=== PATIENT | male | born 1950 | race Caucasian/White ===

== ENCOUNTER 2024-08-22 19:50 | Inpatient (IN) | payer MEDICARE, OTHER, SELFPAY ==
[2024-08-22] VITALS (7 sets, daily range): BP systolic 132–159; BP diastolic 80–120; PULSE 96–124; RESP 15–27; TEMP 36.1; O2SAT 92–94
--- NOTE | ~2024-08-22 | CT_ITS ---
CT brain wo con Ordering provider: Lachlele Cox DO History: 74 years Male with . head trauma . Comparison: None. Technique: CT of the head without contrast. Radiation reduction technique utilized.The dose-length product was 983.67 mGy-cm. FINDINGS: BRAIN PARENCHYMA AND CSF SPACES: Mild leukoaraiosis and diffuse cortical atrophy. Mild atheromatous d isease. No midline shift, mass effect or hemorrhage. The brain parenchyma and CSF spaces are otherwi se normal. VISUALIZED PARANASAL SINUSES: Well aerated. MASTOIDS: Well aerated. BONES: The bones appear intact. SOFT TISSUES: Visualized nasopharynx is normal. Superficial soft tissues are normal. IMPRESSION: No acute intracranial findings. Reviewed, dictated and finalized at location A.
--- NOTE | ~2024-08-22 | XR_ITS ---
Upright portable view of the abdomen Clinical history: NG tube placement Findings: NG tube is in satisfactory position. Dilated small bowel loops suggest small bowel obstruct ion. No free air. No abnormal mass lesion or calcification is seen. Osseous structures are intact. Impression: NG tube in satisfactory position. Probable small bowel obstruction. Reviewed, dictated and finalized at [facility]. Impression: NG tube in satisfactory position. Probable small bowel obstruction.
--- NOTE | ~2024-08-22 | CT_ITS ---
EXAMINATION: CTA chest PE abdomen pel DATE: 08/22/2024 22:07 INDICATION: sob, elev trop/dimer TECHNIQUE: Computed tomography angiography (CTA) of the chest was performed with 100 mL Omnipaque-350 intravenous contrast timed to evaluate the pulmonary arteries, followed by portal venous phase imagi ng of the abdomen and pelvis. Coronal maximum intensity projection 3D-reconstructions were created by the technologist. The dose-length product (DLP) was 1263.27 mGy-cm. Automated exposure control and i terative reconstruction technique were employed. COMPARISON: X-ray chest, same date. FINDINGS: CHEST: Lung parenchyma and airways: Centrilobular nodular and peribronchovascular consolidation in the lingu la. Bilateral dependent atelectasis. Patent airways. Pleura: Moderate bilateral pleural fluid collections. Thoracic inlet, axillae and chest wall: No thyroid mass. Gynecomastia, asymmetrically larger on the r ight. Thoracic aorta: No significant dilation. No dissection. Mediastinum: Dilated central pulmonary arteries as can be seen with pulmonary arterial hypertension. Heart and pericardium: Marked cardiomegaly. Coronary artery calcifications: Mild. Thoracic bones: No acute osseous finding. Pulmonary arteries: Study quality: Motion artifact obscures the segmental and subsegmental left lower lobe pulmonary arteries. No pulmonary emboli detected in the adequately visualized vessels. ABDOMEN/PELVIS: Liver: Subcentimeter hypodensities, too small to characterize but most likely represent cysts. Biliary/Gallbladder: Gallbladder is contracted with mild pericholecystic fluid, presumably related to the ascites. No bile duct dilation. Pancreas: No mass or duct dilation. Spleen: Multiple low densities in the spleen. Adrenals:No mass. Kidneys: Multiple bilateral indeterminate density renal lesions. GI tract: Marked gastric distention. Multiple loops of proximal and mid dilated small bowel, with int erloop fluid, without pneumatosis or enhancement change. Transition point in the umbilical hernia carlie endix not confidently visualized. Diverticulosis without diverticulitis. Mesentery/Peritoneum: No mass or free air. Small volume mesenteric fluid. Retroperitoneum: No mass. Atherosclerotic calcifications of intra-abdominal arterial vessels. 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 Soft Tissues: Moderate umbilical hernia containing a loop of small bowel. Small bilateral fat and flu id containing inguinal hernias with partial herniation of a portion of large bowel in the left inguin al hernia. Mild body wall edema. Abdominopelvic bones: No acute osseous finding. IMPRESSION: Subsegmental lingular consolidation suspicious for pneumonia or aspiration. Segmental and subsegmental left lower lobe pulmonary arteries not adequately assessed due to motion. No pulmonary embolus detected in the adequately visualized pulmonary arteries. Moderate bilateral pleural effusions. Asymmetric right gynecomastia, consider nonemergent mammography and breast ultrasound. Multiple splenic hypodensities, presumably related to cysts or hemangiomas. Infection or metastatic d isease considered less likely. Bilateral indeterminate renal lesions, recommend nonemergent MRI or CT with and without contrast for further characterization. Small bowel obstruction, transition point at a moderate sized umbilical hernia that contains a loop o f small bowel. Mild ascites. Reviewed, dictated and finalized at location K. IMPRESSION: Subsegmental lingular consolidation suspicious for pneumonia or aspiration. Segmental and subsegmental left lower lobe pulmonary arteries not adequately as sessed due to motion. No pulmonary embolus detected in the adequately visualize d pulmonary arteries. Moderate bilateral pleural effusions. Asymmetric right gynecomastia, consider nonemergent mammography and breast ultr asound. Multiple splenic hypodensities, presumably related to cysts or hemangiomas. Inf ection or metastatic disease considered less likely. Bilateral indeterminate renal lesions, recommend nonemergent MRI or CT with and without contrast for further characterization. Small bowel obstruction, transition point at a moderate sized umbilical hernia that contains a loop of small bowel. Mild ascites.
--- NOTE | ~2024-08-22 | XR_ITS ---
EXAMINATION: XR chest 1V portable Exam Date/Time: 08/22/2024 21:35 CDT HISTORY: sob, chf Comparison: None. RESULT: Lines, tubes, and devices: None. Lungs and pleura: Low volumes with crowding. Indistinct vessels. Patchy mid and lower left and lower right airspace disease. Minimal left costophrenic angle blunting. Cardiomediastinal silhouette: Stable. Other: No acute osseous or upper abdominal finding. IMPRESSION: Pulmonary opacities may represent edema, probably with a component of atelectasis. Infection not excl uded. Trace left effusion. Reviewed, dictated and finalized at location K. IMPRESSION: Pulmonary opacities may represent edema, probably with a component of atelectas is. Infection not excluded. Trace left effusion.
--- OUTSIDE RECORDS SUMMARY | 2024-08-22 19:53 | XMS_ITS | Encounter Summary ---
Author Organization [facility] Healthcare Address [address] [place] [address] Care Team Providers Care Senior Wind Energy Consultant Name Role Phone Unknown, Notinfile Primary Care Provider Unavail able Reason for Visit * Reason Comments Abdominal Pain Vomiting Encounter Details Date Type Department Care Team (Late st Contact Info) Description 08/22/2024 5:19 PM CDT Emergency [facility] Emergency Department [address] [place] [address] Social History Tobacco Use Types Packs/Day Years Used Date Smoking Tobacco: Never Smokeless Tobacco: Never Alcohol Use Standard Drinks/Week Comments No 0 (1 standard drink = 0.6 oz pur e alcohol) stopped drinking Personal Safety Answer Date Recorded Have you ever been in or are you currently in a harmful physical or emotional relationship or is someone making you feel afraid or unsafe? 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 Gender Identity Not on file Sexual Orientation Not on file documented as of this encounter Last Filed Vital Signs Vital Sign Reading Time Taken Comments Blood Pressure 143/99 08/22/2024 5:30 PM CDT Pulse 53 08/22/2024 5:30 PM CDT Temperature 36.9 C (98.5 F) 08/22/2024 5:30 PM CDT Respiratory Rate 16 08/22/2024 5:30 PM CDT Oxygen Saturation 96% 08/22/2024 5:30 PM CDT Inhaled Oxygen Concentration - - Weight 77.1 kg (170 lb) 08/22/2024 5:30 PM CDT Height 167.6 cm (5' 6 ) 08/22/2024 5:30 PM CDT Body Mass Index 27.44 08/22/2024 5:30 PM CDT documented in this encounter ED Notes * Jailene Carlos RN - 08/22/2024 5:28 PM CDT Pt to ED for c/o vomiting coffee ground emesis and abdominal pain since yesterday. Pt reports he was here last week and was told he has fluid on my lungs and legs . Pt reports he has been belching alot and feels like his abdomen is bloated. Pt reports he hasn't had a good bowel movement in 4-5 days. documented in this encounter Plan of Treatment Scheduled Orders Name Type Priority Associated Diagnoses Orde r Schedule Urinalysis reflex to microscopic and culture Urine Microbiology STAT STAT for 1 Occurrences starting 08/22/2024 until 08/22/2024 CTA Abdomen Pelvis Imaging IP Routine Once f or 1 Occurrences starting 08/22/2024 until 08/22/2024 Pro B-type natriuretic peptide Lab STAT STAT for 1 Occurrences starting 08/22/2024 until 08/22/2024 documented as of this encounter Procedures Procedure Name Priority Date/Time Associated Diagnosis Comments EGFR STAT 08/22/2024 5:36 PM CDT CBC WITH AUTO DIFFERENTIAL STAT 08/22/2024 5:36 PM CDT MANUAL DIFFERENTIAL STAT 08/22/2024 5 :36 PM CDT LIPASE STAT 08/22/2024 5:36 PM CDT COMPREHENSIVE METABOLIC PANEL STAT 08/22/2024 5:36 PM CDT documented in this encounter Results * (ABNORMAL) Manual Differential (08/22/2024 5:36 PM CDT) Differential Manual Cells Counted 100 [facility] ([place]) Neutrophil abs 9.0(H) 1.5 - 6.5 K/cumm [facility] ([place]) Lymphocyte abs 3.4(H) 0.8 - 3.3 K/cumm [facility] ([place]) Monocyte abs 1.1(H) 0.2 - 0.8 K/cumm [facility] ([place]) Neutrophil pct 67.0 % [facility] ([place]) Comment: Interpretive Data Percent cell count reference ranges are not reported, since discordance with absolute values may lead to misinterpretation of CBC data. Current Interpretive Data was last revised on 2017. Lymphocyte pct 4.0 % [facility] ([place]) Comment: Interpretive Data Percent cell count reference ranges are not reported, since discordance with absolute values may lead to misinterpretation of CBC data. Current Interpretive Data was last revised on 2017. Monocyte pct 8.0 % [facility] ([place]) Comment: Interpretive Data Percent cell count reference ranges are not reported, since discordance with absolute values may lead to misinterpretation of CBC data. Current Interpretive Data was last revised on 2017. Variant lymph pct 21.0(H) 0.0 - 0.0 % [facility] ([place]) RBC morphology Consistent with RBC Indicies [facility] ([place]) Platelet estimate Adequate CE [facility] ([place]) Blood 08/22/2024 5:36 PM CDT 08/22/2024 5:40 PM CDT us Timo Holder MD LAB BLOOD ORDERABLES Final Result [facility] ([place]) 1 [facility] [place] [address] * eGFR (08/22/2024 5:36 PM CDT) eGFR >90 >=60 mL/min/1. 73 m2 Comment: Interpretive Data Reference Interval Normal >/= 90 mL/min/1.73m2 Mildly decreased* 60 - 89 mL/min/1.73m2 Mildly to moderately decreased 45 - 59 mL/min/1.73m2 Moderately to severely decreased 30 - 44 mL/min/1.73m2 Severely decreased 15 - 29 mL/min/1.73m2 Kidney Failure < 15 mL/min/1.73m2 *Relative to young adult level Estimated glomerular filtration rate is determined by the 2020 CKD-EPI equation recommended by the National Kidney Foundation (A Unifying Approach to GFR Estimation: Recommendations of the NKF-ASK Task Force on Reassessing the Inclusion of Race in Diagnosing Kidney Disease, JASN 2020). The CKD-EPI equation should not be used for patients with unstable renal function and has not been validated in children and those over 70. Current interpretive data was last reviewed 2021. Blood 08/22/2024 5:36 PM CDT 08/22/2024 5:40 PM CDT Timo Holder MD LAB BLOOD ORDERABLES Final Result [facility] ([place]) [address] [facility] [place] [address] * Lipase (08/22/2024 5:36 PM CDT) Lipase 95 10 - 99 Units/L Blood Venous blood specimen / Unknown 08/22/2024 5:36 PM CDT 08/22/2024 5:40 PM CDT Timo Holder MD LAB BLOOD ORDERABLES Final Result Performing Organization Address City/[facility]/ZIP Co de Phone Number [facility] ([place]) [address] [facility] [place] [address] * Comprehensive metabolic panel (08/22/2024 5:36 PM CDT) Sodium 141 135 - 145 mmol/L Potassium, pl 4.6 3.3 - 4.9 mmol/L [facility] Chloride 99 97 - 110 mmol/L [facility] CO2 31 22 - 32 mmol/L [facility]) Anion gap 11 2 - 15 mmol/L [facility]) BUN 19 6 - 25 mg/dL [facility]) Creatinine 0.82 0.80 - 1.30 mg/dL [facility]) Glucose 98 70 - 199 mg/dL [facility] ([place]) Comment: Interpretive Data Fasting glucose >/= 126 mg/dl is diagnostic for diabetes. Fasting is defined as no caloric intake for at least 8 hours. Fasting glucose between 100 mg/dl to 125 mg/dl is diagnostic of prediabetes. In a patient with classic symptoms of hyperglycemia or hyperglycemic crisis, a random glucose >/= 200 mg/dl is diagnostic for diabetes. In the absence of unequivocal hyperglycemia, results should be confirmed by repeat testing. The classification and Diagnosis of Diabetes Diabetes Care 2021; 46: S19-S40. Current interpretive data was last revised 2022. Calcium 9.3 8.5 - 10.3 mg/dL [facility]) Bilirubin, total 0.9 0.1 - 1.2 mg/dL [facility] ([place]) Protein, pl 7.2 6.5 - 8.5 g/dL [facility] ([place]) Albumin 3.7 3.5 - 5.0 g/dL [facility] ([place]) Alk phos 59 40 - 130 Units/L [facility]) ALT 8 7 - 55 Units/L [facility]) AST 27 10 - 50 Units/L [facility] ([place]) Comment:Slightly Hemolyzed S pecimen Blood 08/22/2024 5:3 6 PM CDT 08/22/2024 5:40 PM CDT us Timo Holder MD LAB BLOOD ORDERABLES Final Result [facility] 1 [facility] [place] [address] * (ABNORMAL) CBC with auto differential (08/22/2024 5:36 PM CDT) WBC 13.4(H) 3.8 - 9.9 K/cumm Hgb 15.7 13.0 - 17.5 g/dL [facility]) Hct 48.9 38.9 - 50.3 % [facility]) Plt 282 150 - 400 K/cumm [facility]) MPV 9.8 9.1 - 12.3 fL [facility]) RBC 5.61 4.30 - 5.80 M/cumm [facility] ([place]) MCV 87.2 81.3 - 96.4 fL [facility] ([place]) MCH 28.0 27.1 - 33.3 pg [facility] ([place]) MCHC 32.1(L) 32.3 - 35.7 g/dL [facility] ([place]) RDW CV 13.9 11.1 - 14.9 % [facility] ([place]) RDW SD 43.9 35.7 - 48.1 fL [facility] ([place]) NRBC abs 0.00 0.00 - 0.01 K/cumm [facility] ([place]) Blood Venous blood specimen / Unknown 08/22/2024 5:36 PM CDT 08/22/2024 5:40 PM CDT Timo Holder MD LAB BLOOD ORDERABLES Final Result Performing Organization Address City/State/[facility] Co de Phone Number [facility] ([place]) 1 [facility] [place] [address] documented in this encounter Visit Diagnoses Not on filedocumented in this encounter Orders Nursing Count Last Ordered Date First Orde red Date MISCELLANEOUS NURSING CARE ORDER (SPECIFY) 1 08/22/2024 IV Count Last Ordered Date First Orde red Date SALINE LOCK IV 1 08/22/2024 documented in this encounter Care Teams Senior Wind Energy Consultant Relationship Specialty Start Date End Date Unknown, Notinfile PCP - General 07/09/23 documented as of this encounter
--- OUTSIDE RECORDS SUMMARY | 2024-08-22 19:53 | XMS_ITS | Continuity of Care Document ---
Author Organization [facility] Address [address] [place] [address] Phone Care Team Providers Care Transfusion Aide Name Role Phone Screen, Clinician Unavailable Unavailable Procedures Procedure Date Durable medical equipment misc 19 Glove - Edema 08/16 Therapeutic Activities Neuromuscular Re-Ed Hot or Cold Pack Therapeutic Activities Neuromuscular Re-Ed Hot or Cold Pack Therapeutic Activities Neuromuscular Re-Ed Hot or Cold Pack Therapeutic Activities Neuromuscular Re-Ed Hot or Cold Pack Therapeutic Activities Manual Therapy Hot or Cold Pack Progress Note Therapeutic Exercise Therapeutic Activities Neuromuscular Re-Ed Hot or Cold Pack Therapeutic Exercise Therapeutic Activities Neuromuscular Re-Ed Hot or Cold Pack Therapeutic Exercise Therapeutic Activities Neuromuscular Re-Ed Hot or Cold Pack Therapeutic Exercise Therapeutic Activities Neuromuscular Re-Ed Hot or Cold Pack Therapeutic Exercise Therapeutic Activities Neuromuscular Re-Ed Hot or Cold Pack Therapeutic Exercise Therapeutic Activities Neuromuscular Re-Ed Hot or Cold Pack Therapeutic Exercise Therapeutic Activities Neuromuscular Re-Ed Hot or Cold Pack Therapeutic Exercise Therapeutic Activities Neuromuscular Re-Ed Hot or Cold Pack Therapeutic Exercise Therapeutic Activities Neuromuscular Re-Ed Hot or Cold Pack Therapeutic Exercise Therapeutic Activities Neuromuscular Re-Ed Hot or Cold Pack Therapeutic Exercise Therapeutic Activities Neuromuscular Re-Ed Hot or Cold Pack Therapeutic Exercise Therapeutic Activities Neuromuscular Re-Ed Hot or Cold Pack Therapeutic Exercise Therapeutic Activities Manual Therapy Hot or Cold Pack Therapeutic Exercise Therapeutic Activities Manual Therapy Hot or Cold Pack Therapeutic Exercise Therapeutic Activities Manual Therapy Hot or Cold Pack Therapeutic Exercise Therapeutic Activities Manual Therapy Hot or Cold Pack Therapeutic Exercise Therapeutic Activities Manual Therapy Hot or Cold Pack Glove - Edema 3/4 OT Evaluation Moderate Complexity Therapeutic Exercise Hot or Cold Pack Orthotic Mgmt and Training Wrist Immobilization Advance Directives Directive Yes / No Effective Date File Name No Information Encounters Encounter Description Practice Location Reason(s) For Visit Diagnoses Date Provider Providers Copied on Encounter [facility], [place], [place], [id number], [place] tel:[phone] [place] No Information Jan-0 9 Screen Clinician. . Referring Provider: Physician Calin. [facility], [place], [place], [id number], [place] tel:[phone] [place] No Information 9 Screen Clinician. . Referring Provider: Physician Calin. [facility], [place], [place], [id number], [place] tel:[phone] [place] Pain in left wristStiffness of left wrist, not elsewhere classifiedEffusion, left wristWeaknessPrimar y osteoarthritis, unspecified wrist Sep-0 9 Stern Katherin. [address] [place] [address], [address], [place], [place], [facility], [place]. tel:[phone] Referring Provider: Kirby Rm, [address] [address], [place], [address]. tel:[phone] [facility], [place], [place], [address], [place] tel:[phone] [place] Pain in left wristStiffness of left wrist, not elsewhere classifiedEffusion, left wristWeaknessPrimar y osteoarthritis, unspecified wrist Sep-0 9 Stern Katherin. [address] [place] [address], [address], [place], [place], [facility], [place]. tel:[phone] Referring Provider: Kirby Rm, [address] [facility] [address], [place], [address]. tel:[phone] [facility], [place], [place], [address], [place] tel:[phone] [place] Pain in left wristStiffness of left wrist, not elsewhere classifiedEffusion, left wristWeaknessPrimar y osteoarthritis, unspecified wrist Aug- 9 Stern Katherin. [address] [place] [address], [address], [place], [address], [place]. tel:[phone] Referring Provider: Kirby Rm, [address] [facility] [address] [facility], [place], [address]. tel:[phone] [facility], [address], [place], [place], [address], [place] tel:[phone] [place] Pain in left wristStiffness of left wrist, not elsewhere classifiedEffusion, left wristWeaknessPrimar y osteoarthritis, unspecified wrist Mar-2 7-201 9 Stern Katherin. [address] [facility], [address], [place], [address], [place]. tel:[phone] Referring Provider: Kirby Rm, [address] [address], [place], [address]. tel:[phone] [facility] [address], [place], [place], [id number], [place] tel:[phone] [place] Pain in left wristStiffness of left wrist, not elsewhere classifiedEffusion, left wristWeaknessPrimar y osteoarthritis, unspecified wrist Mar-1 9-201 9 Stern Katherin. [address] [place] [address], [address], [place], [address], [place]. tel:[phone] Referring Provider: Kirby Rm, [address] [facility] [address] [facility], [place], [address]. tel:[phone] [facility], [place], [place], [id number], [place] tel:[phone] [place] Pain in left wristStiffness of left wrist, not elsewhere classifiedEffusion, left wristWeaknessPrimar y osteoarthritis, unspecified wrist Mar-1 8-201 9 Stern Katherin. [address] [place] [address], [address], [place], [address], [place]. tel:[phone] Referring Provider: Kirby Rm, [address] [facility] [address], [place], [address]. tel:[phone] [facility], [place], [place], [address], [place] tel:[phone] [place] Pain in left wristStiffness of left wrist, not elsewhere classifiedEffusion, left wristWeaknessPrimar y osteoarthritis, unspecified wrist Mar-1 5-201 9 Stern Katherin. [address] [place] [address], [address], [place], [address], [place]. tel:[phone] Referring Provider: Kirby Rm, [address] [facility] [address], [place], [address]. tel:[phone] [facility], [address], [place], [place], [id number], [place] tel:[phone] [place] Pain in left wristStiffness of left wrist, not elsewhere classifiedEffusion, left wristWeaknessPrimar y osteoarthritis, unspecified wrist Mar-1 3-201 9 Stern Katherin. [address] [place] [address], [address], [place], [address], [place]. tel:[phone] Referring Provider: Kirby Rm, [address] [facility] [address], [place], [address]. tel:[phone] [facility], [address], [place], [place], [id number], [place] tel:[phone] [place] Pain in left wristStiffness of left wrist, not elsewhere classifiedEffusion, left wristWeaknessPrimar y osteoarthritis, unspecified wrist Mar-1 1-201 9 Stern Katherin. [address] [place] [address], [address], [place], [address], [place]. tel:[phone] Referring Provider: Kirby Rm, [address] [facility] [address], [place], [address]. tel:[phone] [facility], [place], [place], [id number], [place] tel:[phone] [place] Pain in left wristStiffness of left wrist, not elsewhere classifiedEffusion, left wristWeaknessPrimar y osteoarthritis, unspecified wrist Mar-0 8-201 9 Stern Katherin. [address] [place] [address], [address], [place], [address], [place]. tel:[phone] Referring Provider: Kirby Rm, [address] [facility] [address] [facility], [place], [address]. tel:[phone] [facility] [address], [place], [place], [address], [place] tel:[phone] [place] Pain in left wristStiffness of left wrist, not elsewhere classifiedEffusion, left wristWeaknessPrimar y osteoarthritis, unspecified wrist Mar-0 6-201 9 Stern Katherin. [address] [place] [address], [address], [place], [address], [place]. tel:[phone] Referring Provider: Kirby Rm, [address] [address], [place], [address]. tel:[phone] [facility] [address], [place], [place], [address], [place] tel:[phone] [place] Pain in left wristStiffness of left wrist, not elsewhere classifiedEffusion, left wristWeaknessPrimar y osteoarthritis, unspecified wrist Mar-0 4-201 9 Stern Katherin. [address] [place] [address], [address], [address], [place]. tel:[phone] Referring Provider: Kirby Rm, [address] [address], [place], [address]. tel:[phone] [facility] [address], [place], [place], [id number], [place] tel:[phone] [place] Pain in left wristStiffness of left wrist, not elsewhere classifiedEffusion, left wristWeaknessPrimar y osteoarthritis, unspecified wrist Mar-0 1-201 9 Stern Katherin. [address] [place] [address], [address], [place], [address], [place]. tel:[phone] Referring Provider: Kirby Rm, [address] [address], [place], [address]. tel:[phone] [facility], [place], [place], [address], [place] tel:[phone] [place] Pain in left wristStiffness of left wrist, not elsewhere classifiedEffusion, left wristWeaknessPrimar y osteoarthritis, unspecified wrist Feb-2 7-201 9 Stern Katherin. [address] [place] [address], [address], [place], [place], [facility], [place]. tel:[phone] Referring Provider: Kirby Rm, [address] [address], [place], [address]. tel:[phone] [facility] [address], [place], [place], [address], [place] tel:[phone] [place] Pain in left wristStiffness of left wrist, not elsewhere classifiedEffusion, left wristWeaknessPrimar y osteoarthritis, unspecified wrist Feb-2 5-201 9 Stern Katherin. [address] [place] [address], [address], [place], [place], [facility], [place]. tel:[phone] Referring Provider: Kirby Rm, [address] [facility] [address] [facility], [place], [address]. tel:[phone] [facility] [address], [place], [place], [address], [place] tel:[phone] [place] Pain in left wristStiffness of left wrist, not elsewhere classifiedEffusion, left wristWeaknessPrimar y osteoarthritis, unspecified wrist Feb-2 1-201 9 Stern Katherin. [address] [place] [address], [address], [place], [address], [place]. tel:[phone] Referring Provider: Kirby Rm, [address] [facility] [address], [place], [address]. tel:[phone] [facility] [address], [place], [place], [address], [place] tel:[phone] [place] Pain in left wristStiffness of left wrist, not elsewhere classifiedEffusion, left wristWeaknessPrimar y osteoarthritis, unspecified wrist Feb-2 0-201 9 Stern Katherin. [address] [place] [address], [address], [place], [address], [place]. tel:[phone] Referring Provider: Kirby Rm, [address] [facility] [address] [facility], [place], [address]. tel:[phone] [facility] [address], [place], [place], [address], [place] tel:[phone] [place] Pain in left wristStiffness of left wrist, not elsewhere classifiedEffusion, left wristWeaknessPrimar y osteoarthritis, unspecified wrist 9 Stern Katherin. [address] [facility], [address], [place], [address], [place]. tel:[phone] Referring Provider: Kirby Rm, [address] [address], [place], [address]. tel:[phone] [facility] [address], [place], [place], [address], [place] tel:[phone] [place] Pain in left wristStiffness of left wrist, not elsewhere classifiedEffusion, left wristWeakness 9 Stern Katherin. [address] [place] [address], [address], [place], [address], [place]. tel:[phone] Referring Provider: Kirby Rm, [address] [address], [place], [address]. tel:[phone] [facility] [address], [place], [place], [address], [place] tel:[phone] [place] Pain in left wristStiffness of left wrist, not elsewhere classifiedEffusion, left wristWeakness 9 Stern Katherin. [address] [facility], [address], [place], [address], [place]. tel:[phone] Referring Provider: Kirby Rm, [address] [facility] [address] [facility], [place], [address]. tel:[phone] [facility], [place], [place], [address], [place] tel:[phone] [place] Pain in left wristStiffness of left wrist, not elsewhere classifiedEffusion, left wristWeakness Feb-1 1-201 9 Jarred Pandey. [address] [place] [address], [address], [facility], . tel:[phone] Referring Provider: Kirby Rm, [address], [facility]. tel:[phone], [id number], tel:[phone] [place] Pain in left wristStiffness of left wrist, not elsewhere classifiedEffusion, left wristWeakness Feb-0 8-201 9 Jarred Pandey. [address] [place] [address], [address], [facility], [place]. tel:[phone] Referring Provider: Kirby Rm, [address], [facility]. tel:[phone], [place], [address], tel:[phone] [place] Pain in left wristStiffness of left wrist, not elsewhere classifiedEffusion, left wristWeakness Feb-0 6-201 9 Jarred Pandey. [address] [place] [address], [facility], . tel:[phone] Referring Provider: Kirby Rm, [address], [facility]. tel:[phone] Family History Family Member Type Diagnosis Age At Onset No Information Payers Payer name Insurance type Covered democrat ID Authorjamiea arthur(s) [employer] 00 Social History Type Description Quantity Date Captured Comments Sex Male Smoking Status No Information Chief Complaint And Reason For Visit No Information Reason For Referral Reason For Referral No Information History Of Present Illness Encounter Date Complaint History Of Prese nt Illness No Information Functional Status Date Functional Assessmen t No Information Instructions Date Instruction Additional Infor mation No Information Assessments Type Assessment Date No Information Patient Care Teams Name Effective Dates (start - stop) Status Members No Information
--- OUTSIDE RECORDS SUMMARY | 2024-08-22 19:53 | XMS_ITS | Clinical Summary ---
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 Active rosuvastatin (CRESTOR) 5 MG Tablet Take 5 mg by mouth daily. Active Active Problems Problem Noted Date Diagnosed Date Scapholunate ligament injury , no instability, left, initial encounter 12/28/2017 Immunizations Immunization Administration Dates Next Due Covid-19 Vaccine, Vector-nr, Rs-ad26, Pf, 0.5 Ml ([employer]) 08/23/2020 Hepatitis A And Hepatitis B Vaccine 05/27/2013,0 12/22/2012,11/23/2012 Hepatitis B Vaccine 04/23/2018,03/26/2018 Influenza Vaccine greater than 3 yrs 03/23/2018, 03/20/2017 Pneumococcal Vaccine - 13 Valent 03/05/2015 Pneumococcal Vaccine Adult - 23 Valent 7 TDAP Vaccine 02/02/2012 Zoster Vaccine, live 11/03/2013 Family History Medical History Relation Name Comments No Known Problems Brother 1 No Known Problems Brother 2 Passed in car accident age 3 Alcohol Abuse Father Alzheimer's Disease Mother No Known Problems Sister 1 No Known Problems Sister 2 Breast Cancer Sister 3 No Known Problems Sister 4 passed in car accident age 4 Relation Name Status Comments Brother 1 Alive Brother 2 Father Mother Sister 1 Alive Sister 2 Alive Sister 3 Sister 4 Social History Tobacco Use Types Packs/Day Years Used Date Smoking Tobacco: Former Cigarettes 0.3 0.2 Smokeless Tobacco: Never Tobacco Cessation:Counseling Given: Yes Alcohol Use Standard Drinks/Week Comments No 0 (1 standard drink = 0.6 oz pur e alcohol) PHQ-2 Answer Date Recorded PHQ-2 Score 0 2019 Sexually Active Control Partners Comments Yes Condom Female Sex and Gender Information Value Date Recorded Sex Assigned at Not on file Legal Sex Male 10:25 PM CDT Gender Identity Not on file Sexual Orientation Not on file Occupation Industry Job Start Date Job End Date Retired Not on file Not on file Not on file Last Filed Vital Signs Vital Sign Reading Time Taken Comments Blood Pressure 122/68 04/07/2018 2:49 PM CDT Pulse 73 04/07/2018 2:49 PM CDT Temperature 36.7 C (98 F) 04/07/2018 2:49 PM CDT Respiratory Rate 14 04/07/2018 2:49 PM CDT Oxygen Saturation 95% 04/07/2018 2:49 PM CDT Inhaled Oxygen Concentration - - Weight 89.8 kg (198 lb) 04/07/2018 2:49 PM CDT Height 167.6 cm (5' 6 ) 04/07/2018 2:49 PM CDT Body Mass Index 31.96 04/07/2018 2:49 PM CDT Plan of Treatment Health Maintenance Due Date Last Done Comments Hepatitis C Virus (HCV) Screening 1949 Colonoscopy 1994 Colorectal Cancer Screening 1994 Cologuard 1999 Immunochemical Fecal Occult Blood 1999 Zoster Immunization (2 of 3) 12/29/2013 11/03/2013 Respiratory Syncytial Virus (RSV) Immunization (Adult) (1 - 1-dose 75+ series) 02/11/2024 Influenza Immunization (#1) 02/14/202407/2019, 03/23/2018, 03/20/2017 SARS-COV-2 Immunization ( - season) 2024 08/23/2020 DTaP/Tdap/Td Immunization Discontinued 02/02/2012 Pneumococcal Immunization (50+ years) Completed 01/22/2017, 03/05/2015 Pneumococcal Immunization Combined Discontinued 01/22/2017, 03/05/2015 Hepatitis B Immunization Completed 018, 03/26/2018, 05/27/2013, Additional history exists Meningococcal Immunization (ACWY) Aged Out No longer eligible based on patient's age to complete this topic Rotavirus Immunization Aged Out No lo nger eligible based on patient's age to complete this topic Insurance MEDICARE C [employer] Care Teams Newspaper Distributor Supervisor Relationship Specialty Start Date End Date Provider, None [place] PCP - General 05/10/21 Chris Tolentino MD Consulting Physician Orthopaedic Sports Medicine 04/07/18 Terra Pineda MD [address] [address] Consulting Physician Internal Medicine 04/07/18
--- OUTSIDE RECORDS SUMMARY | 2024-08-22 19:53 | XMS_ITS | Referral Summary ---
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[employer] Name Role Phone Unknown, Notinfile Primary Care Provider Unavail able Encounters Date Type Department Care Team Description 08/22/2024 5:19 PM CDT [facility] Emergency Department [address] [place] [address] 08/15/2024 8:47 AM SEED EXPERT - 08/15/2024 3:05 PM SEED EXPERT [facility] Emergency Department [address] [place] [address] Gayla Malcolm MD Atrial fibrillation with controlled ventricular rate (HCC) (Primary Dx); Acute on chronic combined systolic and diastolic congestive heart failure (HCC) Discharge Disposition: Discharge to home or self care 07/13/2024 Telephone [facility] [address] [place] [id number] Chris Tolentino MD from Last 3 Months Allergies No known active allergies Medications diazePAM (VALIUM) 10 mg tabletIndicatio ns:Sedation Take 10 mg by mouth nightly as needed for anxiety. Active rosuvastatin (CRESTOR) 5 mg tabletIndicatio ns:preventive Take 5 mg by mouth daily. Active oxyCODONE-aceta minophen (PERCOCET) 5-325 mg per tabletIndicatio ns:Pain Take 1 tablet by mouth every 6 (six) hours as needed for pain. 20 tablet 9 Active ibuprofen (ADVIL,MOTRIN) 600 mg tablet Take 1 tablet (600 mg total) by mouth every 6 (six) hours as needed for pain. 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 Scapholunate ligament injury , no instability, left, initial encounter 12/28/2017 Social History Tobacco Use Types Packs/Day Years [...] on file Legal Sex Male 1:47 AM SEED EXPERT Gender Identity Not on file Sexual Orientation Not on file Last Filed Vital Signs [...] Mass Index 27.44 08/22/2024 5:30 PM CDT Plan of Treatment Not on file Medical Devices Implanted Type Area Corporate Auditor Device Identifier Shelf Expiration Date Model / Serial / Lot evidanza 8600-5x05 Graftjacket [id number] Regenerative Nonmesh Standard Graft - [id number] Implanted:Qty: 1 on 07/06/2018 by Kirby Rm III, MD at [facility] Left: Wrist evidanza 01/13/2020 8600-5X05 / / [id number] Procedures Procedure Name Priority Date/Time Associated Diagnosis Comments MANUAL DIFFERENTIAL STAT 08/22/2024 5 :36 PM CDT EGFR STAT 08/22/2024 5:36 PM CDT LIPASE STAT 08/22/2024 5:36 PM CDT COMPREHENSIVE METABOLIC PANEL STAT 08/22/2024 5:36 PM CDT CBC WITH AUTO DIFFERENTIAL STAT 08/22/2024 5:36 PM CDT TROPONIN T HIGH-SENSITIVITY 2-HOUR Timed 08/15/2024 11:29 AM SEED EXPERT URINALYSIS AND REFLEX TO MICROSCOPIC AND CULTURE STAT 08/15/2024 11:29 AM SEED EXPERT EGFR STAT 08/15/2024 10:37 AM SEED EXPERT HEPATIC FUNCTION PANEL STAT 10:37 AM SEED EXPERT PRO B-TYPE NATRIURETIC PEPTIDE Add-On 08/15/2024 10:37 AM SEED EXPERT CREATININE STAT 08/15/2024 10:37 AM SEED EXPERT CBC WITHOUT DIFFERENTIAL STAT 08/15/2024 10:37 AM SEED EXPERT TROPONIN T HIGH-SENSITIVITY 2-HOUR Timed 08/15/2024 10:37 AM SEED EXPERT EGFR STAT 08/15/2024 9:00 AM SEED EXPERT APTT STAT 08/15/2024 9:00 AM SEED EXPERT PROTIME-INR STAT 08/15/2024 9:00 AM SEED EXPERT DIFFERENTIAL AUTO STAT 08/15/2024 9:0 0 AM SEED EXPERT TROPONIN T HIGH-SENSITIVITY SERIES (BASELINE, 2HR, 4HR, 6HR) STAT 08/15/2024 9:00 AM SEED EXPERT CBC WITH AUTO DIFFERENTIAL STAT 08/15/2024 9:00 AM SEED EXPERT COMPREHENSIVE METABOLIC PANEL STAT 08/15/2024 9:00 AM SEED EXPERT INFLUENZA A/B, RSV, AND COVID-19 PCR STAT 08/15/2024 9:00 AM SEED EXPERT XR CHEST PA LATERAL 2 VIEWS ED 08/15/2024 8:49 AM SEED EXPERT ECG 12-LEAD STAT 08/15/2024 8:26 AM SEED EXPERT COLONOSCOPY 07/16/2017 7:32 AM SEED EXPERT from Last 3 Months or Most Recently Relevant to Health Maintenance Results * eGFR (08/22/2024 5:36 PM CDT) eGFR [...] ORDERABLES Final Result [facility] ([place]) [address] [place] [address] * (ABNORMAL) CBC with auto differential (08/22/2024 5:36 PM CDT) WBC 13.4(H) 3.8 - 9.9 K/cumm Hgb 15.7 13.0 - 17.5 g/dL [facility] ([place]) Hct 48.9 38.9 - 50.3 % [facility] ([place]) Plt 282 150 - 400 K/cumm [facility] ([place]) MPV 9.8 9.1 - 12.3 fL [facility] ([place]) RBC 5.61 4.30 - 5.80 M/cumm [facility] ([place]) MCV 87.2 81.3 - 96.4 fL [facility] ([place]) MCH 28.0 27.1 - 33.3 pg [facility] ([place]) MCHC 32.1(L) 32.3 - 35.7 g/dL [facility] ([place]) RDW CV 13.9 11.1 - 14.9 % [facility] ([place]) RDW SD 43.9 35.7 - 48.1 fL [facility] ([place]) NRBC abs 0.00 0.00 - 0.01 K/cumm [facility] ([place]) Blood Venous blood specimen / Unknown 08/22/2024 5:36 PM CDT 08/22/2024 5:40 PM CDT Timo Holder MD LAB BLOOD ORDERABLES Final Result [facility] ([place]) [address] [facility] [facility] [place] [address] * (ABNORMAL) Manual Differential (08/22/2024 5:36 PM [...] ([place]) RBC morphology Consistent with RBC Indicies [facility] ([place]) Platelet estimate Adequate [facility] ([place]) Blood 08/22/2024 5:36 PM CDT 08/22/2024 5:40 PM CDT Timo Holder MD LAB BLOOD ORDERABLES Final Result [facility] ([place]) [address] [facility] [place] [address] * Lipase (08/22/2024 5:36 PM CDT) Lipase 95 10 - 99 Units/L Blood Venous blood specimen / Unknown 08/22/2024 5:36 PM CDT 08/22/2024 5:40 PM CDT Timo Holder MD LAB BLOOD ORDERABLES Final Result Performing Organization Address City/[facility]/ZIP Co de Phone Number [facility] ([place]) [address] [facility] [place] [address] * Comprehensive metabolic panel (08/22/2024 5:36 PM [...] ([place]) Comment:Slightly Hemolyzed S pecimen Blood 08/22/2024 5:36 PM CDT 08/22/2024 5:40 PM CDT us Timo Holder MD LAB BLOOD ORDERABLES Final Result Performing Organization Address [facility] Co de Phone Number [facility] [address] [facility] [place] [address] * (ABNORMAL) Troponin T high-sensitivity 2-hour (08/15/2024 11:29 AM SEED EXPERT) Trop T hs 26(H) <=22 ng/L Comment: Interpretive Data For further hscTnT resources including the diagnostic algorithm and an aid in interpretation, copy and paste this link: https://nrl.testcatalog.org/show/hsTrop Current Interpretive Data last revised 2020. Trop T hs delta See Comment ng/L [facility] ([place]) Comment:unable to calculate Trop T hs pct delta See Comment % [facility] ([place]) Comment:unable to calculate Trop T hs interp See Comment [facility] ([place]) Comment:unable to calculate Blood 08/15/2024 11:2 9 AM SEED EXPERT 08/15/2024 11:31 AM SEED EXPERT us Gayla Malcolm MD LAB BLOOD ORDERABLES Alanna l Result Performing Organization Address [facility] Co de Phone Number [facility] [address] [facility] [place] [address] * Urinalysis reflex to microscopic and culture Urine (08/15/2024 11:29 AM SEED EXPERT) Color, ur Straw Yellow Clarity, ur Clear Clear [facility] ([place]) Specific gravity, ur 1.008 1.003 - 1.030 [facility] ([place]) pH, urine 6.5 [facility] ([place]) Comment: Interpretive Data U rine pH is affected by diet, medications, systemic acid-base disturbances, and renal tubular function. pH may affect urinary stone formation. For example, urine pH below 6.0 may help reduce the tendency for calcium phosphate stones and pH greater than 6.0 may reduce the tendency for uric acid stone formation. Source: [facility] [place] Current Interpretive Data was last revised on 2017 Protein, ur ql Negative Negative [facility] ([place]) Glucose, ur ql Negative Negative [facility] ([place]) Ketones, ur Negative Negative [facility] ([place]) Bilirubin, ur Negative Negative [facility] ([place]) Blood, ur Negative Negative [facility] ([place]) Urobilinogen, ur <2.0 <2.0 mg/dL [facility] ([place]) Nitrite, ur Negative Negative [facility] ([place]) Leukocyte esterase, ur Negative Negative [facility] ([place]) UA reflex comment Reflex conditions for microscopic UA and culture not met. [facility] ([place]) Urine 08/15/2024 11:2 9 AM SEED EXPERT 08/15/2024 11:31 AM SEED EXPERT Gayla Malcolm MD LAB MICROBIOLOGY - GENERA L ORDERABLES Final Result [facility] ([place]) [address] [facility] [place] [address] * (ABNORMAL) Troponin T high-sensitivity 2-hour (08/15/2024 10:37 AM SEED EXPERT) Trop T hs 26(H) <=22 ng/L Comment: Interpretive Data For further hscTnT resources including the diagnostic algorithm and an aid in interpretation, copy and paste this link: https://nrl.testcatalog.org/show/hsTrop Current Interpretive Data last revised 2020. Trop T hs interp See Comment [facility] [place]) Comment:Delta calculation an d interpretation not available. Blood 08/15/2024 10:3 7 AM SEED EXPERT 08/15/2024 10:38 AM SEED EXPERT Gayla Malcolm MD LAB BLOOD ORDERABLES Alanna l Result Performing Organization Address City/[facility]/ZIP Co de Phone Number [facility]) [address] [place] [address] * eGFR (08/15/2024 10:37 AM SEED EXPERT) eGFR >90 >=60 mL/min/1. 73 m2 Comment: [...] of Race in Diagnosing Kidney Disease, JASN 202). The CKD-EPI equation should not be used for patients with unstable renal function and has not been validated in children and those over 70. Current interpretive data was last reviewed 2021. Blood 08/15/2024 10:3 7 AM SEED EXPERT 08/15/2024 10:39 AM SEED EXPERT Gayla Malcolm MD LAB BLOOD ORDERABLES Alanna l Result [facility] ([place]) [address] [place] [address] * (ABNORMAL) Pro B-type natriuretic peptide (08/15/2024 10:37 AM SEED EXPERT) NT-proBNP 4,819(H) <=450 pg/mL Comment: Interpretive Comments: A. Dyspnea in Acute Care Setting All Ages: < 300 pg/ml, acute heart failure unlikely. < 50 yrs: 300 - 450 pg/ml, further investigation warranted. > 450 pg/ml, acute heart failure likely. 50 - 74 yrs: 300 - 900 pg/ml, further investigation warranted. > 900 pg/ml, acute heart failure likely . > or = 75 yrs: 450 - 1800 pg/ml, further investigation warranted. > 1800 pg/ml, acute heart failure likely. B. Non-acute Setting < 75 yrs < 125 pg/ml, rules out heart failure. > or = 125 pg/ml, further investigation warranted. > or = 75 yrs < 450 pg/ml, rules out heart failure. > or = 450 pg/ml, further investigation warranted. - Knowledge of each individual patient's NT-proBNP range may be more useful than using similar cut-points for every patient. Please note that marked elevations in NT-proBNP levels may be observed in state other than Left Ventricular Congestive Failure, including: acute coronary syndromes, right heart strain/failure (including pulmonary embolism and cor pulmonale), critical illness, renal failure, as well as advanced age. - References: 1. Alfredo JL et.al. Eur Heart J. 2006:27:330-337. 2. Molly RW, Brenda MARR. J. AM Jesus Cardiol: Cardiovasc Imag. 2009;2: 216- 225. Interpretive Data Last Revised Date: 2018. Blood 08/15/2024 10:3 7 AM SEED EXPERT 08/15/2024 10:39 AM SEED EXPERT us Gayla Malcolm MD LAB BLOOD ORDERABLES Edit ed Result - Final [facility] [place]) [address] [place] [address] * (ABNORMAL) CBC without differential (08/15/2024 10:37 AM SEED EXPERT) WBC 8.8 3.8 - 9.9 K/cumm Hgb 12.3(L) 13.0 - 17.5 g/dL [facility] ([place]) Hct 40.0 38.9 - 50.3 % [facility] ([place]) Plt 209 150 - 400 K/cumm [facility] ([place]) MPV 9.8 9.1 - 12.3 fL [facility] ([place]) RBC 4.40 4.30 - 5.80 M/cumm [facility] ([place]) MCV 90.9 81.3 - 96.4 fL [facility] ([place]) MCH 28.0 27.1 - 33.3 pg [facility] ([place]) MCHC 30.8(L) 32.3 - 35.7 g/dL [facility] ([place]) RDW CV 14.2 11.1 - 14.9 % [facility]) RDW SD 47.1 35.7 - 48.1 fL [facility] ([place]) NRBC abs 0.00 0.00 - 0.01 K/cumm [facility] ([place]) Blood 08/15/2024 10:3 7 AM SEED EXPERT 08/15/2024 10:38 AM SEED EXPERT Narrative [facility] ([place]) - 08/15/2024 10:41 AM SEED EXPERT Baseline prior to enoxaparin initiation. Gayla Malcolm MD LAB BLOOD ORDERABLES Alanna l Result [facility] ([place]) [address] [place] [address] * (ABNORMAL) Creatinine (08/15/2024 10:37 AM SEED EXPERT) Creatinine 0.72(L) 0.80 - 1.30 mg/dL Blood 08/15/2024 10:3 7 AM SEED EXPERT 08/15/2024 10:39 AM SEED EXPERT Narrative [facility] ([place]) - 08/15/2024 11:27 AM SEED EXPERT Baseline prior to enoxaparin initiation. Gayla Malcolm MD LAB BLOOD ORDERABLES Alanna l Result [facility] ([place]) [address] [place] [address] * Hepatic function panel (08/15/2024 10:37 AM SEED EXPERT) Bilirubin, total 0.3 0.1 - 1.2 mg/dL Bilirubin, direct 0.1 0.1 - 0.3 mg/dL [facility] ([place]) Protein, pl 6.9 6.5 - 8.5 g/dL [facility] ([place]) Albumin 3.8 3.5 - 5.0 g/dL [facility] ([place]) Alk phos 69 40 - 130 Units/L [facility]) ALT 14 7 - 55 Units/L [facility] ([place]) AST 21 10 - 50 Units/L [facility] ([place]) Blood 08/15/2024 10:3 7 AM SEED EXPERT 08/15/2024 10:39 AM SEED EXPERT Gayla Malcolm MD LAB BLOOD ORDERABLES Alanna l Result Performing Organization Address [facility] Co de Phone Number [facility]) [address] [place] [address] * (ABNORMAL) Troponin T high-sensitivity series (baseline, 2hr, 4hr, 6hr) (08/15/2024 9:00 AM SEED EXPERT) Trop T hs 23(H) <=22 ng/L Comment: Interpretive Data For further hscTnT resources including the diagnostic algorithm and an aid in interpretation, copy and paste this link: https://nrl.testcatalog.org/show/hsTrop Current Interpretive Data last revised 2020. Testing performed by: [facility], [address] [place] [address], [place]., [address] Blood 08/15/2024 9:00 AM SEED EXPERT 08/15/2024 9:06 AM SEED EXPERT Gayla Malcolm MD LAB BLOOD ORDERABLES Alanna l Result Performing Organization Address [facility]/ZIP Co de Phone Number [facility] [place]) [address] [facility] [facility] [place] [address] * Influenza A/B, RSV, and COVID-19 PCR Nasopharyngeal (08/15/2024 9:00 AM SEED EXPERT) [facility] COVID-19 RNA Negative Negative Influenza A RNA Negative Negative [facility] [place]) Influenza B RNA Negative Negative [facility] [place] RSV RNA Negative Negative [facility] [place]) Comment: Interpretive data: Testing performed by [facility]. This test is performed using the MoPix Xpert Xpress CoV-2/Flu/RSV plus assay. This is a multiplex, real- time reverse transcriptase PCR assay intended for the qualitative detection of nucleic acid from SARS-CoV-2, influenza A, influenza B, and respiratory syncytial virus. This assay has been cleared by the [place] Food and Drug administration. The performance characteristics have been verified by the [facility]. Results must be considered in the clinical context, and a negative result does not rule out infection. Interpretive Data last revised 2023 Nasopharyngeal 08/15/2024 9: 00 AM SEED EXPERT 08/15/2024 9:06 AM SEED EXPERT Narrative [facility] [place] - 08/15/2024 9:50 AM SEED EXPERT Is the Patient experiencing symptoms consistent with COVID?->Yes Gayla Malcolm MD LAB MICROBIOLOGY - GENERA L ORDERABLES Final Result Performing Organization Address City/[facility]/ZIP Co de Phone Number [facility] [place]) [address] [facility] [place] [address] * eGFR (08/15/2024 9:00 AM SEED EXPERT) [facility] eGFR >90 >=60 mL/min/1. 73 m2 Comment: [...] Current interpretive data was last reviewed 2021. Testing performed by: [facility], [address] [place] [address], [place]., [address] Blood 08/15/2024 9:00 AM SEED EXPERT 08/15/2024 10:54 AM SEED EXPERT us Gayla Malcolm MD LAB BLOOD ORDERABLES Alanna grimaldo Result [facility] [place]) [address] [facility] [place] [address] * Differential, auto (08/15/2024 9:00 AM SEED EXPERT) Neutrophil abs 4.5 1.5 - 6.5 K/cumm Imm gran abs 0.0 0.0 - 0.1 K/cumm [facility] ([place]) Lymphocyte abs 2.5 0.8 - 3.3 K/cumm [facility] ([place]) Monocyte abs 0.8 0.2 - 0.8 K/cumm [facility] ([place]) Eosinophil abs 0.2 0.0 - 0.5 K/cumm [facility] ([place]) Basophil abs 0.1 0.0 - 0.1 K/cumm [facility] ([place]) Neutrophil pct 55.4 % [facility] ([place]) Comment: Interpretive Data Percent cell count reference ranges are not reported, since discordance with absolute values may lead to misinterpretation of CBC data. Current Interpretive Data was last revised on 2017. Imm gran pct 0.2 % [facility] ([place]) Comment: Interpretive Data Percent cell count reference ranges are not reported, since discordance with absolute values may lead to misinterpretation of CBC data. Current Interpretive Data was last revised on 2017. Lymphocyte pct 31.3 % [facility] ([place]) Comment: Interpretive Data Percent cell count reference ranges are not reported, since discordance with absolute values may lead to misinterpretation of CBC data. Current Interpretive Data was last revised on 2017. Monocyte pct 9.4 % [facility] ([place]) Comment: Interpretive Data Percent cell count reference ranges are not reported, since discordance with absolute values may lead to misinterpretation of CBC data. Current Interpretive Data was last revised on 2017. Eosinophil pct 2.6 % [facility] ([place] Comment: Interpretive Data Percent cell count reference ranges are not reported, since discordance with absolute values may lead to misinterpretation of CBC data. Current Interpretive Data was last revised on 2017. Basophil pct 1.1 % [facility] ([place]) Comment: Interpretive Data Percent cell count reference ranges are not reported, since discordance with absolute values may lead to misinterpretation of CBC data. Current Interpretive Data was last revised on 2017. Blood 08/15/2024 9:00 AM SEED EXPERT 08/15/2024 9:06 AM SEED EXPERT us Gayla Malcolm MD LAB BLOOD ORDERABLES Alanna l Result [facility] ([place]) [address] [facility] [place] [address] * (ABNORMAL) CBC with auto differential (08/15/2024 9:00 AM SEED EXPERT) WBC 8.1 3.8 - 9.9 K/cumm Hgb 12.5(L) 13.0 - 17.5 g/dL [facility] ([place]) Hct 40.7 38.9 - 50.3 % [facility] ([place]) Plt 222 150 - 400 K/cumm [facility] ([place]) MPV 9.9 9.1 - 12.3 fL [facility] ([place]) RBC 4.46 4.30 - 5.80 M/cumm [facility] ([place]) MCV 91.3 81.3 - 96.4 fL [facility] ([place]) MCH 28.0 27.1 - 33.3 pg [facility] ([place]) MCHC 30.7(L) 32.3 - 35.7 g/dL [facility] ([place]) RDW CV 14.1 11.1 - 14.9 % [facility] ([place]) RDW SD 47.2 35.7 - 48.1 fL [facility] ([place]) NRBC abs 0.00 0.00 - 0.01 K/cumm [facility] ([place]) Blood 08/15/2024 9:00 AM SEED EXPERT 08/15/2024 9:06 AM SEED EXPERT Gayla Malcolm MD LAB BLOOD ORDERABLES Alanna l Result Performing Organization Address City/[facility]/ZIP Co de Phone Number [facility]) [address] [place] [address] [place] [place] [address] * aPTT (08/15/2024 9:00 AM SEED EXPERT) aPTT 36 28 - 38 sec [facility] [place]) Comment: Interpretive Data Heparin therapeutic range: 66.0 - 100.0 seconds. Range based on correlation with therapeutic heparin activity range of 0.3 - 0.7 Units/mL. Current interpretive data was last revised on 2023. Blood 08/15/2024 9:00 AM SEED EXPERT 08/15/2024 10:24 AM SEED EXPERT Narrative [facility] [place]) - 08/15/2024 10:31 AM SEED EXPERT Baseline prior to enoxaparin initiation. Gayla Malcolm MD LAB BLOOD ORDERABLES Alanna l Result [facility] ([place]) [address] [facility] [place] [address] * Protime-INR (08/15/2024 9:00 AM SEED EXPERT) PT 12.8 9.7 - 13.0 sec [facility] ([place]) INR 1.18 0.90 - 1.20 [facility] ([place]) Comment: Interpretive data Oral anticoagulant therapeutic ranges: Venous thromboembolism prophylaxis or treatment: 2.0-3.0 CARDIOLOGY Standard range: 2.0-3.0 High-intensity range: 2.5-3.5 Refer to indication-specific guidelines for appropriate target ranges for prosthetic heart valve replacement. Current interpretive data was last revised on 2019. Blood 08/15/2024 9:00 AM SEED EXPERT 08/15/2024 10:24 AM SEED EXPERT Narrative [facility] ([place]) - 08/15/2024 10:31 AM SEED EXPERT Baseline prior to enoxaparin initiation. Gayla Malcolm MD LAB BLOOD ORDERABLES Alanna grimaldo Result [facility] ([place]) [address] [facility] [place] [address] * (ABNORMAL) Comprehensive metabolic panel (08/15/2024 9:00 AM SEED EXPERT) Pathologist [facility] Sodium 146(H) 135 - 145 mmol/L Comment:Testing performed by : [address] [address] Potassium, pl 4.5 3.3 - 4.9 mmol/L [facility] ([place]) Comment:Testing performed by : [address] [address] Chloride 108 97 - 110 mmol/L [facility] ([place]) Comment:Testing performed by : [address] [address] CO2 27 22 - 32 mmol/L [facility] ([place]) Comment:Testing performed by : [address], [address] Anion gap 11 2 - 15 mmol/L [facility] ([place]) Comment:Testing performed by : [address], [address] BUN 14 6 - 25 mg/dL [facility] ([place]) Comment:Testing performed by : [address] [address] Creatinine 0.77(L) 0.80 - 1.30 mg/dL [facility] ([place]) Comment:Testing performed by : [address] [address] Glucose 98 70 - 199 mg/dL [facility] [...] Current interpretive data was last revised 2022. Testing performed by: [address], [address] Calcium 8.8 8.5 - 10.3 mg/dL [facility] ([place]) Comment:Testing performed by : [address], [address] Bilirubin, total 0.3 0.1 - 1.2 mg/dL [facility] ([place]) Comment:Testing performed by : [address] [address] Protein, pl 7.2 6.5 - 8.5 g/dL [facility] ([place]) Comment:Testing performed by : [address], [address] Albumin 3.8 3.5 - 5.0 g/dL [facility] ([place]) Comment:Testing performed by : [address], [address] Alk phos 71 40 - 130 Units/L [facility] ([place]) Comment:Testing performed by : [address], [address] ALT 17 7 - 55 Units/L [facility] ([place]) Comment:Testing performed by : [address], [address] AST 32 10 - 50 Units/L [facility] ([place]) Comment:Testing performed by : [facility], [address] [place] [address], [place]., [address] Blood 08/15/2024 9:00 AM SEED EXPERT 08/15/2024 9:06 AM SEED EXPERT Gayla Malcolm MD LAB BLOOD ORDERABLES Alanna l Result [facility] [place]) [address] [facility] [place] [address] * XR Chest PA Lateral 2 Views (08/15/2024 8:49 AM SEED EXPERT) Anatomical Region Laterality Modality Body, Chest N/A Computed Radiogr aphy 08/15/2024 9:00 AM SEED EXPERT Narrative 08/15/2024 9:01 AM SEED EXPERT EXAM DESCRIPTION: XR CHEST PA LATERAL 2 VIEWS REASON FOR STUDY: Shortness of breath SOB x3 days Non smoker No surgeries No known conditions TECHNIQUE: 2 radiographic view(s) of the chest. COMPARISON: 07/17/2023 FINDINGS: LUNGS: Small bilateral pleural effusions. No pneumothorax. The right hemidiaphragm is elevated. Right lower lung opacities may represent atelectasis or airspace disease. HEART/MEDIASTINUM: Cardiomediastinal silhouette is obscured. LINES/TUBES: None. BONES: No acute osseous abnormality. IMPRESSION: Small bilateral pleural effusions. Associated right lower lung opacities may represent atelectasis or airspace disease. THIS IS AN ELECTRONICALLY VERIFIED FINAL REPORT 08/15/2024 9:01 AM - Electronically signed by Amari Roberts M.D. MM: MM Report ID: [id number] Reading Location: [id number] Procedure Note Amari Roberts MD - 08/15/2024 EXAM DESCRIPTION: XR CHEST PA LATERAL 2 VIEWS REASON FOR STUDY: Shortness of breath SOB x3 days Non smoker No surgeries No known conditions TECHNIQUE: 2 radiographic view(s) of the chest. COMPARISON: 07/17/2023 FINDINGS: LUNGS: Small bilateral pleural effusions. No pneumothorax. The right hemidiaphragm is elevated. Right lower lung opacities may represent atelectasis or airspace disease. HEART/MEDIASTINUM: Cardiomediastinal silhouette is obscured. LINES/TUBES: None. BONES: No acute osseous abnormality. IMPRESSION: Small bilateral pleural effusions. Associated right lower lung opacitiesmay represent atelectasis or airspace disease. THIS IS AN ELECTRONICALLY VERIFIED FINAL REPORT 08/15/2024 9:01 AM - Electronically signed by Amari Roberts M.D. MM: MM Report ID: [id number] Reading Location: [place] [id number] Gayla Malcolm MD IMG XR PROCEDURES Final R esult * COLONOSCOPY (07/16/2017 7:32 AM SEED EXPERT) Anatomical Region Laterality Modality Other Narrative Procedure Note Michael Bran MD - 07/16/2017 7:32 AM CST [facility] Patient Name: Js Contreras Procedure Date: 07/16/2017 7:32 AM Date of : 1950 Admit Type: Outpatient Age: 67 Gender: Male Attending MD: Michael Gonzalez M.D. Room: [facility] ENDOSCOPY ROOM 2 Note Status: Finalized Procedure: Colonoscopy Indications: High risk colon cancer surveillance: Personalhistory of colonic polyps Referring MD: Terra Pineda M.D. Providers: Michael Shaw M.D. Impression: - Non-bleeding internal hemorrhoids. - Moderate diverticulosis in the sigmoid colon, inthe descending colon and in the transverse colon. Therewas no evidence of diverticular bleeding. - One 5 mm polyp in the sigmoid colon. Resected and retrieved. Recommendation: - Discharge patient to home. - Resume previous diet. - Continue present medications. - Await pathology results. - Repeat colonoscopy in 5 years for surveillance. - Return to primary care physician PRN. Medicines: Monitored Anesthesia Care Complications: No immediate complications. Estimated Blood Loss: Estimated blood loss: none. Procedure: Pre-Anesthesia Assessment: - Prior to the procedure, a History and Physical was performed, and patient medications and allergieswere reviewed. The patient's tolerance of previous anesthesia was also reviewed. The risks and benefitsof the procedure and the sedation options and riskswere discussed with the patient. All questions were answered, and informed consent was obtained. Prior Anticoagulants: The patient has taken no previous anticoagulant or antiplatelet agents. ASA Grade Assessment: II - A patient with mild systemicdisease. After reviewing the risks and benefits, the patientwas deemed in satisfactory condition to undergo the procedure. The benefits, risks and alternatives of theprocedure and sedation were discussed and informed consent was obtained. All questions were answered. Please referto the signed informed consent document in the medical record. The scope was passed under direct vision.The Colonoscope [id number] was introducedthrough the anus and advanced to the the cecum, identifiedby appendiceal orifice and ileocecal valve. The colonoscopy was performed without difficulty. The patient tolerated the procedure well. The quality of the bowel preparation was excellent. Findings: The perianal and digital rectal examinations were normal. Non-bleeding internal hemorrhoids were found during retroflexion. The hemorrhoids were medium-sized. Multiple small and large-mouthed diverticula were found in thesigmoid colon, in the descending colon and in the transverse colon. There wasno evidence of diverticular bleeding. A 5 mm polyp was found in the sigmoid colon. The polyp was sessile.The polyp was removed with a cold snare. Resection and retrieval were complete. Electronically signed by Michael Westbrook M.D. Michael Shaw M.D. 07/16/2017 8:07:48 AM Number of Addenda: 0 Note Initiated On: 07/16/2017 7:32 AM Procedure Code(s): --- Professional --- 30689, Colonoscopy, flexible; with removal of tumor(s), polyp(s), or other lesion(s) by snare technique Diagnosis Code(s): --- Professional --- Z86.010, Personal history of colonic polyps K64.8, Other hemorrhoids D12.5, Benign neoplasm of sigmoid colon K57.30, Diverticulosis of large intestine without perforation orabscess without bleeding CPT copyright 2014 [employer]. All rights reserved. The codes documented in this report are preliminary and upon dictionary editor reviewmay be revised to meet current compliance requirements. Recognized by the [employer] for promoting quality in endoscopy Michael Shaw MD ENDOSCOPY PROCEDUR ES Final Result from Last 3 Months or Most Recently Relevant to Health Maintenance Insurance [employer] MEDICARE PPO [place] [id number] [facility] MEDICARE [facility] MEDICARE GENERIC RISK OTHER [facility] PPO MEDICARE [facility] Address[facility] [address] [address] [place] [address] COUNTS INCLUDE 234 BEDS AT THE [facility] [employer] MEDICARE GOLD COUNTS INCLUDE 234 BEDS AT THE [facility] MEDICARE [employer] Care Teams Instructor Substitute Cosmet[employer] Relationship Specialty Start Date End Date Unknown, Notinfile PCP - General 07/09/23
--- OUTSIDE RECORDS SUMMARY | 2024-08-22 19:53 | XMS_ITS | Clinical Summary ---
Author Organization [facility] Address 1 [place] [address] Care Team Providers Care Dairy Department Manager Name Role Phone Unknown, Notinfile Primary Care Provider Unavail able Allergies No known active allergies Medications diazePAM [...] needed Assessment & Plan (07/23/2018 12:58 PM BACK HOE OPERATOR): Reports compliance with wound care/splinting/hand therapy Healing well, no complications or signs of infection reported or noted on exam Sutures removed without difficulty, wound care administered and instructions given Continue hand therapy Follow up at the 3 month postoperative laura 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 Scapholunate ligament injury , no instability, left, initial encounter 12/28/2017 Encounters Date Type Department Care Team Description 08/22/2024 5:19 PM CDT Emergency [facility] Emergency Department 1 [place] [address] 08/15/2024 8:47 AM BACK HOE OPERATOR - 08/15/2024 3:05 PM BACK HOE OPERATOR Emergency [facility] Emergency Department 1 [place] [address] Gayla Malcolm MD Atrial fibrillation with controlled ventricular rate (HCC) (Primary Dx); Acute on chronic combined systolic and diastolic congestive heart failure (HCC) Discharge Disposition: Discharge to home or self care 07/13/2024 Telephone [facility] [address] [facility] [address] [place] [address] Chris Tolentino MD from Last 3 Months Surgical History Surgery Date Site/Laterality Comments COLONOSCOPY 06/15/2011 - 06/14/2012 POLYPECTOMY APPENDECTOMY CARPAL TUNNEL RELEASE Bilateral HEMORROIDECTOMY Medical History Medical History Date Comments Colon polyp Family History Medical History Relation Name Comments No Known Problems Father No Known Problems Mother Relation Name Status Comments Father Mother Social History Tobacco Use Types Packs/Day Years [...] on file Legal Sex Male 1:47 AM BACK HOE OPERATOR Gender Identity Not on file Sexual Orientation Not on file Obstetrics History Last Filed Vital Signs Vital Sign Reading [...] 08/22/2024 5:30 PM CDT Plan of Treatment Health Maintenance Due Date Last Done Comments Depression Screening 1950 Hepatitis C Screening 1950 Well Visit 65+ 2014 Zoster Vaccine (3 of 3) 06/13/2022 04/18/2022, 11/03 Covid-19 Vaccine (2023-2 5 season) 2024 05/05/2023, 04/18/2021, 08/23/2020 Influenza Vaccine (#1) 2024 , 03/16/2020, 03/23/2018, Additional history exists Fall Risk Assessment 07/17/2024 07/17/2023 Colon Cancer Screening-Colonoscopy 07/16/2027 07/16/2017, 08/07/2011 DTaP/Tdap/Td Vaccine (3 - Td or Tdap) 04/18/2032 04/18/2022, 02/02/2012 Pneumococcal vaccine 65+ Completed 01/22/2017, 02/14 Colon Cancer Screening-CT Colonography Discontinued 07/16/2017, 08/07/2011 Colon Cancer Screening-DNA Stool Discontinued 07/16/19 18, 08/07/2011 Colon Cancer Screening-FIT Discontinued 07/16/2017, Colon Cancer Screening-Sigmoidoscopy Discontinued 07/16/2017, 08/07/2011 Hepatitis B Screening Completed 04/23/2018 , 03/26/2018, 05/27/2013, Additional history exists Medical Devices Implanted Type Area Distance Education Faculty Liaison Device Identifier Shelf Expiration Date Model / Serial / Lot [employer] 8600-5x05 Graftjacket [id number] Regenerative Nonmesh Standard Graft - [id number] Implanted:Qty: 1 on 07/06/2018 by Kirby Rm III, MD at [facility] Left: Wrist [employer] 01/13/2020 8600-5X05 / / [id number] Procedures Procedure Name Priority Date/Time Associated Diagnosis Comments MANUAL DIFFERENTIAL STAT 08/22/2024 5 :36 PM CDT EGFR STAT 08/22/2024 5:36 PM CDT LIPASE STAT 08/22/2024 5:36 PM CDT COMPREHENSIVE METABOLIC PANEL STAT 08/22/2024 5:36 PM CDT CBC WITH AUTO DIFFERENTIAL STAT 08/22/2024 5:36 PM CDT TROPONIN T HIGH-SENSITIVITY 2-HOUR Timed 08/15/2024 11:29 AM BACK HOE OPERATOR URINALYSIS AND REFLEX TO MICROSCOPIC AND CULTURE STAT 08/15/2024 11:29 AM BACK HOE OPERATOR EGFR STAT 08/15/2024 10:37 AM BACK HOE OPERATOR HEPATIC FUNCTION PANEL STAT 10:37 AM BACK HOE OPERATOR PRO B-TYPE NATRIURETIC PEPTIDE Add-On 08/15/2024 10:37 AM BACK HOE OPERATOR CREATININE STAT 08/15/2024 10:37 AM BACK HOE OPERATOR CBC WITHOUT DIFFERENTIAL STAT 08/15/2024 10:37 AM BACK HOE OPERATOR TROPONIN T HIGH-SENSITIVITY 2-HOUR Timed 08/15/2024 10:37 AM BACK HOE OPERATOR EGFR STAT 08/15/2024 9:00 AM BACK HOE OPERATOR APTT STAT 08/15/2024 9:00 AM BACK HOE OPERATOR PROTIME-INR STAT 08/15/2024 9:00 AM BACK HOE OPERATOR DIFFERENTIAL AUTO STAT 08/15/2024 9:0 0 AM BACK HOE OPERATOR TROPONIN T HIGH-SENSITIVITY SERIES (BASELINE, 2HR, 4HR, 6HR) STAT 08/15/2024 9:00 AM BACK HOE OPERATOR CBC WITH AUTO DIFFERENTIAL STAT 08/15/2024 9:00 AM BACK HOE OPERATOR COMPREHENSIVE METABOLIC PANEL STAT 08/15/2024 9:00 AM BACK HOE OPERATOR INFLUENZA A/B, RSV, AND COVID-19 PCR STAT 08/15/2024 9:00 AM BACK HOE OPERATOR XR CHEST PA LATERAL 2 VIEWS ED 08/15/2024 8:49 AM BACK HOE OPERATOR ECG 12-LEAD STAT 08/15/2024 8:26 AM BACK HOE OPERATOR COLONOSCOPY 07/16/2017 7:32 AM BACK HOE OPERATOR from Last 3 Months or Most Recently [...] Result [facility] ([place]) 1 [facility] Department [place] [address] * (ABNORMAL) CBC with auto differential (08/22/2024 [...] 87.2 81.3 - 96.4 fL [facility] ([place]) MCH 28.0 27.1 - 33.3 pg [facility] [...] ORDERABLES Final Result [facility] ([place]) 1 [facility] [place] [address] * (ABNORMAL) Manual Differential (08/22/2024 5:36 PM [...] Result [facility] ([place]) 1 [facility] Department [place] [address] * Lipase (08/22/2024 5:36 PM CDT) Pathologist [facility] Lipase 95 10 - 99 Units/L Blood Venous blood specimen / Unknown 08/22/2024 5:36 PM CDT 08/22/2024 5:40 PM CDT us Timo Holder MD LAB BLOOD ORDERABLES Final Result [facility] ([place]) 1 [facility] Department [place] [address] * Comprehensive metabolic panel (08/22/2024 5:36 PM [...] BLOOD ORDERABLES Final Result Performing Organization Address [facility]/ZIP Co de Phone Number [facility] ([place]) 1 [facility] [place] [address] * (ABNORMAL) Troponin T high-sensitivity 2-hour (08/15/2024 11:29 AM BACK HOE OPERATOR) Trop T hs 26(H) <=22 ng/L Comment: Interpretive Data For further hscTnT resources including the diagnostic algorithm and an aid in interpretation, copy and paste this link: https://nrl.testcatalog.org/show/hsTrop Current Interpretive Data last revised 2020. Trop T hs delta See Comment ng/L CE RNZULLY [facility] ([place]) Comment:unable to calculate Trop T hs pct delta See Comment % [facility] ([place]) Comment:unable to calculate Trop T hs interp See Comment C ERNZULLY [facility] ([place]) Comment:unable to calculate Blood 08/15/2024 11:2 9 AM BACK HOE OPERATOR 08/15/2024 11:31 AM BACK HOE OPERATOR Gayla Malcolm MD LAB BLOOD ORDERABLES Alanna l Result Performing Organization Address City/[facility] Co de Phone Number [facility] ([place]) 1 [place] [address] * Urinalysis reflex to microscopic and culture Urine (08/15/2024 11:29 AM BACK HOE OPERATOR) Color, ur Straw Yellow Clarity, ur Clear Clear [facility] ([place]) Specific gravity, ur 1.008 1.003 - 1.030 [facility] ([place]) pH, urine 6.5 [facility] ([place]) Comment: Interpretive Data U rine pH is affected by diet, medications, systemic acid-base disturbances, and renal tubular function. pH may affect urinary stone formation. For example, urine pH below 6.0 may help reduce the tendency for calcium phosphate stones and pH greater than 6.0 may reduce the tendency for uric acid stone formation. Source: [facility] Current Interpretive Data was last revised on [...] for microscopic UA and culture not met. [facility] ([place]) Urine 08/15/2024 11:2 9 AM BACK HOE OPERATOR 08/15/2024 11:31 AM BACK HOE OPERATOR Gayla Malcolm MD LAB MICROBIOLOGY - GENERA L ORDERABLES Final Result Performing Organization Address City/[facility]/ZIP Co de Phone Number [facility] ([place]) 1 [facility] Department [place] [address] * (ABNORMAL) Troponin T high-sensitivity 2-hour (08/15/2024 10:37 AM BACK HOE OPERATOR) Trop T hs 26(H) <=22 ng/L Comment: Interpretive Data For further hscTnT resources including the diagnostic algorithm and an aid in interpretation, copy and paste this link: https://nrl.testcatalog.org/show/hsTrop Current Interpretive Data last revised 2020. Trop T hs interp See Comment C ELISA [facility] ([place]) Comment:Delta calculation an d interpretation not available. Blood 08/15/2024 10:3 7 AM BACK HOE OPERATOR 08/15/2024 10:38 AM BACK HOE OPERATOR Gayla Malcolm MD LAB BLOOD ORDERABLES Alanna l Result [facility] ([place]) [address] Department [place] [address] * eGFR (08/15/2024 10:37 AM BACK HOE OPERATOR) eGFR >90 >=60 mL/min/1. 73 m2 Comment: [...] reviewed 2021. Blood 08/15/2024 10:3 7 AM BACK HOE OPERATOR 08/15/2024 10:39 AM BACK HOE OPERATOR Gayla Malcolm MD LAB BLOOD ORDERABLES Alanna grimaldo Result [facility] ([place]) 1 [facility] Department [place] [address] * (ABNORMAL) Pro B-type natriuretic peptide (08/15/2024 10:37 AM BACK HOE OPERATOR) NT-proBNP 4,819(H) <=450 pg/mL Comment: Interpretive Comments: [...] as advanced age. - References: 1. Alfredo FAITH et.al. Eur Heart J. 2006:27:330-337. 2. Molly MTZ, Brenda MARR. J. AM Jesus Cardiol: Cardiovasc Imag. 2009;2: 216- 225. Interpretive Data Last Revised Date: 2018. Blood 08/15/2024 10:3 7 AM BACK HOE OPERATOR 08/15/2024 10:39 AM BACK HOE OPERATOR us Gayla Malcolm MD LAB BLOOD ORDERABLES Edit ed Result - Final [facility] ([place]) 1 [facility] Department [place] [address] * (ABNORMAL) CBC without differential (08/15/2024 10:37 AM BACK HOE OPERATOR) WBC 8.8 3.8 - 9.9 K/cumm Hgb [...] MCH 28.0 27.1 - 33.3 pg [facility] ([place]) MCHC 30.8(L) 32.3 - 35.7 g/dL [facility] ([place]) RDW CV 14.2 11.1 - 14.9 % [facility] ([place]) RDW SD 47.1 35.7 - 48.1 fL [facility] ([place]) NRBC abs 0.00 0.00 - 0.01 K/cumm [facility] ([place]) Blood 08/15/2024 10:3 7 AM BACK HOE OPERATOR 08/15/2024 10:38 AM BACK HOE OPERATOR Narrative [facility] ([place]) - 08/15/2024 10:41 AM BACK HOE OPERATOR Baseline prior to enoxaparin initiation. Gayla Malcolm MD LAB BLOOD ORDERABLES Alanna l Result Performing Organization Address City/[facility]/ZIP Co de Phone Number [facility] ([place]) 1 [facility] [place] [address] * (ABNORMAL) Creatinine (08/15/2024 10:37 AM BACK HOE OPERATOR) Creatinine 0.72(L) 0.80 - 1.30 mg/dL Blood 08/15/2024 10:3 7 AM BACK HOE OPERATOR 08/15/2024 10:39 AM BACK HOE OPERATOR Narrative [facility] ([place]) - 08/15/2024 11:27 AM BACK HOE OPERATOR Baseline prior to enoxaparin initiation. Gayla Malcolm MD LAB BLOOD ORDERABLES Alanna l Result [facility] ([place]) 1 [facility] [place] [address] * Hepatic function panel (08/15/2024 10:37 AM BACK HOE OPERATOR) Bilirubin, total 0.3 0.1 - 1.2 mg/dL Bilirubin, direct 0.1 0.1 - 0.3 mg/dL [facility] ([place]) Protein, pl 6.9 6.5 - 8.5 g/dL [facility] ([place]) Albumin 3.8 3.5 - 5.0 g/dL [facility] ([place]) Alk phos 69 40 - 130 Units/L [facility] ([place]) ALT 14 7 - 55 Units/L [facility] ([place]) AST 21 10 - 50 Units/L [facility] ([place]) Blood 08/15/2024 10:3 7 AM BACK HOE OPERATOR 08/15/2024 10:39 AM BACK HOE OPERATOR Gayla Malcolm MD LAB BLOOD ORDERABLES Alanna l Result Performing Organization Address City/[facility]/ZIP Co de Phone Number [facility] ([place]) [address] [place] [address] [place] [address] * (ABNORMAL) Troponin T high-sensitivity series (baseline, 2hr, 4hr, 6hr) (08/15/2024 9:00 AM BACK HOE OPERATOR) Pathologist [facility] Trop T hs 23(H) <=22 ng/L Comment: Interpretive Data For further hscTnT resources including the diagnostic algorithm and an aid in interpretation, copy and paste this link: https://nrl.testcatalog.org/show/hsTrop Current Interpretive Data last revised 2020. Testing performed by: [facility], [address] [place] [address]., [address] Blood 08/15/2024 9:00 AM BACK HOE OPERATOR 08/15/2024 9:06 AM BACK HOE OPERATOR Gayla Malcolm MD LAB BLOOD ORDERABLES Alanna l Result [facility] ([place]) 1 [facility] [place] [address] * Influenza A/B, RSV, and COVID-19 PCR Nasopharyngeal (08/15/2024 9:00 AM BACK HOE OPERATOR) COVID-19 RNA Negative Negative Influenza A RNA Negative Negative [facility]) Influenza B RNA Negative Negative [facility] ([place]) RSV RNA Negative Negative [facility] ([place]) Comment: Interpretive data: Testing performed by [facility]. This test is performed using the [employer] Xpert Xpress CoV-2/Flu/RSV plus assay. This is a multiplex, real- time reverse transcriptase PCR assay intended for the qualitative detection of nucleic acid from SARS-CoV-2, influenza A, influenza B, and respiratory syncytial virus. This assay has been cleared by the [place] Food and Drug administration. The performance characteristics have been verified by the [facility]. Results must be considered in the clinical context, and a negative result does not rule out infection. Interpretive Data last revised 2023 Nasopharyngeal 08/15/2024 9: 00 AM BACK HOE OPERATOR 08/15/2024 9:06 AM BACK HOE OPERATOR Narrative [facility] ([place]) - 08/15/2024 9:50 AM BACK HOE OPERATOR Is the Patient experiencing symptoms consistent with COVID?->Yes Gayla Malcolm MD LAB MICROBIOLOGY - GENERA L ORDERABLES Final Result [facility] ([place]) 1 [facility] Department [place] [address] * eGFR (08/15/2024 9:00 AM BACK HOE OPERATOR) eGFR >90 >=60 mL/min/1. 73 m2 Comment: [...] was last reviewed 2021. Testing performed by: [facility], [address] [place] [address], [place]., [address] Blood 08/15/2024 9:00 AM BACK HOE OPERATOR 08/15/2024 10:54 AM BACK HOE OPERATOR us Gayla Malcolm MD LAB BLOOD ORDERABLES Alanna grimaldo Result [facility] ([place]) 1 [facility] Department [place] [address] * Differential, auto (08/15/2024 9:00 AM BACK HOE OPERATOR) Neutrophil abs 4.5 1.5 - 6.5 K/cumm [...] revised on 2017. Blood 08/15/2024 9:00 AM BACK HOE OPERATOR 08/15/2024 9:06 AM BACK HOE OPERATOR Gayla Malcolm MD LAB BLOOD ORDERABLES Alanna l Result [facility] ([place]) 1 [facility] Department [place] [address] * (ABNORMAL) CBC with auto differential (08/15/2024 9:00 AM BACK HOE OPERATOR) WBC 8.1 3.8 - 9.9 K/cumm Hgb 12.5(L) 13.0 - 17.5 g/dL [facility] ([place]) Hct 40.7 38.9 - 50.3 % [facility] ([place]) Plt 222 150 - 400 K/cumm [facility] ([place]) MPV 9.9 9.1 - 12.3 fL [facility] ([place]) RBC 4.46 4.30 - 5.80 M/cumm [facility] ([place]) MCV 91.3 81.3 - 96.4 fL [facility] ([place]) MCH 28.0 27.1 - 33.3 pg [facility] ([place]) MCHC 30.7(L) 32.3 - 35.7 g/dL [facility] ([place]) RDW CV 14.1 11.1 - 14.9 % [facility] ([place]) RDW SD 47.2 35.7 - 48.1 fL [facility] ([place]) NRBC abs 0.00 0.00 - 0.01 K/cumm [facility] ([place]) Blood 08/15/2024 9:00 AM BACK HOE OPERATOR 08/15/2024 9:06 AM BACK HOE OPERATOR Gayla Malcolm MD LAB BLOOD ORDERABLES Alanna l Result Performing Organization Address [facility] de Phone Number [facility] ([place]) 1 [facility] [place] [address] * aPTT (08/15/2024 9:00 AM BACK HOE OPERATOR) aPTT 36 28 - 38 sec [facility] ([place]) Comment: Interpretive Data Heparin therapeutic range: 66.0 - 100.0 seconds. Range based on correlation with therapeutic heparin activity range of 0.3 - 0.7 Units/mL. Current interpretive data was last revised on 2023. Blood 08/15/2024 9:00 AM BACK HOE OPERATOR 08/15/2024 10:24 AM BACK HOE OPERATOR Narrative [facility] ([place]) - 08/15/2024 10:31 AM BACK HOE OPERATOR Baseline prior to enoxaparin initiation. Gayla Malcolm MD LAB BLOOD ORDERABLES Alanna l Result Performing Organization Address [facility] de Phone Number [facility] ([place]) 1 [facility] [place] [address] * Protime-INR (08/15/2024 9:00 AM BACK HOE OPERATOR) PT 12.8 9.7 - 13.0 sec [facility] ([place]) INR 1.18 0.90 - 1.20 [facility] ([place]) Comment: Interpretive data Oral anticoagulant therapeutic ranges: Venous thromboembolism prophylaxis or treatment: 2.0-3.0 CARDIOLOGY Standard range: 2.0-3.0 High-intensity range: 2.5-3.5 Refer to indication-specific guidelines for appropriate target ranges for prosthetic heart valve replacement. Current interpretive data was last revised on 2019. Blood 08/15/2024 9:00 AM BACK HOE OPERATOR 08/15/2024 10:24 AM BACK HOE OPERATOR Narrative [facility] ([place]) - 08/15/2024 10:31 AM BACK HOE OPERATOR Baseline prior to enoxaparin initiation. Gayla Malcolm MD LAB BLOOD ORDERABLES Alanna l Result [facility] ([place]) 1 [facility] Department [place] [address] * (ABNORMAL) Comprehensive metabolic panel (08/15/2024 9:00 AM BACK HOE OPERATOR) Sodium 146(H) 135 - 145 mmol/L Comment:Testing performed by : [address] [address] Potassium, pl 4.5 3.3 - 4.9 mmol/L [facility] ([place]) Comment:Testing performed by : [address], [address] Chloride 108 97 - 110 mmol/L [facility] ([place]) Comment:Testing performed by : [address], [address] CO2 27 22 - 32 mmol/L [facility] ([place]) Comment:Testing performed by : [address], [address] Anion gap 11 2 - 15 mmol/L [facility] ([place]) Comment:Testing performed by : [address], [address] BUN 14 6 - 25 mg/dL [facility] ([place]) Comment:Testing performed by : [address], [address] Creatinine 0.77(L) 0.80 - 1.30 mg/dL [facility] ([place]) Comment:Testing performed by : [address], [address] Glucose 98 70 - 199 mg/dL [facility] ([place]) Comment: Interpretive Data Fasting glucose [...] was last revised 2022. Testing performed by: [facility], [address] [place] [address], [address] Calcium 8.8 8.5 - 10.3 mg/dL [facility] ([place]) Comment:Testing performed by : [address], [address] Bilirubin, total 0.3 0.1 - 1.2 mg/dL [facility] ([place]) Comment:Testing performed by : [address], [address] Protein, pl 7.2 6.5 - 8.5 g/dL [facility] ([place]) Comment:Testing performed by : [facility], [address] [place] [address], [address] Albumin 3.8 3.5 - 5.0 g/dL [facility] ([place]) Comment:Testing performed by : [address], [address] Alk phos 71 40 - 130 Units/L [facility] ([place]) Comment:Testing performed by : [address], [address] ALT 17 7 - 55 Units/L [facility] ([place]) Comment:Testing performed by : [address], [address] AST 32 10 - 50 Units/L [facility] ([place]) Comment:Testing performed by : [address], [address] Blood 08/15/2024 9:00 AM BACK HOE OPERATOR 08/15/2024 9:06 AM BACK HOE OPERATOR us Gayla Malcolm MD LAB BLOOD ORDERABLES Alanna l Result [facility] ([place]) 1 [facility] Department [place] [address] * XR Chest PA Lateral 2 Views (08/15/2024 8:49 AM BACK HOE OPERATOR) Anatomical Region Laterality Modality Body, Chest N/A Computed Radiogr aphy 08/15/2024 9:00 AM BACK HOE OPERATOR Narrative 08/15/2024 9:01 AM BACK HOE OPERATOR EXAM DESCRIPTION: XR CHEST PA LATERAL 2 [...] Amari Roberts M.D. MM: MM Report ID: [id number] Reading Location: [place] [address] Procedure Note Amari Roberts MD - 08/15/2024 [...] Amari Roberts M.D. MM: MM Report ID: [id number] Reading Location: [place] [address] Gayla Malcolm MD IMG XR PROCEDURES Final R esult * COLONOSCOPY (07/16/2017 7:32 AM BACK HOE OPERATOR) Anatomical Region Laterality Modality Other Narrative Procedure Note Michael Bran MD - 07/16/2017 7:32 AM CST [facility] Patient Name: Js Contreras Procedure Date: 07/16/2017 7:32 AM Date of : 1950 Admit Type: Outpatient Age: 67 Gender: Male Attending MD: Michael Gonzalez M.D. Room: [facility] 2 Note Status: Finalized Procedure: [...] scope was passed under direct vision.The Colonoscope [id number] was introducedthrough the anus and advanced to [...] 7:32 AM Procedure Code(s): --- Professional --- [address], Colonoscopy, flexible; with removal of tumor(s), polyp(s), or other lesion(s) by snare technique Diagnosis Code(s): --- Professional --- Z86.010, Personal history of colonic polyps K64.8, Other hemorrhoids D12.5, Benign neoplasm of sigmoid colon K57.30, Diverticulosis of large intestine without perforation orabscess without bleeding CPT copyright 2014 [employer]. All rights reserved. The codes documented in this report are preliminary and upon exercise equipment specialist reviewmay be revised to meet current compliance requirements. Recognized by the [place] for promoting quality in endoscopy Michael Shaw MD ENDOSCOPY PROCEDUR ES Final Result from Last 3 Months or Most Recently Relevant to Health Maintenance Insurance [employer] CHO[employer] MEDICARE PPO Member Subscriber Plan / Payer (Ef fective 2017-Present) Name:Js Contreras Relation to Subscriber:Self Name:Js Contreras Payer ID:[id number] (NAIC) Type:MEDICARE RISK OTHER Address: [place] [id number] MEDICARE [facility] MEDICARE GENERIC RISK OTHER [facility] MEDICARE [facility] CARE AETNA MEDICARE GOLD [facility] [employer] Address: [id number] [place] [address] MEDICARE SOLUTIONS Care Teams Dairy Department Manager Relationship Specialty Start Date End Date Unknown, Notinfile PCP - General 07/09/23
--- OUTSIDE RECORDS SUMMARY | 2024-08-22 20:36 | XMS_ITS | Continuity of Care Document ---
Author Organization [facility] Address [address] [place] [address] Phone Care Team Providers Care Access Database Developer Name Role Phone Screen, Clinician Unavailable Unavailable [...] Diagnoses Date Provider Providers Copied on Encounter [facility], [place], [place], [id number], [place] tel:[phone] [place] No Information Jan-0 9 Screen Clinician. . Referring Provider: Physician Calin. [facility], [place], [place], [id number], [place] tel:[phone] [place] No Information 9 Screen Clinician. . Referring Provider: Physician Calin. [facility], [place], [place], [id number], [place] tel:[phone] [place] Pain in left wristStiffness of left wrist, not elsewhere classifiedEffusion, left wristWeaknessPrimar y osteoarthritis, unspecified wrist Sep-0 9 Stern Katherin. [address] [place] [address], [address], [place], [place], [facility], [place]. tel:[phone] Referring Provider: Kirby Rm, [address] [address], [place], [address]. tel:[phone] [facility], [place], [place], [id number], [place] tel:[phone] [place] Pain in left wristStiffness of left wrist, not elsewhere classifiedEffusion, left wristWeaknessPrimar y osteoarthritis, unspecified wrist Sep-0 9 Stern Katherin. [address] [place] [address], [address], [place], [place], [facility], [place]. tel:[phone] Referring Provider: Kirby Rm, [address] [facility] [address], [place], [address]. tel:[phone] [facility], [place], [place], [id number], [place] tel:[phone] [place] Pain in left wristStiffness of left wrist, not elsewhere classifiedEffusion, left wristWeaknessPrimar y osteoarthritis, unspecified wrist Aug- 9 Stern Katherin. [address] [place] [address], [address], [place], [address], [place]. tel:[phone] Referring Provider: Kirby Rm, [address] [facility] [address] [facility], [place], [address]. tel:[phone] [facility], [address], [place], [place], [id number], [place] tel:[phone] [place] Pain in left wristStiffness of left wrist, not elsewhere classifiedEffusion, left wristWeaknessPrimar y osteoarthritis, unspecified wrist Mar-2 7-201 9 Stern Katherin. [address] [facility], [address], [place], [address], [place]. tel:[phone] Referring Provider: Kirby Rm, [address] [address], [place], [address]. tel:[phone] [facility] [address], [place], [place], [id number], [place] tel:[phone] [place] Pain in left wristStiffness of left wrist, not elsewhere classifiedEffusion, left wristWeaknessPrimar y osteoarthritis, unspecified wrist Mar-1 9-201 9 Stern Katherin. [address] [place] [address], [address], [place], [address], [place]. tel:[phone] Referring Provider: Kirby Rm, [address] [facility] [address] [facility], [place], [address]. tel:[phone] [facility], [place], [place], [address], [place] tel:[phone] [place] Pain in left wristStiffness of left wrist, not elsewhere classifiedEffusion, left wristWeaknessPrimar y osteoarthritis, unspecified wrist Mar-1 8-201 9 Stern Katherin. [address] [place] [address], [address], [place], [address], [place]. tel:[phone] Referring Provider: Kirby Rm, [address] [facility] [address], [place], [address]. tel:[phone] [facility], [place], [place], [id number], [place] tel:[phone] [place] Pain in left wristStiffness of left wrist, not elsewhere classifiedEffusion, left wristWeaknessPrimar y osteoarthritis, unspecified wrist Mar-1 5-201 9 Stern Katherin. [address] [place] [address], [address], [place], [address], [place]. tel:[phone] Referring Provider: Kirby Rm, [address] [facility] [address], [place], [address]. tel:[phone] [facility], [address], [place], [place], [address], [place] tel:[phone] [place] Pain in left wristStiffness of left wrist, not elsewhere classifiedEffusion, left wristWeaknessPrimar y osteoarthritis, unspecified wrist Mar-1 3-201 9 Stern Katherin. [address] [place] [address], [address], [place], [address], [place]. tel:[phone] Referring Provider: Kirby Rm, [address] [facility] [address], [place], [address]. tel:[phone] [facility], [address], [place], [place], [id number], [place] tel:[phone] [place] Pain in left wristStiffness of left wrist, not elsewhere classifiedEffusion, left wristWeaknessPrimar y osteoarthritis, unspecified wrist Mar-1 1-201 9 Stern Katherin. [address] [place] [address], [address], [place], [address], [place]. tel:[phone] Referring Provider: Kirby Rm, [address] [facility] [address], [place], [address]. tel:[phone] [facility], [place], [place], [id number], [place] tel:[phone] [place] Pain in left wristStiffness of left wrist, not elsewhere classifiedEffusion, left wristWeaknessPrimar y osteoarthritis, unspecified wrist Mar-0 8-201 9 Stern Katherin. [address] [place] [address], [address], [place], [address], [place]. tel:[phone] Referring Provider: Kirby Rm, [address] [facility] [address] [facility], [place], [address]. tel:[phone] [facility] [address], [place], [place], [id number], [place] tel:[phone] [place] Pain in left wristStiffness of left wrist, not elsewhere classifiedEffusion, left wristWeaknessPrimar y osteoarthritis, unspecified wrist Mar-0 6-201 9 Stern Katherin. [address] [place] [address], [address], [place], [address], [place]. tel:[phone] Referring Provider: Kirby Rm, [address] [address], [place], [address]. tel:[phone] [facility] [address], [place], [place], [id number], [place] tel:[phone] [place] Pain in left wristStiffness of left wrist, not elsewhere classifiedEffusion, left wristWeaknessPrimar y osteoarthritis, unspecified wrist Mar-0 4-201 9 Stern Katherin. [address] [place] [address], [address], [address], [place]. tel:[phone] Referring Provider: Kirby Rm, [address] [address], [place], [address]. tel:[phone] [facility] [address], [place], [place], [address], [place] tel:[phone] [place] Pain in left wristStiffness of left wrist, not elsewhere classifiedEffusion, left wristWeaknessPrimar y osteoarthritis, unspecified wrist Mar-0 1-201 9 Stern Katherin. [address] [place] [address], [address], [place], [address], [place]. tel:[phone] Referring Provider: Kirby Rm, [address] [address], [place], [address]. tel:[phone] [facility], [place], [place], [address], [place] tel:[phone] [place] Pain in left wristStiffness of left wrist, not elsewhere classifiedEffusion, left wristWeaknessPrimar y osteoarthritis, unspecified wrist Feb-2 7-201 9 Stern Katherin. [address] [place] [address], [address], [place], [place], [facility], [place]. tel:[phone] Referring Provider: Kirby Rm, [address] [address], [place], [address]. tel:[phone] [facility] [address], [place], [place], [address], [place] tel:[phone] [place] Pain in left wristStiffness of left wrist, not elsewhere classifiedEffusion, left wristWeaknessPrimar y osteoarthritis, unspecified wrist Feb-2 5-201 9 Stern Katherin. [address] [place] [address], [address], [place], [place], [facility], [place]. tel:[phone] Referring Provider: Kirby Rm, [address] [facility] [address] [facility], [place], [address]. tel:[phone] [facility] [address], [place], [place], [address], [place] tel:[phone] [place] Pain in left wristStiffness of left wrist, not elsewhere classifiedEffusion, left wristWeaknessPrimar y osteoarthritis, unspecified wrist Feb-2 1-201 9 Stern Katherin. [address] [place] [address], [address], [place], [address], [place]. tel:[phone] Referring Provider: Kirby Rm, [address] [facility] [address], [place], [address]. tel:[phone] [facility] [address], [place], [place], [address], [place] tel:[phone] [place] Pain in left wristStiffness of left wrist, not elsewhere classifiedEffusion, left wristWeaknessPrimar y osteoarthritis, unspecified wrist Feb-2 0-201 9 Stern Katherin. [address] [place] [address], [address], [place], [address], [place]. tel:[phone] Referring Provider: Kirby Rm, [address] [facility] [address] [facility], [place], [address]. tel:[phone] [facility] [address], [place], [place], [address], [place] tel:[phone] [place] Pain in left wristStiffness of left wrist, not elsewhere classifiedEffusion, left wristWeaknessPrimar y osteoarthritis, unspecified wrist 9 Stern Katherin. [address] [facility], [address], [place], [address], [place]. tel:[phone] Referring Provider: Kirby Rm, [address] [address], [place], [address]. tel:[phone] [facility] [address], [place], [place], [address], [place] tel:[phone] [place] Pain in left wristStiffness of left wrist, not elsewhere classifiedEffusion, left wristWeakness 9 Stern Katherin. [address] [place] [address], [address], [place], [address], [place]. tel:[phone] Referring Provider: Kirby Rm, [address] [address], [place], [address]. tel:[phone] [facility] [address], [place], [place], [address], [place] tel:[phone] [place] Pain in left wristStiffness of left wrist, not elsewhere classifiedEffusion, left wristWeakness 9 Stern Katherin. [address] [facility], [address], [place], [address], [place]. tel:[phone] Referring Provider: Kirby Rm, [address] [facility] [address] [facility], [place], [address]. tel:[phone] [facility], [place], [place], [address], [place] tel:[phone] [place] Pain in left wristStiffness of left wrist, not elsewhere classifiedEffusion, left wristWeakness Feb-1 1-201 9 Jarred Pandey. [address] [place] [address], [address], [facility], . tel:[phone] Referring Provider: Kirby Rm, [address], [facility]. tel:[phone], [id number], tel:[phone] [place] Pain in left wristStiffness of left wrist, not elsewhere classifiedEffusion, left wristWeakness Feb-0 8-201 9 Jarred Pandey. [address] [place] [address], [address], [facility], [place]. tel:[phone] Referring Provider: Kirby Rm, [address], [facility]. tel:[phone], [place], [address], tel:[phone] [place] Pain in left wristStiffness of left wrist, not elsewhere classifiedEffusion, left wristWeakness Feb-0 6-201 9 Jarred Pandey. [address] [place] [address], [facility], . tel:[phone] Referring Provider: Kirby Rm, [address], [facility]. tel:[phone] Family History Family Member Type Diagnosis Age At Onset No Information Payers Payer name Insurance type Covered alliance party ID Authorjamiea arthur(s) [employer] [place] [...]
--- OUTSIDE RECORDS SUMMARY | 2024-08-22 20:36 | XMS_ITS | Encounter Summary ---
Author Organization [facility] Healthcare Address [address] [place] [address] Care Team Providers Care Printer Maintainer Name Role Phone Unknown, Notinfile Primary Care Provider Unavail able Reason for Visit * Reason Comments Abdominal Pain Vomiting Encounter Details Date Type Department Care Team (Late st Contact Info) Description 08/22/2024 5:19 PM CDT - 08/22/2024 8:28 PM CDT Emergency [facility] Emergency Department [address] [place] [address] Discharge Disposition: Left without being seen Social History Tobacco Use Types Packs/Day Years [...] on file Legal Sex Male 1:47 AM [employer] IN WORK[employer] Gender Identity Not on file Sexual Orientation [...] 5:30 PM CDT documented in this encounter Medications at Time of Discharge albuterol HFA (PROVENTIL HFA,VENTOLIN HFA,PROAIR HFA) 90 mcg/actuation inhaler Inhale 1-2 puffs every 6 (six) hours as needed for shortness of breath or wheezing 1 each 08/15/2024 diazePAM (VALIUM) 10 mg tabletIndication s:Sedation Take 10 mg by mouth nightly as needed for anxiety. ibuprofen (ADVIL,MOTRIN) 600 mg tablet Take 1 tablet (600 mg total) by mouth every 6 (six) hours as needed for pain. 30 tablet 07/02/2018 oxyCODONE-acetam inophen (PERCOCET) 5-325 mg per tabletIndication s:Pain Take 1 tablet by mouth every 6 (six) hours as needed for pain. 20 tablet 07/02/2018 rosuvastatin (CRESTOR) 5 mg tabletIndication s:preventive Take 5 mg by mouth daily. documented as of this encounter Discharge Disposition Disposition Code Departure Means Destination Left without being seen documented in this encounter ED Notes * [...] documented in this encounter Plan of Treatment Pending Results Name Type Priority Associated Diagnoses Date /Time Pro B-type natriuretic peptide Lab STAT 08/22/2024 5:36 PM CDT Scheduled Orders Name Type Priority Associated Diagnoses [...] lymph pct 21.0(H) 0.0 - 0.0 % [facility] ([place]) RBC morphology Consistent with RBC Indicies [facility] ([place]) Platelet estimate Adequate CE [facility] ([place]) Blood 08/22/2024 5:36 PM CDT 08/22/2024 5:40 PM CDT Timo Holder MD LAB BLOOD ORDERABLES Final Result [facility] ([place]) 1 [facility] [employer] [place] [address] * eGFR (08/22/2024 5:36 PM CDT) eGFR [...] ORDERABLES Final Result [facility] ([place]) 1 [facility] [place] [address] * Lipase (08/22/2024 5:36 PM CDT) Lipase 95 10 - 99 Units/L Blood Venous blood specimen / Unknown 08/22/2024 5:36 PM CDT 08/22/2024 5:40 PM CDT Timo Holder MD LAB BLOOD ORDERABLES Final Result [facility] ([place]) 1 [facility] Department [place] [address] * Comprehensive metabolic panel (08/22/2024 5:36 PM CDT) Sodium 141 135 - 145 mmol/L Potassium, pl 4.6 3.3 - 4.9 mmol/L [facility] ([place] Chloride 99 97 - 110 mmol/L [facility] ([place]) CO2 31 22 - 32 mmol/L [facility] ([place]) Anion gap 11 2 - 15 mmol/L [facility] ([place]) BUN 19 6 - 25 mg/dL [facility] ([place]) Creatinine 0.82 0.80 - 1.30 mg/dL [facility] ([place]) Glucose 98 70 - 199 mg/dL [facility] ([place]) Comment: Interpretive Data Fasting glucose [...] Holder MD LAB BLOOD ORDERABLES Final Result [facility] ([place]) 1 [facility] Department of Laboratories [place] [id number] * (ABNORMAL) CBC with auto differential (08/22/2024 [...] LAB BLOOD ORDERABLES Final Result [facility] ([place]) 1 [facility] Department [place] [address] documented in this encounter Visit Diagnoses Not on filedocumented in this encounter Orders Nursing Count Last Ordered Date First Orde red Date MISCELLANEOUS NURSING CARE ORDER (SPECIFY) 1 08/22/2024 IV Count Last Ordered Date First Orde red Date SALINE LOCK IV 1 08/22/2024 documented in this encounter Care Teams Printer Maintainer Relationship Specialty Start Date End Date Unknown, Notinfile PCP - General 07/09/23 documented as of this encounter
--- OUTSIDE RECORDS SUMMARY | 2024-08-22 20:36 | XMS_ITS | Clinical Summary ---
Author Organization [facility] Address [address] [place] [address] Care Team Providers Care Review Appraiser Name Role Phone Unknown, Notinfile Primary Care [...] needed Assessment & Plan (07/23/2018 12:58 PM PERSONNEL ARBITRATOR): Reports compliance with wound care/splinting/hand therapy Healing [...] Care Team Description 08/22/2024 5:19 PM CDT - 08/22/2024 8:28 PM CDT Emergency [facility] Emergency Department [address] [place] [address] Discharge Disposition: Left without being seen 08/15/2024 8:47 AM PERSONNEL ARBITRATOR - 08/15/2024 3:05 PM PERSONNEL ARBITRATOR Emergency [facility] Emergency Department [address] [place] [address] Gayla Malcolm MD Atrial fibrillation with controlled ventricular rate (HCC) (Primary Dx); Acute on chronic combined systolic and diastolic congestive heart failure (HCC) Discharge Disposition: Discharge to home or self care 07/13/2024 Telephone [facility] [address] [facility] [address] [address] Chris Tolentino MD from Last 3 Months [...] on file Legal Sex Male 1:47 AM PERSONNEL ARBITRATOR Gender Identity Not on file Sexual Orientation [...] of 3) 06/13/2022 04/18/2022, 11/03 Covid-19 Vaccine (4 - 2023-2 5 season) 2024 05/05/2023, 04/18/2021, 08/23/2020 Influenza [...] history exists Medical Devices Implanted Type Area Senior System Operator Device Identifier Shelf Expiration Date Model / Serial / Lot [employer]point 8600-5x05 Graftjacket [id number] Regenerative Nonmesh Standard Graft - [id number] Implanted:Qty: 1 on 07/06/2018 by Kirby Rm III, MD at [facility] Left: Wrist [employer]point 01/13/2020 8600-5X05 / / [id number] Procedures Procedure Name Priority Date/Time Associated Diagnosis Comments MANUAL DIFFERENTIAL STAT 08/22/2024 5 :36 PM CDT EGFR STAT 08/22/2024 5:36 PM CDT LIPASE STAT 08/22/2024 5:36 PM CDT COMPREHENSIVE METABOLIC PANEL STAT 08/22/2024 5:36 PM CDT CBC WITH AUTO DIFFERENTIAL STAT 08/22/2024 5:36 PM CDT TROPONIN T HIGH-SENSITIVITY 2-HOUR Timed 08/15/2024 11:29 AM PERSONNEL ARBITRATOR URINALYSIS AND REFLEX TO MICROSCOPIC AND CULTURE STAT 08/15/2024 11:29 AM PERSONNEL ARBITRATOR EGFR STAT 08/15/2024 10:37 AM PERSONNEL ARBITRATOR HEPATIC FUNCTION PANEL STAT 10:37 AM PERSONNEL ARBITRATOR PRO B-TYPE NATRIURETIC PEPTIDE Add-On 08/15/2024 10:37 AM PERSONNEL ARBITRATOR CREATININE STAT 08/15/2024 10:37 AM PERSONNEL ARBITRATOR CBC WITHOUT DIFFERENTIAL STAT 08/15/2024 10:37 AM PERSONNEL ARBITRATOR TROPONIN T HIGH-SENSITIVITY 2-HOUR Timed 08/15/2024 10:37 AM PERSONNEL ARBITRATOR EGFR STAT 08/15/2024 9:00 AM PERSONNEL ARBITRATOR APTT STAT 08/15/2024 9:00 AM PERSONNEL ARBITRATOR PROTIME-INR STAT 08/15/2024 9:00 AM PERSONNEL ARBITRATOR DIFFERENTIAL AUTO STAT 08/15/2024 9:0 0 AM PERSONNEL ARBITRATOR TROPONIN T HIGH-SENSITIVITY SERIES (BASELINE, 2HR, 4HR, 6HR) STAT 08/15/2024 9:00 AM PERSONNEL ARBITRATOR CBC WITH AUTO DIFFERENTIAL STAT 08/15/2024 9:00 AM PERSONNEL ARBITRATOR COMPREHENSIVE METABOLIC PANEL STAT 08/15/2024 9:00 AM PERSONNEL ARBITRATOR INFLUENZA A/B, RSV, AND COVID-19 PCR STAT 08/15/2024 9:00 AM PERSONNEL ARBITRATOR XR CHEST PA LATERAL 2 VIEWS ED 08/15/2024 8:49 AM PERSONNEL ARBITRATOR ECG 12-LEAD STAT 08/15/2024 8:26 AM PERSONNEL ARBITRATOR COLONOSCOPY 07/16/2017 7:32 AM PERSONNEL ARBITRATOR from Last 3 Months or Most Recently [...] ORDERABLES Final Result [facility] ([place]) [address] [facility] [place] [address] * (ABNORMAL) CBC with auto differential (08/22/2024 [...] ORDERABLES Final Result [facility] 1 [facility] [place] [address] * (ABNORMAL) Manual Differential (08/22/2024 5:36 PM CDT) Differential Manual Cells Counted 100 [facility] ([place]) Neutrophil abs 9.0(H) 1.5 - [...] ORDERABLES Final Result [facility] ([place]) [address] [facility] [place] [address] * Lipase (08/22/2024 5:36 PM CDT) Pathologist [facility] Emergency Department Lipase 95 10 - 99 Units/L Blood Venous blood specimen / Unknown 08/22/2024 5:36 PM CDT 08/22/2024 5:40 PM CDT us Timo Holder MD LAB BLOOD ORDERABLES Final Result [facility] ([place]) [address] [facility] [place] [address] * Comprehensive metabolic panel (08/22/2024 5:36 PM [...] Result Performing Organization Address [facility] Co de Phone Number [facility] ([place]) 1 [facility] [place] [address] * (ABNORMAL) Troponin T high-sensitivity 2-hour (08/15/2024 11:29 AM PERSONNEL ARBITRATOR) Trop T hs 26(H) <=22 ng/L Comment: Interpretive Data For further hscTnT resources including the diagnostic algorithm and an aid in interpretation, copy and paste this link: https://nrl.testcatalog.org/show/hsTrop Current Interpretive Data last revised 2020. Trop T hs delta See Comment ng/L CE [facility] ([place]) Comment:unable to calculate Trop T hs pct delta See Comment % [facility] ([place]) Comment:unable to calculate Trop T hs interp See Comment C ERNZULLY [facility] ([place]) Comment:unable to calculate Blood 08/15/2024 11:2 9 AM PERSONNEL ARBITRATOR 08/15/2024 11:31 AM PERSONNEL ARBITRATOR Gayla Malcolm MD LAB BLOOD ORDERABLES Alanna l Result Performing Organization Address [facility] Co de Phone Number [facility] ([place]) 1 [facility] [place] [address] * Urinalysis reflex to microscopic and culture Urine (08/15/2024 11:29 AM PERSONNEL ARBITRATOR) Color, ur Straw Yellow Clarity, ur Clear Clear [facility] ([place]) Specific gravity, ur 1.008 1.003 - 1.030 [facility] ([place]) pH, urine 6.5 [facility] ([place]) Comment: Interpretive Data U rine pH is affected by diet, medications, systemic acid-base disturbances, and renal tubular function. pH may affect urinary stone formation. For example, urine pH below 6.0 may help reduce the tendency for calcium phosphate stones and pH greater than 6.0 may reduce the tendency for uric acid stone formation. Source: [facility] Current Interpretive Data was last revised [...] [facility] ([place]) Urine 08/15/2024 11:2 9 AM PERSONNEL ARBITRATOR 08/15/2024 11:31 AM PERSONNEL ARBITRATOR Gayla Malcolm MD LAB MICROBIOLOGY - GENERA L ORDERABLES Final Result [facility] ([place]) [address] [facility] [place] [address] * (ABNORMAL) Troponin T high-sensitivity 2-hour (08/15/2024 10:37 AM PERSONNEL ARBITRATOR) Trop T hs 26(H) <=22 ng/L Comment: Interpretive Data For further hscTnT resources including the diagnostic algorithm and an aid in interpretation, copy and paste this link: https://nrl.testcatalog.org/show/hsTrop Current Interpretive Data last revised 2020. Trop T hs interp See Comment C ELISA [facility] ([place]) Comment:Delta calculation an d interpretation not available. Blood 08/15/2024 10:3 7 AM PERSONNEL ARBITRATOR 08/15/2024 10:38 AM PERSONNEL ARBITRATOR Gayla Malcolm MD LAB BLOOD ORDERABLES Alanna l Result Performing Organization Address City/[facility]/ZIP Co de Phone Number [facility] [place]) [address] [facility] [place] [address] * eGFR (08/15/2024 10:37 AM PERSONNEL ARBITRATOR) eGFR >90 >=60 mL/min/1. 73 m2 Comment: [...] reviewed 2021. Blood 08/15/2024 10:3 7 AM PERSONNEL ARBITRATOR 08/15/2024 10:39 AM PERSONNEL ARBITRATOR Gayla Malcolm MD LAB BLOOD ORDERABLES Alanna l Result Performing Organization Address City/[facility] Co de Phone Number [facility] [address] [facility] [place] [address] * (ABNORMAL) Pro B-type natriuretic peptide (08/15/2024 10:37 AM PERSONNEL ARBITRATOR) NT-proBNP 4,819(H) <=450 pg/mL Comment: Interpretive Comments: [...] Heart J. 2006:27:330-337. 2. Molly RW, Brenda AM. J. AM Jesus Cardiol: Cardiovasc Imag. 2009;2: 216- 225. Interpretive Data Last Revised Date: 2018. Blood 08/15/2024 10:3 7 AM PERSONNEL ARBITRATOR 08/15/2024 10:39 AM PERSONNEL ARBITRATOR Gayla Malcolm MD LAB BLOOD ORDERABLES Edit ed Result - Final [facility] ([place]) [address] [facility] [place] [address] * (ABNORMAL) CBC without differential (08/15/2024 10:37 AM PERSONNEL ARBITRATOR) WBC 8.8 3.8 - 9.9 K/cumm Hgb 12.3(L) 13.0 - 17.5 g/dL [facility] ([place]) Hct 40.0 38.9 - 50.3 % [facility] Plt 209 150 - 400 K/cumm [facility]) MPV 9.8 9.1 - 12.3 fL [facility] RBC 4.40 4.30 - 5.80 M/cumm [facility]) MCV 90.9 81.3 - 96.4 fL [facility] ([place]) MCH 28.0 27.1 - 33.3 pg [facility] ([place]) MCHC 30.8(L) 32.3 - 35.7 g/dL [facility] ([place]) RDW CV 14.2 11.1 - 14.9 % [facility] ([place]) RDW SD 47.1 35.7 - 48.1 fL [facility] ([place]) NRBC abs 0.00 0.00 - 0.01 K/cumm [facility] ([place]) Blood 08/15/2024 10:3 7 AM PERSONNEL ARBITRATOR 08/15/2024 10:38 AM PERSONNEL ARBITRATOR Narrative [facility] ([place]) - 08/15/2024 10:41 AM PERSONNEL ARBITRATOR Baseline prior to enoxaparin initiation. Gayla Malcolm MD LAB BLOOD ORDERABLES Alanna l Result Performing Organization Address City/[facility]/ZIP Co de Phone Number [facility] ([place]) [address] [facility] [place] [address] * (ABNORMAL) Creatinine (08/15/2024 10:37 AM PERSONNEL ARBITRATOR) Creatinine 0.72(L) 0.80 - 1.30 mg/dL Blood 08/15/2024 10:3 7 AM PERSONNEL ARBITRATOR 08/15/2024 10:39 AM PERSONNEL ARBITRATOR Narrative [facility] ([place]) - 08/15/2024 11:27 AM PERSONNEL ARBITRATOR Baseline prior to enoxaparin initiation. Gayla Malcolm MD LAB BLOOD ORDERABLES Alanna l Result [facility] ([place]) [address] [facility] [place] [address] * Hepatic function panel (08/15/2024 10:37 AM PERSONNEL ARBITRATOR) Bilirubin, total 0.3 0.1 - 1.2 mg/dL Bilirubin, direct 0.1 0.1 - 0.3 mg/dL [facility] ([place]) Protein, pl 6.9 6.5 - 8.5 g/dL [facility]) Albumin 3.8 3.5 - 5.0 g/dL [facility] ([place]) Alk phos 69 40 - 130 Units/L [facility]) ALT 14 7 - 55 Units/L [facility] AST 21 10 - 50 Units/L [facility]) Blood 08/15/2024 10:3 7 AM PERSONNEL ARBITRATOR 08/15/2024 10:39 AM PERSONNEL ARBITRATOR Gayla Malcolm MD LAB BLOOD ORDERABLES Alanna l Result Performing Organization Address [facility] Co de Phone Number [facility] ([place]) [address] [place] [address] [place] [address] * (ABNORMAL) Troponin T high-sensitivity series (baseline, 2hr, 4hr, 6hr) (08/15/2024 9:00 AM PERSONNEL ARBITRATOR) Pathologist [facility] Trop T hs 23(H) <=22 ng/L Comment: Interpretive Data For further hscTnT resources including the diagnostic algorithm and an aid in interpretation, copy and paste this link: https://nrl.testcatalog.org/show/hsTrop Current Interpretive Data last revised 2020. Testing performed by: [facility], [address] [place] [address], [place]., [address] Blood 08/15/2024 9:00 AM PERSONNEL ARBITRATOR 08/15/2024 9:06 AM PERSONNEL ARBITRATOR Gayla Malcolm MD LAB BLOOD ORDERABLES Alanna l Result Performing Organization Address [facility]/ZIP Co de Phone Number [facility] ([place]) 1 [facility] [place] [address] * Influenza A/B, RSV, and COVID-19 PCR Nasopharyngeal (08/15/2024 9:00 AM PERSONNEL ARBITRATOR) COVID-19 RNA Negative Negative Influenza A RNA Negative Negative [facility] ([place]) Influenza B RNA Negative Negative [facility] ([place]) RSV RNA Negative Negative [facility] ([place]) Comment: Interpretive data: Testing performed by [facility]. This test is performed using the [employer] Xpert Xpress CoV-2/Flu/RSV plus assay. This is a multiplex, real- time reverse transcriptase PCR assay intended for the qualitative detection of nucleic acid from SARS-CoV-2, influenza A, influenza B, and respiratory syncytial virus. This assay has been cleared by the [place] Food and Drug administration. The performance characteristics have been verified by the [facility]. Results must be considered in the clinical context, and a negative result does not rule out infection. Interpretive Data last revised 2023 Nasopharyngeal 08/15/2024 9: 00 AM PERSONNEL ARBITRATOR 08/15/2024 9:06 AM PERSONNEL ARBITRATOR Narrative [facility] ([place]) - 08/15/2024 9:50 AM PERSONNEL ARBITRATOR Is the Patient experiencing symptoms consistent with COVID?->Yes us Gayla Malcolm MD LAB MICROBIOLOGY - GENERA L ORDERABLES Final Result [facility] ([place]) [address] [facility] [place] [address] * eGFR (08/15/2024 9:00 AM PERSONNEL ARBITRATOR) eGFR >90 >=60 mL/min/1. 73 m2 Comment: [...] was last reviewed 2021. Testing performed by: [facility], [address] [place] [address], [place]., [address] Blood 08/15/2024 9:00 AM PERSONNEL ARBITRATOR 08/15/2024 10:54 AM PERSONNEL ARBITRATOR us Gayla Malcolm MD LAB BLOOD ORDERABLES Alanna grimaldo Result [facility] ([place]) [address] [facility] [place] [address] * Differential, auto (08/15/2024 9:00 AM PERSONNEL ARBITRATOR) Neutrophil abs 4.5 1.5 - 6.5 K/cumm [...] revised on 2017. Blood 08/15/2024 9:00 AM PERSONNEL ARBITRATOR 08/15/2024 9:06 AM PERSONNEL ARBITRATOR us Gayla Malcolm MD LAB BLOOD ORDERABLES Alanna l Result [facility] ([place]) [address] [facility] [place] [address] * (ABNORMAL) CBC with auto differential (08/15/2024 9:00 AM PERSONNEL ARBITRATOR) WBC 8.1 3.8 - 9.9 K/cumm Hgb [...] SD 47.2 35.7 - 48.1 fL [facility] ([place]) NRBC abs 0.00 0.00 - 0.01 K/cumm [facility] ([place]) Blood 08/15/2024 9:00 AM PERSONNEL ARBITRATOR 08/15/2024 9:06 AM PERSONNEL ARBITRATOR Gayla Malcolm MD LAB BLOOD ORDERABLES Alanna l Result Performing Organization Address [facility] Co de Phone Number [facility] ([place]) 1 [facility] [place] [address] * aPTT (08/15/2024 9:00 AM PERSONNEL ARBITRATOR) aPTT 36 28 - 38 sec [facility] ([place]) Comment: Interpretive Data Heparin therapeutic range: 66.0 - 100.0 seconds. Range based on correlation with therapeutic heparin activity range of 0.3 - 0.7 Units/mL. Current interpretive data was last revised on 2023. Blood 08/15/2024 9:00 AM PERSONNEL ARBITRATOR 08/15/2024 10:24 AM PERSONNEL ARBITRATOR Narrative [facility] ([place]) - 08/15/2024 10:31 AM PERSONNEL ARBITRATOR Baseline prior to enoxaparin initiation. Gayla Malcolm MD LAB BLOOD ORDERABLES Alanna l Result Performing Organization Address [facility] Co de Phone Number [facility] ([place]) 1 [facility] [place] [address] * Protime-INR (08/15/2024 9:00 AM PERSONNEL ARBITRATOR) PT 12.8 9.7 - 13.0 sec [facility] ([place]) INR 1.18 0.90 - 1.20 [facility] ([place]) Comment: Interpretive data Oral anticoagulant therapeutic ranges: Venous thromboembolism prophylaxis or treatment: 2.0-3.0 CARDIOLOGY Standard range: 2.0-3.0 High-intensity range: 2.5-3.5 Refer to indication-specific guidelines for appropriate target ranges for prosthetic heart valve replacement. Current interpretive data was last revised on 2019. Blood 08/15/2024 9:00 AM PERSONNEL ARBITRATOR 08/15/2024 10:24 AM PERSONNEL ARBITRATOR Narrative [facility] ([place] - 08/15/2024 10:31 AM PERSONNEL ARBITRATOR Baseline prior to enoxaparin initiation. us Gayla Malcolm MD LAB BLOOD ORDERABLES Alanna l Result [facility] ([place]) [address] [facility] [place] [address] * (ABNORMAL) Comprehensive metabolic panel (08/15/2024 9:00 AM PERSONNEL ARBITRATOR) Sodium 146(H) 135 - 145 mmol/L Comment:Testing performed by : [address] [address] Potassium, pl 4.5 3.3 - 4.9 mmol/L [facility] ([place]) Comment:Testing performed by : [address], [address] Chloride 108 97 - 110 mmol/L [facility] ([place]) Comment:Testing performed by : [address] [address] CO2 27 22 - 32 mmol/L [facility] ([place]) Comment:Testing performed by : [address] [address] Anion gap 11 2 - 15 mmol/L [facility] ([place]) Comment:Testing performed by : [address], [address] BUN 14 6 - 25 mg/dL [facility] ([place]) Comment:Testing performed by : [address] [address] Creatinine 0.77(L) 0.80 - 1.30 mg/dL [facility] ([place]) Comment:Testing performed by : [address], [address] Glucose 98 70 - 199 mg/dL [facility] [...] was last revised 2022. Testing performed by: [facility], [address] [place] [address]., [address] Calcium 8.8 8.5 - 10.3 mg/dL [facility] ([place]) Comment:Testing performed by : [address], [address] Bilirubin, total 0.3 0.1 - 1.2 mg/dL [facility] ([place]) Comment:Testing performed by : [address], [address] Protein, pl 7.2 6.5 - 8.5 g/dL [facility] ([place]) Comment:Testing performed by : [address], [address] Albumin 3.8 3.5 - 5.0 g/dL [facility] ([place]) Comment:Testing performed by : [address], [address] Alk phos 71 40 - 130 Units/L [facility] Comment:Testing performed by : [address], [address] ALT 17 7 - 55 Units/L [facility] Comment:Testing performed by : [address], [address] AST 32 10 - 50 Units/L [facility] Comment:Testing performed by : [address], [address] Blood 08/15/2024 9:00 AM PERSONNEL ARBITRATOR 08/15/2024 9:06 AM PERSONNEL ARBITRATOR Gayla Malcolm MD LAB BLOOD ORDERABLES Alanna grimaldo Result [facility] [place] [facility] [place] [address] * XR Chest PA Lateral 2 Views (08/15/2024 8:49 AM PERSONNEL ARBITRATOR) Anatomical Region Laterality Modality Body, Chest N/A Computed Radiogr aphy 08/15/2024 9:00 AM PERSONNEL ARBITRATOR Narrative 08/15/2024 9:01 AM PERSONNEL ARBITRATOR EXAM DESCRIPTION: XR CHEST PA LATERAL 2 [...] Amari Roberts M.D. MM: MM Report ID: [id number] Reading Location: [id number] Procedure Note Amari Roberts MD - 08/15/2024 [...] Amari Roberts M.D. MM: MM Report ID: [id number] Reading Location: [id number] Gayla Malcolm MD IMG XR PROCEDURES Final R esult * COLONOSCOPY (07/16/2017 7:32 AM PERSONNEL ARBITRATOR) Anatomical Region Laterality Modality Other Narrative Procedure Note Michael Bran MD - 07/16/2017 7:32 AM CST [facility] Patient Name: Js Contreras Procedure Date: 07/16/2017 7:32 AM Date of : 1950 Admit Type: Outpatient Age: 67 Gender: Male Attending MD: Michael Gonzalez M.D. Room: [facility] ENDOSCOPY ROOM 2 Note Status: Finalized Procedure: Colonoscopy Indications: High risk colon cancer surveillance: Personalhistory of colonic polyps Referring MD: Terra Pineda M.D. Providers: Michael A. Stephen Shaw, M.D. Impression: - Non-bleeding internal hemorrhoids. - [...] scope was passed under direct vision.The Colonoscope [id number] was introducedthrough the anus and advanced to [...] 7:32 AM Procedure Code(s): --- Professional --- 43725, Colonoscopy, flexible; with removal of tumor(s), polyp(s), or other lesion(s) by snare technique Diagnosis Code(s): --- Professional --- Z86.010, Personal history of colonic polyps K64.8, Other hemorrhoids D12.5, Benign neoplasm of sigmoid colon K57.30, Diverticulosis of large intestine without perforation orabscess without bleeding CPT copyright 2014 [employer]. All rights reserved. The codes documented in this report are preliminary and upon lock installer reviewmay be revised to meet current compliance requirements. Recognized by the [employer] for promoting quality in endoscopy Michael Shaw MD ENDOSCOPY PROCEDUR ES Final Result from Last 3 Months or Most Recently Relevant to Health Maintenance Insurance [employer] CHOICE MEDICARE PPO Member Subscriber Plan / Payer (Ef fective 2017-Present) Name:Js Contreras Relation to Subscriber:Self Name:Js Contreras Payer ID:[id number] (NAIC) Type:MEDICARE RISK OTHER Address: [address] MEDICARE [facility] MEDICARE GENERIC RISK OTHER [employer] CHOICE MEDICARE PPO MEDICARE [facility] CARE [employer] MEDICARE [employer] MEDICARE SOLUTIONS Care Teams Review Appraiser Relationship Specialty Start Date End Date Unknown, Notinfile PCP - General 07/09/23
--- OUTSIDE RECORDS SUMMARY | 2024-08-22 20:36 | XMS_ITS | Clinical Summary ---
Author Organization [facility] Address [address] [place] [address] Phone Care Team Providers Care Animal Sitter Name Role Phone Chris Tolentino MD Unavailable Terra Pineda MD Unavailable Provider, None Primary [...] Covid-19 Vaccine, Vector-nr, Rs-ad26, Pf, 0.5 Ml ([employer]) 08/23/2020 Hepatitis A And Hepatitis B Vaccine [...] topic Insurance MEDICARE C [employer] Care Teams Animal Sitter Relationship Specialty Start Date End Date Provider, None [place] PCP - General 05/10/21 Chris Tolentino MD Consulting Physician Orthopaedic Sports Medicine 04/07/18 Terra Pineda MD [address] [address] Consulting Physician Internal Medicine 04/07/18
--- OUTSIDE RECORDS SUMMARY | 2024-08-22 20:36 | XMS_ITS | Referral Summary ---
Author Organization [facility] Address [address] [place] [address] Care Team Providers Care Row Boss Name Role Phone Unknown, Notinfile Primary Care Provider Unavail able Encounters Date Type Department Care Team Description 08/22/2024 5:19 PM CDT - 08/22/2024 8:28 PM CDT Emergency [facility] Emergency Department 1 [place] [address] Discharge Disposition: Left without being seen 08/15/2024 8:47 AM ROTARY DRILL OPERATOR - 08/15/2024 3:05 PM ROTARY DRILL OPERATOR Emergency [facility] Emergency Department 1 [place] [address] Gayla Malcolm MD Atrial fibrillation with controlled ventricular rate (HCC) (Primary Dx); Acute on chronic combined systolic and diastolic congestive heart failure (HCC) Discharge Disposition: Discharge to home or self care 07/13/2024 Telephone [facility] [address] [facility] [address] [place] [address] Chris Tolentino MD from Last [...] needed Assessment & Plan (07/23/2018 12:58 PM ROTARY DRILL OPERATOR): Reports compliance with wound care/splinting/hand therapy [...] on file Legal Sex Male 1:47 AM ROTARY DRILL OPERATOR Gender Identity Not on file Sexual [...] on file Medical Devices Implanted Type Area Machine Maintenance Servicer Device Identifier Shelf Expiration Date Model / Serial / Lot [employer] 8600-5x05 Graftjacket [id number] Regenerative Nonmesh Standard Graft - [id number] Implanted:Qty: 1 on 07/06/2018 by Kirby Rm III, MD at [facility] Left: Wrist [employer] 01/13/2020 8600-5X05 / / [id number] Procedures Procedure Name Priority Date/Time Associated Diagnosis Comments MANUAL DIFFERENTIAL STAT 08/22/2024 5 :36 PM CDT EGFR STAT 08/22/2024 5:36 PM CDT LIPASE STAT 08/22/2024 5:36 PM CDT COMPREHENSIVE METABOLIC PANEL STAT 08/22/2024 5:36 PM CDT CBC WITH AUTO DIFFERENTIAL STAT 08/22/2024 5:36 PM CDT TROPONIN T HIGH-SENSITIVITY 2-HOUR Timed 08/15/2024 11:29 AM ROTARY DRILL OPERATOR URINALYSIS AND REFLEX TO MICROSCOPIC AND CULTURE STAT 08/15/2024 11:29 AM ROTARY DRILL OPERATOR EGFR STAT 08/15/2024 10:37 AM ROTARY DRILL OPERATOR HEPATIC FUNCTION PANEL STAT 10:37 AM ROTARY DRILL OPERATOR PRO B-TYPE NATRIURETIC PEPTIDE Add-On 08/15/2024 10:37 AM ROTARY DRILL OPERATOR CREATININE STAT 08/15/2024 10:37 AM ROTARY DRILL OPERATOR CBC WITHOUT DIFFERENTIAL STAT 08/15/2024 10:37 AM ROTARY DRILL OPERATOR TROPONIN T HIGH-SENSITIVITY 2-HOUR Timed 08/15/2024 10:37 AM ROTARY DRILL OPERATOR EGFR STAT 08/15/2024 9:00 AM ROTARY DRILL OPERATOR APTT STAT 08/15/2024 9:00 AM ROTARY DRILL OPERATOR PROTIME-INR STAT 08/15/2024 9:00 AM ROTARY DRILL OPERATOR DIFFERENTIAL AUTO STAT 08/15/2024 9:0 0 AM ROTARY DRILL OPERATOR TROPONIN T HIGH-SENSITIVITY SERIES (BASELINE, 2HR, 4HR, 6HR) STAT 08/15/2024 9:00 AM ROTARY DRILL OPERATOR CBC WITH AUTO DIFFERENTIAL STAT 08/15/2024 9:00 AM ROTARY DRILL OPERATOR COMPREHENSIVE METABOLIC PANEL STAT 08/15/2024 9:00 AM ROTARY DRILL OPERATOR INFLUENZA A/B, RSV, AND COVID-19 PCR STAT 08/15/2024 9:00 AM ROTARY DRILL OPERATOR XR CHEST PA LATERAL 2 VIEWS ED 08/15/2024 8:49 AM ROTARY DRILL OPERATOR ECG 12-LEAD STAT 08/15/2024 8:26 AM ROTARY DRILL OPERATOR COLONOSCOPY 07/16/2017 7:32 AM ROTARY DRILL OPERATOR from Last 3 Months or Most [...] Holder MD LAB BLOOD ORDERABLES Final Result [facility] ([place] [address] [facility] [place] [address] * (ABNORMAL) CBC with auto differential (08/22/2024 [...] ORDERABLES Final Result [facility] ([place]) [address] [facility] [place] [address] * (ABNORMAL) Manual Differential (08/22/2024 5:36 PM [...] LAB BLOOD ORDERABLES Final Result [facility] ([place]) [address] [place] [address] * Lipase (08/22/2024 5:36 PM CDT) Lipase 95 10 - 99 Units/L Blood Venous blood specimen / Unknown 08/22/2024 5:36 PM CDT 08/22/2024 5:40 PM CDT Timo Holder MD LAB BLOOD ORDERABLES Final Result Performing Organization Address City/[facility] Co de Phone Number [facility] ([place]) [address] [place] [address] * Comprehensive metabolic panel (08/22/2024 5:36 PM CDT) Pathologist [facility] Sodium 141 135 - 145 mmol/L Potassium, pl 4.6 3.3 - 4.9 mmol/L [facility] ([place]) Chloride 99 97 - 110 mmol/L [facility] ([place]) CO2 31 22 - 32 mmol/L [facility] ([place]) Anion gap 11 2 - 15 mmol/L [facility] ([place]) BUN 19 6 - 25 mg/dL [facility] ([place]) Creatinine 0.82 0.80 - 1.30 mg/dL [facility] ([place]) Glucose 98 70 - 199 mg/dL [facility] ([place]) Comment: Interpretive Data Fasting glucose >/= [...] BLOOD ORDERABLES Final Result Performing Organization Address [facility] Co de Phone Number [facility] ([place]) [address] [facility] [place] [address] * (ABNORMAL) Troponin T high-sensitivity 2-hour (08/15/2024 11:29 AM ROTARY DRILL OPERATOR) Trop T hs 26(H) <=22 ng/L [...] to calculate Blood 08/15/2024 11:2 9 AM ROTARY DRILL OPERATOR 08/15/2024 11:31 AM ROTARY DRILL OPERATOR us Gayla Malcolm MD LAB BLOOD ORDERABLES Alanna l Result Performing Organization Address City/[facility]/ZIP Co de Phone Number [facility] ([place]) [address] [facility] [place] [address] * Urinalysis reflex to microscopic and culture Urine (08/15/2024 11:29 AM ROTARY DRILL OPERATOR) Color, ur Straw Yellow Clarity, ur [...] tendency for uric acid stone formation. Source: [facility] Current Interpretive Data was last revised on [...] [facility] ([place]) Urine 08/15/2024 11:2 9 AM ROTARY DRILL OPERATOR 08/15/2024 11:31 AM ROTARY DRILL OPERATOR us Gayla Malcolm MD LAB MICROBIOLOGY - GENERA L ORDERABLES Final Result [facility] ([place]) [address] [facility] [place] [address] * (ABNORMAL) Troponin T high-sensitivity 2-hour (08/15/2024 10:37 AM ROTARY DRILL OPERATOR) Trop T hs 26(H) <=22 ng/L Comment: Interpretive Data For further hscTnT resources including the diagnostic algorithm and an aid in interpretation, copy and paste this link: https://nrl.testcatalog.org/show/hsTrop Current Interpretive Data last revised 2020. Trop T hs interp See Comment C ELISA [facility] ([place]) Comment:Delta calculation an d interpretation not available. Blood 08/15/2024 10:3 7 AM ROTARY DRILL OPERATOR 08/15/2024 10:38 AM ROTARY DRILL OPERATOR Gayla Malcolm MD LAB BLOOD ORDERABLES Alanna l Result [facility] ([place]) [address] [facility] [place] [address] * eGFR (08/15/2024 10:37 AM ROTARY DRILL OPERATOR) eGFR >90 >=60 mL/min/1. 73 m2 [...] reviewed 2021. Blood 08/15/2024 10:3 7 AM ROTARY DRILL OPERATOR 08/15/2024 10:39 AM ROTARY DRILL OPERATOR Gayla Malcolm MD LAB BLOOD ORDERABLES Alanna l Result Performing Organization Address City/[facility]/ZIP Co de Phone Number [facility] ([place]) [address] [facility] [place] [address] * (ABNORMAL) Pro B-type natriuretic peptide (08/15/2024 10:37 AM ROTARY DRILL OPERATOR) NT-proBNP 4,819(H) <=450 pg/mL Comment: Interpretive [...] Date: 2018. Blood 08/15/2024 10:3 7 AM ROTARY DRILL OPERATOR 08/15/2024 10:39 AM ROTARY DRILL OPERATOR us Gayla Malcolm MD LAB BLOOD ORDERABLES Edit ed Result - Final [facility] [place] [address] [facility] Department [place] [address] * (ABNORMAL) CBC without differential (08/15/2024 10:37 AM ROTARY DRILL OPERATOR) WBC 8.8 3.8 - 9.9 K/cumm [...] RDW CV 14.2 11.1 - 14.9 % [facility] ([place]) RDW SD 47.1 35.7 - 48.1 fL [facility] ([place]) NRBC abs 0.00 0.00 - 0.01 K/cumm [facility] ([place]) Blood 08/15/2024 10:3 7 AM ROTARY DRILL OPERATOR 08/15/2024 10:38 AM ROTARY DRILL OPERATOR Narrative [facility] ([place]) - 08/15/2024 10:41 AM ROTARY DRILL OPERATOR Baseline prior to enoxaparin initiation. Gayla Malcolm MD LAB BLOOD ORDERABLES Alanna l Result [facility] ([place]) [address] [facility] Department [place] [address] * (ABNORMAL) Creatinine (08/15/2024 10:37 AM ROTARY DRILL OPERATOR) Creatinine 0.72(L) 0.80 - 1.30 mg/dL Blood 08/15/2024 10:3 7 AM ROTARY DRILL OPERATOR 08/15/2024 10:39 AM ROTARY DRILL OPERATOR Narrative [facility] ([place]) - 08/15/2024 11:27 AM ROTARY DRILL OPERATOR Baseline prior to enoxaparin initiation. Gayla Malcolm MD LAB BLOOD ORDERABLES Alanna l Result [facility] ([place]) [address] [place] [address] * Hepatic function panel (08/15/2024 10:37 AM ROTARY DRILL OPERATOR) Bilirubin, total 0.3 0.1 - 1.2 mg/dL Bilirubin, direct 0.1 0.1 - 0.3 mg/dL [facility] ([place]) Protein, pl 6.9 6.5 - 8.5 g/dL [facility] ([place]) Albumin 3.8 3.5 - 5.0 g/dL [facility] ([place]) Alk phos 69 40 - 130 Units/L [facility] ([place]) ALT 14 7 - 55 Units/L [facility] ([place]) AST 21 10 - 50 Units/L [facility] ([place]) Blood 08/15/2024 10:3 7 AM ROTARY DRILL OPERATOR 08/15/2024 10:39 AM ROTARY DRILL OPERATOR Gayla Malcolm MD LAB BLOOD ORDERABLES Alanna grimaldo Result Performing Organization Address [facility] Co de Phone Number [facility] ([place]) [address] [place] [address] * (ABNORMAL) Troponin T high-sensitivity series (baseline, 2hr, 4hr, 6hr) (08/15/2024 9:00 AM ROTARY DRILL OPERATOR) Trop T hs 23(H) <=22 ng/L Comment: Interpretive Data For further hscTnT resources including the diagnostic algorithm and an aid in interpretation, copy and paste this link: https://nrl.testcatalog.org/show/hsTrop Current Interpretive Data last revised 2020. Testing performed by: [facility], [address] [place] [address], [place]., [address] Blood 08/15/2024 9:00 AM ROTARY DRILL OPERATOR 08/15/2024 9:06 AM ROTARY DRILL OPERATOR Gayla Malcolm MD LAB BLOOD ORDERABLES Alanna l Result [facility] [place]) [address] [facility] [place] [address] * Influenza A/B, RSV, and COVID-19 PCR Nasopharyngeal (08/15/2024 9:00 AM ROTARY DRILL OPERATOR) [facility] COVID-19 RNA Negative Negative Influenza A RNA Negative Negative [facility] ([place]) Influenza B RNA Negative Negative [facility] ([place]) RSV RNA Negative Negative [facility] ([place]) Comment: Interpretive data: Testing performed by [facility]. This test is performed using the FIRE1 Xpert Xpress CoV-2/Flu/RSV plus assay. This is a multiplex, real- time reverse transcriptase PCR assay intended for the qualitative detection of nucleic acid from SARS-CoV-2, influenza A, influenza B, and respiratory syncytial virus. This assay has been cleared by the [place] Food and Drug administration. The performance characteristics have been verified by the [facility]. Results must be considered in the clinical context, and a negative result does not rule out infection. Interpretive Data last revised 2023 Nasopharyngeal 08/15/2024 9: 00 AM ROTARY DRILL OPERATOR 08/15/2024 9:06 AM ROTARY DRILL OPERATOR Narrative [facility] ([place]) - 08/15/2024 9:50 AM ROTARY DRILL OPERATOR Is the Patient experiencing symptoms consistent with COVID?->Yes Gayla Malcolm MD LAB MICROBIOLOGY - GENERA L ORDERABLES Final Result [facility] ([place]) [address] [facility] [place] [address] * eGFR (08/15/2024 9:00 AM ROTARY DRILL OPERATOR) [facility] eGFR >90 >=60 mL/min/1. 73 m2 Comment: [...] was last reviewed 2021. Testing performed by: [facility], [address] [place] [address], [place]., [address] Blood 08/15/2024 9:00 AM ROTARY DRILL OPERATOR 08/15/2024 10:54 AM ROTARY DRILL OPERATOR Gayla Malcolm MD LAB BLOOD ORDERABLES Alanna grimaldo Result [facility] ([place]) [address] [facility] Department of Laboratories [place] [id number] * Differential, auto (08/15/2024 9:00 AM ROTARY DRILL OPERATOR) Neutrophil abs 4.5 1.5 - 6.5 [...] revised on 2017. Blood 08/15/2024 9:00 AM ROTARY DRILL OPERATOR 08/15/2024 9:06 AM ROTARY DRILL OPERATOR us Gayla Malcolm MD LAB BLOOD ORDERABLES Alanna l Result [facility] ([place]) [address] [facility] Department [place] [address] * (ABNORMAL) CBC with auto differential (08/15/2024 9:00 AM ROTARY DRILL OPERATOR) WBC 8.1 3.8 - 9.9 K/cumm Hgb 12.5(L) 13.0 - 17.5 g/dL [facility] ([place]) Hct 40.7 38.9 - 50.3 % [facility] ([place]) Plt 222 150 - 400 K/cumm [facility] ([place]) MPV 9.9 9.1 - 12.3 fL [facility] ([place]) RBC 4.46 4.30 - 5.80 M/cumm [facility] ([place]) MCV 91.3 81.3 - 96.4 fL [facility] ([place]) MCH 28.0 27.1 - 33.3 pg [facility] ([place]) MCHC 30.7(L) 32.3 - 35.7 g/dL [facility] ([place]) RDW CV 14.1 11.1 - 14.9 % [facility] ([place]) RDW SD 47.2 35.7 - 48.1 fL [facility] ([place]) NRBC abs 0.00 0.00 - 0.01 K/cumm [facility] ([place]) Blood 08/15/2024 9:00 AM ROTARY DRILL OPERATOR 08/15/2024 9:06 AM ROTARY DRILL OPERATOR Gayla Malcolm MD LAB BLOOD ORDERABLES Alanna l Result Performing Organization Address City/[facility]/ZIP Co de Phone Number [facility] ([place]) [address] [facility] [place] [address] * aPTT (08/15/2024 9:00 AM ROTARY DRILL OPERATOR) aPTT 36 28 - 38 sec [facility] ([place]) Comment: Interpretive Data Heparin therapeutic range: 66.0 - 100.0 seconds. Range based on correlation with therapeutic heparin activity range of 0.3 - 0.7 Units/mL. Current interpretive data was last revised on 2023. Blood 08/15/2024 9:00 AM ROTARY DRILL OPERATOR 08/15/2024 10:24 AM ROTARY DRILL OPERATOR Narrative [facility] ([place]) - 08/15/2024 10:31 AM ROTARY DRILL OPERATOR Baseline prior to enoxaparin initiation. Gayla Malcolm MD LAB BLOOD ORDERABLES Alanna l Result Performing Organization Address City/[facility]/ZIP Co de Phone Number [facility] ([place]) [address] [facility] [employer] [place] [address] * Protime-INR (08/15/2024 9:00 AM ROTARY DRILL OPERATOR) PT 12.8 9.7 - 13.0 sec [facility] ([place]) INR 1.18 0.90 - 1.20 [facility] ([place]) Comment: Interpretive data Oral anticoagulant therapeutic ranges: Venous thromboembolism prophylaxis or treatment: 2.0-3.0 CARDIOLOGY Standard range: 2.0-3.0 High-intensity range: 2.5-3.5 Refer to indication-specific guidelines for appropriate target ranges for prosthetic heart valve replacement. Current interpretive data was last revised on 2019. Blood 08/15/2024 9:00 AM ROTARY DRILL OPERATOR 08/15/2024 10:24 AM ROTARY DRILL OPERATOR Narrative [facility] ([place]) - 08/15/2024 10:31 AM ROTARY DRILL OPERATOR Baseline prior to enoxaparin initiation. Gayla Malcolm MD LAB BLOOD ORDERABLES Alanna grimaldo Result [facility] ([place]) [address] [facility] Department [place] [address] * (ABNORMAL) Comprehensive metabolic panel (08/15/2024 9:00 AM ROTARY DRILL OPERATOR) Pathologist [facility] Sodium 146(H) 135 - 145 mmol/L Comment:Testing performed by : [facility], [address] [place] [address]., [address] Potassium, pl 4.5 3.3 - 4.9 mmol/L [facility] ([place]) Comment:Testing performed by : [facility], [address] [place] [address]., [address] Chloride 108 97 - 110 mmol/L [facility] ([place]) Comment:Testing performed by : [facility], [address] [place] [address]., [address] CO2 27 22 - 32 mmol/L [facility] ([place]) Comment:Testing performed by : [address], [address] Anion gap 11 2 - 15 mmol/L [facility] ([place]) Comment:Testing performed by : [facility], [address], [place]., [address] BUN 14 6 - 25 mg/dL [facility] ([place]) Comment:Testing performed by : [address], [address] Creatinine 0.77(L) 0.80 - 1.30 mg/dL [facility] ([place]) Comment:Testing performed by : [address], [address] Glucose 98 70 - 199 mg/dL [facility] [...] was last revised 2022. Testing performed by: [address], [address] Calcium 8.8 8.5 - 10.3 mg/dL [facility] ([place]) Comment:Testing performed by : [address], [address] Bilirubin, total 0.3 0.1 - 1.2 mg/dL [facility] ([place]) Comment:Testing performed by : [address], [address] Protein, pl 7.2 6.5 - 8.5 g/dL [facility] ([place]) Comment:Testing performed by : [address], [address] Albumin 3.8 3.5 - 5.0 g/dL [facility] ([place]) Comment:Testing performed by : [address], [address] Alk phos 71 40 - 130 Units/L [facility] ([place]) Comment:Testing performed by : [address], [address] ALT 17 7 - 55 Units/L [facility] ([place]) Comment:Testing performed by : [facility], [address] [place] [address]., [address] AST 32 10 - 50 Units/L [facility] ([place]) Comment:Testing performed by : [facility], [address] [place] [address]., [address] Blood 08/15/2024 9:00 AM ROTARY DRILL OPERATOR 08/15/2024 9:06 AM ROTARY DRILL OPERATOR Gayla Malcolm MD LAB BLOOD ORDERABLES Alanna l Result [facility] ([place]) [address] [facility] [place] [address] * XR Chest PA Lateral 2 Views (08/15/2024 8:49 AM ROTARY DRILL OPERATOR) Anatomical Region Laterality Modality Body, Chest N/A Computed Radiogr aphy 08/15/2024 9:00 AM ROTARY DRILL OPERATOR Narrative 08/15/2024 9:01 AM ROTARY DRILL OPERATOR EXAM DESCRIPTION: XR CHEST PA LATERAL [...] Amari Roberts M.D. MM: MM Report ID: [id number] Reading Location: [place] [address] Procedure Note Amari Roberts MD - 08/15/2024 [...] Amari Roberts M.D. MM: MM Report ID: [id number] Reading Location: [place] [address] Gayla Malcolm MD IMG XR PROCEDURES Final R esult * COLONOSCOPY (07/16/2017 7:32 AM ROTARY DRILL OPERATOR) Anatomical Region Laterality Modality Other Narrative Procedure Note Michael Bran MD - 07/16/2017 7:32 AM CST [facility] Patient Name: Js Contreras Procedure Date: 07/16/2017 7:32 AM Date of : 1950 Admit Type: Outpatient Age: 67 Gender: Male Attending MD: Michael Gonzalez M.D. Room: [facility] ENDOSCOPY ROOM 2 Note Status: Finalized [...] scope was passed under direct vision.The Colonoscope [id number] was introducedthrough the anus and advanced to [...] 7:32 AM Procedure Code(s): --- Professional --- 12277, Colonoscopy, flexible; with removal of tumor(s), polyp(s), or other lesion(s) by snare technique Diagnosis Code(s): --- Professional --- Z86.010, Personal history of colonic polyps K64.8, Other hemorrhoids D12.5, Benign neoplasm of sigmoid colon K57.30, Diverticulosis of large intestine without perforation orabscess without bleeding CPT copyright 2014 [employer]. All rights reserved. The codes documented in this report are preliminary and upon reports developer reviewmay be revised to meet current compliance requirements. Recognized by the [employer] for promoting quality in endoscopy Michael Shaw MD ENDOSCOPY PROCEDUR ES Final Result from Last 3 Months or Most Recently Relevant to Health Maintenance Insurance [employer] MEDICARE PPO Member Subscriber Plan / Payer (Ef fective 2017-Present) Name:sJ Contreras Relation to Subscriber:Self Name:Js Contreras Payer ID:[id number] (NAIC) Type:MEDICARE RISK OTHER Address: [address] MEDICARE MANAGED MEDICARE GENERIC RISK OTHER [employer] CHOICE MEDICARE PPO MEDICARE [facility] AETNA MEDICARE GOLD [facility] MEDICARE SOLUTIONS Care Teams Row Boss Relationship Specialty Start Date End Date Unknown, Notinfile PCP - General 07/09/23
[2024-08-22 20:56] LABS: Basophils Percent Auto 0.3 % (0.2-1.2); Eosinophils Percent Auto 0.2 % (0-4.4); Hematocrit 52.1 % (42.0-52.0); Hemoglobin 16.4 g/dL (14.0-18.0); Immature Granulocyte Absolute 0.06 K/mm3 (0.00-0.031); Immature Granulocyte Percent A 0.5 % (0-0.5); Lymphocytes Absolute Auto 2.31 K/mm3 (0.9-3.2); Lymphocytes Percent Auto 17.9 % (18.3-44.2); Mean Corpuscular HGB Conc 31.5 g/dl (32-36); Mean Corpuscular Hemoglobin 27.7 pg (26-34); Mean Corpuscular Volume 88.2 fl (80-100); Mean Platelet Volume 10.2 fl (7.4-10.4); Monocytes Absolute Auto 1.2 K/mm3 (0.1-0.6); Monocytes Percent Auto 9.1 % (2.6-8.5); Neutrophils Absolute Auto 9.3 K/mm3 (1.3-6.7); Platelet Count Result 279 k/mm3 (150-375); Red Blood Count 5.91 M/mm3 (4.6-6.20); Red Cell Distribution Width 13.9 % (11.5-14.5); White Blood Count 12.9 K/mm3 (4.5-10.0)
[2024-08-22 21:00] LABS: Add Urine Microscopic? YES; Appearance Urine Clear (Clear); Bacteria Urine None Seen /hpf; Bilirubin Urine Negative (Negative); Blood Urine Non-Hemolyzed Trace (Negative); Color Urine Yellow (Yellow); Glucose Urine UA 3+ mg/dL (Negative); Ketones Urine 1+ mg/dL (Negative); Leukocyte Esterase Ur Negative LEU/UL (Negative); Nitrate Urine Negative (Negative); Non Pathogenic Casts 0-2; Protein Urine 1+ mg/dL (Negative); Specific Grav Ur 1.022 (1.001-1.035); Squamous Epithelial Cell Urine None Seen /hpf (Few); WBC Urine 0-5 /hpf (0-3); pH Urine 6.5 (5.0-9.0)
--- NOTE | 2024-08-22 21:04 | ECG_ITS ---
Test Date: 2024-08-22 21:32:49 Measurements Intervals [place] Rate: 111 P: 29 OR: 173 QRS: 134 QRSD: 145 T: -20 QT: 367 QTc: 499 Interpretive Statements SINUS TACHYCARDIA WITH OCCASIONAL VENTRICULAR PREMATURE COMPLEXES WITH FREQUENT SUPRAVENTRICULAR PREMATURE COMPLEXES RIGHT BUNDLE BRANCH BLOCK [120+ ms QRS DURATION, UPRIGHT V1, 40+ ms S IN I/aVL/V4/V5/V6] LEFT POSTERIOR FASCICULAR BLOCK [QRS AXIS > 109, INFERIOR Q] No previous ECG available for comparison Electronically Signed On 08-23-2024 14:44:05 CDT by Linda Dang M.D.
[2024-08-22 21:07] LABS: Lactic Acid Reflex 1.5 mmol/L (0.7-2.0)
[2024-08-22 21:08] LABS: Alanine Aminotransferase 19 U/L (6-50); Albumin Level 4.1 g/dL (3.5-5.1); Alkaline Phosphatase 64 U/L (38-126); Anion Gap 9 mmol/L (4-12); Aspartate Amino Transferase 34 U/L (17-59); Bilirubin,Total 1.4 mg/dL (0.2-1.3); Blood Urea Nitrogen 22 mg/dL (9-20); Calcium 8.9 mg/dL (8.4-10.2); Carbon Dioxide 35 mmol/L (22-30); Chloride 95 mmol/L (98-107); Estimated CRCL calculation 64 ml/min; Estimated Glomerular Filt Rate > 60; Glucose 111 mg/dL (65-110); Lipase 351 U/L (23-300); Potassium 3.6 mmol/L (3.4-5.0); Sodium 139 mmol/L (137-145)
[2024-08-22] MEDS: SODIUM CHLORIDE 0.9% IV 1,000 ML 999 ML IV CONT (21:19)
[2024-08-22 21:26] LABS: Partial Thromboplastin Time 29.7 Seconds (22.3-36.8)
--- NOTE | 2024-08-22 21:28 | ED_ITS ---
HPI - General Adult General Chief complaint: Abdominal Pain <Jolie Palma PA-C - Last Filed: 08/23/24 02:44> Stated complaint: Abd pain, vomiting, weakness <FRANKO Aguilar Last Filed: 08/23/24 02:44> Time Seen by Provider: 08/22/24 20:20 <FRANKO Aguilar Last Filed: 08/23/24 02:44> Source: patient <FRANKO Aguilar Last Filed: 08/23/24 02:44> Mode of arrival: ambulatory <FRANKO Aguilar Last Filed: 08/23/24 02:44> Limitations: no limitations <FRANKO Aguilar Last Filed: 08/23/24 02:44> History of Present Illness HPI narrative: Patient is a 74-year-old male who presents the ED with multiple complaints. Patient reports over the past 2 months, he has been having increased shortness breath with laying flat and with exertion. He has had swelling in his legs. He has previously been diagnosed with CHF through the [facility]. Unsure what medications he is on for this. States he went to [facility] today where he was told he was in AFIB and had fluid on his lungs. He states he was given a water pill at [place]. Patient reportedly left [facility] with his IV in. He then prompted here for further evaluation. Patient denies previous hx of AFIB. He is not on any anticoagulation. He also reports having lower abdominal pain. States this pain has been intermittent for the last few months, worse over the last 1 month. He has had nausea and vomiting over the past 2 days. States the stomach consisted of emesis that looked like coffee grounds. He reports constipation for the past 4 days. Denies recent rectal bleeding or melena. Denies fevers. Denies cough. <Jolie Palma PA-C - Last Filed: 08/23/24 02:44> Related Data Home medications: Home Medications ?Medication ?Instructions ?Recorded ?Confirmed ?Last Taken ?Type albuterol sulfate 90 mcg/actuation 2 puff inhalation Q6H PRN 08/23/24 08/23/24 Unknown History aerosol inhaler shortness of breath or wheezing aspirin 81 mg chewable tablet 81 mg PO DAILY 08/23/24 08/23/24 Unknown History carvedilol 6.25 mg tablet 6.25 mg PO BID 08/23/24 08/23/24 Unknown History cholecalciferol (vitamin D3) 50 2,000 unit PO DAILY 08/23/24 08/23/24 Unknown History mcg (2,000 unit) capsule rosuvastatin 20 mg tablet (Crestor) 10 mg PO HS 08/23/24 08/23/24 Unknown History <Jolie Palma PA-C - Last Filed: 08/23/24 02:44> Allergies/adverse reactions: Allergies Allergy/AdvReac Type Severity Reaction Status Date / Time No Known Drug Allergies Allergy Other Verified 08/22/24 19:52 <Jolie Palma PA-C - Last Filed: 08/23/24 02:44> Review of Systems 2 Review of Systems: All systems reviewed & are unremarkable except as noted in HPI. <Jolie Palma PA-C - Last Filed: 08/23/24 02:44> All systems reviewed & are unremarkable except as noted in HPI and below < Jolie Palma PA-C - Last Filed: 08/23/24 02:44> [facility] Past Medical History Medical History: Medical History Hypertension Hyperlipidemia Vitamin D deficiency Substance abuse Atrial fibrillation Congestive heart failure <Jolie Palma PA-C - Last Filed: 08/23/24 02:44> Surgical History Surgical History: Surgical History H/O hemorrhoidectomy History of appendectomy History of carpal tunnel release <Jolie Palma PA-C - Last Filed: 08/23/24 02:44> Social History Social History: Social History Smoking status: Never smoker Alcohol intake: never Substance use: current Substance use type: marijuana and crack/cocaine Other substance usage details: once in while Do You Feel Safe in your Home?: Yes Lack of Transportation: No Lack of Food: Never True Current Housing: I Have Housing Concerned About Future Housing: No Difficulty Paying Gas/Electric Bills: No Difficulty Paying for Meds: No Currently Unemployed: No Education: High School Diploma/GED Difficulty w/ Childcare or Family Care: No Spiritual care concerns: No <Jolie Palma PA-C - Last Filed: 08/23/24 02:44> Exam 2 Narrative: GENERAL: Elderly, well-nourished, non-toxic, in no acute distress. HEAD: Normocephalic, atraumatic. RESPIRATORY: Airway patent, respirations nonlabored. Clear to auscultation bilaterally, no rales, rhonchi, wheezing. CARDIOVASCULAR: Tachycardic with irregular rhythm without murmurs, rubs, or gallops. ABDOMINAL: Soft, diffuse tenderness throughout lower abdomen and periumbilical region. He does have umbilical hernia which is partially reducible, nontender to palpation directly over hernia. No overlying skin changes. Nondistended. Normoactive BS. MUSCULOSKELETAL: Moves all extremities. No gross deformities. No peripheral edema. No calf tenderness. SKIN: Warm, dry, normal color. NEURO: A&O X3. Speech clear. Cranial nerves II-XII grossly intact. Steady gait. No ataxic movements. PSYCHIATRIC: Appropriate mood and affect. Normal interaction. <Jolie Palma PA-C - Last Filed: 08/23/24 02:44> Course POWER ENGINEER/PA Physician Supervision For this patient encounter, I reviewed the POWER ENGINEER or PA documentation, treatment plan, and medical decision making and had [id number] time with this patient. I performed all aspects of the MDM as documented. <Ashish Rodriguez MD - Last Filed: 08/23/24 03:22> Vital Signs Vital signs: Vital Signs Temperature 97 F L 08/22/24 19:56 Pulse Rate 112 H 08/22/24 19:56 Respiratory Rate 15 08/22/24 19:56 Blood Pressure 152/120 H 08/22/24 19:56 Pulse Oximetry 94 08/22/24 19:56 Oxygen Delivery Room Air 08/22/24 19:56 Temperature 97.8 F 08/23/24 01:26 Pulse Rate 97 08/23/24 03:12 Respiratory Rate 18 08/23/24 01:26 Blood Pressure 117/63 08/23/24 01:26 Pulse Oximetry 94 08/23/24 03:12 Oxygen Delivery Nasal Cannula 08/23/24 03:12 Oxygen Flow Rate 2 08/23/24 03:12 <Jolie Palma PA-C - Last Filed: 08/23/24 02:44> Vital Signs Temperature 97 F L 08/22/24 19:56 Pulse Rate 112 H 08/22/24 19:56 Respiratory Rate 15 08/22/24 19:56 Blood Pressure 152/120 H 08/22/24 19:56 Pulse Oximetry 94 08/22/24 19:56 Oxygen Delivery Room Air 08/22/24 19:56 Temperature 97.8 F 08/23/24 01:26 Pulse Rate 97 08/23/24 03:12 Respiratory Rate 18 08/23/24 01:26 Blood Pressure 117/63 08/23/24 01:26 Pulse Oximetry 94 08/23/24 03:12 Oxygen Delivery Nasal Cannula 08/23/24 03:12 Oxygen Flow Rate 2 08/23/24 03:12 <Ashish Rodriguez MD - Last Filed: 08/23/24 03:22> Medical Decision Making MDM Narrative Medical decision making narrative: Patient presented to ED with multiple complaints, reportedly diagnosed with acute congestive heart failure, AFib today at outside hospital. Reports SOB/NASH. Also reporting abdominal pain, nausea, vomiting, coffee-ground emesis, constipation. Vital signs are stable upon arrival. Oxygen stable on room air, though borderline 90-94. Patient is tachycardic. HR sounds irregular with auscultation. Heart rate on cnc manufacturing engineer appears AFib, rates ranging from 90s up to 140s. EKG was obtained and showing sinus tachycardia with frequent ectopy. I do appreciate P waves on EKG, but the rhythm is very much irregular. No significant ST changes. Patient is denying chest pain at this time. Baseline troponin did result elevated at 0.057. Will continue to trend. BNP is elevated to 7570. Patient does not have significant lower extremity edema on exam, but does have evidence of pulmonary edema and pleural effusions on chest imaging. Given dose of IV Lasix in the ED. D-dimer resulted elevated at 4.21. CBC with white blood cell count of 12.9. CMP is unremarkable. Total bilirubin is 1.4. Otherwise stable LFTs. Lipase is minimally elevated to 351. Lactic acid within normal range at 1.5. CTA of chest, with abdomen/pelvis obtained and no evidence of obvious PE. Does show evidence of consolidation consistent w/ aspiration versus pneumonia. Also showing moderate pleural effusions. Also showing SBO with transition point in the umbilical hernia. Discussed lab and imaging findings extensively with patient and daughter at bedside. Heart rate continued to remain elevated above 110 and consistently irregular. Given Cardizem bolus and did have near immediate improvement of heart rate into the 90s. Still irregular. BP stable. Cardizem drip started. Blood cultures were obtained. Will start antibiotics for pneumonia. Rocephin and azithromycin started in the ED. NG tube placed. I am able to partially reduce umbilical hernia on exam. It is soft. However any time patient sits up or strains himself, the hernia reproduces. Discussed case with Dr. Lewis, general surgery, will consult. Discussed case with Viv ESPINOZA Hospitalist, accepted patient for admission. Patient and family in agreement with plan and need for admission. <Jolie Palma PA-C - Last Filed: 08/23/24 02:44> Patient presented to ED with multiple complaints, reportedly diagnosed with acute congestive heart failure, AFib today at outside hospital. Reports SOB/NASH. Also reporting abdominal pain, nausea, vomiting, coffee-ground emesis, constipation. Vital signs are stable upon arrival. Oxygen stable on room air, though borderline 90-94. Patient is tachycardic. HR sounds irregular with auscultation. Heart rate on cnc manufacturing engineer appears AFib, rates ranging from 90s up to 140s. EKG was obtained and showing sinus tachycardia with frequent ectopy. I do appreciate P waves on EKG, but the rhythm is very much irregular. No significant ST changes. Patient is denying chest pain at this time. Baseline troponin did result elevated at 0.057. Will continue to trend. BNP is elevated to 7570. Patient does not have significant lower extremity edema on exam, but does have evidence of pulmonary edema and pleural effusions on chest imaging. Given dose of IV Lasix in the ED. D-dimer resulted elevated at 4.21. CBC with white blood cell count of 12.9. CMP is unremarkable. Total bilirubin is 1.4. Otherwise stable LFTs. Lipase is minimally elevated to 351. Lactic acid within normal range at 1.5. CTA of chest, with abdomen/pelvis obtained and no evidence of obvious PE. Does show evidence of consolidation consistent w/ aspiration versus pneumonia. Also showing moderate pleural effusions. Also showing SBO with transition point in the umbilical hernia. Discussed lab and imaging findings extensively with patient and daughter at bedside. Heart rate continued to remain elevated above 110 and consistently irregular. Given Cardizem bolus and did have near immediate improvement of heart rate into the 90s. Still irregular. BP stable. Cardizem drip started. Blood cultures were obtained. Will start antibiotics for pneumonia. Rocephin and azithromycin started in the ED. NG tube placed. I am able to partially reduce umbilical hernia on exam. It is soft. However any time patient sits up or strains himself, the hernia reproduces. Discussed case with Dr. Lewis, general surgery, will consult. Discussed case with Viv ESPINOZA Hospitalist, accepted patient for admission. Patient and family in agreement with plan and need for admission. Critical care time of 37 minutes, exclusive of separately performed procedures, necessary for treating or preventing eminent or life-threatening deterioration of patient's condition of atrial fib. with RVR requiring IV cardiam drip, focused on patient care provided personally by me and time spent during initial evaluation, physical examination, ordering and performing treatments and interventions, ordering and reviewing laboratory studies, ordering and reviewing radiographic studies, re-evaluation of the patient's condition, evaluation of the patient's response to treatment, and discussion of patient case with multiple consultants. <Ashish Rodriguez MD - Last Filed: 08/23/24 03:22> Medical Records Medical records reviewed: Yes I reviewed the external patient's medical records. <Jolie Palma PA-C - Last Filed: 08/23/24 02:44> Vital Signs Vital Signs: Vital Signs Temperature 97 F L 08/22/24 19:56 Pulse Rate 112 H 08/22/24 19:56 Respiratory Rate 15 08/22/24 19:56 Blood Pressure 152/120 H 08/22/24 19:56 Pulse Oximetry 94 08/22/24 19:56 Oxygen Delivery Room Air 08/22/24 19:56 Temperature 97.8 F 08/23/24 01:26 Pulse Rate 97 08/23/24 03:12 Respiratory Rate 18 08/23/24 01:26 Blood Pressure 117/63 08/23/24 01:26 Pulse Oximetry 94 08/23/24 03:12 Oxygen Delivery Nasal Cannula 08/23/24 03:12 Oxygen Flow Rate 2 08/23/24 03:12 <Jolie Palma PA-C - Last Filed: 08/23/24 02:44> Vital Signs Temperature 97 F L 08/22/24 19:56 Pulse Rate 112 H 08/22/24 19:56 Respiratory Rate 15 08/22/24 19:56 Blood Pressure 152/120 H 08/22/24 19:56 Pulse Oximetry 94 08/22/24 19:56 Oxygen Delivery Room Air 08/22/24 19:56 Temperature 97.8 F 08/23/24 01:26 Pulse Rate 97 08/23/24 03:12 Respiratory Rate 18 08/23/24 01:26 Blood Pressure 117/63 08/23/24 01:26 Pulse Oximetry 94 08/23/24 03:12 Oxygen Delivery Nasal Cannula 08/23/24 03:12 Oxygen Flow Rate 2 08/23/24 03:12 <Ashish Rodriguez MD - Last Filed: 08/23/24 03:22> Lab Data Lab results reviewed: Yes I reviewed the patient's lab results. <Jolie Palma PA-C - Last Filed: 08/23/24 02:44> Result diagrams: 08/22/24 20:40 08/22/24 20:40 <FRANKO Aguilar Last Filed: 08/23/24 02:44> Labs: Lab Results 08/22/24 08/22/24 Range/Units 20:40 23:53 WBC 12.9 H (4.5-10.0) K/mm3 RBC 5.91 (4.6-6.20) M/mm3 Hgb 16.4 (14.0-18.0) g/dL Hct 52.1 H (42.0-52.0) % MCV 88.2 (80-100) fl MCH 27.7 (26-34) pg MCHC 31.5 L (32-36) g/dl RDW 13.9 (11.5-14.5) % Plt Count 279 (150-375) k/mm3 MPV 10.2 (7.4-10.4) fl Immature Gran % (Auto) 0.5 (0-0.5) % Neut % (Auto) 72.0 (45.5-73.1) % Lymph % (Auto) 17.9 L (18.3-44.2) % [place] % (Auto) 9.1 H (2.6-8.5) % Eos % (Auto) 0.2 (0-4.4) % Baso % (Auto) 0.3 (0.2-1.2) % Lymph # (Auto) 2.31 (0.9-3.2) K/mm3 [place] # (Auto) 1.2 H (0.1-0.6) K/mm3 Eos # (Auto) 0.0 (0-0.3) K/mm3 Baso # (Auto) 0.0 (0.0-0.1) K/mm3 Abs Immat Gran (auto) 0.06 H (0.00-0.031) K/mm3 Absolute Neuts (auto) 9.3 H (1.3-6.7) K/mm3 Absolute Nucleated RBC 0.000 (0.0-0.012) K/mm3 Nucleated RBC % 0.0 (0.0-0.2) % PT 15.6 H (11.1-14.7) Seconds INR 1.2 APTT 29.7 (22.3-36.8) Seconds D-Dimer 4.21 H (<0.48) ug/mL Sodium 139 (137-145) mmol/L Potassium 3.6 (3.4-5.0) mmol/L Chloride 95 L (98-107) mmol/L Carbon Dioxide 35 H (22-30) mmol/L Anion Gap 9 (4-12) mmol/L BUN 22 H (9-20) mg/dL Creatinine 0.78 (0.7-1.3) mg/dL Estim Creat Clear Calc 64 ml/min Estimated GFR > 60 (59 - ) Glucose 111 H (65-110) mg/dL Lactic Acid 1.5 (0.7-2.0) mmol/L Calcium 8.9 (8.4-10.2) mg/dL Total Bilirubin 1.4 H (0.2-1.3) mg/dL AST 34 (17-59) U/L ALT 19 (6-50) U/L Alkaline Phosphatase 64 (38-126) U/L Troponin I 0.057 H* 0.058 H* (0.000-0.034) ng/mL NT-Pro-B Natriuret Pep 7570 H (19.9-100) pg/mL Total Protein 8.0 (6.3-8.2) g/dL Albumin 4.1 (3.5-5.1) g/dL Lipase 351 H (23-300) U/L Urine Color Yellow (Yellow) Urine Appearance Clear (Clear) Urine pH 6.5 (5.0-9.0) Ur Specific [place] 1.022 (1.001-1.035) Urine Protein 1+ H (Negative) mg/dL Urine Glucose (UA) 3+ H (Negative) mg/dL Urine Ketones 1+ H (Negative) mg/dL Ur Blood (Man) Non-hemolyzed trace (Negative) Urine Nitrate Negative (Negative) Urine Bilirubin Negative (Negative) Urine Urobilinogen 1.0 (<2.0) mg/dL Leukocyte Esterase Rfl Negative (Negative) VIKA/UL Urine RBC 6-10 H (0-2) /hpf Urine WBC 0-5 (0-3) /hpf Ur Squamous Epith Cells None seen (Few) /hpf Urine Bacteria None seen /hpf Urine Casts 0-2 <Jolie Palma PA-C - Last Filed: 08/23/24 02:44> Lab Results 08/22/24 08/22/24 Range/Units 20:40 23:53 WBC 12.9 H (4.5-10.0) K/mm3 RBC 5.91 (4.6-6.20) M/mm3 Hgb 16.4 (14.0-18.0) g/dL Hct 52.1 H (42.0-52.0) % MCV 88.2 (80-100) fl MCH 27.7 (26-34) pg MCHC 31.5 L (32-36) g/dl RDW 13.9 (11.5-14.5) % Plt Count 279 (150-375) k/mm3 MPV 10.2 (7.4-10.4) fl Immature Gran % (Auto) 0.5 (0-0.5) % Neut % (Auto) 72.0 (45.5-73.1) % Lymph % (Auto) 17.9 L (18.3-44.2) % [place] % (Auto) 9.1 H (2.6-8.5) % Eos % (Auto) 0.2 (0-4.4) % Baso % (Auto) 0.3 (0.2-1.2) % Lymph # (Auto) 2.31 (0.9-3.2) K/mm3 [place] # (Auto) 1.2 H (0.1-0.6) K/mm3 Eos # (Auto) 0.0 (0-0.3) K/mm3 Baso # (Auto) 0.0 (0.0-0.1) K/mm3 Abs Immat Gran (auto) 0.06 H (0.00-0.031) K/mm3 Absolute Neuts (auto) 9.3 H (1.3-6.7) K/mm3 Absolute Nucleated RBC 0.000 (0.0-0.012) K/mm3 Nucleated RBC % 0.0 (0.0-0.2) % PT 15.6 H (11.1-14.7) Seconds INR 1.2 APTT 29.7 (22.3-36.8) Seconds D-Dimer 4.21 H (<0.48) ug/mL Sodium 139 (137-145) mmol/L Potassium 3.6 (3.4-5.0) mmol/L Chloride 95 L (98-107) mmol/L Carbon Dioxide 35 H (22-30) mmol/L Anion Gap 9 (4-12) mmol/L BUN 22 H (9-20) mg/dL Creatinine 0.78 (0.7-1.3) mg/dL Estim Creat Clear Calc 64 ml/min Estimated GFR > 60 (59 - ) Glucose 111 H (65-110) mg/dL Lactic Acid 1.5 (0.7-2.0) mmol/L Calcium 8.9 (8.4-10.2) mg/dL Total Bilirubin 1.4 H (0.2-1.3) mg/dL AST 34 (17-59) U/L ALT 19 (6-50) U/L Alkaline Phosphatase 64 (38-126) U/L Troponin I 0.057 H* 0.058 H* (0.000-0.034) ng/mL NT-Pro-B Natriuret Pep 7570 H (19.9-100) pg/mL Total Protein 8.0 (6.3-8.2) g/dL Albumin 4.1 (3.5-5.1) g/dL Lipase 351 H (23-300) U/L Urine Color Yellow (Yellow) Urine Appearance Clear (Clear) Urine pH 6.5 (5.0-9.0) Ur Specific [place] 1.022 (1.001-1.035) Urine Protein 1+ H (Negative) mg/dL Urine Glucose (UA) 3+ H (Negative) mg/dL Urine Ketones 1+ H (Negative) mg/dL Ur Blood (Man) Non-hemolyzed trace (Negative) Urine Nitrate Negative (Negative) Urine Bilirubin Negative (Negative) Urine Urobilinogen 1.0 (<2.0) mg/dL Leukocyte Esterase Rfl Negative (Negative) VIKA/UL Urine RBC 6-10 H (0-2) /hpf Urine WBC 0-5 (0-3) /hpf Ur Squamous Epith Cells None seen (Few) /hpf Urine Bacteria None seen /hpf Urine Casts 0-2 <Ashish Rodriguez MD - Last Filed: 08/23/24 03:22> Imaging Data Attestation: I personally reviewed and interpreted this imaging study as follows: < Jolie Palma PA-C - Last Filed: 08/23/24 02:44> Radiologist's impression: ITS Impressions Chest X-Ray 08/22/24 22:45 IMPRESSION: Pulmonary opacities may represent edema, probably with a component of atelectasis. Infection not excluded. Trace left effusion. Chest/Abdomen/Pelvis CTA 08/22/24 22:59 IMPRESSION: Subsegmental lingular consolidation suspicious for pneumonia or aspiration. Segmental and subsegmental left lower lobe pulmonary arteries not adequately assessed due to motion. No pulmonary embolus detected in the adequately visualized pulmonary arteries. Moderate bilateral pleural effusions. Asymmetric right gynecomastia, consider nonemergent mammography and breast ultrasound. Multiple splenic hypodensities, presumably related to cysts or hemangiomas. Infection or metastatic disease considered less likely. Bilateral indeterminate renal lesions, recommend nonemergent MRI or CT with and without contrast for further characterization. Small bowel obstruction, transition point at a moderate sized umbilical hernia that contains a loop of small bowel. Mild ascites. <Jolie Palma PA-C - Last Filed: 08/23/24 02:44> ECG Data EKG #1: Attestation: I personally reviewed and interpreted this ECG as follows: <Jolie Palma PA-C - Last Filed: 08/23/24 02:44> ECG completion date: 08/22/24 <FRANKO Aguilar Last Filed: 08/23/24 02:44> ECG completion time: 21:32 <FRANKO Aguilar Last Filed: 08/23/24 02:44> EKG Interpretation: tachycardia (111), sinus rhythm (P waves present but very irregular), PVCs, non-specific ST changes and RBBB <Jolie Palma PA-C - Last Filed: 08/23/24 02:44> Critical Care Time Critical Care Time Total Critical Care Time: 37 <Ashish Rodriguez MD - Last Filed: 08/23/24 03:22> Discharge Plan Discharge Clinical Impression: Small bowel obstruction, Elevated troponin, Incarcerated umbilical hernia, Atrial fibrillation with RVR Pneumonia Qualifiers: Pneumonia type: due to unspecified organism Laterality: bilateral Lung location: lower lobe of lung Qualified Code(s): J18.9 - Pneumonia, unspecified organism Acute exacerbation of CHF (congestive heart failure) Qualifiers: Heart failure type: unspecified Qualified Code(s): I50.9 - Heart failure, unspecified <FRANKO Aguilar Last Filed: 08/23/24 02:44> Patient Disposition: Still a Patient <FRANKO Aguilar Last Filed: 08/23/24 02:44> Condition: Serious <Jolie Palma PA-C - Last Filed: 08/23/24 02:44>
[2024-08-22 21:41] LABS: NT Pro B Type Natriuretic Pept 7570 pg/mL (19.9-100); Troponin I 0.057 ng/mL (0.000-0.034)
[2024-08-22 21:44] LABS: D Dimer 4.21 ug/mL (<0.48); INR 1.2; Prothrombin Time 15.6 Seconds (11.1-14.7)
[2024-08-22] MEDS: FUROSEMIDE INJ 40 MG/4 ML VIAL IV PUSH (23:54)
[2024-08-22] MEDS: dilTIAZem HCl INJ 25 MG/5 ML VIAL 20 MG IV PUSH (23:55)
[2024-08-22] MEDS: dilTIAZem 100 MG/100 ML 100 MG/100 ML BAG IV CONT (23:59)
[2024-08-23] VITALS (23 sets, daily range): BP systolic 117–151; BP diastolic 62–91; PULSE 77–109; RESP 17–22; TEMP 36.3–36.9; O2SAT 90–96; BMI 28.5
--- NOTE | 2024-08-23 | ECHO_ITS ---
Patient Info Name: Js Contreras Age: 74 years : 1950 Gender: Male Ht: 66 in Wt: 177 lbs BSA: 1.95 m2 HR: 79 bpm BP: 125 / 88 mmHg Heart Rhythm: Sinus Rhythm Technical Quality: Fair Exam Date: 08/23/2024 8:50 AM Exam Location: Echo Lab Patient Status: Inpatient Admit Date: 08/23/2024 Staff Ordering Physician: Viv Mendoza APRN Machine Joint Cutter: Cate Meléndez RDCS Attending Provider: Crystal Verdin MD Referring Physician: Kelly ESPINAL; Exam Type: CA echo doppler color flow Study Info Indications - SOB Complete two-dimensional, color flow and Doppler transthoracic echocardiogram is performed. Summary 1. Left ventricular chamber dimension is normal. 2. Left ventricular systolic function is mildly reduced, estimated at 40-45%. 3. There is moderately increased left ventricular wall thickness. 4. The left ventricular diastolic function is grade I diastolic dysfunction. 5. Right ventricular chamber dimension is moderately enlarged. 6. Right ventricular systolic function is normal. 7. Left atrial chamber dimension is severely enlarged. 8. Right atrial chamber dimension is moderately enlarged. 9. There is moderate mitral valve regurgitation. The degree of regurgitation may be underestimated due to eccentricity of the jet. 10. There is mild tricuspid valve regurgitation. 11. Pulmonary hypertension, estimated pulmonary arterial systolic pressure is 43 mmHg. 12. Dilated inferior vena cava with >50% collapse upon inspiration consistent with elevated right atrial pressure, 8 mmHg. 13. Left pleural effusion present. 14. There is trivial posterior pericardial effusion. Left Ventricle Left ventricular chamber dimension is normal. Left ventricular systolic function is mildly reduced, estimated at 40-45%. There is moderately increased left ventricular wall thickness. The left ventricular diastolic function is grade I diastolic dysfunction. Right Ventricle Right ventricular chamber dimension is moderately enlarged. Right ventricular systolic function is normal. Left Atria Left atrial chamber dimension is severely enlarged. Right Atria Right atrial chamber dimension is moderately enlarged. Atrial Septum Intact interatrial septum visualized by color flow imaging. Aortic Valve The aortic valve is trileaflet. There is no aortic valve stenosis. There is no aortic valve regurgitation. There is mild aortic valve calcification. Pulmonic Valve The pulmonic valve is not well visualized. There is trace pulmonic regurgitation. Mitral Valve The mitral valve has thickened leaflets. There is moderate mitral valve regurgitation. The degree of regurgitation may be underestimated due to eccentricity of the jet. Tricuspid Valve There is mild tricuspid valve regurgitation. Pulmonary hypertension, estimated pulmonary arterial systolic pressure is 43 mmHg. Pericardium/Pleural Left pleural effusion present. There is trivial posterior pericardial effusion. Inferior Vena Cava Dilated inferior vena cava with >50% collapse upon inspiration consistent with elevated right atrial pressure, 8 mmHg. Aorta The aortic root size at the sinus of Valsalva is normal. Left Ventricular Outflow Tract Name Value Normal LVOT 2D LVOT Diameter 2.1 cm LVOT Doppler LVOT Peak Gradient 4 mmHg LVOT Mean Gradient 2 mmHg LVOT VTI 15 cm LVOT VTI/AV VTI Ratio 0.7 LVOT Stroke Volume 53 ml LVOT CO 4.9 l/min LVOT CI 2.5 l/min/m2 Pulmonic Valve Name Value Normal RVOT Doppler RVOT Peak Gradient 2 mmHg PV Doppler PV Peak Gradient 3 mmHg Mitral Valve Name Value Normal MV Doppler MV Decel Ward 372 cm/s2 MV PHT 51 ms MV Area (PHT) 4.3 cm2 4.0-5.0 MV Diastolic Function MV E Peak Velocity 65 cm/s MV A Peak Velocity 64 cm/s MV E/A 1.0 MV Decel Time 175 ms MV Annular TDI MV E/e' (Septal) 28.1 <=8.0 MV E/e' (Lateral) 8.6 <=8.0 MV E/e' (Average) 18.3 Tricuspid Valve Name Value Normal TV Regurgitation Doppler TR Peak Velocity 298 cm/s TR Peak Gradient 35 mmHg Estimated PAP/RSVP RA Pressure 8 mmHg <=5 PA Systolic Pressure 43 mmHg <36 RV Systolic Pressure 43 mmHg <36 Aortic Valve Name Value Normal AV Doppler AV Peak Velocity 130 cm/s AV Peak Gradient 7 mmHg AV Mean Gradient 4 mmHg AV VTI 23 cm AV Area (Cont Eq VTI) 2.3 cm2 >=3.0 AV Area (Cont Eq Saurabh) 2.6 cm2 AV Regurgitation 2D LVOT Area 3.5 cm2 Ventricles Name Value Normal LV Dimensions 2D/MM IVS Diastolic Thickness (2D) 1.4 cm 0.6-1.0 LVID Diastole (2D) 5.8 cm 4.2-5.8 LVIW Diastolic Thickness (2D) 1.2 cm 0.6-1.0 LVID Systole (2D) 4.5 cm 2.5-4.0 LVOT Diameter 2.1 cm LV Mass (2D Cubed) 343.36 g 88.00-224.00 LV Mass Index (2D Cubed) 176 g/m2 49-115 Relative Wall Thickness (2D) 0.43 LV Fractional Shortening/Ejection Fraction 2D/MM LV Fractional Shortening (2D) 22 % 25-43 LV EF (2D Teicholz) 44 % 52-72 LV Diastolic Volume (4C MOD) 209 ml LV EF (4C MOD) 47 % LV Diastolic Volume (2C MOD) 228 ml LV EF (2C MOD) 45 % LV Diastolic Volume (BP MOD) 221 ml 62-150 LV Diastolic Volume Index (BP MOD) 113 ml/m2 34-74 LV Systolic Volume (BP MOD) 121 ml 21-61 LV Systolic Volume Index (BP MOD) 62 ml/m2 11-31 LV EF (BP MOD) 45 % 52-72 LV Diastolic Length (4C) 9.4 cm LV Systolic Length (4C) 7.9 cm LV Stroke Volume (4C MOD) 98 ml Atria Name Value Normal LA Dimensions LA Volume (4C A-L) 121 ml LA Volume (BP A-L) 128 ml RA Dimensions RA Area (4C) 28.5 cm2 <=18.0 Report Signatures
[2024-08-23] MEDS: AZITHROMYCIN 500 MG/NS 250 ML 500 MG/250 ML BAG 250 MG IVPB (00:12)
--- NOTE | 2024-08-23 00:28 | P.HP_ITS ---
H&P: HPI History of Present Illness Date/Time: 08/23/24 00:28 Chief Complaint: Abdominal pain, vomiting, weakness Narrative: This is a 74-year-old male with a significant past medical history of A fib, hyperlipidemia, hypertension, Vitamin D3 deficiency, CHF, cocaine and marijuana abuse who presented to the hospital with complaint of abdominal pain, vomiting, weakness. Patient states that he went to [facility] about 2 weeks ago for shortness of breath, was given Lasix and sent home. He states he was not feeling well since that time and represented over at [facility] and they noted him to be in A fib with RVR. He left AMA from the ER there due to the 5 hour wait period and came here instead for further evaluation. He denies any fever, chills, diarrhea, abdominal pain, chest pain, shortness a breath. He does endorse nausea, vomiting today. Workup in the hospital included a chest x-ray which showed pulmonary opacities representing edema with component of atelectasis, trace left effusion. Chest/abdomen/pelvis CTA was negative for PE showed a subsegmental lingular consolidation suspicious for pneumonia or aspiration, moderate bilateral pleural effusions, asymmetric right gynecomastia, multiple splenic hypodensities presumably related to cyst or hemangiomas, bilateral indeterminate renal lesions, small bowel obstruction with transition point at a moderate size umbilical hernia that contains a loop of small bowel, mild ascites. Initial labs showed a white blood cell count of 12.9, INR 1.2, D- dimer 4.21, chloride 95, carbon dioxide 35, blood sugar 111, lactic acid was normal at 1.5, total bilirubin 1.4, troponin 0.058, proBNP 7570, lipase 351. UA was obtained which showed 1+ urine protein, 3+ urine glucose, 1+ urine ketones, 6-10 urine RBC. Blood cultures were obtained and pending. EKG showing sinus tach with occasional ventricular premature complexes with frequent supraventricular premature complexes, right bundle branch block, left posterior fascicular block with a rate of 111, QTC 499. ED interpreted the EKG to be AFib with RVR and patient was started on diltiazem bolus and drip, patient was given 1 L of normal saline, 40 mg IV push Lasix, Rocephin, azithromycin while in the ED. patient had NG tube placed while in the ED. Review of Systems Review of Systems: All systems reviewed & are unremarkable except as noted in HPI and below PMFSH Past Medical History Medical History Hypertension Hyperlipidemia Vitamin D deficiency Substance abuse Atrial fibrillation Congestive heart failure Surgical History Surgical History H/O hemorrhoidectomy History of appendectomy History of carpal tunnel release Social History Social History Smoking status: Never smoker Alcohol intake: never Substance use: current Substance use type: marijuana and crack/cocaine Other substance usage details: once in while Do You Feel Safe in your Home?: Yes Lack of Transportation: No Lack of Food: Never True Current Housing: I Have Housing Concerned About Future Housing: No Difficulty Paying Gas/Electric Bills: No Difficulty Paying for Meds: No Currently Unemployed: No Education: High School Diploma/GED Difficulty w/ Childcare or Family Care: No Spiritual care concerns: No Meds Home Medications and Allergies Home Medications ?Medication ?Instructions ?Recorded ?Confirmed ?Type albuterol sulfate 90 mcg/actuation 2 puff inhalation Q6H PRN 08/23/24 08/23/24 History aerosol inhaler shortness of breath or wheezing aspirin 81 mg chewable tablet 81 mg PO DAILY 08/23/24 08/23/24 History carvedilol 6.25 mg tablet 6.25 mg PO BID 08/23/24 08/23/24 History cholecalciferol (vitamin D3) 50 2,000 unit PO DAILY 08/23/24 08/23/24 History mcg (2,000 unit) capsule rosuvastatin 20 mg tablet (Crestor) 10 mg PO HS 08/23/24 08/23/24 History Allergies Allergy/AdvReac Type Severity Reaction Status Date / Time No Known Drug Allergies Allergy Other Verified 08/22/24 19:52 Vital Signs Vital Signs - 24 hr 08/22/24 19:56 08/22/24 20:19 08/22/24 20:20 Temperature 97 F L Pulse Rate 112 H 112 H 124 H Respiratory Rate 15 23 H 19 Blood Pressure 152/120 H 155/107 H Pulse Oximetry 94 92 Oxygen Delivery Room Air 08/22/24 21:10 08/22/24 21:17 08/22/24 21:46 Temperature Pulse Rate 99 96 Respiratory Rate 18 27 H 20 Blood Pressure 135/98 H 159/83 H Pulse Oximetry 94 94 Oxygen Delivery 08/22/24 23:59 08/23/24 00:01 Temperature Pulse Rate 104 H 85 Respiratory Rate 22 H Blood Pressure 132/80 131/80 Pulse Oximetry 92 Oxygen Delivery Exam Narrative: General: In no acute distress, well nourished Head: atraumatic, no encephalopathy Eyes: PERRLA, sclera clear ENT: tacky mucous membranes, nasal passages clear Neck: supple, no JVD, no adenopathy, trachea midline Cardiac: Normal S1 and S2. Irregular rate and rhythm, No murmur, gallops or friction rubs, peripheral pulses intact. Respiratory: Lungs clear to auscultation, no adventitious lung sounds, currently on room air Gastrointestinal: soft, non-distended, non-tender, hypoactive bowel sounds.Reports belching, not passing flatus. NGT to LIS with dark green bilious drainage. : voiding without difficulty. Extremities: moves all extremities well, no edema, good ROM, strength 5/5 Skin: clean, dry, intact. No wounds or lesions. Neuro: Alert and oriented x4, cranial nerves intact, no neuro deficits. Psych: normal mood, normal affect, interactive H&P: Results Labs Labs: Short CBC 08/22/24 Range/Units 20:40 WBC 12.9 H (4.5-10.0) K/mm3 Hgb 16.4 (14.0-18.0) g/dL Hct 52.1 H (42.0-52.0) % Plt Count 279 (150-375) k/mm3 [facility] 08/22/24 20:40 Sodium 139 Potassium 3.6 Chloride 95 L Carbon Dioxide 35 H BUN 22 H Creatinine 0.78 Glucose 111 H Calcium 8.9 Cardiac Enzymes 08/22/24 Range/Units 20:40 Troponin I 0.057 H* (0.000-0.034) ng/mL Liver Function 08/22/24 Range/Units 20:40 Total Bilirubin 1.4 H (0.2-1.3) mg/dL AST 34 (17-59) U/L ALT 19 (6-50) U/L Alkaline Phosphatase 64 (38-126) U/L Albumin 4.1 (3.5-5.1) g/dL Urine 08/22/24 Range/Units 20:40 Urine Color Yellow (Yellow) Urine Appearance Clear (Clear) Urine pH 6.5 (5.0-9.0) Ur Specific [place] 1.022 (1.001-1.035) Urine Protein 1+ H (Negative) mg/dL Urine Glucose (UA) 3+ H (Negative) mg/dL Imaging Chest x-ray: Radiologist's impression: EXAMINATION: XR chest 1V portable Exam Date/Time: 08/22/2024 21:35 CDT HISTORY: sob, chf Comparison: None. RESULT: Lines, tubes, and devices: None. Lungs and pleura: Low volumes with crowding. Indistinct vessels. Patchy mid and lower left and lower right airspace disease. Minimal left costophrenic angle blunting. Cardiomediastinal silhouette: Stable. Other: No acute osseous or upper abdominal finding. IMPRESSION: Pulmonary opacities may represent edema, probably with a component of atelectasis. Infection not excluded. Trace left effusion. Reviewed, dictated and finalized at [facility]. Chest/abdomen/pelvis CTA: Radiologist's impression: EXAMINATION: CTA chest PE abdomen pel DATE: 08/22/2024 22:07 INDICATION: sob, elev trop/dimer TECHNIQUE: Computed tomography angiography (CTA) of the chest was performed with 100 mL Omnipaque-350 intravenous contrast timed to evaluate the pulmonary arteries, followed by portal venous phase imaging of the abdomen and pelvis. Coronal maximum intensity projection 3D-reconstructions were created by the technologist. The dose-length product (DLP) was 1263.27 mGy-cm. Automated exposure control and iterative reconstruction technique were employed. COMPARISON: X-ray chest, same date. FINDINGS: CHEST: Lung parenchyma and airways: Centrilobular nodular and peribronchovascular consolidation in the lingula. Bilateral dependent atelectasis. Patent airways. Pleura: Moderate bilateral pleural fluid collections. Thoracic inlet, axillae and chest wall: No thyroid mass. Gynecomastia, asymmetr ically larger on the right. Thoracic aorta: No significant dilation. No dissection. Mediastinum: Dilated central pulmonary arteries as can be seen with pulmonary arterial hypertension. Heart and pericardium: Marked cardiomegaly. Coronary artery calcifications: Mild. Thoracic bones: No acute osseous finding. Pulmonary arteries: Study quality: Motion artifact obscures the segmental and subsegmental left lower lobe pulmonary arteries. No pulmonary emboli detected in the adequately visualized vessels. ABDOMEN/PELVIS: Liver: Subcentimeter hypodensities, too small to characterize but most likely represent cysts. Biliary/Gallbladder: Gallbladder is contracted with mild pericholecystic fluid, presumably related to the ascites. No bile duct dilation. Pancreas: No mass or duct dilation. Spleen: Multiple low densities in the spleen. Adrenals:No mass. Kidneys: Multiple bilateral indeterminate density renal lesions. GI tract: Marked gastric distention. Multiple loops of proximal and mid dilated small bowel, with interloop fluid, without pneumatosis or enhancement change. Transition point in the umbilical hernia appendix not confidently visualized. Diverticulosis without diverticulitis. Mesentery/Peritoneum: No mass or free air. Small volume mesenteric fluid. Retroperitoneum: No mass. Atherosclerotic calcifications of intra-abdominal arterial vessels. Pelvis: Mild bladder wall thickening, presumably secondary to chronic outlet obstruction from prostatomegaly. Soft Tissues: Moderate umbilical hernia containing a loop of small bowel. Small bilateral fat and fluid containing inguinal hernias with partial herniation of a portion of large bowel in the left inguinal hernia. Mild body wall edema. Abdominopelvic bones: No acute osseous finding. IMPRESSION: Subsegmental lingular consolidation suspicious for pneumonia or aspiration. Segmental and subsegmental left lower lobe pulmonary arteries not adequately assessed due to motion. No pulmonary embolus detected in the adequately visualized pulmonary arteries. Moderate bilateral pleural effusions. Asymmetric right gynecomastia, consider nonemergent mammography and breast ultrasound. Multiple splenic hypodensities, presumably related to cysts or hemangiomas. Infection or metastatic disease considered less likely. Bilateral indeterminate renal lesions, recommend nonemergent MRI or CT with and without contrast for further characterization. Small bowel obstruction, transition point at a moderate sized umbilical hernia that contains a loop of small bowel. Mild ascites. Reviewed, dictated and finalized at [facility]. Assessment and Plan Assessment and plan (1) Acute exacerbation of CHF (congestive heart failure): Code(s): I50.9 - Heart failure, unspecified Status: Acute Assessment and Plan: * ProBNP 7570 * Chest x-ray showing pulmonary opacities representing edema * Chest/abdomen/pelvis CTA showed moderate bilateral pleural effusions, subsegmental lingular consolidation suspicious for pneumonia or aspiration * Patient was given 40 mg of IV push Lasix in the ED * Will give an additional 40 mg IV push Lasix in the morning. * Plan for echocardiogram * Cardiology consulted (2) Elevated troponin: Code(s): R79.89 - Other specified abnormal findings of blood chemistry Status: Acute Assessment and Plan: * Troponin 0.058 * Likely demand ischemia (3) Atrial fibrillation with RVR: Code(s): I48.91 - Unspecified atrial fibrillation Status: Acute Assessment and Plan: * EKG showing sinus tach with occasional ventricular premature complexes with frequent supraventricular premature complexes, right bundle branch block, left posterior fascicular block with a rate of 111, QTC 499 according to the EKG read on printout. It was determined that the patient was in AFib RVR while in the ED. was also noted to be in AFib RVR at [facility] however left AMA before treatment. This is new onset. * Patient was given Cardizem bolus and started on Cardizem drip at 5 mg/hour * Cardiology consulted * Plan for echocardiogram * Will hold off on anticoagulation for now due to potential surgery. (4) Small bowel obstruction: Code(s): K56.609 - Unspecified intestinal obstruction, unspecified as to partial versus complete obstruction Status: Acute Assessment and Plan: * Chest/abdomen/pelvis CTA showed small bowel obstruction with transition point at a moderate-sized umbilical hernia that contains a loop of small bowel * General surgery consulted * NG tube placed to low intermittent suction with green bilious drainage * Continue NPO status * Started D5 1/2 normal saline at 50 mL/hour (5) Umbilical hernia: Code(s): K42.9 - Umbilical hernia without obstruction or gangrene Status: Acute Assessment and Plan: * Was reducible in the ER however when he coughed or sat up, hernia returned. * General surgery consulted * Currently NPO due to bowel obstruction and NGT to LIS * Hold off on anticoagulation for potential hernia repair tomorrow. (6) Pneumonia: Code(s): J18.9 - Pneumonia, unspecified organism Status: Acute Assessment and Plan: * Chest x-ray showing pulmonary opacities representing edema versus infection * Chest/abdomen/pelvis CTA was negative for PE, showed moderate bilateral pleural effusion, subsegmental lingular consolidation suspicious for pneumonia or aspiration * Patient was given Rocephin and azithromycin while in the ED * We will transition to Zosyn * WBC 12.9 (7) Elevated d-dimer: Code(s): R79.89 - Other specified abnormal findings of blood chemistry Status: Acute Assessment and Plan: * D-dimer 4.21 * CTA of the abdomen/pelvis/chest was negative for PE (8) Elevated bilirubin: Code(s): R17 - Unspecified jaundice Status: Acute Assessment and Plan: * Total bilirubin 1.4 * Continue to trend (9) Elevated lipase: Code(s): R74.8 - Abnormal levels of other serum enzymes Status: Acute Assessment and Plan: * Lipase elevated at 351 * Will recheck labs in the morning (10) Hyperlipidemia: Code(s): E78.5 - Hyperlipidemia, unspecified Status: Chronic Assessment and Plan: * Will hold aspirin and rosuvastatin for now due to NPO status (11) Vitamin D deficiency: Code(s): E55.9 - Vitamin D deficiency, unspecified Status: Chronic Assessment and Plan: * Will hold vitamin-D 3 for now due to NPO status (12) Hypertension: Code(s): I10 - Essential (primary) hypertension Status: Chronic Assessment and Plan: * Coreg on hold due to NPO status * Blood pressures ranging 117/63 to 132/80 * Continue to monitor Quality VTE Prophylaxis VTE prophylaxis: mechanical ordered Hospitalist MIPS Advance Care Plan I have confirmed that the patient's Advanced Care Plan is present, code status is documented, or surrogate decision maker is listed in patient medical record.: Yes Medication Reconciliation I have utilized all available resources to obtain, update and review the patients current medications (includes all prescriptions, OTC, herbals, can nabis, and nutritional supplements).: Yes
[2024-08-23 00:33] LABS: Troponin I 0.058 ng/mL (0.000-0.034)
--- NOTE | 2024-08-23 01:39 | ADMGEN ---
This patient, Js Contreras, was admitted to IMU Room 205-02. Patient/family oriented to hospital policies and general routines including ID bracelet, bed and alarms, visiting hours, pain management, procedures, bathroom and other care routines, personal items, smoking policy, room service/diet, and visiting hours. Information on how to activate the Rapid Response Team has been discussed. Patient/Family are encouraged to report perceived risks to care and to ask questions if they do not understand what they are told or what they should do.
[2024-08-23] MEDS: DEXTROSE 5%/0.45% SOD CHL 1,000 ML 100 ML IV CONT ×2 (01:54→12:38)
[2024-08-23] MEDS: PIPERACILLN/TAZ 3.375GM/NS50ML 3.375 GM/50 ML BAG IVPB ×3 (01:58→17:30)
[2024-08-23 03:22] LABS: Troponin I 0.058 ng/mL (0.000-0.034)
[2024-08-23 03:32] LABS: Influenza A QL RT-PCR Negative (Negative); Influenza B QL RT-PCR Negative (Negative); RSV RNA, RT-PCR Negative (Negative); SARS-CoV-2 RNA PCR Negative (Negative)
[2024-08-23 06:05] LABS: Glucose Point of Care 143 mg/dl (65-105)
[2024-08-23 08:03] LABS: Glucose Point of Care 115 mg/dl (65-105)
[2024-08-23] MEDS: FUROSEMIDE INJ 40 MG/4 ML VIAL IV PUSH ×2 (08:56→20:21)
[2024-08-23] MEDS: HYDROmorphone HCL INJ (*CRX) 1 MG/ML SYR 0.3 MG IV PUSH (09:51)
--- NOTE | 2024-08-23 10:09 | P.PNIM_ITS ---
Progress Note: A&P Assessment and Plan (1) Acute exacerbation of CHF (congestive heart failure): Qualifiers: Heart failure type: unspecified Qualified Code(s): I50.9 - Heart failure, unspecified Code(s): I50.9 - Heart failure, unspecified Status: Acute (2) Pneumonia: Qualifiers: Laterality: bilateral Lung location: lower lobe of lung Pneumonia type: due to unspecified organism Qualified Code(s): J18.9 - Pneumonia, unspecified organism Code(s): J18.9 - Pneumonia, unspecified organism Status: Acute (3) Small bowel obstruction: Code(s): K56.609 - Unspecified intestinal obstruction, unspecified as to partial versus complete obstruction Status: Acute (4) Atrial fibrillation with RVR: Code(s): I48.91 - Unspecified atrial fibrillation Status: Acute Plan (1) Acute exacerbation of CHF (congestive heart failure): Code(s): I50.9 - Heart failure, unspecified Status: Acute Assessment and Plan: ProBNP 7570 Chest x-ray showing pulmonary opacities representing edema Chest/abdomen/pelvis CTA showed moderate bilateral pleural effusions, subsegmental lingular consolidation suspicious for pneumonia or aspiration Consulted press tender incendiary grenade, continue IV Lasix per press tender incendiary grenade recommendation (2) Elevated troponin: Code(s): R79.89 - Other specified abnormal findings of blood chemistry Status: Acute Assessment and Plan: Troponin 0.058 Likely demand ischemia (3) Atrial fibrillation with RVR: Code(s): I48.91 - Unspecified atrial fibrillation Status: Acute Assessment and Plan: EKG showing sinus tach with occasional ventricular premature complexes with frequent supraventricular premature complexes, right bundle branch block, left posterior fascicular block with a rate of 111, QTC 499 according to the EKG read on printout. It was determined that the patient was in AFib RVR while in the ED. was also noted to be in AFib RVR at [facility] however left AMA before treatment. This is new onset. Patient was given Cardizem bolus and started on Cardizem drip at 5 mg/hour Cardiology consulted Plan for echocardiogram Will hold off on anticoagulation for now due to potential surgery. (4) Small bowel obstruction: Code(s): K56.609 - Unspecified intestinal obstruction, unspecified as to partial versus complete obstruction Status: Acute Assessment and Plan: Chest/abdomen/pelvis CTA showed small bowel obstruction with transition point at a moderate-sized umbilical hernia that contains a loop of small bowel General surgery consulted NG tube placed to low intermittent suction with green bilious drainage Continue NPO status Started D5 1/2 normal saline at 50 mL/hour (5) Umbilical hernia: Code(s): K42.9 - Umbilical hernia without obstruction or gangrene Status: Acute Assessment and Plan: Was reducible in the ER however when he coughed or sat up, hernia returned. General surgery consulted Currently NPO due to bowel obstruction and NGT to LIS Hold off on anticoagulation for potential hernia repair (6) Pneumonia: Code(s): J18.9 - Pneumonia, unspecified organism Status: Acute Assessment and Plan: Chest x-ray showing pulmonary opacities representing edema versus infection Chest/abdomen/pelvis CTA was negative for PE, showed moderate bilateral pleural effusion, subsegmental lingular consolidation suspicious for pneumonia or aspiration Continue Zosyn and azithromycin IV (7) Elevated d-dimer: Code(s): R79.89 - Other specified abnormal findings of blood chemistry Status: Acute Assessment and Plan: D-dimer 4.21 CTA of the abdomen/pelvis/chest was negative for PE (8) Elevated bilirubin: Code(s): R17 - Unspecified jaundice Status: Acute Assessment and Plan: Total bilirubin 1.4 Continue to trend Elevated lipase: Code(s): R74.8 - Abnormal levels of other serum enzymes Status: Acute Assessment and Plan: Lipase elevated at 351 Will recheck labs in the morning Hyperlipidemia: Code(s): E78.5 - Hyperlipidemia, unspecified Status: Chronic Assessment and Plan: Will hold aspirin and rosuvastatin for now due to NPO status Vitamin D deficiency: Code(s): E55.9 - Vitamin D deficiency, unspecified Status: Chronic Assessment and Plan: Will hold vitamin-D 3 for now due to NPO status Hypertension: Code(s): I10 - Essential (primary) hypertension Status: Chronic Assessment and Plan: Coreg on hold due to NPO status Blood pressures ranging 117/63 to 132/80 Continue to monitor Subjective Date/time seen: 08/23/24 10:09 Interval history: I saw examined the patient. Patient is on G-tube intermittent suction, patient disease denies abdomen pain nausea vomiting. Patient also denies chest pain, shortness breast. Patient has a cough with scant phlegm Exam Narrative: General: In no acute distress, well nourished Head: atraumatic, no encephalopathy Eyes: PERRLA, sclera clear ENT: tacky mucous membranes, nasal passages clear Neck: supple, no JVD, no adenopathy, trachea midline Cardiac: Normal S1 and S2. Irregular rate and rhythm, No murmur, gallops or friction rubs, peripheral pulses intact. Respiratory: Lungs clear to auscultation, no adventitious lung sounds, currently on room air Gastrointestinal: soft, non-distended, non-tender, hypoactive bowel sounds.Reports belching, not passing flatus. NGT to LIS with dark green bilious drainage. : voiding without difficulty. Extremities: moves all extremities well, no edema, good ROM, strength 5/5 Skin: clean, dry, intact. No wounds or lesions. Neuro: Alert and oriented x4, cranial nerves intact, no neuro deficits. Psych: normal mood, normal affect, interactive Objective Data Vital Signs Vital Signs: Vital Signs - 24 hr 08/22/24 19:56 08/22/24 20:19 08/22/24 20:20 Temperature 97 F L Pulse Rate 112 H 112 H 124 H Respiratory Rate 15 23 H 19 Blood Pressure 152/120 H 155/107 H Pulse Oximetry 94 92 Oxygen Delivery Room Air Oxygen Flow Rate 08/22/24 21:10 08/22/24 21:17 08/22/24 21:46 Temperature Pulse Rate 99 96 Respiratory Rate 18 27 H 20 Blood Pressure 135/98 H 159/83 H Pulse Oximetry 94 94 Oxygen Delivery Oxygen Flow Rate 08/22/24 23:59 08/23/24 00:01 08/23/24 01:26 Temperature 97.8 F Pulse Rate 104 H 85 109 H Respiratory Rate 22 H 18 Blood Pressure 132/80 131/80 117/63 Pulse Oximetry 92 90 Oxygen Delivery Oxygen Flow Rate 08/23/24 01:54 08/23/24 02:00 08/23/24 02:13 Temperature Pulse Rate 91 92 102 H Respiratory Rate Blood Pressure Pulse Oximetry 93 Oxygen Delivery Nasal Cannula Oxygen Flow Rate 2 08/23/24 03:12 08/23/24 03:56 08/23/24 04:00 Temperature 97.6 F Pulse Rate 97 92 87 Respiratory Rate 17 Blood Pressure 126/73 Pulse Oximetry 94 94 Oxygen Delivery Nasal Cannula Oxygen Flow Rate 2 08/23/24 04:38 08/23/24 06:00 08/23/24 06:00 Temperature 97.4 F L Pulse Rate 89 97 96 Respiratory Rate 18 Blood Pressure 125/88 Pulse Oximetry 92 Oxygen Delivery Oxygen Flow Rate 08/23/24 06:19 08/23/24 08:00 08/23/24 09:16 Temperature 97.4 F L Pulse Rate 95 84 Respiratory Rate 20 Blood Pressure 138/70 Pulse Oximetry 96 93 Oxygen Delivery Nasal Cannula Oxygen Flow Rate 2 Intake/Output Intake/Output: Intake & Output 08/20/24 08/22/24 08/22/24 08/23/24 23:59 00:59 23:59 23:59 Intake Total 1000 331.7 Output Total 725 Balance 1000 -393.3 Meds/Results Medications: Active Medications Generic Name Dose Route Start Last Admin Trade Name Freq PRN Reason Stop Dose Admin Acetaminophen 650 mg 08/23/24 00:33 Acetaminophen 650 Mg Suppository RECTAL Q6H PRN Mild Pain (1-3) or Fever Acetaminophen 650 mg 08/23/24 00:37 Acetaminophen 325 Mg Tablet PO Q4H PRN Mild Pain (1-3) or Fever Albuterol 2 puff 08/23/24 02:18 Albuterol Sulfate (*Sp) Aerosol 1 Puff INHALATION Q6HRT PRN shortness of breath or wheezing Dextrose 12.5 gm 08/23/24 00:33 Dextrose 50% 25 Gm/50 Ml Syringe IV PUSH PRN PRN Hypoglycemia Protocol Furosemide 40 mg 08/23/24 09:00 08/23/24 08:56 Furosemide Inj 40 Mg/4 Ml Vial IV PUSH 40 mg Q12HR REJI Administration Glucagon 1 mg 08/23/24 00:33 Glucagon For Inj 1 Mg Vial IM PRN PRN Hypoglycemia Protocol Glucose 15 gm 08/23/24 00:33 Glucose Oral Gel 15 Gm Of Glucse In 37.5 Gm Tube PO PRN PRN Hypoglycemia Protocol Hydromorphone HCl 0.3 mg 08/23/24 09:22 08/23/24 09:51 Hydromorphone Hcl Inj (*Crx) 1 Mg/Ml Syr IV PUSH 0.3 mg Q4HR PRN Administration Pain Rated 7-10 Diltiazem HCl 100 mg in 100 mls @ 5 mls/hr 08/22/24 23:33 08/23/24 06:19 Cardizem 100 Mg/100 Ml IV CONT 08/23/24 19:32 5 mg/hr .Q20H STA 5 mls/hr Titration Protocol 5 MG/HR Dextrose 1,000 mls @ 100 mls/hr 08/23/24 00:33 Dextrose 5% 1,000 Ml IVPB PRN PRN Hypoglycemia Protocol Dextrose/Sodium Chloride 1,000 mls @ 50 mls/hr 08/23/24 00:40 08/23/24 01:54 Dextrose 5% Sodium Chloride 0.45% IV CONT 100 mls/hr .Q20H REJI Administration Morphine Sulfate 2 mg 08/23/24 00:33 Morphine Sulfate (*Crx) 2 Mg/Ml Inj IV PUSH Q2H PRN Pain Rated 7-10 Ondansetron HCl 4 mg 08/23/24 00:33 Ondansetron Inj 4 Mg/2 Ml Vial IV PUSH Q4H PRN Nausea Perflutren Lipid Microsphere 0 ml 08/23/24 01:47 Perflutren Lipid Microspheres 1.5 Ml Vial Diluted To 10 Ml Total Volume IV PUSH 08/26/24 01:47 ONCE PRN adequate visualization Protocol Radiology Results: ITS Impressions Chest X-Ray 08/22/24 22:45 IMPRESSION: Pulmonary opacities may represent edema, probably with a component of atelectasis. Infection not excluded. Trace left effusion. Chest/Abdomen/Pelvis CTA 08/22/24 22:59 IMPRESSION: Subsegmental lingular consolidation suspicious for pneumonia or aspiration. Segmental and subsegmental left lower lobe pulmonary arteries not adequately assessed due to motion. No pulmonary embolus detected in the adequately visualized pulmonary arteries. Moderate bilateral pleural effusions. Asymmetric right gynecomastia, consider nonemergent mammography and breast ultrasound. Multiple splenic hypodensities, presumably related to cysts or hemangiomas. Infection or metastatic disease considered less likely. Bilateral indeterminate renal lesions, recommend nonemergent MRI or CT with and without contrast for further characterization. Small bowel obstruction, transition point at a moderate sized umbilical hernia that contains a loop of small bowel. Mild ascites. Abdomen X-Ray 08/23/24 05:36 Impression: NG tube in satisfactory position. Probable small bowel obstruction. Labs Labs: Laboratory Results - last 24 hr 08/22/24 08/22/24 08/23/24 20:40 23:53 02:46 WBC 12.9 H RBC 5.91 Hgb 16.4 Hct 52.1 H MCV 88.2 MCH 27.7 MCHC 31.5 L RDW 13.9 Plt Count 279 MPV 10.2 Immature Gran % (Auto) 0.5 Neut % (Auto) 72.0 Lymph % (Auto) 17.9 L [place] % (Auto) 9.1 H Eos % (Auto) 0.2 Baso % (Auto) 0.3 Lymph # (Auto) 2.31 [place] # (Auto) 1.2 H Eos # (Auto) 0.0 Baso # (Auto) 0.0 Abs Immat Gran (auto) 0.06 H Absolute Neuts (auto) 9.3 H Absolute Nucleated RBC 0.000 Nucleated RBC % 0.0 PT 15.6 H INR 1.2 APTT 29.7 D-Dimer 4.21 H Sodium 139 Potassium 3.6 Chloride 95 L Carbon Dioxide 35 H Anion Gap 9 BUN 22 H Creatinine 0.78 Estim Creat Clear Calc 64 Estimated GFR > 60 Glucose 111 H POC Capillary Glucose Lactic Acid 1.5 Calcium 8.9 Total Bilirubin 1.4 H AST 34 ALT 19 Alkaline Phosphatase 64 Troponin I 0.057 H* 0.058 H* 0.058 H* NT-Pro-B Natriuret Pep 7570 H Total Protein 8.0 Albumin 4.1 Lipase 351 H Urine Color Yellow Urine Appearance Clear Urine pH 6.5 Ur Specific [place] 1.022 Urine Protein 1+ H Urine Glucose (UA) 3+ H Urine Ketones 1+ H Ur Blood (Man) Non-hemolyzed trace Urine Nitrate Negative Urine Bilirubin Negative Urine Urobilinogen 1.0 Leukocyte Esterase Rfl Negative Urine RBC 6-10 H Urine WBC 0-5 Ur Squamous Epith Cells None seen Urine Bacteria None seen Urine Casts 0-2 Influenza A (RT-PCR) Influenza B (RT-PCR) RSV (RT-PCR) SARS-CoV-2 RNA (RT-PCR) 08/23/24 08/23/24 08/23/24 02:48 05:59 08:00 WBC RBC Hgb Hct MCV MCH MCHC RDW Plt Count MPV Immature Gran % (Auto) Neut % (Auto) Lymph % (Auto) [place] % (Auto) Eos % (Auto) Baso % (Auto) Lymph # (Auto) [place] # (Auto) Eos # (Auto) Baso # (Auto) Abs Immat Gran (auto) Absolute Neuts (auto) Absolute Nucleated RBC Nucleated RBC % PT INR APTT D-Dimer Sodium Potassium Chloride Carbon Dioxide Anion Gap BUN Creatinine Estim Creat Clear Calc Estimated GFR Glucose POC Capillary Glucose 143 H 115 H Lactic Acid Calcium Total Bilirubin AST ALT Alkaline Phosphatase Troponin I NT-Pro-B Natriuret Pep Total Protein Albumin Lipase Urine Color Urine Appearance Urine pH Ur Specific [place] Urine Protein Urine Glucose (UA) Urine Ketones Ur Blood (Man) Urine Nitrate Urine Bilirubin Urine Urobilinogen Leukocyte Esterase Rfl Urine RBC Urine WBC Ur Squamous Epith Cells Urine Bacteria Urine Casts Influenza A (RT-PCR) Negative Influenza B (RT-PCR) Negative RSV (RT-PCR) Negative SARS-CoV-2 RNA (RT-PCR) Negative
--- NOTE | 2024-08-23 10:15 | PM.CNGS ---
Assessment and Plan Assessment and plan (1) Small bowel obstruction: Code(s): K56.609 - Unspecified intestinal obstruction, unspecified as to partial versus complete obstruction Status: Acute Assessment and Plan: SBO secondary to incarcerated umbilical hernia. Unable to reduce the hernia on exam. WBC count up to 15,000 today. He is not having abdominal pain and his abdominal exam is benign, but he would be at risk for bowel ischemia with strangulation of the bowel. Will start him on IV Zosyn for now. Discussed with the patient that he will need to be set up for urgent repair of the incarcerated umbilical hernia. Will discuss with Dr. Lewis to decipher timing of surgery. Continue NG tube decompression, bowel rest, and IV fluids. (2) Incarcerated umbilical hernia: Code(s): K42.0 - Umbilical hernia with obstruction, without gangrene Status: Acute Assessment and Plan: See plan above. (3) Pneumonia: Qualifiers: Laterality: bilateral Lung location: lower lobe of lung Pneumonia type: due to unspecified organism Qualified Code(s): J18.9 - Pneumonia, unspecified organism Code(s): J18.9 - Pneumonia, unspecified organism Status: Acute Assessment and Plan: Management per primary team (4) Atrial fibrillation with RVR: Code(s): I48.91 - Unspecified atrial fibrillation Status: Acute Assessment and Plan: New diagnosis. Currently on a diltiazem infusion in the IMU with rate controlled. Echo pending. (5) Elevated troponin: Code(s): R79.89 - Other specified abnormal findings of blood chemistry Status: Acute Assessment and Plan: Echo pending. (6) Congestive heart failure: Code(s): I50.9 - Heart failure, unspecified Status: Acute Assessment and Plan: Elevated proBNP. Echo pending. (7) Hypertension: Code(s): I10 - Essential (primary) hypertension Status: Chronic (8) Substance abuse: Code(s): F19.10 - Other psychoactive substance abuse, uncomplicated Status: Chronic Plan I have discussed the patient's case and plan of care with Dr. Lewis. Thank you for allowing us to see the patient in consultation and we will continue to follow along with you. History of Present Illness Consult details Consult date: 08/23/24 Reason for consult: other (Small-bowel obstruction, incarcerated umbilical hernia) Requesting physician: Jolie Palma PA-C Narrative: This is a 74-year-old man with PMH of hypertension, hyperlipidemia, CHF, and cocaine/marijuana abuse, who we have been asked to see in surgical consultation for small-bowel obstruction and incarcerated umbilical hernia. He presented to the ED with complaints of abdominal pain, vomiting, and weakness yesterday. He had also been evaluated at [facility] about 2 weeks ago for shortness of breath and was treated with diuretics. At that time, he reports being told he was in atrial fibrillation but did not receive further treatment. He again went to [facility] yesterday for his abdominal complaints but left AMA due to a long wait. He came into [facility] the ED instead for evaluation. He has had progressive shortness of breath over the past 2 months that is worse when lying flat and also worse with exertion. He has also had intermittent lower abdominal pain for the past few months that has progressed and gotten worse in the past few weeks. He developed nausea and vomiting 2 days ago. He reports coffee-ground emesis. He also felt constipated the past 4 days. Labs in the ED [place] [address], D-dimer 4.21, lactic acid 1.5, proBNP 7570, and troponin 0.058. UA negative for UTI. Blood cultures ordered. CTA scan of the chest, abdomen and pelvis showed subsegmental lingular consolidation suspicious for pneumonia or aspiration, no pulmonary embolus detected although some areas of the left lower lobe pulmonary arteries were not adequately assessed due to motion, moderate bilateral pleural effusions, asymmetric right gynecomastia, multiple splenic hypodensities presumably related to sister hemangiomas, bilateral indeterminate renal lesions, and a small-bowel obstruction with transition point at a moderate-sized umbilical hernia that contains a loop of small bowel, and mild ascites. In the ED, he was found to be in atrial fibrillation with RVR and started on a diltiazem infusion. He was additionally given 1 L of IV fluids, Lasix, and started on IV antibiotics. He had an NG tube placed and was admitted. He is now seen in the IMU. He denies flatus and no BM for 3-4 days. Review of Systems Review of Systems: All systems reviewed & are unremarkable except as noted in HPI and below PMFSH Past Medical History Medical History (Updated 08/23/24 @ 10:24 by PAOLA Dwyer) Hypertension Hyperlipidemia Vitamin D deficiency Substance abuse Atrial fibrillation Congestive heart failure Surgical History Surgical History H/O hemorrhoidectomy History of appendectomy History of carpal tunnel release Social History Social History Smoking status: Never smoker Alcohol intake: never Substance use: current Substance use type: marijuana and crack/cocaine Other substance usage details: once in while Do You Feel Safe in your Home?: Yes Lack of Transportation: No Lack of Food: Never True Current Housing: I Have Housing Concerned About Future Housing: No Difficulty Paying Gas/Electric Bills: No Difficulty Paying for Meds: No Currently Unemployed: No Education: High School Diploma/GED Difficulty w/ Childcare or Family Care: No Spiritual care concerns: No Meds Home Medications and Allergies Home Medications ?Medication ?Instructions ?Recorded ?Confirmed ?Type albuterol sulfate 90 mcg/actuation 2 puff inhalation Q6H PRN 08/23/24 08/23/24 History aerosol inhaler shortness of breath or wheezing aspirin 81 mg chewable tablet 81 mg PO DAILY 08/23/24 08/23/24 History carvedilol 6.25 mg tablet 6.25 mg PO BID 08/23/24 08/23/24 History cholecalciferol (vitamin D3) 50 2,000 unit PO DAILY 08/23/24 08/23/24 History mcg (2,000 unit) capsule rosuvastatin 20 mg tablet (Crestor) 10 mg PO HS 08/23/24 08/23/24 History Allergies Allergy/AdvReac Type Severity Reaction Status Date / Time No Known Drug Allergies Allergy Other Verified 08/22/24 19:52 Vital Signs Vital Signs - 24 hr 08/22/24 19:56 08/22/24 20:19 08/22/24 20:20 Temperature 97 F L Pulse Rate 112 H 112 H 124 H Respiratory Rate 15 23 H 19 Blood Pressure 152/120 H 155/107 H Pulse Oximetry 94 92 Oxygen Delivery Room Air Oxygen Flow Rate 08/22/24 21:10 08/22/24 21:17 08/22/24 21:46 Temperature Pulse Rate 99 96 Respiratory Rate 18 27 H 20 Blood Pressure 135/98 H 159/83 H Pulse Oximetry 94 94 Oxygen Delivery Oxygen Flow Rate 08/22/24 23:59 08/23/24 00:01 08/23/24 01:26 Temperature 97.8 F Pulse Rate 104 H 85 109 H Respiratory Rate 22 H 18 Blood Pressure 132/80 131/80 117/63 Pulse Oximetry 92 90 Oxygen Delivery Oxygen Flow Rate 08/23/24 01:54 08/23/24 02:00 08/23/24 02:13 Temperature Pulse Rate 91 92 102 H Respiratory Rate Blood Pressure Pulse Oximetry 93 Oxygen Delivery Nasal Cannula Oxygen Flow Rate 2 08/23/24 03:12 08/23/24 03:56 08/23/24 04:00 Temperature 97.6 F Pulse Rate 97 92 87 Respiratory Rate 17 Blood Pressure 126/73 Pulse Oximetry 94 94 Oxygen Delivery Nasal Cannula Oxygen Flow Rate 2 08/23/24 04:38 08/23/24 06:00 08/23/24 06:00 Temperature 97.4 F L Pulse Rate 89 97 96 Respiratory Rate 18 Blood Pressure 125/88 Pulse Oximetry 92 Oxygen Delivery Oxygen Flow Rate 08/23/24 06:19 08/23/24 08:00 08/23/24 09:16 Temperature 97.4 F L Pulse Rate 95 84 Respiratory Rate 20 Blood Pressure 138/70 Pulse Oximetry 96 93 Oxygen Delivery Nasal Cannula Oxygen Flow Rate 2 Exam Const: General: comfortable and no acute distress Nutritional Appearance: average body habitus Orientation/consciousness: patient oriented x3 HENMT: Head: normocephalic and atraumatic Ears: hearing grossly normal bilaterally Mouth: Yes moist mucous membranes Eyes: General: appearance normal, both eyes and all related structures Pupils: Equal, round and reactive pupils present Neck: Neck: normal visual inspection and full ROM Resp: Effort & Inspection: no respiratory distress Auscultation: clear to auscultation bilaterally Cardio: Rate: regular rate Rhythm: abnormal rhythm irregularly irregular Peripheral pulses: Peripheral pulses 2+ throughout GI: Inspection: distended GI Palp: Yes Soft to palpation, No Tenderness to palpation present (GI), No Guarding due to palpation present (GI), Yes No hepatosplenomegaly present, Yes Hernia present umbilical (incarcerated umbilical hernia, unable to reduce, nontender, slightly erythematous over hernia) and No Rebound tenderness present Auscultation: absent bowel sounds Skin: General skin exam: normal color Neuro: General: moves all extremities and no focal motor deficits Speech: normal speech Motor exam (neuro): 5/5 motor strength present throughout Extrem: General: normal to inspection and no edema Psych: Mental Status: mental status grossly normal Attitude: cooperative Insight: Good insight present (Psych) Judgement: Good judgement present (Psych) Results Labs 08/23/24 10:32 08/23/24 10:32 Labs: Abnormal lab results 08/22/24 08/22/24 08/23/24 Range/Units 20:40 23:53 02:46 WBC 12.9 H (4.5-10.0) K/mm3 Hct 52.1 H (42.0-52.0) % MCHC 31.5 L (32-36) g/dl Lymph % (Auto) 17.9 L (18.3-44.2) % Kay % (Auto) 9.1 H (2.6-8.5) % Kay # (Auto) 1.2 H (0.1-0.6) K/mm3 Abs Immat Gran (auto) 0.06 H (0.00-0.031) K/mm3 Absolute Neuts (auto) 9.3 H (1.3-6.7) K/mm3 PT 15.6 H (11.1-14.7) Seconds D-Dimer 4.21 H (<0.48) ug/mL Chloride 95 L (98-107) mmol/L Carbon Dioxide 35 H (22-30) mmol/L BUN 22 H (9-20) mg/dL Glucose 111 H (65-110) mg/dL POC Capillary Glucose (65-105) mg/dl Total Bilirubin 1.4 H (0.2-1.3) mg/dL Troponin I 0.057 H* 0.058 H* 0.058 H* (0.000-0.034) ng/mL NT-Pro-B Natriuret Pep 7570 H (19.9-100) pg/mL Lipase 351 H (23-300) U/L Urine Protein 1+ H (Negative) mg/dL Urine Glucose (UA) 3+ H (Negative) mg/dL Urine Ketones 1+ H (Negative) mg/dL Urine RBC 6-10 H (0-2) /hpf 08/23/24 08/23/24 Range/Units 05:59 08:00 WBC (4.5-10.0) K/mm3 Hct (42.0-52.0) % MCHC (32-36) g/dl Lymph % (Auto) (18.3-44.2) % Kay % (Auto) (2.6-8.5) % Kay # (Auto) (0.1-0.6) K/mm3 Abs Immat Gran (auto) (0.00-0.031) K/mm3 Absolute Neuts (auto) (1.3-6.7) K/mm3 PT (11.1-14.7) Seconds D-Dimer (<0.48) ug/mL Chloride (98-107) mmol/L Carbon Dioxide (22-30) mmol/L BUN (9-20) mg/dL Glucose (65-110) mg/dL POC Capillary Glucose 143 H 115 H (65-105) mg/dl Total Bilirubin (0.2-1.3) mg/dL Troponin I (0.000-0.034) ng/mL NT-Pro-B Natriuret Pep (19.9-100) pg/mL Lipase (23-300) U/L Urine Protein (Negative) mg/dL Urine Glucose (UA) (Negative) mg/dL Urine Ketones (Negative) mg/dL Urine RBC (0-2) /hpf Diabetes panel 08/22/24 Range/Units 20:40 Sodium 139 (137-145) mmol/L Potassium 3.6 (3.4-5.0) mmol/L Chloride 95 L (98-107) mmol/L Carbon Dioxide 35 H (22-30) mmol/L BUN 22 H (9-20) mg/dL Creatinine 0.78 (0.7-1.3) mg/dL Glucose 111 H (65-110) mg/dL Calcium 8.9 (8.4-10.2) mg/dL AST 34 (17-59) U/L ALT 19 (6-50) U/L Alkaline Phosphatase 64 (38-126) U/L Total Protein 8.0 (6.3-8.2) g/dL Albumin 4.1 (3.5-5.1) g/dL Calcium panel 08/22/24 Range/Units 20:40 Calcium 8.9 (8.4-10.2) mg/dL Albumin 4.1 (3.5-5.1) g/dL Pituitary panel 08/22/24 Range/Units 20:40 Sodium 139 (137-145) mmol/L Potassium 3.6 (3.4-5.0) mmol/L Chloride 95 L (98-107) mmol/L Carbon Dioxide 35 H (22-30) mmol/L BUN 22 H (9-20) mg/dL Creatinine 0.78 (0.7-1.3) mg/dL Glucose 111 H (65-110) mg/dL Calcium 8.9 (8.4-10.2) mg/dL Adrenal panel 08/22/24 Range/Units 20:40 Sodium 139 (137-145) mmol/L Potassium 3.6 (3.4-5.0) mmol/L Chloride 95 L (98-107) mmol/L Carbon Dioxide 35 H (22-30) mmol/L BUN 22 H (9-20) mg/dL Creatinine 0.78 (0.7-1.3) mg/dL Glucose 111 H (65-110) mg/dL Calcium 8.9 (8.4-10.2) mg/dL Total Bilirubin 1.4 H (0.2-1.3) mg/dL AST 34 (17-59) U/L ALT 19 (6-50) U/L Alkaline Phosphatase 64 (38-126) U/L Total Protein 8.0 (6.3-8.2) g/dL Albumin 4.1 (3.5-5.1) g/dL All other labs normal. Imaging Additional studies: ITS Impressions Chest X-Ray 08/22/24 22:45 IMPRESSION: Pulmonary opacities may represent edema, probably with a component of atelectasis. Infection not excluded. Trace left effusion. Chest/Abdomen/Pelvis CTA 08/22/24 22:59 IMPRESSION: Subsegmental lingular consolidation suspicious for pneumonia or aspiration. Segmental and subsegmental left lower lobe pulmonary arteries not adequately assessed due to motion. No pulmonary embolus detected in the adequately visualized pulmonary arteries. Moderate bilateral pleural effusions. Asymmetric right gynecomastia, consider nonemergent mammography and breast ultrasound. Multiple splenic hypodensities, presumably related to cysts or hemangiomas. Infection or metastatic disease considered less likely. Bilateral indeterminate renal lesions, recommend nonemergent MRI or CT with and without contrast for further characterization. Small bowel obstruction, transition point at a moderate sized umbilical hernia that contains a loop of small bowel. Mild ascites. Abdomen X-Ray 08/23/24 05:36 Impression: NG tube in satisfactory position. Probable small bowel obstruction.
[2024-08-23 10:44] LABS: Basophils Absolute Auto 0.1 K/mm3 (0.0-0.1); Basophils Percent Auto 0.4 % (0.2-1.2); Eosinophils Absolute Auto 0.1 K/mm3 (0-0.3); Eosinophils Percent Auto 0.4 % (0-4.4); Hematocrit 47.8 % (42.0-52.0); Hemoglobin 15.1 g/dL (14.0-18.0); Immature Granulocyte Absolute 0.06 K/mm3 (0.00-0.031); Immature Granulocyte Percent A 0.4 % (0-0.5); Lymphocytes Absolute Auto 2.86 K/mm3 (0.9-3.2); Lymphocytes Percent Auto 18.7 % (18.3-44.2); Mean Corpuscular HGB Conc 31.6 g/dl (32-36); Mean Corpuscular Hemoglobin 27.4 pg (26-34); Mean Corpuscular Volume 86.8 fl (80-100); Mean Platelet Volume 10.2 fl (7.4-10.4); Monocytes Absolute Auto 1.6 K/mm3 (0.1-0.6); Monocytes Percent Auto 10.4 % (2.6-8.5); Neutrophils Absolute Auto 10.7 K/mm3 (1.3-6.7); Neutrophils Percent Auto 69.7 % (45.5-73.1); Platelet Count Result 278 k/mm3 (150-375); Red Blood Count 5.51 M/mm3 (4.6-6.20); Red Cell Distribution Width 13.9 % (11.5-14.5); White Blood Count 15.3 K/mm3 (4.5-10.0)
[2024-08-23 10:55] LABS: Anion Gap 10 mmol/L (4-12); Blood Urea Nitrogen 17 mg/dL (9-20); Calcium 7.9 mg/dL (8.4-10.2); Carbon Dioxide 31 mmol/L (22-30); Chloride 97 mmol/L (98-107); Estimated CRCL calculation 67 ml/min; Estimated Glomerular Filt Rate > 60; Glucose 125 mg/dL (65-110); Magnesium 1.8 mg/dL (1.6-2.3); Phosphorus 3.8 mg/dL (2.5-4.5); Potassium 3.1 mmol/L (3.4-5.0); Sodium 138 mmol/L (137-145)
[2024-08-23 11:51] LABS: Glucose Point of Care 124 mg/dl (65-105)
--- NOTE | 2024-08-23 12:39 | P.CONCA_ITS ---
Assessment and Plan Assessment and plan (1) Congestive heart failure: Code(s): I50.9 - Heart failure, unspecified Status: Acute Plan 1. Acute on chronic CHF. Reported history of systolic and diastolic heart failure per [facility] records. Unclear what his LVEF is. Do not have [facility]. 2. Elevated troponins. Not an acute coronary syndrome. 3. Mild non-obstructive CAD per coronary CTA 07/2023 4. Small bowel obstruction 5. Alcoholic cirrhosis 6. Hypertension 7. Hyperlipidemia 8. Right bundle branch block 9. Substance use PLAN: -EKG from [facility] from 08/15 was personally reviewed, shows wandering atrial pacemaker but NO AFIB. EKGs and tele here with sinus rhythm with frequent PACs, but NO atrial fibrillation. Stop Diltiazem drip. -Continue with IV Lasix for CHF. Echocardiogram pending. -Given mild NOCAD, recommend ASA and high intensity statin. -Management of small bowel obstruction as per General Surgery -[facility] records mention patient has alcoholic cirrhosis, which would explain the ascites, gynecomastia seen on CT imaging. Management as per primary team. -Further recommendations and plan pending results of echo. History of Present Illness History of Present Illness Consult date/time: 08/23/24 12:39 Requesting physician: Viv Mendoza APRN Consult reason: atrial fibrillation Reason For Visit: Afib w RVR, Acute CHF, Elev trop, SBO, Umbilical h Narrative: We are consulted for atrial fibrillation. Js is a 74 year old male with a reported history of alcoholic cirrhosis, chronic combined systolic and diastolic heart failure, hypertension, hyperlipidemia, right bundle branch block, reported AFIB, cannabis use, histoplasmosis who presented to [place] due to abdominal pain, vomiting, weakness. Thought to be in AFIB in the ED, started on Diltiazem drip. Left AMA from [place] and came over to [place]. Workup here shows troponins of 0.057, 0.058, 0.058. NT pro BNP 7570. Chest/Abdomen/Pelvis CTA with possible pneumonia, no PE, moderate bilateral pleural effusions, asymmetric right gynecomastia, small bowel obstruction, mild ascites. EKG here with sinus rhythm with PACs. Review of Systems 2 Review of Systems: All systems reviewed & are unremarkable except as noted in HPI and below (HPI) [facility] Past Medical History Medical History Hypertension Hyperlipidemia Vitamin D deficiency Substance abuse Atrial fibrillation Congestive heart failure Surgical History Surgical History H/O hemorrhoidectomy History of appendectomy History of carpal tunnel release Social History Social History Smoking status: Never smoker Alcohol intake: never Substance use: current Substance use type: marijuana and crack/cocaine Other substance usage details: once in while Do You Feel Safe in your Home?: Yes Lack of Transportation: No Lack of Food: Never True Current Housing: I Have Housing Concerned About Future Housing: No Difficulty Paying Gas/Electric Bills: No Difficulty Paying for Meds: No Currently Unemployed: No Education: High School Diploma/GED Difficulty w/ Childcare or Family Care: No Spiritual care concerns: No Meds Home Medications and Allergies Home Medications ?Medication ?Instructions ?Recorded ?Confirmed ?Type albuterol sulfate 90 mcg/actuation 2 puff inhalation Q6H PRN 08/23/24 08/23/24 History aerosol inhaler shortness of breath or wheezing aspirin 81 mg chewable tablet 81 mg PO DAILY 08/23/24 08/23/24 History carvedilol 6.25 mg tablet 6.25 mg PO BID 08/23/24 08/23/24 History cholecalciferol (vitamin D3) 50 2,000 unit PO DAILY 08/23/24 08/23/24 History mcg (2,000 unit) capsule rosuvastatin 20 mg tablet (Crestor) 10 mg PO HS 08/23/24 08/23/24 History Allergies Allergy/AdvReac Type Severity Reaction Status Date / Time No Known Drug Allergies Allergy Other Verified 08/22/24 19:52 Vital Signs Vital Signs - 24 hr 08/22/24 19:56 08/22/24 20:19 08/22/24 20:20 Temperature 36.1 C L Pulse Rate 112 H 112 H 124 H Respiratory Rate 15 23 H 19 Blood Pressure 152/120 H 155/107 H Pulse Oximetry 94 92 Oxygen Delivery Room Air Oxygen Flow Rate 08/22/24 21:10 08/22/24 21:17 08/22/24 21:46 Temperature Pulse Rate 99 96 Respiratory Rate 18 27 H 20 Blood Pressure 135/98 H 159/83 H Pulse Oximetry 94 94 Oxygen Delivery Oxygen Flow Rate 08/22/24 23:59 08/23/24 00:01 08/23/24 01:26 Temperature 36.6 C Pulse Rate 104 H 85 109 H Respiratory Rate 22 H 18 Blood Pressure 132/80 131/80 117/63 Pulse Oximetry 92 90 Oxygen Delivery Oxygen Flow Rate 08/23/24 01:54 08/23/24 02:00 08/23/24 02:13 Temperature Pulse Rate 91 92 102 H Respiratory Rate Blood Pressure Pulse Oximetry 93 Oxygen Delivery Nasal Cannula Oxygen Flow Rate 2 08/23/24 03:12 08/23/24 03:56 08/23/24 04:00 Temperature 36.4 C Pulse Rate 97 92 87 Respiratory Rate 17 Blood Pressure 126/73 Pulse Oximetry 94 94 Oxygen Delivery Nasal Cannula Oxygen Flow Rate 2 08/23/24 04:38 08/23/24 06:00 08/23/24 06:00 Temperature 36.3 C L Pulse Rate 89 97 96 Respiratory Rate 18 Blood Pressure 125/88 Pulse Oximetry 92 Oxygen Delivery Oxygen Flow Rate 08/23/24 06:19 08/23/24 08:00 08/23/24 08:00 Temperature 36.3 C L Pulse Rate 95 84 Respiratory Rate 20 Blood Pressure 138/70 Pulse Oximetry 96 93 Oxygen Delivery Nasal Cannula Oxygen Flow Rate 2 08/23/24 08:00 08/23/24 08:00 08/23/24 09:16 Temperature Pulse Rate 105 H 93 Respiratory Rate Blood Pressure 138/70 Pulse Oximetry 93 Oxygen Delivery Nasal Cannula Oxygen Flow Rate 2 08/23/24 10:00 Temperature Pulse Rate 94 Respiratory Rate Blood Pressure Pulse Oximetry Oxygen Delivery Oxygen Flow Rate Exam 2 Const: General: no acute distress Eyes: General: appearance normal, both eyes and all related structures S clera: sclerae normal Resp: Effort & Inspection: normal respiratory effort Auscultation: d iminished lung sounds Cardio: Rate: regular rate Rhythm: regular rhythm and abnormal rhythm with ectopic beats Skin: General skin exam: normal color Neuro: Speech: normal speech Psych: Mental Status: mental status grossly normal Affect: normal affect Results Labs and Meds 08/23/24 10:32 08/23/24 10:32 Lab results: Cardiac Enzymes 08/22/24 08/22/24 08/23/24 Range/Units 20:40 23:53 02:46 AST 34 (17-59) U/L Troponin I 0.057 H* 0.058 H* 0.058 H* (0.000-0.034) ng/mL Coagulation 08/22/24 Range/Units 20:40 PT 15.6 H (11.1-14.7) Seconds APTT 29.7 (22.3-36.8) Seconds CBC 08/22/24 08/23/24 Range/Units 20:40 10:32 WBC 12.9 H 15.3 H (4.5-10.0) K/mm3 RBC 5.91 5.51 (4.6-6.20) M/mm3 Hgb 16.4 15.1 (14.0-18.0) g/dL Hct 52.1 H 47.8 (42.0-52.0) % Plt Count 279 278 (150-375) k/mm3 Lymph # (Auto) 2.31 2.86 (0.9-3.2) K/mm3 [place] # (Auto) 1.2 H 1.6 H (0.1-0.6) K/mm3 Eos # (Auto) 0.0 0.1 (0-0.3) K/mm3 Baso # (Auto) 0.0 0.1 (0.0-0.1) K/mm3 Comprehensive Metabolic Panel 08/22/24 08/23/24 Range/Units 20:40 10:32 Sodium 139 138 (137-145) mmol/L Potassium 3.6 3.1 L (3.4-5.0) mmol/L Chloride 95 L 97 L (98-107) mmol/L Carbon Dioxide 35 H 31 H (22-30) mmol/L BUN 22 H 17 (9-20) mg/dL Creatinine 0.78 0.74 (0.7-1.3) mg/dL Glucose 111 H 125 H (65-110) mg/dL Calcium 8.9 7.9 L (8.4-10.2) mg/dL AST 34 (17-59) U/L ALT 19 (6-50) U/L Alkaline Phosphatase 64 (38-126) U/L Total Protein 8.0 (6.3-8.2) g/dL Albumin 4.1 (3.5-5.1) g/dL Intake and Output 08/22/24 08/23/24 08/23/24 23:59 07:59 15:59 Intake Total 1000 331.7 1008.4 Output Total 725 Balance 1000 -393.3 1008.4 Intake: IV 1000 331.7 1008.4 Dextrose 5%/0.45% Sod Chl 1,000 1000 ml @ 50 mls/hr IV CONT .Q20H REJI Rx#:[id number] Sodium Chloride 0.9% IV 1,000 1000 ml @ 999 mls/hr IV CONT .Q1H1M STA Rx#:[id number] dilTIAZem 100 MG/100 ML 100 mg 31.7 8.4 In 100 ml @ 5 MG/HR 5 mls/hr IV CONT .Q20H STA Rx#:[id number] Azithromycin 500 mg/Ns 250 ml 250 500 mg In 250 ml @ 250 mls/hr IVPB ONCE STA Rx#:[id number] cefTRIAXone 1 GM/NS 50 ML 1 gm 50 In 50 ml @ 100 mls/hr IVPB ONCE STA Rx#:[id number] Output: Urine 725 Patient Weight 08/23/24 23:59 Weight 79.3 kg
[2024-08-23 16:37] LABS: Glucose Point of Care 110 mg/dl (65-105)
[2024-08-24] VITALS (22 sets, daily range): BP systolic 110–151; BP diastolic 52–104; PULSE 83–110; RESP 12–21; TEMP 36.3–37.2; O2SAT 90–98
[2024-08-24] MEDS: PIPERACILLN/TAZ 3.375GM/NS50ML 3.375 GM/50 ML BAG IVPB ×3 (00:34→12:28)
[2024-08-24 00:41] LABS: Glucose Point of Care 112 mg/dl (65-105)
[2024-08-24 04:18] LABS: Basophils Absolute Auto 0.1 K/mm3 (0.0-0.1); Basophils Percent Auto 0.5 % (0.2-1.2); Eosinophils Absolute Auto 0.2 K/mm3 (0-0.3); Eosinophils Percent Auto 1.7 % (0-4.4); Hematocrit 46.3 % (42.0-52.0); Hemoglobin 14.7 g/dL (14.0-18.0); Immature Granulocyte Absolute 0.05 K/mm3 (0.00-0.031); Immature Granulocyte Percent A 0.4 % (0-0.5); Mean Corpuscular HGB Conc 31.7 g/dl (32-36); Mean Corpuscular Hemoglobin 27.5 pg (26-34); Mean Corpuscular Volume 86.7 fl (80-100); Mean Platelet Volume 10.1 fl (7.4-10.4); Monocytes Absolute Auto 1.3 K/mm3 (0.1-0.6); Monocytes Percent Auto 9.7 % (2.6-8.5); Neutrophils Absolute Auto 8.4 K/mm3 (1.3-6.7); Neutrophils Percent Auto 64.7 % (45.5-73.1); Platelet Count Result 242 k/mm3 (150-375); Red Blood Count 5.34 M/mm3 (4.6-6.20); Red Cell Distribution Width 13.8 % (11.5-14.5); White Blood Count 13.1 K/mm3 (4.5-10.0)
[2024-08-24 04:31] LABS: Lipase 851 U/L (23-300)
[2024-08-24 04:35] LABS: Alanine Aminotransferase 15 U/L (6-50); Albumin Level 3.3 g/dL (3.5-5.1); Alkaline Phosphatase 48 U/L (38-126); Anion Gap 10 mmol/L (4-12); Aspartate Amino Transferase 26 U/L (17-59); Bilirubin,Total 1.1 mg/dL (0.2-1.3); Blood Urea Nitrogen 13 mg/dL (9-20); Calcium 7.8 mg/dL (8.4-10.2); Carbon Dioxide 31 mmol/L (22-30); Chloride 96 mmol/L (98-107); Estimated CRCL calculation 73 ml/min; Estimated Glomerular Filt Rate > 60; Glucose 98 mg/dL (65-110); Potassium 2.6 mmol/L (3.4-5.0); Sodium 137 mmol/L (137-145)
[2024-08-24] MEDS: POTASSIUM CHLORIDE 20 MEQ PACKET (FOR LIQUID) 40 MEQ PO ×2 (05:21→08:54)
[2024-08-24 06:08] LABS: Glucose Point of Care 108 mg/dl (65-105)
[2024-08-24 07:56] LABS: Glucose Point of Care 109 mg/dl (65-105)
[2024-08-24] MEDS: FUROSEMIDE INJ 40 MG/4 ML VIAL IV PUSH (08:54)
[2024-08-24] MEDS: DEXTROSE 5%/0.45% SOD CHL 1,000 ML 50 ML IV CONT (08:56)
--- NOTE | 2024-08-24 09:22 | P.PNIM_ITS ---
Progress Note: A&P Assessment and Plan (1) Acute exacerbation of CHF (congestive heart failure): Qualifiers: Heart failure type: unspecified Qualified Code(s): I50.9 - Heart failure, unspecified Code(s): I50.9 - Heart failure, unspecified Status: Acute (2) Pneumonia: Qualifiers: Laterality: bilateral Lung location: lower lobe of lung Pneumonia type: due to unspecified organism Qualified Code(s): J18.9 - Pneumonia, unspecified organism Code(s): J18.9 - Pneumonia, unspecified organism Status: Acute (3) Small bowel obstruction: Code(s): K56.609 - Unspecified intestinal obstruction, unspecified as to partial versus complete obstruction Status: Acute (4) Atrial fibrillation with RVR: Code(s): I48.91 - Unspecified atrial fibrillation Status: Acute Plan Acute exacerbation of combined CHF Code(s): I50.9 - Heart failure, unspecified Status: Acute Assessment and Plan: ProBNP 7570 Chest x-ray showing pulmonary opacities representing edema Chest/abdomen/pelvis CTA showed moderate bilateral pleural effusions, subsegmental lingular consolidation suspicious for pneumonia or aspiration Left echocardiogram on 08/23 showed ventricular systolic function is mildly reduced, estimated at 40-45%. The left ventricular diastolic function is grade I diastolic dysfunction. Consulted customer service administrator, continue IV Lasix per customer service administrator recommendation Hypokalemia Replete with potassium chloride Follow-up BMP, Correct electrolyte abnormality accordingly Elevated troponin: Code(s): R79.89 - Other specified abnormal findings of blood chemistry Status: Acute Assessment and Plan: Troponin 0.058 Likely demand ischemia Atrial fibrillation with RVR: Code(s): I48.91 - Unspecified atrial fibrillation Status: Acute Assessment and Plan: EKG showing sinus tach with occasional ventricular premature complexes with frequent supraventricular premature complexes, right bundle branch block, left posterior fascicular block with a rate of 111, QTC 499 according to the EKG read on printout. It was determined that the patient was in AFib RVR while in the ED. was also noted to be in AFib RVR at [facility] however left AMA before treatment. This is new onset. Patient was given Cardizem bolus and started on Cardizem drip at 5 mg/hour Cardiology consulted Plan for echocardiogram hold off on anticoagulation for now due to potential surgery. Change metoprolol 5 mg Small bowel obstruction: Code(s): K56.609 - Unspecified intestinal obstruction, unspecified as to partial versus complete obstruction Status: Acute Assessment and Plan: Chest/abdomen/pelvis CTA showed small bowel obstruction with transition point at a moderate-sized umbilical hernia that contains a loop of small bowel General surgery consulted Was on NG tube placed to low intermittent suction with green bilious drainage Received D5 1/2 normal saline at 50 mL/hour Status post umbilical hernia repair 08/25 (5) Umbilical hernia: Code(s): K42.9 - Umbilical hernia without obstruction or gangrene Status: Acute Assessment and Plan: Was reducible in the ER however when he coughed or sat up, hernia returned. General surgery consulted Status post umbilical hernia repair (6) Pneumonia: Code(s): J18.9 - Pneumonia, unspecified organism Status: Acute Assessment and Plan: Chest x-ray showing pulmonary opacities representing edema versus infection Chest/abdomen/pelvis CTA was negative for PE, showed moderate bilateral pleural effusion, subsegmental lingular consolidation suspicious for pneumonia or aspiration Continue Zosyn and azithromycin IV (7) Elevated d-dimer: Code(s): R79.89 - Other specified abnormal findings of blood chemistry Status: Acute Assessment and Plan: D-dimer 4.21 CTA of the abdomen/pelvis/chest was negative for PE (8) Elevated bilirubin: Code(s): R17 - Unspecified jaundice Status: Acute Assessment and Plan: Total bilirubin 1.4 Continue to trend Elevated lipase: Code(s): R74.8 - Abnormal levels of other serum enzymes Status: Acute Assessment and Plan: Lipase elevated at 351 Will recheck labs in the morning Hyperlipidemia: Code(s): E78.5 - Hyperlipidemia, unspecified Status: Chronic Assessment and Plan: Will hold aspirin and rosuvastatin for now due to NPO status Vitamin D deficiency: Code(s): E55.9 - Vitamin D deficiency, unspecified Status: Chronic Assessment and Plan: hold vitamin-D 3 for now due to NPO status Hypertension: Code(s): I10 - Essential (primary) hypertension Status: Chronic Assessment and Plan: Coreg on hold due to NPO status Continue to monitor, adjust medication chronic Subjective Date/time seen: 08/24/24 09:22 Interval history: I saw examined the patient. Patient underwent robotic assisted repair incarcerated umbilical hernia. Patient cannot tolerate diet, patient is still on NG tube Exam Narrative: GENERAL: Ill-appearing in no acute distress. Well-nourished. - EYES: EOMI. Anicteric. - HENT: Moist mucous membranes. NG tube in-situ - LUNGS: Clear to auscultation bilateral ly, no wheezing, rhonchi, or rales. - CARDIOVASCULAR: Regular rate and rhyth m. No murmur. No JVD. - ABDOMEN: Soft, non-tender and non-dist ended. No palpable masses. - EXTREMITIES: No edema. Peripheral puls es 2+. Non-tender. - NEUROLOGIC: No focal neurological defi cits. CN II-XII grossly intact. - PSYCHIATRIC: Awake, Alert and oriented x 3. Appropriate mood and affect. - SKIN: No rashes or lesions. Warm. - LYMPH: No cervical lymphadenopathy. Objective Data Vital Signs Vital Signs: Vital Signs - 24 hr 08/23/24 10:00 08/23/24 10:00 08/23/24 12:00 Temperature Pulse Rate 94 89 Respiratory Rate Blood Pressure 132/72 Pulse Oximetry 94 Oxygen Delivery Nasal Cannula Oxygen Flow Rate 2 08/23/24 12:00 08/23/24 12:00 08/23/24 12:00 Temperature 97.3 F L Pulse Rate 86 96 86 Respiratory Rate 20 Blood Pressure 134/76 134/76 Pulse Oximetry 94 Oxygen Delivery Oxygen Flow Rate 08/23/24 13:33 08/23/24 14:00 08/23/24 16:00 Temperature 98.5 F Pulse Rate 86 90 77 Respiratory Rate 20 Blood Pressure 134/76 123/74 Pulse Oximetry 95 Oxygen Delivery Oxygen Flow Rate 08/23/24 16:00 08/23/24 16:00 08/23/24 18:00 Temperature Pulse Rate 100 82 Respiratory Rate Blood Pressure Pulse Oximetry 94 Oxygen Delivery Nasal Cannula Oxygen Flow Rate 2 08/23/24 20:00 08/23/24 20:00 08/23/24 20:00 Temperature 98.3 F Pulse Rate 106 H 93 Respiratory Rate 17 Blood Pressure 151/91 H Pulse Oximetry 94 94 Oxygen Delivery Nasal Cannula Oxygen Flow Rate 2 08/23/24 22:00 08/23/24 23:41 08/23/24 23:54 Temperature 97.8 F Pulse Rate 85 92 Respiratory Rate 18 Blood Pressure 131/62 Pulse Oximetry 91 90 Oxygen Delivery Nasal Cannula Oxygen Flow Rate 2 08/24/24 00:00 08/24/24 02:00 08/24/24 04:00 Temperature Pulse Rate 90 102 H Respiratory Rate Blood Pressure Pulse Oximetry 90 Oxygen Delivery Nasal Cannula Oxygen Flow Rate 2 08/24/24 04:00 08/24/24 04:00 08/24/24 06:00 Temperature 98.0 F Pulse Rate 96 98 110 H Respiratory Rate 18 Blood Pressure 140/81 Pulse Oximetry 91 Oxygen Delivery Oxygen Flow Rate 08/24/24 07:42 Temperature 97.7 F Pulse Rate 104 H Respiratory Rate 20 Blood Pressure 129/72 Pulse Oximetry 93 Oxygen Delivery Oxygen Flow Rate Intake/Output Intake/Output: Intake & Output 08/22/24 08/22/24 08/23/24 08/24/24 00:59 23:59 23:59 23:59 Intake Total 1000 1699.6 1018.3 Output Total 1850 300 Balance 1000 -150.4 718.3 Meds/Results Medications: Active Medications Generic Name Dose Route Start Last Admin Trade Name Freq PRN Reason Stop Dose Admin Acetaminophen 650 mg 08/23/24 00:33 Acetaminophen 650 Mg Suppository RECTAL Q6H PRN Mild Pain (1-3) or Fever Acetaminophen 650 mg 08/23/24 00:37 Acetaminophen 325 Mg Tablet PO Q4H PRN Mild Pain (1-3) or Fever Albuterol 2 puff 08/23/24 02:18 Albuterol Sulfate (*Sp) Aerosol 1 Puff INHALATION Q6HRT PRN shortness of breath or wheezing Dextrose 12.5 gm 08/23/24 00:33 Dextrose 50% 25 Gm/50 Ml Syringe IV PUSH PRN PRN Hypoglycemia Protocol Furosemide 40 mg 08/23/24 09:00 08/24/24 08:54 Furosemide Inj 40 Mg/4 Ml Vial IV PUSH 40 mg Q12HR REJI Administration Glucagon 1 mg 08/23/24 00:33 Glucagon For Inj 1 Mg Vial IM PRN PRN Hypoglycemia Protocol Glucose 15 gm 08/23/24 00:33 Glucose Oral Gel 15 Gm Of Glucse In 37.5 Gm Tube PO PRN PRN Hypoglycemia Protocol Hydromorphone HCl 0.3 mg 08/23/24 09:22 08/23/24 09:51 Hydromorphone Hcl Inj (*Crx) 1 Mg/Ml Syr IV PUSH 0.3 mg Q4HR PRN Administration Pain Rated 7-10 Dextrose 1,000 mls @ 100 mls/hr 08/23/24 00:33 Dextrose 5% 1,000 Ml IVPB PRN PRN Hypoglycemia Protocol Dextrose/Sodium Chloride 1,000 mls @ 50 mls/hr 08/23/24 00:40 08/24/24 08:56 Dextrose 5% Sodium Chloride 0.45% IV CONT 50 mls/hr .Q20H REJI Administration Piperacillin/Tazobactam/Dextrose 3.375 gm in 50 mls @ 100 mls/hr 08/23/24 13:0 0 08/24/24 05:21 Zosyn 3.375 Gm/Ns 50 Ml IVPB 100 mls/hr Q6HR REJI Administration Potassium Chloride 100 mls @ 50 mls/hr 08/24/24 09:30 Kcl 20 Meq/Sw 100 Ml IVPB 08/24/24 11:29 ONCE ONE Morphine Sulfate 2 mg 08/23/24 00:33 Morphine Sulfate (*Crx) 2 Mg/Ml Inj IV PUSH Q2H PRN Pain Rated 7-10 Ondansetron HCl 4 mg 08/23/24 00:33 Ondansetron Inj 4 Mg/2 Ml Vial IV PUSH Q4H PRN Nausea Perflutren Lipid Microsphere 0 ml 08/23/24 01:47 Perflutren Lipid Microspheres 1.5 Ml Vial Diluted To 10 Ml Total Volume IV PUSH 08/26/24 01:47 ONCE PRN adequate visualization Protocol Potassium Chloride 40 meq 08/24/24 12:00 08/24/24 08:54 Potassium Chloride 20 Meq Packet (For Liquid) PO 08/24/24 12:01 40 meq ONCE ONE Administration Radiology Results: ITS Impressions Chest X-Ray 08/22/24 22:45 IMPRESSION: Pulmonary opacities may represent edema, probably with a component of atelectasis. Infection not excluded. Trace left effusion. Chest/Abdomen/Pelvis CTA 08/22/24 22:59 IMPRESSION: Subsegmental lingular consolidation suspicious for pneumonia or aspiration. Segmental and subsegmental left lower lobe pulmonary arteries not adequately assessed due to motion. No pulmonary embolus detected in the adequately visualized pulmonary arteries. Moderate bilateral pleural effusions. Asymmetric right gynecomastia, consider nonemergent mammography and breast ultrasound. Multiple splenic hypodensities, presumably related to cysts or hemangiomas. Infection or metastatic disease considered less likely. Bilateral indeterminate renal lesions, recommend nonemergent MRI or CT with and without contrast for further characterization. Small bowel obstruction, transition point at a moderate sized umbilical hernia that contains a loop of small bowel. Mild ascites. Abdomen X-Ray 08/23/24 05:36 Impression: NG tube in satisfactory position. Probable small bowel obstruction. Labs Labs: Laboratory Results - last 24 hr 08/23/24 08/23/24 08/23/24 10:32 11:49 16:29 WBC 15.3 H RBC 5.51 Hgb 15.1 Hct 47.8 MCV 86.8 MCH 27.4 MCHC 31.6 L RDW 13.9 Plt Count 278 MPV 10.2 Immature Gran % (Auto) 0.4 Neut % (Auto) 69.7 Lymph % (Auto) 18.7 Steele % (Auto) 10.4 H Eos % (Auto) 0.4 Baso % (Auto) 0.4 Lymph # (Auto) 2.86 Steele # (Auto) 1.6 H Eos # (Auto) 0.1 Baso # (Auto) 0.1 Abs Immat Gran (auto) 0.06 H Absolute Neuts (auto) 10.7 H Absolute Nucleated RBC 0.000 Nucleated RBC % 0.0 Sodium 138 Potassium 3.1 L Chloride 97 L Carbon Dioxide 31 H Anion Gap 10 BUN 17 Creatinine 0.74 Estim Creat Clear Calc 67 Estimated GFR > 60 Glucose 125 H POC Capillary Glucose 124 H 110 H Calcium 7.9 L Phosphorus 3.8 Magnesium 1.8 Total Bilirubin AST ALT Alkaline Phosphatase Total Protein Albumin Lipase 08/24/24 08/24/24 08/24/24 00:38 03:50 06:05 WBC 13.1 H RBC 5.34 Hgb 14.7 Hct 46.3 MCV 86.7 MCH 27.5 MCHC 31.7 L RDW 13.8 Plt Count 242 MPV 10.1 Immature Gran % (Auto) 0.4 Neut % (Auto) 64.7 Lymph % (Auto) 23.0 Steele % (Auto) 9.7 H Eos % (Auto) 1.7 Baso % (Auto) 0.5 Lymph # (Auto) 3.00 Steele # (Auto) 1.3 H Eos # (Auto) 0.2 Baso # (Auto) 0.1 Abs Immat Gran (auto) 0.05 H Absolute Neuts (auto) 8.4 H Absolute Nucleated RBC 0.000 Nucleated RBC % 0.0 Sodium 137 Potassium 2.6 L* Chloride 96 L Carbon Dioxide 31 H Anion Gap 10 BUN 13 Creatinine 0.68 L Estim Creat Clear Calc 73 Estimated GFR > 60 Glucose 98 POC Capillary Glucose 112 H 108 H Calcium 7.8 L Phosphorus Magnesium Total Bilirubin 1.1 AST 26 ALT 15 Alkaline Phosphatase 48 Total Protein 6.0 L Albumin 3.3 L Lipase 851 H 08/24/24 07:54 WBC RBC Hgb Hct MCV MCH MCHC RDW Plt Count MPV Immature Gran % (Auto) Neut % (Auto) Lymph % (Auto) Steele % (Auto) Eos % (Auto) Baso % (Auto) Lymph # (Auto) Steele # (Auto) Eos # (Auto) Baso # (Auto) Abs Immat Gran (auto) Absolute Neuts (auto) Absolute Nucleated RBC Nucleated RBC % Sodium Potassium Chloride Carbon Dioxide Anion Gap BUN Creatinine Estim Creat Clear Calc Estimated GFR Glucose POC Capillary Glucose 109 H Calcium Phosphorus Magnesium Total Bilirubin AST ALT Alkaline Phosphatase Total Protein Albumin Lipase
[2024-08-24] MEDS: KCL 20 MEQ/SW 100 ML 100 ML 50 MEQ IVPB (09:39)
[2024-08-24 09:48] LABS: Basophils Absolute Auto 0.1 K/mm3 (0.0-0.1); Basophils Percent Auto 0.6 % (0.2-1.2); Eosinophils Absolute Auto 0.3 K/mm3 (0-0.3); Eosinophils Percent Auto 2.3 % (0-4.4); Hematocrit 50.6 % (42.0-52.0); Immature Granulocyte Absolute 0.04 K/mm3 (0.00-0.031); Immature Granulocyte Percent A 0.3 % (0-0.5); Lymphocytes Absolute Auto 3.48 K/mm3 (0.9-3.2); Lymphocytes Percent Auto 24.4 % (18.3-44.2); Mean Corpuscular HGB Conc 31.6 g/dl (32-36); Mean Corpuscular Hemoglobin 27.7 pg (26-34); Mean Corpuscular Volume 87.5 fl (80-100); Monocytes Absolute Auto 1.2 K/mm3 (0.1-0.6); Monocytes Percent Auto 8.4 % (2.6-8.5); Neutrophils Absolute Auto 9.1 K/mm3 (1.3-6.7); Platelet Count Result 295 k/mm3 (150-375); Red Blood Count 5.78 M/mm3 (4.6-6.20); Red Cell Distribution Width 13.9 % (11.5-14.5); White Blood Count 14.2 K/mm3 (4.5-10.0)
[2024-08-24 10:03] LABS: Anion Gap 8 mmol/L (4-12); Blood Urea Nitrogen 14 mg/dL (9-20); Calcium 8.5 mg/dL (8.4-10.2); Carbon Dioxide 36 mmol/L (22-30); Chloride 95 mmol/L (98-107); Estimated CRCL calculation 64 ml/min; Estimated Glomerular Filt Rate > 60; Glucose 104 mg/dL (65-110); Magnesium 1.9 mg/dL (1.6-2.3); Phosphorus 3.5 mg/dL (2.5-4.5); Potassium 3.9 mmol/L (3.4-5.0); Sodium 139 mmol/L (137-145)
[2024-08-24] MEDS: AZITHROMYCIN 500 MG/NS 250 ML 500 MG/250 ML BAG 250 MG IVPB (10:08)
--- NOTE | 2024-08-24 10:14 | P.PNCA_ITS ---
Progress Note: A&P Assessment and Plan (1) Acute exacerbation of CHF (congestive heart failure): Qualifiers: Heart failure type: unspecified Qualified Code(s): I50.9 - Heart failure, unspecified Code(s): I50.9 - Heart failure, unspecified Status: Acute Plan 1. Acute on chronic CHF. Reported history of systolic and diastolic heart failure per prior records. Unclear what his LVEF has been in the past. Do not have [facility]. TTE with LVEF 40-45%. 2. Elevated troponins. Not an acute coronary syndrome. 3. Mild non-obstructive CAD per coronary CTA 07/2023 4. Small bowel obstruction 5. Alcoholic cirrhosis 6. Hypertension 7. Hyperlipidemia 8. Right bundle branch block 9. Substance use PLAN: -E[facility] from [facility] from 08/15 was personally reviewed, shows wandering atrial pacemaker but NO AFIB. EKGs and tele here with sinus rhythm with frequent PACs, but NO atrial fibrillation. Diltiazem drip stopped. Will start Metoprolol 50mg BID. Transition to Metoprolol succinate prior to discharge given HFmrEF. -Regarding HFmrEF, starting Metoprolol (transition to succinate prior to discharge). Will change IV Lasix to PO. Can further optimize his heart failure GDMT after surgery. -Given mild NOCAD, recommend ASA and high intensity statin. -Management of small bowel obstruction as per General Surgery -[facility] records mention patient has alcoholic cirrhosis, which would explain the ascites, gynecomastia seen on CT imaging. Management as per primary team. Subjective Date/time seen: 08/24/24 10:14 Interval history: Reason for visit: CHF HPI: We are consulted for atrial fibrillation. Js is a 74 year old male with a reported history of alcoholic cirrhosis, chronic combined systolic and diastolic heart failure, hypertension, hyperlipidemia, right bundle branch block, reported AFIB, cannabis use, histoplasmosis who presented to [facility] due to abdominal pain, vomiting, weakness. Thought to be in AFIB in the ED, started on Diltiazem drip. Left AMA from [place] and came over to [facility]. Workup here shows troponins of 0.057, 0.058, 0.058. NT pro BNP 7570. Chest/Abdomen/Pelvis CTA with possible pneumonia, no PE, moderate bilateral pleural effusions, asymmetric right gynecomastia, small bowel obstruction, mild ascites. EKG here with sinus rhythm with PACs. Date of service 08/24: Tele with sinus rhythm with frequent PACs. He reports feeling better. Denies any shortness of breath. Scheduled for surgery today. Review of Systems Review of Systems: All systems reviewed & are unremarkable except as noted in HPI and below Gastrointestinal: Gastrointestinal: Reports as per HPI Exam Const: General: no acute distress HENMT: Mouth: Yes moist mucous membranes Eyes: General: appearance normal, both eyes and all related structures Sclera: sclerae normal Resp: Effort & Inspection: normal respiratory effort Cardio: Rate: regular rate Rhythm: regular rhythm and abnormal rhythm with ectopic beats Neuro: Speech: normal speech Psych: Mental Status: mental status grossly normal Affect: normal affect Objective Data Vital Signs Vital Signs: Vital Signs - 24 hr 08/23/24 12:00 08/23/24 12:00 08/23/24 12:00 Temperature Pulse Rate 86 96 Respiratory Rate Blood Pressure 134/76 Pulse Oximetry 94 Oxygen Delivery Nasal Cannula Oxygen Flow Rate 2 08/23/24 12:00 08/23/24 13:33 08/23/24 14:00 Temperature 36.3 C L Pulse Rate 86 86 90 Respiratory Rate 20 Blood Pressure 134/76 134/76 Pulse Oximetry 94 Oxygen Delivery Oxygen Flow Rate 08/23/24 16:00 08/23/24 16:00 08/23/24 16:00 Temperature 36.9 C Pulse Rate 77 100 Respiratory Rate 20 Blood Pressure 123/74 Pulse Oximetry 95 94 Oxygen Delivery Nasal Cannula Oxygen Flow Rate 2 08/23/24 18:00 08/23/24 20:00 08/23/24 20:00 Temperature 36.8 C Pulse Rate 82 106 H Respiratory Rate 17 Blood Pressure 151/91 H Pulse Oximetry 94 94 Oxygen Delivery Nasal Cannula Oxygen Flow Rate 2 08/23/24 20:00 08/23/24 22:00 08/23/24 23:41 Temperature Pulse Rate 93 85 Respiratory Rate Blood Pressure Pulse Oximetry 91 Oxygen Delivery Nasal Cannula Oxygen Flow Rate 2 08/23/24 23:54 08/24/24 00:00 08/24/24 02:00 Temperature 36.6 C Pulse Rate 92 90 102 H Respiratory Rate 18 Blood Pressure 131/62 Pulse Oximetry 90 Oxygen Delivery Oxygen Flow Rate 08/24/24 04:00 08/24/24 04:00 08/24/24 04:00 Temperature 36.7 C Pulse Rate 96 98 Respiratory Rate 18 Blood Pressure 140/81 Pulse Oximetry 90 91 Oxygen Delivery Nasal Cannula Oxygen Flow Rate 2 08/24/24 06:00 08/24/24 07:42 Temperature 36.5 C Pulse Rate 110 H 104 H Respiratory Rate 20 Blood Pressure 129/72 Pulse Oximetry 93 Oxygen Delivery Oxygen Flow Rate Intake/Output Intake/Output: Intake & Output 08/22/24 08/22/24 08/23/24 08/24/24 00:59 23:59 23:59 23:59 Intake Total 1000 1699.6 1018.3 Output Total 1850 300 Balance 1000 -150.4 718.3 Meds/Results Medications: Active Medications Generic Name Dose Route Start Last Admin Trade Name Freq PRN Reason Stop Dose Admin Acetaminophen 650 mg 08/23/24 00:33 Acetaminophen 650 Mg Suppository RECTAL Q6H PRN Mild Pain (1-3) or Fever Acetaminophen 650 mg 08/23/24 00:37 Acetaminophen 325 Mg Tablet PO Q4H PRN Mild Pain (1-3) or Fever Albuterol 2 puff 08/23/24 02:18 Albuterol Sulfate (*Sp) Aerosol 1 Puff INHALATION Q6HRT PRN shortness of breath or wheezing Dextrose 12.5 gm 08/23/24 00:33 Dextrose 50% 25 Gm/50 Ml Syringe IV PUSH PRN PRN Hypoglycemia Protocol Glucagon 1 mg 08/23/24 00:33 Glucagon For Inj 1 Mg Vial IM PRN PRN Hypoglycemia Protocol Glucose 15 gm 08/23/24 00:33 Glucose Oral Gel 15 Gm Of Glucse In 37.5 Gm Tube PO PRN PRN Hypoglycemia Protocol Hydromorphone HCl 0.3 mg 08/23/24 09:22 08/23/24 09:51 Hydromorphone Hcl Inj (*Crx) 1 Mg/Ml Syr IV PUSH 0.3 mg Q4HR PRN Administration Pain Rated 7-10 Dextrose 1,000 mls @ 100 mls/hr 08/23/24 00:33 Dextrose 5% 1,000 Ml IVPB PRN PRN Hypoglycemia Protocol Dextrose/Sodium Chloride 1,000 mls @ 50 mls/hr 08/23/24 00:40 08/24/24 08:56 Dextrose 5% Sodium Chloride 0.45% IV CONT 50 mls/hr .Q20H REJI Administration Piperacillin/Tazobactam/Dextrose 3.375 gm in 50 mls @ 100 mls/hr 08/23/24 13:00 08/24/24 05:21 Zosyn 3.375 Gm/Ns 50 Ml IVPB 100 mls/hr Q6HR REJI Administration Potassium Chloride 100 mls @ 50 mls/hr 08/24/24 09:30 08/24/24 09:39 Kcl 20 Meq/Sw 100 Ml IVPB 08/24/24 11:29 50 mls/hr ONCE ONE Administration Potassium Chloride 40 meq/ 520 mls @ 130 mls/hr 08/24/24 15:23 Sodium Chloride IVPB 08/24/24 19:22 ONCE ONE Azithromycin 500 mg in 250 mls @ 250 mls/hr 08/24/24 09:00 08/24/24 10:08 Zithromax IVPB 250 mls/hr Q24H REJI Administration Metoprolol Tartrate 50 mg 08/24/24 10:15 Metoprolol Tartrate 50 Mg Tab PO Q12HR REJI Morphine Sulfate 2 mg 08/23/24 00:33 Morphine Sulfate (*Crx) 2 Mg/Ml Inj IV PUSH Q2H PRN Pain Rated 7-10 Ondansetron HCl 4 mg 08/23/24 00:33 Ondansetron Inj 4 Mg/2 Ml Vial IV PUSH Q4H PRN Nausea Perflutren Lipid Microsphere 0 ml 08/23/24 01:47 Perflutren Lipid Microspheres 1.5 Ml Vial Diluted To 10 Ml Total Volume IV PUSH 08/26/24 01:47 ONCE PRN adequate visualization Protocol Potassium Chloride 40 meq 08/24/24 12:00 08/24/24 08:54 Potassium Chloride 20 Meq Packet (For Liquid) PO 08/24/24 12:01 40 meq ONCE ONE Administration Radiology Results: ITS Impressions Chest X-Ray 08/22/24 22:45 IMPRESSION: Pulmonary opacities may represent edema, probably with a component of atelectasis. Infection not excluded. Trace left effusion. Chest/Abdomen/Pelvis CTA 08/22/24 22:59 IMPRESSION: Subsegmental lingular consolidation suspicious for pneumonia or aspiration. Segmental and subsegmental left lower lobe pulmonary arteries not adequately assessed due to motion. No pulmonary embolus detected in the adequately visualized pulmonary arteries. Moderate bilateral pleural effusions. Asymmetric right gynecomastia, consider nonemergent mammography and breast ultrasound. Multiple splenic hypodensities, presumably related to cysts or hemangiomas. Infection or metastatic disease considered less likely. Bilateral indeterminate renal lesions, recommend nonemergent MRI or CT with and without contrast for further characterization. Small bowel obstruction, transition point at a moderate sized umbilical hernia that contains a loop of small bowel. Mild ascites. Abdomen X-Ray 08/23/24 05:36 Impression: NG tube in satisfactory position. Probable small bowel obstruction. Labs Labs: Laboratory Results - last 24 hr 08/23/24 08/23/24 08/23/24 10:32 11:49 16:29 WBC 15.3 H RBC 5.51 Hgb 15.1 Hct 47.8 MCV 86.8 MCH 27.4 MCHC 31.6 L RDW 13.9 Plt Count 278 MPV 10.2 Immature Gran % (Auto) 0.4 Neut % (Auto) 69.7 Lymph % (Auto) 18.7 [place] % (Auto) 10.4 H Eos % (Auto) 0.4 Baso % (Auto) 0.4 Lymph # (Auto) 2.86 [place] # (Auto) 1.6 H Eos # (Auto) 0.1 Baso # (Auto) 0.1 Abs Immat Gran (auto) 0.06 H Absolute Neuts (auto) 10.7 H Absolute Nucleated RBC 0.000 Nucleated RBC % 0.0 Sodium 138 Potassium 3.1 L Chloride 97 L Carbon Dioxide 31 H Anion Gap 10 BUN 17 Creatinine 0.74 Estim Creat Clear Calc 67 Estimated GFR > 60 Glucose 125 H POC Capillary Glucose 124 H 110 H Calcium 7.9 L Phosphorus 3.8 Magnesium 1.8 Total Bilirubin AST ALT Alkaline Phosphatase Total Protein Albumin Lipase 08/24/24 08/24/24 08/24/24 00:38 03:50 06:05 WBC 13.1 H RBC 5.34 Hgb 14.7 Hct 46.3 MCV 86.7 MCH 27.5 MCHC 31.7 L RDW 13.8 Plt Count 242 MPV 10.1 Immature Gran % (Auto) 0.4 Neut % (Auto) 64.7 Lymph % (Auto) 23.0 [place] % (Auto) 9.7 H Eos % (Auto) 1.7 Baso % (Auto) 0.5 Lymph # (Auto) 3.00 [place] # (Auto) 1.3 H Eos # (Auto) 0.2 Baso # (Auto) 0.1 Abs Immat Gran (auto) 0.05 H Absolute Neuts (auto) 8.4 H Absolute Nucleated RBC 0.000 Nucleated RBC % 0.0 Sodium 137 Potassium 2.6 L* Chloride 96 L Carbon Dioxide 31 H Anion Gap 10 BUN 13 Creatinine 0.68 L Estim Creat Clear Calc 73 Estimated GFR > 60 Glucose 98 POC Capillary Glucose 112 H 108 H Calcium 7.8 L Phosphorus Magnesium Total Bilirubin 1.1 AST 26 ALT 15 Alkaline Phosphatase 48 Total Protein 6.0 L Albumin 3.3 L Lipase 851 H 08/24/24 08/24/24 07:54 09:39 WBC 14.2 H RBC 5.78 Hgb 16.0 Hct 50.6 MCV 87.5 MCH 27.7 MCHC 31.6 L RDW 13.9 Plt Count 295 MPV 10.0 Immature Gran % (Auto) 0.3 Neut % (Auto) 64.0 Lymph % (Auto) 24.4 [place] % (Auto) 8.4 Eos % (Auto) 2.3 Baso % (Auto) 0.6 Lymph # (Auto) 3.48 H [place] # (Auto) 1.2 H Eos # (Auto) 0.3 Baso # (Auto) 0.1 Abs Immat Gran (auto) 0.04 H Absolute Neuts (auto) 9.1 H Absolute Nucleated RBC 0.000 Nucleated RBC % 0.0 Sodium 139 Potassium 3.9 Chloride 95 L Carbon Dioxide 36 H Anion Gap 8 BUN 14 Creatinine 0.78 Estim Creat Clear Calc 64 Estimated GFR > 60 Glucose 104 POC Capillary Glucose 109 H Calcium 8.5 Phosphorus 3.5 Magnesium 1.9 Total Bilirubin AST ALT Alkaline Phosphatase Total Protein Albumin Lipase
--- NOTE | 2024-08-24 10:30 | PC.NURSE ---
taken down to surgery
--- NOTE | 2024-08-24 10:51 | WPDANESEPPF ---
Anes - Initial Pre Proc Eval Procedure: Operation Date: 08/24/24 12:00 Proposed Procedures p Robotic Assisted Incarcerated Umbilical Hernia Repair with Mesh - Joaquina Lewis MD Date/Time: 08/24/24 10:51 Surgeon: Crystal Verdin MD Pre Op Diagnosis: Afib w RVR, Acute CHF, Elev trop, SBO, Umbilical h Patient Data Age: 74 Gender: M Height: 1.68 m Weight: 74.1 kg Last Vital Signs Temp 36.5 C 08/24/24 07:42 Pulse 104 H 08/24/24 07:42 Resp 20 08/24/24 07:42 BP 129/72 08/24/24 07:42 Pulse Ox 93 08/24/24 07:42 O2 Del Method Nasal Cannula 08/24/24 04:00 O2 Flow Rate 2 08/24/24 04:00 Allergies Allergy/AdvReac Type Severity Reaction Status Date / Time No Known Drug Allergies Allergy Other Verified 08/22/24 19:52 Home Medications ?Medication ?Instructions ?Recorded ?Confirmed ?Type albuterol sulfate 90 mcg/actuation 2 puff inhalation Q6H PRN 08/23/24 08/23/24 History aerosol inhaler shortness of breath or wheezing aspirin 81 mg chewable tablet 81 mg PO DAILY 08/23/24 08/23/24 History carvedilol 6.25 mg tablet 6.25 mg PO BID 08/23/24 08/23/24 History cholecalciferol (vitamin D3) 50 2,000 unit PO DAILY 08/23/24 08/23/24 History mcg (2,000 unit) capsule rosuvastatin 20 mg tablet (Crestor) 10 mg PO HS 08/23/24 08/23/24 History Laboratory Tests 08/23/24 08/23/24 08/23/24 10:32 11:49 16:29 WBC 15.3 H K/mm3 (4.5-10.0) RBC 5.51 M/mm3 (4.6-6.20) Hgb 15.1 g/dL (14.0-18.0) Hct 47.8 % (42.0-52.0) MCV 86.8 fl (80-100) MCH 27.4 pg (26-34) MCHC 31.6 L g/dl (32-36) RDW 13.9 % (11.5-14.5) Plt Count 278 k/mm3 (150-375) MPV 10.2 fl (7.4-10.4) Immature Gran % (Auto) 0.4 % (0-0.5) Neut % (Auto) 69.7 % (45.5-73.1) Lymph % (Auto) 18.7 % (18.3-44.2) Orange % (Auto) 10.4 H % (2.6-8.5) Eos % (Auto) 0.4 % (0-4.4) Baso % (Auto) 0.4 % (0.2-1.2) Lymph # (Auto) 2.86 K/mm3 (0.9-3.2) Orange # (Auto) 1.6 H K/mm3 (0.1-0.6) Eos # (Auto) 0.1 K/mm3 (0-0.3) Baso # (Auto) 0.1 K/mm3 (0.0-0.1) Abs Immat Gran (auto) 0.06 H K/mm3 (0.00-0.031) Absolute Neuts (auto) 10.7 H K/mm3 (1.3-6.7) Absolute Nucleated RBC 0.000 K/mm3 (0.0-0.012) Nucleated RBC % 0.0 % (0.0-0.2) Sodium 138 mmol/L (137-145) Potassium 3.1 L mmol/L (3.4-5.0) Chloride 97 L mmol/L (98-107) Carbon Dioxide 31 H mmol/L (22-30) Anion Gap 10 mmol/L (4-12) BUN 17 mg/dL (9-20) Creatinine 0.74 mg/dL (0.7-1.3) Estim Creat Clear Calc 67 ml/min Estimated GFR > 60 (59 - ) Glucose 125 H mg/dL (65-110) POC Capillary Glucose 124 H mg/dl 110 H mg/dl (65-105) (65-105) Calcium 7.9 L mg/dL (8.4-10.2) Phosphorus 3.8 mg/dL (2.5-4.5) Magnesium 1.8 mg/dL (1.6-2.3) Total Bilirubin AST ALT Alkaline Phosphatase Total Protein Albumin Lipase 08/24/24 08/24/24 08/24/24 00:38 03:50 06:05 WBC 13.1 H K/mm3 (4.5-10.0) RBC 5.34 M/mm3 (4.6-6.20) Hgb 14.7 g/dL (14.0-18.0) Hct 46.3 % (42.0-52.0) MCV 86.7 fl (80-100) MCH 27.5 pg (26-34) MCHC 31.7 L g/dl (32-36) RDW 13.8 % (11.5-14.5) Plt Count 242 k/mm3 (150-375) MPV 10.1 fl (7.4-10.4) Immature Gran % (Auto) 0.4 % (0-0.5) Neut % (Auto) 64.7 % (45.5-73.1) Lymph % (Auto) 23.0 % (18.3-44.2) Orange % (Auto) 9.7 H % (2.6-8.5) Eos % (Auto) 1.7 % (0-4.4) Baso % (Auto) 0.5 % (0.2-1.2) Lymph # (Auto) 3.00 K/mm3 (0.9-3.2) Orange # (Auto) 1.3 H K/mm3 (0.1-0.6) Eos # (Auto) 0.2 K/mm3 (0-0.3) Baso # (Auto) 0.1 K/mm3 (0.0-0.1) Abs Immat Gran (auto) 0.05 H K/mm3 (0.00-0.031) Absolute Neuts (auto) 8.4 H K/mm3 (1.3-6.7) Absolute Nucleated RBC 0.000 K/mm3 (0.0-0.012) Nucleated RBC % 0.0 % (0.0-0.2) Sodium 137 mmol/L (137-145) Potassium 2.6 L* mmol/L (3.4-5.0) Chloride 96 L mmol/L (98-107) Carbon Dioxide 31 H mmol/L (22-30) Anion Gap 10 mmol/L (4-12) BUN 13 mg/dL (9-20) Creatinine 0.68 L mg/dL (0.7-1.3) Estim Creat Clear Calc 73 ml/min Estimated GFR > 60 (59 - ) Glucose 98 mg/dL (65-110) POC Capillary Glucose 112 H mg/dl 108 H mg/dl (65-105) (65-105) Calcium 7.8 L mg/dL (8.4-10.2) Phosphorus Magnesium Total Bilirubin 1.1 mg/dL (0.2-1.3) AST 26 U/L (17-59) ALT 15 U/L (6-50) Alkaline Phosphatase 48 U/L (38-126) Total Protein 6.0 L g/dL (6.3-8.2) Albumin 3.3 L g/dL (3.5-5.1) Lipase 851 H U/L (23-300) 08/24/24 08/24/24 07:54 09:39 WBC 14.2 H K/mm3 (4.5-10.0) RBC 5.78 M/mm3 (4.6-6.20) Hgb 16.0 g/dL (14.0-18.0) Hct 50.6 % (42.0-52.0) MCV 87.5 fl (80-100) MCH 27.7 pg (26-34) MCHC 31.6 L g/dl (32-36) RDW 13.9 % (11.5-14.5) Plt Count 295 k/mm3 (150-375) MPV 10.0 fl (7.4-10.4) Immature Gran % (Auto) 0.3 % (0-0.5) Neut % (Auto) 64.0 % (45.5-73.1) Lymph % (Auto) 24.4 % (18.3-44.2) Orange % (Auto) 8.4 % (2.6-8.5) Eos % (Auto) 2.3 % (0-4.4) Baso % (Auto) 0.6 % (0.2-1.2) Lymph # (Auto) 3.48 H K/mm3 (0.9-3.2) Orange # (Auto) 1.2 H K/mm3 (0.1-0.6) Eos # (Auto) 0.3 K/mm3 (0-0.3) Baso # (Auto) 0.1 K/mm3 (0.0-0.1) Abs Immat Gran (auto) 0.04 H K/mm3 (0.00-0.031) Absolute Neuts (auto) 9.1 H K/mm3 (1.3-6.7) Absolute Nucleated RBC 0.000 K/mm3 (0.0-0.012) Nucleated RBC % 0.0 % (0.0-0.2) Sodium 139 mmol/L (137-145) Potassium 3.9 mmol/L (3.4-5.0) Chloride 95 L mmol/L (98-107) Carbon Dioxide 36 H mmol/L (22-30) Anion Gap 8 mmol/L (4-12) BUN 14 mg/dL (9-20) Creatinine 0.78 mg/dL (0.7-1.3) Estim Creat Clear Calc 64 ml/min Estimated GFR > 60 (59 - ) Glucose 104 mg/dL (65-110) POC Capillary Glucose 109 H mg/dl (65-105) Calcium 8.5 mg/dL (8.4-10.2) Phosphorus 3.5 mg/dL (2.5-4.5) Magnesium 1.9 mg/dL (1.6-2.3) Total Bilirubin AST ALT Alkaline Phosphatase Total Protein Albumin Lipase Patient hx anesthesia problems: none Family hx anesthesia problems: none Results Review: All pre-operative results and documents have been reviewed as part of the pre-operative evaluation. [facility] Past Medical History Medical History Hypertension Hyperlipidemia Vitamin D deficiency Substance abuse Atrial fibrillation Congestive heart failure Surgical History Surgical History H/O hemorrhoidectomy History of appendectomy History of carpal tunnel release Social History Social History Smoking status: Never smoker Alcohol intake: never Substance use: current Substance use type: marijuana and crack/cocaine Other substance usage details: once in while Do You Feel Safe in your Home?: Yes Lack of Transportation: No Lack of Food: Never True Current Housing: I Have Housing Concerned About Future Housing: No Difficulty Paying Gas/Electric Bills: No Difficulty Paying for Meds: No Currently Unemployed: No Education: High School Diploma/GED Difficulty w/ Childcare or Family Care: No Spiritual care concerns: No Anes - Eval Final PreProcedure Day of Procedure 08/24/24 10:51 Patient weight: overweight Heart: regular rate and rhythm Lungs: decreased breath sounds Airway: Mallampati scale class II Neurological: alert and oriented Last oral intake: >/= 8 hours ASA classification: III Emergent: no Anesthetic plan: proceed Anesthesia type and monitoring: general ETT and standard monitoring Results Review: All pre-operative results and documents have been reviewed as part of the pre-operative evaluation. Informed Consent: The patient's anesthetic plan and its attendant risks and benefits were discussed with the patient/family/POA. Questions were solicited and answers provided to the satisfaction of the patient/family/POA.
[2024-08-24 11:02] LABS: Glucose Point of Care 93 mg/dl (65-105)
[2024-08-24] MEDS: LACTATED RINGERS 1,000 ML 30 ML IV CONT (11:02)
--- NOTE | 2024-08-24 11:58 | WPDHPUPDATE1 ---
History and Physical Update Update Date/Time: 08/24/24 11:58 History and Physical has been reviewed, including an updated exam of the patient. There are NO changes in the patient's condition. Risks, benefits, and alternatives have been discussed and questions answered. Patient agrees to proceed with procedure.
[2024-08-24] MEDS: BUPIVACAINE/EPINEPHRINE 0.5% 10 ML VIAL 30 ML INFILTRATE (12:41)
--- NOTE | 2024-08-24 14:35 | W.PM.PROC2 ---
Procedure Note - Detailed Date of Procedure 08/24/24 Pre-op Diagnosis Incarcerated umbilical hernia measuring 5 cm with resultant small bowel obstruction Post-op Diagnosis Same Procedure Performed robotic assisted repair incarcerated umbilical hernia measuring 4.5 cm, myofascial release x2 Surgeon Joaquina Lewis MD [employer] [place] Anesthesia General and Local Indications 74-year-old male presenting to the hospital with severe abdominal pain, intractable nausea and vomiting. Workup, including imaging, significant for incarcerated umbilical hernia with resultant small bowel obstruction. Findings Incarcerated umbilical hernia with defect measuring approximately 4.5 cm, loop of small intestine within hernia that was viable after reduction Description of Procedure The patient was taken to the operating room and placed in the supine position. After adequate induction of general anesthesia, the patient was prepped and draped in the normal sterile fashion. A time-out was then done to verify the patient's identity, as well as the procedure being performed. I began by placing a 5 mm port in the left upper quadrant, this was done via the Optiview trocar under direct visualization. Once in the intra-abdominal cavity, the abdomen was insufflated with CO2 gas. After adequate pneumoperitoneum was achieved, the camera was placed into this trocar site and the abdomen was examined. There was noted to be an incarcerated umbilical hernia with a noted loop of small intestine incarcerated within the hernia. There was noted resultant proximal dilation of the small bowel, as well as the stomach. Under direct visualization, I placed a further 8 mm left mid abdominal port, as well as a 8 mm left lower abdominal port. I then moved the laparoscope to the lower port and replaced the initial 5 mm port with an 8 mm robotic port. I also placed a 11 mm nurse assistant port in the left upper abdomen. The patient then positioned and the robot was docked to these trocar sites. I then scrubbed out and proceeded with the surgery at the robotic console. I began by reducing the small bowel out of this hernia. This was done carefully with gentle traction and manual exterior pressure. Once the small bowel was reduced, the small bowel was thoroughly examined. There was noted to be some inflammation but the bowel was noted to be viable. At this point I measured 6 cm lateral to the hernia defect. I then gained access by making a flap into the left retro muscular space. The 1st myofascial release was started with posterior rectus sheath released off the left rectus muscle. This dissection was performed all the way to the medial edge rectus muscle, the dissection was continued from the costal margin into the space Retzius. The upper medial aspect of the posterior sheath was then incised and we entered the preperitoneal space and transitioned to the contralateral retro muscular space. This was difficult and my partner Dr. Villasenor was present and assisted with the crossover portion as well as the contralateral myofascial release. This was done in order to continue the repair and improved the medial is a momin of the anterior rectus sheath for the purpose reconstruction of the linea alba. The contralateral posterior rectus sheath was dissected and released off the right rectus muscle. This was done to the semilunaris and the neurovascular bundles were identified and preserved. The retro muscular space was dissected cranial and caudal to the hernia defect matching ipsilateral side. I then dissected the incarcerated preperitoneal fat from the umbilical hernia defect. All contents were reduced leaving a approximately 4.5 cm defect. The patient also had significant diastasis in addition to the umbilical defect. The aforementioned bilateral myofascial release allowed myofascial medial sedation for the purpose of zoroastrianism of the linea alba. I then closed the 4.5 cm defect with 0 Stratafix suture. The linea alba was using a Stratafix suture in a plicating method, effectively eliminating the diastasis. A 15 x [address] mesh was then placed in the retrorectus space. The mesh laid flat with no buckling. Once positioned it was noted to have good overlap of our hernia defect. I then closed the posterior rectus sheath flap using a 2 0 V lock suture. The 11 mm port site was closed under direct visualization using a 0 Vicryl stitch. The robot was then undocked and all ports were removed. All incisions were closed with 4-0 Monocryl subcuticular sutures. Dermabond was placed on all wounds. The patient tolerated the procedure well. He was extubated in the operating room postoperatively. He will be transferred to the recovery room in stable condition. Please note that Dr. Villasenor was present for the entirety of the procedure and was assisting during the myofascial release as well as the crossover. Implants 15 [address] mesh Estimated Blood Loss 10 Pathology None sent Complications No immediate complications Condition Stable Disposition PACU [facility] Billing Surgery - Charge Forward: Surgery Billing
[2024-08-24 14:58] LABS: Glucose Point of Care 108 mg/dl (65-105)
[2024-08-24] MEDS: POTASSIUM CHLORIDE INJ 40 MEQ in SODIUM CHLORIDE 0.9% IV 500 ML 130 MEQ IVPB (17:23)
[2024-08-24 18:46] LABS: Glucose Point of Care 98 mg/dl (65-105)
[2024-08-24] MEDS: METOPROLOL TARTRATE 50 MG TAB PO (20:17)
[2024-08-24] MEDS: ACETAMINOPHEN 325 MG TABLET 650 MG PO (20:18)
[2024-08-24 20:37] LABS: Glucose Point of Care 100 mg/dl (65-105)
[2024-08-25] VITALS (15 sets, daily range): BP systolic 102–131; BP diastolic 60–77; PULSE 52–93; RESP 18–20; TEMP 36.2–37.3; O2SAT 90–97
[2024-08-25] MEDS: ACETAMINOPHEN 325 MG TABLET 650 MG PO (02:35)
[2024-08-25 04:33] LABS: Basophils Absolute Auto 0.1 K/mm3 (0.0-0.1); Basophils Percent Auto 0.4 % (0.2-1.2); Eosinophils Absolute Auto 0.1 K/mm3 (0-0.3); Eosinophils Percent Auto 0.5 % (0-4.4); Hematocrit 42.8 % (42.0-52.0); Hemoglobin 13.5 g/dL (14.0-18.0); Immature Granulocyte Absolute 0.08 K/mm3 (0.00-0.031); Immature Granulocyte Percent A 0.4 % (0-0.5); Lymphocytes Absolute Auto 2.67 K/mm3 (0.9-3.2); Lymphocytes Percent Auto 14.4 % (18.3-44.2); Mean Corpuscular HGB Conc 31.5 g/dl (32-36); Mean Corpuscular Hemoglobin 27.8 pg (26-34); Mean Corpuscular Volume 88.1 fl (80-100); Mean Platelet Volume 10.2 fl (7.4-10.4); Monocytes Absolute Auto 1.3 K/mm3 (0.1-0.6); Monocytes Percent Auto 7.1 % (2.6-8.5); Neutrophils Absolute Auto 14.3 K/mm3 (1.3-6.7); Neutrophils Percent Auto 77.2 % (45.5-73.1); Platelet Count Result 273 k/mm3 (150-375); Red Blood Count 4.86 M/mm3 (4.6-6.20); White Blood Count 18.5 K/mm3 (4.5-10.0)
[2024-08-25 04:45] LABS: Alanine Aminotransferase 15 U/L (6-50); Albumin Level 3.4 g/dL (3.5-5.1); Alkaline Phosphatase 49 U/L (38-126); Anion Gap 11 mmol/L (4-12); Aspartate Amino Transferase 31 U/L (17-59); Blood Urea Nitrogen 21 mg/dL (9-20); Calcium 8.1 mg/dL (8.4-10.2); Carbon Dioxide 28 mmol/L (22-30); Chloride 99 mmol/L (98-107); Estimated CRCL calculation 51 ml/min; Estimated Glomerular Filt Rate > 60; Glucose 81 mg/dL (65-110); Potassium 3.4 mmol/L (3.4-5.0); Sodium 138 mmol/L (137-145)
--- NOTE | 2024-08-25 08:40 | PM.PNGS ---
Progress Note: A&P Assessment and Plan (1) Incarcerated umbilical hernia: Code(s): K42.0 - Umbilical hernia with obstruction, without gangrene Status: Acute Assessment and Plan: doing well s/p repair, await ROBF, will clamp NG and poss remove later today, clears if NG out, OOB/IS Subjective Subjective Date/Time Seen: 08/25/24 08:40 Interval history: feels good this am, reports minimal abd soreness Review of Systems Review of Systems: All systems reviewed & are unremarkable except as noted in HPI and below Exam Const: General: cooperative, comfortable and no acute distress Resp: Auscultation: diminished lung sounds Cardio: Rate: regular rate Rhythm: regular rhythm GI: Inspection: normal to inspection, distended and incision GI Palp: Yes abdominal tenderness and Yes Soft to palpation Objective Data Vital Signs Vital Signs: Vital Signs - 24 hr 08/24/24 10:00 08/24/24 11:10 08/24/24 14:32 Temperature 37.2 C 36.3 C L Pulse Rate 92 102 H 93 Respiratory Rate 16 Blood Pressure 110/85 145/104 H Pulse Oximetry 96 96 Oxygen Delivery Nasal Cannula Simple Face Mask Oxygen Flow Rate 2 8 08/24/24 14:45 08/24/24 15:00 08/24/24 15:11 Temperature Pulse Rate 100 102 H Respiratory Rate 18 21 H Blood Pressure 142/88 H 151/79 H Pulse Oximetry 98 95 95 Oxygen Delivery Simple Face Mask Room Air Nasal Cannula Oxygen Flow Rate 8 2 08/24/24 15:15 08/24/24 15:30 08/24/24 15:45 Temperature Pulse Rate 100 91 94 Respiratory Rate 16 13 13 Blood Pressure 128/82 122/93 H 116/65 Pulse Oximetry 94 97 95 Oxygen Delivery Nasal Cannula Nasal Cannula Nasal Cannula Oxygen Flow Rate 2 2 2 08/24/24 16:00 08/24/24 16:00 08/24/24 18:00 Temperature 36.4 C Pulse Rate 93 98 95 Respiratory Rate 12 20 Blood Pressure 127/52 L 129/82 Pulse Oximetry 95 95 Oxygen Delivery Nasal Cannula Oxygen Flow Rate 2 08/24/24 19:26 08/24/24 20:00 08/24/24 20:00 Temperature 36.8 C 36.8 C Pulse Rate 98 98 Respiratory Rate 17 18 Blood Pressure 133/86 133/86 Pulse Oximetry 96 96 96 Oxygen Delivery Nasal Cannula Oxygen Flow Rate 2 08/24/24 20:00 08/24/24 20:17 08/24/24 22:00 Temperature Pulse Rate 96 97 83 Respiratory Rate Blood Pressure Pulse Oximetry Oxygen Delivery Oxygen Flow Rate 08/24/24 23:53 08/25/24 00:00 08/25/24 00:00 Temperature 36.6 C Pulse Rate 85 85 Respiratory Rate 17 Blood Pressure 136/82 Pulse Oximetry 97 97 Oxygen Delivery Nasal Cannula Oxygen Flow Rate 2 08/25/24 02:00 08/25/24 03:47 08/25/24 03:52 Temperature 36.4 C Pulse Rate 93 85 Respiratory Rate 18 Blood Pressure 131/77 Pulse Oximetry 96 90 Oxygen Delivery Nasal Cannula Oxygen Flow Rate 2 08/25/24 04:00 08/25/24 06:00 08/25/24 08:00 Temperature 37.2 C Pulse Rate 86 84 91 Respiratory Rate 18 Blood Pressure 114/66 Pulse Oximetry 96 Oxygen Delivery Oxygen Flow Rate Intake/Output Intake/Output: Intake & Output 08/22/24 08/23/24 08/24/24 08/25/24 23:59 23:59 23:59 23:59 Intake Total 1000 1699.6 1421.6 Output Total 1850 1000 250 Balance 1000 -150.4 421.6 -250 Meds/Results Medications: Active Medications Generic Name Dose Route Start Last Admin Trade Name Freq PRN Reason Stop Dose Admin Acetaminophen 650 mg 08/23/24 00:33 Acetaminophen 650 Mg Suppository RECTAL Q6H PRN Mild Pain (1-3) or Fever Acetaminophen 650 mg 08/23/24 00:37 08/25/24 02:35 Acetaminophen 325 Mg Tablet PO 650 mg Q4H PRN Administration Mild Pain (1-3) or Fever Albuterol 2 puff 08/23/24 02:18 Albuterol Sulfate (*Sp) Aerosol 1 Puff INHALATION Q6HRT PRN shortness of breath or wheezing Dextrose 12.5 gm 08/23/24 00:33 Dextrose 50% 25 Gm/50 Ml Syringe IV PUSH PRN PRN Hypoglycemia Protocol Furosemide 40 mg 08/25/24 09:00 Furosemide 40 Mg Tablet PO DAILY REJI Glucagon 1 mg 08/23/24 00:33 Glucagon For Inj 1 Mg Vial IM PRN PRN Hypoglycemia Protocol Glucose 15 gm 08/23/24 00:33 Glucose Oral Gel 15 Gm Of Glucse In 37.5 Gm Tube PO PRN PRN Hypoglycemia Protocol Hydromorphone HCl 0.3 mg 08/23/24 09:22 08/23/24 09:51 Hydromorphone Hcl Inj (*Crx) 1 Mg/Ml Syr IV PUSH 0.3 mg Q4HR PRN Administration Pain Rated 7-10 Dextrose 1,000 mls @ 100 mls/hr 08/23/24 00:33 Dextrose 5% 1,000 Ml IVPB PRN PRN Hypoglycemia Protocol Dextrose/Sodium Chloride 1,000 mls @ 50 mls/hr 08/23/24 00:40 08/24/24 11:00 Dextrose 5% Sodium Chloride 0.45% IV CONT 0 mls/hr .Q20H REJI Infusion Azithromycin 500 mg in 250 mls @ 250 mls/hr 08/24/24 09:00 08/24/24 11:17 Zithromax IVPB Infused Q24H REJI Infusion Metoprolol Tartrate 50 mg 08/24/24 10:15 08/24/24 20:17 Metoprolol Tartrate 50 Mg Tab PO 50 mg Q12HR REJI Administration Morphine Sulfate 2 mg 08/23/24 00:33 Morphine Sulfate (*Crx) 2 Mg/Ml Inj IV PUSH Q2H PRN Pain Rated 7-10 Ondansetron HCl 4 mg 08/23/24 00:33 Ondansetron Inj 4 Mg/2 Ml Vial IV PUSH Q4H PRN Nausea Perflutren Lipid Microsphere 0 ml 08/23/24 01:47 Perflutren Lipid Microspheres 1.5 Ml Vial Diluted To 10 Ml Total Volume IV PUSH 08/26/24 01:47 ONCE PRN adequate visualization Protocol Radiology Results: ITS Impressions Chest X-Ray 08/22/24 22:45 IMPRESSION: Pulmonary opacities may represent edema, probably with a component of atelectasis. Infection not excluded. Trace left effusion. Chest/Abdomen/Pelvis CTA 08/22/24 22:59 IMPRESSION: Subsegmental lingular consolidation suspicious for pneumonia or aspiration. Segmental and subsegmental left lower lobe pulmonary arteries not adequately assessed due to motion. No pulmonary embolus detected in the adequately visualized pulmonary arteries. Moderate bilateral pleural effusions. Asymmetric right gynecomastia, consider nonemergent mammography and breast ultrasound. Multiple splenic hypodensities, presumably related to cysts or hemangiomas. Infection or metastatic disease considered less likely. Bilateral indeterminate renal lesions, recommend nonemergent MRI or CT with and without contrast for further characterization. Small bowel obstruction, transition point at a moderate sized umbilical hernia that contains a loop of small bowel. Mild ascites. Abdomen X-Ray 08/23/24 05:36 Impression: NG tube in satisfactory position. Probable small bowel obstruction. Labs Labs: Laboratory Results - last 24 hr 08/24/24 08/24/24 08/24/24 09:39 10:59 14:56 WBC 14.2 H RBC 5.78 Hgb 16.0 Hct 50.6 MCV 87.5 MCH 27.7 MCHC 31.6 L RDW 13.9 Plt Count 295 MPV 10.0 Immature Gran % (Auto) 0.3 Neut % (Auto) 64.0 Lymph % (Auto) 24.4 [place] % (Auto) 8.4 Eos % (Auto) 2.3 Baso % (Auto) 0.6 Lymph # (Auto) 3.48 H [place] # (Auto) 1.2 H Eos # (Auto) 0.3 Baso # (Auto) 0.1 Abs Immat Gran (auto) 0.04 H Absolute Neuts (auto) 9.1 H Absolute Nucleated RBC 0.000 Nucleated RBC % 0.0 Sodium 139 Potassium 3.9 Chloride 95 L Carbon Dioxide 36 H Anion Gap 8 BUN 14 Creatinine 0.78 Estim Creat Clear Calc 64 Estimated GFR > 60 Glucose 104 POC Capillary Glucose 93 108 H Calcium 8.5 Phosphorus 3.5 Magnesium 1.9 Total Bilirubin AST ALT Alkaline Phosphatase Total Protein Albumin 08/24/24 08/24/24 08/25/24 18:44 19:31 03:49 WBC 18.5 H RBC 4.86 Hgb 13.5 L Hct 42.8 MCV 88.1 MCH 27.8 MCHC 31.5 L RDW 14.0 Plt Count 273 MPV 10.2 Immature Gran % (Auto) 0.4 Neut % (Auto) 77.2 H Lymph % (Auto) 14.4 L [place] % (Auto) 7.1 Eos % (Auto) 0.5 Baso % (Auto) 0.4 Lymph # (Auto) 2.67 [place] # (Auto) 1.3 H Eos # (Auto) 0.1 Baso # (Auto) 0.1 Abs Immat Gran (auto) 0.08 H Absolute Neuts (auto) 14.3 H Absolute Nucleated RBC 0.000 Nucleated RBC % 0.0 Sodium 138 Potassium 3.4 Chloride 99 Carbon Dioxide 28 Anion Gap 11 BUN 21 H Creatinine 1.00 Estim Creat Clear Calc 51 Estimated GFR > 60 Glucose 81 POC Capillary Glucose 98 100 Calcium 8.1 L Phosphorus Magnesium Total Bilirubin 1.0 AST 31 ALT 15 Alkaline Phosphatase 49 Total Protein 6.0 L Albumin 3.4 L
[2024-08-25] MEDS: FUROSEMIDE 40 MG TABLET PO (08:50)
[2024-08-25] MEDS: METOPROLOL TARTRATE 50 MG TAB PO (08:50)
[2024-08-25] MEDS: AZITHROMYCIN 500 MG/NS 250 ML 500 MG/250 ML BAG 250 MG IVPB (08:51)
[2024-08-25 09:07] LABS: Magnesium 1.7 mg/dL (1.6-2.3); Phosphorus 3.9 mg/dL (2.5-4.5)
--- NOTE | 2024-08-25 11:24 | PM.PNCARD ---
Progress Note: A&P Assessment and Plan (1) Congestive heart failure: Code(s): I50.9 - Heart failure, unspecified Status: Acute (2) Hyperlipidemia: Code(s): E78.5 - Hyperlipidemia, unspecified Status: Chronic (3) Hypertension: Code(s): I10 - Essential (primary) hypertension Status: Chronic Plan 74-year-old man with nonobstructive CAD, chronic systolic heart failure (LVEF 40-45%), alcoholic cirrhosis, and hyperlipidemia presented with abdominal pain found to have incarcerated hernia for which he underwent laparoscopic repair Chronic systolic heart failure -he is euvolemic on Lasix oral 40 mg daily which he can continue outpatient -will convert his Lopressor 50 mg p.o. b.i.d. to Toprol 100 mg p.o. daily which he can continue outpatient -his blood pressure currently will not tolerate any further additional guideline directed medical therapy -he can follow up outpatient Nonobstructive CAD -would discharge on aspirin 81 mg p.o. daily Hyperlipidemia -resume rosuvastatin 10 mg every evening Paroxysmal atrial tachycardia -he has runs of these overnight that are short and self-limiting -continue Toprol 100 mg p.o. daily -no further inpatient cardiac workup warranted Patient will follow-up with his outpatient medical collector at the [facility] Subjective Date/time seen: 08/25/24 11:24 Interval history: Denies any chest pain or shortness of breath. No orthopnea or lower extremity swelling. Recovering from laparoscopic abdominal surgery Review of Systems Cardiovascular: Cardiovascular: Reports as per HPI Respiratory: Respiratory: Reports as per HPI Exam Const: General: comfortable HENMT: Mouth: Yes moist mucous membranes Eyes: EOM: EOMs intact bilaterally Neck: Neck: no JVD Resp: Effort & Inspection: normal respiratory effort Auscultation: clear to auscultation bilaterally Cardio: Rate: regular rate Rhythm: regular rhythm Neuro: Speech: normal speech Extrem: General: no pedal edema Objective Data Vital Signs Vital Signs: Vital Signs - 24 hr 08/24/24 14:32 08/24/24 14:45 08/24/24 15:00 Temperature 36.3 C L Pulse Rate 93 100 102 H Respiratory Rate 16 18 21 H Blood Pressure 145/104 H 142/88 H 151/79 H Pulse Oximetry 96 98 95 Oxygen Delivery Simple Face Mask Simple Face Mask Room Air Oxygen Flow Rate 8 8 08/24/24 15:11 08/24/24 15:15 08/24/24 15:30 Temperature Pulse Rate 100 91 Respiratory Rate 16 13 Blood Pressure 128/82 122/93 H Pulse Oximetry 95 94 97 Oxygen Delivery Nasal Cannula Nasal Cannula Nasal Cannula Oxygen Flow Rate 2 2 2 08/24/24 15:45 08/24/24 16:00 08/24/24 16:00 Temperature 36.4 C Pulse Rate 94 93 98 Respiratory Rate 13 12 20 Blood Pressure 116/65 127/52 L 129/82 Pulse Oximetry 95 95 95 Oxygen Delivery Nasal Cannula Nasal Cannula Oxygen Flow Rate 2 2 08/24/24 18:00 08/24/24 19:26 08/24/24 20:00 Temperature 36.8 C 36.8 C Pulse Rate 95 98 98 Respiratory Rate 17 18 Blood Pressure 133/86 133/86 Pulse Oximetry 96 96 Oxygen Delivery Oxygen Flow Rate 08/24/24 20:00 08/24/24 20:00 08/24/24 20:17 Temperature Pulse Rate 96 97 Respiratory Rate Blood Pressure Pulse Oximetry 96 Oxygen Delivery Nasal Cannula Oxygen Flow Rate 2 08/24/24 22:00 08/24/24 23:53 08/25/24 00:00 Temperature 36.6 C Pulse Rate 83 85 Respiratory Rate 17 Blood Pressure 136/82 Pulse Oximetry 97 97 Oxygen Delivery Nasal Cannula Oxygen Flow Rate 2 08/25/24 00:00 08/25/24 02:00 08/25/24 03:47 Temperature Pulse Rate 85 93 Respiratory Rate Blood Pressure Pulse Oximetry 96 Oxygen Delivery Nasal Cannula Oxygen Flow Rate 2 08/25/24 03:52 08/25/24 04:00 08/25/24 06:00 Temperature 36.4 C Pulse Rate 85 86 84 Respiratory Rate 18 Blood Pressure 131/77 Pulse Oximetry 90 Oxygen Delivery Oxygen Flow Rate 08/25/24 08:00 08/25/24 08:50 Temperature 37.2 C Pulse Rate 91 86 Respiratory Rate 18 Blood Pressure 114/66 Pulse Oximetry 96 Oxygen Delivery Oxygen Flow Rate Intake/Output Intake/Output: Intake & Output 08/22/24 08/23/24 08/24/24 08/25/24 23:59 23:59 23:59 23:59 Intake Total 1000 1699.6 1421.6 Output Total 1850 1000 250 Balance 1000 -150.4 421.6 -250 Meds/Results Medications: Active Medications Generic Name Dose Route Start Last Admin Trade Name Freq PRN Reason Stop Dose Admin Acetaminophen 650 mg 08/23/24 00:33 Acetaminophen 650 Mg Suppository RECTAL Q6H PRN Mild Pain (1-3) or Fever Acetaminophen 650 mg 08/23/24 00:37 08/25/24 02:35 Acetaminophen 325 Mg Tablet PO 650 mg Q4H PRN Administration Mild Pain (1-3) or Fever Albuterol 2 puff 08/23/24 02:18 Albuterol Sulfate (*Sp) Aerosol 1 Puff INHALATION Q6HRT PRN shortness of breath or wheezing Dextrose 12.5 gm 08/23/24 00:33 Dextrose 50% 25 Gm/50 Ml Syringe IV PUSH PRN PRN Hypoglycemia Protocol Furosemide 40 mg 08/25/24 09:00 08/25/24 08:50 Furosemide 40 Mg Tablet PO 40 mg DAILY REJI Administration Glucagon 1 mg 08/23/24 00:33 Glucagon For Inj 1 Mg Vial IM PRN PRN Hypoglycemia Protocol Glucose 15 gm 08/23/24 00:33 Glucose Oral Gel 15 Gm Of Glucse In 37.5 Gm Tube PO PRN PRN Hypoglycemia Protocol Hydromorphone HCl 0.3 mg 08/23/24 09:22 08/23/24 09:51 Hydromorphone Hcl Inj (*Crx) 1 Mg/Ml Syr IV PUSH 0.3 mg Q4HR PRN Administration Pain Rated 7-10 Dextrose 1,000 mls @ 100 mls/hr 08/23/24 00:33 Dextrose 5% 1,000 Ml IVPB PRN PRN Hypoglycemia Protocol Dextrose/Sodium Chloride 1,000 mls @ 50 mls/hr 08/23/24 00:40 08/24/24 11:00 Dextrose 5% Sodium Chloride 0.45% IV CONT 0 mls/hr .Q20H REJI Infusion Azithromycin 500 mg in 250 mls @ 250 mls/hr 08/24/24 09:00 08/25/24 08:51 Zithromax IVPB 250 mls/hr Q24H REJI Administration Metoprolol Tartrate 50 mg 08/24/24 10:15 08/25/24 08:50 Metoprolol Tartrate 50 Mg Tab PO 50 mg Q12HR REJI Administration Morphine Sulfate 2 mg 08/23/24 00:33 Morphine Sulfate (*Crx) 2 Mg/Ml Inj IV PUSH Q2H PRN Pain Rated 7-10 Ondansetron HCl 4 mg 08/23/24 00:33 Ondansetron Inj 4 Mg/2 Ml Vial IV PUSH Q4H PRN Nausea Perflutren Lipid Microsphere 0 ml 08/23/24 01:47 Perflutren Lipid Microspheres 1.5 Ml Vial Diluted To 10 Ml Total Volume IV PUSH 08/26/24 01:47 ONCE PRN adequate visualization Protocol Radiology Results: ITS Impressions Chest X-Ray 08/22/24 22:45 IMPRESSION: Pulmonary opacities may represent edema, probably with a component of atelectasis. Infection not excluded. Trace left effusion. Chest/Abdomen/Pelvis CTA 08/22/24 22:59 IMPRESSION: Subsegmental lingular consolidation suspicious for pneumonia or aspiration. Segmental and subsegmental left lower lobe pulmonary arteries not adequately assessed due to motion. No pulmonary embolus detected in the adequately visualized pulmonary arteries. Moderate bilateral pleural effusions. Asymmetric right gynecomastia, consider nonemergent mammography and breast ultrasound. Multiple splenic hypodensities, presumably related to cysts or hemangiomas. Infection or metastatic disease considered less likely. Bilateral indeterminate renal lesions, recommend nonemergent MRI or CT with and without contrast for further characterization. Small bowel obstruction, transition point at a moderate sized umbilical hernia that contains a loop of small bowel. Mild ascites. Abdomen X-Ray 08/23/24 05:36 Impression: NG tube in satisfactory position. Probable small bowel obstruction. Labs Labs: Laboratory Results - last 24 hr 08/24/24 08/24/24 08/24/24 14:56 18:44 19:31 WBC RBC Hgb Hct MCV MCH MCHC RDW Plt Count MPV Immature Gran % (Auto) Neut % (Auto) Lymph % (Auto) [place] % (Auto) Eos % (Auto) Baso % (Auto) Lymph # (Auto) [place] # (Auto) Eos # (Auto) Baso # (Auto) Abs Immat Gran (auto) Absolute Neuts (auto) Absolute Nucleated RBC Nucleated RBC % Sodium Potassium Chloride Carbon Dioxide Anion Gap BUN Creatinine Estim Creat Clear Calc Estimated GFR Glucose POC Capillary Glucose 108 H 98 100 Calcium Phosphorus Magnesium Total Bilirubin AST ALT Alkaline Phosphatase Total Protein Albumin 08/25/24 08/25/24 03:46 03:49 WBC 18.5 H RBC 4.86 Hgb 13.5 L Hct 42.8 MCV 88.1 MCH 27.8 MCHC 31.5 L RDW 14.0 Plt Count 273 MPV 10.2 Immature Gran % (Auto) 0.4 Neut % (Auto) 77.2 H Lymph % (Auto) 14.4 L [place] % (Auto) 7.1 Eos % (Auto) 0.5 Baso % (Auto) 0.4 Lymph # (Auto) 2.67 [place] # (Auto) 1.3 H Eos # (Auto) 0.1 Baso # (Auto) 0.1 Abs Immat Gran (auto) 0.08 H Absolute Neuts (auto) 14.3 H Absolute Nucleated RBC 0.000 Nucleated RBC % 0.0 Sodium 138 Potassium 3.4 Chloride 99 Carbon Dioxide 28 Anion Gap 11 BUN 21 H Creatinine 1.00 Estim Creat Clear Calc 51 Estimated GFR > 60 Glucose 81 POC Capillary Glucose Calcium 8.1 L Phosphorus 3.9 Magnesium 1.7 Total Bilirubin 1.0 AST 31 ALT 15 Alkaline Phosphatase 49 Total Protein 6.0 L Albumin 3.4 L
[2024-08-25 11:55] LABS: Glucose Point of Care 70 mg/dl (65-105)
--- NOTE | 2024-08-25 16:16 | P.PNIM_ITS ---
Progress Note: A&P Assessment and Plan (1) Acute exacerbation of CHF (congestive heart failure): Qualifiers: Heart failure type: unspecified Qualified Code(s): I50.9 - Heart failure, unspecified Code(s): I50.9 - Heart failure, unspecified Status: Acute (2) Pneumonia: Qualifiers: Laterality: bilateral Lung location: lower lobe of lung Pneumonia type: due to unspecified organism Qualified Code(s): J18.9 - Pneumonia, unspecified organism Code(s): J18.9 - Pneumonia, unspecified organism Status: Acute (3) Small bowel obstruction: Code(s): K56.609 - Unspecified intestinal obstruction, unspecified as to partial versus complete obstruction Status: Acute (4) Atrial fibrillation with RVR: Code(s): I48.91 - Unspecified atrial fibrillation Status: Acute Plan Acute exacerbation of combined CHF Code(s): I50.9 - Heart failure, unspecified Status: Acute Assessment and Plan: ProBNP 7570 Chest x-ray showing pulmonary opacities representing edema Chest/abdomen/pelvis CTA showed moderate bilateral pleural effusions, subsegmental lingular consolidation suspicious for pneumonia or aspiration Left echocardiogram on 08/23 showed ventricular systolic function is mildly reduced, estimated at 40-45%. The left ventricular diastolic function is grade I diastolic dysfunction. Consulted shopper's aide, continue IV Lasix per shopper's aide recommendation Hypokalemia Replete with potassium chloride Follow-up BMP, Correct electrolyte abnormality accordingly Elevated troponin: Code(s): R79.89 - Other specified abnormal findings of blood chemistry Status: Acute Assessment and Plan: Troponin 0.058 Likely demand ischemia Atrial fibrillation with RVR: Code(s): I48.91 - Unspecified atrial fibrillation Status: Acute Assessment and Plan: EKG showing sinus tach with occasional ventricular premature complexes with frequent supraventricular premature complexes, right bundle branch block, left posterior fascicular block with a rate of 111, QTC 499 according to the EKG read on printout. It was determined that the patient was in AFib RVR while in the ED. was also noted to be in AFib RVR at [facility] however left AMA before treatment. This is new onset. Patient was given Cardizem bolus and started on Cardizem drip at 5 mg/hour Cardiology consulted Plan for echocardiogram hold off on anticoagulation for now due to potential surgery. Change metoprolol 5 mg Small bowel obstruction: Code(s): K56.609 - Unspecified intestinal obstruction, unspecified as to partial versus complete obstruction Status: Acute Assessment and Plan: Chest/abdomen/pelvis CTA showed small bowel obstruction with transition point at a moderate-sized umbilical hernia that contains a loop of small bowel General surgery consulted Was on NG tube placed to low intermittent suction with green bilious drainage Received D5 1/2 normal saline at 50 mL/hour D1 Status post umbilical hernia repair 08/25. Patient still on NG tube suction intermittently May remove NG tube today (5) Umbilical hernia: Code(s): K42.9 - Umbilical hernia without obstruction or gangrene Status: Acute Assessment and Plan: Was reducible in the ER however when he coughed or sat up, hernia returned. General surgery consulted Status post umbilical hernia repair 08/24 (6) Pneumonia: Code(s): J18.9 - Pneumonia, unspecified organism Status: Acute Assessment and Plan: Chest x-ray showing pulmonary opacities representing edema versus infection Chest/abdomen/pelvis CTA was negative for PE, showed moderate bilateral pleural effusion, subsegmental lingular consolidation suspicious for pneumonia or aspiration Continue Zosyn and azithromycin IV (7) Elevated d-dimer: Code(s): R79.89 - Other specified abnormal findings of blood chemistry Status: Acute Assessment and Plan: D-dimer 4.21 CTA of the abdomen/pelvis/chest was negative for PE Elevated bilirubin: Code(s): R17 - Unspecified jaundice Status: Acute Assessment and Plan: Total bilirubin 1.4 Continue to trend Elevated lipase: Code(s): R74.8 - Abnormal levels of other serum enzymes Status: Acute Assessment and Plan: Lipase elevated at 351 CT does not show acute pancreatitis Hyperlipidemia: Code(s): E78.5 - Hyperlipidemia, unspecified Status: Chronic Assessment and Plan: Will hold aspirin and rosuvastatin for now due to NPO status Vitamin D deficiency: Code(s): E55.9 - Vitamin D deficiency, unspecified Status: Chronic Assessment and Plan: hold vitamin-D 3 for now due to NPO status Hypertension: Code(s): I10 - Essential (primary) hypertension Status: Chronic Assessment and Plan: Coreg on hold due to NPO status Continue to monitor, adjust medication chronic Subjective Date/time seen: 08/25/24 16:16 Interval history: Saw examined patient in presents of patient nurse and general surgeon [employer]. Pain is tolerable, patient still on NG tube suction intermittently. Patient has not passed gas yet. Patient denies chest pain shortness breast Exam Narrative: GENERAL: Ill-appearing in no acute distress. Well-nourished. - EYES: EOMI. Anicteric. - HENT: Moist mucous membranes. NG tube in-situ - LUNGS: Coarse breath sound bilateral base - CARDIOVASCULAR: Regular rate and rhyth m. No murmur. No JVD. - ABDOMEN: Soft, non-tender and non-dist ended. No palpable masses. - EXTREMITIES: No edema. Peripheral puls es 2+. Non-tender. - NEUROLOGIC: No focal neurological defi cits. CN II-XII grossly intact. - PSYCHIATRIC: Awake, Alert and oriented x 3. Appropriate mood and affect. - SKIN: No rashes or lesions. Warm. - LYMPH: No cervical lymphadenopathy. Objective Data Vital Signs Vital Signs: Vital Signs - 24 hr 08/24/24 18:00 08/24/24 19:26 08/24/24 20:00 Temperature 98.2 F 98.2 F Pulse Rate 95 98 98 Respiratory Rate 17 18 Blood Pressure 133/86 133/86 Pulse Oximetry 96 96 Oxygen Delivery Oxygen Flow Rate 08/24/24 20:00 08/24/24 20:00 08/24/24 20:17 Temperature Pulse Rate 96 97 Respiratory Rate Blood Pressure Pulse Oximetry 96 Oxygen Delivery Nasal Cannula Oxygen Flow Rate 2 08/24/24 22:00 08/24/24 23:53 08/25/24 00:00 Temperature 97.8 F Pulse Rate 83 85 Respiratory Rate 17 Blood Pressure 136/82 Pulse Oximetry 97 97 Oxygen Delivery Nasal Cannula Oxygen Flow Rate 2 08/25/24 00:00 08/25/24 02:00 08/25/24 03:47 Temperature Pulse Rate 85 93 Respiratory Rate Blood Pressure Pulse Oximetry 96 Oxygen Delivery Nasal Cannula Oxygen Flow Rate 2 08/25/24 03:52 08/25/24 04:00 08/25/24 06:00 Temperature 97.6 F Pulse Rate 85 86 84 Respiratory Rate 18 Blood Pressure 131/77 Pulse Oximetry 90 Oxygen Delivery Oxygen Flow Rate 08/25/24 08:00 08/25/24 08:00 08/25/24 08:50 Temperature 98.9 F Pulse Rate 91 93 86 Respiratory Rate 18 Blood Pressure 114/66 Pulse Oximetry 96 Oxygen Delivery Oxygen Flow Rate 08/25/24 10:00 08/25/24 12:00 08/25/24 12:00 Temperature 98.4 F Pulse Rate 85 68 89 Respiratory Rate 18 Blood Pressure 102/60 Pulse Oximetry 95 Oxygen Delivery Oxygen Flow Rate Intake/Output Intake/Output: Intake & Output 08/22/24 08/23/24 08/24/24 08/25/24 23:59 23:59 23:59 23:59 Intake Total 1000 1699.6 1421.6 250 Output Total 1850 1000 1300 Balance 1000 -150.4 421.6 -1050 Meds/Results Medications: Active Medications Generic Name Dose Route Start Last Admin Trade Name Freq PRN Reason Stop Dose Admin Acetaminophen 650 mg 08/23/24 00:33 Acetaminophen 650 Mg Suppository RECTAL Q6H PRN Mild Pain (1-3) or Fever Acetaminophen 650 mg 08/23/24 00:37 08/25/24 02:35 Acetaminophen 325 Mg Tablet PO 650 mg Q4H PRN Administration Mild Pain (1-3) or Fever Albuterol 2 puff 08/23/24 02:18 Albuterol Sulfate (*Sp) Aerosol 1 Puff INHALATION Q6HRT PRN shortness of breath or wheezing Dextrose 12.5 gm 08/23/24 00:33 Dextrose 50% 25 Gm/50 Ml Syringe IV PUSH PRN PRN Hypoglycemia Protocol Furosemide 40 mg 08/25/24 09:00 08/25/24 08:50 Furosemide 40 Mg Tablet PO 40 mg DAILY REJI Administration Glucagon 1 mg 08/23/24 00:33 Glucagon For Inj 1 Mg Vial IM PRN PRN Hypoglycemia Protocol Glucose 15 gm 08/23/24 00:33 Glucose Oral Gel 15 Gm Of Glucse In 37.5 Gm Tube PO PRN PRN Hypoglycemia Protocol Hydromorphone HCl 0.3 mg 08/23/24 09:22 08/23/24 09:51 Hydromorphone Hcl Inj (*Crx) 1 Mg/Ml Syr IV PUSH 0.3 mg Q4HR PRN Administration Pain Rated 7-10 Dextrose 1,000 mls @ 100 mls/hr 08/23/24 00:33 Dextrose 5% 1,000 Ml IVPB PRN PRN Hypoglycemia Protocol Azithromycin 500 mg in 250 mls @ 250 mls/hr 08/24/24 09:00 08/25/24 09:51 Zithromax IVPB Infused Q24H REJI Infusion Metoprolol Succinate 100 mg 08/26/24 09:00 Metoprolol Succinate Ext Rel 100 Mg Tabcr PO QAM REJI Morphine Sulfate 2 mg 08/23/24 00:33 Morphine Sulfate (*Crx) 2 Mg/Ml Inj IV PUSH Q2H PRN Pain Rated 7-10 Ondansetron HCl 4 mg 08/23/24 00:33 Ondansetron Inj 4 Mg/2 Ml Vial IV PUSH Q4H PRN Nausea Perflutren Lipid Microsphere 0 ml 08/23/24 01:47 Perflutren Lipid Microspheres 1.5 Ml Vial Diluted To 10 Ml Total Volume IV PUSH 08/26/24 01:47 ONCE PRN adequate visualization Protocol Radiology Results: ITS Impressions Chest X-Ray 08/22/24 22:45 IMPRESSION: Pulmonary opacities may represent edema, probably with a component of atelectasis. Infection not excluded. Trace left effusion. Chest/Abdomen/Pelvis CTA 08/22/24 22:59 IMPRESSION: Subsegmental lingular consolidation suspicious for pneumonia or aspiration. Segmental and subsegmental left lower lobe pulmonary arteries not adequately assessed due to motion. No pulmonary embolus detected in the adequately visualized pulmonary arteries. Moderate bilateral pleural effusions. Asymmetric right gynecomastia, consider nonemergent mammography and breast ultrasound. Multiple splenic hypodensities, presumably related to cysts or hemangiomas. Infection or metastatic disease considered less likely. Bilateral indeterminate renal lesions, recommend nonemergent MRI or CT with and without contrast for further characterization. Small bowel obstruction, transition point at a moderate sized umbilical hernia that contains a loop of small bowel. Mild ascites. Abdomen X-Ray 08/23/24 05:36 Impression: NG tube in satisfactory position. Probable small bowel obstruction. Labs Labs: Laboratory Results - last 24 hr 08/24/24 08/24/24 08/25/24 18:44 19:31 03:46 WBC RBC Hgb Hct MCV MCH MCHC RDW Plt Count MPV Immature Gran % (Auto) Neut % (Auto) Lymph % (Auto) [place] % (Auto) Eos % (Auto) Baso % (Auto) Lymph # (Auto) [place] # (Auto) Eos # (Auto) Baso # (Auto) Abs Immat Gran (auto) Absolute Neuts (auto) Absolute Nucleated RBC Nucleated RBC % Sodium Potassium Chloride Carbon Dioxide Anion Gap BUN Creatinine Estim Creat Clear Calc Estimated GFR Glucose POC Capillary Glucose 98 100 Calcium Phosphorus 3.9 Magnesium 1.7 Total Bilirubin AST ALT Alkaline Phosphatase Total Protein Albumin 08/25/24 08/25/24 03:49 11:53 WBC 18.5 H RBC 4.86 Hgb 13.5 L Hct 42.8 MCV 88.1 MCH 27.8 MCHC 31.5 L RDW 14.0 Plt Count 273 MPV 10.2 Immature Gran % (Auto) 0.4 Neut % (Auto) 77.2 H Lymph % (Auto) 14.4 L [place] % (Auto) 7.1 Eos % (Auto) 0.5 Baso % (Auto) 0.4 Lymph # (Auto) 2.67 [place] # (Auto) 1.3 H Eos # (Auto) 0.1 Baso # (Auto) 0.1 Abs Immat Gran (auto) 0.08 H Absolute Neuts (auto) 14.3 H Absolute Nucleated RBC 0.000 Nucleated RBC % 0.0 Sodium 138 Potassium 3.4 Chloride 99 Carbon Dioxide 28 Anion Gap 11 BUN 21 H Creatinine 1.00 Estim Creat Clear Calc 51 Estimated GFR > 60 Glucose 81 POC Capillary Glucose 70 Calcium 8.1 L Phosphorus Magnesium Total Bilirubin 1.0 AST 31 ALT 15 Alkaline Phosphatase 49 Total Protein 6.0 L Albumin 3.4 L
--- NOTE | 2024-08-25 16:40 | PC.NURSE ---
This patient, Js Contreras, was transferred to [[id number] ] on 08/25/24 at 1640. Personal belongings sent with patient. Report given to [[email or web address] ]. Appropriate documentation sent with patient.
[2024-08-25] MEDS: PIPERACILLN/TAZ 3.375GM/NS50ML 3.375 GM/50 ML BAG IVPB (17:36)
[2024-08-25 17:57] LABS: Glucose Point of Care 121 mg/dl (65-105)
[2024-08-25 18:28] LABS: Glucose Point of Care 115 mg/dl (65-105)
[2024-08-25] MEDS: HYDROmorphone HCL INJ (*CRX) 1 MG/ML SYR 0.3 MG IV PUSH (20:52)
[2024-08-26] MEDS: PIPERACILLN/TAZ 3.375GM/NS50ML 3.375 GM/50 ML BAG IVPB ×4 (00:28→16:53)
[2024-08-26 00:43] LABS: Glucose Point of Care 140 mg/dl (65-105)
[2024-08-26] MEDS: MORPHINE SULFATE (*CRX) 2 MG/ML INJ IV PUSH (04:47)
[2024-08-26 04:55] VITALS: BP 109/79; PULSE 97; RESP 16; TEMP 36.6; O2SAT 90
[2024-08-26 08:00] VITALS: PULSE 70; RESP 16; O2SAT 90
[2024-08-26 08:14] LABS: Hematocrit 39.3 % (42.0-52.0); Hemoglobin 12.3 g/dL (14.0-18.0); Mean Corpuscular HGB Conc 31.3 g/dl (32-36); Mean Corpuscular Hemoglobin 27.5 pg (26-34); Mean Corpuscular Volume 87.7 fl (80-100); Mean Platelet Volume 9.6 fl (7.4-10.4); Platelet Count Result 240 k/mm3 (150-375); Red Blood Count 4.48 M/mm3 (4.6-6.20); Red Cell Distribution Width 14.2 % (11.5-14.5)
[2024-08-26 08:28] LABS: Alanine Aminotransferase 15 U/L (6-50); Alkaline Phosphatase 64 U/L (38-126); Anion Gap 3 mmol/L (4-12); Aspartate Amino Transferase 26 U/L (17-59); Blood Urea Nitrogen 17 mg/dL (9-20); Calcium 7.5 mg/dL (8.4-10.2); Carbon Dioxide 34 mmol/L (22-30); Chloride 98 mmol/L (98-107); Estimated CRCL calculation 57 ml/min; Estimated Glomerular Filt Rate > 60; Glucose 113 mg/dL (65-110); Potassium 3.4 mmol/L (3.4-5.0); Sodium 135 mmol/L (137-145)
[2024-08-26] MEDS: AZITHROMYCIN 500 MG/NS 250 ML 500 MG/250 ML BAG 250 MG IVPB (08:57)
[2024-08-26] MEDS: FUROSEMIDE 40 MG TABLET PO (08:57)
[2024-08-26 08:58] VITALS: PULSE 70
[2024-08-26] MEDS: METOPROLOL SUCCINATE EXT REL 100 MG TABCR PO (08:58)
[2024-08-26] MEDS: ACETAMINOPHEN 325 MG TABLET 650 MG PO (09:25)
[2024-08-26 09:36] LABS: Band Neutrophils Percent 0 % (0-6); Neutrophils Absolute Manual 9.75 K/mm3 (1.3-6.7); Neutrophils Percent Manual 65 % (46-73); Total Cells Counted 100
[2024-08-26 09:37] LABS: Basophils Percent Manual 0 % (0-1); Eosinophils Absolute Manual 0.15 K/mm3 (0.02-0.50); Eosinophils Percent Manual 1 % (0-4); Lymphocytes Absolute Manual 4.65 K/mm3 (1.1-4.5); Lymphocytes Percent Manual 31 % (18-44); Monocytes Absolute Manual 0.45 K/mm3 (0.1-0.90); Monocytes Percent Manual 3 % (3-9); Platelet Estimate Adequate (Adequate)
[2024-08-26 09:39] LABS: Hypochromasia 1+; Schistocytes None Seen
--- NOTE | 2024-08-26 09:48 | P.PNIM_ITS ---
Progress Note: A&P Assessment and Plan (1) Acute exacerbation of CHF (congestive heart failure): Qualifiers: Heart failure type: unspecified Qualified Code(s): I50.9 - Heart failure, unspecified Code(s): I50.9 - Heart failure, unspecified Status: Acute (2) Pneumonia: Qualifiers: Laterality: bilateral Lung location: lower lobe of lung Pneumonia type: due to unspecified organism Qualified Code(s): J18.9 - Pneumonia, unspecified organism Code(s): J18.9 - Pneumonia, unspecified organism Status: Acute (3) Small bowel obstruction: Code(s): K56.609 - Unspecified intestinal obstruction, unspecified as to partial versus complete obstruction Status: Acute (4) Atrial fibrillation with RVR: Code(s): I48.91 - Unspecified atrial fibrillation Status: Acute Plan Acute exacerbation of combined CHF Code(s): I50.9 - Heart failure, unspecified Status: Acute Assessment and Plan: ProBNP 7570 Chest x-ray showing pulmonary opacities representing edema Chest/abdomen/pelvis CTA showed moderate bilateral pleural effusions, subsegmental lingular consolidation suspicious for pneumonia or aspiration Left echocardiogram on 08/23 showed ventricular systolic function is mildly reduced, estimated at 40-45%. The left ventricular diastolic function is grade I diastolic dysfunction. Consulted coagulating drying supervisor, Received Lasix IV, changed to Lasix 40 mg daily p.o. per coagulating drying supervisor recommendation on08/26 Hypokalemia Replete with potassium chloride. Corrected Follow-up BMP, Correct electrolyte abnormality accordingly Elevated troponin: Code(s): R79.89 - Other specified abnormal findings of blood chemistry Status: Acute Assessment and Plan: Troponin 0.058 Likely demand ischemia No further inpatient cardiac workup per coagulating drying supervisor recommendation Atrial fibrillation with RVR: Code(s): I48.91 - Unspecified atrial fibrillation Status: Acute Assessment and Plan: EKG showing sinus tach with occasional ventricular premature complexes with frequent supraventricular premature complexes, right bundle branch block, left posterior fascicular block with a rate of 111, QTC 499 according to the EKG read on printout. It was determined that the patient was in AFib RVR while in the ED . was also noted to be in AFib RVR at [facility] however left AMA before treatment. This is new onset. Patient was given Cardizem bolus and started on Cardizem drip at 5 mg/hour Cardiology consulted Recommend Toprol 100 mg daily, Small bowel obstruction: Code(s): K56.609 - Unspecified intestinal obstruction, unspecified as to partial versus complete obstruction Status: Acute Assessment and Plan: Chest/abdomen/pelvis CTA showed small bowel obstruction with transition point at a moderate-sized umbilical hernia that contains a loop of small bowel General surgery consulted Was on NG tube placed to low intermittent suction with green bilious drainage Received D5 1/2 normal saline at 50 mL/hour D1 Status post umbilical hernia repair 08/25. Patient still on NG tube suction intermittently 08/25 NG tube is removed, advance diet per General surgery recommendation 08/26 (5) Umbilical hernia: Code(s): K42.9 - Umbilical hernia without obstruction or gangrene Status: Acute Assessment and Plan: Was reducible in the ER however when he coughed or sat up, hernia returned. General surgery consulted Status post umbilical hernia repair 08/24 (6) Pneumonia: Code(s): J18.9 - Pneumonia, unspecified organism Status: Acute Assessment and Plan: Chest x-ray showing pulmonary opacities representing edema versus infection Chest/abdomen/pelvis CTA was negative for PE, showed moderate bilateral pleural effusion, subsegmental lingular consolidation suspicious for pneumonia or aspiration Continue Zosyn and azithromycin IV (7) Elevated d-dimer: Code(s): R79.89 - Other specified abnormal findings of blood chemistry Status: Acute Assessment and Plan: D-dimer 4.21 CTA of the abdomen/pelvis/chest was negative for PE Elevated bilirubin: Code(s): R17 - Unspecified jaundice Status: Acute Assessment and Plan: Total bilirubin 1.4 Continue to trend Elevated lipase: Code(s): R74.8 - Abnormal levels of other serum enzymes Status: Acute Assessment and Plan: Lipase elevated at 351 CT does not show acute pancreatitis Hyperlipidemia: Code(s): E78.5 - Hyperlipidemia, unspecified Status: Chronic Assessment and Plan: Resume home medications Vitamin D deficiency: Code(s): E55.9 - Vitamin D deficiency, unspecified Status: Chronic Assessment and Plan: hold vitamin-D 3 for now Hypertension: Code(s): I10 - Essential (primary) hypertension Status: Chronic Assessment and Plan: Continue to monitor, adjust medication chronic Subjective Date/time seen: 08/26/24 09:48 Interval history: I saw examined the patient today, NG tube is removed. Advance diet as tolerable per general surgeon . Patient denies chest pain shortness of breath, abdomen pain nausea vomiting Exam Narrative: GENERAL: Pleasant, in no acute distress. Well-nourished. - EYES: EOMI. Anicteric. - HENT: Moist mucous membranes. - LUNGS: Coarse breath sound bilaterall y - CARDIOVASCULAR: Regular rate and rhyth m. No murmur. No JVD. - ABDOMEN: Soft, non-tender and non-dist ended. No palpable masses. - EXTREMITIES: No edema. Peripheral puls es 2+. Non-tender. - NEUROLOGIC: No focal neurological defi cits. CN II-XII grossly intact. - PSYCHIATRIC: Awake, Alert and oriented x 3. Appropriate mood and affect. - SKIN: No rashes or lesions. Warm. - LYMPH: No cervical lymphadenopathy. Objective Data Vital Signs Vital Signs: Vital Signs - 24 hr 08/25/24 10:00 08/25/24 12:00 08/25/24 12:00 Temperature 98.4 F Pulse Rate 85 68 89 Respiratory Rate 18 Blood Pressure 102/60 Pulse Oximetry 95 Oxygen Delivery 08/25/24 16:00 08/25/24 16:45 08/25/24 16:50 Temperature 97.1 F L 98.2 F Pulse Rate 52 L 83 Respiratory Rate 18 18 18 Blood Pressure 106/73 113/65 Pulse Oximetry 91 93 93 Oxygen Delivery Room Air 08/25/24 20:00 08/25/24 20:25 08/26/24 04:55 Temperature 99.2 F 98 F Pulse Rate 85 85 97 Respiratory Rate 20 20 16 Blood Pressure 113/69 109/79 Pulse Oximetry 93 93 90 Oxygen Delivery Room Air 08/26/24 08:58 Temperature Pulse Rate 70 Respiratory Rate Blood Pressure Pulse Oximetry Oxygen Delivery Intake/Output Intake/Output: Intake & Output 08/23/24 08/24/24 08/25/24 08/26/24 23:59 23:59 23:59 23:59 Intake Total 1699.6 1421.6 1040 1860 Output Total 1850 1000 1300 225 Balance -150.4 421.6 -260 1635 Meds/Results Medications: Active Medications Generic Name Dose Route Start Last Admin Trade Name Freq PRN Reason Stop Dose Admin Acetaminophen 650 mg 08/23/24 00:33 Acetaminophen 650 Mg Suppository RECTAL Q6H PRN Mild Pain (1-3) or Fever Acetaminophen 650 mg 08/23/24 00:37 08/26/24 09:25 Acetaminophen 325 Mg Tablet PO 650 mg Q4H PRN Administration Mild Pain (1-3) or Fever Albuterol 2 puff 08/23/24 02:18 Albuterol Sulfate (*Sp) Aerosol 1 Puff INHALATION Q6HRT PRN shortness of breath or wheezing Dextrose 12.5 gm 08/23/24 00:33 Dextrose 50% 25 Gm/50 Ml Syringe IV PUSH PRN PRN Hypoglycemia Protocol Furosemide 40 mg 08/25/24 09:00 08/26/24 08:57 Furosemide 40 Mg Tablet PO 40 mg DAILY REJI Administration Glucagon 1 mg 08/23/24 00:33 Glucagon For Inj 1 Mg Vial IM PRN PRN Hypoglycemia Protocol Glucose 15 gm 08/23/24 00:33 Glucose Oral Gel 15 Gm Of Glucse In 37.5 Gm Tube PO PRN PRN Hypoglycemia Protocol Hydromorphone HCl 0.3 mg 08/23/24 09:22 08/25/24 20:52 Hydromorphone Hcl Inj (*Crx) 1 Mg/Ml Syr IV PUSH 0.3 mg Q4HR PRN Administration Pain Rated 7-10 Dextrose 1,000 mls @ 100 mls/hr 08/23/24 00:33 Dextrose 5% 1,000 Ml IVPB PRN PRN Hypoglycemia Protocol Azithromycin 500 mg in 250 mls @ 250 mls/hr 08/24/24 09:00 08/26/24 08:57 Zithromax IVPB 250 mls/hr Q24H REJI Administration Piperacillin/Tazobactam/Dextrose 3.375 gm in 50 mls @ 100 mls/hr 08/25/24 17:00 08/26/24 05:54 Zosyn 3.375 Gm/Ns 50 Ml IVPB 100 mls/hr Q6HR REJI Administration Metoprolol Succinate 100 mg 08/26/24 09:00 08/26/24 08:58 Metoprolol Succinate Ext Rel 100 Mg Tabcr PO 100 mg QAM REJI Administration Morphine Sulfate 2 mg 08/23/24 00:33 08/26/24 04:47 Morphine Sulfate (*Crx) 2 Mg/Ml Inj IV PUSH 2 mg Q2H PRN Administration Pain Rated 7-10 Ondansetron HCl 4 mg 08/23/24 00:33 Ondansetron Inj 4 Mg/2 Ml Vial IV PUSH Q4H PRN Nausea Radiology Results: ITS Impressions Chest X-Ray 08/22/24 22:45 IMPRESSION: Pulmonary opacities may represent edema, probably with a component of atelectasis. Infection not excluded. Trace left effusion. Chest/Abdomen/Pelvis CTA 08/22/24 22:59 IMPRESSION: Subsegmental lingular consolidation suspicious for pneumonia or aspiration. Segmental and subsegmental left lower lobe pulmonary arteries not adequately assessed due to motion. No pulmonary embolus detected in the adequately visualized pulmonary arteries. Moderate bilateral pleural effusions. Asymmetric right gynecomastia, consider nonemergent mammography and breast ultrasound. Multiple splenic hypodensities, presumably related to cysts or hemangiomas. Infection or metastatic disease considered less likely. Bilateral indeterminate renal lesions, recommend nonemergent MRI or CT with and without contrast for further characterization. Small bowel obstruction, transition point at a moderate sized umbilical hernia that contains a loop of small bowel. Mild ascites. Abdomen X-Ray 08/23/24 05:36 Impression: NG tube in satisfactory position. Probable small bowel obstruction. Labs Labs: Laboratory Results - last 24 hr 08/25/24 08/25/24 08/25/24 11:53 17:50 18:26 WBC RBC Hgb Hct MCV MCH MCHC RDW Plt Count MPV Immature Gran % (Auto) Neut % (Auto) Lymph % (Auto) [place] % (Auto) Eos % (Auto) Baso % (Auto) Lymph # (Auto) [place] # (Auto) Eos # (Auto) Baso # (Auto) Abs Immat Gran (auto) Absolute Neuts (auto) Absolute Nucleated RBC Total Counted Neutrophils % (Manual) Band Neutrophils % Lymphocytes % (Manual) Monocytes % (Manual) Eosinophils % (Manual) Basophils % (Manual) Nucleated RBC % Abs Neuts (Manual) Abs Lymphs (Manual) Abs Monocytes (Manual) Absolute Eos (Manual) Abs Basophils (Manual) Smudge Cells Platelet Estimate Hypochromasia Schistocytes Sodium Potassium Chloride Carbon Dioxide Anion Gap BUN Creatinine Estim Creat Clear Calc Estimated GFR Glucose POC Capillary Glucose 70 121 H 115 H Calcium Total Bilirubin AST ALT Alkaline Phosphatase Total Protein Albumin 08/26/24 08/26/24 00:31 07:55 WBC 15.0 H RBC 4.48 L Hgb 12.3 L Hct 39.3 L MCV 87.7 MCH 27.5 MCHC 31.3 L RDW 14.2 Plt Count 240 MPV 9.6 Immature Gran % (Auto) Not Reportable Neut % (Auto) Not Reportable Lymph % (Auto) Not Reportable [place] % (Auto) Not Reportable Eos % (Auto) Not Reportable Baso % (Auto) Not Reportable Lymph # (Auto) Not Reportable [place] # (Auto) Not Reportable Eos # (Auto) Not Reportable Baso # (Auto) Not Reportable Abs Immat Gran (auto) Not Reportable Absolute Neuts (auto) Not Reportable Absolute Nucleated RBC Not Reportable Total Counted 100 Neutrophils % (Manual) 65 Band Neutrophils % 0 Lymphocytes % (Manual) 31 Monocytes % (Manual) 3 Eosinophils % (Manual) 1 Basophils % (Manual) 0 Nucleated RBC % Not Reportable Abs Neuts (Manual) 9.75 H Abs Lymphs (Manual) 4.65 H Abs Monocytes (Manual) 0.45 Absolute Eos (Manual) 0.15 Abs Basophils (Manual) 0.00 Smudge Cells Mineral Surveying Technician Platelet Estimate Adequate Hypochromasia 1+ Schistocytes None seen Sodium 135 L Potassium 3.4 Chloride 98 Carbon Dioxide 34 H Anion Gap 3 L BUN 17 Creatinine 0.88 Estim Creat Clear Calc 57 Estimated GFR > 60 Glucose 113 H POC Capillary Glucose 140 H Calcium 7.5 L Total Bilirubin 1.0 AST 26 ALT 15 Alkaline Phosphatase 64 Total Protein 6.0 L Albumin 3.0 L
--- NOTE | 2024-08-26 09:53 | PM.PNGS ---
Progress Note: A&P Assessment and Plan (1) Incarcerated umbilical hernia: Code(s): K42.0 - Umbilical hernia with obstruction, without gangrene Status: Acute Assessment and Plan: doing well, exam benign, +flatus, advance diet as tolerated, encourage OOB/IS Subjective Subjective Date/Time Seen: 08/26/24 09:53 Interval history: feels good, +flatus, vianca clears Review of Systems Review of Systems: All systems reviewed & are unremarkable except as noted in HPI and below Exam Const: General: cooperative, comfortable and no acute distress Resp: Auscultation: clear to auscultation bilaterally Cardio: Rate: regular rate Rhythm: regular rhythm GI: Inspection: normal to inspection, non-distended and incision GI Palp: No abdominal tenderness and Yes Soft to palpation Objective Data Vital Signs Vital Signs: Vital Signs - 24 hr 08/25/24 10:00 08/25/24 12:00 08/25/24 12:00 Temperature 36.9 C Pulse Rate 85 68 89 Respiratory Rate 18 Blood Pressure 102/60 Pulse Oximetry 95 Oxygen Delivery 08/25/24 16:00 08/25/24 16:45 08/25/24 16:50 Temperature 36.2 C L 36.8 C Pulse Rate 52 L 83 Respiratory Rate 18 18 18 Blood Pressure 106/73 113/65 Pulse Oximetry 91 93 93 Oxygen Delivery Room Air 08/25/24 20:00 08/25/24 20:25 08/26/24 04:55 Temperature 37.3 C 36.6 C Pulse Rate 85 85 97 Respiratory Rate 20 20 16 Blood Pressure 113/69 109/79 Pulse Oximetry 93 93 90 Oxygen Delivery Room Air 08/26/24 08:58 Temperature Pulse Rate 70 Respiratory Rate Blood Pressure Pulse Oximetry Oxygen Delivery Intake/Output Intake/Output: Intake & Output 08/23/24 08/24/24 08/25/24 08/26/24 23:59 23:59 23:59 23:59 Intake Total 1699.6 1421.6 1040 1860 Output Total 1850 1000 1300 225 Balance -150.4 421.6 -260 1635 Meds/Results Medications: Active Medications Generic Name Dose Route Start Last Admin Trade Name Freq PRN Reason Stop Dose Admin Acetaminophen 650 mg 08/23/24 00:33 Acetaminophen 650 Mg Suppository RECTAL Q6H PRN Mild Pain (1-3) or Fever Acetaminophen 650 mg 08/23/24 00:37 08/26/24 09:25 Acetaminophen 325 Mg Tablet PO 650 mg Q4H PRN Administration Mild Pain (1-3) or Fever Albuterol 2 puff 08/23/24 02:18 Albuterol Sulfate (*Sp) Aerosol 1 Puff INHALATION Q6HRT PRN shortness of breath or wheezing Dextrose 12.5 gm 08/23/24 00:33 Dextrose 50% 25 Gm/50 Ml Syringe IV PUSH PRN PRN Hypoglycemia Protocol Furosemide 40 mg 08/25/24 09:00 08/26/24 08:57 Furosemide 40 Mg Tablet PO 40 mg DAILY REJI Administration Glucagon 1 mg 08/23/24 00:33 Glucagon For Inj 1 Mg Vial IM PRN PRN Hypoglycemia Protocol Glucose 15 gm 08/23/24 00:33 Glucose Oral Gel 15 Gm Of Glucse In 37.5 Gm Tube PO PRN PRN Hypoglycemia Protocol Hydromorphone HCl 0.3 mg 08/23/24 09:22 08/25/24 20:52 Hydromorphone Hcl Inj (*Crx) 1 Mg/Ml Syr IV PUSH 0.3 mg Q4HR PRN Administration Pain Rated 7-10 Dextrose 1,000 mls @ 100 mls/hr 08/23/24 00:33 Dextrose 5% 1,000 Ml IVPB PRN PRN Hypoglycemia Protocol Azithromycin 500 mg in 250 mls @ 250 mls/hr 08/24/24 09:00 08/26/24 08:57 Zithromax IVPB 250 mls/hr Q24H REJI Administration Piperacillin/Tazobactam/Dextrose 3.375 gm in 50 mls @ 100 mls/hr 08/25/24 17:00 08/26/24 05:54 Zosyn 3.375 Gm/Ns 50 Ml IVPB 100 mls/hr Q6HR REJI Administration Metoprolol Succinate 100 mg 08/26/24 09:00 08/26/24 08:58 Metoprolol Succinate Ext Rel 100 Mg Tabcr PO 100 mg QAM REJI Administration Morphine Sulfate 2 mg 08/23/24 00:33 08/26/24 04:47 Morphine Sulfate (*Crx) 2 Mg/Ml Inj IV PUSH 2 mg Q2H PRN Administration Pain Rated 7-10 Ondansetron HCl 4 mg 08/23/24 00:33 Ondansetron Inj 4 Mg/2 Ml Vial IV PUSH Q4H PRN Nausea Radiology Results: ITS Impressions Chest X-Ray 08/22/24 22:45 IMPRESSION: Pulmonary opacities may represent edema, probably with a component of atelectasis. Infection not excluded. Trace left effusion. Chest/Abdomen/Pelvis CTA 08/22/24 22:59 IMPRESSION: Subsegmental lingular consolidation suspicious for pneumonia or aspiration. Segmental and subsegmental left lower lobe pulmonary arteries not adequately assessed due to motion. No pulmonary embolus detected in the adequately visualized pulmonary arteries. Moderate bilateral pleural effusions. Asymmetric right gynecomastia, consider nonemergent mammography and breast ultrasound. Multiple splenic hypodensities, presumably related to cysts or hemangiomas. Infection or metastatic disease considered less likely. Bilateral indeterminate renal lesions, recommend nonemergent MRI or CT with and without contrast for further characterization. Small bowel obstruction, transition point at a moderate sized umbilical hernia that contains a loop of small bowel. Mild ascites. Abdomen X-Ray 08/23/24 05:36 Impression: NG tube in satisfactory position. Probable small bowel obstruction. Labs Labs: Laboratory Results - last 24 hr 08/25/24 08/25/24 08/25/24 11:53 17:50 18:26 WBC RBC Hgb Hct MCV MCH MCHC RDW Plt Count MPV Immature Gran % (Auto) Neut % (Auto) Lymph % (Auto) [place] % (Auto) Eos % (Auto) Baso % (Auto) Lymph # (Auto) [place] # (Auto) Eos # (Auto) Baso # (Auto) Abs Immat Gran (auto) Absolute Neuts (auto) Absolute Nucleated RBC Total Counted Neutrophils % (Manual) Band Neutrophils % Lymphocytes % (Manual) Monocytes % (Manual) Eosinophils % (Manual) Basophils % (Manual) Nucleated RBC % Abs Neuts (Manual) Abs Lymphs (Manual) Abs Monocytes (Manual) Absolute Eos (Manual) Abs Basophils (Manual) Smudge Cells Platelet Estimate Hypochromasia Schistocytes Sodium Potassium Chloride Carbon Dioxide Anion Gap BUN Creatinine Estim Creat Clear Calc Estimated GFR Glucose POC Capillary Glucose 70 121 H 115 H Calcium Total Bilirubin AST ALT Alkaline Phosphatase Total Protein Albumin 08/26/24 08/26/24 00:31 07:55 WBC 15.0 H RBC 4.48 L Hgb 12.3 L Hct 39.3 L MCV 87.7 MCH 27.5 MCHC 31.3 L RDW 14.2 Plt Count 240 MPV 9.6 Immature Gran % (Auto) Not Reportable Neut % (Auto) Not Reportable Lymph % (Auto) Not Reportable [place] % (Auto) Not Reportable Eos % (Auto) Not Reportable Baso % (Auto) Not Reportable Lymph # (Auto) Not Reportable [place] # (Auto) Not Reportable Eos # (Auto) Not Reportable Baso # (Auto) Not Reportable Abs Immat Gran (auto) Not Reportable Absolute Neuts (auto) Not Reportable Absolute Nucleated RBC Not Reportable Total Counted 100 Neutrophils % (Manual) 65 Band Neutrophils % 0 Lymphocytes % (Manual) 31 Monocytes % (Manual) 3 Eosinophils % (Manual) 1 Basophils % (Manual) 0 Nucleated RBC % Not Reportable Abs Neuts (Manual) 9.75 H Abs Lymphs (Manual) 4.65 H Abs Monocytes (Manual) 0.45 Absolute Eos (Manual) 0.15 Abs Basophils (Manual) 0.00 Smudge Cells Airway Traffic Controller Platelet Estimate Adequate Hypochromasia 1+ Schistocytes None seen Sodium 135 L Potassium 3.4 Chloride 98 Carbon Dioxide 34 H Anion Gap 3 L BUN 17 Creatinine 0.88 Estim Creat Clear Calc 57 Estimated GFR > 60 Glucose 113 H POC Capillary Glucose 140 H Calcium 7.5 L Total Bilirubin 1.0 AST 26 ALT 15 Alkaline Phosphatase 64 Total Protein 6.0 L Albumin 3.0 L
[2024-08-26 10:28] LABS: Glucose Point of Care 190 mg/dl (65-105)
[2024-08-26 14:00] VITALS: BP 113/63; PULSE 71; RESP 22; TEMP 36.8; O2SAT 92
[2024-08-26 16:52] VITALS: PULSE 78
[2024-08-26] MEDS: carvediloL 6.25 MG TABLET PO (16:52)
[2024-08-26 18:25] LABS: Glucose Point of Care 144 mg/dl (65-105)
[2024-08-26] MEDS: ROSUVASTATIN 10 MG TABLET PO (20:38)
[2024-08-26 21:34] VITALS: BP 106/51; PULSE 85; RESP 20; TEMP 36.8; O2SAT 93
[2024-08-27] MEDS: PIPERACILLN/TAZ 3.375GM/NS50ML 3.375 GM/50 ML BAG IVPB ×5 (00:25→23:56)
[2024-08-27 01:02] LABS: Glucose Point of Care 146 mg/dl (65-105)
[2024-08-27 05:35] VITALS: BP 130/63; PULSE 71; RESP 20; TEMP 36.2; O2SAT 93
[2024-08-27 05:38] LABS: Glucose Point of Care 117 mg/dl (65-105)
[2024-08-27 06:56] LABS: Basophils Absolute Auto 0.1 K/mm3 (0.0-0.1); Basophils Percent Auto 0.4 % (0.2-1.2); Eosinophils Absolute Auto 0.4 K/mm3 (0-0.3); Eosinophils Percent Auto 3.5 % (0-4.4); Hematocrit 39.4 % (42.0-52.0); Hemoglobin 12.4 g/dL (14.0-18.0); Immature Granulocyte Absolute 0.04 K/mm3 (0.00-0.031); Immature Granulocyte Percent A 0.3 % (0-0.5); Lymphocytes Absolute Auto 3.54 K/mm3 (0.9-3.2); Lymphocytes Percent Auto 27.9 % (18.3-44.2); Mean Corpuscular HGB Conc 31.5 g/dl (32-36); Mean Corpuscular Hemoglobin 28.1 pg (26-34); Mean Corpuscular Volume 89.3 fl (80-100); Monocytes Absolute Auto 1.3 K/mm3 (0.1-0.6); Monocytes Percent Auto 10.5 % (2.6-8.5); Neutrophils Absolute Auto 7.3 K/mm3 (1.3-6.7); Neutrophils Percent Auto 57.4 % (45.5-73.1); Platelet Count Result 237 k/mm3 (150-375); Red Blood Count 4.41 M/mm3 (4.6-6.20); Red Cell Distribution Width 14.2 % (11.5-14.5); White Blood Count 12.7 K/mm3 (4.5-10.0)
[2024-08-27 07:14] LABS: Alanine Aminotransferase 17 U/L (6-50); Alkaline Phosphatase 52 U/L (38-126); Anion Gap 5 mmol/L (4-12); Aspartate Amino Transferase 36 U/L (17-59); Bilirubin,Total 0.9 mg/dL (0.2-1.3); Blood Urea Nitrogen 9 mg/dL (9-20); Calcium 7.4 mg/dL (8.4-10.2); Carbon Dioxide 34 mmol/L (22-30); Chloride 98 mmol/L (98-107); Estimated CRCL calculation 67 ml/min; Estimated Glomerular Filt Rate > 60; Glucose 102 mg/dL (65-110); Potassium 2.9 mmol/L (3.4-5.0); Sodium 137 mmol/L (137-145)
--- NOTE | 2024-08-27 10:03 | P.PNIM_ITS ---
Progress Note: A&P Assessment and Plan (1) Acute exacerbation of CHF (congestive heart failure): Qualifiers: Heart failure type: unspecified Qualified Code(s): I50.9 - Heart failure, unspecified Code(s): I50.9 - Heart failure, unspecified Status: Acute (2) Pneumonia: Qualifiers: Laterality: bilateral Lung location: lower lobe of lung Pneumonia type: due to unspecified organism Qualified Code(s): J18.9 - Pneumonia, unspecified organism Code(s): J18.9 - Pneumonia, unspecified organism Status: Acute (3) Small bowel obstruction: Code(s): K56.609 - Unspecified intestinal obstruction, unspecified as to partial versus complete obstruction Status: Acute (4) Atrial fibrillation with RVR: Code(s): I48.91 - Unspecified atrial fibrillation Status: Acute Plan Acute exacerbation of combined CHF Code(s): I50.9 - Heart failure, unspecified Status: Acute Assessment and Plan: ProBNP 7570 Chest x-ray showing pulmonary opacities representing edema Chest/abdomen/pelvis CTA showed moderate bilateral pleural effusions, subsegmental lingular consolidation suspicious for pneumonia or aspiration Left echocardiogram on 08/23 showed ventricular systolic function is mildly reduced, estimated at 40-45%. The left ventricular diastolic function is grade I diastolic dysfunction. Consulted air support operations operator, Received Lasix IV, changed to Lasix 40 mg daily p.o. per air support operations operator recommendation on08/26 Hypokalemia Replete with potassium chloride. Potassium 2.9 replete with potassium chloride 40 mg IV once and 40 mg b.i.d. p.o. Follow-up BMP, Correct electrolyte abnormality accordingly Elevated troponin: Code(s): R79.89 - Other specified abnormal findings of blood chemistry Status: Acute Assessment and Plan: Troponin 0.058 Likely demand ischemia No further inpatient cardiac workup per air support operations operator recommendation Atrial fibrillation with RVR: Code(s): I48.91 - Unspecified atrial fibrillation Status: Acute Assessment and Plan: EKG showing sinus tach with occasional ventricular premature complexes with frequent supraventricular premature complexes, right bundle branch block, left posterior fascicular block with a rate of 111, QTC 499 according to the EKG read on printout. It was determined that the patient was in AFib RVR while in the ED. was also noted to be in AFib RVR at [facility] however left AMA before treatment. This is new onset. Patient was given Cardizem bolus and started on Cardizem drip at 5 mg/hour Cardiology consulted Recommend Toprol 100 mg daily, Small bowel obstruction: Code(s): K56.609 - Unspecified intestinal obstruction, unspecified as to partial versus complete obstruction Status: Acute Assessment and Plan: Chest/abdomen/pelvis CTA showed small bowel obstruction with transition point at a moderate-sized umbilical hernia that contains a loop of small bowel General surgery consulted Was on NG tube placed to low intermittent suction with green bilious drainage Received D5 1/2 normal saline at 50 mL/hour D1 Status post umbilical hernia repair 08/25. Patient still on NG tube suction intermittently 08/25 NG tube is removed, advance diet per General surgery recommendation 08/26 (5) Umbilical hernia: Code(s): K42.9 - Umbilical hernia without obstruction or gangrene Status: Acute Assessment and Plan: Was reducible in the ER however when he coughed or sat up, hernia returned. General surgery consulted Status post umbilical hernia repair 08/24 Pneumonia: Code(s): J18.9 - Pneumonia, unspecified organism Status: Acute Assessment and Plan: Chest x-ray showing pulmonary opacities representing edema versus infection Chest/abdomen/pelvis CTA was negative for PE, showed moderate bilateral pleural effusion, subsegmental lingular consolidation suspicious for pneumonia or aspi ration Continue Zosyn and azithromycin IV since 08/24 Leukocytosis persists, is trending down. Will change to oral antibiotics tomorrow if patient condition continues to improve (7) Elevated d-dimer: Code(s): R79.89 - Other specified abnormal findings of blood chemistry Status: Acute Assessment and Plan: D-dimer 4.21 CTA of the abdomen/pelvis/chest was negative for PE Elevated bilirubin: Code(s): R17 - Unspecified jaundice Status: Acute Assessment and Plan: Total bilirubin 1.4 Continue to trend Elevated lipase: Code(s): R74.8 - Abnormal levels of other serum enzymes Status: Acute Assessment and Plan: Lipase elevated at 351 CT does not show acute pancreatitis Hyperlipidemia: Code(s): E78.5 - Hyperlipidemia, unspecified Status: Chronic Assessment and Plan: Resume home medications Vitamin D deficiency: Code(s): E55.9 - Vitamin D deficiency, unspecified Status: Chronic Assessment and Plan: hold vitamin-D 3 for now Hypertension: Code(s): I10 - Essential (primary) hypertension Status: Chronic Assessment and Plan: Continue to monitor, adjust medication chronic Subjective Date/time seen: 08/27/24 10:03 Interval history: I saw examined the patient. patient ate solid for today. Patient denies abdomen pain, nausea vomiting. Patient denies chest pain shortness of breath, abdomen pain nausea vomiting Afebrile, leukocytosis trending down 12.7 patient room air. Labs reviewed, potassium 2.9 Exam Narrative: GENERAL: Pleasant, in no acute distress. Well-nourished. - EYES: EOMI. Anicteric. - HENT: Moist mucous membranes. - LUNGS: Lungs clear bilaterally - CARDIOVASCULAR: Regular rate and rhyth m. No murmur. No JVD. - ABDOMEN: Soft, non-tender and non-dist ended. No palpable masses. - EXTREMITIES: No edema. Peripheral puls es 2+. Non-tender. - NEUROLOGIC: No focal neurological defi cits. CN II-XII grossly intact. - PSYCHIATRIC: Awake, Alert and oriented x 3. Appropriate mood and affect. - SKIN: No rashes or lesions. Warm. - LYMPH: No cervical lymphadenopathy. Objective Data Vital Signs Vital Signs: Vital Signs - 24 hr 08/26/24 14:00 08/26/24 15:28 08/26/24 16:52 Temperature 98.2 F Pulse Rate 71 78 Respiratory Rate 22 H Blood Pressure 113/63 Pulse Oximetry 92 Oxygen Delivery Room Air 08/26/24 21:34 08/27/24 05:35 Temperature 98.2 F 97.1 F L Pulse Rate 85 71 Respiratory Rate 20 20 Blood Pressure 106/51 L 130/63 Pulse Oximetry 93 93 Oxygen Delivery Intake/Output Intake/Output: Intake & Output 08/24/24 08/25/24 08/26/24 08/27/24 23:59 23:59 23:59 23:59 Intake Total 1421.6 1040 3240 350 Output Total 1000 1300 225 Balance 421.6 -260 3015 350 Meds/Results Medications: Active Medications Generic Name Dose Route Start Last Admin Trade Name Freq PRN Reason Stop Dose Admin Acetaminophen 650 mg 08/23/24 00:33 Acetaminophen 650 Mg Suppository RECTAL Q6H PRN Mild Pain (1-3) or Fever Acetaminophen 650 mg 08/23/24 00:37 08/26/24 09:25 Acetaminophen 325 Mg Tablet PO 650 mg Q4H PRN Administration Mild Pain (1-3) or Fever Albuterol 2 puff 08/23/24 02:18 Albuterol Sulfate (*Sp) Aerosol 1 Puff INHALATION Q6HRT PRN shortness of breath or wheezing Aspirin 81 mg 08/27/24 09:00 Aspirin 81 Mg Chewable Tablet PO DAILY REJI Carvedilol 6.25 mg 08/26/24 17:00 08/26/24 16:52 Carvedilol 6.25 Mg Tablet PO 6.25 mg BID REJI Administration Dextrose 12.5 gm 08/23/24 00:33 Dextrose 50% 25 Gm/50 Ml Syringe IV PUSH PRN PRN Hypoglycemia Protocol Furosemide 40 mg 08/25/24 09:00 08/26/24 08:57 Furosemide 40 Mg Tablet PO 40 mg DAILY REJI Administration Glucagon 1 mg 08/23/24 00:33 Glucagon For Inj 1 Mg Vial IM PRN PRN Hypoglycemia Protocol Glucose 15 gm 08/23/24 00:33 Glucose Oral Gel 15 Gm Of Glucse In 37.5 Gm Tube PO PRN PRN Hypoglycemia Protocol Hydromorphone HCl 0.3 mg 08/23/24 09:22 08/25/24 20:52 Hydromorphone Hcl Inj (*Crx) 1 Mg/Ml Syr IV PUSH 0.3 mg Q4HR PRN Administration Pain Rated 7-10 Dextrose 1,000 mls @ 100 mls/hr 08/23/24 00:33 Dextrose 5% 1,000 Ml IVPB PRN PRN Hypoglycemia Protocol Azithromycin 500 mg in 250 mls @ 250 mls/hr 08/24/24 09:00 08/26/24 08:57 Zithromax IVPB 250 mls/hr Q24H REJI Administration Piperacillin/Tazobactam/Dextrose 3.375 gm in 50 mls @ 100 mls/hr 08/25/24 17:00 08/27/24 05:11 Zosyn 3.375 Gm/Ns 50 Ml IVPB 100 mls/hr Q6HR REJI Administration Metoprolol Succinate 100 mg 08/26/24 09:00 08/26/24 08:58 Metoprolol Succinate Ext Rel 100 Mg Tabcr PO 100 mg QAM REJI Administration Ondansetron HCl 4 mg 08/23/24 00:33 Ondansetron Inj 4 Mg/2 Ml Vial IV PUSH Q4H PRN Nausea Oxycodone HCl 5 mg 08/27/24 09:56 Oxycodone Hcl (*Crx) 5 Mg Tab Ir PO Q4H PRN Pain Rated 7-10 Rosuvastatin Calcium 10 mg 08/26/24 21:00 08/26/24 20:38 Rosuvastatin 10 Mg Tablet PO 10 mg HS REJI Administration Radiology Results: ITS Impressions Chest X-Ray 08/22/24 22:45 IMPRESSION: Pulmonary opacities may represent edema, probably with a component of atelectasis. Infection not excluded. Trace left effusion. Chest/Abdomen/Pelvis CTA 08/22/24 22:59 IMPRESSION: Subsegmental lingular consolidation suspicious for pneumonia or aspiration. Segmental and subsegmental left lower lobe pulmonary arteries not adequately assessed due to motion. No pulmonary embolus detected in the adequately visualized pulmonary arteries. Moderate bilateral pleural effusions. Asymmetric right gynecomastia, consider nonemergent mammography and breast ultrasound. Multiple splenic hypodensities, presumably related to cysts or hemangiomas. Infection or metastatic disease considered less likely. Bilateral indeterminate renal lesions, recommend nonemergent MRI or CT with and without contrast for further characterization. Small bowel obstruction, transition point at a moderate sized umbilical hernia that contains a loop of small bowel. Mild ascites. Abdomen X-Ray 08/23/24 05:36 Impression: NG tube in satisfactory position. Probable small bowel obstruction. Head CT 08/27/24 00:01 IMPRESSION: No acute intracranial findings. Labs Labs: Laboratory Results - last 24 hr 08/26/24 08/26/24 08/27/24 10:25 18:22 00:46 WBC RBC Hgb Hct MCV MCH MCHC RDW Plt Count MPV Immature Gran % (Auto) Neut % (Auto) Lymph % (Auto) [place] % (Auto) Eos % (Auto) Baso % (Auto) Lymph # (Auto) [place] # (Auto) Eos # (Auto) Baso # (Auto) Abs Immat Gran (auto) Absolute Neuts (auto) Absolute Nucleated RBC Nucleated RBC % Sodium Potassium Chloride Carbon Dioxide Anion Gap BUN Creatinine Estim Creat Clear Calc Estimated GFR Glucose POC Capillary Glucose 190 H 144 H 146 H Calcium Total Bilirubin AST ALT Alkaline Phosphatase Total Protein Albumin 08/27/24 08/27/24 05:18 06:24 WBC 12.7 H RBC 4.41 L Hgb 12.4 L Hct 39.4 L MCV 89.3 MCH 28.1 MCHC 31.5 L RDW 14.2 Plt Count 237 MPV 10.0 Immature Gran % (Auto) 0.3 Neut % (Auto) 57.4 Lymph % (Auto) 27.9 [place] % (Auto) 10.5 H Eos % (Auto) 3.5 Baso % (Auto) 0.4 Lymph # (Auto) 3.54 H [place] # (Auto) 1.3 H Eos # (Auto) 0.4 H Baso # (Auto) 0.1 Abs Immat Gran (auto) 0.04 H Absolute Neuts (auto) 7.3 H Absolute Nucleated RBC 0.000 Nucleated RBC % 0.0 Sodium 137 Potassium 2.9 L Chloride 98 Carbon Dioxide 34 H Anion Gap 5 BUN 9 D Creatinine 0.75 Estim Creat Clear Calc 67 Estimated GFR > 60 Glucose 102 POC Capillary Glucose 117 H Calcium 7.4 L Total Bilirubin 0.9 AST 36 ALT 17 Alkaline Phosphatase 52 Total Protein 6.0 L Albumin 3.0 L
[2024-08-27 10:38] VITALS: PULSE 71
[2024-08-27] MEDS: FUROSEMIDE 40 MG TABLET PO (10:38)
[2024-08-27] MEDS: METOPROLOL SUCCINATE EXT REL 100 MG TABCR PO (10:38)
[2024-08-27] MEDS: carvediloL 6.25 MG TABLET PO ×2 (10:38→17:05)
[2024-08-27] MEDS: AZITHROMYCIN 500 MG/NS 250 ML 500 MG/250 ML BAG 250 MG IVPB (10:38)
[2024-08-27] MEDS: oxyCODONE HCL (*CRX) 5 MG TAB IR PO (10:40)
[2024-08-27] MEDS: ASPIRIN 81 MG CHEWABLE TABLET PO (10:41)
[2024-08-27 11:59] LABS: Glucose Point of Care 187 mg/dl (65-105)
[2024-08-27] MEDS: POTASSIUM CHLORIDE 20 MEQ PACKET (FOR LIQUID) 40 MEQ PO ×2 (13:56→17:03)
[2024-08-27] MEDS: POTASSIUM CHLORIDE INJ 40 MEQ in SODIUM CHLORIDE 0.9% IV 500 ML 75 MEQ IVPB (13:56)
[2024-08-27 14:00] VITALS: BP 110/68; PULSE 86; RESP 20; TEMP 36.2; O2SAT 96
--- NOTE | 2024-08-27 15:47 | P.PN_ITS ---
Progress Note: A&P Assessment and Plan (1) Incarcerated umbilical hernia: Code(s): K42.0 - Umbilical hernia with obstruction, without gangrene Status: Acute Assessment and Plan: Status post transabdominal retrorectus repair of incarcerated umbilical hernia with postop day 3. From a General surgery standpoint he seems to be doing well. He can be discharged home with medical condition has been optimized. Hopefully that will be tomorrow. (2) Small bowel obstruction: Code(s): K56.609 - Unspecified intestinal obstruction, unspecified as to partial versus complete obstruction Status: Acute Assessment and Plan: Resolved. Subjective Date/time seen: 08/27/24 15:47 Interval history: Patient seems to be doing pretty well. Tolerating solid food. Hospitalist is infused a bolus of potassium due to hypokalemia today. Otherwise the patient has no complaints. Exam GI: Other: Abdomen is soft and nondistended. Port site incisions healing well. Abdominal binder is in place. Objective Data Vital Signs Vital Signs: Vital Signs - 24 hr 08/26/24 16:52 08/26/24 21:34 08/27/24 05:35 Temperature 36.8 C 36.2 C L Pulse Rate 78 85 71 Respiratory Rate 20 20 Blood Pressure 106/51 L 130/63 Pulse Oximetry 93 93 08/27/24 10:38 08/27/24 10:38 Temperature Pulse Rate 71 71 Respiratory Rate Blood Pressure Pulse Oximetry Intake/Output Intake/Output: Intake & Output 08/24/24 08/25/24 08/26/24 08/27/24 23:59 23:59 23:59 23:59 Intake Total 1421.6 1040 3490 760 Output Total 1000 1300 225 Balance 421.6 -260 3265 760 Meds/Results Medications: Active Medications Generic Name Dose Route Start Last Admin Trade Name Freq PRN Reason Stop Dose Admin Acetaminophen 650 mg 08/23/24 00:33 Acetaminophen 650 Mg Suppository RECTAL Q6H PRN Mild Pain (1-3) or Fever Acetaminophen 650 mg 08/23/24 00:37 08/26/24 09:25 Acetaminophen 325 Mg Tablet PO 650 mg Q4H PRN Administration Mild Pain (1-3) or Fever Albuterol 2 puff 08/23/24 02:18 Albuterol Sulfate (*Sp) Aerosol 1 Puff INHALATION Q6HRT PRN shortness of breath or wheezing Aspirin 81 mg 08/27/24 09:00 08/27/24 10:41 Aspirin 81 Mg Chewable Tablet PO 81 mg DAILY REJI Administration Carvedilol 6.25 mg 08/26/24 17:00 08/27/24 10:38 Carvedilol 6.25 Mg Tablet PO 6.25 mg BID REJI Administration Dextrose 12.5 gm 08/23/24 00:33 Dextrose 50% 25 Gm/50 Ml Syringe IV PUSH PRN PRN Hypoglycemia Protocol Furosemide 40 mg 08/25/24 09:00 08/27/24 10:38 Furosemide 40 Mg Tablet PO 40 mg DAILY REJI Administration Glucagon 1 mg 08/23/24 00:33 Glucagon For Inj 1 Mg Vial IM PRN PRN Hypoglycemia Protocol Glucose 15 gm 08/23/24 00:33 Glucose Oral Gel 15 Gm Of Glucse In 37.5 Gm Tube PO PRN PRN Hypoglycemia Protocol Hydromorphone HCl 0.3 mg 08/23/24 09:22 08/25/24 20:52 Hydromorphone Hcl Inj (*Crx) 1 Mg/Ml Syr IV PUSH 0.3 mg Q4HR PRN Administration Pain Rated 7-10 Dextrose 1,000 mls @ 100 mls/hr 08/23/24 00:33 Dextrose 5% 1,000 Ml IVPB PRN PRN Hypoglycemia Protocol Azithromycin 500 mg in 250 mls @ 250 mls/hr 08/24/24 09:00 08/27/24 10:38 Zithromax IVPB 250 mls/hr Q24H REJI Administration Piperacillin/Tazobactam/Dextrose 3.375 gm in 50 mls @ 100 mls/hr 08/25/24 17:00 08/27/24 13:55 Zosyn 3.375 Gm/Ns 50 Ml IVPB 100 mls/hr Q6HR REJI Administration Potassium Chloride 40 meq/ 520 mls @ 130 mls/hr 08/27/24 13:02 08/27/24 13:56 Sodium Chloride IVPB 08/27/24 17:01 75 mls/hr ONCE ONE Administration Metoprolol Succinate 100 mg 08/26/24 09:00 08/27/24 10:38 Metoprolol Succinate Ext Rel 100 Mg Tabcr PO 100 mg QAM REJI Administration Ondansetron HCl 4 mg 08/23/24 00:33 Ondansetron Inj 4 Mg/2 Ml Vial IV PUSH Q4H PRN Nausea Oxycodone HCl 5 mg 08/27/24 09:56 08/27/24 10:40 Oxycodone Hcl (*Crx) 5 Mg Tab Ir PO 5 mg Q4H PRN Administration Pain Rated 7-10 Potassium Chloride 40 meq 08/27/24 13:05 08/27/24 13:56 Potassium Chloride 20 Meq Packet (For Liquid) PO 40 meq BID REJI Administration Rosuvastatin Calcium 10 mg 08/26/24 21:00 08/26/24 20:38 Rosuvastatin 10 Mg Tablet PO 10 mg HS REJI Administration Radiology Results: ITS Impressions Chest X-Ray 08/22/24 22:45 IMPRESSION: Pulmonary opacities may represent edema, probably with a component of atelectasis. Infection not excluded. Trace left effusion. Chest/Abdomen/Pelvis CTA 08/22/24 22:59 IMPRESSION: Subsegmental lingular consolidation suspicious for pneumonia or aspiration. Segmental and subsegmental left lower lobe pulmonary arteries not adequately assessed due to motion. No pulmonary embolus detected in the adequately visualized pulmonary arteries. Moderate bilateral pleural effusions. Asymmetric right gynecomastia, consider nonemergent mammography and breast ultrasound. Multiple splenic hypodensities, presumably related to cysts or hemangiomas. Infection or metastatic disease considered less likely. Bilateral indeterminate renal lesions, recommend nonemergent MRI or CT with and without contrast for further characterization. Small bowel obstruction, transition point at a moderate sized umbilical hernia that contains a loop of small bowel. Mild ascites. Abdomen X-Ray 08/23/24 05:36 Impression: NG tube in satisfactory position. Probable small bowel obstruction. Head CT 08/27/24 00:01 IMPRESSION: No acute intracranial findings. Labs Labs: Laboratory Results - last 24 hr 08/26/24 08/27/24 08/27/24 18:22 00:46 05:18 WBC RBC Hgb Hct MCV MCH MCHC RDW Plt Count MPV Immature Gran % (Auto) Neut % (Auto) Lymph % (Auto) [place] % (Auto) Eos % (Auto) Baso % (Auto) Lymph # (Auto) [place] # (Auto) Eos # (Auto) Baso # (Auto) Abs Immat Gran (auto) Absolute Neuts (auto) Absolute Nucleated RBC Nucleated RBC % Sodium Potassium Chloride Carbon Dioxide Anion Gap BUN Creatinine Estim Creat Clear Calc Estimated GFR Glucose POC Capillary Glucose 144 H 146 H 117 H Calcium Total Bilirubin AST ALT Alkaline Phosphatase Total Protein Albumin 08/27/24 08/27/24 06:24 11:55 WBC 12.7 H RBC 4.41 L Hgb 12.4 L Hct 39.4 L MCV 89.3 MCH 28.1 MCHC 31.5 L RDW 14.2 Plt Count 237 MPV 10.0 Immature Gran % (Auto) 0.3 Neut % (Auto) 57.4 Lymph % (Auto) 27.9 [place] % (Auto) 10.5 H Eos % (Auto) 3.5 Baso % (Auto) 0.4 Lymph # (Auto) 3.54 H [place] # (Auto) 1.3 H Eos # (Auto) 0.4 H Baso # (Auto) 0.1 Abs Immat Gran (auto) 0.04 H Absolute Neuts (auto) 7.3 H Absolute Nucleated RBC 0.000 Nucleated RBC % 0.0 Sodium 137 Potassium 2.9 L Chloride 98 Carbon Dioxide 34 H Anion Gap 5 BUN 9 D Creatinine 0.75 Estim Creat Clear Calc 67 Estimated GFR > 60 Glucose 102 POC Capillary Glucose 187 H Calcium 7.4 L Total Bilirubin 0.9 AST 36 ALT 17 Alkaline Phosphatase 52 Total Protein 6.0 L Albumin 3.0 L
[2024-08-27 17:05] VITALS: PULSE 86
[2024-08-27 18:53] LABS: Glucose Point of Care 119 mg/dl (65-105)
[2024-08-27] MEDS: ROSUVASTATIN 10 MG TABLET PO (20:44)
[2024-08-27] MEDS: HYDROmorphone HCL INJ (*CRX) 1 MG/ML SYR 0.3 MG IV PUSH (20:44)
[2024-08-27 21:14] VITALS: BP 96/78; PULSE 82; RESP 18; TEMP 36.2; O2SAT 98
[2024-08-27 23:35] LABS: Glucose Point of Care 132 mg/dl (65-105)
[2024-08-28 05:22] VITALS: BP 93/51; PULSE 79; RESP 18; TEMP 36.7; O2SAT 93
[2024-08-28] MEDS: PIPERACILLN/TAZ 3.375GM/NS50ML 3.375 GM/50 ML BAG IVPB (05:27)
[2024-08-28] MEDS: HYDROmorphone HCL INJ (*CRX) 1 MG/ML SYR 0.3 MG IV PUSH ×2 (05:37→09:22)
[2024-08-28 05:57] LABS: Glucose Point of Care 123 mg/dl (65-105)
[2024-08-28 05:59] LABS: Basophils Absolute Auto 0.1 K/mm3 (0.0-0.1); Basophils Percent Auto 0.5 % (0.2-1.2); Eosinophils Absolute Auto 0.5 K/mm3 (0-0.3); Eosinophils Percent Auto 4.1 % (0-4.4); Hemoglobin 11.3 g/dL (14.0-18.0); Immature Granulocyte Absolute 0.04 K/mm3 (0.00-0.031); Immature Granulocyte Percent A 0.4 % (0-0.5); Lymphocytes Absolute Auto 3.77 K/mm3 (0.9-3.2); Lymphocytes Percent Auto 34.3 % (18.3-44.2); Mean Corpuscular HGB Conc 31.4 g/dl (32-36); Mean Corpuscular Volume 89.3 fl (80-100); Mean Platelet Volume 9.8 fl (7.4-10.4); Monocytes Absolute Auto 1.1 K/mm3 (0.1-0.6); Monocytes Percent Auto 9.8 % (2.6-8.5); Neutrophils Absolute Auto 5.6 K/mm3 (1.3-6.7); Neutrophils Percent Auto 50.9 % (45.5-73.1); Platelet Count Result 278 k/mm3 (150-375); Red Blood Count 4.03 M/mm3 (4.6-6.20); Red Cell Distribution Width 14.3 % (11.5-14.5)
[2024-08-28 06:14] LABS: Alanine Aminotransferase 19 U/L (6-50); Albumin Level 3.1 g/dL (3.5-5.1); Alkaline Phosphatase 57 U/L (38-126); Anion Gap 5 mmol/L (4-12); Aspartate Amino Transferase 34 U/L (17-59); Bilirubin,Total 0.5 mg/dL (0.2-1.3); Blood Urea Nitrogen 7 mg/dL (9-20); Calcium 7.4 mg/dL (8.4-10.2); Carbon Dioxide 29 mmol/L (22-30); Chloride 102 mmol/L (98-107); Estimated CRCL calculation 72 ml/min; Estimated Glomerular Filt Rate > 60; Glucose 112 mg/dL (65-110); Potassium 3.7 mmol/L (3.4-5.0); Sodium 136 mmol/L (137-145)
[2024-08-28 09:00] VITALS: BP 124/65
[2024-08-28] MEDS: AZITHROMYCIN 500 MG/NS 250 ML 500 MG/250 ML BAG 250 MG IVPB (09:04)
[2024-08-28 09:10] VITALS: PULSE 82
[2024-08-28] MEDS: METOPROLOL SUCCINATE EXT REL 100 MG TABCR PO (09:10)
[2024-08-28] MEDS: carvediloL 6.25 MG TABLET PO (09:10)
[2024-08-28] MEDS: ASPIRIN 81 MG CHEWABLE TABLET PO (09:10)
[2024-08-28] MEDS: FUROSEMIDE 40 MG TABLET PO (09:11)
[2024-08-28] MEDS: POTASSIUM CHLORIDE 20 MEQ PACKET (FOR LIQUID) 40 MEQ PO (09:11)
--- NOTE | 2024-08-28 10:28 | WPDPN ---
Progress Note: A&P Assessment and Plan (1) Small bowel obstruction: Code(s): K56.609 - Unspecified intestinal obstruction, unspecified as to partial versus complete obstruction Status: Acute Assessment and Plan: Resolved after robotic assisted laparoscopic incarcerated umbilical hernia repair with mesh. Tolerating diet now. Having bowel movements. Can be discharged from the hospital from a general surgery standpoint at the discretion of the hospitalist service. Patient will need to follow-up see Dr. Lewis in the office in about 2 weeks. Discharge instructions written. (2) Incarcerated umbilical hernia: Code(s): K42.0 - Umbilical hernia with obstruction, without gangrene Status: Acute Assessment and Plan: Status post robotic assisted laparoscopic transabdominal retrorectus placement of mesh. Subjective Date/time seen: 08/28/24 10:28 Interval history: Patient is doing well today. Getting up out of bed to sit in a chair now. Tolerating regular food. Had some bowel movements. Exam GI: Other: Abdomen is soft and nondistended. Port sites are well healed. Abdominal binder is in place. No redness or drainage from his incisions. Objective Data Vital Signs Vital Signs: Vital Signs - 24 hr 08/27/24 10:38 08/27/24 10:38 08/27/24 14:00 Temperature 36.2 C L Pulse Rate 71 71 86 Respiratory Rate 20 Blood Pressure 110/68 Pulse Oximetry 96 Oxygen Delivery 08/27/24 17:05 08/27/24 20:23 08/27/24 21:14 Temperature 36.2 C L Pulse Rate 86 82 Respiratory Rate 18 Blood Pressure 96/78 L Pulse Oximetry 98 Oxygen Delivery Room Air 08/28/24 05:22 08/28/24 09:00 08/28/24 09:10 Temperature 36.7 C Pulse Rate 79 82 Respiratory Rate 18 Blood Pressure 93/51 L 124/65 Pulse Oximetry 93 Oxygen Delivery 08/28/24 09:10 Temperature Pulse Rate 82 Respiratory Rate Blood Pressure Pulse Oximetry Oxygen Delivery Intake/Output Intake/Output: Intake & Output 08/25/24 08/26/24 08/27/24 08/28/24 23:59 23:59 23:59 23:59 Intake Total 1040 3490 1588.7 790 Output Total 2385 163 3224 Balance -260 3265 408.7 790 Meds/Results Medications: Active Medications Generic Name Dose Route Start Last Admin Trade Name Freq PRN Reason Stop Dose Admin Acetaminophen 650 mg 08/23/24 00:33 Acetaminophen 650 Mg Suppository RECTAL Q6H PRN Mild Pain (1-3) or Fever Acetaminophen 650 mg 08/23/24 00:37 08/26/24 09:25 Acetaminophen 325 Mg Tablet PO 650 mg Q4H PRN Administration Mild Pain (1-3) or Fever Albuterol 2 puff 08/23/24 02:18 Albuterol Sulfate (*Sp) Aerosol 1 Puff INHALATION Q6HRT PRN shortness of breath or wheezing Aspirin 81 mg 08/27/24 09:00 08/28/24 09:10 Aspirin 81 Mg Chewable Tablet PO 81 mg DAILY REJI Administration Carvedilol 6.25 mg 08/26/24 17:00 08/28/24 09:10 Carvedilol 6.25 Mg Tablet PO 6.25 mg BID REJI Administration Dextrose 12.5 gm 08/23/24 00:33 Dextrose 50% 25 Gm/50 Ml Syringe IV PUSH PRN PRN Hypoglycemia Protocol Furosemide 40 mg 08/25/24 09:00 08/28/24 09:11 Furosemide 40 Mg Tablet PO 40 mg DAILY REJI Administration Glucagon 1 mg 08/23/24 00:33 Glucagon For Inj 1 Mg Vial IM PRN PRN Hypoglycemia Protocol Glucose 15 gm 08/23/24 00:33 Glucose Oral Gel 15 Gm Of Glucse In 37.5 Gm Tube PO PRN PRN Hypoglycemia Protocol Hydromorphone HCl 0.3 mg 08/23/24 09:22 08/28/24 09:22 Hydromorphone Hcl Inj (*Crx) 1 Mg/Ml Syr IV PUSH 0.3 mg Q4HR PRN Administration Pain Rated 7-10 Dextrose 1,000 mls @ 100 mls/hr 08/23/24 00:33 Dextrose 5% 1,000 Ml IVPB PRN PRN Hypoglycemia Protocol Azithromycin 500 mg in 250 mls @ 250 mls/hr 08/24/24 09:00 08/28/24 09:04 Zithromax IVPB 250 mls/hr Q24H REJI Administration Piperacillin/Tazobactam/Dextrose 3.375 gm in 50 mls @ 100 mls/hr 08/25/24 17:00 08/28/24 05:57 Zosyn 3.375 Gm/Ns 50 Ml IVPB Infused Q6HR REJI Infusion Metoprolol Succinate 100 mg 08/26/24 09:00 08/28/24 09:10 Metoprolol Succinate Ext Rel 100 Mg Tabcr PO 100 mg QAM REJI Administration Ondansetron HCl 4 mg 08/23/24 00:33 Ondansetron Inj 4 Mg/2 Ml Vial IV PUSH Q4H PRN Nausea Oxycodone HCl 5 mg 08/27/24 09:56 08/27/24 10:40 Oxycodone Hcl (*Crx) 5 Mg Tab Ir PO 5 mg Q4H PRN Administration Pain Rated 7-10 Potassium Chloride 40 meq 08/27/24 13:05 08/28/24 09:11 Potassium Chloride 20 Meq Packet (For Liquid) PO 40 meq BID REJI Administration Rosuvastatin Calcium 10 mg 08/26/24 21:00 08/27/24 20:44 Rosuvastatin 10 Mg Tablet PO 10 mg HS REJI Administration Radiology Results: ITS Impressions Chest X-Ray 08/22/24 22:45 IMPRESSION: Pulmonary opacities may represent edema, probably with a component of atelectasis. Infection not excluded. Trace left effusion. Chest/Abdomen/Pelvis CTA 08/22/24 22:59 IMPRESSION: Subsegmental lingular consolidation suspicious for pneumonia or aspiration. Segmental and subsegmental left lower lobe pulmonary arteries not adequately assessed due to motion. No pulmonary embolus detected in the adequately visualized pulmonary arteries. Moderate bilateral pleural effusions. Asymmetric right gynecomastia, consider nonemergent mammography and breast ultrasound. Multiple splenic hypodensities, presumably related to cysts or hemangiomas. Infection or metastatic disease considered less likely. Bilateral indeterminate renal lesions, recommend nonemergent MRI or CT with and without contrast for further characterization. Small bowel obstruction, transition point at a moderate sized umbilical hernia that contains a loop of small bowel. Mild ascites. Abdomen X-Ray 08/23/24 05:36 Impression: NG tube in satisfactory position. Probable small bowel obstruction. Head CT 08/27/24 00:01 IMPRESSION: No acute intracranial findings. Labs Labs: Laboratory Results - last 24 hr 08/27/24 08/27/24 08/27/24 11:55 18:50 23:33 WBC RBC Hgb Hct MCV MCH MCHC RDW Plt Count MPV Immature Gran % (Auto) Neut % (Auto) Lymph % (Auto) [place] % (Auto) Eos % (Auto) Baso % (Auto) Lymph # (Auto) [place] # (Auto) Eos # (Auto) Baso # (Auto) Abs Immat Gran (auto) Absolute Neuts (auto) Absolute Nucleated RBC Nucleated RBC % Sodium Potassium Chloride Carbon Dioxide Anion Gap BUN Creatinine Estim Creat Clear Calc Estimated GFR Glucose POC Capillary Glucose 187 H 119 H 132 H Calcium Total Bilirubin AST ALT Alkaline Phosphatase Total Protein Albumin 08/28/24 08/28/24 05:50 05:54 WBC 11.0 H RBC 4.03 L Hgb 11.3 L Hct 36.0 L MCV 89.3 MCH 28.0 MCHC 31.4 L RDW 14.3 Plt Count 278 MPV 9.8 Immature Gran % (Auto) 0.4 Neut % (Auto) 50.9 Lymph % (Auto) 34.3 [place] % (Auto) 9.8 H Eos % (Auto) 4.1 Baso % (Auto) 0.5 Lymph # (Auto) 3.77 H [place] # (Auto) 1.1 H Eos # (Auto) 0.5 H Baso # (Auto) 0.1 Abs Immat Gran (auto) 0.04 H Absolute Neuts (auto) 5.6 Absolute Nucleated RBC 0.000 Nucleated RBC % 0.0 Sodium 136 L Potassium 3.7 Chloride 102 Carbon Dioxide 29 Anion Gap 5 BUN 7 L Creatinine 0.69 L Estim Creat Clear Calc 72 Estimated GFR > 60 Glucose 112 H POC Capillary Glucose 123 H Calcium 7.4 L Total Bilirubin 0.5 AST 34 ALT 19 Alkaline Phosphatase 57 Total Protein 6.0 L Albumin 3.1 L
[2024-08-28] MEDS: ALBUTEROL SULFATE (*SP) AEROSOL 1 PUFF 2 PUFF INHALATION (11:00)
--- NOTE | 2024-08-28 11:26 | P.DS_ITS ---
DS: Admitting Diagnosis Discharge Date 08/28/24 Admitting Diagnosis (1) Acute exacerbation of CHF (congestive heart failure): Qualifiers: Heart failure type: unspecified Qualified Code(s): I50.9 - Heart failure, unspecified Code(s): I50.9 - Heart failure, unspecified Status: Acute (2) Pneumonia: Qualifiers: Laterality: bilateral Lung location: lower lobe of lung Pneumonia type: due to unspecified organism Qualified Code(s): J18.9 - Pneumonia, unspecified organism Code(s): J18.9 - Pneumonia, unspecified organism Status: Acute (3) Small bowel obstruction: Code(s): K56.609 - Unspecified intestinal obstruction, unspecified as to partial versus complete obstruction Status: Acute (4) Atrial fibrillation with RVR: Code(s): I48.91 - Unspecified atrial fibrillation Status: Acute DS: Discharge Diagnosis Discharge Diagnosis (1) Acute exacerbation of CHF (congestive heart failure): Qualifiers: Heart failure type: unspecified Qualified Code(s): I50.9 - Heart failure, unspecified Code(s): I50.9 - Heart failure, unspecified Status: Acute (2) Pneumonia: Qualifiers: Laterality: bilateral Lung location: lower lobe of lung Pneumonia type: due to unspecified organism Qualified Code(s): J18.9 - Pneumonia, unspecified organism Code(s): J18.9 - Pneumonia, unspecified organism Status: Acute (3) Small bowel obstruction: Code(s): K56.609 - Unspecified intestinal obstruction, unspecified as to partial versus complete obstruction Status: Acute (4) Atrial fibrillation with RVR: Code(s): I48.91 - Unspecified atrial fibrillation Status: Acute DS: Summary Hospital Course Hospital Course: Per H&P: This is a 74-year-old male with a significant past medical history of A fib, hyperlipidemia, hypertension, Vitamin D3 deficiency, CHF, cocaine and marijuana abuse who presented to the hospital with complaint of abdominal pain, vomiting, weakness. Patient states that he went to [facility] about 2 weeks ago for shortness of breath, was given Lasix and sent home. He states he was not feeling well since that time and represented over at [facility] and they noted him to be in A fib with RVR. He left AMA from the ER there due to the 5 hour wait period and came here instead for further evaluation. He denies any fever, chills, diarrhea, abdominal pain, chest pain, shortness a breath. He does endorse nausea, vomiting today. Workup in the hospital included a chest x- ray which showed pulmonary opacities representing edema with component of atelectasis, trace left effusion. Chest/abdomen/pelvis CTA was negative for PE showed a subsegmental lingular consolidation suspicious for pneumonia or aspiration, moderate bilateral pleural effusions, asymmetric right gynecomastia, multiple splenic hypodensities presumably related to cyst or hemangiomas, bilateral indeterminate renal lesions, small bowel obstruction with transition point at a moderate size umbilical hernia that contains a loop of small bowel, mild ascites. Initial labs showed a white blood cell count of 12.9, INR 1.2, D- dimer 4.21, chloride 95, carbon dioxide 35, blood sugar 111, lactic acid was normal at 1.5, total bilirubin 1.4, troponin 0.058, proBNP 7570, lipase 351. UA was obtained which showed 1+ urine protein, 3+ urine glucose, 1+ urine ketones, 6-10 urine RBC. Blood cultures were obtained and pending. EKG showing sinus tach with occasional ventricular premature complexes with frequent supraventricular premature complexes, right bundle branch block, left posterior fascicular block with a rate of 111, QTC 499. ED interpreted the EKG to be AFib with RVR and patient was started on diltiazem bolus and drip, patient was given 1 L of normal saline, 40 mg IV push Lasix, Rocephin, azithromycin while in the ED. patient had NG tube placed while in the ED. The following med issues have been addressed during hospitalization Acute exacerbation of combined CHF Code(s): I50.9 - Heart failure, unspecified Status: Acute Assessment and Plan: ProBNP 7570 Chest x-ray showing pulmonary opacities representing edema Chest/abdomen/pelvis CTA showed moderate bilateral pleural effusions, subsegmental lingular consolidation suspicious for pneumonia or aspiration Left echocardiogram on 08/23 showed ventricular systolic function is mildly reduced, estimated at 40-45%. The left ventricular diastolic function is grade I diastolic dysfunction. Consulted photocopy operator, Received Lasix IV, changed to Lasix 40 mg daily p.o. per photocopy operator recommendation on08/26 Hypokalemia Replete with potassium chloride. Potassium 2.9 replete with potassium chloride 40 mg IV once and 40 mg b.i.d. p.o. Follow-up BMP, corrected today Continue medicine sulfate 20 mg daily p.o. patient is on a p.o. Lasix Recommend patient to see primary care doctor event ache. Repeat BMP per PCP. Correct electrolyte abnormality accordingly Elevated troponin: Code(s): R79.89 - Other specified abnormal findings of blood chemistry Status: Acute Assessment and Plan: Troponin 0.058 Likely demand ischemia No further inpatient cardiac workup per photocopy operator recommendation Atrial fibrillation with RVR: Code(s): I48.91 - Unspecified atrial fibrillation Status: Acute Assessment and Plan: EKG showing sinus tach with occasional ventricular premature complexes with frequent supraventricular premature complexes, right bundle branch block, left posterior fascicular block with a rate of 111, QTC 499 according to the EKG read on printout. It was determined that the patient was in AFib RVR while in the ED. was also noted to be in AFib RVR at [facility] however left AMA before treatment. This is new onset. Patient was given Cardizem bolus and started on Cardizem drip at 5 mg/hour Cardiology consulted Recommend Toprol 100 mg daily, Small bowel obstruction: Code(s): K56.609 - Unspecified intestinal obstruction, unspecified as to partial versus complete obstruction Status: Acute Assessment and Plan: Chest/abdomen/pelvis CTA showed small bowel obstruction with transition point at a moderate-sized umbilical hernia that contains a loop of small bowel General surgery consulted Was on NG tube placed to low intermittent suction with green bilious drainage Received D5 1/2 normal saline at 50 mL/hour D1 Status post umbilical hernia repair 08/25. Patient still on NG tube suction intermittently 08/25 NG tube is removed, advance diet per General surgery recommendation 08/26 Patient tolerated diet well (5) Umbilical hernia: Code(s): K42.9 - Umbilical hernia without obstruction or gangrene Status: Acute Assessment and Plan: Was reducible in the ER however when he coughed or sat up, hernia returned. General surgery consulted Status post umbilical hernia repair 08/24 Denies abdomen pain Pneumonia: Code(s): J18.9 - Pneumonia, unspecified organism Status: Acute Assessment and Plan: Chest x-ray showing pulmonary opacities representing edema versus infection Chest/abdomen/pelvis CTA was negative for PE, showed moderate bilateral pleural effusion, subsegmental lingular consolidation suspicious for pneumonia or aspiration Continue Zosyn and azithromycin IV since 08/24 Leukocytosis persists, is trending down. Finished azithromycin, continue Augmentin for 3 more days (7) Elevated d-dimer: Code(s): R79.89 - Other specified abnormal findings of blood chemistry Status: Acute Assessment and Plan: D-dimer 4.21 CTA of the abdomen/pelvis/chest was negative for PE Elevated bilirubin: Code(s): R17 - Unspecified jaundice Status: Acute Assessment and Plan: Total bilirubin 1.4 Continue to trend Resolved Elevated lipase: Code(s): R74.8 - Abnormal levels of other serum enzymes Status: Acute Assessment and Plan: Lipase elevated at 351 CT does not show acute pancreatitis Hyperlipidemia: Code(s): E78.5 - Hyperlipidemia, unspecified Status: Chronic Assessment and Plan: Resume home medications Vitamin D deficiency: Code(s): E55.9 - Vitamin D deficiency, unspecified Status: Chronic Assessment and Plan: hold vitamin-D 3 for now Hypertension: Code(s): I10 - Essential (primary) hypertension Status: Chronic Assessment and Plan: Continue to monitor, adjust medication by PCP Time Spent with Patient Time attestation: Total time spent providing and/or coordinating discharge services: Exam Narrative: GENERAL: Pleasant, in no acute distress. Well-nourished. - EYES: EOMI. Anicteric. - HENT: Moist mucous membranes. - LUNGS: Clear to auscultation bilateral ly, no wheezing, rhonchi, or rales. - CARDIOVASCULAR: Regular rate and rhyth m. No murmur. No JVD. - ABDOMEN: Soft, non-tender and non-dist ended. No palpable masses. - EXTREMITIES: No edema. Peripheral puls es 2+. Non-tender. - NEUROLOGIC: No focal neurological defi cits. CN II-XII grossly intact. - PSYCHIATRIC: Awake, Alert and oriented x 3. Appropriate mood and affect. - SKIN: No rashes or lesions. Warm. - LYMPH: No cervical lymphadenopathy. DS: Data Data Completed and Pending Labs on day of discharge: Labs from last 24 hours 08/28/24 08/28/24 08/27/24 05:54 05:50 23:33 WBC 11.0 H RBC 4.03 L Hgb 11.3 L Hct 36.0 L MCV 89.3 MCH 28.0 MCHC 31.4 L RDW 14.3 Plt Count 278 MPV 9.8 Immature Gran % (Auto) 0.4 Neut % (Auto) 50.9 Lymph % (Auto) 34.3 [place] % (Auto) 9.8 H Eos % (Auto) 4.1 Baso % (Auto) 0.5 Lymph # (Auto) 3.77 H [place] # (Auto) 1.1 H Eos # (Auto) 0.5 H Baso # (Auto) 0.1 Abs Immat Gran (auto) 0.04 H Absolute Neuts (auto) 5.6 Absolute Nucleated RBC 0.000 Nucleated RBC % 0.0 Sodium 136 L Potassium 3.7 Chloride 102 Carbon Dioxide 29 Anion Gap 5 BUN 7 L Creatinine 0.69 L Estim Creat Clear Calc 72 Estimated GFR > 60 Glucose 112 H POC Capillary Glucose 123 H 132 H Calcium 7.4 L Total Bilirubin 0.5 AST 34 ALT 19 Alkaline Phosphatase 57 Total Protein 6.0 L Albumin 3.1 L 08/27/24 08/27/24 18:50 11:55 WBC RBC Hgb Hct MCV MCH MCHC RDW Plt Count MPV Immature Gran % (Auto) Neut % (Auto) Lymph % (Auto) [place] % (Auto) Eos % (Auto) Baso % (Auto) Lymph # (Auto) [place] # (Auto) Eos # (Auto) Baso # (Auto) Abs Immat Gran (auto) Absolute Neuts (auto) Absolute Nucleated RBC Nucleated RBC % Sodium Potassium Chloride Carbon Dioxide Anion Gap BUN Creatinine Estim Creat Clear Calc Estimated GFR Glucose POC Capillary Glucose 119 H 187 H Calcium Total Bilirubin AST ALT Alkaline Phosphatase Total Protein Albumin Discharge Plan Discharge Attending physician on discharge: Felix Milner Consulting providers: Joaquina Lewis; Linda Dang Discharging Clinician: Felix Milner Anticipated Discharge Date/Time: 08/28/24 11:27 Patient Disposition: Home, Self-Care Activity: as tolerated Diet: as tolerated and heart healthy Discharge Instructions: May discharge home with stable. Follow-up in the office with Dr. Lewis in 2 weeks. Patient to call [phone] for an appointment. No lifting more than 5 to 10 lb for 4 to 6 weeks. If abdominal binder is in place than where night and day for 2 weeks. May remove abdominal binder to shower. May shower 24hours after surgery but no soaking of the incisions under water for 2 weeks. Resume all home medications and a prescription for narcotic pain medications will be sent to the patient's pharmacy if needed. May use Tylenol and/or ibuprofen in addition to or in place of narcotic pain medications. Patient Instructions: Antibiotic Form, Heart Failure (GEN) Patient Language: Ch[place] Stand Alone Forms: General Discharge Information Follow-up/Referrals: UNKNOWN,DOCTOR [Primary Care Provider] - (Patient needs to see PCP in 1 week) Discharge Medications: New hydrocodone-acetaminophen 5-325 mg tablet 1 - 2 tablet PO Q6H PRN (Reason: pain) Qty: 20 0RF furosemide 40 mg Tablet 40 mg PO DAILY Qty: 30 1RF metoprolol succinate [Toprol XL] 100 mg Tablet Extended Release 24 Hr 100 mg PO QAM Qty: 60 0RF potassium chloride 20 mEq Packet 20 meq PO DAILY Qty: 30 0RF amoxicillin-pot clavulanate 875-125 mg tablet 1 tablet PO Q12H Qty: 7 0RF albuterol sulfate [Ventolin HFA] 90 mcg/actuation HFA aerosol inhaler 1 inh inhalation QID PRN (Reason: shortness of breath or wheezing) Qty: 8.5 2RF Continued aspirin 81 mg tablet,chewable 81 mg PO DAILY cholecalciferol (vitamin D3) 50 mcg (2,000 unit) capsule 2,000 unit PO DAILY rosuvastatin [Crestor] 20 mg tablet 10 mg PO HS Qty: 30 0RF Discontinued carvedilol 6.25 mg tablet 6.25 mg PO BID Rx Instructions: must administer with a meal/food albuterol sulfate 90 mcg/actuation HFA aerosol inhaler 2 puff INHALATION Q6H PRN (Reason: shortness of breath or wheezing) Date of admission: 08/23/24 09:50 Primary Care Provider: UNKNOWN,DOCTOR Admitting Provider: Crystal Verdin Attending physician on admission: Crystal Verdin Condition: Serious
--- NOTE | 2024-08-28 11:26 | PM.IMPN ---
Progress Note: A&P Assessment and Plan (1) Acute exacerbation of CHF (congestive heart failure): Qualifiers: Heart failure type: unspecified Qualified Code(s): I50.9 - Heart failure, unspecified Code(s): I50.9 - Heart failure, unspecified Status: Acute (2) Pneumonia: Qualifiers: Laterality: bilateral Lung location: lower lobe of lung Pneumonia type: due to unspecified organism Qualified Code(s): J18.9 - Pneumonia, unspecified organism Code(s): J18.9 - Pneumonia, unspecified organism Status: Acute (3) Small bowel obstruction: Code(s): K56.609 - Unspecified intestinal obstruction, unspecified as to partial versus complete obstruction Status: Acute (4) Atrial fibrillation with RVR: Code(s): I48.91 - Unspecified atrial fibrillation Status: Acute Plan Acute exacerbation of combined CHF Code(s): I50.9 - Heart failure, unspecified Status: Acute Assessment and Plan: ProBNP 7570 Chest x-ray showing pulmonary opacities representing edema Chest/abdomen/pelvis CTA showed moderate bilateral pleural effusions, subsegmental lingular consolidation suspicious for pneumonia or aspiration Left echocardiogram on 08/23 showed ventricular systolic function is mildly reduced, estimated at 40-45%. The left ventricular diastolic function is grade I diastolic dysfunction. Consulted senior windows systems engineer, Received Lasix IV, changed to Lasix 40 mg daily p.o. per senior windows systems engineer recommendation on08/26 Hypokalemia Replete with potassium chloride. Potassium 2.9 replete with potassium chloride 40 mg IV once and 40 mg b.i.d. p.o. Follow-up BMP, corrected today Continue medicine sulfate 20 mg daily p.o. patient is on a p.o. Lasix Recommend patient to see primary care doctor event ache. Repeat BMP per PCP. Correct electrolyte abnormality accordingly Elevated troponin: Code(s): R79.89 - Other specified abnormal findings of blood chemistry Status: Acute Assessment and Plan: Troponin 0.058 Likely demand ischemia No further inpatient cardiac workup per senior windows systems engineer recommendation Atrial fibrillation with RVR: Code(s): I48.91 - Unspecified atrial fibrillation Status: Acute Assessment and Plan: EKG showing sinus tach with occasional ventricular premature complexes with frequent supraventricular premature complexes, right bundle branch block, left posterior fascicular block with a rate of 111, QTC 499 according to the EKG read on printout. It was determined that the patient was in AFib RVR while in the ED. was also noted to be in AFib RVR at [facility] however left AMA before treatment. This is new onset. Patient was given Cardizem bolus and started on Cardizem drip at 5 mg/hour Cardiology consulted Recommend Toprol 100 mg daily, Small bowel obstruction: Code(s): K56.609 - Unspecified intestinal obstruction, unspecified as to partial versus complete obstruction Status: Acute Assessment and Plan: Chest/abdomen/pelvis CTA showed small bowel obstruction with transition point at a moderate-sized umbilical hernia that contains a loop of small bowel General surgery consulted Was on NG tube placed to low intermittent suction with green bilious drainage Received D5 1/2 normal saline at 50 mL/hour D1 Status post umbilical hernia repair 08/25. Patient still on NG tube suction intermittently 08/25 NG tube is removed, advance diet per General surgery recommendation 08/26 Patient tolerated diet well (5) Umbilical hernia: Code(s): K42.9 - Umbilical hernia without obstruction or gangrene Status: Acute Assessment and Plan: Was reducible in the ER however when he coughed or sat up, hernia returned. General surgery consulted Status post umbilical hernia repair 08/24 Denies abdomen pain Pneumonia: Code(s): J18.9 - Pneumonia, unspecified organism Status: Acute Assessment and Plan: Chest x-ray showing pulmonary opacities representing edema versus infection Chest/abdomen/pelvis CTA was negative for PE, showed moderate bilateral pleural effusion, subsegmental lingular consolidation suspicious for pneumonia or aspiration Continue Zosyn and azithromycin IV since 08/24 Leukocytosis persists, is trending down. Finished azithromycin, continue Augmentin for 3 more days (7) Elevated d-dimer: Code(s): R79.89 - Other specified abnormal findings of blood chemistry Status: Acute Assessment and Plan: D-dimer 4.21 CTA of the abdomen/pelvis/chest was negative for PE Elevated bilirubin: Code(s): R17 - Unspecified jaundice Status: Acute Assessment and Plan: Total bilirubin 1.4 Continue to trend Resolved Elevated lipase: Code(s): R74.8 - Abnormal levels of other serum enzymes Status: Acute Assessment and Plan: Lipase elevated at 351 CT does not show acute pancreatitis Hyperlipidemia: Code(s): E78.5 - Hyperlipidemia, unspecified Status: Chronic Assessment and Plan: Resume home medications Vitamin D deficiency: Code(s): E55.9 - Vitamin D deficiency, unspecified Status: Chronic Assessment and Plan: hold vitamin-D 3 for now Hypertension: Code(s): I10 - Essential (primary) hypertension Status: Chronic Assessment and Plan: Continue to monitor, adjust medication by PCP Subjective Date/time seen: 08/28/24 11:26 Interval history: I saw examined patient today. Patient feels comfortable, tolerate diet well, denies abdomen pain nausea vomiting. Patient also denies cough, shortness breath Exam Narrative: GENERAL: Pleasant, in no acute distress. Well-nourished. - EYES: EOMI. Anicteric. - HENT: Moist mucous membranes. - LUNGS: Clear to auscultation bilaterally, no wheezing, rhonchi, or rales. - CARDIOVASCULAR: Regular rate and rhythm. No murmur. No JVD. - ABDOMEN: Soft, non-tender and non-distended. No palpable masses. - EXTREMITIES: No edema. Peripheral pulses 2+. Non-tender. - NEUROLOGIC: No focal neurological deficits. CN II-XII grossly intact. - PSYCHIATRIC: Awake, Alert and oriented x 3. Appropriate mood and affect. - SKIN: No rashes or lesions. Warm. - LYMPH: No cervical lymphadenopathy. Objective Data Vital Signs Vital Signs: Vital Signs - 24 hr 08/27/24 14:00 08/27/24 17:05 08/27/24 20:23 Temperature 97.2 F L Pulse Rate 86 86 Respiratory Rate 20 Blood Pressure 110/68 Pulse Oximetry 96 Oxygen Delivery Room Air 08/27/24 21:14 08/28/24 05:22 08/28/24 09:00 Temperature 97.2 F L 98.0 F Pulse Rate 82 79 Respiratory Rate 18 18 Blood Pressure 96/78 L 93/51 L 124/65 Pulse Oximetry 98 93 Oxygen Delivery 08/28/24 09:10 08/28/24 09:10 Temperature Pulse Rate 82 82 Respiratory Rate Blood Pressure Pulse Oximetry Oxygen Delivery Intake/Output Intake/Output: Intake & Output 08/25/24 08/26/24 08/27/24 08/28/24 23:59 23:59 23:59 23:59 Intake Total 1040 3490 1588.7 1040 Output Total 7607 476 5636 Balance -260 3265 408.7 1040 Meds/Results Medications: Active Medications Generic Name Dose Route Start Last Admin Trade Name Freq PRN Reason Stop Dose Admin Acetaminophen 650 mg 08/23/24 00:33 Acetaminophen 650 Mg Suppository RECTAL Q6H PRN Mild Pain (1-3) or Fever Acetaminophen 650 mg 08/23/24 00:37 08/26/24 09:25 Acetaminophen 325 Mg Tablet PO 650 mg Q4H PRN Administration Mild Pain (1-3) or Fever Albuterol 2 puff 08/23/24 02:18 08/28/24 11:00 Albuterol Sulfate (*Sp) Aerosol 1 Puff INHALATION 2 puff Q6HRT PRN Administration shortness of breath or wheezing Aspirin 81 mg 08/27/24 09:00 08/28/24 09:10 Aspirin 81 Mg Chewable Tablet PO 81 mg DAILY REJI Administration Carvedilol 6.25 mg 08/26/24 17:00 08/28/24 09:10 Carvedilol 6.25 Mg Tablet PO 6.25 mg BID REJI Administration Dextrose 12.5 gm 08/23/24 00:33 Dextrose 50% 25 Gm/50 Ml Syringe IV PUSH PRN PRN Hypoglycemia Protocol Furosemide 40 mg 08/25/24 09:00 08/28/24 09:11 Furosemide 40 Mg Tablet PO 40 mg DAILY REJI Administration Glucagon 1 mg 08/23/24 00:33 Glucagon For Inj 1 Mg Vial IM PRN PRN Hypoglycemia Protocol Glucose 15 gm 08/23/24 00:33 Glucose Oral Gel 15 Gm Of Glucse In 37.5 Gm Tube PO PRN PRN Hypoglycemia Protocol Hydromorphone HCl 0.3 mg 08/23/24 09:22 08/28/24 09:22 Hydromorphone Hcl Inj (*Crx) 1 Mg/Ml Syr IV PUSH 0.3 mg Q4HR PRN Administration Pain Rated 7-10 Dextrose 1,000 mls @ 100 mls/hr 08/23/24 00:33 Dextrose 5% 1,000 Ml IVPB PRN PRN Hypoglycemia Protocol Azithromycin 500 mg in 250 mls @ 250 mls/hr 08/24/24 09:00 08/28/24 10:04 Zithromax IVPB Infused Q24H REJI Infusion Piperacillin/Tazobactam/Dextrose 3.375 gm in 50 mls @ 100 mls/hr 08/25/24 17:00 08/28/24 05:57 Zosyn 3.375 Gm/Ns 50 Ml IVPB Infused Q6HR REJI Infusion Metoprolol Succinate 100 mg 08/26/24 09:00 08/28/24 09:10 Metoprolol Succinate Ext Rel 100 Mg Tabcr PO 100 mg QAM REJI Administration Ondansetron HCl 4 mg 08/23/24 00:33 Ondansetron Inj 4 Mg/2 Ml Vial IV PUSH Q4H PRN Nausea Oxycodone HCl 5 mg 08/27/24 09:56 08/27/24 10:40 Oxycodone Hcl (*Crx) 5 Mg Tab Ir PO 5 mg Q4H PRN Administration Pain Rated 7-10 Potassium Chloride 40 meq 08/27/24 13:05 08/28/24 09:11 Potassium Chloride 20 Meq Packet (For Liquid) PO 40 meq BID REJI Administration Rosuvastatin Calcium 10 mg 08/26/24 21:00 08/27/24 20:44 Rosuvastatin 10 Mg Tablet PO 10 mg HS REJI Administration Radiology Results: ITS Impressions Chest X-Ray 08/22/24 22:45 IMPRESSION: Pulmonary opacities may represent edema, probably with a component of atelectasis. Infection not excluded. Trace left effusion. Chest/Abdomen/Pelvis CTA 08/22/24 22:59 IMPRESSION: Subsegmental lingular consolidation suspicious for pneumonia or aspiration. Segmental and subsegmental left lower lobe pulmonary arteries not adequately assessed due to motion. No pulmonary embolus detected in the adequately visualized pulmonary arteries. Moderate bilateral pleural effusions. Asymmetric right gynecomastia, consider nonemergent mammography and breast ultrasound. Multiple splenic hypodensities, presumably related to cysts or hemangiomas. Infection or metastatic disease considered less likely. Bilateral indeterminate renal lesions, recommend nonemergent MRI or CT with and without contrast for further characterization. Small bowel obstruction, transition point at a moderate sized umbilical hernia that contains a loop of small bowel. Mild ascites. Abdomen X-Ray 08/23/24 05:36 Impression: NG tube in satisfactory position. Probable small bowel obstruction. Head CT 08/27/24 00:01 IMPRESSION: No acute intracranial findings. Labs Labs: Laboratory Results - last 24 hr 08/27/24 08/27/24 08/27/24 11:55 18:50 23:33 WBC RBC Hgb Hct MCV MCH MCHC RDW Plt Count MPV Immature Gran % (Auto) Neut % (Auto) Lymph % (Auto) Casey % (Auto) Eos % (Auto) Baso % (Auto) Lymph # (Auto) Casey # (Auto) Eos # (Auto) Baso # (Auto) Abs Immat Gran (auto) Absolute Neuts (auto) Absolute Nucleated RBC Nucleated RBC % Sodium Potassium Chloride Carbon Dioxide Anion Gap BUN Creatinine Estim Creat Clear Calc Estimated GFR Glucose POC Capillary Glucose 187 H 119 H 132 H Calcium Total Bilirubin AST ALT Alkaline Phosphatase Total Protein Albumin 08/28/24 08/28/24 05:50 05:54 WBC 11.0 H RBC 4.03 L Hgb 11.3 L Hct 36.0 L MCV 89.3 MCH 28.0 MCHC 31.4 L RDW 14.3 Plt Count 278 MPV 9.8 Immature Gran % (Auto) 0.4 Neut % (Auto) 50.9 Lymph % (Auto) 34.3 Casey % (Auto) 9.8 H Eos % (Auto) 4.1 Baso % (Auto) 0.5 Lymph # (Auto) 3.77 H Casey # (Auto) 1.1 H Eos # (Auto) 0.5 H Baso # (Auto) 0.1 Abs Immat Gran (auto) 0.04 H Absolute Neuts (auto) 5.6 Absolute Nucleated RBC 0.000 Nucleated RBC % 0.0 Sodium 136 L Potassium 3.7 Chloride 102 Carbon Dioxide 29 Anion Gap 5 BUN 7 L Creatinine 0.69 L Estim Creat Clear Calc 72 Estimated GFR > 60 Glucose 112 H POC Capillary Glucose 123 H Calcium 7.4 L Total Bilirubin 0.5 AST 34 ALT 19 Alkaline Phosphatase 57 Total Protein 6.0 L Albumin 3.1 L
[2024-08-28 11:44] LABS: Glucose Point of Care 157 mg/dl (65-105)
== END 2024-08-28 13:58 | disposition home or self-care (01) | DRG 353 ==
LOC: ANHED 08-23 00:28 → ANHIMU 08-23 00:53 → ANH3MEDSUR 08-28 11:27 → ANHIMU 08-29 10:13
PROVIDERS: Nurse Practitioner Acute Care; Surgery; Admitting Provider Family Medicine; Emergency Provider Physician Assistant; Visit Provider Hospitalist
PROC: 0WUF4JZ Supplement Abdominal Wall with Synthetic Substitute, Percutaneous Endoscopic Approach (ICD-10-PCS; principal; 2024-08-24 12:00)
DX: K42.0 Umbilical hernia with obstruction, without gangrene (principal); I50.43 Acute on chronic combined systolic (congestive) and diastolic (congestive) heart failure; J18.9 Pneumonia, unspecified organism; K56.609 Unspecified intestinal obstruction, unspecified as to partial versus complete obstruction; I24.89 Other forms of acute ischemic heart disease; I11.0 Hypertensive heart disease with heart failure; I48.91 Unspecified atrial fibrillation; K70.31 Alcoholic cirrhosis of liver with ascites; E87.6 Hypokalemia; E78.5 Hyperlipidemia, unspecified; E55.9 Vitamin D deficiency, unspecified; R74.8 Abnormal levels of other serum enzymes; R79.89 Other specified abnormal findings of blood chemistry; F12.90 Cannabis use, unspecified, uncomplicated; F14.90 Cocaine use, unspecified, uncomplicated; Z79.82 Long term (current) use of aspirin
CPT/HCPCS: 36415; 70450; 71045; 71275; 74177; 80048; 80053; 81001; 82948; 83605; 83690; 83735; 83880; 84100; 84484; 85025; 85380; 85610; 85730; 87040; 87637; 93005; 93306; 94640; 96361; 96365; 96366; 96367; 96368; 96375; 96376; 97161; 97165; 99285; A9270; C1781; G0378; J0456; J0696; J1171; J1596; J1940; J2250; J2270; J2371; J2543; J2704; J2710; J3480; J7030; J7040; J7120; Q9967

== ENCOUNTER 2024-09-04 01:15 | Inpatient (IN) | payer MEDICARE, OTHER, SELFPAY ==
[2024-09-04] VITALS (15 sets, daily range): BP systolic 98–147; BP diastolic 59–94; PULSE 65–96; RESP 15–18; TEMP 36.1–37; O2SAT 91–100
--- NOTE | ~2024-09-04 | XR_ITS ---
XR chest 2V 09/08/2024 12:55 Indication: Shortness of breath Procedure: 2 view chest Comparison: 09/05/2024 Findings: Right lower lobe pneumonia. Left basilar atelectasis. Small pleural effusions. Heart size n ormal. Impression: 1: Right lower lobe pneumonia. 2: Small pleural effusions. Reviewed, dictated and finalized at location A. Impression: 1: Right lower lobe pneumonia. 2: Small pleural effusions.
--- NOTE | ~2024-09-04 | XR_ITS ---
EXAMINATION: XR chest 1V portable Exam Date/Time: 09/05/2024 16:10 CDT HISTORY: eval pulm congestion Comparison: 09/04/2024. RESULT: Lines, tubes, and devices: None. Lungs and pleura: Low volumes with crowding. No focal consolidation or pneumothorax. Subsegmental bi basilar airspace disease. Minimal bilateral costophrenic angle blunting Cardiomediastinal silhouette: Stable. Other: No acute osseous or upper abdominal finding. IMPRESSION: Subsegmental bibasilar atelectasis/consolidation. Possible small bilateral pleural effusions. Reviewed, dictated and finalized at location K. IMPRESSION: Subsegmental bibasilar atelectasis/consolidation. Possible small bilateral pleu ral effusions.
--- NOTE | ~2024-09-04 | XR_ITS ---
CHEST RADIOGRAPH CLINICAL HISTORY: shortness of breath . COMPARISON: 08/22/2024 TECHNIQUE: Single portable view of the chest. FINDINGS The cardiomediastinal silhouette is enlarged, unchanged. Increased interstitial markings are identified bilaterally, findings suggesting moderate pulmonary va scular congestion. The remainder of the lungs are clear. IMPRESSION: Cardiomegaly and moderate pulmonary vascular congestion without focal infiltrate. Reviewed, dictated and finalized at location A. IMPRESSION: Cardiomegaly and moderate pulmonary vascular congestion without focal infiltrat e.
--- NOTE | ~2024-09-04 | US_ITS ---
US venous doppler [facility] DATE: 09/04/2024 19:21 INDICATION: Rule out DVT TECHNIQUE: Real-time and color flow imaging and Doppler analysis of the veins of both lower extremiti es COMPARISON: None FINDINGS: The greater saphenous veins are patent. There is spontaneous and phasic flow and normal aug mentation and color flow signal and normal compression of the deep veins of both lower extremities. IMPRESSION: No evidence of deep venous thrombosis of the lower extremities Reviewed, dictated and finalized at Location A. Reviewed, dictated and finalized at location A.
--- NOTE | ~2024-09-04 | CT_ITS ---
History: Altered mental status PROCEDURE: CT head without contrast. COMPARISON: 08/26/2024 TECHNIQUE: Axial imaging of the head performed from the skull base to the vertex without IV contrast. Sagittal a nd coronal reformations obtained. DLP: 681 mGy-cm FINDINGS: The ventricles are enlarged. The dilatation of the ventricles is proportional to the degree of sulcal prominence, not uncommon in the senescent brain. Decreased attenuation is identified within the periventricular white matter, likely secondary to micr ovascular ischemic disease, in a patient of this age. There is no mass, mass effect or midline shift. There is no abnormal extra-axial fluid collection or intracranial hemorrhage. Mucoperiosteal thickening within the bilateral maxillary sinuses. Remaining paranasal sinuses are unr emarkable. The mastoid air cells are well aerated. No acute displaced fractures within the overlying cranium. Impression: No acute intracranial hemorrhage or suspicious mass effect. Inflammatory sinus disease Reviewed, dictated and finalized at location A. Impression: No acute intracranial hemorrhage or suspicious mass effect. Inflammatory sinus disease
--- NOTE | ~2024-09-04 | US_ITS ---
EXAM: RENAL ULTRASOUND HISTORY: madeleine COMPARISON: Reference is made to a CTA examination of the chest, abdomen and pelvis dated 08/22/2024 FINDINGS: RIGHT KIDNEY: 12.3 x 6.6 x 6.1 cm. No hydronephrosis or bulky renal calculi. A single rounded anechoic avascular focus is present within the interpolar region of the right kidney measuring 17 x 20 x 18 mm consistent with a simple cyst for which no further follow-up is needed. The remainder of the parenchyma of the right kidney is otherwise unremarkable in echogenicity. LEFT KIDNEY: 12.1 x 7.1 x 5.8 cm No hydronephrosis or renal calculi. The parenchyma of the left kidney is unremarkable in echogenicity and lobulated in contour consistent with recent CT examination, likely representing scar. Trace free fluid identified within the left paracolic gutter (adjacent to the left kidney). BLADDER: Distended, and otherwise unremarkable. Free fluid is redemonstrated within the pelvis. IMPRESSION: No hydronephrosis or renal calculi. Free fluid within the left paracolic gutter and within the pelvis, consistent with recent CT examinat ion. Simple cyst within the right kidney for which no further follow-up is needed. Reviewed, dictated and finalized at location A. IMPRESSION: No hydronephrosis or renal calculi. Free fluid within the left paracolic gutter and within the pelvis, consistent w ith recent CT examination. Simple cyst within the right kidney for which no further follow-up is needed.
--- NOTE | 2024-09-04 01:16 | ECG_ITS ---
Test Date: 2024-09-04 01:24:24 Measurements Intervals [place] Rate: 93 P: -37 [place]: 147 QRS: 120 QRSD: 154 T: 22 QT: 402 QTc: 502 Interpretive Statements SINUS RHYTHM RIGHT BUNDLE BRANCH BLOCK Compared to ECG 08/22/2024 21:32:49 Intraventricular conduction delay now present Sinus tachycardia no longer present Ventricular premature complex(es) no longer present Electronically Signed On 09-04-2024 13:31:41 CDT by Linda Dang M.D.
--- OUTSIDE RECORDS SUMMARY | 2024-09-04 01:17 | XMS_ITS | Referral Summary ---
Author Organization [facility] Address [address] [place] [address] Care Team Providers Care Visiting Housekeeper Name Role Phone Unknown, Notinfile Primary Care Provider Unavail able Encounters Date Type Department Care Team Description 08/31/[address] [facility] Cardiology [address] [place] [phone] Linda Dang MD 08/30/2024 Orders Only [facility] Cardiology [address] [place] [address] Linda Dang MD 08/22/2024 5:19 PM CDT - 08/22/2024 8:28 PM CDT Emergency [facility] Emergency Department [address] [place] [address] Discharge Disposition: Left without being seen 08/15/2024 8:47 AM HEAD STILL OPERATOR - 08/15/2024 3:05 PM HEAD STILL OPERATOR Emergency [facility] Emergency Department 1 [place] [address] Gayla Malcolm MD Atrial fibrillation with controlled ventricular rate (HCC) (Primary Dx); Acute on chronic combined systolic and diastolic congestive heart failure (HCC) Discharge Disposition: Discharge to home or self care 07/13/[address] [facility] Orthopedics and Sports Medicine 4 [facility] [address] [place] [phone] Chris Tolentino MD from Last 3 Months [...] needed Assessment & Plan (07/23/2018 12:58 PM HEAD STILL OPERATOR): Reports compliance with wound care/splinting/hand therapy [...] making you feel afraid or unsafe? Denies 08/22/2024 Sex and Gender Information Value Date Recorded Sex Assigned at Not on file Legal Sex Male 1:47 AM HEAD STILL OPERATOR Gender Identity Not on file Sexual [...] on file Medical Devices Implanted Type Area Slip Cover Estimator Device Identifier Shelf Expiration Date Model / Serial / Lot mPay Gateway 8600-5x05 Graftjacket [id number] Regenerative Nonmesh Standard Graft - [id number] Implanted:Qty: 1 on 07/06/2018 by Kirby Rm III, MD at [facility] Left: Wrist [employer] Gateway 01/13/2020 [id number] / / [id number] Procedures Procedure Name Priority Date/Time Associated Diagnosis Comments CARDIOLOGY DOCUMENT SCAN Routine 08/25/2024 4:38 PM CDT CARDIOLOGY DOCUMENT SCAN Routine 08/24/2024 2:01 PM CDT CARDIOLOGY DOCUMENT SCAN Routine 08/24/2024 1:31 PM CDT CARDIOLOGY DOCUMENT SCAN Routine 08/24/2024 12:54 PM CDT PRO B-TYPE NATRIURETIC PEPTIDE STAT 08/22/2024 5:36 PM CDT MANUAL DIFFERENTIAL STAT 08/22/2024 5 :36 PM CDT EGFR STAT 08/22/2024 5:36 PM CDT LIPASE STAT 08/22/2024 5:36 PM CDT COMPREHENSIVE METABOLIC PANEL STAT 08/22/2024 5:36 PM CDT CBC WITH AUTO DIFFERENTIAL STAT 08/22/2024 5:36 PM CDT TROPONIN T HIGH-SENSITIVITY 2-HOUR Timed 08/15/2024 11:29 AM HEAD STILL OPERATOR URINALYSIS AND REFLEX TO MICROSCOPIC AND CULTURE STAT 08/15/2024 11:29 AM HEAD STILL OPERATOR EGFR STAT 08/15/2024 10:37 AM HEAD STILL OPERATOR HEPATIC FUNCTION PANEL STAT 10:37 AM HEAD STILL OPERATOR PRO B-TYPE NATRIURETIC PEPTIDE Add-On 08/15/2024 10:37 AM HEAD STILL OPERATOR CREATININE STAT 08/15/2024 10:37 AM HEAD STILL OPERATOR CBC WITHOUT DIFFERENTIAL STAT 08/15/2024 10:37 AM HEAD STILL OPERATOR TROPONIN T HIGH-SENSITIVITY 2-HOUR Timed 08/15/2024 10:37 AM HEAD STILL OPERATOR EGFR STAT 08/15/2024 9:00 AM HEAD STILL OPERATOR APTT STAT 08/15/2024 9:00 AM HEAD STILL OPERATOR PROTIME-INR STAT 08/15/2024 9:00 AM HEAD STILL OPERATOR DIFFERENTIAL AUTO STAT 08/15/2024 9:0 0 AM HEAD STILL OPERATOR TROPONIN T HIGH-SENSITIVITY SERIES (BASELINE, 2HR, 4HR, 6HR) STAT 08/15/2024 9:00 AM HEAD STILL OPERATOR CBC WITH AUTO DIFFERENTIAL STAT 08/15/2024 9:00 AM HEAD STILL OPERATOR COMPREHENSIVE METABOLIC PANEL STAT 08/15/2024 9:00 AM HEAD STILL OPERATOR INFLUENZA A/B, RSV, AND COVID-19 PCR STAT 08/15/2024 9:00 AM HEAD STILL OPERATOR XR CHEST PA LATERAL 2 VIEWS ED 08/15/2024 8:49 AM HEAD STILL OPERATOR ECG 12-LEAD STAT 08/15/2024 8:26 AM HEAD STILL OPERATOR COLONOSCOPY 07/16/2017 7:32 AM HEAD STILL OPERATOR from Last 3 Months or Most Recently Relevant to Health Maintenance Results * Cardiology Document Scan (08/25/2024 4:38 PM CDT) Anatomical Region Laterality Modality Other Adis Patino MD CV CARDIAC SERVICES PROCEDURES F inal Result * Cardiology Document Scan (08/24/2024 2:01 PM CDT) Anatomical Region Laterality Modality Other Linda Dang MD CV CARDIAC SERVICES PRO CEDURES Final Result * Cardiology Document Scan (08/24/2024 1:31 PM CDT) Anatomical Region Laterality Modality Other Linda Dang MD CV CARDIAC SERVICES PRO CEDURES Final Result * Cardiology Document Scan (08/24/2024 12:54 PM CDT) Anatomical Region Laterality Modality Other Linda Dang MD CV CARDIAC SERVICES PRO CEDURES Final Result * eGFR (08/22/2024 5:36 PM CDT) eGFR [...] LAB BLOOD ORDERABLES Final Result [facility] ([place]) 1 [facility] Department [place] [address] * (ABNORMAL) Pro B-type natriuretic peptide (08/22/2024 5:36 PM CDT) NT-proBNP 6,478(H) <=450 pg/mL Comment: Interpretive Comments: A. Dyspnea [...] Interpretive Data Last Revised Date: 2018. Blood 08/22/2024 5:36 PM CDT 08/22/2024 8:19 PM CDT us Clotilde STORM LAB BLOOD ORDERABLES Final Resu lt [facility] ([place]) 1 [facility] [employer] [address] * (ABNORMAL) CBC with auto differential (08/22/2024 [...] ORDERABLES Final Result [facility] ([place]) 1 [facility] [place] [address] * (ABNORMAL) Manual Differential (08/22/2024 5:36 PM [...] ORDERABLES Final Result [facility] ([place]) 1 [facility] Department [place] [address] * Lipase (08/22/2024 5:36 PM CDT) Lipase 95 10 - 99 Units/L Blood Venous blood specimen / Unknown 08/22/2024 5:36 PM CDT 08/22/2024 5:40 PM CDT us Timo Holder MD LAB BLOOD ORDERABLES Final Result [facility] ([place]) 1 [facility] Department [place] [address] * Comprehensive metabolic panel (08/22/2024 5:36 PM [...] BLOOD ORDERABLES Final Result Performing Organization Address [facility] Co de Phone Number [facility] ([place]) 1 [facility] [place] [address] * (ABNORMAL) Troponin T high-sensitivity 2-hour (08/15/2024 11:29 AM HEAD STILL OPERATOR) Trop T hs 26(H) <=22 ng/L Comment: Interpretive Data For further hscTnT resources including the diagnostic algorithm and an aid in interpretation, copy and paste this link: https://nrl.testcatalog.org/show/hsTrop Current Interpretive Data last revised 2020. Trop T hs delta See Comment ng/L CE RNZULLY [facility]DA ([place]) Comment:unable to calculate Trop T hs pct delta See Comment % [facility] ([place]) Comment:unable to calculate Trop T hs interp See Comment C ERNZULLY [facility]DA ([place]) Comment:unable to calculate Blood 08/15/2024 11:2 9 AM HEAD STILL OPERATOR 08/15/2024 11:31 AM HEAD STILL OPERATOR Gayla Malcolm MD LAB BLOOD ORDERABLES Alanna l Result Performing Organization Address [facility] Co de Phone Number [facility] ([place]) 1 [facility] [place] [address] * Urinalysis reflex to microscopic and culture Urine (08/15/2024 11:29 AM HEAD STILL OPERATOR) Color, ur Straw Yellow Clarity, ur Clear Clear [facility] ([place]) Specific gravity, ur 1.008 1.003 - 1.030 [facility] ([place]) pH, urine 6.5 [facility] ([place]) Comment: Interpretive Data U rine pH is affected by diet, medications, systemic acid-base disturbances, and renal tubular function. pH may affect urinary stone formation. For example, urine pH below 6.0 may help reduce the tendency for calcium phosphate stones and pH greater than 6.0 may reduce the tendency for uric acid stone formation. Source: [facility] Current Interpretive Data was last revised on [...] [facility]DA ([place]) Urine 08/15/2024 11:2 9 AM HEAD STILL OPERATOR 08/15/2024 11:31 AM HEAD STILL OPERATOR Gayla Malcolm MD LAB MICROBIOLOGY - GENERA L ORDERABLES Final Result Performing Organization Address City/State/[facility] Co de Phone Number [facility] ([place]) 1 [facility] Department of Laboratories [place] [id number] * (ABNORMAL) Troponin T high-sensitivity 2-hour (08/15/2024 10:37 AM HEAD STILL OPERATOR) Trop T hs 26(H) <=22 ng/L Comment: Interpretive Data For further hscTnT resources including the diagnostic algorithm and an aid in interpretation, copy and paste this link: https://nrl.testcatalog.org/show/hsTrop Current Interpretive Data last revised 2020. Trop T hs interp See Comment C ELISA [facility]DA ([place]) Comment:Delta calculation an d interpretation not available. Blood 08/15/2024 10:3 7 AM HEAD STILL OPERATOR 08/15/2024 10:38 AM HEAD STILL OPERATOR us Gayla Malcolm MD LAB BLOOD ORDERABLES Alanna l Result Performing Organization Address City/State/[facility] Co de Phone Number [facility] [place]) 1 [facility] [place] [address] * eGFR (08/15/2024 10:37 AM HEAD STILL OPERATOR) eGFR >90 >=60 mL/min/1. 73 m2 [...] reviewed 2021. Blood 08/15/2024 10:3 7 AM HEAD STILL OPERATOR 08/15/2024 10:39 AM HEAD STILL OPERATOR Gayla Malcolm MD LAB BLOOD ORDERABLES Alanna l Result Performing Organization Address City/[facility] Co de Phone Number [facility] ([place]) 1 [facility] [place] [address] * (ABNORMAL) Pro B-type natriuretic peptide (08/15/2024 10:37 AM HEAD STILL OPERATOR) NT-proBNP 4,819(H) <=450 pg/mL Comment: Interpretive [...] Date: 2018. Blood 08/15/2024 10:3 7 AM HEAD STILL OPERATOR 08/15/2024 10:39 AM HEAD STILL OPERATOR Gayla Malcolm MD LAB BLOOD ORDERABLES Edit ed Result - Final [facility] ([place]) 1 [facility] [place] [address] * (ABNORMAL) CBC without differential (08/15/2024 10:37 AM HEAD STILL OPERATOR) WBC 8.8 3.8 - 9.9 K/cumm Hgb 12.3(L) 13.0 - 17.5 g/dL [facility] ([place]) Hct 40.0 38.9 - 50.3 % [facility] ([place]) Plt 209 150 - 400 K/cumm [facility] ([place]) MPV 9.8 9.1 - 12.3 fL [facility] ([place]) RBC 4.40 4.30 - 5.80 M/cumm [facility] ([place]) MCV 90.9 81.3 - 96.4 fL [facility] ([place]) MCH 28.0 27.1 - 33.3 pg [facility] ([place]) MCHC 30.8(L) 32.3 - 35.7 g/dL [facility] ([place]) RDW CV 14.2 11.1 - 14.9 % [facility] ([place]) RDW SD 47.1 35.7 - 48.1 fL [facility] ([place]) NRBC abs 0.00 0.00 - 0.01 K/cumm [facility] ([place]) Blood 08/15/2024 10:3 7 AM HEAD STILL OPERATOR 08/15/2024 10:38 AM HEAD STILL OPERATOR Narrative [facility] ([place]) - 08/15/2024 10:41 AM HEAD STILL OPERATOR Baseline prior to enoxaparin initiation. Gayla Malcolm MD LAB BLOOD ORDERABLES Alanna l Result Performing Organization Address City/[facility]/ZIP Co de Phone Number [facility] ([place]) [address] [place] [address] [employer] [address] * (ABNORMAL) Creatinine (08/15/2024 10:37 AM HEAD STILL OPERATOR) Creatinine 0.72(L) 0.80 - 1.30 mg/dL Blood 08/15/2024 10:3 7 AM HEAD STILL OPERATOR 08/15/2024 10:39 AM HEAD STILL OPERATOR Narrative [facility] ([place]) - 08/15/2024 11:27 AM HEAD STILL OPERATOR Baseline prior to enoxaparin initiation. Gayla Malcolm MD LAB BLOOD ORDERABLES Alanna l Result [facility] ([place]) 1 [facility] [place] [address] * Hepatic function panel (08/15/2024 10:37 AM HEAD STILL OPERATOR) Bilirubin, total 0.3 0.1 - 1.2 [...] [facility] ([place]) Blood 08/15/2024 10:3 7 AM HEAD STILL OPERATOR 08/15/2024 10:39 AM HEAD STILL OPERATOR Gayla Malcolm MD LAB BLOOD ORDERABLES Alanna l Result Performing Organization Address [facility] Co de Phone Number [facility] ([place]) [address] [place] [address] [employer] [address] * (ABNORMAL) Troponin T high-sensitivity series (baseline, 2hr, 4hr, 6hr) (08/15/2024 9:00 AM HEAD STILL OPERATOR) Pathologist [facility] Trop T hs 23(H) <=22 ng/L Comment: Interpretive Data For further hscTnT resources including the diagnostic algorithm and an aid in interpretation, copy and paste this link: https://nrl.testcatalog.org/show/hsTrop Current Interpretive Data last revised 2020. Testing performed by: [facility], [address] [place] [address]., [address] Blood 08/15/2024 9:00 AM HEAD STILL OPERATOR 08/15/2024 9:06 AM HEAD STILL OPERATOR Gayla Malcolm MD LAB BLOOD ORDERABLES Alanna l Result Performing Organization Address [facility]/State/ZIP Co de Phone Number [facility] ([place]) 1 [facility] [place] [address] * Influenza A/B, RSV, and COVID-19 PCR Nasopharyngeal (08/15/2024 9:00 AM HEAD STILL OPERATOR) COVID-19 RNA Negative Negative Influenza A RNA Negative Negative [facility] ([place]) Influenza B RNA Negative Negative [facility] ([place]) RSV RNA Negative Negative [facility] ([place]) Comment: Interpretive data: Testing performed by [facility]. This test is performed using the [employer] Xpert Xpress CoV-2/Flu/RSV plus assay. This is a multiplex, real- time reverse transcriptase PCR assay intended for the qualitative detection of nucleic acid from SARS-CoV-2, influenza A, influenza B, and respiratory syncytial virus. This assay has been cleared by the [place] Food and Drug administration. The performance characteristics have been verified by the [facility]. Results must be considered in the clinical context, and a negative result does not rule out infection. Interpretive Data last revised 2023 Nasopharyngeal 08/15/2024 9: 00 AM HEAD STILL OPERATOR 08/15/2024 9:06 AM HEAD STILL OPERATOR Narrative [facility] ([place]) - 08/15/2024 9:50 AM HEAD STILL OPERATOR Is the Patient experiencing symptoms consistent with COVID?->Yes Gayla Malcolm MD LAB MICROBIOLOGY - GENERA L ORDERABLES Final Result [facility] ([place]) 1 [facility] Department [place] [address] * eGFR (08/15/2024 9:00 AM HEAD STILL OPERATOR) eGFR >90 >=60 mL/min/1. 73 m2 [...] was last reviewed 2021. Testing performed by: [facility], [address] [place] [address], [place]., [address] Blood 08/15/2024 9:00 AM HEAD STILL OPERATOR 08/15/2024 10:54 AM HEAD STILL OPERATOR Gayla Malcolm MD LAB BLOOD ORDERABLES Alanna grimaldo Result [facility] ([place]) 1 [facility] Department [place] [address] * Differential, auto (08/15/2024 9:00 AM HEAD STILL OPERATOR) Neutrophil abs 4.5 1.5 - 6.5 [...] revised on 2017. Blood 08/15/2024 9:00 AM HEAD STILL OPERATOR 08/15/2024 9:06 AM HEAD STILL OPERATOR us Gayla Malcolm MD LAB BLOOD ORDERABLES Alanna grimaldo Result [facility] ([place]) 1 [facility] Department [place] [address] * (ABNORMAL) CBC with auto differential (08/15/2024 9:00 AM HEAD STILL OPERATOR) WBC 8.1 3.8 - 9.9 K/cumm [...] 47.2 35.7 - 48.1 fL [facility] ([place]) NRBC abs 0.00 0.00 - 0.01 K/cumm [facility] ([place]) Blood 08/15/2024 9:00 AM HEAD STILL OPERATOR 08/15/2024 9:06 AM HEAD STILL OPERATOR Gayla Malcolm MD LAB BLOOD ORDERABLES Alanna l Result Performing Organization Address [facility] Co de Phone Number [facility] ([place]) 1 [facility] [place] [address] * aPTT (08/15/2024 9:00 AM HEAD STILL OPERATOR) aPTT 36 28 - 38 sec [facility] ([place]) Comment: Interpretive Data Heparin therapeutic range: 66.0 - 100.0 seconds. Range based on correlation with therapeutic heparin activity range of 0.3 - 0.7 Units/mL. Current interpretive data was last revised on 2023. Blood 08/15/2024 9:00 AM HEAD STILL OPERATOR 08/15/2024 10:24 AM HEAD STILL OPERATOR Narrative [facility] ([place]) - 08/15/2024 10:31 AM HEAD STILL OPERATOR Baseline prior to enoxaparin initiation. Gayla Malcolm MD LAB BLOOD ORDERABLES Alanna l Result Performing Organization Address [facility] Co de Phone Number [facility] ([place]) 1 [facility] [place] [address] * Protime-INR (08/15/2024 9:00 AM HEAD STILL OPERATOR) PT 12.8 9.7 - 13.0 sec [facility] ([place]) INR 1.18 0.90 - 1.20 [facility] ([place]) Comment: Interpretive data Oral anticoagulant therapeutic ranges: Venous thromboembolism prophylaxis or treatment: 2.0-3.0 CARDIOLOGY Standard range: 2.0-3.0 High-intensity range: 2.5-3.5 Refer to indication-specific guidelines for appropriate target ranges for prosthetic heart valve replacement. Current interpretive data was last revised on 2019. Blood 08/15/2024 9:00 AM HEAD STILL OPERATOR 08/15/2024 10:24 AM HEAD STILL OPERATOR Narrative [facility] ([place]) - 08/15/2024 10:31 AM HEAD STILL OPERATOR Baseline prior to enoxaparin initiation. us Gayla Malcolm MD LAB BLOOD ORDERABLES Alanna dillan Result [facility] ([place]) 1 [facility] Department [place] [address] * (ABNORMAL) Comprehensive metabolic panel (08/15/2024 9:00 AM HEAD STILL OPERATOR) Sodium 146(H) 135 - 145 mmol/L Comment:Testing performed by : [address] [address] Potassium, pl 4.5 3.3 - 4.9 mmol/L [facility] ([place]) Comment:Testing performed by : [facility], [address] [place] [address], [address] Chloride 108 97 - 110 mmol/L [facility] ([place]) Comment:Testing performed by : [address] [address] CO2 27 22 - 32 mmol/L [facility] ([place]) Comment:Testing performed by : [address] [address] Anion gap 11 2 - 15 mmol/L [facility] ([place]) Comment:Testing performed by : [address] [address] BUN 14 6 - 25 mg/dL [facility] ([place]) Comment:Testing performed by : [address], [address] Creatinine 0.77(L) 0.80 - 1.30 mg/dL [facility] ([place]) Comment:Testing performed by : [address], [address] Glucose 98 70 - 199 mg/dL FOR[facility] [...] was last revised 2022. Testing performed by: [facility], [address] [place] [address]., [address] Calcium 8.8 8.5 - 10.3 mg/dL [facility] ([place]) Comment:Testing performed by : [address] [address] Bilirubin, total 0.3 0.1 - 1.2 mg/dL [facility] ([place]) Comment:Testing performed by : [address], [address] Protein, pl 7.2 6.5 - 8.5 g/dL [facility] ([place]) Comment:Testing performed by : [address] [address] Albumin 3.8 3.5 - 5.0 g/dL [facility] ([place]) Comment:Testing performed by : [address] [address] Alk phos 71 40 - 130 Units/L [facility] ([place]) Comment:Testing performed by : [address], [address] ALT 17 7 - 55 Units/L [facility] ([place]) Comment:Testing performed by : [address] [address] AST 32 10 - 50 Units/L [facility] ([place]) Comment:Testing performed by : [address], [address] Blood 08/15/2024 9:00 AM HEAD STILL OPERATOR 08/15/2024 9:06 AM HEAD STILL OPERATOR Gayla Malcolm MD LAB BLOOD ORDERABLES Alanna l Result [facility] [place] 1 [facility] Department [place] [address] * XR Chest PA Lateral 2 Views (08/15/2024 8:49 AM HEAD STILL OPERATOR) Anatomical Region Laterality Modality Body, Chest N/A Computed Radiogr aphy 08/15/2024 9:00 AM HEAD STILL OPERATOR Narrative 08/15/2024 9:01 AM HEAD STILL OPERATOR EXAM DESCRIPTION: XR CHEST PA LATERAL [...] Amari Roberts M.D. MM: MM Report ID: [id number] Reading Location: [id number] Procedure Note Amari Roberts MD - 08/15/2024 [...] Amari Roberts M.D. MM: MM Report ID: [id number] Reading Location: [place] [address] Gayla Malcolm MD IMG XR PROCEDURES Final R esult * COLONOSCOPY (07/16/2017 7:32 AM HEAD STILL OPERATOR) Anatomical Region Laterality Modality Other Narrative Procedure Note Michael Bran MD - 07/16/2017 7:32 AM CST [facility] Patient Name: Js Contreras Procedure Date: 07/16/2017 7:32 AM Date of : 1950 Admit Type: Outpatient Age: 67 Gender: Male Attending MD: Michael Gonzalez M.D. Room: [facility] END[facility]COPY ROOM 2 Note Status: Finalized Procedure: [...] scope was passed under direct vision.The Colonoscope [id number] was introducedthrough the anus and advanced to [...] 7:32 AM Procedure Code(s): --- Professional --- 04065, Colonoscopy, flexible; with removal of tumor(s), polyp(s), or other lesion(s) by snare technique Diagnosis Code(s): --- Professional --- Z86.010, Personal history of colonic polyps K64.8, Other hemorrhoids D12.5, Benign neoplasm of sigmoid colon K57.30, Diverticulosis of large intestine without perforation orabscess without bleeding CPT copyright 2014 [employer]. All rights reserved. The codes documented in this report are preliminary and upon line camera operator reviewmay be revised to meet current compliance requirements. Recognized by the [employer] for promoting quality in endoscopy Michael Shaw MD ENDOSCOPY PROCEDUR ES Final Result from Last 3 Months or Most Recently Relevant to Health Maintenance Insurance [employer] MEDICARE PPO Member Subscriber Plan / Payer (Ef fective 2017-Present) Name:Js Contreras Relation to Subscriber:Self Name:Js Contreras Payer ID:[id number] (NAIC) Type:MEDICARE RISK OTHER Address: [address] MEDICARE MANAGED MEDICARE GENERIC RISK OTHER [employer] CHOICE MEDICARE PPO MEDICARE [facility] CARE [employer] MEDICARE [facility] [facility] CARE UHC MEDICARE ADVANTAGE Care Teams Visiting Housekeeper Relationship Specialty Start Date End Date Unknown, Notinfile PCP - General 07/09/23
--- OUTSIDE RECORDS SUMMARY | 2024-09-04 01:17 | XMS_ITS | Continuity of Care Document ---
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 . Referring Provider: Physician Calin. [facility], [place], [place], [id number], [place] tel:[phone] Nelson No Information 9 Screen Clinician. . Referring Provider: Physician Screen. [facility], [place], [place], [id number], [place] tel:[phone] Nelson Pain in left wristStiffness of left wrist, not elsewhere classifiedEffusion, left wristWeaknessPrimar y osteoarthritis, unspecified wrist Sep-0 9 Stern Katherin. [address] [place] [address], [address], [place], [place], Formerly named [facility], . tel:[phone] Referring Provider: Karen [address] , [place], [address]. tel:[phone] [facility], [place], [place], [id number], [place] tel:[phone] Moose Pain in left wristStiffness of left wrist, not elsewhere classifiedEffusion, left wristWeaknessPrimar y osteoarthritis, unspecified wrist Sep-0 9 Stern Katherin. [address] [place] [address], [address], [place], [place], Formerly named [facility], [place]. tel:[phone] Referring Provider: Kirby Rm [address] , [place], [address]. tel:[phone] [facility], [place], [place], [id number], [place] tel:[phone] Moose Pain in left wristStiffness of left wrist, not elsewhere classifiedEffusion, left wristWeaknessPrimar y osteoarthritis, unspecified wrist Aug- 9 Stern Katherin. [address] [place] [address], [address], [place], [address], [place]. tel:[phone] Referring Provider: Kirby Rm, [address], [place], [address]. tel:[phone] [facility], [address], [place], [place], [address], [place] tel:[phone] Nelson Pain in left wristStiffness of left wrist, not elsewhere classifiedEffusion, left wristWeaknessPrimar y osteoarthritis, unspecified wrist Mar-2 7-201 9 Stern Katherin. [address] [facility] [address], [address], [place], [address], [place]. tel:[phone] Referring Provider: Kirby Rm, [address] , [place], [address]. tel:[phone] [facility], [address], [place], [place], [address], [place] tel:[phone] Nelson Pain in left wristStiffness of left wrist, not elsewhere classifiedEffusion, left wristWeaknessPrimar y osteoarthritis, unspecified wrist Mar-1 9-201 9 Stern Katherin. [address] [place] [address], [address], [place], [address], [place]. tel:[phone] Referring Provider: Kirby Rm, [address], [place], [address]. tel:[phone] [facility], [place], [place], [id number], [place] tel:[phone] Nelson Pain in left wristStiffness of left wrist, not elsewhere classifiedEffusion, left wristWeaknessPrimar y osteoarthritis, unspecified wrist Mar-1 8-201 9 Stern Katherin. [address] [facility] [address], [address], [place], [address], [place]. tel:[phone] Referring Provider: Kirby Rm, [address], [place], [address]. tel:[phone] [facility], [place], [place], [address], [place] tel:[phone] Moose Pain in left wristStiffness of left wrist, not elsewhere classifiedEffusion, left wristWeaknessPrimar y osteoarthritis, unspecified wrist Mar-1 5-201 9 Stern Katherin. [address] [place] [address], [address], [place], [address], [place]. tel:[phone] Referring Provider: Kirby Rm, [address], [place], [address]. tel:[phone] [facility], [address], [place], [place], [id number], [place] tel:[phone] Moose Pain in left wristStiffness of left wrist, not elsewhere classifiedEffusion, left wristWeaknessPrimar y osteoarthritis, unspecified wrist Mar-1 3-201 9 Stern Katherin. [address] [place] [address], [address], [place], [address], [place]. tel:[phone] Referring Provider: Kirby Rm, [address], [place], [address]. tel:[phone] [facility], [address], [place], [place], [id number], [place] tel:[phone] Nelson Pain in left wristStiffness of left wrist, not elsewhere classifiedEffusion, left wristWeaknessPrimar y osteoarthritis, unspecified wrist Mar-1 1-201 9 Stern Katherin. [address] [place] [address], [address], [place], [address], [place]. tel:[phone] Referring Provider: Kirby Rm, [address], [place], [address]. tel:[phone] [facility], [place], [place], [id number], [place] tel:[phone] Moose Pain in left wristStiffness of left wrist, not elsewhere classifiedEffusion, left wristWeaknessPrimar y osteoarthritis, unspecified wrist Mar-0 8-201 9 Stern Katherin. [address] [place] [address], [address], [place], [address], [place]. tel:[phone] Referring Provider: Kirby Rm, [address] , [place], [address]. tel:[phone] [facility] [address], [place], [place], [address], [place] tel:[phone] Nelson Pain in left wristStiffness of left wrist, not elsewhere classifiedEffusion, left wristWeaknessPrimar y osteoarthritis, unspecified wrist Mar-0 6-201 9 Stern Katherin. [address] [place] [address], [address], [place], [address], [place]. tel:[phone] Referring Provider: Kirby Rm, [address] , [place], [address]. tel:[phone] [facility] [address], [place], [place], [id number], [place] tel:[phone] Nelson Pain in left wristStiffness of left wrist, not elsewhere classifiedEffusion, left wristWeaknessPrimar y osteoarthritis, unspecified wrist Mar-0 4-201 9 Stern Katherin. [address] [place] [address], [address], [place], [address], [place]. tel:[phone] Referring Provider: Kirby Rm, [address] , [place], [address]. tel:[phone] [facility] [address], [place], [place], [address], [place] tel:[phone] Nelson Pain in left wristStiffness of left wrist, not elsewhere classifiedEffusion, left wristWeaknessPrimar y osteoarthritis, unspecified wrist Mar-0 1-201 9 Stern Katherin. [address] [place] [address], [address], [place], [address], [place]. tel:[phone] Referring Provider: Kirby Rm, [address] , [place], [address]. tel:[phone] [facility] [address], [place], [place], [address], [place] tel:[phone] Moose Pain in left wristStiffness of left wrist, not elsewhere classifiedEffusion, left wristWeaknessPrimar y osteoarthritis, unspecified wrist Feb-2 7-201 9 Stern Katherin. [address] [place] [address], [address], [place], [place], Formerly named [facility], . tel:[phone] Referring Provider: Kirby Rm, [address] , [place], [address]. tel:[phone] [facility] [address], [place], [place], [address], [place] tel:[phone] Moose Pain in left wristStiffness of left wrist, not elsewhere classifiedEffusion, left wristWeaknessPrimar y osteoarthritis, unspecified wrist Feb-2 5-201 9 Stern Katherin. [address] [place] [address], [address], [place], [place], Formerly named [facility], [place]. tel:[phone] Referring Provider: Kirby Rm, [address] , [place], [address]. tel:[phone] [facility] [address], [place], [place], [address], [place] tel:[phone] Moose Pain in left wristStiffness of left wrist, not elsewhere classifiedEffusion, left wristWeaknessPrimar y osteoarthritis, unspecified wrist Feb-2 1-201 9 Stern Katherin. [address] [place] [address], [address], [place], [place], Formerly named [facility], [place]. tel:[phone] Referring Provider: Kirby Rm, [address] , [place], [address]. tel:[phone] [facility] [address], [place], [place], [address], [place] tel:[phone] Moose Pain in left wristStiffness of left wrist, not elsewhere classifiedEffusion, left wristWeaknessPrimar y osteoarthritis, unspecified wrist Feb-2 0-201 9 Stern Katherin. [address] [place] [address], [address], [place], [place], Formerly named [facility], [place]. tel:[phone] Referring Provider: Kirby Rm, [address], [place], [address]. tel:[phone] [facility] [address], [place], [place], [address], [place] tel:[phone] Moose Pain in left wristStiffness of left wrist, not elsewhere classifiedEffusion, left wristWeaknessPrimar y osteoarthritis, unspecified wrist 9 Stern Katherin. [address] [facility], [address], [place], [address], [place]. tel:[phone] Referring Provider: Kirby Rm, [address], [place], [address]. tel:[phone] [facility] [address], [place], [place], [address], [place] tel:[phone] Nelson Pain in left wristStiffness of left wrist, not elsewhere classifiedEffusion, left wristWeakness 9 Stern Katherin. [address] [place] [address], [address], [place], [address], [place]. tel:[phone] Referring Provider: Kirby Rm, [address] , [place], [address]. tel:[phone] [facility] [address], [place], [place], [address], [place] tel:[phone] Nelson Pain in left wristStiffness of left wrist, not elsewhere classifiedEffusion, left wristWeakness 9 Stern Katherin. [address] [address], [address], [place], [address], [place]. tel:[phone] Referring Provider: Kirby Rm, [address], [place], [address]. tel:[phone] [facility] [address], [place], [place], [address], [place] tel:[phone] Moose Pain in left wristStiffness of left wrist, not elsewhere classifiedEffusion, left wristWeakness Feb-1 1-201 9 Jarred Pandey. [address], [place] [address], . tel:[phone] Referring Provider: Kirby Rm [address] [facility], [place], [address]. tel:[phone], [id number], tel:[phone] Moose Pain in left wristStiffness of left wrist, not elsewhere classifiedEffusion, left wristWeakness Feb-0 8-201 9 Jarred Pandey. [address] [place] [address], [address], Formerly named [facility], . tel:[phone] Referring Provider: Kirby Rm, [address] [facility], [place], [address]. tel:[phone], [place], [place], [address], tel:[phone] Nelson Pain in left wristStiffness of left wrist, not elsewhere classifiedEffusion, left wristWeakness Feb-0 6-201 9 Jarred Pandey. [address] [place] [address], [address], Formerly named [facility], . tel:[phone] Referring Provider: Kirby Rm, [address] [facility], [place], [address]. tel:[phone] Family History Family Member Type Diagnosis Age At Onset No Information Payers Payer name Insurance type Covered alliance party ID Krish gibson(s) [employer] [place] 00 Social History [...]
--- OUTSIDE RECORDS SUMMARY | 2024-09-04 01:17 | XMS_ITS | Encounter Summary ---
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 Gender Identity Not on file Sexual Orientation Not on file documented as of this encounter Plan of Treatment Not on file documented as of this encounter Procedures Procedure Name Priority Date/Time Associated Diagnosis Comments CARDIOLOGY DOCUMENT SCAN Routine 08/24/2024 1:31 PM CDT CARDIOLOGY DOCUMENT SCAN Routine 025 12:54 PM CDT documented in this encounter Results * Cardiology Document Scan (08/24/2024 1:31 PM CDT) Anatomical Region Laterality Modality Other us Linda Dang MD [facility] PRO CEDURES Final Result * Cardiology Document Scan (08/24/2024 12:54 PM CDT) Anatomical Region Laterality Modality Other us Linda Dang MD [facility] PRO CEDURES Final Result documented in this encounter Visit Diagnoses Not on filedocumented in this encounter Care Teams Pickle Maker Relationship Specialty Start Date End Date Unknown, Notinfile PCP - General 07/09/23 documented as of this encounter
--- OUTSIDE RECORDS SUMMARY | 2024-09-04 01:17 | XMS_ITS | Clinical Summary ---
Author Organization [facility] Address [address] [place] [address] Phone Care Team Providers Care Secondary Special Education Teacher Name Role Phone Chris Tolentino MD Unavailable [phone] Terra Pineda MD Unavailable Provider, None Primary [...] Covid-19 Vaccine, Vector-nr, Rs-ad26, Pf, 0.5 Ml ([employer]) 08/23/2020 Hepatitis A And Hepatitis B Vaccine [...] topic Insurance MEDICARE C [employer] Care Teams Secondary Special Education Teacher Relationship Specialty Start Date End Date Provider, None [place] PCP - General 05/10/21 Chris Tolentino MD Consulting Physician Orthopaedic Sports Medicine 04/07/18 Terra Pineda MD [address] [address] Consulting Physician Internal Medicine 04/07/18
--- OUTSIDE RECORDS SUMMARY | 2024-09-04 01:17 | XMS_ITS | Clinical Summary ---
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 Scapholunate ligament injury , no instability, left, initial encounter 12/28/2017 Encounters Date Type Department Care Team Description 08/31/2024 Orders Only [facility] Cardiology [address] [place] [address] Linda Dang MD 08/30/2024 Orders Only [facility] Cardiology [address] [facility] [address] [place] [phone] Linda Dang MD 08/22/2024 5:19 PM CDT - 08/22/2024 8:28 PM CDT Emergency [facility] Emergency Department 1 [place] [address] Discharge Disposition: Left without being seen 08/15/2024 8:47 AM ZINC PLATER - 08/15/2024 3:05 PM ZINC PLATER Emergency [facility] Emergency Department 1 [place] [address] Gayla Malcolm MD Atrial fibrillation with controlled ventricular rate (HCC) (Primary Dx); Acute on chronic combined systolic and diastolic congestive heart failure (HCC) Discharge Disposition: Discharge to home or self care 07/13/2024 Telephone [facility] Orthopedics and Sports Medicine [address] [facility] [address] [place] [address] Chris Tolentino MD from Last 3 Months [...] on file Legal Sex Male 1:47 AM ZINC PLATER Gender Identity Not on file Sexual Orientation [...] history exists Medical Devices Implanted Type Area Landscaper Helper Device Identifier Shelf Expiration Date Model / Serial / Lot [employer] 8600-5x05 Graftjacket [id number] Regenerative Nonmesh Standard Graft - [id number] Implanted:Qty: 1 on 07/06/2018 by Kirby Rm III, MD at [facility] Left: Wrist [employer] 01/13/2020 8600-5X05 / / [id number] Procedures Procedure Name Priority Date/Time Associated [...] T HIGH-SENSITIVITY 2-HOUR Timed 08/15/2024 11:29 AM ZINC PLATER URINALYSIS AND REFLEX TO MICROSCOPIC AND CULTURE STAT 08/15/2024 11:29 AM ZINC PLATER EGFR STAT 08/15/2024 10:37 AM ZINC PLATER HEPATIC FUNCTION PANEL STAT 10:37 AM ZINC PLATER PRO B-TYPE NATRIURETIC PEPTIDE Add-On 08/15/2024 10:37 AM ZINC PLATER CREATININE STAT 08/15/2024 10:37 AM ZINC PLATER CBC WITHOUT DIFFERENTIAL STAT 08/15/2024 10:37 AM ZINC PLATER TROPONIN T HIGH-SENSITIVITY 2-HOUR Timed 08/15/2024 10:37 AM ZINC PLATER EGFR STAT 08/15/2024 9:00 AM ZINC PLATER APTT STAT 08/15/2024 9:00 AM ZINC PLATER PROTIME-INR STAT 08/15/2024 9:00 AM ZINC PLATER DIFFERENTIAL AUTO STAT 08/15/2024 9:0 0 AM ZINC PLATER TROPONIN T HIGH-SENSITIVITY SERIES (BASELINE, 2HR, 4HR, 6HR) STAT 08/15/2024 9:00 AM ZINC PLATER CBC WITH AUTO DIFFERENTIAL STAT 08/15/2024 9:00 AM ZINC PLATER COMPREHENSIVE METABOLIC PANEL STAT 08/15/2024 9:00 AM ZINC PLATER INFLUENZA A/B, RSV, AND COVID-19 PCR STAT 08/15/2024 9:00 AM ZINC PLATER XR CHEST PA LATERAL 2 VIEWS ED 08/15/2024 8:49 AM ZINC PLATER ECG 12-LEAD STAT 08/15/2024 8:26 AM ZINC PLATER COLONOSCOPY 07/16/2017 7:32 AM ZINC PLATER from Last 3 Months or Most Recently [...] ORDERABLES Final Result [facility] ([place]) [address] [facility] Department [place] [address] * (ABNORMAL) Pro B-type natriuretic peptide (08/22/2024 [...] STORM LAB BLOOD ORDERABLES Final Resu lt FORREST LINDA ([place]) [address] [facility] [place] [address] * (ABNORMAL) CBC with auto differential (08/22/2024 [...] NRBC abs 0.00 0.00 - 0.01 K/cumm [facility] ([place]) Blood Venous blood specimen / Unknown 08/22/2024 5:36 PM CDT 08/22/2024 5:40 PM CDT Timo Holder MD LAB BLOOD ORDERABLES Final Result [facility] ([place]) [address] [facility] Department [place] [address] * (ABNORMAL) Manual Differential (08/22/2024 5:36 PM CDT) Pathologist [facility] Differential Manual Cells Counted 100 [facility] [...] lymph pct 21.0(H) 0.0 - 0.0 % [facility] ([place]) RBC morphology Consistent with RBC Indicies [facility] ([place]) Platelet estimate Adequate CE R[facility] ([place]) Blood 08/22/2024 5:36 PM CDT 08/22/2024 5:40 PM CDT Timo Holder MD LAB BLOOD ORDERABLES Final Result Performing Organization Address City/[facility]/ZIP Co de Phone Number [facility] ([place]) [address] [facility] [employer] [place] [address] * Lipase (08/22/2024 5:36 PM CDT) Lipase 95 10 - 99 Units/L Blood Venous blood specimen / Unknown 08/22/2024 5:36 PM CDT 08/22/2024 5:40 PM CDT Timo Holder MD LAB BLOOD ORDERABLES Final Result [facility] ([place]) 1 [facility] [place] [address] * Comprehensive metabolic panel (08/22/2024 5:36 PM CDT) Sodium 141 135 - 145 mmol/L Potassium, pl 4.6 3.3 - 4.9 mmol/L [facility] ([place]) Chloride 99 97 - 110 mmol/L [facility] ([place]) CO2 31 22 - 32 mmol/L [facility] ([place]) Anion gap 11 2 - 15 mmol/L [...] classification and Diagnosis of Diabetes Diabetes Care 202; 46: S19-S40. Current interpretive data was last [...] Holder MD LAB BLOOD ORDERABLES Final Result [facility] ([place]) [address] [facility] Department [place] [address] * (ABNORMAL) Troponin T high-sensitivity 2-hour (08/15/2024 11:29 AM ZINC PLATER) Trop T hs 26(H) <=22 ng/L Comment: [...] T hs interp See Comment C ERNER MADDI ([place]) Comment:unable to calculate Blood 08/15/2024 11:2 9 AM ZINC PLATER 08/15/2024 11:31 AM ZINC PLATER us Gayla Malcolm MD LAB BLOOD ORDERABLES Alanna grimaldo Result ELINA [facility]DA ([place]) [address] [facility] Department [place] [address] * Urinalysis reflex to microscopic and culture Urine (08/15/2024 11:29 AM ZINC PLATER) Color, ur Straw Yellow Clarity, ur Clear Clear [facility] ([place]) Specific gravity, ur 1.008 1.003 - 1.030 [facility] ([place]) pH, urine 6.5 [facility] ([place]) Comment: Interpretive Data U rine pH is affected by diet, medications, systemic acid-base disturbances, and renal tubular function. pH may affect urinary stone formation. For example, urine pH below 6.0 may help reduce the tendency for calcium phosphate stones and pH greater than 6.0 may reduce the tendency for uric acid stone formation. Source: [facility] [employer] Current Interpretive Data was last revised on 2017 Protein, ur ql Negative Negative [facility] R [facility] ([place]) Glucose, ur ql Negative Negative [facility] R [facility] ([place]) Ketones, ur Negative Negative [facility] ([place]) Bilirubin, ur Negative Negative [facility] ([place]) Blood, ur Negative Negative [facility] ([place]) Urobilinogen, ur <2.0 <2.0 mg/dL [facility] ([place]) Nitrite, ur Negative Negative FORREST A ([place]) Leukocyte esterase, ur Negative Negative [facility] ([place]) UA reflex comment Reflex conditions for microscopic UA and culture not met. [facility] ([place]) Urine 08/15/2024 11:2 9 AM ZINC PLATER 08/15/2024 11:31 AM ZINC PLATER Gayla Malcolm MD LAB MICROBIOLOGY - GENERA L ORDERABLES Final Result Performing Organization Address [facility] Co de Phone Number [facility] ([place]) 1 [facility] [place] [address] * (ABNORMAL) Troponin T high-sensitivity 2-hour (08/15/2024 10:37 AM ZINC PLATER) Trop T hs 26(H) <=22 ng/L Comment: Interpretive Data For further hscTnT resources including the diagnostic algorithm and an aid in interpretation, copy and paste this link: https://nrl.testcatalog.org/show/hsTrop Current Interpretive Data last revised 2020. Trop T hs interp See Comment C ELISA LINDA ([place]) Comment:Delta calculation an d interpretation not available. Blood 08/15/2024 10:3 7 AM ZINC PLATER 08/15/2024 10:38 AM ZINC PLATER Gayla Malcolm MD LAB BLOOD ORDERABLES Alanna l Result Performing Organization Address City/[facility]/ZIP Co de Phone Number [facility] ([place]) 1 [facility] [place] [address] * eGFR (08/15/2024 10:37 AM ZINC PLATER) eGFR >90 >=60 mL/min/1. 73 m2 Comment: [...] reviewed 2021. Blood 08/15/2024 10:3 7 AM ZINC PLATER 08/15/2024 10:39 AM ZINC PLATER us Gayla Malcolm MD LAB BLOOD ORDERABLES Alanna grimaldo Result [facility] ([place]) [address] [facility] Department of Laboratories [place], [place] [id number] * (ABNORMAL) Pro B-type natriuretic peptide (08/15/2024 10:37 AM ZINC PLATER) NT-proBNP 4,819(H) <=450 pg/mL Comment: Interpretive Comments: [...] Date: 2018. Blood 08/15/2024 10:3 7 AM ZINC PLATER 08/15/2024 10:39 AM ZINC PLATER us Gayla Malcolm MD LAB BLOOD ORDERABLES Edit ed Result - Final [facility] ([place]) [address] [facility] Department [place] [address] * (ABNORMAL) CBC without differential (08/15/2024 10:37 AM ZINC PLATER) WBC 8.8 3.8 - 9.9 K/cumm Hgb [...] RDW SD 47.1 35.7 - 48.1 fL [facility] ([place]) NRBC abs 0.00 0.00 - 0.01 K/cumm [facility] ([place]) Blood 08/15/2024 10:3 7 AM ZINC PLATER 08/15/2024 10:38 AM ZINC PLATER Narrative [facility] ([place]) - 08/15/2024 10:41 AM ZINC PLATER Baseline prior to enoxaparin initiation. Gayla Malcolm MD LAB BLOOD ORDERABLES Alanna l Result [facility] ([place]) 1 [facility] [place] [place] [address] * (ABNORMAL) Creatinine (08/15/2024 10:37 AM ZINC PLATER) Creatinine 0.72(L) 0.80 - 1.30 mg/dL Blood 08/15/2024 10:3 7 AM ZINC PLATER 08/15/2024 10:39 AM ZINC PLATER Narrative [facility] ([place]) - 08/15/2024 11:27 AM ZINC PLATER Baseline prior to enoxaparin initiation. Gayla Malcolm MD LAB BLOOD ORDERABLES Alanna l Result Performing Organization Address City/[facility] Co de Phone Number [facility] LINDA ([place]) 1 [facility] [place] [place] [address] * Hepatic function panel (08/15/2024 10:37 AM ZINC PLATER) Bilirubin, total 0.3 0.1 - 1.2 mg/dL [...] [facility] ([place]) Blood 08/15/2024 10:3 7 AM ZINC PLATER 08/15/2024 10:39 AM ZINC PLATER Gayla Malcolm MD LAB BLOOD ORDERABLES Alanna l Result Performing Organization Address [facility] Co de Phone Number FORREST STARKN) [address] [place] [address] [place] [address] * (ABNORMAL) Troponin T high-sensitivity series (baseline, 2hr, 4hr, 6hr) (08/15/2024 9:00 AM ZINC PLATER) Pathologist [facility] Trop T hs 23(H) <=22 ng/L Comment: Interpretive Data For further hscTnT resources including the diagnostic algorithm and an aid in interpretation, copy and paste this link: https://nrl.testcatalog.org/show/hsTrop Current Interpretive Data last revised 2020. Testing performed by: [facility], [address] [place] [address]., [address] Blood 08/15/2024 9:00 AM ZINC PLATER 08/15/2024 9:06 AM ZINC PLATER Gayla Malcolm MD LAB BLOOD ORDERABLES Alanna l Result Performing Organization Address [facility] Co de Phone Number FORREST GomezSOMERSET) [address] [place] [address] [place] [address] * Influenza A/B, RSV, and COVID-19 PCR Nasopharyngeal (08/15/2024 9:00 AM ZINC PLATER) [facility] COVID-19 RNA Negative Negative Influenza A RNA Negative Negative [facility]ERN [facility] ([place]) Influenza B RNA Negative Negative [facility] ([place]) RSV RNA Negative Negative [facility] ([place]) Comment: Interpretive data: Testing performed by [facility]. This test is performed using the [employer]el[employer] Xpert Xpress CoV-2/Flu/RSV plus assay. This is a multiplex, real- time reverse transcriptase PCR assay intended for the qualitative detection of nucleic acid from SARS-CoV-2, influenza A, influenza B, and respiratory syncytial virus. This assay has been cleared by the [place] Food and Drug administration. The performance characteristics have been verified by the [facility]. Results must be considered in the clinical context, and a negative result does not rule out infection. Interpretive Data last revised 2023 Nasopharyngeal 08/15/2024 9: 00 AM ZINC PLATER 08/15/2024 9:06 AM ZINC PLATER Narrative FORREST BREWER) - 08/15/2024 9:50 AM ZINC PLATER Is the Patient experiencing symptoms consistent with COVID?->Yes Gayla Malcolm MD LAB MICROBIOLOGY - GENERA L ORDERABLES Final Result FORREST GomezSOMERSET) [address] [facility] Department [place] [address] * eGFR (08/15/2024 9:00 AM ZINC PLATER) eGFR >90 >=60 mL/min/1. 73 m2 Comment: [...] was last reviewed 2021. Testing performed by: [facility], [address] [place] [address], [place]., [address] Blood 08/15/2024 9:00 AM ZINC PLATER 08/15/2024 10:54 AM ZINC PLATER Gayla Malcolm MD LAB BLOOD ORDERABLES Alanna l Result [facility] ([place]) [address] [facility] Department [place] [address] * Differential, auto (08/15/2024 9:00 AM ZINC PLATER) Neutrophil abs 4.5 1.5 - 6.5 K/cumm [...] revised on 2017. Blood 08/15/2024 9:00 AM ZINC PLATER 08/15/2024 9:06 AM ZINC PLATER Gayla Malcolm MD LAB BLOOD ORDERABLES Alanna l Result [facility] ([place]) [address] [facility] Department [place] [address] * (ABNORMAL) CBC with auto differential (08/15/2024 9:00 AM ZINC PLATER) WBC 8.1 3.8 - 9.9 K/cumm Hgb [...] 0.01 K/cumm [facility] ([place]) Blood 08/15/2024 9:00 AM ZINC PLATER 08/15/2024 9:06 AM ZINC PLATER Gayla Malcolm MD LAB BLOOD ORDERABLES Alanna l Result FORREST STARKN) 1 [facility] [place] [address] * aPTT (08/15/2024 9:00 AM ZINC PLATER) aPTT 36 28 - 38 sec [facility]DA ([place]) Comment: Interpretive Data Heparin therapeutic range: 66.0 - 100.0 seconds. Range based on correlation with therapeutic heparin activity range of 0.3 - 0.7 Units/mL. Current interpretive data was last revised on 2023. Blood 08/15/2024 9:00 AM ZINC PLATER 08/15/2024 10:24 AM ZINC PLATER Narrative FORREST STARKN) - 08/15/2024 10:31 AM ZINC PLATER Baseline prior to enoxaparin initiation. us Gayla Malcolm MD LAB BLOOD ORDERABLES Alanna l Result Performing Organization Address [facility] Co de Phone Number FORREST GomezSOMERSET) 1 [facility] [place] [address] * Protime-INR (08/15/2024 9:00 AM ZINC PLATER) PT 12.8 9.7 - 13.0 sec [facility] ([place]) INR 1.18 0.90 - 1.20 [facility] ([place]) Comment: Interpretive data Oral anticoagulant therapeutic ranges: Venous thromboembolism prophylaxis or treatment: 2.0-3.0 CARDIOLOGY Standard range: 2.0-3.0 High-intensity range: 2.5-3.5 Refer to indication-specific guidelines for appropriate target ranges for prosthetic heart valve replacement. Current interpretive data was last revised on 2019. Blood 08/15/2024 9:00 AM ZINC PLATER 08/15/2024 10:24 AM ZINC PLATER Narrative FORREST BREWER) - 08/15/2024 10:31 AM ZINC PLATER Baseline prior to enoxaparin initiation. us Gayla Malcolm MD LAB BLOOD ORDERABLES Alanna l Result Performing Organization Address [facility]/ZIP Co de Phone Number FORREST GomezEVELYN) [address] [facility] Department [place] [address] * (ABNORMAL) Comprehensive metabolic panel (08/15/2024 9:00 AM ZINC PLATER) Sodium 146(H) 135 - 145 mmol/L Comment:Testing performed by : [facility], [address] [place] [address]., [address] Potassium, pl 4.5 3.3 - 4.9 mmol/L [facility] ([place]) Comment:Testing performed by : [facility], [address] [place] [address]., [address] Chloride 108 97 - 110 mmol/L [facility] ([place]) Comment:Testing performed by : [address] [address] CO2 27 22 - 32 mmol/L [facility] ([place]) Comment:Testing performed by : [address] [address] Anion gap 11 2 - 15 mmol/L [facility] ([place]) Comment:Testing performed by : [facility], [address] [place] [address]., [address] BUN 14 6 - 25 mg/dL [facility] ([place]) Comment:Testing performed by : [address] [address] Creatinine 0.77(L) 0.80 - 1.30 mg/dL [facility] ([place]) Comment:Testing performed by : [address] [address] Glucose 98 70 - 199 mg/dL CERNER [...] was last revised 2022. Testing performed by: [address] [place]., [address] Calcium 8.8 8.5 - 10.3 mg/dL [facility] ([place]) Comment:Testing performed by : [facility], [address] [place] [address], [address] Bilirubin, total 0.3 0.1 - 1.2 mg/dL [facility] ([place]) Comment:Testing performed by : [address], [address] Protein, pl 7.2 6.5 - 8.5 g/dL [facility] ([place]) Comment:Testing performed by : [facility], [address] [place] [address], [address] Albumin 3.8 3.5 - 5.0 g/dL [facility] ([place]) Comment:Testing performed by : [address], [address] Alk phos 71 40 - 130 Units/L [facility] ([place]) Comment:Testing performed by : [address], [address] ALT 17 7 - 55 Units/L [facility] ([place]) Comment:Testing performed by : [facility], [address] [place] [address], [address] AST 32 10 - 50 Units/L [facility] ([place]) Comment:Testing performed by : [address], [address] Blood 08/15/2024 9:00 AM ZINC PLATER 08/15/2024 9:06 AM ZINC PLATER Gayla Malcolm MD LAB BLOOD ORDERABLES Alanna l Result [facility] ([place]) [address] [facility] Department [place] [address] * XR Chest PA Lateral 2 Views (08/15/2024 8:49 AM ZINC PLATER) Anatomical Region Laterality Modality Body, Chest N/A Computed Radiogr aphy 08/15/2024 9:00 AM ZINC PLATER Narrative 08/15/2024 9:01 AM ZINC PLATER EXAM DESCRIPTION: XR CHEST PA LATERAL 2 [...] Amari Roberts M.D. MM: MM Report ID: [id number] Reading Location: [id number] Procedure Note Amari Roberts MD - 08/15/2024 [...] Amari Roberts M.D. MM: MM Report ID: [id number] Reading Location: [id number] Gayla Malcolm MD IMG XR PROCEDURES Final R esult * COLONOSCOPY (07/16/2017 7:32 AM ZINC PLATER) Anatomical Region Laterality Modality Other Narrative Procedure Note Michael Bran MD - 07/16/2017 7:32 AM CST [facility] Patient Name: Js Contreras Procedure Date: 07/16/2017 7:32 AM Date of : 1950 Admit Type: Outpatient Age: 67 Gender: Male Attending MD: Michael Gonzalez M.D. Room: [facility] END[facility]COPY ROOM 2 Note Status: Finalized [...] scope was passed under direct vision.The Colonoscope [id number] was introducedthrough the anus and advanced to [...] 7:32 AM Procedure Code(s): --- Professional --- 92232, Colonoscopy, flexible; with removal of tumor(s), polyp(s), or other lesion(s) by snare technique Diagnosis Code(s): --- Professional --- Z86.010, Personal history of colonic polyps K64.8, Other hemorrhoids D12.5, Benign neoplasm of sigmoid colon K57.30, Diverticulosis of large intestine without perforation orabscess without bleeding CPT copyright 2014 [employer]. All rights reserved. The codes documented in this report are preliminary and upon donor floor technician reviewmay be revised to meet current compliance requirements. Recognized by the [employer] for promoting quality in endoscopy Michael Shaw MD ENDOSCOPY PROCEDUR ES Final Result from Last 3 Months or Most Recently Relevant to Health Maintenance Insurance [employer] CHOICE MEDICARE PPO Member Subscriber Plan / Payer (Ef fective 2017-Present) Name:Js Contreras Relation to Subscriber:Self Name:Js Contreras Payer ID:[id number] (NAIC) Type:MEDICARE RISK OTHER Address: [address] MEDICARE [facility] MEDICARE GENERIC RISK OTHER [facility] CHOICE MEDICARE PPO MEDICARE [facility] AETNA MEDICARE GOLD [facility] UHC MEDICARE ADVANTAGE Care Teams Box Inspector Relationship Specialty Start Date End Date Unknown, Notinfile PCP - General 07/09/23
--- OUTSIDE RECORDS SUMMARY | 2024-09-04 01:17 | XMS_ITS | Encounter Summary ---
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 Gender Identity Not on file Sexual Orientation Not on file documented as of this encounter Plan of Treatment Not on file documented as of this encounter Procedures Procedure Name Priority Date/Time Associated Diagnosis Comments CARDIOLOGY DOCUMENT SCAN Routine 08/25/2024 4:38 PM CDT CARDIOLOGY DOCUMENT SCAN Routine 08/24/2024 2:01 PM CDT documented in this encounter Results * Cardiology Document Scan (08/25/2024 4:38 PM CDT) Anatomical Region Laterality Modality Other us Adis Patino MD CV CARDIAC SERVICES PROCEDURES F inal Result * Cardiology Document Scan (08/24/2024 2:01 PM CDT) Anatomical Region Laterality Modality Other us Linda Dang MD CV CARDIAC SERVICES PRO CEDURES Final Result documented in this encounter Visit Diagnoses Not on filedocumented in this encounter Care Teams College Instructor Relationship Specialty Start Date End Date Unknown, Notinfile PCP - General 07/09/23 documented as of this encounter
[2024-09-04 01:35] LABS: Basophils Absolute Auto 0.1 K/mm3 (0.0-0.1); Basophils Percent Auto 1.1 % (0.2-1.2); Eosinophils Absolute Auto 0.4 K/mm3 (0-0.3); Eosinophils Percent Auto 2.9 % (0-4.4); Hematocrit 34.9 % (42.0-52.0); Hemoglobin 10.8 g/dL (14.0-18.0); Immature Granulocyte Absolute 0.04 K/mm3 (0.00-0.031); Immature Granulocyte Percent A 0.3 % (0-0.5); Lymphocytes Absolute Auto 2.84 K/mm3 (0.9-3.2); Lymphocytes Percent Auto 23.5 % (18.3-44.2); Mean Corpuscular HGB Conc 30.9 g/dl (32-36); Mean Corpuscular Volume 90.4 fl (80-100); Mean Platelet Volume 8.8 fl (7.4-10.4); Monocytes Absolute Auto 1.2 K/mm3 (0.1-0.6); Monocytes Percent Auto 9.7 % (2.6-8.5); Neutrophils Absolute Auto 7.6 K/mm3 (1.3-6.7); Neutrophils Percent Auto 62.5 % (45.5-73.1); Platelet Count Result 401 k/mm3 (150-375); Red Blood Count 3.86 M/mm3 (4.6-6.20); White Blood Count 12.1 K/mm3 (4.5-10.0)
[2024-09-04 01:47] LABS: Alanine Aminotransferase 39 U/L (6-50); Alkaline Phosphatase 77 U/L (38-126); Anion Gap 10 mmol/L (4-12); Aspartate Amino Transferase 55 U/L (17-59); Bilirubin,Total 0.6 mg/dL (0.2-1.3); Blood Urea Nitrogen 27 mg/dL (9-20); Calcium 9.2 mg/dL (8.4-10.2); Carbon Dioxide 29 mmol/L (22-30); Chloride 100 mmol/L (98-107); Estimated CRCL calculation 39 ml/min; Estimated Glomerular Filt Rate 53; Glucose 94 mg/dL (65-110); Potassium 4.6 mmol/L (3.4-5.0); Sodium 139 mmol/L (137-145)
[2024-09-04 01:48] LABS: Lactic Acid Reflex 1.1 mmol/L (0.7-2.0)
[2024-09-04 01:51] LABS: Prothrombin Time 13.9 Seconds (11.1-14.7)
[2024-09-04 01:52] LABS: Partial Thromboplastin Time 28.9 Seconds (22.3-36.8)
[2024-09-04 02:05] LABS: Add Urine Microscopic? YES; Appearance Urine Clear (Clear); Bacteria Urine None Seen /hpf; Bilirubin Urine Negative (Negative); Blood Urine Negative (Negative); Color Urine Yellow (Yellow); Glucose Urine UA 2+ mg/dL (Negative); Ketones Urine Negative (Negative); Leukocyte Esterase Ur Negative LEU/UL (Negative); Need Manual Microscopic Reviewed; Nitrate Urine Negative (Negative); Protein Urine 1+ mg/dL (Negative); RBC Urine 0-2 /hpf (0-2); Specific Grav Ur 1.016 (1.001-1.035); Squamous Epithelial Cell Urine Few /hpf (Few); Urobilinogen Urine 0.2 mg/dL (<2.0); WBC Urine 0-5 /hpf (0-3); pH Urine 5.5 (5.0-9.0)
[2024-09-04 02:08] LABS: NT Pro B Type Natriuretic Pept 10500 pg/mL (19.9-100)
--- NOTE | 2024-09-04 02:09 | ED_ITS ---
HPI - General Adult General Chief complaint: Recheck/Abnormal Lab/Rx Stated complaint: legs/feet swelling after surgery Time Seen by Provider: 09/04/24 01:47 History of Present Illness HPI narrative: Patient 74-year-old gentleman presents emergency department chief complaint of lower extremity swelling. Patient was just in the hospital after having hernia repair and also has congestive heart failure the patient has been having increasing peripheral edema and the family has noticed that he has been less active and has been short of breath with ambulation Related Data Home Medications ?Medication ?Instructions ?Recorded ?Confirmed ?Last Taken ?Type aspirin 81 mg chewable tablet 81 mg PO DAILY 08/23/24 08/23/24 Unknown History cholecalciferol (vitamin D3) 50 2,000 unit PO DAILY 08/23/24 08/23/24 Unknown History mcg (2,000 unit) capsule Allergies Allergy/AdvReac Type Severity Reaction Status Date / Time No Known Drug Allergies Allergy Other Verified 08/24/24 11:06 Review of Systems 2 Review of Systems: A 10 system review of systems was completed on the patient and is negative except for what is stated in the HPI. Nursing and ancillary documentation was reviewed. [facility] Past Medical History Medical History Hypertension Hyperlipidemia Vitamin D deficiency Substance abuse Atrial fibrillation Congestive heart failure Surgical History Surgical History H/O hemorrhoidectomy History of appendectomy History of carpal tunnel release Social History Social History Smoking status: Never smoker Alcohol intake: never Substance use: current Substance use type: marijuana and crack/cocaine Other substance usage details: once in while Do You Feel Safe in your Home?: Yes Lack of Transportation: No Lack of Food: Never True Current Housing: I Have Housing Concerned About Future Housing: No Difficulty Paying Gas/Electric Bills: No Difficulty Paying for Meds: No Currently Unemployed: No Education: High School Diploma/GED Difficulty w/ Childcare or Family Care: No Spiritual care concerns: No Exam 2 Narrative: GENERAL: Well-appearing, well-nourished, and in no acute distress. HEAD: Normocephalic, atraumatic. EYES: PERRLA and EOMI. ENT: Nares clear, no rhinorrhea or epistaxis. Mucous membranes moist. NECK: Supple. CHEST: Clear to auscultation. No respiratory distress. HEART: Regular rate and rhythm. No murmur heard. Normal peripheral pulses. ABDOMEN: Soft, nontender, nondistended, normal active bowel sounds. EXTREMITIES: Normal range of motion. 2+ edema. SKIN: Warm, dry, no rash. NEURO: No focal deficits. Alert and oriented x3. PSYCH: Normal mood and affect. Course Vital Signs Vital signs: Vital Signs Temperature 36.3 C L 09/04/24 01:18 Pulse Rate 96 09/04/24 01:18 Respiratory Rate 15 09/04/24 01:18 Blood Pressure 146/94 H 09/04/24 01:18 Pulse Oximetry 94 09/04/24 01:18 Oxygen Delivery Room Air 09/04/24 01:18 Temperature 36.3 C L 09/04/24 01:18 Pulse Rate 82 09/04/24 02:43 Respiratory Rate 17 09/04/24 02:43 Blood Pressure 147/61 H 09/04/24 02:43 Pulse Oximetry 97 09/04/24 03:17 Oxygen Delivery Nasal Cannula 09/04/24 03:17 Oxygen Flow Rate 2 09/04/24 03:17 Medical Decision Making Vital Signs Vital Signs: Vital Signs Temperature 36.3 C L 09/04/24 01:18 Pulse Rate 96 09/04/24 01:18 Respiratory Rate 15 09/04/24 01:18 Blood Pressure 146/94 H 09/04/24 01:18 Pulse Oximetry 94 09/04/24 01:18 Oxygen Delivery Room Air 09/04/24 01:18 Temperature 36.3 C L 09/04/24 01:18 Pulse Rate 82 09/04/24 02:43 Respiratory Rate 17 09/04/24 02:43 Blood Pressure 147/61 H 09/04/24 02:43 Pulse Oximetry 97 09/04/24 03:17 Oxygen Delivery Nasal Cannula 09/04/24 03:17 Oxygen Flow Rate 2 09/04/24 03:17 Lab Data 09/04/24 01:29 09/04/24 01:29 Labs: Lab Results 09/04/24 09/04/24 Range/Units 01:29 01:36 WBC 12.1 H (4.5-10.0) K/mm3 RBC 3.86 L (4.6-6.20) M/mm3 Hgb 10.8 L (14.0-18.0) g/dL Hct 34.9 L (42.0-52.0) % MCV 90.4 (80-100) fl MCH 28.0 (26-34) pg MCHC 30.9 L (32-36) g/dl RDW 15.0 H (11.5-14.5) % Plt Count 401 H (150-375) k/mm3 MPV 8.8 (7.4-10.4) fl Immature Gran % (Auto) 0.3 (0-0.5) % Neut % (Auto) 62.5 (45.5-73.1) % Lymph % (Auto) 23.5 (18.3-44.2) % [place] % (Auto) 9.7 H (2.6-8.5) % Eos % (Auto) 2.9 (0-4.4) % Baso % (Auto) 1.1 (0.2-1.2) % Lymph # (Auto) 2.84 (0.9-3.2) K/mm3 [place] # (Auto) 1.2 H (0.1-0.6) K/mm3 Eos # (Auto) 0.4 H (0-0.3) K/mm3 Baso # (Auto) 0.1 (0.0-0.1) K/mm3 Abs Immat Gran (auto) 0.04 H (0.00-0.031) K/mm3 Absolute Neuts (auto) 7.6 H (1.3-6.7) K/mm3 Absolute Nucleated RBC 0.000 (0.0-0.012) K/mm3 Nucleated RBC % 0.0 (0.0-0.2) % PT 13.9 (11.1-14.7) Seconds INR 1.0 APTT 28.9 (22.3-36.8) Seconds Sodium 139 (137-145) mmol/L Potassium 4.6 (3.4-5.0) mmol/L Chloride 100 (98-107) mmol/L Carbon Dioxide 29 (22-30) mmol/L Anion Gap 10 (4-12) mmol/L BUN 27 H D (9-20) mg/dL Creatinine 1.31 H (0.7-1.3) mg/dL Estim Creat Clear Calc 39 ml/min Estimated GFR 53 L (59 - ) Glucose 94 (65-110) mg/dL Lactic Acid 1.1 (0.7-2.0) mmol/L Calcium 9.2 (8.4-10.2) mg/dL Total Bilirubin 0.6 (0.2-1.3) mg/dL AST 55 (17-59) U/L ALT 39 (6-50) U/L Alkaline Phosphatase 77 (38-126) U/L NT-Pro-B Natriuret Pep 72626 H (19.9-100) pg/mL Total Protein 7.0 (6.3-8.2) g/dL Albumin 4.0 (3.5-5.1) g/dL Urine Color Yellow (Yellow) Urine Appearance Clear (Clear) Urine pH 5.5 (5.0-9.0) Ur Specific [place] 1.016 (1.001-1.035) Urine Protein 1+ H (Negative) mg/dL Urine Glucose (UA) 2+ H (Negative) mg/dL Urine Ketones Negative (Negative) mg/dL Ur Blood (Man) Negative (Negative) Urine Nitrate Negative (Negative) Urine Bilirubin Negative (Negative) Urine Urobilinogen 0.2 (<2.0) mg/dL Add Ur Microanalysis Reviewed Leukocyte Esterase Rfl Negative (Negative) VIKA/UL Urine RBC 0-2 (0-2) /hpf Urine WBC 0-5 (0-3) /hpf Ur Squamous Epith Cells Few (Few) /hpf Urine Bacteria None seen /hpf Urine Casts 6-10 Discharge Plan Discharge Clinical Impression: Acute exacerbation of CHF (congestive heart failure) Qualifiers: Heart failure type: unspecified Qualified Code(s): I50.9 - Heart failure, unspecified Patient Disposition: Still a Patient Condition: Stable Patient Language: [place] Prescriptions: No Action aspirin 81 mg tablet,chewable 81 mg PO DAILY cholecalciferol (vitamin D3) 50 mcg (2,000 unit) capsule 2,000 unit PO DAILY hydrocodone-acetaminophen 5-325 mg tablet 1 - 2 tablet PO Q6H PRN (Reason: pain) Qty: 20 0RF furosemide 40 mg Tablet 40 mg PO DAILY Qty: 30 1RF metoprolol succinate [Toprol XL] 100 mg Tablet Extended Release 24 Hr 100 mg PO QAM Qty: 60 0RF potassium chloride 20 mEq Packet 20 meq PO DAILY Qty: 30 0RF amoxicillin-pot clavulanate 875-125 mg tablet 1 tablet PO Q12H Qty: 7 0RF rosuvastatin [Crestor] 20 mg tablet 10 mg PO HS Qty: 30 0RF albuterol sulfate [Ventolin HFA] 90 mcg/actuation HFA aerosol inhaler 1 inh inhalation QID PRN (Reason: shortness of breath or wheezing) Qty: 8.5 2RF Follow-up/Referrals: UNKNOWN,DOCTOR [Primary Care Provider] - Time of Disposition: 03:58
--- OUTSIDE RECORDS SUMMARY | 2024-09-04 02:38 | XMS_ITS | Referral Summary ---
Author Organization [facility] Address [address] [place] [address] Care Team Providers Care Order Dispatcher Name Role Phone Unknown, Notinfile Primary Care Provider Unavail able Encounters Date Type Department Care Team Description 08/31/2024 Orders Only [facility] Cardiology [address] [place] [phone] Linda Dang MD 08/30/2024 Orders Only [facility] Cardiology [address] [place] [address] Linda Dang MD 08/22/2024 5:19 PM CDT - 08/22/2024 8:28 PM CDT Emergency [facility] Emergency Department [address] [place] [address] Discharge Disposition: Left without being seen 08/15/2024 8:47 AM PHOTOGRAPHY SALES ASSOCIATE - 08/15/2024 3:05 PM PHOTOGRAPHY SALES ASSOCIATE Emergency [facility] Emergency Department [address] [place] [address] Gayla Malcolm MD Atrial fibrillation with controlled ventricular rate (HCC) (Primary Dx); Acute on chronic combined systolic and diastolic congestive heart failure (HCC) Discharge Disposition: Discharge to home or self care 07/13/2024 Telephone [facility] [address] [facility] [address] [place] [phone] Chris Tolentino MD from Last 3 Months [...] needed Assessment & Plan (07/23/2018 12:58 PM PHOTOGRAPHY SALES ASSOCIATE): Reports compliance with wound care/splinting/hand therapy Healing [...] on file Legal Sex Male 1:47 AM PHOTOGRAPHY SALES ASSOCIATE Gender Identity Not on file Sexual Orientation [...] on file Medical Devices Implanted Type Area Police Liaison Officer Device Identifier Shelf Expiration Date Model / Serial / Lot Zero2IPO 8600-5x05 Graftjacket [id number] Regenerative Nonmesh Standard Graft - [id number] Implanted:Qty: 1 on 07/06/2018 by Kirby Rm III, MD at [facility] Left: Wrist Zero2IPO 01/13/2020 8600-5X05 / / [id number] Procedures Procedure Name Priority Date/Time Associated [...] T HIGH-SENSITIVITY 2-HOUR Timed 08/15/2024 11:29 AM PHOTOGRAPHY SALES ASSOCIATE URINALYSIS AND REFLEX TO MICROSCOPIC AND CULTURE STAT 08/15/2024 11:29 AM PHOTOGRAPHY SALES ASSOCIATE EGFR STAT 08/15/2024 10:37 AM PHOTOGRAPHY SALES ASSOCIATE HEPATIC FUNCTION PANEL STAT 10:37 AM PHOTOGRAPHY SALES ASSOCIATE PRO B-TYPE NATRIURETIC PEPTIDE Add-On 08/15/2024 10:37 AM PHOTOGRAPHY SALES ASSOCIATE CREATININE STAT 08/15/2024 10:37 AM PHOTOGRAPHY SALES ASSOCIATE CBC WITHOUT DIFFERENTIAL STAT 08/15/2024 10:37 AM PHOTOGRAPHY SALES ASSOCIATE TROPONIN T HIGH-SENSITIVITY 2-HOUR Timed 08/15/2024 10:37 AM PHOTOGRAPHY SALES ASSOCIATE EGFR STAT 08/15/2024 9:00 AM PHOTOGRAPHY SALES ASSOCIATE APTT STAT 08/15/2024 9:00 AM PHOTOGRAPHY SALES ASSOCIATE PROTIME-INR STAT 08/15/2024 9:00 AM PHOTOGRAPHY SALES ASSOCIATE DIFFERENTIAL AUTO STAT 08/15/2024 9:0 0 AM PHOTOGRAPHY SALES ASSOCIATE TROPONIN T HIGH-SENSITIVITY SERIES (BASELINE, 2HR, 4HR, 6HR) STAT 08/15/2024 9:00 AM PHOTOGRAPHY SALES ASSOCIATE CBC WITH AUTO DIFFERENTIAL STAT 08/15/2024 9:00 AM PHOTOGRAPHY SALES ASSOCIATE COMPREHENSIVE METABOLIC PANEL STAT 08/15/2024 9:00 AM PHOTOGRAPHY SALES ASSOCIATE INFLUENZA A/B, RSV, AND COVID-19 PCR STAT 08/15/2024 9:00 AM PHOTOGRAPHY SALES ASSOCIATE XR CHEST PA LATERAL 2 VIEWS ED 08/15/2024 8:49 AM PHOTOGRAPHY SALES ASSOCIATE ECG 12-LEAD STAT 08/15/2024 8:26 AM PHOTOGRAPHY SALES ASSOCIATE COLONOSCOPY 07/16/2017 7:32 AM PHOTOGRAPHY SALES ASSOCIATE from Last 3 Months or Most Recently [...] LAB BLOOD ORDERABLES Final Result [facility] (GAGE) 1 [facility] [place] [address] * (ABNORMAL) Pro B-type natriuretic peptide (08/22/2024 [...] Resu lt [facility] ([place]) 1 [facility] [email or web address] [address] * (ABNORMAL) CBC with auto differential (08/22/2024 [...] ORDERABLES Final Result [facility] ([place]) 1 [facility] [place] [address] * (ABNORMAL) Manual Differential (08/22/2024 5:36 PM [...] Final Result [facility] ([place]) 1 [facility] [place] [address] * Lipase (08/22/2024 5:36 PM CDT) Lipase 95 10 - 99 Units/L Blood Venous blood specimen / Unknown 08/22/2024 5:36 PM CDT 08/22/2024 5:40 PM CDT us Timo Holder MD LAB BLOOD ORDERABLES Final Result [facility] ([place]) 1 [facility] [place] [address] * Comprehensive metabolic panel (08/22/2024 5:36 PM [...] BLOOD ORDERABLES Final Result Performing Organization Address [facility] Co de Phone Number FORREST [facility] (G[place]) 1 [facility] [place] [address] * (ABNORMAL) Troponin T high-sensitivity 2-hour (08/15/2024 11:29 AM PHOTOGRAPHY SALES ASSOCIATE) Trop T hs 26(H) <=22 ng/L Comment: Interpretive Data For further hscTnT resources including the diagnostic algorithm and an aid in interpretation, copy and paste this link: https://nrl.testcatalog.org/show/hsTrop Current Interpretive Data last revised 2020. Trop T hs delta See Comment ng/L CE RNZULLY LINDA (GAGE) Comment:unable to calculate Trop T hs pct delta See Comment % [facility] ([place]) Comment:unable to calculate Trop T hs interp See Comment C ERNZULLY LINDA (GAGE) Comment:unable to calculate Blood 08/15/2024 11:2 9 AM PHOTOGRAPHY SALES ASSOCIATE 08/15/2024 11:31 AM PHOTOGRAPHY SALES ASSOCIATE Gayla Malcolm MD LAB BLOOD ORDERABLES Alanna l Result Performing Organization Address [facility] Co de Phone Number FORRETS [facility] ([place]) 1 [facility] [place] [address] * Urinalysis reflex to microscopic and culture Urine (08/15/2024 11:29 AM PHOTOGRAPHY SALES ASSOCIATE) Color, ur Straw Yellow Clarity, ur Clear Clear FORREST Da Silva ([place]) Specific gravity, ur 1.008 1.003 - 1.030 [facility] ([place]) pH, urine 6.5 [facility] ([place]) Comment: Interpretive Data U rine pH is affected by diet, medications, systemic acid-base disturbances, and renal tubular function. pH may affect urinary stone formation. For example, urine pH below 6.0 may help reduce the tendency for calcium phosphate stones and pH greater than 6.0 may reduce the tendency for uric acid stone formation. Source: [facility] Current Interpretive Data was last revised on [...] LINDA ([place]N) Urine 08/15/2024 11:2 9 AM PHOTOGRAPHY SALES ASSOCIATE 08/15/2024 11:31 AM PHOTOGRAPHY SALES ASSOCIATE Gayla Malcolm MD LAB MICROBIOLOGY - GENERA L ORDERABLES Final Result Performing Organization Address City/State/[facility] Co de Phone Number FORREST MADDI (G[place]) 1 [facility] Department of Laboratories [place] [id number] * (ABNORMAL) Troponin T high-sensitivity 2-hour (08/15/2024 10:37 AM PHOTOGRAPHY SALES ASSOCIATE) Trop T hs 26(H) <=22 ng/L Comment: Interpretive Data For further hscTnT resources including the diagnostic algorithm and an aid in interpretation, copy and paste this link: https://nrl.testcatalog.org/show/hsTrop Current Interpretive Data last revised 2020. Trop T hs interp See Comment C ELISA LINDA ([place]) Comment:Delta calculation an d interpretation not available. Blood 08/15/2024 10:3 7 AM PHOTOGRAPHY SALES ASSOCIATE 08/15/2024 10:38 AM PHOTOGRAPHY SALES ASSOCIATE us Gayla Malcolm MD LAB BLOOD ORDERABLES Alanna l Result Performing Organization Address City/State/[facility] Co de Phone Number [facility]) 1 [facility] Department [email or web address] [address] * eGFR (08/15/2024 10:37 AM PHOTOGRAPHY SALES ASSOCIATE) eGFR >90 >=60 mL/min/1. 73 m2 Comment: [...] reviewed 2021. Blood 08/15/2024 10:3 7 AM PHOTOGRAPHY SALES ASSOCIATE 08/15/2024 10:39 AM PHOTOGRAPHY SALES ASSOCIATE Gayla Malcolm MD LAB BLOOD ORDERABLES Alanna l Result Performing Organization Address City/[facility] Co de Phone Number [facility] ([place]) 1 [facility] Department [email or web address] [address] * (ABNORMAL) Pro B-type natriuretic peptide (08/15/2024 10:37 AM PHOTOGRAPHY SALES ASSOCIATE) NT-proBNP 4,819(H) <=450 pg/mL Comment: Interpretive Comments: [...] Date: 2018. Blood 08/15/2024 10:3 7 AM PHOTOGRAPHY SALES ASSOCIATE 08/15/2024 10:39 AM PHOTOGRAPHY SALES ASSOCIATE Gayla Malcolm MD LAB BLOOD ORDERABLES Edit ed Result - Final [facility] (GAGE) 1 [facility] [place] [address] * (ABNORMAL) CBC without differential (08/15/2024 10:37 AM PHOTOGRAPHY SALES ASSOCIATE) WBC 8.8 3.8 - 9.9 K/cumm Hgb [...] LINDA ([place]ELYN) Blood 08/15/2024 10:3 7 AM PHOTOGRAPHY SALES ASSOCIATE 08/15/2024 10:38 AM PHOTOGRAPHY SALES ASSOCIATE Narrative [facility] LINDA ([place]) - 08/15/2024 10:41 AM PHOTOGRAPHY SALES ASSOCIATE Baseline prior to enoxaparin initiation. Gayla Malcolm MD LAB BLOOD ORDERABLES Alanna l Result Performing Organization Address City/[facility]/ZIP Co de Phone Number FORREST LINDA ([place]) [address] [place] [address] [email or web address] [address] * (ABNORMAL) Creatinine (08/15/2024 10:37 AM PHOTOGRAPHY SALES ASSOCIATE) Creatinine 0.72(L) 0.80 - 1.30 mg/dL Blood 08/15/2024 10:3 7 AM PHOTOGRAPHY SALES ASSOCIATE 08/15/2024 10:39 AM PHOTOGRAPHY SALES ASSOCIATE Narrative [facility] ([place]) - 08/15/2024 11:27 AM PHOTOGRAPHY SALES ASSOCIATE Baseline prior to enoxaparin initiation. Gayla Malcolm MD LAB BLOOD ORDERABLES Alanna l Result [facility] LINDA ([place]) 1 [facility] [place] [address] * Hepatic function panel (08/15/2024 10:37 AM PHOTOGRAPHY SALES ASSOCIATE) Bilirubin, total 0.3 0.1 - 1.2 mg/dL [...] [facility] ([place]) Blood 08/15/2024 10:3 7 AM PHOTOGRAPHY SALES ASSOCIATE 08/15/2024 10:39 AM PHOTOGRAPHY SALES ASSOCIATE Gayla Malcolm MD LAB BLOOD ORDERABLES Alanna l Result Performing Organization Address [facility] Co de Phone Number [facility] (GAGE) [address] [place] [address] [email or web address] [address] * (ABNORMAL) Troponin T high-sensitivity series (baseline, 2hr, 4hr, 6hr) (08/15/2024 9:00 AM PHOTOGRAPHY SALES ASSOCIATE) Pathologist [facility] Trop T hs 23(H) <=22 ng/L Comment: Interpretive Data For further hscTnT resources including the diagnostic algorithm and an aid in interpretation, copy and paste this link: https://nrl.testcatalog.org/show/hsTrop Current Interpretive Data last revised 2020. Testing performed by: [facility], [address] [place] [address]., [address] Blood 08/15/2024 9:00 AM PHOTOGRAPHY SALES ASSOCIATE 08/15/2024 9:06 AM PHOTOGRAPHY SALES ASSOCIATE Gayla Malcolm MD LAB BLOOD ORDERABLES Alanna l Result Performing Organization Address [facility]/State/ZIP Co de Phone Number [facility] (G[place]) 1 [facility] [email or web address] [address] * Influenza A/B, RSV, and COVID-19 PCR Nasopharyngeal (08/15/2024 9:00 AM PHOTOGRAPHY SALES ASSOCIATE) COVID-19 RNA Negative Negative Influenza A RNA Negative Negative [facility] ([place]) Influenza B RNA Negative Negative [facility] ([place]) RSV RNA Negative Negative [facility] ([place]) Comment: Interpretive data: Testing performed by [facility]. This test is performed using the [employer]ish Xpert Xpress CoV-2/Flu/RSV plus assay. This is a multiplex, real- time reverse transcriptase PCR assay intended for the qualitative detection of nucleic acid from SARS-CoV-2, influenza A, influenza B, and respiratory syncytial virus. This assay has been cleared by the [place] Food and Drug administration. The performance characteristics have been verified by the [facility]. Results must be considered in the clinical context, and a negative result does not rule out infection. Interpretive Data last revised 2023 Nasopharyngeal 08/15/2024 9: 00 AM PHOTOGRAPHY SALES ASSOCIATE 08/15/2024 9:06 AM PHOTOGRAPHY SALES ASSOCIATE Narrative [facility] ([place]) - 08/15/2024 9:50 AM PHOTOGRAPHY SALES ASSOCIATE Is the Patient experiencing symptoms consistent with COVID?->Yes Gayla Malcolm MD LAB MICROBIOLOGY - GENERA L ORDERABLES Final Result [facility] ([place]) 1 [facility] Department [place] [address] * eGFR (08/15/2024 9:00 AM PHOTOGRAPHY SALES ASSOCIATE) eGFR >90 >=60 mL/min/1. 73 m2 Comment: [...] was last reviewed 2021. Testing performed by: [facility], [address] [place] [address], [place]., [address] Blood 08/15/2024 9:00 AM PHOTOGRAPHY SALES ASSOCIATE 08/15/2024 10:54 AM PHOTOGRAPHY SALES ASSOCIATE Gayla Malcolm MD LAB BLOOD ORDERABLES Alanna grimaldo Result [facility] ([place]) 1 [facility] [place] [address] * Differential, auto (08/15/2024 9:00 AM PHOTOGRAPHY SALES ASSOCIATE) Neutrophil abs 4.5 1.5 - 6.5 K/cumm Imm gran abs 0.0 0.0 - 0.1 K/cumm [facility] ([place]) Lymphocyte abs 2.5 0.8 - 3.3 K/cumm [facility] ([place]) Monocyte abs 0.8 0.2 - 0.8 K/cumm [facility] ([place]) Eosinophil abs 0.2 0.0 - 0.5 K/cumm [facility] ([place]) Basophil abs 0.1 0.0 - 0.1 K/cumm [...] revised on 2017. Blood 08/15/2024 9:00 AM PHOTOGRAPHY SALES ASSOCIATE 08/15/2024 9:06 AM PHOTOGRAPHY SALES ASSOCIATE us Gayla Malcolm MD LAB BLOOD ORDERABLES Alanna grimaldo Result [facility] ([place]) 1 [facility] Department [place] [address] * (ABNORMAL) CBC with auto differential (08/15/2024 9:00 AM PHOTOGRAPHY SALES ASSOCIATE) WBC 8.1 3.8 - 9.9 K/cumm Hgb [...] 47.2 35.7 - 48.1 fL [facility] ([place]) NRBC abs 0.00 0.00 - 0.01 K/cumm [facility]DA ([place]) Blood 08/15/2024 9:00 AM PHOTOGRAPHY SALES ASSOCIATE 08/15/2024 9:06 AM PHOTOGRAPHY SALES ASSOCIATE Gayla Malcolm MD LAB BLOOD ORDERABLES Alanna l Result Performing Organization Address [facility] Co de Phone Number [facility]REST LINDA ([place]) 1 [facility] [email or web address] [address] * aPTT (08/15/2024 9:00 AM PHOTOGRAPHY SALES ASSOCIATE) aPTT 36 28 - 38 sec [facility] ([place]) Comment: Interpretive Data Heparin therapeutic range: 66.0 - 100.0 seconds. Range based on correlation with therapeutic heparin activity range of 0.3 - 0.7 Units/mL. Current interpretive data was last revised on 2023. Blood 08/15/2024 9:00 AM PHOTOGRAPHY SALES ASSOCIATE 08/15/2024 10:24 AM PHOTOGRAPHY SALES ASSOCIATE Narrative ELINA MADDI ([place]) - 08/15/2024 10:31 AM PHOTOGRAPHY SALES ASSOCIATE Baseline prior to enoxaparin initiation. Gayla Malcolm MD LAB BLOOD ORDERABLES Alanna l Result Performing Organization Address [facility] Co de Phone Number FORREST [facility] ([place]) 1 [facility] [email or web address] [address] * Protime-INR (08/15/2024 9:00 AM PHOTOGRAPHY SALES ASSOCIATE) PT 12.8 9.7 - 13.0 sec [facility] ([place]) INR 1.18 0.90 - 1.20 [facility] ([place]) Comment: Interpretive data Oral anticoagulant therapeutic ranges: Venous thromboembolism prophylaxis or treatment: 2.0-3.0 CARDIOLOGY Standard range: 2.0-3.0 High-intensity range: 2.5-3.5 Refer to indication-specific guidelines for appropriate target ranges for prosthetic heart valve replacement. Current interpretive data was last revised on 2019. Blood 08/15/2024 9:00 AM PHOTOGRAPHY SALES ASSOCIATE 08/15/2024 10:24 AM PHOTOGRAPHY SALES ASSOCIATE Narrative [facility] ([place]) - 08/15/2024 10:31 AM PHOTOGRAPHY SALES ASSOCIATE Baseline prior to enoxaparin initiation. us Gayla Malcolm MD LAB BLOOD ORDERABLES Alanna dillan Result [facility] ([place]) 1 [facility] Department [place] [address] * (ABNORMAL) Comprehensive metabolic panel (08/15/2024 9:00 AM PHOTOGRAPHY SALES ASSOCIATE) Sodium 146(H) 135 - 145 mmol/L Comment:Testing performed by : [address] [address] Potassium, pl 4.5 3.3 - 4.9 mmol/L [facility] ([place]) Comment:Testing performed by : [facility], [address] [place] [address], [address] Chloride 108 97 - 110 mmol/L [facility] ([place]) Comment:Testing performed by : [address] [address] CO2 27 22 - 32 mmol/L [facility] ([place]) Comment:Testing performed by : [address] [address] Anion gap 11 2 - 15 mmol/L [facility] ([place]) Comment:Testing performed by : [address] [address] BUN 14 6 - 25 mg/dL [facility] ([place]) Comment:Testing performed by : [address], [address] Creatinine 0.77(L) 0.80 - 1.30 mg/dL [facility] ([place]) Comment:Testing performed by : [address], [address] Glucose 98 70 - 199 mg/dL FORREST [...] was last revised 2022. Testing performed by: [facility], [address] [place] [address]., [address] Calcium 8.8 8.5 - 10.3 mg/dL [facility] ([place]) Comment:Testing performed by : [address] [address] Bilirubin, total 0.3 0.1 - 1.2 mg/dL [facility] ([place]) Comment:Testing performed by : [address], [address] Protein, pl 7.2 6.5 - 8.5 g/dL [facility] ([place]) Comment:Testing performed by : [address] [address] Albumin 3.8 3.5 - 5.0 g/dL [facility] ([place]) Comment:Testing performed by : [address] [address] Alk phos 71 40 - 130 Units/L [facility] ([place]) Comment:Testing performed by : [address], [address] ALT 17 7 - 55 Units/L [facility] ([place]) Comment:Testing performed by : [address] [address] AST 32 10 - 50 Units/L [facility] ([place]) Comment:Testing performed by : [address], [address] Blood 08/15/2024 9:00 AM PHOTOGRAPHY SALES ASSOCIATE 08/15/2024 9:06 AM PHOTOGRAPHY SALES ASSOCIATE Gayla Malcolm MD LAB BLOOD ORDERABLES Alanna l Result [facility] [place] 1 [facility] Department [place] [address] * XR Chest PA Lateral 2 Views (08/15/2024 8:49 AM PHOTOGRAPHY SALES ASSOCIATE) Anatomical Region Laterality Modality Body, Chest N/A Computed Radiogr aphy 08/15/2024 9:00 AM PHOTOGRAPHY SALES ASSOCIATE Narrative 08/15/2024 9:01 AM PHOTOGRAPHY SALES ASSOCIATE EXAM DESCRIPTION: XR CHEST PA LATERAL 2 [...] Amari Roberts M.D. MM: MM Report ID: [id number] Reading Location: [id number] Procedure Note Amari Roberts MD - 08/15/2024 [...] Amari Roberts M.D. MM: MM Report ID: [id number] Reading Location: [place] [address] Gayla Malcolm MD IMG XR PROCEDURES Final R esult * COLONOSCOPY (07/16/2017 7:32 AM PHOTOGRAPHY SALES ASSOCIATE) Anatomical Region Laterality Modality Other Narrative Procedure Note Michael Bran MD - 07/16/2017 7:32 AM CST [facility] Patient Name: Js Contreras Procedure Date: 07/16/2017 7:32 AM Date of : 1950 Admit Type: Outpatient Age: 67 Gender: Male Attending MD: Michael Gonzalez M.D. Room: [facility] ENDOSCOPY ROOM 2 Note Status: Finalized Procedure: [...] scope was passed under direct vision.The Colonoscope [id number] was introducedthrough the anus and advanced to [...] 7:32 AM Procedure Code(s): --- Professional --- 29447, Colonoscopy, flexible; with removal of tumor(s), polyp(s), or other lesion(s) by snare technique Diagnosis Code(s): --- Professional --- Z86.010, Personal history of colonic polyps K64.8, Other hemorrhoids D12.5, Benign neoplasm of sigmoid colon K57.30, Diverticulosis of large intestine without perforation orabscess without bleeding CPT copyright 2014 [employer]. All rights reserved. The codes documented in this report are preliminary and upon rat trapper reviewmay be revised to meet current compliance requirements. Recognized by the [employer] for promoting quality in endoscopy Michael Shaw MD ENDOSCOPY PROCEDUR ES Final Result from Last 3 Months or Most Recently Relevant to Health Maintenance Insurance [employer] CHO[employer] MEDICARE PPO Member Subscriber Plan / Payer (Ef fective 2017-Present) Name:Js Contreras Relation to Subscriber:Self Name:Js Contreras Payer ID:[id number] (NAIC) Type:MEDICARE RISK OTHER Address: [address] MEDICARE MANAGED MEDICARE GENERIC RISK OTHER [employer] CHOICE MEDICARE PPO MEDICARE [facility] CARE AETNA MEDICARE GOLD [facility] CARE UHC MEDICARE ADVANTAGE Care Teams Order Dispatcher Relationship Specialty Start Date End Date Unknown, Notinfile PCP - General 07/09/23
--- OUTSIDE RECORDS SUMMARY | 2024-09-04 02:38 | XMS_ITS | Encounter Summary ---
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
--- OUTSIDE RECORDS SUMMARY | 2024-09-04 02:38 | XMS_ITS | Continuity of Care Document ---
Author Organization [employer] [facility] Address [address] [facility] [address] [place] [address] Phone Care Team Providers Care Marketing Traffic Coordinator Name Role Phone Screen, Clinician Unavailable Unavailable [...] Diagnoses Date Provider Providers Copied on Encounter [facility], [place], [place], [id number], [place] tel:[phone] [place] No Information Jan-0 9 Screen Clinician. . Referring Provider: Physician Calin. [facility], [place], [place], [id number], [place] tel:[phone] [place] No Information 9 Screen Clinician. . Referring Provider: Physician Screen. [facility], [place], [place], [id number], [place] tel:[phone] [place] Pain in left wristStiffness of left wrist, not elsewhere classifiedEffusion, left wristWeaknessPrimar y osteoarthritis, unspecified wrist Sep-0 9 Stern Katherin. [address] [place] [address], [address], [place], [place], [facility], . tel:[phone] Referring Provider: Karen Lazo [address] , [place], [address]. tel:[phone] [facility], [place], [place], [id number], [place] tel:[phone] [place] Pain in left wristStiffness of left wrist, not elsewhere classifiedEffusion, left wristWeaknessPrimar y osteoarthritis, unspecified wrist Sep-0 9 Stern Katherin. [address] [place] [address], [address], [place], [place], [facility], [place]. tel:[phone] Referring Provider: Kirby Rm [address] , [place], [address]. tel:[phone] [facility], [place], [place], [address], [place] tel:[phone] [place] Pain in left wristStiffness of left wrist, not elsewhere classifiedEffusion, left wristWeaknessPrimar y osteoarthritis, unspecified wrist Aug- 9 Stern Katherin. [address] [place] [address], [address], [place], [address], [place]. tel:[phone] Referring Provider: Kirby Rm, [address], [place], [address]. tel:[phone] [facility], [address], [place], [place], [address], [place] tel:[phone] [place] Pain in left wristStiffness of left wrist, not elsewhere classifiedEffusion, left wristWeaknessPrimar y osteoarthritis, unspecified wrist Mar-2 7-[address] [facility], [address], [place], [address], [place]. tel:[phone] Referring Provider: Kirby Rm, [address] , [place], [address]. tel:[phone] [facility], [address], [place], [place], [address], [place] tel:[phone] [place] Pain in left wristStiffness of left wrist, not elsewhere classifiedEffusion, left wristWeaknessPrimar y osteoarthritis, unspecified wrist Mar-1 9-201 9 Stern Katherin. [address] [place] [address], [address], [place], [address], [place]. tel:[phone] Referring Provider: Kirby Rm, [address], [place], [address]. tel:[phone] [facility], [place], [place], [id number], [place] tel:[phone] [place] Pain in left wristStiffness of left wrist, not elsewhere classifiedEffusion, left wristWeaknessPrimar y osteoarthritis, unspecified wrist Mar-1 8-[address] [facility], [address], [place], [address], [place]. tel:[phone] Referring Provider: Kirby Rm, [address], [place], [address]. tel:[phone] [facility], [place], [place], [id number], [place] tel:[phone] [place] Pain in left wristStiffness of left wrist, not elsewhere classifiedEffusion, left wristWeaknessPrimar y osteoarthritis, unspecified wrist Mar-1 5-201 9 Stern Katherin. [address] [place] [address], [address], [place], [address], [place]. tel:[phone] Referring Provider: Kirby mR, [address], [place], [address]. tel:[phone] [facility], [address], [place], [place], [id number], [place] tel:[phone] [place] Pain in left wristStiffness of left wrist, not elsewhere classifiedEffusion, left wristWeaknessPrimar y osteoarthritis, unspecified wrist Mar-1 3-201 9 Stern Katherin. [address] [place] [address], [address], [place], [address], [place]. tel:[phone] Referring Provider: Kirby Rm, [address], [place], [address]. tel:[phone] [facility], [address], [place], [place], [id number], [place] tel:[phone] [place] Pain in left wristStiffness of left wrist, not elsewhere classifiedEffusion, left wristWeaknessPrimar y osteoarthritis, unspecified wrist Mar-1 1-201 9 Stern Katherin. [address] [place] [address], [address], [place], [address], [place]. tel:[phone] Referring Provider: Kirby Rm, [address], [place], [address]. tel:[phone] [facility], [place], [id number], [place] tel:[phone] [place] Pain in left wristStiffness of left wrist, not elsewhere classifiedEffusion, left wristWeaknessPrimar y osteoarthritis, unspecified wrist Mar-0 8-201 9 Stern Katherin. [address] [place] [address], [address], [place], [address], [place]. tel:[phone] Referring Provider: Kirby Rm, [address] , [place], [address]. tel:[phone] [facility] [address], [place], [place], [address], [place] tel:[phone] [place] Pain in left wristStiffness of left wrist, not elsewhere classifiedEffusion, left wristWeaknessPrimar y osteoarthritis, unspecified wrist Mar-0 6-201 9 Stern Katherin. [address] [place] [address], [address], [place], [address], [place]. tel:[phone] Referring Provider: Kirby Rm, [address] , [place], [address]. tel:[phone] [facility] [address], [place], [place], [address], [place] tel:[phone] [place] Pain in left wristStiffness of left wrist, not elsewhere classifiedEffusion, left wristWeaknessPrimar y osteoarthritis, unspecified wrist Mar-0 4-201 9 Stern Katherin. [address] [place] [address], [address], [place], [address], [place]. tel:[phone] Referring Provider: Kirby Rm, [address] , [place], [address]. tel:[phone] [facility] [address], [place], [place], [address], [place] tel:[phone] [place] Pain in left wristStiffness of left wrist, not elsewhere classifiedEffusion, left wristWeaknessPrimar y osteoarthritis, unspecified wrist Mar-0 1-201 9 Stern Katherin. [address] [place] [address], [address], [place], [address], [place]. tel:[phone] Referring Provider: Kirby Rm, [address] , [place], [address]. tel:[phone] [facility] [address], [place], [place], [address], [place] tel:[phone] [place] Pain in left wristStiffness of left wrist, not elsewhere classifiedEffusion, left wristWeaknessPrimar y osteoarthritis, unspecified wrist Feb-2 7-201 9 Stern Katherin. [address] [place] [address], [address], [place], [facility], . tel:[phone] Referring Provider: Kirby Rm, [address] , [place], [address]. tel:[phone] [facility] [address], [place], [place], [address], [place] tel:[phone] [place] Pain in left wristStiffness of left wrist, not elsewhere classifiedEffusion, left wristWeaknessPrimar y osteoarthritis, unspecified wrist Feb-2 5-201 9 Stern Katherin. [address] [place] [address], [address], [place], [facility], [place]. tel:[phone] Referring Provider: Kirby Rm, [address] , [place], [address]. tel:[phone] [facility] [address], [place], [address], [place] tel:[phone] [place] Pain in left wristStiffness of left wrist, not elsewhere classifiedEffusion, left wristWeaknessPrimar y osteoarthritis, unspecified wrist Feb-2 1-201 9 Stern Katherin. [address] [place] [address], [address], [place], [facility], [place]. tel:[phone] Referring Provider: Kirby Rm, [address] , [place], [address]. tel:[phone] [facility] [address], [place], [place], [address], [place] tel:[phone] [place] Pain in left wristStiffness of left wrist, not elsewhere classifiedEffusion, left wristWeaknessPrimar y osteoarthritis, unspecified wrist Feb-2 0-201 9 Stern Katherin. [address] [place] [address], [address], [place], [facility], [place]. tel:[phone] Referring Provider: Kirby Rm, [address], [place], [address]. tel:[phone] [facility] [address], [place], [address], [place] tel:[phone] [place] Pain in left wristStiffness of left wrist, not elsewhere classifiedEffusion, left wristWeaknessPrimar y osteoarthritis, unspecified wrist [address] [facility], [address], [place], [address], [place]. tel:[phone] Referring Provider: Kirby Rm, [address], [place], [address]. tel:[phone] [facility] [address], [place], [address], [place] tel:[phone] [place] Pain in left wristStiffness of left wrist, not elsewhere classifiedEffusion, left wristWeakness 9 Stern Katherin. [address] [place] [address], [address], [place], [address], [place]. tel:[phone] Referring Provider: Kirby Rm, [address] , [place], [address]. tel:[phone] [facility] [address], [place], [place], [address], [place] tel:[phone] [place] Pain in left wristStiffness of left wrist, not elsewhere classifiedEffusion, left wristWeakness [address] [facility], [address], [place], [address], [place]. tel:[phone] Referring Provider: Kirby Rm, [address], [place], [address]. tel:[phone] [facility] [address], [place], [place], [address], [place] tel:[phone] [place] Pain in left wristStiffness of left wrist, not elsewhere classifiedEffusion, left wristWeakness Feb-1 1-[address] [facility], [place] [address], . tel:[phone] Referring Provider: Kirby Rm [address] [facility], [place], [address]. tel:[phone], [id number], tel:[phone] [place] Pain in left wristStiffness of left wrist, not elsewhere classifiedEffusion, left wristWeakness Feb-0 8-201 9 Jarred Pandey. [address] [place] [address], [address], [facility], . tel:[phone] Referring Provider: Kirby Rm, [address] [facility], [place], [address]. tel:[phone], [place], [place], [address], tel:[phone] [place] Pain in left wristStiffness of left wrist, not elsewhere classifiedEffusion, left wristWeakness Feb-0 6-201 9 Jarred Pandey. [address] [place] [address], [address], [facility], . tel:[phone] Referring Provider: Kirby Rm, [address] [facility], [place], [address]. tel:[phone] Family History Family Member Type Diagnosis Age [...]
--- OUTSIDE RECORDS SUMMARY | 2024-09-04 02:38 | XMS_ITS | Clinical Summary ---
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 Scapholunate ligament injury , no instability, left, initial encounter 12/28/2017 Encounters Date Type Department Care Team Description 08/31/2024 Orders Only [facility] Cardiology [address] [place] [address] Linda Dang MD 08/30/2024 Orders Only [facility] Cardiology [address] [facility] [address] [place] [phone] Linda Dang MD 08/22/2024 5:19 PM CDT - 08/22/2024 8:28 PM CDT Emergency [facility] Emergency Department 1 [place] [address] Discharge Disposition: Left without being seen 08/15/2024 8:47 AM PATTERNMAKER WOOD - 08/15/2024 3:05 PM PATTERNMAKER WOOD Emergency [facility] Emergency Department 1 [place] [address] Gayla Malcolm MD Atrial fibrillation with controlled ventricular rate (HCC) (Primary Dx); Acute on chronic combined systolic and diastolic congestive heart failure (HCC) Discharge Disposition: Discharge to home or self care 07/13/2024 Telephone [facility] Orthopedics and Sports Medicine [address] [facility] [address] [place] [address] Chris Tolentino MD from Last 3 Months [...] on file Legal Sex Male 1:47 AM PATTERNMAKER WOOD Gender Identity Not on file Sexual Orientation [...] history exists Medical Devices Implanted Type Area Mixed [employer] Worker Device Identifier Shelf Expiration Date Model / Serial / Lot m-[employer] 8600-5x05 Graftjacket [id number] Regenerative Nonmesh Standard Graft - [id number] Implanted:Qty: 1 on 07/06/2018 by Kirby Rm III, MD at [facility] Left: Wrist m-[employer] 01/13/2020 8600-5X05 / / [id number] Procedures Procedure Name Priority Date/Time Associated [...] T HIGH-SENSITIVITY 2-HOUR Timed 08/15/2024 11:29 AM PATTERNMAKER WOOD URINALYSIS AND REFLEX TO MICROSCOPIC AND CULTURE STAT 08/15/2024 11:29 AM PATTERNMAKER WOOD EGFR STAT 08/15/2024 10:37 AM PATTERNMAKER WOOD HEPATIC FUNCTION PANEL STAT 10:37 AM PATTERNMAKER WOOD PRO B-TYPE NATRIURETIC PEPTIDE Add-On 08/15/2024 10:37 AM PATTERNMAKER WOOD CREATININE STAT 08/15/2024 10:37 AM PATTERNMAKER WOOD CBC WITHOUT DIFFERENTIAL STAT 08/15/2024 10:37 AM PATTERNMAKER WOOD TROPONIN T HIGH-SENSITIVITY 2-HOUR Timed 08/15/2024 10:37 AM PATTERNMAKER WOOD EGFR STAT 08/15/2024 9:00 AM PATTERNMAKER WOOD APTT STAT 08/15/2024 9:00 AM PATTERNMAKER WOOD PROTIME-INR STAT 08/15/2024 9:00 AM PATTERNMAKER WOOD DIFFERENTIAL AUTO STAT 08/15/2024 9:0 0 AM PATTERNMAKER WOOD TROPONIN T HIGH-SENSITIVITY SERIES (BASELINE, 2HR, 4HR, 6HR) STAT 08/15/2024 9:00 AM PATTERNMAKER WOOD CBC WITH AUTO DIFFERENTIAL STAT 08/15/2024 9:00 AM PATTERNMAKER WOOD COMPREHENSIVE METABOLIC PANEL STAT 08/15/2024 9:00 AM PATTERNMAKER WOOD INFLUENZA A/B, RSV, AND COVID-19 PCR STAT 08/15/2024 9:00 AM PATTERNMAKER WOOD XR CHEST PA LATERAL 2 VIEWS ED 08/15/2024 8:49 AM PATTERNMAKER WOOD ECG 12-LEAD STAT 08/15/2024 8:26 AM PATTERNMAKER WOOD COLONOSCOPY 07/16/2017 7:32 AM PATTERNMAKER WOOD from Last 3 Months or Most Recently [...] ORDERABLES Final Result [facility] ([place]) [address] [facility] Department [place] [address] * (ABNORMAL) Pro B-type natriuretic peptide (08/22/2024 [...] BLOOD ORDERABLES Final Resu lt [facility] ([place]) [address] [facility] [place] [address] * (ABNORMAL) CBC with auto differential (08/22/2024 [...] NRBC abs 0.00 0.00 - 0.01 K/cumm [facility] ([place] Blood Venous blood specimen / Unknown 08/22/2024 5:36 PM CDT 08/22/2024 5:40 PM CDT Timo Holder MD LAB BLOOD ORDERABLES Final Result [facility] ([place]) [address] [facility] [place] [address] * (ABNORMAL) Manual Differential (08/22/2024 5:36 PM CDT) Pathologist [facility] Differential Manual Cells Counted 100 [facility] [...] BLOOD ORDERABLES Final Result Performing Organization Address City/[facility]/ZIP Co de Phone Number [facility] ([place]) [address] [facility] [employer] [place] [address] * Lipase (08/22/2024 5:36 PM CDT) Lipase 95 10 - 99 Units/L Blood Venous blood specimen / Unknown 08/22/2024 5:36 PM CDT 08/22/2024 5:40 PM CDT Timo Holder MD LAB BLOOD ORDERABLES Final Result [facility] ([place]) 1 [facility] [place] [employer] [place] [address] * Comprehensive metabolic panel (08/22/2024 5:36 PM [...] Holder MD LAB BLOOD ORDERABLES Final Result [facility] ([place]) [address] [facility] [place] [address] * (ABNORMAL) Troponin T high-sensitivity 2-hour (08/15/2024 11:29 AM PATTERNMAKER WOOD) Trop T hs 26(H) <=22 ng/L Comment: [...] hs interp See Comment C ERNER MADDI ([place]) Comment:unable to calculate Blood 08/15/2024 11:2 9 AM PATTERNMAKER WOOD 08/15/2024 11:31 AM PATTERNMAKER WOOD us Gayla Malcolm MD LAB BLOOD ORDERABLES Alanna grimaldo Result [facility] ([place]) [address] [facility] [place] [address] * Urinalysis reflex to microscopic and culture Urine (08/15/2024 11:29 AM PATTERNMAKER WOOD) Color, ur Straw Yellow Clarity, ur Clear [...] tendency for uric acid stone formation. Source: [facility] [employer] Current Interpretive Data was last revised on 2017 Protein, ur ql Negative Negative [facility] ([place]) Glucose, ur ql Negative Negative [facility] ([place]) Ketones, ur Negative Negative [facility] ([place]) Bilirubin, ur Negative Negative [facility] ([place]) Blood, ur Negative Negative [facility] ([place]) Urobilinogen, ur <2.0 <2.0 mg/dL [facility] ([place]) Nitrite, ur Negative Negative [facility] ([place]) Leukocyte esterase, ur Negative Negative [facility] ([place]) UA reflex comment Reflex conditions for microscopic UA and culture not met. [facility] ([place]) Urine 08/15/2024 11:2 9 AM PATTERNMAKER WOOD 08/15/2024 11:31 AM PATTERNMAKER WOOD Gayla Malcolm MD LAB MICROBIOLOGY - GENERA L ORDERABLES Final Result Performing Organization Address [facility] Co de Phone Number [facility] 1 [facility] [place] [address] * (ABNORMAL) Troponin T high-sensitivity 2-hour (08/15/2024 10:37 AM PATTERNMAKER WOOD) Trop T hs 26(H) <=22 ng/L Comment: Interpretive Data For further hscTnT resources including the diagnostic algorithm and an aid in interpretation, copy and paste this link: https://nrl.testcatalog.org/show/hsTrop Current Interpretive Data last revised 2020. Trop T hs interp See Comment C ELISA [facility] ([place]) Comment:Delta calculation an d interpretation not available. Blood 08/15/2024 10:3 7 AM PATTERNMAKER WOOD 08/15/2024 10:38 AM PATTERNMAKER WOOD Gayla Malcolm MD LAB BLOOD ORDERABLES Alanna l Result Performing Organization Address City/[facility]/ZIP Co de Phone Number [facility] 1 [facility] [place] [address] * eGFR (08/15/2024 10:37 AM PATTERNMAKER WOOD) eGFR >90 >=60 mL/min/1. 73 m2 Comment: [...] reviewed 2021. Blood 08/15/2024 10:3 7 AM PATTERNMAKER WOOD 08/15/2024 10:39 AM PATTERNMAKER WOOD us Gayla Malcolm MD LAB BLOOD ORDERABLES Alnana grimaldo Result [facility] ([place]) [address] [facility] Department of Laboratories [place], [place] [id number] * (ABNORMAL) Pro B-type natriuretic peptide (08/15/2024 10:37 AM PATTERNMAKER WOOD) NT-proBNP 4,819(H) <=450 pg/mL Comment: Interpretive Comments: [...] Date: 2018. Blood 08/15/2024 10:3 7 AM PATTERNMAKER WOOD 08/15/2024 10:39 AM PATTERNMAKER WOOD us Gayla Malcolm MD LAB BLOOD ORDERABLES Edit ed Result - Final [facility] ([place]) [address] [facility] [place] [address] * (ABNORMAL) CBC without differential (08/15/2024 10:37 AM PATTERNMAKER WOOD) WBC 8.8 3.8 - 9.9 K/cumm Hgb [...] [facility] ([place]) Blood 08/15/2024 10:3 7 AM PATTERNMAKER WOOD 08/15/2024 10:38 AM PATTERNMAKER WOOD Narrative [facility] ([place]) - 08/15/2024 10:41 AM PATTERNMAKER WOOD Baseline prior to enoxaparin initiation. Gayla Malcolm MD LAB BLOOD ORDERABLES Alanna l Result [facility] ([place]) 1 [facility] [place] [address] * (ABNORMAL) Creatinine (08/15/2024 10:37 AM PATTERNMAKER WOOD) Creatinine 0.72(L) 0.80 - 1.30 mg/dL Blood 08/15/2024 10:3 7 AM PATTERNMAKER WOOD 08/15/2024 10:39 AM PATTERNMAKER WOOD Narrative [facility] ([place]) - 08/15/2024 11:27 AM PATTERNMAKER WOOD Baseline prior to enoxaparin initiation. Gayla Malcolm MD LAB BLOOD ORDERABLES Alanna l Result Performing Organization Address City/[facility] Co de Phone Number [facility] ([place]) [address] [facility] [place] [address] * Hepatic function panel (08/15/2024 10:37 AM PATTERNMAKER WOOD) Bilirubin, total 0.3 0.1 - 1.2 mg/dL [...] [facility] ([place]) Blood 08/15/2024 10:3 7 AM PATTERNMAKER WOOD 08/15/2024 10:39 AM PATTERNMAKER WOOD Gayla Malcolm MD LAB BLOOD ORDERABLES Alanna l Result Performing Organization Address [facility] Co de Phone Number [facility] STARKN) [address] [place] [address] [place] [address] * (ABNORMAL) Troponin T high-sensitivity series (baseline, 2hr, 4hr, 6hr) (08/15/2024 9:00 AM PATTERNMAKER WOOD) Pathologist [facility] Trop T hs 23(H) <=22 ng/L Comment: Interpretive Data For further hscTnT resources including the diagnostic algorithm and an aid in interpretation, copy and paste this link: https://nrl.testcatalog.org/show/hsTrop Current Interpretive Data last revised 2020. Testing performed by: [facility], [address] [place] [address]., [id number] Blood 08/15/2024 9:00 AM PATTERNMAKER WOOD 08/15/2024 9:06 AM PATTERNMAKER WOOD Gayla Malcolm MD LAB BLOOD ORDERABLES Alanna l Result Performing Organization Address [facility] Co de Phone Number [place]) [address] [place] [address] [place] [address] * Influenza A/B, RSV, and COVID-19 PCR Nasopharyngeal (08/15/2024 9:00 AM PATTERNMAKER WOOD) [facility] COVID-19 RNA Negative Negative Influenza A RNA Negative Negative [facility] ([place]) Influenza B RNA Negative Negative [facility] ([place]) RSV RNA Negative Negative [facility] ([place]) Comment: Interpretive data: Testing performed by [facility]. This test is performed using the Kontest Xpert Xpress CoV-2/Flu/RSV plus assay. This is a multiplex, real- time reverse transcriptase PCR assay intended for the qualitative detection of nucleic acid from SARS-CoV-2, influenza A, influenza B, and respiratory syncytial virus. This assay has been cleared by the [place] Food and Drug administration. The performance characteristics have been verified by the [facility]. Results must be considered in the clinical context, and a negative result does not rule out infection. Interpretive Data last revised 2023 Nasopharyngeal 08/15/2024 9: 00 AM PATTERNMAKER WOOD 08/15/2024 9:06 AM PATTERNMAKER WOOD Narrative [facility] BREWER) - 08/15/2024 9:50 AM PATTERNMAKER WOOD Is the Patient experiencing symptoms consistent with COVID?->Yes Gayla Malcolm MD LAB MICROBIOLOGY - GENERA L ORDERABLES Final Result [facility] [place]) [address] [facility] Department [place] [address] * eGFR (08/15/2024 9:00 AM PATTERNMAKER WOOD) eGFR >90 >=60 mL/min/1. 73 m2 Comment: [...] was last reviewed 2021. Testing performed by: [facility], [address] [place] [address], [place]., [address] Blood 08/15/2024 9:00 AM PATTERNMAKER WOOD 08/15/2024 10:54 AM PATTERNMAKER WOOD Gayla Malcolm MD LAB BLOOD ORDERABLES Alanna l Result [facility] ([place]) [address] [facility] Department [place] [address] * Differential, auto (08/15/2024 9:00 AM PATTERNMAKER WOOD) Neutrophil abs 4.5 1.5 - 6.5 K/cumm [...] revised on 2017. Blood 08/15/2024 9:00 AM PATTERNMAKER WOOD 08/15/2024 9:06 AM PATTERNMAKER WOOD Gayla Malcolm MD LAB BLOOD ORDERABLES Alanna l Result [facility] ([place]) [address] [facility] [place] [address] * (ABNORMAL) CBC with auto differential (08/15/2024 9:00 AM PATTERNMAKER WOOD) WBC 8.1 3.8 - 9.9 K/cumm Hgb [...] [facility] ([place]) Blood 08/15/2024 9:00 AM PATTERNMAKER WOOD 08/15/2024 9:06 AM PATTERNMAKER WOOD Gayla Malcolm MD LAB BLOOD ORDERABLES Alanna l Result [facility] STARK[facility]) 1 [facility] [employer] [place] [address] * aPTT (08/15/2024 9:00 AM PATTERNMAKER WOOD) aPTT 36 28 - 38 sec [facility] ([place]) Comment: Interpretive Data Heparin therapeutic range: 66.0 - 100.0 seconds. Range based on correlation with therapeutic heparin activity range of 0.3 - 0.7 Units/mL. Current interpretive data was last revised on 2023. Blood 08/15/2024 9:00 AM PATTERNMAKER WOOD 08/15/2024 10:24 AM PATTERNMAKER WOOD Narrative [facility] ST[facility]) - 08/15/2024 10:31 AM PATTERNMAKER WOOD Baseline prior to enoxaparin initiation. us Gayla Malcolm MD LAB BLOOD ORDERABLES Alanna l Result Performing Organization Address [facility] Co de Phone Number [facility] [place]) 1 [facility] [employer] [place] [address] * Protime-INR (08/15/2024 9:00 AM PATTERNMAKER WOOD) PT 12.8 9.7 - 13.0 sec [facility] ([place]) INR 1.18 0.90 - 1.20 [facility] ([place]) Comment: Interpretive data Oral anticoagulant therapeutic ranges: Venous thromboembolism prophylaxis or treatment: 2.0-3.0 CARDIOLOGY Standard range: 2.0-3.0 High-intensity range: 2.5-3.5 Refer to indication-specific guidelines for appropriate target ranges for prosthetic heart valve replacement. Current interpretive data was last revised on 2019. Blood 08/15/2024 9:00 AM PATTERNMAKER WOOD 08/15/2024 10:24 AM PATTERNMAKER WOOD Narrative [facility] BRE[facility]) - 08/15/2024 10:31 AM PATTERNMAKER WOOD Baseline prior to enoxaparin initiation. us Gayla Malcolm MD LAB BLOOD ORDERABLES Alanna l Result Performing Organization Address [facility]/ZIP Co de Phone Number [facility] GomezEVELYN) [address] [facility] Department [place] [address] * (ABNORMAL) Comprehensive metabolic panel (08/15/2024 9:00 AM PATTERNMAKER WOOD) Sodium 146(H) 135 - 145 mmol/L Comment:Testing performed by : [facility], [address] [place] [address]., [address] Potassium, pl 4.5 3.3 - 4.9 mmol/L [facility] ([place]) Comment:Testing performed by : [facility], [address] [place] [address]., [address] Chloride 108 97 - 110 mmol/L [facility] ([place]) Comment:Testing performed by : [address] [address] CO2 27 22 - 32 mmol/L [facility] ([place]) Comment:Testing performed by : [address] [address] Anion gap 11 2 - 15 mmol/L [facility] ([place]) Comment:Testing performed by : [facility], [address] [place] [address]., [address] BUN 14 6 - 25 mg/dL [facility] ([place]) Comment:Testing performed by : [address] [address] Creatinine 0.77(L) 0.80 - 1.30 mg/dL [facility] ([place]) Comment:Testing performed by : [address] [address] Glucose 98 70 - 199 mg/dL C[facility]ER [...] was last revised 2022. Testing performed by: [address] [place]., [address] Calcium 8.8 8.5 - 10.3 mg/dL [facility] ([place]) Comment:Testing performed by : [facility], [address] [place] [address], [address] Bilirubin, total 0.3 0.1 - 1.2 mg/dL [facility] ([place]) Comment:Testing performed by : [address], [address] Protein, pl 7.2 6.5 - 8.5 g/dL [facility] ([place]) Comment:Testing performed by : [facility], [address] [place] [address], [address] Albumin 3.8 3.5 - 5.0 g/dL [facility] ([place]) Comment:Testing performed by : [address], [address] Alk phos 71 40 - 130 Units/L [facility] ([place]) Comment:Testing performed by : [address], [address] ALT 17 7 - 55 Units/L [facility] ([place]) Comment:Testing performed by : [facility], [address] [place] [address], [address] AST 32 10 - 50 Units/L [facility] ([place]) Comment:Testing performed by : [address], [address] Blood 08/15/2024 9:00 AM PATTERNMAKER WOOD 08/15/2024 9:06 AM PATTERNMAKER WOOD Gayla Malcolm MD LAB BLOOD ORDERABLES Alanna l Result [facility] ([place]) 1 [facility] Department [place] [address] * XR Chest PA Lateral 2 Views (08/15/2024 8:49 AM PATTERNMAKER WOOD) Anatomical Region Laterality Modality Body, Chest N/A Computed Radiogr aphy 08/15/2024 9:00 AM PATTERNMAKER WOOD Narrative 08/15/2024 9:01 AM PATTERNMAKER WOOD EXAM DESCRIPTION: XR CHEST PA LATERAL 2 [...] Amari Roberts M.D. MM: MM Report ID: [id number] Reading Location: [id number] Procedure Note Amari Roberts MD - 08/15/2024 [...] Amari Roberts M.D. MM: MM Report ID: [id number] Reading Location: [id number] Gayla Malcolm MD IMG XR PROCEDURES Final R esult * COLONOSCOPY (07/16/2017 7:32 AM PATTERNMAKER WOOD) Anatomical Region Laterality Modality Other Narrative Procedure Note Michael Bran MD - 07/16/2017 7:32 AM CST [facility] Patient Name: Js Contreras Procedure Date: 07/16/2017 7:32 AM Date of : 1950 Admit Type: Outpatient Age: 67 Gender: Male Attending MD: Michael Gonzalez M.D. [facility] 2 Note Status: Finalized [...] scope was passed under direct vision.The Colonoscope [id number] was introducedthrough the anus and advanced to [...] 7:32 AM Procedure Code(s): --- Professional --- 47491, Colonoscopy, flexible; with removal of tumor(s), polyp(s), or other lesion(s) by snare technique Diagnosis Code(s): --- Professional --- Z86.010, Personal history of colonic polyps K64.8, Other hemorrhoids D12.5, Benign neoplasm of sigmoid colon K57.30, Diverticulosis of large intestine without perforation orabscess without bleeding CPT copyright 2014 [employer]. All rights reserved. The codes documented in this report are preliminary and upon historic preservationist reviewmay be revised to meet current compliance requirements. Recognized by the [employer] for promoting quality in endoscopy Michael Shaw MD ENDOSCOPY PROCEDUR ES Final Result from Last 3 Months or Most Recently Relevant to Health Maintenance Insurance [employer] CHOICE MEDICARE PPO Member Subscriber Plan / Payer (Ef fective 2017-Present) Name:Js Contreras Relation to Subscriber:Self Name:Js Contreras Payer ID:[id number] (NAIC) Type:MEDICARE RISK OTHER Address: [address] MEDICARE [facility] MEDICARE GENERIC RISK OTHER [facility] CHOICE MEDICARE PPO MEDICARE [facility] AETNA MEDICARE [facility] UHC MEDICARE ADVANTAGE Care Teams Mapping Specialist Relationship Specialty Start Date End Date Unknown, Notinfile PCP - General 07/09/23
--- OUTSIDE RECORDS SUMMARY | 2024-09-04 02:38 | XMS_ITS | Encounter Summary ---
Author Organization [facility] Address [address] [place] [address] Care Team Providers Care Plycor Operator Name Role Phone Unknown, Notinfile Primary Care Provider Unavail able Encounter Details Date Type Department Care Team (Late st Contact Info) Description 08/31/2024 Orders Only [facility] Cardiology [address] [place] [address] Linda Dang MD [address] [place] [id number] Social History Tobacco Use Types Packs/Day [...] on file Legal Sex Male 1:47 AM SPECIAL AGENT Gender Identity Not on file Sexual Orientation [...] on filedocumented in this encounter Care Teams Plycor Operator Relationship Specialty Start Date End Date Unknown, Notinfile PCP - General 07/09/23 documented as of this encounter
--- OUTSIDE RECORDS SUMMARY | 2024-09-04 02:38 | XMS_ITS | Clinical Summary ---
Author Organization [facility] Address [address] [place] [address] Phone Care Team Providers Care Production Planning Manager Name Role Phone Chris Tolentino MD Unavailable [...] Covid-19 Vaccine, Vector-nr, Rs-ad26, Pf, 0.5 Ml ([employer]) 08/23/2020 Hepatitis A And Hepatitis B Vaccine [...] topic Insurance MEDICARE C HUMANA Care Teams Production Planning Manager Relationship Specialty Start Date End Date Provider, None [place] PCP - General 05/10/21 Chris Tolentino MD Consulting Physician Orthopaedic Sports Medicine 04/07/18 Terra Pineda MD [address] [address] Consulting Physician Internal Medicine 04/07/18
[2024-09-04] MEDS: FUROSEMIDE INJ 40 MG/4 ML VIAL IV PUSH ×3 (02:55→21:15)
--- NOTE | 2024-09-04 06:02 | ADMGEN ---
This patient, Js Contreras, was admitted to Medical Room [facility]601. Patient/family oriented to hospital policies and general routines including ID bracelet, bed and alarms, visiting hours, pain management, procedures, bathroom and other care routines, personal items, smoking policy, room service/diet, and visiting hours. Information on how to activate the Rapid Response Team has been discussed. Patient/Family are encouraged to report perceived risks to care and to ask questions if they do not understand what they are told or what they should do.
--- NOTE | 2024-09-04 07:18 | P.HP_ITS ---
H&P: HPI History of Present Illness Date/Time: 09/04/24 07:18 Chief Complaint: lower extremity swelling Narrative: 74-year-old male with a significant past medical history hyperlipidemia, hypertension, Vitamin D3 deficiency, CHF, cocaine and marijuana abuse who presented to the hospital with complaint lower extremity swelling and shortness of breath with exertion. Patient previously admitted on 08/23-08/28 for heart failure exacerbation, possible afib rvr, and small bowel obstruction secondary to incarcerated umbilical hernia s/p robotic assisted repair incarcerated umbilical hernia measuring 4.5 cm, myofascial release x2 on 08/[address] Lewis. Patient evaluated by cardiology during this admission. He remained on lasix 40 mg daily and was converted from Lopressor 50 mg p.o. b.i.d. to Toprol 100 mg p.o. daily. He was unable to have further GDMT medications added to his regimen as his blood pressure could not tolerate. Patient states that after discharge he stopped taking all medications. He notes that he got the prescriptions filled but would forget to take them everyday. He states that the shortness of breath has been ongoing since discharge but has continued to get worse of the past week. He denies any cough, fever, sick contacts. He then noticed that his legs began to swell 2-3 days ago which prompted him to be evaluated at the hospital. He denies any chest pain, palpitations, nausea/vomiting and abdominal pain. Patient is lethargic during assessment, intermittently falling asleep. He notes that he snores ngihtly, often wakes gasping for air, and is fatigued upon waking. He denies prior sleep studies. Discussed code status with patient and he states he wishes to be a DNR at this time. Ensured patient understood that DNR means no resuscitation efforts would be made. He stated understanding and wished to proceed with the code status change. ED workup: CBC with WBC 12.1, H/H 10.8/34.9, PLT 401. PT/INR 12.9/1.0. PTT 28.9. CMP Na 139, K 4.6. BUN/Cr 27/1.31 with GFR 53. Glucose 94. Lactic acid 1.1. Calcium 9.2. LFTs WNL. BNP 59278. UA non concerning for infection. Viral panel negative. Head CT showing no acute intracranial hemorrhage or suspicious mass effect. Chest XR showing cardiomegaly and moderate pulmonary vascular congestion without focal infiltrate. Echo 08/23 showed LVEF 40-45% with grade I diastolic dysfunction, pulmonary hypertension, mod mitral valve regurgitation, and mild tricuspid valve regurgitation. Review of Systems Review of Systems: All systems reviewed & are unremarkable except as noted in HPI and below [facility] Past Medical History Medical History Hypertension Hyperlipidemia Vitamin D deficiency Substance abuse Atrial fibrillation Congestive heart failure Surgical History Surgical History H/O hemorrhoidectomy History of appendectomy History of carpal tunnel release Family History Family History Mother Parkinson disease Father Alcohol abuse Social History Social History (Updated 09/04/24 @ 13:19 by Desirae Tyson PA-C) Social History: Lives with grand daughter (13 year old) 1 dog Smoking status: Never smoker Alcohol intake: never Substance use: current Substance use type: marijuana and crack/cocaine Other substance usage details: once in while, last used 2 weeks ago Do You Feel Safe in your Home?: Yes Lack of Transportation: No Lack of Food: Never True Current Housing: I Have Housing Concerned About Future Housing: No Difficulty Paying Gas/Electric Bills: No Difficulty Paying for Meds: No Currently Unemployed: No Education: High School Diploma/GED Difficulty w/ Childcare or Family Care: No Spiritual care concerns: No Meds Home Medications and Allergies Home Medications ?Medication ?Instructions ?Recorded ?Confirmed ?Type aspirin 81 mg chewable tablet 81 mg PO DAILY 08/23/24 09/04/24 History cholecalciferol (vitamin D3) 50 2,000 unit PO DAILY 08/23/24 09/04/24 History mcg (2,000 unit) capsule albuterol sulfate 90 mcg/actuation 1 inh inhalation QID PRN shortness 08/28/24 09/04/24 Rx aerosol inhaler (Ventolin HFA) of breath or wheezing #8.5 grams furosemide 40 mg tablet 40 mg PO DAILY #30 tabs 08/28/24 09/04/24 Rx metoprolol succinate 100 mg 100 mg PO QAM #60 tabs 08/28/24 09/04/24 Rx tablet,extended release 24 hr (Toprol XL) potassium chloride 20 mEq oral 20 meq PO DAILY #30 ea 08/28/24 09/04/24 Rx packet rosuvastatin 20 mg tablet (Crestor) 10 mg (1/2 x 20 mg) PO HS #30 tabs 08/28/24 09/04/24 Rx Allergies Allergy/AdvReac Type Severity Reaction Status Date / Time No Known Drug Allergies Allergy Other Verified 08/24/24 11:06 Vital Signs Vital Signs - 24 hr 09/04/24 01:18 09/04/24 02:43 09/04/24 03:17 Temperature 97.4 F L Pulse Rate 96 82 Respiratory Rate 15 17 Blood Pressure 146/94 H 147/61 H Pulse Oximetry 94 94 97 Oxygen Delivery Room Air Nasal Cannula Oxygen Flow Rate 2 09/04/24 04:05 09/04/24 05:52 Temperature Pulse Rate 86 82 Respiratory Rate 17 15 Blood Pressure 132/66 128/88 Pulse Oximetry 96 98 Oxygen Delivery Oxygen Flow Rate Exam Narrative: AF HR 74 RR 16 SpO2 95 BP 105/70 General: male in no acute respiratory distress who is nontoxic appearing, lying semi recumbent in bed. HEENT: Normocephalic. Atraumatic. Extraocular movement intact. Sclera clear and anicteric. No facial asymmetry. Neck: Neck was supple. No dominant adenopathy, thyromegaly or masses. Chest: Lungs are clear to the uppers with bibasilar crackles to auscultation. No wheezes. CV: Heart was regular rate and rhythm. S1/S2. No murmurs, gallops, or rubs. Abd: Abdomen was soft. Nontender. Nondistended. Positive bowel sounds. Ext: No clubbing, cyanosis. 3+ pitting edema BLE. DP pulses bilaterally. Neuro: Patient is alert and oriented x4. Strength is 5/5 in both upper and lower extremities. Speech is clear. Psych: Normal mood and affect. Patient is pleasant and cooperative. Drowsy, intermittently falling asleep during assessment. H&P: Results Labs Labs: Short CBC 09/04/24 Range/Units 01:29 WBC 12.1 H (4.5-10.0) K/mm3 Hgb 10.8 L (14.0-18.0) g/dL Hct 34.9 L (42.0-52.0) % Plt Count 401 H (150-375) k/mm3 BMP 09/04/24 01:29 Sodium 139 Potassium 4.6 Chloride 100 Carbon Dioxide 29 BUN 27 H D Creatinine 1.31 H Glucose 94 Calcium 9.2 Liver Function 09/04/24 Range/Units 01:29 Total Bilirubin 0.6 (0.2-1.3) mg/dL AST 55 (17-59) U/L ALT 39 (6-50) U/L Alkaline Phosphatase 77 (38-126) U/L Albumin 4.0 (3.5-5.1) g/dL Urine 09/04/24 Range/Units 01:36 Urine Color Yellow (Yellow) Urine Appearance Clear (Clear) Urine pH 5.5 (5.0-9.0) Ur Specific [place] 1.016 (1.001-1.035) Urine Protein 1+ H (Negative) mg/dL Urine Glucose (UA) 2+ H (Negative) mg/dL Impressions Chest X-Ray 09/04/24 12:05 IMPRESSION: Cardiomegaly and moderate pulmonary vascular congestion without focal infiltrate. Renal Ultrasound 09/04/24 12:39 IMPRESSION: No hydronephrosis or renal calculi. Free fluid within the left paracolic gutter and within the pelvis, consistent with recent CT examination. Simple cyst within the right kidney for which no further follow-up is needed. Assessment and Plan Assessment and plan (1) Acute hypoxic respiratory failure: Code(s): J96.01 - Acute respiratory failure with hypoxia Status: Acute Assessment and Plan: - SpO2 per nursing note at 0300 dropped to 85% on room air while patient sleeping, placed on 2L NC - Oxygen supplementation: 2L NC, wean as tolerated to maintain SPO2 >90 - Suspected cause: CHF exacerbation vs possible nocturnal hypoxia vs JAM - See CHF plan below - Patient is lethargic, intermittently falling asleep during assessment ABG ordered Head CT showing no acute intracranial hemorrhage or suspicious mass effect - Concern for possible JAM, patient denies previous sleep study. Notes that he snores nightly, often wakes unable to catch breath, and feels fatigued most mornings. Apnea link ordered. (2) Acute exacerbation of CHF (congestive heart failure): Qualifiers: Heart failure type: unspecified Qualified Code(s): I50.9 - Heart failure, unspecified Code(s): I50.9 - Heart failure, unspecified Status: Acute Assessment and Plan: During prior admission evaluated by cardiology. Patient remained on lasix 40 mg daily and lopressor 50 mg p.o. b.i.d converted to Toprol 100 mg p.o. daily. Blood pressures at that time were not able tolerate any further additional guideline directed medical therapy - Symptoms: shortness of breath with exertion and lower extremity edema - Current medications: lasix 40 mg IV BID, metoprolol 100 mg daily - BNP: 47138 - EKG: sinus rhythm - Chest XR: Cardiomegaly and moderate pulmonary vascular congestion without focal infiltrate. - Echo 08/23 showed LVEF 40-45% with grade I diastolic dysfunction, pulmonary hypertension, mod mitral valve regurgitation, and mild tricuspid valve regurgitation. - 3+ pitting edema BLE on exam. +/- afib history on chart review and patient only on asa. Venous dopplers ordered. - IS - Monitor vital signs, I&Os, BUN/creatinine, daily weights, neuro status and patient is a fall risk - Monitor serum electrolytes, Keep serum Potassium>4 and serum Magnesium>2 and CBC (3) Acute kidney injury: Code(s): N17.9 - Acute kidney failure, unspecified Status: Acute Assessment and Plan: BUN/Cr 27/1.31 with GFR 53 on admission. Previously WNL. Possible renal congestion secondary to fluid overload related to heart failure exacerbation Patient denies poor oral intake - renal US no hydronephrosis or renal calculi, free fluid within the left paracolic gutter and within the pelvis, simple cyst within the right kidney - Avoid nephrotoxic medications - Renally dose medications - Monitor I/O (4) Hypertension: Code(s): I10 - Essential (primary) hypertension Status: Chronic Assessment and Plan: chronic - lasix 40 mg IV BID for CHF exacerbation - metoprolol 100 mg daily - blood pressures reviewed and remain stable, continue to monitor (5) Substance abuse: Code(s): F19.10 - Other psychoactive substance abuse, uncomplicated Status: Chronic Assessment and Plan: Patient uses cocaine and marijuana, states last used 2 weeks ago at his sons birthday alliance party. Quality VTE Prophylaxis VTE prophylaxis: pharmacologic ordered Hospitalist MIPS Advance Care Plan I have confirmed that the patient's Advanced Care Plan is present, code status is documented, or surrogate decision maker is listed in patient medical record.: Yes Medication Reconciliation I have utilized all available resources to obtain, update and review the patients current medications (includes all prescriptions, OTC, herbals, cannabis, and nutritional supplements).: Yes
[2024-09-04] MEDS: ENOXAPARIN 40 MG/0.4 ML SYRINGE SUB-Q (09:59)
[2024-09-04] MEDS: POTASSIUM CHLORIDE 20 MEQ PACKET (FOR LIQUID) PO (09:59)
[2024-09-04] MEDS: ASPIRIN 81 MG CHEWABLE TABLET PO (10:00)
[2024-09-04] MEDS: METOPROLOL SUCCINATE EXT REL 100 MG TABCR PO (10:00)
[2024-09-04 14:03] LABS: Alveolar/Arterial O2 Gradient 43.5 mmHg; Device NASAL CANNULA; Fractional Inspired Oxygen 28 %; HCO3 ABG 26.8 mEq/l (22.0-26.0); Modified Allen's Test Pass; Oxygen Content ABG 18.5 %vol (16.0-22.0); Oxygen Saturation ABG 97.4 % (95.0-100.0); Oxyhemoglobin 96.4 % THb (90.0-100.0); PCO2 ABG 47.1 mmHg (35.0-45.0); PO2 ABG 100.6 mmHg (80.0-100.0); PO2 FiO2 Ratio Arterial Blood 3.59 %; Site Drawn RIGHT RADIAL; Total Hemoglobin 13.6 g/dL (12.0-18.0); pH ABG 7.373 (7.350-7.450)
[2024-09-04 19:13] LABS: Amphetamine Screen Urine Negative (Negative); Barbiturate Screen Urine Negative (Negative); Benzodiazepines Screen Urine Positive (Negative); Cannabinoid Screen Urine Positive (Negative); Cocaine Screen Urine Positive (Negative); Methadone Screen Urine Negative (Negative); Opiate Screen Urine Negative (Negative); Phencyclidine Screen Urine Negative (Negative)
[2024-09-04] MEDS: ROSUVASTATIN 10 MG TABLET PO (21:15)
[2024-09-05] VITALS (11 sets, daily range): BP systolic 124–146; BP diastolic 57–88; PULSE 58–78; RESP 16–18; TEMP 36.5–36.8; O2SAT 94–98
[2024-09-05 05:55] LABS: Basophils Absolute Auto 0.1 K/mm3 (0.0-0.1); Basophils Percent Auto 0.7 % (0.2-1.2); Eosinophils Absolute Auto 0.3 K/mm3 (0-0.3); Eosinophils Percent Auto 3.3 % (0-4.4); Hematocrit 33.3 % (42.0-52.0); Hemoglobin 10.2 g/dL (14.0-18.0); Immature Granulocyte Absolute 0.04 K/mm3 (0.00-0.031); Immature Granulocyte Percent A 0.4 % (0-0.5); Lymphocytes Absolute Auto 3.04 K/mm3 (0.9-3.2); Mean Corpuscular HGB Conc 30.6 g/dl (32-36); Mean Corpuscular Hemoglobin 27.6 pg (26-34); Mean Corpuscular Volume 90.2 fl (80-100); Mean Platelet Volume 8.8 fl (7.4-10.4); Monocytes Absolute Auto 0.9 K/mm3 (0.1-0.6); Monocytes Percent Auto 9.3 % (2.6-8.5); Neutrophils Absolute Auto 5.4 K/mm3 (1.3-6.7); Neutrophils Percent Auto 55.3 % (45.5-73.1); Platelet Count Result 364 k/mm3 (150-375); Red Blood Count 3.69 M/mm3 (4.6-6.20); Red Cell Distribution Width 15.1 % (11.5-14.5); White Blood Count 9.8 K/mm3 (4.5-10.0)
[2024-09-05 06:36] LABS: Alanine Aminotransferase 28 U/L (6-50); Albumin Level 3.4 g/dL (3.5-5.1); Alkaline Phosphatase 70 U/L (38-126); Anion Gap 7 mmol/L (4-12); Aspartate Amino Transferase 40 U/L (17-59); Bilirubin,Total 0.5 mg/dL (0.2-1.3); Blood Urea Nitrogen 23 mg/dL (9-20); Calcium 8.5 mg/dL (8.4-10.2); Carbon Dioxide 33 mmol/L (22-30); Chloride 98 mmol/L (98-107); Estimated CRCL calculation 48 ml/min; Estimated Glomerular Filt Rate > 60; Glucose 91 mg/dL (65-110); Potassium 3.4 mmol/L (3.4-5.0); Sodium 138 mmol/L (137-145)
--- NOTE | 2024-09-05 08:36 | PM.IMPN ---
Progress Note: A&P Assessment and Plan (1) Acute hypoxic respiratory failure: Code(s): J96.01 - Acute respiratory failure with hypoxia Status: Acute Assessment and Plan: - SpO2 per nursing note at 0300 dropped to 85% on room air while patient sleeping, placed on 2L NC - Oxygen supplementation: weaned back to baseline room air, maintain SPO2 >90 - Suspected cause: CHF exacerbation vs possible nocturnal hypoxia vs JAM vs diazepam - See CHF plan below - Patient is lethargic, intermittently falling asleep during assessment ABG unremarkable Head CT showing no acute intracranial hemorrhage or suspicious mass effect - Concern for possible AJM, patient denies previous sleep study. Notes that he snores nightly, often wakes unable to catch breath, and feels fatigued most mornings. No hypercapnia noted on ABG, not meeting CPAP requirements Apnea link performed on RA, showing 31 episodes of apnea. SpO2 < 85% for 113 min, < 88% for 247 min. Spoke with pulmonology Dr. Rosales. Will place patient on 3L NC overnight and repeat CXR in the am to reassess pulmonary congestion. If CXR improved will repeat apnea link on room air to assess nocturnal o2 requirement. Pulmonology consulted. (2) Acute exacerbation of CHF (congestive heart failure): Qualifiers: Heart failure type: unspecified Qualified Code(s): I50.9 - Heart failure, unspecified Code(s): I50.9 - Heart failure, unspecified Status: Acute Assessment and Plan: During prior admission evaluated by cardiology. Patient remained on lasix 40 mg daily and lopressor 50 mg p.o. b.i.d converted to Toprol 100 mg p.o. daily. Blood pressures at that time were not able tolerate any further additional guideline directed medical therapy - Symptoms: shortness of breath with exertion and lower extremity edema - Current medications: lasix 40 mg IV BID, metoprolol 100 mg daily - BNP: 03467 - EKG: sinus rhythm - Chest XR: Cardiomegaly and moderate pulmonary vascular congestion without focal infiltrate. - Echo 08/23 showed LVEF 40-45% with grade I diastolic dysfunction, pulmonary hypertension, mod mitral valve regurgitation, and mild tricuspid valve regurgitation. - 3+ pitting edema BLE on exam. +/- afib history on chart review and patient only on asa. Venous dopplers negative. - IS - Monitor vital signs, I&Os, BUN/creatinine, daily weights, neuro status and patient is a fall risk - Monitor serum electrolytes, Keep serum Potassium>4 and serum Magnesium>2 and CBC (3) Acute kidney injury: Code(s): N17.9 - Acute kidney failure, unspecified Status: Acute Assessment and Plan: BUN/Cr 27/1.31 with GFR 53 on admission. Previously WNL. Possible renal congestion secondary to fluid overload related to heart failure exacerbation Patient denies poor oral intake - BUN/Cr 23/1.07 - renal US no hydronephrosis or renal calculi, free fluid within the left paracolic gutter and within the pelvis, simple cyst within the right kidney - Avoid nephrotoxic medications - Renally dose medications - Monitor I/O Resolved. (4) Hypertension: Code(s): I10 - Essential (primary) hypertension Status: Chronic Assessment and Plan: chronic - lasix 40 mg IV BID for CHF exacerbation - metoprolol 100 mg daily - blood pressures reviewed and remain stable, continue to monitor (5) Substance abuse: Code(s): F19.10 - Other psychoactive substance abuse, uncomplicated Status: Chronic Assessment and Plan: Patient uses cocaine and marijuana, states last used 2 weeks ago at his sons birthday libertarian. UDS positive for benzos, cocaine, and cannabinoids. Encouraged cessation. Per RN patient was found to have diazepam in his hospital gown pocket and his night side table. Confiscated by the RN. Patient states that he has been using the diazepam since admission noting that he has taken about 4-5 tablets, 1 every 4-5 hours. He states that he has been taking diazepam for as long as he can remember and gets them off the street. Denies prior withdrawal. Discussed patient with Dr. Harding and will continue to monitor for withdrawals at this time. Placed on seizure precautions and neuro checks. Patient denies a need for a care coordination consult for substance abuse Time Spent With Patient Time with patient: Greater than 35 minutes Subjective Date/time seen: 09/05/24 08:36 Interval history: 74-year-old male with a significant past medical history hyperlipidemia, hypertension, Vitamin D3 deficiency, CHF, cocaine and marijuana abuse who presented to the hospital with complaint lower extremity swelling and shortness of breath with exertion. Patient is pleasant lying comfortably in bed. He continues to be drowsy throughout assessment, intermittently falling asleep. Per RN patient was found to have diazepam in his hospital gown pocket and his night side table. These were confiscated by the RN. Patient states that he has been using the diazepam since admission noting that he has taken about 4-5 tablets, 1 every 4-5 hours. He states that he has been taking diazepam for as long as he can remember and gets them off the street. He denies prior withdrawal and is unsure the longest amount of time he has ever gone without benzos. Discussed patient with Dr. Harding and will continue to monitor for withdrawals at this time. Patient placed on seizure precautions and neuro checks. Patient denies a need for a care coordination consult for substance abuse stating that he can quit whenever he wants. Patient has no complaints at this time denying chest pain, shortness a breath, palpitations, nausea/vomiting, and abdominal pain. Patient had ApneaLink performed overnight which showed prolonged hypoxia on room air and several episodes of apnea. Possible that the ApneaLink was worsened due to ongoing Valium use versus co current CHF exacerbation. Discussed patient with Dr. Rosales. Will place patient on 3L NC overnight and repeat CXR in the am to reassess pulmonary congestion. If CXR improved will repeat apnea link on room air to assess nocturnal o2 requirement. Pulmonology consulted. Review of Systems Review of Systems: All systems reviewed & are unremarkable except as noted in HPI and below Exam Narrative: AF HR 67 RR 18 SPo2 95 BP 124/82 General: male in no acute respiratory distress who is nontoxic appearing, lying semi recumbent in bed. Chest: Lungs are clear to the uppers with slight coarse to auscultation. No wheezes. CV: Heart was regular rate and rhythm. S1/S2. No murmurs, gallops, or rubs. Abd: Abdomen was soft. Nontender. Nondistended. Positive bowel sounds. Ext: No clubbing, cyanosis. 1+ pitting edema BLE. DP pulses bilaterally. Neuro: Patient is alert and oriented x4. Speech is clear. Psych: Drowsy, intermittently falling asleep during assessment. Objective Data Vital Signs Vital Signs: Vital Signs - 24 hr 09/04/24 10:00 09/04/24 12:00 09/04/24 14:21 Temperature 97.3 F L Pulse Rate 88 78 65 Respiratory Rate 18 Blood Pressure 98/59 L Pulse Oximetry 100 Oxygen Delivery Oxygen Flow Rate Fraction of Inspired Oxygen 09/04/24 15:00 09/04/24 16:28 09/04/24 20:00 Temperature Pulse Rate 70 68 Respiratory Rate Blood Pressure Pulse Oximetry 100 Oxygen Delivery Nasal Cannula Oxygen Flow Rate 2 Fraction of Inspired Oxygen 09/04/24 21:57 09/04/24 23:05 09/05/24 00:00 Temperature 98.6 F Pulse Rate 67 67 Respiratory Rate 16 Blood Pressure 108/59 L Pulse Oximetry 95 91 Oxygen Delivery Room Air Oxygen Flow Rate Fraction of Inspired Oxygen 21 09/05/24 04:00 09/05/24 06:00 Temperature 98.3 F Pulse Rate 78 69 Respiratory Rate 18 Blood Pressure 136/57 L Pulse Oximetry 98 Oxygen Delivery Oxygen Flow Rate Fraction of Inspired Oxygen Intake/Output Intake/Output: Intake & Output 09/02/24 09/03/24 09/04/24 09/05/24 23:59 23:59 23:59 23:59 Intake Total 1240 700 Output Total 2200 2400 Balance -960 -1700 Meds/Results Medications: Active Medications Generic Name Dose Route Start Last Admin Trade Name Freq PRN Reason Stop Dose Admin Acetaminophen 650 mg 09/04/24 07:58 Acetaminophen 325 Mg Tablet PO Q4H PRN Mild Pain (1-3) or Fever Albuterol 1 puff 09/04/24 08:00 Albuterol Sulfate (*Sp) Aerosol 1 Puff INHALATION QID PRN shortness of breath or wheezing Aspirin 81 mg 09/04/24 09:00 09/04/24 10:00 Aspirin 81 Mg Chewable Tablet PO 81 mg DAILY REJI Administration Enoxaparin Sodium 40 mg 09/04/24 09:00 09/04/24 09:59 Enoxaparin 40 Mg/0.4 Ml Syringe SUB-Q 40 mg DAILY REJI Administration Furosemide 40 mg 09/04/24 09:00 09/04/24 21:15 Furosemide Inj 40 Mg/4 Ml Vial IV PUSH 40 mg Q12HR REJI Administration Metoprolol Succinate 100 mg 09/04/24 09:00 09/04/24 10:00 Metoprolol Succinate Ext Rel 100 Mg Tabcr PO 100 mg QAM REJI Administration Potassium Chloride 20 meq 09/04/24 09:00 09/04/24 09:59 Potassium Chloride 20 Meq Packet (For Liquid) PO 20 meq DAILY REJI Administration Rosuvastatin Calcium 10 mg 09/04/24 21:00 09/04/24 21:15 Rosuvastatin 10 Mg Tablet PO 10 mg HS REJI Administration Radiology Results: ITS Impressions Chest X-Ray 09/04/24 12:05 IMPRESSION: Cardiomegaly and moderate pulmonary vascular congestion without focal infiltrate. Renal Ultrasound 09/04/24 12:39 IMPRESSION: No hydronephrosis or renal calculi. Free fluid within the left paracolic gutter and within the pelvis, consistent with recent CT examination. Simple cyst within the right kidney for which no further follow-up is needed. Head CT 09/04/24 13:32 Impression: No acute intracranial hemorrhage or suspicious mass effect. Inflammatory sinus disease Venous Doppler Study 09/04/24 19:44 IMPRESSION: No evidence of deep venous thrombosis of the lower extremities Labs Labs: Laboratory Results - last 24 hr 09/04/24 09/04/24 09/05/24 13:42 18:49 05:32 WBC 9.8 RBC 3.69 L Hgb 10.2 L Hct 33.3 L MCV 90.2 MCH 27.6 MCHC 30.6 L RDW 15.1 H Plt Count 364 MPV 8.8 Immature Gran % (Auto) 0.4 Neut % (Auto) 55.3 Lymph % (Auto) 31.0 [place] % (Auto) 9.3 H Eos % (Auto) 3.3 Baso % (Auto) 0.7 Lymph # (Auto) 3.04 [place] # (Auto) 0.9 H Eos # (Auto) 0.3 Baso # (Auto) 0.1 Abs Immat Gran (auto) 0.04 H Absolute Neuts (auto) 5.4 Absolute Nucleated RBC 0.000 Nucleated RBC % 0.0 Puncture Site Right radial ABG pH 7.373 ABG pCO2 47.1 H ABG pO2 100.6 H ABG PO2/FiO2 Ratio 3.59 ABG HCO3 26.8 H ABG O2 Saturation 97.4 ABG O2 Content 18.5 ABG Base Excess 1.0 A-a Gradient 43.5 Oxyhemoglobin 96.4 Total Hemoglobin 13.6 O2 Delivery Device Nasal cannula O2 Liters/Min 2.0 FiO2 28 Sodium 138 Potassium 3.4 Chloride 98 Carbon Dioxide 33 H Anion Gap 7 BUN 23 H Creatinine 1.07 Estim Creat Clear Calc 48 Estimated GFR > 60 Glucose 91 Calcium 8.5 Total Bilirubin 0.5 AST 40 ALT 28 Alkaline Phosphatase 70 Total Protein 7.0 Albumin 3.4 L Urine Opiates Screen Negative Urine Methadone Screen Negative Ur Barbiturates Screen Negative Ur Phencyclidine Scrn Negative Ur Amphetamine Screen Negative U Benzodiazepines Scrn Positive A Urine Cocaine Screen Positive A U Cannabinoids Screen Positive A Quality VTE Prophylaxis VTE prophylaxis: pharmacologic ordered
[2024-09-05] MEDS: FUROSEMIDE INJ 40 MG/4 ML VIAL IV PUSH ×2 (09:39→20:22)
[2024-09-05] MEDS: ASPIRIN 81 MG CHEWABLE TABLET PO (09:39)
[2024-09-05] MEDS: POTASSIUM CHLORIDE 20 MEQ PACKET (FOR LIQUID) PO (09:39)
[2024-09-05] MEDS: METOPROLOL SUCCINATE EXT REL 100 MG TABCR PO (09:39)
[2024-09-05] MEDS: ENOXAPARIN 40 MG/0.4 ML SYRINGE SUB-Q (09:40)
--- NOTE | 2024-09-05 15:51 | PC.NURSE ---
At approximately 0930 this morning, a physical therapist handed this nurse four, small, round tablets. She stated she found them in the bed linens in room 348 when assisting the patient to ambulate for therapy. When questioned by this nurse about the medication, patient stated :'Oh, that is my diazepam, they must have fallen out of my pocket. I take them to help me sleep. Patient does not have a prescription for diazepam. He was advised by this nurse that he can not self administer medication while at this hospital. He verbalized understanding and agreed to have his personal belongings placed in a secured closet space. A small silver vial containing more orange round tablets were removed from the patients bedside. Tablets were identified as diazepam 5 mg with the writing MYLAN and the numbers 345. Hospitalist notified. Vial of tablets given to security for safe keeping.
[2024-09-05] MEDS: ROSUVASTATIN 10 MG TABLET PO (20:22)
[2024-09-06] VITALS (11 sets, daily range): BP systolic 122–127; BP diastolic 61–106; PULSE 59–82; RESP 16–18; TEMP 35.6–36.3; O2SAT 91–94
[2024-09-06 05:50] LABS: Basophils Absolute Auto 0.1 K/mm3 (0.0-0.1); Basophils Percent Auto 0.7 % (0.2-1.2); Eosinophils Absolute Auto 0.3 K/mm3 (0-0.3); Eosinophils Percent Auto 2.6 % (0-4.4); Hemoglobin 11.5 g/dL (14.0-18.0); Immature Granulocyte Absolute 0.05 K/mm3 (0.00-0.031); Immature Granulocyte Percent A 0.4 % (0-0.5); Lymphocytes Absolute Auto 3.43 K/mm3 (0.9-3.2); Mean Corpuscular HGB Conc 31.1 g/dl (32-36); Mean Corpuscular Hemoglobin 27.6 pg (26-34); Mean Corpuscular Volume 88.9 fl (80-100); Mean Platelet Volume 8.7 fl (7.4-10.4); Monocytes Absolute Auto 1.1 K/mm3 (0.1-0.6); Monocytes Percent Auto 9.3 % (2.6-8.5); Neutrophils Absolute Auto 6.9 K/mm3 (1.3-6.7); Platelet Count Result 376 k/mm3 (150-375); Red Blood Count 4.16 M/mm3 (4.6-6.20); Red Cell Distribution Width 15.1 % (11.5-14.5); White Blood Count 11.8 K/mm3 (4.5-10.0)
[2024-09-06 06:03] LABS: Alanine Aminotransferase 25 U/L (6-50); Albumin Level 3.6 g/dL (3.5-5.1); Alkaline Phosphatase 73 U/L (38-126); Anion Gap 6 mmol/L (4-12); Aspartate Amino Transferase 36 U/L (17-59); Bilirubin,Total 0.8 mg/dL (0.2-1.3); Blood Urea Nitrogen 21 mg/dL (9-20); Calcium 8.5 mg/dL (8.4-10.2); Carbon Dioxide 39 mmol/L (22-30); Chloride 93 mmol/L (98-107); Estimated CRCL calculation 56 ml/min; Estimated Glomerular Filt Rate > 60; Glucose 90 mg/dL (65-110); Potassium 3.1 mmol/L (3.4-5.0); Sodium 138 mmol/L (137-145)
--- NOTE | 2024-09-06 06:43 | PM.IMPN ---
Progress Note: A&P Assessment and Plan (1) Acute hypoxic respiratory failure: Code(s): J96.01 - Acute respiratory failure with hypoxia Status: Acute Assessment and Plan: - SpO2 per nursing note at 0300 dropped to 85% on room air while patient sleeping, placed on 2L NC - Oxygen supplementation: weaned back to baseline room air, maintain SPO2 >90 - Suspected cause: CHF exacerbation vs possible nocturnal hypoxia vs JAM vs diazepam - See CHF plan below - Patient is lethargic, intermittently falling asleep during assessment ABG unremarkable Head CT showing no acute intracranial hemorrhage or suspicious mass effect - Concern for possible JAM, patient denies previous sleep study. Notes that he snores nightly, often wakes unable to catch breath, and feels fatigued most mornings. No hypercapnia noted on ABG, not meeting CPAP requirements Apnea link performed on RA, showing 31 episodes of apnea. SpO2 < 85% for 113 min, < 88% for 247 min. Spoke with pulmonology Dr. Rosales. Will place patient on 3L NC overnight and repeat CXR in the am to reassess pulmonary congestion. Chest XR showing subsegmental bibasilar atelectasis/consolidation and possible small bilateral pleural effusions. - Pulmonology consulted Optimize treatment for CHF and start the patient on supplemental oxygen at night at approximately 3 liters/minute. Prior to discharge home, repeat ApneaLink. May need supplemental oxygen while on treatment for congestive heart failure. (2) Acute exacerbation of CHF (congestive heart failure): Qualifiers: Heart failure type: combined systolic and diastolic Qualified Code(s): I50.43 - Acute on chronic combined systolic (congestive) and diastolic (congestive) heart failure Code(s): I50.9 - Heart failure, unspecified Status: Acute Assessment and Plan: During prior admission evaluated by cardiology. Patient remained on lasix 40 mg daily and lopressor 50 mg p.o. b.i.d converted to Toprol 100 mg p.o. daily. Blood pressures at that time were not able tolerate any further additional guideline directed medical therapy - Symptoms: shortness of breath with exertion and lower extremity edema - Current medications: lasix 40 mg IV BID, metoprolol 100 mg daily - BNP: 87595 - EKG: sinus rhythm - Chest XR: Cardiomegaly and moderate pulmonary vascular congestion without focal infiltrate. - Echo 08/23 showed LVEF 40-45% with grade I diastolic dysfunction, pulmonary hypertension, mod mitral valve regurgitation, and mild tricuspid valve regurgitation. - 3+ pitting edema BLE on admission exam. +/- afib history on chart review and patient only on asa. Venous dopplers negative. - IS - Monitor vital signs, I&Os, BUN/creatinine, daily weights, neuro status and patient is a fall risk - Monitor serum electrolytes, Keep serum Potassium>4 and serum Magnesium>2 and CBC Repeat Chest XR showing subsegmental bibasilar atelectasis/consolidation. Possible small bilateral pleural effusions. Continue current treatment plan with IV lasix for diuresis (3) Acute kidney injury: Code(s): N17.9 - Acute kidney failure, unspecified Status: Acute Assessment and Plan: BUN/Cr 27/1.31 with GFR 53 on admission. Previously WNL. Possible renal congestion secondary to fluid overload related to heart failure exacerbation Patient denies poor oral intake - BUN/Cr 21/0.91 - renal US no hydronephrosis or renal calculi, free fluid within the left paracolic gutter and within the pelvis, simple cyst within the right kidney - Avoid nephrotoxic medications - Renally dose medications - Monitor I/O Resolved. (4) Hypertension: Code(s): I10 - Essential (primary) hypertension Status: Chronic Assessment and Plan: chronic - lasix 40 mg IV BID for CHF exacerbation - metoprolol 100 mg daily - blood pressures reviewed and remain stable, continue to monitor (5) Substance abuse: Code(s): F19.10 - Other psychoactive substance abuse, uncomplicated Status: Chronic Assessment and Plan: Patient uses cocaine and marijuana, states last used 2 weeks ago at his sons birthday libertarian. UDS positive for benzos, cocaine, and cannabinoids. Encouraged cessation. Per RN patient was found to have diazepam in his hospital gown pocket and his night side table. Confiscated by the RN. Patient states that he has been using the diazepam since admission noting that he has taken about 4-5 tablets, 1 every 4-5 hours. He states that he has been taking diazepam for as long as he can remember and gets them off the street. Denies prior withdrawal. Discussed patient with Dr. Harding and will continue to monitor for withdrawals at this time. Placed on seizure precautions and neuro checks. Patient denies a need for a care coordination consult for substance abuse Patient is much more awake and alert at time of assessment. Continue current treatment plan. Time Spent With Patient Time with patient: 25 - 35 minutes Subjective Date/time seen: 09/06/24 06:43 Interval history: 74-year-old male with a significant past medical history hyperlipidemia, hypertension, Vitamin D3 deficiency, CHF, cocaine and marijuana abuse who presented to the hospital with complaint lower extremity swelling and shortness of breath with exertion. Patient is pleasant sitting up comfortably in his bed. He is much more alert throughout this assessment able to hold a normal conversation without falling asleep. He has no complaints at this time denying chest pain, shortness a breath, palpitations, nausea/vomiting abdominal pain. Patient evaluated by pulmonology and will remain on nocturnal oxygen while we continue treatment for CHF exacerbation. Patient will require a ApneaLink performed prior to discharge to further assess nocturnal O2 needs. Review of Systems Review of Systems: All systems reviewed & are unremarkable except as noted in HPI and below Exam Narrative: AF HR 70 RR 16 Spo2 94 BP 127/95 General: male in no acute respiratory distress who is nontoxic appearing, sitting up in bed. Chest: Lungs are clear to the uppers with slight crackles to auscultation in the bases. No wheezes. CV: Heart was regular rate and rhythm. S1/S2. No murmurs, gallops, or rubs. Abd: Abdomen was soft. Nontender. Nondistended. Positive bowel sounds. Ext: No clubbing, cyanosis. Trivial edema BLE. DP pulses bilaterally. Neuro: Patient is alert and oriented x4. Speech is clear. Psych: Much more alert. Objective Data Vital Signs Vital Signs: Vital Signs - 24 hr 09/05/24 08:00 09/05/24 09:26 09/05/24 09:39 Temperature Pulse Rate 66 68 Respiratory Rate Blood Pressure Pulse Oximetry Oxygen Delivery Nasal Cannula Oxygen Flow Rate 2 09/05/24 09:40 09/05/24 11:33 09/05/24 12:00 Temperature Pulse Rate 58 L Respiratory Rate Blood Pressure Pulse Oximetry 94 Oxygen Delivery Room Air Nasal Cannula Oxygen Flow Rate 2 09/05/24 14:52 09/05/24 16:00 09/05/24 20:00 Temperature 98.2 F Pulse Rate 67 70 74 Respiratory Rate 18 Blood Pressure 124/82 Pulse Oximetry 95 Oxygen Delivery Oxygen Flow Rate 09/05/24 22:51 09/06/24 00:00 09/06/24 04:00 Temperature 97.7 F Pulse Rate 69 68 72 Respiratory Rate 16 Blood Pressure 146/88 H Pulse Oximetry 94 Oxygen Delivery Oxygen Flow Rate Intake/Output Intake/Output: Intake & Output 09/03/24 09/04/24 09/05/24 09/06/24 23:59 23:59 23:59 23:59 Intake Total 1240 2520 Output Total 2200 5700 1500 Balance -960 -3180 -1500 Meds/Results Medications: Active Medications Generic Name Dose Route Start Last Admin Trade Name Freq PRN Reason Stop Dose Admin Acetaminophen 650 mg 09/04/24 07:58 Acetaminophen 325 Mg Tablet PO Q4H PRN Mild Pain (1-3) or Fever Albuterol 1 puff 09/04/24 08:00 Albuterol Sulfate (*Sp) Aerosol 1 Puff INHALATION QID PRN shortness of breath or wheezing Aspirin 81 mg 09/04/24 09:00 09/05/24 09:39 Aspirin 81 Mg Chewable Tablet PO 81 mg DAILY REJI Administration Enoxaparin Sodium 40 mg 09/04/24 09:00 09/05/24 09:40 Enoxaparin 40 Mg/0.4 Ml Syringe SUB-Q 40 mg DAILY REJI Administration Furosemide 40 mg 09/04/24 09:00 09/05/24 20:22 Furosemide Inj 40 Mg/4 Ml Vial IV PUSH 40 mg Q12HR REJI Administration Metoprolol Succinate 100 mg 09/04/24 09:00 09/05/24 09:39 Metoprolol Succinate Ext Rel 100 Mg Tabcr PO 100 mg QAM REJI Administration Potassium Chloride 20 meq 09/04/24 09:00 09/05/24 09:39 Potassium Chloride 20 Meq Packet (For Liquid) PO 20 meq DAILY REJI Administration Rosuvastatin Calcium 10 mg 09/04/24 21:00 09/05/24 20:22 Rosuvastatin 10 Mg Tablet PO 10 mg HS REJI Administration Radiology Results: ITS Impressions Renal Ultrasound 09/04/24 12:39 IMPRESSION: No hydronephrosis or renal calculi. Free fluid within the left paracolic gutter and within the pelvis, consistent with recent CT examination. Simple cyst within the right kidney for which no further follow-up is needed. Head CT 09/04/24 13:32 Impression: No acute intracranial hemorrhage or suspicious mass effect. Inflammatory sinus disease Venous Doppler Study 09/04/24 19:44 IMPRESSION: No evidence of deep venous thrombosis of the lower extremities Chest X-Ray 09/05/24 17:08 IMPRESSION: Subsegmental bibasilar atelectasis/consolidation. Possible small bilateral pleural effusions. Labs Labs: Laboratory Results - last 24 hr 09/06/24 05:34 WBC 11.8 H RBC 4.16 L Hgb 11.5 L Hct 37.0 L MCV 88.9 MCH 27.6 MCHC 31.1 L RDW 15.1 H Plt Count 376 H MPV 8.7 Immature Gran % (Auto) 0.4 Neut % (Auto) 58.0 Lymph % (Auto) 29.0 [place] % (Auto) 9.3 H Eos % (Auto) 2.6 Baso % (Auto) 0.7 Lymph # (Auto) 3.43 H [place] # (Auto) 1.1 H Eos # (Auto) 0.3 Baso # (Auto) 0.1 Abs Immat Gran (auto) 0.05 H Absolute Neuts (auto) 6.9 H Absolute Nucleated RBC 0.000 Nucleated RBC % 0.0 Sodium 138 Potassium 3.1 L Chloride 93 L Carbon Dioxide 39 H Anion Gap 6 BUN 21 H Creatinine 0.91 Estim Creat Clear Calc 56 Estimated GFR > 60 Glucose 90 Calcium 8.5 Total Bilirubin 0.8 AST 36 ALT 25 Alkaline Phosphatase 73 Total Protein 7.0 Albumin 3.6 Quality VTE Prophylaxis VTE prophylaxis: pharmacologic ordered
[2024-09-06] MEDS: ENOXAPARIN 40 MG/0.4 ML SYRINGE SUB-Q (08:25)
[2024-09-06] MEDS: ASPIRIN 81 MG CHEWABLE TABLET PO (08:25)
[2024-09-06] MEDS: POTASSIUM CHLORIDE 20 MEQ PACKET (FOR LIQUID) PO (08:25)
[2024-09-06] MEDS: METOPROLOL SUCCINATE EXT REL 100 MG TABCR PO (08:25)
[2024-09-06] MEDS: FUROSEMIDE INJ 40 MG/4 ML VIAL IV PUSH ×2 (08:26→20:41)
--- NOTE | 2024-09-06 10:09 | P.CDI_ITS ---
CDI Query Clarification Request Please specify type of heart failure if known. * Systolic * Diastolic * Combined Systolic and Diastolic * Unknown The medical chart reflects the following: (2) Acute exacerbation of CHF (congestive heart failure): Qualifiers: Heart failure type: unspecified Qualified Code(s): I50.9 - Heart failure, unspecified Code(s): I50.9 - Heart failure, unspecified Status: Acute Assessment and Plan: During prior admission evaluated by cardiology. Patient remained on lasix 40 mg daily and lopressor 50 mg p.o. b.i.d converted to Toprol 100 mg p.o. daily. Blood pressures at that time were not able tolerate any further additional guideline directed medical therapy - Symptoms: shortness of breath with exertion and lower extremity edema - Current medications: lasix 40 mg IV BID, metoprolol 100 mg daily - BNP: 34736 - EKG: sinus rhythm - Chest XR: Cardiomegaly and moderate pulmonary vascular congestion without focal infiltrate. - Echo 08/23 showed LVEF 40-45% with grade I diastolic dysfunction, pulmonary hypertension, mod mitral valve regurgitation, and mild tricuspid valve regurgitation. - 3+ pitting edema BLE on exam. +/- afib history on chart review and patient only on asa. Venous dopplers negative. - IS - Monitor vital signs, I&Os, BUN/creatinine, daily weights, neuro status and patient is a fall risk - Monitor serum electrolytes, Keep serum Potassium>4 and serum Magnesium>2 and CBC <Bonnie Chan RN - Last Filed: 09/06/24 10:12> Clarified Diagnosis Clarified Diagnosis: combined <Desirae Tyson PA-C - Last Filed: 09/06/24 15:03>
--- NOTE | 2024-09-06 11:20 | P.CONPL_ITS ---
Assessment and Plan Assessment and plan (1) Acute hypoxic respiratory failure: Code(s): J96.01 - Acute respiratory failure with hypoxia Status: Acute (2) Substance abuse: Code(s): F19.10 - Other psychoactive substance abuse, uncomplicated Status: Chronic (3) Acute exacerbation of CHF (congestive heart failure): Qualifiers: Heart failure type: unspecified Qualified Code(s): I50.9 - Heart failure, unspecified Code(s): I50.9 - Heart failure, unspecified Status: Acute Assessment and Plan: This 74-year-old man, with no prior history of lung disease but a history of substance abuse, presented with shortness of breath and lower extremity edema. Notably, two weeks prior to this hospitalization, he was diagnosed with congestive heart failure with low ejection fraction, while his chest imaging studies, including a chest CT, showed pulmonary congestion and moderate pleural effusions related to congestive heart failure. The patient reportedly did not take any medications for congestive heart failure when discharge home post abdominal surgery. On physical exam, he is breathing ambient air and has decreased breath sounds at the bases along with a few crackles, most likely related to pleural effusions, which on the admission x-ray were significantly less compared to those of two weeks prior to this hospitalization. A recent ApneaLink study showed significant oxyhemoglobin desaturation on room air, which is most likely related to congestive heart failure with bilateral pleural effusions and residual lung congestion. The patient may have sleep- disordered breathing, but he is not overly obese, and there is no evidence of obesity hypoventilation, at least on clinical grounds and in the absence of significant hypercapnia on arterial blood gases. Plan: Optimize treatment for congestive heart failure and start the patient on supplemental oxygen at night at approximately 3 liters/minute. Just prior to discharge home, he will have a repeat ApneaLink study as he may need supplemental oxygen while on treatment for congestive heart failure. I will continue to follow the patient along with you. Possible sleep disordered breathing will require further testing as an outpatient. (4) Atrial fibrillation: Code(s): I48.91 - Unspecified atrial fibrillation Status: Acute History of Present Illness History of Present Illness Consult date: 09/06/24 Chief complaint: Acute exacerbation of CHF Narrative: This is a consultation for persistent nocturnal hypoxemia. This 74-year-old man, with a history of hypertension, congestive heart failure, and cocaine and marijuana abuse, presented with lower extremity edema and shortness of breath during activities. The patient is a poor historian, and this report is compiled from his medical chart and discussions with the hospitalist. Earlier this month, the patient was admitted for congestive heart failure, possible atrial fibrillation with rapid ventricular response, and a small bowel obstruction related to an umbilical hernia. He underwent surgery for the umbilical hernia approximately two weeks ago. He was evaluated by Cardiology Services and received treatment for both congestive heart failure and atrial fibrillation. After discharge, the patient did not take any medication. He presented again with shortness of breath and lower extremity edema. The patient is again receiving treatment for congestive heart failure. A chest X-ray on admission showed cardiomegaly and pulmonary congestion, with probable small bilateral pleural effusions. Notably, a chest CT done two weeks prior to the admission showed bilateral pleural effusions, moderately large, in a symmetrical fashion, most likely related to congestive heart failure. The patient denied having other respiratory symptoms such as fever, chills, hemoptysis, or chest pain. Upon questioning, he stated that he is feeling better. This consultation was prompted by significant oxyhemoglobin desaturation noted on ApneaLink. The patient has never had a prior history of lung disease. An echocardiogram two weeks ago showed systolic heart failure with an ejection fraction in the range of 40-45%. Review of Systems 2 Review of Systems: All systems reviewed & are unremarkable except as noted in HPI and below (HPI and below) [facility] Past Medical History Medical History Hypertension Hyperlipidemia Vitamin D deficiency Substance abuse Atrial fibrillation Congestive heart failure Surgical History Surgical History H/O hemorrhoidectomy History of appendectomy History of carpal tunnel release Family History Family History Mother Parkinson disease Father Alcohol abuse Social History Social History (Updated 09/04/24 @ 13:19 by Desirae Tyson PA-C) Social History: Lives with grand daughter (13 year old) 1 dog Smoking status: Never smoker Alcohol intake: never Substance use: current Substance use type: marijuana and crack/cocaine Other substance usage details: once in while, last used 2 weeks ago Do You Feel Safe in your Home?: Yes Lack of Transportation: No Lack of Food: Never True Current Housing: I Have Housing Concerned About Future Housing: No Difficulty Paying Gas/Electric Bills: No Difficulty Paying for Meds: No Currently Unemployed: No Education: High School Diploma/GED Difficulty w/ Childcare or Family Care: No Spiritual care concerns: No Meds Home Medications and Allergies Home Medications ?Medication ?Instructions ?Recorded ?Confirmed ?Type aspirin 81 mg chewable tablet 81 mg PO DAILY 08/23/24 09/04/24 History cholecalciferol (vitamin D3) 50 2,000 unit PO DAILY 08/23/24 09/04/24 History mcg (2,000 unit) capsule albuterol sulfate 90 mcg/actuation 1 inh inhalation QID PRN shortness 08/28/24 09/04/24 Rx aerosol inhaler (Ventolin HFA) of breath or wheezing #8.5 grams furosemide 40 mg tablet 40 mg PO DAILY #30 tabs 08/28/24 09/04/24 Rx metoprolol succinate 100 mg 100 mg PO QAM #60 tabs 08/28/24 09/04/24 Rx tablet,extended release 24 hr (Toprol XL) potassium chloride 20 mEq oral 20 meq PO DAILY #30 ea 08/28/24 09/04/24 Rx packet rosuvastatin 20 mg tablet (Crestor) 10 mg (1/2 x 20 mg) PO HS #30 tabs 08/28/24 09/04/24 Rx Allergies Allergy/AdvReac Type Severity Reaction Status Date / Time No Known Drug Allergies Allergy Other Verified 08/24/24 11:06 Vital Signs Vital Signs - 24 hr 09/05/24 11:33 09/05/24 12:00 09/05/24 14:52 Temperature 36.8 C Pulse Rate 58 L 67 Respiratory Rate 18 Blood Pressure 124/82 Pulse Oximetry 95 Oxygen Delivery Nasal Cannula Oxygen Flow Rate 2 09/05/24 16:00 09/05/24 20:00 09/05/24 22:51 Temperature 36.5 C Pulse Rate 70 74 69 Respiratory Rate 16 Blood Pressure 146/88 H Pulse Oximetry 94 Oxygen Delivery Oxygen Flow Rate 09/06/24 00:00 09/06/24 04:00 09/06/24 06:00 Temperature 36.1 C L Pulse Rate 68 72 72 Respiratory Rate 16 Blood Pressure 127/95 H Pulse Oximetry 94 Oxygen Delivery Oxygen Flow Rate 09/06/24 08:05 09/06/24 08:25 Temperature Pulse Rate 71 82 Respiratory Rate Blood Pressure Pulse Oximetry Oxygen Delivery Oxygen Flow Rate Exam 2 Narrative: GENERAL APPEARANCE: Well developed, well nourished, alert and cooperative, and appears to be in no acute distress SKIN: Inspection of the skin reveals no rashes, ulcerations or petechiae. HEENT: Sclerae anicteric and conjunctivae pink and moist. Extraocular movements were intact and pupils were equal, round, and reactive to light. The oral mucosa, hard and soft palate, tongue and posterior pharynx were normal. NECK: Supple. JVD present There was no thyroid enlargement, and no tenderness, or masses were felt. CHEST: Decreased breath sounds with rare crackles at bases posteriorly. CARDIAC: There was a regular rate and rhythm without any murmurs, gallops, rubs. ABDOMEN: Soft and nontender with normal bowel sounds. There was no organomegaly. LYMPH NODES: No lymphadenopathy was appreciated in the neck. EXTREMITIES: No cyanosis, clubbing or edema. NEUROLOGIC: Alert and oriented x 3. Normal affect. Results Laboratory Findings 09/06/24 05:34 09/06/24 05:34 ABG, PT/INR, D-dimer: ABG ABG pH 7.373 (7.350-7.450) 09/04/24 13:42 ABG pCO2 47.1 mmHg (35.0-45.0) H 09/04/24 13:42 ABG pO2 100.6 mmHg (80.0-100.0) H 09/04/24 13:42 ABG O2 Saturation 97.4 % (95.0-100.0) 09/04/24 13:42 PT/INR, D-dimer PT 13.9 Seconds (11.1-14.7) 09/04/24 01:29 INR 1.0 09/04/24 01:29 Abnormal lab findings: Abnormal Labs 09/04/24 09/04/24 09/04/24 01:29 01:36 13:42 WBC 12.1 H RBC 3.86 L Hgb 10.8 L Hct 34.9 L MCHC 30.9 L RDW 15.0 H Plt Count 401 H [place] % (Auto) 9.7 H Lymph # (Auto) [place] # (Auto) 1.2 H Eos # (Auto) 0.4 H Abs Immat Gran (auto) 0.04 H Absolute Neuts (auto) 7.6 H ABG pCO2 47.1 H ABG pO2 100.6 H ABG HCO3 26.8 H Potassium Chloride Carbon Dioxide BUN 27 H D Creatinine 1.31 H Estimated GFR 53 L NT-Pro-B Natriuret Pep 78148 H Albumin Urine Protein 1+ H Urine Glucose (UA) 2+ H U Benzodiazepines Scrn Urine Cocaine Screen U Cannabinoids Screen 09/04/24 09/05/24 09/06/24 18:49 05:32 05:34 WBC 11.8 H RBC 3.69 L 4.16 L Hgb 10.2 L 11.5 L Hct 33.3 L 37.0 L MCHC 30.6 L 31.1 L RDW 15.1 H 15.1 H Plt Count 376 H [place] % (Auto) 9.3 H 9.3 H Lymph # (Auto) 3.43 H [place] # (Auto) 0.9 H 1.1 H Eos # (Auto) Abs Immat Gran (auto) 0.04 H 0.05 H Absolute Neuts (auto) 6.9 H ABG pCO2 ABG pO2 ABG HCO3 Potassium 3.1 L Chloride 93 L Carbon Dioxide 33 H 39 H BUN 23 H 21 H Creatinine Estimated GFR NT-Pro-B Natriuret Pep Albumin 3.4 L Urine Protein Urine Glucose (UA) U Benzodiazepines Scrn Positive A Urine Cocaine Screen Positive A U Cannabinoids Screen Positive A
--- NOTE | 2024-09-06 18:54 | PC.NURSE ---
On 09/06/24, the student, Gayla Mulligan, provided care and completed [facility] documentation on this patient. I have reviewed the student's documentation and agree with the findings.
[2024-09-06] MEDS: ROSUVASTATIN 10 MG TABLET PO (20:41)
[2024-09-07] VITALS (11 sets, daily range): BP systolic 106–119; BP diastolic 52–74; PULSE 69–98; RESP 18–20; TEMP 36.4–36.9; O2SAT 92–99
[2024-09-07 05:28] LABS: Basophils Absolute Auto 0.1 K/mm3 (0.0-0.1); Eosinophils Absolute Auto 0.3 K/mm3 (0-0.3); Eosinophils Percent Auto 2.3 % (0-4.4); Hemoglobin 13.6 g/dL (14.0-18.0); Immature Granulocyte Absolute 0.04 K/mm3 (0.00-0.031); Immature Granulocyte Percent A 0.4 % (0-0.5); Lymphocytes Absolute Auto 3.48 K/mm3 (0.9-3.2); Lymphocytes Percent Auto 31.8 % (18.3-44.2); Mean Corpuscular HGB Conc 31.6 g/dl (32-36); Mean Corpuscular Volume 88.7 fl (80-100); Mean Platelet Volume 8.7 fl (7.4-10.4); Monocytes Percent Auto 9.3 % (2.6-8.5); Neutrophils Absolute Auto 6.1 K/mm3 (1.3-6.7); Neutrophils Percent Auto 55.2 % (45.5-73.1); Platelet Count Result 391 k/mm3 (150-375); Red Blood Count 4.85 M/mm3 (4.6-6.20); Red Cell Distribution Width 15.3 % (11.5-14.5)
[2024-09-07 05:40] LABS: Alanine Aminotransferase 24 U/L (6-50); Albumin Level 3.9 g/dL (3.5-5.1); Alkaline Phosphatase 75 U/L (38-126); Aspartate Amino Transferase 39 U/L (17-59); Bilirubin,Total 0.9 mg/dL (0.2-1.3); Blood Urea Nitrogen 18 mg/dL (9-20); Calcium 8.6 mg/dL (8.4-10.2); Carbon Dioxide > 40 mmol/L (22-30); Chloride 93 mmol/L (98-107); Estimated CRCL calculation 59 ml/min; Estimated Glomerular Filt Rate > 60; Glucose 97 mg/dL (65-110); Potassium 3.2 mmol/L (3.4-5.0); Sodium 140 mmol/L (137-145)
[2024-09-07] MEDS: ENOXAPARIN 40 MG/0.4 ML SYRINGE SUB-Q (08:56)
[2024-09-07] MEDS: METOPROLOL SUCCINATE EXT REL 100 MG TABCR PO (08:56)
[2024-09-07] MEDS: POTASSIUM CHLORIDE 20 MEQ PACKET (FOR LIQUID) PO (08:57)
[2024-09-07] MEDS: ASPIRIN 81 MG CHEWABLE TABLET PO (08:57)
[2024-09-07] MEDS: FUROSEMIDE INJ 40 MG/4 ML VIAL IV PUSH ×2 (08:57→20:20)
--- NOTE | 2024-09-07 09:20 | PM.PNPUL ---
Progress Note: A&P Assessment and Plan (1) Acute hypoxic respiratory failure: Code(s): J96.01 - Acute respiratory failure with hypoxia Status: Acute Assessment and Plan: This 74-year-old man, with no prior history of lung disease but a history of substance abuse, presented with shortness of breath and lower extremity edema. Notably, two weeks prior to this hospitalization, he was diagnosed with congestive heart failure with low ejection fraction, while his chest imaging studies, including a chest CT, showed pulmonary congestion and moderate pleural effusions related to congestive heart failure. The patient reportedly did not take any medications for congestive heart failure when discharged home post abdominal surgery. On physical exam, he is breathing ambient air and has decreased breath sounds at the bases along with a few crackles, most likely related to pleural effusions, which on the admission x-ray were significantly less compared to those of two weeks prior to this hospitalization. A recent ApneaLink study showed significant oxyhemoglobin desaturation on room air, which is most likely related to congestive heart failure with bilateral pleural effusions and residual lung congestion. The patient may have sleep-disordered breathing, but he is not overly obese, and there is no evidence of obesity hypoventilation, at least on clinical grounds and in the absence of significant hypercapnia on arterial blood gases. Over the past 24 hours, the patient's respiratory status has remained stable. He used supplemental oxygen last night to enhance his oxyhemoglobin saturation while continuing treatment for congestive heart failure. He has experienced effective diuresis over the past 48 hours. Plan: We will conduct another apnea link study tonight on room air, with the hope that treatment for his congestive heart failure has improved his oxyhemoglobin saturation. If he remains hypoxemic on room air, we will initiate supplemental oxygen at night and potentially during the day, depending on the results of the home oxygen evaluation test. Two-view x-ray was ordered for tomorrow morning. Anticipate discharge home in a day or so. (2) Substance abuse: Code(s): F19.10 - Other psychoactive substance abuse, uncomplicated Status: Chronic (3) Acute exacerbation of CHF (congestive heart failure): Qualifiers: Heart failure type: combined systolic and diastolic Qualified Code(s): I50.43 - Acute on chronic combined systolic (congestive) and diastolic (congestive) heart failure Code(s): I50.9 - Heart failure, unspecified Status: Acute (4) Congestive heart failure: Code(s): I50.9 - Heart failure, unspecified Status: Acute (5) Atrial fibrillation with RVR: Code(s): I48.91 - Unspecified atrial fibrillation Status: Acute Subjective Date/time seen: 09/07/24 09:20 Interval history: Patient has no new respiratory symptoms. Use oxygen 3 liters/minute last night. He has been on treatment for congestive heart failure with good diuresis, has no lower extremity edema and no shortness of breath at rest. Review of Systems Review of Systems: All systems reviewed & are unremarkable except as noted in HPI and below (HPI and below) Exam Narrative: GENERAL APPEARANCE: Well developed, well nourished, alert and cooperative, and appears to be in no acute distress SKIN: Inspection of the skin reveals no rashes, ulcerations or petechiae. HEENT: Sclerae anicteric and conjunctivae pink and moist. Extraocular movements were intact and pupils were equal, round, and reactive to light. The oral mucosa, hard and soft palate, tongue and posterior pharynx were normal. NECK: Supple. There was no thyroid enlargement, and no tenderness, or masses were felt. CHEST: Decreased breath sounds with rare crackles at bases posteriorly. CARDIAC: There was a regular rate and rhythm without any murmurs, gallops, rubs. ABDOMEN: Soft and nontender with normal bowel sounds. There was no organomegaly. LYMPH NODES: No lymphadenopathy was appreciated in the neck. EXTREMITIES: No cyanosis, clubbing or edema. NEUROLOGIC: Alert and oriented x 3. Normal affect. Objective Data Vital Signs Vital Signs: Vital Signs - 24 hr 09/06/24 12:05 09/06/24 14:00 09/06/24 16:05 Temperature 35.6 C L Pulse Rate 70 69 69 Respiratory Rate 16 Blood Pressure 122/106 H Pulse Oximetry 91 Oxygen Delivery Fraction of Inspired Oxygen 09/06/24 17:08 09/06/24 20:00 09/06/24 21:41 Temperature 36.3 C L Pulse Rate 70 59 L Respiratory Rate 18 Blood Pressure 127/61 125/95 H Pulse Oximetry 92 Oxygen Delivery Fraction of Inspired Oxygen 09/07/24 00:00 09/07/24 04:00 09/07/24 06:00 Temperature 36.9 C Pulse Rate 88 70 69 Respiratory Rate 18 Blood Pressure 106/52 L Pulse Oximetry 99 Oxygen Delivery Fraction of Inspired Oxygen 09/07/24 08:51 Temperature Pulse Rate Respiratory Rate Blood Pressure Pulse Oximetry 96 Oxygen Delivery Room Air Fraction of Inspired Oxygen 21 Intake/Output Intake/Output: Intake & Output 09/04/24 09/05/24 09/06/24 09/07/24 23:59 23:59 23:59 23:59 Intake Total 1240 2520 1380 Output Total 2200 5700 7400 400 Balance -960 -3180 -6020 -400 Meds/Results Medications: Active Medications Generic Name Dose Route Start Last Admin Trade Name Freq PRN Reason Stop Dose Admin Acetaminophen 650 mg 09/04/24 07:58 Acetaminophen 325 Mg Tablet PO Q4H PRN Mild Pain (1-3) or Fever Albuterol 1 puff 09/04/24 08:00 Albuterol Sulfate (*Sp) Aerosol 1 Puff INHALATION QID PRN shortness of breath or wheezing Aspirin 81 mg 09/04/24 09:00 09/07/24 08:57 Aspirin 81 Mg Chewable Tablet PO 81 mg DAILY REJI Administration Enoxaparin Sodium 40 mg 09/04/24 09:00 09/07/24 08:56 Enoxaparin 40 Mg/0.4 Ml Syringe SUB-Q 40 mg DAILY REJI Administration Furosemide 40 mg 09/04/24 09:00 09/07/24 08:57 Furosemide Inj 40 Mg/4 Ml Vial IV PUSH 40 mg Q12HR REJI Administration Metoprolol Succinate 100 mg 09/04/24 09:00 09/07/24 08:56 Metoprolol Succinate Ext Rel 100 Mg Tabcr PO 100 mg QAM REJI Administration Potassium Chloride 20 meq 09/04/24 09:00 09/07/24 08:57 Potassium Chloride 20 Meq Packet (For Liquid) PO 20 meq DAILY REJI Administration Rosuvastatin Calcium 10 mg 09/04/24 21:00 09/06/24 20:41 Rosuvastatin 10 Mg Tablet PO 10 mg HS REJI Administration Radiology Results: ITS Impressions Renal Ultrasound 09/04/24 12:39 IMPRESSION: No hydronephrosis or renal calculi. Free fluid within the left paracolic gutter and within the pelvis, consistent with recent CT examination. Simple cyst within the right kidney for which no further follow-up is needed. Head CT 09/04/24 13:32 Impression: No acute intracranial hemorrhage or suspicious mass effect. Inflammatory sinus disease Venous Doppler Study 09/04/24 19:44 IMPRESSION: No evidence of deep venous thrombosis of the lower extremities Chest X-Ray 09/05/24 17:08 IMPRESSION: Subsegmental bibasilar atelectasis/consolidation. Possible small bilateral pleural effusions. Labs Labs: Laboratory Results - last 24 hr 09/07/24 05:13 WBC 11.0 H RBC 4.85 Hgb 13.6 L Hct 43.0 MCV 88.7 MCH 28.0 MCHC 31.6 L RDW 15.3 H Plt Count 391 H MPV 8.7 Immature Gran % (Auto) 0.4 Neut % (Auto) 55.2 Lymph % (Auto) 31.8 [place] % (Auto) 9.3 H Eos % (Auto) 2.3 Baso % (Auto) 1.0 Lymph # (Auto) 3.48 H [place] # (Auto) 1.0 H Eos # (Auto) 0.3 Baso # (Auto) 0.1 Abs Immat Gran (auto) 0.04 H Absolute Neuts (auto) 6.1 Absolute Nucleated RBC 0.000 Nucleated RBC % 0.0 Sodium 140 Potassium 3.2 L Chloride 93 L Carbon Dioxide > 40 H Anion Gap BUN 18 Creatinine 0.85 Estim Creat Clear Calc 59 Estimated GFR > 60 Glucose 97 Calcium 8.6 Total Bilirubin 0.9 AST 39 ALT 24 Alkaline Phosphatase 75 Total Protein 7.0 Albumin 3.9
--- NOTE | 2024-09-07 15:34 | P.PNIM_ITS ---
Progress Note: A&P Assessment and Plan (1) Acute hypoxic respiratory failure: Code(s): J96.01 - Acute respiratory failure with hypoxia Status: Acute Assessment and Plan: - SpO2 per nursing note at 0300 dropped to 85% on room air while patient sleeping, placed on 2L NC - Oxygen supplementation: weaned back to baseline room air, maintain SPO2 >90 - Suspected cause: CHF exacerbation vs possible nocturnal hypoxia vs JAM vs diazepam - See CHF plan below - Patient is lethargic, intermittently falling asleep during assessment ABG unremarkable Head CT showing no acute intracranial hemorrhage or suspicious mass effect - Concern for possible JAM, patient denies previous sleep study. Notes that he snores nightly, often wakes unable to catch breath, and feels fatigued most mornings. No hypercapnia noted on ABG, not meeting CPAP requirements Apnea link performed on RA, showing 31 episodes of apnea. SpO2 < 85% for 113 min, < 88% for 247 min. Spoke with pulmonology Dr. Rosales. Will place patient on 3L NC overnight and repeat CXR in the am to reassess pulmonary congestion. Chest XR showing subsegmental bibasilar atelectasis/consolidation and possible small bilateral pleural effusions. - Pulmonology consulted Optimize treatment for CHF and start the patient on supplemental oxygen at night at approximately 3 liters/minute. Prior to discharge home, repeat ApneaLink. May need supplemental oxygen while on treatment for congestive heart failure. pulm following pt is stable- anticipate discharge in am tomorrow (2) Acute exacerbation of CHF (congestive heart failure): Qualifiers: Heart failure type: combined systolic and diastolic Qualified Code(s): I50.43 - Acute on chronic combined systolic (congestive) and diastolic (congestive) heart failure Code(s): I50.9 - Heart failure, unspecified Status: Acute Assessment and Plan: During prior admission evaluated by cardiology. Patient remained on lasix 40 mg daily and lopressor 50 mg p.o. b.i.d converted to Toprol 100 mg p.o. daily. Blood pressures at that time were not able tolerate any further additional guideline directed medical therapy - Symptoms: shortness of breath with exertion and lower extremity edema - Current medications: lasix 40 mg IV BID, metoprolol 100 mg daily - BNP: 06931 - EKG: sinus rhythm - Chest XR: Cardiomegaly and moderate pulmonary vascular congestion without focal infiltrate. - Echo 3/11 showed LVEF 40-45% with grade I diastolic dysfunction, pulmonary hypertension, mod mitral valve regurgitation, and mild tricuspid valve regurgitation. - 3+ pitting edema BLE on admission exam. +/- afib history on chart review and patient only on asa. Venous dopplers negative. - IS - Monitor vital signs, I&Os, BUN/creatinine, daily weights, neuro status and patient is a fall risk - Monitor serum electrolytes, Keep serum Potassium>4 and serum Magnesium>2 and CBC Repeat Chest XR showing subsegmental bibasilar atelectasis/consolidation. Possible small bilateral pleural effusions. Continue current treatment plan with IV lasix for diuresis (3) Acute kidney injury: Code(s): N17.9 - Acute kidney failure, unspecified Status: Acute Assessment and Plan: BUN/Cr 27/1.31 with GFR 53 on admission. Previously WNL. Possible renal congestion secondary to fluid overload related to heart failure exacerbation Patient denies poor oral intake - BUN/Cr 21/0.91 - renal US no hydronephrosis or renal calculi, free fluid within the left paracolic gutter and within the pelvis, simple cyst within the right kidney - Avoid nephrotoxic medications - Renally dose medications - Monitor I/O Resolved. (4) Hypertension: Code(s): I10 - Essential (primary) hypertension Status: Chronic Assessment and Plan: chronic - lasix 40 mg IV BID for CHF exacerbation - metoprolol 100 mg daily - blood pressures reviewed and remain stable, continue to monitor (5) Substance abuse: Code(s): F19.10 - Other psychoactive substance abuse, uncomplicated Status: Chronic Assessment and Plan: Patient uses cocaine and marijuana, states last used 2 weeks ago at his sons birthday republic[employer]. UDS positive for benzos, cocaine, and cannabinoids. Encouraged cessation. Per RN patient was found to have diazepam in his hospital gown pocket and his night side table. Confiscated by the RN. Patient states that he has been using the diazepam since admission noting that he has taken about 4-5 tablets, 1 every 4-5 hours. He states that he has been taking diazepam for as long as he can remember and gets them off the street. Denies prior withdrawal. Discussed patient with Dr. Harding and will continue to monitor for withdrawals at this time. Placed on seizure precautions and neuro checks. Patient denies a need for a care coordination consult for substance abuse Patient is much more awake and alert at time of assessment. Continue current treatment plan. Time Spent With Patient Time with patient: 25 - 35 minutes Subjective Date/time seen: 09/07/24 15:34 Interval history: Patient has no new respiratory symptoms. Use oxygen 3 liters/minute last night. He has been on treatment for congestive heart failure with good diuresis, has no lower extremity edema and no shortness of breath at rest. PUlm following- apnea link study tonight- anticipate discharge in am. pt denies chest pain, sob. Review of Systems Review of Systems: All systems reviewed & are unremarkable except as noted in HPI and below Exam Narrative: General: male in no acute respiratory distress who is nontoxic appearing, sitting up in bed. Chest: Lungs are clear to the uppers with slight crackles to auscultation in the bases. No wheezes. CV: Heart was regular rate and rhythm. S1/S2. No murmurs, gallops, or rubs. Abd: Abdomen was soft. Nontender. Nondistended. Positive bowel sounds. Ext: No clubbing, cyanosis. Trivial edema BLE. DP pulses bilaterally. Neuro: Patient is alert and oriented x4. Speech is clear. Psych: Much more alert. Objective Data Vital Signs Vital Signs: Vital Signs - 24 hr 09/06/24 16:05 09/06/24 17:08 09/06/24 20:00 Temperature Pulse Rate 69 70 Respiratory Rate Blood Pressure 127/61 Pulse Oximetry Oxygen Delivery Fraction of Inspired Oxygen 09/06/24 21:41 09/07/24 00:00 09/07/24 04:00 Temperature 97.4 F L Pulse Rate 59 L 88 70 Respiratory Rate 18 Blood Pressure 125/95 H Pulse Oximetry 92 Oxygen Delivery Fraction of Inspired Oxygen 09/07/24 06:00 09/07/24 08:51 09/07/24 08:55 Temperature 98.4 F Pulse Rate 69 Respiratory Rate 18 Blood Pressure 106/52 L Pulse Oximetry 99 96 Oxygen Delivery Room Air Room Air Fraction of Inspired Oxygen 09/07/24 14:00 Temperature 97.6 F Pulse Rate 69 Respiratory Rate 18 Blood Pressure 119/74 Pulse Oximetry 93 Oxygen Delivery Fraction of Inspired Oxygen Intake/Output Intake/Output: Intake & Output 09/04/24 09/05/24 09/06/2425 23:59 23:59 23:59 23:59 Intake Total 1240 2520 1380 1150 Output Total 2200 5700 7463 400 Balance -789 -8276 -4665 750 Meds/Results Medications: Active Medications Generic Name Dose Route Start Last Admin Trade Name Freq PRN Reason Stop Dose Admin Acetaminophen 650 mg 09/04/24 07:58 Acetaminophen 325 Mg Tablet PO Q4H PRN Mild Pain (1-3) or Fever Albuterol 1 puff 09/04/24 08:00 Albuterol Sulfate (*Sp) Aerosol 1 Puff INHALATION QID PRN shortness of breath or wheezing Aspirin 81 mg 09/04/24 09:00 09/07/24 08:57 Aspirin 81 Mg Chewable Tablet PO 81 mg DAILY REJI Administration Enoxaparin Sodium 40 mg 09/04/24 09:00 09/07/24 08:56 Enoxaparin 40 Mg/0.4 Ml Syringe SUB-Q 40 mg DAILY REJI Administration Furosemide 40 mg 09/04/24 09:00 09/07/24 08:57 Furosemide Inj 40 Mg/4 Ml Vial IV PUSH 40 mg Q12HR REJI Administration Metoprolol Succinate 100 mg 09/04/24 09:00 09/07/24 08:56 Metoprolol Succinate Ext Rel 100 Mg Tabcr PO 100 mg QAM REJI Administration Potassium Chloride 20 meq 09/04/24 09:00 09/07/24 08:57 Potassium Chloride 20 Meq Packet (For Liquid) PO 20 meq DAILY REJI Administration Rosuvastatin Calcium 10 mg 09/04/24 21:00 09/06/24 20:41 Rosuvastatin 10 Mg Tablet PO 10 mg HS REJI Administration Radiology Results: ITS Impressions Renal Ultrasound 09/04/24 12:39 IMPRESSION: No hydronephrosis or renal calculi. Free fluid within the left paracolic gutter and within the pelvis, consistent with recent CT examination. Simple cyst within the right kidney for which no further follow-up is needed. Head CT 09/04/24 13:32 Impression: No acute intracranial hemorrhage or suspicious mass effect. Inflammatory sinus disease Venous Doppler Study 09/04/24 19:44 IMPRESSION: No evidence of deep venous thrombosis of the lower extremities Chest X-Ray 09/05/24 17:08 IMPRESSION: Subsegmental bibasilar atelectasis/consolidation. Possible small bilateral pleural effusions. Labs Labs: Laboratory Results - last 24 hr 09/07/24 05:13 WBC 11.0 H RBC 4.85 Hgb 13.6 L Hct 43.0 MCV 88.7 MCH 28.0 MCHC 31.6 L RDW 15.3 H Plt Count 391 H MPV 8.7 Immature Gran % (Auto) 0.4 Neut % (Auto) 55.2 Lymph % (Auto) 31.8 [place] % (Auto) 9.3 H Eos % (Auto) 2.3 Baso % (Auto) 1.0 Lymph # (Auto) 3.48 H [place] # (Auto) 1.0 H Eos # (Auto) 0.3 Baso # (Auto) 0.1 Abs Immat Gran (auto) 0.04 H Absolute Neuts (auto) 6.1 Absolute Nucleated RBC 0.000 Nucleated RBC % 0.0 Sodium 140 Potassium 3.2 L Chloride 93 L Carbon Dioxide > 40 H Anion Gap BUN 18 Creatinine 0.85 Estim Creat Clear Calc 59 Estimated GFR > 60 Glucose 97 Calcium 8.6 Total Bilirubin 0.9 AST 39 ALT 24 Alkaline Phosphatase 75 Total Protein 7.0 Albumin 3.9 Quality VTE Prophylaxis VTE prophylaxis: pharmacologic ordered
[2024-09-07] MEDS: ROSUVASTATIN 10 MG TABLET PO (20:20)
[2024-09-08] VITALS (8 sets, daily range): BP systolic 114; BP diastolic 74; PULSE 70–78; RESP 16; TEMP 36.5; O2SAT 95–97
[2024-09-08 06:19] LABS: Basophils Absolute Auto 0.1 K/mm3 (0.0-0.1); Eosinophils Absolute Auto 0.3 K/mm3 (0-0.3); Eosinophils Percent Auto 2.4 % (0-4.4); Hematocrit 39.9 % (42.0-52.0); Hemoglobin 12.5 g/dL (14.0-18.0); Immature Granulocyte Absolute 0.04 K/mm3 (0.00-0.031); Immature Granulocyte Percent A 0.3 % (0-0.5); Lymphocytes Absolute Auto 3.42 K/mm3 (0.9-3.2); Lymphocytes Percent Auto 29.8 % (18.3-44.2); Mean Corpuscular HGB Conc 31.3 g/dl (32-36); Mean Corpuscular Hemoglobin 27.5 pg (26-34); Mean Corpuscular Volume 87.7 fl (80-100); Mean Platelet Volume 8.7 fl (7.4-10.4); Monocytes Percent Auto 8.5 % (2.6-8.5); Neutrophils Absolute Auto 6.7 K/mm3 (1.3-6.7); Platelet Count Result 365 k/mm3 (150-375); Red Blood Count 4.55 M/mm3 (4.6-6.20); Red Cell Distribution Width 15.1 % (11.5-14.5); White Blood Count 11.5 K/mm3 (4.5-10.0)
[2024-09-08 06:28] LABS: Alanine Aminotransferase 23 U/L (6-50); Albumin Level 3.8 g/dL (3.5-5.1); Alkaline Phosphatase 76 U/L (38-126); Anion Gap 7 mmol/L (4-12); Aspartate Amino Transferase 39 U/L (17-59); Bilirubin,Total 0.9 mg/dL (0.2-1.3); Blood Urea Nitrogen 19 mg/dL (9-20); Calcium 8.6 mg/dL (8.4-10.2); Carbon Dioxide 38 mmol/L (22-30); Chloride 93 mmol/L (98-107); Estimated CRCL calculation 61 ml/min; Estimated Glomerular Filt Rate > 60; Glucose 99 mg/dL (65-110); Potassium 3.1 mmol/L (3.4-5.0); Sodium 138 mmol/L (137-145)
[2024-09-08] MEDS: ASPIRIN 81 MG CHEWABLE TABLET PO (08:35)
[2024-09-08] MEDS: METOPROLOL SUCCINATE EXT REL 100 MG TABCR PO (08:35)
[2024-09-08] MEDS: FUROSEMIDE INJ 40 MG/4 ML VIAL IV PUSH (08:36)
[2024-09-08] MEDS: ENOXAPARIN 40 MG/0.4 ML SYRINGE SUB-Q (08:36)
--- NOTE | 2024-09-08 10:17 | PM.PNPUL ---
Progress Note: A&P Assessment and Plan (1) Acute hypoxic respiratory failure: Code(s): J96.01 - Acute respiratory failure with hypoxia Status: Acute Assessment and Plan: This 74-year-old man, with no prior history of lung disease but a history of substance abuse, presented with shortness of breath and lower extremity edema. Notably, two weeks prior to this hospitalization, he was diagnosed with congestive heart failure with low ejection fraction, while his chest imaging studies, including a chest CT, showed pulmonary congestion and moderate pleural effusions related to congestive heart failure. The patient reportedly did not take any medications for congestive heart failure when discharged home post abdominal surgery. On physical exam, he is breathing ambient air and has decreased breath sounds at the bases along with a few crackles, most likely related to pleural effusions, which on the admission x-ray were significantly less compared to those of two weeks prior to this hospitalization. A recent ApneaLink study showed significant oxyhemoglobin desaturation on room air, which is most likely related to congestive heart failure with bilateral pleural effusions and residual lung congestion. The patient may have sleep-disordered breathing, but he is not overly obese, and there is no evidence of obesity hypoventilation, at least on clinical grounds and in the absence of significant hypercapnia on arterial blood gases. Over the past 24 hours, the patient's respiratory status has remained stable. He underwent a repeat ApneaLink study on room air, which again showed oxyhemoglobin desaturation, but there was significant improvement compared to the initial ApneaLink study. On physical examination, the patient continues to have some crackles at the bases posteriorly. However, his overall respiratory status has significantly improved while he is receiving treatment for congestive heart failure. Plan: The patient can be discharged home from a respiratory standpoint. He will need to start home oxygen at 3 liters/minute at night and possibly during the day as determined by his home oxygen evaluation tests. I advised the patient to call the Pulmonary Clinic to make an appointment in approximately one month. I provided the patient with contact information for the Pulmonary Clinics and will notify our scheduling pocket secretary assembler. I will sign off at this point; please call with any questions. (2) Substance abuse: Code(s): F19.10 - Other psychoactive substance abuse, uncomplicated Status: Chronic (3) Acute exacerbation of CHF (congestive heart failure): Qualifiers: Heart failure type: combined systolic and diastolic Qualified Code(s): I50.43 - Acute on chronic combined systolic (congestive) and diastolic (congestive) heart failure Code(s): I50.9 - Heart failure, unspecified Status: Acute (4) Congestive heart failure: Code(s): I50.9 - Heart failure, unspecified Status: Acute (5) Atrial fibrillation with RVR: Code(s): I48.91 - Unspecified atrial fibrillation Status: Acute Subjective Date/time seen: 09/08/24 10:17 Interval history: Patient has no new respiratory symptoms. Underwent sleep apnea study last night. Currently no shortness of breath or lower extremity edema. He is receiving treatment for congestive heart failure. Eager to go home Review of Systems Review of Systems: All systems reviewed & are unremarkable except as noted in HPI and below Exam Narrative: GENERAL APPEARANCE: Well developed, well nourished, alert and cooperative, and appears to be in no acute distress SKIN: Inspection of the skin reveals no rashes, ulcerations or petechiae. HEENT: Sclerae anicteric and conjunctivae pink and moist. Extraocular movements were intact and pupils were equal, round, and reactive to light. The oral mucosa, hard and soft palate, tongue and posterior pharynx were normal. NECK: Supple. There was no thyroid enlargement, and no tenderness, or masses were felt. CHEST: Decreased breath sounds with rare crackles at bases posteriorly. CARDIAC: There was a regular rate and rhythm without any murmurs, gallops, rubs. ABDOMEN: Soft and nontender with normal bowel sounds. There was no organomegaly. LYMPH NODES: No lymphadenopathy was appreciated in the neck. EXTREMITIES: No cyanosis, clubbing or edema. NEUROLOGIC: Alert and oriented x 3. Normal affect. Objective Data Vital Signs Vital Signs: Vital Signs - 24 hr 09/07/24 12:05 09/07/24 14:00 09/07/24 16:00 Temperature 36.4 C Pulse Rate 84 69 77 Respiratory Rate 18 Blood Pressure 119/74 Pulse Oximetry 93 Oxygen Delivery Fraction of Inspired Oxygen 09/07/24 20:00 09/07/24 21:44 09/07/24 22:29 Temperature 36.6 C Pulse Rate 81 98 Respiratory Rate 20 Blood Pressure 115/62 Pulse Oximetry 92 93 Oxygen Delivery Room Air Fraction of Inspired Oxygen 09/08/24 00:00 09/08/24 04:00 09/08/24 05:31 Temperature 36.5 C Pulse Rate 75 74 70 Respiratory Rate 16 Blood Pressure 114/74 Pulse Oximetry 97 Oxygen Delivery Fraction of Inspired Oxygen 09/08/24 08:55 Temperature Pulse Rate Respiratory Rate Blood Pressure Pulse Oximetry Oxygen Delivery Room Air Fraction of Inspired Oxygen Intake/Output Intake/Output: Intake & Output 09/05/24 09/06/24 09/07/24 09/08/24 23:59 23:59 23:59 23:59 Intake Total 2520 1380 1390 1590 Output Total 5700 7400 1800 575 Balance -3180 -6020 -410 1015 Meds/Results Medications: Active Medications Generic Name Dose Route Start Last Admin Trade Name Freq PRN Reason Stop Dose Admin Acetaminophen 650 mg 09/04/24 07:58 Acetaminophen 325 Mg Tablet PO Q4H PRN Mild Pain (1-3) or Fever Albuterol 1 puff 09/04/24 08:00 Albuterol Sulfate (*Sp) Aerosol 1 Puff INHALATION QID PRN shortness of breath or wheezing Aspirin 81 mg 09/04/24 09:00 09/08/24 08:35 Aspirin 81 Mg Chewable Tablet PO 81 mg DAILY REJI Administration Enoxaparin Sodium 40 mg 09/04/24 09:00 09/08/24 08:36 Enoxaparin 40 Mg/0.4 Ml Syringe SUB-Q 40 mg DAILY REJI Administration Furosemide 40 mg 09/04/24 09:00 09/08/24 08:36 Furosemide Inj 40 Mg/4 Ml Vial IV PUSH 40 mg Q12HR REJI Administration Metoprolol Succinate 100 mg 09/04/24 09:00 09/08/24 08:35 Metoprolol Succinate Ext Rel 100 Mg Tabcr PO 100 mg QAM REJI Administration Potassium Chloride 20 meq 09/04/24 09:00 09/08/24 08:41 Potassium Chloride 20 Meq Packet (For Liquid) PO Not Given DAILY REJI Rosuvastatin Calcium 10 mg 09/04/24 21:00 09/07/24 20:20 Rosuvastatin 10 Mg Tablet PO 10 mg HS REJI Administration Radiology Results: ITS Impressions Renal Ultrasound 09/04/24 12:39 IMPRESSION: No hydronephrosis or renal calculi. Free fluid within the left paracolic gutter and within the pelvis, consistent with recent CT examination. Simple cyst within the right kidney for which no further follow-up is needed. Head CT 09/04/24 13:32 Impression: No acute intracranial hemorrhage or suspicious mass effect. Inflammatory sinus disease Venous Doppler Study 09/04/24 19:44 IMPRESSION: No evidence of deep venous thrombosis of the lower extremities Chest X-Ray 09/05/24 17:08 IMPRESSION: Subsegmental bibasilar atelectasis/consolidation. Possible small bilateral pleural effusions. Labs Labs: Laboratory Results - last 24 hr 09/08/24 06:06 WBC 11.5 H RBC 4.55 L Hgb 12.5 L Hct 39.9 L MCV 87.7 MCH 27.5 MCHC 31.3 L RDW 15.1 H Plt Count 365 MPV 8.7 Immature Gran % (Auto) 0.3 Neut % (Auto) 58.0 Lymph % (Auto) 29.8 [place] % (Auto) 8.5 Eos % (Auto) 2.4 Baso % (Auto) 1.0 Lymph # (Auto) 3.42 H [place] # (Auto) 1.0 H Eos # (Auto) 0.3 Baso # (Auto) 0.1 Abs Immat Gran (auto) 0.04 H Absolute Neuts (auto) 6.7 Absolute Nucleated RBC 0.000 Nucleated RBC % 0.0 Sodium 138 Potassium 3.1 L Chloride 93 L Carbon Dioxide 38 H Anion Gap 7 BUN 19 Creatinine 0.82 Estim Creat Clear Calc 61 Estimated GFR > 60 Glucose 99 Calcium 8.6 Total Bilirubin 0.9 AST 39 ALT 23 Alkaline Phosphatase 76 Total Protein 7.0 Albumin 3.8
--- NOTE | 2024-09-08 12:04 | PCRCNOTE ---
Home O2 eval done, only needs nocturnal O2 at 3 l. Will arrange home O2 with [facility].
--- NOTE | 2024-09-08 13:13 | PM.DS ---
DS: Admitting Diagnosis Discharge Date 09/08 Admitting Diagnosis sob, chest pain DS: Discharge Diagnosis Discharge Diagnosis (1) Acute hypoxic respiratory failure: Code(s): J96.01 - Acute respiratory failure with hypoxia Status: Acute (2) Acute exacerbation of CHF (congestive heart failure): Qualifiers: Heart failure type: combined systolic and diastolic Qualified Code(s): I50.43 - Acute on chronic combined systolic (congestive) and diastolic (congestive) heart failure Code(s): I50.9 - Heart failure, unspecified Status: Acute (3) Acute kidney injury: Code(s): N17.9 - Acute kidney failure, unspecified Status: Acute (4) Hypertension: Code(s): I10 - Essential (primary) hypertension Status: Chronic (5) Substance abuse: Code(s): F19.10 - Other psychoactive substance abuse, uncomplicated Status: Chronic DS: Summary Hospital Course Hospital Course: 74-year-old male with a significant past medical history hyperlipidemia, hypertension, Vitamin D3 deficiency, CHF, cocaine and marijuana abuse who presented to the hospital with complaint lower extremity swelling and shortness of breath with exertion. Patient previously admitted on 08/23-08/28 for heart failure exacerbation, possible afib rvr, and small bowel obstruction secondary to incarcerated umbilical hernia s/p robotic assisted repair incarcerated umbilical hernia measuring 4.5 cm, myofascial release x2 on 08/[address] Lewis. Patient evaluated by cardiology - He remained on lasix 40 mg daily and was converted from Lopressor 50 mg p.o. b.i.d. to Toprol 100 mg p.o. daily. He was unable to have further GDMT medications added to his regimen as his blood pressure could not tolerate. Patient states that after discharge he stopped taking all medications. He notes that he got the prescriptions filled but would forget to take them everyday. He states that the shortness of breath has been ongoing since discharge but has continued to get worse of the past week. Several issues were addressed: # acute resp failure SpO2 per nursing note at 0300 dropped to 85% on room air while patient sleeping, placed on 2L NC - Oxygen supplementation: weaned back to baseline room air, maintain SPO2 >90 - Suspected cause: CHF exacerbation vs possible nocturnal hypoxia vs JAM vs diazepam ABG unremarkable Head CT showing no acute intracranial hemorrhage or suspicious mass effect - Concern for possible JAM, patient denies previous sleep study. Notes that he snores nightly, often wakes unable to catch breath, and feels fatigued most mornings. No hypercapnia noted on ABG, not meeting CPAP requirements Apnea link performed on RA, showing 31 episodes of apnea. SpO2 < 85% for 113 min, < 88% for 247 min. Spoke with pulmonology Dr. Rosales. Will place patient on 3L NC overnight and repeat CXR in the am to reassess pulmonary congestion. - was supposed to have another apnea link study last night but refused. Dr Rosales is aware. The patient can be discharged home from a respiratory standpoint. He will need to start home oxygen at 3 liters/minute at night and possibly during the day as determined by his home oxygen evaluation tests. I advised the patient to call the Pulmonary Clinic to make an appointment in approximately one month # Heart failure type: combined systolic and diastolic During prior admission evaluated by cardiology. Patient remained on lasix 40 mg daily and lopressor 50 mg p.o. b.i.d converted to Toprol 100 mg p.o. daily. Blood pressures at that time were not able tolerate any further additional guideline directed medical therapy - Symptoms: shortness of breath with exertion and lower extremity edema - Current medications: lasix 40 mg IV BID, metoprolol 100 mg daily - BNP: 59117 - EKG: sinus rhythm - Chest XR: Cardiomegaly and moderate pulmonary vascular congestion without focal infiltrate. - Echo 08/23 showed LVEF 40-45% with grade I diastolic dysfunction, pulmonary hypertension, mod mitral valve regurgitation, and mild tricuspid valve regurgitation. - 3+ pitting edema BLE on admission exam. +/- afib history on chart review and patient only on asa. Venous dopplers negative. - IS - Monitor vital signs, I&Os, BUN/creatinine, daily weights, neuro status and patient is a fall risk - Monitor serum electrolytes, Keep serum Potassium>4 and serum Magnesium>2 and CBC Status at Discharge Functional status at discharge: independent ambulation Overall status at discharge: patient is progressing back to baseline Time Spent with Patient Time attestation: Total time spent providing and/or coordinating discharge services: Time spent: Greater than 30 minutes Exam Narrative: General: male in no acute respiratory distress who is nontoxic appearing, sitting up in bed. Chest: Lungs are clear to the uppers with slight crackles to auscultation in the bases. No wheezes. CV: Heart was regular rate and rhythm. S1/S2. No murmurs, gallops, or rubs. Abd: Abdomen was soft. Nontender. Nondistended. Positive bowel sounds. Ext: No clubbing, cyanosis. Trivial edema BLE. DP pulses bilaterally. Neuro: Patient is alert and oriented x4. Speech is clear. Psych: Much more alert. Const: General: comfortable Resp: Effort & Inspection: normal respiratory effort DS: Data Data Completed and Pending Labs on day of discharge: Labs from last 24 hours 09/08/24 06:06 WBC 11.5 H RBC 4.55 L Hgb 12.5 L Hct 39.9 L MCV 87.7 MCH 27.5 MCHC 31.3 L RDW 15.1 H Plt Count 365 MPV 8.7 Immature Gran % (Auto) 0.3 Neut % (Auto) 58.0 Lymph % (Auto) 29.8 [place] % (Auto) 8.5 Eos % (Auto) 2.4 Baso % (Auto) 1.0 Lymph # (Auto) 3.42 H [place] # (Auto) 1.0 H Eos # (Auto) 0.3 Baso # (Auto) 0.1 Abs Immat Gran (auto) 0.04 H Absolute Neuts (auto) 6.7 Absolute Nucleated RBC 0.000 Nucleated RBC % 0.0 Sodium 138 Potassium 3.1 L Chloride 93 L Carbon Dioxide 38 H Anion Gap 7 BUN 19 Creatinine 0.82 Estim Creat Clear Calc 61 Estimated GFR > 60 Glucose 99 Calcium 8.6 Total Bilirubin 0.9 AST 39 ALT 23 Alkaline Phosphatase 76 Total Protein 7.0 Albumin 3.8 Discharge Plan Discharge Attending physician on discharge: Rufus Bryan Consulting providers: Bernard Rosales Discharging Clinician: Ling Ha Patient Disposition: Home, Self-Care Activity: may shower Diet: heart healthy Discharge Instructions: Please take your prescribed medication. Please avoid street drugs, alcohol or tobacco. F/u with pulmonology and cardiology as well as PCP. PLease f/u with pulm about sleep study as well. Patient Instructions: Antibiotic Form Patient Language: Sinhala Stand Alone Forms: General Discharge Information Follow-up/Referrals: Gagandeep Argueta MD [Physician] - 2 Weeks Bernard Rosales MD [Physician] - 2 Weeks [facility] [Primary Care Provider] - 2 Weeks Discharge Medications: Continued aspirin 81 mg tablet,chewable 81 mg PO DAILY cholecalciferol (vitamin D3) 50 mcg (2,000 unit) capsule 2,000 unit PO DAILY furosemide 40 mg Tablet 40 mg PO DAILY Qty: 30 1RF metoprolol succinate [Toprol XL] 100 mg Tablet Extended Release 24 Hr 100 mg PO QAM Qty: 60 0RF potassium chloride 20 mEq Packet 20 meq PO DAILY Qty: 30 0RF rosuvastatin [Crestor] 20 mg tablet 10 mg PO HS Qty: 30 0RF albuterol sulfate [Ventolin HFA] 90 mcg/actuation HFA aerosol inhaler 1 inh inhalation QID PRN (Reason: shortness of breath or wheezing) Qty: 8.5 2RF Date of admission: 09/05/24 08:48 Primary Care Provider: [facility] Admitting Provider: Vel Harding Attending physician on admission: Desirae Tyson Condition: Stable Quality VTE Prophylaxis VTE prophylaxis: pharmacologic ordered Hospitalist MIPS Heart Failure (Exclusion) Patient has history of Heart Transplant or Left Ventricular Assistive Device?: No IF YES, STOP HERE Heart Failure (Qualifier) Patient has current or prior documentation of LVEF less than or equal to 40%, or mod/servere depressed LVSF?: No IF NO, STOP HERE
--- NOTE | 2024-09-08 13:42 | PC.NURSE ---
On 09/08/24, the student, Anna Álvarez, provided care and completed [facility] documentation on this patient. I have reviewed the student's documentation and agree with the findings.
[2024-09-08] MEDS: POTASSIUM CHLORIDE 20 MEQ ER TABLET 40 MEQ PO (13:53)
== END 2024-09-08 14:40 | disposition home or self-care (01) | DRG 291 ==
LOC: ANHED 03:59 → ANH3MED 04:44
PROVIDERS: Student in an Organized Health Care Education/Training Program; Admitting Provider Internal Medicine; Emergency Provider Emergency Medicine; Visit Provider Nurse Practitioner
DX: I11.0 Hypertensive heart disease with heart failure (principal); I50.43 Acute on chronic combined systolic (congestive) and diastolic (congestive) heart failure; J96.01 Acute respiratory failure with hypoxia; N17.9 Acute kidney failure, unspecified; E78.5 Hyperlipidemia, unspecified; E55.9 Vitamin D deficiency, unspecified; F12.90 Cannabis use, unspecified, uncomplicated; F14.90 Cocaine use, unspecified, uncomplicated; I48.91 Unspecified atrial fibrillation; I08.1 Rheumatic disorders of both mitral and tricuspid valves; Z79.82 Long term (current) use of aspirin; Z90.49 Acquired absence of other specified parts of digestive tract; Z66 Do not resuscitate
CPT/HCPCS: 36415; 36600; 70450; 71045; 71046; 76775; 80053; 80307; 81001; 82805; 83605; 83880; 85018; 85025; 85610; 85730; 93005; 93970; 94618; 94762; 96372; 96374; 96376; 97110; 97161; 97165; 97530; 97535; 99285; A9270; G0378; J1650; J1940

== ENCOUNTER 2024-10-17 13:57 | Emergency (ER) | payer MEDICARE, OTHER, SELFPAY ==
--- NOTE | ~2024-10-17 | XR_ITS ---
XR chest 2V Ordering provider: Mildred Lara PA-C History: 74 years Male with . sob . Comparison: September 08, 2024 FINDINGS: MEDIASTINUM: The cardiac silhouette is not enlarged. Congestive ezequiel. LUNGS: No pneumothorax. Bibasilar opacification suggestive of atelectasis versus pneumonia.. Left ple ural effusion. OTHER: No free air under the diaphragm. IMPRESSION: Bibasilar atelectasis versus pneumonia. Left pleural effusion. Reviewed, dictated and finalized at location A.
--- NOTE | ~2024-10-17 | XR_ITS ---
Exam: Abdomen 1V HISTORY: constipation COMPARISON: None. TECHNIQUE: Supine images of the abdomen FINDINGS: Bowel gas pattern is nonspecific and non-obstructive. Air is identified within the rectum. No dilated loops of small or large bowel. There is no free air or deep sulci. No pathologic calcifications are seen. Lung bases are not included. Multiple phleboliths within the pelvis. IMPRESSION: Nonspecific, nonobstructive bowel gas pattern, as detailed above. Reviewed, dictated and finalized at location A.
--- NOTE | ~2024-10-17 | US_ITS ---
BILATERAL LOWER EXTREMITY VENOUS ULTRASOUND Ordering provider: Mildred Lara History: . LE edema, recent surgery . Comparison: None. FINDINGS: RIGHT LOWER EXTREMITY VEINS: --COMMON FEMORAL: Patent and free of thrombus. Normal compressibility, phasic flow and augmentation. --PROXIMAL SUPERFICIAL FEMORAL: Patent and free of thrombus. Normal compressibility, phasic flow and augmentation. --DISTAL SUPERFICIAL FEMORAL: Patent and free of thrombus. Normal compressibility, phasic flow and au gmentation. --POPLITEAL: Patent and free of thrombus. Normal compressibility, phasic flow and augmentation. --POSTERIOR TIBIAL: Patent and free of thrombus. Normal compressibility, phasic flow and augmentation . LEFT LOWER EXTREMITY VEINS: --COMMON FEMORAL: Patent and free of thrombus. Normal compressibility, phasic flow and augmentation. --PROXIMAL SUPERFICIAL FEMORAL: Patent and free of thrombus. Normal compressibility, phasic flow and augmentation. --DISTAL SUPERFICIAL FEMORAL: Patent and free of thrombus. Normal compressibility, phasic flow and au gmentation. --POPLITEAL: Patent and free of thrombus. Normal compressibility, phasic flow and augmentation. --POSTERIOR TIBIAL: Patent and free of thrombus. Normal compressibility, phasic flow and augmentation . IMPRESSION: Negative bilateral lower extremity venous US. No deep vein thrombosis. Reviewed, dictated and finalized at location A.
--- OUTSIDE RECORDS SUMMARY | 2024-10-17 14:35 | XMS_ITS | Clinical Summary ---
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 Scapholunate ligament injury , no instability, left, initial encounter 12/28/2017 Encounters Date Type Department Care Team Description 09/07/2024 Orders Only [facility] Cardiology [address] [place] [address] Linda Dang MD 09/06/2024 Telephone [facility] Care Organization [address] [place] [id number] Caitlin Queen MA Unsuccessful Phone Call 1 ([employer] AWV) 08/31/2024 Orders Only [facility] Medical [facility] Cardiology [address] [place] [phone] Linda Dang MD 08/30/2024 Orders Only [facility] Medical [facility] Cardiology [address] [place] [phone] Linda Dang MD 08/22/2024 5:19 PM CDT - 08/22/2024 8:28 PM CDT Emergency [facility] Emergency Department 1 [place] [address] Discharge Disposition: Left without being seen 08/15/2024 8:47 AM DIE TRIMMER - 08/15/2024 3:05 PM DIE TRIMMER Emergency [facility] Emergency Department [address] [place] [address] Gayla Malcolm MD Atrial fibrillation with controlled ventricular rate (HCC) (Primary Dx); Acute on chronic combined systolic and diastolic congestive heart failure (HCC) Discharge Disposition: Discharge to home or self care from Last 3 Months Surgical History Surgery [...] on file Legal Sex Male 1:47 AM DIE TRIMMER Gender Identity Not on file Sexual Orientation [...] of 3) 06/13/2022 04/18/2022, 11/03 Covid-19 Vaccine ( - 2023-2 5 season) 2024 05/05/2023, 04/18/2021, 08/23/2020 Fall Risk Assessment 07/17/2024 07/17/2023 Influenza Vaccine (Season Ended) 2025 05/05/2023, 03/16/2020, 03/23/2018, Additional history exists Colon Cancer Screening-Colonoscopy 07/16/2027 07/16/2017, 08/07/2011 DTaP/Tdap/Td [...] history exists Medical Devices Implanted Type Area Extrusion Operator Device Identifier Shelf Expiration Date Model / Serial / Lot LicenseMetrics 8600-5x05 Graftjacket [id number] Regenerative Nonmesh Standard Graft - [id number] Implanted:Qty: 1 on 07/06/2018 by Kirby Rm III, MD at [facility] Left: Wrist [employer] 01/13/2020 8600-5X05 / / [id number] Procedures Procedure Name Priority Date/Time Associated Diagnosis Comments CARDIOLOGY DOCUMENT SCAN Routine 08/25/2024 4:38 PM CDT CARDIOLOGY DOCUMENT SCAN Routine 08/24/2024 2:01 PM CDT CARDIOLOGY DOCUMENT SCAN Routine 08/24/2024 1:31 PM CDT CARDIOLOGY DOCUMENT SCAN Routine 08/24/2024 12:54 PM CDT CARDIOLOGY DOCUMENT SCAN Routine 08/23/2024 8:37 AM CDT PRO B-TYPE NATRIURETIC PEPTIDE STAT 08/22/2024 5:36 PM CDT MANUAL DIFFERENTIAL STAT 08/22/2024 5 :36 PM CDT EGFR STAT 08/22/2024 5:36 PM CDT LIPASE STAT 08/22/2024 5:36 PM CDT COMPREHENSIVE METABOLIC PANEL STAT 08/22/2024 5:36 PM CDT CBC WITH AUTO DIFFERENTIAL STAT 08/22/2024 5:36 PM CDT TROPONIN T HIGH-SENSITIVITY 2-HOUR Timed 08/15/2024 11:29 AM DIE TRIMMER URINALYSIS AND REFLEX TO MICROSCOPIC AND CULTURE STAT 08/15/2024 11:29 AM DIE TRIMMER EGFR STAT 08/15/2024 10:37 AM DIE TRIMMER HEPATIC FUNCTION PANEL STAT 10:37 AM DIE TRIMMER PRO B-TYPE NATRIURETIC PEPTIDE Add-On 08/15/2024 10:37 AM DIE TRIMMER CREATININE STAT 08/15/2024 10:37 AM DIE TRIMMER CBC WITHOUT DIFFERENTIAL STAT 08/15/2024 10:37 AM DIE TRIMMER TROPONIN T HIGH-SENSITIVITY 2-HOUR Timed 08/15/2024 10:37 AM DIE TRIMMER EGFR STAT 08/15/2024 9:00 AM DIE TRIMMER APTT STAT 08/15/2024 9:00 AM DIE TRIMMER PROTIME-INR STAT 08/15/2024 9:00 AM DIE TRIMMER DIFFERENTIAL AUTO STAT 08/15/2024 9:0 0 AM DIE TRIMMER TROPONIN T HIGH-SENSITIVITY SERIES (BASELINE, 2HR, 4HR, 6HR) STAT 08/15/2024 9:00 AM DIE TRIMMER CBC WITH AUTO DIFFERENTIAL STAT 08/15/2024 9:00 AM DIE TRIMMER COMPREHENSIVE METABOLIC PANEL STAT 08/15/2024 9:00 AM DIE TRIMMER INFLUENZA A/B, RSV, AND COVID-19 PCR STAT 08/15/2024 9:00 AM DIE TRIMMER XR CHEST PA LATERAL 2 VIEWS ED 08/15/2024 8:49 AM DIE TRIMMER ECG 12-LEAD STAT 08/15/2024 8:26 AM DIE TRIMMER COLONOSCOPY 07/16/2017 7:32 AM DIE TRIMMER from Last 3 Months or Most Recently [...] PM CDT) Anatomical Region Laterality Modality Other Result Blanca Linda Dang MD CV CARDIAC SERVICES PRO CEDURES Final Result * Cardiology Document Scan (08/24/2024 12:54 PM CDT) Anatomical Region Laterality Modality Other Linda Dang MD CV CARDIAC SERVICES PRO CEDURES Final Result * Cardiology Document Scan (08/23/2024 8:37 AM CDT) Anatomical Region Laterality Modality Other Linda [...] LAB BLOOD ORDERABLES Final Result [facility] ([employer]) 1 [facility] [place] [address] * (ABNORMAL) Pro B-type natriuretic peptide (08/22/2024 [...] STORM LAB BLOOD ORDERABLES Final Resu lt Performing Organization Address City/[facility]/ZIP Co de Phone Number [facility] ([place]) 1 [facility] [place] [address] * (ABNORMAL) CBC with auto differential (08/22/2024 [...] BLOOD ORDERABLES Final Result Performing Organization Address City/[facility]/ZIP Co de Phone Number [facility] ([place]) 1 [facility] [place] [address] * (ABNORMAL) Manual Differential (08/22/2024 5:36 PM [...] ORDERABLES Final Result [facility] ([place]) 1 [facility] Department of Laboratories [place], [place] [id number] * Lipase (08/22/2024 5:36 PM CDT) Lipase 95 10 - 99 Units/L Blood Venous blood specimen / Unknown 08/22/2024 5:36 PM CDT 08/22/2024 5:40 PM CDT us Timo Holder MD LAB BLOOD ORDERABLES Final Result [facility] ([place]) 1 [facility] [place] [address] * Comprehensive metabolic panel (08/22/2024 5:36 PM [...] BLOOD ORDERABLES Final Result Performing Organization Address [facility] Co de Phone Number [facility] ([place] [employer] [place]) 1 [facility] [place] [address] * (ABNORMAL) Troponin T high-sensitivity 2-hour (08/15/2024 11:29 AM DIE TRIMMER) Trop T hs 26(H) <=22 ng/L Comment: Interpretive Data For further hscTnT resources including the diagnostic algorithm and an aid in interpretation, copy and paste this link: https://nrl.testcatalog.org/show/hsTrop Current Interpretive Data last revised 2020. Trop T hs delta See Comment ng/L CE ARNIE [facility] ([employer]) Comment:unable to calculate Trop T hs pct delta See Comment % [facility] ([employer]) Comment:unable to calculate Trop T hs interp See Comment C ERNZULLY [facility]DA ([employer]) Comment:unable to calculate Blood 08/15/2024 11:2 9 AM DIE TRIMMER 08/15/2024 11:31 AM DIE TRIMMER Gayla Malcolm MD LAB BLOOD ORDERABLES Alanna l Result Performing Organization Address [facility] Co de Phone Number [facility] ([place] [place]) 1 [facility] [place] [address] * Urinalysis reflex to microscopic and culture Urine (08/15/2024 11:29 AM DIE TRIMMER) Color, ur Straw Yellow Clarity, ur Clear Clear [facility] ([employer]) Specific gravity, ur 1.008 1.003 - 1.030 [facility] ([employer]) pH, urine 6.5 [facility] ([employer]) Comment: Interpretive Data U rine pH is affected by diet, medications, systemic acid-base disturbances, and renal tubular function. pH may affect urinary stone formation. For example, urine pH below 6.0 may help reduce the tendency for calcium phosphate stones and pH greater than 6.0 may reduce the tendency for uric acid stone formation. Source: [facility] Current Interpretive Data was last revised [...] [facility]DA ([place]) Urine 08/15/2024 11:2 9 AM DIE TRIMMER 08/15/2024 11:31 AM DIE TRIMMER Gayla Malcolm MD LAB MICROBIOLOGY - GENERA L ORDERABLES Final Result Performing Organization Address City/[facility] Co de Phone Number [facility] MADDI ([place]) 1 [facility] Department [place] [address] * (ABNORMAL) Troponin T high-sensitivity 2-hour (08/15/2024 10:37 AM DIE TRIMMER) Trop T hs 26(H) <=22 ng/L Comment: Interpretive Data For further hscTnT resources including the diagnostic algorithm and an aid in interpretation, copy and paste this link: https://nrl.testcatalog.org/show/hsTrop Current Interpretive Data last revised 2020. Trop T hs interp See Comment C ELISA LINDA ([place]) Comment:Delta calculation an d interpretation not available. Blood 08/15/2024 10:3 7 AM DIE TRIMMER 08/15/2024 10:38 AM DIE TRIMMER Gayla Malcolm MD LAB BLOOD ORDERABLES Alanna l Result [facility] [place]) 1 [facility] [place] [address] * eGFR (08/15/2024 10:37 AM DIE TRIMMER) eGFR >90 >=60 mL/min/1. 73 m2 Comment: [...] reviewed 2021. Blood 08/15/2024 10:3 7 AM DIE TRIMMER 08/15/2024 10:39 AM DIE TRIMMER us Gayla Malcolm MD LAB BLOOD ORDERABLES Alanna l Result Performing Organization Address City/[facility]/ZIP Co de Phone Number [facility] ([place]) 1 [facility] [place] [address] * (ABNORMAL) Pro B-type natriuretic peptide (08/15/2024 10:37 AM DIE TRIMMER) NT-proBNP 4,819(H) <=450 pg/mL Comment: Interpretive Comments: [...] Date: 2018. Blood 08/15/2024 10:3 7 AM DIE TRIMMER 08/15/2024 10:39 AM DIE TRIMMER us Gayla Malcolm MD LAB BLOOD ORDERABLES Edit ed Result - Final [facility] ([employer]) 1 [facility] Department of Laboratories [place], [place] [id number] * (ABNORMAL) CBC without differential (08/15/2024 10:37 AM DIE TRIMMER) WBC 8.8 3.8 - 9.9 K/cumm Hgb [...] [facility] ([place]) Blood 08/15/2024 10:3 7 AM DIE TRIMMER 08/15/2024 10:38 AM DIE TRIMMER Narrative [facility] ([place]) - 08/15/2024 10:41 AM DIE TRIMMER Baseline prior to enoxaparin initiation. Gayla Malcolm MD LAB BLOOD ORDERABLES Alanna l Result Performing Organization Address City/[facility]/ZIP Co de Phone Number [facility] ([place]) 1 [facility] [place] [address] * (ABNORMAL) Creatinine (08/15/2024 10:37 AM DIE TRIMMER) Creatinine 0.72(L) 0.80 - 1.30 mg/dL Blood 08/15/2024 10:3 7 AM DIE TRIMMER 08/15/2024 10:39 AM DIE TRIMMER Narrative [facility] ([place]) - 08/15/2024 11:27 AM DIE TRIMMER Baseline prior to enoxaparin initiation. Gayla Malcolm MD LAB BLOOD ORDERABLES Alanna l Result [facility] ([employer]) 1 [facility] [place] [address] * Hepatic function panel (08/15/2024 10:37 AM DIE TRIMMER) Bilirubin, total 0.3 0.1 - 1.2 mg/dL [...] [facility] ([place]) Blood 08/15/2024 10:3 7 AM DIE TRIMMER 08/15/2024 10:39 AM DIE TRIMMER Gayla Malcolm MD LAB BLOOD ORDERABLES Alanna l Result Performing Organization Address City/[facility] Co de Phone Number [facility] ([place]) [address] [place] [address] [place] [address] * (ABNORMAL) Troponin T high-sensitivity series (baseline, 2hr, 4hr, 6hr) (08/15/2024 9:00 AM DIE TRIMMER) Pathologist [facility] Trop T hs 23(H) <=22 ng/L Comment: Interpretive Data For further hscTnT resources including the diagnostic algorithm and an aid in interpretation, copy and paste this link: https://nrl.testcatalog.org/show/hsTrop Current Interpretive Data last revised 2020. Testing performed by: [facility], [address] [place] [address]., [address] Blood 08/15/2024 9:00 AM DIE TRIMMER 08/15/2024 9:06 AM DIE TRIMMER Gayla Malcolm MD LAB BLOOD ORDERABLES Alanna l Result Performing Organization Address City/[facility]/ZIP Co de Phone Number [facility] ([place]) [address] [place] [address] [place] [address] * Influenza A/B, RSV, and COVID-19 PCR Nasopharyngeal (08/15/2024 9:00 AM DIE TRIMMER) [facility] COVID-19 RNA Negative Negative Influenza A RNA Negative Negative [facility] ([place]) Influenza B RNA Negative Negative [facility] ([place]) RSV RNA Negative Negative [facility] ([place]) Comment: Interpretive data: Testing performed by [facility]. This test is performed using the [employer] Xpert Xpress CoV-2/Flu/RSV plus assay. This is a multiplex, real- time reverse transcriptase PCR assay intended for the qualitative detection of nucleic acid from SARS-CoV-2, influenza A, influenza B, and respiratory syncytial virus. This assay has been cleared by the [place] Food and Drug administration. The performance characteristics have been verified by the [facility]. Results must be considered in the clinical context, and a negative result does not rule out infection. Interpretive Data last revised 2023 Nasopharyngeal 08/15/2024 9: 00 AM DIE TRIMMER 08/15/2024 9:06 AM DIE TRIMMER Narrative [facility] ([place]) - 08/15/2024 9:50 AM DIE TRIMMER Is the Patient experiencing symptoms consistent with COVID?->Yes Gayla Malcolm MD LAB MICROBIOLOGY - GENERA L ORDERABLES Final Result [facility] ([employer]) 1 [facility] Department [place] [address] * eGFR (08/15/2024 9:00 AM DIE TRIMMER) eGFR >90 >=60 mL/min/1. 73 m2 Comment: [...] reviewed 2021. Testing performed by: [facility], [address] [place] [address], [place]., [address] Blood 08/15/2024 9:00 AM DIE TRIMMER 08/15/2024 10:54 AM DIE TRIMMER Gayla Malcolm MD LAB BLOOD ORDERABLES Alanna grimaldo Result [facility] ([place]) 1 [facility] Department [place] [address] * Differential, auto (08/15/2024 9:00 AM DIE TRIMMER) Neutrophil abs 4.5 1.5 - 6.5 K/cumm [...] revised on 2017. Blood 08/15/2024 9:00 AM DIE TRIMMER 08/15/2024 9:06 AM DIE TRIMMER Gayla Malcolm MD LAB BLOOD ORDERABLES Alanna l Result [facility] ([place]) 1 [facility] Department [place] [address] * (ABNORMAL) CBC with auto differential (08/15/2024 9:00 AM DIE TRIMMER) WBC 8.1 3.8 - 9.9 K/cumm Hgb [...] 47.2 35.7 - 48.1 fL [facility] ([employer]) NRBC abs 0.00 0.00 - 0.01 K/cumm [facility] ([employer]) Blood 08/15/2024 9:00 AM DIE TRIMMER 08/15/2024 9:06 AM DIE TRIMMER Gayla Malcolm MD LAB BLOOD ORDERABLES Alanna l Result Performing Organization Address [facility] Co de Phone Number [facility] ([employer]) 1 [facility] [place] [address] * aPTT (08/15/2024 9:00 AM DIE TRIMMER) aPTT 36 28 - 38 sec [facility] ([employer]) Comment: Interpretive Data Heparin therapeutic range: 66.0 - 100.0 seconds. Range based on correlation with therapeutic heparin activity range of 0.3 - 0.7 Units/mL. Current interpretive data was last revised on 2023. Blood 08/15/2024 9:00 AM DIE TRIMMER 08/15/2024 10:24 AM DIE TRIMMER Narrative [facility] ([employer]) - 08/15/2024 10:31 AM DIE TRIMMER Baseline prior to enoxaparin initiation. Gayla Malcolm MD LAB BLOOD ORDERABLES Alanna l Result Performing Organization Address [facility] Co de Phone Number [facility] ([employer]) 1 [facility] [place] [address] * Protime-INR (08/15/2024 9:00 AM DIE TRIMMER) PT 12.8 9.7 - 13.0 sec [facility] ([employer]) INR 1.18 0.90 - 1.20 [facility] ([employer]) Comment: Interpretive data Oral anticoagulant therapeutic ranges: Venous thromboembolism prophylaxis or treatment: 2.0-3.0 CARDIOLOGY Standard range: 2.0-3.0 High-intensity range: 2.5-3.5 Refer to indication-specific guidelines for appropriate target ranges for prosthetic heart valve replacement. Current interpretive data was last revised on 2019. Blood 08/15/2024 9:00 AM DIE TRIMMER 08/15/2024 10:24 AM DIE TRIMMER Narrative [facility] ([place]) - 08/15/2024 10:31 AM DIE TRIMMER Baseline prior to enoxaparin initiation. Gayla Malcolm MD LAB BLOOD ORDERABLES Alanna dillan Result [facility] ([place]) 1 [facility] [place] [address] * (ABNORMAL) Comprehensive metabolic panel (08/15/2024 9:00 AM DIE TRIMMER) Sodium 146(H) 135 - 145 mmol/L Comment:Testing performed by : [address] [address] Potassium, pl 4.5 3.3 - 4.9 mmol/L [facility] ([place]) Comment:Testing performed by : [address], [address] Chloride 108 97 - 110 mmol/L [facility] ([place]) Comment:Testing performed by : [address], [address] CO2 27 22 - 32 mmol/L [facility] ([place]) Comment:Testing performed by : [address] [address] Anion gap 11 2 - 15 mmol/L [facility] ([place]) Comment:Testing performed by : [address], [address] BUN 14 6 - 25 mg/dL [facility] ([place]) Comment:Testing performed by : [address], [address] Creatinine 0.77(L) 0.80 - 1.30 mg/dL [facility] ([place]) Comment:Testing performed by : [address], [address] Glucose 98 70 - 199 mg/dL [facility] [...] was last revised 2022. Testing performed by: [facility], [address] [place] [address]., [address] Calcium 8.8 8.5 - 10.3 mg/dL [facility] ([place]) Comment:Testing performed by : [address], [address] Bilirubin, total 0.3 0.1 - 1.2 mg/dL [facility] ([place]) Comment:Testing performed by : [address], [address] Protein, pl 7.2 6.5 - 8.5 g/dL [facility] ([place]) Comment:Testing performed by : [address], [address] Albumin 3.8 3.5 - 5.0 g/dL [facility] ([place]) Comment:Testing performed by : [address] [address] Alk phos 71 40 - 130 Units/L [facility] ([place]) Comment:Testing performed by : [address], [address] ALT 17 7 - 55 Units/L [facility] ([place]) Comment:Testing performed by : [address], [address] AST 32 10 - 50 Units/L [facility] ([place]) Comment:Testing performed by : [address], [address] Blood 08/15/2024 9:00 AM DIE TRIMMER 08/15/2024 9:06 AM DIE TRIMMER Gayla Malcolm MD LAB BLOOD ORDERABLES Alanna grimaldo Result [facility] [place] 1 [facility] [place] [address] * XR Chest PA Lateral 2 Views (08/15/2024 8:49 AM DIE TRIMMER) Anatomical Region Laterality Modality Body, Chest N/A Computed Radiogr aphy 08/15/2024 9:00 AM DIE TRIMMER Narrative 08/15/2024 9:01 AM DIE TRIMMER EXAM DESCRIPTION: XR CHEST PA LATERAL 2 [...] Amari Roberts M.D. MM: MM Report ID: [id number] Reading Location: [id number] Procedure Note Amari Roberts MD - 08/15/2024 [...] Amari Roberts M.D. MM: MM Report ID: [id number] Reading Location: [place] [address] Gayla Malcolm MD IMG XR PROCEDURES Final R esult * COLONOSCOPY (07/16/2017 7:32 AM DIE TRIMMER) Anatomical Region Laterality Modality Other Narrative Procedure Note Michael Bran MD - 07/16/2017 7:32 AM CST [facility] Patient Name: Js Contreras Procedure Date: 07/16/2017 7:32 AM Date of : 1950 Admit Type: Outpatient Age: 67 Gender: Male Attending MD: Michael Gonzalez M.D. Room: [facility] ENDOSCOPY ROOM 2 Note Status: Finalized [...] scope was passed under direct vision.The Colonoscope [id number] was introducedthrough the anus and advanced to [...] 7:32 AM Procedure Code(s): --- Professional --- 13988, Colonoscopy, flexible; with removal of tumor(s), polyp(s), or other lesion(s) by snare technique Diagnosis Code(s): --- Professional --- Z86.010, Personal history of colonic polyps K64.8, Other hemorrhoids D12.5, Benign neoplasm of sigmoid colon K57.30, Diverticulosis of large intestine without perforation orabscess without bleeding CPT copyright 2014 [employer]. All rights reserved. The codes documented in this report are preliminary and upon naturopathic oncology provider reviewmay be revised to meet current compliance requirements. Recognized by the [employer] for promoting quality in endoscopy Michael Shaw MD ENDOSCOPY PROCEDUR ES Final Result from Last 3 Months or Most Recently Relevant to Health Maintenance Insurance [employer] CHOICE MEDICARE PPO Member Subscriber Plan / Payer (Ef fective 2017-Present) Name:Js Contreras Relation to Subscriber:Self Name:Js Contreras Payer ID:[id number] (NAIC) Type:MEDICARE RISK OTHER Address: [address] MEDICARE [facility] MEDICARE GENERIC RISK OTHER [employer] CHOICE MEDICARE PPO MEDICARE [facility] CARE AETNA MEDICARE GOLD [facility] CARE UHC MEDICARE ADVANTAGE Care Teams Emergency Room Rn Relationship Specialty Start Date End Date Unknown, Notinfile PCP - General 07/09/23
--- OUTSIDE RECORDS SUMMARY | 2024-10-17 14:35 | XMS_ITS | Clinical Summary ---
Author Organization [facility] Address [address] [place] [address] Phone Care Team Providers Care Wood Molder Name Role Phone Chris Tolentino MD Unavailable [...] Covid-19 Vaccine, Vector-nr, Rs-ad26, Pf, 0.5 Ml ([employer]™) 08/23/2020 Hepatitis A And Hepatitis B Vaccine [...] topic Insurance MEDICARE C [employer] Care Teams Wood Molder Relationship Specialty Start Date End Date Provider, None [place] PCP - General 05/10/21 Chris Toelntino MD Consulting Physician Orthopaedic Sports Medicine 04/07/18 Terra Pineda MD [address] [address] Consulting Physician Internal Medicine 04/07/18
--- OUTSIDE RECORDS SUMMARY | 2024-10-17 14:35 | XMS_ITS | Referral Summary ---
Author Organization [facility] Address [address] [place] [address] Care Team Providers Care Delivery Aide Name Role Phone Unknown, Notinfile Primary Care Provider Unavail able Encounters Date Type Department Care Team Description 09/07/2024 Orders Only [facility] Medical Group Cardiology [address] [facility] [address] [place] [phone] Linda Dang MD 09/06/2024 Telephone [facility] Accountable Care Organization [address] [place] [phone] Caitlin Queen MA Unsuccessful Phone Call 1 ([employer] AWV) 08/31/2024 Orders Only [facility] Medical Group Cardiology [address] [facility] [address] [place] [phone] Linda Dang MD 08/30/2024 Orders Only [facility] Medical [facility] Cardiology [address] [facility] [address] [place] [phone] Linda Dang MD 08/22/2024 5:19 PM CDT - 08/22/2024 8:28 PM CDT Emergency [facility] Emergency Department [address] [place] [address] Discharge Disposition: Left without being seen 08/15/2024 8:47 AM ASSEMBLER DIELECTRIC HEATER - 08/15/2024 3:05 PM ASSEMBLER DIELECTRIC HEATER Emergency [facility] Emergency Department [address] [place] [address] Gayla Malcolm MD Atrial fibrillation with controlled ventricular rate (HCC) (Primary Dx); Acute on chronic combined systolic and diastolic congestive heart failure (HCC) Discharge Disposition: Discharge to home or self care from Last 3 Months Allergies No known [...] needed Assessment & Plan (07/23/2018 12:58 PM ASSEMBLER DIELECTRIC HEATER): Reports compliance with wound care/splinting/hand therapy Healing [...] on file Legal Sex Male 1:47 AM ASSEMBLER DIELECTRIC HEATER Gender Identity Not on file Sexual Orientation [...] on file Medical Devices Implanted Type Area Tar Roofer Device Identifier Shelf Expiration Date Model / Serial / Lot [employer] 8600-5x05 Graftjacket [id number] Regenerative Nonmesh Standard Graft - [id number] Implanted:Qty: 1 on 07/06/2018 by Kirby Rm III, MD at [facility] Left: Wrist [employer] 01/13/2020 [id number] / / [id number] Procedures Procedure Name Priority Date/Time Associated [...] T HIGH-SENSITIVITY 2-HOUR Timed 08/15/2024 11:29 AM ASSEMBLER DIELECTRIC HEATER URINALYSIS AND REFLEX TO MICROSCOPIC AND CULTURE STAT 08/15/2024 11:29 AM ASSEMBLER DIELECTRIC HEATER EGFR STAT 08/15/2024 10:37 AM ASSEMBLER DIELECTRIC HEATER HEPATIC FUNCTION PANEL STAT 10:37 AM ASSEMBLER DIELECTRIC HEATER PRO B-TYPE NATRIURETIC PEPTIDE Add-On 08/15/2024 10:37 AM ASSEMBLER DIELECTRIC HEATER CREATININE STAT 08/15/2024 10:37 AM ASSEMBLER DIELECTRIC HEATER CBC WITHOUT DIFFERENTIAL STAT 08/15/2024 10:37 AM ASSEMBLER DIELECTRIC HEATER TROPONIN T HIGH-SENSITIVITY 2-HOUR Timed 08/15/2024 10:37 AM ASSEMBLER DIELECTRIC HEATER EGFR STAT 08/15/2024 9:00 AM ASSEMBLER DIELECTRIC HEATER APTT STAT 08/15/2024 9:00 AM ASSEMBLER DIELECTRIC HEATER PROTIME-INR STAT 08/15/2024 9:00 AM ASSEMBLER DIELECTRIC HEATER DIFFERENTIAL AUTO STAT 08/15/2024 9:0 0 AM ASSEMBLER DIELECTRIC HEATER TROPONIN T HIGH-SENSITIVITY SERIES (BASELINE, 2HR, 4HR, 6HR) STAT 08/15/2024 9:00 AM ASSEMBLER DIELECTRIC HEATER CBC WITH AUTO DIFFERENTIAL STAT 08/15/2024 9:00 AM ASSEMBLER DIELECTRIC HEATER COMPREHENSIVE METABOLIC PANEL STAT 08/15/2024 9:00 AM ASSEMBLER DIELECTRIC HEATER INFLUENZA A/B, RSV, AND COVID-19 PCR STAT 08/15/2024 9:00 AM ASSEMBLER DIELECTRIC HEATER XR CHEST PA LATERAL 2 VIEWS ED 08/15/2024 8:49 AM ASSEMBLER DIELECTRIC HEATER ECG 12-LEAD STAT 08/15/2024 8:26 AM ASSEMBLER DIELECTRIC HEATER COLONOSCOPY 07/16/2017 7:32 AM ASSEMBLER DIELECTRIC HEATER from Last 3 Months or Most Recently [...] MD LAB BLOOD ORDERABLES Final Result [facility] ([place]) 1 [facility] Department of Laboratories [place], [place] [id number] * (ABNORMAL) Pro B-type natriuretic peptide (08/22/2024 [...] LAB BLOOD ORDERABLES Final Resu lt [facility] ([place]) 1 [facility] Department [place] [address] * (ABNORMAL) CBC with auto differential (08/22/2024 [...] ORDERABLES Final Result [facility] ([place]) 1 [facility] Department [place] [address] * (ABNORMAL) Manual Differential (08/22/2024 5:36 PM [...] ORDERABLES Final Result [facility] ([place]) 1 [facility] [place] [address] * Lipase (08/22/2024 5:36 PM CDT) Lipase 95 10 - 99 Units/L Blood Venous blood specimen / Unknown 08/22/2024 5:36 PM CDT 08/22/2024 5:40 PM CDT Timo Holder MD LAB BLOOD ORDERABLES Final Result Performing Organization Address City/[facility]/ZIP Co de Phone Number [facility] ([place]) 1 [facility] [place] [address] * Comprehensive metabolic panel (08/22/2024 5:36 PM CDT) Sodium 141 135 - 145 mmol/L Potassium, pl 4.6 3.3 - 4.9 mmol/L [facility] ([place]) Chloride 99 97 - 110 mmol/L [facility] CO2 31 22 - 32 mmol/L [facility] [place]) Anion gap 11 2 - 15 mmol/L [facility] BUN 19 6 - 25 mg/dL [facility] Creatinine 0.82 0.80 - 1.30 mg/dL [facility] ([place]) Glucose 98 70 - 199 mg/dL [facility] ([place]) Comment: Interpretive Data Fasting glucose [...] ORDERABLES Final Result Performing Organization Address [facility] Co de Phone Number [facility] ([place]) 1 [facility] [place] [address] * (ABNORMAL) Troponin T high-sensitivity 2-hour (08/15/2024 11:29 AM ASSEMBLER DIELECTRIC HEATER) Trop T hs 26(H) <=22 ng/L Comment: [...] to calculate Blood 08/15/2024 11:2 9 AM ASSEMBLER DIELECTRIC HEATER 08/15/2024 11:31 AM ASSEMBLER DIELECTRIC HEATER us Gayla Malcolm MD LAB BLOOD ORDERABLES Alanna l Result Performing Organization Address [facility]/ZIP Co de Phone Number [facility] ([place]) 1 [facility] [place] [address] * Urinalysis reflex to microscopic and culture Urine (08/15/2024 11:29 AM ASSEMBLER DIELECTRIC HEATER) Color, ur Straw Yellow Clarity, ur Clear [...] tendency for uric acid stone formation. Source: [facility] m2p-labs Current Interpretive Data was last revised on [...] [facility] ([place]) Urine 08/15/2024 11:2 9 AM ASSEMBLER DIELECTRIC HEATER 08/15/2024 11:31 AM ASSEMBLER DIELECTRIC HEATER us Gayla Malcolm MD LAB MICROBIOLOGY - GENERA L ORDERABLES Final Result [facility] ([place] 1 [facility] Department [place] [address] * (ABNORMAL) Troponin T high-sensitivity 2-hour (08/15/2024 10:37 AM ASSEMBLER DIELECTRIC HEATER) Trop T hs 26(H) <=22 ng/L Comment: Interpretive Data For further hscTnT resources including the diagnostic algorithm and an aid in interpretation, copy and paste this link: https://nrl.testcatalog.org/show/hsTrop Current Interpretive Data last revised 2020. Trop T hs interp See Comment C ELISA [facility] ([place]) Comment:Delta calculation an d interpretation not available. Blood 08/15/2024 10:3 7 AM ASSEMBLER DIELECTRIC HEATER 08/15/2024 10:38 AM ASSEMBLER DIELECTRIC HEATER Gayla Malcolm MD LAB BLOOD ORDERABLES Alanna l Result Performing Organization Address City/[facility] Co de Phone Number [facility] ([place]) 1 [facility] [place] [address] * eGFR (08/15/2024 10:37 AM ASSEMBLER DIELECTRIC HEATER) eGFR >90 >=60 mL/min/1. 73 m2 Comment: [...] reviewed 2021. Blood 08/15/2024 10:3 7 AM ASSEMBLER DIELECTRIC HEATER 08/15/2024 10:39 AM ASSEMBLER DIELECTRIC HEATER Gayla Malcolm MD LAB BLOOD ORDERABLES Alanna l Result Performing Organization Address [facility]/ZIP Co de Phone Number [facility] ([place]) 1 [facility] [place] [address] * (ABNORMAL) Pro B-type natriuretic peptide (08/15/2024 10:37 AM ASSEMBLER DIELECTRIC HEATER) NT-proBNP 4,819(H) <=450 pg/mL Comment: Interpretive Comments: [...] Date: 2018. Blood 08/15/2024 10:3 7 AM ASSEMBLER DIELECTRIC HEATER 08/15/2024 10:39 AM ASSEMBLER DIELECTRIC HEATER us Gayla Malcolm MD LAB BLOOD ORDERABLES Edit ed Result - Final [facility] [place]) 8 [facility] Department [place] [address] * (ABNORMAL) CBC without differential (08/15/2024 10:37 AM ASSEMBLER DIELECTRIC HEATER) WBC 8.8 3.8 - 9.9 K/cumm Hgb [...] [facility] ([place]) Blood 08/15/2024 10:3 7 AM ASSEMBLER DIELECTRIC HEATER 08/15/2024 10:38 AM ASSEMBLER DIELECTRIC HEATER Narrative [facility] ([place]) - 08/15/2024 10:41 AM ASSEMBLER DIELECTRIC HEATER Baseline prior to enoxaparin initiation. Gayla Malcolm MD LAB BLOOD ORDERABLES Alanna l Result [facility] ([place]) 1 [facility] Department [place] [address] * (ABNORMAL) Creatinine (08/15/2024 10:37 AM ASSEMBLER DIELECTRIC HEATER) Creatinine 0.72(L) 0.80 - 1.30 mg/dL Blood 08/15/2024 10:3 7 AM ASSEMBLER DIELECTRIC HEATER 08/15/2024 10:39 AM ASSEMBLER DIELECTRIC HEATER Narrative [facility] ([place] - 08/15/2024 11:27 AM ASSEMBLER DIELECTRIC HEATER Baseline prior to enoxaparin initiation. Gayla Malcolm MD LAB BLOOD ORDERABLES Alanna l Result Performing Organization Address City/[facility]/ZIP Co de Phone Number [facility] ([place]) 1 [place] [address] * Hepatic function panel (08/15/2024 10:37 AM ASSEMBLER DIELECTRIC HEATER) Bilirubin, total 0.3 0.1 - 1.2 mg/dL Bilirubin, direct 0.1 0.1 - 0.3 mg/dL [facility] ([place]) Protein, pl 6.9 6.5 - 8.5 g/dL [facility] ([place]) Albumin 3.8 3.5 - 5.0 g/dL [facility] ([place]) Alk phos 69 40 - 130 Units/L [facility] [place]) ALT 14 7 - 55 Units/L [facility] AST 21 10 - 50 Units/L [facility] ([place]) Blood 08/15/2024 10:3 7 AM ASSEMBLER DIELECTRIC HEATER 08/15/2024 10:39 AM ASSEMBLER DIELECTRIC HEATER Gayla Malcolm MD LAB BLOOD ORDERABLES Alanna l Result Performing Organization Address [facility] Co de Phone Number [facility] ([place]) 1 [place] [address] * (ABNORMAL) Troponin T high-sensitivity series (baseline, 2hr, 4hr, 6hr) (08/15/2024 9:00 AM ASSEMBLER DIELECTRIC HEATER) Pathologist [facility] Trop T hs 23(H) <=22 ng/L Comment: Interpretive Data For further hscTnT resources including the diagnostic algorithm and an aid in interpretation, copy and paste this link: https://nrl.testcatalog.org/show/hsTrop Current Interpretive Data last revised 2020. Testing performed by: [facility], [address] [place] [address], [place]., [address] Blood 08/15/2024 9:00 AM ASSEMBLER DIELECTRIC HEATER 08/15/2024 9:06 AM ASSEMBLER DIELECTRIC HEATER Gayla Malcolm MD LAB BLOOD ORDERABLES Alanna l Result [facility] [place] 1 [facility] [place] [address] * Influenza A/B, RSV, and COVID-19 PCR Nasopharyngeal (08/15/2024 9:00 AM ASSEMBLER DIELECTRIC HEATER) Pathologist [facility] COVID-19 RNA Negative Negative Influenza A RNA Negative Negative [facility] ([place]) Influenza B RNA Negative Negative [facility] ([place]) RSV RNA Negative Negative [facility] ([place]) Comment: Interpretive data: Testing performed by [facility]. This test is performed using the [employer] Xpert Xpress CoV-2/Flu/RSV plus assay. This is a multiplex, real- time reverse transcriptase PCR assay intended for the qualitative detection of nucleic acid from SARS-CoV-2, influenza A, influenza B, and respiratory syncytial virus. This assay has been cleared by the [place] Food and Drug administration. The performance characteristics have been verified by the [facility]. Results must be considered in the clinical context, and a negative result does not rule out infection. Interpretive Data last revised 2023 Nasopharyngeal 08/15/2024 9: 00 AM ASSEMBLER DIELECTRIC HEATER 08/15/2024 9:06 AM ASSEMBLER DIELECTRIC HEATER Narrative [facility] ([place]) - 08/15/2024 9:50 AM ASSEMBLER DIELECTRIC HEATER Is the Patient experiencing symptoms consistent with COVID?->Yes Gayla Malcolm MD LAB MICROBIOLOGY - GENERA L ORDERABLES Final Result [facility] ([place]) 1 [facility] [place] [address] * eGFR (08/15/2024 9:00 AM ASSEMBLER DIELECTRIC HEATER) [facility] eGFR >90 >=60 mL/min/1. 73 m2 [...] was last reviewed 2021. Testing performed by: [facility], [address] [place] [address], [place]., [address] Blood 08/15/2024 9:00 AM ASSEMBLER DIELECTRIC HEATER 08/15/2024 10:54 AM ASSEMBLER DIELECTRIC HEATER Gayla Malcolm MD LAB BLOOD ORDERABLES Alanna grimaldo Result [facility] ([place] 1 [facility] Department [place] [address] * Differential, auto (08/15/2024 9:00 AM ASSEMBLER DIELECTRIC HEATER) Neutrophil abs 4.5 1.5 - 6.5 K/cumm [...] revised on 2017. Blood 08/15/2024 9:00 AM ASSEMBLER DIELECTRIC HEATER 08/15/2024 9:06 AM ASSEMBLER DIELECTRIC HEATER us Gayla Malcolm MD LAB BLOOD ORDERABLES Alanna grimaldo Result [facility] ([place]) 1 [facility] Department [place] [address] * (ABNORMAL) CBC with auto differential (08/15/2024 9:00 AM ASSEMBLER DIELECTRIC HEATER) WBC 8.1 3.8 - 9.9 K/cumm Hgb [...] - 33.3 pg [facility] ([place]) MCHC 30.7(L) 32.3 - 35.7 g/dL [facility] ([place]) RDW CV 14.1 11.1 - 14.9 % [facility] ([place]) RDW SD 47.2 35.7 - 48.1 fL [facility] ([place]) NRBC abs 0.00 0.00 - 0.01 K/cumm [facility] ([place]) Blood 08/15/2024 9:00 AM ASSEMBLER DIELECTRIC HEATER 08/15/2024 9:06 AM ASSEMBLER DIELECTRIC HEATER Gayla Malcolm MD LAB BLOOD ORDERABLES Alanna l Result Performing Organization Address [facility] Co de Phone Number [facility] ([place]) 1 [facility] [place] [address] * aPTT (08/15/2024 9:00 AM ASSEMBLER DIELECTRIC HEATER) aPTT 36 28 - 38 sec [facility] ([place]) Comment: Interpretive Data Heparin therapeutic range: 66.0 - 100.0 seconds. Range based on correlation with therapeutic heparin activity range of 0.3 - 0.7 Units/mL. Current interpretive data was last revised on 2023. Blood 08/15/2024 9:00 AM ASSEMBLER DIELECTRIC HEATER 08/15/2024 10:24 AM ASSEMBLER DIELECTRIC HEATER Narrative [facility] ([place]) - 08/15/2024 10:31 AM ASSEMBLER DIELECTRIC HEATER Baseline prior to enoxaparin initiation. Gayla Malcolm MD LAB BLOOD ORDERABLES Alanna l Result Performing Organization Address City/[facility]/ZIP Co de Phone Number [facility] ([place]) 1 [facility] [place] [address] * Protime-INR (08/15/2024 9:00 AM ASSEMBLER DIELECTRIC HEATER) PT 12.8 9.7 - 13.0 sec [facility] ([place]) INR 1.18 0.90 - 1.20 [facility] ([place]) Comment: Interpretive data Oral anticoagulant therapeutic ranges: Venous thromboembolism prophylaxis or treatment: 2.0-3.0 CARDIOLOGY Standard range: 2.0-3.0 High-intensity range: 2.5-3.5 Refer to indication-specific guidelines for appropriate target ranges for prosthetic heart valve replacement. Current interpretive data was last revised on 2019. Blood 08/15/2024 9:00 AM ASSEMBLER DIELECTRIC HEATER 08/15/2024 10:24 AM ASSEMBLER DIELECTRIC HEATER Narrative [facility] ([place]) - 08/15/2024 10:31 AM ASSEMBLER DIELECTRIC HEATER Baseline prior to enoxaparin initiation. Gayla Malcolm MD LAB BLOOD ORDERABLES Alanna grimaldo Result [facility] ([place]) 1 [facility] Department [place] [address] * (ABNORMAL) Comprehensive metabolic panel (08/15/2024 9:00 AM ASSEMBLER DIELECTRIC HEATER) Pathologist [facility] Sodium 146(H) 135 - 145 mmol/L Comment:Testing performed by : [address] [address] Potassium, pl 4.5 3.3 - 4.9 mmol/L [facility] ([place]) Comment:Testing performed by : [facility], [address] [place] [address]., [address] Chloride 108 97 - 110 mmol/L [facility] ([place]) Comment:Testing performed by : [address] [address] CO2 27 22 - 32 mmol/L [facility] ([place]) Comment:Testing performed by : [address], [address] Anion gap 11 2 - 15 mmol/L [facility] ([place]) Comment:Testing performed by : [address], [address] BUN 14 6 - 25 mg/dL [facility] ([place]) Comment:Testing performed by : [address] [address] Creatinine 0.77(L) 0.80 - 1.30 mg/dL [facility] ([place]) Comment:Testing performed by : [address], [address] Glucose 98 70 - 199 mg/dL [facility] [...] was last revised 2022. Testing performed by: [address], [address] Calcium 8.8 8.5 - 10.3 mg/dL [facility] ([place]) Comment:Testing performed by : [address], [address] Bilirubin, total 0.3 0.1 - 1.2 mg/dL [facility] ([place]) Comment:Testing performed by : [address], [address] Protein, pl 7.2 6.5 - 8.5 g/dL [facility] ([place]) Comment:Testing performed by : [address], [address] Albumin 3.8 3.5 - 5.0 g/dL [facility] ([place]) Comment:Testing performed by : [address], [address] Alk phos 71 40 - 130 Units/L [facility] ([place]) Comment:Testing performed by : [address], [address] ALT 17 7 - 55 Units/L [facility] ([place]) Comment:Testing performed by : [address] [place] [address] AST 32 10 - 50 Units/L [facility] ([place]) Comment:Testing performed by : [facility], [address] [place] [address]., [address] Blood 08/15/2024 9:00 AM ASSEMBLER DIELECTRIC HEATER 08/15/2024 9:06 AM ASSEMBLER DIELECTRIC HEATER Gayla Malcolm MD LAB BLOOD ORDERABLES Alanna l Result [facility] ([place]) 1 [facility] Department [place] [address] * XR Chest PA Lateral 2 Views (08/15/2024 8:49 AM ASSEMBLER DIELECTRIC HEATER) Anatomical Region Laterality Modality Body, Chest N/A Computed Radiogr aphy 08/15/2024 9:00 AM ASSEMBLER DIELECTRIC HEATER Narrative 08/15/2024 9:01 AM ASSEMBLER DIELECTRIC HEATER EXAM DESCRIPTION: XR CHEST PA LATERAL 2 [...] Amari Roberts M.D. MM: MM Report ID: [id number] Reading Location: [id number] Procedure Note Amari Roberts MD - 08/15/2024 [...] Amari Roberts M.D. MM: MM Report ID: [id number] Reading Location: [place] [address] Gayla Malcolm MD IMG XR PROCEDURES Final R esult * COLONOSCOPY (07/16/2017 7:32 AM ASSEMBLER DIELECTRIC HEATER) Anatomical Region Laterality Modality Other Narrative Procedure Note Michael Bran MD - 07/16/2017 7:32 AM CST [facility] Patient Name: Js Contreras Procedure Date: 07/16/2017 7:32 AM Date of : 1950 Admit Type: Outpatient Age: 67 Gender: Male Attending MD: Michael Gonzalez M.D. Room: [facility] ENDOSCOPY ROOM 2 Note Status: Finalized Procedure: [...] scope was passed under direct vision.The Colonoscope [id number] was introducedthrough the anus and advanced to [...] 7:32 AM Procedure Code(s): --- Professional --- 52729, Colonoscopy, flexible; with removal of tumor(s), polyp(s), or other lesion(s) by snare technique Diagnosis Code(s): --- Professional --- Z86.010, Personal history of colonic polyps K64.8, Other hemorrhoids D12.5, Benign neoplasm of sigmoid colon K57.30, Diverticulosis of large intestine without perforation orabscess without bleeding CPT copyright 2014 [employer]. All rights reserved. The codes documented in this report are preliminary and upon logistics intern reviewmay be revised to meet current compliance requirements. Recognized by the [employer] for promoting quality in endoscopy Michael Shaw MD ENDOSCOPY PROCEDUR ES Final Result from Last 3 Months or Most Recently Relevant to Health Maintenance Insurance [employer] CHO[employer] MEDICARE PPO Member Subscriber Plan / Payer (Ef fective 2017-Present) Name:Js Contreras Relation to Subscriber:Self Name:Js Contreras Payer ID:[id number] (NAIC) Type:MEDICARE RISK OTHER Address: [address] MEDICARE [facility] MEDICARE GENERIC RISK OTHER [facility] CHOICE MEDICARE PPO MEDICARE FOR[facility]LY [facility] [employer] MEDICARE GOLD FORMERLY [facility] MEDICARE ADVANTAGE Care Teams Delivery Aide Relationship Specialty Start Date End Date Unknown, Notinfile PCP - General 07/09/23
[2024-10-17 14:37] VITALS: BP 152/97; PULSE 99; RESP 17; TEMP 36.6; O2SAT 94
--- NOTE | 2024-10-17 15:07 | ED_ITS ---
HPI - General Adult General Chief complaint: Unspecified <Mildred Lara PA-C - Last Filed: 10/19/24 09:17> Stated complaint: bilateral leg/ankle swelling <Mildred Lara PA-C - Last Filed: 10/19/24 09:17> Time Seen by Provider: 10/17/24 15:07 <Mildred Lara PA-C - Last Filed: 10/19/24 09:17> Focused HPI: This is a 74 year old male that presents to the ER for lower extremity edema. Reports shortness of breath. Reports a recent surgery. Denies chest pain. Does have history of CHF. Denies fever, cough. GENERAL: Well-appearing, well-nourished, and in no acute distress. HEAD: Normocephalic, atraumatic. CHEST: Clear to auscultation. ?No respiratory distress. HEART: Irregularly irregular NEURO: ?Alert and oriented x3. Patient screened in triage and initial orders placed.? ?Additional care and disposition to be based upon?diagnostic testing and treatment. <Mildred Lara PA-C - Last Filed: 10/19/24 09:17> History of Present Illness HPI narrative: No shortness of breath with exertion. Has been prescribed Toprol-XL as well as a 6. Patient reports he has not been taking them. He is unsure the last time he took any medication. No chest pain. Denies orthopnea. No productive cough. <Byron Faustin MD - Last Filed: 10/17/24 19:24> Related Data Home medications: Home Medications ?Medication ?Instructions ?Recorded ?Confirmed ?Last Taken ?Type aspirin 81 mg chewable tablet 81 mg PO DAILY 08/23/24 09/13/24 09/03/24 09:00 History cholecalciferol (vitamin D3) 50 2,000 unit PO DAILY 08/23/24 09/13/24 09/03/24 History mcg (2,000 unit) capsule <Mildred Lara PA-C - Last Filed: 10/19/24 09:17> Allergies/adverse reactions: Allergies Allergy/AdvReac Type Severity Reaction Status Date / Time No Known Drug Allergies Allergy Other Verified 10/17/24 13:58 <Mildred Lara PA-C - Last Filed: 10/19/24 09:17> Review of Systems 2 Review of Systems: All systems reviewed & are unremarkable except as noted in HPI and below <Byron Faustin MD - Last Filed: 10/17/24 19:24> ENT: Reports system reviewed and no additional complaints, except as documented <Byron Faustin MD - Last Filed: 10/17/24 19:24> Cardiovascular: Cardiovascular: Reports no additional cardiovascular complaints <Byron Faustin MD - Last Filed: 10/17/24 19:24> Respiratory: Respiratory: Reports no additional respiratory complaints < Byron Faustin MD - Last Filed: 10/17/24 19:24> Gastrointestinal: Gastrointestinal: Reports no additional gastrointestinal complaints <Byron Faustin MD - Last Filed: 10/17/24 19:24> Musculoskeletal: Musculoskeletal: Reports no additional musculoskeletal complaints <Byron Faustin MD - Last Filed: 10/17/24 19:24> [facility] Past Medical History Medical History: Medical History Hypertension Hyperlipidemia Vitamin D deficiency Substance abuse Atrial fibrillation Congestive heart failure <Mildred Lara PA-C - Last Filed: 10/19/24 09:17> Surgical History Surgical History: Surgical History History of umbilical hernia repair robotic assisted repair incarcerated umbilical hernia measuring 4.5 cm, myofascial release x2 H/O hemorrhoidectomy History of appendectomy History of carpal tunnel release <Mildred Lara PA-C - Last Filed: 10/19/24 09:17> Family History Family History: Family History Mother Parkinson disease Father Alcohol abuse <Mildred Lara PA-C - Last Filed: 10/19/24 09:17> Social History Social History: Social History Social History: Lives with grand daughter (13 year old) 1 dog Smoking status: Never smoker Alcohol intake: never Substance use: current Substance use type: marijuana and crack/cocaine Other substance usage details: once in while, last used 2 weeks ago Do You Feel Safe in your Home?: Yes Lack of Transportation: No Lack of Food: Never True Current Housing: I Have Housing Concerned About Future Housing: No Difficulty Paying Gas/Electric Bills: No Difficulty Paying for Meds: No Currently Unemployed: No Education: High School Diploma/GED Difficulty w/ Childcare or Family Care: No Spiritual care concerns: No <Mildred Lara PA-C - Last Filed: 10/19/24 09:17> Exam 2 Narrative: GENERAL: Well-appearing, well-nourished, and in no acute distress. HEAD: Normocephalic, atraumatic. ENT: Mucous membranes moist. NECK: Supple. CHEST: Clear to auscultation. No respiratory distress. HEART: Regular rate and rhythm. Normal peripheral pulses. ABDOMEN: Soft, nontender, nondistended. EXTREMITIES: Normal range of motion. +2 edema. SKIN: Warm, dry, no rash. NEURO: Alert and oriented x3. PSYCH: Normal mood and affect. <Byron Faustin MD - Last Filed: 10/17/24 19:24> Course Course Emergency Course: No DVT. Elevated BNP. Discussed is medication noncompliance. He reports he has the medication at home and even has refills. He is willing to restart them. When he ambulates he does become hypoxic but patient does not wish to stay in the hospital. I had a discussion with the patient as well as the patient's son and patient is comfortable with patient going home. Patient will restart his home medications and we have discussed strict return precautions. < Byron Faustin MD - Last Filed: 10/17/24 19:24> Vital Signs Vital signs: Vital Signs Temperature 97.8 F 10/17/24 14:37 Pulse Rate 99 10/17/24 14:37 Respiratory Rate 17 10/17/24 14:37 Blood Pressure 152/97 H 10/17/24 14:37 Pulse Oximetry 94 10/17/24 14:37 Oxygen Delivery Room Air 10/17/24 14:37 Temperature 97.8 F 10/17/24 14:37 Pulse Rate 98 10/17/24 16:42 Respiratory Rate 21 H 10/17/24 16:40 Blood Pressure 152/97 H 10/17/24 14:37 Pulse Oximetry 97 10/17/24 16:40 Oxygen Delivery Room Air 10/17/24 14:37 Fraction of Inspired Oxygen 97 10/17/24 16:38 <Mildred Lara PA-C - Last Filed: 10/19/24 09:17> Vital Signs Temperature 97.8 F 10/17/24 14:37 Pulse Rate 99 10/17/24 14:37 Respiratory Rate 17 10/17/24 14:37 Blood Pressure 152/97 H 10/17/24 14:37 Pulse Oximetry 94 10/17/24 14:37 Oxygen Delivery Room Air 10/17/24 14:37 Temperature 97.8 F 10/17/24 14:37 Pulse Rate 98 10/17/24 16:42 Respiratory Rate 21 H 10/17/24 16:40 Blood Pressure 152/97 H 10/17/24 14:37 Pulse Oximetry 97 10/17/24 16:40 Oxygen Delivery Room Air 10/17/24 14:37 Fraction of Inspired Oxygen 97 10/17/24 16:38 <Byron Faustin MD - Last Filed: 10/17/24 19:24> Medical Decision Making Vital Signs Vital Signs: Vital Signs Temperature 97.8 F 10/17/24 14:37 Pulse Rate 99 10/17/24 14:37 Respiratory Rate 17 10/17/24 14:37 Blood Pressure 152/97 H 10/17/24 14:37 Pulse Oximetry 94 10/17/24 14:37 Oxygen Delivery Room Air 10/17/24 14:37 Temperature 97.8 F 10/17/24 14:37 Pulse Rate 98 10/17/24 16:42 Respiratory Rate 21 H 10/17/24 16:40 Blood Pressure 152/97 H 10/17/24 14:37 Pulse Oximetry 97 10/17/24 16:40 Oxygen Delivery Room Air 10/17/24 14:37 Fraction of Inspired Oxygen 97 10/17/24 16:38 <Mildred Lara PA-C - Last Filed: 10/19/24 09:17> Vital Signs Temperature 97.8 F 10/17/24 14:37 Pulse Rate 99 10/17/24 14:37 Respiratory Rate 17 10/17/24 14:37 Blood Pressure 152/97 H 10/17/24 14:37 Pulse Oximetry 94 10/17/24 14:37 Oxygen Delivery Room Air 10/17/24 14:37 Temperature 97.8 F 10/17/24 14:37 Pulse Rate 98 10/17/24 16:42 Respiratory Rate 21 H 10/17/24 16:40 Blood Pressure 152/97 H 10/17/24 14:37 Pulse Oximetry 97 10/17/24 16:40 Oxygen Delivery Room Air 10/17/24 14:37 Fraction of Inspired Oxygen 97 10/17/24 16:38 <Byron Faustin MD - Last Filed: 10/17/24 19:24> Lab Data Result diagrams: 10/17/24 15:56 10/17/24 15:56 <Mildred Lara PA-C - Last Filed: 10/19/24 09:17> Labs: Lab Results 10/17/24 10/17/24 Range/Units 15:56 15:56 WBC 9.1 (4.5-10.0) K/mm3 RBC 4.60 (4.6-6.20) M/mm3 Hgb 12.1 L (14.0-18.0) g/dL Hct 40.9 L (42.0-52.0) % MCV 88.9 (80-100) fl MCH 26.3 (26-34) pg MCHC 29.6 L (32-36) g/dl RDW 15.7 H (11.5-14.5) % Plt Count 236 (150-375) k/mm3 MPV 10.0 (7.4-10.4) fl Immature Gran % (Auto) 0.3 (0-0.5) % Neut % (Auto) 66.5 (45.5-73.1) % Lymph % (Auto) 24.8 (18.3-44.2) % [place] % (Auto) 6.6 (2.6-8.5) % Eos % (Auto) 1.0 (0-4.4) % Baso % (Auto) 0.8 (0.2-1.2) % Lymph # (Auto) 2.24 (0.9-3.2) K/mm3 [place] # (Auto) 0.6 (0.1-0.6) K/mm3 Eos # (Auto) 0.1 (0-0.3) K/mm3 Baso # (Auto) 0.1 (0.0-0.1) K/mm3 Abs Immat Gran (auto) 0.03 (0.00-0.031) K/mm3 Absolute Neuts (auto) 6.0 (1.3-6.7) K/mm3 Absolute Nucleated RBC 0.000 (0.0-0.012) K/mm3 Band Neutrophils % Not Reportable Nucleated RBC % 0.0 (0.0-0.2) % Platelet Estimate Adequate (Adequate) Hypochromasia 1+ Anisocytosis 1+ Zeina Cells 1+ Schistocytes None seen PT 15.6 H (11.1-14.7) Seconds INR 1.2 APTT 34.4 (22.3-36.8) Seconds Sodium 138 (137-145) mmol/L Potassium 3.9 (3.4-5.0) mmol/L Chloride 101 (98-107) mmol/L Carbon Dioxide 29 (22-30) mmol/L Anion Gap 8 (4-12) mmol/L BUN 22 H (9-20) mg/dL Creatinine 0.73 (0.7-1.3) mg/dL Estim Creat Clear Calc 68 ml/min Estimated GFR > 60 (59 - ) Glucose 142 H (65-110) mg/dL Calcium 8.3 L (8.4-10.2) mg/dL Total Bilirubin 0.7 (0.2-1.3) mg/dL AST 32 (17-59) U/L ALT 22 (6-50) U/L Alkaline Phosphatase 76 (38-126) U/L NT-Pro-B Natriuret Pep 44867 H Cancelled (19.9-100) pg/mL Total Protein 7.0 (6.3-8.2) g/dL Albumin 3.8 (3.5-5.1) g/dL <Mildred Lara PA-C - Last Filed: 10/19/24 09:17> Lab Results 10/17/24 10/17/24 Range/Units 15:56 15:56 WBC 9.1 (4.5-10.0) K/mm3 RBC 4.60 (4.6-6.20) M/mm3 Hgb 12.1 L (14.0-18.0) g/dL Hct 40.9 L (42.0-52.0) % MCV 88.9 (80-100) fl MCH 26.3 (26-34) pg MCHC 29.6 L (32-36) g/dl RDW 15.7 H (11.5-14.5) % Plt Count 236 (150-375) k/mm3 MPV 10.0 (7.4-10.4) fl Immature Gran % (Auto) 0.3 (0-0.5) % Neut % (Auto) 66.5 (45.5-73.1) % Lymph % (Auto) 24.8 (18.3-44.2) % [place] % (Auto) 6.6 (2.6-8.5) % Eos % (Auto) 1.0 (0-4.4) % Baso % (Auto) 0.8 (0.2-1.2) % Lymph # (Auto) 2.24 (0.9-3.2) K/mm3 [place] # (Auto) 0.6 (0.1-0.6) K/mm3 Eos # (Auto) 0.1 (0-0.3) K/mm3 Baso # (Auto) 0.1 (0.0-0.1) K/mm3 Abs Immat Gran (auto) 0.03 (0.00-0.031) K/mm3 Absolute Neuts (auto) 6.0 (1.3-6.7) K/mm3 Absolute Nucleated RBC 0.000 (0.0-0.012) K/mm3 Band Neutrophils % Not Reportable Nucleated RBC % 0.0 (0.0-0.2) % Platelet Estimate Adequate (Adequate) Hypochromasia 1+ Anisocytosis 1+ Zeina Cells 1+ Schistocytes None seen PT 15.6 H (11.1-14.7) Seconds INR 1.2 APTT 34.4 (22.3-36.8) Seconds Sodium 138 (137-145) mmol/L Potassium 3.9 (3.4-5.0) mmol/L Chloride 101 (98-107) mmol/L Carbon Dioxide 29 (22-30) mmol/L Anion Gap 8 (4-12) mmol/L BUN 22 H (9-20) mg/dL Creatinine 0.73 (0.7-1.3) mg/dL Estim Creat Clear Calc 68 ml/min Estimated GFR > 60 (59 - ) Glucose 142 H (65-110) mg/dL Calcium 8.3 L (8.4-10.2) mg/dL Total Bilirubin 0.7 (0.2-1.3) mg/dL AST 32 (17-59) U/L ALT 22 (6-50) U/L Alkaline Phosphatase 76 (38-126) U/L NT-Pro-B Natriuret Pep [id number] H Cancelled (19.9-100) pg/mL Total Protein 7.0 (6.3-8.2) g/dL Albumin 3.8 (3.5-5.1) g/dL <Byron Faustin MD - Last Filed: 10/17/24 19:24> Imaging Data Radiologist's impression: ITS Impressions Venous Doppler Study 10/17/24 15:50 IMPRESSION: Negative bilateral lower extremity venous US. No deep vein thrombosis. Chest X-Ray 10/17/24 15:53 IMPRESSION: Bibasilar atelectasis versus pneumonia. Left pleural effusion. <Byron Faustin MD - Last Filed: 10/17/24 19:24> ECG Data EKG #1: ECG completion date: 10/17/24 <Byron Faustin MD - Last Filed: 10/17/24 19:24> ECG completion time: 15:55 <Byron Faustin MD - Last Filed: 10/17/24 19:24> EKG Interpretation: normal rate (92), sinus rhythm, PACs, widened QRS, RBBB and right axis <Byron Faustin MD - Last Filed: 10/17/24 19:24> Discharge Plan Discharge Clinical Impression: Noncompliance with medications CHF (congestive heart failure) Qualifiers: Heart failure type: unspecified Heart failure chronicity: unspecified Qualified Code(s): I50.9 - Heart failure, unspecified <Mildred Lara PA-C - Last Filed: 10/19/24 09:17> Patient Disposition: Home <Mildred Lara PA-C - Last Filed: 10/19/24 09:17> Condition: Stable <FRANKO Vazquez Last Filed: 10/19/24 09:17> Instructions: Antibiotic Form, Heart Failure (ED) <Mildred Lara PA-C - Last Filed: 10/19/24 09:17> Additional Instructions: Please return to the emergency department if you develop severe and persistent chest pain, difficulty breathing, dizziness, leg swelling or if you are coughing up blood as these can be signs of a medical emergency. Please call your doctor for a follow up appointment to determine the need for further testing. Restart your Toprol XL 100 mg once daily as well as your furosemide 40 mg daily and that should help with your leg swelling and shortness of breath. <Mildred Lara PA-C - Last Filed: 10/19/24 09:17> Patient Language: Palauan <Mildred Lara PA-C - Last Filed: 10/19/24 09:17> Prescriptions: No Action aspirin 81 mg tablet,chewable 81 mg PO DAILY cholecalciferol (vitamin D3) 50 mcg (2,000 unit) capsule 2,000 unit PO DAILY furosemide 40 mg Tablet 40 mg PO DAILY Qty: 30 1RF metoprolol succinate [Toprol XL] 100 mg Tablet Extended Release 24 Hr 100 mg PO QAM Qty: 60 0RF potassium chloride 20 mEq Packet 20 meq PO DAILY Qty: 30 0RF rosuvastatin [Crestor] 20 mg tablet 10 mg PO HS Qty: 30 0RF albuterol sulfate [Ventolin HFA] 90 mcg/actuation HFA aerosol inhaler 1 inh inhalation QID PRN (Reason: shortness of breath or wheezing) Qty: 8.5 2RF <Mildred Lara PA-C - Last Filed: 10/19/24 09:17> Follow-up/Referrals: [facility] [Primary Care Provider] - 1 Week <Mildred Lara PA-C - Last Filed: 10/19/24 09:17>
--- NOTE | 2024-10-17 15:09 | ECG_ITS ---
Test Date: 2024-10-17 15:55:09 Measurements Intervals [place] Rate: 92 P: -12 [place]: 169 QRS: 128 QRSD: 141 T: -19 QT: 408 QTc: 505 Interpretive Statements SINUS RHYTHM WITH OCCASIONAL VENTRICULAR PREMATURE COMPLEXES WITH OCCASIONAL SUPRAVENTRICULAR PREMATURE COMPLEXES RIGHT AXIS DEVIATION [QRS AXIS > 100] RIGHT BUNDLE BRANCH BLOCK [120+ ms QRS DURATION, UPRIGHT V1, 40+ ms S IN I/aVL/V4/V5/V6] ABNORMAL ECG COMPARED WITH 09/04/2024: VENTRICULAR AND ATRIAL ECTOPICS ARE NOTED, NO OTHER SIGNIFICANT CHANGE Electronically Signed On 10-17-2024 15:57:09 CDT by Gagandeep Argueta M.D.
--- OUTSIDE RECORDS SUMMARY | 2024-10-17 15:53 | XMS_ITS | Clinical Summary ---
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
--- OUTSIDE RECORDS SUMMARY | 2024-10-17 15:53 | XMS_ITS | Referral Summary ---
Author Organization [facility] Address [address] [place] [address] Care Team Providers Care Quantitative Developer Name Role Phone Unknown, Notinfile Primary Care Provider Unavail able Encounters Date Type Department Care Team Description 09/07/2024 Orders Only [facility] Medical Group Cardiology [address] [facility] [address] [place] [phone] Linda Dang MD 09/06/2024 Telephone [facility] Accountable Care Organization [address] [place] [phone] Caitlin Queen MA Unsuccessful Phone Call 1 ([employer] AWV) 08/31/2024 Orders Only [facility] Medical [facility] Cardiology [address] [facility] [address] [place] [phone] Linda Dang MD 08/30/2024 Orders Only [facility] Medical [facility] Cardiology [address] [facility] [address] [place] [phone] Linda Dang MD 08/22/2024 5:19 PM CDT - 08/22/2024 8:28 PM CDT Emergency [facility] Emergency Department [address] [place] [address] Discharge Disposition: Left without being seen 08/15/2024 8:47 AM LABOR STANDARDS DIRECTOR - 08/15/2024 3:05 PM LABOR STANDARDS DIRECTOR Emergency [facility] Emergency Department [address] [place] [address] Gayla Malcolm MD Atrial fibrillation with controlled [...] needed Assessment & Plan (07/23/2018 12:58 PM LABOR STANDARDS DIRECTOR): Reports compliance with wound care/splinting/hand therapy Healing [...] on file Legal Sex Male 1:47 AM LABOR STANDARDS DIRECTOR Gender Identity Not on file Sexual Orientation [...] on file Medical Devices Implanted Type Area Operations Mgr Device Identifier Shelf Expiration Date Model / Serial / Lot [employer] 8600-5x05 Graftjacket [id number] Regenerative Nonmesh Standard Graft - [id number] Implanted:Qty: 1 on 07/06/2018 by Kirby Rm III, MD at [facility] Left: Wrist [employer] 01/13/2020 8600-5X05 / / [id number] Procedures Procedure Name Priority Date/Time Associated [...] T HIGH-SENSITIVITY 2-HOUR Timed 08/15/2024 11:29 AM LABOR STANDARDS DIRECTOR URINALYSIS AND REFLEX TO MICROSCOPIC AND CULTURE STAT 08/15/2024 11:29 AM LABOR STANDARDS DIRECTOR EGFR STAT 08/15/2024 10:37 AM LABOR STANDARDS DIRECTOR HEPATIC FUNCTION PANEL STAT 10:37 AM LABOR STANDARDS DIRECTOR PRO B-TYPE NATRIURETIC PEPTIDE Add-On 08/15/2024 10:37 AM LABOR STANDARDS DIRECTOR CREATININE STAT 08/15/2024 10:37 AM LABOR STANDARDS DIRECTOR CBC WITHOUT DIFFERENTIAL STAT 08/15/2024 10:37 AM LABOR STANDARDS DIRECTOR TROPONIN T HIGH-SENSITIVITY 2-HOUR Timed 08/15/2024 10:37 AM LABOR STANDARDS DIRECTOR EGFR STAT 08/15/2024 9:00 AM LABOR STANDARDS DIRECTOR APTT STAT 08/15/2024 9:00 AM LABOR STANDARDS DIRECTOR PROTIME-INR STAT 08/15/2024 9:00 AM LABOR STANDARDS DIRECTOR DIFFERENTIAL AUTO STAT 08/15/2024 9:0 0 AM LABOR STANDARDS DIRECTOR TROPONIN T HIGH-SENSITIVITY SERIES (BASELINE, 2HR, 4HR, 6HR) STAT 08/15/2024 9:00 AM LABOR STANDARDS DIRECTOR CBC WITH AUTO DIFFERENTIAL STAT 08/15/2024 9:00 AM LABOR STANDARDS DIRECTOR COMPREHENSIVE METABOLIC PANEL STAT 08/15/2024 9:00 AM LABOR STANDARDS DIRECTOR INFLUENZA A/B, RSV, AND COVID-19 PCR STAT 08/15/2024 9:00 AM LABOR STANDARDS DIRECTOR XR CHEST PA LATERAL 2 VIEWS ED 08/15/2024 8:49 AM LABOR STANDARDS DIRECTOR ECG 12-LEAD STAT 08/15/2024 8:26 AM LABOR STANDARDS DIRECTOR COLONOSCOPY 07/16/2017 7:32 AM LABOR STANDARDS DIRECTOR from Last 3 Months or Most Recently [...] ORDERABLES Final Result [facility] ([facility]) 1 [facility] Department of Laboratories [place], [place] [id number] * (ABNORMAL) Pro B-type natriuretic peptide (08/22/2024 [...] Final Resu lt [facility] ([place]) 1 [facility] [place] [address] * (ABNORMAL) CBC with auto differential (08/22/2024 [...] ORDERABLES Final Result [facility] ([place]) 1 [facility] [place] [address] * (ABNORMAL) Manual Differential (08/22/2024 5:36 PM [...] ORDERABLES Final Result [facility] ([place]) 1 [facility] [place] [address] * Lipase (08/22/2024 5:36 PM CDT) Lipase 95 10 - 99 Units/L Blood Venous blood specimen / Unknown 08/22/2024 5:36 PM CDT 08/22/2024 5:40 PM CDT Timo Holder MD LAB BLOOD ORDERABLES Final Result Performing Organization Address City/[facility]/ZIP Co de Phone Number [facility] ([place]) 1 [facility] [place] [address] * Comprehensive metabolic panel (08/22/2024 5:36 PM CDT) Sodium 141 135 - 145 mmol/L Potassium, pl 4.6 3.3 - 4.9 mmol/L [facility] ([place]) Chloride 99 97 - 110 mmol/L [facility] ([place]) CO2 31 22 - 32 mmol/L [facility] ([place]) Anion gap 11 2 - 15 mmol/L [facility] ([place]) BUN 19 6 - 25 mg/dL [facility] Creatinine 0.82 0.80 - 1.30 mg/dL [facility] ([place]) Glucose 98 70 - 199 mg/dL [facility] ([facility]) Comment: Interpretive Data Fasting glucose [...] BLOOD ORDERABLES Final Result Performing Organization Address [facility] Co de Phone Number [facility] ([place]) 1 [facility] [address] [place] [address] * (ABNORMAL) Troponin T high-sensitivity 2-hour (08/15/2024 11:29 AM LABOR STANDARDS DIRECTOR) Trop T hs 26(H) <=22 ng/L Comment: [...] to calculate Blood 08/15/2024 11:2 9 AM LABOR STANDARDS DIRECTOR 08/15/2024 11:31 AM LABOR STANDARDS DIRECTOR us Gayla Malcolm MD LAB BLOOD ORDERABLES Alanna l Result Performing Organization Address [facility]/ZIP Co de Phone Number [facility] ([place]) 1 [facility] [place] [address] * Urinalysis reflex to microscopic and culture Urine (08/15/2024 11:29 AM LABOR STANDARDS DIRECTOR) Color, ur Straw Yellow Clarity, ur Clear [...] tendency for uric acid stone formation. Source: [facility] Current Interpretive Data was last revised on [...] [facility] ([facility]) Urine 08/15/2024 11:2 9 AM LABOR STANDARDS DIRECTOR 08/15/2024 11:31 AM LABOR STANDARDS DIRECTOR us Gayla Malcolm MD LAB MICROBIOLOGY - GENERA L ORDERABLES Final Result [facility] ([facility] 1 [facility] [place] [address] * (ABNORMAL) Troponin T high-sensitivity 2-hour (08/15/2024 10:37 AM LABOR STANDARDS DIRECTOR) Trop T hs 26(H) <=22 ng/L Comment: Interpretive Data For further hscTnT resources including the diagnostic algorithm and an aid in interpretation, copy and paste this link: https://nrl.testcatalog.org/show/hsTrop Current Interpretive Data last revised 2020. Trop T hs interp See Comment C [facility] ([place]) Comment:Delta calculation an d interpretation not available. Blood 08/15/2024 10:3 7 AM LABOR STANDARDS DIRECTOR 08/15/2024 10:38 AM LABOR STANDARDS DIRECTOR Gayla Malcolm MD LAB BLOOD ORDERABLES Alanna l Result Performing Organization Address City/[facility] Co de Phone Number [facility] ([place]) 1 [facility] [address] [place] [address] * eGFR (08/15/2024 10:37 AM LABOR STANDARDS DIRECTOR) eGFR >90 >=60 mL/min/1. 73 m2 Comment: [...] reviewed 2021. Blood 08/15/2024 10:3 7 AM LABOR STANDARDS DIRECTOR 08/15/2024 10:39 AM LABOR STANDARDS DIRECTOR Gayla Malcolm MD LAB BLOOD ORDERABLES Alanna l Result Performing Organization Address [facility]/ZIP Co de Phone Number [facility] ([place]) 1 [facility] [address] [place] [address] * (ABNORMAL) Pro B-type natriuretic peptide (08/15/2024 10:37 AM LABOR STANDARDS DIRECTOR) NT-proBNP 4,819(H) <=450 pg/mL Comment: Interpretive Comments: [...] Date: 2018. Blood 08/15/2024 10:3 7 AM LABOR STANDARDS DIRECTOR 08/15/2024 10:39 AM LABOR STANDARDS DIRECTOR us Gayla Malcolm MD LAB BLOOD ORDERABLES Edit ed Result - Final [facility] 3 [facility] [place] [address] * (ABNORMAL) CBC without differential (08/15/2024 10:37 AM LABOR STANDARDS DIRECTOR) WBC 8.8 3.8 - 9.9 K/cumm Hgb [...] [facility] ([facility]) Blood 08/15/2024 10:3 7 AM LABOR STANDARDS DIRECTOR 08/15/2024 10:38 AM LABOR STANDARDS DIRECTOR Narrative [facility] ([place]) - 08/15/2024 10:41 AM LABOR STANDARDS DIRECTOR Baseline prior to enoxaparin initiation. Gayla Malcolm MD LAB BLOOD ORDERABLES Alanna l Result [facility] ([place]) 1 [facility] [place] [address] * (ABNORMAL) Creatinine (08/15/2024 10:37 AM LABOR STANDARDS DIRECTOR) Creatinine 0.72(L) 0.80 - 1.30 mg/dL Blood 08/15/2024 10:3 7 AM LABOR STANDARDS DIRECTOR 08/15/2024 10:39 AM LABOR STANDARDS DIRECTOR Narrative [facility] ([place]) - 08/15/2024 11:27 AM LABOR STANDARDS DIRECTOR Baseline prior to enoxaparin initiation. Gayla Malcolm MD LAB BLOOD ORDERABLES Alanna l Result Performing Organization Address City/[facility]/ZIP Co de Phone Number [facility] ([place]) [address] [place] [address] * Hepatic function panel (08/15/2024 10:37 AM LABOR STANDARDS DIRECTOR) Bilirubin, total 0.3 0.1 - 1.2 mg/dL Bilirubin, direct 0.1 0.1 - 0.3 mg/dL [facility] ([place]) Protein, pl 6.9 6.5 - 8.5 g/dL [facility] ([place]) Albumin 3.8 3.5 - 5.0 g/dL [facility] ([place]) Alk phos 69 40 - 130 Units/L [facility] ([place]) ALT 14 7 - 55 Units/L [facility] ([place]) AST 21 10 - 50 Units/L [facility] ([place]) Blood 08/15/2024 10:3 7 AM LABOR STANDARDS DIRECTOR 08/15/2024 10:39 AM LABOR STANDARDS DIRECTOR Gayla Malcolm MD LAB BLOOD ORDERABLES Alanna l Result Performing Organization Address [facility] Co de Phone Number [facility] ([place]) [address] [place] [address] * (ABNORMAL) Troponin T high-sensitivity series (baseline, 2hr, 4hr, 6hr) (08/15/2024 9:00 AM LABOR STANDARDS DIRECTOR) Pathologist [facility] Trop T hs 23(H) <=22 ng/L Comment: Interpretive Data For further hscTnT resources including the diagnostic algorithm and an aid in interpretation, copy and paste this link: https://nrl.testcatalog.org/show/hsTrop Current Interpretive Data last revised 2020. Testing performed by: [facility], [address] [place] [address], [place] [address] Blood 08/15/2024 9:00 AM LABOR STANDARDS DIRECTOR 08/15/2024 9:06 AM LABOR STANDARDS DIRECTOR Gayla Malcolm MD LAB BLOOD ORDERABLES Alanna l Result [facility] 1 [facility] [place] [address] * Influenza A/B, RSV, and COVID-19 PCR Nasopharyngeal (08/15/2024 9:00 AM LABOR STANDARDS DIRECTOR) Pathologist [facility] COVID-19 RNA Negative Negative Influenza A RNA Negative Negative [facility] ([place]) Influenza B RNA Negative Negative [facility] ([place]) RSV RNA Negative Negative [facility] ([place]) Comment: Interpretive data: Testing performed by [facility]. This test is performed using the [employer] Xpert Xpress CoV-2/Flu/RSV plus assay. This is a multiplex, real- time reverse transcriptase PCR assay intended for the qualitative detection of nucleic acid from SARS-CoV-2, influenza A, influenza B, and respiratory syncytial virus. This assay has been cleared by the [place] Food and Drug administration. The performance characteristics have been verified by the [facility]. Results must be considered in the clinical context, and a negative result does not rule out infection. Interpretive Data last revised 2023 Nasopharyngeal 08/15/2024 9: 00 AM LABOR STANDARDS DIRECTOR 08/15/2024 9:06 AM LABOR STANDARDS DIRECTOR Narrative [facility] ([place]) - 08/15/2024 9:50 AM LABOR STANDARDS DIRECTOR Is the Patient experiencing symptoms consistent with COVID?->Yes Gayla Malcolm MD LAB MICROBIOLOGY - GENERA L ORDERABLES Final Result [facility] ([place]) 1 [facility] [place] [address] * eGFR (08/15/2024 9:00 AM LABOR STANDARDS DIRECTOR) [facility] eGFR >90 >=60 mL/min/1. 73 m2 [...] last reviewed 2021. Testing performed by: [facility], [address] [place] [address], [place]., [address] Blood 08/15/2024 9:00 AM LABOR STANDARDS DIRECTOR 08/15/2024 10:54 AM LABOR STANDARDS DIRECTOR Gayla Malcolm MD LAB BLOOD ORDERABLES Alanna grimaldo Result [facility] 1 [facility] [place] [address] * Differential, auto (08/15/2024 9:00 AM LABOR STANDARDS DIRECTOR) Neutrophil abs 4.5 1.5 - 6.5 K/cumm [...] revised on 2017. Blood 08/15/2024 9:00 AM LABOR STANDARDS DIRECTOR 08/15/2024 9:06 AM LABOR STANDARDS DIRECTOR us Gayla Malcolm MD LAB BLOOD ORDERABLES Alanna grimaldo Result [facility] ([place]) 1 [facility] [place] [address] * (ABNORMAL) CBC with auto differential (08/15/2024 9:00 AM LABOR STANDARDS DIRECTOR) WBC 8.1 3.8 - 9.9 K/cumm Hgb [...] 14.1 11.1 - 14.9 % [facility] ([place]) RDW SD 47.2 35.7 - 48.1 fL [facility] ([place]) NRBC abs 0.00 0.00 - 0.01 K/cumm [facility] ([place]) Blood 08/15/2024 9:00 AM LABOR STANDARDS DIRECTOR 08/15/2024 9:06 AM LABOR STANDARDS DIRECTOR Gayla Malcolm MD LAB BLOOD ORDERABLES Alanna l Result Performing Organization Address [facility] Co de Phone Number [facility] ([place]) 1 [facility] [address] [place] [address] * aPTT (08/15/2024 9:00 AM LABOR STANDARDS DIRECTOR) aPTT 36 28 - 38 sec [facility] ([place]) Comment: Interpretive Data Heparin therapeutic range: 66.0 - 100.0 seconds. Range based on correlation with therapeutic heparin activity range of 0.3 - 0.7 Units/mL. Current interpretive data was last revised on 2023. Blood 08/15/2024 9:00 AM LABOR STANDARDS DIRECTOR 08/15/2024 10:24 AM LABOR STANDARDS DIRECTOR Narrative [facility] ([place]) - 08/15/2024 10:31 AM LABOR STANDARDS DIRECTOR Baseline prior to enoxaparin initiation. Gayla Malcolm MD LAB BLOOD ORDERABLES Alanna l Result Performing Organization Address City/[facility]/ZIP Co de Phone Number [facility] ([place]) 1 [facility] [address] [place] [address] * Protime-INR (08/15/2024 9:00 AM LABOR STANDARDS DIRECTOR) PT 12.8 9.7 - 13.0 sec [facility] ([place]) INR 1.18 0.90 - 1.20 [facility] ([place]) Comment: Interpretive data Oral anticoagulant therapeutic ranges: Venous thromboembolism prophylaxis or treatment: 2.0-3.0 CARDIOLOGY Standard range: 2.0-3.0 High-intensity range: 2.5-3.5 Refer to indication-specific guidelines for appropriate target ranges for prosthetic heart valve replacement. Current interpretive data was last revised on 2019. Blood 08/15/2024 9:00 AM LABOR STANDARDS DIRECTOR 08/15/2024 10:24 AM LABOR STANDARDS DIRECTOR Narrative [facility] ([place]) - 08/15/2024 10:31 AM LABOR STANDARDS DIRECTOR Baseline prior to enoxaparin initiation. Gayla Malcolm MD LAB BLOOD ORDERABLES Alanna grimaldo Result [facility] ([place]) 1 [facility] [place] [address] * (ABNORMAL) Comprehensive metabolic panel (08/15/2024 9:00 AM LABOR STANDARDS DIRECTOR) Pathologist [facility] Sodium 146(H) 135 - 145 mmol/L Comment:Testing performed by : [address] [address] Potassium, pl 4.5 3.3 - 4.9 mmol/L [facility] ([place]) Comment:Testing performed by : [facility], [address] [place] [address]., [address] Chloride 108 97 - 110 mmol/L [facility] ([place]) Comment:Testing performed by : [address] [address] CO2 27 22 - 32 mmol/L [facility] ([place]) Comment:Testing performed by : [address], [address] Anion gap 11 2 - 15 mmol/L [facility] ([place]) Comment:Testing performed by : [address], [address] BUN 14 6 - 25 mg/dL [facility] ([place]) Comment:Testing performed by : [address] [address] Creatinine 0.77(L) 0.80 - 1.30 mg/dL [facility] ([place]) Comment:Testing performed by : [address], [address] Glucose 98 70 - 199 mg/dL [facility] [...] was last revised 2022. Testing performed by: [address], [address] Calcium 8.8 8.5 - 10.3 mg/dL [facility] ([place]) Comment:Testing performed by : [address], [address] Bilirubin, total 0.3 0.1 - 1.2 mg/dL [facility] ([place]) Comment:Testing performed by : [address], [address] Protein, pl 7.2 6.5 - 8.5 g/dL [facility] ([place]) Comment:Testing performed by : [address], [address] Albumin 3.8 3.5 - 5.0 g/dL [facility] ([place]) Comment:Testing performed by : [address], [address] Alk phos 71 40 - 130 Units/L [facility] ([place]) Comment:Testing performed by : [address], [address] ALT 17 7 - 55 Units/L [facility] ([place]) Comment:Testing performed by : [address] [place] [address] AST 32 10 - 50 Units/L [facility] ([place]) Comment:Testing performed by : [facility], [address] [place] [address]., [address] Blood 08/15/2024 9:00 AM LABOR STANDARDS DIRECTOR 08/15/2024 9:06 AM LABOR STANDARDS DIRECTOR Gayla Malcolm MD LAB BLOOD ORDERABLES Alanna l Result [facility] ([place]) 1 [facility] [place] [address] * XR Chest PA Lateral 2 Views (08/15/2024 8:49 AM LABOR STANDARDS DIRECTOR) Anatomical Region Laterality Modality Body, Chest N/A Computed Radiogr aphy 08/15/2024 9:00 AM LABOR STANDARDS DIRECTOR Narrative 08/15/2024 9:01 AM LABOR STANDARDS DIRECTOR EXAM DESCRIPTION: XR CHEST PA LATERAL 2 [...] Amari Roberts M.D. MM: MM Report ID: [id number] Reading Location: [id number] Procedure Note Amari Roberts MD - 08/15/2024 [...] Amari Roberts M.D. MM: MM Report ID: [id number] Reading Location: [place] [address] Gayla Malcolm MD IMG XR PROCEDURES Final R esult * COLONOSCOPY (07/16/2017 7:32 AM LABOR STANDARDS DIRECTOR) Anatomical Region Laterality Modality Other Narrative Procedure Note Michael Bran MD - 07/16/2017 7:32 AM CST [facility] Patient Name: Js Contreras Procedure Date: [...] scope was passed under direct vision.The Colonoscope [id number] was introducedthrough the anus and advanced to [...] 7:32 AM Procedure Code(s): --- Professional --- 83383, Colonoscopy, flexible; with removal of tumor(s), polyp(s), or other lesion(s) by snare technique Diagnosis Code(s): --- Professional --- Z86.010, Personal history of colonic polyps K64.8, Other hemorrhoids D12.5, Benign neoplasm of sigmoid colon K57.30, Diverticulosis of large intestine without perforation orabscess without bleeding CPT copyright 2014 [employer]. All rights reserved. The codes documented in this report are preliminary and upon rotary adjuster reviewmay be revised to meet current compliance requirements. Recognized by the [employer] for promoting quality in endoscopy Michael Shaw MD ENDOSCOPY PROCEDUR ES Final Result from Last 3 Months or Most Recently Relevant to Health Maintenance Insurance [employer] CHO[employer] MEDICARE PPO Member Subscriber Plan / Payer (Ef fective 2017-Present) Name:Js Contreras Relation to Subscriber:Self Name:Js Contreras Payer ID:[id number] (NAIC) Type:MEDICARE RISK OTHER Address: [address] MEDICARE [facility] MEDICARE GENERIC RISK OTHER [facility] CHOICE MEDICARE PPO MEDICARE [facility] [employer] MEDICARE GOLD [facility] MEDICARE ADVANTAGE Care Teams Quantitative Developer Relationship Specialty Start Date End Date Unknown, Notinfile PCP - General 07/09/23
--- OUTSIDE RECORDS SUMMARY | 2024-10-17 15:53 | XMS_ITS | Clinical Summary ---
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 Scapholunate ligament injury , no instability, left, initial encounter 12/28/2017 Encounters Date Type Department Care Team Description 09/07/2024 Orders Only [facility] Cardiology [address] [place] [address] Linda Dang MD 09/06/2024 Telephone [facility] Care Organization [address] [place] [address] Caitlin Queen MA Unsuccessful Phone Call 1 ([employer] AWV) 08/31/2024 Orders Only [facility] Medical [facility] Cardiology [address] [place] [phone] Linda Dang MD 08/30/2024 Orders Only [facility] Medical [facility] Cardiology [address] [place] [phone] Linda Dang MD 08/22/2024 5:19 PM CDT - 08/22/2024 8:28 PM CDT Emergency [facility] Emergency Department 1 [place] [address] Discharge Disposition: Left without being seen 08/15/2024 8:47 AM PROFESSOR OF JOURNALISM - 08/15/2024 3:05 PM PROFESSOR OF JOURNALISM Emergency [facility] Emergency Department 1 [place] [address] Gayla Malcolm MD Atrial fibrillation with controlled [...] on file Legal Sex Male 1:47 AM PROFESSOR OF JOURNALISM Gender Identity Not on file Sexual Orientation [...] history exists Medical Devices Implanted Type Area Clarity Developer Device Identifier Shelf Expiration Date Model / Serial / Lot Aquiris 8600-5x05 Graftjacket [id number] Regenerative Nonmesh Standard Graft - [id number] Implanted:Qty: 1 on 07/06/2018 by Kiryb Rm III, MD at [facility] Left: Wrist Aquiris 01/13/2020 [id number] / / [id number] Procedures Procedure Name Priority Date/Time Associated [...] T HIGH-SENSITIVITY 2-HOUR Timed 08/15/2024 11:29 AM PROFESSOR OF JOURNALISM URINALYSIS AND REFLEX TO MICROSCOPIC AND CULTURE STAT 08/15/2024 11:29 AM PROFESSOR OF JOURNALISM EGFR STAT 08/15/2024 10:37 AM PROFESSOR OF JOURNALISM HEPATIC FUNCTION PANEL STAT 10:37 AM PROFESSOR OF JOURNALISM PRO B-TYPE NATRIURETIC PEPTIDE Add-On 08/15/2024 10:37 AM PROFESSOR OF JOURNALISM CREATININE STAT 08/15/2024 10:37 AM PROFESSOR OF JOURNALISM CBC WITHOUT DIFFERENTIAL STAT 08/15/2024 10:37 AM PROFESSOR OF JOURNALISM TROPONIN T HIGH-SENSITIVITY 2-HOUR Timed 08/15/2024 10:37 AM PROFESSOR OF JOURNALISM EGFR STAT 08/15/2024 9:00 AM PROFESSOR OF JOURNALISM APTT STAT 08/15/2024 9:00 AM PROFESSOR OF JOURNALISM PROTIME-INR STAT 08/15/2024 9:00 AM PROFESSOR OF JOURNALISM DIFFERENTIAL AUTO STAT 08/15/2024 9:0 0 AM PROFESSOR OF JOURNALISM TROPONIN T HIGH-SENSITIVITY SERIES (BASELINE, 2HR, 4HR, 6HR) STAT 08/15/2024 9:00 AM PROFESSOR OF JOURNALISM CBC WITH AUTO DIFFERENTIAL STAT 08/15/2024 9:00 AM PROFESSOR OF JOURNALISM COMPREHENSIVE METABOLIC PANEL STAT 08/15/2024 9:00 AM PROFESSOR OF JOURNALISM INFLUENZA A/B, RSV, AND COVID-19 PCR STAT 08/15/2024 9:00 AM PROFESSOR OF JOURNALISM XR CHEST PA LATERAL 2 VIEWS ED 08/15/2024 8:49 AM PROFESSOR OF JOURNALISM ECG 12-LEAD STAT 08/15/2024 8:26 AM PROFESSOR OF JOURNALISM COLONOSCOPY 07/16/2017 7:32 AM PROFESSOR OF JOURNALISM from Last 3 Months or Most Recently [...] LAB BLOOD ORDERABLES Final Result [facility] ([place]) 1 [facility] Department [place] [address] * (ABNORMAL) Pro B-type natriuretic peptide (08/22/2024 [...] ORDERABLES Final Resu lt Performing Organization Address City/[facility]/ZIP Co de Phone Number [facility] ([place]) 1 [facility] [employer] [place] [address] * (ABNORMAL) CBC with auto differential (08/22/2024 5:36 PM CDT) WBC 13.4(H) 3.8 - 9.9 K/cumm Hgb 15.7 13.0 - 17.5 g/dL [facility] ([place]) Hct 48.9 38.9 - 50.3 % [facility] ([place]) Plt 282 150 - 400 K/cumm [facility] ([place]) MPV 9.8 9.1 - 12.3 fL [facility] ([place]) RBC 5.61 4.30 - 5.80 M/cumm [facility] [...] BLOOD ORDERABLES Final Result Performing Organization Address City/[facility]/ZIP Co de Phone Number [facility] ([place]) 1 [facility] [place] [address] * (ABNORMAL) Manual Differential (08/22/2024 5:36 PM [...] ORDERABLES Final Result [facility] ([place]) 1 [facility] Department of Laboratories [place], [place] [id number] * Lipase (08/22/2024 5:36 PM CDT) Lipase 95 10 - 99 Units/L Blood Venous blood specimen / Unknown 08/22/2024 5:36 PM CDT 08/22/2024 5:40 PM CDT us Timo Holder MD LAB BLOOD ORDERABLES Final Result [facility] ([place]) 1 [facility] Department [place] [address] * Comprehensive metabolic panel (08/22/2024 5:36 PM [...] BLOOD ORDERABLES Final Result Performing Organization Address [facility] Co de Phone Number [facility] ([place]) 1 [facility] [place] [address] * (ABNORMAL) Troponin T high-sensitivity 2-hour (08/15/2024 11:29 AM PROFESSOR OF JOURNALISM) Trop T hs 26(H) <=22 ng/L Comment: Interpretive Data For further hscTnT resources including the diagnostic algorithm and an aid in interpretation, copy and paste this link: https://nrl.testcatalog.org/show/hsTrop Current Interpretive Data last revised 2020. Trop T hs delta See Comment ng/L CE [facility]IE [facility] ([place]) Comment:unable to calculate Trop T hs pct delta See Comment % [facility] ([place]) Comment:unable to calculate Trop T hs interp See Comment C ERNZULLY [facility] ([place]) Comment:unable to calculate Blood 08/15/2024 11:2 9 AM PROFESSOR OF JOURNALISM 08/15/2024 11:31 AM PROFESSOR OF JOURNALISM Gayla Malcolm MD LAB BLOOD ORDERABLES Alanna l Result Performing Organization Address [facility] Co de Phone Number [facility] ([place]) 1 [facility] [place] [address] * Urinalysis reflex to microscopic and culture Urine (08/15/2024 11:29 AM PROFESSOR OF JOURNALISM) Color, ur Straw Yellow Clarity, ur Clear Clear [facility] ([place]) Specific gravity, ur 1.008 1.003 - 1.030 [facility] ([place]) pH, urine 6.5 [facility] ([place]) Comment: Interpretive Data U rine pH is affected by diet, medications, systemic acid-base disturbances, and renal tubular function. pH may affect urinary stone formation. For example, urine pH below 6.0 may help reduce the tendency for calcium phosphate stones and pH greater than 6.0 may reduce the tendency for uric acid stone formation. Source: [facility] Current Interpretive Data was last [...] [facility] ([place]) Urine 08/15/2024 11:2 9 AM PROFESSOR OF JOURNALISM 08/15/2024 11:31 AM PROFESSOR OF JOURNALISM Gayla Malcolm MD LAB MICROBIOLOGY - GENERA L ORDERABLES Final Result Performing Organization Address City/[facility] Co de Phone Number [facility] ([place]) 1 [facility] Department [place] [address] * (ABNORMAL) Troponin T high-sensitivity 2-hour (08/15/2024 10:37 AM PROFESSOR OF JOURNALISM) Trop T hs 26(H) <=22 ng/L Comment: Interpretive Data For further hscTnT resources including the diagnostic algorithm and an aid in interpretation, copy and paste this link: https://nrl.testcatalog.org/show/hsTrop Current Interpretive Data last revised 2020. Trop T hs interp See Comment C ELISA [facility] ([place]) Comment:Delta calculation an d interpretation not available. Blood 08/15/2024 10:3 7 AM PROFESSOR OF JOURNALISM 08/15/2024 10:38 AM PROFESSOR OF JOURNALISM Gayla Malcolm MD LAB BLOOD ORDERABLES Alanna l Result [facility] [place]) 1 [facility] Department [place] [address] * eGFR (08/15/2024 10:37 AM PROFESSOR OF JOURNALISM) eGFR >90 >=60 mL/min/1. 73 m2 Comment: [...] reviewed 2021. Blood 08/15/2024 10:3 7 AM PROFESSOR OF JOURNALISM 08/15/2024 10:39 AM PROFESSOR OF JOURNALISM us Gayla Malcolm MD LAB BLOOD ORDERABLES Alanna l Result Performing Organization Address City/[facility]/ZIP Co de Phone Number [facility] ([place]) 1 [facility] [place] [address] * (ABNORMAL) Pro B-type natriuretic peptide (08/15/2024 10:37 AM PROFESSOR OF JOURNALISM) NT-proBNP 4,819(H) <=450 pg/mL Comment: Interpretive Comments: [...] Date: 2018. Blood 08/15/2024 10:3 7 AM PROFESSOR OF JOURNALISM 08/15/2024 10:39 AM PROFESSOR OF JOURNALISM us Gayla Malcolm MD LAB BLOOD ORDERABLES Edit ed Result - Final [facility] ([place] 1 [facility] Department of Laboratories [place], [place] [id number] * (ABNORMAL) CBC without differential (08/15/2024 10:37 AM PROFESSOR OF JOURNALISM) WBC 8.8 3.8 - 9.9 K/cumm Hgb [...] [facility] ([place]) Blood 08/15/2024 10:3 7 AM PROFESSOR OF JOURNALISM 08/15/2024 10:38 AM PROFESSOR OF JOURNALISM Narrative [facility] ([place]) - 08/15/2024 10:41 AM PROFESSOR OF JOURNALISM Baseline prior to enoxaparin initiation. Gayla Malcolm MD LAB BLOOD ORDERABLES Alanna l Result Performing Organization Address City/[facility]/ZIP Co de Phone Number [facility] ([place]) 1 [facility] [place] [address] * (ABNORMAL) Creatinine (08/15/2024 10:37 AM PROFESSOR OF JOURNALISM) Creatinine 0.72(L) 0.80 - 1.30 mg/dL Blood 08/15/2024 10:3 7 AM PROFESSOR OF JOURNALISM 08/15/2024 10:39 AM PROFESSOR OF JOURNALISM Narrative [facility] ([place]) - 08/15/2024 11:27 AM PROFESSOR OF JOURNALISM Baseline prior to enoxaparin initiation. Gayla Malcolm MD LAB BLOOD ORDERABLES Alanna l Result [facility] ([place]) 1 [facility] CORD:[place] [address] * Hepatic function panel (08/15/2024 10:37 AM PROFESSOR OF JOURNALISM) Bilirubin, total 0.3 0.1 - 1.2 mg/dL [...] [facility] ([place]) Blood 08/15/2024 10:3 7 AM PROFESSOR OF JOURNALISM 08/15/2024 10:39 AM PROFESSOR OF JOURNALISM Gayla Malcolm MD LAB BLOOD ORDERABLES Alanna l Result Performing Organization Address City/[facility] Co de Phone Number [facility] ([place]) [address] [place] [address] CORD:[place] [address] * (ABNORMAL) Troponin T high-sensitivity series (baseline, 2hr, 4hr, 6hr) (08/15/2024 9:00 AM PROFESSOR OF JOURNALISM) Pathologist [facility] Trop T hs 23(H) <=22 ng/L Comment: Interpretive Data For further hscTnT resources including the diagnostic algorithm and an aid in interpretation, copy and paste this link: https://nrl.testcatalog.org/show/hsTrop Current Interpretive Data last revised 2020. Testing performed by: [facility], [address] [place] [address]., [address] Blood 08/15/2024 9:00 AM PROFESSOR OF JOURNALISM 08/15/2024 9:06 AM PROFESSOR OF JOURNALISM Gayla Malcolm MD LAB BLOOD ORDERABLES Alanna l Result Performing Organization Address City/[facility]/ZIP Co de Phone Number [facility] ([place]) [address] [place] [address] [place] [address] * Influenza A/B, RSV, and COVID-19 PCR Nasopharyngeal (08/15/2024 9:00 AM PROFESSOR OF JOURNALISM) [facility] COVID-19 RNA Negative Negative Influenza A RNA Negative Negative [facility] ([place]) Influenza B RNA Negative Negative [facility] ([place]) RSV RNA Negative Negative [facility] ([place]) Comment: Interpretive data: Testing performed by [facility]. This test is performed using the [employer] Xpert Xpress CoV-2/Flu/RSV plus assay. This is a multiplex, real- time reverse transcriptase PCR assay intended for the qualitative detection of nucleic acid from SARS-CoV-2, influenza A, influenza B, and respiratory syncytial virus. This assay has been cleared by the [place] Food and Drug administration. The performance characteristics have been verified by the [facility]. Results must be considered in the clinical context, and a negative result does not rule out infection. Interpretive Data last revised 2023 Nasopharyngeal 08/15/2024 9: 00 AM PROFESSOR OF JOURNALISM 08/15/2024 9:06 AM PROFESSOR OF JOURNALISM Narrative [facility] ([place]) - 08/15/2024 9:50 AM PROFESSOR OF JOURNALISM Is the Patient experiencing symptoms consistent with COVID?->Yes Gayla Malcolm MD LAB MICROBIOLOGY - GENERA L ORDERABLES Final Result [facility] ([place]) 1 [facility] Department [place] [address] * eGFR (08/15/2024 9:00 AM PROFESSOR OF JOURNALISM) eGFR >90 >=60 mL/min/1. 73 m2 Comment: [...] 2021. Testing performed by: [facility], [address] [place] [address], [place]., [address] Blood 08/15/2024 9:00 AM PROFESSOR OF JOURNALISM 08/15/2024 10:54 AM PROFESSOR OF JOURNALISM Gayla Malcolm MD LAB BLOOD ORDERABLES Alanna grimaldo Result [facility] ([place]) 1 [facility] Department [place] [address] * Differential, auto (08/15/2024 9:00 AM PROFESSOR OF JOURNALISM) Neutrophil abs 4.5 1.5 - 6.5 K/cumm [...] revised on 2017. Blood 08/15/2024 9:00 AM PROFESSOR OF JOURNALISM 08/15/2024 9:06 AM PROFESSOR OF JOURNALISM Gayla Malcolm MD LAB BLOOD ORDERABLES Alanna l Result [facility] ([place]) 1 [facility] Department [place] [address] * (ABNORMAL) CBC with auto differential (08/15/2024 9:00 AM PROFESSOR OF JOURNALISM) WBC 8.1 3.8 - 9.9 K/cumm Hgb [...] 47.2 35.7 - 48.1 fL [facility] ([place]) NRBC abs 0.00 0.00 - 0.01 K/cumm [facility] ([place]) Blood 08/15/2024 9:00 AM PROFESSOR OF JOURNALISM 08/15/2024 9:06 AM PROFESSOR OF JOURNALISM Gayla Malcolm MD LAB BLOOD ORDERABLES Alanna l Result Performing Organization Address [facility] Co de Phone Number [facility] ([place]) 1 [facility] CORD:[place] [address] * aPTT (08/15/2024 9:00 AM PROFESSOR OF JOURNALISM) aPTT 36 28 - 38 sec [facility] ([place]) Comment: Interpretive Data Heparin therapeutic range: 66.0 - 100.0 seconds. Range based on correlation with therapeutic heparin activity range of 0.3 - 0.7 Units/mL. Current interpretive data was last revised on 2023. Blood 08/15/2024 9:00 AM PROFESSOR OF JOURNALISM 08/15/2024 10:24 AM PROFESSOR OF JOURNALISM Narrative [facility] ([place]) - 08/15/2024 10:31 AM PROFESSOR OF JOURNALISM Baseline prior to enoxaparin initiation. Gayla Malcolm MD LAB BLOOD ORDERABLES Alanna l Result Performing Organization Address [facility] Co de Phone Number [facility] ([place]) 1 [facility] CORD:[place] [address] * Protime-INR (08/15/2024 9:00 AM PROFESSOR OF JOURNALISM) PT 12.8 9.7 - 13.0 sec [facility] ([place]) INR 1.18 0.90 - 1.20 [facility] ([place]) Comment: Interpretive data Oral anticoagulant therapeutic ranges: Venous thromboembolism prophylaxis or treatment: 2.0-3.0 CARDIOLOGY Standard range: 2.0-3.0 High-intensity range: 2.5-3.5 Refer to indication-specific guidelines for appropriate target ranges for prosthetic heart valve replacement. Current interpretive data was last revised on 2019. Blood 08/15/2024 9:00 AM PROFESSOR OF JOURNALISM 08/15/2024 10:24 AM PROFESSOR OF JOURNALISM Narrative [facility] ([place]) - 08/15/2024 10:31 AM PROFESSOR OF JOURNALISM Baseline prior to enoxaparin initiation. Gayla Malcolm MD LAB BLOOD ORDERABLES Alanna dillan Result [facility] ([place]) 1 [facility] Department [place] [address] * (ABNORMAL) Comprehensive metabolic panel (08/15/2024 9:00 AM PROFESSOR OF JOURNALISM) Sodium 146(H) 135 - 145 mmol/L Comment:Testing performed by : [address] [address] Potassium, pl 4.5 3.3 - 4.9 mmol/L [facility] ([place]) Comment:Testing performed by : [address], [address] Chloride 108 97 - 110 mmol/L [facility] ([place]) Comment:Testing performed by : [address], [address] CO2 27 22 - 32 mmol/L [facility] ([place]) Comment:Testing performed by : [address] [address] Anion gap 11 2 - 15 mmol/L [facility] ([place]) Comment:Testing performed by : [address], [address] BUN 14 6 - 25 mg/dL [facility] ([place]) Comment:Testing performed by : [address], [address] Creatinine 0.77(L) 0.80 - 1.30 mg/dL [facility] ([place]) Comment:Testing performed by : [address], [address] Glucose 98 70 - 199 mg/dL [facility] [...] 2022. Testing performed by: [facility], [address] [place] [address]., [address] Calcium 8.8 8.5 - 10.3 mg/dL [facility] ([place]) Comment:Testing performed by : [address], [address] Bilirubin, total 0.3 0.1 - 1.2 mg/dL [facility] ([place]) Comment:Testing performed by : [address], [address] Protein, pl 7.2 6.5 - 8.5 g/dL [facility] ([place]) Comment:Testing performed by : [address], [address] Albumin 3.8 3.5 - 5.0 g/dL [facility] ([place]) Comment:Testing performed by : [address] [address] Alk phos 71 40 - 130 Units/L [facility] ([place]) Comment:Testing performed by : [address], [address] ALT 17 7 - 55 Units/L [facility] ([place]) Comment:Testing performed by : [address], [address] AST 32 10 - 50 Units/L [facility] ([place]) Comment:Testing performed by : [address], [address] Blood 08/15/2024 9:00 AM PROFESSOR OF JOURNALISM 08/15/2024 9:06 AM PROFESSOR OF JOURNALISM Gayla Malcolm MD LAB BLOOD ORDERABLES Alanna grimaldo Result [facility] [place] 1 [facility] Department [place] [address] * XR Chest PA Lateral 2 Views (08/15/2024 8:49 AM PROFESSOR OF JOURNALISM) Anatomical Region Laterality Modality Body, Chest N/A Computed Radiogr aphy 08/15/2024 9:00 AM PROFESSOR OF JOURNALISM Narrative 08/15/2024 9:01 AM PROFESSOR OF JOURNALISM EXAM DESCRIPTION: XR CHEST PA LATERAL 2 [...] Amari Roberts M.D. MM: MM Report ID: [id number] Reading Location: [id number] Procedure Note Amari Roberts MD - 08/15/2024 [...] Amari Roberts M.D. MM: MM Report ID: [id number] Reading Location: [place] [address] Gayla Malcolm MD IMG XR PROCEDURES Final R esult * COLONOSCOPY (07/16/2017 7:32 AM PROFESSOR OF JOURNALISM) Anatomical Region Laterality Modality Other Narrative Procedure Note Michael Bran MD - 07/16/2017 7:32 AM CST [facility] Patient Name: Js Contreras Procedure Date: 07/16/2017 7:32 AM Date of : 1950 Admit Type: Outpatient Age: 67 Gender: Male Attending MD: Michael Gonzalez M.D. Room: [facility] ENDOSCOPY ROOM 2 Note Status: Finalized Procedure: [...] scope was passed under direct vision.The Colonoscope [id number] was introducedthrough the anus and advanced to [...] 7:32 AM Procedure Code(s): --- Professional --- 08203, Colonoscopy, flexible; with removal of tumor(s), polyp(s), or other lesion(s) by snare technique Diagnosis Code(s): --- Professional --- Z86.010, Personal history of colonic polyps K64.8, Other hemorrhoids D12.5, Benign neoplasm of sigmoid colon K57.30, Diverticulosis of large intestine without perforation orabscess without bleeding CPT copyright 2014 [employer]. All rights reserved. The codes documented in this report are preliminary and upon auditing coder reviewmay be revised to meet current compliance requirements. Recognized by the [employer] for promoting quality in endoscopy Michael Shaw MD ENDOSCOPY PROCEDUR ES Final Result from Last 3 Months or Most Recently Relevant to Health Maintenance Insurance [employer] CHOICE MEDICARE PPO Member Subscriber Plan / Payer (Ef fective 2017-Present) Name:Js Contreras Relation to Subscriber:Self Name:Js Contreras Payer ID:[id number] (NAIC) Type:MEDICARE RISK OTHER Address: [address] MEDICARE [facility] MEDICARE GENERIC RISK OTHER [employer] CHOICE MEDICARE PPO MEDICARE [facility] A[employer]NA MEDICARE GOLD [facility] UHC MEDICARE ADVANTAGE Care Teams Pharmacy Scheduler Relationship Specialty Start Date End Date Unknown, Notinfile PCP - General 07/09/23
[2024-10-17 16:09] LABS: Basophils Absolute Auto 0.1 K/mm3 (0.0-0.1); Basophils Percent Auto 0.8 % (0.2-1.2); Eosinophils Absolute Auto 0.1 K/mm3 (0-0.3); Hematocrit 40.9 % (42.0-52.0); Hemoglobin 12.1 g/dL (14.0-18.0); Immature Granulocyte Absolute 0.03 K/mm3 (0.00-0.031); Immature Granulocyte Percent A 0.3 % (0-0.5); Lymphocytes Absolute Auto 2.24 K/mm3 (0.9-3.2); Lymphocytes Percent Auto 24.8 % (18.3-44.2); Mean Corpuscular HGB Conc 29.6 g/dl (32-36); Mean Corpuscular Hemoglobin 26.3 pg (26-34); Mean Corpuscular Volume 88.9 fl (80-100); Monocytes Absolute Auto 0.6 K/mm3 (0.1-0.6); Monocytes Percent Auto 6.6 % (2.6-8.5); Neutrophils Percent Auto 66.5 % (45.5-73.1); Platelet Count Result 236 k/mm3 (150-375); Red Cell Distribution Width 15.7 % (11.5-14.5); White Blood Count 9.1 K/mm3 (4.5-10.0)
[2024-10-17 16:18] LABS: Alanine Aminotransferase 22 U/L (6-50); Albumin Level 3.8 g/dL (3.5-5.1); Alkaline Phosphatase 76 U/L (38-126); Anion Gap 8 mmol/L (4-12); Aspartate Amino Transferase 32 U/L (17-59); Bilirubin,Total 0.7 mg/dL (0.2-1.3); Blood Urea Nitrogen 22 mg/dL (9-20); Calcium 8.3 mg/dL (8.4-10.2); Carbon Dioxide 29 mmol/L (22-30); Chloride 101 mmol/L (98-107); Estimated CRCL calculation 68 ml/min; Estimated Glomerular Filt Rate > 60; Glucose 142 mg/dL (65-110); Potassium 3.9 mmol/L (3.4-5.0); Sodium 138 mmol/L (137-145)
[2024-10-17 16:29] LABS: INR 1.2; Partial Thromboplastin Time 34.4 Seconds (22.3-36.8); Prothrombin Time 15.6 Seconds (11.1-14.7)
[2024-10-17 16:31] LABS: Anisocytosis 1+; Burr Cells 1+; Hypochromasia 1+; Platelet Estimate Adequate (Adequate); Schistocytes None Seen
[2024-10-17 16:32] LABS: NT Pro B Type Natriuretic Pept 12600 pg/mL (19.9-100)
[2024-10-17 16:38] VITALS: RESP 20
[2024-10-17 16:40] VITALS: PULSE 98; RESP 21; O2SAT 97
[2024-10-17 16:42] VITALS: PULSE 98
[2024-10-17] MEDS: FUROSEMIDE INJ 40 MG/4 ML VIAL IV PUSH (18:23)
== END 2024-10-17 19:36 | disposition home or self-care (01) ==
PROVIDERS: Physician Assistant; Emergency Provider Emergency Medicine
DX: I50.9 Heart failure, unspecified (principal); Z91.148 Patient's other noncompliance with medication regimen for other reason; Z79.82 Long term (current) use of aspirin; E78.5 Hyperlipidemia, unspecified; E55.9 Vitamin D deficiency, unspecified; I11.0 Hypertensive heart disease with heart failure; I48.91 Unspecified atrial fibrillation
CPT/HCPCS: 36415; 71046; 74018; 80053; 83880; 85025; 85610; 85730; 93005; 93970; 96374; 99284; J1938

== ENCOUNTER 2024-10-20 13:49 | Observation (INO) | payer MEDICARE, OTHER, SELFPAY ==
[2024-10-20] VITALS (18 sets, daily range): BP systolic 130–154; BP diastolic 84–114; PULSE 63–72; RESP 16–31; TEMP 36.4–36.6; O2SAT 90–100; BMI 27.7
--- NOTE | ~2024-10-20 | US_ITS ---
EXAMINATION: US renal BI DATE: 10/21/2024 10:29 INDICATION: Acute renal insufficiency TECHNIQUE: Multiple ultrasound grayscale images of the kidneys were obtained. COMPARISON: None. FINDINGS: The right kidney measures 12.1 x 5.9 x 6.4 cm. The left kidney measures 11.0 x 7.0 x 6.5 cm. The kidn eys demonstrate normal echogenicity. 1.9 cm anechoic cyst at the right kidney. There is no hydronephr osis in either kidney. No stones identified. The bladder is normal with bilateral ureteral jets visu alized on color Doppler. IMPRESSION: 1. 1.9 cm right renal cyst. Otherwise normal kidneys without hydronephrosis. Reviewed, dictated and finalized at location B.
--- NOTE | ~2024-10-20 | XR_ITS ---
XR chest 2V Ordering provider: Tae Ingram MD History: 74 years Male with . weakness, SOB . Comparison: October 17, 2024 FINDINGS: MEDIASTINUM: The cardiac silhouette is not enlarged. Congestive ezequiel. LUNGS: No pneumothorax. Left basilar atelectasis versus pneumonia with pleural effusion is again demo nstrated and appear unchanged. Minimal atelectasis versus pneumonia in the right lung base seen medially OTHER: No free air under the diaphragm. IMPRESSION: No change from previous examination. Reviewed, dictated and finalized at location A.
--- OUTSIDE RECORDS SUMMARY | 2024-10-20 13:51 | XMS_ITS | Clinical Summary ---
Author Organization [facility] Address [address] [place] [address] Phone Care Team Providers Care Volunteer Coordinator Name Role Phone Chris Tolentino MD Unavailable [...] Covid-19 Vaccine, Vector-nr, Rs-ad26, Pf, 0.5 Ml ([employer]) 08/23/2020 Hepatitis A And Hepatitis B Vaccine [...] topic Insurance MEDICARE C HUMANA Care Teams Volunteer Coordinator Relationship Specialty Start Date End Date Provider, None [place] PCP - General 05/10/21 Chris Tolentino MD Consulting Physician Orthopaedic Sports Medicine 04/07/18 Terra Pineda MD [address] [address] Consulting Physician Internal Medicine 04/07/18
--- NOTE | 2024-10-20 13:52 | ECG_ITS ---
Test Date: 2024-10-20 13:55:37 Measurements Intervals [place] Rate: 62 P: 28 MA: 162 QRS: 126 QRSD: 154 T: 216 QT: 482 QTc: 492 Interpretive Statements SINUS RHYTHM POSSIBLE LEFT ATRIAL ENLARGEMENT [-0.1mV P WAVE IN V1/V2] MARKED RIGHT AXIS DEVIATION [QRS AXIS > 100] RIGHT BUNDLE BRANCH BLOCK [120+ ms QRS DURATION, UPRIGHT V1, 40+ ms S IN I/aVL/V4/V5/V6] Compared to ECG 10/17/2024 15:55:09 Ventricular premature complex(es) no longer present Electronically Signed On 10-20-2024 14:16:25 CDT by Kellie Colon
[2024-10-20 14:11] LABS: Basophils Absolute Auto 0.1 K/mm3 (0.0-0.1); Eosinophils Percent Auto 0.4 % (0-4.4); Hematocrit 42.7 % (42.0-52.0); Hemoglobin 12.8 g/dL (14.0-18.0); Immature Granulocyte Absolute 0.03 K/mm3 (0.00-0.031); Immature Granulocyte Percent A 0.3 % (0-0.5); Lymphocytes Absolute Auto 2.32 K/mm3 (0.9-3.2); Lymphocytes Percent Auto 24.9 % (18.3-44.2); Mean Corpuscular Hemoglobin 26.1 pg (26-34); Mean Platelet Volume 10.2 fl (7.4-10.4); Monocytes Absolute Auto 0.7 K/mm3 (0.1-0.6); Monocytes Percent Auto 7.2 % (2.6-8.5); Neutrophils Absolute Auto 6.2 K/mm3 (1.3-6.7); Neutrophils Percent Auto 66.2 % (45.5-73.1); Platelet Count Result 309 k/mm3 (150-375); Red Blood Count 4.91 M/mm3 (4.6-6.20); Red Cell Distribution Width 15.9 % (11.5-14.5); White Blood Count 9.3 K/mm3 (4.5-10.0)
--- OUTSIDE RECORDS SUMMARY | 2024-10-20 14:27 | XMS_ITS | Clinical Summary ---
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 Scapholunate ligament injury , no instability, left, initial encounter 12/28/2017 Encounters Date Type Department Care Team Description 09/07/2024 Orders Only [facility] Medical Group Cardiology [address] [place] [address] Linda Dang MD 09/06/2024 Telephone [facility] Care Organization [address] [place] [address] Caitlin Queen MA Unsuccessful Phone Call 1 ([employer] AWV) 08/31/2024 Orders Only [facility] Medical [facility] Cardiology [address] [place] [phone] Linda Dang MD 08/30/2024 Orders Only [facility] Medical [facility] Cardiology [address] [place] [phone] Linda Dang MD 08/22/2024 5:19 PM CDT - 08/22/2024 8:28 PM CDT Emergency [facility] Emergency Department [address] [place] [address] Discharge Disposition: Left without being seen 08/15/2024 8:47 AM PUBLISHING MANAGER - 08/15/2024 3:05 PM PUBLISHING MANAGER Emergency [facility] Emergency Department [address] [place] [address] Gayla Malcolm MD Atrial fibrillation with controlled [...] on file Legal Sex Male 1:47 AM PUBLISHING MANAGER Gender Identity Not on file Sexual Orientation [...] history exists Medical Devices Implanted Type Area Health Care Attorney Device Identifier Shelf Expiration Date Model / Serial / Lot [employer] 8600-5x05 Graftjacket [id number] Regenerative Nonmesh Standard Graft - [id number] Implanted:Qty: 1 on 07/06/2018 by Kirby Rm III, MD at [facility] Left: Wrist [employer] 01/13/2020 8600-5X05 / / [id number] Procedures Procedure Name Priority Date/Time Associated [...] T HIGH-SENSITIVITY 2-HOUR Timed 08/15/2024 11:29 AM PUBLISHING MANAGER URINALYSIS AND REFLEX TO MICROSCOPIC AND CULTURE STAT 08/15/2024 11:29 AM PUBLISHING MANAGER EGFR STAT 08/15/2024 10:37 AM PUBLISHING MANAGER HEPATIC FUNCTION PANEL STAT 10:37 AM PUBLISHING MANAGER PRO B-TYPE NATRIURETIC PEPTIDE Add-On 08/15/2024 10:37 AM PUBLISHING MANAGER CREATININE STAT 08/15/2024 10:37 AM PUBLISHING MANAGER CBC WITHOUT DIFFERENTIAL STAT 08/15/2024 10:37 AM PUBLISHING MANAGER TROPONIN T HIGH-SENSITIVITY 2-HOUR Timed 08/15/2024 10:37 AM PUBLISHING MANAGER EGFR STAT 08/15/2024 9:00 AM PUBLISHING MANAGER APTT STAT 08/15/2024 9:00 AM PUBLISHING MANAGER PROTIME-INR STAT 08/15/2024 9:00 AM PUBLISHING MANAGER DIFFERENTIAL AUTO STAT 08/15/2024 9:0 0 AM PUBLISHING MANAGER TROPONIN T HIGH-SENSITIVITY SERIES (BASELINE, 2HR, 4HR, 6HR) STAT 08/15/2024 9:00 AM PUBLISHING MANAGER CBC WITH AUTO DIFFERENTIAL STAT 08/15/2024 9:00 AM PUBLISHING MANAGER COMPREHENSIVE METABOLIC PANEL STAT 08/15/2024 9:00 AM PUBLISHING MANAGER INFLUENZA A/B, RSV, AND COVID-19 PCR STAT 08/15/2024 9:00 AM PUBLISHING MANAGER XR CHEST PA LATERAL 2 VIEWS ED 08/15/2024 8:49 AM PUBLISHING MANAGER ECG 12-LEAD STAT 08/15/2024 8:26 AM PUBLISHING MANAGER COLONOSCOPY 07/16/2017 7:32 AM PUBLISHING MANAGER from Last 3 Months or Most Recently [...] LAB BLOOD ORDERABLES Final Result [facility] ([place]) 1 [facility] [place] [address] * (ABNORMAL) Pro B-type natriuretic peptide (08/22/2024 [...] ORDERABLES Final Resu lt Performing Organization Address City/[facility] [address]/ZIP Co de Phone Number [facility] ([place]) 1 [facility] [employer] [place] [place] [address] * (ABNORMAL) CBC with auto differential (08/22/2024 [...] BLOOD ORDERABLES Final Result Performing Organization Address City/[facility] [address]/ZIP Co de Phone Number [facility] ([place]) 1 [facility] [place] [employer] [place] [address] * (ABNORMAL) Manual Differential (08/22/2024 5:36 PM [...] ORDERABLES Final Result [facility] ([place]) 1 [facility] Department of Laboratories [place], [place] [id number] * Lipase (08/22/2024 5:36 PM CDT) Lipase 95 10 - 99 Units/L Blood Venous blood specimen / Unknown 08/22/2024 5:36 PM CDT 08/22/2024 5:40 PM CDT us Timo Holder MD LAB BLOOD ORDERABLES Final Result [facility] ([place]) 1 [facility] [place] [address] * Comprehensive metabolic panel (08/22/2024 5:36 PM [...] BLOOD ORDERABLES Final Result Performing Organization Address [facility] Co de Phone Number [facility] ([place]) 1 [facility] [place] [address] * (ABNORMAL) Troponin T high-sensitivity 2-hour (08/15/2024 11:29 AM PUBLISHING MANAGER) Trop T hs 26(H) <=22 ng/L Comment: Interpretive Data For further hscTnT resources including the diagnostic algorithm and an aid in interpretation, copy and paste this link: https://nrl.testcatalog.org/show/hsTrop Current Interpretive Data last revised 2020. Trop T hs delta See Comment ng/L CE ARN[facility] ([place]) Comment:unable to calculate Trop T hs pct delta See Comment % [facility] ([place]) Comment:unable to calculate Trop T hs interp See Comment C ERNZULLY [facility] ([place]) Comment:unable to calculate Blood 08/15/2024 11:2 9 AM PUBLISHING MANAGER 08/15/2024 11:31 AM PUBLISHING MANAGER Gayla Malcolm MD LAB BLOOD ORDERABLES Alanna l Result Performing Organization Address [facility] Co de Phone Number [facility] ([place]) 1 [facility] [place] [address] * Urinalysis reflex to microscopic and culture Urine (08/15/2024 11:29 AM PUBLISHING MANAGER) Color, ur Straw Yellow Clarity, ur Clear Clear [facility] ([place]) Specific gravity, ur 1.008 1.003 - 1.030 [facility] ([place]) pH, urine 6.5 [facility] ([place]) Comment: Interpretive Data U rine pH is affected by diet, medications, systemic acid-base disturbances, and renal tubular function. pH may affect urinary stone formation. For example, urine pH below 6.0 may help reduce the tendency for calcium phosphate stones and pH greater than 6.0 may reduce the tendency for uric acid stone formation. Source: [facility] Current Interpretive Data was last revised on 2017 Protein, ur ql Negative Negative [facility] ([place]) Glucose, ur ql Negative Negative [facility] ([place]) Ketones, ur Negative Negative [facility] ([place]) Bilirubin, ur Negative Negative [facility] ([place]) Blood, ur Negative Negative [facility] ([place]) Urobilinogen, ur <2.0 <2.0 mg/dL [facility] ([place]) Nitrite, ur Negative Negative [facility] ([place]) Leukocyte esterase, ur Negative Negative [facility] ([place]) UA reflex comment Reflex conditions for microscopic UA and culture not met. [facility] ([place]) Urine 08/15/2024 11:2 9 AM PUBLISHING MANAGER 08/15/2024 11:31 AM PUBLISHING MANAGER Gayla Malcolm MD LAB MICROBIOLOGY - GENERA L ORDERABLES Final Result Performing Organization Address City/[facility] [address]/[facility] Co de Phone Number [facility] ([place]) 1 [facility] Department [place] [address] * (ABNORMAL) Troponin T high-sensitivity 2-hour (08/15/2024 10:37 AM PUBLISHING MANAGER) Trop T hs 26(H) <=22 ng/L Comment: Interpretive Data For further hscTnT resources including the diagnostic algorithm and an aid in interpretation, copy and paste this link: https://nrl.testcatalog.org/show/hsTrop Current Interpretive Data last revised 2020. Trop T hs interp See Comment C ELISA [facility] ([place]) Comment:Delta calculation an d interpretation not available. Blood 08/15/2024 10:3 7 AM PUBLISHING MANAGER 08/15/2024 10:38 AM PUBLISHING MANAGER Gayla Malcolm MD LAB BLOOD ORDERABLES Alanna l Result [facility] [place]) 1 [facility] [place] [address] * eGFR (08/15/2024 10:37 AM PUBLISHING MANAGER) eGFR >90 >=60 mL/min/1. 73 m2 Comment: [...] reviewed 2021. Blood 08/15/2024 10:3 7 AM PUBLISHING MANAGER 08/15/2024 10:39 AM PUBLISHING MANAGER us Gayla Malcolm MD LAB BLOOD ORDERABLES Alanna l Result Performing Organization Address City/[facility] [address]/ZIP Co de Phone Number [facility] ([place]) 1 [facility] [place] [place] [address] * (ABNORMAL) Pro B-type natriuretic peptide (08/15/2024 10:37 AM PUBLISHING MANAGER) NT-proBNP 4,819(H) <=450 pg/mL Comment: Interpretive Comments: [...] Date: 2018. Blood 08/15/2024 10:3 7 AM PUBLISHING MANAGER 08/15/2024 10:39 AM PUBLISHING MANAGER us Gayla Malcolm MD LAB BLOOD ORDERABLES Edit ed Result - [facility] 1 [facility] Department of Laboratories [place], [place] [phone] * (ABNORMAL) CBC without differential (08/15/2024 10:37 AM PUBLISHING MANAGER) WBC 8.8 3.8 - 9.9 K/cumm Hgb [...] [facility] ([place]) Blood 08/15/2024 10:3 7 AM PUBLISHING MANAGER 08/15/2024 10:38 AM PUBLISHING MANAGER Narrative [facility] LN[facility] ([place]) - 08/15/2024 10:41 AM PUBLISHING MANAGER Baseline prior to enoxaparin initiation. Gayla Malcolm MD LAB BLOOD ORDERABLES Alanna l Result Performing Organization Address City/[facility]/ZIP Co de Phone Number [facility] ([place]) 1 [facility] [place] [address] * (ABNORMAL) Creatinine (08/15/2024 10:37 AM PUBLISHING MANAGER) Creatinine 0.72(L) 0.80 - 1.30 mg/dL Blood 08/15/2024 10:3 7 AM PUBLISHING MANAGER 08/15/2024 10:39 AM PUBLISHING MANAGER Narrative [facility] ([place]) - 08/15/2024 11:27 AM PUBLISHING MANAGER Baseline prior to enoxaparin initiation. Gayla Malcolm MD LAB BLOOD ORDERABLES Alanna l Result [facility] ([place]) 1 [facility] [place] [address] * Hepatic function panel (08/15/2024 10:37 AM PUBLISHING MANAGER) Bilirubin, total 0.3 0.1 - 1.2 mg/dL [...] [facility] ([place]) Blood 08/15/2024 10:3 7 AM PUBLISHING MANAGER 08/15/2024 10:39 AM PUBLISHING MANAGER Gayla Malcolm MD LAB BLOOD ORDERABLES Alanna l Result Performing Organization Address City/[facility] Co de Phone Number [facility] ([place]) [address] [place] [address] [place] [address] * (ABNORMAL) Troponin T high-sensitivity series (baseline, 2hr, 4hr, 6hr) (08/15/2024 9:00 AM PUBLISHING MANAGER) Pathologist [facility] Trop T hs 23(H) <=22 ng/L Comment: Interpretive Data For further hscTnT resources including the diagnostic algorithm and an aid in interpretation, copy and paste this link: https://nrl.testcatalog.org/show/hsTrop Current Interpretive Data last revised 2020. Testing performed by: [facility], [address] [place] [address]., [address] Blood 08/15/2024 9:00 AM PUBLISHING MANAGER 08/15/2024 9:06 AM PUBLISHING MANAGER Gayla Malcolm MD LAB BLOOD ORDERABLES Alanna l Result Performing Organization Address City/[facility] [address]/ZIP Co de Phone Number [facility] ([place]) [address] [place] [address] [place] [place] [address] * Influenza A/B, RSV, and COVID-19 PCR Nasopharyngeal (08/15/2024 9:00 AM PUBLISHING MANAGER) [facility] COVID-19 RNA Negative Negative Influenza A RNA Negative Negative [facility] ([place]) Influenza B RNA Negative Negative [facility] ([place]) RSV RNA Negative Negative [facility] ([place]) Comment: Interpretive data: Testing performed by [facility]. This test is performed using the e[employer]ift Xpert Xpress CoV-2/Flu/RSV plus assay. This is a multiplex, real- time reverse transcriptase PCR assay intended for the qualitative detection of nucleic acid from SARS-CoV-2, influenza A, influenza B, and respiratory syncytial virus. This assay has been cleared by the [place] Food and Drug administration. The performance characteristics have been verified by the [facility]. Results must be considered in the clinical context, and a negative result does not rule out infection. Interpretive Data last revised 2023 Nasopharyngeal 08/15/2024 9: 00 AM PUBLISHING MANAGER 08/15/2024 9:06 AM PUBLISHING MANAGER Narrative [facility] ([place]) - 08/15/2024 9:50 AM PUBLISHING MANAGER Is the Patient experiencing symptoms consistent with COVID?->Yes Gayla Malcolm MD LAB MICROBIOLOGY - GENERA L ORDERABLES Final Result [facility] ([place]) 1 [facility] [place] [address] * eGFR (08/15/2024 9:00 AM PUBLISHING MANAGER) eGFR >90 >=60 mL/min/1. 73 m2 Comment: [...] was last reviewed 2021. Testing performed by: [facility], [address] [place] [address], [place]., [address] Blood 08/15/2024 9:00 AM PUBLISHING MANAGER 08/15/2024 10:54 AM PUBLISHING MANAGER Gayla Malcolm MD LAB BLOOD ORDERABLES Alanna grimaldo Result [facility] ([place]) 1 [facility] [place] [address] * Differential, auto (08/15/2024 9:00 AM PUBLISHING MANAGER) Neutrophil abs 4.5 1.5 - 6.5 K/cumm [...] revised on 2017. Blood 08/15/2024 9:00 AM PUBLISHING MANAGER 08/15/2024 9:06 AM PUBLISHING MANAGER Gayla Malcolm MD LAB BLOOD ORDERABLES Alanna l Result [facility] ([place]) 1 [facility] [place] [address] * (ABNORMAL) CBC with auto differential (08/15/2024 9:00 AM PUBLISHING MANAGER) WBC 8.1 3.8 - 9.9 K/cumm Hgb [...] 47.2 35.7 - 48.1 fL [facility] ([place]) NRBC abs 0.00 0.00 - 0.01 K/cumm [facility] ([place]) Blood 08/15/2024 9:00 AM PUBLISHING MANAGER 08/15/2024 9:06 AM PUBLISHING MANAGER Gayla Malcolm MD LAB BLOOD ORDERABLES Alanna l Result Performing Organization Address [facility] Co de Phone Number [facility] ([place]) 1 [facility] [place] [address] * aPTT (08/15/2024 9:00 AM PUBLISHING MANAGER) aPTT 36 28 - 38 sec [facility] ([place]) Comment: Interpretive Data Heparin therapeutic range: 66.0 - 100.0 seconds. Range based on correlation with therapeutic heparin activity range of 0.3 - 0.7 Units/mL. Current interpretive data was last revised on 2023. Blood 08/15/2024 9:00 AM PUBLISHING MANAGER 08/15/2024 10:24 AM PUBLISHING MANAGER Narrative [facility] ([place]) - 08/15/2024 10:31 AM PUBLISHING MANAGER Baseline prior to enoxaparin initiation. Gayla Malcolm MD LAB BLOOD ORDERABLES Alanna l Result Performing Organization Address [facility] Co de Phone Number [facility] ([place]) 1 [facility] [place] [address] * Protime-INR (08/15/2024 9:00 AM PUBLISHING MANAGER) PT 12.8 9.7 - 13.0 sec [facility] ([place]) INR 1.18 0.90 - 1.20 [facility] ([place]) Comment: Interpretive data Oral anticoagulant therapeutic ranges: Venous thromboembolism prophylaxis or treatment: 2.0-3.0 CARDIOLOGY Standard range: 2.0-3.0 High-intensity range: 2.5-3.5 Refer to indication-specific guidelines for appropriate target ranges for prosthetic heart valve replacement. Current interpretive data was last revised on 2019. Blood 08/15/2024 9:00 AM PUBLISHING MANAGER 08/15/2024 10:24 AM PUBLISHING MANAGER Narrative [facility] ([place]) - 08/15/2024 10:31 AM PUBLISHING MANAGER Baseline prior to enoxaparin initiation. Gayla Malcolm MD LAB BLOOD ORDERABLES Alanna dillan Result [facility] ([place]) 1 [facility] [place] [address] * (ABNORMAL) Comprehensive metabolic panel (08/15/2024 9:00 AM PUBLISHING MANAGER) Sodium 146(H) 135 - 145 mmol/L Comment:Testing performed by : [address] [address] Potassium, pl 4.5 3.3 - 4.9 mmol/L [facility] ([place]) Comment:Testing performed by : [address], [address] Chloride 108 97 - 110 mmol/L [facility] ([place]) Comment:Testing performed by : [address], [address] CO2 27 22 - 32 mmol/L [facility] ([place]) Comment:Testing performed by : [address] [address] Anion gap 11 2 - 15 mmol/L [facility] ([place]) Comment:Testing performed by : [address], [address] BUN 14 6 - 25 mg/dL [facility] ([place]) Comment:Testing performed by : [address], [address] Creatinine 0.77(L) 0.80 - 1.30 mg/dL [facility] ([place]) Comment:Testing performed by : [address], [address] Glucose 98 70 - 199 mg/dL [facility] [...] was last revised 2022. Testing performed by: [facility], [address] [place] [address]., [address] Calcium 8.8 8.5 - 10.3 mg/dL [facility] ([place]) Comment:Testing performed by : [address], [address] Bilirubin, total 0.3 0.1 - 1.2 mg/dL [facility] ([place]) Comment:Testing performed by : [address], [address] Protein, pl 7.2 6.5 - 8.5 g/dL [facility] ([place]) Comment:Testing performed by : [address], [address] Albumin 3.8 3.5 - 5.0 g/dL [facility] ([place]) Comment:Testing performed by : [address] [address] Alk phos 71 40 - 130 Units/L [facility] ([place]) Comment:Testing performed by : [address], [address] ALT 17 7 - 55 Units/L [facility] ([place]) Comment:Testing performed by : [address], [address] AST 32 10 - 50 Units/L [facility] ([place]) Comment:Testing performed by : [address], [address] Blood 08/15/2024 9:00 AM PUBLISHING MANAGER 08/15/2024 9:06 AM PUBLISHING MANAGER Gayla Malcolm MD LAB BLOOD ORDERABLES Alanna grimaldo Result [facility] [place] 1 [facility] [place] [address] * XR Chest PA Lateral 2 Views (08/15/2024 8:49 AM PUBLISHING MANAGER) Anatomical Region Laterality Modality Body, Chest N/A Computed Radiogr aphy 08/15/2024 9:00 AM PUBLISHING MANAGER Narrative 08/15/2024 9:01 AM PUBLISHING MANAGER EXAM DESCRIPTION: XR CHEST PA LATERAL 2 [...] Amari Roberts M.D. MM: MM Report ID: [id number] Reading Location: [id number] Procedure Note Amari Roberts MD - 08/15/2024 [...] Amari Roberts M.D. MM: MM Report ID: [id number] Reading Location: [place] [address] Gayla Malcolm MD IMG XR PROCEDURES Final R esult * COLONOSCOPY (07/16/2017 7:32 AM PUBLISHING MANAGER) Anatomical Region Laterality Modality Other Narrative Procedure Note Michael Bran MD - 07/16/2017 7:32 AM CST [facility] Patient Name: Js Contreras Procedure Date: 07/16/2017 7:32 AM Date of : 1950 Admit Type: Outpatient Age: 67 Gender: Male Attending MD: Michael Gonzalez M.D. Room: [facility] ENDOSCOPY ROOM 2 Note Status: Finalized Procedure: [...] scope was passed under direct vision.The Colonoscope [id number] was introducedthrough the anus and advanced to [...] 7:32 AM Procedure Code(s): --- Professional --- 37677, Colonoscopy, flexible; with removal of tumor(s), polyp(s), or other lesion(s) by snare technique Diagnosis Code(s): --- Professional --- Z86.010, Personal history of colonic polyps K64.8, Other hemorrhoids D12.5, Benign neoplasm of sigmoid colon K57.30, Diverticulosis of large intestine without perforation orabscess without bleeding CPT copyright 2014 [employer]. All rights reserved. The codes documented in this report are preliminary and upon model maker firearms reviewmay be revised to meet current compliance requirements. Recognized by the [employer] for promoting quality in endoscopy Michael Shaw MD ENDOSCOPY PROCEDUR ES Final Result from Last 3 Months or Most Recently Relevant to Health Maintenance Insurance [employer] CHOICE MEDICARE PPO Member Subscriber Plan / Payer (Ef fective 2017-Present) Name:Js Contreras Relation to Subscriber:Self Name:Js Contreras Payer ID:[id number] (NAIC) Type:MEDICARE RISK OTHER Address: [address] MEDICARE [facility] MEDICARE GENERIC RISK OTHER [employer] CHOICE MEDICARE PPO MEDICARE [facility] CARE AET[employer] MEDICARE GOLD [facility] CARE U[employer] MEDICARE ADVANTAGE Care Teams Business Controller Relationship Specialty Start Date End Date Unknown, Notinfile PCP - General 07/09/23
--- OUTSIDE RECORDS SUMMARY | 2024-10-20 14:27 | XMS_ITS | Referral Summary ---
Author Organization [facility] Address [address] [place] [address] Care Team Providers Care Admeasurer Name Role Phone Unknown, Notinfile Primary Care Provider Unavail able Encounters Date Type Department Care Team Description 09/07/2024 Orders Only [facility] Medical Group Cardiology [address] [facility] [address] [place] [phone] Linda Dang MD 09/06/2024 Telephone [facility] Accountable Care Organization [address] [place] [phone] Caitlin Queen MA Unsuccessful Phone Call 1 ([employer] AWV) 08/31/2024 Orders Only [facility] Medical Group Cardiology [address] [facility] [address] [place] [phone] Linda Dang MD 08/30/2024 Orders Only [facility] Medical [facility] Cardiology [address] [facility] [address] [place] [phone] Linda Dang MD 08/22/2024 5:19 PM CDT - 08/22/2024 8:28 PM CDT Emergency [facility] Emergency Department 1 [place] [address] Discharge Disposition: Left without being seen 08/15/2024 8:47 AM MANAGER OF MEDICAL - 08/15/2024 3:05 PM MANAGER OF MEDICAL Emergency [facility] Emergency Department 1 [place] [address] Gayla Malcolm MD Atrial fibrillation with controlled [...] needed Assessment & Plan (07/23/2018 12:58 PM MANAGER OF MEDICAL): Reports compliance with wound care/splinting/hand therapy Healing [...] on file Legal Sex Male 1:47 AM MANAGER OF MEDICAL Gender Identity Not on file Sexual Orientation [...] on file Medical Devices Implanted Type Area Customer Solutions Supervisor Device Identifier Shelf Expiration Date Model / Serial / Lot Genasys 8600-5x05 Graftjacket [id number] Regenerative Nonmesh Standard Graft - [id number] Implanted:Qty: 1 on 07/06/2018 by Kirby Rm III, MD at [facility] Left: Wrist Genasys 01/13/2020 8600-5X05 / / [id number] Procedures Procedure Name Priority Date/Time Associated [...] T HIGH-SENSITIVITY 2-HOUR Timed 08/15/2024 11:29 AM MANAGER OF MEDICAL URINALYSIS AND REFLEX TO MICROSCOPIC AND CULTURE STAT 08/15/2024 11:29 AM MANAGER OF MEDICAL EGFR STAT 08/15/2024 10:37 AM MANAGER OF MEDICAL HEPATIC FUNCTION PANEL STAT 10:37 AM MANAGER OF MEDICAL PRO B-TYPE NATRIURETIC PEPTIDE Add-On 08/15/2024 10:37 AM MANAGER OF MEDICAL CREATININE STAT 08/15/2024 10:37 AM MANAGER OF MEDICAL CBC WITHOUT DIFFERENTIAL STAT 08/15/2024 10:37 AM MANAGER OF MEDICAL TROPONIN T HIGH-SENSITIVITY 2-HOUR Timed 08/15/2024 10:37 AM MANAGER OF MEDICAL EGFR STAT 08/15/2024 9:00 AM MANAGER OF MEDICAL APTT STAT 08/15/2024 9:00 AM MANAGER OF MEDICAL PROTIME-INR STAT 08/15/2024 9:00 AM MANAGER OF MEDICAL DIFFERENTIAL AUTO STAT 08/15/2024 9:0 0 AM MANAGER OF MEDICAL TROPONIN T HIGH-SENSITIVITY SERIES (BASELINE, 2HR, 4HR, 6HR) STAT 08/15/2024 9:00 AM MANAGER OF MEDICAL CBC WITH AUTO DIFFERENTIAL STAT 08/15/2024 9:00 AM MANAGER OF MEDICAL COMPREHENSIVE METABOLIC PANEL STAT 08/15/2024 9:00 AM MANAGER OF MEDICAL INFLUENZA A/B, RSV, AND COVID-19 PCR STAT 08/15/2024 9:00 AM MANAGER OF MEDICAL XR CHEST PA LATERAL 2 VIEWS ED 08/15/2024 8:49 AM MANAGER OF MEDICAL ECG 12-LEAD STAT 08/15/2024 8:26 AM MANAGER OF MEDICAL COLONOSCOPY 07/16/2017 7:32 AM MANAGER OF MEDICAL from Last 3 Months or Most Recently [...] MD LAB BLOOD ORDERABLES Final Result [facility] 1 [facility] Department of Laboratories [place], [place] [id number] * (ABNORMAL) Pro B-type natriuretic peptide (08/22/2024 [...] Final Resu lt [facility] ([facility]) 1 [facility] [place] [address] * (ABNORMAL) CBC with auto differential (08/22/2024 [...] Final Result [facility] ([facility]) 1 [facility] Department [place] [address] * (ABNORMAL) Manual Differential (08/22/2024 5:36 PM [...] ORDERABLES Final Result [facility] ([place]) 1 [facility] [place] [address] * Lipase (08/22/2024 5:36 PM CDT) Lipase 95 10 - 99 Units/L Blood Venous blood specimen / Unknown 08/22/2024 5:36 PM CDT 08/22/2024 5:40 PM CDT Timo Holder MD LAB BLOOD ORDERABLES Final Result Performing Organization Address City/Va Hospital/ZIP Co de Phone Number [facility] ([place]) 1 [facility] [place] [address] * Comprehensive metabolic panel (08/22/2024 5:36 PM CDT) Sodium 141 135 - 145 mmol/L Potassium, pl 4.6 3.3 - 4.9 mmol/L [facility] ([facility]) Chloride 99 97 - 110 mmol/L [facility] ([facility]) CO2 31 22 - 32 mmol/L [facility]) Anion gap 11 2 - 15 mmol/L [facility] ([facility]) BUN 19 6 - 25 mg/dL [facility] Creatinine 0.82 0.80 - 1.30 mg/dL [facility] ([facility]) Glucose 98 70 - 199 mg/dL [facility] ([facility]) Comment: Interpretive Data Fasting glucose [...] BLOOD ORDERABLES Final Result Performing Organization Address [facility]/Va Hospital/[facility] Co de Phone Number [facility] 1 [facility] [place] [place] [address] * (ABNORMAL) Troponin T high-sensitivity 2-hour (08/15/2024 11:29 AM MANAGER OF MEDICAL) Trop T hs 26(H) <=22 ng/L Comment: [...] to calculate Blood 08/15/2024 11:2 9 AM MANAGER OF MEDICAL 08/15/2024 11:31 AM MANAGER OF MEDICAL us Gayla Malcolm MD LAB BLOOD ORDERABLES Alanna l Result Performing Organization Address [facility]/Va Hospital/ZIP Co de Phone Number [facility] ([facility] 1 [facility] [place] [address] * Urinalysis reflex to microscopic and culture Urine (08/15/2024 11:29 AM MANAGER OF MEDICAL) Color, ur Straw Yellow Clarity, ur Clear [...] for uric acid stone formation. Source: [facility] [place] Current Interpretive Data was last revised on [...] [facility]) Urine 08/15/2024 11:2 9 AM MANAGER OF MEDICAL 08/15/2024 11:31 AM MANAGER OF MEDICAL us Gayla Malcolm MD LAB MICROBIOLOGY - GENERA L ORDERABLES Final Result [facility] 1 [facility] Department [place] [address] * (ABNORMAL) Troponin T high-sensitivity 2-hour (08/15/2024 10:37 AM MANAGER OF MEDICAL) Trop T hs 26(H) <=22 ng/L Comment: Interpretive Data For further hscTnT resources including the diagnostic algorithm and an aid in interpretation, copy and paste this link: https://nrl.testcatalog.org/show/hsTrop Current Interpretive Data last revised 2020. Trop T hs interp See Comment C ELISA [facility] ([place]) Comment:Delta calculation an d interpretation not available. Blood 08/15/2024 10:3 7 AM MANAGER OF MEDICAL 08/15/2024 10:38 AM MANAGER OF MEDICAL Gayla Malcolm MD LAB BLOOD ORDERABLES Alanna l Result Performing Organization Address City/Va Hospital/[facility] Co de Phone Number [facility] ([place]) 1 [facility] [place] [address] * eGFR (08/15/2024 10:37 AM MANAGER OF MEDICAL) eGFR >90 >=60 mL/min/1. 73 m2 Comment: [...] reviewed 2021. Blood 08/15/2024 10:3 7 AM MANAGER OF MEDICAL 08/15/2024 10:39 AM MANAGER OF MEDICAL Gayla Malcolm MD LAB BLOOD ORDERABLES Alanna l Result Performing Organization Address [facility]/Va Hospital/ZIP Co de Phone Number [facility] ([place]) 1 [facility] [employer] [place] [address] * (ABNORMAL) Pro B-type natriuretic peptide (08/15/2024 10:37 AM MANAGER OF MEDICAL) NT-proBNP 4,819(H) <=450 pg/mL Comment: Interpretive Comments: [...] Date: 2018. Blood 08/15/2024 10:3 7 AM MANAGER OF MEDICAL 08/15/2024 10:39 AM MANAGER OF MEDICAL us Gayla Malcolm MD LAB BLOOD ORDERABLES Edit ed Result - Final [facility] 0 [facility] Department [place] [address] * (ABNORMAL) CBC without differential (08/15/2024 10:37 AM MANAGER OF MEDICAL) WBC 8.8 3.8 - 9.9 K/cumm Hgb [...] [facility] ([facility]) Blood 08/15/2024 10:3 7 AM MANAGER OF MEDICAL 08/15/2024 10:38 AM MANAGER OF MEDICAL Narrative [facility] ([facility]) - 08/15/2024 10:41 AM MANAGER OF MEDICAL Baseline prior to enoxaparin initiation. Gayla Malcolm MD LAB BLOOD ORDERABLES Alanna l Result [facility] ([place]) 1 [facility] Department [place] [address] * (ABNORMAL) Creatinine (08/15/2024 10:37 AM MANAGER OF MEDICAL) Creatinine 0.72(L) 0.80 - 1.30 mg/dL Blood 08/15/2024 10:3 7 AM MANAGER OF MEDICAL 08/15/2024 10:39 AM MANAGER OF MEDICAL Narrative [facility] ([facility]) - 08/15/2024 11:27 AM MANAGER OF MEDICAL Baseline prior to enoxaparin initiation. Gayla Malcolm MD LAB BLOOD ORDERABLES Alanna l Result Performing Organization Address City/Va Hospital/ZIP Co de Phone Number [facility] ([facility] 1 [place] [address] * Hepatic function panel (08/15/2024 10:37 AM MANAGER OF MEDICAL) Bilirubin, total 0.3 0.1 - 1.2 mg/dL Bilirubin, direct 0.1 0.1 - 0.3 mg/dL [facility] ([facility]) Protein, pl 6.9 6.5 - 8.5 g/dL [facility] ([place]) Albumin 3.8 3.5 - 5.0 g/dL [facility] ([facility]) Alk phos 69 40 - 130 Units/L [facility] ([place]) ALT 14 7 - 55 Units/L [facility] AST 21 10 - 50 Units/L [facility]) Blood 08/15/2024 10:3 7 AM MANAGER OF MEDICAL 08/15/2024 10:39 AM MANAGER OF MEDICAL Gayla Malcolm MD LAB BLOOD ORDERABLES Alanna l Result Performing Organization Address [facility] Hospital/[facility] Co de Phone Number [facility] ([facility] 1 [place] [address] * (ABNORMAL) Troponin T high-sensitivity series (baseline, 2hr, 4hr, 6hr) (08/15/2024 9:00 AM MANAGER OF MEDICAL) Pathologist [facility] Trop T hs 23(H) <=22 ng/L Comment: Interpretive Data For further hscTnT resources including the diagnostic algorithm and an aid in interpretation, copy and paste this link: https://nrl.testcatalog.org/show/hsTrop Current Interpretive Data last revised 2020. Testing performed by: [facility], [address] [place] [address], [place]., [address] Blood 08/15/2024 9:00 AM MANAGER OF MEDICAL 08/15/2024 9:06 AM MANAGER OF MEDICAL Gayla Malcolm MD LAB BLOOD ORDERABLES Alanna l Result [facility] 1 [facility] [place] [address] * Influenza A/B, RSV, and COVID-19 PCR Nasopharyngeal (08/15/2024 9:00 AM MANAGER OF MEDICAL) Pathologist [facility] COVID-19 RNA Negative Negative Influenza A RNA Negative Negative [facility] ([facility]) Influenza B RNA Negative Negative [facility] ([facility]) RSV RNA Negative Negative [facility] ([facility]) Comment: Interpretive data: Testing performed by [facility]. This test is performed using the [employer] Xpert Xpress CoV-2/Flu/RSV plus assay. This is a multiplex, real- time reverse transcriptase PCR assay intended for the qualitative detection of nucleic acid from SARS-CoV-2, influenza A, influenza B, and respiratory syncytial virus. This assay has been cleared by the [place] Food and Drug administration. The performance characteristics have been verified by the [facility]. Results must be considered in the clinical context, and a negative result does not rule out infection. Interpretive Data last revised 2023 Nasopharyngeal 08/15/2024 9: 00 AM MANAGER OF MEDICAL 08/15/2024 9:06 AM MANAGER OF MEDICAL Narrative [facility] ([facility] - 08/15/2024 9:50 AM MANAGER OF MEDICAL Is the Patient experiencing symptoms consistent with COVID?->Yes Gayla Malcolm MD LAB MICROBIOLOGY - GENERA L ORDERABLES Final Result [facility] ([facility] 1 [facility] [place] [address] * eGFR (08/15/2024 9:00 AM MANAGER OF MEDICAL) [facility] eGFR >90 >=60 mL/min/1. 73 m2 Comment: [...] was last reviewed 2021. Testing performed by: [facility], [address] [place] [address], [place]., [address] Blood 08/15/2024 9:00 AM MANAGER OF MEDICAL 08/15/2024 10:54 AM MANAGER OF MEDICAL Gayla Malcolm MD LAB BLOOD ORDERABLES Alanna grimaldo Result [facility] 1 [facility] Department [place] [address] * Differential, auto (08/15/2024 9:00 AM MANAGER OF MEDICAL) Neutrophil abs 4.5 1.5 - 6.5 K/cumm [...] revised on 2017. Blood 08/15/2024 9:00 AM MANAGER OF MEDICAL 08/15/2024 9:06 AM MANAGER OF MEDICAL us Gayla Malcolm MD LAB BLOOD ORDERABLES Alanna grimaldo Result [facility] ([facility] 1 [facility] [place] [address] * (ABNORMAL) CBC with auto differential (08/15/2024 9:00 AM MANAGER OF MEDICAL) WBC 8.1 3.8 - 9.9 K/cumm Hgb [...] [facility] ([facility]) Blood 08/15/2024 9:00 AM MANAGER OF MEDICAL 08/15/2024 9:06 AM MANAGER OF MEDICAL Gayla Malcolm MD LAB BLOOD ORDERABLES Alanna l Result Performing Organization Address [facility] Hospital/[facility] Co de Phone Number [facility] ([place]) 1 [facility] [employer] [place] [address] * aPTT (08/15/2024 9:00 AM MANAGER OF MEDICAL) aPTT 36 28 - 38 sec [facility] ([place]) Comment: Interpretive Data Heparin therapeutic range: 66.0 - 100.0 seconds. Range based on correlation with therapeutic heparin activity range of 0.3 - 0.7 Units/mL. Current interpretive data was last revised on 2023. Blood 08/15/2024 9:00 AM MANAGER OF MEDICAL 08/15/2024 10:24 AM MANAGER OF MEDICAL Narrative [facility] ([place]) - 08/15/2024 10:31 AM MANAGER OF MEDICAL Baseline prior to enoxaparin initiation. Gayla Malcolm MD LAB BLOOD ORDERABLES Alanna l Result Performing Organization Address City/Va Hospital/ZIP Co de Phone Number [facility] ([facility] 1 [facility] [employer] [address] * Protime-INR (08/15/2024 9:00 AM MANAGER OF MEDICAL) PT 12.8 9.7 - 13.0 sec [facility] ([place]) INR 1.18 0.90 - 1.20 [facility] ([place]) Comment: Interpretive data Oral anticoagulant therapeutic ranges: Venous thromboembolism prophylaxis or treatment: 2.0-3.0 CARDIOLOGY Standard range: 2.0-3.0 High-intensity range: 2.5-3.5 Refer to indication-specific guidelines for appropriate target ranges for prosthetic heart valve replacement. Current interpretive data was last revised on 2019. Blood 08/15/2024 9:00 AM MANAGER OF MEDICAL 08/15/2024 10:24 AM MANAGER OF MEDICAL Narrative [facility] ([place]) - 08/15/2024 10:31 AM MANAGER OF MEDICAL Baseline prior to enoxaparin initiation. Gayla Malcolm MD LAB BLOOD ORDERABLES Alanna grimaldo Result [facility] ([place]) 1 [facility] Department [place] [address] * (ABNORMAL) Comprehensive metabolic panel (08/15/2024 9:00 AM MANAGER OF MEDICAL) Pathologist [facility] Sodium 146(H) 135 - 145 mmol/L Comment:Testing performed by : [address] [address] Potassium, pl 4.5 3.3 - 4.9 mmol/L [facility] ([place]) Comment:Testing performed by : [facility], [address] [place] [address]., [address] Chloride 108 97 - 110 mmol/L [facility] ([place]) Comment:Testing performed by : [address] [address] CO2 27 22 - 32 mmol/L [facility] ([place]) Comment:Testing performed by : [address], [address] Anion gap 11 2 - 15 mmol/L [facility] ([place]) Comment:Testing performed by : [address], [address] BUN 14 6 - 25 mg/dL [facility] ([facility]) Comment:Testing performed by : [address] [address] Creatinine 0.77(L) 0.80 - 1.30 mg/dL [facility] ([facility]) Comment:Testing performed by : [address], [address] Glucose 98 70 - 199 mg/dL [facility] [...] was last revised 2022. Testing performed by: [address], [address] Calcium 8.8 8.5 - 10.3 mg/dL [facility] ([place]) Comment:Testing performed by : [address], [address] Bilirubin, total 0.3 0.1 - 1.2 mg/dL [facility] ([place]) Comment:Testing performed by : [address], [address] Protein, pl 7.2 6.5 - 8.5 g/dL [facility] ([place]) Comment:Testing performed by : [address], [address] Albumin 3.8 3.5 - 5.0 g/dL [facility] ([place]) Comment:Testing performed by : [address], [address] Alk phos 71 40 - 130 Units/L [facility] ([facility]) Comment:Testing performed by : [address], [address] ALT 17 7 - 55 Units/L [facility] ([facility]) Comment:Testing performed by : [address] [place] [address] AST 32 10 - 50 Units/L [facility] ([facility]) Comment:Testing performed by : [facility], [address] [place] [address]., [address] Blood 08/15/2024 9:00 AM MANAGER OF MEDICAL 08/15/2024 9:06 AM MANAGER OF MEDICAL Gayla Malcolm MD LAB BLOOD ORDERABLES Alanna l Result [facility] ([place]) 1 [facility] Department [place] [address] * XR Chest PA Lateral 2 Views (08/15/2024 8:49 AM MANAGER OF MEDICAL) Anatomical Region Laterality Modality Body, Chest N/A Computed Radiogr aphy 08/15/2024 9:00 AM MANAGER OF MEDICAL Narrative 08/15/2024 9:01 AM MANAGER OF MEDICAL EXAM DESCRIPTION: XR CHEST PA LATERAL 2 [...] Amari Roberts M.D. MM: MM Report ID: [id number] Reading Location: [id number] Procedure Note Amari Roberts MD - 08/15/2024 [...] Amari Roberts M.D. MM: MM Report ID: [id number] Reading Location: [place] [address] Gayla Malcolm MD IMG XR PROCEDURES Final R esult * COLONOSCOPY (07/16/2017 7:32 AM MANAGER OF MEDICAL) Anatomical Region Laterality Modality Other Narrative Procedure Note Michael Bran MD - 07/16/2017 7:32 AM CST [facility] Patient Name: Js Contreras Procedure Date: 07/16/2017 7:32 AM Date of : 1950 Admit Type: Outpatient Age: 67 Gender: Male Attending MD: Michael Gonzalez M.D. Room: [facility] ENDOSCOPY ROOM 2 Note Status: Finalized [...] scope was passed under direct vision.The Colonoscope [id number] was introducedthrough the anus and advanced to [...] 7:32 AM Procedure Code(s): --- Professional --- 38226, Colonoscopy, flexible; with removal of tumor(s), polyp(s), or other lesion(s) by snare technique Diagnosis Code(s): --- Professional --- Z86.010, Personal history of colonic polyps K64.8, Other hemorrhoids D12.5, Benign neoplasm of sigmoid colon K57.30, Diverticulosis of large intestine without perforation orabscess without bleeding CPT copyright 2014 [employer]. All rights reserved. The codes documented in this report are preliminary and upon label drier reviewmay be revised to meet current compliance requirements. Recognized by the [employer] for promoting quality in endoscopy Michael Shaw MD ENDOSCOPY PROCEDUR ES Final Result from Last 3 Months or Most Recently Relevant to Health Maintenance Insurance [employer] CHOICE MEDICARE PPO Member Subscriber Plan / Payer (Ef fective 2017-Present) Name:Js Contreras Relation to Subscriber:Self Name:Js Contreras Payer ID:[id number] (NAIC) Type:MEDICARE RISK OTHER Address: [address] [place] [address] [facility] MEDICARE GENERIC RISK OTHER [facility] CHOICE MEDICARE PPO MEDICARE [facility] AETNA MEDICARE GOLD [facility] MEDICARE ADVANTAGE [facility]IC[facility] Address: [address] [address] [place] [address] Care Teams Admeasurer Relationship Specialty Start Date End Date Unknown, Notinfile PCP - General 07/09/23
--- OUTSIDE RECORDS SUMMARY | 2024-10-20 14:27 | XMS_ITS | Clinical Summary ---
Author Organization [facility] Address [address] [place] [address] Phone Care Team Providers Care Hvac Sheet Metal Installer Name Role Phone Chris Tolentino MD Unavailable [...] Covid-19 Vaccine, Vector-nr, Rs-ad26, Pf, 0.5 Ml ([employer]) 08/23/2020 Hepatitis A And Hepatitis B Vaccine [...] topic Insurance MEDICARE C [employer] Care Teams Hvac Sheet Metal Installer Relationship Specialty Start Date End Date Provider, None [place] PCP - General 05/10/21 Chris Tolentino MD Consulting Physician Orthopaedic Sports Medicine 04/07/18 Terra Pineda MD [address] [address] Consulting Physician Internal Medicine 04/07/18
[2024-10-20 14:30] LABS: Add Urine Microscopic? YES; Appearance Urine Clear (Clear); Bacteria Urine None Seen /hpf; Bilirubin Urine Negative (Negative); Blood Urine Negative (Negative); Color Urine Yellow (Yellow); Glucose Urine UA Negative (Negative); Ketones Urine Negative (Negative); Leukocyte Esterase Ur Negative LEU/UL (Negative); Nitrate Urine Negative (Negative); Non Pathogenic Casts 0-2; Protein Urine Trace mg/dL (Negative); RBC Urine 0-2 /hpf (0-2); Specific Grav Ur 1.008 (1.001-1.035); Squamous Epithelial Cell Urine None Seen /hpf (Few); Urobilinogen Urine 0.2 mg/dL (<2.0); WBC Urine 0-5 /hpf (0-3); pH Urine 5.5 (5.0-9.0)
[2024-10-20 14:57] LABS: Magnesium 1.8 mg/dL (1.6-2.3)
[2024-10-20 14:58] LABS: Alanine Aminotransferase 115 U/L (6-50); Alkaline Phosphatase 121 U/L (38-126); Anion Gap 8 mmol/L (4-12); Aspartate Amino Transferase 176 U/L (17-59); Bilirubin,Total 0.6 mg/dL (0.2-1.3); Blood Urea Nitrogen 52 mg/dL (9-20); Calcium 8.6 mg/dL (8.4-10.2); Carbon Dioxide 35 mmol/L (22-30); Chloride 98 mmol/L (98-107); Estimated CRCL calculation 31 ml/min; Estimated Glomerular Filt Rate 40; Glucose 133 mg/dL (65-110); Lactic Acid Reflex 2.3 mmol/L (0.7-2.0); Potassium 3.9 mmol/L (3.4-5.0); Sodium 141 mmol/L (137-145)
--- NOTE | 2024-10-20 15:04 | PC.NURSE ---
ths RN attempts to get SpO2 on patients finger and unable to get accurate reading. then nasal sensor was applied to nostril, but pleth was not accurate. placed it on earlobe and able to get best wave form with this reading 91% on RA.
[2024-10-20 15:13] LABS: INR 1.5; Prothrombin Time 18.2 Seconds (11.1-14.7)
[2024-10-20 15:14] LABS: Partial Thromboplastin Time 33.5 Seconds (22.3-36.8)
[2024-10-20 15:15] LABS: NT Pro B Type Natriuretic Pept 17300 pg/mL (19.9-100); Troponin I 0.047 ng/mL (0.000-0.034)
[2024-10-20 15:23] LABS: Influenza A QL RT-PCR Negative (Negative); Influenza B QL RT-PCR Negative (Negative); RSV RNA, RT-PCR Negative (Negative); SARS-CoV-2 RNA PCR Negative (Negative)
--- NOTE | 2024-10-20 15:34 | ED.GENADULT ---
HPI - General Adult General Chief complaint: Weakness Stated complaint: weakness Time Seen by Provider: 10/20/24 14:12 History of Present Illness HPI narrative: Patient 74-year-old gentleman presents emergency department chief complaint of weakness and shortness of breath. Patient states that he gets short of breath whenever he exerts himself reports that he uses oxygen on a p.r.n. basis but reports that now he gets hypoxic whenever he ambulates. Related Data Home Medications ?Medication ?Instructions ?Recorded ?Confirmed ?Last Taken ?Type aspirin 81 mg chewable tablet 81 mg PO DAILY 08/23/24 09/13/24 09/03/24 09:00 History cholecalciferol (vitamin D3) 50 2,000 unit PO DAILY 08/23/24 09/13/24 09/03/24 History mcg (2,000 unit) capsule Allergies Allergy/AdvReac Type Severity Reaction Status Date / Time No Known Drug Allergies Allergy Other Verified 10/20/24 13:49 Review of Systems Review of Systems: A 10 system review of systems was completed on the patient and is negative except for what is stated in the HPI. Nursing and ancillary documentation was reviewed. [facility] Past Medical History Medical History Hypertension Hyperlipidemia Vitamin D deficiency Substance abuse Atrial fibrillation Congestive heart failure Surgical History Surgical History History of umbilical hernia repair robotic assisted repair incarcerated umbilical hernia measuring 4.5 cm, myofascial release x2 H/O hemorrhoidectomy History of appendectomy History of carpal tunnel release Family History Family History Mother Parkinson disease Father Alcohol abuse Social History Social History Social History: Lives with grand daughter (13 year old) 1 dog Smoking status: Never smoker Alcohol intake: never Substance use: current Substance use type: marijuana and crack/cocaine Other substance usage details: once in while, last used 2 weeks ago Do You Feel Safe in your Home?: Yes Lack of Transportation: No Lack of Food: Never True Current Housing: I Have Housing Concerned About Future Housing: No Difficulty Paying Gas/Electric Bills: No Difficulty Paying for Meds: No Currently Unemployed: No Education: High School Diploma/GED Difficulty w/ Childcare or Family Care: No Spiritual care concerns: No Exam Narrative: GENERAL: Well-appearing, well-nourished, and in no acute distress. HEAD: Normocephalic, atraumatic. EYES: PERRLA and EOMI. ENT: Nares clear, no rhinorrhea or epistaxis. Mucous membranes moist. NECK: Supple. CHEST: Clear to auscultation. No respiratory distress. HEART: Regular rate and rhythm. No murmur heard. Normal peripheral pulses. ABDOMEN: Soft, nontender, nondistended, normal active bowel sounds. EXTREMITIES: Normal range of motion. 1+ edema. SKIN: Warm, dry, no rash. NEURO: No focal deficits. Alert and oriented x3. PSYCH: Normal mood and affect. Course Vital Signs Vital signs: Vital Signs Temperature 36.4 C L 10/20/24 13:55 Pulse Rate 63 10/20/24 13:55 Respiratory Rate 19 10/20/24 13:55 Blood Pressure 148/96 H 10/20/24 13:55 Pulse Oximetry 93 10/20/24 13:55 Oxygen Delivery Room Air 10/20/24 13:55 Temperature 36.4 C L 10/20/24 13:55 Pulse Rate 65 10/20/24 14:40 Respiratory Rate 23 H 10/20/24 14:40 Blood Pressure 154/97 H 10/20/24 14:40 Pulse Oximetry 90 10/20/24 14:40 Oxygen Delivery Room Air 10/20/24 13:55 Medical Decision Making [facility] Narrative Medical decision making narrative: Differential diagnosis includes CHF, ACS EKG showed no acute ischemic changes Chest x-ray showed no significant change from previous chest x-ray Patient has a creatinine 1.67 lactic acid 2.3 troponin is 0.047 B[place] was [address] this is increased from his previous visit Vital Signs Vital Signs: Vital Signs Temperature 36.4 C L 10/20/24 13:55 Pulse Rate 63 10/20/24 13:55 Respiratory Rate 19 10/20/24 13:55 Blood Pressure 148/96 H 10/20/24 13:55 Pulse Oximetry 93 10/20/24 13:55 Oxygen Delivery Room Air 10/20/24 13:55 Temperature 36.4 C L 10/20/24 13:55 Pulse Rate 65 10/20/24 14:40 Respiratory Rate 23 H 10/20/24 14:40 Blood Pressure 154/97 H 10/20/24 14:40 Pulse Oximetry 90 10/20/24 14:40 Oxygen Delivery Room Air 10/20/24 13:55 Lab Data 10/20/24 14:00 10/20/24 14:40 Labs: Lab Results 10/20/24 10/20/24 10/20/24 Range/Units 14:00 14:18 14:40 WBC 9.3 (4.5-10.0) K/mm3 RBC 4.91 (4.6-6.20) M/mm3 Hgb 12.8 L (14.0-18.0) g/dL Hct 42.7 (42.0-52.0) % MCV 87.0 (80-100) fl MCH 26.1 (26-34) pg MCHC 30.0 L (32-36) g/dl RDW 15.9 H (11.5-14.5) % Plt Count 309 (150-375) k/mm3 MPV 10.2 (7.4-10.4) fl Immature Gran % (Auto) 0.3 (0-0.5) % Neut % (Auto) 66.2 (45.5-73.1) % Lymph % (Auto) 24.9 (18.3-44.2) % [place] % (Auto) 7.2 (2.6-8.5) % Eos % (Auto) 0.4 (0-4.4) % Baso % (Auto) 1.0 (0.2-1.2) % Lymph # (Auto) 2.32 (0.9-3.2) K/mm3 [place] # (Auto) 0.7 H (0.1-0.6) K/mm3 Eos # (Auto) 0.0 (0-0.3) K/mm3 Baso # (Auto) 0.1 (0.0-0.1) K/mm3 Abs Immat Gran (auto) 0.03 (0.00-0.031) K/mm3 Absolute Neuts (auto) 6.2 (1.3-6.7) K/mm3 Absolute Nucleated RBC 0.000 (0.0-0.012) K/mm3 Nucleated RBC % 0.0 (0.0-0.2) % PT 18.2 H (11.1-14.7) Seconds INR 1.5 APTT 33.5 (22.3-36.8) Seconds Sodium 141 (137-145) mmol/L Potassium 3.9 (3.4-5.0) mmol/L Chloride 98 (98-107) mmol/L Carbon Dioxide 35 H (22-30) mmol/L Anion Gap 8 (4-12) mmol/L BUN 52 H D (9-20) mg/dL Creatinine 1.67 H (0.7-1.3) mg/dL Estim Creat Clear Calc 31 ml/min Estimated GFR 40 L (59 - ) Glucose 133 H (65-110) mg/dL Lactic Acid 2.3 H (0.7-2.0) mmol/L Calcium 8.6 (8.4-10.2) mg/dL Magnesium 1.8 (1.6-2.3) mg/dL Total Bilirubin 0.6 (0.2-1.3) mg/dL AST 176 H (17-59) U/L ALT 115 H (6-50) U/L Alkaline Phosphatase 121 (38-126) U/L Troponin I 0.047 H* (0.000-0.034) ng/mL NT-Pro-B Natriuret Pep 63059 H (19.9-100) pg/mL Total Protein 8.0 (6.3-8.2) g/dL Albumin 4.0 (3.5-5.1) g/dL Procalcitonin Pending Urine Color Yellow (Yellow) Urine Appearance Clear (Clear) Urine pH 5.5 (5.0-9.0) Ur Specific [place] 1.008 (1.001-1.035) Urine Protein Trace (Negative) mg/dL Urine Glucose (UA) Negative (Negative) mg/dL Urine Ketones Negative (Negative) mg/dL Ur Blood (Man) Negative (Negative) Urine Nitrate Negative (Negative) Urine Bilirubin Negative (Negative) Urine Urobilinogen 0.2 (<2.0) mg/dL Leukocyte Esterase Rfl Negative (Negative) VIKA/UL Urine RBC 0-2 (0-2) /hpf Urine WBC 0-5 (0-3) /hpf Ur Squamous Epith Cells None seen (Few) /hpf Urine Bacteria None seen /hpf Urine Casts 0-2 Influenza A (RT-PCR) Negative (Negative) Influenza B (RT-PCR) Negative (Negative) RSV (RT-PCR) Negative (Negative) SARS-CoV-2 RNA (RT-PCR) Negative (Negative) Discharge Plan Discharge Clinical Impression: Acute exacerbation of CHF (congestive heart failure), Elevated troponin Patient Disposition: Still a Patient Condition: Stable Patient Language: [place] Prescriptions: No Action aspirin 81 mg tablet,chewable 81 mg PO DAILY cholecalciferol (vitamin D3) 50 mcg (2,000 unit) capsule 2,000 unit PO DAILY furosemide 40 mg Tablet 40 mg PO DAILY Qty: 30 1RF metoprolol succinate [Toprol XL] 100 mg Tablet Extended Release 24 Hr 100 mg PO QAM Qty: 60 0RF potassium chloride 20 mEq Packet 20 meq PO DAILY Qty: 30 0RF rosuvastatin [Crestor] 20 mg tablet 10 mg PO HS Qty: 30 0RF albuterol sulfate [Ventolin HFA] 90 mcg/actuation HFA aerosol inhaler 1 inh inhalation QID PRN (Reason: shortness of breath or wheezing) Qty: 8.5 2RF Follow-up/Referrals: [facility] [Primary Care Provider] - Time of Disposition: 15:57
[2024-10-20] MEDS: FUROSEMIDE INJ 40 MG/4 ML VIAL IV PUSH (15:45)
[2024-10-20] MEDS: ASPIRIN 81 MG CHEWABLE TABLET 324 MG PO (15:45)
--- NOTE | 2024-10-20 15:49 | PC.NURSE ---
pt reports they took 81mg aspirin prior to arrival
--- NOTE | 2024-10-20 15:58 | P.HP_ITS ---
H&P: HPI History of Present Illness Date/Time: 10/20/24 15:58 Chief Complaint: Weakness Narrative: 74 y/o M with PMH of CHF, HTN, HLD, vitamin-D deficiency, and atrial fibrillation presents here with generalized weakness and exertional SOB. The patient presents here from home on 10/20 for further evaluation of generalized weakness. He was initially evaluated on Thursday, 10/17. He was screened for DVT which was negative. Found to have an elevated BNP and hypoxia with ambulation. He reported he had stopped his diuretic for his CHF, off of medication for about a week. He was offered admission, he declined and elected to go home with strict return precautions. He was instructed to restart his diuretic. Returning today due to worsening shortness of breath with exertion and generalized weakness. He reports he has restarted his diuretic since that ER evaluation. He denies accompanying dysuria, change in UOP, chest pain, dizziness, or palpitations. Reports lower extremity edema - present for the past month. Initial VS at presentation: 97.5? F, HR 63, RR 19, 148/96, and 93% on RA. ED workup showed: No leukocytosis, hemoglobin 12.8 (previously 12.1 on 10/17), creatinine 1.67 and GFR 40 (previously 0.73 and GFR >60 on 10/17), lactic 2.3, troponin 0.047, BNP 03136, UA unremarkable, and viral PCR negative. CXR showed no change from previous exam. EKG showed sinus rhythm, rate 62, marked right axis deviation, RBBB. Review of Systems Review of Systems: All systems reviewed & are unremarkable except as noted in HPI and below [facility] Past Medical History Medical History Eczema Sleep apnea Hypertension Hyperlipidemia Vitamin D deficiency Substance abuse Atrial fibrillation Congestive heart failure Surgical History Surgical History History of umbilical hernia repair robotic assisted repair incarcerated umbilical hernia measuring 4.5 cm, evelyn fascial release x2 H/O hemorrhoidectomy History of appendectomy History of carpal tunnel release Family History Family History Mother Parkinson disease Father Alcohol abuse Social History Social History Social History: Lives with grand daughter (13 year old) 1 dog Smoking status: Never smoker Second hand tobacco smoke exposure: Yes Alcohol intake: current Drinks per week: 2 Substance use: never Substance use type: marijuana and crack/cocaine Other substance usage details: once in while, last used 2 weeks ago Do You Feel Safe in your Home?: Yes Lack of Transportation: No Lack of Food: Never True Current Housing: I Have Housing Concerned About Future Housing: No Difficulty Paying Gas/Electric Bills: No Difficulty Paying for Meds: No Currently Unemployed: No Education: High School Diploma/GED Difficulty w/ Childcare or Family Care: No Spiritual care concerns: No Meds Home Medications and Allergies Home Medications ?Medication ?Instructions ?Recorded ?Confirmed ?Type aspirin 81 mg chewable tablet 81 mg PO DAILY 08/23/24 10/20/24 History cholecalciferol (vitamin D3) 50 2,000 unit PO DAILY 08/23/24 10/20/24 History mcg (2,000 unit) capsule albuterol sulfate 90 mcg/actuation 1 inh inhalation QID PRN shortness 08/28/24 10/20/24 Rx aerosol inhaler (Ventolin HFA) of breath or wheezing #8.5 grams furosemide 40 mg tablet 40 mg PO DAILY #30 tabs 08/28/24 10/20/24 Rx metoprolol succinate 100 mg 100 mg PO QAM #60 tabs 08/28/24 10/20/24 Rx tablet,extended release 24 hr (Toprol XL) potassium chloride 20 mEq oral 20 meq PO DAILY #30 ea 08/28/24 10/20/24 Rx packet rosuvastatin 20 mg tablet (Crestor) 10 mg (1/2 x 20 mg) PO HS #30 tabs 08/28/24 10/20/24 Rx Allergies Allergy/AdvReac Type Severity Reaction Status Date / Time No Known Drug Allergies Allergy Other Verified 10/20/24 13:49 Vital Signs Vital Signs - 24 hr 10/20/24 13:55 10/20/24 13:55 10/20/24 14:40 Temperature 97.5 F L Pulse Rate 63 65 Respiratory Rate 19 23 H Blood Pressure 148/96 H 154/97 H Pulse Oximetry 93 93 90 Oxygen Delivery Room Air Room Air 10/20/24 14:46 05/08/25 15:01 10/20/24 15:16 Temperature Pulse Rate 67 68 69 Respiratory Rate 29 H 30 H 21 H Blood Pressure 149/92 H 151/84 H 145/96 H Pulse Oximetry 91 93 92 Oxygen Delivery 10/20/24 15:31 Temperature Pulse Rate 69 Respiratory Rate 31 H Blood Pressure 152/98 H Pulse Oximetry 92 Oxygen Delivery Exam Narrative: 1+ pitting edema to BLE/ankles, symm. di minsihed in bases. mild exertional SOB noted during interview - walked approx 10 steps will talking and was mildly winded. resolved with rest. Const: General: comfortable Other: , male, nontoxic appearance. Mild respiratory distress noted with mild exertion and conversation, remained comfortable and resolved quickly. HENMT: Face/Nose/Sinus: Normal nares present Mouth: Yes moist mucous membranes Eyes: General: appearance normal, both eyes and all related structures Sclera: sclerae normal Pupils: Equal, round and reactive pupils present EOM: EOMs intact bilaterally Resp: Effort & Inspection: normal respiratory effort Other: Diminished at bases Cardio: Rate: regular rate Rhythm: regular rhythm Other: S1-S2 present without murmur, rub, ectopy GI: Other: Abdomen soft, nondistended, nontender. Normoactive bowel sounds in all quadrants. Skin: General skin exam: normal color and no rashes or lesions noted Wounds: no wounds Neuro: Speech: normal speech Motor exam (neuro): 5/5 motor strength present throughout Sensory Exam: normal sensation Other: A&O x4 Extrem: General: normal to inspection Psych: Mental Status: mental status grossly normal Affect: normal affect Other: Good insight and judgment, pleasant H&P: Results Labs Labs: Short CBC 10/20/24 Range/Units 14:00 WBC 9.3 (4.5-10.0) K/mm3 Hgb 12.8 L (14.0-18.0) g/dL Hct 42.7 (42.0-52.0) % Plt Count 309 (150-375) k/mm3 BMP 10/20/24 14:40 Sodium 141 Potassium 3.9 Chloride 98 Carbon Dioxide 35 H BUN 52 H D Creatinine 1.67 H Glucose 133 H Calcium 8.6 Cardiac Enzymes 10/20/24 Range/Units 14:40 Troponin I 0.047 H* (0.000-0.034) ng/mL Liver Function 10/20/24 Range/Units 14:40 Total Bilirubin 0.6 (0.2-1.3) mg/dL AST 176 H (17-59) U/L ALT 115 H (6-50) U/L Alkaline Phosphatase 121 (38-126) U/L Albumin 4.0 (3.5-5.1) g/dL Urine 10/20/24 Range/Units 14:18 Urine Color Yellow (Yellow) Urine Appearance Clear (Clear) Urine pH 5.5 (5.0-9.0) Ur Specific [place] 1.008 (1.001-1.035) Urine Protein Trace (Negative) mg/dL Urine Glucose (UA) Negative (Negative) mg/dL Assessment and Plan Assessment and plan (1) Acute kidney injury: Code(s): N17.9 - Acute kidney failure, unspecified Status: Acute Assessment and Plan: - creatinine 1.67, BUN 52, GFR 40. Previously 0.73, BUN 22, and GFR >60. - check CK, urine sodium, protein/creatinine, urine creatinine, urea, urine osmolality, osmolality - renal US - UA unremarkable - monitor I&Os - consider nephrology consultation and postvoid residual if no improvement with diuresis. Volume overload r/t CHF exacerbation vs injury secondary to re- initiation of diuretic. Will treat as CHF exacerbation and monitor renal function closely. (2) Acute exacerbation of CHF (congestive heart failure): Qualifiers: Heart failure type: combined systolic and diastolic Qualified Code(s): I50.43 - Acute on chronic combined systolic (congestive) and diastolic (congestive) heart failure Code(s): I50.9 - Heart failure, unspecified Status: Acute Assessment and Plan: - BNP 31089 - most recent echo (08/23/24): Estimated EF 40-45%, systolic function mildly reduced, grade 1 diastolic dysfunction, pulmonary hypertension. See report for full details. - currently on Lasix 40 mg p.o. daily -> Lasix 20 mg IV b.i.d. - monitor I&Os and daily weights - trend renal function (3) Elevated troponin: Code(s): R79.89 - Other specified abnormal findings of blood chemistry Status: Acute Assessment and Plan: - troponin: 0.047 -> 0.052, 6 hour ordered - denies active chest pain, reporting generalized weakness. Suspect mild elevations secondary to volume overload -> increasing diuretic. - nitro SL p.r.n. - telemetry monitoring and admit to IMU (4) Atrial fibrillation: Qualifiers: Atrial fibrillation type: unspecified Qualified Code(s): I48.91 - Unspecified atrial fibrillation Code(s): I48.91 - Unspecified atrial fibrillation Status: Chronic Assessment and Plan: - EKG showed NSR - continue home medication - metoprolol. not on anticoagulation. (5) Hypertension: Qualifiers: Hypertension type: primary hypertension Qualified Code(s): I10 - Essential (primary) hypertension Code(s): I10 - Essential (primary) hypertension Status: Chronic Assessment and Plan: - chronic, currently 152/98 - continue home medications: Lasix, Metoprolol XL - monitor Plan Lactic elevated at 2.3. Viral PCR negative. CXR showed no indications for pneumonia. UA unremarkable. Checking procalcitonin. Diet: Heart healthy GI Prophylaxis: Not currently indicated DVT Prophylaxis: SCDs IV fluids: None Lines/Tubes: Peripheral IV Code Status: Quality VTE Prophylaxis VTE prophylaxis: mechanical ordered Hospitalist [facility] Advance Care Plan I have confirmed that the patient's Advanced Care Plan is present, code status is documented, or surrogate decision maker is listed in patient medical record.: Yes Medication Reconciliation I have utilized all available resources to obtain, update and review the patients current medications (includes all prescriptions, OTC, herbals, cannabis, and nutritional supplements).: Yes
[2024-10-20 16:24] LABS: Procalcitonin 0.2 ng/mL
[2024-10-20 16:43] LABS: Reflex Lactic Acid Yes or No Add Lactic
--- NOTE | 2024-10-20 16:48 | PC.NURSE ---
pt typically wears 3L NC while sleeping.
--- NOTE | 2024-10-20 17:17 | ADMGEN ---
This patient, Js Contreras, was admitted to IMU Room 212-01. Patient/family oriented to hospital policies and general routines including ID bracelet, bed and alarms, visiting hours, pain management, procedures, bathroom and other care routines, personal items, smoking policy, room service/diet, and visiting hours. Information on how to activate the Rapid Response Team has been discussed. Patient/Family are encouraged to report perceived risks to care and to ask questions if they do not understand what they are told or what they should do.
[2024-10-20 18:01] LABS: Troponin I 0.052 ng/mL (0.000-0.034)
[2024-10-20] MEDS: FUROSEMIDE INJ 40 MG/4 ML VIAL 20 MG IV PUSH (21:03)
[2024-10-20] MEDS: ROSUVASTATIN 10 MG TABLET PO (21:04)
[2024-10-20 21:05] LABS: Creatine Kinase 83 U/L (55-170)
[2024-10-20 22:54] LABS: Creatinine Urine 20.7 mg/dL; Total Protein Urine Random 18 mg/dL; Ur Ttl Prot Creatinine Ratio 0.87 mg/mg (0-0.20)
[2024-10-20 23:00] LABS: Urea Random Urine 275 MG/DL
[2024-10-20 23:01] LABS: Sodium Urine Random 99 meq/L
[2024-10-21] VITALS (19 sets, daily range): BP systolic 106–157; BP diastolic 60–92; PULSE 61–84; RESP 8–22; TEMP 36.3–36.8; O2SAT 86–99
[2024-10-21 00:02] LABS: Creatinine Urine 20.9 mg/dL
[2024-10-21 05:24] LABS: Basophils Absolute Auto 0.1 K/mm3 (0.0-0.1); Basophils Percent Auto 0.8 % (0.2-1.2); Eosinophils Absolute Auto 0.1 K/mm3 (0-0.3); Eosinophils Percent Auto 0.6 % (0-4.4); Hematocrit 39.7 % (42.0-52.0); Hemoglobin 11.9 g/dL (14.0-18.0); Immature Granulocyte Absolute 0.03 K/mm3 (0.00-0.031); Immature Granulocyte Percent A 0.3 % (0-0.5); Lymphocytes Absolute Auto 2.87 K/mm3 (0.9-3.2); Lymphocytes Percent Auto 26.5 % (18.3-44.2); Mean Corpuscular Volume 86.7 fl (80-100); Monocytes Absolute Auto 0.9 K/mm3 (0.1-0.6); Monocytes Percent Auto 8.6 % (2.6-8.5); Neutrophils Absolute Auto 6.8 K/mm3 (1.3-6.7); Neutrophils Percent Auto 63.2 % (45.5-73.1); Platelet Count Result 308 k/mm3 (150-375); Red Blood Count 4.58 M/mm3 (4.6-6.20); Red Cell Distribution Width 15.9 % (11.5-14.5); White Blood Count 10.8 K/mm3 (4.5-10.0)
[2024-10-21 05:38] LABS: Alanine Aminotransferase 174 U/L (6-50); Albumin Level 3.7 g/dL (3.5-5.1); Alkaline Phosphatase 117 U/L (38-126); Anion Gap 8 mmol/L (4-12); Aspartate Amino Transferase 276 U/L (17-59); Bilirubin,Total 0.6 mg/dL (0.2-1.3); Blood Urea Nitrogen 48 mg/dL (9-20); Carbon Dioxide 33 mmol/L (22-30); Chloride 98 mmol/L (98-107); Estimated CRCL calculation 40 ml/min; Estimated Glomerular Filt Rate 55; Glucose 91 mg/dL (65-110); Potassium 3.2 mmol/L (3.4-5.0); Sodium 139 mmol/L (137-145)
[2024-10-21] MEDS: FUROSEMIDE INJ 40 MG/4 ML VIAL 20 MG IV PUSH ×2 (09:01→20:15)
[2024-10-21] MEDS: ASPIRIN 81 MG CHEWABLE TABLET PO (09:02)
[2024-10-21] MEDS: METOPROLOL SUCCINATE EXT REL 100 MG TABCR PO (09:02)
[2024-10-21] MEDS: CHOLECALCIFEROL 1,000 UNITS TABLET 2000 UNITS PO (09:02)
[2024-10-21] MEDS: POTASSIUM CHLORIDE 20 MEQ PACKET (FOR LIQUID) PO (09:04)
--- NOTE | 2024-10-21 10:19 | P.CONCA_ITS ---
Assessment and Plan Assessment and plan (1) Acute exacerbation of CHF (congestive heart failure): Qualifiers: Heart failure type: combined systolic and diastolic Qualified Code(s): I50.43 - Acute on chronic combined systolic (congestive) and diastolic (congestive) heart failure Code(s): I50.9 - Heart failure, unspecified Status: Acute Assessment and Plan: Acute on chronic systolic heart failure exacerbation secondary to medication nonadherence. * Continue with IV furosemide today, likely will be able to shift to p.o. tomorrow * Daily weights * Strict I&O * CHF counseling (2) Cardiomyopathy: Code(s): I42.9 - Cardiomyopathy, unspecified Status: Acute Assessment and Plan: EF 40-45% with at least moderate MR * He is not on any medical therapy for this aside from ToprolXL. * Start low dose entresto 24-26 b.i.d. today. * Start spironolactone 12.5mg daily * Would anticipate discharge in the next 24-48 hours if he remains stable. (3) Hyperlipidemia: Code(s): E78.5 - Hyperlipidemia, unspecified Status: Chronic Assessment and Plan: Continue statin (4) Hypertension: Qualifiers: Hypertension type: primary hypertension Qualified Code(s): I10 - Essential (primary) hypertension Code(s): I10 - Essential (primary) hypertension Status: Chronic Assessment and Plan: Above goal.. As above adding entresto and spironolactone (5) Elevated troponin: Code(s): R79.89 - Other specified abnormal findings of blood chemistry Status: Acute Assessment and Plan: Mildly elevated and flat. Not having any chest pain. Doubt ACS. History of Present Illness History of Present Illness Consult date/time: 10/21/24 10:19 Reason For Visit: CHF//Elevated Troponin Narrative: Js Contreras is a 74 year old male with a reported history of alcoholic cirrhosis, chronic combined systolic and diastolic heart failure, hypertension, hyperlipidemia, right bundle branch block, reported AFIB, cannabis use, histoplasmosis who presented to [facility] with weakness and shortness of breath. He has had progressive shortness of breath for about a month and reports lower extremity swelling as well. He admits he was not taking his medications at home. He denies any other symptoms including chest pain and palpitations. He is feeling less short of breath now and does not have any edema. Review of Systems 2 Review of Systems: All systems reviewed & are unremarkable except as noted in HPI and below [facility] Past Medical History Medical History Eczema Sleep apnea Hypertension Hyperlipidemia Vitamin D deficiency Substance abuse Atrial fibrillation Congestive heart failure Surgical History Surgical History History of umbilical hernia repair robotic assisted repair incarcerated umbilical hernia measuring 4.5 cm, myofascial release x2 H/O hemorrhoidectomy History of appendectomy History of carpal tunnel release Family History Family History Mother Parkinson disease Father Alcohol abuse Social History Social History Social History: Lives with grand daughter (13 year old) 1 dog Smoking status: Never smoker Second hand tobacco smoke exposure: Yes Alcohol intake: current Drinks per week: 2 Substance use: never Substance use type: marijuana and crack/cocaine Other substance usage details: once in while, last used 2 weeks ago Do You Feel Safe in your Home?: Yes Lack of Transportation: No Lack of Food: Never True Current Housing: I Have Housing Concerned About Future Housing: No Difficulty Paying Gas/Electric Bills: No Difficulty Paying for Meds: No Currently Unemployed: No Education: High School Diploma/GED Difficulty w/ Childcare or Family Care: No Spiritual care concerns: No Meds Home Medications and Allergies Home Medications ?Medication ?Instructions ?Recorded ?Confirmed ?Type aspirin 81 mg chewable tablet 81 mg PO DAILY 08/23/24 10/20/24 History cholecalciferol (vitamin D3) 50 2,000 unit PO DAILY 08/23/24 10/20/24 History mcg (2,000 unit) capsule albuterol sulfate 90 mcg/actuation 1 inh inhalation QID PRN shortness 08/28/24 10/20/24 Rx aerosol inhaler (Ventolin HFA) of breath or wheezing #8.5 grams furosemide 40 mg tablet 40 mg PO DAILY #30 tabs 08/28/24 10/20/24 Rx metoprolol succinate 100 mg 100 mg PO QAM #60 tabs 08/28/24 10/20/24 Rx tablet,extended release 24 hr (Toprol XL) potassium chloride 20 mEq oral 20 meq PO DAILY #30 ea 08/28/24 10/20/24 Rx packet rosuvastatin 20 mg tablet (Crestor) 10 mg (1/2 x 20 mg) PO HS #30 tabs 08/28/24 10/20/24 Rx Allergies Allergy/AdvReac Type Severity Reaction Status Date / Time No Known Drug Allergies Allergy Other Verified 10/20/24 13:49 Vital Signs Vital Signs - 24 hr 10/20/24 13:55 10/20/24 13:55 10/20/24 14:40 Temperature 36.4 C L Pulse Rate 63 65 Respiratory Rate 19 23 H Blood Pressure 148/96 H 154/97 H Pulse Oximetry 93 93 90 Oxygen Delivery Room Air Room Air Oxygen Flow Rate Fraction of Inspired Oxygen 10/20/24 14:46 10/20/24 15:01 10/20/24 15:16 Temperature Pulse Rate 67 68 69 Respiratory Rate 29 H 30 H 21 H Blood Pressure 149/92 H 151/84 H 145/96 H Pulse Oximetry 91 93 92 Oxygen Delivery Oxygen Flow Rate Fraction of Inspired Oxygen 10/20/24 15:31 10/20/24 15:46 10/20/24 16:01 Temperature Pulse Rate 69 68 72 Respiratory Rate 31 H 23 H 27 H Blood Pressure 152/98 H 148/106 H 146/114 H Pulse Oximetry 92 95 92 Oxygen Delivery Oxygen Flow Rate Fraction of Inspired Oxygen 10/20/24 16:16 10/20/24 16:31 10/20/24 16:46 Temperature Pulse Rate 70 69 67 Respiratory Rate 28 H 25 H 23 H Blood Pressure 140/101 H 142/96 H 145/100 H Pulse Oximetry 93 100 100 Oxygen Delivery Oxygen Flow Rate Fraction of Inspired Oxygen 10/20/24 17:16 10/20/24 17:22 10/20/24 18:00 Temperature 36.4 C Pulse Rate 66 70 Respiratory Rate 16 Blood Pressure 130/92 H Pulse Oximetry 98 Oxygen Delivery Room Air Oxygen Flow Rate Fraction of Inspired Oxygen 10/20/24 20:00 10/20/24 20:00 10/20/24 20:58 Temperature 36.6 C Pulse Rate 64 66 64 Respiratory Rate 16 16 Blood Pressure 140/89 Pulse Oximetry 90 90 Oxygen Delivery Room Air Oxygen Flow Rate Fraction of Inspired Oxygen 10/20/24 21:11 10/20/24 21:15 10/20/24 22:00 Temperature Pulse Rate 68 68 69 Respiratory Rate 20 20 Blood Pressure Pulse Oximetry 98 98 Oxygen Delivery Room Air Nasal Cannula Oxygen Flow Rate 3 Fraction of Inspired Oxygen 21 32 10/21/24 00:00 10/21/24 00:00 10/21/24 00:45 Temperature 36.6 C Pulse Rate 67 75 67 Respiratory Rate 16 16 Blood Pressure 123/80 Pulse Oximetry 97 97 Oxygen Delivery Nasal Cannula Oxygen Flow Rate 3 Fraction of Inspired Oxygen 10/21/24 02:00 10/21/24 04:00 10/21/24 04:00 Temperature 36.8 C Pulse Rate 67 73 69 Respiratory Rate 20 Blood Pressure 147/92 H Pulse Oximetry 98 Oxygen Delivery Oxygen Flow Rate Fraction of Inspired Oxygen 10/21/24 05:15 10/21/24 06:00 10/21/24 08:00 Temperature 36.6 C Pulse Rate 73 74 77 Respiratory Rate 20 22 H Blood Pressure 157/71 H Pulse Oximetry 98 98 Oxygen Delivery Nasal Cannula Oxygen Flow Rate 3 Fraction of Inspired Oxygen 10/21/24 08:50 10/21/24 09:02 10/21/24 09:06 Temperature Pulse Rate 73 Respiratory Rate Blood Pressure Pulse Oximetry 95 86 L Oxygen Delivery Room Air Room Air Oxygen Flow Rate Fraction of Inspired Oxygen 10/21/24 09:07 Temperature Pulse Rate Respiratory Rate Blood Pressure Pulse Oximetry 95 Oxygen Delivery Nasal Cannula Oxygen Flow Rate 2 Fraction of Inspired Oxygen Exam 2 Const: General: comfortable, no acute distress, alert and awake O rientation/consciousness: patient oriented x3 HENMT: Head: normal to inspection Eyes: General: appearance normal, both eyes and all related structures P upils: Equal, round and reactive pupils present Neck: Neck: normal visual inspection, supple and no JVD Carotids: normal carotid upstroke Resp: Effort & Inspection: normal respiratory effort Auscultation: d iminished lung sounds Cardio: Rate: regular rate Rhythm: regular rhythm Heart sounds: S1 normal heart sound present, S2 normal heart sound present and Murmur heart sound present systolic GI: Auscultation: normal bowel sounds Skin: General skin exam: normal color Neuro: General: patient oriented x3 Cranial nerves: Yes Equal, round and reactive pupils present Extrem: General: normal to inspection Psych: Appearance: grossly normal Mental Status: mental status grossly normal Results Labs and Meds 05/09/25 04:24 10/21/24 04:24 Lab results: Cardiac Enzymes 10/20/24 10/20/24 10/20/24 Range/Units 14:40 17:20 20:43 AST 176 H (17-59) U/L Troponin I 0.047 H* 0.052 H* 0.070 H* D (0.000-0.034) ng/mL 10/21/24 Range/Units 04:24 AST 276 H (17-59) U/L Troponin I (0.000-0.034) ng/mL Coagulation 10/20/24 Range/Units 14:40 PT 18.2 H (11.1-14.7) Seconds APTT 33.5 (22.3-36.8) Seconds CBC 10/20/24 10/21/24 Range/Units 14:00 04:24 WBC 9.3 10.8 H (4.5-10.0) K/mm3 RBC 4.91 4.58 L (4.6-6.20) M/mm3 Hgb 12.8 L 11.9 L (14.0-18.0) g/dL Hct 42.7 39.7 L (42.0-52.0) % Plt Count 309 308 (150-375) k/mm3 Lymph # (Auto) 2.32 2.87 (0.9-3.2) K/mm3 [place] # (Auto) 0.7 H 0.9 H (0.1-0.6) K/mm3 Eos # (Auto) 0.0 0.1 (0-0.3) K/mm3 Baso # (Auto) 0.1 0.1 (0.0-0.1) K/mm3 Comprehensive Metabolic Panel 10/20/24 10/21/24 Range/Units 14:40 04:24 Sodium 141 139 (137-145) mmol/L Potassium 3.9 3.2 L (3.4-5.0) mmol/L Chloride 98 98 (98-107) mmol/L Carbon Dioxide 35 H 33 H (22-30) mmol/L BUN 52 H D 48 H (9-20) mg/dL Creatinine 1.67 H 1.28 (0.7-1.3) mg/dL Glucose 133 H 91 (65-110) mg/dL Calcium 8.6 8.0 L (8.4-10.2) mg/dL AST 176 H 276 H (17-59) U/L ALT 115 H 174 H (6-50) U/L Alkaline Phosphatase 121 117 (38-126) U/L Total Protein 8.0 7.0 (6.3-8.2) g/dL Albumin 4.0 3.7 (3.5-5.1) g/dL Intake and Output 10/20/24 10/21/24 10/21/24 23:59 07:59 15:59 Intake Total 1100 Output Total 660 1100 Balance -660 0 Intake: Oral 1100 Output: Urine 660 1100 Other: # Unmeasured Voids 1 Patient Weight 10/21/24 23:59 Weight 79.9 kg
[2024-10-21] MEDS: POTASSIUM CHLORIDE 20 MEQ PACKET (FOR LIQUID) 40 MEQ PO (12:05)
--- NOTE | 2024-10-21 15:15 | P.PNIM_ITS ---
Progress Note: A&P Assessment and Plan (1) Acute kidney injury: Code(s): N17.9 - Acute kidney failure, unspecified Status: Acute Assessment and Plan: - creatinine 1.67, BUN 52, GFR 40. Previously 0.73, BUN 22, and GFR >60. - check CK, urine sodium, protein/creatinine, urine creatinine, urea, urine osmolality, osmolality - renal US - UA unremarkable - monitor I&Os - consider nephrology consultation and postvoid residual if no improvement with diuresis. Volume overload r/t CHF exacerbation vs injury secondary to re- initiation of diuretic. Will treat as CHF exacerbation and monitor renal function closely. (2) Acute exacerbation of CHF (congestive heart failure): Qualifiers: Heart failure type: combined systolic and diastolic Qualified Code(s): I50.43 - Acute on chronic combined systolic (congestive) and diastolic (congestive) heart failure Code(s): I50.9 - Heart failure, unspecified Status: Acute Assessment and Plan: - BNP 14652 - most recent echo (08/23/24): Estimated EF 40-45%, systolic function mildly reduced, grade 1 diastolic dysfunction, pulmonary hypertension. See report for full details. - currently on Lasix 40 mg p.o. daily -> Lasix 20 mg IV b.i.d. - monitor I&Os and daily weights - trend renal function -Started on Entresto and Spironolactone (3) Elevated troponin: Code(s): R79.89 - Other specified abnormal findings of blood chemistry Status: Acute Assessment and Plan: - troponin: 0.047 -> 0.052, 6 hour ordered - denies active chest pain, reporting generalized weakness. - Suspect mild elevations secondary to volume overload -> increasing diuretic. - nitro SL p.r.n. - telemetry monitoring and admit to IMU (4) Atrial fibrillation: Qualifiers: Atrial fibrillation type: unspecified Qualified Code(s): I48.91 - Unspecified atrial fibrillation Code(s): I48.91 - Unspecified atrial fibrillation Status: Chronic Assessment and Plan: - EKG showed NSR - continue home medication - metoprolol. not on anticoagulation. (5) Hypertension: Qualifiers: Hypertension type: primary hypertension Qualified Code(s): I10 - Essential (primary) hypertension Code(s): I10 - Essential (primary) hypertension Status: Chronic Assessment and Plan: - chronic, currently 152/98 - continue home medications: Lasix, Metoprolol XL - monitor Plan Lactic elevated at 2.3. Viral PCR negative. CXR showed no indications for pneumonia. UA unremarkable. Checking procalcitonin. Diet: Heart healthy GI Prophylaxis: Not currently indicated DVT Prophylaxis: SCDs IV fluids: None Lines/Tubes: Peripheral IV Code Status: Subjective Date/time seen: 10/21/24 15:15 Interval history: Patient was not any GDMT. Consulted cardiology. Patient reports he was diagnosed CHF last month but not compliant with his medications. Review of Systems Review of Systems: All systems reviewed & are unremarkable except as noted in HPI and below Exam Narrative: 1+ pitting edema to BLE/ankles, symm. di minsihed in bases. mild exertional SOB noted during interview - walked approx 10 steps will talking and was mildly winded. resolved with rest. Const: General: comfortable Other: , male, nontoxic appearance. Mild respiratory distress noted with mild exertion and conversation, remained comfortable and resolved quickly. HENMT: Face/Nose/Sinus: Normal nares present Mouth: Yes moist mucous membranes Eyes: General: appearance normal, both eyes and all related structures Sclera: sclerae normal Pupils: Equal, round and reactive pupils present EOM: EOMs intact bilaterally Resp: Effort & Inspection: normal respiratory effort Other: Diminished at bases Cardio: Rate: regular rate Rhythm: regular rhythm Other: S1-S2 present without murmur, rub, ectopy GI: Other: Abdomen soft, nondistended, nontender. Normoactive bowel sounds in all quadrants. Skin: General skin exam: normal color and no rashes or lesions noted Wounds: no wounds Neuro: Cranial nerves: Yes Equal, round and reactive pupils present Speech: normal speech Motor exam (neuro): 5/5 motor strength present throughout Sensory Exam: normal sensation Other: A&O x4 Extrem: General: normal to inspection Psych: Mental Status: mental status grossly normal Affect: normal affect Other: Good insight and judgment, pleasant Objective Data Vital Signs Vital Signs: Vital Signs - 24 hr 10/20/24 15:16 10/20/24 15:31 10/20/24 15:46 Temperature Pulse Rate 69 69 68 Respiratory Rate 21 H 31 H 23 H Blood Pressure 145/96 H 152/98 H 148/106 H Pulse Oximetry 92 92 95 Oxygen Delivery Oxygen Flow Rate Fraction of Inspired Oxygen 10/20/24 16:01 10/20/24 16:16 10/20/24 16:31 Temperature Pulse Rate 72 70 69 Respiratory Rate 27 H 28 H 25 H Blood Pressure 146/114 H 140/101 H 142/96 H Pulse Oximetry 92 93 100 Oxygen Delivery Oxygen Flow Rate Fraction of Inspired Oxygen 10/20/24 16:46 10/20/24 17:16 10/20/24 17:22 Temperature 97.6 F Pulse Rate 67 66 Respiratory Rate 23 H 16 Blood Pressure 145/100 H 130/92 H Pulse Oximetry 100 98 Oxygen Delivery Room Air Oxygen Flow Rate Fraction of Inspired Oxygen 10/20/24 18:00 10/20/24 20:00 10/20/24 20:00 Temperature 97.8 F Pulse Rate 70 64 66 Respiratory Rate 16 Blood Pressure 140/89 Pulse Oximetry 90 Oxygen Delivery Oxygen Flow Rate Fraction of Inspired Oxygen 10/20/24 20:58 10/20/24 21:11 10/20/24 21:15 Temperature Pulse Rate 64 68 68 Respiratory Rate 16 20 20 Blood Pressure Pulse Oximetry 90 98 98 Oxygen Delivery Room Air Room Air Nasal Cannula Oxygen Flow Rate 3 Fraction of Inspired Oxygen 21 32 10/20/24 22:00 10/21/24 00:00 10/21/24 00:00 Temperature 97.8 F Pulse Rate 69 67 75 Respiratory Rate 16 Blood Pressure 123/80 Pulse Oximetry 97 Oxygen Delivery Oxygen Flow Rate Fraction of Inspired Oxygen 10/21/24 00:45 10/21/24 02:00 10/21/24 04:00 Temperature 98.2 F Pulse Rate 67 67 73 Respiratory Rate 16 20 Blood Pressure 147/92 H Pulse Oximetry 97 98 Oxygen Delivery Nasal Cannula Oxygen Flow Rate 3 Fraction of Inspired Oxygen 10/21/24 04:00 10/21/24 05:15 10/21/24 06:00 Temperature Pulse Rate 69 73 74 Respiratory Rate 20 Blood Pressure Pulse Oximetry 98 Oxygen Delivery Nasal Cannula Oxygen Flow Rate 3 Fraction of Inspired Oxygen 10/21/24 08:00 10/21/24 08:00 10/21/24 08:50 Temperature 97.8 F Pulse Rate 77 65 Respiratory Rate 22 H Blood Pressure 157/71 H Pulse Oximetry 98 95 Oxygen Delivery Room Air Oxygen Flow Rate Fraction of Inspired Oxygen 10/21/24 09:02 10/21/24 09:06 10/21/24 09:07 Temperature Pulse Rate 73 Respiratory Rate Blood Pressure Pulse Oximetry 86 L 95 Oxygen Delivery Room Air Nasal Cannula Oxygen Flow Rate 2 Fraction of Inspired Oxygen 10/21/24 10:00 10/21/24 12:00 10/21/24 12:00 Temperature 98.1 F Pulse Rate 67 61 65 Respiratory Rate 8 L Blood Pressure 138/76 Pulse Oximetry 99 Oxygen Delivery Oxygen Flow Rate Fraction of Inspired Oxygen 10/21/24 14:00 Temperature Pulse Rate 65 Respiratory Rate Blood Pressure Pulse Oximetry Oxygen Delivery Oxygen Flow Rate Fraction of Inspired Oxygen Intake/Output Intake/Output: Intake & Output 10/18/24 10/19/24 10/20/24 10/21/24 23:59 23:59 23:59 23:59 Intake Total 1660 Output Total 660 1100 Balance -660 560 Meds/Results Medications: Active Medications Generic Name Dose Route Start Last Admin Trade Name Freq PRN Reason Stop Dose Admin Acetaminophen 650 mg 10/20/24 15:57 Acetaminophen 325 Mg Tablet PO Q4H PRN Mild Pain (1-3) or Fever Albuterol 1 puff 10/20/24 18:52 Albuterol Sulfate (*Sp) Aerosol 1 Puff INHALATION QID PRN shortness of breath or wheezing Aspirin 81 mg 10/21/24 09:00 10/21/24 09:02 Aspirin 81 Mg Chewable Tablet PO 81 mg DAILY REJI Administration Furosemide 20 mg 10/20/24 21:00 10/21/24 09:01 Furosemide Inj 40 Mg/4 Ml Vial IV PUSH 20 mg Q12HR REJI Administration Metoprolol Succinate 100 mg 10/21/24 09:00 10/21/24 09:02 Metoprolol Succinate Ext Rel 100 Mg Tabcr PO 100 mg QAM REJI Administration Nitroglycerin 0.4 mg 10/20/24 16:12 Nitroglycerin Sl 0.4 Mg Tablet SUBLINGUAL Q5MIN PRN Chest Pain Potassium Chloride 20 meq 10/21/24 09:00 10/21/24 09:04 Potassium Chloride 20 Meq Packet (For Liquid) PO 20 meq DAILY REJI Administration Rosuvastatin Calcium 10 mg 10/20/24 21:00 10/20/24 21:04 Rosuvastatin 10 Mg Tablet PO 10 mg HS REJI Administration Sacubitril/Valsartan 1 tab 10/21/24 21:00 Sacubitril/Valsartan 24-26 Mg Tablet PO Q12HR [facility] Spironolactone 12.5 mg 10/22/24 09:00 Spironolactone 12.5 Mg Tablet PO QAM [facility] Vitamin D 2,000 units 10/21/24 09:00 10/21/24 09:02 Cholecalciferol 1,000 Units Tablet PO 2,000 units DAILY REJI Administration Radiology Results: ITS Impressions Chest X-Ray 10/20/24 14:40 IMPRESSION: No change from previous examination. Renal Ultrasound 10/21/24 10:35 IMPRESSION: 1. 1.9 cm right renal cyst. Otherwise normal kidneys without hydronephrosis. Labs Labs: Laboratory Results - last 24 hr 10/20/24 10/20/24 10/20/24 14:40 17:20 20:43 WBC RBC Hgb Hct MCV MCH MCHC RDW Plt Count MPV Immature Gran % (Auto) Neut % (Auto) Lymph % (Auto) [place] % (Auto) Eos % (Auto) Baso % (Auto) Lymph # (Auto) [place] # (Auto) Eos # (Auto) Baso # (Auto) Abs Immat Gran (auto) Absolute Neuts (auto) Absolute Nucleated RBC Nucleated RBC % PT 18.2 H INR 1.5 APTT 33.5 Sodium Potassium Chloride Carbon Dioxide Anion Gap BUN Creatinine Estim Creat Clear Calc Estimated GFR Glucose Lactic Acid 2.0 Calcium Total Bilirubin AST ALT Alkaline Phosphatase Total Creatine Kinase 83 Troponin I 0.047 H* 0.052 H* 0.070 H* D NT-Pro-B Natriuret Pep 78229 H Total Protein Albumin Procalcitonin 0.2 U Random Total Protein Ur Random Sodium Ur Random Urea Urine Creatinine Protein/Creat Ratio 2 Influenza A (RT-PCR) Negative Influenza B (RT-PCR) Negative RSV (RT-PCR) Negative SARS-CoV-2 RNA (RT-PCR) Negative 10/20/24 10/20/24 10/21/24 22:35 22:35 04:24 WBC 10.8 H RBC 4.58 L Hgb 11.9 L Hct 39.7 L MCV 86.7 MCH 26.0 MCHC 30.0 L RDW 15.9 H Plt Count 308 MPV 10.0 Immature Gran % (Auto) 0.3 Neut % (Auto) 63.2 Lymph % (Auto) 26.5 [place] % (Auto) 8.6 H Eos % (Auto) 0.6 Baso % (Auto) 0.8 Lymph # (Auto) 2.87 [place] # (Auto) 0.9 H Eos # (Auto) 0.1 Baso # (Auto) 0.1 Abs Immat Gran (auto) 0.03 Absolute Neuts (auto) 6.8 H Absolute Nucleated RBC 0.000 Nucleated RBC % 0.0 PT INR APTT Sodium 139 Potassium 3.2 L Chloride 98 Carbon Dioxide 33 H Anion Gap 8 BUN 48 H Creatinine 1.28 Estim Creat Clear Calc 40 Estimated GFR 55 L Glucose 91 Lactic Acid Calcium 8.0 L Total Bilirubin 0.6 AST 276 H ALT 174 H Alkaline Phosphatase 117 Total Creatine Kinase Troponin I NT-Pro-B Natriuret Pep Total Protein 7.0 Albumin 3.7 Procalcitonin U Random Total Protein 18 Ur Random Sodium 99 Ur Random Urea 275 Urine Creatinine 20.7 20.9 Protein/Creat Ratio 2 0.87 H Influenza A (RT-PCR) Influenza B (RT-PCR) RSV (RT-PCR) SARS-CoV-2 RNA (RT-PCR) Quality VTE Prophylaxis VTE prophylaxis: mechanical ordered Hospitalist MIPS Advance Care Plan I have confirmed that the patient's Advanced Care Plan is present, code status is documented, or surrogate decision maker is listed in patient medical record.: Yes Medication Reconciliation I have utilized all available resources to obtain, update and review the patients current medications (includes all prescriptions, OTC, herbals, cannabis, and nutritional supplements).: Yes
[2024-10-21 17:24] LABS: Troponin I 0.063 ng/mL (0.000-0.034)
[2024-10-21] MEDS: ROSUVASTATIN 10 MG TABLET PO (20:15)
[2024-10-21] MEDS: SACUBITRIL/VALSARTAN 24-26 MG TABLET 1 TAB PO (20:15)
[2024-10-22] VITALS (12 sets, daily range): BP systolic 115–135; BP diastolic 79–84; PULSE 60–89; RESP 16–18; TEMP 36.3–36.5; O2SAT 92–99
[2024-10-22 04:39] LABS: Hematocrit 39.9 % (42.0-52.0); Hemoglobin 12.2 g/dL (14.0-18.0); Mean Corpuscular HGB Conc 30.6 g/dl (32-36); Mean Corpuscular Volume 84.9 fl (80-100); Mean Platelet Volume 9.8 fl (7.4-10.4); Platelet Count Result 301 k/mm3 (150-375); Red Cell Distribution Width 15.7 % (11.5-14.5); White Blood Count 9.6 K/mm3 (4.5-10.0)
[2024-10-22 04:52] LABS: Alanine Aminotransferase 129 U/L (6-50); Albumin Level 3.5 g/dL (3.5-5.1); Alkaline Phosphatase 109 U/L (38-126); Anion Gap 6 mmol/L (4-12); Aspartate Amino Transferase 141 U/L (17-59); Bilirubin,Total 0.6 mg/dL (0.2-1.3); Blood Urea Nitrogen 34 mg/dL (9-20); Carbon Dioxide 36 mmol/L (22-30); Chloride 97 mmol/L (98-107); Estimated CRCL calculation 67 ml/min; Estimated Glomerular Filt Rate > 60; Glucose 96 mg/dL (65-110); Sodium 139 mmol/L (137-145)
[2024-10-22 04:59] LABS: NT Pro B Type Natriuretic Pept 9790 pg/mL (19.9-100)
--- NOTE | 2024-10-22 07:30 | PC.NURSE ---
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 Pt assessed and found with the equipment laying on the bed. Pt states that he woke up from a dream and must have pulled everything off in his sleep. Pt states, I will be going home today. I want to get out of here. Pt instructed that he is free to leave after signing the AMA papers, but due to his condition, that it is not advised. Pt educated on the importance for monitoring with the start of his new medications. AMA paperwork offered to patient. Pt declined at this time. Pt agreeable to stay the rest of the night, but would like to speak to the doctor in the AM about possibly discharging.
--- NOTE | 2024-10-22 07:55 | PM.PNCARD ---
Progress Note: A&P Assessment and Plan (1) Acute exacerbation of CHF (congestive heart failure): Qualifiers: Heart failure type: combined systolic and diastolic Qualified Code(s): I50.43 - Acute on chronic combined systolic (congestive) and diastolic (congestive) heart failure Code(s): I50.9 - Heart failure, unspecified Status: Acute (2) Cardiomyopathy: Code(s): I42.9 - Cardiomyopathy, unspecified Status: Acute (3) Elevated troponin: Code(s): R79.89 - Other specified abnormal findings of blood chemistry Status: Acute (4) Atrial fibrillation with RVR: Code(s): I48.91 - Unspecified atrial fibrillation Status: Acute (5) Hyperlipidemia: Code(s): E78.5 - Hyperlipidemia, unspecified Status: Chronic (6) Hypertension: Qualifiers: Hypertension type: primary hypertension Qualified Code(s): I10 - Essential (primary) hypertension Code(s): I10 - Essential (primary) hypertension Status: Chronic Plan Problem list: Acute on chronic systolic and diastolic heart failure ---BNP 9790 Elevated troponin without chest pain most likely secondary to acute on chronic systolic and diastolic heart failure ---troponin 0.052--0.070-0.063 Moderate mitral regurgitation with an eccentric jet Medication noncompliance Paroxysmal atrial fibrillation Hypertension Hyperlipidemia Plan: -patient is euvolemic by exam today. Switch to Lasix p.o. 40 mg daily today which is his home dose -continue aspirin 81 mg daily -continue rosuvastatin -continue metoprolol -add Entresto and SGLT 2 inhibitor for systolic heart failure -recommend outpatient RODERICK to further evaluate severity of mitral regurgitation -recommend outpatient stress test to evaluate for any underlying ischemia as cause of depressed EF (if no catheterization or stress test was done recently) -check daily weight, ins and outs, renal function, electrolytes. Replace electrolytes as needed to keep potassium greater than 4 and magnesium greater than 2 Thank you for allowing us to participate in the care of this patient. Cardiology will sign off. Please call us with any questions. Subjective Date/time seen: 10/22/24 07:55 Interval history: Reason for encounter: Acute exacerbation of systolic and diastolic heart failure Relevant history: 74 year old male with a reported history of alcoholic cirrhosis, chronic combined systolic and diastolic heart failure, hypertension, hyperlipidemia, right bundle branch block, reported AFIB, cannabis use, histoplasmosis presented to [facility] with weakness and shortness of breath. He has had progressive shortness of breath for about a month and reports lower extremity swelling as well. He admits he was not taking his medications at home. He denies any other symptoms including chest pain and palpitations. He is feeling less short of breath now and does not have any edema. Cardiology is consulted for recommendations for acute on chronic systolic and diastolic heart failure. Interval history: Patient denies any chest pain, shortness of breath, lightheadedness, dizziness, palpitations, nausea, emesis, headache, fever, chills. Review of Systems Review of Systems: Complete review of systems was performed and pertinent positives are noted in HPI Exam Narrative: General: Alert oriented x3, no acute distress Neck: Supple, no JVD Chest: Bilaterally clear to auscultation, no rales or rhonchi Cardiac: S1, S2 +, regular rate, regular rhythm, no murmurs or rubs Extremities: No pedal edema, no skin rash Neurologic: Alert and oriented x3, no focal neurological deficits Objective Data Vital Signs Vital Signs: Vital Signs - 24 hr 10/21/24 08:00 10/21/24 08:00 10/21/24 08:50 Temperature 36.6 C Pulse Rate 77 65 Respiratory Rate 22 H Blood Pressure 157/71 H Pulse Oximetry 98 95 Oxygen Delivery Room Air Oxygen Flow Rate 10/21/24 09:02 10/21/24 09:06 10/21/24 09:07 Temperature Pulse Rate 73 Respiratory Rate Blood Pressure Pulse Oximetry 86 L 95 Oxygen Delivery Room Air Nasal Cannula Oxygen Flow Rate 2 10/21/24 10:00 10/21/24 12:00 10/21/24 12:00 Temperature 36.7 C Pulse Rate 67 61 65 Respiratory Rate 8 L Blood Pressure 138/76 Pulse Oximetry 99 Oxygen Delivery Oxygen Flow Rate 10/21/24 14:00 10/21/24 16:00 10/21/24 16:00 Temperature Pulse Rate 65 71 Respiratory Rate Blood Pressure Pulse Oximetry Oxygen Delivery Room Air Oxygen Flow Rate 10/21/24 16:00 10/21/24 18:00 10/21/24 20:00 Temperature 36.5 C 36.3 C L Pulse Rate 65 66 84 Respiratory Rate 16 20 Blood Pressure 125/70 106/60 Pulse Oximetry 95 94 Oxygen Delivery Oxygen Flow Rate 10/21/24 20:00 10/21/24 20:08 10/21/24 22:00 Temperature Pulse Rate 67 84 66 Respiratory Rate 20 Blood Pressure Pulse Oximetry 94 Oxygen Delivery Nasal Cannula Oxygen Flow Rate 1 10/22/24 00:00 10/22/24 00:00 10/22/24 00:00 Temperature 36.5 C Pulse Rate 89 89 81 Respiratory Rate 16 16 Blood Pressure 115/79 Pulse Oximetry 92 92 Oxygen Delivery Nasal Cannula Oxygen Flow Rate 1 10/22/24 00:30 10/22/24 02:00 10/22/24 03:08 Temperature Pulse Rate 71 62 62 Respiratory Rate 16 16 Blood Pressure Pulse Oximetry 99 99 Oxygen Delivery Nasal Cannula Nasal Cannula Oxygen Flow Rate 3 3 10/22/24 03:15 10/22/24 04:00 10/22/24 05:52 Temperature 36.4 C Pulse Rate 62 62 66 Respiratory Rate 16 Blood Pressure 135/84 Pulse Oximetry 99 Oxygen Delivery Oxygen Flow Rate Intake/Output Intake/Output: Intake & Output 10/19/24 10/20/24 10/21/24 10/22/24 23:59 23:59 23:59 23:59 Intake Total 2620 225 Output Total 660 2890 590 Qxlucfm -660 -270 -365 Meds/Results Medications: Active Medications Generic Name Dose Route Start Last Admin Trade Name Freq PRN Reason Stop Dose Admin Acetaminophen 650 mg 10/20/24 15:57 Acetaminophen 325 Mg Tablet PO Q4H PRN Mild Pain (1-3) or Fever Albuterol 1 puff 10/20/24 18:52 Albuterol Sulfate (*Sp) Aerosol 1 Puff INHALATION QID PRN shortness of breath or wheezing Aspirin 81 mg 10/21/24 09:00 10/21/24 09:02 Aspirin 81 Mg Chewable Tablet PO 81 mg DAILY REJI Administration Furosemide 20 mg 10/20/24 21:00 10/21/24 20:15 Furosemide Inj 40 Mg/4 Ml Vial IV PUSH 20 mg Q12HR REJI Administration Metoprolol Succinate 100 mg 10/21/24 09:00 10/21/24 09:02 Metoprolol Succinate Ext Rel 100 Mg Tabcr PO 100 mg QAM REJI Administration Nitroglycerin 0.4 mg 10/20/24 16:12 Nitroglycerin Sl 0.4 Mg Tablet SUBLINGUAL Q5MIN PRN Chest Pain Potassium Chloride 20 meq 10/21/24 09:00 10/21/24 09:04 Potassium Chloride 20 Meq Packet (For Liquid) PO 20 meq DAILY REJI Administration Rosuvastatin Calcium 10 mg 10/20/24 21:00 10/21/24 20:15 Rosuvastatin 10 Mg Tablet PO 10 mg HS REJI Administration Sacubitril/Valsartan 1 tab 10/21/24 21:00 10/21/24 20:15 Sacubitril/Valsartan 24-26 Mg Tablet PO 1 tab Q12HR REJI Administration Spironolactone 12.5 mg 10/22/24 09:00 Spironolactone 12.5 Mg Tablet PO QAM [facility] Vitamin D 2,000 units 10/21/24 09:00 10/21/24 09:02 Cholecalciferol 1,000 Units Tablet PO 2,000 units DAILY REJI Administration Radiology Results: ITS Impressions Chest X-Ray 10/20/24 14:40 IMPRESSION: No change from previous examination. Renal Ultrasound 10/21/24 10:35 IMPRESSION: 1. 1.9 cm right renal cyst. Otherwise normal kidneys without hydronephrosis. Labs Labs: Laboratory Results - last 24 hr 10/21/24 10/22/24 16:48 04:08 WBC 9.6 RBC 4.70 Hgb 12.2 L Hct 39.9 L MCV 84.9 MCH 26.0 MCHC 30.6 L RDW 15.7 H Plt Count 301 MPV 9.8 Sodium 139 Potassium 3.0 L Chloride 97 L Carbon Dioxide 36 H Anion Gap 6 BUN 34 H D Creatinine 0.74 Estim Creat Clear Calc 67 Estimated GFR > 60 Glucose 96 Calcium 8.0 L Total Bilirubin 0.6 AST 141 H ALT 129 H Alkaline Phosphatase 109 Troponin I 0.063 H* NT-Pro-B Natriuret Pep 9790 H Total Protein 7.0 Albumin 3.5
[2024-10-22] MEDS: FUROSEMIDE INJ 40 MG/4 ML VIAL 20 MG IV PUSH (08:46)
[2024-10-22] MEDS: METOPROLOL SUCCINATE EXT REL 100 MG TABCR PO (08:47)
[2024-10-22] MEDS: POTASSIUM CHLORIDE 20 MEQ PACKET (FOR LIQUID) PO (08:47)
[2024-10-22] MEDS: ASPIRIN 81 MG CHEWABLE TABLET PO (08:47)
[2024-10-22] MEDS: SACUBITRIL/VALSARTAN 24-26 MG TABLET 1 TAB PO (08:47)
[2024-10-22] MEDS: SPIRONOLACTONE 12.5 MG TABLET PO (08:48)
[2024-10-22] MEDS: CHOLECALCIFEROL 1,000 UNITS TABLET 2000 UNITS PO (08:48)
--- NOTE | 2024-10-22 14:54 | PC.NURSE ---
Reviewed discharge education, medication, and information with the patient. NO questions at this time. IV removed.
--- NOTE | 2024-10-22 16:10 | P.DS_ITS ---
DS: Admitting Diagnosis Discharge Date 10/22/24 Admitting Diagnosis Shortness of breath DS: Discharge Diagnosis Discharge Diagnosis (1) Acute kidney injury: Code(s): N17.9 - Acute kidney failure, unspecified Status: Acute Assessment and Plan: - creatinine 1.67, BUN 52, GFR 40. Previously 0.73, BUN 22, and GFR >60. - check CK, urine sodium, protein/creatinine, urine creatinine, urea, urine osmolality, osmolality - renal US - UA unremarkable - monitor I&Os - consider nephrology consultation and postvoid residual if no improvement with diuresis. Volume overload r/t CHF exacerbation vs injury secondary to re- initiation of diuretic. Will treat as CHF exacerbation and monitor renal function closely. (2) Acute exacerbation of CHF (congestive heart failure): Qualifiers: Heart failure type: combined systolic and diastolic Qualified Code(s): I50.43 - Acute on chronic combined systolic (congestive) and diastolic (congestive) heart failure Code(s): I50.9 - Heart failure, unspecified Status: Acute Assessment and Plan: - BNP 76053 - most recent echo (08/23/24): Estimated EF 40-45%, systolic function mildly reduced, grade 1 diastolic dysfunction, pulmonary hypertension. See report for full details. - currently on Lasix 40 mg p.o. daily -> Lasix 20 mg IV b.i.d. - monitor I&Os and daily weights - trend renal function -Started on Entresto and Spironolactone (3) Elevated troponin: Code(s): R79.89 - Other specified abnormal findings of blood chemistry Status: Acute Assessment and Plan: - troponin: 0.047 -> 0.052, 6 hour ordered - denies active chest pain, reporting generalized weakness. - Suspect mild elevations secondary to volume overload -> increasing diuretic. - nitro SL p.r.n. - telemetry monitoring and admit to IMU (4) Atrial fibrillation: Qualifiers: Atrial fibrillation type: unspecified Qualified Code(s): I48.91 - Unspecified atrial fibrillation Code(s): I48.91 - Unspecified atrial fibrillation Status: Chronic Assessment and Plan: - EKG showed NSR - continue home medication - metoprolol. not on anticoagulation. (5) Hypertension: Qualifiers: Hypertension type: primary hypertension Qualified Code(s): I10 - Essential (primary) hypertension Code(s): I10 - Essential (primary) hypertension Status: Chronic Assessment and Plan: - chronic, currently 152/98 - continue home medications: Lasix, Metoprolol XL - monitor DS: Summary Hospital Course Hospital Course: 74 y/o M with PMH of CHF, HTN, HLD, vitamin-D deficiency, and atrial fibrillation presents here with generalized weakness and exertional SOB. The patient presents here from home on 10/20 for further evaluation of generalized weakness. He was initially evaluated on Thursday, 10/17. He was screened for DVT which was negative. Found to have an elevated BNP and hypoxia with ambulation. He reported he had stopped his diuretic for his CHF, off of medication for about a week. He was offered admission, he declined and elected to go home with strict return precautions. He was instructed to restart his diuretic. Returning today due to worsening shortness of breath with exertion and generalized weakness. He reports he has restarted his diuretic since that ER evaluation. He denies accompanying dysuria, change in UOP, chest pain, dizziness, or palpitations. Reports lower extremity edema - present for the past month. Initial VS at presentation: 97.5? F, HR 63, RR 19, 148/96, and 93% on RA. ED workup showed: No leukocytosis, hemoglobin 12.8 (previously 12.1 on 10/17), creatinine 1.67 and GFR 40 (previously 0.73 and GFR >60 on 10/17), lactic 2.3, troponin 0.047, BNP 70053, UA unremarkable, and viral PCR negative. CXR showed no change from previous exam. EKG showed sinus rhythm, rate 62, marked right axis deviation, RBBB. The patient was admitted in the setting of noncompliance with the medication. Cardiology evaluated the patient and advised the patient to be on aspirin, rosuvastatin, metoprolol, Entresto, SGLT2. On the day of discharge, the patient was seen and examined. Vital signs were stable. Physical exam were stable and labs were reviewed at length. Discharge instructions, medications, and follow-up appointments were discussed with the patient at length and all day questions were answered. ER warnings were given. Advise the patient importance of medication compliance, and the following instructions: Recommend outpatient RODERICK to further evaluate severity of mitral regurgitation Recommend outpatient stress test to evaluate for any underlying ischemia as cause of depressed EF Check daily weight and take medications regularly without missing doses. Status at Discharge Cognitive/behavioral status at discharge: Stable Time Spent with Patient Time attestation: Total time spent providing and/or coordinating discharge services: 45 minute Exam Narrative: 1+ pitting edema to BLE/ankles, symm. di minsihed in bases. mild exertional SOB noted during interview - walked approx 10 steps will talking and was mildly winded. resolved with rest. Const: General: comfortable Other: , male, nontoxic appearance. Mild respiratory distress noted with mild exertion and conversation, remained comfortable and resolved quickly. HENMT: Face/Nose/Sinus: Normal nares present Mouth: Yes moist mucous membranes Eyes: General: appearance normal, both eyes and all related structures Sclera: sclerae normal Pupils: Equal, round and reactive pupils present EOM: EOMs intact bilaterally Resp: Effort & Inspection: normal respiratory effort Other: Diminished at bases Cardio: Rate: regular rate Rhythm: regular rhythm Other: S1-S2 present without murmur, rub, ectopy GI: Other: Abdomen soft, nondistended, nontender. Normoactive bowel sounds in all quadrants. Skin: General skin exam: normal color and no rashes or lesions noted Wounds: no wounds Neuro: Cranial nerves: Yes Equal, round and reactive pupils present Speech: normal speech Motor exam (neuro): 5/5 motor strength present throughout Sensory Exam: normal sensation Other: A&O x4 Extrem: General: normal to inspection Psych: Mental Status: mental status grossly normal Affect: normal affect Other: Good insight and judgment, pleasant DS: Data Data Completed and Pending Labs on day of discharge: Labs from last 24 hours 10/22/24 10/21/24 04:08 16:48 WBC 9.6 RBC 4.70 Hgb 12.2 L Hct 39.9 L MCV 84.9 MCH 26.0 MCHC 30.6 L RDW 15.7 H Plt Count 301 MPV 9.8 Sodium 139 Potassium 3.0 L Chloride 97 L Carbon Dioxide 36 H Anion Gap 6 BUN 34 H D Creatinine 0.74 Estim Creat Clear Calc 67 Estimated GFR > 60 Glucose 96 Calcium 8.0 L Total Bilirubin 0.6 AST 141 H ALT 129 H Alkaline Phosphatase 109 Troponin I 0.063 H* NT-Pro-B Natriuret Pep 9790 H Total Protein 7.0 Albumin 3.5 Discharge Plan Discharge Attending physician on discharge: Rufus Bryan Consulting providers: Linda Dang Discharging Clinician: Rufus Bryan Anticipated Discharge Date/Time: 10/22/24 14:28 Patient Disposition: Home Activity: as tolerated Diet: heart healthy Discharge Instructions: Recommend outpatient RODERICK to further evaluate severity of mitral regurgitation Recommend outpatient stress test to evaluate for any underlying ischemia as cause of depressed EF Check daily weight and take medications regularly without missing doses. Check blood pressure 1 to 2 times a day. Record and bring into your doctor for review. Call your doctor if your blood pressure is greater than 180/110 or less than 90/45. Walk with cane or other assist device. Take precautions to avoid falls. Rise slowly from a lying or sitting position. Pause before standing or walking. Contact your doctor or call 911 and come to the Emergency Room if you have any type of trauma, lightheadedness with standing or other worrisome symptoms. Avoid NSAIDs (ibuprofen, naproxen, Aleve). Tylenol is safe to take. Follow-up with your primary care provider in 1-2 weeks. Please call for appointment. Follow-up with Cardiology in 2-4 weeks. Please call for an appointment. Thank you for using [facility] for your health care needs. Patient Instructions: Antibiotic Form Patient Language: Moroccan Stand Alone Forms: General Discharge Information Follow-up/Referrals: Linda Dang MD [Physician] - [facility] [Primary Care Provider] - Discharge Medications: New nitroglycerin [Nitrostat] 0.4 mg Tablet, Sublingual 0.4 mg sublingual Q5MIN PRN (Reason: Chest Pain) Qty: 30 0RF Entresto 24-26 mg Tablet 1 tab PO Q12HR Qty: 30 0RF spironolactone 25 mg tablet 12.5 mg PO DAILY Qty: 30 0RF empagliflozin 10 mg tablet 10 mg PO DAILY Qty: 30 0RF Continued aspirin 81 mg tablet,chewable 81 mg PO DAILY cholecalciferol (vitamin D3) 50 mcg (2,000 unit) capsule 2,000 unit PO DAILY furosemide 40 mg Tablet 40 mg PO DAILY Qty: 30 1RF metoprolol succinate [Toprol XL] 100 mg Tablet Extended Release 24 Hr 100 mg PO QAM Qty: 60 0RF potassium chloride 20 mEq Packet 20 meq PO DAILY Qty: 30 0RF rosuvastatin [Crestor] 20 mg tablet 10 mg PO HS Qty: 30 0RF albuterol sulfate [Ventolin HFA] 90 mcg/actuation HFA aerosol inhaler 1 inh inhalation QID PRN (Reason: shortness of breath or wheezing) Qty: 8.5 2RF Date of admission: 10/20/24 16:29 Primary Care Provider: [facility] Admitting Provider: Crystal Verdin Attending physician on admission: Crystal Verdin Condition: Stable Hospitalist MIPS Heart Failure (Qualifier) Patient has current or prior documentation of LVEF less than or equal to 40%, or mod/servere depressed LVSF?: Yes IF NO, STOP HERE If Yes, Heart Failure (Qualifier) Patient was prescribed or already taking an Angiotensin-Converting Enzyme (MORELIA) Inhibitor, or Antiotensin Receptor Russell (ARB): Yes Patient was prescribed or already taking bisoprolol, carvedilol, or sustained release metoprolol succinate: Yes
--- OUTSIDE RECORDS SUMMARY | 2024-10-24 07:40 | XMS_ITS | Clinical Summary ---
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 Scapholunate ligament injury , no instability, left, initial encounter 12/28/2017 Encounters Date Type Department Care Team Description 09/07/2024 Orders Only [facility] Medical Group Cardiology [address] [place] [address] Linda Dang MD 09/06/2024 Telephone [facility] Care Organization [address] [place] [address] Caitlin Queen MA Unsuccessful Phone Call 1 ([employer] AWV) 08/31/2024 Orders Only [facility] Medical [facility] Cardiology [address] [place] [phone] Linda Dang MD 08/30/2024 Orders Only [facility] Medical [facility] Cardiology [address] [place] [phone] Linda Dang MD 08/22/2024 5:19 PM CDT - 08/22/2024 8:28 PM CDT Emergency [facility] Emergency Department [address] [place] [address] Discharge Disposition: Left without being seen 08/15/2024 8:47 AM ACCOUNTANT ASSISTANT - 08/15/2024 3:05 PM ACCOUNTANT ASSISTANT Emergency [facility] Emergency Department [address] [place] [address] Gayla Malcolm MD Atrial fibrillation with controlled [...] on file Legal Sex Male 1:47 AM ACCOUNTANT ASSISTANT Gender Identity Not on file Sexual Orientation [...] history exists Medical Devices Implanted Type Area Test Eng Device Identifier Shelf Expiration Date Model / Serial / Lot JobSlot 8600-5x05 Graftjacket [id number] Regenerative Nonmesh Standard Graft - [id number] Implanted:Qty: 1 on 07/06/2018 by Kirby Rm III, MD at [facility] Left: Wrist JobSlot 01/13/2020 [id number] / / [id number] Procedures Procedure Name Priority Date/Time Associated [...] T HIGH-SENSITIVITY 2-HOUR Timed 08/15/2024 11:29 AM ACCOUNTANT ASSISTANT URINALYSIS AND REFLEX TO MICROSCOPIC AND CULTURE STAT 08/15/2024 11:29 AM ACCOUNTANT ASSISTANT EGFR STAT 08/15/2024 10:37 AM ACCOUNTANT ASSISTANT HEPATIC FUNCTION PANEL STAT 10:37 AM ACCOUNTANT ASSISTANT PRO B-TYPE NATRIURETIC PEPTIDE Add-On 08/15/2024 10:37 AM ACCOUNTANT ASSISTANT CREATININE STAT 08/15/2024 10:37 AM ACCOUNTANT ASSISTANT CBC WITHOUT DIFFERENTIAL STAT 08/15/2024 10:37 AM ACCOUNTANT ASSISTANT TROPONIN T HIGH-SENSITIVITY 2-HOUR Timed 08/15/2024 10:37 AM ACCOUNTANT ASSISTANT EGFR STAT 08/15/2024 9:00 AM ACCOUNTANT ASSISTANT APTT STAT 08/15/2024 9:00 AM ACCOUNTANT ASSISTANT PROTIME-INR STAT 08/15/2024 9:00 AM ACCOUNTANT ASSISTANT DIFFERENTIAL AUTO STAT 08/15/2024 9:0 0 AM ACCOUNTANT ASSISTANT TROPONIN T HIGH-SENSITIVITY SERIES (BASELINE, 2HR, 4HR, 6HR) STAT 08/15/2024 9:00 AM ACCOUNTANT ASSISTANT CBC WITH AUTO DIFFERENTIAL STAT 08/15/2024 9:00 AM ACCOUNTANT ASSISTANT COMPREHENSIVE METABOLIC PANEL STAT 08/15/2024 9:00 AM ACCOUNTANT ASSISTANT INFLUENZA A/B, RSV, AND COVID-19 PCR STAT 08/15/2024 9:00 AM ACCOUNTANT ASSISTANT XR CHEST PA LATERAL 2 VIEWS ED 08/15/2024 8:49 AM ACCOUNTANT ASSISTANT ECG 12-LEAD STAT 08/15/2024 8:26 AM ACCOUNTANT ASSISTANT COLONOSCOPY 07/16/2017 7:32 AM ACCOUNTANT ASSISTANT from Last 3 Months or Most Recently [...] PM CDT 08/22/2024 5:40 PM CDT us Tiom Holder MD LAB BLOOD ORDERABLES Final Result [facility] ([place]) 1 [facility] Department [place] [address] * (ABNORMAL) Pro B-type natriuretic peptide (08/22/2024 [...] ORDERABLES Final Resu lt Performing Organization Address City/[facility]/ZIP Co de Phone Number [facility] ([place]) 1 [facility] [employer] [place] [address] [place] [address] * (ABNORMAL) CBC with auto differential (08/22/2024 [...] BLOOD ORDERABLES Final Result Performing Organization Address City/[facility]/ZIP Co de Phone Number [facility] ([place]) 1 [facility] of [address] [place] [address] * (ABNORMAL) Manual Differential (08/22/2024 5:36 PM [...] ORDERABLES Final Result [facility] ([place]) 1 [facility] Department of Laboratories [place], [place] [id number] * Lipase (08/22/2024 5:36 PM CDT) Lipase 95 10 - 99 Units/L Blood Venous blood specimen / Unknown 08/22/2024 5:36 PM CDT 08/22/2024 5:40 PM CDT us Timo Holder MD LAB BLOOD ORDERABLES Final Result [facility] ([place]) 1 [facility] Department [place] [address] * Comprehensive metabolic panel (08/22/2024 5:36 PM [...] BLOOD ORDERABLES Final Result Performing Organization Address [facility] Co de Phone Number [facility] 1 [facility] [place] [address] * (ABNORMAL) Troponin T high-sensitivity 2-hour (08/15/2024 11:29 AM ACCOUNTANT ASSISTANT) Trop T hs 26(H) <=22 ng/L Comment: Interpretive Data For further hscTnT resources including the diagnostic algorithm and an aid in interpretation, copy and paste this link: https://nrl.testcatalog.org/show/hsTrop Current Interpretive Data last revised 2020. Trop T hs delta See Comment ng/L CE [facility] ([place]) Comment:unable to calculate Trop T hs pct delta See Comment % [facility] ([place]) Comment:unable to calculate Trop T hs interp See Comment C ERNZULLY [facility] ([place]) Comment:unable to calculate Blood 08/15/2024 11:2 9 AM ACCOUNTANT ASSISTANT 08/15/2024 11:31 AM ACCOUNTANT ASSISTANT Gayla Malcolm MD LAB BLOOD ORDERABLES Alanna l Result Performing Organization Address [facility] Co de Phone Number [facility] ([place]) 1 [facility] [place] [address] * Urinalysis reflex to microscopic and culture Urine (08/15/2024 11:29 AM ACCOUNTANT ASSISTANT) Color, ur Straw Yellow Clarity, ur Clear Clear [facility] ([place]) Specific gravity, ur 1.008 1.003 - 1.030 [facility] ([place]) pH, urine 6.5 [facility] ([place]) Comment: Interpretive Data U rine pH is affected by diet, medications, systemic acid-base disturbances, and renal tubular function. pH may affect urinary stone formation. For example, urine pH below 6.0 may help reduce the tendency for calcium phosphate stones and pH greater than 6.0 may reduce the tendency for uric acid stone formation. Source: [facility] Current Interpretive Data was [...] [facility] ([place]) Urine 08/15/2024 11:2 9 AM ACCOUNTANT ASSISTANT 08/15/2024 11:31 AM ACCOUNTANT ASSISTANT Gayla Malcolm MD LAB MICROBIOLOGY - GENERA L ORDERABLES Final Result Performing Organization Address City/[facility] Co de Phone Number [facility] ([place]) 1 [facility] Department [place] [address] * (ABNORMAL) Troponin T high-sensitivity 2-hour (08/15/2024 10:37 AM ACCOUNTANT ASSISTANT) Trop T hs 26(H) <=22 ng/L Comment: Interpretive Data For further hscTnT resources including the diagnostic algorithm and an aid in interpretation, copy and paste this link: https://nrl.testcatalog.org/show/hsTrop Current Interpretive Data last revised 2020. Trop T hs interp See Comment C ELISA [facility] ([place]) Comment:Delta calculation an d interpretation not available. Blood 08/15/2024 10:3 7 AM ACCOUNTANT ASSISTANT 08/15/2024 10:38 AM ACCOUNTANT ASSISTANT Gayla Malcolm MD LAB BLOOD ORDERABLES Alanna l Result [facility] [place]) 1 [facility] Department [place] [address] * eGFR (08/15/2024 10:37 AM ACCOUNTANT ASSISTANT) eGFR >90 >=60 mL/min/1. 73 m2 Comment: [...] reviewed 2021. Blood 08/15/2024 10:3 7 AM ACCOUNTANT ASSISTANT 08/15/2024 10:39 AM ACCOUNTANT ASSISTANT us Gayla Malcolm MD LAB BLOOD ORDERABLES Alanna l Result Performing Organization Address City/[facility]/ZIP Co de Phone Number [facility] ([place]) 1 [facility] Department [address] [place] [address] * (ABNORMAL) Pro B-type natriuretic peptide (08/15/2024 10:37 AM ACCOUNTANT ASSISTANT) NT-proBNP 4,819(H) <=450 pg/mL Comment: Interpretive Comments: [...] Date: 2018. Blood 08/15/2024 10:3 7 AM ACCOUNTANT ASSISTANT 08/15/2024 10:39 AM ACCOUNTANT ASSISTANT us Gayla Malcolm MD LAB BLOOD ORDERABLES Edit ed Result - [facility] 1 [facility] Department of Laboratories [place], [place] [id number] * (ABNORMAL) CBC without differential (08/15/2024 10:37 AM ACCOUNTANT ASSISTANT) WBC 8.8 3.8 - 9.9 K/cumm Hgb [...] [facility] ([place]) Blood 08/15/2024 10:3 7 AM ACCOUNTANT ASSISTANT 08/15/2024 10:38 AM ACCOUNTANT ASSISTANT Narrative [facility] ([place]) - 08/15/2024 10:41 AM ACCOUNTANT ASSISTANT Baseline prior to enoxaparin initiation. Gayla Malcolm MD LAB BLOOD ORDERABLES Alanna l Result Performing Organization Address City/[facility]/ZIP Co de Phone Number [facility] ([place]) 1 [facility] [address] * (ABNORMAL) Creatinine (08/15/2024 10:37 AM ACCOUNTANT ASSISTANT) Creatinine 0.72(L) 0.80 - 1.30 mg/dL Blood 08/15/2024 10:3 7 AM ACCOUNTANT ASSISTANT 08/15/2024 10:39 AM ACCOUNTANT ASSISTANT Narrative [facility] ([place]) - 08/15/2024 11:27 AM ACCOUNTANT ASSISTANT Baseline prior to enoxaparin initiation. Gayla Malcolm MD LAB BLOOD ORDERABLES Alanna l Result [facility] ([place]) 1 [facility] [place] [address] * Hepatic function panel (08/15/2024 10:37 AM ACCOUNTANT ASSISTANT) Bilirubin, total 0.3 0.1 - 1.2 mg/dL [...] [facility] ([place]) Blood 08/15/2024 10:3 7 AM ACCOUNTANT ASSISTANT 08/15/2024 10:39 AM ACCOUNTANT ASSISTANT Gayla Malcolm MD LAB BLOOD ORDERABLES Alanna l Result Performing Organization Address City/[facility] Co de Phone Number [facility] ([place]) [address] [place] [address] [place] [address] * (ABNORMAL) Troponin T high-sensitivity series (baseline, 2hr, 4hr, 6hr) (08/15/2024 9:00 AM ACCOUNTANT ASSISTANT) Pathologist [facility] Trop T hs 23(H) <=22 ng/L Comment: Interpretive Data For further hscTnT resources including the diagnostic algorithm and an aid in interpretation, copy and paste this link: https://nrl.testcatalog.org/show/hsTrop Current Interpretive Data last revised 2020. Testing performed by: [facility], [address] [place] [address]., [address] Blood 08/15/2024 9:00 AM ACCOUNTANT ASSISTANT 08/15/2024 9:06 AM ACCOUNTANT ASSISTANT Gayla Malcolm MD LAB BLOOD ORDERABLES Alanna l Result Performing Organization Address City/[facility]/ZIP Co de Phone Number [facility] ([place]) [address] [place] [address] [address] [place] [address] * Influenza A/B, RSV, and COVID-19 PCR Nasopharyngeal (08/15/2024 9:00 AM ACCOUNTANT ASSISTANT) [facility] COVID-19 RNA Negative Negative Influenza A RNA Negative Negative [facility] ([place]) Influenza B RNA Negative Negative [facility] ([place]) RSV RNA Negative Negative [facility] ([place]) Comment: Interpretive data: Testing performed by [facility]. This test is performed using the Portable Internet Xpert Xpress CoV-2/Flu/RSV plus assay. This is [...] revised 2023 Nasopharyngeal 08/15/2024 9: 00 AM ACCOUNTANT ASSISTANT 08/15/2024 9:06 AM ACCOUNTANT ASSISTANT Narrative [facility] ([place]) - 08/15/2024 9:50 AM ACCOUNTANT ASSISTANT Is the Patient experiencing symptoms consistent with COVID?->Yes Gayla Malcolm MD LAB MICROBIOLOGY - GENERA L ORDERABLES Final Result [facility] ([place]) 1 [facility] Department [place] [address] * eGFR (08/15/2024 9:00 AM ACCOUNTANT ASSISTANT) eGFR >90 >=60 mL/min/1. 73 m2 Comment: [...] was last reviewed 2021. Testing performed by: [facility], [address] [place] [address], [place]., [address] Blood 08/15/2024 9:00 AM ACCOUNTANT ASSISTANT 08/15/2024 10:54 AM ACCOUNTANT ASSISTANT Gayla Malcolm MD LAB BLOOD ORDERABLES Alanna grimaldo Result [facility] ([place]) 1 [facility] Department [place] [address] * Differential, auto (08/15/2024 9:00 AM ACCOUNTANT ASSISTANT) Neutrophil abs 4.5 1.5 - 6.5 K/cumm [...] revised on 2017. Blood 08/15/2024 9:00 AM ACCOUNTANT ASSISTANT 08/15/2024 9:06 AM ACCOUNTANT ASSISTANT Gayla Malcolm MD LAB BLOOD ORDERABLES Alanna l Result [facility] ([place]) 1 [facility] Department [place] [address] * (ABNORMAL) CBC with auto differential (08/15/2024 9:00 AM ACCOUNTANT ASSISTANT) WBC 8.1 3.8 - 9.9 K/cumm Hgb [...] 47.2 35.7 - 48.1 fL [facility] ([place]) NRBC abs 0.00 0.00 - 0.01 K/cumm [facility] ([place]) Blood 08/15/2024 9:00 AM ACCOUNTANT ASSISTANT 08/15/2024 9:06 AM ACCOUNTANT ASSISTANT Gayla Malcolm MD LAB BLOOD ORDERABLES Alanna l Result Performing Organization Address [facility] Co de Phone Number [facility] ([place]) 1 [facility] [place] [address] * aPTT (08/15/2024 9:00 AM ACCOUNTANT ASSISTANT) aPTT 36 28 - 38 sec [facility] ([place]) Comment: Interpretive Data Heparin therapeutic range: 66.0 - 100.0 seconds. Range based on correlation with therapeutic heparin activity range of 0.3 - 0.7 Units/mL. Current interpretive data was last revised on 2023. Blood 08/15/2024 9:00 AM ACCOUNTANT ASSISTANT 08/15/2024 10:24 AM ACCOUNTANT ASSISTANT Narrative [facility] ([place]) - 08/15/2024 10:31 AM ACCOUNTANT ASSISTANT Baseline prior to enoxaparin initiation. Gayla Malcolm MD LAB BLOOD ORDERABLES Alanna l Result Performing Organization Address [facility] Co de Phone Number [facility] ([place]) 1 [facility] [place] [address] * Protime-INR (08/15/2024 9:00 AM ACCOUNTANT ASSISTANT) PT 12.8 9.7 - 13.0 sec [facility] ([place]) INR 1.18 0.90 - 1.20 [facility] ([place]) Comment: Interpretive data Oral anticoagulant therapeutic ranges: Venous thromboembolism prophylaxis or treatment: 2.0-3.0 CARDIOLOGY Standard range: 2.0-3.0 High-intensity range: 2.5-3.5 Refer to indication-specific guidelines for appropriate target ranges for prosthetic heart valve replacement. Current interpretive data was last revised on 2019. Blood 08/15/2024 9:00 AM ACCOUNTANT ASSISTANT 08/15/2024 10:24 AM ACCOUNTANT ASSISTANT Narrative [facility] ([place]) - 08/15/2024 10:31 AM ACCOUNTANT ASSISTANT Baseline prior to enoxaparin initiation. Gayla Malcolm MD LAB BLOOD ORDERABLES Alanna dillan Result [facility] ([place]) 1 [facility] Department [place] [address] * (ABNORMAL) Comprehensive metabolic panel (08/15/2024 9:00 AM ACCOUNTANT ASSISTANT) Sodium 146(H) 135 - 145 mmol/L Comment:Testing performed by : [address] [address] Potassium, pl 4.5 3.3 - 4.9 mmol/L [facility] ([place]) Comment:Testing performed by : [address], [address] Chloride 108 97 - 110 mmol/L [facility] ([place]) Comment:Testing performed by : [address], [address] CO2 27 22 - 32 mmol/L [facility] ([place]) Comment:Testing performed by : [address] [address] Anion gap 11 2 - 15 mmol/L [facility] ([place]) Comment:Testing performed by : [address], [address] BUN 14 6 - 25 mg/dL [facility] ([place]) Comment:Testing performed by : [address], [address] Creatinine 0.77(L) 0.80 - 1.30 mg/dL [facility] ([place]) Comment:Testing performed by : [address], [address] Glucose 98 70 - 199 mg/dL [facility] [...] was last revised 2022. Testing performed by: [facility], [address] [place] [address]., [address] Calcium 8.8 8.5 - 10.3 mg/dL [facility] ([place]) Comment:Testing performed by : [address], [address] Bilirubin, total 0.3 0.1 - 1.2 mg/dL [facility] ([place]) Comment:Testing performed by : [address], [address] Protein, pl 7.2 6.5 - 8.5 g/dL [facility] ([place]) Comment:Testing performed by : [address], [address] Albumin 3.8 3.5 - 5.0 g/dL [facility] ([place]) Comment:Testing performed by : [address] [address] Alk phos 71 40 - 130 Units/L [facility] ([place]) Comment:Testing performed by : [address], [address] ALT 17 7 - 55 Units/L [facility] ([place]) Comment:Testing performed by : [address], [address] AST 32 10 - 50 Units/L [facility] ([place]) Comment:Testing performed by : [address], [address] Blood 08/15/2024 9:00 AM ACCOUNTANT ASSISTANT 08/15/2024 9:06 AM ACCOUNTANT ASSISTANT Gayla Malcolm MD LAB BLOOD ORDERABLES Alanna grimaldo Result [facility] [place] [facility] Department [place] [address] * XR Chest PA Lateral 2 Views (08/15/2024 8:49 AM ACCOUNTANT ASSISTANT) Anatomical Region Laterality Modality Body, Chest N/A Computed Radiogr aphy 08/15/2024 9:00 AM ACCOUNTANT ASSISTANT Narrative 08/15/2024 9:01 AM ACCOUNTANT ASSISTANT EXAM DESCRIPTION: XR CHEST PA LATERAL 2 [...] 9:01 AM - Electronically signed by Amari Robrets M.D. MM: MM Report ID: [id number] Reading Location: [id number] Procedure Note Amari Roberts MD - 08/15/2024 [...] Amari Roberts M.D. MM: MM Report ID: [id number] Reading Location: [place] [address] Gayla Malcolm MD IMG XR PROCEDURES Final R esult * COLONOSCOPY (07/16/2017 7:32 AM ACCOUNTANT ASSISTANT) Anatomical Region Laterality Modality Other Narrative Procedure Note Michael Bran MD - 07/16/2017 7:32 AM CST [facility] Patient Name: Js Contreras Procedure Date: 07/16/2017 7:32 AM Date of : 1950 Admit Type: Outpatient Age: 67 Gender: Male Attending MD: Michael Gonzalez M.D. Room: [facility] ENDOSCOPY ROOM 2 Note Status: Finalized [...] scope was passed under direct vision.The Colonoscope [id number] was introducedthrough the anus and advanced to [...] 7:32 AM Procedure Code(s): --- Professional --- 03631, Colonoscopy, flexible; with removal of tumor(s), polyp(s), or other lesion(s) by snare technique Diagnosis Code(s): --- Professional --- Z86.010, Personal history of colonic polyps K64.8, Other hemorrhoids D12.5, Benign neoplasm of sigmoid colon K57.30, Diverticulosis of large intestine without perforation orabscess without bleeding CPT copyright 2014 [employer]. All rights reserved. The codes documented in this report are preliminary and upon new media strategist reviewmay be revised to meet current compliance requirements. Recognized by the [employer] for promoting quality in endoscopy Michael Shaw MD ENDOSCOPY PROCEDUR ES Final Result from Last 3 Months or Most Recently Relevant to Health Maintenance Insurance [employer] CHO[employer] MEDICARE PPO Member Subscriber Plan / Payer (Ef fective 2017-Present) Name:Js Contreras Relation to Subscriber:Self Name:Js Contreras Payer ID:[id number] (NAIC) Type:MEDICARE RISK OTHER Address: [address] MEDICARE [facility] MEDICARE GENERIC RISK OTHER [employer] CHOICE MEDICARE PPO MEDICARE [facility] A[employer] MEDICARE GOLD [facility] UHC MEDICARE ADVANTAGE Care Teams Solar Energy Sales Specialist Relationship Specialty Start Date End Date Unknown, Notinfile PCP - General 07/09/23
--- OUTSIDE RECORDS SUMMARY | 2024-10-24 07:40 | XMS_ITS | Referral Summary ---
Author Organization [facility] Address [address] [place] [address] Care Team Providers Care Biometric Technician Name Role Phone Unknown, Notinfile Primary Care Provider Unavail able Encounters Date Type Department Care Team Description 09/07/2024 Orders Only [facility] Medical Group Cardiology [address] [facility] [address] [place] [phone] Linda Dang MD 09/06/2024 Telephone [facility] Accountable Care Organization [address] [place] [phone] Caitlin Queen MA Unsuccessful Phone Call 1 ([employer] AWV) 08/31/2024 Orders Only [facility] Medical Group Cardiology [address] [facility] [address] [place] [phone] Linda Dang MD 08/30/2024 Orders Only [facility] Medical [facility] Cardiology [address] [facility] [address] [place] [phone] Linda Dang MD 08/22/2024 5:19 PM CDT - 08/22/2024 8:28 PM CDT Emergency [facility] Emergency Department [address] [place] [address] Discharge Disposition: Left without being seen 08/15/2024 8:47 AM PLANNING SUPERVISOR - 08/15/2024 3:05 PM PLANNING SUPERVISOR Emergency [facility] Emergency Department [address] [place] [address] Gayla Malcolm MD Atrial fibrillation with controlled [...] needed Assessment & Plan (07/23/2018 12:58 PM PLANNING SUPERVISOR): Reports compliance with wound care/splinting/hand therapy Healing [...] on file Legal Sex Male 1:47 AM PLANNING SUPERVISOR Gender Identity Not on file Sexual Orientation [...] on file Medical Devices Implanted Type Area Supervisor [employer] Device Identifier Shelf Expiration Date Model / Serial / Lot [employer] 8600-5x05 Graftjacket [id number] Regenerative Nonmesh Standard Graft - [id number] Implanted:Qty: 1 on 07/06/2018 by Kirby Rm III, MD at [facility] Left: Wrist [employer] 01/13/2020 8600-5X05 / / [id number] Procedures Procedure Name Priority Date/Time Associated [...] T HIGH-SENSITIVITY 2-HOUR Timed 08/15/2024 11:29 AM PLANNING SUPERVISOR URINALYSIS AND REFLEX TO MICROSCOPIC AND CULTURE STAT 08/15/2024 11:29 AM PLANNING SUPERVISOR EGFR STAT 08/15/2024 10:37 AM PLANNING SUPERVISOR HEPATIC FUNCTION PANEL STAT 10:37 AM PLANNING SUPERVISOR PRO B-TYPE NATRIURETIC PEPTIDE Add-On 08/15/2024 10:37 AM PLANNING SUPERVISOR CREATININE STAT 08/15/2024 10:37 AM PLANNING SUPERVISOR CBC WITHOUT DIFFERENTIAL STAT 08/15/2024 10:37 AM PLANNING SUPERVISOR TROPONIN T HIGH-SENSITIVITY 2-HOUR Timed 08/15/2024 10:37 AM PLANNING SUPERVISOR EGFR STAT 08/15/2024 9:00 AM PLANNING SUPERVISOR APTT STAT 08/15/2024 9:00 AM PLANNING SUPERVISOR PROTIME-INR STAT 08/15/2024 9:00 AM PLANNING SUPERVISOR DIFFERENTIAL AUTO STAT 08/15/2024 9:0 0 AM PLANNING SUPERVISOR TROPONIN T HIGH-SENSITIVITY SERIES (BASELINE, 2HR, 4HR, 6HR) STAT 08/15/2024 9:00 AM PLANNING SUPERVISOR CBC WITH AUTO DIFFERENTIAL STAT 08/15/2024 9:00 AM PLANNING SUPERVISOR COMPREHENSIVE METABOLIC PANEL STAT 08/15/2024 9:00 AM PLANNING SUPERVISOR INFLUENZA A/B, RSV, AND COVID-19 PCR STAT 08/15/2024 9:00 AM PLANNING SUPERVISOR XR CHEST PA LATERAL 2 VIEWS ED 08/15/2024 8:49 AM PLANNING SUPERVISOR ECG 12-LEAD STAT 08/15/2024 8:26 AM PLANNING SUPERVISOR COLONOSCOPY 07/16/2017 7:32 AM PLANNING SUPERVISOR from Last 3 Months or Most Recently [...] MD LAB BLOOD ORDERABLES Final Result [facility] ([place]) [facility] Department of Laboratories [place], [place] [id number] * (ABNORMAL) Pro B-type natriuretic peptide (08/22/2024 [...] Final Resu lt [facility] ([place]) [address] [facility] [place] [address] * (ABNORMAL) CBC with auto differential (08/22/2024 [...] ORDERABLES Final Result [facility] ([place]) [address] [facility] Department [place] [address] * (ABNORMAL) Manual Differential (08/22/2024 5:36 PM [...] Result [facility] ([place]) 1 [facility] [place] [address] * Lipase (08/22/2024 5:36 PM CDT) Lipase 95 10 - 99 Units/L Blood Venous blood specimen / Unknown 08/22/2024 5:36 PM CDT 08/22/2024 5:40 PM CDT Timo Holder MD LAB BLOOD ORDERABLES Final Result Performing Organization Address City/[facility]/ZIP Co de Phone Number [facility] ([place]) [address] [place] [address] * Comprehensive metabolic panel (08/22/2024 5:36 PM CDT) Sodium 141 135 - 145 mmol/L Potassium, pl 4.6 3.3 - 4.9 mmol/L [facility] ([place]) Chloride 99 97 - 110 mmol/L [facility] ([place]) CO2 31 22 - 32 mmol/L [facility] [place]) Anion gap 11 2 - 15 mmol/L [facility] ([place]) BUN 19 6 - 25 mg/dL [facility] Creatinine 0.82 0.80 - 1.30 mg/dL [facility] ([place]) Glucose 98 70 - 199 mg/dL [facility] ([place]) Comment: Interpretive Data [...] BLOOD ORDERABLES Final Result Performing Organization Address [facility] Co de Phone Number [facility] ([place]) [address] [facility] [place] [address] * (ABNORMAL) Troponin T high-sensitivity 2-hour (08/15/2024 11:29 AM PLANNING SUPERVISOR) Trop T hs 26(H) <=22 ng/L Comment: [...] to calculate Blood 08/15/2024 11:2 9 AM PLANNING SUPERVISOR 08/15/2024 11:31 AM PLANNING SUPERVISOR us Gayla Malcolm MD LAB BLOOD ORDERABLES Alanna l Result Performing Organization Address [facility]/ZIP Co de Phone Number [facility] ([place]) [address] [facility] [place] [address] * Urinalysis reflex to microscopic and culture Urine (08/15/2024 11:29 AM PLANNING SUPERVISOR) Color, ur Straw Yellow Clarity, ur Clear [...] tendency for uric acid stone formation. Source: [facility] Current Interpretive Data was last revised on [...] [facility] ([place]) Urine 08/15/2024 11:2 9 AM PLANNING SUPERVISOR 08/15/2024 11:31 AM PLANNING SUPERVISOR us Gayla Malcolm MD LAB MICROBIOLOGY - GENERA L ORDERABLES Final Result [facility] ([place] [address] [facility] Department [place] [address] * (ABNORMAL) Troponin T high-sensitivity 2-hour (08/15/2024 10:37 AM PLANNING SUPERVISOR) Trop T hs 26(H) <=22 ng/L Comment: Interpretive Data For further hscTnT resources including the diagnostic algorithm and an aid in interpretation, copy and paste this link: https://nrl.testcatalog.org/show/hsTrop Current Interpretive Data last revised 2020. Trop T hs interp See Comment C ELISA [facility] ([place]) Comment:Delta calculation an d interpretation not available. Blood 08/15/2024 10:3 7 AM PLANNING SUPERVISOR 08/15/2024 10:38 AM PLANNING SUPERVISOR Gayla Malcolm MD LAB BLOOD ORDERABLES Alanna l Result Performing Organization Address City/[facility] Co de Phone Number [facility] ([place]) [address] [facility] [place] [address] * eGFR (08/15/2024 10:37 AM PLANNING SUPERVISOR) eGFR >90 >=60 mL/min/1. 73 m2 Comment: [...] reviewed 2021. Blood 08/15/2024 10:3 7 AM PLANNING SUPERVISOR 08/15/2024 10:39 AM PLANNING SUPERVISOR Gayla Malcolm MD LAB BLOOD ORDERABLES Alanna l Result Performing Organization Address [facility]/ZIP Co de Phone Number [facility] ([place]) [address] [facility] [place] [address] * (ABNORMAL) Pro B-type natriuretic peptide (08/15/2024 10:37 AM PLANNING SUPERVISOR) NT-proBNP 4,819(H) <=450 pg/mL Comment: Interpretive Comments: [...] Date: 2018. Blood 08/15/2024 10:3 7 AM PLANNING SUPERVISOR 08/15/2024 10:39 AM PLANNING SUPERVISOR us Gayla Malcolm MD LAB BLOOD ORDERABLES Edit ed Result - Final [facility] [place]) [address] [facility] Department [place] [address] * (ABNORMAL) CBC without differential (08/15/2024 10:37 AM PLANNING SUPERVISOR) WBC 8.8 3.8 - 9.9 K/cumm Hgb [...] [facility] ([place]) Blood 08/15/2024 10:3 7 AM PLANNING SUPERVISOR 08/15/2024 10:38 AM PLANNING SUPERVISOR Narrative [facility] ([place]) - 08/15/2024 10:41 AM PLANNING SUPERVISOR Baseline prior to enoxaparin initiation. Gayla Malcolm MD LAB BLOOD ORDERABLES Alanna l Result [facility] ([place]) [address] [facility] Department [place] [address] * (ABNORMAL) Creatinine (08/15/2024 10:37 AM PLANNING SUPERVISOR) Creatinine 0.72(L) 0.80 - 1.30 mg/dL Blood 08/15/2024 10:3 7 AM PLANNING SUPERVISOR 08/15/2024 10:39 AM PLANNING SUPERVISOR Narrative [facility] ([place]) - 08/15/2024 11:27 AM PLANNING SUPERVISOR Baseline prior to enoxaparin initiation. Gayla Malcolm MD LAB BLOOD ORDERABLES Alanna l Result Performing Organization Address City/[facility]/ZIP Co de Phone Number [facility] ([place]) [address] [place] [address] * Hepatic function panel (08/15/2024 10:37 AM PLANNING SUPERVISOR) Bilirubin, total 0.3 0.1 - 1.2 mg/dL Bilirubin, direct 0.1 0.1 - 0.3 mg/dL [facility] ([place]) Protein, pl 6.9 6.5 - 8.5 g/dL [facility] ([place]) Albumin 3.8 3.5 - 5.0 g/dL [facility] ([place]) Alk phos 69 40 - 130 Units/L [facility] ([place]) ALT 14 7 - 55 Units/L [facility] ([place]) AST 21 10 - 50 Units/L [facility] ([place]) Blood 08/15/2024 10:3 7 AM PLANNING SUPERVISOR 08/15/2024 10:39 AM PLANNING SUPERVISOR Gayla Malcolm MD LAB BLOOD ORDERABLES Alanna l Result Performing Organization Address [facility] Co de Phone Number [facility] ([place]) [address] [place] [address] * (ABNORMAL) Troponin T high-sensitivity series (baseline, 2hr, 4hr, 6hr) (08/15/2024 9:00 AM PLANNING SUPERVISOR) Pathologist [facility] Trop T hs 23(H) <=22 ng/L Comment: Interpretive Data For further hscTnT resources including the diagnostic algorithm and an aid in interpretation, copy and paste this link: https://nrl.testcatalog.org/show/hsTrop Current Interpretive Data last revised 2020. Testing performed by: [facility], [address] [place] [address], [place] [address] Blood 08/15/2024 9:00 AM PLANNING SUPERVISOR 08/15/2024 9:06 AM PLANNING SUPERVISOR Gayla Malcolm MD LAB BLOOD ORDERABLES Alanna l Result [facility] [place] 1 [facility] [place] [address] * Influenza A/B, RSV, and COVID-19 PCR Nasopharyngeal (08/15/2024 9:00 AM PLANNING SUPERVISOR) Pathologist [facility] COVID-19 RNA Negative Negative Influenza A RNA Negative Negative [facility] ([place]) Influenza B RNA Negative Negative [facility] ([place]) RSV RNA Negative Negative [facility] ([place]) Comment: Interpretive data: Testing performed by [facility]. This test is performed using the [employer] Xpert Xpress CoV-2/Flu/RSV plus assay. This is a multiplex, real- time reverse transcriptase PCR assay intended for the qualitative detection of nucleic acid from SARS-CoV-2, influenza A, influenza B, and respiratory syncytial virus. This assay has been cleared by the [place] Food and Drug administration. The performance characteristics have been verified by the [facility]. Results must be considered in the clinical context, and a negative result does not rule out infection. Interpretive Data last revised 2023 Nasopharyngeal 08/15/2024 9: 00 AM PLANNING SUPERVISOR 08/15/2024 9:06 AM PLANNING SUPERVISOR Narrative [facility] ([place]) - 08/15/2024 9:50 AM PLANNING SUPERVISOR Is the Patient experiencing symptoms consistent with COVID?->Yes Gayla Malcolm MD LAB MICROBIOLOGY - GENERA L ORDERABLES Final Result [facility] ([place]) [address] [facility] [place] [address] * eGFR (08/15/2024 9:00 AM PLANNING SUPERVISOR) [facility] eGFR >90 >=60 mL/min/1. 73 m2 [...] Testing performed by: [facility], [address] [place] [address], [place]., [address] Blood 08/15/2024 9:00 AM PLANNING SUPERVISOR 08/15/2024 10:54 AM PLANNING SUPERVISOR Gayla Malcolm MD LAB BLOOD ORDERABLES Alanna grimaldo Result [facility] ([place]) 1 [facility] Department [place] [address] * Differential, auto (08/15/2024 9:00 AM PLANNING SUPERVISOR) Neutrophil abs 4.5 1.5 - 6.5 K/cumm [...] revised on 2017. Blood 08/15/2024 9:00 AM PLANNING SUPERVISOR 08/15/2024 9:06 AM PLANNING SUPERVISOR us Gayla Malcolm MD LAB BLOOD ORDERABLES Alanna grimaldo Result [facility] ([place]) [address] [facility] Department [place] [address] * (ABNORMAL) CBC with auto differential (08/15/2024 9:00 AM PLANNING SUPERVISOR) WBC 8.1 3.8 - 9.9 K/cumm Hgb [...] [facility] ([place]) Blood 08/15/2024 9:00 AM PLANNING SUPERVISOR 08/15/2024 9:06 AM PLANNING SUPERVISOR Gayla Malcolm MD LAB BLOOD ORDERABLES Alanna l Result Performing Organization Address [facility] Co de Phone Number [facility] ([place]) [address] [facility] [place] [address] * aPTT (08/15/2024 9:00 AM PLANNING SUPERVISOR) aPTT 36 28 - 38 sec [facility] ([place]) Comment: Interpretive Data Heparin therapeutic range: 66.0 - 100.0 seconds. Range based on correlation with therapeutic heparin activity range of 0.3 - 0.7 Units/mL. Current interpretive data was last revised on 2023. Blood 08/15/2024 9:00 AM PLANNING SUPERVISOR 08/15/2024 10:24 AM PLANNING SUPERVISOR Narrative [facility] ([place]) - 08/15/2024 10:31 AM PLANNING SUPERVISOR Baseline prior to enoxaparin initiation. Gayla Malcolm MD LAB BLOOD ORDERABLES Alanna l Result Performing Organization Address City/[facility]/ZIP Co de Phone Number [facility] ([place]) [address] [facility] [place] [address] * Protime-INR (08/15/2024 9:00 AM PLANNING SUPERVISOR) PT 12.8 9.7 - 13.0 sec [facility] ([place]) INR 1.18 0.90 - 1.20 [facility] ([place]) Comment: Interpretive data Oral anticoagulant therapeutic ranges: Venous thromboembolism prophylaxis or treatment: 2.0-3.0 CARDIOLOGY Standard range: 2.0-3.0 High-intensity range: 2.5-3.5 Refer to indication-specific guidelines for appropriate target ranges for prosthetic heart valve replacement. Current interpretive data was last revised on 2019. Blood 08/15/2024 9:00 AM PLANNING SUPERVISOR 08/15/2024 10:24 AM PLANNING SUPERVISOR Narrative [facility] ([place]) - 08/15/2024 10:31 AM PLANNING SUPERVISOR Baseline prior to enoxaparin initiation. Gayla Malcolm MD LAB BLOOD ORDERABLES Alanna grimaldo Result [facility] ([place]) 1 [facility] Department [place] [address] * (ABNORMAL) Comprehensive metabolic panel (08/15/2024 9:00 AM PLANNING SUPERVISOR) Pathologist [facility] Sodium 146(H) 135 - 145 mmol/L Comment:Testing performed by : [address] [address] Potassium, pl 4.5 3.3 - 4.9 mmol/L [facility] ([place]) Comment:Testing performed by : [facility], [address] [place] [address]., [address] Chloride 108 97 - 110 mmol/L [facility] ([place]) Comment:Testing performed by : [address] [address] CO2 27 22 - 32 mmol/L [facility] ([place]) Comment:Testing performed by : [address], [address] Anion gap 11 2 - 15 mmol/L [facility] ([place]) Comment:Testing performed by : [address], [address] BUN 14 6 - 25 mg/dL [facility] ([place]) Comment:Testing performed by : [address] [address] Creatinine 0.77(L) 0.80 - 1.30 mg/dL [facility] ([place]) Comment:Testing performed by : [address], [address] Glucose 98 70 - 199 mg/dL [facility] [...] was last revised 2022. Testing performed by: [address], [address] Calcium 8.8 8.5 - 10.3 mg/dL [facility] ([place]) Comment:Testing performed by : [address], [address] Bilirubin, total 0.3 0.1 - 1.2 mg/dL [facility] ([place]) Comment:Testing performed by : [address], [address] Protein, pl 7.2 6.5 - 8.5 g/dL [facility] ([place]) Comment:Testing performed by : [address], [address] Albumin 3.8 3.5 - 5.0 g/dL [facility] ([place]) Comment:Testing performed by : [address], [address] Alk phos 71 40 - 130 Units/L [facility] ([place]) Comment:Testing performed by : [address], [address] ALT 17 7 - 55 Units/L [facility] ([place]) Comment:Testing performed by : [address] [place] [address] AST 32 10 - 50 Units/L [facility] ([place]) Comment:Testing performed by : [facility], [address] [place] [address]., [address] Blood 08/15/2024 9:00 AM PLANNING SUPERVISOR 08/15/2024 9:06 AM PLANNING SUPERVISOR Gayla Malcolm MD LAB BLOOD ORDERABLES Alanna l Result [facility] ([place]) 1 [facility] Department [place] [address] * XR Chest PA Lateral 2 Views (08/15/2024 8:49 AM PLANNING SUPERVISOR) Anatomical Region Laterality Modality Body, Chest N/A Computed Radiogr aphy 08/15/2024 9:00 AM PLANNING SUPERVISOR Narrative 08/15/2024 9:01 AM PLANNING SUPERVISOR EXAM DESCRIPTION: XR CHEST PA LATERAL 2 [...] Amari Roberts M.D. MM: MM Report ID: [id number] Reading Location: [id number] Procedure Note Amari Roberts MD - 08/15/2024 [...] Amari Roberts M.D. MM: MM Report ID: [id number] Reading Location: [place] [address] Gayla Malcolm MD IMG XR PROCEDURES Final R esult * COLONOSCOPY (07/16/2017 7:32 AM PLANNING SUPERVISOR) Anatomical Region Laterality Modality Other Narrative Procedure Note Michael Bran MD - 07/16/2017 7:32 AM CST Center Patient Name: Js Contreras Procedure Date: 07/16/2017 7:32 AM Date of : 1950 Admit Type: Outpatient Age: 67 Gender: Male Attending MD: Michael Gonzalez M.D. Room: [facility] ENDOSCOPY ROOM 2 Note Status: Finalized [...] scope was passed under direct vision.The Colonoscope [id number] was introducedthrough the anus and advanced to [...] 7:32 AM Procedure Code(s): --- Professional --- 01336, Colonoscopy, flexible; with removal of tumor(s), polyp(s), or other lesion(s) by snare technique Diagnosis Code(s): --- Professional --- Z86.010, Personal history of colonic polyps K64.8, Other hemorrhoids D12.5, Benign neoplasm of sigmoid colon K57.30, Diverticulosis of large intestine without perforation orabscess without bleeding CPT copyright 2014 [employer]. All rights reserved. The codes documented in this report are preliminary and upon vice president risk management reviewmay be revised to meet current compliance requirements. Recognized by the [employer] for promoting quality in endoscopy Michael Shaw MD ENDOSCOPY PROCEDUR ES Final Result from Last 3 Months or Most Recently Relevant to Health Maintenance Insurance [employer] MEDICARE PPO Member Subscriber Plan / Payer (Ef fective 2017-Present) Name:Js Contreras Relation to Subscriber:Self Name:Js Contreras Payer ID:[id number] (NAIC) Type:MEDICARE RISK OTHER Address: [address] MEDICARE [facility] MEDICARE GENERIC RISK OTHER [facility] CHOICE MEDICARE PPO MEDICARE [facility] AETNA MEDICARE GOLD [facility] MEDICARE ADVANTAGE Care Teams Biometric Technician Relationship Specialty Start Date End Date Unknown, Notinfile PCP - General 07/09/23
[2024-10-24 13:18] LABS: Osmolality, Urine 338 mOsm/kg (50-1200)
== END 2024-10-22 14:54 | disposition home or self-care (01) ==
LOC: ANHED 15:57 → ANHIMU 10-21 11:21
PROVIDERS: Student in an Organized Health Care Education/Training Program; Admitting Provider Family Medicine; Emergency Provider Emergency Medicine; Visit Provider General Practice
DX: I11.0 Hypertensive heart disease with heart failure (principal); I50.43 Acute on chronic combined systolic (congestive) and diastolic (congestive) heart failure; N17.9 Acute kidney failure, unspecified; I42.9 Cardiomyopathy, unspecified; I48.0 Paroxysmal atrial fibrillation; R79.89 Other specified abnormal findings of blood chemistry; I34.0 Nonrheumatic mitral (valve) insufficiency; I45.10 Unspecified right bundle-branch block; K70.30 Alcoholic cirrhosis of liver without ascites; F12.90 Cannabis use, unspecified, uncomplicated; B39.9 Histoplasmosis, unspecified; E78.5 Hyperlipidemia, unspecified; E55.9 Vitamin D deficiency, unspecified; G47.30 Sleep apnea, unspecified; L30.9 Dermatitis, unspecified; Z20.822 Contact with and (suspected) exposure to COVID-19; Z79.82 Long term (current) use of aspirin; Z79.51 Long term (current) use of inhaled steroids; Z79.899 Other long term (current) drug therapy; Z90.49 Acquired absence of other specified parts of digestive tract; Z91.148 Patient's other noncompliance with medication regimen for other reason; Z98.890 Other specified postprocedural states
CPT/HCPCS: 36415; 71046; 76775; 80053; 81001; 82550; 82570; 83605; 83735; 83880; 83930; 83935; 84145; 84156; 84300; 84484; 84540; 85025; 85027; 85610; 85730; 87637; 93005; 96374; 96376; 99285; A9270; G0378; J1938

== ENCOUNTER 2024-12-05 17:04 | Emergency (ER) | payer OTHER, MEDICARE, SELFPAY ==
--- NOTE | ~2024-12-05 | XR_ITS ---
CHEST RADIOGRAPH CLINICAL HISTORY: CHF exacerbation . COMPARISON: 10/20/2024 TECHNIQUE: Single portable view of the chest. FINDINGS The cardiomediastinal silhouette is enlarged, unchanged. Increased interstitial markings are identified bilaterally, findings suggesting moderate pulmonary va scular congestion. Hazy opacification of the bilateral hemidiaphragms, left greater than right for which bilateral pleur al effusions are suspected. IMPRESSION: Findings suggesting congestive failure, as detailed above. Reviewed, dictated and finalized at location A.
[2024-12-05 17:41] VITALS: BP 125/66; PULSE 80; RESP 20; TEMP 36.3; O2SAT 94
--- NOTE | 2024-12-05 17:43 | ECG_ITS ---
Test Date: 2024-12-05 18:52:45 Measurements Intervals [place] Rate: 74 P: -10 [place]: 147 QRS: 124 QRSD: 138 T: 86 QT: 403 QTc: 448 Interpretive Statements SINUS RHYTHM WITH ATRIAL PREMATURE COMPLEX RIGHT AXIS DEVIATION RIGHT BUNDLE BRANCH BLOCK BASELINE WANDER- III, AVR, AVL, AVF, V2 ABNORMAL ECG Compared to ECG 10/20/2024 13:55:37 No significant changes Electronically Signed On 12-05-2024 20:17:16 CDT by Sahil Guerra D.O.
--- NOTE | 2024-12-05 17:44 | ED_ITS ---
HPI - Extremity Problem General Chief complaint: Extremity Problem,Nontraumatic Stated complaint: BLE swelling Focused HPI: 74-year-old male history of hypertension, hyperlipidemia, AFib, CHF presents to the emergency department for lower extremity edema and dyspnea for the past few days. Patient states he recently ran out of his Lasix and then started experiencing bilateral lower extremity edema, dyspnea on exertion and orthopnea. He states he believes he needs to be back on his Lasix. He denies any chest pain or abdominal pain, fevers. Reports a mild productive cough. His environmental education specialist is with the [employer]. GENERAL: Well-appearing, well-nourished, and in no acute distress. HEAD: Normocephalic, atraumatic. CHEST: Clear to auscultation. ?No respiratory distress. 3+ bilateral lower extremity edema HEART: Regular rate and rhythm.? NEURO: ?Alert and oriented x3. Patient screened in triage and initial orders placed.? ?Additional care and disposition to be based upon?diagnostic testing and treatment. Related Data Home Medications ?Medication ?Instructions ?Recorded ?Confirmed ?Last Taken ?Type aspirin 81 mg chewable tablet 81 mg PO DAILY 08/23/24 10/20/24 10/20/24 History cholecalciferol (vitamin D3) 50 2,000 unit PO DAILY 08/23/24 10/20/24 10/20/24 History mcg (2,000 unit) capsule Allergies Allergy/AdvReac Type Severity Reaction Status Date / Time No Known Drug Allergies Allergy Other Verified 12/05/24 17:47 PMFSH Past Medical History Medical History Eczema Sleep apnea Hypertension Hyperlipidemia Vitamin D deficiency Substance abuse Atrial fibrillation Congestive heart failure Surgical History Surgical History History of umbilical hernia repair robotic assisted repair incarcerated umbilical hernia measuring 4.5 cm, myofascial release x2 H/O hemorrhoidectomy History of appendectomy History of carpal tunnel release Family History Family History Mother Parkinson disease Father Alcohol abuse Social History Social History Social History: Lives with grand daughter (13 year old) 1 dog Smoking status: Never smoker Second hand tobacco smoke exposure: Yes Alcohol intake: current Drinks per week: 2 Substance use: never Substance use type: marijuana and crack/cocaine Other substance usage details: once in while, last used 2 weeks ago Do You Feel Safe in your Home?: Yes Lack of Transportation: No Lack of Food: Never True Current Housing: I Have Housing Concerned About Future Housing: No Difficulty Paying Gas/Electric Bills: No Difficulty Paying for Meds: No Currently Unemployed: No Education: High School Diploma/GED Difficulty w/ Childcare or Family Care: No Spiritual care concerns: No Course Vital Signs Vital signs: Vital Signs Temperature 97.3 F L 12/05/24 17:41 Pulse Rate 80 12/05/24 17:41 Respiratory Rate 20 12/05/24 17:41 Blood Pressure 125/66 12/05/24 17:41 Pulse Oximetry 94 12/05/24 17:41 Oxygen Delivery Room Air 12/05/24 17:41 Temperature 97.3 F L 12/05/24 17:41 Pulse Rate 80 12/05/24 17:41 Respiratory Rate 20 12/05/24 17:41 Blood Pressure 125/66 12/05/24 17:41 Pulse Oximetry 94 12/05/24 17:41 Oxygen Delivery Room Air 12/05/24 17:41 MDM - Extremity (Nontraumatic) Lab Data 12/05/24 18:53 12/05/24 18:53 Labs: Lab Results 12/05/24 Range/Units 18:53 WBC 9.4 (4.5-10.0) K/mm3 RBC 4.52 L (4.6-6.20) M/mm3 Hgb 11.4 L (14.0-18.0) g/dL Hct 39.1 L (42.0-52.0) % MCV 86.5 (80-100) fl MCH 25.2 L (26-34) pg MCHC 29.2 L (32-36) g/dl RDW 17.7 H (11.5-14.5) % Plt Count 238 (150-375) k/mm3 MPV 9.7 (7.4-10.4) fl Immature Gran % (Auto) 0.2 (0-0.5) % Neut % (Auto) 59.9 (45.5-73.1) % Lymph % (Auto) 25.1 (18.3-44.2) % Irwin % (Auto) 11.2 H (2.6-8.5) % Eos % (Auto) 2.7 (0-4.4) % Baso % (Auto) 0.9 (0.2-1.2) % Lymph # (Auto) 2.36 (0.9-3.2) K/mm3 Irwin # (Auto) 1.1 H (0.1-0.6) K/mm3 Eos # (Auto) 0.3 (0-0.3) K/mm3 Baso # (Auto) 0.1 (0.0-0.1) K/mm3 Abs Immat Gran (auto) 0.02 (0.00-0.031) K/mm3 Absolute Neuts (auto) 5.6 (1.3-6.7) K/mm3 Absolute Nucleated RBC 0.000 (0.0-0.012) K/mm3 Band Neutrophils % 0 (0-6) % Nucleated RBC % 0.0 (0.0-0.2) % Platelet Estimate Adequate (Adequate) Hypochromasia 1+ Anisocytosis 2+ Schistocytes None seen PT 15.7 H (11.1-14.7) Seconds INR 1.3 APTT 28.7 (22.3-36.8) Seconds Sodium 143 (137-145) mmol/L Potassium 4.8 (3.4-5.0) mmol/L Chloride 104 (98-107) mmol/L Carbon Dioxide 31 H (22-30) mmol/L Anion Gap 8 (4-12) mmol/L BUN 18 D (9-20) mg/dL Creatinine 0.84 (0.7-1.3) mg/dL Estim Creat Clear Calc 69 ml/min Estimated GFR > 60 (59 - ) Glucose 120 H (65-110) mg/dL Calcium 8.7 (8.4-10.2) mg/dL Magnesium 2.4 H (1.6-2.3) mg/dL Total Bilirubin 0.4 (0.2-1.3) mg/dL AST 29 (17-59) U/L ALT 16 (6-50) U/L Alkaline Phosphatase 81 (38-126) U/L NT-Pro-B Natriuret Pep 6220 H (19.9-100) pg/mL Total Protein 7.2 (6.3-8.2) g/dL Albumin 3.6 (3.5-5.1) g/dL Discharge Plan Discharge Clinical Impression: Bilateral edema of lower extremity Patient Disposition: Elopement After Seen by Prov Patient Language: Israeli Prescriptions: No Action nitroglycerin [Nitrostat] 0.4 mg Tablet, Sublingual 0.4 mg sublingual Q5MIN PRN (Reason: Chest Pain) Qty: 30 0RF Entresto 24-26 mg Tablet 1 tab PO Q12HR Qty: 30 0RF spironolactone 25 mg tablet 12.5 mg PO DAILY Qty: 30 0RF empagliflozin 10 mg tablet 10 mg PO DAILY Qty: 30 0RF aspirin 81 mg tablet,chewable 81 mg PO DAILY cholecalciferol (vitamin D3) 50 mcg (2,000 unit) capsule 2,000 unit PO DAILY furosemide 40 mg Tablet 40 mg PO DAILY Qty: 30 1RF metoprolol succinate [Toprol XL] 100 mg Tablet Extended Release 24 Hr 100 mg PO QAM Qty: 60 0RF potassium chloride 20 mEq Packet 20 meq PO DAILY Qty: 30 0RF rosuvastatin [Crestor] 20 mg tablet 10 mg PO HS Qty: 30 0RF albuterol sulfate [Ventolin HFA] 90 mcg/actuation HFA aerosol inhaler 1 inh inhalation QID PRN (Reason: shortness of breath or wheezing) Qty: 8.5 2RF Follow-up/Referrals: [facility] [Primary Care Provider] -
[2024-12-05 19:06] LABS: Basophils Absolute Auto 0.1 K/mm3 (0.0-0.1); Basophils Percent Auto 0.9 % (0.2-1.2); Eosinophils Absolute Auto 0.3 K/mm3 (0-0.3); Eosinophils Percent Auto 2.7 % (0-4.4); Hematocrit 39.1 % (42.0-52.0); Hemoglobin 11.4 g/dL (14.0-18.0); Immature Granulocyte Absolute 0.02 K/mm3 (0.00-0.031); Immature Granulocyte Percent A 0.2 % (0-0.5); Lymphocytes Absolute Auto 2.36 K/mm3 (0.9-3.2); Lymphocytes Percent Auto 25.1 % (18.3-44.2); Mean Corpuscular HGB Conc 29.2 g/dl (32-36); Mean Corpuscular Hemoglobin 25.2 pg (26-34); Mean Corpuscular Volume 86.5 fl (80-100); Mean Platelet Volume 9.7 fl (7.4-10.4); Monocytes Absolute Auto 1.1 K/mm3 (0.1-0.6); Monocytes Percent Auto 11.2 % (2.6-8.5); Neutrophils Absolute Auto 5.6 K/mm3 (1.3-6.7); Neutrophils Percent Auto 59.9 % (45.5-73.1); Platelet Count Result 238 k/mm3 (150-375); Red Blood Count 4.52 M/mm3 (4.6-6.20); Red Cell Distribution Width 17.7 % (11.5-14.5); White Blood Count 9.4 K/mm3 (4.5-10.0)
[2024-12-05 19:16] LABS: Alanine Aminotransferase 16 U/L (6-50); Albumin Level 3.6 g/dL (3.5-5.1); Alkaline Phosphatase 81 U/L (38-126); Anion Gap 8 mmol/L (4-12); Aspartate Amino Transferase 29 U/L (17-59); Bilirubin,Total 0.4 mg/dL (0.2-1.3); Blood Urea Nitrogen 18 mg/dL (9-20); Calcium 8.7 mg/dL (8.4-10.2); Carbon Dioxide 31 mmol/L (22-30); Chloride 104 mmol/L (98-107); Estimated CRCL calculation 69 ml/min; Estimated Glomerular Filt Rate > 60; Glucose 120 mg/dL (65-110); Magnesium 2.4 mg/dL (1.6-2.3); Potassium 4.8 mmol/L (3.4-5.0); Sodium 143 mmol/L (137-145); Total Protein 7.2 g/dL (6.3-8.2)
[2024-12-05 19:23] LABS: NT Pro B Type Natriuretic Pept 6220 pg/mL (19.9-100)
[2024-12-05 19:26] LABS: INR 1.3; Prothrombin Time 15.7 Seconds (11.1-14.7)
[2024-12-05 19:27] LABS: Partial Thromboplastin Time 28.7 Seconds (22.3-36.8)
[2024-12-05 19:43] LABS: Platelet Estimate Adequate (Adequate)
[2024-12-05 19:44] LABS: Anisocytosis 2+; Hypochromasia 1+; Schistocytes None Seen
[2024-12-05 19:45] LABS: Band Neutrophils Percent 0 % (0-6)
--- NOTE | 2024-12-05 20:39 | PC.NURSE ---
Patient approached triage desk stating that he was leaving due to wait times. Pt advised to be seen at nearest ED for warranting symptoms. Pt verbalized understanding and ambulated to ED exit with steady gait an no signs for concern at this time.
== END 2024-12-05 22:19 | disposition left against medical advice (07) ==
LOC: ANHED 22:18
PROVIDERS: Emergency Provider Physician Assistant
DX: R60.0 Localized edema (principal); I11.0 Hypertensive heart disease with heart failure; I50.9 Heart failure, unspecified; I48.91 Unspecified atrial fibrillation
CPT/HCPCS: 36415; 71045; 80053; 83735; 83880; 85025; 85610; 85730; 93005; 99283

== ENCOUNTER 2024-12-14 19:09 | Inpatient (IN) | payer MEDICARE, OTHER, SELFPAY ==
[2024-12-14] VITALS (8 sets, daily range): BP systolic 106–138; BP diastolic 67–99; PULSE 95–107; RESP 16–27; TEMP 36.4–36.6; O2SAT 83–100; BMI 29.0
--- NOTE | ~2024-12-14 | US_ITS ---
EXAMINATION: US guide abscess drainage DATE: 12/19/2024 12:05 INDICATION: Acute cholecystitis TECHNIQUE: The procedure including the risks and benefits was discussed with the patient and the tasha ent's son. Risks discussed included bleeding, infection and allergic reaction. Oral and written conse nt were obtained. The skin slightly to the left and cephalad to the umbilicus overlying the anterior abdominal wall fluid collection was draped in usual sterile fashion. Anesthetic was administered wit h 1% lidocaine subcutaneously. An 8.5 Fr catheter was inserted into the fluid collection by trocar t echnique under continuous sonographic observation. The metal stiffener and trocar needle were removed , and the pigtail tip was locked. 8 mm of clear yellowish-orange fluid was aspirated and sent to the lab for Gram stain and cultures. The catheter was stitched to the skin with suture. Antibiotic ointme nt and a sterile dressing were applied. There were no immediate complications. The catheter was attac hed to suction drainage and was draining a small amount of additional fluid at the conclusion of the procedure. FINDINGS: There is a 6.7 x 1.7 x 6.7 cm complex mixed hypoechoic and anechoic fluid collection in the subcutane ous tissues deep to the umbilicus and superficial to an echogenic likely ventral hernia mesh repair. Subsequent images demonstrate the catheter within the fluid. IMPRESSION: 1. Successful ultrasound-guided percutaneous abscess drain placement into a 6.7 x 1.7 x 6.7 cm comple x subcutaneous fluid collection situated between the umbilicus and the ventral hernia mesh repair. So nographic appearance of the fluid collection and the correlation and clarity of the aspirated fluid w ould favor evolving hematoma over abscess but would correlate with results from the Gram stain and cu ltures. The catheter will be managed by Dr. Villasenor. Reviewed, dictated and finalized at location A. IMPRESSION: 1. Successful ultrasound-guided percutaneous abscess drain placement into a 6.7 x 1.7 x 6.7 cm complex subcutaneous fluid collection situated between the umbi licus and the ventral hernia mesh repair. Sonographic appearance of the fluid c ollection and the correlation and clarity of the aspirated fluid would favor ev olving hematoma over abscess but would correlate with results from the Gram sta in and cultures. The catheter will be managed by Dr. Villasenor.
--- NOTE | ~2024-12-14 | XR_ITS ---
CHEST RADIOGRAPH CLINICAL HISTORY: ET PLACEMENT . COMPARISON: 12/15/2024 TECHNIQUE: Single portable view of the chest. FINDINGS Endotracheal tube is identified with its tip projecting approximately 3cm above the base of the janeen a. The remainder of the cardiomediastinal silhouette is partially obscured and otherwise unremarkable. Large left-sided pleural effusion. Small right-sided pleural effusion. Increased interstitial markings are identified bilaterally, findings suggesting mild pulmonary vascul ar congestion. The remainder of the lungs are clear. IMPRESSION: Bilateral pleural effusions, large on the left and small on the right with mild pulmonary vascular co ngestion. Endotracheal tube in good position. Reviewed, dictated and finalized at location A. IMPRESSION: Bilateral pleural effusions, large on the left and small on the right with mild pulmonary vascular congestion. Endotracheal tube in good position.
--- NOTE | ~2024-12-14 | XR_ITS ---
CHEST RADIOGRAPH CLINICAL HISTORY: Respiratory arrest . COMPARISON: 12/17/2024 at 5:00 AM (approximately 24 hours earlier) TECHNIQUE: Single portable view of the chest. FINDINGS Left subclavian central venous catheter tip projecting over the superior vena cava. Endotracheal tube is identified with its tip projecting approximately 5cm above the base of the janeen a. Orogastric tube identified with its tip extending below the left hemidiaphragm, presumably within the stomach. The remainder of the cardiomediastinal silhouette is otherwise unremarkable. Persistent although decreased bilateral pleural effusions, when compared with previous study. Increased interstitial markings are identified bilaterally, findings suggesting mild pulmonary vascul ar congestion. The lungs are otherwise clear. IMPRESSION: Mild pulmonary vascular congestion with small on the right and moderate on the left, pleural effusion s, decreased from previous examination. Supportive lines and tubes in good position. Reviewed, dictated and finalized at location A. IMPRESSION: Mild pulmonary vascular congestion with small on the right and moderate on the left, pleural effusions, decreased from previous examination. Supportive lines and tubes in good position.
--- NOTE | ~2024-12-14 | XR_ITS ---
CHEST RADIOGRAPH CLINICAL HISTORY: Respiratory arrest . COMPARISON: 12/15/2024 TECHNIQUE: Single portable view of the chest. FINDINGS Endotracheal tube is identified with its tip projecting approximately 2.5cm above the base of the car brandy. Orogastric tube is now identified with its tip extending below the left hemidiaphragm, presumably wit hin the stomach. Left subclavian central venous catheter identified with its tip projecting over the superior vena cav a. The remainder of the cardiomediastinal silhouette is obscured. Large left and increasing right-sided pleural effusion. Increased interstitial markings are identified bilaterally, findings suggesting mild pulmonary vascul ar congestion. The bilateral lung apices are clear. IMPRESSION: Large left and increasing right-sided pleural effusion, with mild pulmonary vascular congestion. The bilateral lung apices only are clear. Supportive lines and tubes in good position, as detailed above. Reviewed, dictated and finalized at location A. IMPRESSION: Large left and increasing right-sided pleural effusion, with mild pulmonary vas cular congestion. The bilateral lung apices only are clear. Supportive lines and tubes in good position, as detailed above.
--- NOTE | ~2024-12-14 | XR_ITS ---
Portable chest x-ray Comparison: 12/20/2024 Clinical History: Respiratory failure Findings: Endotracheal tube, NG tube, and left subclavian place. Probable minimal left pleural effus ion with moderate pulmonary edema pattern. Cardiomediastinal silhouette is stable. Bones and soft ti ssues are unremarkable. Impression: Minimal left pleural effusion with moderate pulmonary edema pattern. Support tubes, as above. Reviewed, dictated and finalized at location . Impression: Minimal left pleural effusion with moderate pulmonary edema pattern. Support tubes, as above.
--- NOTE | ~2024-12-14 | CT_ITS ---
EXAMINATION: CTA chest PE protocol DATE: 12/16/2024 13:43 CDT INDICATION: Shortness of breath TECHNIQUE: Computed tomographic angiography (CTA) of the chest was performed with 100 mL Omnipaque-35 0 intravenous contrast. The dose-length product was 305.06 mGy-cm. Maximum intensity projection 3D-re constructions of the aorta and other arteries were constructed by the technologist on a separate work station. COMPARISON: 08/22/2024 FINDINGS/OBSERVATIONS: PULMONARY ARTERIES: No filling defect is identified within the main or proximal pulmonary artery. The main pulmonary artery is not enlarged. THORACIC AORTA: No aneurysmal dilatation or dissection is present. The great vessels are intact LUNGS: Large bilateral pleural effusions with adjacent compressive atelectasis and paraseptal thicken ing. MEDIASTINUM: No morphologically suspicious or pathologically enlarged lymph nodes are identified with in the mediastinum or bilateral axilla. Calcified lymph nodes within the mediastinum suggesting prior granulomatous disease. BONES OF THE CHEST: No acute fracture. No significant degenerative disease. No lytic or blastic lesions. HEART: The heart is enlarged, unchanged. Small pericardial effusion. Abdominal findings Moderate abdominal ascites is noted, with reflux of intravenous contrast into the hepatic veins sugge sting right heart failure. IMPRESSION: No pulmonary embolus. No thoracic aortic dissection. Findings suggesting congestive failure, with large bilateral pleural effusions and intra-abdominal as cites. Reviewed, dictated and finalized at location A. IMPRESSION: No pulmonary embolus. No thoracic aortic dissection. Findings suggesting congestive failure, with large bilateral pleural effusions and intra-abdominal ascites.
--- NOTE | ~2024-12-14 | CT_ITS ---
EXAMINATION: CTA chest abdomen pelvis DATE: 12/17/2024 07:43 CDT INDICATION: Post cardiac arrest TECHNIQUE: Computed tomographic angiography (CTA) of the chest was performed, along with multiple con tiguous axial images of the abdomen and pelvis with 100 mL Omnipaque-350 intravenous contrast. The do se-length product was 1402.64 mGy-cm. Maximum intensity projection 3D-reconstructions of the aorta an d other arteries were constructed by the technologist on a separate workstation. FINDINGS/OBSERVATIONS: PULMONARY ARTERIES: No filling defect is identified within the main or proximal pulmonary artery. The main pulmonary artery is not enlarged. THORACIC AORTA: No aneurysmal dilatation or dissection is present. The great vessels are intact LUNGS: Increasing bilateral pleural effusions, left greater than right with adjacent compressive atel ectasis. No consolidation is appreciated at this time. MEDIASTINUM: No morphologically suspicious or pathologically enlarged lymph nodes are identified with in the mediastinum or bilateral axilla. BONES OF THE CHEST: No acute fracture. No significant degenerative disease. No lytic or blastic lesions. HEART: The heart is enlarged, with a small pericardial effusion. Significant enlargement of the right atrium, with persistent reflux of intravenous contrast into the hepatic veins, consistent with right heart failure. LIVER: The liver demonstrates homogeneously decreased attenuation and enhancement consistent with fatty infi ltration and is not enlarged. GALLBLADDER AND BILIARY SYSTEM: The gallbladder is only minimally distended, and otherwise unremarkable. PANCREAS: The pancreas enhances homogeneously without ductal dilatation. SPLEEN: Punctate calcifications identified within the splenic parenchyma, suggesting prior granulomat ous disease. The remainder of the spleen otherwise enhances homogeneously and is not enlarged. KIDNEYS: Indeterminate focus of decreased attenuation within the interpolar region of the right kidne y, which demonstrated a cyst on prior ultrasound examination of 10/21/2024. The remainder of the bilateral kidneys otherwise enhance symmetrically without hydronephrosis or misael l calculi. ADRENAL GLANDS: Unremarkable. GASTROINTESTINAL TRACT: Fecal stasis within the colon APPENDIX: The appendix is not definitively visualized. However, no pericecal inflammatory change is identified suggest the presence of acute appendicitis. VASCULATURE: Unremarkable. No aneurysmal dilatation or significant stenosis. LYMPH NODES: No pathologically enlarged or morphologically suspicious lymph nodes within the retroperitoneum or at the root of the mesentery. PELVIC STRUCTURES: The bladder is decompressed with a De Anda catheter. The prostate gland is not enlarged. Intra-abdominal ascites, unchanged. BODY WALL AND MUSCULOSKELETAL: Along the anterior abdominal wall, focused at the level of the umbilicus is a 7.2 x 5.3 x 12 cm focus of rim enhancing fluid attenuation which measures denser than simple fluid, possibly representing ab scess formation. This also may represent a perioperative seroma, not an uncommon finding following co mplex (incarcerated) umbilical hernia repair, as this patient underwent in August 2024. Age-appropriate degenerative disease within the lower thoracic and lumbosacral spine. IMPRESSION: No pulmonary embolus. No aortic dissection. Increasing bilateral pleural effusions with adjacent compressive atelectasis. Rim-enhancing fluid collection along the anterior abdominal wall measuring denser than simple fluid f or which a perioperative seroma versus abscess (less likely) is suspected. Focused ultrasound may be performed for further evaluation. Reviewed, dictated and finalized at location A. IMPRESSION: No pulmonary embolus. No aortic dissection. Increasing bilateral pleural effusions with adjacent compressive atelectasis. Rim-enhancing fluid collection along the anterior abdominal wall measuring dens er than simple fluid for which a perioperative seroma versus abscess (less like ly) is suspected. Focused ultrasound may be performed for further evaluation.
--- NOTE | ~2024-12-14 | XR_ITS ---
Portable chest x-ray Comparison: 12/19/2024 Clinical History: Respiratory arrest Findings: Endotracheal tube, NG tube, left subclavian line are in place. Small left pleural effusion present with bibasilar airspace disease. Cardiomediastinal silhouette is stable. Bones and soft tis sues are unremarkable. Impression: Mild pulmonary edema with small left pleural effusion and left basilar atelectatic change. Support tubes, as above. Reviewed, dictated and finalized at location . Impression: Mild pulmonary edema with small left pleural effusion and left basilar atelecta tic change. Support tubes, as above.
--- NOTE | ~2024-12-14 | US_ITS ---
EXAMINATION: US venous doppler [facility] DATE: 12/18/2024 09:18 INDICATION: Swelling TECHNIQUE: Grayscale ultrasound images without and with compression and Doppler ultrasound images of the bilateral lower extremity veins were obtained. COMPARISON: 10/17/2024 FINDINGS: The visualized portions of right common femoral vein, profunda (deep) femoral vein, femoral vein, pop liteal vein, peroneal veins, posterior tibial veins, and greater saphenous vein outflow are patent. The visualized portions of left common femoral vein, profunda femoral vein, femoral vein, popliteal v ein, peroneal veins, posterior tibial veins, and greater saphenous vein outflow are patent. IMPRESSION: 1. No deep venous thrombosis. Reviewed, dictated and finalized at location A.
--- NOTE | ~2024-12-14 | CT_ITS ---
History: Postcardiac arrest PROCEDURE: CT head without contrast. COMPARISON: 08/26/2024 TECHNIQUE: Axial imaging of the head performed from the skull base to the vertex without IV contrast. Sagittal a nd coronal reformations obtained. DLP: 681 mGy-cm FINDINGS: The ventricles are enlarged. The dilatation of the ventricles is proportional to the degree of sulcal prominence, not uncommon in the senescent brain. Decreased attenuation within the left thalamus, consistent with prior lacunar infarct. Decreased attenuation is identified within the periventricular white matter, likely secondary to micr ovascular ischemic disease, in a patient of this age. There is no mass, mass effect or midline shift. There is no abnormal extra-axial fluid collection or intracranial hemorrhage. Air-fluid level within the right maxillary sinus. Remaining paranasal sinuses are unremarkable. The mastoid air cells are well aerated. No acute displaced fractures within the overlying cranium. Impression: No acute intracranial hemorrhage or suspicious mass effect. Reviewed, dictated and finalized at location A. Impression: No acute intracranial hemorrhage or suspicious mass effect.
--- NOTE | ~2024-12-14 | XR_ITS ---
XR chest 1V portable Ordering provider: Padmini Tee APRN History: 74 years Male with . shortness of breath . Comparison: December 14, 2024 FINDINGS: MEDIASTINUM: The cardiac silhouette is not enlarged. LUNGS: No pneumothorax. Bilateral basal opacification suggestive of atelectasis versus pneumonia with pleural effusion more on the left side. Underlying pulmonary edema cannot be excluded. OTHER: No free air under the diaphragm. IMPRESSION: Bilateral basal pneumonia versus atelectasis with pleural effusion. Underlying pulmonary edema is not excluded Reviewed, dictated and finalized at location A.
--- NOTE | ~2024-12-14 | US_ITS ---
EXAMINATION: US thoracentesis DATE: 12/19/2024 12:02 INDICATION: Left pleural effusion TECHNIQUE: The procedure and its risks and benefits were discussed with the patient. Potential risks discussed included bleeding, infection, and pneumothorax. The patient understood the risks and agreed to proceed. The skin was prepped and draped in sterile fashion. 1% lidocaine was used for local anes thesia. Under ultrasound guidance, a 5 Fr catheter with trochar was advanced into the left pleural ef fusion. Fluid was aspirated. The catheter was removed, and a dressing was applied. There were no imme diate complications. FINDINGS: Ultrasound images demonstrate a left pleural effusion and the catheter within the fluid. IMPRESSION: 1. Successful ultrasound-guided thoracentesis yielding 1000 mL of yellow fluid. Reviewed, dictated and finalized at location A. IMPRESSION: 1. Successful ultrasound-guided thoracentesis yielding 1000 mL of yellow fluid .
--- NOTE | ~2024-12-14 | XR_ITS ---
Portable chest x-ray Comparison: 12/19/2024 at 5:27 AM Clinical History: Postthoracentesis Findings: Small residual left pleural effusion probably present, decreased. There is mild bibasilar pulmonary edema. No pneumothorax. Stable endotracheal tube, NG tube, and left subclavian line. Cardi omediastinal silhouette is stable. Bones and soft tissues are unremarkable. Impression: Decreased left pleural effusion following thoracentesis. Mild bibasilar pulmonary edema. No pneumothorax. Stable support tubes. Reviewed, dictated and finalized at location M. Impression: Decreased left pleural effusion following thoracentesis. Mild bibasilar pulmonary edema. No pneumothorax. Stable support tubes.
--- NOTE | ~2024-12-14 | XR_ITS ---
Portable chest x-ray Comparison: 12/18/2024 Clinical History: Respiratory arrest Findings: Endotracheal tube, NG tube, and left-sided central venous line are in place. Small to mode rate left pleural effusion present. There is hazy bibasilar airspace disease. Probable minimal right pleural effusion. Cardiomediastinal silhouette is stable. Bones and soft tissues are unremarkable. Impression: Bnofw-ku-akuzdvmo left pleural effusion and minimal right pleural effusion. Mild to moderate pulmonary edema pattern with probable left basilar atelectasis. Support tubes, as above. Reviewed, dictated and finalized at location . Impression: [id number] left pleural effusion and minimal right pleural effusion. Mild to moderate pulmonary edema pattern with probable left basilar atelectasis . Support tubes, as above.
--- NOTE | ~2024-12-14 | XR_ITS ---
CHEST RADIOGRAPH CLINICAL HISTORY: CENTRAL LINE PLACEMENT. . COMPARISON: 12/15/2024 TECHNIQUE: Single portable view of the chest. FINDINGS Endotracheal tube is identified with its tip projecting approximately 3cm above the base of the janeen a. Superior vena cava. The remainder of the cardiomediastinal silhouette is obscured, unchanged. Small right and large left-sided pleural effusion. Increased interstitial markings are identified bilaterally, findings suggesting mild pulmonary vascul ar congestion. The remainder of the lungs are clear. IMPRESSION: Large left and small right-sided pleural effusion with mild pulmonary vascular congestion Supportive lines and tubes in good position and ready for immediate use. Reviewed, dictated and finalized at location A.
--- NOTE | ~2024-12-14 | XR_ITS ---
Exam: Abdomen 1V HISTORY: OG TECHNIQUE: Supine images of the lower chest and upper abdomen FINDINGS: Orogastric tube extends into the left upper quadrant, presumably within the stomach. IMPRESSION: Orogastric tube in good position and ready for immediate use. Remainder of examination is unchanged Reviewed, dictated and finalized at location A.
--- NOTE | ~2024-12-14 | XR_ITS ---
XR chest 1V portable Ordering provider: Tae Ingram MD History: 74 years Male with . CHF . Comparison: December 05, 2024 FINDINGS: MEDIASTINUM: The cardiac silhouette is not enlarged. Congestive ezequiel. LUNGS: No pneumothorax. Opacification the left lung base suggestive of atelectasis versus pneumonia w ith pleural effusion. Bilateral interstitial thickening suggestive of pulmonary edema versus pneumoni tis. Minimal atelectasis versus pneumonia in the right lung base medially. OTHER: No free air under the diaphragm. IMPRESSION: Left basilar atelectasis versus pneumonia with pleural effusion. Congestive ezequiel with interstitial thickening. Pulmonary edema. Clinical correlation advised. Minimal atelectasis versus pneumonia in the right lung base medially. Reviewed, dictated and finalized at location A. IMPRESSION: Left basilar atelectasis versus pneumonia with pleural effusion. Congestive ezequiel with interstitial thickening. Pulmonary edema. Clinical correla tion advised. Minimal atelectasis versus pneumonia in the right lung base medially.
--- OUTSIDE RECORDS SUMMARY | 2024-12-14 19:11 | XMS_ITS | Referral Summary ---
Author Organization [facility] Address [address] [place] [address] Care Team Providers Care Channel Cementer Outsole Machine Name Role Phone Unknown, Notinfile Primary Care Provider Unavail able Encounters Date Type Department Care Team Description 10/27/2024 Orders Only [facility] Cardiology [address] [place] [address] Amaya Mirza NP from Last 3 Months Allergies No known [...] needed Assessment & Plan (07/23/2018 12:58 PM INTEGRATED LOGISTICS PROGRAMS DIRECTOR): Reports compliance with wound care/splinting/hand therapy [...] on file Legal Sex Male 1:47 AM INTEGRATED LOGISTICS PROGRAMS DIRECTOR Gender Identity Not on file Sexual [...] 5:30 PM CDT Height 167.6 cm (5' 6) 08/22/2024 5:30 PM CDT Body Mass Index 27.44 08/22/2024 5:30 PM CDT Plan of Treatment Not on file Medical Devices Implanted Type Area Director Of Land Acquisition Device Identifier Shelf Expiration Date Model / Serial / Lot [employer] 8600-5x05 Graftjacket [id number] Regenerative Nonmesh Standard Graft - [id number] Implanted:Qty: 1 on 07/06/2018 by Kirby Rm III, MD at [facility] Left: Wrist Cloopen 01/13/2020 8600-5X05 / / [id number] Procedures Procedure Name Priority Date/Time Associated Diagnosis Comments CARDIOLOGY DOCUMENT SCAN Routine 10/22/2024 9:09 AM CDT CARDIOLOGY DOCUMENT SCAN Routine 10/21/2024 8:50 AM CDT COLONOSCOPY 07/16/2017 7:32 AM INTEGRATED LOGISTICS PROGRAMS DIRECTOR from Last 3 Months or Most Recently Relevant to Health Maintenance Results * Cardiology Document Scan (10/22/2024 9:09 AM CDT) Anatomical Region Laterality Modality Other us Kellie Colon MD [facility] CARDIAC SERVICES PROCEDU RES Final Result * Cardiology Document Scan (10/21/2024 8:50 AM CDT) Anatomical Region Laterality Modality Other us Amaya Mirza NP CV CARDIAC SERVICES PROCEDUR ES Final Result * COLONOSCOPY (07/16/2017 7:32 AM INTEGRATED LOGISTICS PROGRAMS DIRECTOR) Anatomical Region Laterality Modality Other Narrative Procedure Note Michael Bran MD - 07/16/2017 7:32 AM CST [facility] Patient Name: Js Contreras Procedure Date: 07/16/2017 7:32 AM Date of : 1950 Admit Type: Outpatient Age: 67 Gender: Male Attending MD: Michael Gonzalez M.D. 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 All rights reserved. The codes documented in this report are preliminary and upon car carder reviewmay be revised to meet current compliance requirements. Recognized by the [employer] for promoting quality in endoscopy Michael Shaw MD ENDOSCOPY PROCEDUR ES Final Result from Last 3 Months or Most Recently Relevant to Health Maintenance Insurance [facility] CHOICE MEDICARE O MEDICARE [facility] AETNA MEDICARE GOLD [facility] UHC MEDICARE [facility] Address: [address] [address] [place] [address] Care Teams Channel Cementer Outsole Machine Relationship Specialty Start Date End Date Unknown, Notinfile PCP - General 07/09/23
--- OUTSIDE RECORDS SUMMARY | 2024-12-14 19:11 | XMS_ITS | Clinical Summary ---
Author Organization [facility] Address [address] [place] [address] Care Team Providers Care Literary Writer Name Role Phone Unknown, Notinfile Primary Care [...] needed Assessment & Plan (07/23/2018 12:58 PM MANAGEMENT MANAGER): Reports compliance with wound care/splinting/hand therapy [...] Department Care Team Description 10/27/2024 Orders Only [facility] Medical [facility] Cardiology [address] [place] [address] Amaya Mirza NP from Last 3 Months Surgical History Surgery [...] on file Legal Sex Male 1:47 AM MANAGEMENT MANAGER Gender Identity Not on file Sexual [...] history exists Medical Devices Implanted Type Area Ball Racker Device Identifier Shelf Expiration Date Model / Serial / Lot [employer] 8600-5x05 Graftjacket [id number] Regenerative Nonmesh Standard Graft - [id number] Implanted:Qty: 1 on 07/06/2018 by Kirby Rm III, MD at [facility] Left: Wrist [employer] 01/13/2020 8600-5X05 / / [id number] Procedures Procedure Name Priority Date/Time Associated Diagnosis Comments CARDIOLOGY DOCUMENT SCAN Routine 10/22/2024 9:09 AM CDT CARDIOLOGY DOCUMENT SCAN Routine 10/21/2024 8:50 AM CDT COLONOSCOPY 07/16/2017 7:32 AM MANAGEMENT MANAGER from Last 3 Months or Most [...] Final Result * COLONOSCOPY (07/16/2017 7:32 AM MANAGEMENT MANAGER) Anatomical Region Laterality Modality Other Narrative Procedure Note Michael Bran MD - 07/16/2017 7:32 AM CST [facility] Patient Name: Js Contreras Procedure Date: 07/16/2017 7:32 AM Date of : 1950 Admit Type: Outpatient Age: 67 Gender: Male Attending MD: Michael Gonzalez M.D. Room: [facility] ENDOSCOPY ROOM 2 Note Status: [...] scope was passed under direct vision.The Colonoscope [id number] was introducedthrough the anus and advanced to [...] 7:32 AM Procedure Code(s): --- Professional --- 45856, Colonoscopy, flexible; with removal of tumor(s), polyp(s), or other lesion(s) by snare technique Diagnosis Code(s): --- Professional --- Z86.010, Personal history of colonic polyps K64.8, Other hemorrhoids D12.5, Benign neoplasm of sigmoid colon K57.30, Diverticulosis of large intestine without perforation orabscess without bleeding CPT copyright 2014 [employer]. All rights reserved. The codes documented in this report are preliminary and upon game advisor reviewmay be revised to meet current compliance requirements. Recognized by the [employer] for promoting quality in endoscopy Michael Shaw MD ENDOSCOPY PROCEDUR ES Final Result from Last 3 Months or Most Recently Relevant to Health Maintenance Insurance [employer] CHOICE MEDICARE PPO MEDICARE [facility] AETNA MEDICARE GOLD [facility] UHC MEDICARE ADVANTAGE Care Teams Literary Writer Relationship Specialty Start Date End Date Unknown, Notinfile PCP - General 07/09/23
--- OUTSIDE RECORDS SUMMARY | 2024-12-14 19:11 | XMS_ITS | Continuity of Care Document ---
Author Organization [facility] Address [address] [place] [address] [address] [place] [address] Phone Care Team Providers Care Physiotherapy Assistant Name Role Phone Screen, Clinician Unavailable Unavailable [...] Diagnoses Date Provider Providers Copied on Encounter [facility], [place], [place], [id number], [place] tel:[phone] Moose No Information Jan-0 9 Screen Clinician. . Referring Provider: Physician Calin. [facility], [place], [place], [id number], [place] tel:[phone] [place] No Information 9 Screen Clinician. . Referring Provider: Physician Screen. [facility], [place], [place], [id number], [place] tel:[phone] Moose Pain in left wristStiffness of left wrist, not elsewhere classifiedEffusion, left wristWeaknessPrimar y osteoarthritis, unspecified wrist Sep-0 9 Stern Katherin. [address] [place] [address], [address], [place], [place], [facility], . tel:[phone] Referring Provider: Karen Lazo [address] , [place], [address]. tel:[phone] [facility], [place], [place], [id number], [place] tel:[phone] Moose Pain in left wristStiffness of left wrist, not elsewhere classifiedEffusion, left wristWeaknessPrimar y osteoarthritis, unspecified wrist Sep-0 9 Stern Katherin. [address] [place] [address], [address], [place], [place], [facility], [place]. tel:[phone] Referring Provider: Kirby Rm [address] , [place], [address]. tel:[phone] [facility], [place], [place], [id number], [place] tel:[phone] [place] Pain in left wristStiffness of left wrist, not elsewhere classifiedEffusion, left wristWeaknessPrimar y osteoarthritis, unspecified wrist Aug- 9 Stern Katherin. [address] [place] [address], [address], [place], [address], [place]. tel:[phone] Referring Provider: Kirby Rm, [address], [place], [address]. tel:[phone] [facility], [address], [place], [place], [address], [place] tel:[phone] [place] Pain in left wristStiffness of left wrist, not elsewhere classifiedEffusion, left wristWeaknessPrimar y osteoarthritis, unspecified wrist Mar-2 7-[address] [facility], [address], [place], [address], [place]. tel:[phone] Referring Provider: Kirby Rm, [address] , [place], [address]. tel:[phone] [facility], [address], [place], [place], [address], [place] tel:[phone] [place] Pain in left wristStiffness of left wrist, not elsewhere classifiedEffusion, left wristWeaknessPrimar y osteoarthritis, unspecified wrist Mar-1 9-201 9 Stern Katherin. [address] [place] [address], [address], [place], [address], [place]. tel:[phone] Referring Provider: Kirby Rm, [address], [place], [address]. tel:[phone] [facility], [place], [place], [address], [place] tel:[phone] [place] Pain in left wristStiffness of left wrist, not elsewhere classifiedEffusion, left wristWeaknessPrimar y osteoarthritis, unspecified wrist Mar-1 8-[address] [facility], [address], [place], [address], [place]. tel:[phone] Referring Provider: Kirby Rm, [address], [place], [address]. tel:[phone] [facility], [place], [place], [id number], [place] tel:[phone] [place] Pain in left wristStiffness of left wrist, not elsewhere classifiedEffusion, left wristWeaknessPrimar y osteoarthritis, unspecified wrist Mar-1 5-201 9 Stern Katherin. [address] [place] [address], [address], [place], [address], [place]. tel:[phone] Referring Provider: Kirby Rm, [address], [place], [address]. tel:[phone] [facility], [address], [place], [place], [id number], [place] tel:[phone] [place] Pain in left wristStiffness of left wrist, not elsewhere classifiedEffusion, left wristWeaknessPrimar y osteoarthritis, unspecified wrist Mar-1 3-201 9 Stern Katherin. [address] [place] [address], [address], [place], [address], [place]. tel:[phone] Referring Provider: Kirby Rm, [address], [place], [address]. tel:[phone] [facility], [address], [place], [place], [id number], [place] tel:[phone] [place] Pain in left wristStiffness of left wrist, not elsewhere classifiedEffusion, left wristWeaknessPrimar y osteoarthritis, unspecified wrist Mar-1 1-201 9 Stern Katherin. [address] [place] [address], [address], [place], [address], [place]. tel:[phone] Referring Provider: Kirby Rm, [address], [place], [address]. tel:[phone] [facility], [place], [place], [id number], [place] tel:[phone] [place] Pain in left wristStiffness of left wrist, not elsewhere classifiedEffusion, left wristWeaknessPrimar y osteoarthritis, unspecified wrist Mar-0 8-201 9 Stern Katherin. [address] [place] [address], [address], [place], [address], [place]. tel:[phone] Referring Provider: Kirby Rm, [address] , [place], [address]. tel:[phone] [facility] [address], [place], [place], [id number], [place] tel:[phone] [place] Pain in left wristStiffness of left wrist, not elsewhere classifiedEffusion, left wristWeaknessPrimar y osteoarthritis, unspecified wrist Mar-0 6-201 9 Stern Katherin. [address] [place] [address], [address], [place], [address], [place]. tel:[phone] Referring Provider: Kirby Rm, [address] , [place], [address]. tel:[phone] [facility] [address], [place], [place], [address], [place] tel:[phone] [place] Pain in left wristStiffness of left wrist, not elsewhere classifiedEffusion, left wristWeaknessPrimar y osteoarthritis, unspecified wrist Mar-0 4-201 9 Stern Katherin. [address] [place] [address], [address], [place], [address], [place]. tel:[phone] Referring Provider: Kirby Rm, [address] , [place], [address]. tel:[phone] [facility] [address], [place], [place], [id number], [place] tel:[phone] [place] Pain in left wristStiffness of left wrist, not elsewhere classifiedEffusion, left wristWeaknessPrimar y osteoarthritis, unspecified wrist Mar-0 1-201 9 Stern Katherin. [address] [place] [address], [address], [place], [address], [place]. tel:[phone] Referring Provider: Kirby Rm, [address] , [place], [address]. tel:[phone] [facility] [address], [place], [place], [address], [place] tel:[phone] [place] Pain in left wristStiffness of left wrist, not elsewhere classifiedEffusion, left wristWeaknessPrimar y osteoarthritis, unspecified wrist Feb-2 7-201 9 Stern Katherin. [address] [place] [address], [address], [place], [facility], . tel:[phone] Referring Provider: Kirby Rm, [address] , [place], [address]. tel:[phone] [facility] [address], [place], [place], [id number], [place] tel:[phone] [place] Pain in left wristStiffness of left wrist, not elsewhere classifiedEffusion, left wristWeaknessPrimar y osteoarthritis, unspecified wrist Feb-2 5-201 9 Stern Katherin. [address] [place] [address], [address], [place], [place], [facility], [place]. tel:[phone] Referring Provider: Kirby Rm, [address] , [place], [address]. tel:[phone] [facility] [address], [place], [place], [address], [place] tel:[phone] [place] Pain in left wristStiffness of left wrist, not elsewhere classifiedEffusion, left wristWeaknessPrimar y osteoarthritis, unspecified wrist Feb-2 1-201 9 Stern Katherin. [address] [place] [address], [address], [place], [facility], [place]. tel:[phone] Referring Provider: Kirby Rm, [address] , [place], [address]. tel:[phone] [facility] [address], [place], [place], [id number], [place] tel:[phone] [place] Pain in left wristStiffness of left wrist, not elsewhere classifiedEffusion, left wristWeaknessPrimar y osteoarthritis, unspecified wrist Feb-2 0-201 9 Stern Katherin. [address] [place] [address], [address], [place], [facility], [place]. tel:[phone] Referring Provider: Kirby Rm, [address], [place], [address]. tel:[phone] [facility] [address], [place], [place], [id number], [place] tel:[phone] [place] Pain in left wristStiffness of left wrist, not elsewhere classifiedEffusion, left wristWeaknessPrimar y osteoarthritis, unspecified wrist [address] [facility], [address], [place], [address], [place]. tel:[phone] Referring Provider: Kirby Rm, [address], [place], [address]. tel:[phone] [facility] [address], [place], [place], [address], [place] tel:[phone] [place] Pain in left wristStiffness of left wrist, not elsewhere classifiedEffusion, left wristWeakness 9 Stern Katherin. [address] [place] [address], [address], [place], [address], [place]. tel:[phone] Referring Provider: Kirby Rm, [address] , [place], [address]. tel:[phone] [facility] [address], [place], [place], [address], [place] tel:[phone] [place] Pain in left wristStiffness of left wrist, not elsewhere classifiedEffusion, left wristWeakness [address] [facility], [address], [place], [address], [place]. tel:[phone] Referring Provider: Kirby Rm, [address], [place], [address]. tel:[phone] [facility] [address], [place], [place], [address], [place] tel:[phone] [place] Pain in left wristStiffness of left wrist, not elsewhere classifiedEffusion, left wristWeakness Feb-1 1-[address] [facility], [place] [address], . tel:[phone] Referring Provider: Kirby Rm [address] [facility], [place], [address]. tel:[phone], [id number], tel:[phone] [place] Pain in left wristStiffness of left wrist, not elsewhere classifiedEffusion, left wristWeakness Feb-0 8-201 9 Jarred Pandey. [address] [place] [address], [address], [facility], . tel:[phone] Referring Provider: Kirby Rm, [address] [facility], [place], [address]. tel:[phone], [place], [place], [address], tel:[phone] [place] Pain in left wristStiffness of left wrist, not elsewhere classifiedEffusion, left wristWeakness Feb-0 6-201 9 Jarred Pandey. [address] [place] [address], [address], [facility], . tel:[phone] Referring Provider: Kirby Rm, [address] [facility], [place], [address]. tel:[phone] Family History Family Member Type Diagnosis Age [...]
--- OUTSIDE RECORDS SUMMARY | 2024-12-14 19:11 | XMS_ITS | Clinical Summary ---
Author Organization [facility] Address [address] [place] [address] Phone Care Team Providers Care Refrigeration Supervisor Name Role Phone Chris Tolentino MD Unavailable [phone] Terra Pineda MD Unavailable Provider, None Primary [...] Covid-19 Vaccine, Vector-nr, Rs-ad26, Pf, 0.5 Ml ([employer]) 08/23/2020 Hepatitis A And Hepatitis B Vaccine [...] 2:49 PM CDT Height 167.6 cm (5' 6) 04/07/2018 2:49 PM CDT Body Mass Index 31.96 04/07/2018 2:49 PM CDT Plan of Treatment Health Maintenance Due Date Last Done Comments Hepatitis C Virus (HCV) Screening 1950 Cologuard 1994 Colonoscopy 1994 Colorectal Cancer Screening 1994 Immunochemical Fecal Occult Blood 1994 Zoster Immunization (2 of 3) 12/29/2013 11/03/2013 Respiratory Syncytial Virus (RSV) Immunization (Adult) (1 - 1-dose 75+ series) 02/11/2024 SARS-COV-2 Immunization (2 - season) 2024 08/23/2020 Influenza Immunization (#1) 2025 1007/2019, 03/23/2018, 03/20/2017 DTaP/Tdap/Td Immunization Discontinued 02/02/2012 Pneumococcal Immunization (50+ years) Completed 01/22/2017, 03/05/2015 Pneumococcal Immunization Combined Discontinued 01/22/2017, 03/05/2015 Hepatitis B Immunization Completed 018, 03/26/2018, 05/27/2013, Additional history exists Human Papillomavirus (HPV) Immunization Aged Out No longer eligible based on patient's age to complete this topic Meningococcal Immunization (ACWY) Aged Out No longer eligible based on patient's age to complete this topic Rotavirus Immunization Aged Out No lo nger eligible based on patient's age to complete this topic Insurance MEDICARE C [employer] Care Teams Refrigeration Supervisor Relationship Specialty Start Date End Date Provider, None [place] PCP - General 05/10/21 Chris Tolentino MD Consulting Physician Orthopaedic Sports Medicine 04/07/18 Terra Pineda MD [address] [place] [address] Consulting Physician Internal Medicine 04/07/18
--- NOTE | 2024-12-14 19:30 | ECG_ITS ---
Test Date: 2024-12-14 19:41:20 Measurements Intervals [employer] Rate: 97 P: 222 OR: 162 QRS: 132 QRSD: 153 T: 0 QT: 385 QTc: 489 Interpretive Statements SINUS RHYTHM RIGHT AXIS DEVIATION [QRS AXIS > 100] RIGHT BUNDLE BRANCH BLOCK [120+ ms QRS DURATION, UPRIGHT V1, 40+ ms S IN I/aVL/V4/V5/V6] MODERATE T-WAVE ABNORMALITY, CONSIDER INFERIOR ISCHEMIA [-0.1+ mV T-WAVE IN II/aVF] Compared to ECG 12/05/2024 18:52:45 T-wave abnormality now present Possible ischemia now present Atrial premature complex(es) no longer present Electronically Signed On 12-15-2024 16:37:48 CDT by Mehrdad Sutton
[2024-12-14 19:39] LABS: Hematocrit 41.1 % (42.0-52.0); Hemoglobin 12.2 g/dL (14.0-18.0); Immature Granulocyte Percent A 0.2 % (0-0.5); Lymphocytes Absolute Auto 2.87 K/mm3 (0.9-3.2); Mean Corpuscular HGB Conc 29.7 g/dl (32-36); Mean Corpuscular Hemoglobin 25.2 pg (26-34); Mean Corpuscular Volume 84.7 fl (80-100); Nucleated Red Blood Cells Absolute Auto 0.000 K/mm3 (0.0-0.012); Nucleated Red Blood Cells Perc 0.0 % (0.0-0.2); Platelet Count Result 242 k/mm3 (150-375); Red Blood Count 4.85 M/mm3 (4.6-6.20); White Blood Count 10.2 K/mm3 (4.5-10.0)
--- OUTSIDE RECORDS SUMMARY | 2024-12-14 19:42 | XMS_ITS | Referral Summary ---
Author Organization [facility] Address [address] [place] [address] Care Team Providers Care Contracts Paralegal Name Role Phone Unknown, Notinfile Primary Care Provider Unavail able Encounters Date Type Department Care Team Description 10/27/2024 Orders Only [facility] Cardiology [address] [place] [address] Amaya Mirza NP from Last [...] needed Assessment & Plan (07/23/2018 12:58 PM BALANCE SCREWHEAD POLISHER): Reports compliance with wound care/splinting/hand therapy Healing [...] on file Legal Sex Male 1:47 AM BALANCE SCREWHEAD POLISHER Gender Identity Not on file Sexual Orientation [...] on file Medical Devices Implanted Type Area Cae Engineer Device Identifier Shelf Expiration Date Model / Serial / Lot [employer] 8600-5x05 Graftjacket [id number] Regenerative Nonmesh Standard Graft - [id number] Implanted:Qty: 1 on 07/06/2018 by Kirby Rm III, MD at [facility] Left: Wrist [employer] 01/13/2020 8600-5X05 / / [id number] Procedures Procedure Name Priority Date/Time Associated Diagnosis Comments CARDIOLOGY DOCUMENT SCAN Routine 10/22/2024 9:09 AM CDT CARDIOLOGY DOCUMENT SCAN Routine 10/21/2024 8:50 AM CDT COLONOSCOPY 07/16/2017 7:32 AM BALANCE SCREWHEAD POLISHER from Last 3 Months or Most Recently [...] Final Result * COLONOSCOPY (07/16/2017 7:32 AM BALANCE SCREWHEAD POLISHER) Anatomical Region Laterality Modality Other Narrative Procedure Note Michael Bran MD - 07/16/2017 7:32 AM CST [facility] Patient Name: Js Contreras Procedure Date: 07/16/2017 7:32 AM Date of : 1950 Admit Type: Outpatient Age: 67 Gender: Male Attending MD: Michael Gonzalez M.D. Room: [facility] ENDOSCOPY ROOM 2 Note Status: Finalized [...] scope was passed under direct vision.The Colonoscope [id number] was introducedthrough the anus and advanced to [...] 7:32 AM Procedure Code(s): --- Professional --- 06461, Colonoscopy, flexible; with removal of tumor(s), polyp(s), or other lesion(s) by snare technique Diagnosis Code(s): --- Professional --- Z86.010, Personal history of colonic polyps K64.8, Other hemorrhoids D12.5, Benign neoplasm of sigmoid colon K57.30, Diverticulosis of large intestine without perforation orabscess without bleeding CPT copyright 2014 [employer]. All rights reserved. The codes documented in this report are preliminary and upon glass cutter hand reviewmay be revised to meet current compliance requirements. Recognized by the [employer] for promoting quality in endoscopy Michael Shaw MD ENDOSCOPY PROCEDUR ES Final Result from Last 3 Months or Most Recently Relevant to Health Maintenance Insurance [facility] CHOICE MEDICARE O MEDICARE [facility] AETNA MEDICARE GOLD [facility] UHC MEDICARE ADVANTAGE Care Teams Contracts Paralegal Relationship Specialty Start Date End Date Unknown, Notinfile PCP - General 07/09/23
--- OUTSIDE RECORDS SUMMARY | 2024-12-14 19:42 | XMS_ITS | Clinical Summary ---
Author Organization [facility] Address [address] [place] [address] Care Team Providers Care Breaker Operator Name Role Phone Unknown, Notinfile Primary [...] needed Assessment & Plan (07/23/2018 12:58 PM RAMP MANAGER): Reports compliance with wound care/splinting/hand therapy [...] Department Care Team Description 10/27/2024 Orders Only [facility] Cardiology [address] [place] [address] Amaya Mirza NP from Last 3 Months [...] on file Legal Sex Male 1:47 AM RAMP MANAGER Gender Identity Not on file Sexual [...] history exists Medical Devices Implanted Type Area Recyclable Materials Sorter Device Identifier Shelf Expiration Date Model / Serial / Lot [employer] 8600-5x05 Graftjacket [id number] Regenerative Nonmesh Standard Graft - [id number] Implanted:Qty: 1 on 07/06/2018 by Kirby Rm III, MD at [facility] Left: Wrist [employer] 01/13/2020 8600-5X05 / / [id number] Procedures Procedure Name Priority Date/Time Associated Diagnosis Comments CARDIOLOGY DOCUMENT SCAN Routine 10/22/2024 9:09 AM CDT CARDIOLOGY DOCUMENT SCAN Routine 10/21/2024 8:50 AM CDT COLONOSCOPY 07/16/2017 7:32 AM RAMP MANAGER from Last 3 Months or Most [...] Final Result * COLONOSCOPY (07/16/2017 7:32 AM RAMP MANAGER) Anatomical Region Laterality Modality Other Narrative Procedure Note Michael Barn MD - 07/16/2017 7:32 AM CST [facility] Patient Name: Js Contreras Procedure Date: 07/16/2017 7:32 AM Date of : 1950 Admit Type: Outpatient Age: 67 Gender: Male Attending MD: Michael Gonzalez M.D. Room: [facility] ENDOSCOPY ROOM 2 Note Status: Finalized [...] scope was passed under direct vision.The Colonoscope [id number] was introducedthrough the anus and advanced to [...] 7:32 AM Procedure Code(s): --- Professional --- 38486, Colonoscopy, flexible; with removal of tumor(s), polyp(s), or other lesion(s) by snare technique Diagnosis Code(s): --- Professional --- Z86.010, Personal history of colonic polyps K64.8, Other hemorrhoids D12.5, Benign neoplasm of sigmoid colon K57.30, Diverticulosis of large intestine without perforation orabscess without bleeding CPT copyright 2014 [employer]. All rights reserved. The codes documented in this report are preliminary and upon factorer reviewmay be revised to meet current compliance requirements. Recognized by the [employer] for promoting quality in endoscopy Michael Shaw MD ENDOSCOPY PROCEDUR ES Final Result from Last 3 Months or Most Recently Relevant to Health Maintenance Insurance [employer] CHOICE MEDICARE PPO MEDICARE [facility] AETNA MEDICARE GOLD [facility] UHC MEDICARE ADVANTAGE [facility] MED[facility] Address: [address] [address] [place] [address] Care Teams Breaker Operator Relationship Specialty Start Date End Date Unknown, Notinfile PCP - General 07/09/23
--- OUTSIDE RECORDS SUMMARY | 2024-12-14 19:42 | XMS_ITS | Continuity of Care Document ---
Author Organization [facility] Address [address] [place] [address] [address] [place] [address] Phone Care Team Providers Care Natural Gas Engineer Name Role Phone Screen, Clinician Unavailable Unavailable [...] Diagnoses Date Provider Providers Copied on Encounter [facility], [place], [place], [id number], [place] tel:[phone] [place] No Information Jan-0 9 Screen Clinician. . Referring Provider: Physician Calin. [facility], [place], [place], [id number], [place] tel:[phone] [place] No Information 9 Screen Clinician. . Referring Provider: Physician Screen. [facility], [place], [place], [address], [place] tel:[phone] [place] Pain in left wristStiffness of left wrist, not elsewhere classifiedEffusion, left wristWeaknessPrimar y osteoarthritis, unspecified wrist Sep-0 9 Stern Katherin. [address] [place] [address], [address], [place], [place], [facility], . tel:[phone] Referring Provider: Karen Lazo [address] , [place], [address]. tel:[phone] [facility], [place], [place], [id number], [place] tel:[phone] [place] Pain in left wristStiffness of left wrist, not elsewhere classifiedEffusion, left wristWeaknessPrimar y osteoarthritis, unspecified wrist Sep-0 9 Stern Katherin. [address] [place] [address], [address], [place], [place], [facility], [place]. tel:[phone] Referring Provider: Kirby Rm [address] , [place], [address]. tel:[phone] [facility], [place], [place], [address], [place] tel:[phone] [place] Pain in left wristStiffness of left wrist, not elsewhere classifiedEffusion, left wristWeaknessPrimar y osteoarthritis, unspecified wrist Aug- 9 Stern Katherin. [address] [place] [address], [address], [place], [address], [place]. tel:[phone] Referring Provider: Kirby Rm, [address], [place], [address]. tel:[phone] [facility], [address], [place], [place], [id number], [place] tel:[phone] [place] Pain in left wristStiffness of left wrist, not elsewhere classifiedEffusion, left wristWeaknessPrimar y osteoarthritis, unspecified wrist Mar-2 7-201 9 Stern Katherin. [address] [facility], [address], [place], [address], [place]. tel:[phone] Referring Provider: Kirby Rm, [address] , [place], [address]. tel:[phone] [facility], [address], [place], [place], [address], [place] tel:[phone] [place] Pain in left wristStiffness of left wrist, not elsewhere classifiedEffusion, left wristWeaknessPrimar y osteoarthritis, unspecified wrist Mar-1 9-201 9 Stern Katherin. [address] [place] [address], [address], [place], [address], [place]. tel:[phone] Referring Provider: Kirby Rm, [address], [place], [address]. tel:[phone] [facility], [place], [place], [address], [place] tel:[phone] [place] Pain in left wristStiffness of left wrist, not elsewhere classifiedEffusion, left wristWeaknessPrimar y osteoarthritis, unspecified wrist Mar-1 8-201 9 Stern Katherin. [address] [facility], [address], [place], [address], [place]. tel:[phone] Referring Provider: Kirby Rm, [address], [place], [address]. tel:[phone] [facility], [place], [place], [address], [place] tel:[phone] [place] Pain in left wristStiffness of left wrist, not elsewhere classifiedEffusion, left wristWeaknessPrimar y osteoarthritis, unspecified wrist Mar-1 5-201 9 Stern Katherin. [address] [place] [address], [address], [place], [address], [place]. tel:[phone] Referring Provider: Kirby Rm, [address], [place], [address]. tel:[phone] [facility], [address], [place], [place], [id number], [place] tel:[phone] [place] Pain in left wristStiffness of left wrist, not elsewhere classifiedEffusion, left wristWeaknessPrimar y osteoarthritis, unspecified wrist Mar-1 3-201 9 Stern Katherin. [address] [place] [address], [address], [place], [address], [place]. tel:[phone] Referring Provider: Kirby Rm, [address], [place], [address]. tel:[phone] [facility], [address], [place], [place], [id number], [place] tel:[phone] [place] Pain in left wristStiffness of left wrist, not elsewhere classifiedEffusion, left wristWeaknessPrimar y osteoarthritis, unspecified wrist Mar-1 1-201 9 Stern Katherin. [address] [place] [address], [address], [place], [address], [place]. tel:[phone] Referring Provider: Kirby Rm, [address], [place], [address]. tel:[phone] [facility], [place], [place], [id number], [place] tel:[phone] [place] Pain in left wristStiffness of left wrist, not elsewhere classifiedEffusion, left wristWeaknessPrimar y osteoarthritis, unspecified wrist Mar-0 8-201 9 Stern Katherin. [address] [place] [address], [address], [place], [address], [place]. tel:[phone] Referring Provider: Kirby Rm, [address] , [place], [address]. tel:[phone] [facility] [address], [place], [place], [id number], [place] tel:[phone] [place] Pain in left wristStiffness of left wrist, not elsewhere classifiedEffusion, left wristWeaknessPrimar y osteoarthritis, unspecified wrist Mar-0 6-201 9 Stern Katherin. [address] [place] [address], [address], [place], [address], [place]. tel:[phone] Referring Provider: Kirby Rm, [address] , [place], [address]. tel:[phone] [facility] [address], [place], [place], [id number], [place] tel:[phone] [place] Pain in left wristStiffness of left wrist, not elsewhere classifiedEffusion, left wristWeaknessPrimar y osteoarthritis, unspecified wrist Mar-0 4-201 9 Stern Katherin. [address] [place] [address], [address], [place], [address], [place]. tel:[phone] Referring Provider: Kirby Rm, [address] , [place], [address]. tel:[phone] [facility] [address], [place], [place], [id number], [place] tel:[phone] [place] Pain in left wristStiffness of left wrist, not elsewhere classifiedEffusion, left wristWeaknessPrimar y osteoarthritis, unspecified wrist Mar-0 1-201 9 Stern Katherin. [address] [place] [address], [address], [place], [address], [place]. tel:[phone] Referring Provider: Kirby Rm, [address] , [place], [address]. tel:[phone] [facility] [address], [place], [place], [id number], [place] tel:[phone] [place] Pain in left wristStiffness of left wrist, not elsewhere classifiedEffusion, left wristWeaknessPrimar y osteoarthritis, unspecified wrist Feb-2 7-201 9 Stern Katherin. [address] [place] [address], [address], [place], [place], [facility], . tel:[phone] Referring Provider: Kirby Rm, [address] , [place], [address]. tel:[phone] [facility] [address], [place], [place], [address], [place] tel:[phone] [place] Pain in left wristStiffness of left wrist, not elsewhere classifiedEffusion, left wristWeaknessPrimar y osteoarthritis, unspecified wrist Feb-2 5-201 9 Stern Katherin. [address] [place] [address], [address], [place], [place], [facility], [place]. tel:[phone] Referring Provider: Kirby Rm, [address] , [place], [address]. tel:[phone] [facility] [address], [place], [place], [address], [place] tel:[phone] [place] Pain in left wristStiffness of left wrist, not elsewhere classifiedEffusion, left wristWeaknessPrimar y osteoarthritis, unspecified wrist Feb-2 1-201 9 Stern Katherin. [address] [place] [address], [address], [place], [place], [facility], [place]. tel:[phone] Referring Provider: Kirby Rm, [address] , [place], [address]. tel:[phone] [facility] [address], [place], [place], [address], [place] tel:[phone] [place] Pain in left wristStiffness of left wrist, not elsewhere classifiedEffusion, left wristWeaknessPrimar y osteoarthritis, unspecified wrist Feb-2 0-201 9 Stern Katherin. [address] [place] [address], [address], [place], [place], [facility], [place]. tel:[phone] Referring Provider: Kirby Rm, [address], [place], [address]. tel:[phone] [facility] [address], [place], [place], [id number], [place] tel:[phone] [place] Pain in left wristStiffness of left wrist, not elsewhere classifiedEffusion, left wristWeaknessPrimar y osteoarthritis, unspecified wrist 9 Stern Katherin. [address] [facility], [address], [place], [address], [place]. tel:[phone] Referring Provider: Kirby Rm, [address], [place], [address]. tel:[phone] [facility] [address], [place], [place], [address], [place] tel:[phone] [place] Pain in left wristStiffness of left wrist, not elsewhere classifiedEffusion, left wristWeakness 9 Stern Katherin. [address] [place] [address], [address], [place], [address], [place]. tel:[phone] Referring Provider: Kirby Rm, [address] , [place], [address]. tel:[phone] [facility] [address], [place], [place], [address], [place] tel:[phone] [place] Pain in left wristStiffness of left wrist, not elsewhere classifiedEffusion, left wristWeakness 9 Stern Katherin. [address] [facility], [address], [place], [address], [place]. tel:[phone] Referring Provider: Kirby Rm, [address], [place], [address]. tel:[phone] [facility] [address], [place], [place], [address], [place] tel:[phone] [place] Pain in left wristStiffness of left wrist, not elsewhere classifiedEffusion, left wristWeakness Feb-1 1-201 9 Jarred Pandey. [address] [facility], [place] [address], . tel:[phone] Referring Provider: Kirby Rm [address] [facility], [place], [address]. tel:[phone], [id number], tel:[phone] [place] Pain in left wristStiffness of left wrist, not elsewhere classifiedEffusion, left wristWeakness Feb-0 8-201 9 Jarred Pandey. [address] [place] [address], [address], [facility], . tel:[phone] Referring Provider: Kirby Rm, [address] [facility], [place], [address]. tel:[phone], [place], [place], [address], tel:[phone] [place] Pain in left wristStiffness of left wrist, not elsewhere classifiedEffusion, left wristWeakness Feb-0 6-201 9 Jarred Pandey. [address] [place] [address], [address], [facility], . tel:[phone] Referring Provider: Kirby Rm, [address] [facility], [place], [address]. tel:[phone] Family History Family Member Type Diagnosis Age At Onset No Information Payers Payer name Insurance type Covered republican ID Krish gibson(s) [employer] [...]
--- OUTSIDE RECORDS SUMMARY | 2024-12-14 19:42 | XMS_ITS | Clinical Summary ---
Author Organization [facility] Address [address] [place] [address] Phone Care Team Providers Care Linux Server Engineer Name Role Phone Chris Tolentino MD Unavailable [phone] Terra Pineda MD Unavailable Provider, None Primary [...] Covid-19 Vaccine, Vector-nr, Rs-ad26, Pf, 0.5 Ml ([employer]) 08/23/2020 Hepatitis A And Hepatitis B Vaccine [...] topic Insurance MEDICARE C HU[employer] Care Teams Linux Server Engineer Relationship Specialty Start Date End Date Provider, None [place] PCP - General 05/10/21 Chris Tolentino MD Consulting Physician Orthopaedic Sports Medicine 04/07/18 Terra Pineda MD [id number] [place] [address] Consulting Physician Internal Medicine 04/07/18
--- NOTE | 2024-12-14 19:47 | ED.EXTPRO ---
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 Patient presents to the emergency department for evaluation of bilateral lower extremity leg swelling and some exertional dyspnea. He states he ran out of his Lasix several weeks ago and has been just taking what he can get from family and friends. He is currently taking 20 mg of Lasix a day but this is half the dose that he was on previously. He has noticed that he is having worsening swelling to the ankles and whenever he gets up and exerts himself he feels more short of breath. Denies any chest pain or exertional chest pain, no nausea, vomiting, abdominal pain, back pain. At rest he has no symptoms. No leg pain or claudication type symptoms. States that he has a [facility] doctor that he has not seen and not tried to contact for follow-up appointment since his recent discharge from the hospital. On review of the EMR he was hospitalized recently several months ago for similar and was optimized after Cardiology evaluated him and placed him on higher dose of Lasix and recommended Entresto and Jardiance outpatient. Related Data Home Medications ?Medication ?Instructions ?Recorded ?Confirmed ?Last Taken ?Type aspirin 81 mg chewable tablet 81 mg PO DAILY 08/23/24 10/20/24 10/20/24 History cholecalciferol (vitamin D3) 50 2,000 unit PO DAILY 08/23/24 10/20/24 10/20/24 History mcg (2,000 unit) capsule Allergies Allergy/AdvReac Type Severity Reaction Status Date / Time No Known Drug Allergies Allergy Other Verified 12/05/24 17:47 Review of Systems Review of Systems: As reviewed above in HPI [facility] Past Medical History Medical History Eczema Sleep apnea Hypertension Hyperlipidemia Vitamin D deficiency Substance abuse Atrial fibrillation Congestive heart failure Surgical History Surgical History History of umbilical hernia repair robotic assisted repair incarcerated umbilical hernia measuring 4.5 cm, myofascial release x2 H/O hemorrhoidectomy History of appendectomy History of carpal tunnel release Family History Family History Mother Parkinson disease Father Alcohol abuse Social History Social History Social History: Lives with grand daughter (13 year old) 1 dog Smoking status: Never smoker Second hand tobacco smoke exposure: Yes Alcohol intake: current Drinks per week: 2 Substance use: never Substance use type: marijuana and crack/cocaine Other substance usage details: once in while, last used 2 weeks ago Do You Feel Safe in your Home?: Yes Lack of Transportation: No Lack of Food: Never True Current Housing: I Have Housing Concerned About Future Housing: No Difficulty Paying Gas/Electric Bills: No Difficulty Paying for Meds: No Currently Unemployed: No Education: High School Diploma/GED Difficulty w/ Childcare or Family Care: No Spiritual care concerns: No Exam Narrative: GENERAL: [Well-appearing, well-nourished, and in no acute distress.] HEAD: [Normocephalic, atraumatic.] EYES: [PERRLA and EOMI.] ENT: Nares clear, no rhinorrhea or epistaxis. Mucous membranes moist. NECK: Supple. CHEST: [Clear to auscultation. No respiratory distress.] HEART: [Regular rate and rhythm]. No murmur heard. [Normal peripheral pulses.] ABDOMEN: [Soft, nondistended], [nontender], [No rigidity or guarding] EXTREMITIES: Normal range of motion. 2+ bilateral pitting edema to the mid calf and symmetric. SKIN: Warm, dry, no rash. NEURO: [No focal deficits]. Alert and oriented [x3.] PSYCH: [Normal mood and affect.] Course Vital Signs Vital signs: Vital Signs Temperature 36.6 C 12/14/24 19:21 Pulse Rate 107 H 12/14/24 19:21 Respiratory Rate 21 H 12/14/24 19:21 Blood Pressure 128/88 12/14/24 19:21 Pulse Oximetry 98 12/14/24 19:21 Oxygen Delivery Room Air 12/14/24 19:21 Temperature 36.6 C 12/14/24 19:21 Pulse Rate 103 H 12/14/24 20:04 Respiratory Rate 16 12/14/24 20:04 Blood Pressure 138/99 H 12/14/24 20:04 Pulse Oximetry 94 12/14/24 20:04 Oxygen Delivery Room Air 12/14/24 19:21 MDM - Extremity (Nontraumatic) MDM Narrative Medical decision making narrative: 74-year-old male with a past medical history including 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 Patient presents to the emergency department for evaluation of bilateral lower extremity leg swelling and some exertional dyspnea. He states he ran out of his Lasix several weeks ago and has been just taking what he can get from family and friends. He is currently taking 20 mg of Lasix a day but this is half the dose that he was on previously. He has noticed that he is having worsening swelling to the ankles and whenever he gets up and exerts himself he feels more short of breath. Denies any chest pain or exertional chest pain, no nausea, vomiting, abdominal pain, back pain. At rest he has no symptoms. No leg pain or claudication type symptoms. States that he has a [facility] doctor that he has not seen and not tried to contact for follow-up appointment since his recent discharge from the hospital. On review of the EMR he was hospitalized recently several months ago for similar and was optimized after Cardiology evaluated him and placed him on higher dose of Lasix and recommended Entresto and Jardiance outpatient. Patient does not appear in any acute distress but does have symmetric bilateral lower extremity edema to the calves. Clear breath sounds throughout without any rales or wheezing. He overall appears well in converse in full sentences. Symptomatology likely secondary to heart failure exacerbation from medication noncompliance and fluid overload. He is saturating 98% on room air with normal blood pressure which is reassuring. Will obtain laboratory studies including CBC, CMP, BNP, chest x-ray and EKG and he was given additional Lasix here through an IV and re-evaluated. Placed on steam and gas turbines assembler and telemetry. Patient's chest x-ray shows pulmonary edema and atelectasis versus pneumonia bilaterally. He did get up to ambulate to go the bathroom and had worsening difficulty in breathing but no chest pain. He was found to be 83% on room air on arrival from the bathroom. He was placed on 3 L nasal cannula at this time. He states he occasion wears oxygen at night but never uses it around the day. He does have signs and symptoms of a congestive heart failure exacerbation and now currently requiring oxygen. He was started on community-acquired coverage including azithromycin and Rocephin given the x-ray findings of potential pneumonia and blood cultures were ordered. I discussed the case with the hospitalist team who has accepted him to a telemetry monitored bed for inpatient hospitalization. I spoke with the patient at bedside was comfortable with admission and treatment plan. Lab Data 12/14/24 19:34 12/14/24 19:34 Labs: Lab Results 12/14/24 Range/Units 19:34 WBC 10.2 H (4.5-10.0) K/mm3 RBC 4.85 (4.6-6.20) M/mm3 Hgb 12.2 L (14.0-18.0) g/dL Hct 41.1 L (42.0-52.0) % MCV 84.7 (80-100) fl MCH 25.2 L (26-34) pg MCHC 29.7 L (32-36) g/dl RDW 18.0 H (11.5-14.5) % Plt Count 242 (150-375) k/mm3 MPV 9.3 (7.4-10.4) fl Immature Gran % (Auto) 0.2 (0-0.5) % Neut % (Auto) 58.6 (45.5-73.1) % Lymph % (Auto) 28.2 (18.3-44.2) % [place] % (Auto) 10.7 H (2.6-8.5) % Eos % (Auto) 1.4 (0-4.4) % Baso % (Auto) 0.9 (0.2-1.2) % Lymph # (Auto) 2.87 (0.9-3.2) K/mm3 [place] # (Auto) 1.1 H (0.1-0.6) K/mm3 Eos # (Auto) 0.1 (0-0.3) K/mm3 Baso # (Auto) 0.1 (0.0-0.1) K/mm3 Abs Immat Gran (auto) 0.02 (0.00-0.031) K/mm3 Absolute Neuts (auto) 6.0 (1.3-6.7) K/mm3 Absolute Nucleated RBC 0.000 (0.0-0.012) K/mm3 Band Neutrophils % 0 (0-6) % Nucleated RBC % 0.0 (0.0-0.2) % Platelet Estimate Adequate (Adequate) Hypochromasia 1+ Anisocytosis 2+ Schistocytes None seen PT 14.9 H (11.1-14.7) Seconds INR 1.2 APTT 32.2 (22.3-36.8) Seconds Sodium 141 (137-145) mmol/L Potassium 4.0 (3.4-5.0) mmol/L Chloride 98 (98-107) mmol/L Carbon Dioxide 36 H (22-30) mmol/L Anion Gap 7 (4-12) mmol/L BUN 19 (9-20) mg/dL Creatinine 0.79 (0.7-1.3) mg/dL Estim Creat Clear Calc Not Reportable Estimated GFR > 60 (59 - ) Glucose 118 H (65-110) mg/dL Calcium 8.6 (8.4-10.2) mg/dL Total Bilirubin 0.5 (0.2-1.3) mg/dL AST 30 (17-59) U/L ALT 15 (6-50) U/L Alkaline Phosphatase 82 (38-126) U/L NT-Pro-B Natriuret Pep 5810 H (19.9-100) pg/mL Total Protein 7.3 (6.3-8.2) g/dL Albumin 3.7 (3.5-5.1) g/dL Critical Care Time Critical Care Time Critical Care Time: Yes Total Critical Care Time: 35 Discharge Plan Discharge Clinical Impression: Acute on chronic hypoxic respiratory failure, Bilateral pneumonia, Hypoxemia requiring supplemental oxygen Acute exacerbation of CHF (congestive heart failure) Qualifiers: Heart failure type: combined systolic and diastolic Qualified Code(s): I50.43 - Acute on chronic combined systolic (congestive) and diastolic (congestive) heart failure Patient Disposition: Still a Patient Condition: Stable Patient Language: Jamaican Prescriptions: No Action nitroglycerin [Nitrostat] 0.4 mg Tablet, Sublingual 0.4 mg sublingual Q5MIN PRN (Reason: Chest Pain) Qty: 30 0RF Entresto 24-26 mg Tablet 1 tab PO Q12HR Qty: 30 0RF spironolactone 25 mg tablet 12.5 mg PO DAILY Qty: 30 0RF empagliflozin 10 mg tablet 10 mg PO DAILY Qty: 30 0RF aspirin 81 mg tablet,chewable 81 mg PO DAILY cholecalciferol (vitamin D3) 50 mcg (2,000 unit) capsule 2,000 unit PO DAILY furosemide 40 mg Tablet 40 mg PO DAILY Qty: 30 1RF metoprolol succinate [Toprol XL] 100 mg Tablet Extended Release 24 Hr 100 mg PO QAM Qty: 60 0RF potassium chloride 20 mEq Packet 20 meq PO DAILY Qty: 30 0RF rosuvastatin [Crestor] 20 mg tablet 10 mg PO HS Qty: 30 0RF albuterol sulfate [Ventolin HFA] 90 mcg/actuation HFA aerosol inhaler 1 inh inhalation QID PRN (Reason: shortness of breath or wheezing) Qty: 8.5 2RF Follow-up/Referrals: [facility] [Primary Care Provider] - Time of Disposition: 21:00
[2024-12-14 19:49] LABS: Alanine Aminotransferase 15 U/L (6-50); Albumin Level 3.7 g/dL (3.5-5.1); Alkaline Phosphatase 82 U/L (38-126); Anion Gap 7 mmol/L (4-12); Aspartate Amino Transferase 30 U/L (17-59); Bilirubin,Total 0.5 mg/dL (0.2-1.3); Blood Urea Nitrogen 19 mg/dL (9-20); Calcium 8.6 mg/dL (8.4-10.2); Carbon Dioxide 36 mmol/L (22-30); Chloride 98 mmol/L (98-107); Estimated Glomerular Filt Rate > 60; Glucose 118 mg/dL (65-110); Potassium 4.0 mmol/L (3.4-5.0); Sodium 141 mmol/L (137-145); Total Protein 7.3 g/dL (6.3-8.2)
[2024-12-14 19:51] LABS: INR 1.2; Prothrombin Time 14.9 Seconds (11.1-14.7)
[2024-12-14 19:52] LABS: Partial Thromboplastin Time 32.2 Seconds (22.3-36.8)
[2024-12-14 19:57] LABS: Band Neutrophils Percent 0 % (0-6); Hypochromasia 1+; Schistocytes None Seen
[2024-12-14 19:58] LABS: Anisocytosis 2+; NT Pro B Type Natriuretic Pept 5810 pg/mL (19.9-100)
--- NOTE | 2024-12-14 20:03 | PC.NURSE ---
3+ pitting edema to BLE. Pt. states oh, this has been going on for about a month. Denies any CP. Endorses SOB with exertion.
[2024-12-14] MEDS: FUROSEMIDE INJ 40 MG/4 ML VIAL 60 MG IV PUSH (20:05)
--- NOTE | 2024-12-14 21:15 | PC.NURSE ---
ED techs at bedside changing pt. linens.
--- NOTE | 2024-12-14 21:24 | P.HP_ITS ---
H&P: HPI History of Present Illness Date/Time: 12/14/24 21:24 Chief Complaint: Edema bilateral lower extremities Narrative: This is a 74-year-old male patient with past medical history of heart failure, EMR documented AFib, substance abuse, hypertension, hyperlipidemia, sleep apnea, vitamin-D deficiency and alcoholic cirrhosis of liver who comes to the emergency room with complaints of having edema to the bilateral lower extremities and dyspnea on exertion for the past couple of weeks. Patient is a patient at [facility] and reports seen Cardiology there but it has been over a year since he saw them. Patient has suspected history of COPD as he does wear 2 L of supplemental oxygen at bedtime. Patient reports it has been at least a month and a half that he has been out of his Lasix and also has not been taking his Entresto. Patient has not reached out to his operations research scientist or to the [place] for a refill of his medications instead, he has taken some of his family's Lasix he also takes the medication. Patient reports that he is unsure how to get these medications filled. He has had previous admissions here at this facility with recent discharge in October of 2024 from an acute on chronic heart failure exacerbation. Patient had echocardiogram performed here in August of 2024 that showed a decreased left ventricular systolic function with an EF 40-45% and grade 1 diastolic dysfunction. During his last admission the recommendations by Cardiology when they signed off was to switch Lasix to 40 mg by mouth daily, continue rosuvastatin, continue metoprolol and add Entresto and an SGOT 2 inhibitor with recommendations for outpatient stress test and PE to further evaluate patient's symptoms. Patient is supposed to be checking daily weight, eyes nose but at this point patient has not been compliant with any of these therapies. He states the doses of Lasix that he has been borrowing from his family have been only 20 mg. As a result patient presents here again today with complaints of shortness of breath with exertion and swelling of the bilateral lower extremities. He denies any chest pain. Patient has a noted history in the EMR of alcohol abuse although patient states he quit 5 years ago. In addition patient admits to using occasional cocaine and last admits to use 1 week ago. In the emergency room workup was performed with vital signs that show a pulse of 107. It is noted that patient attempted to ambulate and dropped his sats into the mid 80s requiring 3 L of supplemental oxygen to bring his sats back up. EKG shows normal sinus rhythm with a right axis deviation and right bundle branch block. There does appear to be some ST depression in leads 3, AVF and V3. CBC and metabolic panel are unremarkable. Patient's BNP is 5810 which correlates with previous BNPs. Troponin not performed in the ER, however historically it has been elevated, suspect ischemic demand. As patient is not complaining of chest pain at this time we will forego troponin testing as it will likely elevated. Coags are normal. Chest x-ray showing left basilar atelectasis versus pneumonia and pleural effusion. There is congestive hilar areas with interstitial thickening and pulmonary edema. There is right lung base pneumonia versus atelectasis. Patient has been initiated on azithromycin, Rocephin and given 60 mg of Lasix. He is being admitted in the current setting for continued management of his acute on chronic heart failure exacerbation, right lower lobe pneumonia and chronic disparities. 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 Review of Systems Review of Systems: All systems reviewed & are unremarkable except as noted in HPI and below PMFSH Past Medical History Medical History (Updated 12/14/24 @ 21:37 by NATE Jeffrey) Noncompliance with treatment Eczema Sleep apnea Hypertension Hyperlipidemia Vitamin D deficiency Substance abuse Atrial fibrillation Congestive heart failure Surgical History Surgical History History of umbilical hernia repair robotic assisted repair incarcerated umbilical hernia measuring 4.5 cm, myofascial release x2 H/O hemorrhoidectomy History of appendectomy History of carpal tunnel release Family History Family History Mother Parkinson disease Father Alcohol abuse Social History Social History Social History: Lives with grand daughter (13 year old) 1 dog Smoking status: Never smoker Second hand tobacco smoke exposure: Yes Alcohol intake: current Drinks per week: 2 Substance use: never Substance use type: marijuana and crack/cocaine Other substance usage details: once in while, last used 2 weeks ago Do You Feel Safe in your Home?: Yes Lack of Transportation: No Lack of Food: Never True Current Housing: I Have Housing Concerned About Future Housing: No Difficulty Paying Gas/Electric Bills: No Difficulty Paying for Meds: No Currently Unemployed: No Education: High School Diploma/GED Difficulty w/ Childcare or Family Care: No Spiritual care concerns: No Meds Home Medications and Allergies Home Medications ?Medication ?Instructions ?Recorded ?Confirmed ?Type aspirin 81 mg chewable tablet 81 mg PO DAILY 08/23/24 10/20/24 History cholecalciferol (vitamin D3) 50 2,000 unit PO DAILY 08/23/24 10/20/24 History mcg (2,000 unit) capsule albuterol sulfate 90 mcg/actuation 1 inh inhalation QID PRN shortness 08/28/24 10/20/24 Rx aerosol inhaler (Ventolin HFA) of breath or wheezing #8.5 grams furosemide 40 mg tablet 40 mg PO DAILY #30 tabs 08/28/24 10/20/24 Rx metoprolol succinate 100 mg 100 mg PO QAM #60 tabs 08/28/24 10/20/24 Rx tablet,extended release 24 hr (Toprol XL) potassium chloride 20 mEq oral 20 meq PO DAILY #30 ea 08/28/24 10/20/24 Rx packet rosuvastatin 20 mg tablet (Crestor) 10 mg (1/2 x 20 mg) PO HS #30 tabs 08/28/24 10/20/24 Rx empagliflozin 10 mg tablet 10 mg PO DAILY #30 tabs 10/22/24 Rx nitroglycerin 0.4 mg sublingual 0.4 mg sublingual Q5MIN PRN Chest 10/22/24 Rx tablet (Nitrostat) Pain #30 tabs sacubitril 24 mg-valsartan 26 mg 1 tab PO Q12HR #30 tabs 10/22/24 Rx tablet (Entresto) spironolactone 25 mg tablet 12.5 mg (1/2 x 25 mg) PO DAILY #30 10/22/24 Rx tabs Allergies Allergy/AdvReac Type Severity Reaction Status Date / Time No Known Drug Allergies Allergy Other Verified 12/05/24 17:47 Vital Signs Vital Signs - 24 hr 12/14/24 19:21 12/14/24 20:04 12/14/24 21:00 Temperature 97.8 F Pulse Rate 107 H 103 H Respiratory Rate 21 H 16 Blood Pressure 128/88 138/99 H Pulse Oximetry 98 94 83 L Oxygen Delivery Room Air Room Air Oxygen Flow Rate 12/14/24 21:02 Temperature Pulse Rate Respiratory Rate Blood Pressure Pulse Oximetry 98 Oxygen Delivery Nasal Cannula Oxygen Flow Rate 3 Exam Const: General: comfortable and no acute distress Other: Standing at the bedside urinating without any difficulty. HENMT: Face/Nose/Sinus: Normal nares present Mouth: Yes moist mucous membranes Eyes: General: appearance normal, both eyes and all related structures Sclera: sclerae normal Pupils: Equal, round and reactive pupils present EOM: EOMs intact bilaterally Neck: Neck: supple and no JVD Carotids: no bruits Lymphatic: lymphadenopathy not noted Resp: Effort & Inspection: normal respiratory effort Auscultation: crackles (Bilateral bases) and rales (Right lower lobe) Cardio: Rate: tachycardic Rhythm: regular rhythm Heart sounds: no gallops, no murmurs and no rubs GI: Inspection: non-distended GI Palp: Yes Soft to palpation and No Tenderness to palpation present (GI) Auscultation: normal bowel sounds Skin: General skin exam: normal color, no rashes or lesions noted and no er ythema Wounds: no wounds Neuro: General: gait normal Speech: normal speech Motor exam (neuro): 5/5 motor strength present throughout, Normal motor muscle tone present throughout, strength normal and abnormal movements noted Sensory Exam: normal sensation Extrem: General: normal exam except as noted, edema (2+ to 3+ bilateral lower extremity from the level of the knees down) and pedal edema Psych: Mental Status: mental status grossly normal Affect: normal affect H&P: Results Labs Labs: Short CBC 12/14/24 Range/Units 19:34 WBC 10.2 H (4.5-10.0) K/mm3 Hgb 12.2 L (14.0-18.0) g/dL Hct 41.1 L (42.0-52.0) % Plt Count 242 (150-375) k/mm3 BMP 12/14/24 19:34 Sodium 141 Potassium 4.0 Chloride 98 Carbon Dioxide 36 H BUN 19 Creatinine 0.79 Glucose 118 H Calcium 8.6 Liver Function 12/14/24 Range/Units 19:34 Total Bilirubin 0.5 (0.2-1.3) mg/dL AST 30 (17-59) U/L ALT 15 (6-50) U/L Alkaline Phosphatase 82 (38-126) U/L Albumin 3.7 (3.5-5.1) g/dL Assessment and Plan Assessment and plan (1) Acute exacerbation of CHF (congestive heart failure): Qualifiers: Heart failure type: combined systolic and diastolic Qualified Code(s): I50.43 - Acute on chronic combined systolic (congestive) and diastolic (congestive) heart failure Code(s): I50.9 - Heart failure, unspecified Status: Acute Assessment and Plan: * As evidenced by Physical exam with pitting edema, patient's admitting not taking his diuretics or heart failure medications for at least a month and a half, new oxygen requirement, elevated BNP and chest x-ray demonstrating pul monary edema and effusion * Continue diuresis with Lasix 40 mg IV push b.i.d. * Accurate I&O * Daily weight * Consult cardiology * Restart Entresto as per cardiology's previous recommendations from October of 2024. * Restart empagliflozin also as per cardiology's previous recommendations from October 2024 * Continue Crestor, metoprolol and p.o. potassium. As we are awaiting verification and confirmation in patient's medications and dosages, will restart medications from cardiology's recommendation dosages from October of 2024 at the time of discharge. * Trend and monitor labs and vital signs for affect on renal function. * Telemetry * Supplemental oxygen for support (2) Hyperlipidemia: Code(s): E78.5 - Hyperlipidemia, unspecified Status: Chronic Assessment and Plan: * Continue statin therapy with Crestor 10 mg p.o. HS (3) Hypertension: Qualifiers: Hypertension type: primary hypertension Qualified Code(s): I10 - Essential (primary) hypertension Code(s): I10 - Essential (primary) hypertension Status: Chronic Assessment and Plan: * Continue home medications * Trend and monitor and adjust treatment as needed. (4) Substance abuse: Code(s): F19.10 - Other psychoactive substance abuse, uncomplicated Status: Chronic Assessment and Plan: * Patient admits to using cocaine by snorting 1 week ago. * Observe for any signs or symptoms of withdrawal. (5) Pneumonia: Qualifiers: Laterality: bilateral Lung location: lower lobe of lung Pneumonia type: due to unspecified organism Qualified Code(s): J18.9 - Pneumonia, unspecified organism Code(s): J18.9 - Pneumonia, unspecified organism Status: Acute Assessment and Plan: * As evidenced by chest x-ray showing right lung base pneumonia. Patient has been initiated on Rocephin and azithromycin which will continue * Q.6 hours DuoNebs * Q.4 hours p.r.n. albuterol nebs * Incentive spirometry (6) Noncompliance with treatment: Code(s): Z91.199 - Patient's noncompliance with other medical treatment and regimen due to unspecified reason Status: Acute Assessment and Plan: * Currently acute, however suspect chronic overall. * Counseled for need of compliance to avoid further health disparities and permanent damage to body systems. Quality VTE Prophylaxis VTE prophylaxis: pharmacologic ordered Hospitalist MIPS Advance Care Plan I have confirmed that the patient's Advanced Care Plan is present, code status is documented, or surrogate decision maker is listed in patient medical record.: Yes Medication Reconciliation I have utilized all available resources to obtain, update and review the patients current medications (includes all prescriptions, OTC, herbals, cannabis, and nutritional supplements).: Yes
[2024-12-14] MEDS: AZITHROMYCIN 500 MG/NS 250 ML 500 MG/250 ML BAG 250 MG IVPB (21:54)
--- NOTE | 2024-12-14 23:42 | ADMGEN ---
This patient, Js Contreras, was admitted to [facility] Surg Room 331-02. Patient/family oriented to hospital policies and general routines including ID bracelet, bed and alarms, visiting hours, pain management, procedures, bathroom and other care routines, personal items, smoking policy, room service/diet, and visiting hours. Information on how to activate the Rapid Response Team has been discussed. Patient/Family are encouraged to report perceived risks to care and to ask questions if they do not understand what they are told or what they should do.
[2024-12-15] VITALS (20 sets, daily range): BP systolic 93–123; BP diastolic 61–93; PULSE 74–101; RESP 17–20; TEMP 36.4–36.7; O2SAT 92–97
[2024-12-15] MEDS: Please enter patient height and weight for medication dosing 1 EACH XX (00:38)
[2024-12-15] MEDS: IPRATROPIUM 0.5 MG/ALBUTEROL SULFATE 2.5 MG AMPUL.NEB 3 ML INHALATION ×2 (02:34→20:20)
[2024-12-15 06:59] LABS: Hematocrit 40.9 % (42.0-52.0); Hemoglobin 12.0 g/dL (14.0-18.0); Immature Granulocyte Percent A 0.3 % (0-0.5); Lymphocytes Absolute Auto 2.76 K/mm3 (0.9-3.2); Mean Corpuscular HGB Conc 29.3 g/dl (32-36); Mean Corpuscular Hemoglobin 25.1 pg (26-34); Mean Corpuscular Volume 85.6 fl (80-100); Nucleated Red Blood Cells Absolute Auto 0.000 K/mm3 (0.0-0.012); Nucleated Red Blood Cells Perc 0.0 % (0.0-0.2); Platelet Count Result 236 k/mm3 (150-375); Red Blood Count 4.78 M/mm3 (4.6-6.20); White Blood Count 8.8 K/mm3 (4.5-10.0)
[2024-12-15 07:03] LABS: Alanine Aminotransferase 14 U/L (6-50); Albumin Level 3.5 g/dL (3.5-5.1); Alkaline Phosphatase 78 U/L (38-126); Anion Gap 5 mmol/L (4-12); Aspartate Amino Transferase 29 U/L (17-59); Bilirubin,Total 0.3 mg/dL (0.2-1.3); Blood Urea Nitrogen 18 mg/dL (9-20); Calcium 8.4 mg/dL (8.4-10.2); Carbon Dioxide 36 mmol/L (22-30); Chloride 101 mmol/L (98-107); Estimated CRCL calculation 66 ml/min; Estimated Glomerular Filt Rate > 60; Glucose 117 mg/dL (65-110); Magnesium 2.1 mg/dL (1.6-2.3); Potassium 4.0 mmol/L (3.4-5.0); Sodium 142 mmol/L (137-145); Total Protein 7.0 g/dL (6.3-8.2)
[2024-12-15 07:49] LABS: Hypochromasia 1+; Schistocytes None Seen
--- NOTE | 2024-12-15 08:03 | PM.IMPN ---
Progress Note: A&P Assessment and Plan (1) Acute exacerbation of CHF (congestive heart failure): Qualifiers: Heart failure type: combined systolic and diastolic Qualified Code(s): I50.43 - Acute on chronic combined systolic (congestive) and diastolic (congestive) heart failure Code(s): I50.9 - Heart failure, unspecified Status: Acute Assessment and Plan: As evidenced by Physical exam with pitting edema, patient's admitting not taking his diuretics or heart failure medications for at least a month and a half, new oxygen requirement, elevated BNP and chest x-ray demonstrating pulmonary edema and effusion Continue diuresis with Lasix 40 mg IV push b.i.d. Accurate I&O, daily weights Restart Entresto as per cardiology's previous recommendations from October of 2024. Restart empagliflozin also as per cardiology's previous recommendations from October 2024 Continue Crestor, metoprolol and p.o. potassium. As we are awaiting verification and confirmation in patient's medications and dosages, will restart medications from cardiology's recommendation dosages from October of 2024 at the time of discharge. Trend and monitor labs and vital signs for affect on renal function. Telemetry Supplemental oxygen for support Consult cardiology 12/15: Physical exam seems of improved, minimal pedal edema. Still some crackles at bilateral bases and rales in the right lower lobe, denies any shortness of breath. (2) Hyperlipidemia: Code(s): E78.5 - Hyperlipidemia, unspecified Status: Chronic Assessment and Plan: Continue statin therapy with Crestor 10 mg p.o. HS (3) Hypertension: Qualifiers: Hypertension type: primary hypertension Qualified Code(s): I10 - Essential (primary) hypertension Code(s): I10 - Essential (primary) hypertension Status: Chronic Assessment and Plan: Continue home medications Trend and monitor and adjust treatment as needed. (4) Substance abuse: Code(s): F19.10 - Other psychoactive substance abuse, uncomplicated Status: Chronic Assessment and Plan: Patient admits to using cocaine by snorting 1 week ago. Observe for any signs or symptoms of withdrawal. (5) Pneumonia: Qualifiers: Laterality: bilateral Lung location: lower lobe of lung Pneumonia type: due to unspecified organism Qualified Code(s): J18.9 - Pneumonia, unspecified organism Code(s): J18.9 - Pneumonia, unspecified organism Status: Acute Assessment and Plan: As evidenced by chest x-ray showing right lung base pneumonia. Rocephin and azithromycin Q.6 hours DuoNebs, Q.4 hours p.r.n. albuterol nebs Incentive spirometry (6) Noncompliance with treatment: Code(s): Z91.199 - Patient's noncompliance with other medical treatment and regimen due to unspecified reason Status: Acute Assessment and Plan: Currently acute, however suspect chronic overall. Counseled for need of compliance to avoid further health disparities and permanent damage to body systems. Subjective Date/time seen: 12/15/24 08:03 Interval history: 74-year-old male patient with past medical history of HF, EMR documented AFib, substance abuse, HTN, HLP, sleep apnea, vit-D deficiency and alcoholic cirrhosis of liver with complaints of having edema to the bilateral lower extremities and dyspnea on exertion for the past couple of weeks. 12/15/2024 Patient sitting comfortably in bed at time of examination. Denies any chest pain, shortness of breath, nausea/vomiting, or abdominal pain. Lower extremity swelling seems to have improved today, minimal pedal edema exam. Patient denies any shortness of breath, but states that yesterday he was more short of breath than his baseline. Cardiology consulted, pending recommendations at this time. Blood cultures pending. Chest x-ray indicative of pulmonary edema, likely secondary to CHF exacerbation. Review of Systems Review of Systems: All systems reviewed & are unremarkable except as noted in HPI and below Exam Const: General: comfortable and no acute distress Other: Standing at the bedside urinating without any difficulty. HENMT: Face/Nose/Sinus: Normal nares present Mouth: Yes moist mucous membranes Eyes: General: appearance normal, both eyes and all related structures Sclera: sclerae normal Pupils: Equal, round and reactive pupils present EOM: EOMs intact bilaterally Neck: Neck: supple and no JVD Carotids: no bruits Lymphatic: lymphadenopathy not noted Resp: Effort & Inspection: normal respiratory effort Auscultation: crackles (Bilateral bases) and rales (Right lower lobe) Cardio: Rate: regular rate Rhythm: regular rhythm Heart sounds: no gallops, no murmurs and no rubs GI: Inspection: non-distended Auscultation: normal bowel sounds Skin: General skin exam: normal color, no rashes or lesions noted and no erythema Wounds: no wounds Neuro: General: gait normal Cranial nerves: Yes Equal, round and reactive pupils present Speech: normal speech Motor exam (neuro): 5/5 motor strength present throughout, Normal motor muscle tone present throughout, strength normal and abnormal movements noted Sensory Exam: normal sensation Extrem: General: normal exam except as noted and pedal edema Psych: Mental Status: mental status grossly normal Affect: normal affect Objective Data Vital Signs Vital Signs: Vital Signs - 24 hr 12/14/24 19:21 12/14/24 20:04 12/14/24 21:00 Temperature 97.8 F Pulse Rate 107 H 103 H Respiratory Rate 21 H 16 Blood Pressure 128/88 138/99 H Pulse Oximetry 98 94 83 L Oxygen Delivery Room Air Room Air Oxygen Flow Rate 12/14/24 21:02 12/14/24 21:30 12/14/24 23:25 Temperature 98 F Pulse Rate 101 H 95 Respiratory Rate 27 H 22 H Blood Pressure 123/90 106/67 Pulse Oximetry 98 100 100 Oxygen Delivery Nasal Cannula Oxygen Flow Rate 3 12/14/24 23:35 12/14/24 23:49 12/15/24 00:00 Temperature 97.5 F L Pulse Rate 97 97 Respiratory Rate 18 Blood Pressure 122/83 Pulse Oximetry 96 96 Oxygen Delivery Nasal Cannula Oxygen Flow Rate 3 12/15/24 02:36 12/15/24 02:36 12/15/24 06:00 Temperature 97.6 F Pulse Rate 97 92 Respiratory Rate 17 20 Blood Pressure 119/83 Pulse Oximetry 94 96 Oxygen Delivery Nasal Cannula Oxygen Flow Rate 3 Intake/Output Intake/Output: Intake & Output 12/12/24 12/13/24 12/14/24 12/15/24 23:59 23:59 23:59 23:59 Intake Total 300 400 Output Total 3200 Balance -2900 400 Meds/Results Medications: Active Medications Generic Name Dose Route Start Last Admin Trade Name Freq PRN Reason Stop Dose Admin Acetaminophen 650 mg 12/14/24 20:56 Acetaminophen 325 Mg Tablet PO Q4H PRN Mild Pain (1-3) or Fever Albuterol 2.5 mg 12/14/24 21:44 Albuterol Sulfate Neb 2.5 Mg/3 Ml Inh INHALATION Q4HRT PRN Shortness Of Breath Or Wheezing Albuterol/Ipratropium 3 ml 12/15/24 02:00 12/15/24 02:34 Ipratropium 0.5 Mg/Albuterol Sulfate 2.5 Mg Ampul.Neb 3 Ml INHALATION 3 ml Q6HRT [facility] Administration Empagliflozin 10 mg 12/15/24 09:00 Empagliflozin 10 Mg Tablet PO DAILY [facility] Enoxaparin Sodium 40 mg 12/15/24 09:00 Enoxaparin 40 Mg/0.4 Ml Syringe SUB-Q DAILY [facility] Furosemide 40 mg 12/15/24 09:00 Furosemide Inj 40 Mg/4 Ml Vial IV PUSH Q12HR [facility] Azithromycin 500 mg in 250 mls @ 250 mls/hr 12/15/24 22:00 Zithromax IVPB Q24H [facility] Ceftriaxone Sodium 1 gm in 50 mls @ 100 mls/hr 12/15/24 21:00 Rocephin 1 Gm/Ns 50 Ml IVPB Q24H [facility] Melatonin 5 mg 12/14/24 21:44 Melatonin 5 Mg Tablet PO HS PRN Sleep Metoprolol Succinate 100 mg 12/15/24 09:00 Metoprolol Succinate Ext Rel 100 Mg Tabcr PO QAM [facility] Potassium Chloride 20 meq 12/15/24 09:00 Potassium Chloride 20 Meq Er Tablet PO DAILY [facility] Rosuvastatin Calcium 10 mg 12/15/24 09:00 Rosuvastatin 10 Mg Tablet PO QAM [facility] Sacubitril/Valsartan 1 tab 12/15/24 09:00 Sacubitril/Valsartan 24-26 Mg Tablet PO Q12HR [facility] Radiology Results: ITS Impressions Chest X-Ray 12/14/24 20:28 IMPRESSION: Left basilar atelectasis versus pneumonia with pleural effusion. Congestive ezequiel with interstitial thickening. Pulmonary edema. Clinical correlation advised. Minimal atelectasis versus pneumonia in the right lung base medially. Labs Labs: Laboratory Results - last 24 hr 12/14/24 12/15/24 19:34 06:41 WBC 10.2 H 8.8 RBC 4.85 4.78 Hgb 12.2 L 12.0 L Hct 41.1 L 40.9 L MCV 84.7 85.6 MCH 25.2 L 25.1 L MCHC 29.7 L 29.3 L RDW 18.0 H 18.0 H Plt Count 242 236 MPV 9.3 9.8 Immature Gran % (Auto) 0.2 0.3 Neut % (Auto) 58.6 51.7 Lymph % (Auto) 28.2 31.2 [place] % (Auto) 10.7 H 13.0 H Eos % (Auto) 1.4 2.9 Baso % (Auto) 0.9 0.9 Lymph # (Auto) 2.87 2.76 [place] # (Auto) 1.1 H 1.2 H Eos # (Auto) 0.1 0.3 Baso # (Auto) 0.1 0.1 Abs Immat Gran (auto) 0.02 0.03 Absolute Neuts (auto) 6.0 4.6 Absolute Nucleated RBC 0.000 0.000 Band Neutrophils % 0 Not Reportable Nucleated RBC % 0.0 0.0 Platelet Estimate Adequate Adequate Hypochromasia 1+ 1+ Anisocytosis 2+ Schistocytes None seen None seen PT 14.9 H INR 1.2 APTT 32.2 Sodium 141 142 Potassium 4.0 4.0 Chloride 98 101 Carbon Dioxide 36 H 36 H Anion Gap 7 5 BUN 19 18 Creatinine 0.79 0.76 Estim Creat Clear Calc Not Reportable 66 Estimated GFR > 60 > 60 Glucose 118 H 117 H Calcium 8.6 8.4 Magnesium 2.1 Total Bilirubin 0.5 0.3 AST 30 29 ALT 15 14 Alkaline Phosphatase 82 78 NT-Pro-B Natriuret Pep 5810 H Total Protein 7.3 7.0 Albumin 3.7 3.5 Quality VTE Prophylaxis VTE prophylaxis: pharmacologic ordered
[2024-12-15] MEDS: POTASSIUM CHLORIDE 20 MEQ ER TABLET PO (08:36)
[2024-12-15] MEDS: SACUBITRIL/VALSARTAN 24-26 MG TABLET 1 TAB PO ×2 (08:36→21:05)
[2024-12-15] MEDS: EMPAGLIFLOZIN 10 MG TABLET PO (08:36)
[2024-12-15] MEDS: ROSUVASTATIN 10 MG TABLET PO (08:36)
[2024-12-15] MEDS: FUROSEMIDE INJ 40 MG/4 ML VIAL IV PUSH ×2 (08:37→21:06)
[2024-12-15] MEDS: ENOXAPARIN 40 MG/0.4 ML SYRINGE SUB-Q (08:37)
[2024-12-15] MEDS: METOPROLOL SUCCINATE EXT REL 100 MG TABCR PO (08:37)
--- NOTE | 2024-12-15 11:56 | P.CONCA_ITS ---
Assessment and Plan Assessment and plan (1) Acute exacerbation of CHF (congestive heart failure): Qualifiers: Heart failure type: combined systolic and diastolic Qualified Code(s): I50.43 - Acute on chronic combined systolic (congestive) and diastolic (congestive) heart failure Code(s): I50.9 - Heart failure, unspecified Status: Acute Assessment and Plan: Acute on chronic combined systolic and diastolic heart failure secondary to medication noncompliance. * Improving with IV diuresis. Continue for now. * Daily weights * Strict I&O * CHF counseling * JAX moore * Continue metoprolol, jardiance, entresto * Anticipate discharge in the next 24-48 hours Cardiology will follow on an as needed basis. Please call with questions. History of Present Illness History of Present Illness Consult date/time: 12/15/24 11:56 Reason For Visit: CHF exacerbation, Possible pneumonia on x-ray Narrative: Js Contreras is a 74 year old male with a reported history of alcoholic cirrhosis, chronic combined systolic and diastolic heart failure, hypertension, hyperlipidemia, right bundle branch block, reported AFIB, cannabis use, histoplasmosis who presented to [facility] with lower extremity edema. He admits he was not taking his medications consistently at home. He ran out of furosemide so was taking furosemide prescribed to a family member. Also not complaint with his Entresto. He denies any other symptoms including chest pain and palpitations. Review of Systems 2 Review of Systems: All systems reviewed & are unremarkable except as noted in HPI and below PMFSH Past Medical History Medical History Noncompliance with treatment Eczema Sleep apnea Hypertension Hyperlipidemia Vitamin D deficiency Substance abuse Atrial fibrillation Congestive heart failure Surgical History Surgical History History of umbilical hernia repair robotic assisted repair incarcerated umbilical hernia measuring 4.5 cm, myofascial release x2 H/O hemorrhoidectomy History of appendectomy History of carpal tunnel release Family History Family History Mother Parkinson disease Father Alcohol abuse Social History Social History Social History: Lives with grand daughter (13 year old) 1 dog Smoking status: Never smoker Second hand tobacco smoke exposure: Yes Alcohol intake: former Drinks per week: 2 Substance use: current Substance use type: marijuana and crack/cocaine Other substance usage details: once in while, last used 2 weeks ago Do You Feel Safe in your Home?: Yes Lack of Transportation: No Lack of Food: Never True Current Housing: I Have Housing Concerned About Future Housing: No Difficulty Paying Gas/Electric Bills: No Difficulty Paying for Meds: No Currently Unemployed: No Education: High School Diploma/GED Difficulty w/ Childcare or Family Care: No Spiritual care concerns: No Meds Home Medications and Allergies Home Medications ?Medication ?Instructions ?Recorded ?Confirmed ?Type aspirin 81 mg chewable tablet 81 mg PO DAILY 08/23/24 12/15/24 History cholecalciferol (vitamin D3) 50 2,000 unit PO DAILY 08/23/24 12/15/24 History mcg (2,000 unit) capsule furosemide 40 mg tablet 40 mg PO DAILY #30 tabs 08/28/24 12/15/24 Rx metoprolol succinate 100 mg 100 mg PO QAM #60 tabs 08/28/24 12/15/24 Rx tablet,extended release 24 hr (Toprol XL) potassium chloride 20 mEq oral 20 meq PO DAILY #30 ea 08/28/24 12/15/24 Rx packet rosuvastatin 20 mg tablet (Crestor) 10 mg (1/2 x 20 mg) PO HS #30 tabs 08/28/24 12/15/24 Rx empagliflozin 10 mg tablet 10 mg PO DAILY #30 tabs 10/22/24 12/15/24 Rx sacubitril 24 mg-valsartan 26 mg 1 tab PO Q12HR #30 tabs 10/22/24 12/15/24 Rx tablet (Entresto) Allergies Allergy/AdvReac Type Severity Reaction Status Date / Time No Known Drug Allergies Allergy Other Verified 12/05/24 17:47 Vital Signs Vital Signs - 24 hr 12/14/24 19:21 12/14/24 20:04 12/14/24 21:00 Temperature 36.6 C Pulse Rate 107 H 103 H Respiratory Rate 21 H 16 Blood Pressure 128/88 138/99 H Pulse Oximetry 98 94 83 L Oxygen Delivery Room Air Room Air Oxygen Flow Rate 12/14/24 21:02 12/14/24 21:30 12/14/24 23:25 Temperature 36.6 C Pulse Rate 101 H 95 Respiratory Rate 27 H 22 H Blood Pressure 123/90 106/67 Pulse Oximetry 98 100 100 Oxygen Delivery Nasal Cannula Oxygen Flow Rate 3 12/14/24 23:35 12/14/24 23:49 12/15/24 00:00 Temperature 36.4 C L Pulse Rate 97 97 Respiratory Rate 18 Blood Pressure 122/83 Pulse Oximetry 96 96 Oxygen Delivery Nasal Cannula Oxygen Flow Rate 3 12/15/24 02:36 12/15/24 02:36 12/15/24 06:00 Temperature 36.4 C Pulse Rate 97 92 Respiratory Rate 17 20 Blood Pressure 119/83 Pulse Oximetry 94 96 Oxygen Delivery Nasal Cannula Oxygen Flow Rate 3 12/15/24 08:37 12/15/24 08:40 12/15/24 08:40 Temperature Pulse Rate 94 101 H Respiratory Rate Blood Pressure Pulse Oximetry 92 Oxygen Delivery Room Air Oxygen Flow Rate 12/15/24 08:44 Temperature Pulse Rate 94 Respiratory Rate Blood Pressure 123/93 H Pulse Oximetry 92 Oxygen Delivery Oxygen Flow Rate Exam 2 Const: General: comfortable, no acute distress, alert and awake O rientation/consciousness: patient oriented x3 HENMT: Head: normal to inspection Eyes: General: appearance normal, both eyes and all related structures P upils: Equal, round and reactive pupils present Neck: Neck: normal visual inspection, supple and no JVD Carotids: normal carotid upstroke Resp: Effort & Inspection: normal respiratory effort Auscultation: rales Cardio: Rate: regular rate Rhythm: regular rhythm Heart sounds: S1 normal heart sound present, S2 normal heart sound present and no murmurs GI: Auscultation: normal bowel sounds Skin: General skin exam: normal color Neuro: General: patient oriented x3 Cranial nerves: Yes Equal, round and reactive pupils present Extrem: General: edema and pedal edema Psych: Appearance: grossly normal Mental Status: mental status grossly normal Results Labs and Meds 12/15/24 06:41 12/15/24 06:41 Lab results: Cardiac Enzymes 12/14/24 12/15/24 Range/Units 19:34 06:41 AST 30 29 (17-59) U/L Coagulation 12/14/24 Range/Units 19:34 PT 14.9 H (11.1-14.7) Seconds APTT 32.2 (22.3-36.8) Seconds CBC 12/14/24 12/15/24 Range/Units 19:34 06:41 WBC 10.2 H 8.8 (4.5-10.0) K/mm3 RBC 4.85 4.78 (4.6-6.20) M/mm3 Hgb 12.2 L 12.0 L (14.0-18.0) g/dL Hct 41.1 L 40.9 L (42.0-52.0) % Plt Count 242 236 (150-375) k/mm3 Lymph # (Auto) 2.87 2.76 (0.9-3.2) K/mm3 [place] # (Auto) 1.1 H 1.2 H (0.1-0.6) K/mm3 Eos # (Auto) 0.1 0.3 (0-0.3) K/mm3 Baso # (Auto) 0.1 0.1 (0.0-0.1) K/mm3 Comprehensive Metabolic Panel 12/14/24 12/15/24 Range/Units 19:34 06:41 Sodium 141 142 (137-145) mmol/L Potassium 4.0 4.0 (3.4-5.0) mmol/L Chloride 98 101 (98-107) mmol/L Carbon Dioxide 36 H 36 H (22-30) mmol/L BUN 19 18 (9-20) mg/dL Creatinine 0.79 0.76 (0.7-1.3) mg/dL Glucose 118 H 117 H (65-110) mg/dL Calcium 8.6 8.4 (8.4-10.2) mg/dL AST 30 29 (17-59) U/L ALT 15 14 (6-50) U/L Alkaline Phosphatase 82 78 (38-126) U/L Total Protein 7.3 7.0 (6.3-8.2) g/dL Albumin 3.7 3.5 (3.5-5.1) g/dL Intake and Output 12/14/24 12/15/24 12/15/24 23:59 07:59 15:59 Intake Total 300 400 240 Output Total 3200 Balance -2900 400 240 Intake: IV 300 Azithromycin 500 mg/Ns 250 ml 250 500 mg In 250 ml @ 250 mls/hr IVPB ONCE ONE Rx#:[id number] cefTRIAXone 1 GM/NS 50 ML 1 gm 50 In 50 ml @ 100 mls/hr IVPB ONCE STA Rx#:[id number] Oral 400 240 Output: Urine 3200 Other: # Unmeasured Voids 1 1 # Incontinent Voids 1 Patient Weight 12/15/24 23:59 Weight 82.3 kg
[2024-12-15] MEDS: AZITHROMYCIN 500 MG/NS 250 ML 500 MG/250 ML BAG 250 MG IVPB (21:53)
--- NOTE | 2024-12-15 23:17 | ECG_ITS ---
Test Date: 2024-12-15 23:35:15 Measurements Intervals [place] Rate: 91 P: 215 UT: 170 QRS: 141 QRSD: 161 T: -48 QT: 412 QTc: 509 Interpretive Statements Atrial flutter RIGHT BUNDLE BRANCH BLOCK [120+ ms QRS DURATION, UPRIGHT V1, 40+ ms S IN I/aVL/V4/V5/V6] LEFT POSTERIOR FASCICULAR BLOCK [QRS AXIS > 109, INFERIOR Q] Compared to ECG 12/14/2024 19:41:20 no change Electronically Signed On 12-16-2024 12:50:12 CDT by Ruben Maldonado M.D.
--- NOTE | 2024-12-15 23:30 | PM.CCN ---
Critical Care Event Note Summary Code activated: No Narrative: call by Nursing for patient waking up hypoxic history of CHF seen Earl veliz, pneumonia on antibiotics, patient's diaphoretic, non-rebreather 15 L tachypneic CBC, CMP, Mag phos, chest x-ray, ABG,Chest x-ray EKG CTA for possible PE chest x-ray with some pulmonary edema however unable to diurese at this time will give albumin and midodrine Hand off given to Lidia ESPINOZA Critical Care Time Critical Care Time: Yes Total Critical Care Time: 45 Due to a high probability of clinically significant, life threatening deterioration, the patient required my highest level of preparedness to intervene emergently and I personally spent this critical care time directly and personally managing the patient. This critical care time included obtaining a history; examining the patient; pulse oximetry; ordering and review of studies; arranging urgent treatment with development of a management plan; evaluation of patient's response to treatment; frequent reassessment; and discussions with other providers. It was exclusive of separately billable procedures and treating other patients and teaching time. Please see Assessment and Plan section and the rest of the note for further information on patient assessment and treatment. This case had a high probability of a clinically significant, sudden, or life threatening deterioration of this patient's condition which required my full and direct attention, intervention and personal management. Critical care time: 30 - 74 mins
[2024-12-15 23:33] LABS: Alveolar/Arterial O2 Gradient 376.2 mmHg; Fractional Inspired Oxygen 100 %; HCO3 ABG 28.2 mEq/l (22.0-26.0); Oxygen Content ABG 19.7 %vol (16.0-22.0); Oxygen Saturation ABG 99.6 % (95.0-100.0); PCO2 ABG 50.2 mmHg (35.0-45.0); PO2 ABG 286.6 mmHg (80.0-100.0); PO2 FiO2 Ratio Arterial Blood 2.87 %
[2024-12-15 23:35] LABS: Hematocrit 44.1 % (42.0-52.0); Hemoglobin 12.7 g/dL (14.0-18.0); Mean Corpuscular HGB Conc 28.8 g/dl (32-36); Mean Corpuscular Hemoglobin 25.0 pg (26-34); Mean Corpuscular Volume 86.8 fl (80-100); Platelet Count Result 254 k/mm3 (150-375); Red Blood Count 5.08 M/mm3 (4.6-6.20); White Blood Count 11.8 K/mm3 (4.5-10.0)
[2024-12-15 23:39] LABS: Liters per Minute 15.0 LPM; Modified Allen's Test Pass; Site Drawn RIGHT RADIAL
[2024-12-15 23:54] LABS: Alanine Aminotransferase 19 U/L (6-50); Albumin Level 4.0 g/dL (3.5-5.1); Alkaline Phosphatase 85 U/L (38-126); Anion Gap 14 mmol/L (4-12); Aspartate Amino Transferase 35 U/L (17-59); Bilirubin,Total 0.4 mg/dL (0.2-1.3); Blood Urea Nitrogen 21 mg/dL (9-20); Calcium 8.4 mg/dL (8.4-10.2); Carbon Dioxide 29 mmol/L (22-30); Chloride 97 mmol/L (98-107); Estimated CRCL calculation 57 ml/min; Estimated Glomerular Filt Rate > 60; Glucose 159 mg/dL (65-110); Magnesium 2.2 mg/dL (1.6-2.3); Potassium 4.0 mmol/L (3.4-5.0); Sodium 140 mmol/L (137-145); Total Protein 7.6 g/dL (6.3-8.2)
[2024-12-16] VITALS (20 sets, daily range): BP systolic 84–109; BP diastolic 45–76; PULSE 58–131; RESP 18–20; TEMP 36.2–36.4; O2SAT 91–97
[2024-12-16 00:03] LABS: Troponin I 0.024 ng/mL (0.000-0.034)
[2024-12-16] MEDS: MIDODRINE HCL 10 MG TABLET PO ×2 (00:44→22:02)
[2024-12-16] MEDS: ALBUMIN HUMAN 25% 25 GM/100 ML 100 ML IVPB ×2 (00:45→21:50)
[2024-12-16] MEDS: IPRATROPIUM 0.5 MG/ALBUTEROL SULFATE 2.5 MG AMPUL.NEB 3 ML INHALATION ×4 (01:36→19:45)
--- NOTE | 2024-12-16 05:09 | PC.NURSE ---
Padmini Tee notified patient had run of seven V-Tach. Patient was sleeping, without distress. No new orders given. Will continue to monitor progress. Call light within reach, bed in lowest position and bed alarm set for fall precaution.
--- NOTE | 2024-12-16 06:06 | PC.NURSE ---
Padmini Tee notified patient had c/o SOB, could not breath even on 3L NC baseline, saturation ranged from 75%-83% with dizziness. Patient was hypotension 89/66, pulse 98 with Accu-check reading 159. Nursing interventions were not successful. Padmini Tee went to patient room assess. New orders were given to establish change in condition. Call light within reach, bed in lowest position with fall precaution set. Will continue to monitor progress.
--- NOTE | 2024-12-16 07:42 | P.PNIM_ITS ---
Progress Note: A&P Assessment and Plan (1) Acute exacerbation of CHF (congestive heart failure): Qualifiers: Heart failure type: combined systolic and diastolic Qualified Code(s): I50.43 - Acute on chronic combined systolic (congestive) and diastolic (congestive) heart failure Code(s): I50.9 - Heart failure, unspecified Status: Acute Assessment and Plan: * As evidenced by Physical exam with pitting edema, patient's admitting not taking his diuretics or heart failure medications for at least a month and a half, new oxygen requirement, elevated BNP and chest x-ray demonstrating pulmonary edema and effusion * Continue diuresis with Lasix 40 mg IV push b.i.d. * Accurate I&O, daily weights * Restart Entresto as per cardiology's previous recommendations from October of 2024. * Restart empagliflozin also as per cardiology's previous recommendations from October 2024 * Continue Crestor, metoprolol and p.o. potassium. As we are awaiting verification and confirmation in patient's medications and dosages, will restart medications from cardiology's recommendation dosages from October of 2024 at the time of discharge. * Trend and monitor labs and vital signs for affect on renal function. * Supplemental oxygen for support * Consult cardiology * Continue IV diuresis, daily weights, I/Os * JAX hose * continue Metoprolol, Jardiance, Entresto * 12/16: Physical exam seems of improved, minimal pedal edema. Still some crackles at bilateral bases and rales in the right lower lobe, denies any shortness of breath. (2) Pneumonia: Qualifiers: Laterality: bilateral Lung location: lower lobe of lung Pneumonia type: due to unspecified organism Qualified Code(s): J18.9 - Pneumonia, unspecified organism Code(s): J18.9 - Pneumonia, unspecified organism Status: Acute Assessment and Plan: * As evidenced by chest x-ray showing right lung base pneumonia. * Rocephin and azithromycin * Q.6 hours DuoNebs, Q.4 hours p.r.n. albuterol nebs * Incentive spirometry * No changes, continue Antibiotics (3) Hyperlipidemia: Code(s): E78.5 - Hyperlipidemia, unspecified Status: Chronic Assessment and Plan: * Continue statin therapy with Crestor 10 mg p.o. HS (4) Hypertension: Qualifiers: Hypertension type: primary hypertension Qualified Code(s): I10 - Essential (primary) hypertension Code(s): I10 - Essential (primary) hypertension Status: Chronic Assessment and Plan: * Continue home medications * Trend and monitor and adjust treatment as needed. (5) Substance abuse: Code(s): F19.10 - Other psychoactive substance abuse, uncomplicated Status: Chronic Assessment and Plan: * Patient admits to using cocaine by snorting 1 week ago. * Observe for any signs or symptoms of withdrawal. (6) Noncompliance with treatment: Code(s): Z91.199 - Patient's noncompliance with other medical treatment and regimen due to unspecified reason Status: Acute Assessment and Plan: * Currently acute, however suspect chronic overall. * Counseled for need of compliance to avoid further health disparities and permanent damage to body systems. Subjective Date/time seen: 12/16/24 07:42 Interval history: 74-year-old male patient with past medical history of HF, EMR documented AFib, substance abuse, HTN, HLP, sleep apnea, vit-D deficiency and alcoholic cirrhosis of liver with complaints of having edema to the bilateral lower extremities and dyspnea on exertion for the past couple of weeks. 12/16/2024 Patient sitting comfortably in bed at time of examination. Rapid response called last night for sudden diaphoresis and dyspnea. D-dimer 3.15, CTA ordered and pending. Lactic acid initially elevated ,4.4, but subsequently decreased to 1.4. Trop (-). Repeat BCs pending. EKG sinus, rbbb (seen previously on 12/14). Pt seen in am, denies any chest pain, SOB, n/v, or abdominal pain. States he just felt very dyspneic and sweaty last night, but feels fine right now. Will continue to monitor CTA/blood work. Review of Systems Review of Systems: All systems reviewed & are unremarkable except as noted in HPI and below Exam Const: General: comfortable and no acute distress HENMT: Face/Nose/Sinus: Normal nares present Mouth: Yes moist mucous membranes Eyes: General: appearance normal, both eyes and all related structures Sclera: sclerae normal Pupils: Equal, round and reactive pupils present EOM: EOMs intact bilaterally Neck: Neck: supple and no JVD Carotids: no bruits Lymphatic: lymphadenopathy not noted Resp: Effort & Inspection: normal respiratory effort Auscultation: crackles (Bilateral bases) and rales (Right lower lobe) Cardio: Rate: regular rate and tachycardic Rhythm: regular rhythm Heart sounds: no gallops, no murmurs and no rubs GI: Inspection: non-distended Auscultation: normal bowel sounds Skin: General skin exam: normal color, no rashes or lesions noted and no erythema Wounds: no wounds Neuro: General: gait normal Cranial nerves: Yes Equal, round and reactive pupils present Speech: normal speech Motor exam (neuro): 5/5 motor strength present throughout, Normal motor muscle tone present throughout, strength normal and abnormal movements noted Sensory Exam: normal sensation Extrem: General: normal exam except as noted, edema (2+ to 3+ bilateral lower extremity from the level of the knees down) and pedal edema Psych: Mental Status: mental status grossly normal Affect: normal affect Objective Data Vital Signs Vital Signs: Vital Signs - 24 hr 12/15/24 08:37 12/15/24 08:40 12/15/24 08:40 Temperature Pulse Rate 94 101 H Respiratory Rate Blood Pressure Pulse Oximetry 92 Oxygen Delivery Room Air Oxygen Flow Rate 12/15/24 08:44 12/15/24 12:00 12/15/24 14:00 Temperature 97.8 F Pulse Rate 94 92 97 Respiratory Rate 18 Blood Pressure 123/93 H Pulse Oximetry 92 96 Oxygen Delivery Oxygen Flow Rate 12/15/24 15:07 12/15/24 15:17 12/15/24 16:00 Temperature Pulse Rate 95 Respiratory Rate Blood Pressure 98/61 L 93/61 L Pulse Oximetry Oxygen Delivery Oxygen Flow Rate 12/15/24 17:08 12/15/24 18:07 12/15/24 20:00 Temperature Pulse Rate 95 Respiratory Rate Blood Pressure 99/69 L 110/71 Pulse Oximetry Oxygen Delivery Oxygen Flow Rate 12/15/24 20:20 12/15/24 20:21 12/15/24 20:30 Temperature Pulse Rate 74 75 Respiratory Rate 20 20 Blood Pressure Pulse Oximetry 97 Oxygen Delivery Oxygen Flow Rate 12/15/24 20:53 12/15/24 21:05 12/16/24 00:04 Temperature 98.1 F Pulse Rate 94 89 Respiratory Rate 20 Blood Pressure 103/67 Pulse Oximetry 97 97 Oxygen Delivery Nasal Cannula Oxygen Flow Rate 3 12/16/24 01:43 12/16/24 01:53 12/16/24 04:00 Temperature Pulse Rate 92 94 93 Respiratory Rate 18 18 Blood Pressure Pulse Oximetry Oxygen Delivery Oxygen Flow Rate 12/16/24 05:16 12/16/24 07:30 12/16/24 07:30 Temperature 97.5 F L Pulse Rate 93 91 Respiratory Rate 20 18 Blood Pressure 109/76 Pulse Oximetry 97 92 Oxygen Delivery Nasal Cannula Oxygen Flow Rate 2 Intake/Output Intake/Output: Intake & Output 12/13/24 12/14/24 12/15/24 12/16/24 23:59 23:59 23:59 23:59 Intake Total 300 1420 500 Output Total 3200 900 200 Balance -2900 520 300 Meds/Results Medications: Active Medications Generic Name Dose Route Start Last Admin Trade Name Freq PRN Reason Stop Dose Admin Acetaminophen 650 mg 12/14/24 20:56 Acetaminophen 325 Mg Tablet PO Q4H PRN Mild Pain (1-3) or Fever Albuterol 2.5 mg 12/14/24 21:44 Albuterol Sulfate Neb 2.5 Mg/3 Ml Inh INHALATION Q4HRT PRN Shortness Of Breath Or Wheezing Albuterol/Ipratropium 3 ml 12/15/24 02:00 12/16/24 07:29 Ipratropium 0.5 Mg/Albuterol Sulfate 2.5 Mg Ampul.Neb 3 Ml INHALATION 3 ml Q6HRT REJI Administration Empagliflozin 10 mg 12/15/24 09:00 12/15/24 08:36 Empagliflozin 10 Mg Tablet PO 10 mg DAILY REJI Administration Enoxaparin Sodium 40 mg 12/15/24 09:00 12/15/24 08:37 Enoxaparin 40 Mg/0.4 Ml Syringe SUB-Q 40 mg DAILY REJI Administration Furosemide 40 mg 12/15/24 09:00 12/15/24 21:06 Furosemide Inj 40 Mg/4 Ml Vial IV PUSH 40 mg Q12HR REJI Administration Azithromycin 500 mg in 250 mls @ 250 mls/hr 12/15/24 22:00 12/15/24 22:53 Zithromax IVPB Infused Q24H RJEI Infusion Ceftriaxone Sodium 1 gm in 50 mls @ 100 mls/hr 12/15/24 21:00 12/15/24 21:36 Rocephin 1 Gm/Ns 50 Ml IVPB Infused Q24H REJI Infusion Melatonin 5 mg 12/14/24 21:44 Melatonin 5 Mg Tablet PO HS PRN Sleep Metoprolol Succinate 100 mg 12/15/24 09:00 12/15/24 08:37 Metoprolol Succinate Ext Rel 100 Mg Tabcr PO 100 mg QAM REJI Administration Potassium Chloride 20 meq 12/15/24 09:00 12/15/24 08:36 Potassium Chloride 20 Meq Er Tablet PO 20 meq DAILY REJI Administration Rosuvastatin Calcium 10 mg 12/15/24 09:00 12/15/24 08:36 Rosuvastatin 10 Mg Tablet PO 10 mg QAM REJI Administration Sacubitril/Valsartan 1 tab 12/15/24 09:00 12/15/24 21:05 Sacubitril/Valsartan 24-26 Mg Tablet PO 1 tab Q12HR REJI Administration Radiology Results: ITS Impressions Chest X-Ray 12/16/24 00:17 IMPRESSION: Bilateral basal pneumonia versus atelectasis with pleural effusion. Underlying pulmonary edema is not excluded Labs Labs: Laboratory Results - last 24 hr 12/15/24 12/15/24 12/15/24 06:41 23:09 23:20 WBC 8.8 RBC 4.78 Hgb 12.0 L Hct 40.9 L MCV 85.6 MCH 25.1 L MCHC 29.3 L RDW 18.0 H Plt Count 236 MPV 9.8 Immature Gran % (Auto) 0.3 Neut % (Auto) 51.7 Lymph % (Auto) 31.2 [place] % (Auto) 13.0 H Eos % (Auto) 2.9 Baso % (Auto) 0.9 Lymph # (Auto) 2.76 [place] # (Auto) 1.2 H Eos # (Auto) 0.3 Baso # (Auto) 0.1 Abs Immat Gran (auto) 0.03 Absolute Neuts (auto) 4.6 Absolute Nucleated RBC 0.000 Band Neutrophils % Not Reportable Nucleated RBC % 0.0 Platelet Estimate Adequate Hypochromasia 1+ Schistocytes None seen D-Dimer Puncture Site Right radial ABG pH 7.368 ABG pCO2 50.2 H ABG pO2 286.6 H ABG PO2/FiO2 Ratio 2.87 ABG HCO3 28.2 H ABG O2 Saturation 99.6 ABG O2 Content 19.7 ABG Base Excess 2.1 A-a Gradient 376.2 Oxyhemoglobin 98.9 Total Hemoglobin 13.7 O2 Delivery Device Non-rebreather mask O2 Liters/Min 15.0 FiO2 100 Sodium Potassium Chloride Carbon Dioxide Anion Gap BUN Creatinine Estim Creat Clear Calc Estimated GFR Glucose POC Capillary Glucose 149 H Lactic Acid Calcium Phosphorus Magnesium Total Bilirubin AST ALT Alkaline Phosphatase Troponin I Total Protein Albumin 12/15/24 12/15/24 12/16/24 23:26 23:28 02:17 WBC 11.8 H RBC 5.08 Hgb 12.7 L Hct 44.1 MCV 86.8 MCH 25.0 L MCHC 28.8 L RDW 18.0 H Plt Count 254 MPV 9.7 Immature Gran % (Auto) Neut % (Auto) Lymph % (Auto) [place] % (Auto) Eos % (Auto) Baso % (Auto) Lymph # (Auto) [place] # (Auto) Eos # (Auto) Baso # (Auto) Abs Immat Gran (auto) Absolute Neuts (auto) Absolute Nucleated RBC Band Neutrophils % Nucleated RBC % Platelet Estimate Hypochromasia Schistocytes D-Dimer 3.15 H Puncture Site ABG pH ABG pCO2 ABG pO2 ABG PO2/FiO2 Ratio ABG HCO3 ABG O2 Saturation ABG O2 Content ABG Base Excess A-a Gradient Oxyhemoglobin Total Hemoglobin O2 Delivery Device O2 Liters/Min FiO2 Sodium 140 Potassium 4.0 Chloride 97 L Carbon Dioxide 29 Anion Gap 14 H BUN 21 H Creatinine 0.88 Estim Creat Clear Calc 57 Estimated GFR > 60 Glucose 159 H POC Capillary Glucose Lactic Acid 4.4 H* 1.4 Calcium 8.4 Phosphorus 4.7 H Magnesium 2.2 Total Bilirubin 0.4 AST 35 ALT 19 Alkaline Phosphatase 85 Troponin I 0.024 Total Protein 7.6 Albumin 4.0 Quality VTE Prophylaxis VTE prophylaxis: pharmacologic ordered
[2024-12-16 08:18] LABS: Hematocrit 40.8 % (42.0-52.0); Hemoglobin 11.9 g/dL (14.0-18.0); Immature Granulocyte Percent A 0.5 % (0-0.5); Lymphocytes Absolute Auto 2.02 K/mm3 (0.9-3.2); Mean Corpuscular HGB Conc 29.2 g/dl (32-36); Mean Corpuscular Hemoglobin 25.4 pg (26-34); Mean Corpuscular Volume 87.2 fl (80-100); Nucleated Red Blood Cells Absolute Auto 0.000 K/mm3 (0.0-0.012); Nucleated Red Blood Cells Perc 0.0 % (0.0-0.2); Platelet Count Result 238 k/mm3 (150-375); Red Blood Count 4.68 M/mm3 (4.6-6.20); White Blood Count 11.8 K/mm3 (4.5-10.0)
[2024-12-16 08:26] LABS: Alanine Aminotransferase 19 U/L (6-50); Albumin Level 3.4 g/dL (3.5-5.1); Alkaline Phosphatase 80 U/L (38-126); Anion Gap 7 mmol/L (4-12); Aspartate Amino Transferase 72 U/L (17-59); Bilirubin,Total 0.5 mg/dL (0.2-1.3); Blood Urea Nitrogen 23 mg/dL (9-20); Calcium 8.4 mg/dL (8.4-10.2); Carbon Dioxide 33 mmol/L (22-30); Chloride 98 mmol/L (98-107); Estimated CRCL calculation 63 ml/min; Estimated Glomerular Filt Rate > 60; Glucose 109 mg/dL (65-110); Potassium 4.6 mmol/L (3.4-5.0); Sodium 138 mmol/L (137-145); Total Protein 6.8 g/dL (6.3-8.2)
[2024-12-16 08:39] LABS: Schistocytes None Seen
[2024-12-16] MEDS: ROSUVASTATIN 10 MG TABLET PO (09:55)
[2024-12-16] MEDS: POTASSIUM CHLORIDE 20 MEQ ER TABLET PO (09:55)
[2024-12-16] MEDS: METOPROLOL SUCCINATE EXT REL 100 MG TABCR PO (09:55)
[2024-12-16] MEDS: EMPAGLIFLOZIN 10 MG TABLET PO (09:55)
[2024-12-16] MEDS: SACUBITRIL/VALSARTAN 24-26 MG TABLET 1 TAB PO ×2 (09:55→21:45)
[2024-12-16] MEDS: FUROSEMIDE INJ 40 MG/4 ML VIAL IV PUSH (09:56)
[2024-12-16] MEDS: ENOXAPARIN 40 MG/0.4 ML SYRINGE SUB-Q (09:56)
--- NOTE | 2024-12-16 14:27 | PM.CNPUL ---
Assessment and Plan Assessment and plan (1) Bilateral pleural effusion: Code(s): J90 - Pleural effusion, not elsewhere classified Status: Acute Assessment and Plan: He has bilateral pleural effusions secondary to decompensated systolic congestive heart failure. I do not see evidence of consolidation. He has not had a productive cough, fever, chills, nothing that sounds like pneumonia. He had increasing leg swelling. All of his symptoms are consistent with congestive heart failure. It is not drawn to empirically let him stay on antibiotics for total of 2-3 days but I do not think that this is his underlying problem. His main problem is systolic congestive heart failure which needs to be optimized. I will send a CRP which is expected to be elevated if he has a bacterial infection. (2) Hypoxemia requiring supplemental oxygen: Code(s): R09.02 - Hypoxemia; Z99.81 - Dependence on supplemental oxygen Status: Acute Assessment and Plan: (3) Acute on chronic hypoxic respiratory failure: Code(s): J96.21 - Acute and chronic respiratory failure with hypoxia Status: Acute Assessment and Plan: Plan plan: I recommend treating his CHF. He does not have symptoms or CT findings compatible with pneumonia. History of Present Illness History of Present Illness Consult date: 12/16/24 Requesting physician: Dick Sánchez PA-C Chief complaint: CHF exacerbation, Possible pneumonia on x-ray Narrative: pt was seen 12/16/2024 @ 2100; Room 331 bed 2 He lives at home with a granddaughter NEW: Js Contreras is a 74-year old man, tells me that he came in very short of breath but did not have a productive cough, did not have sputum production, did not have a fever sore throat or nasal congestion. His legs are swollen. He uses oxygen at home 3 L at night with sleep and sometimes during the day p.r.n.. He does not have an oximeter and does not tell me that he checks his O2 saturation.He had a Rapid Response called overnight for sudden sweating and shortness of breath. CTA shows large bilateral effusions. In August 14, he had an echo with EF 40-45%. <del>P</del>MH: CHF, A Fib, substance abuse, HTN, Hyperlipidemia, sleep apnea, vit-D deficiency and alcoholic cirrhosis of liver. Admitted with complaints of having edema to the bilateral lower extremities and dyspnea on exertion for the past couple of weeks. When he was admitted in August, pulmonary service also saw him for shortness of breath; he has decompensated CHF at the time. DATA * 12/16/24 CTA; COMPARISON: 08/22/2024FINDINGS/OBSERVATIONS: PULMONARY ARTERIES: No filling defect is identified within the main or proximal pulmonary artery. The main pulmonary artery is not enlarged. THORACIC AORTA: No aneurysmal dilatation or dissection is present. The great vessels are intact LUNGS: Large bilateral pleural effusions with adjacent compressive atelectasis and paraseptal thickening. MEDIASTINUM: No morphologically suspicious or pathologically enlarged lymph nodes are identified within the mediastinum or bilateral axilla. Calcified lymph nodes within the mediastinum suggesting prior granulomatous disease. BONES OF THE CHEST: No acute fracture. No significant degenerative disease. No lytic or blastic lesions. HEART: The heart is enlarged, unchanged. Small pericardial effusion. Abdominal findings Moderate abdominal ascites is noted, with reflux of intravenous contrast into the hepatic veins suggesting right heart failure. IMPRESSION: No pulmonary embolus. No thoracic aortic dissection. Findings suggesting congestive failure, with large bilateral pleural effusions and intra-abdominal ascites. Review of Systems Review of Systems: All systems reviewed & are unremarkable except as noted in HPI and below PMFSH Past Medical History Medical History Noncompliance with treatment Eczema Sleep apnea Hypertension Hyperlipidemia Vitamin D deficiency Substance abuse Atrial fibrillation Congestive heart failure Surgical History Surgical History History of umbilical hernia repair robotic assisted repair incarcerated umbilical hernia measuring 4.5 cm, myofascial release x2 H/O hemorrhoidectomy History of appendectomy History of carpal tunnel release Family History Family History Mother Parkinson disease Father Alcohol abuse Social History Social History Social History: Lives with grand daughter (13 year old) 1 dog Smoking status: Never smoker Second hand tobacco smoke exposure: Yes Alcohol intake: former Drinks per week: 2 Substance use: current Substance use type: marijuana and crack/cocaine Other substance usage details: once in while, last used 2 weeks ago Do You Feel Safe in your Home?: Yes Lack of Transportation: No Lack of Food: Never True Current Housing: I Have Housing Concerned About Future Housing: No Difficulty Paying Gas/Electric Bills: No Difficulty Paying for Meds: No Currently Unemployed: No Education: High School Diploma/GED Difficulty w/ Childcare or Family Care: No Spiritual care concerns: No Meds Home Medications and Allergies Home Medications ?Medication ?Instructions ?Recorded ?Confirmed ?Type aspirin 81 mg chewable tablet 81 mg PO DAILY 08/23/24 12/15/24 History cholecalciferol (vitamin D3) 50 2,000 unit PO DAILY 08/23/24 12/15/24 History mcg (2,000 unit) capsule furosemide 40 mg tablet 40 mg PO DAILY #30 tabs 08/28/24 12/15/24 Rx metoprolol succinate 100 mg 100 mg PO QAM #60 tabs 08/28/24 12/15/24 Rx tablet,extended release 24 hr (Toprol XL) potassium chloride 20 mEq oral 20 meq PO DAILY #30 ea 08/28/24 12/15/24 Rx packet rosuvastatin 20 mg tablet (Crestor) 10 mg (1/2 x 20 mg) PO HS #30 tabs 08/28/24 12/15/24 Rx empagliflozin 10 mg tablet 10 mg PO DAILY #30 tabs 10/22/24 12/15/24 Rx sacubitril 24 mg-valsartan 26 mg 1 tab PO Q12HR #30 tabs 10/22/24 12/15/24 Rx tablet (Entresto) Allergies Allergy/AdvReac Type Severity Reaction Status Date / Time No Known Drug Allergies Allergy Other Verified 12/05/24 17:47 Vital Signs Vital Signs - 24 hr 12/15/24 15:07 12/15/24 15:17 12/15/24 16:00 Temperature Pulse Rate 95 Respiratory Rate Blood Pressure 98/61 L 93/61 L Pulse Oximetry Oxygen Delivery Oxygen Flow Rate 12/15/24 17:08 12/15/24 18:07 12/15/24 20:00 Temperature Pulse Rate 95 Respiratory Rate Blood Pressure 99/69 L 110/71 Pulse Oximetry Oxygen Delivery Oxygen Flow Rate 12/15/24 20:20 12/15/24 20:21 12/15/24 20:30 Temperature Pulse Rate 74 75 Respiratory Rate 20 20 Blood Pressure Pulse Oximetry 97 Oxygen Delivery Oxygen Flow Rate 12/15/24 20:53 12/15/24 21:05 12/16/24 00:04 Temperature 36.7 C Pulse Rate 94 89 Respiratory Rate 20 Blood Pressure 103/67 Pulse Oximetry 97 97 Oxygen Delivery Nasal Cannula Oxygen Flow Rate 3 12/16/24 01:43 12/16/24 01:53 12/16/24 04:00 Temperature Pulse Rate 92 94 93 Respiratory Rate 18 18 Blood Pressure Pulse Oximetry Oxygen Delivery Oxygen Flow Rate 12/16/24 05:16 12/16/24 07:30 12/16/24 07:30 Temperature 36.4 C L Pulse Rate 93 91 Respiratory Rate 20 18 Blood Pressure 109/76 Pulse Oximetry 97 92 Oxygen Delivery Nasal Cannula Oxygen Flow Rate 2 12/16/24 07:43 12/16/24 09:55 12/16/24 13:45 Temperature Pulse Rate 94 92 91 Respiratory Rate 18 18 Blood Pressure Pulse Oximetry Oxygen Delivery Oxygen Flow Rate 12/16/24 14:00 Temperature Pulse Rate 90 Respiratory Rate 18 Blood Pressure Pulse Oximetry Oxygen Delivery Oxygen Flow Rate Exam Narrative: GEN: Alert, oriented, not in distress. He had his NC on top of his head, moved it down to his nose when I told him it was up there HEENT: pupils are equal, EOMI, symmetrical face; oral membranes moist, NECK: Trachea is midline CHEST: Equal air entry, symmetric excursion, decreased breath sounds both bases, no wheezes CV: Regular S1S2 no m/g/r ABD : (+) bowel sounds Extremities : no clubbing, cyanosis, 2+ edema in lower extremities, skin is cool PSYCH: a little confused, O2 on top of head, repeats himself, yes, no , I use no O2, yes I use it at night and sometimes in the day if I need it Results Laboratory Findings 12/16/24 02:13 12/16/24 02:17 ABG, PT/INR, D-dimer: ABG ABG pH 7.368 (7.350-7.450) 12/15/24 23:20 ABG pCO2 50.2 mmHg (35.0-45.0) H 12/15/24 23:20 ABG pO2 286.6 mmHg (80.0-100.0) H 12/15/24 23:20 ABG O2 Saturation 99.6 % (95.0-100.0) 12/15/24 23:20 PT/INR, D-dimer PT 14.9 Seconds (11.1-14.7) H 12/14/24 19:34 INR 1.2 12/14/24 19:34 D-Dimer 3.15 ug/mL (<0.48) H 12/15/24 23:28 Abnormal lab findings: Abnormal Labs 12/14/24 12/15/24 12/15/24 19:34 06:41 23:09 WBC 10.2 H Hgb 12.2 L 12.0 L Hct 41.1 L 40.9 L MCH 25.2 L 25.1 L MCHC 29.7 L 29.3 L RDW 18.0 H 18.0 H MPV Lymph % (Auto) Blaine % (Auto) 10.7 H 13.0 H Blaine # (Auto) 1.1 H 1.2 H Abs Immat Gran (auto) Absolute Neuts (auto) PT 14.9 H D-Dimer ABG pCO2 ABG pO2 ABG HCO3 Chloride Carbon Dioxide 36 H 36 H Anion Gap BUN Glucose 118 H 117 H POC Capillary Glucose 149 H Lactic Acid Phosphorus AST NT-Pro-B Natriuret Pep 5810 H Albumin 12/15/24 12/15/24 12/15/24 23:20 23:26 23:28 WBC 11.8 H Hgb 12.7 L Hct MCH 25.0 L MCHC 28.8 L RDW 18.0 H MPV Lymph % (Auto) Blaine % (Auto) [place] # (Auto) Abs Immat Gran (auto) Absolute Neuts (auto) PT D-Dimer 3.15 H ABG pCO2 50.2 H ABG pO2 286.6 H ABG HCO3 28.2 H Chloride 97 L Carbon Dioxide Anion Gap 14 H BUN 21 H Glucose 159 H POC Capillary Glucose Lactic Acid 4.4 H* Phosphorus 4.7 H AST NT-Pro-B Natriuret Pep Albumin 12/16/24 12/16/24 02:13 02:17 WBC 11.8 H Hgb 11.9 L Hct 40.8 L MCH 25.4 L MCHC 29.2 L RDW 18.0 H MPV 10.5 H Lymph % (Auto) 17.2 L Blaine % (Auto) 9.8 H Blaine # (Auto) 1.2 H Abs Immat Gran (auto) 0.06 H Absolute Neuts (auto) 8.4 H PT D-Dimer ABG pCO2 ABG pO2 ABG HCO3 Chloride Carbon Dioxide 33 H Anion Gap BUN 23 H Glucose POC Capillary Glucose Lactic Acid Phosphorus AST 72 H NT-Pro-B Natriuret Pep Albumin 3.4 L
[2024-12-16 14:38] LABS: Alveolar/Arterial O2 Gradient 84.7 mmHg; Fractional Inspired Oxygen 32 %; HCO3 ABG 28.7 mEq/l (22.0-26.0); Liters per Minute 3.0 LPM; Modified Allen's Test Pass; Oxygen Content ABG 18.4 %vol (16.0-22.0); Oxygen Saturation ABG 97.4 % (95.0-100.0); PCO2 ABG 42.4 mmHg (35.0-45.0); PO2 ABG 93.9 mmHg (80.0-100.0); PO2 FiO2 Ratio Arterial Blood 2.93 %; Site Drawn LEFT RADIAL
[2024-12-16] MEDS: AZITHROMYCIN 500 MG/NS 250 ML 500 MG/250 ML BAG 250 MG IVPB (22:17)
[2024-12-16] MEDS: MIDAZOLAM 100MG/NS 100ML(*CRX) 100 MG/100 ML BAG IV CONT (23:25)
--- NOTE | 2024-12-16 23:35 | PM.CCN ---
Critical Care Event Note Summary Code activated: Yes Narrative: 2302 rapid responce patient was walking back from the bathroom complaining of shortness of breath when his face turned blue a unresponsive SUBSYSTEMS ENGINEER at bedside patient is actively breathing plan to bag patient. 2306 Code blue epi x1 bicarb x1 see code documentation for details [address] Ingram [address] Sweeney Patient found to be severely hypoxic likely due from acute CHF exacerbation, he has large bilateral pleural effusions, CTA PE protocol was done yesterday negative for PE ABGs with vent adjustment NG tube and [place] [facility] government documents librarian consulted and accepts patient Critical Care Time Critical Care Time: Yes Total Critical Care Time: Over 75 minutes Due to a high probability of clinically significant, life threatening deterioration, the patient required my highest level of preparedness to intervene emergently and I personally spent this critical care time directly and personally managing the patient. This critical care time included obtaining a history; examining the patient; pulse oximetry; ordering and review of studies; arranging urgent treatment with development of a management plan; evaluation of patient's response to treatment; frequent reassessment; and discussions with other providers. It was exclusive of separately billable procedures and treating other patients and teaching time. Please see Assessment and Plan section and the rest of the note for further information on patient assessment and treatment. This case had a high probability of a clinically significant, sudden, or life threatening deterioration of this patient's condition which required my full and direct attention, intervention and personal management. Critical care time: 75 - 104 mins
--- NOTE | 2024-12-16 23:53 | PC.NURSE ---
2315 bp 167/109 2319 etomidate 20mg 2320 rocuronium 50mg 2320 etomidate 10mg 2322 pt intubated with = color change, 7.5 ett, 25@ bottom lip, ocnfirmed by x-ray 2325 verset gtt started @5/hr [address] Ingram 1st attempt coiled 2334 versed 2mg bolus 2336 bp 97/67 2340 CL started and placed by Dr. Ingram, confirmed by xray.
--- NOTE | 2024-12-16 23:58 | ED.PROCEDURE ---
Procedures Central Line Placement Left SC: Central Line Date: 12/16/24 Central Line Time: 23:30 Performed Emergently - Given emergent patient condition, temporal constraints may have precluded informed consent.: Yes Consent: Emergent implied consent given patient is status post CPR and intubated. Time Out Performed: Yes Patient Position: supine Patient placed on monitor/pulse ox: Yes Provider Prep: mask, sterile gown, sterile gloves, Max. sterile barrier precautions, cap and hand hygiene with conventional soap/water or alcohol based hand rub Central line prep: 2% Chlorhexidine scrub and sterile full body sheet applied Local anesthesia used: lidocaine 1% Sterile US Technique with sterile gel/sterile probe covers: No Central line lumen inserted: triple Lithuanian: 9 Length (cm): 16 Depth of Insertion (cm): 16 Post Procedure: sutured in place, good blood return, all ports aspirated, flushed, capped, transparent dressing and aseptic technique maintained throughout procedure Post procedure x-ray: tip of catheter in good position and no pneumothorax seen Patient tolerated procedure: well and no complications Complications: none Intubation Intubation Date: 12/16/24 Intubation Time: 23:25 Consent: Emergent implied consent given patient is status post CPR A pre-procedural Time-Out was completed immediately before starting the procedure and confirmed: Patient Identification, Site, Procedure, Patient Position and the Availability of Requisite Equipment: Yes Sedative: etomidate Mg given: 20 Paralytic: rocuronium Mg given: 50 Laryngoscope: fiber optic video scope ET tube size: 7.5 Tube secured depth (cm): 25 Tube secured location: lips Tube placement confirmation: visualized tube passing through cords, equal breath sounds bilaterally, no breath sounds over epigastrium and confirmation by capnometry Patient tolerated procedure: well and no complications Intubation complications: none
[2024-12-17] VITALS (97 sets, daily range): BP systolic 73–125; BP diastolic 41–93; PULSE 81–138; RESP 8–96; TEMP 36.9–38.3; O2SAT 93–100
--- NOTE | 2024-12-17 | ECHO_ITS ---
Patient Info Name: Js Contreras Age: 74 years : 1950 Gender: Male Ht: 66 in Wt: 180 lbs BSA: 1.97 m2 HR: 97 bpm BP: 104 / 75 mmHg Technical Quality: Good Exam Date: 12/17/2024 8:16 AM Patient Status: I Admit Date: 12/14/2024 Exam Type: CA echo dop color flow w con Complete two-dimensional, color flow and Doppler transthoracic echocardiogram is performed with contrast to opacify the left ventricle and to improve the deliniation of the left ventricle endocardial borders. Staff Referring Physician: Leland Alejandro Electrician Control Equipment: Leyda Can Attending Provider: Carlos Enrique Gottlieb MD Contrast/Agitated Saline Contrast/Ag. Saline: Definity Amount: 2.00 ml Administered By: Leyda Can Existing IV Access: Yes IV Access Condition: patent with no signs of infiltration Summary 1. Left ventricular chamber dimension is moderately enlarged. 2. Left ventricular systolic function is moderately reduced, estimated at 30-35. 3. There is mildly increased left ventricular wall thickness. 4. The left ventricular diastolic function is abnormal. 5. Right ventricular chamber dimension is mildly enlarged. 6. Right ventricular systolic function is reduced. 7. Left atrial chamber dimension is mildly enlarged. 8. Right atrial chamber dimension is mildly enlarged. 9. There is severe mitral valve regurgitation. 10. There is severe tricuspid valve regurgitation. 11. Moderate pulmonary hypertension, estimated pulmonary arterial systolic pressure is 53 mmHg. Left Ventricle Left ventricular chamber dimension is moderately enlarged. Left ventricular systolic function is moderately reduced, estimated at 30-35. There is mildly increased left ventricular wall thickness. The left ventricular diastolic function is abnormal. Right Ventricle Right ventricular chamber dimension is mildly enlarged. Right ventricular systolic function is reduced. Left Atria Left atrial chamber dimension is mildly enlarged. Right Atria Right atrial chamber dimension is mildly enlarged. Aortic Valve The aortic valve is trileaflet. There is no aortic valve sclerosis. There is no aortic valve stenosis. There is no aortic valve regurgitation. Pulmonic Valve The pulmonic valve is normal. There is no pulmonic valve stenosis. There is no pulmonic regurgitation. Mitral Valve The mitral valve has normal leaflets. There is no mitral valve stenosis. There is severe mitral valve regurgitation. Tricuspid Valve The tricuspid valve leaflets are normal. There is no significant tricuspid valve stenosis. There is severe tricuspid valve regurgitation. Moderate pulmonary hypertension, estimated pulmonary arterial systolic pressure is 53 mmHg. Pericardium/Pleural The pericardium appears normal. There is no pericardial effusion. Inferior Vena Cava Dilated inferior vena cava with <50% collapse upon inspiration consistent with elevated right atrial pressure, 15 mmHg. Aorta The aortic root size at the sinus of Valsalva is normal. The prox ascending aorta size is normal. Left Ventricular Outflow Tract Name Value Normal LVOT 2D LVOT Diameter 2.0 cm LVOT Doppler LVOT Peak Velocity 78 cm/s LVOT Peak Gradient 2 mmHg LVOT Mean Gradient 1 mmHg LVOT VTI 12 cm LVOT Stroke Volume 38 ml LVOT CO 3.7 l/min LVOT CI 1.9 l/min/m2 Pulmonic Valve Name Value Normal RVOT Doppler RVOT Peak Velocity 39 cm/s RVOT Peak Gradient 1 mmHg PV Doppler PV Peak Velocity 66 cm/s PV Peak Gradient 2 mmHg Mitral Valve Name Value Normal MV Regurgitation Doppler MR Peak Gradient 172 mmHg MV Diastolic Function MV E Peak Velocity 86 cm/s MV A Peak Velocity 57 cm/s MV E/A 1.5 MV Decel Time (PW) 147 ms MV Annular TDI MV E/e' (Septal) 19.7 MV E/e' (Lateral) 13.8 MV E/e' (Average) 16.7 Tricuspid Valve Name Value Normal TV Regurgitation Doppler TR Peak Velocity 309 cm/s TR Peak Gradient 38 mmHg Estimated PAP/RSVP RA Pressure 15 mmHg <=5 PA Systolic Pressure 53 mmHg <36 RV Systolic Pressure 53 mmHg <36 TV Annular TDI TV Lateral Anita s' Velocity 4.8 cm/s >=9.5 Aortic Valve Name Value Normal AV Doppler AV Peak Velocity 87 cm/s AV Peak Gradient 3 mmHg AV Area (Cont Eq Saurabh) 2.9 cm2 AV DI (Saurabh) 0.90 AV Regurgitation 2D LVOT Area 3.2 cm2 Ventricles Name Value Normal LV Dimensions 2D/MM IVS Diastolic Thickness (2D) 1.0 cm 0.6-1.0 LVID Diastole (2D) 6.1 cm 4.2-5.8 LVIW Diastolic Thickness (2D) 0.9 cm 0.6-1.0 LVID Systole (2D) 4.6 cm 2.5-4.0 LVOT Diameter 2.0 cm LV Mass (2D Cubed) 236.68 g 88.00-224.00 LV Mass Index (2D Cubed) 120 g/m2 49-115 Relative Wall Thickness (2D) 0.31 <=0.42 LV Fractional Shortening/Ejection Fraction 2D/MM LV Fractional Shortening (2D) 25 % 25-43 LV EF (2D Te[place]mer[place]z) 49 % LV Diastolic Volume (4C MOD) 139 ml LV EF (4C MOD) 26 % LV Diastolic Volume (2C MOD) 188 ml LV EF (2C MOD) 22 % LV Diastolic Volume (BP MOD) 167 ml 62-150 LV Diastolic Volume Index (BP MOD) 85 ml/m2 34-74 LV Systolic Volume (BP MOD) 125 ml 21-61 LV Systolic Volume Index (BP MOD) 63 ml/m2 11-31 LV EF (BP MOD) 26 % 52-72 LV Diastolic Length (4C) 8.1 cm LV Systolic Length (4C) 8.1 cm LV Stroke Volume (4C MOD) 36 ml Atria Name Value Normal LA Dimensions LA Volume (4C A-L) 119 ml LA Volume (BP A-L) 104 ml RA Dimensions RA Systolic Major [place] Length (4C) 6.1 cm 2.1-2.7 RA Area (4C) 16.5 cm2 <=18.0 Report Signatures
--- NOTE | 2024-12-17 00:10 | ECG_ITS ---
Test Date: 2024-12-17 01:34:32 Measurements Intervals [place] Rate: 91 P: 0 HI: 0 QRS: 133 QRSD: 168 T: -61 QT: 402 QTc: 495 Interpretive Statements ATRIAL FLUTTER/TACHYCARDIA RIGHT BUNDLE BRANCH BLOCK [120+ ms QRS DURATION, UPRIGHT V1, 40+ ms S IN I/aVL/V4/V5/V6] LEFT POSTERIOR FASCICULAR BLOCK [QRS AXIS > 109, INFERIOR Q] MODERATE T-WAVE ABNORMALITY, CONSIDER INFERIOR ISCHEMIA [-0.1+ mV T WAVE IN II/aVF] Compared to ECG 12/15/2024 23:35:15 no change Electronically Signed On 12-17-2024 14:01:51 CDT by Ruben Maldonado M.D.
[2024-12-17] MEDS: FENTANYL 2,500MCG/NS250ML(*CRX 2,500 MCG/250 ML BAG 10 MCG IV CONT ×2 (00:15→21:37)
[2024-12-17 00:34] LABS: Alveolar/Arterial O2 Gradient 576.4 mmHg; Carboxyhemoglobin 0.9 % THb (0-2.0); Fractional Inspired Oxygen 100 %; HCO3 ABG 27.8 mEq/l (22.0-26.0); Methemoglobin ABG 0.1 %THb (0-1.5); Oxygen Content ABG 17.3 %vol (16.0-22.0); Oxygen Saturation ABG 91.9 % (95.0-100.0); PO2 ABG 72.7 mmHg (80.0-100.0); PO2 FiO2 Ratio Arterial Blood 0.73 %; Reduced Hemoglobin 6.9 %THb (0-5.0)
[2024-12-17 00:37] LABS: Modified Allen's Test Pass; PCO2 ABG 63.9 mmHg (35.0-45.0); Site Drawn RIGHT RADIAL
[2024-12-17 00:38] LABS: Arterial Blood Gas Tidal Volume 450 ml; Arterial Blood Gas Ventilator rate 16 /MIN
[2024-12-17 00:51] LABS: Hematocrit 39.8 % (42.0-52.0); Hemoglobin 11.8 g/dL (14.0-18.0); Immature Granulocyte Percent A 0.4 % (0-0.5); Lymphocytes Absolute Auto 1.88 K/mm3 (0.9-3.2); Mean Corpuscular HGB Conc 29.6 g/dl (32-36); Mean Corpuscular Hemoglobin 25.3 pg (26-34); Mean Corpuscular Volume 85.2 fl (80-100); Nucleated Red Blood Cells Absolute Auto 0.000 K/mm3 (0.0-0.012); Nucleated Red Blood Cells Perc 0.0 % (0.0-0.2); Platelet Count Result 234 k/mm3 (150-375); Red Blood Count 4.67 M/mm3 (4.6-6.20); White Blood Count 12.1 K/mm3 (4.5-10.0)
--- NOTE | 2024-12-17 00:57 | PC.NURSE ---
Padmini Tee notified patient was hypotensive blood pressure 97/72 P 91, R 18, T 97.6F, and 96% oxygenation. New orders given and hold Lasix 40mg IV push. Will continue to monitor patient progress throughout shift. Call light within reach, bed lowest position with fall precaution bed alarm set.
[2024-12-17 01:07] LABS: INR 1.4; Prothrombin Time 17.2 Seconds (11.1-14.7)
[2024-12-17 01:08] LABS: Partial Thromboplastin Time 31.1 Seconds (22.3-36.8)
--- NOTE | 2024-12-17 01:08 | PC.NURSE ---
Patient used bathroom, walked back to bed with staff assistance then suddenly became disoriented for baseline AOx3 to name only upon laying down in bed. Suddenly started to stare up at ceiling without blinking, skin was pale, agonal breathing, and pulse faint. Sternal rub did not bring patient to orientation, remained in that state then stopped breathing. CRP initiated for 3 minutes while rapid response activated. RR team took over patient care. Pt was intubated, central line placed and sent to ICU room 7 for higher level of care needed.
[2024-12-17 01:13] LABS: Troponin I 0.173 ng/mL (0.000-0.034)
[2024-12-17] MEDS: NOREPINEPHRINE 8 MG/D5W 250 ML 8 MG/250 ML BAG 9.38 MG IV CONT (01:15)
[2024-12-17 01:17] LABS: Anisocytosis 1+; Poikilocytosis 1+
[2024-12-17 01:18] LABS: Hypochromasia 1+; Schistocytes Rare
[2024-12-17] MEDS: ALBUMIN HUMAN 25% 25 GM/100 ML 100 ML IVPB (01:27)
--- NOTE | 2024-12-17 01:55 | PC.NURSE ---
This patient transferred from [facility] at 0015 into ICU 7. Belongings brought with patient. Two pinky rings removed in case of edema and placed in biohazard bag and placed in patient's black duffle bag. Gold chain still on neck.
[2024-12-17 02:17] LABS: MRSA (PCR) DETECTED (NOT DETECTE)
[2024-12-17] MEDS: IPRATROPIUM 0.5 MG/ALBUTEROL SULFATE 2.5 MG AMPUL.NEB 3 ML INHALATION ×4 (02:54→19:54)
[2024-12-17 04:17] LABS: Alveolar/Arterial O2 Gradient 298.7 mmHg; Fractional Inspired Oxygen 80 %; HCO3 ABG 30.8 mEq/l (22.0-26.0); Oxygen Content ABG 16.9 %vol (16.0-22.0); Oxygen Saturation ABG 99.5 % (95.0-100.0); PCO2 ABG 44.2 mmHg (35.0-45.0); PO2 ABG 225.3 mmHg (80.0-100.0); PO2 FiO2 Ratio Arterial Blood 2.82 %
[2024-12-17 04:18] LABS: Modified Allen's Test Pass; Site Drawn RIGHT RADIAL
[2024-12-17 04:19] LABS: Arterial Blood Gas Tidal Volume 450 ml; Arterial Blood Gas Ventilator rate 20 /MIN
--- NOTE | 2024-12-17 04:21 | PC.NURSE ---
[address] with RN, PCT, and RT.
--- NOTE | 2024-12-17 04:35 | PCRCNOTE ---
STAT ABG delayed to allow the RN time to situate patient after transport from the floor to ICU.
[2024-12-17] MEDS: CENTRAL LINE FLUSH 10 ML IV PUSH ×6 (04:38→21:06)
[2024-12-17 04:39] LABS: Hematocrit 34.9 % (42.0-52.0); Hemoglobin 10.6 g/dL (14.0-18.0); Immature Granulocyte Percent A 0.4 % (0-0.5); Lymphocytes Absolute Auto 2.82 K/mm3 (0.9-3.2); Mean Corpuscular HGB Conc 30.4 g/dl (32-36); Mean Corpuscular Hemoglobin 25.2 pg (26-34); Mean Corpuscular Volume 83.1 fl (80-100); Nucleated Red Blood Cells Absolute Auto 0.000 K/mm3 (0.0-0.012); Nucleated Red Blood Cells Perc 0.0 % (0.0-0.2); Platelet Count Result 230 k/mm3 (150-375); Red Blood Count 4.20 M/mm3 (4.6-6.20); White Blood Count 12.8 K/mm3 (4.5-10.0)
[2024-12-17] MEDS: CENTRAL LINE FLUSH 20 ML IV PUSH (04:39)
[2024-12-17 04:50] LABS: Alanine Aminotransferase 59 U/L (6-50); Albumin Level 3.4 g/dL (3.5-5.1); Alkaline Phosphatase 75 U/L (38-126); Anion Gap 8 mmol/L (4-12); Aspartate Amino Transferase 95 U/L (17-59); Bilirubin,Total 0.9 mg/dL (0.2-1.3); Blood Urea Nitrogen 33 mg/dL (9-20); Calcium 8.3 mg/dL (8.4-10.2); Carbon Dioxide 33 mmol/L (22-30); Chloride 97 mmol/L (98-107); Estimated CRCL calculation 47 ml/min; Estimated Glomerular Filt Rate > 60; Glucose 111 mg/dL (65-110); Potassium 4.3 mmol/L (3.4-5.0); Sodium 138 mmol/L (137-145); Total Protein 6.3 g/dL (6.3-8.2)
--- NOTE | 2024-12-17 08:32 | PC.NURSE ---
12/17/24 020 attempted to contact Elizabeth Contreras - received message this phone is not available at this time. Unable to leave message. 12/17/24203 contacted Kait Tan daughter. Notified of events leading to ICU transfer. Plans to come to hospital with brother.
--- NOTE | 2024-12-17 08:40 | P.CONIN_ITS ---
Assessment and Plan Assessment and plan (1) Acute hypoxic respiratory failure: Code(s): J96.01 - Acute respiratory failure with hypoxia Status: Acute Assessment and Plan: Acute Respiratory failure secondary to congestive heart failure leading to pleural effusions and pulmonary edema. Patient also has bilateral atelectasis with questionable pneumonia CTA chest was done overnight and report is pending 12/16 intubated and placed on mechanical ventilation Continue full mechanical ventilation support to prevent hypoxemia/hypercarbia and end organ damage. ABG reviewed and I will decrease tidal volume to 720 increase PEEP to 8 and wean FiO2 to 60% Continue Lasix for diuresis Will request IR for thoracentesis starting with the left side Bronchodilators Empiric Rocephin and azithromycin, check procalcitonin level. Change Rocephin to Zosyn -see below Blood cultures were done on 12/14 and for and have been negative (2) Shock: Code(s): R57.9 - Shock, unspecified Status: Acute Assessment and Plan: Multifactorial. Likely secondary combination of sedation, questionable sepsis,? Cardiogenic Continue Levophed titration to maintain mean arterial pressure. (3) Acute exacerbation of CHF (congestive heart failure): Qualifiers: Heart failure type: combined systolic and diastolic Qualified Code(s): I50.43 - Acute on chronic combined systolic (congestive) and diastolic (congestive) heart failure Code(s): I50.9 - Heart failure, unspecified Status: Acute Assessment and Plan: Patient was recently diagnosed with congestive heart failure with EF of 40-45% and diastolic dysfunction. He was discharged on multiple medications but unfortunately was not taking any and was taking low-dose Lasix. Now presented with congestive heart failure with lower extremity edema pull effusions which has been gradually getting worse now leading to intubation and mechanical ventilation I will hold Entresto beta-garret due to hypotension Continue Levophed for ionotropic and blood pressure support Continue Lasix for diuresis Will request IR for thoracentesis starting with the left side Repeat echo ordered (4) Elevated troponin: Code(s): R79.89 - Other specified abnormal findings of blood chemistry Status: Acute Assessment and Plan: Chronically elevated troponin levels. Will discuss with Cardiology regarding workup for ischemic coronary disease Currently on aspirin Patient was not reporting any chest pain during the hospitalization prior to intubation (5) Atrial fibrillation: Qualifiers: Atrial fibrillation type: unspecified Qualified Code(s): I48.91 - Unspecified atrial fibrillation Code(s): I48.91 - Unspecified atrial fibrillation Status: Chronic Assessment and Plan: History of AFib in the chart but none of the past EKGs have shown AFib and also currently in sinus rhythm (6) Hyperlipidemia: Code(s): E78.5 - Hyperlipidemia, unspecified Status: Chronic Assessment and Plan: Continue statin (7) Bilateral pleural effusion: Code(s): J90 - Pleural effusion, not elsewhere classified Status: Acute Assessment and Plan: See above (8) Pneumonia: Qualifiers: Laterality: bilateral Lung location: lower lobe of lung Pneumonia type: due to unspecified organism Qualified Code(s): J18.9 - Pneumonia, unspecified organism Code(s): J18.9 - Pneumonia, unspecified organism Status: Acute Assessment and Plan: See above (9) Substance abuse: Code(s): F19.10 - Other psychoactive substance abuse, uncomplicated Status: Chronic Assessment and Plan: Long History of drug abuse including cocaine could be the etiology of his congestive heart failure. (10) Abdominal fluid collection: Code(s): R18.8 - Other ascites Status: Acute Assessment and Plan: CT scan of the abdomen shows Rim-enhancing fluid collection along the anterior abdominal wall measuring denser than simple fluid for which a perioperative seroma versus abscess (less likely) is suspected. Focused ultrasound may be performed for further evaluation.. Patient had abdominal surgery for umbilical hernia and small-bowel obstruction Will consult general surgery Change antibiotics to Zosyn Plan DVT prophylaxis -Lovenox Stress ulcer prophylaxis -PPI Nutrition -start Tube Feeds Code Status - Full Code I spoke to patient's son and at bedside and updated in the patient's status. I answered all their questions. Total Critical Care Time - 35 minutes Due to a high probability of clinically significant, life threatening deterioration, the patient required my highest level of preparedness to intervene emergently and I personally spent this critical care time directly and personally managing the patient. This critical care time included obtaining a history; examining the patient; pulse oximetry; ordering and review of studies; arranging urgent treatment with development of a management plan; evaluation of patient's response to treatment; frequent reassessment; and discussions with other providers. It was exclusive of separately billable procedures and treating other patients and teaching time. Please see Assessment and Plan section and the rest of the note for further information on patient assessment and treatment L[facility] G[facility]er Consult Note Consult date: 12/17/24 Reason for consult: Acute respiratory failure HPI: Js Contreras is a 74 year old male with past medical history of congestive heart failure, AFib, substance abuse, hypertension, hyperlipidemia, sleep apnea, alcoholic cirrhosis was admitted on 12/14 with chief complaint of edema of bilateral lower extremities and shortness of breath. He was recently diagnosed with CHF with EF 40-45% and grade 1 diastolic dysfunction. He was recommended to take heart failure medications but as per his son he was unable to afford them. He was supposed to get a stress test as an outpatient. It appears the patient was also not taking his Lasix dose at home. Patient's son does admit the patient uses drugs occasionally. At the time of admission patient was found to be having elevated BNP lower extremity edema and elevated troponin chest x-ray showed pleural effusions. Patient was admitted and started on IV antibiotics and was given Lasix. Patient was evaluated by Cardiology and Pulmonary On 12/15 night patient had a rapid response due to shortness of breath and hypoxia. Patient was given additional dose of Lasix. Last night patient had again a rapid response where he became short of breath while walking to bathroom and then collapsed became unresponsive. Patient was immediately intubated patient patient had a brief PEA and was given 1 dose of epinephrine. Patient was intubated and placed on mechanical ventilation. He will also was hypotensive after intubation hence a central venous catheter was placed and patient was started on Levophed. This morning when I evaluated the patient he is sedated on Versed and fentanyl. He is on 4 mics of Levophed. He is on 60% FiO2 and 5 of PEEP. Additional history is only obtained from patient's son and at bedside. Patient is unable to provide any other meaningful history or review of systems. Review of Systems 2 Review of Systems: ROS unobtainable: Yes unobtainable due to endotracheal tube, unobtainable due to medical condition and unobtainable due to mental status PMFSH Past Medical History Medical History Noncompliance with treatment Eczema Sleep apnea Hypertension Hyperlipidemia Vitamin D deficiency Substance abuse Atrial fibrillation Congestive heart failure Surgical History Surgical History History of umbilical hernia repair robotic assisted repair incarcerated umbilical hernia measuring 4.5 cm, myofascial release x2 H/O hemorrhoidectomy History of appendectomy History of carpal tunnel release Family History Family History Mother Parkinson disease Father Alcohol abuse Social History Social History Social History: Lives with grand daughter (13 year old) 1 dog Smoking status: Never smoker Second hand tobacco smoke exposure: Yes Alcohol intake: former Drinks per week: 2 Substance use: current Substance use type: marijuana and crack/cocaine Other substance usage details: once in while, last used 2 weeks ago Do You Feel Safe in your Home?: Yes Lack of Transportation: No Lack of Food: Never True Current Housing: I Have Housing Concerned About Future Housing: No Difficulty Paying Gas/Electric Bills: No Difficulty Paying for Meds: No Currently Unemployed: No Education: High School Diploma/GED Difficulty w/ Childcare or Family Care: No Spiritual care concerns: No Meds Home Medications and Allergies Home Medications ?Medication ?Instructions ?Recorded ?Confirmed ?Type aspirin 81 mg chewable tablet 81 mg PO DAILY 08/23/24 12/15/24 History cholecalciferol (vitamin D3) 50 2,000 unit PO DAILY 08/23/24 12/15/24 History mcg (2,000 unit) capsule furosemide 40 mg tablet 40 mg PO DAILY #30 tabs 08/28/24 12/15/24 Rx metoprolol succinate 100 mg 100 mg PO QAM #60 tabs 08/28/24 12/15/24 Rx tablet,extended release 24 hr (Toprol XL) potassium chloride 20 mEq oral 20 meq PO DAILY #30 ea 08/28/24 12/15/24 Rx packet rosuvastatin 20 mg tablet (Crestor) 10 mg (1/2 x 20 mg) PO HS #30 tabs 08/28/24 12/15/24 Rx empagliflozin 10 mg tablet 10 mg PO DAILY #30 tabs 10/22/24 12/15/24 Rx sacubitril 24 mg-valsartan 26 mg 1 tab PO Q12HR #30 tabs 10/22/24 12/15/24 Rx tablet (Entresto) Allergies Allergy/AdvReac Type Severity Reaction Status Date / Time No Known Drug Allergies Allergy Other Verified 12/05/24 17:47 Vital Signs Vital Signs - 24 hr 12/16/24 09:55 12/16/24 12:00 12/16/24 13:45 Temperature Pulse Rate 92 93 91 Respiratory Rate 18 Blood Pressure Pulse Oximetry Oxygen Delivery Oxygen Flow Rate Fraction of Inspired Oxygen 12/16/24 14:00 12/16/24 14:00 12/16/24 16:00 Temperature 36.2 C L Pulse Rate 90 91 93 Respiratory Rate 18 18 Blood Pressure 100/75 Pulse Oximetry 97 Oxygen Delivery Oxygen Flow Rate Fraction of Inspired Oxygen 12/16/24 19:44 12/16/24 19:54 12/16/24 20:00 Temperature Pulse Rate 93 93 91 Respiratory Rate 20 20 Blood Pressure Pulse Oximetry Oxygen Delivery Oxygen Flow Rate Fraction of Inspired Oxygen 12/16/24 21:05 12/16/24 21:28 12/16/24 21:45 Temperature 36.4 C Pulse Rate 58 L Respiratory Rate 20 Blood Pressure 84/45 L Pulse Oximetry 93 91 91 Oxygen Delivery Nasal Cannula Nasal Cannula Oxygen Flow Rate 2 3 Fraction of Inspired Oxygen 12/16/24 23:25 12/17/24 00:00 12/17/24 00:15 Temperature Pulse Rate 131 H 138 H 137 H Respiratory Rate 18 16 Blood Pressure Pulse Oximetry 100 Oxygen Delivery Mechanical Ventilation Oxygen Flow Rate Fraction of Inspired Oxygen 100 12/17/24 00:15 12/17/24 00:15 12/17/24 00:30 Temperature 36.9 C Pulse Rate 137 H 137 H 94 Respiratory Rate 16 16 16 Blood Pressure 122/81 90/63 L Pulse Oximetry 98 97 Oxygen Delivery Oxygen Flow Rate Fraction of Inspired Oxygen 12/17/24 00:30 12/17/24 00:30 12/17/24 00:45 Temperature 37.3 C Pulse Rate 91 Respiratory Rate 16 Blood Pressure 86/62 L Pulse Oximetry 97 97 Oxygen Delivery Mechanical Ventilation Oxygen Flow Rate Fraction of Inspired Oxygen 100 100 12/17/24 01:00 12/17/24 01:00 12/17/24 01:00 Temperature 37.3 C 37.3 C Pulse Rate 138 H 91 91 Respiratory Rate 20 20 Blood Pressure 89/62 L Pulse Oximetry 100 98 Oxygen Delivery Mechanical Ventilation Oxygen Flow Rate Fraction of Inspired Oxygen 100 12/17/24 01:01 12/17/24 01:15 12/17/24 01:15 Temperature 37.3 C 37.3 C Pulse Rate 91 92 92 Respiratory Rate 20 20 Blood Pressure 89/62 L 73/54 L Pulse Oximetry Oxygen Delivery Oxygen Flow Rate Fraction of Inspired Oxygen 12/17/24 01:16 12/17/24 01:29 12/17/24 01:30 Temperature 37.3 C 37.2 C Pulse Rate 92 91 91 Respiratory Rate 20 15 16 Blood Pressure 73/54 L 75/41 L Pulse Oximetry Oxygen Delivery Oxygen Flow Rate Fraction of Inspired Oxygen 12/17/24 01:30 12/17/24 01:30 12/17/24 01:31 Temperature 37.2 C 37.2 C Pulse Rate 91 91 91 Respiratory Rate 16 17 20 Blood Pressure 84/63 L Pulse Oximetry 100 Oxygen Delivery Oxygen Flow Rate Fraction of Inspired Oxygen 12/17/24 01:43 12/17/24 01:45 12/17/24 01:45 Temperature 37.2 C 37.2 C Pulse Rate 91 91 91 Respiratory Rate 16 13 Blood Pressure 91/71 L 105/72 Pulse Oximetry Oxygen Delivery Oxygen Flow Rate Fraction of Inspired Oxygen 12/17/24 01:46 12/17/24 01:59 12/17/24 02:00 Temperature 37.2 C 37.2 C Pulse Rate 91 91 Respiratory Rate 20 20 Blood Pressure 105/72 100/69 Pulse Oximetry 100 Oxygen Delivery Oxygen Flow Rate Fraction of Inspired Oxygen 100 12/17/24 02:00 12/17/24 02:01 12/17/24 02:05 Temperature 37.2 C 37.2 C Pulse Rate 91 91 91 Respiratory Rate 20 18 16 Blood Pressure 100/69 Pulse Oximetry Oxygen Delivery Oxygen Flow Rate Fraction of Inspired Oxygen 12/17/24 02:05 12/17/24 02:06 12/17/24 02:15 Temperature 37.3 C Pulse Rate 91 91 91 Respiratory Rate 16 15 Blood Pressure 100/69 Pulse Oximetry Oxygen Delivery Oxygen Flow Rate Fraction of Inspired Oxygen 12/17/24 02:16 12/17/24 02:30 12/17/24 02:31 Temperature 37.3 C 37.3 C 37.2 C Pulse Rate 91 91 91 Respiratory Rate 8 L 9 L 10 L Blood Pressure 98/71 L 99/67 L Pulse Oximetry Oxygen Delivery Oxygen Flow Rate Fraction of Inspired Oxygen 12/17/24 02:45 12/17/24 02:46 12/17/24 03:00 Temperature 37.2 C 37.2 C 37.2 C Pulse Rate 91 91 91 Respiratory Rate 20 20 20 Blood Pressure 104/70 Pulse Oximetry 100 Oxygen Delivery Oxygen Flow Rate Fraction of Inspired Oxygen 12/17/24 03:00 12/17/24 03:00 12/17/24 03:01 Temperature 37.2 C Pulse Rate 92 93 91 Respiratory Rate 20 18 Blood Pressure 106/73 Pulse Oximetry 97 100 Oxygen Delivery Mechanical Ventilation Oxygen Flow Rate Fraction of Inspired Oxygen 80 12/17/24 03:10 12/17/24 03:15 12/17/24 03:16 Temperature 37.2 C 37.2 C Pulse Rate 93 92 92 Respiratory Rate 20 20 20 Blood Pressure 106/80 Pulse Oximetry 100 100 Oxygen Delivery Oxygen Flow Rate Fraction of Inspired Oxygen 12/17/24 03:21 12/17/24 03:30 12/17/24 03:31 Temperature 37.2 C 37.2 C 37.2 C Pulse Rate 92 92 92 Respiratory Rate 20 20 20 Blood Pressure 106/80 106/74 Pulse Oximetry 99 99 100 Oxygen Delivery Oxygen Flow Rate Fraction of Inspired Oxygen 12/17/24 03:45 12/17/24 03:46 12/17/24 04:00 Temperature 37.2 C 37.2 C Pulse Rate 92 89 Respiratory Rate 20 20 Blood Pressure 99/80 L Pulse Oximetry 99 100 Oxygen Delivery Oxygen Flow Rate Fraction of Inspired Oxygen 80 12/17/24 04:00 12/17/24 04:00 12/17/24 04:00 Temperature 37.2 C Pulse Rate 91 91 Respiratory Rate 20 20 Blood Pressure 102/75 Pulse Oximetry 100 100 Oxygen Delivery Mechanical Ventilation Oxygen Flow Rate Fraction of Inspired Oxygen 80 12/17/24 04:00 12/17/24 04:00 12/17/24 04:03 Temperature 37.2 C Pulse Rate 91 91 91 Respiratory Rate 20 20 Blood Pressure 102/75 102/75 Pulse Oximetry 100 Oxygen Delivery Oxygen Flow Rate Fraction of Inspired Oxygen 12/17/24 04:04 12/17/24 04:15 12/17/24 04:16 Temperature 37.2 C 37.2 C 37.2 C Pulse Rate 91 92 92 Respiratory Rate 20 20 20 Blood Pressure 102/76 Pulse Oximetry 100 100 100 Oxygen Delivery Oxygen Flow Rate Fraction of Inspired Oxygen 12/17/24 04:26 12/17/24 04:30 12/17/24 04:31 Temperature 37.1 C 37.1 C Pulse Rate 92 92 92 Respiratory Rate 20 20 Blood Pressure 96/67 L Pulse Oximetry 100 99 99 Oxygen Delivery Mechanical Ventilation Oxygen Flow Rate Fraction of Inspired Oxygen 70 12/17/24 04:45 12/17/24 04:46 12/17/24 05:00 Temperature 37.2 C 37.2 C 37.2 C Pulse Rate 92 92 81 Respiratory Rate 16 20 16 Blood Pressure 109/76 Pulse Oximetry 99 99 99 Oxygen Delivery Oxygen Flow Rate Fraction of Inspired Oxygen 12/17/24 05:01 12/17/24 05:11 12/17/24 05:15 Temperature 37.2 C 37.2 C Pulse Rate 92 91 92 Respiratory Rate 13 15 Blood Pressure 96/69 L Pulse Oximetry 99 99 Oxygen Delivery Oxygen Flow Rate Fraction of Inspired Oxygen 12/17/24 05:16 12/17/24 05:30 12/17/24 05:30 Temperature 37.2 C 37.2 C Pulse Rate 92 92 92 Respiratory Rate 12 20 20 Blood Pressure 104/75 Pulse Oximetry 99 99 Oxygen Delivery Oxygen Flow Rate Fraction of Inspired Oxygen 12/17/24 05:31 12/17/24 05:32 12/17/24 06:00 Temperature 37.2 C Pulse Rate 92 92 93 Respiratory Rate 20 20 20 Blood Pressure 105/76 103/75 Pulse Oximetry 99 99 Oxygen Delivery Oxygen Flow Rate Fraction of Inspired Oxygen 12/17/24 06:00 12/17/24 06:00 12/17/24 06:00 Temperature Pulse Rate 93 93 93 Respiratory Rate 20 20 Blood Pressure 103/75 Pulse Oximetry Oxygen Delivery Oxygen Flow Rate Fraction of Inspired Oxygen 12/17/24 07:00 12/17/24 08:00 12/17/24 08:27 Temperature 37.3 C 37.4 C Pulse Rate 93 94 94 Respiratory Rate 20 20 20 Blood Pressure 104/77 104/75 Pulse Oximetry 99 99 Oxygen Delivery Oxygen Flow Rate Fraction of Inspired Oxygen Exam 2 Narrative: General: Pt is sedated, intubated and on mechanical ventilation Lungs/Chest: Trachea central Coarse BS B/L, breath sounds are decreased on bases. Cardiac: RRR. Normal S1 S2. Systolic murmur 3/6 present Circulation: Pedal pulses are intact and symmetrical. Abdomen: Decreased bowel sounds. Obese. Soft. NT. ND. Extremities: Bilateral pitting edema present : [place] in place Neurologic: Unable to assess due to sedation. Moves all 4 extremities to painful stimuli. PERRL Results Labs 12/17/24 04:27 12/17/24 04:27 Labs: Impressions Chest CTA 12/16/24 13:43 IMPRESSION: No pulmonary embolus. No thoracic aortic dissection. Findings suggesting congestive failure, with large bilateral pleural effusions and intra-abdominal ascites. Chest X-Ray 12/17/24 06:24 IMPRESSION: Bilateral pleural effusions, large on the left and small on the right with mild pulmonary vascular congestion. Endotracheal tube in good position. Chest X-Ray 12/17/24 06:45 IMPRESSION: Large left and small right-sided pleural effusion with mild pulmonary vascular congestion Supportive lines and tubes in good position and ready for immediate use. Chest X-Ray 12/17/24 07:05 IMPRESSION: Large left and increasing right-sided pleural effusion, with mild pulmonary vascular congestion. The bilateral lung apices only are clear. Supportive lines and tubes in good position, as detailed above. Abdomen X-Ray 12/17/24 07:07 IMPRESSION: Orogastric tube in good position and ready for immediate use. Remainder of examination is unchanged Head CT 12/17/24 07:09 Impression: No acute intracranial hemorrhage or suspicious mass effect. Chest/Abdomen/Pelvis CTA 12/17/24 07:41 IMPRESSION: No pulmonary embolus. No aortic dissection. Increasing bilateral pleural effusions with adjacent compressive atelectasis. Rim-enhancing fluid collection along the anterior abdominal wall measuring denser than simple fluid for which a perioperative seroma versus abscess (less likely) is suspected. Focused ultrasound may be performed for further evaluation. Short CBC 12/17/24 12/17/24 Range/Units 00:28 04:27 WBC 12.1 H 12.8 H (4.5-10.0) K/mm3 Hgb 11.8 L 10.6 L (14.0-18.0) g/dL Hct 39.8 L 34.9 L (42.0-52.0) % Plt Count 234 230 (150-375) k/mm3 BMP 12/17/24 04:27 Sodium 138 Potassium 4.3 Chloride 97 L Carbon Dioxide 33 H BUN 33 H D Creatinine 1.09 Glucose 111 H Calcium 8.3 L Cardiac Enzymes 12/17/24 Range/Units 00:28 Troponin I 0.173 H* (0.000-0.034) ng/mL Liver Function 12/17/24 Range/Units 04:27 Total Bilirubin 0.9 (0.2-1.3) mg/dL AST 95 H (17-59) U/L ALT 59 H (6-50) U/L Alkaline Phosphatase 75 (38-126) U/L Albumin 3.4 L (3.5-5.1) g/dL Quality VTE Prophylaxis VTE prophylaxis: pharmacologic ordered Hospitalist MIPS Advance Care Plan I have confirmed that the patient's Advanced Care Plan is present, code status is documented, or surrogate decision maker is listed in patient medical record.: Yes Medication Reconciliation I have utilized all available resources to obtain, update and review the patients current medications (includes all prescriptions, OTC, herbals, cannabis, and nutritional supplements).: Yes
[2024-12-17] MEDS: PERFLUTREN LIPID MICROSPHERES 1.5 ML VIAL DILUTED TO 10 ML TOTAL VOLUME IV PUSH (08:45)
[2024-12-17] MEDS: MINERAL OIL/WHITE PETROLATUM OINTMENT 1 APPLIC EACH EYE ×2 (09:01→21:05)
[2024-12-17] MEDS: FUROSEMIDE INJ 40 MG/4 ML VIAL IV PUSH ×2 (09:01→21:05)
[2024-12-17] MEDS: ENOXAPARIN 40 MG/0.4 ML SYRINGE SUB-Q (09:01)
[2024-12-17] MEDS: PANTOPRAZOLE SODIUM IV 40 MG VIAL IV PUSH (09:01)
[2024-12-17] MEDS: EMPAGLIFLOZIN 10 MG TABLET PO (09:01)
[2024-12-17] MEDS: ROSUVASTATIN 10 MG TABLET PO (09:02)
[2024-12-17] MEDS: ASPIRIN 81 MG CHEWABLE TABLET PO (09:02)
[2024-12-17] MEDS: PIPERACILLN/TAZ 3.375GM/NS50ML 3.375 GM/50 ML BAG IVPB ×3 (09:34→21:05)
--- NOTE | 2024-12-17 09:37 | IVDEFINITY ---
Prior to administration of IV Definity the patient was educated on the risks and benefits of the imaging enhancing agent including potential adverse side effects. The patient verbalized understanding. Allergies were verified. No exclusion criteria were identified and at least one of the following inclusion criteria were met: 1) physician request, 2) patient technically difficult to image (per the [place] [employer] guidelines of two or more segments not discernable within the apical view), or 3) questionable left ventricular function. ?
[2024-12-17 09:47] LABS: Procalcitonin 0.4 ng/mL
[2024-12-17 09:50] LABS: Add Urine Microscopic? YES; Appearance Urine Clear (Clear); Glucose Urine UA Negative (Negative); Leukocyte Esterase Ur 1+ LEU/UL (Negative); Need Manual Microscopic Reviewed; Nitrate Urine Negative (Negative); Non Pathogenic Casts 0-2; Specific Grav Ur 1.017 (1.001-1.035)
[2024-12-17] MEDS: MIDAZOLAM 100MG/NS 100ML(*CRX) 100 MG/100 ML BAG IV CONT (13:37)
--- NOTE | 2024-12-17 13:48 | P.PNCA_ITS ---
Progress Note: A&P Assessment and Plan (1) Acute exacerbation of CHF (congestive heart failure): Code(s): I50.9 - Heart failure, unspecified Status: Acute Plan Acute on chronic systolic heart failure Acute hypoxemic respiratory failure secondary to CHF Severe mitral regurgitation Severe pulmonary hypertension Plan IV diuresis: goal -ve 2 to 3 L Entresto DC beta-garret Consider RODERICK for evaluation of mitral regurgitation Watch kidney function electrolytes Subjective Date/time seen: 12/17/24 13:48 Interval history: Status post cardiac arrest and intubation Review of Systems Review of Systems: ROS unobtainable: Yes unobtainable due to endotracheal tube Exam Narrative: General: Pt is sedated, intubated and on mechanical ventilation Lungs/Chest: Trachea central Coarse BS B/L, breath sounds are decreased on bases. Cardiac: RRR. Normal S1 S2. Systolic murmur 3/6 present Circulation: Pedal pulses are intact and symmetrical. Abdomen: Decreased bowel sounds. Obese. Soft. NT. ND. Extremities: Bilateral pitting edema present : [place] in place Neurologic: Unable to assess due to sedation. Moves all 4 extremities to painful stimuli. PERRL Objective Data Vital Signs Vital Signs: Vital Signs - 24 hr 12/16/24 14:00 12/16/24 14:00 12/16/24 16:00 Temperature 36.2 C L Pulse Rate 90 91 93 Respiratory Rate 18 18 Blood Pressure 100/75 Pulse Oximetry 97 Oxygen Delivery Oxygen Flow Rate Fraction of Inspired Oxygen 12/16/24 19:44 12/16/24 19:54 12/16/24 20:00 Temperature Pulse Rate 93 93 91 Respiratory Rate 20 20 Blood Pressure Pulse Oximetry Oxygen Delivery Oxygen Flow Rate Fraction of Inspired Oxygen 12/16/24 21:05 12/16/24 21:28 12/16/24 21:45 Temperature 36.4 C Pulse Rate 58 L Respiratory Rate 20 Blood Pressure 84/45 L Pulse Oximetry 93 91 91 Oxygen Delivery Nasal Cannula Nasal Cannula Oxygen Flow Rate 2 3 Fraction of Inspired Oxygen 12/16/24 23:25 12/17/24 00:00 12/17/24 00:15 Temperature Pulse Rate 131 H 138 H 137 H Respiratory Rate 18 16 Blood Pressure Pulse Oximetry 100 Oxygen Delivery Mechanical Ventilation Oxygen Flow Rate Fraction of Inspired Oxygen 100 12/17/24 00:15 12/17/24 00:15 12/17/24 00:30 Temperature 36.9 C Pulse Rate 137 H 137 H 94 Respiratory Rate 16 16 16 Blood Pressure 122/81 90/63 L Pulse Oximetry 98 97 Oxygen Delivery Oxygen Flow Rate Fraction of Inspired Oxygen 12/17/24 00:30 12/17/24 00:30 12/17/24 00:45 Temperature 37.3 C Pulse Rate 91 Respiratory Rate 16 Blood Pressure 86/62 L Pulse Oximetry 97 97 Oxygen Delivery Mechanical Ventilation Oxygen Flow Rate Fraction of Inspired Oxygen 100 100 12/17/24 01:00 12/17/24 01:00 12/17/24 01:00 Temperature 37.3 C 37.3 C Pulse Rate 138 H 91 91 Respiratory Rate 20 20 Blood Pressure 89/62 L Pulse Oximetry 100 98 Oxygen Delivery Mechanical Ventilation Oxygen Flow Rate Fraction of Inspired Oxygen 100 12/17/24 01:01 12/17/24 01:15 12/17/24 01:15 Temperature 37.3 C 37.3 C Pulse Rate 91 92 92 Respiratory Rate 20 20 Blood Pressure 89/62 L 73/54 L Pulse Oximetry Oxygen Delivery Oxygen Flow Rate Fraction of Inspired Oxygen 12/17/24 01:16 12/17/24 01:29 12/17/24 01:30 Temperature 37.3 C 37.2 C Pulse Rate 92 91 91 Respiratory Rate 20 15 16 Blood Pressure 73/54 L 75/41 L Pulse Oximetry Oxygen Delivery Oxygen Flow Rate Fraction of Inspired Oxygen 12/17/24 01:30 12/17/24 01:30 12/17/24 01:31 Temperature 37.2 C 37.2 C Pulse Rate 91 91 91 Respiratory Rate 16 17 20 Blood Pressure 84/63 L Pulse Oximetry 100 Oxygen Delivery Oxygen Flow Rate Fraction of Inspired Oxygen 12/17/24 01:43 12/17/24 01:45 12/17/24 01:45 Temperature 37.2 C 37.2 C Pulse Rate 91 91 91 Respiratory Rate 16 13 Blood Pressure 91/71 L 105/72 Pulse Oximetry Oxygen Delivery Oxygen Flow Rate Fraction of Inspired Oxygen 12/17/24 01:46 12/17/24 01:59 12/17/24 02:00 Temperature 37.2 C 37.2 C Pulse Rate 91 91 Respiratory Rate 20 20 Blood Pressure 105/72 100/69 Pulse Oximetry 100 Oxygen Delivery Oxygen Flow Rate Fraction of Inspired Oxygen 100 12/17/24 02:00 12/17/24 02:01 12/17/24 02:05 Temperature 37.2 C 37.2 C Pulse Rate 91 91 91 Respiratory Rate 20 18 16 Blood Pressure 100/69 Pulse Oximetry Oxygen Delivery Oxygen Flow Rate Fraction of Inspired Oxygen 12/17/24 02:05 12/17/24 02:06 12/17/24 02:15 Temperature 37.3 C Pulse Rate 91 91 91 Respiratory Rate 16 15 Blood Pressure 100/69 Pulse Oximetry Oxygen Delivery Oxygen Flow Rate Fraction of Inspired Oxygen 12/17/24 02:16 12/17/24 02:30 12/17/24 02:31 Temperature 37.3 C 37.3 C 37.2 C Pulse Rate 91 91 91 Respiratory Rate 8 L 9 L 10 L Blood Pressure 98/71 L 99/67 L Pulse Oximetry Oxygen Delivery Oxygen Flow Rate Fraction of Inspired Oxygen 12/17/24 02:45 12/17/24 02:46 12/17/24 03:00 Temperature 37.2 C 37.2 C 37.2 C Pulse Rate 91 91 91 Respiratory Rate 20 20 20 Blood Pressure 104/70 Pulse Oximetry 100 Oxygen Delivery Oxygen Flow Rate Fraction of Inspired Oxygen 12/17/24 03:00 12/17/24 03:00 12/17/24 03:01 Temperature 37.2 C Pulse Rate 92 93 91 Respiratory Rate 20 18 Blood Pressure 106/73 Pulse Oximetry 97 100 Oxygen Delivery Mechanical Ventilation Oxygen Flow Rate Fraction of Inspired Oxygen 80 12/17/24 03:10 12/17/24 03:15 12/17/24 03:16 Temperature 37.2 C 37.2 C Pulse Rate 93 92 92 Respiratory Rate 20 20 20 Blood Pressure 106/80 Pulse Oximetry 100 100 Oxygen Delivery Oxygen Flow Rate Fraction of Inspired Oxygen 12/17/24 03:21 12/17/24 03:30 12/17/24 03:31 Temperature 37.2 C 37.2 C 37.2 C Pulse Rate 92 92 92 Respiratory Rate 20 20 20 Blood Pressure 106/80 106/74 Pulse Oximetry 99 99 100 Oxygen Delivery Oxygen Flow Rate Fraction of Inspired Oxygen 12/17/24 03:45 12/17/24 03:46 12/17/24 04:00 Temperature 37.2 C 37.2 C Pulse Rate 92 89 Respiratory Rate 20 20 Blood Pressure 99/80 L Pulse Oximetry 99 100 Oxygen Delivery Oxygen Flow Rate Fraction of Inspired Oxygen 80 12/17/24 04:00 12/17/24 04:00 12/17/24 04:00 Temperature 37.2 C Pulse Rate 91 91 Respiratory Rate 20 20 Blood Pressure 102/75 Pulse Oximetry 100 100 Oxygen Delivery Mechanical Ventilation Oxygen Flow Rate Fraction of Inspired Oxygen 80 12/17/24 04:00 12/17/24 04:00 12/17/24 04:03 Temperature 37.2 C Pulse Rate 91 91 91 Respiratory Rate 20 20 Blood Pressure 102/75 102/75 Pulse Oximetry 100 Oxygen Delivery Oxygen Flow Rate Fraction of Inspired Oxygen 12/17/24 04:04 12/17/24 04:15 12/17/24 04:16 Temperature 37.2 C 37.2 C 37.2 C Pulse Rate 91 92 92 Respiratory Rate 20 20 20 Blood Pressure 102/76 Pulse Oximetry 100 100 100 Oxygen Delivery Oxygen Flow Rate Fraction of Inspired Oxygen 12/17/24 04:26 12/17/24 04:30 12/17/24 04:31 Temperature 37.1 C 37.1 C Pulse Rate 92 92 92 Respiratory Rate 20 20 Blood Pressure 96/67 L Pulse Oximetry 100 99 99 Oxygen Delivery Mechanical Ventilation Oxygen Flow Rate Fraction of Inspired Oxygen 70 12/17/24 04:45 12/17/24 04:46 12/17/24 05:00 Temperature 37.2 C 37.2 C 37.2 C Pulse Rate 92 92 81 Respiratory Rate 16 20 16 Blood Pressure 109/76 Pulse Oximetry 99 99 99 Oxygen Delivery Oxygen Flow Rate Fraction of Inspired Oxygen 12/17/24 05:01 12/17/24 05:11 12/17/24 05:15 Temperature 37.2 C 37.2 C Pulse Rate 92 91 92 Respiratory Rate 13 15 Blood Pressure 96/69 L Pulse Oximetry 99 99 Oxygen Delivery Oxygen Flow Rate Fraction of Inspired Oxygen 12/17/24 05:16 12/17/24 05:30 12/17/24 05:30 Temperature 37.2 C 37.2 C Pulse Rate 92 92 92 Respiratory Rate 12 20 20 Blood Pressure 104/75 Pulse Oximetry 99 99 Oxygen Delivery Oxygen Flow Rate Fraction of Inspired Oxygen 12/17/24 05:31 12/17/24 05:32 12/17/24 06:00 Temperature 37.2 C Pulse Rate 92 92 93 Respiratory Rate 20 20 20 Blood Pressure 105/76 103/75 Pulse Oximetry 99 99 Oxygen Delivery Oxygen Flow Rate Fraction of Inspired Oxygen 12/17/24 06:00 12/17/24 06:00 12/17/24 06:00 Temperature Pulse Rate 93 93 93 Respiratory Rate 20 20 Blood Pressure 103/75 Pulse Oximetry Oxygen Delivery Oxygen Flow Rate Fraction of Inspired Oxygen 12/17/24 07:00 12/17/24 08:00 12/17/24 08:00 Temperature 37.3 C 37.4 C Pulse Rate 93 94 93 Respiratory Rate 20 20 20 Blood Pressure 104/77 104/75 Pulse Oximetry 99 99 Oxygen Delivery Oxygen Flow Rate Fraction of Inspired Oxygen 12/17/24 08:00 12/17/24 08:00 12/17/24 08:00 Temperature Pulse Rate 93 93 Respiratory Rate 20 Blood Pressure 104/75 Pulse Oximetry 99 Oxygen Delivery Mechanical Ventilation Oxygen Flow Rate Fraction of Inspired Oxygen 60 12/17/24 08:00 12/17/24 08:00 12/17/24 08:25 Temperature Pulse Rate 94 94 Respiratory Rate Blood Pressure Pulse Oximetry 97 Oxygen Delivery Mechanical Ventilation Oxygen Flow Rate Fraction of Inspired Oxygen 60 60 12/17/24 08:27 12/17/24 08:40 12/17/24 10:00 Temperature Pulse Rate 94 94 95 Respiratory Rate 20 20 20 Blood Pressure Pulse Oximetry Oxygen Delivery Oxygen Flow Rate Fraction of Inspired Oxygen 12/17/24 10:00 12/17/24 10:00 12/17/24 10:00 Temperature Pulse Rate 95 95 95 Respiratory Rate 20 Blood Pressure 100/74 Pulse Oximetry Oxygen Delivery Oxygen Flow Rate Fraction of Inspired Oxygen 12/17/24 10:00 12/17/24 10:00 12/17/24 11:03 Temperature 37.2 C 37.2 C Pulse Rate 95 95 95 Respiratory Rate 20 20 Blood Pressure 100/74 100/74 Pulse Oximetry 98 98 98 Oxygen Delivery Mechanical Ventilation Oxygen Flow Rate Fraction of Inspired Oxygen 60 12/17/24 12:00 12/17/24 12:00 12/17/24 12:00 Temperature Pulse Rate 95 Respiratory Rate Blood Pressure Pulse Oximetry 96 Oxygen Delivery Mechanical Ventilation Oxygen Flow Rate Fraction of Inspired Oxygen 60 60 12/17/24 12:00 12/17/24 12:00 12/17/24 12:00 Temperature Pulse Rate 95 95 95 Respiratory Rate 20 20 Blood Pressure 105/81 Pulse Oximetry Oxygen Delivery Oxygen Flow Rate Fraction of Inspired Oxygen 12/17/24 12:00 12/17/24 13:37 12/17/24 13:37 Temperature 37.5 C Pulse Rate 95 96 96 Respiratory Rate 20 20 20 Blood Pressure 105/81 Pulse Oximetry 97 Oxygen Delivery Oxygen Flow Rate Fraction of Inspired Oxygen Intake/Output Intake/Output: Intake & Output 12/14/24 12/15/24 12/16/24 12/17/24 23:59 23:59 23:59 23:59 Intake Total 300 1420 1270 369.5 Output Total 3200 900 1000 125 Balance -2900 520 270 244.5 Meds/Results Medications: Active Medications Generic Name Dose Route Start Last Admin Trade Name Freq PRN Reason Stop Dose Admin Acetaminophen 650 mg 12/14/24 20:56 Acetaminophen 325 Mg Tablet PO Q4H PRN Mild Pain (1-3) or Fever Albuterol 2.5 mg 12/14/24 21:44 Albuterol Sulfate Neb 2.5 Mg/3 Ml Inh INHALATION Q4HRT PRN Shortness Of Breath Or Wheezing Albuterol/Ipratropium 3 ml 12/15/24 02:00 12/17/24 09:30 Ipratropium 0.5 Mg/Albuterol Sulfate 2.5 Mg Ampul.Neb 3 Ml INHALATION Not Given Q6HRT REJI Aspirin 81 mg 12/17/24 09:00 12/17/24 09:02 Aspirin 81 Mg Chewable Tablet PO 81 mg DAILY REJI Administration Dextrose 12.5 gm 12/17/24 08:17 Dextrose 50% 25 Gm/50 Ml Syringe IV PUSH PRN PRN Hypoglycemia Protocol Empagliflozin 10 mg 12/15/24 09:00 12/17/24 09:01 Empagliflozin 10 Mg Tablet PO 10 mg DAILY REJI Administration Enoxaparin Sodium 40 mg 12/15/24 09:00 12/17/24 09:01 Enoxaparin 40 Mg/0.4 Ml Syringe SUB-Q 40 mg DAILY REJI Administration Furosemide 40 mg 12/15/24 09:00 12/17/24 09:01 Furosemide Inj 40 Mg/4 Ml Vial IV PUSH 40 mg Q12HR REJI Administration Glucagon 1 mg 12/17/24 08:17 Glucagon For Inj 1 Mg Vial IM PRN PRN Hypoglycemia Protocol Glucose 15 gm 12/17/24 08:17 Glucose Oral Gel 15 Gm Of Glucse In 37.5 Gm Tube PO PRN PRN Hypoglycemia Protocol Azithromycin 500 mg in 250 mls @ 250 mls/hr 12/15/24 22:00 12/16/24 22:17 Zithromax IVPB 250 mls/hr Q24H REJI Administration Fentanyl Citrate 2,500 mcg in 250 mls @ 10 mls/hr 12/17/24 00:05 12/17/24 12:00 Fentanyl 2,500 Mcg/Ns 250 Ml IV CONT 100 mcg/hr .Q25H REJI 10 mls/hr Titration Protocol 100 MCG/HR Midazolam HCl 100 mg in 100 mls @ 5 mls/hr 12/17/24 00:05 12/17/24 13:37 Versed 100 Mg/Ns 100 Ml IV CONT 5 mg/hr .Q20H REJI 5 mls/hr Administration Protocol 5 MG/HR Norepinephrine Bitartrate 8 mg in 250 mls @ 9.375 mls/hr 12/17/24 01:05 12/17/24 12:00 Levophed 8 Mg/D5w 250 Ml IV CONT 5 mcg/min .Q24H REJI 9.38 mls/hr Titration Protocol 5 MCG/MIN Dextrose 1,000 mls @ 100 mls/hr 12/17/24 08:17 Dextrose 5% 1,000 Ml IVPB PRN PRN Hypoglycemia Protocol Piperacillin/Tazobactam/Dextrose 3.375 gm in 50 mls @ 100 mls/hr 12/17/24 09:00 12/17/24 10:08 Zosyn 3.375 Gm/Ns 50 Ml IVPB Infused Q6H REIJ Infusion Insulin Aspart 3 - 6 units 12/17/24 12:00 12/17/24 12:29 Insulin Aspart (*Bkc) 100 Units/Ml SUB-Q Not Given Q6HR [facility] Protocol Multi-Ingred Cream/Lotion/Oil/Oint 1 applic 12/17/24 09:00 12/17/24 09:01 Mineral Oil/White Petrolatum Ointment EACH EYE 1 applic Q12HR REJI Administration Pantoprazole Sodium 40 mg 12/17/24 09:00 12/17/24 09:01 Pantoprazole Sodium Iv 40 Mg Vial IV PUSH 40 mg DAILY REJI Administration Rosuvastatin Calcium 10 mg 12/15/24 09:00 12/17/24 09:02 Rosuvastatin 10 Mg Tablet PO 10 mg QAM REJI Administration Sacubitril/Valsartan 1 tab 12/15/24 09:00 12/16/24 21:45 Sacubitril/Valsartan 24-26 Mg Tablet PO 1 tab Q12HR REJI Administration Sodium Chloride 10 ml 12/17/24 06:00 12/17/24 13:38 Central Line Flush IV PUSH 10 ml Q8HR REJI Administration Sodium Chloride 20 ml 12/17/24 00:03 Central Line Flush IV PUSH PRN PRN after blood draws Sodium Chloride 10 ml 12/17/24 06:00 12/17/24 13:38 Central Line Flush IV PUSH 10 ml Q8HR REJI Administration Sodium Chloride 20 ml 12/17/24 00:05 12/17/24 04:39 Central Line Flush IV PUSH 20 ml PRN PRN Administration after blood draws Radiology Results: ITS Impressions Chest CTA 12/16/24 13:43 IMPRESSION: No pulmonary embolus. No thoracic aortic dissection. Findings suggesting congestive failure, with large bilateral pleural effusions and intra-abdominal ascites. Chest X-Ray 12/17/24 07:05 IMPRESSION: Large left and increasing right-sided pleural effusion, with mild pulmonary vascular congestion. The bilateral lung apices only are clear. Supportive lines and tubes in good position, as detailed above. Abdomen X-Ray 12/17/24 07:07 IMPRESSION: Orogastric tube in good position and ready for immediate use. Remainder of examination is unchanged Head CT 12/17/24 07:09 Impression: No acute intracranial hemorrhage or suspicious mass effect. Chest/Abdomen/Pelvis CTA 12/17/24 07:41 IMPRESSION: No pulmonary embolus. No aortic dissection. Increasing bilateral pleural effusions with adjacent compressive atelectasis. Rim-enhancing fluid collection along the anterior abdominal wall measuring denser than simple fluid for which a perioperative seroma versus abscess (less likely) is suspected. Focused ultrasound may be performed for further evaluation. Labs Labs: Laboratory Results - last 24 hr 12/16/24 12/16/24 12/16/24 14:03 14:31 23:08 WBC RBC Hgb Hct MCV MCH MCHC RDW Plt Count MPV Immature Gran % (Auto) Neut % (Auto) Lymph % (Auto) [place] % (Auto) Eos % (Auto) Baso % (Auto) Lymph # (Auto) [place] # (Auto) Eos # (Auto) Baso # (Auto) Abs Immat Gran (auto) Absolute Neuts (auto) Absolute Nucleated RBC Band Neutrophils % Nucleated RBC % Platelet Estimate Hypochromasia Poikilocytosis Anisocytosis Schistocytes PT INR APTT Puncture Site Left radial ABG pH 7.449 ABG pCO2 42.4 ABG pO2 93.9 ABG PO2/FiO2 Ratio 2.93 ABG HCO3 28.7 H ABG O2 Saturation 97.4 ABG O2 Content 18.4 ABG Base Excess 4.3 A-a Gradient 84.7 Oxyhemoglobin 96.3 Carboxyhemoglobin Methemoglobin Reduced Hemoglobin Total Hemoglobin 13.5 O2 Delivery Device Nasal cannula O2 Liters/Min 3.0 Minute Volume Vent Rate Vent Mode FiO2 32 Tidal Volume PEEP Peak Inspir Pressure Pressure Support Sodium Potassium Chloride Carbon Dioxide Anion Gap BUN Creatinine Estim Creat Clear Calc Estimated GFR Glucose POC Capillary Glucose 96 99 Lactic Acid Calcium Total Bilirubin AST ALT Alkaline Phosphatase Lactate Dehydrogenase Troponin I Total Protein Albumin Procalcitonin Urine Color Urine Appearance Urine pH Ur Specific [place] Urine Protein Urine Glucose (UA) Urine Ketones Ur Blood (Man) Urine Nitrate Urine Bilirubin Urine Urobilinogen Add Ur Microanalysis Leukocyte Esterase Rfl Urine RBC Urine WBC Ur Squamous Epith Cells Urine Bacteria Urine Casts Nasal MRSA (PCR) Blood Type Antibody Screen 12/17/24 12/17/24 12/17/24 00:28 00:35 04:06 WBC 12.1 H RBC 4.67 Hgb 11.8 L Hct 39.8 L MCV 85.2 MCH 25.3 L MCHC 29.6 L RDW 17.8 H Plt Count 234 MPV 9.8 Immature Gran % (Auto) 0.4 Neut % (Auto) 75.1 H Lymph % (Auto) 15.6 L [place] % (Auto) 7.7 Eos % (Auto) 0.4 Baso % (Auto) 0.8 Lymph # (Auto) 1.88 [place] # (Auto) 0.9 H Eos # (Auto) 0.1 Baso # (Auto) 0.1 Abs Immat Gran (auto) 0.05 H Absolute Neuts (auto) 9.1 H Absolute Nucleated RBC 0.000 Band Neutrophils % Not Reportable Nucleated RBC % 0.0 Platelet Estimate Adequate Hypochromasia 1+ Poikilocytosis 1+ Anisocytosis 1+ Schistocytes Rare PT 17.2 H INR 1.4 APTT 31.1 Puncture Site Right radial Right radial ABG pH 7.256 L* 7.461 H ABG pCO2 63.9 H* 44.2 ABG pO2 72.7 L 225.3 H ABG PO2/FiO2 Ratio 0.73 2.82 ABG HCO3 27.8 H 30.8 H ABG O2 Saturation 91.9 L 99.5 ABG O2 Content 17.3 16.9 ABG Base Excess -0.7 6.3 A-a Gradient 576.4 298.7 Oxyhemoglobin 92.1 99.0 Carboxyhemoglobin 0.9 Methemoglobin 0.1 Reduced Hemoglobin 6.9 H Total Hemoglobin 13.3 11.8 L O2 Delivery Device Ventilator Ventilator O2 Liters/Min Not Reportable Not Reportable Minute Volume Not Reportable Not Reportable Vent Rate 16 20 Vent Mode Asv Cmv FiO2 100 80 Tidal Volume 450 450 PEEP 5 5 Peak Inspir Pressure Not Reportable Not Reportable Pressure Support Not Reportable Not Reportable Sodium Potassium Chloride Carbon Dioxide Anion Gap BUN Creatinine Estim Creat Clear Calc Estimated GFR Glucose POC Capillary Glucose Lactic Acid 4.2 H* Calcium Total Bilirubin AST ALT Alkaline Phosphatase Lactate Dehydrogenase Troponin I 0.173 H* Total Protein Albumin Procalcitonin Urine Color Urine Appearance Urine pH Ur Specific [place] Urine Protein Urine Glucose (UA) Urine Ketones Ur Blood (Man) Urine Nitrate Urine Bilirubin Urine Urobilinogen Add Ur Microanalysis Leukocyte Esterase Rfl Urine RBC Urine WBC Ur Squamous Epith Cells Urine Bacteria Urine Casts Nasal MRSA (PCR) Detected A* Blood Type O Positive Antibody Screen Negative 12/17/24 12/17/24 12/17/24 04:27 09:13 09:31 WBC 12.8 H RBC 4.20 L Hgb 10.6 L Hct 34.9 L MCV 83.1 MCH 25.2 L MCHC 30.4 L RDW 17.4 H Plt Count 230 MPV 9.6 Immature Gran % (Auto) 0.4 Neut % (Auto) 66.1 Lymph % (Auto) 22.0 [place] % (Auto) 10.8 H Eos % (Auto) 0.2 Baso % (Auto) 0.5 Lymph # (Auto) 2.82 [place] # (Auto) 1.4 H Eos # (Auto) 0.0 Baso # (Auto) 0.1 Abs Immat Gran (auto) 0.05 H Absolute Neuts (auto) 8.5 H Absolute Nucleated RBC 0.000 Band Neutrophils % Nucleated RBC % 0.0 Platelet Estimate Hypochromasia Poikilocytosis Anisocytosis Schistocytes PT INR APTT Puncture Site ABG pH ABG pCO2 ABG pO2 ABG PO2/FiO2 Ratio ABG HCO3 ABG O2 Saturation ABG O2 Content ABG Base Excess A-a Gradient Oxyhemoglobin Carboxyhemoglobin Methemoglobin Reduced Hemoglobin Total Hemoglobin O2 Delivery Device O2 Liters/Min Minute Volume Vent Rate Vent Mode FiO2 Tidal Volume PEEP Peak Inspir Pressure Pressure Support Sodium 138 Potassium 4.3 Chloride 97 L Carbon Dioxide 33 H Anion Gap 8 BUN 33 H D Creatinine 1.09 Estim Creat Clear Calc 47 Estimated GFR > 60 Glucose 111 H POC Capillary Glucose Lactic Acid 1.9 Calcium 8.3 L Total Bilirubin 0.9 AST 95 H ALT 59 H Alkaline Phosphatase 75 Lactate Dehydrogenase 279 H Troponin I Total Protein 6.3 Albumin 3.4 L Procalcitonin 0.4 Urine Color Yellow Urine Appearance Clear Urine pH 7.5 Ur Specific [place] 1.017 Urine Protein Negative Urine Glucose (UA) Negative Urine Ketones Negative Ur Blood (Man) Negative Urine Nitrate Negative Urine Bilirubin Negative Urine Urobilinogen 1.0 Add Ur Microanalysis Reviewed Leukocyte Esterase Rfl 1+ H Urine RBC 0-2 Urine WBC 0-5 Ur Squamous Epith Cells None seen Urine Bacteria None seen Urine Casts 0-2 Nasal MRSA (PCR) Blood Type Antibody Screen 12/17/24 12:28 WBC RBC Hgb Hct MCV MCH MCHC RDW Plt Count MPV Immature Gran % (Auto) Neut % (Auto) Lymph % (Auto) [place] % (Auto) Eos % (Auto) Baso % (Auto) Lymph # (Auto) [place] # (Auto) Eos # (Auto) Baso # (Auto) Abs Immat Gran (auto) Absolute Neuts (auto) Absolute Nucleated RBC Band Neutrophils % Nucleated RBC % Platelet Estimate Hypochromasia Poikilocytosis Anisocytosis Schistocytes PT INR APTT Puncture Site ABG pH ABG pCO2 ABG pO2 ABG PO2/FiO2 Ratio ABG HCO3 ABG O2 Saturation ABG O2 Content ABG Base Excess A-a Gradient Oxyhemoglobin Carboxyhemoglobin Methemoglobin Reduced Hemoglobin Total Hemoglobin O2 Delivery Device O2 Liters/Min Minute Volume Vent Rate Vent Mode FiO2 Tidal Volume PEEP Peak Inspir Pressure Pressure Support Sodium Potassium Chloride Carbon Dioxide Anion Gap BUN Creatinine Estim Creat Clear Calc Estimated GFR Glucose POC Capillary Glucose 89 Lactic Acid Calcium Total Bilirubin AST ALT Alkaline Phosphatase Lactate Dehydrogenase Troponin I Total Protein Albumin Procalcitonin Urine Color Urine Appearance Urine pH Ur Specific [place] Urine Protein Urine Glucose (UA) Urine Ketones Ur Blood (Man) Urine Nitrate Urine Bilirubin Urine Urobilinogen Add Ur Microanalysis Leukocyte Esterase Rfl Urine RBC Urine WBC Ur Squamous Epith Cells Urine Bacteria Urine Casts Nasal MRSA (PCR) Blood Type Antibody Screen
--- NOTE | 2024-12-17 14:14 | P.PNIM_ITS ---
Progress Note: A&P Assessment and Plan (1) Acute exacerbation of CHF (congestive heart failure): Qualifiers: Heart failure type: combined systolic and diastolic Qualified Code(s): I50.43 - Acute on chronic combined systolic (congestive) and diastolic (congestive) heart failure Code(s): I50.9 - Heart failure, unspecified Status: Acute Assessment and Plan: * As evidenced by Physical exam with pitting edema, patient's admitting not taking his diuretics or heart failure medications for at least a month and a half, new oxygen requirement, elevated BNP and chest x-ray demonstrating pulmonary edema and effusion * Continue diuresis with Lasix 40 mg IV push b.i.d. * Accurate I&O, daily weights * Restart Entresto as per cardiology's previous recommendations from October of 2024. * Restart empagliflozin also as per cardiology's previous recommendations from October 2024 * Continue Crestor, metoprolol and p.o. potassium. As we are awaiting verification and confirmation in patient's medications and dosages, will restart medications from cardiology's recommendation dosages from October of 2024 at the time of discharge. * Trend and monitor labs and vital signs for affect on renal function. * Supplemental oxygen for support * Consult cardiology * Continue IV diuresis, daily weights, I/Os * JAX hose * continue Metoprolol, Jardiance, Entresto * 12/16: Physical exam seems of improved, minimal pedal edema. Still some crackles at bilateral bases and rales in the right lower lobe, denies any shortness of breath. (2) Pneumonia: Qualifiers: Laterality: bilateral Lung location: lower lobe of lung Pneumonia type: due to unspecified organism Qualified Code(s): J18.9 - Pneumonia, unspecified organism Code(s): J18.9 - Pneumonia, unspecified organism Status: Acute Assessment and Plan: * As evidenced by chest x-ray showing right lung base pneumonia. * Rocephin and azithromycin * Q.6 hours DuoNebs, Q.4 hours p.r.n. albuterol nebs * Incentive spirometry * No changes, continue Antibiotics (3) Hyperlipidemia: Code(s): E78.5 - Hyperlipidemia, unspecified Status: Chronic Assessment and Plan: * Continue statin therapy with Crestor 10 mg p.o. HS (4) Hypertension: Qualifiers: Hypertension type: primary hypertension Qualified Code(s): I10 - Essential (primary) hypertension Code(s): I10 - Essential (primary) hypertension Status: Chronic Assessment and Plan: * Continue home medications * Trend and monitor and adjust treatment as needed. (5) Substance abuse: Code(s): F19.10 - Other psychoactive substance abuse, uncomplicated Status: Chronic Assessment and Plan: * Patient admits to using cocaine by snorting 1 week ago. * Observe for any signs or symptoms of withdrawal. (6) Noncompliance with treatment: Code(s): Z91.199 - Patient's noncompliance with other medical treatment and regimen due to unspecified reason Status: Acute Assessment and Plan: * Currently acute, however suspect chronic overall. * Counseled for need of compliance to avoid further health disparities and permanent damage to body systems. Plan patient presented with dyspnea was found to have b/l pleural effusion, and patient was diuresed with IV lasix 40MG BID however patient went to respiratory failure and patient was intubated, cardiac echo showed moderately reduced left ventricular systolic dysfunction, seen by the executive director of marketing suspect patient has acute on chronic systolic heart failure. recommended to continue to diuresed the patient. Patient is present and gave updates, patient is seen by the ekg monitor. Subjective Date/time seen: 12/17/24 14:14 Interval history: 74-year-old male patient with past medical history of HF, EMR documented AFib, substance abuse, HTN, HLP, sleep apnea, vit-D deficiency and alcoholic cirrhosis of liver with complaints of having edema to the bilateral lower extremities and dyspnea on exertion for the past couple of weeks. 12/16/2024 Patient sitting comfortably in bed at time of examination. Rapid response called last night for sudden diaphoresis and dyspnea. D-dimer 3.15, CTA ordered and pending. Lactic acid initially elevated ,4.4, but subsequently decreased to 1.4. Trop (-). Repeat BCs pending. EKG sinus, rbbb (seen previously on 12/14). Pt seen in am, denies any chest pain, SOB, n/v, or abdominal pain. States he just felt very dyspneic and sweaty last night, but feels fine right now. Will continue to monitor CTA/blood work. patient presented with dyspnea was found to have b/l pleural effusion, and patient was diuresed with IV lasix 40MG BID however patient went to respiratory failure and patient was intubated, cardiac echo showed moderately reduced left ventricular systolic dysfunction, seen by the executive director of marketing suspect patient has acute on chronic systolic heart failure. recommended to continue to diuresed the patient. Patient is present and gave updates, patient is seen by the ekg monitor. Review of Systems Review of Systems: ROS unobtainable: Yes unobtainable due to endotracheal tube Exam Narrative: Patient is comfortable, NAD HEENT: ET tube in place LUNGS:CTA HEART: RR S1S2 ABD: BS+, Soft and nontender Lower extremities: no edema SKIN: nonjaundiced Neuro: Intubated and sedated Objective Data Vital Signs Vital Signs: Vital Signs - 24 hr 12/16/24 16:00 12/16/24 19:44 12/16/24 19:54 Temperature Pulse Rate 93 93 93 Respiratory Rate 20 20 Blood Pressure Pulse Oximetry Oxygen Delivery Oxygen Flow Rate Fraction of Inspired Oxygen 12/16/24 20:00 12/16/24 21:05 12/16/24 21:28 Temperature 36.4 C Pulse Rate 91 58 L Respiratory Rate 20 Blood Pressure 84/45 L Pulse Oximetry 93 91 Oxygen Delivery Nasal Cannula Oxygen Flow Rate 2 Fraction of Inspired Oxygen 12/16/24 21:45 12/16/24 23:25 12/17/24 00:00 Temperature Pulse Rate 131 H 138 H Respiratory Rate 18 Blood Pressure Pulse Oximetry 91 100 Oxygen Delivery Nasal Cannula Mechanical Ventilation Oxygen Flow Rate 3 Fraction of Inspired Oxygen 100 12/17/24 00:15 12/17/24 00:15 12/17/24 00:15 Temperature Pulse Rate 137 H 137 H 137 H Respiratory Rate 16 16 16 Blood Pressure 122/81 Pulse Oximetry 98 Oxygen Delivery Oxygen Flow Rate Fraction of Inspired Oxygen 12/17/24 00:30 12/17/24 00:30 12/17/24 00:30 Temperature 36.9 C Pulse Rate 94 Respiratory Rate 16 Blood Pressure 90/63 L Pulse Oximetry 97 97 Oxygen Delivery Mechanical Ventilation Oxygen Flow Rate Fraction of Inspired Oxygen 100 100 12/17/24 00:45 12/17/24 01:00 12/17/24 01:00 Temperature 37.3 C 37.3 C Pulse Rate 91 138 H 91 Respiratory Rate 16 20 Blood Pressure 86/62 L 89/62 L Pulse Oximetry 97 100 98 Oxygen Delivery Mechanical Ventilation Oxygen Flow Rate Fraction of Inspired Oxygen 100 12/17/24 01:00 12/17/24 01:01 12/17/24 01:15 Temperature 37.3 C 37.3 C Pulse Rate 91 91 92 Respiratory Rate 20 20 Blood Pressure 89/62 L 73/54 L Pulse Oximetry Oxygen Delivery Oxygen Flow Rate Fraction of Inspired Oxygen 12/17/24 01:15 12/17/24 01:16 12/17/24 01:29 Temperature 37.3 C 37.3 C 37.2 C Pulse Rate 92 92 91 Respiratory Rate 20 20 15 Blood Pressure 73/54 L 75/41 L Pulse Oximetry Oxygen Delivery Oxygen Flow Rate Fraction of Inspired Oxygen 12/17/24 01:30 12/17/24 01:30 12/17/24 01:30 Temperature 37.2 C Pulse Rate 91 91 91 Respiratory Rate 16 16 17 Blood Pressure Pulse Oximetry 100 Oxygen Delivery Oxygen Flow Rate Fraction of Inspired Oxygen 12/17/24 01:31 12/17/24 01:43 12/17/24 01:45 Temperature 37.2 C 37.2 C Pulse Rate 91 91 91 Respiratory Rate 20 16 Blood Pressure 84/63 L 91/71 L 105/72 Pulse Oximetry Oxygen Delivery Oxygen Flow Rate Fraction of Inspired Oxygen 12/17/24 01:45 12/17/24 01:46 12/17/24 01:59 Temperature 37.2 C 37.2 C Pulse Rate 91 91 Respiratory Rate 13 20 Blood Pressure 105/72 Pulse Oximetry Oxygen Delivery Oxygen Flow Rate Fraction of Inspired Oxygen 100 12/17/24 02:00 12/17/24 02:00 12/17/24 02:01 Temperature 37.2 C 37.2 C 37.2 C Pulse Rate 91 91 91 Respiratory Rate 20 20 18 Blood Pressure 100/69 100/69 Pulse Oximetry 100 Oxygen Delivery Oxygen Flow Rate Fraction of Inspired Oxygen 12/17/24 02:05 12/17/24 02:05 12/17/24 02:06 Temperature Pulse Rate 91 91 91 Respiratory Rate 16 16 Blood Pressure 100/69 Pulse Oximetry Oxygen Delivery Oxygen Flow Rate Fraction of Inspired Oxygen 12/17/24 02:15 12/17/24 02:16 12/17/24 02:30 Temperature 37.3 C 37.3 C 37.3 C Pulse Rate 91 91 91 Respiratory Rate 15 8 L 9 L Blood Pressure 98/71 L Pulse Oximetry Oxygen Delivery Oxygen Flow Rate Fraction of Inspired Oxygen 12/17/24 02:31 12/17/24 02:45 12/17/24 02:46 Temperature 37.2 C 37.2 C 37.2 C Pulse Rate 91 91 91 Respiratory Rate 10 L 20 20 Blood Pressure 99/67 L 104/70 Pulse Oximetry Oxygen Delivery Oxygen Flow Rate Fraction of Inspired Oxygen 12/17/24 03:00 12/17/24 03:00 12/17/24 03:00 Temperature 37.2 C Pulse Rate 91 92 93 Respiratory Rate 20 20 Blood Pressure Pulse Oximetry 100 97 Oxygen Delivery Mechanical Ventilation Oxygen Flow Rate Fraction of Inspired Oxygen 80 12/17/24 03:01 12/17/24 03:10 12/17/24 03:15 Temperature 37.2 C 37.2 C Pulse Rate 91 93 92 Respiratory Rate 18 20 20 Blood Pressure 106/73 Pulse Oximetry 100 100 Oxygen Delivery Oxygen Flow Rate Fraction of Inspired Oxygen 12/17/24 03:16 12/17/24 03:21 12/17/24 03:30 Temperature 37.2 C 37.2 C 37.2 C Pulse Rate 92 92 92 Respiratory Rate 20 20 20 Blood Pressure 106/80 106/80 Pulse Oximetry 100 99 99 Oxygen Delivery Oxygen Flow Rate Fraction of Inspired Oxygen 12/17/24 03:31 12/17/24 03:45 12/17/24 03:46 Temperature 37.2 C 37.2 C 37.2 C Pulse Rate 92 92 89 Respiratory Rate 20 20 20 Blood Pressure 106/74 99/80 L Pulse Oximetry 100 99 100 Oxygen Delivery Oxygen Flow Rate Fraction of Inspired Oxygen 12/17/24 04:00 12/17/24 04:00 12/17/24 04:00 Temperature 37.2 C Pulse Rate 91 Respiratory Rate 20 Blood Pressure 102/75 Pulse Oximetry 100 100 Oxygen Delivery Mechanical Ventilation Oxygen Flow Rate Fraction of Inspired Oxygen 80 80 12/17/24 04:00 12/17/24 04:00 12/17/24 04:00 Temperature Pulse Rate 91 91 91 Respiratory Rate 20 20 Blood Pressure 102/75 Pulse Oximetry Oxygen Delivery Oxygen Flow Rate Fraction of Inspired Oxygen 12/17/24 04:03 12/17/24 04:04 12/17/24 04:15 Temperature 37.2 C 37.2 C 37.2 C Pulse Rate 91 91 92 Respiratory Rate 20 20 20 Blood Pressure 102/75 Pulse Oximetry 100 100 100 Oxygen Delivery Oxygen Flow Rate Fraction of Inspired Oxygen 12/17/24 04:16 12/17/24 04:26 12/17/24 04:30 Temperature 37.2 C 37.1 C Pulse Rate 92 92 92 Respiratory Rate 20 20 Blood Pressure 102/76 Pulse Oximetry 100 100 99 Oxygen Delivery Mechanical Ventilation Oxygen Flow Rate Fraction of Inspired Oxygen 70 12/17/24 04:31 12/17/24 04:45 12/17/24 04:46 Temperature 37.1 C 37.2 C 37.2 C Pulse Rate 92 92 92 Respiratory Rate 20 16 20 Blood Pressure 96/67 L 109/76 Pulse Oximetry 99 99 99 Oxygen Delivery Oxygen Flow Rate Fraction of Inspired Oxygen 12/17/24 05:00 12/17/24 05:01 12/17/24 05:11 Temperature 37.2 C 37.2 C Pulse Rate 81 92 91 Respiratory Rate 16 13 Blood Pressure 96/69 L Pulse Oximetry 99 99 Oxygen Delivery Oxygen Flow Rate Fraction of Inspired Oxygen 12/17/24 05:15 12/17/24 05:16 12/17/24 05:30 Temperature 37.2 C 37.2 C Pulse Rate 92 92 92 Respiratory Rate 15 12 20 Blood Pressure 104/75 Pulse Oximetry 99 99 Oxygen Delivery Oxygen Flow Rate Fraction of Inspired Oxygen 12/17/24 05:30 12/17/24 05:31 12/17/24 05:32 Temperature 37.2 C 37.2 C Pulse Rate 92 92 92 Respiratory Rate 20 20 20 Blood Pressure 105/76 Pulse Oximetry 99 99 Oxygen Delivery Oxygen Flow Rate Fraction of Inspired Oxygen 12/17/24 06:00 12/17/24 06:00 12/17/24 06:00 Temperature Pulse Rate 93 93 93 Respiratory Rate 20 20 20 Blood Pressure 103/75 Pulse Oximetry 99 Oxygen Delivery Oxygen Flow Rate Fraction of Inspired Oxygen 12/17/24 06:00 12/17/24 07:00 12/17/24 08:00 Temperature 37.3 C 37.4 C Pulse Rate 93 93 94 Respiratory Rate 20 20 Blood Pressure 103/75 104/77 104/75 Pulse Oximetry 99 99 Oxygen Delivery Oxygen Flow Rate Fraction of Inspired Oxygen 12/17/24 08:00 12/17/24 08:00 12/17/24 08:00 Temperature Pulse Rate 93 93 93 Respiratory Rate 20 20 Blood Pressure 104/75 Pulse Oximetry Oxygen Delivery Oxygen Flow Rate Fraction of Inspired Oxygen 12/17/24 08:00 12/17/24 08:00 12/17/24 08:00 Temperature Pulse Rate 94 Respiratory Rate Blood Pressure Pulse Oximetry 99 Oxygen Delivery Mechanical Ventilation Oxygen Flow Rate Fraction of Inspired Oxygen 60 60 12/17/24 08:25 12/17/24 08:27 12/17/24 08:40 Temperature Pulse Rate 94 94 94 Respiratory Rate 20 20 Blood Pressure Pulse Oximetry 97 Oxygen Delivery Mechanical Ventilation Oxygen Flow Rate Fraction of Inspired Oxygen 60 12/17/24 10:00 12/17/24 10:00 12/17/24 10:00 Temperature Pulse Rate 95 95 95 Respiratory Rate 20 20 Blood Pressure 100/74 Pulse Oximetry Oxygen Delivery Oxygen Flow Rate Fraction of Inspired Oxygen 12/17/24 10:00 12/17/24 10:00 12/17/24 10:00 Temperature 37.2 C 37.2 C Pulse Rate 95 95 95 Respiratory Rate 20 20 Blood Pressure 100/74 100/74 Pulse Oximetry 98 98 Oxygen Delivery Oxygen Flow Rate Fraction of Inspired Oxygen 12/17/24 11:03 12/17/24 12:00 12/17/24 12:00 Temperature Pulse Rate 95 Respiratory Rate Blood Pressure Pulse Oximetry 98 96 Oxygen Delivery Mechanical Ventilation Mechanical Ventilation Oxygen Flow Rate Fraction of Inspired Oxygen 60 60 60 12/17/24 12:00 12/17/24 12:00 12/17/24 12:00 Temperature Pulse Rate 95 95 95 Respiratory Rate 20 20 Blood Pressure Pulse Oximetry Oxygen Delivery Oxygen Flow Rate Fraction of Inspired Oxygen 12/17/24 12:00 12/17/24 12:00 12/17/24 13:37 Temperature 37.5 C Pulse Rate 95 95 96 Respiratory Rate 20 20 Blood Pressure 105/81 105/81 Pulse Oximetry 97 Oxygen Delivery Oxygen Flow Rate Fraction of Inspired Oxygen 12/17/24 13:37 Temperature Pulse Rate 96 Respiratory Rate 20 Blood Pressure Pulse Oximetry Oxygen Delivery Oxygen Flow Rate Fraction of Inspired Oxygen Intake/Output Intake/Output: Intake & Output 12/14/24 12/15/24 12/16/24 12/17/24 23:59 23:59 23:59 23:59 Intake Total 300 1420 1270 369.5 Output Total 3200 900 1000 125 Balance -2900 520 270 244.5 Meds/Results Medications: Active Medications Generic Name Dose Route Start Last Admin Trade Name Freq PRN Reason Stop Dose Admin Acetaminophen 650 mg 12/14/24 20:56 Acetaminophen 325 Mg Tablet PO Q4H PRN Mild Pain (1-3) or Fever Albuterol 2.5 mg 12/14/24 21:44 Albuterol Sulfate Neb 2.5 Mg/3 Ml Inh INHALATION Q4HRT PRN Shortness Of Breath Or Wheezing Albuterol/Ipratropium 3 ml 12/15/24 02:00 12/17/24 09:30 Ipratropium 0.5 Mg/Albuterol Sulfate 2.5 Mg Ampul.Neb 3 Ml INHALATION Not Given Q6HRT REJI Aspirin 81 mg 12/17/24 09:00 12/17/24 09:02 Aspirin 81 Mg Chewable Tablet PO 81 mg DAILY REJI Administration Dextrose 12.5 gm 12/17/24 08:17 Dextrose 50% 25 Gm/50 Ml Syringe IV PUSH PRN PRN Hypoglycemia Protocol Empagliflozin 10 mg 12/15/24 09:00 12/17/24 09:01 Empagliflozin 10 Mg Tablet PO 10 mg DAILY REJI Administration Enoxaparin Sodium 40 mg 12/15/24 09:00 12/17/24 09:01 Enoxaparin 40 Mg/0.4 Ml Syringe SUB-Q 40 mg DAILY REJI Administration Furosemide 40 mg 12/15/24 09:00 12/17/24 09:01 Furosemide Inj 40 Mg/4 Ml Vial IV PUSH 40 mg Q12HR REJI Administration Glucagon 1 mg 12/17/24 08:17 Glucagon For Inj 1 Mg Vial IM PRN PRN Hypoglycemia Protocol Glucose 15 gm 12/17/24 08:17 Glucose Oral Gel 15 Gm Of Glucse In 37.5 Gm Tube PO PRN PRN Hypoglycemia Protocol Azithromycin 500 mg in 250 mls @ 250 mls/hr 12/15/24 22:00 12/16/24 22:17 Zithromax IVPB 250 mls/hr Q24H REJI Administration Fentanyl Citrate 2,500 mcg in 250 mls @ 10 mls/hr 12/17/24 00:05 12/17/24 12:00 Fentanyl 2,500 Mcg/Ns 250 Ml IV CONT 100 mcg/hr .Q25H REJI 10 mls/hr Titration Protocol 100 MCG/HR Midazolam HCl 100 mg in 100 mls @ 5 mls/hr 12/17/24 00:05 12/17/24 13:37 Versed 100 Mg/Ns 100 Ml IV CONT 5 mg/hr .Q20H REJI 5 mls/hr Administration Protocol 5 MG/HR Norepinephrine Bitartrate 8 mg in 250 mls @ 9.375 mls/hr 12/17/24 01:05 12/17/24 12:00 Levophed 8 Mg/D5w 250 Ml IV CONT 5 mcg/min .Q24H REJI 9.38 mls/hr Titration Protocol 5 MCG/MIN Dextrose 1,000 mls @ 100 mls/hr 12/17/24 08:17 Dextrose 5% 1,000 Ml IVPB PRN PRN Hypoglycemia Protocol Piperacillin/Tazobactam/Dextrose 3.375 gm in 50 mls @ 100 mls/hr 12/17/24 09:00 12/17/24 10:08 Zosyn 3.375 Gm/Ns 50 Ml IVPB Infused Q6H REJI Infusion Insulin Aspart 3 - 6 units 12/17/24 12:00 12/17/24 12:29 Insulin Aspart (*Bkc) 100 Units/Ml SUB-Q Not Given Q6HR REJI Protocol Multi-Ingred Cream/Lotion/Oil/Oint 1 applic 12/17/24 09:00 12/17/24 09:01 Mineral Oil/White Petrolatum Ointment EACH EYE 1 applic Q12HR REJI Administration Pantoprazole Sodium 40 mg 12/17/24 09:00 12/17/24 09:01 Pantoprazole Sodium Iv 40 Mg Vial IV PUSH 40 mg DAILY REJI Administration Rosuvastatin Calcium 10 mg 12/15/24 09:00 12/17/24 09:02 Rosuvastatin 10 Mg Tablet PO 10 mg QAM REJI Administration Sacubitril/Valsartan 1 tab 12/15/24 09:00 12/16/24 21:45 Sacubitril/Valsartan 24-26 Mg Tablet PO 1 tab Q12HR REJI Administration Sodium Chloride 10 ml 12/17/24 06:00 12/17/24 13:38 Central Line Flush IV PUSH 10 ml Q8HR REJI Administration Sodium Chloride 20 ml 12/17/24 00:03 Central Line Flush IV PUSH PRN PRN after blood draws Sodium Chloride 10 ml 12/17/24 06:00 12/17/24 13:38 Central Line Flush IV PUSH 10 ml Q8HR REJI Administration Sodium Chloride 20 ml 12/17/24 00:05 12/17/24 04:39 Central Line Flush IV PUSH 20 ml PRN PRN Administration after blood draws Radiology Results: ITS Impressions Chest CTA 12/16/24 13:43 IMPRESSION: No pulmonary embolus. No thoracic aortic dissection. Findings suggesting congestive failure, with large bilateral pleural effusions and intra-abdominal ascites. Chest X-Ray 12/17/24 07:05 IMPRESSION: Large left and increasing right-sided pleural effusion, with mild pulmonary vascular congestion. The bilateral lung apices only are clear. Supportive lines and tubes in good position, as detailed above. Abdomen X-Ray 12/17/24 07:07 IMPRESSION: Orogastric tube in good position and ready for immediate use. Remainder of examination is unchanged Head CT 12/17/24 07:09 Impression: No acute intracranial hemorrhage or suspicious mass effect. Chest/Abdomen/Pelvis CTA 12/17/24 07:41 IMPRESSION: No pulmonary embolus. No aortic dissection. Increasing bilateral pleural effusions with adjacent compressive atelectasis. Rim-enhancing fluid collection along the anterior abdominal wall measuring denser than simple fluid for which a perioperative seroma versus abscess (less likely) is suspected. Focused ultrasound may be performed for further evaluation. Labs Labs: Laboratory Results - last 24 hr 12/16/24 12/16/24 12/17/24 14:31 23:08 00:28 WBC 12.1 H RBC 4.67 Hgb 11.8 L Hct 39.8 L MCV 85.2 MCH 25.3 L MCHC 29.6 L RDW 17.8 H Plt Count 234 MPV 9.8 Immature Gran % (Auto) 0.4 Neut % (Auto) 75.1 H Lymph % (Auto) 15.6 L [place] % (Auto) 7.7 Eos % (Auto) 0.4 Baso % (Auto) 0.8 Lymph # (Auto) 1.88 [place] # (Auto) 0.9 H Eos # (Auto) 0.1 Baso # (Auto) 0.1 Abs Immat Gran (auto) 0.05 H Absolute Neuts (auto) 9.1 H Absolute Nucleated RBC 0.000 Band Neutrophils % Not Reportable Nucleated RBC % 0.0 Platelet Estimate Adequate Hypochromasia 1+ Poikilocytosis 1+ Anisocytosis 1+ Schistocytes Rare PT 17.2 H INR 1.4 APTT 31.1 Puncture Site Left radial Right radial ABG pH 7.449 7.256 L* ABG pCO2 42.4 63.9 H* ABG pO2 93.9 72.7 L ABG PO2/FiO2 Ratio 2.93 0.73 ABG HCO3 28.7 H 27.8 H ABG O2 Saturation 97.4 91.9 L ABG O2 Content 18.4 17.3 ABG Base Excess 4.3 -0.7 A-a Gradient 84.7 576.4 Oxyhemoglobin 96.3 92.1 Carboxyhemoglobin 0.9 Methemoglobin 0.1 Reduced Hemoglobin 6.9 H Total Hemoglobin 13.5 13.3 O2 Delivery Device Nasal cannula Ventilator O2 Liters/Min 3.0 Not Reportable Minute Volume Not Reportable Vent Rate 16 Vent Mode Asv FiO2 32 100 Tidal Volume 450 PEEP 5 Peak Inspir Pressure Not Reportable Pressure Support Not Reportable Sodium Potassium Chloride Carbon Dioxide Anion Gap BUN Creatinine Estim Creat Clear Calc Estimated GFR Glucose POC Capillary Glucose 99 Lactic Acid 4.2 H* Calcium Total Bilirubin AST ALT Alkaline Phosphatase Lactate Dehydrogenase Troponin I 0.173 H* Total Protein Albumin Procalcitonin Urine Color Urine Appearance Urine pH Ur Specific [place] Urine Protein Urine Glucose (UA) Urine Ketones Ur Blood (Man) Urine Nitrate Urine Bilirubin Urine Urobilinogen Add Ur Microanalysis Leukocyte Esterase Rfl Urine RBC Urine WBC Ur Squamous Epith Cells Urine Bacteria Urine Casts Nasal MRSA (PCR) Blood Type O Positive Antibody Screen Negative 12/17/24 12/17/24 12/17/24 00:35 04:06 04:27 WBC 12.8 H RBC 4.20 L Hgb 10.6 L Hct 34.9 L MCV 83.1 MCH 25.2 L MCHC 30.4 L RDW 17.4 H Plt Count 230 MPV 9.6 Immature Gran % (Auto) 0.4 Neut % (Auto) 66.1 Lymph % (Auto) 22.0 Valley % (Auto) 10.8 H Eos % (Auto) 0.2 Baso % (Auto) 0.5 Lymph # (Auto) 2.82 [place] # (Auto) 1.4 H Eos # (Auto) 0.0 Baso # (Auto) 0.1 Abs Immat Gran (auto) 0.05 H Absolute Neuts (auto) 8.5 H Absolute Nucleated RBC 0.000 Band Neutrophils % Nucleated RBC % 0.0 Platelet Estimate Hypochromasia Poikilocytosis Anisocytosis Schistocytes PT INR APTT Puncture Site Right radial ABG pH 7.461 H ABG pCO2 44.2 ABG pO2 225.3 H ABG PO2/FiO2 Ratio 2.82 ABG HCO3 30.8 H ABG O2 Saturation 99.5 ABG O2 Content 16.9 ABG Base Excess 6.3 A-a Gradient 298.7 Oxyhemoglobin 99.0 Carboxyhemoglobin Methemoglobin Reduced Hemoglobin Total Hemoglobin 11.8 L O2 Delivery Device Ventilator O2 Liters/Min Not Reportable Minute Volume Not Reportable Vent Rate 20 Vent Mode Cmv FiO2 80 Tidal Volume 450 PEEP 5 Peak Inspir Pressure Not Reportable Pressure Support Not Reportable Sodium 138 Potassium 4.3 Chloride 97 L Carbon Dioxide 33 H Anion Gap 8 BUN 33 H D Creatinine 1.09 Estim Creat Clear Calc 47 Estimated GFR > 60 Glucose 111 H POC Capillary Glucose Lactic Acid 1.9 Calcium 8.3 L Total Bilirubin 0.9 AST 95 H ALT 59 H Alkaline Phosphatase 75 Lactate Dehydrogenase Troponin I Total Protein 6.3 Albumin 3.4 L Procalcitonin 0.4 Urine Color Urine Appearance Urine pH Ur Specific [place] Urine Protein Urine Glucose (UA) Urine Ketones Ur Blood (Man) Urine Nitrate Urine Bilirubin Urine Urobilinogen Add Ur Microanalysis Leukocyte Esterase Rfl Urine RBC Urine WBC Ur Squamous Epith Cells Urine Bacteria Urine Casts Nasal MRSA (PCR) Detected A* Blood Type Antibody Screen 12/17/24 12/17/24 12/17/24 09:13 09:31 12:28 WBC RBC Hgb Hct MCV MCH MCHC RDW Plt Count MPV Immature Gran % (Auto) Neut % (Auto) Lymph % (Auto) Valley % (Auto) Eos % (Auto) Baso % (Auto) Lymph # (Auto) [place] # (Auto) Eos # (Auto) Baso # (Auto) Abs Immat Gran (auto) Absolute Neuts (auto) Absolute Nucleated RBC Band Neutrophils % Nucleated RBC % Platelet Estimate Hypochromasia Poikilocytosis Anisocytosis Schistocytes PT INR APTT Puncture Site ABG pH ABG pCO2 ABG pO2 ABG PO2/FiO2 Ratio ABG HCO3 ABG O2 Saturation ABG O2 Content ABG Base Excess A-a Gradient Oxyhemoglobin Carboxyhemoglobin Methemoglobin Reduced Hemoglobin Total Hemoglobin O2 Delivery Device O2 Liters/Min Minute Volume Vent Rate Vent Mode FiO2 Tidal Volume PEEP Peak Inspir Pressure Pressure Support Sodium Potassium Chloride Carbon Dioxide Anion Gap BUN Creatinine Estim Creat Clear Calc Estimated GFR Glucose POC Capillary Glucose 89 Lactic Acid Calcium Total Bilirubin AST ALT Alkaline Phosphatase Lactate Dehydrogenase 279 H Troponin I Total Protein Albumin Procalcitonin Urine Color Yellow Urine Appearance Clear Urine pH 7.5 Ur Specific [place] 1.017 Urine Protein Negative Urine Glucose (UA) Negative Urine Ketones Negative Ur Blood (Man) Negative Urine Nitrate Negative Urine Bilirubin Negative Urine Urobilinogen 1.0 Add Ur Microanalysis Reviewed Leukocyte Esterase Rfl 1+ H Urine RBC 0-2 Urine WBC 0-5 Ur Squamous Epith Cells None seen Urine Bacteria None seen Urine Casts 0-2 Nasal MRSA (PCR) Blood Type Antibody Screen Quality VTE Prophylaxis VTE prophylaxis: pharmacologic ordered
--- NOTE | 2024-12-17 20:15 | PC.NURSE ---
Elizabeth, , called and concerned about Jessica visiting patient. She states she is the one who provides the with drugs. Elizabeth states she will talk to children Kait and Tashi to discuss turning Jessica away when she visits. This nurse explained Kait, Tashi, and Elizabeth are the only people who will be given information. Explained to Jessica and other visitor that if they want information or updates they need to contact the patients family.
[2024-12-17] MEDS: AZITHROMYCIN 500 MG/NS 250 ML 500 MG/250 ML BAG 250 MG IVPB (21:35)
--- NOTE | 2024-12-17 21:48 | P.CONS_ITS ---
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 This does not appear to be an abscess on CT scan. This most likely represents a a postoperative seroma which has persisted due to the patient's abdominal ascites and pleural effusions from his heart failure. He appears to not have any significant symptoms from his abdominal wall seroma. At this point I would recommend ultrasound-guided aspiration of the seroma fluid and have the aspirated fluid sent for Gram stain and culture to evaluate for infected fluid collection. If the fluid is infected then there may be consideration for operative management and removal of the mesh. If it is a sterile fluid collection then aspiration would be the only thing I would recommend at this time. (2) Abdominal fluid collection: Code(s): R18.8 - Other ascites Status: Acute HPI Data of Consult Date/Time: 12/17/24 21:48 Requesting Physician: Moise Gottlieb MD Primary Care Provider: [facility] Consult Narrative Reason for consult: Abd wall fluid collection Narrative: Js Contreras is a 74 year old male who was admitted to the hospital and is seen in the intensive care unit after he has been intubated due to acute respiratory distress. Patient has a long history of pulmonary disease and congestive heart failure. He has large bilateral pleural effusions causing his most for failure. CT scan of the chest abdomen pelvis was obtained in his diagnostic workup. The patient had a robotic assisted laparoscopic ventral hernia repair with placement of mesh in the retrorectus space by Dr. Lewis about 3 months ago. On the [address] scan there is no recurrence of the hernia but there is fluid above the mesh in the retrorectus space. I have been asked to comment on management of this fluid collection the abdominal wall. Review of Systems 2 Review of Systems: The remainder of the review of systems to include constitutional, HEENT, cardiovascular, respiratory, GI, , integumentary, musculoskeletal, endocrine, immunologic, hematologic, psychiatric, and neurologic are all negative except for which is mentioned above in the HPI. [facility] Past Medical History Medical History Noncompliance with treatment Eczema Sleep apnea Hypertension Hyperlipidemia Vitamin D deficiency Substance abuse Atrial fibrillation Congestive heart failure Surgical History Surgical History History of umbilical hernia repair robotic assisted repair incarcerated umbilical hernia measuring 4.5 cm, myofascial release x2 H/O hemorrhoidectomy History of appendectomy History of carpal tunnel release Family History Family History Mother Parkinson disease Father Alcohol abuse Social History Social History Social History: Lives with grand daughter (13 year old) 1 dog Smoking status: Never smoker Second hand tobacco smoke exposure: Yes Alcohol intake: former Drinks per week: 2 Substance use: current Substance use type: marijuana and crack/cocaine Other substance usage details: once in while, last used 2 weeks ago Do You Feel Safe in your Home?: Yes Lack of Transportation: No Lack of Food: Never True Current Housing: I Have Housing Concerned About Future Housing: No Difficulty Paying Gas/Electric Bills: No Difficulty Paying for Meds: No Currently Unemployed: No Education: High School Diploma/GED Difficulty w/ Childcare or Family Care: No Spiritual care concerns: No Meds Home Medications and Allergies Home Medications ?Medication ?Instructions ?Recorded ?Confirmed ?Type aspirin 81 mg chewable tablet 81 mg PO DAILY 08/23/24 12/15/24 History cholecalciferol (vitamin D3) 50 2,000 unit PO DAILY 08/23/24 12/15/24 History mcg (2,000 unit) capsule furosemide 40 mg tablet 40 mg PO DAILY #30 tabs 08/28/24 12/15/24 Rx metoprolol succinate 100 mg 100 mg PO QAM #60 tabs 08/28/24 12/15/24 Rx tablet,extended release 24 hr (Toprol XL) potassium chloride 20 mEq oral 20 meq PO DAILY #30 ea 08/28/24 12/15/24 Rx packet rosuvastatin 20 mg tablet (Crestor) 10 mg (1/2 x 20 mg) PO HS #30 tabs 08/28/24 12/15/24 Rx empagliflozin 10 mg tablet 10 mg PO DAILY #30 tabs 10/22/24 12/15/24 Rx sacubitril 24 mg-valsartan 26 mg 1 tab PO Q12HR #30 tabs 10/22/24 12/15/24 Rx tablet (Entresto) Allergies Allergy/AdvReac Type Severity Reaction Status Date / Time No Known Drug Allergies Allergy Other Verified 12/05/24 17:47 Vital Signs Vital Signs - 24 hr 12/16/24 23:25 12/17/24 00:00 12/17/24 00:15 Temperature Pulse Rate 131 H 138 H 137 H Respiratory Rate 18 16 Blood Pressure Pulse Oximetry 100 Oxygen Delivery Mechanical Ventilation Fraction of Inspired Oxygen 100 12/17/24 00:15 12/17/24 00:15 12/17/24 00:30 Temperature 36.9 C Pulse Rate 137 H 137 H 94 Respiratory Rate 16 16 16 Blood Pressure 122/81 90/63 L Pulse Oximetry 98 97 Oxygen Delivery Fraction of Inspired Oxygen 12/17/24 00:30 12/17/24 00:30 12/17/24 00:45 Temperature 37.3 C Pulse Rate 91 Respiratory Rate 16 Blood Pressure 86/62 L Pulse Oximetry 97 97 Oxygen Delivery Mechanical Ventilation Fraction of Inspired Oxygen 100 100 12/17/24 01:00 12/17/24 01:00 12/17/24 01:00 Temperature 37.3 C 37.3 C Pulse Rate 138 H 91 91 Respiratory Rate 20 20 Blood Pressure 89/62 L Pulse Oximetry 100 98 Oxygen Delivery Mechanical Ventilation Fraction of Inspired Oxygen 100 12/17/24 01:01 12/17/24 01:15 12/17/24 01:15 Temperature 37.3 C 37.3 C Pulse Rate 91 92 92 Respiratory Rate 20 20 Blood Pressure 89/62 L 73/54 L Pulse Oximetry Oxygen Delivery Fraction of Inspired Oxygen 12/17/24 01:16 12/17/24 01:29 12/17/24 01:30 Temperature 37.3 C 37.2 C Pulse Rate 92 91 91 Respiratory Rate 20 15 16 Blood Pressure 73/54 L 75/41 L Pulse Oximetry Oxygen Delivery Fraction of Inspired Oxygen 12/17/24 01:30 12/17/24 01:30 12/17/24 01:31 Temperature 37.2 C 37.2 C Pulse Rate 91 91 91 Respiratory Rate 16 17 20 Blood Pressure 84/63 L Pulse Oximetry 100 Oxygen Delivery Fraction of Inspired Oxygen 12/17/24 01:43 12/17/24 01:45 12/17/24 01:45 Temperature 37.2 C 37.2 C Pulse Rate 91 91 91 Respiratory Rate 16 13 Blood Pressure 91/71 L 105/72 Pulse Oximetry Oxygen Delivery Fraction of Inspired Oxygen 12/17/24 01:46 12/17/24 01:59 12/17/24 02:00 Temperature 37.2 C 37.2 C Pulse Rate 91 91 Respiratory Rate 20 20 Blood Pressure 105/72 100/69 Pulse Oximetry 100 Oxygen Delivery Fraction of Inspired Oxygen 100 12/17/24 02:00 12/17/24 02:01 12/17/24 02:05 Temperature 37.2 C 37.2 C Pulse Rate 91 91 91 Respiratory Rate 20 18 16 Blood Pressure 100/69 Pulse Oximetry Oxygen Delivery Fraction of Inspired Oxygen 12/17/24 02:05 12/17/24 02:06 12/17/24 02:15 Temperature 37.3 C Pulse Rate 91 91 91 Respiratory Rate 16 15 Blood Pressure 100/69 Pulse Oximetry Oxygen Delivery Fraction of Inspired Oxygen 12/17/24 02:16 12/17/24 02:30 12/17/24 02:31 Temperature 37.3 C 37.3 C 37.2 C Pulse Rate 91 91 91 Respiratory Rate 8 L 9 L 10 L Blood Pressure 98/71 L 99/67 L Pulse Oximetry Oxygen Delivery Fraction of Inspired Oxygen 12/17/24 02:45 12/17/24 02:46 12/17/24 03:00 Temperature 37.2 C 37.2 C 37.2 C Pulse Rate 91 91 91 Respiratory Rate 20 20 20 Blood Pressure 104/70 Pulse Oximetry 100 Oxygen Delivery Fraction of Inspired Oxygen 12/17/24 03:00 12/17/24 03:00 12/17/24 03:01 Temperature 37.2 C Pulse Rate 92 93 91 Respiratory Rate 20 18 Blood Pressure 106/73 Pulse Oximetry 97 100 Oxygen Delivery Mechanical Ventilation Fraction of Inspired Oxygen 80 12/17/24 03:10 12/17/24 03:15 12/17/24 03:16 Temperature 37.2 C 37.2 C Pulse Rate 93 92 92 Respiratory Rate 20 20 20 Blood Pressure 106/80 Pulse Oximetry 100 100 Oxygen Delivery Fraction of Inspired Oxygen 12/17/24 03:21 12/17/24 03:30 12/17/24 03:31 Temperature 37.2 C 37.2 C 37.2 C Pulse Rate 92 92 92 Respiratory Rate 20 20 20 Blood Pressure 106/80 106/74 Pulse Oximetry 99 99 100 Oxygen Delivery Fraction of Inspired Oxygen 12/17/24 03:45 12/17/24 03:46 12/17/24 04:00 Temperature 37.2 C 37.2 C Pulse Rate 92 89 Respiratory Rate 20 20 Blood Pressure 99/80 L Pulse Oximetry 99 100 Oxygen Delivery Fraction of Inspired Oxygen 80 12/17/24 04:00 12/17/24 04:00 12/17/24 04:00 Temperature 37.2 C Pulse Rate 91 91 Respiratory Rate 20 20 Blood Pressure 102/75 Pulse Oximetry 100 100 Oxygen Delivery Mechanical Ventilation Fraction of Inspired Oxygen 80 12/17/24 04:00 12/17/24 04:00 12/17/24 04:03 Temperature 37.2 C Pulse Rate 91 91 91 Respiratory Rate 20 20 Blood Pressure 102/75 102/75 Pulse Oximetry 100 Oxygen Delivery Fraction of Inspired Oxygen 12/17/24 04:04 12/17/24 04:15 12/17/24 04:16 Temperature 37.2 C 37.2 C 37.2 C Pulse Rate 91 92 92 Respiratory Rate 20 20 20 Blood Pressure 102/76 Pulse Oximetry 100 100 100 Oxygen Delivery Fraction of Inspired Oxygen 12/17/24 04:26 12/17/24 04:30 12/17/24 04:31 Temperature 37.1 C 37.1 C Pulse Rate 92 92 92 Respiratory Rate 20 20 Blood Pressure 96/67 L Pulse Oximetry 100 99 99 Oxygen Delivery Mechanical Ventilation Fraction of Inspired Oxygen 70 12/17/24 04:45 12/17/24 04:46 12/17/24 05:00 Temperature 37.2 C 37.2 C 37.2 C Pulse Rate 92 92 81 Respiratory Rate 16 20 16 Blood Pressure 109/76 Pulse Oximetry 99 99 99 Oxygen Delivery Fraction of Inspired Oxygen 12/17/24 05:01 12/17/24 05:11 12/17/24 05:15 Temperature 37.2 C 37.2 C Pulse Rate 92 91 92 Respiratory Rate 13 15 Blood Pressure 96/69 L Pulse Oximetry 99 99 Oxygen Delivery Fraction of Inspired Oxygen 12/17/24 05:16 12/17/24 05:30 12/17/24 05:30 Temperature 37.2 C 37.2 C Pulse Rate 92 92 92 Respiratory Rate 12 20 20 Blood Pressure 104/75 Pulse Oximetry 99 99 Oxygen Delivery Fraction of Inspired Oxygen 12/17/24 05:31 12/17/24 05:32 12/17/24 06:00 Temperature 37.2 C Pulse Rate 92 92 93 Respiratory Rate 20 20 20 Blood Pressure 105/76 103/75 Pulse Oximetry 99 99 Oxygen Delivery Fraction of Inspired Oxygen 12/17/24 06:00 12/17/24 06:00 12/17/24 06:00 Temperature Pulse Rate 93 93 93 Respiratory Rate 20 20 Blood Pressure 103/75 Pulse Oximetry Oxygen Delivery Fraction of Inspired Oxygen 12/17/24 07:00 12/17/24 08:00 12/17/24 08:00 Temperature 37.3 C 37.4 C Pulse Rate 93 94 93 Respiratory Rate 20 20 20 Blood Pressure 104/77 104/75 Pulse Oximetry 99 99 Oxygen Delivery Fraction of Inspired Oxygen 12/17/24 08:00 12/17/24 08:00 12/17/24 08:00 Temperature Pulse Rate 93 93 Respiratory Rate 20 Blood Pressure 104/75 Pulse Oximetry 99 Oxygen Delivery Mechanical Ventilation Fraction of Inspired Oxygen 60 12/17/24 08:00 12/17/24 08:00 12/17/24 08:25 Temperature Pulse Rate 94 94 Respiratory Rate Blood Pressure Pulse Oximetry 97 Oxygen Delivery Mechanical Ventilation Fraction of Inspired Oxygen 60 60 12/17/24 08:27 12/17/24 08:40 12/17/24 10:00 Temperature Pulse Rate 94 94 95 Respiratory Rate 20 20 20 Blood Pressure Pulse Oximetry Oxygen Delivery Fraction of Inspired Oxygen 12/17/24 10:00 12/17/24 10:00 12/17/24 10:00 Temperature Pulse Rate 95 95 95 Respiratory Rate 20 Blood Pressure 100/74 Pulse Oximetry Oxygen Delivery Fraction of Inspired Oxygen 12/17/24 10:00 12/17/24 10:00 12/17/24 11:03 Temperature 37.2 C 37.2 C Pulse Rate 95 95 95 Respiratory Rate 20 20 Blood Pressure 100/74 100/74 Pulse Oximetry 98 98 98 Oxygen Delivery Mechanical Ventilation Fraction of Inspired Oxygen 60 12/17/24 12:00 12/17/24 12:00 12/17/24 12:00 Temperature Pulse Rate 95 Respiratory Rate Blood Pressure Pulse Oximetry 96 Oxygen Delivery Mechanical Ventilation Fraction of Inspired Oxygen 60 60 12/17/24 12:00 12/17/24 12:00 12/17/24 12:00 Temperature Pulse Rate 95 95 95 Respiratory Rate 20 20 Blood Pressure 105/81 Pulse Oximetry Oxygen Delivery Fraction of Inspired Oxygen 12/17/24 12:00 12/17/24 13:37 12/17/24 13:37 Temperature 37.5 C Pulse Rate 95 96 96 Respiratory Rate 20 20 20 Blood Pressure 105/81 Pulse Oximetry 97 Oxygen Delivery Fraction of Inspired Oxygen 12/17/24 14:00 12/17/24 14:00 12/17/24 14:00 Temperature 37.6 C H Pulse Rate 96 96 96 Respiratory Rate 20 20 Blood Pressure 104/75 Pulse Oximetry 95 Oxygen Delivery Fraction of Inspired Oxygen 12/17/24 14:00 12/17/24 14:00 12/17/24 14:30 Temperature Pulse Rate 96 96 96 Respiratory Rate 20 20 Blood Pressure 104/75 Pulse Oximetry Oxygen Delivery Fraction of Inspired Oxygen 12/17/24 14:35 12/17/24 14:39 12/17/24 16:00 Temperature Pulse Rate 95 96 Respiratory Rate 96 H Blood Pressure Pulse Oximetry 96 93 Oxygen Delivery Mechanical Ventilation Mechanical Ventilation Fraction of Inspired Oxygen 60 60 12/17/24 16:00 12/17/24 16:00 12/17/24 16:00 Temperature 37.9 C H Pulse Rate 96 96 Respiratory Rate 16 Blood Pressure 100/68 Pulse Oximetry 93 Oxygen Delivery Fraction of Inspired Oxygen 60 12/17/24 16:00 12/17/24 16:00 12/17/24 16:00 Temperature Pulse Rate 96 96 96 Respiratory Rate 16 16 Blood Pressure 100/68 Pulse Oximetry Oxygen Delivery Fraction of Inspired Oxygen 12/17/24 17:00 12/17/24 17:42 12/17/24 18:00 Temperature 37.9 C H Pulse Rate 97 97 Respiratory Rate 20 Blood Pressure 103/73 Pulse Oximetry 96 96 Oxygen Delivery Mechanical Ventilation Fraction of Inspired Oxygen 50 50 12/17/24 18:00 12/17/24 18:00 12/17/24 18:00 Temperature Pulse Rate 96 96 96 Respiratory Rate 20 Blood Pressure 108/72 Pulse Oximetry Oxygen Delivery Fraction of Inspired Oxygen 12/17/24 18:00 12/17/24 19:54 12/17/24 19:55 Temperature Pulse Rate 96 97 94 Respiratory Rate 20 20 Blood Pressure Pulse Oximetry 95 Oxygen Delivery Mechanical Ventilation Fraction of Inspired Oxygen 50 12/17/24 20:00 12/17/24 20:00 12/17/24 21:37 Temperature 37.9 C H Pulse Rate 97 97 96 Respiratory Rate 20 20 20 Blood Pressure 96/69 L Pulse Oximetry 95 Oxygen Delivery Fraction of Inspired Oxygen 12/17/24 21:37 Temperature Pulse Rate 96 Respiratory Rate 20 Blood Pressure Pulse Oximetry Oxygen Delivery Fraction of Inspired Oxygen Exam 2 Const: Other: Patient is sedated on the ventilator. GI: Other: Abdomen is soft and nondistended. There is vague abdominal wall masses but likely representing the seroma in the retrorectus position the mid portion of the abdomen the periumbilical region. There is no redness of the skin to suggest cellulitis. There is no draining areas in all the port site incisions on the abdominal wall a well-healed. Abdominal exam for tenderness of the abdomen is unreliable due to the patient's intubated state with sedation. Results Labs 12/17/24 04:27 12/17/24 04:27 Labs: Short CBC 12/17/24 12/17/24 Range/Units 00:28 04:27 WBC 12.1 H 12.8 H (4.5-10.0) K/mm3 Hgb 11.8 L 10.6 L (14.0-18.0) g/dL Hct 39.8 L 34.9 L (42.0-52.0) % Plt Count 234 230 (150-375) k/mm3 BMP 12/17/24 04:27 Sodium 138 Potassium 4.3 Chloride 97 L Carbon Dioxide 33 H BUN 33 H D Creatinine 1.09 Glucose 111 H Calcium 8.3 L Cardiac Enzymes 12/17/24 Range/Units 00:28 Troponin I 0.173 H* (0.000-0.034) ng/mL Liver Function 12/17/24 Range/Units 04:27 Total Bilirubin 0.9 (0.2-1.3) mg/dL AST 95 H (17-59) U/L ALT 59 H (6-50) U/L Alkaline Phosphatase 75 (38-126) U/L Albumin 3.4 L (3.5-5.1) g/dL Urine 12/17/24 Range/Units 09:31 Urine Color Yellow (Yellow) Urine Appearance Clear (Clear) Urine pH 7.5 (5.0-9.0) Ur Specific [place] 1.017 (1.001-1.035) Urine Protein Negative (Negative) mg/dL Urine Glucose (UA) Negative (Negative) mg/dL Imaging My impression: On my review of the patient's CT of the abdomen he has a significantly sized non loculated fluid collection in the retrorectus space of the abdominal wall. This appears to be superficial to the mesh and the posterior rectus fascia. There is intra-abdominal ascites. There is no evidence of re
[2024-12-18] VITALS (81 sets, daily range): BP systolic 75–130; BP diastolic 51–90; PULSE 9–106; RESP 0–23; TEMP 36.7–38.4; O2SAT 90–98
[2024-12-18] MEDS: ACETAMINOPHEN 325 MG TABLET 650 MG PO ×2 (00:46→20:40)
[2024-12-18] MEDS: IPRATROPIUM 0.5 MG/ALBUTEROL SULFATE 2.5 MG AMPUL.NEB 3 ML INHALATION ×4 (01:36→19:45)
[2024-12-18] MEDS: NOREPINEPHRINE 8 MG/D5W 250 ML 8 MG/250 ML BAG 9.38 MG IV CONT (01:43)
[2024-12-18] MEDS: PIPERACILLN/TAZ 3.375GM/NS50ML 3.375 GM/50 ML BAG IVPB ×4 (02:52→20:40)
[2024-12-18 05:12] LABS: Alveolar/Arterial O2 Gradient 203.2 mmHg; Carboxyhemoglobin 0.8 % THb (0-2.0); Fractional Inspired Oxygen 50 %; HCO3 ABG 29.8 mEq/l (22.0-26.0); Methemoglobin ABG 0.3 %THb (0-1.5); Oxygen Content ABG 17.0 %vol (16.0-22.0); Oxygen Saturation ABG 98.5 % (95.0-100.0); PCO2 ABG 36.8 mmHg (35.0-45.0); PO2 ABG 111.9 mmHg (80.0-100.0); PO2 FiO2 Ratio Arterial Blood 2.24 %; Reduced Hemoglobin 1.7 %THb (0-5.0)
[2024-12-18 05:14] LABS: Modified Allen's Test Pass; Site Drawn RIGHT RADIAL
[2024-12-18 05:15] LABS: Arterial Blood Gas Tidal Volume 420 ml; Arterial Blood Gas Ventilator rate 20 /MIN
[2024-12-18 05:31] LABS: Hematocrit 36.4 % (42.0-52.0); Hemoglobin 11.1 g/dL (14.0-18.0); Immature Granulocyte Percent A 0.3 % (0-0.5); Lymphocytes Absolute Auto 2.88 K/mm3 (0.9-3.2); Mean Corpuscular HGB Conc 30.5 g/dl (32-36); Mean Corpuscular Hemoglobin 24.7 pg (26-34); Mean Corpuscular Volume 81.1 fl (80-100); Nucleated Red Blood Cells Absolute Auto 0.000 K/mm3 (0.0-0.012); Nucleated Red Blood Cells Perc 0.0 % (0.0-0.2); Platelet Count Result 243 k/mm3 (150-375); Red Blood Count 4.49 M/mm3 (4.6-6.20); White Blood Count 11.7 K/mm3 (4.5-10.0)
[2024-12-18] MEDS: CENTRAL LINE FLUSH 10 ML IV PUSH ×6 (05:40→23:23)
[2024-12-18] MEDS: CENTRAL LINE FLUSH 20 ML IV PUSH (05:40)
[2024-12-18 05:42] LABS: Alanine Aminotransferase 59 U/L (6-50); Albumin Level 3.2 g/dL (3.5-5.1); Alkaline Phosphatase 61 U/L (38-126); Anion Gap 5 mmol/L (4-12); Aspartate Amino Transferase 77 U/L (17-59); Bilirubin,Total 1.1 mg/dL (0.2-1.3); Blood Urea Nitrogen 32 mg/dL (9-20); Calcium 8.0 mg/dL (8.4-10.2); Carbon Dioxide 35 mmol/L (22-30); Chloride 98 mmol/L (98-107); Estimated CRCL calculation 46 ml/min; Estimated Glomerular Filt Rate > 60; Glucose 115 mg/dL (65-110); INR 1.3; Potassium 3.6 mmol/L (3.4-5.0); Prothrombin Time 16.6 Seconds (11.1-14.7); Sodium 138 mmol/L (137-145); Total Protein 6.1 g/dL (6.3-8.2)
[2024-12-18 05:43] LABS: Partial Thromboplastin Time 36.4 Seconds (22.3-36.8)
[2024-12-18] MEDS: POTASSIUM CHLORIDE 20 MEQ PACKET (FOR LIQUID) 40 MEQ FEED TUBE ×2 (08:36→13:31)
[2024-12-18] MEDS: ENOXAPARIN 40 MG/0.4 ML SYRINGE SUB-Q (08:36)
[2024-12-18] MEDS: PANTOPRAZOLE SODIUM IV 40 MG VIAL IV PUSH (08:36)
[2024-12-18] MEDS: MINERAL OIL/WHITE PETROLATUM OINTMENT 1 APPLIC EACH EYE ×2 (08:36→20:40)
[2024-12-18] MEDS: FUROSEMIDE INJ 40 MG/4 ML VIAL IV PUSH ×2 (08:36→20:40)
[2024-12-18] MEDS: ASPIRIN 81 MG CHEWABLE TABLET PO (08:37)
[2024-12-18] MEDS: VANCOMYCIN 2,000 MG/NS 500 ML 2,000 MG/500 ML BAG 250 MG IVPB (08:37)
[2024-12-18] MEDS: EMPAGLIFLOZIN 10 MG TABLET PO (08:37)
[2024-12-18] MEDS: ROSUVASTATIN 10 MG TABLET PO (08:37)
[2024-12-18] MEDS: MIDAZOLAM 100MG/NS 100ML(*CRX) 100 MG/100 ML BAG 7 MG IV CONT (08:46)
--- NOTE | 2024-12-18 09:13 | P.PNINT_ITS ---
Progress Note: A&P Assessment and Plan (1) Acute hypoxic respiratory failure: Code(s): J96.01 - Acute respiratory failure with hypoxia Status: Acute Assessment and Plan: Acute Respiratory failure secondary to congestive heart failure leading to pleural effusions and pulmonary edema. Patient also has bilateral atelectasis with questionable pneumonia 12/16 intubated and placed on mechanical ventilation CTA chest 12/17 IMPRESSION: No pulmonary embolus. No aortic dissection. Increasing bilateral pleural effusions with adjacent compressive atelectasis. Rim-enhancing fluid collection along the anterior abdominal wall measuring denser than simple fluid for which a perioperative seroma versus abscess (less likely) is suspected. Focused ultrasound may be performed for further evaluation. Continue full mechanical ventilation support to prevent hypoxemia/hypercarbia and end organ damage. ABG reviewed and continue CMV at tidal volume 420 rate 16 FiO2 40% and peep of 8 Continue Lasix for diuresis Consulted IR for thoracentesis starting with the left side. Plan for 12/18 Bronchodilators procalcitonin level was 0.4. Continue Zosyn azithromycin and add vancomycin due to positive MRSA on nasal screen Blood cultures were done on 12/14 and 12/16 for and have been negative Check sputum culture (2) Shock: Code(s): R57.9 - Shock, unspecified Status: Acute Assessment and Plan: Multifactorial. Likely secondary combination of sedation, questionable sepsis,? Cardiogenic Continue Levophed titration to maintain mean arterial pressure. (3) Acute exacerbation of CHF (congestive heart failure): Qualifiers: Heart failure type: combined systolic and diastolic Qualified Code(s): I50.43 - Acute on chronic combined systolic (congestive) and diastolic (congestive) heart failure Code(s): I50.9 - Heart failure, unspecified Status: Acute Assessment and Plan: Patient was recently diagnosed with congestive heart failure with EF of 40-45% and diastolic dysfunction. He was discharged on multiple medications but unfortunately was not taking any and was taking low-dose Lasix. Now presented with congestive heart failure with lower extremity edema pull effusions which has been gradually getting worse now leading to intubation and mechanical ventilation I will hold Entresto beta-garret due to hypotension Continue Levophed for ionotropic and blood pressure support Continue Lasix for diuresis Echo Summary 1. Left ventricular chamber dimension is moderately enlarged. 2. Left ventricular systolic function is moderately reduced, estimated at 30- 35. 3. There is mildly increased left ventricular wall thickness. 4. The left ventricular diastolic function is abnormal. 5. Right ventricular chamber dimension is mildly enlarged. 6. Right ventricular systolic function is reduced. 7. Left atrial chamber dimension is mildly enlarged. 8. Right atrial chamber dimension is mildly enlarged. 9. There is severe mitral valve regurgitation. 10. There is severe tricuspid valve regurgitation. 11. Moderate pulmonary hypertension, estimated pulmonary arterial systolic pressure is 53 mmHg. (4) Elevated troponin: Code(s): R79.89 - Other specified abnormal findings of blood chemistry Status: Acute Assessment and Plan: Chronically elevated troponin levels. Will discuss with Cardiology regarding workup for ischemic coronary disease Currently on aspirin Patient was not reporting any chest pain during the hospitalization prior to intubation (5) Atrial fibrillation: Qualifiers: Atrial fibrillation type: unspecified Qualified Code(s): I48.91 - Unspecified atrial fibrillation Code(s): I48.91 - Unspecified atrial fibrillation Status: Chronic Assessment and Plan: History of AFib in the chart but none of the past EKGs have shown AFib and also currently in sinus rhythm (6) Hyperlipidemia: Code(s): E78.5 - Hyperlipidemia, unspecified Status: Chronic Assessment and Plan: Continue statin (7) Bilateral pleural effusion: Code(s): J90 - Pleural effusion, not elsewhere classified Status: Acute Assessment and Plan: See above (8) Pneumonia: Qualifiers: Laterality: bilateral Lung location: lower lobe of lung Pneumonia type: due to unspecified organism Qualified Code(s): J18.9 - Pneumonia, unspecified organism Code(s): J18.9 - Pneumonia, unspecified organism Status: Acute Assessment and Plan: See above (9) Substance abuse: Code(s): F19.10 - Other psychoactive substance abuse, uncomplicated Status: Chronic Assessment and Plan: Long History of drug abuse including cocaine could be the etiology of his congestive heart failure. (10) Abdominal fluid collection: Code(s): R18.8 - Other ascites Status: Acute Assessment and Plan: CT scan of the abdomen shows Rim-enhancing fluid collection along the anterior abdominal wall measuring denser than simple fluid for which a perioperative seroma versus abscess (less likely) is suspected. Focused ultrasound may be performed for further evaluation.. Patient had abdominal surgery for umbilical hernia and small-bowel obstruction Patient was evaluated by General surgery and surgeon feels that this is likely a seroma. Ultrasound-guided drainage ordered and plan for tomorrow Continue antibiotics as above (11) Lower extremity edema: Code(s): R60.0 - Localized edema Status: Acute Assessment and Plan: Likely secondary to congestive heart failure. Will obtain venous Dopplers to rule out DVT as edema is asymmetric Plan DVT prophylaxis -Lovenox Stress ulcer prophylaxis -PPI Nutrition -continue Tube Feeds Code Status - Full Code I spoke to patient's son and at bedside and updated in the patient's status. I answered all their questions. Total Critical Care Time - 30 minutes Due to a high probability of clinically significant, life threatening deterioration, the patient required my highest level of preparedness to intervene emergently and I personally spent this critical care time directly and personally managing the patient. This critical care time included obtaining a history; examining the patient; pulse oximetry; ordering and review of studies; arranging urgent treatment with development of a management plan; evaluation of patient's response to treatment; frequent reassessment; and discussions with other providers. It was exclusive of separately billable procedures and treating other patients and teaching time. Please see Assessment and Plan section and the rest of the note for further information on patient assessment and treatment Subjective Date/time seen: 12/18/24 Overnight events reviewed. Low-grade fever Continues to be on mechanical ventilation 40% FiO2 Continues to be on Levophed Continues to be sedated with Versed and fentanyl Tolerating tube feed Improved urine output in response to diuretics Review of Systems Review of Systems: ROS unobtainable: Yes unobtainable due to endotracheal tube, unobtainable due to medical condition and unobtainable due to mental status Exam Narrative: General: Pt is sedated, intubated and on mechanical ventilation Lungs/Chest: Trachea central Coarse BS B/L, breath sounds are decreased on bases. Cardiac: RRR. Normal S1 S2. Systolic murmur 3/6 present Circulation: Pedal pulses are intact and symmetrical. Abdomen: Decreased bowel sounds. Obese. Soft. NT. ND. Extremities: Bilateral pitting edema present right > left : [place] in place Neurologic: Unable to assess due to sedation. Moves all 4 extremities to painful stimuli. PERRL Objective Data Vital Signs Vital Signs: Vital Signs - 24 hr 12/17/24 10:00 12/17/24 10:00 12/17/24 10:00 Temperature Pulse Rate 95 95 95 Respiratory Rate 20 20 Blood Pressure 100/74 Pulse Oximetry Oxygen Delivery Fraction of Inspired Oxygen 12/17/24 10:00 12/17/24 10:00 12/17/24 10:00 Temperature 37.2 C 37.2 C Pulse Rate 95 95 95 Respiratory Rate 20 20 Blood Pressure 100/74 100/74 Pulse Oximetry 98 98 Oxygen Delivery Fraction of Inspired Oxygen 12/17/24 11:03 12/17/24 12:00 12/17/24 12:00 Temperature Pulse Rate 95 Respiratory Rate Blood Pressure Pulse Oximetry 98 96 Oxygen Delivery Mechanical Ventilation Mechanical Ventilation Fraction of Inspired Oxygen 60 60 60 12/17/24 12:00 12/17/24 12:00 12/17/24 12:00 Temperature Pulse Rate 95 95 95 Respiratory Rate 20 20 Blood Pressure Pulse Oximetry Oxygen Delivery Fraction of Inspired Oxygen 12/17/24 12:00 12/17/24 12:00 12/17/24 13:37 Temperature 37.5 C Pulse Rate 95 95 96 Respiratory Rate 20 20 Blood Pressure 105/81 105/81 Pulse Oximetry 97 Oxygen Delivery Fraction of Inspired Oxygen 12/17/24 13:37 12/17/24 14:00 12/17/24 14:00 Temperature 37.6 C H Pulse Rate 96 96 96 Respiratory Rate 20 20 Blood Pressure 104/75 Pulse Oximetry 95 Oxygen Delivery Fraction of Inspired Oxygen 12/17/24 14:00 12/17/24 14:00 12/17/24 14:00 Temperature Pulse Rate 96 96 96 Respiratory Rate 20 20 Blood Pressure 104/75 Pulse Oximetry Oxygen Delivery Fraction of Inspired Oxygen 12/17/24 14:30 12/17/24 14:35 12/17/24 14:39 Temperature Pulse Rate 96 95 96 Respiratory Rate 20 96 H Blood Pressure Pulse Oximetry 96 Oxygen Delivery Mechanical Ventilation Fraction of Inspired Oxygen 60 12/17/24 16:00 12/17/24 16:00 12/17/24 16:00 Temperature 37.9 C H Pulse Rate 96 Respiratory Rate 16 Blood Pressure 100/68 Pulse Oximetry 93 93 Oxygen Delivery Mechanical Ventilation Fraction of Inspired Oxygen 60 60 12/17/24 16:00 12/17/24 16:00 12/17/24 16:00 Temperature Pulse Rate 96 96 96 Respiratory Rate 16 Blood Pressure 100/68 Pulse Oximetry Oxygen Delivery Fraction of Inspired Oxygen 12/17/24 16:00 12/17/24 17:00 12/17/24 17:42 Temperature Pulse Rate 96 97 Respiratory Rate 16 Blood Pressure Pulse Oximetry 96 Oxygen Delivery Mechanical Ventilation Fraction of Inspired Oxygen 50 50 12/17/24 18:00 12/17/24 18:00 12/17/24 18:00 Temperature 37.9 C H Pulse Rate 97 96 96 Respiratory Rate 20 20 Blood Pressure 103/73 Pulse Oximetry 96 Oxygen Delivery Fraction of Inspired Oxygen 12/17/24 18:00 12/17/24 18:00 12/17/24 19:54 Temperature Pulse Rate 96 96 97 Respiratory Rate 20 20 Blood Pressure 108/72 Pulse Oximetry Oxygen Delivery Fraction of Inspired Oxygen 12/17/24 19:55 12/17/24 20:00 12/17/24 20:00 Temperature 37.9 C H Pulse Rate 94 97 97 Respiratory Rate 20 20 Blood Pressure 96/69 L Pulse Oximetry 95 95 Oxygen Delivery Mechanical Ventilation Fraction of Inspired Oxygen 50 12/17/24 20:00 12/17/24 20:00 12/17/24 20:00 Temperature Pulse Rate 97 97 97 Respiratory Rate 20 Blood Pressure 96/69 L Pulse Oximetry Oxygen Delivery Fraction of Inspired Oxygen 12/17/24 20:00 12/17/24 20:00 12/17/24 21:00 Temperature 37.9 C H Pulse Rate 97 Respiratory Rate 20 Blood Pressure 96/69 L Pulse Oximetry 94 99 Oxygen Delivery Mechanical Ventilation Fraction of Inspired Oxygen 50 50 12/17/24 21:30 12/17/24 21:37 12/17/24 21:37 Temperature Pulse Rate 96 96 96 Respiratory Rate 20 20 Blood Pressure 110/93 H Pulse Oximetry Oxygen Delivery Fraction of Inspired Oxygen 12/17/24 21:50 12/17/24 22:00 12/17/24 22:00 Temperature 38.1 C H Pulse Rate 96 96 96 Respiratory Rate 20 20 Blood Pressure 79/61 L Pulse Oximetry 95 Oxygen Delivery Fraction of Inspired Oxygen 12/17/24 22:00 12/17/24 22:00 12/17/24 22:00 Temperature Pulse Rate 96 96 96 Respiratory Rate 20 20 Blood Pressure 79/61 L Pulse Oximetry 96 Oxygen Delivery Fraction of Inspired Oxygen 12/17/24 22:00 12/17/24 22:01 12/17/24 22:15 Temperature 38.1 C H 38.1 C H 38.1 C H Pulse Rate 96 96 96 Respiratory Rate 20 21 H 20 Blood Pressure 79/61 L 77/61 L Pulse Oximetry 96 95 98 Oxygen Delivery Fraction of Inspired Oxygen 12/17/24 22:16 12/17/24 22:17 12/17/24 22:26 Temperature 38.1 C H 38.1 C H Pulse Rate 96 96 96 Respiratory Rate 20 16 Blood Pressure 77/61 L 117/81 Pulse Oximetry 98 99 Oxygen Delivery Fraction of Inspired Oxygen 12/17/24 22:30 12/17/24 22:37 12/17/24 22:45 Temperature 38.2 C H 38.2 C H 38.2 C H Pulse Rate 95 94 96 Respiratory Rate 20 20 20 Blood Pressure 88/67 L Pulse Oximetry 97 96 95 Oxygen Delivery Fraction of Inspired Oxygen 12/17/24 22:46 12/17/24 23:00 12/17/24 23:01 Temperature 38.2 C H 38.2 C H 38.2 C H Pulse Rate 96 97 96 Respiratory Rate 20 20 20 Blood Pressure 118/85 125/77 Pulse Oximetry 96 97 97 Oxygen Delivery Fraction of Inspired Oxygen 12/17/24 23:13 12/17/24 23:14 12/17/24 23:15 Temperature 38.2 C H Pulse Rate 99 97 97 Respiratory Rate 20 Blood Pressure 125/77 119/84 Pulse Oximetry 95 Oxygen Delivery Mechanical Ventilation Fraction of Inspired Oxygen 50 12/17/24 23:16 12/17/24 23:30 12/17/24 23:31 Temperature 38.2 C H 38.3 C H 38.3 C H Pulse Rate 97 98 97 Respiratory Rate 20 20 20 Blood Pressure 122/86 Pulse Oximetry 95 96 96 Oxygen Delivery Fraction of Inspired Oxygen 12/17/24 23:40 12/17/24 23:45 12/17/24 23:46 Temperature 38.3 C H 38.3 C H Pulse Rate 98 101 H 99 Respiratory Rate 18 20 Blood Pressure 122/86 101/72 Pulse Oximetry 96 97 Oxygen Delivery Fraction of Inspired Oxygen 12/18/24 00:00 12/18/24 00:00 12/18/24 00:00 Temperature 38.4 C H Pulse Rate 98 98 100 Respiratory Rate 20 20 20 Blood Pressure 120/85 Pulse Oximetry 94 Oxygen Delivery Fraction of Inspired Oxygen 12/18/24 00:00 12/18/24 00:00 12/18/24 00:00 Temperature Pulse Rate 97 Respiratory Rate Blood Pressure Pulse Oximetry 95 Oxygen Delivery Mechanical Ventilation Fraction of Inspired Oxygen 50 50 12/18/24 00:00 12/18/24 00:01 12/18/24 00:15 Temperature 38.4 C H 38.4 C H 38.4 C H Pulse Rate 97 97 97 Respiratory Rate 20 16 13 Blood Pressure 120/85 Pulse Oximetry 94 95 91 Oxygen Delivery Fraction of Inspired Oxygen 12/18/24 00:16 12/18/24 00:30 12/18/24 00:31 Temperature 38.4 C H 38.4 C H 38.4 C H Pulse Rate 97 98 97 Respiratory Rate 20 20 20 Blood Pressure 105/80 115/82 Pulse Oximetry 94 94 95 Oxygen Delivery Fraction of Inspired Oxygen 12/18/24 00:45 12/18/24 00:46 12/18/24 00:46 Temperature 38.4 C H 38.4 C H 38.4 C H Pulse Rate 97 97 Respiratory Rate 20 20 Blood Pressure 118/82 Pulse Oximetry 90 94 Oxygen Delivery Fraction of Inspired Oxygen 12/18/24 00:47 12/18/24 01:00 12/18/24 01:01 Temperature 38.4 C H 38.4 C H Pulse Rate 97 97 97 Respiratory Rate 20 20 Blood Pressure 118/82 124/88 Pulse Oximetry 95 95 Oxygen Delivery Fraction of Inspired Oxygen 12/18/24 01:15 12/18/24 01:16 12/18/24 01:30 Temperature 38.4 C H 38.4 C H 38.4 C H Pulse Rate 100 106 H 97 Respiratory Rate 20 20 20 Blood Pressure 130/90 Pulse Oximetry 95 95 94 Oxygen Delivery Fraction of Inspired Oxygen 12/18/24 01:31 12/18/24 01:36 12/18/24 01:38 Temperature 38.4 C H Pulse Rate 100 97 99 Respiratory Rate 21 H 20 Blood Pressure 122/80 Pulse Oximetry 94 94 Oxygen Delivery Mechanical Ventilation Fraction of Inspired Oxygen 50 12/18/24 01:43 12/18/24 01:43 12/18/24 01:45 Temperature 38.4 C H Pulse Rate 99 99 99 Respiratory Rate 18 Blood Pressure 122/80 122/80 Pulse Oximetry 96 Oxygen Delivery Fraction of Inspired Oxygen 12/18/24 01:46 12/18/24 01:46 12/18/24 01:51 Temperature 38.4 C H 38.4 C H Pulse Rate 101 H 93 Respiratory Rate 20 20 Blood Pressure 84/67 L Pulse Oximetry 93 Oxygen Delivery Fraction of Inspired Oxygen 12/18/24 02:00 12/18/24 02:00 12/18/24 02:00 Temperature 38.4 C H Pulse Rate 97 97 97 Respiratory Rate 20 23 H Blood Pressure 96/66 L 96/66 L Pulse Oximetry 94 95 Oxygen Delivery Fraction of Inspired Oxygen 12/18/24 02:00 12/18/24 02:00 12/18/24 02:01 Temperature 38.4 C H Pulse Rate 97 97 102 H Respiratory Rate 20 20 20 Blood Pressure Pulse Oximetry 94 Oxygen Delivery Fraction of Inspired Oxygen 12/18/24 02:16 12/18/24 02:17 12/18/24 02:30 Temperature 38.3 C H 38.3 C H 38.3 C H Pulse Rate 99 98 96 Respiratory Rate 20 18 20 Blood Pressure 98/72 L Pulse Oximetry 95 95 97 Oxygen Delivery Fraction of Inspired Oxygen 12/18/24 02:31 12/18/24 02:45 12/18/24 02:46 Temperature 38.3 C H 38.2 C H 38.2 C H Pulse Rate 99 99 96 Respiratory Rate 20 20 16 Blood Pressure 84/64 L 90/64 L Pulse Oximetry 97 96 96 Oxygen Delivery Fraction of Inspired Oxygen 12/18/24 02:55 12/18/24 03:00 12/18/24 03:01 Temperature 38.1 C H 38.1 C H Pulse Rate 102 H 95 101 H Respiratory Rate 18 16 Blood Pressure 90/64 L 99/83 L Pulse Oximetry 97 97 Oxygen Delivery Fraction of Inspired Oxygen 12/18/24 03:15 12/18/24 03:16 12/18/24 03:30 Temperature 37.9 C H 37.9 C H 37.8 C H Pulse Rate 98 94 105 H Respiratory Rate 22 H 14 16 Blood Pressure 110/65 Pulse Oximetry 95 94 94 Oxygen Delivery Fraction of Inspired Oxygen 12/18/24 03:31 12/18/24 03:35 12/18/24 03:35 Temperature 37.8 C H Pulse Rate 101 H Respiratory Rate 13 Blood Pressure 95/73 L Pulse Oximetry 98 96 Oxygen Delivery Mechanical Ventilation Fraction of Inspired Oxygen 50 50 12/18/24 03:45 12/18/24 03:46 12/18/24 04:00 Temperature 37.7 C H 37.7 C H Pulse Rate 96 96 97 Respiratory Rate 0 L 5 L Blood Pressure 103/82 Pulse Oximetry 96 97 Oxygen Delivery Fraction of Inspired Oxygen 12/18/24 04:00 12/18/24 04:00 12/18/24 04:00 Temperature 37.6 C H 37.7 C H Pulse Rate 97 98 97 Respiratory Rate 20 13 20 Blood Pressure 102/78 Pulse Oximetry 98 97 Oxygen Delivery Fraction of Inspired Oxygen 12/18/24 04:00 12/18/24 04:00 12/18/24 04:01 Temperature 37.7 C H Pulse Rate 97 97 97 Respiratory Rate 20 20 Blood Pressure 97/62 L 97/62 L Pulse Oximetry 98 Oxygen Delivery Fraction of Inspired Oxygen 12/18/24 04:15 12/18/24 04:16 12/18/24 04:30 Temperature 37.6 C H 37.6 C H 37.6 C Pulse Rate 97 97 96 Respiratory Rate 11 L 20 13 Blood Pressure 102/78 Pulse Oximetry 97 98 96 Oxygen Delivery Fraction of Inspired Oxygen 12/18/24 04:31 12/18/24 04:45 12/18/24 04:46 Temperature 37.6 C 37.6 C 37.6 C Pulse Rate 96 97 97 Respiratory Rate 18 14 12 Blood Pressure 103/67 96/73 L Pulse Oximetry 98 95 97 Oxygen Delivery Fraction of Inspired Oxygen 12/18/24 05:03 12/18/24 06:00 12/18/24 06:00 Temperature Pulse Rate 96 96 96 Respiratory Rate 20 Blood Pressure 116/80 Pulse Oximetry 97 Oxygen Delivery Mechanical Ventilation Fraction of Inspired Oxygen 50 12/18/24 06:00 12/18/24 06:00 12/18/24 06:00 Temperature Pulse Rate 96 96 96 Respiratory Rate 20 20 Blood Pressure 107/71 Pulse Oximetry 98 Oxygen Delivery Fraction of Inspired Oxygen 12/18/24 06:28 12/18/24 08:00 12/18/24 08:45 Temperature 37.6 C H Pulse Rate 96 102 H Respiratory Rate 16 13 Blood Pressure 103/74 Pulse Oximetry 97 Oxygen Delivery Fraction of Inspired Oxygen 40 12/18/24 08:45 12/18/24 08:46 12/18/24 08:46 Temperature Pulse Rate 98 97 104 H Respiratory Rate 13 13 13 Blood Pressure Pulse Oximetry Oxygen Delivery Fraction of Inspired Oxygen 12/18/24 09:00 12/18/24 09:00 12/18/24 09:07 Temperature Pulse Rate 106 H 106 H 97 Respiratory Rate 16 16 Blood Pressure Pulse Oximetry 95 Oxygen Delivery Mechanical Ventilation Fraction of Inspired Oxygen 40 Intake/Output Intake/Output: Intake & Output 12/15/24 12/16/24 12/17/24 12/18/24 23:59 23:59 23:59 23:59 Intake Total 1420 1520 984.6 957.6 Output Total 900 1000 1725 1250 Balance 520 520 -740.4 -292.4 Meds/Results Medications: Active Medications Generic Name Dose Route Start Last Admin Trade Name Freq PRN Reason Stop Dose Admin Acetaminophen 650 mg 12/14/24 20:56 12/18/24 00:46 Acetaminophen 325 Mg Tablet PO 650 mg Q4H PRN Administration Mild Pain (1-3) or Fever Albuterol 2.5 mg 12/14/24 21:44 Albuterol Sulfate Neb 2.5 Mg/3 Ml Inh INHALATION Q4HRT PRN Shortness Of Breath Or Wheezing Albuterol/Ipratropium 3 ml 12/15/24 02:00 12/18/24 09:02 Ipratropium 0.5 Mg/Albuterol Sulfate 2.5 Mg Ampul.Neb 3 Ml INHALATION 3 ml Q6HRT REJI Administration Aspirin 81 mg 12/17/24 09:00 12/18/24 08:37 Aspirin 81 Mg Chewable Tablet PO 81 mg DAILY REJI Administration Dextrose 12.5 gm 12/17/24 08:17 Dextrose 50% 25 Gm/50 Ml Syringe IV PUSH PRN PRN Hypoglycemia Protocol Empagliflozin 10 mg 12/15/24 09:00 12/18/24 08:37 Empagliflozin 10 Mg Tablet PO 10 mg DAILY REJI Administration Enoxaparin Sodium 40 mg 12/15/24 09:00 12/18/24 08:36 Enoxaparin 40 Mg/0.4 Ml Syringe SUB-Q 40 mg DAILY REJI Administration Furosemide 40 mg 12/15/24 09:00 12/18/24 08:36 Furosemide Inj 40 Mg/4 Ml Vial IV PUSH 40 mg Q12HR REJI Administration Glucagon 1 mg 12/17/24 08:17 Glucagon For Inj 1 Mg Vial IM PRN PRN Hypoglycemia Protocol Glucose 15 gm 12/17/24 08:17 Glucose Oral Gel 15 Gm Of Glucse In 37.5 Gm Tube PO PRN PRN Hypoglycemia Protocol Azithromycin 500 mg in 250 mls @ 250 mls/hr 12/15/24 22:00 12/17/24 23:48 Zithromax IVPB Infused Q24H REJI Infusion Fentanyl Citrate 2,500 mcg in 250 mls @ 12.5 mls/hr 12/17/24 00:05 12/18/24 08:45 Fentanyl 2,500 Mcg/Ns 250 Ml IV CONT 125 mcg/hr .Q20H REJI 12.5 mls/hr Titration Protocol 125 MCG/HR Midazolam HCl 100 mg in 100 mls @ 7 mls/hr 12/17/24 00:05 12/18/24 08:46 Versed 100 Mg/Ns 100 Ml IV CONT 7 mg/hr .[id number] REJI 7 mls/hr Administration Protocol 7 MG/HR Norepinephrine Bitartrate 8 mg in 250 mls @ 9.375 mls/hr 12/17/24 01:05 12/18/24 06:00 Levophed 8 Mg/D5w 250 Ml IV CONT 5 mcg/min .Q24H REJI 9.38 mls/hr Titration Protocol 5 MCG/MIN Dextrose 1,000 mls @ 100 mls/hr 12/17/24 08:17 Dextrose 5% 1,000 Ml IVPB PRN PRN Hypoglycemia Protocol Piperacillin/Tazobactam/Dextrose 3.375 gm in 50 mls @ 100 mls/hr 12/17/24 09:00 12/18/24 08:37 Zosyn 3.375 Gm/Ns 50 Ml IVPB 100 mls/hr Q6H REJI Administration Vancomycin HCl 2,000 mg in 500 mls @ 250 mls/hr 12/18/24 08:06 12/18/24 08:37 Vancomycin 2,000 Mg/Ns 500 Ml IVPB 12/18/24 10:05 250 mls/hr ONCE ONE Administration Insulin Aspart 3 - 6 units 12/17/24 12:00 12/18/24 05:46 Insulin Aspart (*Bkc) 100 Units/Ml SUB-Q Not Given Q6HR REJI Protocol Multi-Ingred Cream/Lotion/Oil/Oint 1 applic 12/17/24 09:00 12/18/24 08:36 Mineral Oil/White Petrolatum Ointment EACH EYE 1 applic Q12HR REJI Administration Pantoprazole Sodium 40 mg 12/17/24 09:00 12/18/24 08:36 Pantoprazole Sodium Iv 40 Mg Vial IV PUSH 40 mg DAILY REJI Administration Potassium Chloride 40 meq 12/18/24 08:00 12/18/24 08:36 Potassium Chloride 20 Meq Packet (For Liquid) FEED TUBE 12/18/24 14:01 40 meq Q6H REJI Administration Rosuvastatin Calcium 10 mg 12/15/24 09:00 12/18/24 08:37 Rosuvastatin 10 Mg Tablet PO 10 mg QAM REJI Administration Sacubitril/Valsartan 1 tab 12/15/24 09:00 12/16/24 21:45 Sacubitril/Valsartan 24-26 Mg Tablet PO 1 tab Q12HR REJI Administration Sodium Chloride 10 ml 12/17/24 06:00 12/18/24 05:40 Central Line Flush IV PUSH 10 ml Q8HR REJI Administration Sodium Chloride 20 ml 12/17/24 00:03 Central Line Flush IV PUSH PRN PRN after blood draws Sodium Chloride 10 ml 12/17/24 06:00 12/18/24 05:40 Central Line Flush IV PUSH 10 ml Q8HR REJI Administration Sodium Chloride 20 ml 12/17/24 00:05 12/18/24 05:40 Central Line Flush IV PUSH 20 ml PRN PRN Administration after blood draws Vancomycin HCl 1 each 12/18/24 07:35 Vancomycin Pharmacist To Dose IVPB PER PROTOCOL [facility] Radiology Results: ITS Impressions Chest CTA 12/16/24 13:43 IMPRESSION: No pulmonary embolus. No thoracic aortic dissection. Findings suggesting congestive failure, with large bilateral pleural effusions and intra-abdominal ascites. Abdomen X-Ray 12/17/24 07:07 IMPRESSION: Orogastric tube in good position and ready for immediate use. Remainder of examination is unchanged Head CT 12/17/24 07:09 Impression: No acute intracranial hemorrhage or suspicious mass effect. Chest/Abdomen/Pelvis CTA 12/17/24 07:41 IMPRESSION: No pulmonary embolus. No aortic dissection. Increasing bilateral pleural effusions with adjacent compressive atelectasis. Rim-enhancing fluid collection along the anterior abdominal wall measuring denser than simple fluid for which a perioperative seroma versus abscess (less likely) is suspected. Focused ultrasound may be performed for further evaluation. Chest X-Ray 12/18/24 07:17 IMPRESSION: Mild pulmonary vascular congestion with small on the right and moderate on the left, pleural effusions, decreased from previous examination. Supportive lines and tubes in good position. Labs Labs: Laboratory Results - last 24 hr 12/17/24 12/17/24 12/17/24 04:27 09:13 09:31 WBC RBC Hgb Hct MCV MCH MCHC RDW Plt Count MPV Immature Gran % (Auto) Neut % (Auto) Lymph % (Auto) [place] % (Auto) Eos % (Auto) Baso % (Auto) Lymph # (Auto) [place] # (Auto) Eos # (Auto) Baso # (Auto) Abs Immat Gran (auto) Absolute Neuts (auto) Absolute Nucleated RBC Nucleated RBC % PT INR APTT Puncture Site ABG pH ABG pCO2 ABG pO2 ABG PO2/FiO2 Ratio ABG HCO3 ABG O2 Saturation ABG O2 Content ABG Base Excess A-a Gradient Oxyhemoglobin Carboxyhemoglobin Methemoglobin Reduced Hemoglobin Total Hemoglobin O2 Delivery Device O2 Liters/Min Minute Volume Vent Rate Vent Mode FiO2 Tidal Volume PEEP Peak Inspir Pressure Pressure Support Sodium Potassium Chloride Carbon Dioxide Anion Gap BUN Creatinine Estim Creat Clear Calc Estimated GFR Glucose POC Capillary Glucose Calcium Phosphorus Total Bilirubin AST ALT Alkaline Phosphatase Lactate Dehydrogenase 279 H Total Protein Albumin Procalcitonin 0.4 Urine Color Yellow Urine Appearance Clear Urine pH 7.5 Ur Specific [place] 1.017 Urine Protein Negative Urine Glucose (UA) Negative Urine Ketones Negative Ur Blood (Man) Negative Urine Nitrate Negative Urine Bilirubin Negative Urine Urobilinogen 1.0 Add Ur Microanalysis Reviewed Leukocyte Esterase Rfl 1+ H Urine RBC 0-2 Urine WBC 0-5 Ur Squamous Epith Cells None seen Urine Bacteria None seen Urine Casts 0-2 12/17/24 12/17/24 12/17/24 12:28 17:15 23:47 WBC RBC Hgb Hct MCV MCH MCHC RDW Plt Count MPV Immature Gran % (Auto) Neut % (Auto) Lymph % (Auto) [place] % (Auto) Eos % (Auto) Baso % (Auto) Lymph # (Auto) [place] # (Auto) Eos # (Auto) Baso # (Auto) Abs Immat Gran (auto) Absolute Neuts (auto) Absolute Nucleated RBC Nucleated RBC % PT INR APTT Puncture Site ABG pH ABG pCO2 ABG pO2 ABG PO2/FiO2 Ratio ABG HCO3 ABG O2 Saturation ABG O2 Content ABG Base Excess A-a Gradient Oxyhemoglobin Carboxyhemoglobin Methemoglobin Reduced Hemoglobin Total Hemoglobin O2 Delivery Device O2 Liters/Min Minute Volume Vent Rate Vent Mode FiO2 Tidal Volume PEEP Peak Inspir Pressure Pressure Support Sodium Potassium Chloride Carbon Dioxide Anion Gap BUN Creatinine Estim Creat Clear Calc Estimated GFR Glucose POC Capillary Glucose 89 123 H 132 H Calcium Phosphorus Total Bilirubin AST ALT Alkaline Phosphatase Lactate Dehydrogenase Total Protein Albumin Procalcitonin Urine Color Urine Appearance Urine pH Ur Specific [place] Urine Protein Urine Glucose (UA) Urine Ketones Ur Blood (Man) Urine Nitrate Urine Bilirubin Urine Urobilinogen Add Ur Microanalysis Leukocyte Esterase Rfl Urine RBC Urine WBC Ur Squamous Epith Cells Urine Bacteria Urine Casts 12/18/24 12/18/24 04:56 05:13 WBC 11.7 H RBC 4.49 L Hgb 11.1 L Hct 36.4 L MCV 81.1 MCH 24.7 L MCHC 30.5 L RDW 18.2 H Plt Count 243 MPV 9.6 Immature Gran % (Auto) 0.3 Neut % (Auto) 61.1 Lymph % (Auto) 24.7 [place] % (Auto) 11.7 H Eos % (Auto) 1.5 Baso % (Auto) 0.7 Lymph # (Auto) 2.88 [place] # (Auto) 1.4 H Eos # (Auto) 0.2 Baso # (Auto) 0.1 Abs Immat Gran (auto) 0.03 Absolute Neuts (auto) 7.2 H Absolute Nucleated RBC 0.000 Nucleated RBC % 0.0 PT 16.6 H INR 1.3 APTT 36.4 Puncture Site Right radial ABG pH 7.526 H* ABG pCO2 36.8 ABG pO2 111.9 H ABG PO2/FiO2 Ratio 2.24 ABG HCO3 29.8 H ABG O2 Saturation 98.5 ABG O2 Content 17.0 ABG Base Excess 6.8 A-a Gradient 203.2 Oxyhemoglobin 97.2 Carboxyhemoglobin 0.8 Methemoglobin 0.3 Reduced Hemoglobin 1.7 Total Hemoglobin 12.3 O2 Delivery Device Ventilator O2 Liters/Min Not Reportable Minute Volume Not Reportable Vent Rate 20 Vent Mode Cmv FiO2 50 Tidal Volume 420 PEEP 8 Peak Inspir Pressure Not Reportable Pressure Support Not Reportable Sodium 138 Potassium 3.6 Chloride 98 Carbon Dioxide 35 H Anion Gap 5 BUN 32 H Creatinine 1.11 Estim Creat Clear Calc 46 Estimated GFR > 60 Glucose 115 H POC Capillary Glucose Calcium 8.0 L Phosphorus 3.9 Total Bilirubin 1.1 AST 77 H ALT 59 H Alkaline Phosphatase 61 Lactate Dehydrogenase Total Protein 6.1 L Albumin 3.2 L Procalcitonin Urine Color Urine Appearance Urine pH Ur Specific [place] Urine Protein Urine Glucose (UA) Urine Ketones Ur Blood (Man) Urine Nitrate Urine Bilirubin Urine Urobilinogen Add Ur Microanalysis Leukocyte Esterase Rfl Urine RBC Urine WBC Ur Squamous Epith Cells Urine Bacteria Urine Casts Quality VTE Prophylaxis VTE prophylaxis: pharmacologic ordered
--- NOTE | 2024-12-18 13:00 | P.PNCA_ITS ---
Progress Note: A&P Assessment and Plan (1) Acute exacerbation of CHF (congestive heart failure): Code(s): I50.9 - Heart failure, unspecified Status: Acute Plan Acute on chronic systolic heart failure Acute hypoxemic respiratory failure secondary to CHF Severe mitral regurgitation Severe pulmonary hypertension Plan IV diuresis: goal -ve 2 to 3 L Entresto DC beta-garret Consider RODERICK for evaluation of mitral regurgitation Watch kidney function electrolytes Subjective Date/time seen: 12/18/24 13:00 Interval history: No acute events Sinus rhythm Review of Systems Review of Systems: All systems reviewed & are unremarkable except as noted in HPI and below Exam Narrative: General: Pt is sedated, intubated and on mechanical ventilation Lungs/Chest: Trachea central Coarse BS B/L, breath sounds are decreased on bases. Cardiac: RRR. Normal S1 S2. Systolic murmur 3/6 present Circulation: Pedal pulses are intact and symmetrical. Abdomen: Decreased bowel sounds. Obese. Soft. NT. ND. Extremities: Bilateral pitting edema present : [place] in place Neurologic: Unable to assess due to sedation. Moves all 4 extremities to painf ul stimuli. PERRL Objective Data Vital Signs Vital Signs: Vital Signs - 24 hr 12/17/24 13:37 12/17/24 13:37 12/17/24 14:00 Temperature 37.6 C H Pulse Rate 96 96 96 Respiratory Rate 20 20 20 Blood Pressure 104/75 Pulse Oximetry 95 Oxygen Delivery Fraction of Inspired Oxygen 12/17/24 14:00 12/17/24 14:00 12/17/24 14:00 Temperature Pulse Rate 96 96 96 Respiratory Rate 20 Blood Pressure 104/75 Pulse Oximetry Oxygen Delivery Fraction of Inspired Oxygen 12/17/24 14:00 12/17/24 14:30 12/17/24 14:35 Temperature Pulse Rate 96 96 95 Respiratory Rate 20 20 Blood Pressure Pulse Oximetry 96 Oxygen Delivery Mechanical Ventilation Fraction of Inspired Oxygen 60 12/17/24 14:39 12/17/24 16:00 12/17/24 16:00 Temperature Pulse Rate 96 Respiratory Rate 96 H Blood Pressure Pulse Oximetry 93 Oxygen Delivery Mechanical Ventilation Fraction of Inspired Oxygen 60 60 12/17/24 16:00 12/17/24 16:00 12/17/24 16:00 Temperature 37.9 C H Pulse Rate 96 96 96 Respiratory Rate 16 16 Blood Pressure 100/68 Pulse Oximetry 93 Oxygen Delivery Fraction of Inspired Oxygen 12/17/24 16:00 12/17/24 16:00 12/17/24 17:00 Temperature Pulse Rate 96 96 97 Respiratory Rate 16 Blood Pressure 100/68 Pulse Oximetry 96 Oxygen Delivery Mechanical Ventilation Fraction of Inspired Oxygen 50 12/17/24 17:42 12/17/24 18:00 12/17/24 18:00 Temperature 37.9 C H Pulse Rate 97 96 Respiratory Rate 20 Blood Pressure 103/73 Pulse Oximetry 96 Oxygen Delivery Fraction of Inspired Oxygen 50 12/17/24 18:00 12/17/24 18:00 12/17/24 18:00 Temperature Pulse Rate 96 96 96 Respiratory Rate 20 20 Blood Pressure 108/72 Pulse Oximetry Oxygen Delivery Fraction of Inspired Oxygen 12/17/24 19:54 12/17/24 19:55 12/17/24 20:00 Temperature 37.9 C H Pulse Rate 97 94 97 Respiratory Rate 20 20 Blood Pressure 96/69 L Pulse Oximetry 95 95 Oxygen Delivery Mechanical Ventilation Fraction of Inspired Oxygen 50 12/17/24 20:00 12/17/24 20:00 12/17/24 20:00 Temperature Pulse Rate 97 97 97 Respiratory Rate 20 20 Blood Pressure 96/69 L Pulse Oximetry Oxygen Delivery Fraction of Inspired Oxygen 12/17/24 20:00 12/17/24 20:00 12/17/24 20:00 Temperature 37.9 C H Pulse Rate 97 97 Respiratory Rate 20 Blood Pressure 96/69 L Pulse Oximetry 94 Oxygen Delivery Fraction of Inspired Oxygen 50 12/17/24 21:00 12/17/24 21:30 12/17/24 21:37 Temperature Pulse Rate 96 96 Respiratory Rate 20 Blood Pressure 110/93 H Pulse Oximetry 99 Oxygen Delivery Mechanical Ventilation Fraction of Inspired Oxygen 50 12/17/24 21:37 12/17/24 21:50 12/17/24 22:00 Temperature 38.1 C H Pulse Rate 96 96 96 Respiratory Rate 20 20 Blood Pressure 79/61 L Pulse Oximetry 95 Oxygen Delivery Fraction of Inspired Oxygen 12/17/24 22:00 12/17/24 22:00 12/17/24 22:00 Temperature Pulse Rate 96 96 96 Respiratory Rate 20 20 Blood Pressure Pulse Oximetry Oxygen Delivery Fraction of Inspired Oxygen 12/17/24 22:00 12/17/24 22:00 12/17/24 22:01 Temperature 38.1 C H 38.1 C H Pulse Rate 96 96 96 Respiratory Rate 20 20 21 H Blood Pressure 79/61 L 79/61 L Pulse Oximetry 96 96 95 Oxygen Delivery Fraction of Inspired Oxygen 12/17/24 22:15 12/17/24 22:16 12/17/24 22:17 Temperature 38.1 C H 38.1 C H Pulse Rate 96 96 96 Respiratory Rate 20 20 Blood Pressure 77/61 L 77/61 L Pulse Oximetry 98 98 Oxygen Delivery Fraction of Inspired Oxygen 12/17/24 22:26 12/17/24 22:30 12/17/24 22:37 Temperature 38.1 C H 38.2 C H 38.2 C H Pulse Rate 96 95 94 Respiratory Rate 16 20 20 Blood Pressure 117/81 88/67 L Pulse Oximetry 99 97 96 Oxygen Delivery Fraction of Inspired Oxygen 12/17/24 22:45 12/17/24 22:46 12/17/24 23:00 Temperature 38.2 C H 38.2 C H 38.2 C H Pulse Rate 96 96 97 Respiratory Rate 20 20 20 Blood Pressure 118/85 Pulse Oximetry 95 96 97 Oxygen Delivery Fraction of Inspired Oxygen 12/17/24 23:01 12/17/24 23:13 12/17/24 23:14 Temperature 38.2 C H Pulse Rate 96 99 97 Respiratory Rate 20 Blood Pressure 125/77 125/77 Pulse Oximetry 97 95 Oxygen Delivery Mechanical Ventilation Fraction of Inspired Oxygen 50 12/17/24 23:15 12/17/24 23:16 12/17/24 23:30 Temperature 38.2 C H 38.2 C H 38.3 C H Pulse Rate 97 97 98 Respiratory Rate 20 20 20 Blood Pressure 119/84 Pulse Oximetry 95 96 Oxygen Delivery Fraction of Inspired Oxygen 12/17/24 23:31 12/17/24 23:40 12/17/24 23:45 Temperature 38.3 C H 38.3 C H Pulse Rate 97 98 101 H Respiratory Rate 20 18 Blood Pressure 122/86 122/86 Pulse Oximetry 96 96 Oxygen Delivery Fraction of Inspired Oxygen 12/17/24 23:46 12/18/24 00:00 12/18/24 00:00 Temperature 38.3 C H Pulse Rate 99 98 98 Respiratory Rate 20 20 20 Blood Pressure 101/72 Pulse Oximetry 97 Oxygen Delivery Fraction of Inspired Oxygen 12/18/24 00:00 12/18/24 00:00 12/18/24 00:00 Temperature 38.4 C H Pulse Rate 100 97 Respiratory Rate 20 Blood Pressure 120/85 Pulse Oximetry 94 95 Oxygen Delivery Mechanical Ventilation Fraction of Inspired Oxygen 50 12/18/24 00:00 12/18/24 00:00 12/18/24 00:01 Temperature 38.4 C H 38.4 C H Pulse Rate 97 97 Respiratory Rate 20 16 Blood Pressure 120/85 Pulse Oximetry 94 95 Oxygen Delivery Fraction of Inspired Oxygen 50 12/18/24 00:15 12/18/24 00:16 12/18/24 00:30 Temperature 38.4 C H 38.4 C H 38.4 C H Pulse Rate 97 97 98 Respiratory Rate 13 20 20 Blood Pressure 105/80 Pulse Oximetry 91 94 94 Oxygen Delivery Fraction of Inspired Oxygen 12/18/24 00:31 12/18/24 00:45 12/18/24 00:46 Temperature 38.4 C H 38.4 C H 38.4 C H Pulse Rate 97 97 Respiratory Rate 20 20 Blood Pressure 115/82 Pulse Oximetry 95 90 Oxygen Delivery Fraction of Inspired Oxygen 12/18/24 00:46 12/18/24 00:47 12/18/24 01:00 Temperature 38.4 C H 38.4 C H Pulse Rate 97 97 97 Respiratory Rate 20 20 Blood Pressure 118/82 118/82 124/88 Pulse Oximetry 94 95 Oxygen Delivery Fraction of Inspired Oxygen 12/18/24 01:01 12/18/24 01:15 12/18/24 01:16 Temperature 38.4 C H 38.4 C H 38.4 C H Pulse Rate 97 100 106 H Respiratory Rate 20 20 20 Blood Pressure 130/90 Pulse Oximetry 95 95 95 Oxygen Delivery Fraction of Inspired Oxygen 12/18/24 01:30 12/18/24 01:31 12/18/24 01:36 Temperature 38.4 C H 38.4 C H Pulse Rate 97 100 97 Respiratory Rate 20 21 H 20 Blood Pressure 122/80 Pulse Oximetry 94 94 Oxygen Delivery Fraction of Inspired Oxygen 12/18/24 01:38 12/18/24 01:43 12/18/24 01:43 Temperature Pulse Rate 99 99 99 Respiratory Rate Blood Pressure 122/80 122/80 Pulse Oximetry 94 Oxygen Delivery Mechanical Ventilation Fraction of Inspired Oxygen 50 12/18/24 01:45 12/18/24 01:46 12/18/24 01:46 Temperature 38.4 C H 38.4 C H 38.4 C H Pulse Rate 99 101 H Respiratory Rate 18 20 Blood Pressure 84/67 L Pulse Oximetry 96 93 Oxygen Delivery Fraction of Inspired Oxygen 12/18/24 01:51 12/18/24 02:00 12/18/24 02:00 Temperature Pulse Rate 93 97 97 Respiratory Rate 20 20 Blood Pressure 96/66 L Pulse Oximetry 94 Oxygen Delivery Fraction of Inspired Oxygen 12/18/24 02:00 12/18/24 02:00 12/18/24 02:00 Temperature 38.4 C H Pulse Rate 97 97 97 Respiratory Rate 23 H 20 20 Blood Pressure 96/66 L Pulse Oximetry 95 Oxygen Delivery Fraction of Inspired Oxygen 12/18/24 02:01 12/18/24 02:16 12/18/24 02:17 Temperature 38.4 C H 38.3 C H 38.3 C H Pulse Rate 102 H 99 98 Respiratory Rate 20 20 18 Blood Pressure 98/72 L Pulse Oximetry 94 95 95 Oxygen Delivery Fraction of Inspired Oxygen 12/18/24 02:30 12/18/24 02:31 12/18/24 02:45 Temperature 38.3 C H 38.3 C H 38.2 C H Pulse Rate 96 99 99 Respiratory Rate 20 20 20 Blood Pressure 84/64 L Pulse Oximetry 97 97 96 Oxygen Delivery Fraction of Inspired Oxygen 12/18/24 02:46 12/18/24 02:55 12/18/24 03:00 Temperature 38.2 C H 38.1 C H Pulse Rate 96 102 H 95 Respiratory Rate 16 18 Blood Pressure 90/64 L 90/64 L 99/83 L Pulse Oximetry 96 97 Oxygen Delivery Fraction of Inspired Oxygen 12/18/24 03:01 12/18/24 03:15 12/18/24 03:16 Temperature 38.1 C H 37.9 C H 37.9 C H Pulse Rate 101 H 98 94 Respiratory Rate 16 22 H 14 Blood Pressure 110/65 Pulse Oximetry 97 95 94 Oxygen Delivery Fraction of Inspired Oxygen 12/18/24 03:30 12/18/24 03:31 12/18/24 03:35 Temperature 37.8 C H 37.8 C H Pulse Rate 105 H 101 H Respiratory Rate 16 13 Blood Pressure 95/73 L Pulse Oximetry 94 98 96 Oxygen Delivery Mechanical Ventilation Fraction of Inspired Oxygen 50 12/18/24 03:35 12/18/24 03:45 12/18/24 03:46 Temperature 37.7 C H 37.7 C H Pulse Rate 96 96 Respiratory Rate 0 L 5 L Blood Pressure 103/82 Pulse Oximetry 96 97 Oxygen Delivery Fraction of Inspired Oxygen 50 12/18/24 04:00 12/18/24 04:00 12/18/24 04:00 Temperature 37.6 C H 37.7 C H Pulse Rate 97 97 98 Respiratory Rate 20 13 Blood Pressure 102/78 Pulse Oximetry 98 97 Oxygen Delivery Fraction of Inspired Oxygen 12/18/24 04:00 12/18/24 04:00 12/18/24 04:00 Temperature Pulse Rate 97 97 97 Respiratory Rate 20 20 Blood Pressure 97/62 L Pulse Oximetry Oxygen Delivery Fraction of Inspired Oxygen 12/18/24 04:01 12/18/24 04:15 12/18/24 04:16 Temperature 37.7 C H 37.6 C H 37.6 C H Pulse Rate 97 97 97 Respiratory Rate 20 11 L 20 Blood Pressure 97/62 L 102/78 Pulse Oximetry 98 97 98 Oxygen Delivery Fraction of Inspired Oxygen 12/18/24 04:30 12/18/24 04:31 12/18/24 04:45 Temperature 37.6 C 37.6 C 37.6 C Pulse Rate 96 96 97 Respiratory Rate 13 18 14 Blood Pressure 103/67 Pulse Oximetry 96 98 95 Oxygen Delivery Fraction of Inspired Oxygen 12/18/24 04:46 12/18/24 05:03 12/18/24 06:00 Temperature 37.6 C Pulse Rate 97 96 96 Respiratory Rate 12 20 Blood Pressure 96/73 L Pulse Oximetry 97 97 Oxygen Delivery Mechanical Ventilation Fraction of Inspired Oxygen 50 12/18/24 06:00 12/18/24 06:00 12/18/24 06:00 Temperature Pulse Rate 96 96 96 Respiratory Rate 20 20 Blood Pressure 116/80 107/71 Pulse Oximetry 98 Oxygen Delivery Fraction of Inspired Oxygen 12/18/24 06:00 12/18/24 06:28 12/18/24 08:00 Temperature 37.6 C H Pulse Rate 96 96 Respiratory Rate 16 Blood Pressure 103/74 Pulse Oximetry 97 Oxygen Delivery Fraction of Inspired Oxygen 40 12/18/24 08:00 12/18/24 08:00 12/18/24 08:00 Temperature Pulse Rate 97 96 Respiratory Rate 16 Blood Pressure Pulse Oximetry 97 Oxygen Delivery Mechanical Ventilation Fraction of Inspired Oxygen 40 40 12/18/24 08:45 12/18/24 08:45 12/18/24 08:46 Temperature Pulse Rate 102 H 98 97 Respiratory Rate 13 13 13 Blood Pressure Pulse Oximetry Oxygen Delivery Fraction of Inspired Oxygen 12/18/24 08:46 12/18/24 09:00 12/18/24 09:00 Temperature Pulse Rate 104 H 106 H 106 H Respiratory Rate 13 16 Blood Pressure Pulse Oximetry 95 Oxygen Delivery Mechanical Ventilation Fraction of Inspired Oxygen 40 12/18/24 09:07 12/18/24 10:00 12/18/24 10:00 Temperature Pulse Rate 97 97 96 Respiratory Rate 16 14 Blood Pressure 101/66 Pulse Oximetry 96 Oxygen Delivery Fraction of Inspired Oxygen 12/18/24 11:45 12/18/24 12:00 12/18/24 12:00 Temperature Pulse Rate 97 99 Respiratory Rate Blood Pressure Pulse Oximetry 97 Oxygen Delivery Mechanical Ventilation Fraction of Inspired Oxygen 40 40 12/18/24 12:00 Temperature 37.7 C H Pulse Rate 99 Respiratory Rate 16 Blood Pressure 102/72 Pulse Oximetry 95 Oxygen Delivery Fraction of Inspired Oxygen Intake/Output Intake/Output: Intake & Output 12/15/24 12/16/24 12/17/24 12/18/24 23:59 23:59 23:59 23:59 Intake Total 1420 1520 984.6 1007.6 Output Total 900 1000 1725 1250 Balance 520 520 -740.4 -242.4 Meds/Results Medications: Active Medications Generic Name Dose Route Start Last Admin Trade Name Freq PRN Reason Stop Dose Admin Acetaminophen 650 mg 12/14/24 20:56 12/18/24 00:46 Acetaminophen 325 Mg Tablet PO 650 mg Q4H PRN Administration Mild Pain (1-3) or Fever Albuterol 2.5 mg 12/14/24 21:44 Albuterol Sulfate Neb 2.5 Mg/3 Ml Inh INHALATION Q4HRT PRN Shortness Of Breath Or Wheezing Albuterol/Ipratropium 3 ml 12/15/24 02:00 12/18/24 09:02 Ipratropium 0.5 Mg/Albuterol Sulfate 2.5 Mg Ampul.Neb 3 Ml INHALATION 3 ml Q6HRT REJI Administration Aspirin 81 mg 12/17/24 09:00 12/18/24 08:37 Aspirin 81 Mg Chewable Tablet PO 81 mg DAILY REJI Administration Dextrose 12.5 gm 12/17/24 08:17 Dextrose 50% 25 Gm/50 Ml Syringe IV PUSH PRN PRN Hypoglycemia Protocol Empagliflozin 10 mg 12/15/24 09:00 12/18/24 08:37 Empagliflozin 10 Mg Tablet PO 10 mg DAILY REJI Administration Enoxaparin Sodium 40 mg 12/15/24 09:00 12/18/24 08:36 Enoxaparin 40 Mg/0.4 Ml Syringe SUB-Q 40 mg DAILY REJI Administration Furosemide 40 mg 12/15/24 09:00 12/18/24 08:36 Furosemide Inj 40 Mg/4 Ml Vial IV PUSH 40 mg Q12HR REJI Administration Glucagon 1 mg 12/17/24 08:17 Glucagon For Inj 1 Mg Vial IM PRN PRN Hypoglycemia Protocol Glucose 15 gm 12/17/24 08:17 Glucose Oral Gel 15 Gm Of Glucse In 37.5 Gm Tube PO PRN PRN Hypoglycemia Protocol Azithromycin 500 mg in 250 mls @ 250 mls/hr 12/15/24 22:00 12/17/24 23:48 Zithromax IVPB Infused Q24H REJI Infusion Fentanyl Citrate 2,500 mcg in 250 mls @ 12.5 mls/hr 12/17/24 00:05 12/18/24 08:45 Fentanyl 2,500 Mcg/Ns 250 Ml IV CONT 125 mcg/hr .Q20H REJI 12.5 mls/hr Titration Protocol 125 MCG/HR Midazolam HCl 100 mg in 100 mls @ 7 mls/hr 12/17/24 00:05 12/18/24 08:46 Versed 100 Mg/Ns 100 Ml IV CONT 7 mg/hr .[id number] REJI 7 mls/hr Administration Protocol 7 MG/HR Norepinephrine Bitartrate 8 mg in 250 mls @ 9.375 mls/hr 12/17/24 01:05 12/18/24 06:00 Levophed 8 Mg/D5w 250 Ml IV CONT 5 mcg/min .Q24H REJI 9.38 mls/hr Titration Protocol 5 MCG/MIN Dextrose 1,000 mls @ 100 mls/hr 12/17/24 08:17 Dextrose 5% 1,000 Ml IVPB PRN PRN Hypoglycemia Protocol Piperacillin/Tazobactam/Dextrose 3.375 gm in 50 mls @ 100 mls/hr 12/17/24 09:00 12/18/24 09:07 Zosyn 3.375 Gm/Ns 50 Ml IVPB Infused Q6H [facility] Infusion Vancomycin HCl 1,500 mg in 500 mls @ 250 mls/hr 12/19/24 09:00 Vancomycin 1,500 Mg/Ns 500 Ml IVPB Q24H REJI Insulin Aspart 3 - 6 units 12/17/24 12:00 12/18/24 12:19 Insulin Aspart (*Bkc) 100 Units/Ml SUB-Q Not Given Q6HR [facility] Protocol Multi-Ingred Cream/Lotion/Oil/Oint 1 applic 12/17/24 09:00 12/18/24 08:36 Mineral Oil/White Petrolatum Ointment EACH EYE 1 applic Q12HR REJI Administration Pantoprazole Sodium 40 mg 12/17/24 09:00 12/18/24 08:36 Pantoprazole Sodium Iv 40 Mg Vial IV PUSH 40 mg DAILY REJI Administration Potassium Chloride 40 meq 12/18/24 08:00 12/18/24 08:36 Potassium Chloride 20 Meq Packet (For Liquid) FEED TUBE 12/18/24 14:01 40 meq Q6H REJI Administration Rosuvastatin Calcium 10 mg 12/15/24 09:00 12/18/24 08:37 Rosuvastatin 10 Mg Tablet PO 10 mg QAM REJI Administration Sacubitril/Valsartan 1 tab 12/15/24 09:00 12/16/24 21:45 Sacubitril/Valsartan 24-26 Mg Tablet PO 1 tab Q12HR REJI Administration Sodium Chloride 10 ml 12/17/24 06:00 12/18/24 05:40 Central Line Flush IV PUSH 10 ml Q8HR REJI Administration Sodium Chloride 20 ml 12/17/24 00:03 Central Line Flush IV PUSH PRN PRN after blood draws Sodium Chloride 10 ml 12/17/24 06:00 12/18/24 05:40 Central Line Flush IV PUSH 10 ml Q8HR REJI Administration Sodium Chloride 20 ml 12/17/24 00:05 12/18/24 05:40 Central Line Flush IV PUSH 20 ml PRN PRN Administration after blood draws Radiology Results: ITS Impressions Chest CTA 12/16/24 13:43 IMPRESSION: No pulmonary embolus. No thoracic aortic dissection. Findings suggesting congestive failure, with large bilateral pleural effusions and intra-abdominal ascites. Abdomen X-Ray 12/17/24 07:07 IMPRESSION: Orogastric tube in good position and ready for immediate use. Remainder of examination is unchanged Head CT 12/17/24 07:09 Impression: No acute intracranial hemorrhage or suspicious mass effect. Chest/Abdomen/Pelvis CTA 12/17/24 07:41 IMPRESSION: No pulmonary embolus. No aortic dissection. Increasing bilateral pleural effusions with adjacent compressive atelectasis. Rim-enhancing fluid collection along the anterior abdominal wall measuring denser than simple fluid for which a perioperative seroma versus abscess (less likely) is suspected. Focused ultrasound may be performed for further evaluation. Chest X-Ray 12/18/24 07:17 IMPRESSION: Mild pulmonary vascular congestion with small on the right and moderate on the left, pleural effusions, decreased from previous examination. Supportive lines and tubes in good position. Venous Doppler Study 12/18/24 11:04 IMPRESSION: 1. No deep venous thrombosis. Labs Labs: Laboratory Results - last 24 hr 12/17/24 12/17/24 12/18/24 17:15 23:47 04:56 WBC RBC Hgb Hct MCV MCH MCHC RDW Plt Count MPV Immature Gran % (Auto) Neut % (Auto) Lymph % (Auto) [place] % (Auto) Eos % (Auto) Baso % (Auto) Lymph # (Auto) [place] # (Auto) Eos # (Auto) Baso # (Auto) Abs Immat Gran (auto) Absolute Neuts (auto) Absolute Nucleated RBC Nucleated RBC % PT INR APTT Puncture Site Right radial ABG pH 7.526 H* ABG pCO2 36.8 ABG pO2 111.9 H ABG PO2/FiO2 Ratio 2.24 ABG HCO3 29.8 H ABG O2 Saturation 98.5 ABG O2 Content 17.0 ABG Base Excess 6.8 A-a Gradient 203.2 Oxyhemoglobin 97.2 Carboxyhemoglobin 0.8 Methemoglobin 0.3 Reduced Hemoglobin 1.7 Total Hemoglobin 12.3 O2 Delivery Device Ventilator O2 Liters/Min Not Reportable Minute Volume Not Reportable Vent Rate 20 Vent Mode Cmv FiO2 50 Tidal Volume 420 PEEP 8 Peak Inspir Pressure Not Reportable Pressure Support Not Reportable Sodium Potassium Chloride Carbon Dioxide Anion Gap BUN Creatinine Estim Creat Clear Calc Estimated GFR Glucose POC Capillary Glucose 123 H 132 H Calcium Phosphorus Total Bilirubin AST ALT Alkaline Phosphatase Total Protein Albumin 12/18/24 12/18/24 05:13 12:13 WBC 11.7 H RBC 4.49 L Hgb 11.1 L Hct 36.4 L MCV 81.1 MCH 24.7 L MCHC 30.5 L RDW 18.2 H Plt Count 243 MPV 9.6 Immature Gran % (Auto) 0.3 Neut % (Auto) 61.1 Lymph % (Auto) 24.7 [place] % (Auto) 11.7 H Eos % (Auto) 1.5 Baso % (Auto) 0.7 Lymph # (Auto) 2.88 [place] # (Auto) 1.4 H Eos # (Auto) 0.2 Baso # (Auto) 0.1 Abs Immat Gran (auto) 0.03 Absolute Neuts (auto) 7.2 H Absolute Nucleated RBC 0.000 Nucleated RBC % 0.0 PT 16.6 H INR 1.3 APTT 36.4 Puncture Site ABG pH ABG pCO2 ABG pO2 ABG PO2/FiO2 Ratio ABG HCO3 ABG O2 Saturation ABG O2 Content ABG Base Excess A-a Gradient Oxyhemoglobin Carboxyhemoglobin Methemoglobin Reduced Hemoglobin Total Hemoglobin O2 Delivery Device O2 Liters/Min Minute Volume Vent Rate Vent Mode FiO2 Tidal Volume PEEP Peak Inspir Pressure Pressure Support Sodium 138 Potassium 3.6 Chloride 98 Carbon Dioxide 35 H Anion Gap 5 BUN 32 H Creatinine 1.11 Estim Creat Clear Calc 46 Estimated GFR > 60 Glucose 115 H POC Capillary Glucose 122 H Calcium 8.0 L Phosphorus 3.9 Total Bilirubin 1.1 AST 77 H ALT 59 H Alkaline Phosphatase 61 Total Protein 6.1 L Albumin 3.2 L
[2024-12-18 13:26] LABS: MRSA (PCR) DETECTED (NOT DETECTE)
--- NOTE | 2024-12-18 13:56 | P.PNIM_ITS ---
Progress Note: A&P Assessment and Plan (1) Acute hypoxic respiratory failure: Code(s): J96.01 - Acute respiratory failure with hypoxia Status: Acute Assessment and Plan: Acute Respiratory failure secondary to congestive heart failure leading to pleural effusions and pulmonary edema. Patient also has bilateral atelectasis with questionable pneumonia 12/16 intubated and placed on mechanical ventilation CTA chest 12/17 IMPRESSION: No pulmonary embolus. No aortic dissection. Increasing bilateral pleural effusions with adjacent compressive atelectasis. Rim-enhancing fluid collection along the anterior abdominal wall measuring denser than simple fluid for which a perioperative seroma versus abscess (less likely) is suspected. Focused ultrasound may be performed for further evaluation. Continue full mechanical ventilation support to prevent hypoxemia/hypercarbia and end organ damage. ABG reviewed and continue CMV at tidal volume 420 rate 16 FiO2 40% and peep of 8 Continue Lasix for diuresis Consulted IR for thoracentesis starting with the left side. Plan for 12/18 Bronchodilators procalcitonin level was 0.4. Continue Zosyn azithromycin and add vancomycin due to positive MRSA on nasal screen Blood cultures were done on 12/14 and 12/16 for and have been negative Check sputum culture (2) Shock: Code(s): R57.9 - Shock, unspecified Status: Acute Assessment and Plan: Multifactorial. Likely secondary combination of sedation, questionable sepsis,? Cardiogenic Continue Levophed titration to maintain mean arterial pressure. (3) Acute exacerbation of CHF (congestive heart failure): Qualifiers: Heart failure type: combined systolic and diastolic Qualified Code(s): I50.43 - Acute on chronic combined systolic (congestive) and diastolic (congestive) heart failure Code(s): I50.9 - Heart failure, unspecified Status: Acute Assessment and Plan: Patient was recently diagnosed with congestive heart failure with EF of 40-45% and diastolic dysfunction. He was discharged on multiple medications but unfortunately was not taking any and was taking low-dose Lasix. Now presented with congestive heart failure with lower extremity edema pull effusions which has been gradually getting worse now leading to intubation and mechanical ventilation I will hold Entresto beta-garret due to hypotension Continue Levophed for ionotropic and blood pressure support Continue Lasix for diuresis Echo Summary 1. Left ventricular chamber dimension is moderately enlarged. 2. Left ventricular systolic function is moderately reduced, estimated at 30- 35. 3. There is mildly increased left ventricular wall thickness. 4. The left ventricular diastolic function is abnormal. 5. Right ventricular chamber dimension is mildly enlarged. 6. Right ventricular systolic function is reduced. 7. Left atrial chamber dimension is mildly enlarged. 8. Right atrial chamber dimension is mildly enlarged. 9. There is severe mitral valve regurgitation. 10. There is severe tricuspid valve regurgitation. 11. Moderate pulmonary hypertension, estimated pulmonary arterial systolic pressure is 53 mmHg. (4) Elevated troponin: Code(s): R79.89 - Other specified abnormal findings of blood chemistry Status: Acute Assessment and Plan: Chronically elevated troponin levels. Will discuss with Cardiology regarding workup for ischemic coronary disease Currently on aspirin Patient was not reporting any chest pain during the hospitalization prior to intubation (5) Atrial fibrillation: Qualifiers: Atrial fibrillation type: unspecified Qualified Code(s): I48.91 - Unspecified atrial fibrillation Code(s): I48.91 - Unspecified atrial fibrillation Status: Chronic Assessment and Plan: History of AFib in the chart but none of the past EKGs have shown AFib and also currently in sinus rhythm (6) Hyperlipidemia: Code(s): E78.5 - Hyperlipidemia, unspecified Status: Chronic Assessment and Plan: Continue statin (7) Bilateral pleural effusion: Code(s): J90 - Pleural effusion, not elsewhere classified Status: Acute Assessment and Plan: See above (8) Pneumonia: Qualifiers: Laterality: bilateral Lung location: lower lobe of lung Pneumonia type: due to unspecified organism Qualified Code(s): J18.9 - Pneumonia, unspecified organism Code(s): J18.9 - Pneumonia, unspecified organism Status: Acute Assessment and Plan: See above (9) Substance abuse: Code(s): F19.10 - Other psychoactive substance abuse, uncomplicated Status: Chronic Assessment and Plan: Long History of drug abuse including cocaine could be the etiology of his congestive heart failure. (10) Abdominal fluid collection: Code(s): R18.8 - Other ascites Status: Acute Assessment and Plan: CT scan of the abdomen shows Rim-enhancing fluid collection along the anterior abdominal wall measuring denser than simple fluid for which a perioperative seroma versus abscess (less likely) is suspected. Focused ultrasound may be performed for further evaluation.. Patient had abdominal surgery for umbilical hernia and small-bowel obstruction Patient was evaluated by General surgery and surgeon feels that this is likely a seroma. Ultrasound-guided drainage ordered and plan for tomorrow Continue antibiotics as above (11) Lower extremity edema: Code(s): R60.0 - Localized edema Status: Acute Assessment and Plan: Likely secondary to congestive heart failure. Will obtain venous Dopplers to rule out DVT as edema is asymmetric Plan patient presented with dyspnea was found to have b/l pleural effusion, and patient was diuresed with IV lasix 40MG BID however patient went to respiratory failure and patient was intubated, cardiac echo showed moderately reduced left ventricular systolic dysfunction, seen by the laboratory technical specialist suspect patient has acute on chronic systolic heart failure. recommended to continue to diuresed the patient. patient is scheduled to have thoracentesis tomorrow, patient is seen by the meat hanger. DVT prophylaxis -Lovenox Stress ulcer prophylaxis -PPI Nutrition -continue Tube Feeds Code Status - Full Code Subjective Date/time seen: 12/18/24 13:56 Interval history: 74-year-old male patient with past medical history of HF, EMR documented AFib, substance abuse, HTN, HLP, sleep apnea, vit-D deficiency and alcoholic cirrhosis of liver with complaints of having edema to the bilateral lower extremities and dyspnea on exertion for the past couple of weeks. 12/16/2024 Patient sitting comfortably in bed at time of examination. Rapid response called last night for sudden diaphoresis and dyspnea. D-dimer 3.15, CTA ordered and pending. Lactic acid initially elevated ,4.4, but subsequently decreased to 1.4. Trop (-). Repeat BCs pending. EKG sinus, rbbb (seen previously on 12/14). Pt seen in am, denies any chest pain, SOB, n/v, or abdominal pain. States he just felt very dyspneic and sweaty last night, but feels fine right now. Will continue to monitor CTA/blood work. patient presented with dyspnea was found to have b/l pleural effusion, and patient was diuresed with IV lasix 40MG BID however patient went to respiratory failure and patient was intubated, cardiac echo showed moderately reduced left ventricular systolic dysfunction, seen by the laboratory technical specialist suspect patient has acute on chronic systolic heart failure. recommended to continue to diuresed the patient. patient is scheduled to have thoracentesis tomorrow, patient is seen by the meat hanger. Review of Systems Review of Systems: ROS unobtainable: Yes unobtainable due to endotracheal tube Exam Narrative: Patient is comfortable, NAD HEENT: ET tube in place LUNGS:CTA HEART: RR S1S2 ABD: BS+, Soft and nontender Lower extremities: no edema SKIN: nonjaundiced Neuro: Intubated and sedated Objective Data Vital Signs Vital Signs: Vital Signs - 24 hr 12/17/24 14:00 12/17/24 14:00 12/17/24 14:00 Temperature 37.6 C H Pulse Rate 96 96 96 Respiratory Rate 20 20 Blood Pressure 104/75 Pulse Oximetry 95 Oxygen Delivery Fraction of Inspired Oxygen 12/17/24 14:00 12/17/24 14:00 12/17/24 14:30 Temperature Pulse Rate 96 96 96 Respiratory Rate 20 20 Blood Pressure 104/75 Pulse Oximetry Oxygen Delivery Fraction of Inspired Oxygen 12/17/24 14:35 12/17/24 14:39 12/17/24 16:00 Temperature Pulse Rate 95 96 Respiratory Rate 96 H Blood Pressure Pulse Oximetry 96 93 Oxygen Delivery Mechanical Ventilation Mechanical Ventilation Fraction of Inspired Oxygen 60 60 12/17/24 16:00 12/17/24 16:00 12/17/24 16:00 Temperature 37.9 C H Pulse Rate 96 96 Respiratory Rate 16 Blood Pressure 100/68 Pulse Oximetry 93 Oxygen Delivery Fraction of Inspired Oxygen 60 12/17/24 16:00 12/17/24 16:00 12/17/24 16:00 Temperature Pulse Rate 96 96 96 Respiratory Rate 16 16 Blood Pressure 100/68 Pulse Oximetry Oxygen Delivery Fraction of Inspired Oxygen 12/17/24 17:00 12/17/24 17:42 12/17/24 18:00 Temperature 37.9 C H Pulse Rate 97 97 Respiratory Rate 20 Blood Pressure 103/73 Pulse Oximetry 96 96 Oxygen Delivery Mechanical Ventilation Fraction of Inspired Oxygen 50 50 12/17/24 18:00 12/17/24 18:00 12/17/24 18:00 Temperature Pulse Rate 96 96 96 Respiratory Rate 20 Blood Pressure 108/72 Pulse Oximetry Oxygen Delivery Fraction of Inspired Oxygen 12/17/24 18:00 12/17/24 19:54 12/17/24 19:55 Temperature Pulse Rate 96 97 94 Respiratory Rate 20 20 Blood Pressure Pulse Oximetry 95 Oxygen Delivery Mechanical Ventilation Fraction of Inspired Oxygen 50 12/17/24 20:00 12/17/24 20:00 12/17/24 20:00 Temperature 37.9 C H Pulse Rate 97 97 97 Respiratory Rate 20 20 Blood Pressure 96/69 L 96/69 L Pulse Oximetry 95 Oxygen Delivery Fraction of Inspired Oxygen 12/17/24 20:00 12/17/24 20:00 12/17/24 20:00 Temperature Pulse Rate 97 97 Respiratory Rate 20 Blood Pressure Pulse Oximetry Oxygen Delivery Fraction of Inspired Oxygen 50 12/17/24 20:00 12/17/24 21:00 12/17/24 21:30 Temperature 37.9 C H Pulse Rate 97 96 Respiratory Rate 20 Blood Pressure 96/69 L 110/93 H Pulse Oximetry 94 99 Oxygen Delivery Mechanical Ventilation Fraction of Inspired Oxygen 50 12/17/24 21:37 12/17/24 21:37 12/17/24 21:50 Temperature 38.1 C H Pulse Rate 96 96 96 Respiratory Rate 20 20 20 Blood Pressure Pulse Oximetry 95 Oxygen Delivery Fraction of Inspired Oxygen 12/17/24 22:00 12/17/24 22:00 12/17/24 22:00 Temperature Pulse Rate 96 96 96 Respiratory Rate 20 20 Blood Pressure 79/61 L Pulse Oximetry Oxygen Delivery Fraction of Inspired Oxygen 12/17/24 22:00 12/17/24 22:00 12/17/24 22:00 Temperature 38.1 C H Pulse Rate 96 96 96 Respiratory Rate 20 20 Blood Pressure 79/61 L 79/61 L Pulse Oximetry 96 96 Oxygen Delivery Fraction of Inspired Oxygen 12/17/24 22:01 12/17/24 22:15 12/17/24 22:16 Temperature 38.1 C H 38.1 C H 38.1 C H Pulse Rate 96 96 96 Respiratory Rate 21 H 20 20 Blood Pressure 77/61 L Pulse Oximetry 95 98 98 Oxygen Delivery Fraction of Inspired Oxygen 12/17/24 22:17 12/17/24 22:26 12/17/24 22:30 Temperature 38.1 C H 38.2 C H Pulse Rate 96 96 95 Respiratory Rate 16 20 Blood Pressure 77/61 L 117/81 Pulse Oximetry 99 97 Oxygen Delivery Fraction of Inspired Oxygen 12/17/24 22:37 12/17/24 22:45 12/17/24 22:46 Temperature 38.2 C H 38.2 C H 38.2 C H Pulse Rate 94 96 96 Respiratory Rate 20 20 20 Blood Pressure 88/67 L 118/85 Pulse Oximetry 96 95 96 Oxygen Delivery Fraction of Inspired Oxygen 12/17/24 23:00 12/17/24 23:01 12/17/24 23:13 Temperature 38.2 C H 38.2 C H Pulse Rate 97 96 99 Respiratory Rate 20 20 Blood Pressure 125/77 125/77 Pulse Oximetry 97 97 Oxygen Delivery Fraction of Inspired Oxygen 12/17/24 23:14 12/17/24 23:15 12/17/24 23:16 Temperature 38.2 C H 38.2 C H Pulse Rate 97 97 97 Respiratory Rate 20 20 Blood Pressure 119/84 Pulse Oximetry 95 95 Oxygen Delivery Mechanical Ventilation Fraction of Inspired Oxygen 50 12/17/24 23:30 12/17/24 23:31 12/17/24 23:40 Temperature 38.3 C H 38.3 C H Pulse Rate 98 97 98 Respiratory Rate 20 20 Blood Pressure 122/86 122/86 Pulse Oximetry 96 96 Oxygen Delivery Fraction of Inspired Oxygen 12/17/24 23:45 12/17/24 23:46 12/18/24 00:00 Temperature 38.3 C H 38.3 C H Pulse Rate 101 H 99 98 Respiratory Rate 18 20 20 Blood Pressure 101/72 Pulse Oximetry 96 97 Oxygen Delivery Fraction of Inspired Oxygen 12/18/24 00:00 12/18/24 00:00 12/18/24 00:00 Temperature 38.4 C H Pulse Rate 98 100 Respiratory Rate 20 20 Blood Pressure 120/85 Pulse Oximetry 94 95 Oxygen Delivery Mechanical Ventilation Fraction of Inspired Oxygen 50 12/18/24 00:00 12/18/24 00:00 12/18/24 00:00 Temperature 38.4 C H Pulse Rate 97 97 Respiratory Rate 20 Blood Pressure Pulse Oximetry 94 Oxygen Delivery Fraction of Inspired Oxygen 50 12/18/24 00:01 12/18/24 00:15 12/18/24 00:16 Temperature 38.4 C H 38.4 C H 38.4 C H Pulse Rate 97 97 97 Respiratory Rate 16 13 20 Blood Pressure 120/85 105/80 Pulse Oximetry 95 91 94 Oxygen Delivery Fraction of Inspired Oxygen 12/18/24 00:30 12/18/24 00:31 12/18/24 00:45 Temperature 38.4 C H 38.4 C H 38.4 C H Pulse Rate 98 97 97 Respiratory Rate 20 20 20 Blood Pressure 115/82 Pulse Oximetry 94 95 90 Oxygen Delivery Fraction of Inspired Oxygen 07/06/25 00:46 12/18/24 00:46 12/18/24 00:47 Temperature 38.4 C H 38.4 C H Pulse Rate 97 97 Respiratory Rate 20 Blood Pressure 118/82 118/82 Pulse Oximetry 94 Oxygen Delivery Fraction of Inspired Oxygen 12/18/24 01:00 12/18/24 01:01 12/18/24 01:15 Temperature 38.4 C H 38.4 C H 38.4 C H Pulse Rate 97 97 100 Respiratory Rate 20 20 20 Blood Pressure 124/88 Pulse Oximetry 95 95 95 Oxygen Delivery Fraction of Inspired Oxygen 12/18/24 01:16 12/18/24 01:30 12/18/24 01:31 Temperature 38.4 C H 38.4 C H 38.4 C H Pulse Rate 106 H 97 100 Respiratory Rate 20 20 21 H Blood Pressure 130/90 122/80 Pulse Oximetry 95 94 94 Oxygen Delivery Fraction of Inspired Oxygen 12/18/24 01:36 12/18/24 01:38 12/18/24 01:43 Temperature Pulse Rate 97 99 99 Respiratory Rate 20 Blood Pressure 122/80 Pulse Oximetry 94 Oxygen Delivery Mechanical Ventilation Fraction of Inspired Oxygen 50 12/18/24 01:43 12/18/24 01:45 12/18/24 01:46 Temperature 38.4 C H 38.4 C H Pulse Rate 99 99 Respiratory Rate 18 Blood Pressure 122/80 Pulse Oximetry 96 Oxygen Delivery Fraction of Inspired Oxygen 12/18/24 01:46 12/18/24 01:51 12/18/24 02:00 Temperature 38.4 C H Pulse Rate 101 H 93 97 Respiratory Rate 20 20 20 Blood Pressure 84/67 L 96/66 L Pulse Oximetry 93 94 Oxygen Delivery Fraction of Inspired Oxygen 12/18/24 02:00 12/18/24 02:00 12/18/24 02:00 Temperature 38.4 C H Pulse Rate 97 97 97 Respiratory Rate 23 H 20 Blood Pressure 96/66 L Pulse Oximetry 95 Oxygen Delivery Fraction of Inspired Oxygen 12/18/24 02:00 12/18/24 02:01 12/18/24 02:16 Temperature 38.4 C H 38.3 C H Pulse Rate 97 102 H 99 Respiratory Rate 20 20 20 Blood Pressure 98/72 L Pulse Oximetry 94 95 Oxygen Delivery Fraction of Inspired Oxygen 12/18/24 02:17 12/18/24 02:30 12/18/24 02:31 Temperature 38.3 C H 38.3 C H 38.3 C H Pulse Rate 98 96 99 Respiratory Rate 18 20 20 Blood Pressure 84/64 L Pulse Oximetry 95 97 97 Oxygen Delivery Fraction of Inspired Oxygen 12/18/24 02:45 12/18/24 02:46 12/18/24 02:55 Temperature 38.2 C H 38.2 C H Pulse Rate 99 96 102 H Respiratory Rate 20 16 Blood Pressure 90/64 L 90/64 L Pulse Oximetry 96 96 Oxygen Delivery Fraction of Inspired Oxygen 12/18/24 03:00 12/18/24 03:01 12/18/24 03:15 Temperature 38.1 C H 38.1 C H 37.9 C H Pulse Rate 95 101 H 98 Respiratory Rate 18 16 22 H Blood Pressure 99/83 L Pulse Oximetry 97 97 95 Oxygen Delivery Fraction of Inspired Oxygen 12/18/24 03:16 12/18/24 03:30 12/18/24 03:31 Temperature 37.9 C H 37.8 C H 37.8 C H Pulse Rate 94 105 H 101 H Respiratory Rate 14 16 13 Blood Pressure 110/65 95/73 L Pulse Oximetry 94 94 98 Oxygen Delivery Fraction of Inspired Oxygen 12/18/24 03:35 12/18/24 03:35 12/18/24 03:45 Temperature 37.7 C H Pulse Rate 96 Respiratory Rate 0 L Blood Pressure Pulse Oximetry 96 96 Oxygen Delivery Mechanical Ventilation Fraction of Inspired Oxygen 50 50 12/18/24 03:46 12/18/24 04:00 12/18/24 04:00 Temperature 37.7 C H 37.6 C H Pulse Rate 96 97 97 Respiratory Rate 5 L 20 Blood Pressure 103/82 102/78 Pulse Oximetry 97 98 Oxygen Delivery Fraction of Inspired Oxygen 12/18/24 04:00 12/18/24 04:00 12/18/24 04:00 Temperature 37.7 C H Pulse Rate 98 97 97 Respiratory Rate 13 20 Blood Pressure 97/62 L Pulse Oximetry 97 Oxygen Delivery Fraction of Inspired Oxygen 12/18/24 04:00 12/18/24 04:01 12/18/24 04:15 Temperature 37.7 C H 37.6 C H Pulse Rate 97 97 97 Respiratory Rate 20 20 11 L Blood Pressure 97/62 L 102/78 Pulse Oximetry 98 97 Oxygen Delivery Fraction of Inspired Oxygen 12/18/24 04:16 12/18/24 04:30 12/18/24 04:31 Temperature 37.6 C H 37.6 C 37.6 C Pulse Rate 97 96 96 Respiratory Rate 20 13 18 Blood Pressure 103/67 Pulse Oximetry 98 96 98 Oxygen Delivery Fraction of Inspired Oxygen 12/18/24 04:45 12/18/24 04:46 12/18/24 05:03 Temperature 37.6 C 37.6 C Pulse Rate 97 97 96 Respiratory Rate 14 12 Blood Pressure 96/73 L Pulse Oximetry 95 97 97 Oxygen Delivery Mechanical Ventilation Fraction of Inspired Oxygen 50 12/18/24 06:00 12/18/24 06:00 12/18/24 06:00 Temperature Pulse Rate 96 96 96 Respiratory Rate 20 20 Blood Pressure 116/80 Pulse Oximetry Oxygen Delivery Fraction of Inspired Oxygen 12/18/24 06:00 12/18/24 06:00 12/18/24 06:28 Temperature Pulse Rate 96 96 Respiratory Rate 20 Blood Pressure 107/71 Pulse Oximetry 98 Oxygen Delivery Fraction of Inspired Oxygen 40 12/18/24 08:00 12/18/24 08:00 12/18/24 08:00 Temperature 37.6 C H Pulse Rate 96 97 96 Respiratory Rate 16 16 Blood Pressure 103/74 Pulse Oximetry 97 97 Oxygen Delivery Mechanical Ventilation Fraction of Inspired Oxygen 40 12/18/24 08:00 12/18/24 08:00 12/18/24 08:45 Temperature Pulse Rate 92 102 H Respiratory Rate 13 Blood Pressure 103/74 Pulse Oximetry Oxygen Delivery Fraction of Inspired Oxygen 40 12/18/24 08:45 12/18/24 08:46 12/18/24 08:46 Temperature Pulse Rate 98 97 104 H Respiratory Rate 13 13 13 Blood Pressure Pulse Oximetry Oxygen Delivery Fraction of Inspired Oxygen 12/18/24 09:00 12/18/24 09:00 12/18/24 09:07 Temperature Pulse Rate 106 H 106 H 97 Respiratory Rate 16 16 Blood Pressure Pulse Oximetry 95 Oxygen Delivery Mechanical Ventilation Fraction of Inspired Oxygen 40 12/18/24 10:00 12/18/24 10:00 12/18/24 10:00 Temperature Pulse Rate 97 96 96 Respiratory Rate 14 Blood Pressure 101/66 102/74 Pulse Oximetry 96 Oxygen Delivery Fraction of Inspired Oxygen 12/18/24 11:45 12/18/24 12:00 12/18/24 12:00 Temperature Pulse Rate 97 99 Respiratory Rate Blood Pressure Pulse Oximetry 97 Oxygen Delivery Mechanical Ventilation Fraction of Inspired Oxygen 40 40 12/18/24 12:00 12/18/24 12:00 12/18/24 12:00 Temperature 37.7 C H Pulse Rate 99 99 97 Respiratory Rate 16 16 Blood Pressure 102/72 102/72 Pulse Oximetry 95 96 Oxygen Delivery Mechanical Ventilation Fraction of Inspired Oxygen 40 12/18/24 13:00 12/18/24 13:05 12/18/24 13:40 Temperature Pulse Rate 96 96 96 Respiratory Rate 16 Blood Pressure 79/65 L 86/52 L Pulse Oximetry Oxygen Delivery Fraction of Inspired Oxygen Intake/Output Intake/Output: Intake & Output 12/15/24 12/16/24 12/17/24 12/18/24 23:59 23:59 23:59 23:59 Intake Total 1420 1520 984.6 1074.5 Output Total 900 1000 1725 2750 Balance 520 520 -740.4 -1675.5 Meds/Results Medications: Active Medications Generic Name Dose Route Start Last Admin Trade Name Freq PRN Reason Stop Dose Admin Acetaminophen 650 mg 12/14/24 20:56 12/18/24 00:46 Acetaminophen 325 Mg Tablet PO 650 mg Q4H PRN Administration Mild Pain (1-3) or Fever Albuterol 2.5 mg 12/14/24 21:44 Albuterol Sulfate Neb 2.5 Mg/3 Ml Inh INHALATION Q4HRT PRN Shortness Of Breath Or Wheezing Albuterol/Ipratropium 3 ml 12/15/24 02:00 12/18/24 13:39 Ipratropium 0.5 Mg/Albuterol Sulfate 2.5 Mg Ampul.Neb 3 Ml INHALATION 3 ml Q6HRT REJI Administration Aspirin 81 mg 12/17/24 09:00 12/18/24 08:37 Aspirin 81 Mg Chewable Tablet PO 81 mg DAILY REJI Administration Dextrose 12.5 gm 12/17/24 08:17 Dextrose 50% 25 Gm/50 Ml Syringe IV PUSH PRN PRN Hypoglycemia Protocol Empagliflozin 10 mg 12/15/24 09:00 12/18/24 08:37 Empagliflozin 10 Mg Tablet PO 10 mg DAILY REJI Administration Enoxaparin Sodium 40 mg 12/15/24 09:00 12/18/24 08:36 Enoxaparin 40 Mg/0.4 Ml Syringe SUB-Q 40 mg DAILY REJI Administration Furosemide 40 mg 12/15/24 09:00 12/18/24 08:36 Furosemide Inj 40 Mg/4 Ml Vial IV PUSH 40 mg Q12HR REJI Administration Glucagon 1 mg 12/17/24 08:17 Glucagon For Inj 1 Mg Vial IM PRN PRN Hypoglycemia Protocol Glucose 15 gm 12/17/24 08:17 Glucose Oral Gel 15 Gm Of Glucse In 37.5 Gm Tube PO PRN PRN Hypoglycemia Protocol Azithromycin 500 mg in 250 mls @ 250 mls/hr 12/15/24 22:00 12/17/24 23:48 Zithromax IVPB Infused Q24H REJI Infusion Fentanyl Citrate 2,500 mcg in 250 mls @ 12.5 mls/hr 12/17/24 00:05 12/18/24 08:45 Fentanyl 2,500 Mcg/Ns 250 Ml IV CONT 125 mcg/hr .Q20H REJI 12.5 mls/hr Titration Protocol 125 MCG/HR Midazolam HCl 100 mg in 100 mls @ 7 mls/hr 12/17/24 00:05 12/18/24 08:46 Versed 100 Mg/Ns 100 Ml IV CONT 7 mg/hr .[id number] REJI 7 mls/hr Administration Protocol 7 MG/HR Norepinephrine Bitartrate 8 mg in 250 mls @ 16.875 mls/hr 12/17/24 01:05 12/18/24 13:05 Levophed 8 Mg/D5w 250 Ml IV CONT 9 mcg/min .[id number] REJI 16.88 mls/hr Titration Protocol 9 MCG/MIN Dextrose 1,000 mls @ 100 mls/hr 12/17/24 08:17 Dextrose 5% 1,000 Ml IVPB PRN PRN Hypoglycemia Protocol Piperacillin/Tazobactam/Dextrose 3.375 gm in 50 mls @ 100 mls/hr 12/17/24 09:00 12/18/24 09:07 Zosyn 3.375 Gm/Ns 50 Ml IVPB Infused Q6H REJI Infusion Vancomycin HCl 1,500 mg in 500 mls @ 250 mls/hr 12/19/24 09:00 Vancomycin 1,500 Mg/Ns 500 Ml IVPB Q24H REJI Insulin Aspart 3 - 6 units 12/17/24 12:00 07/06/25 12:19 Insulin Aspart (*Bkc) 100 Units/Ml SUB-Q Not Given Q6HR [facility] Protocol Multi-Ingred Cream/Lotion/Oil/Oint 1 applic 12/17/24 09:00 12/18/24 08:36 Mineral Oil/White Petrolatum Ointment EACH EYE 1 applic Q12HR REJI Administration Pantoprazole Sodium 40 mg 12/17/24 09:00 12/18/24 08:36 Pantoprazole Sodium Iv 40 Mg Vial IV PUSH 40 mg DAILY REJI Administration Potassium Chloride 40 meq 12/18/24 08:00 12/18/24 13:31 Potassium Chloride 20 Meq Packet (For Liquid) FEED TUBE 12/18/24 14:01 40 meq Q6H REJI Administration Rosuvastatin Calcium 10 mg 12/15/24 09:00 12/18/24 08:37 Rosuvastatin 10 Mg Tablet PO 10 mg QAM REJI Administration Sacubitril/Valsartan 1 tab 12/15/24 09:00 12/16/24 21:45 Sacubitril/Valsartan 24-26 Mg Tablet PO 1 tab Q12HR REJI Administration Sodium Chloride 10 ml 12/17/24 06:00 12/18/24 13:31 Central Line Flush IV PUSH 10 ml Q8HR REJI Administration Sodium Chloride 20 ml 12/17/24 00:03 Central Line Flush IV PUSH PRN PRN after blood draws Sodium Chloride 10 ml 12/17/24 06:00 12/18/24 13:31 Central Line Flush IV PUSH 10 ml Q8HR REJI Administration Sodium Chloride 20 ml 12/17/24 00:05 12/18/24 05:40 Central Line Flush IV PUSH 20 ml PRN PRN Administration after blood draws Radiology Results: ITS Impressions Chest CTA 12/16/24 13:43 IMPRESSION: No pulmonary embolus. No thoracic aortic dissection. Findings suggesting congestive failure, with large bilateral pleural effusions and intra-abdominal ascites. Abdomen X-Ray 12/17/24 07:07 IMPRESSION: Orogastric tube in good position and ready for immediate use. Remainder of examination is unchanged Head CT 12/17/24 07:09 Impression: No acute intracranial hemorrhage or suspicious mass effect. Chest/Abdomen/Pelvis CTA 12/17/24 07:41 IMPRESSION: No pulmonary embolus. No aortic dissection. Increasing bilateral pleural effusions with adjacent compressive atelectasis. Rim-enhancing fluid collection along the anterior abdominal wall measuring denser than simple fluid for which a perioperative seroma versus abscess (less likely) is suspected. Focused ultrasound may be performed for further evaluation. Chest X-Ray 12/18/24 07:17 IMPRESSION: Mild pulmonary vascular congestion with small on the right and moderate on the left, pleural effusions, decreased from previous examination. Supportive lines and tubes in good position. Venous Doppler Study 12/18/24 11:04 IMPRESSION: 1. No deep venous thrombosis. Labs Labs: Laboratory Results - last 24 hr 12/17/24 12/17/24 12/18/24 17:15 23:47 04:56 WBC RBC Hgb Hct MCV MCH MCHC RDW Plt Count MPV Immature Gran % (Auto) Neut % (Auto) Lymph % (Auto) [place] % (Auto) Eos % (Auto) Baso % (Auto) Lymph # (Auto) [place] # (Auto) Eos # (Auto) Baso # (Auto) Abs Immat Gran (auto) Absolute Neuts (auto) Absolute Nucleated RBC Nucleated RBC % PT INR APTT Puncture Site Right radial ABG pH 7.526 H* ABG pCO2 36.8 ABG pO2 111.9 H ABG PO2/FiO2 Ratio 2.24 ABG HCO3 29.8 H ABG O2 Saturation 98.5 ABG O2 Content 17.0 ABG Base Excess 6.8 A-a Gradient 203.2 Oxyhemoglobin 97.2 Carboxyhemoglobin 0.8 Methemoglobin 0.3 Reduced Hemoglobin 1.7 Total Hemoglobin 12.3 O2 Delivery Device Ventilator O2 Liters/Min Not Reportable Minute Volume Not Reportable Vent Rate 20 Vent Mode Cmv FiO2 50 Tidal Volume 420 PEEP 8 Peak Inspir Pressure Not Reportable Pressure Support Not Reportable Sodium Potassium Chloride Carbon Dioxide Anion Gap BUN Creatinine Estim Creat Clear Calc Estimated GFR Glucose POC Capillary Glucose 123 H 132 H Calcium Phosphorus Total Bilirubin AST ALT Alkaline Phosphatase Total Protein Albumin Nasal MRSA (PCR) 12/18/24 12/18/24 12/18/24 05:13 12:10 12:13 WBC 11.7 H RBC 4.49 L Hgb 11.1 L Hct 36.4 L MCV 81.1 MCH 24.7 L MCHC 30.5 L RDW 18.2 H Plt Count 243 MPV 9.6 Immature Gran % (Auto) 0.3 Neut % (Auto) 61.1 Lymph % (Auto) 24.7 [place] % (Auto) 11.7 H Eos % (Auto) 1.5 Baso % (Auto) 0.7 Lymph # (Auto) 2.88 [place] # (Auto) 1.4 H Eos # (Auto) 0.2 Baso # (Auto) 0.1 Abs Immat Gran (auto) 0.03 Absolute Neuts (auto) 7.2 H Absolute Nucleated RBC 0.000 Nucleated RBC % 0.0 PT 16.6 H INR 1.3 APTT 36.4 Puncture Site ABG pH ABG pCO2 ABG pO2 ABG PO2/FiO2 Ratio ABG HCO3 ABG O2 Saturation ABG O2 Content ABG Base Excess A-a Gradient Oxyhemoglobin Carboxyhemoglobin Methemoglobin Reduced Hemoglobin Total Hemoglobin O2 Delivery Device O2 Liters/Min Minute Volume Vent Rate Vent Mode FiO2 Tidal Volume PEEP Peak Inspir Pressure Pressure Support Sodium 138 Potassium 3.6 Chloride 98 Carbon Dioxide 35 H Anion Gap 5 BUN 32 H Creatinine 1.11 Estim Creat Clear Calc 46 Estimated GFR > 60 Glucose 115 H POC Capillary Glucose 122 H Calcium 8.0 L Phosphorus 3.9 Total Bilirubin 1.1 AST 77 H ALT 59 H Alkaline Phosphatase 61 Total Protein 6.1 L Albumin 3.2 L Nasal MRSA (PCR) Detected A* Quality VTE Prophylaxis VTE prophylaxis: pharmacologic ordered
--- NOTE | 2024-12-18 14:01 | WPDPN ---
Progress Note: A&P Assessment and Plan (1) Seroma after procedure: Status: Acute Assessment and Plan: Ultrasound-guided aspiration the abdominal wall seroma fluid is ordered. Hopefully can be done tomorrow. Fluid should be sent to microbiology for Gram stain and cultures. If it is a sterile fluid collection then aspiration will only be needed for now. Subjective Date/time seen: 12/18/24 14:01 Interval history: No acute changes. Still on vent. Set to get a image guided thoracentesis tomorrow. I have also ordered a image guided aspiration of the abdominal wall fluid collection which is most likely a seroma. Fluid is been ordered to be sent to microbiology for Gram stain and anaerobic and aerobic cultures. Exam Const: Other: Patient intubated sedated. GI: Other: Soft and nondistended. No redness the skin over the area the hernia repair and seroma in the mid abdominal wall. No recurrent hernia. Objective Data Vital Signs Vital Signs: Vital Signs - 24 hr 12/17/24 14:30 12/17/24 14:35 12/17/24 14:39 Temperature Pulse Rate 96 95 96 Respiratory Rate 20 96 H Blood Pressure Pulse Oximetry 96 Oxygen Delivery Mechanical Ventilation Fraction of Inspired Oxygen 60 12/17/24 16:00 12/17/24 16:00 12/17/24 16:00 Temperature 37.9 C H Pulse Rate 96 Respiratory Rate 16 Blood Pressure 100/68 Pulse Oximetry 93 93 Oxygen Delivery Mechanical Ventilation Fraction of Inspired Oxygen 60 60 12/17/24 16:00 12/17/24 16:00 12/17/24 16:00 Temperature Pulse Rate 96 96 96 Respiratory Rate 16 Blood Pressure 100/68 Pulse Oximetry Oxygen Delivery Fraction of Inspired Oxygen 12/17/24 16:00 12/17/24 17:00 12/17/24 17:42 Temperature Pulse Rate 96 97 Respiratory Rate 16 Blood Pressure Pulse Oximetry 96 Oxygen Delivery Mechanical Ventilation Fraction of Inspired Oxygen 50 50 12/17/24 18:00 12/17/24 18:00 12/17/24 18:00 Temperature 37.9 C H Pulse Rate 97 96 96 Respiratory Rate 20 20 Blood Pressure 103/73 Pulse Oximetry 96 Oxygen Delivery Fraction of Inspired Oxygen 12/17/24 18:00 12/17/24 18:00 12/17/24 19:54 Temperature Pulse Rate 96 96 97 Respiratory Rate 20 20 Blood Pressure 108/72 Pulse Oximetry Oxygen Delivery Fraction of Inspired Oxygen 12/17/24 19:55 12/17/24 20:00 12/17/24 20:00 Temperature 37.9 C H Pulse Rate 94 97 97 Respiratory Rate 20 20 Blood Pressure 96/69 L Pulse Oximetry 95 95 Oxygen Delivery Mechanical Ventilation Fraction of Inspired Oxygen 50 12/17/24 20:00 12/17/24 20:00 12/17/24 20:00 Temperature Pulse Rate 97 97 97 Respiratory Rate 20 Blood Pressure 96/69 L Pulse Oximetry Oxygen Delivery Fraction of Inspired Oxygen 12/17/24 20:00 12/17/24 20:00 12/17/24 21:00 Temperature 37.9 C H Pulse Rate 97 Respiratory Rate 20 Blood Pressure 96/69 L Pulse Oximetry 94 99 Oxygen Delivery Mechanical Ventilation Fraction of Inspired Oxygen 50 50 12/17/24 21:30 12/17/24 21:37 12/17/24 21:37 Temperature Pulse Rate 96 96 96 Respiratory Rate 20 20 Blood Pressure 110/93 H Pulse Oximetry Oxygen Delivery Fraction of Inspired Oxygen 12/17/24 21:50 12/17/24 22:00 12/17/24 22:00 Temperature 38.1 C H Pulse Rate 96 96 96 Respiratory Rate 20 20 Blood Pressure 79/61 L Pulse Oximetry 95 Oxygen Delivery Fraction of Inspired Oxygen 12/17/24 22:00 12/17/24 22:00 12/17/24 22:00 Temperature Pulse Rate 96 96 96 Respiratory Rate 20 20 Blood Pressure 79/61 L Pulse Oximetry 96 Oxygen Delivery Fraction of Inspired Oxygen 12/17/24 22:00 12/17/24 22:01 12/17/24 22:15 Temperature 38.1 C H 38.1 C H 38.1 C H Pulse Rate 96 96 96 Respiratory Rate 20 21 H 20 Blood Pressure 79/61 L 77/61 L Pulse Oximetry 96 95 98 Oxygen Delivery Fraction of Inspired Oxygen 12/17/24 22:16 12/17/24 22:17 12/17/24 22:26 Temperature 38.1 C H 38.1 C H Pulse Rate 96 96 96 Respiratory Rate 20 16 Blood Pressure 77/61 L 117/81 Pulse Oximetry 98 99 Oxygen Delivery Fraction of Inspired Oxygen 12/17/24 22:30 12/17/24 22:37 12/17/24 22:45 Temperature 38.2 C H 38.2 C H 38.2 C H Pulse Rate 95 94 96 Respiratory Rate 20 20 20 Blood Pressure 88/67 L Pulse Oximetry 97 96 95 Oxygen Delivery Fraction of Inspired Oxygen 12/17/24 22:46 12/17/24 23:00 12/17/24 23:01 Temperature 38.2 C H 38.2 C H 38.2 C H Pulse Rate 96 97 96 Respiratory Rate 20 20 20 Blood Pressure 118/85 125/77 Pulse Oximetry 96 97 97 Oxygen Delivery Fraction of Inspired Oxygen 12/17/24 23:13 12/17/24 23:14 12/17/24 23:15 Temperature 38.2 C H Pulse Rate 99 97 97 Respiratory Rate 20 Blood Pressure 125/77 119/84 Pulse Oximetry 95 Oxygen Delivery Mechanical Ventilation Fraction of Inspired Oxygen 50 12/17/24 23:16 12/17/24 23:30 12/17/24 23:31 Temperature 38.2 C H 38.3 C H 38.3 C H Pulse Rate 97 98 97 Respiratory Rate 20 20 20 Blood Pressure 122/86 Pulse Oximetry 95 96 96 Oxygen Delivery Fraction of Inspired Oxygen 12/17/24 23:40 12/17/24 23:45 12/17/24 23:46 Temperature 38.3 C H 38.3 C H Pulse Rate 98 101 H 99 Respiratory Rate 18 20 Blood Pressure 122/86 101/72 Pulse Oximetry 96 97 Oxygen Delivery Fraction of Inspired Oxygen 12/18/24 00:00 12/18/24 00:00 12/18/24 00:00 Temperature 38.4 C H Pulse Rate 98 98 100 Respiratory Rate 20 20 20 Blood Pressure 120/85 Pulse Oximetry 94 Oxygen Delivery Fraction of Inspired Oxygen 12/18/24 00:00 12/18/24 00:00 12/18/24 00:00 Temperature Pulse Rate 97 Respiratory Rate Blood Pressure Pulse Oximetry 95 Oxygen Delivery Mechanical Ventilation Fraction of Inspired Oxygen 50 50 12/18/24 00:00 12/18/24 00:01 12/18/24 00:15 Temperature 38.4 C H 38.4 C H 38.4 C H Pulse Rate 97 97 97 Respiratory Rate 20 16 13 Blood Pressure 120/85 Pulse Oximetry 94 95 91 Oxygen Delivery Fraction of Inspired Oxygen 12/18/24 00:16 12/18/24 00:30 12/18/24 00:31 Temperature 38.4 C H 38.4 C H 38.4 C H Pulse Rate 97 98 97 Respiratory Rate 20 20 20 Blood Pressure 105/80 115/82 Pulse Oximetry 94 94 95 Oxygen Delivery Fraction of Inspired Oxygen 12/18/24 00:45 12/18/24 00:46 12/18/24 00:46 Temperature 38.4 C H 38.4 C H 38.4 C H Pulse Rate 97 97 Respiratory Rate 20 20 Blood Pressure 118/82 Pulse Oximetry 90 94 Oxygen Delivery Fraction of Inspired Oxygen 12/18/24 00:47 12/18/24 01:00 12/18/24 01:01 Temperature 38.4 C H 38.4 C H Pulse Rate 97 97 97 Respiratory Rate 20 20 Blood Pressure 118/82 124/88 Pulse Oximetry 95 95 Oxygen Delivery Fraction of Inspired Oxygen 12/18/24 01:15 12/18/24 01:16 12/18/24 01:30 Temperature 38.4 C H 38.4 C H 38.4 C H Pulse Rate 100 106 H 97 Respiratory Rate 20 20 20 Blood Pressure 130/90 Pulse Oximetry 95 95 94 Oxygen Delivery Fraction of Inspired Oxygen 12/18/24 01:31 12/18/24 01:36 12/18/24 01:38 Temperature 38.4 C H Pulse Rate 100 97 99 Respiratory Rate 21 H 20 Blood Pressure 122/80 Pulse Oximetry 94 94 Oxygen Delivery Mechanical Ventilation Fraction of Inspired Oxygen 50 12/18/24 01:43 12/18/24 01:43 12/18/24 01:45 Temperature 38.4 C H Pulse Rate 99 99 99 Respiratory Rate 18 Blood Pressure 122/80 122/80 Pulse Oximetry 96 Oxygen Delivery Fraction of Inspired Oxygen 12/18/24 01:46 12/18/24 01:46 12/18/24 01:51 Temperature 38.4 C H 38.4 C H Pulse Rate 101 H 93 Respiratory Rate 20 20 Blood Pressure 84/67 L Pulse Oximetry 93 Oxygen Delivery Fraction of Inspired Oxygen 12/18/24 02:00 12/18/24 02:00 12/18/24 02:00 Temperature 38.4 C H Pulse Rate 97 97 97 Respiratory Rate 20 23 H Blood Pressure 96/66 L 96/66 L Pulse Oximetry 94 95 Oxygen Delivery Fraction of Inspired Oxygen 12/18/24 02:00 12/18/24 02:00 12/18/24 02:01 Temperature 38.4 C H Pulse Rate 97 97 102 H Respiratory Rate 20 20 20 Blood Pressure Pulse Oximetry 94 Oxygen Delivery Fraction of Inspired Oxygen 12/18/24 02:16 12/18/24 02:17 12/18/24 02:30 Temperature 38.3 C H 38.3 C H 38.3 C H Pulse Rate 99 98 96 Respiratory Rate 20 18 20 Blood Pressure 98/72 L Pulse Oximetry 95 95 97 Oxygen Delivery Fraction of Inspired Oxygen 12/18/24 02:31 12/18/24 02:45 12/18/24 02:46 Temperature 38.3 C H 38.2 C H 38.2 C H Pulse Rate 99 99 96 Respiratory Rate 20 20 16 Blood Pressure 84/64 L 90/64 L Pulse Oximetry 97 96 96 Oxygen Delivery Fraction of Inspired Oxygen 12/18/24 02:55 12/18/24 03:00 12/18/24 03:01 Temperature 38.1 C H 38.1 C H Pulse Rate 102 H 95 101 H Respiratory Rate 18 16 Blood Pressure 90/64 L 99/83 L Pulse Oximetry 97 97 Oxygen Delivery Fraction of Inspired Oxygen 12/18/24 03:15 12/18/24 03:16 12/18/24 03:30 Temperature 37.9 C H 37.9 C H 37.8 C H Pulse Rate 98 94 105 H Respiratory Rate 22 H 14 16 Blood Pressure 110/65 Pulse Oximetry 95 94 94 Oxygen Delivery Fraction of Inspired Oxygen 12/18/24 03:31 12/18/24 03:35 12/18/24 03:35 Temperature 37.8 C H Pulse Rate 101 H Respiratory Rate 13 Blood Pressure 95/73 L Pulse Oximetry 98 96 Oxygen Delivery Mechanical Ventilation Fraction of Inspired Oxygen 50 50 12/18/24 03:45 12/18/24 03:46 12/18/24 04:00 Temperature 37.7 C H 37.7 C H Pulse Rate 96 96 97 Respiratory Rate 0 L 5 L Blood Pressure 103/82 Pulse Oximetry 96 97 Oxygen Delivery Fraction of Inspired Oxygen 12/18/24 04:00 12/18/24 04:00 12/18/24 04:00 Temperature 37.6 C H 37.7 C H Pulse Rate 97 98 97 Respiratory Rate 20 13 20 Blood Pressure 102/78 Pulse Oximetry 98 97 Oxygen Delivery Fraction of Inspired Oxygen 12/18/24 04:00 12/18/24 04:00 12/18/24 04:01 Temperature 37.7 C H Pulse Rate 97 97 97 Respiratory Rate 20 20 Blood Pressure 97/62 L 97/62 L Pulse Oximetry 98 Oxygen Delivery Fraction of Inspired Oxygen 12/18/24 04:15 12/18/24 04:16 12/18/24 04:30 Temperature 37.6 C H 37.6 C H 37.6 C Pulse Rate 97 97 96 Respiratory Rate 11 L 20 13 Blood Pressure 102/78 Pulse Oximetry 97 98 96 Oxygen Delivery Fraction of Inspired Oxygen 12/18/24 04:31 12/18/24 04:45 12/18/24 04:46 Temperature 37.6 C 37.6 C 37.6 C Pulse Rate 96 97 97 Respiratory Rate 18 14 12 Blood Pressure 103/67 96/73 L Pulse Oximetry 98 95 97 Oxygen Delivery Fraction of Inspired Oxygen 12/18/24 05:03 12/18/24 06:00 12/18/24 06:00 Temperature Pulse Rate 96 96 96 Respiratory Rate 20 Blood Pressure 116/80 Pulse Oximetry 97 Oxygen Delivery Mechanical Ventilation Fraction of Inspired Oxygen 50 12/18/24 06:00 12/18/24 06:00 12/18/24 06:00 Temperature Pulse Rate 96 96 96 Respiratory Rate 20 20 Blood Pressure 107/71 Pulse Oximetry 98 Oxygen Delivery Fraction of Inspired Oxygen 12/18/24 06:28 12/18/24 08:00 12/18/24 08:00 Temperature 37.6 C H Pulse Rate 96 97 Respiratory Rate 16 16 Blood Pressure 103/74 Pulse Oximetry 97 97 Oxygen Delivery Mechanical Ventilation Fraction of Inspired Oxygen 40 40 12/18/24 08:00 12/18/24 08:00 12/18/24 08:00 Temperature Pulse Rate 96 92 Respiratory Rate Blood Pressure 103/74 Pulse Oximetry Oxygen Delivery Fraction of Inspired Oxygen 40 12/18/24 08:45 12/18/24 08:45 12/18/24 08:46 Temperature Pulse Rate 102 H 98 97 Respiratory Rate 13 13 13 Blood Pressure Pulse Oximetry Oxygen Delivery Fraction of Inspired Oxygen 12/18/24 08:46 12/18/24 09:00 12/18/24 09:00 Temperature Pulse Rate 104 H 106 H 106 H Respiratory Rate 13 16 Blood Pressure Pulse Oximetry 95 Oxygen Delivery Mechanical Ventilation Fraction of Inspired Oxygen 40 12/18/24 09:07 12/18/24 10:00 12/18/24 10:00 Temperature Pulse Rate 97 97 96 Respiratory Rate 16 14 Blood Pressure 101/66 Pulse Oximetry 96 Oxygen Delivery Fraction of Inspired Oxygen 12/18/24 10:00 12/18/24 11:45 12/18/24 12:00 Temperature Pulse Rate 96 97 99 Respiratory Rate Blood Pressure 102/74 Pulse Oximetry 97 Oxygen Delivery Mechanical Ventilation Fraction of Inspired Oxygen 40 12/18/24 12:00 12/18/24 12:00 12/18/24 12:00 Temperature 37.7 C H Pulse Rate 99 99 Respiratory Rate 16 16 Blood Pressure 102/72 Pulse Oximetry 95 96 Oxygen Delivery Mechanical Ventilation Fraction of Inspired Oxygen 40 40 12/18/24 12:00 12/18/24 13:00 12/18/24 13:05 Temperature Pulse Rate 97 96 96 Respiratory Rate Blood Pressure 102/72 79/65 L 86/52 L Pulse Oximetry Oxygen Delivery Fraction of Inspired Oxygen 12/18/24 13:40 12/18/24 13:48 Temperature Pulse Rate 96 97 Respiratory Rate 16 16 Blood Pressure Pulse Oximetry Oxygen Delivery Fraction of Inspired Oxygen Intake/Output Intake/Output: Intake & Output 12/15/24 12/16/24 12/17/24 12/18/24 23:59 23:59 23:59 23:59 Intake Total 1420 1520 984.6 1074.5 Output Total 900 1000 1725 2750 Balance 520 520 -740.4 -1675.5 Meds/Results Medications: Active Medications Generic Name Dose Route Start Last Admin Trade Name Freq PRN Reason Stop Dose Admin Acetaminophen 650 mg 12/14/24 20:56 12/18/24 00:46 Acetaminophen 325 Mg Tablet PO 650 mg Q4H PRN Administration Mild Pain (1-3) or Fever Albuterol 2.5 mg 12/14/24 21:44 Albuterol Sulfate Neb 2.5 Mg/3 Ml Inh INHALATION Q4HRT PRN Shortness Of Breath Or Wheezing Albuterol/Ipratropium 3 ml 12/15/24 02:00 12/18/24 13:39 Ipratropium 0.5 Mg/Albuterol Sulfate 2.5 Mg Ampul.Neb 3 Ml INHALATION 3 ml Q6HRT REJI Administration Aspirin 81 mg 12/17/24 09:00 12/18/24 08:37 Aspirin 81 Mg Chewable Tablet PO 81 mg DAILY REJI Administration Dextrose 12.5 gm 12/17/24 08:17 Dextrose 50% 25 Gm/50 Ml Syringe IV PUSH PRN PRN Hypoglycemia Protocol Empagliflozin 10 mg 12/15/24 09:00 12/18/24 08:37 Empagliflozin 10 Mg Tablet PO 10 mg DAILY REJI Administration Enoxaparin Sodium 40 mg 12/15/24 09:00 12/18/24 08:36 Enoxaparin 40 Mg/0.4 Ml Syringe SUB-Q 40 mg DAILY REJI Administration Furosemide 40 mg 12/15/24 09:00 12/18/24 08:36 Furosemide Inj 40 Mg/4 Ml Vial IV PUSH 40 mg Q12HR REJI Administration Glucagon 1 mg 12/17/24 08:17 Glucagon For Inj 1 Mg Vial IM PRN PRN Hypoglycemia Protocol Glucose 15 gm 12/17/24 08:17 Glucose Oral Gel 15 Gm Of Glucse In 37.5 Gm Tube PO PRN PRN Hypoglycemia Protocol Azithromycin 500 mg in 250 mls @ 250 mls/hr 12/15/24 22:00 12/17/24 23:48 Zithromax IVPB Infused Q24H REJI Infusion Fentanyl Citrate 2,500 mcg in 250 mls @ 12.5 mls/hr 12/17/24 00:05 12/18/24 08:45 Fentanyl 2,500 Mcg/Ns 250 Ml IV CONT 125 mcg/hr .Q20H REJI 12.5 mls/hr Titration Protocol 125 MCG/HR Midazolam HCl 100 mg in 100 mls @ 7 mls/hr 12/17/24 00:05 12/18/24 08:46 Versed 100 Mg/Ns 100 Ml IV CONT 7 mg/hr .[id number] REJI 7 mls/hr Administration Protocol 7 MG/HR Norepinephrine Bitartrate 8 mg in 250 mls @ 16.875 mls/hr 12/17/24 01:05 12/18/24 13:05 Levophed 8 Mg/D5w 250 Ml IV CONT 9 mcg/min .[id number] REJI 16.88 mls/hr Titration Protocol 9 MCG/MIN Dextrose 1,000 mls @ 100 mls/hr 12/17/24 08:17 Dextrose 5% 1,000 Ml IVPB PRN PRN Hypoglycemia Protocol Piperacillin/Tazobactam/Dextrose 3.375 gm in 50 mls @ 100 mls/hr 12/17/24 09:00 12/18/24 09:07 Zosyn 3.375 Gm/Ns 50 Ml IVPB Infused Q6H [facility] Infusion Vancomycin HCl 1,500 mg in 500 mls @ 250 mls/hr 12/19/24 09:00 Vancomycin 1,500 Mg/Ns 500 Ml IVPB Q24H [facility] Insulin Aspart 3 - 6 units 12/17/24 12:00 12/18/24 12:19 Insulin Aspart (*Bkc) 100 Units/Ml SUB-Q Not Given Q6HR [facility] Protocol Multi-Ingred Cream/Lotion/Oil/Oint 1 applic 12/17/24 09:00 12/18/24 08:36 Mineral Oil/White Petrolatum Ointment EACH EYE 1 applic Q12HR REJI Administration Pantoprazole Sodium 40 mg 12/17/24 09:00 12/18/24 08:36 Pantoprazole Sodium Iv 40 Mg Vial IV PUSH 40 mg DAILY REJI Administration Rosuvastatin Calcium 10 mg 12/15/24 09:00 12/18/24 08:37 Rosuvastatin 10 Mg Tablet PO 10 mg QAM REJI Administration Sacubitril/Valsartan 1 tab 12/15/24 09:00 12/16/24 21:45 Sacubitril/Valsartan 24-26 Mg Tablet PO 1 tab Q12HR REJI Administration Sodium Chloride 10 ml 12/17/24 06:00 12/18/24 13:31 Central Line Flush IV PUSH 10 ml Q8HR REJI Administration Sodium Chloride 20 ml 12/17/24 00:03 Central Line Flush IV PUSH PRN PRN after blood draws Sodium Chloride 10 ml 12/17/24 06:00 12/18/24 13:31 Central Line Flush IV PUSH 10 ml Q8HR REJI Administration Sodium Chloride 20 ml 12/17/24 00:05 12/18/24 05:40 Central Line Flush IV PUSH 20 ml PRN PRN Administration after blood draws Radiology Results: ITS Impressions Chest CTA 12/16/24 13:43 IMPRESSION: No pulmonary embolus. No thoracic aortic dissection. Findings suggesting congestive failure, with large bilateral pleural effusions and intra-abdominal ascites. Abdomen X-Ray 12/17/24 07:07 IMPRESSION: Orogastric tube in good position and ready for immediate use. Remainder of examination is unchanged Head CT 12/17/24 07:09 Impression: No acute intracranial hemorrhage or suspicious mass effect. Chest/Abdomen/Pelvis CTA 12/17/24 07:41 IMPRESSION: No pulmonary embolus. No aortic dissection. Increasing bilateral pleural effusions with adjacent compressive atelectasis. Rim-enhancing fluid collection along the anterior abdominal wall measuring denser than simple fluid for which a perioperative seroma versus abscess (less likely) is suspected. Focused ultrasound may be performed for further evaluation. Chest X-Ray 12/18/24 07:17 IMPRESSION: Mild pulmonary vascular congestion with small on the right and moderate on the left, pleural effusions, decreased from previous examination. Supportive lines and tubes in good position. Venous Doppler Study 12/18/24 11:04 IMPRESSION: 1. No deep venous thrombosis. Labs Labs: Laboratory Results - last 24 hr 12/17/24 12/17/24 12/18/24 17:15 23:47 04:56 WBC RBC Hgb Hct MCV MCH MCHC RDW Plt Count MPV Immature Gran % (Auto) Neut % (Auto) Lymph % (Auto) [place] % (Auto) Eos % (Auto) Baso % (Auto) Lymph # (Auto) [place] # (Auto) Eos # (Auto) Baso # (Auto) Abs Immat Gran (auto) Absolute Neuts (auto) Absolute Nucleated RBC Nucleated RBC % PT INR APTT Puncture Site Right radial ABG pH 7.526 H* ABG pCO2 36.8 ABG pO2 111.9 H ABG PO2/FiO2 Ratio 2.24 ABG HCO3 29.8 H ABG O2 Saturation 98.5 ABG O2 Content 17.0 ABG Base Excess 6.8 A-a Gradient 203.2 Oxyhemoglobin 97.2 Carboxyhemoglobin 0.8 Methemoglobin 0.3 Reduced Hemoglobin 1.7 Total Hemoglobin 12.3 O2 Delivery Device Ventilator O2 Liters/Min Not Reportable Minute Volume Not Reportable Vent Rate 20 Vent Mode Cmv FiO2 50 Tidal Volume 420 PEEP 8 Peak Inspir Pressure Not Reportable Pressure Support Not Reportable Sodium Potassium Chloride Carbon Dioxide Anion Gap BUN Creatinine Estim Creat Clear Calc Estimated GFR Glucose POC Capillary Glucose 123 H 132 H Calcium Phosphorus Total Bilirubin AST ALT Alkaline Phosphatase Total Protein Albumin Nasal MRSA (PCR) 12/18/24 12/18/24 12/18/24 05:13 12:10 12:13 WBC 11.7 H RBC 4.49 L Hgb 11.1 L Hct 36.4 L MCV 81.1 MCH 24.7 L MCHC 30.5 L RDW 18.2 H Plt Count 243 MPV 9.6 Immature Gran % (Auto) 0.3 Neut % (Auto) 61.1 Lymph % (Auto) 24.7 [place] % (Auto) 11.7 H Eos % (Auto) 1.5 Baso % (Auto) 0.7 Lymph # (Auto) 2.88 [place] # (Auto) 1.4 H Eos # (Auto) 0.2 Baso # (Auto) 0.1 Abs Immat Gran (auto) 0.03 Absolute Neuts (auto) 7.2 H Absolute Nucleated RBC 0.000 Nucleated RBC % 0.0 PT 16.6 H INR 1.3 APTT 36.4 Puncture Site ABG pH ABG pCO2 ABG pO2 ABG PO2/FiO2 Ratio ABG HCO3 ABG O2 Saturation ABG O2 Content ABG Base Excess A-a Gradient Oxyhemoglobin Carboxyhemoglobin Methemoglobin Reduced Hemoglobin Total Hemoglobin O2 Delivery Device O2 Liters/Min Minute Volume Vent Rate Vent Mode FiO2 Tidal Volume PEEP Peak Inspir Pressure Pressure Support Sodium 138 Potassium 3.6 Chloride 98 Carbon Dioxide 35 H Anion Gap 5 BUN 32 H Creatinine 1.11 Estim Creat Clear Calc 46 Estimated GFR > 60 Glucose 115 H POC Capillary Glucose 122 H Calcium 8.0 L Phosphorus 3.9 Total Bilirubin 1.1 AST 77 H ALT 59 H Alkaline Phosphatase 61 Total Protein 6.1 L Albumin 3.2 L Nasal MRSA (PCR) Detected A*
[2024-12-18] MEDS: FENTANYL 2,500MCG/NS250ML(*CRX 2,500 MCG/250 ML BAG 12.5 MCG IV CONT (20:00)
[2024-12-18] MEDS: AZITHROMYCIN 500 MG/NS 250 ML 500 MG/250 ML BAG 250 MG IVPB (21:23)
[2024-12-18] MEDS: MIDAZOLAM 100MG/NS 100ML(*CRX) 100 MG/100 ML BAG IV CONT (23:21)
[2024-12-19] VITALS (45 sets, daily range): BP systolic 83–129; BP diastolic 54–86; PULSE 92–144; RESP 4–20; TEMP 37.6–38.4; O2SAT 93–99; BMI 27.9
[2024-12-19] MEDS: NOREPINEPHRINE 8 MG/D5W 250 ML 8 MG/250 ML BAG 13.13 MG IV CONT (00:22)
[2024-12-19] MEDS: IPRATROPIUM 0.5 MG/ALBUTEROL SULFATE 2.5 MG AMPUL.NEB 3 ML INHALATION ×4 (02:18→20:25)
[2024-12-19] MEDS: PIPERACILLN/TAZ 3.375GM/NS50ML 3.375 GM/50 ML BAG IVPB ×2 (03:34→08:36)
[2024-12-19 04:22] LABS: Alveolar/Arterial O2 Gradient 116.9 mmHg; Carboxyhemoglobin 0.8 % THb (0-2.0); Fractional Inspired Oxygen 40 %; HCO3 ABG 33.6 mEq/l (22.0-26.0); Methemoglobin ABG 0.1 %THb (0-1.5); Oxygen Content ABG 17.7 %vol (16.0-22.0); Oxygen Saturation ABG 97.7 % (95.0-100.0); PCO2 ABG 55.5 mmHg (35.0-45.0); PO2 ABG 104.5 mmHg (80.0-100.0); PO2 FiO2 Ratio Arterial Blood 2.61 %; Reduced Hemoglobin 2.2 %THb (0-5.0)
[2024-12-19 04:24] LABS: Site Drawn RIGHT RADIAL
[2024-12-19 04:25] LABS: Arterial Blood Gas Ventilator rate 16 /MIN; Modified Allen's Test Pass
[2024-12-19 04:26] LABS: Arterial Blood Gas Tidal Volume 420 ml
[2024-12-19 05:15] LABS: Hematocrit 38.2 % (42.0-52.0); Hemoglobin 11.4 g/dL (14.0-18.0); Immature Granulocyte Percent A 0.5 % (0-0.5); Lymphocytes Absolute Auto 2.25 K/mm3 (0.9-3.2); Mean Corpuscular HGB Conc 29.8 g/dl (32-36); Mean Corpuscular Hemoglobin 25.1 pg (26-34); Mean Corpuscular Volume 84.1 fl (80-100); Nucleated Red Blood Cells Absolute Auto 0.000 K/mm3 (0.0-0.012); Nucleated Red Blood Cells Perc 0.0 % (0.0-0.2); Platelet Count Result 223 k/mm3 (150-375); Red Blood Count 4.54 M/mm3 (4.6-6.20); White Blood Count 12.3 K/mm3 (4.5-10.0)
[2024-12-19 05:23] LABS: Alanine Aminotransferase 53 U/L (6-50); Albumin Level 3.2 g/dL (3.5-5.1); Alkaline Phosphatase 67 U/L (38-126); Anion Gap 7 mmol/L (4-12); Aspartate Amino Transferase 69 U/L (17-59); Bilirubin,Total 0.9 mg/dL (0.2-1.3); Blood Urea Nitrogen 24 mg/dL (9-20); Calcium 8.1 mg/dL (8.4-10.2); Carbon Dioxide 33 mmol/L (22-30); Chloride 102 mmol/L (98-107); Estimated CRCL calculation 52 ml/min; Estimated Glomerular Filt Rate > 60; Glucose 113 mg/dL (65-110); Potassium 3.7 mmol/L (3.4-5.0); Sodium 142 mmol/L (137-145); Total Protein 6.4 g/dL (6.3-8.2)
[2024-12-19 05:28] LABS: INR 1.3; Prothrombin Time 15.8 Seconds (11.1-14.7)
[2024-12-19 05:29] LABS: Partial Thromboplastin Time 36.3 Seconds (22.3-36.8)
[2024-12-19 05:44] LABS: Anisocytosis 1+
[2024-12-19 05:45] LABS: Hypochromasia 1+; Schistocytes None Seen
[2024-12-19] MEDS: CENTRAL LINE FLUSH 10 ML IV PUSH ×3 (06:25→21:08)
[2024-12-19] MEDS: METOPROLOL TARTRATE INJ 5 MG/5 ML VIAL IV PUSH ×3 (07:16→22:41)
--- NOTE | 2024-12-19 08:02 | P.PNINT_ITS ---
Progress Note: A&P Assessment and Plan (1) Acute hypoxic respiratory failure: Code(s): J96.01 - Acute respiratory failure with hypoxia Status: Acute Assessment and Plan: Acute Respiratory failure secondary to congestive heart failure leading to pleural effusions and pulmonary edema. Patient also has bilateral atelectasis with questionable pneumonia 12/16 intubated and placed on mechanical ventilation CTA chest 12/17 IMPRESSION: No pulmonary embolus. No aortic dissection. Increasing bilateral pleural effusions with adjacent compressive atelectasis. Rim-enhancing fluid collection along the anterior abdominal wall measuring denser than simple fluid for which a perioperative seroma versus abscess (less likely) is suspected. Focused ultrasound may be performed for further evaluation. Continue full mechanical ventilation support to prevent hypoxemia/hypercarbia and end organ damage. ABG reviewed and continue CMV at tidal volume 420 rate 16 FiO2 40% and peep of 8 Continue Lasix for diuresis Consulted IR for thoracentesis starting with the left side. Plan for 12/19 Bronchodilators procalcitonin level was 0.4. Continue Zosyn azithromycin Added vancomycin due to positive MRSA on nasal screen Blood cultures were done on 12/14 and 12/16 for and have been negative Pending sputum culture Will perform sedation holiday today. Will defer weaning until patient has thoracentesis and drainage of abdominal wall seroma (2) Shock: Code(s): R57.9 - Shock, unspecified Status: Acute Assessment and Plan: Multifactorial. Likely secondary combination of sedation, questionable sepsis,? Cardiogenic Continue Levophed titration to maintain mean arterial pressure. (3) Acute exacerbation of CHF (congestive heart failure): Qualifiers: Heart failure type: combined systolic and diastolic Qualified Code(s): I50.43 - Acute on chronic combined systolic (congestive) and diastolic (congestive) heart failure Code(s): I50.9 - Heart failure, unspecified Status: Acute Assessment and Plan: Patient was recently diagnosed with congestive heart failure with EF of 40-45% and diastolic dysfunction. He was discharged on multiple medications but unfortunately was not taking any and was taking low-dose Lasix. Now presented with congestive heart failure with lower extremity edema pull effusions which has been gradually getting worse now leading to intubation and mechanical scooter tilation I will hold Entresto beta-garret due to hypotension Continue Levophed for ionotropic and blood pressure support Continue Lasix for diuresis Echo Summary 1. Left ventricular chamber dimension is moderately enlarged. 2. Left ventricular systolic function is moderately reduced, estimated at 30- 35. 3. There is mildly increased left ventricular wall thickness. 4. The left ventricular diastolic function is abnormal. 5. Right ventricular chamber dimension is mildly enlarged. 6. Right ventricular systolic function is reduced. 7. Left atrial chamber dimension is mildly enlarged. 8. Right atrial chamber dimension is mildly enlarged. 9. There is severe mitral valve regurgitation. 10. There is severe tricuspid valve regurgitation. 11. Moderate pulmonary hypertension, estimated pulmonary arterial systolic pressure is 53 mmHg. (4) Elevated troponin: Code(s): R79.89 - Other specified abnormal findings of blood chemistry Status: Acute Assessment and Plan: Chronically elevated troponin levels. Will discuss with Cardiology regarding workup for ischemic coronary disease Currently on aspirin Patient was not reporting any chest pain during the hospitalization prior to intubation (5) Atrial fibrillation: Qualifiers: Atrial fibrillation type: unspecified Qualified Code(s): I48.91 - Unspecified atrial fibrillation Code(s): I48.91 - Unspecified atrial fibrillation Status: Chronic Assessment and Plan: History of AFib in the chart but none of the past EKGs have shown AFib and also currently in sinus rhythm (6) Hyperlipidemia: Code(s): E78.5 - Hyperlipidemia, unspecified Status: Chronic Assessment and Plan: Continue statin (7) Bilateral pleural effusion: Code(s): J90 - Pleural effusion, not elsewhere classified Status: Acute Assessment and Plan: See above (8) Pneumonia: Qualifiers: Laterality: bilateral Lung location: lower lobe of lung Pneumonia type: due to unspecified organism Qualified Code(s): J18.9 - Pneumonia, unspecified organism Code(s): J18.9 - Pneumonia, unspecified organism Status: Acute Assessment and Plan: See above (9) Substance abuse: Code(s): F19.10 - Other psychoactive substance abuse, uncomplicated Status: Chronic Assessment and Plan: Long History of drug abuse including cocaine could be the etiology of his congestive heart failure. (10) Abdominal fluid collection: Code(s): R18.8 - Other ascites Status: Acute Assessment and Plan: CT scan of the abdomen shows Rim-enhancing fluid collection along the anterior abdominal wall measuring denser than simple fluid for which a perioperative seroma versus abscess (less likely) is suspected. Focused ultrasound may be performed for further evaluation.. Patient had abdominal surgery for umbilical hernia and small-bowel obstruction Patient was evaluated by General surgery and surgeon feels that this is likely a seroma. Ultrasound-guided drainage ordered and plan for 12/19 Continue antibiotics as above (11) Lower extremity edema: Code(s): R60.0 - Localized edema Status: Acute Assessment and Plan: Likely secondary to congestive heart failure. Venous Dopplers were negative during Plan DVT prophylaxis -Lovenox Stress ulcer prophylaxis -PPI Nutrition -continue Tube Feeds Code Status - Full Code Total Critical Care Time - 30 minutes Due to a high probability of clinically significant, life threatening deterioration, the patient required my highest level of preparedness to intervene emergently and I personally spent this critical care time directly and personally managing the patient. This critical care time included obtaining a history; examining the patient; pulse oximetry; ordering and review of studies; arranging urgent treatment with development of a management plan; evaluation of patient's response to treatment; frequent reassessment; and discussions with other providers. It was exclusive of separately billable procedures and treating other patients and teaching time. Please see Assessment and Plan section and the rest of the note for further information on patient assessment and treatment Subjective Date/time seen: 12/19/24 Overnight events reviewed. febrile Continues to be on mechanical ventilation 40% FiO2 and 8 of PEEP Continues to be on low-dose Levophed Continues to be sedated with Versed and fentanyl Tolerating tube feeds Good urine output in response to Lasix Other Vitals acceptable Review of Systems Review of Systems: ROS unobtainable: Yes unobtainable due to endotracheal tube, unobtainable due to medical condition and unobtainable due to mental status Exam Narrative: General: Pt is sedated, intubated and on mechanical ventilation Lungs/Chest: Trachea central Coarse BS B/L, breath sounds are decreased on bases. Cardiac: RRR. Normal S1 S2. Systolic murmur 3/6 present Circulation: Pedal pulses are intact and symmetrical. Abdomen: Decreased bowel sounds. Obese. Soft. NT. ND. Extremities: Bilateral pitting edema present right > left : [place] in place Neurologic: Unable to assess due to sedation. Moves all 4 extremities to painful stimuli. PERRL Objective Data Vital Signs Vital Signs: Vital Signs - 24 hr 12/18/24 08:45 12/18/24 08:45 12/18/24 08:46 Temperature Pulse Rate 102 H 98 97 Respiratory Rate 13 13 13 Blood Pressure Pulse Oximetry Oxygen Delivery Fraction of Inspired Oxygen 12/18/24 08:46 12/18/24 09:00 12/18/24 09:00 Temperature Pulse Rate 104 H 106 H 106 H Respiratory Rate 13 16 Blood Pressure Pulse Oximetry 95 Oxygen Delivery Mechanical Ventilation Fraction of Inspired Oxygen 40 12/18/24 09:07 12/18/24 10:00 12/18/24 10:00 Temperature Pulse Rate 97 97 96 Respiratory Rate 16 14 Blood Pressure 101/66 Pulse Oximetry 96 Oxygen Delivery Fraction of Inspired Oxygen 12/18/24 10:00 12/18/24 10:00 12/18/24 10:00 Temperature Pulse Rate 96 97 97 Respiratory Rate 18 18 Blood Pressure 102/74 Pulse Oximetry Oxygen Delivery Fraction of Inspired Oxygen 12/18/24 11:45 12/18/24 12:00 12/18/24 12:00 Temperature Pulse Rate 97 99 Respiratory Rate Blood Pressure Pulse Oximetry 97 Oxygen Delivery Mechanical Ventilation Fraction of Inspired Oxygen 40 40 12/18/24 12:00 12/18/24 12:00 12/18/24 12:00 Temperature 37.7 C H Pulse Rate 99 99 97 Respiratory Rate 16 16 Blood Pressure 102/72 102/72 Pulse Oximetry 95 96 Oxygen Delivery Mechanical Ventilation Fraction of Inspired Oxygen 40 12/18/24 12:00 12/18/24 12:00 12/18/24 13:00 Temperature Pulse Rate 96 96 96 Respiratory Rate 20 16 Blood Pressure 79/65 L Pulse Oximetry Oxygen Delivery Fraction of Inspired Oxygen 12/18/24 13:05 12/18/24 13:40 12/18/24 13:48 Temperature Pulse Rate 96 96 97 Respiratory Rate 16 16 Blood Pressure 86/52 L Pulse Oximetry Oxygen Delivery Fraction of Inspired Oxygen 12/18/24 14:00 12/18/24 14:00 12/18/24 14:00 Temperature 37.9 C H Pulse Rate 98 97 96 Respiratory Rate 16 Blood Pressure 129/83 129/83 Pulse Oximetry 97 Oxygen Delivery Fraction of Inspired Oxygen 12/18/24 14:00 12/18/24 14:00 12/18/24 14:08 Temperature Pulse Rate 91 97 96 Respiratory Rate 16 13 Blood Pressure Pulse Oximetry 97 Oxygen Delivery Mechanical Ventilation Fraction of Inspired Oxygen 40 12/18/24 16:00 12/18/24 16:00 12/18/24 16:00 Temperature Pulse Rate 87 96 96 Respiratory Rate 20 18 Blood Pressure 101/70 Pulse Oximetry 98 97 Oxygen Delivery Mechanical Ventilation Fraction of Inspired Oxygen 40 12/18/24 16:00 12/18/24 16:00 12/18/24 16:00 Temperature Pulse Rate 96 87 Respiratory Rate 18 16 Blood Pressure Pulse Oximetry Oxygen Delivery Fraction of Inspired Oxygen 40 12/18/24 16:00 12/18/24 17:10 12/18/24 18:00 Temperature Pulse Rate 97 96 75 Respiratory Rate Blood Pressure 118/82 Pulse Oximetry 97 Oxygen Delivery Mechanical Ventilation Fraction of Inspired Oxygen 40 12/18/24 18:00 12/18/24 18:00 12/18/24 18:00 Temperature Pulse Rate 96 97 96 Respiratory Rate 18 17 13 Blood Pressure 106/71 Pulse Oximetry 97 Oxygen Delivery Fraction of Inspired Oxygen 12/18/24 18:00 12/18/24 19:45 12/18/24 19:51 Temperature Pulse Rate 93 96 96 Respiratory Rate 16 15 Blood Pressure 101/72 Pulse Oximetry Oxygen Delivery Fraction of Inspired Oxygen 12/18/24 19:55 12/18/24 20:00 12/18/24 20:00 Temperature Pulse Rate 96 96 9 L Respiratory Rate 16 15 15 Blood Pressure Pulse Oximetry Oxygen Delivery Fraction of Inspired Oxygen 12/18/24 20:00 12/18/24 20:00 12/18/24 20:00 Temperature Pulse Rate 98 98 Respiratory Rate 15 Blood Pressure Pulse Oximetry 97 Oxygen Delivery Mechanical Ventilation Fraction of Inspired Oxygen 40 40 12/18/24 20:00 12/18/24 20:00 12/18/24 20:25 Temperature 38.2 C H Pulse Rate 97 96 96 Respiratory Rate 14 Blood Pressure 108/67 108/67 Pulse Oximetry 97 97 Oxygen Delivery Mechanical Ventilation Fraction of Inspired Oxygen 40 12/18/24 20:40 12/18/24 21:22 12/18/24 21:40 Temperature 38.2 C H 37.7 C H Pulse Rate 100 Respiratory Rate Blood Pressure Pulse Oximetry Oxygen Delivery Fraction of Inspired Oxygen 12/18/24 22:00 12/18/24 22:00 12/18/24 22:00 Temperature 36.7 C Pulse Rate 53 L 106 H 106 H Respiratory Rate 10 L 14 15 Blood Pressure 101/51 L Pulse Oximetry 98 Oxygen Delivery Fraction of Inspired Oxygen 12/18/24 23:14 12/18/24 23:21 12/18/24 23:26 Temperature Pulse Rate 101 H 101 H 95 Respiratory Rate 14 14 14 Blood Pressure 75/63 L Pulse Oximetry 97 Oxygen Delivery Fraction of Inspired Oxygen 12/18/24 23:27 12/18/24 23:45 12/18/24 23:49 Temperature Pulse Rate 95 95 98 Respiratory Rate Blood Pressure 75/63 L 98/69 L Pulse Oximetry 97 Oxygen Delivery Mechanical Ventilation Fraction of Inspired Oxygen 40 12/19/24 00:00 12/19/24 00:00 12/19/24 00:00 Temperature Pulse Rate 98 95 Respiratory Rate 14 Blood Pressure Pulse Oximetry 97 Oxygen Delivery Mechanical Ventilation Fraction of Inspired Oxygen 40 40 12/19/24 00:00 12/19/24 00:00 12/19/24 00:00 Temperature 37.7 C H Pulse Rate 95 95 95 Respiratory Rate 14 13 4 L Blood Pressure 98/69 L Pulse Oximetry 96 Oxygen Delivery Fraction of Inspired Oxygen 12/19/24 00:22 12/19/24 02:00 12/19/24 02:00 Temperature Pulse Rate 95 95 95 Respiratory Rate 14 14 Blood Pressure 98/69 L Pulse Oximetry Oxygen Delivery Fraction of Inspired Oxygen 12/19/24 02:00 12/19/24 02:00 12/19/24 02:00 Temperature 37.7 C H Pulse Rate 95 95 96 Respiratory Rate 14 16 Blood Pressure 111/73 Pulse Oximetry 99 Oxygen Delivery Fraction of Inspired Oxygen 12/19/24 02:05 12/19/24 02:11 12/19/24 02:49 Temperature Pulse Rate 95 96 98 Respiratory Rate 16 Blood Pressure 111/73 Pulse Oximetry 97 Oxygen Delivery Mechanical Ventilation Fraction of Inspired Oxygen 40 12/19/24 04:00 12/19/24 04:00 12/19/24 04:00 Temperature Pulse Rate 95 98 Respiratory Rate 14 Blood Pressure Pulse Oximetry 99 Oxygen Delivery Mechanical Ventilation Fraction of Inspired Oxygen 40 40 12/19/24 04:00 12/19/24 04:00 12/19/24 04:00 Temperature 37.9 C H Pulse Rate 98 98 98 Respiratory Rate 15 14 14 Blood Pressure 117/78 Pulse Oximetry 96 Oxygen Delivery Fraction of Inspired Oxygen 12/19/24 04:00 12/19/24 04:57 12/19/24 05:56 Temperature Pulse Rate 96 140 H 144 H Respiratory Rate Blood Pressure 117/78 Pulse Oximetry 93 Oxygen Delivery Mechanical Ventilation Fraction of Inspired Oxygen 40 12/19/24 06:00 12/19/24 06:00 12/19/24 06:00 Temperature 38.3 C H Pulse Rate 144 H 144 H 144 H Respiratory Rate 16 16 Blood Pressure 124/86 124/82 Pulse Oximetry 99 Oxygen Delivery Fraction of Inspired Oxygen 12/19/24 06:00 12/19/24 07:16 12/19/24 07:42 Temperature Pulse Rate 144 H 144 H 106 H Respiratory Rate 16 16 Blood Pressure Pulse Oximetry Oxygen Delivery Fraction of Inspired Oxygen 12/19/24 07:45 Temperature Pulse Rate 103 H Respiratory Rate Blood Pressure Pulse Oximetry 97 Oxygen Delivery Mechanical Ventilation Fraction of Inspired Oxygen 40 Intake/Output Intake/Output: Intake & Output 12/16/24 12/17/24 12/18/24 12/19/24 23:59 23:59 23:59 23:59 Intake Total 1520 984.6 1825.3 1219.5 Output Total 1000 1725 3400 150 Balance 520 -740.4 -1574.7 1069.5 Meds/Results Medications: Active Medications Generic Name Dose Route Start Last Admin Trade Name Freq PRN Reason Stop Dose Admin Acetaminophen 650 mg 12/14/24 20:56 12/18/24 20:40 Acetaminophen 325 Mg Tablet PO 650 mg Q4H PRN Administration Mild Pain (1-3) or Fever Albuterol 2.5 mg 12/14/24 21:44 Albuterol Sulfate Neb 2.5 Mg/3 Ml Inh INHALATION Q4HRT PRN Shortness Of Breath Or Wheezing Albuterol/Ipratropium 3 ml 12/15/24 02:00 12/19/24 07:42 Ipratropium 0.5 Mg/Albuterol Sulfate 2.5 Mg Ampul.Neb 3 Ml INHALATION 3 ml Q6HRT REJI Administration Aspirin 81 mg 12/17/24 09:00 12/18/24 08:37 Aspirin 81 Mg Chewable Tablet PO 81 mg DAILY REJI Administration Dextrose 12.5 gm 12/17/24 08:17 Dextrose 50% 25 Gm/50 Ml Syringe IV PUSH PRN PRN Hypoglycemia Protocol Empagliflozin 10 mg 12/15/24 09:00 12/18/24 08:37 Empagliflozin 10 Mg Tablet PO 10 mg DAILY REJI Administration Enoxaparin Sodium 40 mg 12/15/24 09:00 12/18/24 08:36 Enoxaparin 40 Mg/0.4 Ml Syringe SUB-Q 40 mg DAILY REJI Administration Furosemide 40 mg 12/15/24 09:00 12/18/24 20:40 Furosemide Inj 40 Mg/4 Ml Vial IV PUSH 40 mg Q12HR REJI Administration Glucagon 1 mg 12/17/24 08:17 Glucagon For Inj 1 Mg Vial IM PRN PRN Hypoglycemia Protocol Glucose 15 gm 12/17/24 08:17 Glucose Oral Gel 15 Gm Of Glucse In 37.5 Gm Tube PO PRN PRN Hypoglycemia Protocol Azithromycin 500 mg in 250 mls @ 250 mls/hr 12/15/24 22:00 12/18/24 22:25 Zithromax IVPB Infused Q24H REJI Infusion Fentanyl Citrate 2,500 mcg in 250 mls @ 10 mls/hr 12/17/24 00:05 12/19/24 06:00 Fentanyl 2,500 Mcg/Ns 250 Ml IV CONT 100 mcg/hr .Q25H REJI 10 mls/hr Titration Protocol 100 MCG/HR Midazolam HCl 100 mg in 100 mls @ 4 mls/hr 12/17/24 00:05 12/19/24 06:15 Versed 100 Mg/Ns 100 Ml IV CONT Not Given .Q25H REJI Protocol 4 MG/HR Norepinephrine Bitartrate 8 mg in 250 mls @ 9.375 mls/hr 12/17/24 01:05 12/19/24 06:00 Levophed 8 Mg/D5w 250 Ml IV CONT 5 mcg/min .Q24H REJI 9.38 mls/hr Titration Protocol 5 MCG/MIN Dextrose 1,000 mls @ 100 mls/hr 12/17/24 08:17 Dextrose 5% 1,000 Ml IVPB PRN PRN Hypoglycemia Protocol Piperacillin/Tazobactam/Dextrose 3.375 gm in 50 mls @ 100 mls/hr 12/17/24 09:00 12/19/24 04:00 Zosyn 3.375 Gm/Ns 50 Ml IVPB Infused Q6H REJI Infusion Vancomycin HCl 1,500 mg in 500 mls @ 250 mls/hr 12/19/24 09:00 Vancomycin 1,500 Mg/Ns 500 Ml IVPB Q24H REJI Insulin Aspart 3 - 6 units 12/17/24 12:00 12/19/24 06:25 Insulin Aspart (*Bkc) 100 Units/Ml SUB-Q Not Given Q6HR [facility] Protocol Multi-Ingred Cream/Lotion/Oil/Oint 1 applic 12/17/24 09:00 12/18/24 20:40 Mineral Oil/White Petrolatum Ointment EACH EYE 1 applic Q12HR REJI Administration Pantoprazole Sodium 40 mg 12/17/24 09:00 12/18/24 08:36 Pantoprazole Sodium Iv 40 Mg Vial IV PUSH 40 mg DAILY REJI Administration Rosuvastatin Calcium 10 mg 12/15/24 09:00 12/18/24 08:37 Rosuvastatin 10 Mg Tablet PO 10 mg QAM REJI Administration Sacubitril/Valsartan 1 tab 12/15/24 09:00 12/16/24 21:45 Sacubitril/Valsartan 24-26 Mg Tablet PO 1 tab Q12HR REJI Administration Sodium Chloride 10 ml 12/17/24 06:00 12/19/24 06:25 Central Line Flush IV PUSH 10 ml Q8HR REJI Administration Sodium Chloride 10 ml 12/17/24 06:00 12/19/24 06:26 Central Line Flush IV PUSH Not Given Q8HR REJI Sodium Chloride 20 ml 12/17/24 00:05 12/18/24 05:40 Central Line Flush IV PUSH 20 ml PRN PRN Administration after blood draws Radiology Results: ITS Impressions Chest CTA 12/16/24 13:43 IMPRESSION: No pulmonary embolus. No thoracic aortic dissection. Findings suggesting congestive failure, with large bilateral pleural effusions and intra-abdominal ascites. Abdomen X-Ray 12/17/24 07:07 IMPRESSION: Orogastric tube in good position and ready for immediate use. Remainder of examination is unchanged Head CT 12/17/24 07:09 Impression: No acute intracranial hemorrhage or suspicious mass effect. Chest/Abdomen/Pelvis CTA 12/17/24 07:41 IMPRESSION: No pulmonary embolus. No aortic dissection. Increasing bilateral pleural effusions with adjacent compressive atelectasis. Rim-enhancing fluid collection along the anterior abdominal wall measuring denser than simple fluid for which a perioperative seroma versus abscess (less likely) is suspected. Focused ultrasound may be performed for further evaluation. Venous Doppler Study 12/18/24 11:04 IMPRESSION: 1. No deep venous thrombosis. Chest X-Ray 12/19/24 05:54 Impression: [id number] left pleural effusion and minimal right pleural effusion. Mild to moderate pulmonary edema pattern with probable left basilar atelectasis. Support tubes, as above. Labs Labs: Laboratory Results - last 24 hr 12/18/24 12/18/24 12/18/24 12:10 12:13 17:48 WBC RBC Hgb Hct MCV MCH MCHC RDW Plt Count MPV Immature Gran % (Auto) Neut % (Auto) Lymph % (Auto) [place] % (Auto) Eos % (Auto) Baso % (Auto) Lymph # (Auto) [place] # (Auto) Eos # (Auto) Baso # (Auto) Abs Immat Gran (auto) Absolute Neuts (auto) Absolute Nucleated RBC Band Neutrophils % Nucleated RBC % Platelet Estimate Hypochromasia Anisocytosis Schistocytes PT INR APTT Puncture Site ABG pH ABG pCO2 ABG pO2 ABG PO2/FiO2 Ratio ABG HCO3 ABG O2 Saturation ABG O2 Content ABG Base Excess A-a Gradient Oxyhemoglobin Carboxyhemoglobin Methemoglobin Reduced Hemoglobin Total Hemoglobin O2 Delivery Device O2 Liters/Min Minute Volume Vent Rate Vent Mode FiO2 Tidal Volume PEEP Peak Inspir Pressure Pressure Support Sodium Potassium Chloride Carbon Dioxide Anion Gap BUN Creatinine Estim Creat Clear Calc Estimated GFR Glucose POC Capillary Glucose 122 H 141 H Calcium Phosphorus Total Bilirubin AST ALT Alkaline Phosphatase Total Protein Albumin Nasal MRSA (PCR) Detected A* 12/19/24 12/19/24 12/19/24 00:09 04:08 04:40 WBC 12.3 H RBC 4.54 L Hgb 11.4 L Hct 38.2 L MCV 84.1 MCH 25.1 L MCHC 29.8 L RDW 18.3 H Plt Count 223 MPV 9.7 Immature Gran % (Auto) 0.5 Neut % (Auto) 65.7 Lymph % (Auto) 18.3 [place] % (Auto) 12.7 H Eos % (Auto) 2.2 Baso % (Auto) 0.6 Lymph # (Auto) 2.25 [place] # (Auto) 1.6 H Eos # (Auto) 0.3 Baso # (Auto) 0.1 Abs Immat Gran (auto) 0.06 H Absolute Neuts (auto) 8.1 H Absolute Nucleated RBC 0.000 Band Neutrophils % Not Reportable Nucleated RBC % 0.0 Platelet Estimate Adequate Hypochromasia 1+ Anisocytosis 1+ Schistocytes None seen PT 15.8 H INR 1.3 APTT 36.3 Puncture Site Right radial ABG pH 7.400 ABG pCO2 55.5 H ABG pO2 104.5 H ABG PO2/FiO2 Ratio 2.61 ABG HCO3 33.6 H ABG O2 Saturation 97.7 ABG O2 Content 17.7 ABG Base Excess 7.2 A-a Gradient 116.9 Oxyhemoglobin 96.9 Carboxyhemoglobin 0.8 Methemoglobin 0.1 Reduced Hemoglobin 2.2 Total Hemoglobin 12.9 O2 Delivery Device Ventilator O2 Liters/Min Not Reportable Minute Volume Not Reportable Vent Rate 16 Vent Mode Cmv FiO2 40 Tidal Volume 420 PEEP 8 Peak Inspir Pressure Not Reportable Pressure Support Not Reportable Sodium 142 Potassium 3.7 Chloride 102 Carbon Dioxide 33 H Anion Gap 7 BUN 24 H Creatinine 0.97 Estim Creat Clear Calc 52 Estimated GFR > 60 Glucose 113 H POC Capillary Glucose 118 H Calcium 8.1 L Phosphorus 3.9 Total Bilirubin 0.9 AST 69 H ALT 53 H Alkaline Phosphatase 67 Total Protein 6.4 Albumin 3.2 L Nasal MRSA (PCR) Quality VTE Prophylaxis VTE prophylaxis: pharmacologic ordered
[2024-12-19] MEDS: MINERAL OIL/WHITE PETROLATUM OINTMENT 1 APPLIC EACH EYE ×2 (08:30→21:07)
[2024-12-19] MEDS: ASPIRIN 81 MG CHEWABLE TABLET PO (08:30)
[2024-12-19] MEDS: PANTOPRAZOLE SODIUM IV 40 MG VIAL IV PUSH (08:30)
[2024-12-19] MEDS: EMPAGLIFLOZIN 10 MG TABLET PO (08:30)
[2024-12-19] MEDS: VANCOMYCIN 1,500 MG/NS 500 ML 1,500 MG/500 ML BAG 250 MG IVPB (08:33)
[2024-12-19] MEDS: ROSUVASTATIN 10 MG TABLET PO (08:45)
[2024-12-19] MEDS: FUROSEMIDE INJ 40 MG/4 ML VIAL IV PUSH ×2 (09:00→21:07)
--- NOTE | 2024-12-19 10:06 | PM.PNGS ---
Progress Note: A&P Assessment and Plan (1) Seroma after procedure: Status: Acute Assessment and Plan: US-guided aspiration of the abdominal wall seroma fluid scheduled for today. Fluid should be sent to microbiology for Gram stain and cultures. If it is a sterile fluid collection, then no further intervention would be needed for now. Plan I have discussed the patient's case and plan of care with Dr. Villasenor. Subjective Subjective Date/Time Seen: 12/19/24 10:06 Interval history: Patient seen in the ICU with nursing at bedside. He is intubated and sedated. He is on a Levophed infusion, rate has come down some in the past 24 hours. Patient scheduled for US-guided aspiration of abdominal wall fluid collection and thoracentesis this morning. Review of Systems Review of Systems: ROS unobtainable: Yes unobtainable due to endotracheal tube Exam Const: General: ill appearing Other: Patient intubated sedated. GI: Other: Abdomen soft and nondistended. No redness of the skin over the area of the hernia repair. Seroma in the periumbilical area of the mid abdominal wall. No recurrent hernia. Objective Data Vital Signs Vital Signs: Vital Signs - 24 hr 12/18/24 11:45 12/18/24 12:00 12/18/24 12:00 Temperature Pulse Rate 97 99 Respiratory Rate Blood Pressure Pulse Oximetry 97 Oxygen Delivery Mechanical Ventilation Fraction of Inspired Oxygen 40 40 12/18/24 12:00 12/18/24 12:00 12/18/24 12:00 Temperature 99.8 F H Pulse Rate 99 99 97 Respiratory Rate 16 16 Blood Pressure 102/72 102/72 Pulse Oximetry 95 96 Oxygen Delivery Mechanical Ventilation Fraction of Inspired Oxygen 40 12/18/24 12:00 12/18/24 12:00 12/18/24 13:00 Temperature Pulse Rate 96 96 96 Respiratory Rate 20 16 Blood Pressure 79/65 L Pulse Oximetry Oxygen Delivery Fraction of Inspired Oxygen 12/18/24 13:05 12/18/24 13:40 12/18/24 13:48 Temperature Pulse Rate 96 96 97 Respiratory Rate 16 16 Blood Pressure 86/52 L Pulse Oximetry Oxygen Delivery Fraction of Inspired Oxygen 12/18/24 14:00 12/18/24 14:00 12/18/24 14:00 Temperature 100.2 F H Pulse Rate 98 97 96 Respiratory Rate 16 Blood Pressure 129/83 129/83 Pulse Oximetry 97 Oxygen Delivery Fraction of Inspired Oxygen 12/18/24 14:00 12/18/24 14:00 12/18/24 14:08 Temperature Pulse Rate 91 97 96 Respiratory Rate 16 13 Blood Pressure Pulse Oximetry 97 Oxygen Delivery Mechanical Ventilation Fraction of Inspired Oxygen 40 12/18/24 16:00 12/18/24 16:00 12/18/24 16:00 Temperature Pulse Rate 87 96 96 Respiratory Rate 20 18 Blood Pressure 101/70 Pulse Oximetry 98 97 Oxygen Delivery Mechanical Ventilation Fraction of Inspired Oxygen 40 12/18/24 16:00 12/18/24 16:00 12/18/24 16:00 Temperature Pulse Rate 96 87 Respiratory Rate 18 16 Blood Pressure Pulse Oximetry Oxygen Delivery Fraction of Inspired Oxygen 40 12/18/24 16:00 12/18/24 17:10 12/18/24 18:00 Temperature Pulse Rate 97 96 75 Respiratory Rate Blood Pressure 118/82 Pulse Oximetry 97 Oxygen Delivery Mechanical Ventilation Fraction of Inspired Oxygen 40 12/18/24 18:00 12/18/24 18:00 12/18/24 18:00 Temperature Pulse Rate 96 97 96 Respiratory Rate 18 17 13 Blood Pressure 106/71 Pulse Oximetry 97 Oxygen Delivery Fraction of Inspired Oxygen 12/18/24 18:00 12/18/24 19:45 12/18/24 19:51 Temperature Pulse Rate 93 96 96 Respiratory Rate 16 15 Blood Pressure 101/72 Pulse Oximetry Oxygen Delivery Fraction of Inspired Oxygen 12/18/24 19:55 12/18/24 20:00 12/18/24 20:00 Temperature Pulse Rate 96 96 9 L Respiratory Rate 16 15 15 Blood Pressure Pulse Oximetry Oxygen Delivery Fraction of Inspired Oxygen 12/18/24 20:00 12/18/24 20:00 12/18/24 20:00 Temperature Pulse Rate 98 98 Respiratory Rate 15 Blood Pressure Pulse Oximetry 97 Oxygen Delivery Mechanical Ventilation Fraction of Inspired Oxygen 40 40 12/18/24 20:00 12/18/24 20:00 12/18/24 20:25 Temperature 100.8 F H Pulse Rate 97 96 96 Respiratory Rate 14 Blood Pressure 108/67 108/67 Pulse Oximetry 97 97 Oxygen Delivery Mechanical Ventilation Fraction of Inspired Oxygen 40 12/18/24 20:40 12/18/24 21:22 12/18/24 21:40 Temperature 100.7 F H 100 F H Pulse Rate 100 Respiratory Rate Blood Pressure Pulse Oximetry Oxygen Delivery Fraction of Inspired Oxygen 12/18/24 22:00 12/18/24 22:00 12/18/24 22:00 Temperature 98.0 F Pulse Rate 53 L 106 H 106 H Respiratory Rate 10 L 14 15 Blood Pressure 101/51 L Pulse Oximetry 98 Oxygen Delivery Fraction of Inspired Oxygen 12/18/24 23:14 12/18/24 23:21 12/18/24 23:26 Temperature Pulse Rate 101 H 101 H 95 Respiratory Rate 14 14 14 Blood Pressure 75/63 L Pulse Oximetry 97 Oxygen Delivery Fraction of Inspired Oxygen 12/18/24 23:27 12/18/24 23:45 12/18/24 23:49 Temperature Pulse Rate 95 95 98 Respiratory Rate Blood Pressure 75/63 L 98/69 L Pulse Oximetry 97 Oxygen Delivery Mechanical Ventilation Fraction of Inspired Oxygen 40 12/19/24 00:00 12/19/24 00:00 12/19/24 00:00 Temperature Pulse Rate 98 95 Respiratory Rate 14 Blood Pressure Pulse Oximetry 97 Oxygen Delivery Mechanical Ventilation Fraction of Inspired Oxygen 40 40 12/19/24 00:00 12/19/24 00:00 12/19/24 00:00 Temperature 99.8 F H Pulse Rate 95 95 95 Respiratory Rate 14 13 4 L Blood Pressure 98/69 L Pulse Oximetry 96 Oxygen Delivery Fraction of Inspired Oxygen 12/19/24 00:22 12/19/24 02:00 12/19/24 02:00 Temperature Pulse Rate 95 95 95 Respiratory Rate 14 14 Blood Pressure 98/69 L Pulse Oximetry Oxygen Delivery Fraction of Inspired Oxygen 12/19/24 02:00 12/19/24 02:00 12/19/24 02:00 Temperature 100 F H Pulse Rate 95 95 96 Respiratory Rate 14 16 Blood Pressure 111/73 Pulse Oximetry 99 Oxygen Delivery Fraction of Inspired Oxygen 12/19/24 02:05 12/19/24 02:11 12/19/24 02:49 Temperature Pulse Rate 95 96 98 Respiratory Rate 16 Blood Pressure 111/73 Pulse Oximetry 97 Oxygen Delivery Mechanical Ventilation Fraction of Inspired Oxygen 40 12/19/24 04:00 12/19/24 04:00 12/19/24 04:00 Temperature Pulse Rate 95 98 Respiratory Rate 14 Blood Pressure Pulse Oximetry 99 Oxygen Delivery Mechanical Ventilation Fraction of Inspired Oxygen 40 40 12/19/24 04:00 12/19/24 04:00 12/19/24 04:00 Temperature 100.3 F H Pulse Rate 98 98 98 Respiratory Rate 15 14 14 Blood Pressure 117/78 Pulse Oximetry 96 Oxygen Delivery Fraction of Inspired Oxygen 12/19/24 04:00 12/19/24 04:57 12/19/24 05:56 Temperature Pulse Rate 96 140 H 144 H Respiratory Rate Blood Pressure 117/78 Pulse Oximetry 93 Oxygen Delivery Mechanical Ventilation Fraction of Inspired Oxygen 40 12/19/24 06:00 12/19/24 06:00 12/19/24 06:00 Temperature 101 F H Pulse Rate 144 H 144 H 144 H Respiratory Rate 16 16 Blood Pressure 124/86 124/82 Pulse Oximetry 99 Oxygen Delivery Fraction of Inspired Oxygen 12/19/24 06:00 12/19/24 07:16 12/19/24 07:42 Temperature Pulse Rate 144 H 144 H 106 H Respiratory Rate 16 16 Blood Pressure Pulse Oximetry Oxygen Delivery Fraction of Inspired Oxygen 12/19/24 07:45 12/19/24 08:00 Temperature 101.1 F H Pulse Rate 103 H 103 H Respiratory Rate 16 Blood Pressure 100/62 Pulse Oximetry 97 97 Oxygen Delivery Mechanical Ventilation Fraction of Inspired Oxygen 40 Intake/Output Intake/Output: Intake & Output 12/16/24 12/17/24 12/18/24 12/19/24 23:59 23:59 23:59 23:59 Intake Total 1520 984.6 1825.3 1219.5 Output Total 1000 1725 3400 150 Balance 520 -740.4 -1574.7 1069.5 Meds/Results Medications: Active Medications Generic Name Dose Route Start Last Admin Trade Name Freq PRN Reason Stop Dose Admin Acetaminophen 650 mg 12/14/24 20:56 12/18/24 20:40 Acetaminophen 325 Mg Tablet PO 650 mg Q4H PRN Administration Mild Pain (1-3) or Fever Albuterol 2.5 mg 12/14/24 21:44 Albuterol Sulfate Neb 2.5 Mg/3 Ml Inh INHALATION Q4HRT PRN Shortness Of Breath Or Wheezing Albuterol/Ipratropium 3 ml 12/15/24 02:00 12/19/24 07:42 Ipratropium 0.5 Mg/Albuterol Sulfate 2.5 Mg Ampul.Neb 3 Ml INHALATION 3 ml Q6HRT REJI Administration Aspirin 81 mg 12/17/24 09:00 12/19/24 08:30 Aspirin 81 Mg Chewable Tablet PO 81 mg DAILY REJI Administration Dextrose 12.5 gm 12/17/24 08:17 Dextrose 50% 25 Gm/50 Ml Syringe IV PUSH PRN PRN Hypoglycemia Protocol Empagliflozin 10 mg 12/15/24 09:00 12/19/24 08:30 Empagliflozin 10 Mg Tablet PO 10 mg DAILY REJI Administration Enoxaparin Sodium 40 mg 12/15/24 09:00 12/18/24 08:36 Enoxaparin 40 Mg/0.4 Ml Syringe SUB-Q 40 mg DAILY REJI Administration Furosemide 40 mg 12/15/24 09:00 12/19/24 09:00 Furosemide Inj 40 Mg/4 Ml Vial IV PUSH 40 mg Q12HR REJI Administration Glucagon 1 mg 12/17/24 08:17 Glucagon For Inj 1 Mg Vial IM PRN PRN Hypoglycemia Protocol Glucose 15 gm 12/17/24 08:17 Glucose Oral Gel 15 Gm Of Glucse In 37.5 Gm Tube PO PRN PRN Hypoglycemia Protocol Azithromycin 500 mg in 250 mls @ 250 mls/hr 12/15/24 22:00 12/18/24 22:25 Zithromax IVPB Infused Q24H REJI Infusion Fentanyl Citrate 2,500 mcg in 250 mls @ 10 mls/hr 12/17/24 00:05 12/19/24 06:00 Fentanyl 2,500 Mcg/Ns 250 Ml IV CONT 100 mcg/hr .Q25H REJI 10 mls/hr Titration Protocol 100 MCG/HR Midazolam HCl 100 mg in 100 mls @ 4 mls/hr 12/17/24 00:05 12/19/24 06:15 Versed 100 Mg/Ns 100 Ml IV CONT Not Given .Q25H REJI Protocol 4 MG/HR Norepinephrine Bitartrate 8 mg in 250 mls @ 9.375 mls/hr 12/17/24 01:05 12/19/24 06:00 Levophed 8 Mg/D5w 250 Ml IV CONT 5 mcg/min .Q24H REJI 9.38 mls/hr Titration Protocol 5 MCG/MIN Dextrose 1,000 mls @ 100 mls/hr 12/17/24 08:17 Dextrose 5% 1,000 Ml IVPB PRN PRN Hypoglycemia Protocol Piperacillin/Tazobactam/Dextrose 3.375 gm in 50 mls @ 100 mls/hr 12/17/24 09:00 12/19/24 08:36 Zosyn 3.375 Gm/Ns 50 Ml IVPB 100 mls/hr Q6H REJI Administration Vancomycin HCl 1,500 mg in 500 mls @ 250 mls/hr 12/19/24 09:00 12/19/24 08:33 Vancomycin 1,500 Mg/Ns 500 Ml IVPB 250 mls/hr Q24H REJI Administration Insulin Aspart 3 - 6 units 12/17/24 12:00 12/19/24 06:25 Insulin Aspart (*Bkc) 100 Units/Ml SUB-Q Not Given Q6HR REJI Protocol Multi-Ingred Cream/Lotion/Oil/Oint 1 applic 12/17/24 09:00 12/19/24 08:30 Mineral Oil/White Petrolatum Ointment EACH EYE 1 applic Q12HR REJI Administration Pantoprazole Sodium 40 mg 12/17/24 09:00 12/19/24 08:30 Pantoprazole Sodium Iv 40 Mg Vial IV PUSH 40 mg DAILY REJI Administration Rosuvastatin Calcium 10 mg 12/15/24 09:00 12/19/24 08:45 Rosuvastatin 10 Mg Tablet PO 10 mg QAM REJI Administration Sacubitril/Valsartan 1 tab 12/15/24 09:00 12/16/24 21:45 Sacubitril/Valsartan 24-26 Mg Tablet PO 1 tab Q12HR REJI Administration Sodium Chloride 10 ml 12/17/24 06:00 12/19/24 06:25 Central Line Flush IV PUSH 10 ml Q8HR REJI Administration Sodium Chloride 10 ml 12/17/24 06:00 12/19/24 06:26 Central Line Flush IV PUSH Not Given Q8HR REJI Sodium Chloride 20 ml 12/17/24 00:05 12/18/24 05:40 Central Line Flush IV PUSH 20 ml PRN PRN Administration after blood draws Radiology Results: ITS Impressions Chest CTA 12/16/24 13:43 IMPRESSION: No pulmonary embolus. No thoracic aortic dissection. Findings suggesting congestive failure, with large bilateral pleural effusions and intra-abdominal ascites. Abdomen X-Ray 12/17/24 07:07 IMPRESSION: Orogastric tube in good position and ready for immediate use. Remainder of examination is unchanged Head CT 12/17/24 07:09 Impression: No acute intracranial hemorrhage or suspicious mass effect. Chest/Abdomen/Pelvis CTA 12/17/24 07:41 IMPRESSION: No pulmonary embolus. No aortic dissection. Increasing bilateral pleural effusions with adjacent compressive atelectasis. Rim-enhancing fluid collection along the anterior abdominal wall measuring denser than simple fluid for which a perioperative seroma versus abscess (less likely) is suspected. Focused ultrasound may be performed for further evaluation. Venous Doppler Study 12/18/24 11:04 IMPRESSION: 1. No deep venous thrombosis. Chest X-Ray 12/19/24 05:54 Impression: [id number] left pleural effusion and minimal right pleural effusion. Mild to moderate pulmonary edema pattern with probable left basilar atelectasis. Support tubes, as above. Labs Labs: Laboratory Results - last 24 hr 12/18/24 12/18/24 12/18/24 12:10 12:13 17:48 WBC RBC Hgb Hct MCV MCH MCHC RDW Plt Count MPV Immature Gran % (Auto) Neut % (Auto) Lymph % (Auto) Graham % (Auto) Eos % (Auto) Baso % (Auto) Lymph # (Auto) Graham # (Auto) Eos # (Auto) Baso # (Auto) Abs Immat Gran (auto) Absolute Neuts (auto) Absolute Nucleated RBC Band Neutrophils % Nucleated RBC % Platelet Estimate Hypochromasia Anisocytosis Schistocytes PT INR APTT Puncture Site ABG pH ABG pCO2 ABG pO2 ABG PO2/FiO2 Ratio ABG HCO3 ABG O2 Saturation ABG O2 Content ABG Base Excess A-a Gradient Oxyhemoglobin Carboxyhemoglobin Methemoglobin Reduced Hemoglobin Total Hemoglobin O2 Delivery Device O2 Liters/Min Minute Volume Vent Rate Vent Mode FiO2 Tidal Volume PEEP Peak Inspir Pressure Pressure Support Sodium Potassium Chloride Carbon Dioxide Anion Gap BUN Creatinine Estim Creat Clear Calc Estimated GFR Glucose POC Capillary Glucose 122 H 141 H Calcium Phosphorus Total Bilirubin AST ALT Alkaline Phosphatase Total Protein Albumin Nasal MRSA (PCR) Detected A* 12/19/24 12/19/24 12/19/24 00:09 04:08 04:40 WBC 12.3 H RBC 4.54 L Hgb 11.4 L Hct 38.2 L MCV 84.1 MCH 25.1 L MCHC 29.8 L RDW 18.3 H Plt Count 223 MPV 9.7 Immature Gran % (Auto) 0.5 Neut % (Auto) 65.7 Lymph % (Auto) 18.3 Graham % (Auto) 12.7 H Eos % (Auto) 2.2 Baso % (Auto) 0.6 Lymph # (Auto) 2.25 Graham # (Auto) 1.6 H Eos # (Auto) 0.3 Baso # (Auto) 0.1 Abs Immat Gran (auto) 0.06 H Absolute Neuts (auto) 8.1 H Absolute Nucleated RBC 0.000 Band Neutrophils % Not Reportable Nucleated RBC % 0.0 Platelet Estimate Adequate Hypochromasia 1+ Anisocytosis 1+ Schistocytes None seen PT 15.8 H INR 1.3 APTT 36.3 Puncture Site Right radial ABG pH 7.400 ABG pCO2 55.5 H ABG pO2 104.5 H ABG PO2/FiO2 Ratio 2.61 ABG HCO3 33.6 H ABG O2 Saturation 97.7 ABG O2 Content 17.7 ABG Base Excess 7.2 A-a Gradient 116.9 Oxyhemoglobin 96.9 Carboxyhemoglobin 0.8 Methemoglobin 0.1 Reduced Hemoglobin 2.2 Total Hemoglobin 12.9 O2 Delivery Device Ventilator O2 Liters/Min Not Reportable Minute Volume Not Reportable Vent Rate 16 Vent Mode Cmv FiO2 40 Tidal Volume 420 PEEP 8 Peak Inspir Pressure Not Reportable Pressure Support Not Reportable Sodium 142 Potassium 3.7 Chloride 102 Carbon Dioxide 33 H Anion Gap 7 BUN 24 H Creatinine 0.97 Estim Creat Clear Calc 52 Estimated GFR > 60 Glucose 113 H POC Capillary Glucose 118 H Calcium 8.1 L Phosphorus 3.9 Total Bilirubin 0.9 AST 69 H ALT 53 H Alkaline Phosphatase 67 Total Protein 6.4 Albumin 3.2 L Nasal MRSA (PCR)
[2024-12-19] MEDS: MIDAZOLAM HCL (*CRX) 2 MG/2 ML VIAL 4 MG IV PUSH (10:34)
--- NOTE | 2024-12-19 12:05 | PM.PNCARD ---
Progress Note: A&P Assessment and Plan (1) Acute exacerbation of CHF (congestive heart failure): Code(s): I50.9 - Heart failure, unspecified Status: Acute Plan Acute on chronic systolic heart failure-LVEF 30-35% (was 40-45% in 08/2024); chest x-ray with pulmonary edema, BNP 5810 Elevated troponin without chest pain-0.024, 0.173 Acute hypoxemic respiratory failure secondary to CHF Severe mitral regurgitation Severe tricuspid regurgitation Severe pulmonary hypertension with PASP of 53 mm Hg History of AFib-currently in sinus rhythm Hypotension with SBP in the 70s requiring norepinephrine drip Bilateral pleural effusion left greater than right Pneumonia-on broad-spectrum antibiotics Acute hypoxic respiratory failure-currently doing Cardiac arrest status post resuscitation Plan Acute on chronic systolic heart failure could be related to severe underlying valvular heart disease. Recommend cardiac catheterization to rule ischemia as a cause when patient more stable RODERICK for evaluation of MR, TR Trend troponin to peak Continue aspirin and statin Guideline directed medical therapy as tolerated for systolic heart failure. Beta-garret held due to hypotension. Continue empagliflozin, Entresto Agree with Levophed for hypotension given pneumonia/sepsis Consider starting dobutamine this patient remains hypotensive help with IV diuresis Check daily weights, in's and out's, renal function Check and replace electrolytes as needed to keep potassium greater than 4 and magnesium greater than 2 Cardiology will continue to follow Subjective Date/time seen: 12/19/24 12:05 Interval history: No acute events Sinus rhythm Review of Systems Cardiovascular: Comments: As per HPI Respiratory: Comments: As per HPI Exam Narrative: General: Alert oriented x3, no acute distress Neck: Supple, unable to assess JVD Chest: Bilaterally clear to auscultation, no rales or rhonchi Cardiac: S1, S2 +, regular rate, regular rhythm, no murmurs or rubs Extremities: Bilateral lower extremity edema 1+, no skin rash Neurologic: Alert and oriented x3, no focal neurological deficits Objective Data Vital Signs Vital Signs: Vital Signs - 24 hr 12/18/24 13:00 12/18/24 13:05 12/18/24 13:40 Temperature Pulse Rate 96 96 96 Respiratory Rate 16 Blood Pressure 79/65 L 86/52 L Pulse Oximetry Oxygen Delivery Fraction of Inspired Oxygen 12/18/24 13:48 12/18/24 14:00 12/18/24 14:00 Temperature 37.9 C H Pulse Rate 97 98 97 Respiratory Rate 16 16 Blood Pressure 129/83 129/83 Pulse Oximetry 97 Oxygen Delivery Fraction of Inspired Oxygen 12/18/24 14:00 12/18/24 14:00 12/18/24 14:00 Temperature Pulse Rate 96 91 97 Respiratory Rate 16 13 Blood Pressure Pulse Oximetry Oxygen Delivery Fraction of Inspired Oxygen 12/18/24 14:08 12/18/24 16:00 12/18/24 16:00 Temperature Pulse Rate 96 87 96 Respiratory Rate 20 Blood Pressure Pulse Oximetry 97 98 Oxygen Delivery Mechanical Ventilation Mechanical Ventilation Fraction of Inspired Oxygen 40 40 12/18/24 16:00 12/18/24 16:00 12/18/24 16:00 Temperature Pulse Rate 96 96 Respiratory Rate 18 18 Blood Pressure 101/70 Pulse Oximetry 97 Oxygen Delivery Fraction of Inspired Oxygen 40 12/18/24 16:00 12/18/24 16:00 12/18/24 17:10 Temperature Pulse Rate 87 97 96 Respiratory Rate 16 Blood Pressure 118/82 Pulse Oximetry 97 Oxygen Delivery Mechanical Ventilation Fraction of Inspired Oxygen 40 12/18/24 18:00 12/18/24 18:00 12/18/24 18:00 Temperature Pulse Rate 75 96 97 Respiratory Rate 18 17 Blood Pressure 106/71 Pulse Oximetry 97 Oxygen Delivery Fraction of Inspired Oxygen 12/18/24 18:00 12/18/24 18:00 12/18/24 19:45 Temperature Pulse Rate 96 93 96 Respiratory Rate 13 16 Blood Pressure 101/72 Pulse Oximetry Oxygen Delivery Fraction of Inspired Oxygen 12/18/24 19:51 12/18/24 19:55 12/18/24 20:00 Temperature Pulse Rate 96 96 96 Respiratory Rate 15 16 15 Blood Pressure Pulse Oximetry Oxygen Delivery Fraction of Inspired Oxygen 12/18/24 20:00 12/18/24 20:00 12/18/24 20:00 Temperature Pulse Rate 9 L 98 98 Respiratory Rate 15 15 Blood Pressure Pulse Oximetry 97 Oxygen Delivery Mechanical Ventilation Fraction of Inspired Oxygen 40 12/18/24 20:00 12/18/24 20:00 12/18/24 20:00 Temperature 38.2 C H Pulse Rate 97 96 Respiratory Rate 14 Blood Pressure 108/67 108/67 Pulse Oximetry 97 Oxygen Delivery Fraction of Inspired Oxygen 40 12/18/24 20:25 12/18/24 20:40 12/18/24 21:22 Temperature 38.2 C H 37.7 C H Pulse Rate 96 Respiratory Rate Blood Pressure Pulse Oximetry 97 Oxygen Delivery Mechanical Ventilation Fraction of Inspired Oxygen 40 12/18/24 21:40 12/18/24 22:00 12/18/24 22:00 Temperature 36.7 C Pulse Rate 100 53 L 106 H Respiratory Rate 10 L 14 Blood Pressure 101/51 L Pulse Oximetry 98 Oxygen Delivery Fraction of Inspired Oxygen 12/18/24 22:00 12/18/24 23:14 12/18/24 23:21 Temperature Pulse Rate 106 H 101 H 101 H Respiratory Rate 15 14 14 Blood Pressure Pulse Oximetry Oxygen Delivery Fraction of Inspired Oxygen 12/18/24 23:26 12/18/24 23:27 12/18/24 23:45 Temperature Pulse Rate 95 95 95 Respiratory Rate 14 Blood Pressure 75/63 L 75/63 L 98/69 L Pulse Oximetry 97 Oxygen Delivery Fraction of Inspired Oxygen 12/18/24 23:49 12/19/24 00:00 12/19/24 00:00 Temperature Pulse Rate 98 98 95 Respiratory Rate 14 Blood Pressure Pulse Oximetry 97 97 Oxygen Delivery Mechanical Ventilation Mechanical Ventilation Fraction of Inspired Oxygen 40 40 12/19/24 00:00 12/19/24 00:00 12/19/24 00:00 Temperature 37.7 C H Pulse Rate 95 95 Respiratory Rate 14 13 Blood Pressure 98/69 L Pulse Oximetry 96 Oxygen Delivery Fraction of Inspired Oxygen 40 12/19/24 00:00 12/19/24 00:22 12/19/24 02:00 Temperature Pulse Rate 95 95 95 Respiratory Rate 4 L 14 Blood Pressure 98/69 L Pulse Oximetry Oxygen Delivery Fraction of Inspired Oxygen 12/19/24 02:00 12/19/24 02:00 12/19/24 02:00 Temperature 37.7 C H Pulse Rate 95 95 95 Respiratory Rate 14 14 Blood Pressure 111/73 Pulse Oximetry 99 Oxygen Delivery Fraction of Inspired Oxygen 12/19/24 02:00 12/19/24 02:05 12/19/24 02:11 Temperature Pulse Rate 96 95 96 Respiratory Rate 16 16 Blood Pressure 111/73 Pulse Oximetry Oxygen Delivery Fraction of Inspired Oxygen 12/19/24 02:49 12/19/24 04:00 12/19/24 04:00 Temperature Pulse Rate 98 95 98 Respiratory Rate 14 Blood Pressure Pulse Oximetry 97 99 Oxygen Delivery Mechanical Ventilation Mechanical Ventilation Fraction of Inspired Oxygen 40 40 12/19/24 04:00 12/19/24 04:00 12/19/24 04:00 Temperature 37.9 C H Pulse Rate 98 98 Respiratory Rate 15 14 Blood Pressure 117/78 Pulse Oximetry 96 Oxygen Delivery Fraction of Inspired Oxygen 40 12/19/24 04:00 12/19/24 04:00 12/19/24 04:57 Temperature Pulse Rate 98 96 140 H Respiratory Rate 14 Blood Pressure 117/78 Pulse Oximetry 93 Oxygen Delivery Mechanical Ventilation Fraction of Inspired Oxygen 40 12/19/24 05:56 12/19/24 06:00 12/19/24 06:00 Temperature 38.3 C H Pulse Rate 144 H 144 H 144 H Respiratory Rate 16 16 Blood Pressure 124/86 Pulse Oximetry 99 Oxygen Delivery Fraction of Inspired Oxygen 12/19/24 06:00 12/19/24 06:00 12/19/24 07:16 Temperature Pulse Rate 144 H 144 H 144 H Respiratory Rate 16 Blood Pressure 124/82 Pulse Oximetry Oxygen Delivery Fraction of Inspired Oxygen 12/19/24 07:30 12/19/24 07:30 12/19/24 07:40 Temperature Pulse Rate 105 H 105 H 106 H Respiratory Rate 16 16 Blood Pressure 109/68 Pulse Oximetry Oxygen Delivery Fraction of Inspired Oxygen 12/19/24 07:40 12/19/24 07:42 12/19/24 07:45 Temperature Pulse Rate 106 H 106 H 103 H Respiratory Rate 16 16 Blood Pressure Pulse Oximetry 97 Oxygen Delivery Mechanical Ventilation Fraction of Inspired Oxygen 40 12/19/24 07:45 12/19/24 08:00 12/19/24 08:00 Temperature 38.4 C H Pulse Rate 106 H 103 H Respiratory Rate 16 Blood Pressure 85/56 L 100/62 Pulse Oximetry 97 97 Oxygen Delivery Mechanical Ventilation Fraction of Inspired Oxygen 40 12/19/24 08:00 12/19/24 08:00 12/19/24 08:30 Temperature Pulse Rate 100 100 Respiratory Rate Blood Pressure 87/60 L Pulse Oximetry Oxygen Delivery Fraction of Inspired Oxygen 40 12/19/24 08:45 12/19/24 09:40 12/19/24 09:40 Temperature Pulse Rate 97 126 H 126 H Respiratory Rate 16 16 Blood Pressure 103/71 Pulse Oximetry Oxygen Delivery Fraction of Inspired Oxygen 12/19/24 10:00 12/19/24 10:00 12/19/24 10:00 Temperature Pulse Rate 142 H 142 H 143 H Respiratory Rate 20 20 Blood Pressure Pulse Oximetry Oxygen Delivery Fraction of Inspired Oxygen 12/19/24 10:16 12/19/24 10:34 12/19/24 11:50 Temperature Pulse Rate 143 H 142 H 92 Respiratory Rate Blood Pressure 129/82 Pulse Oximetry 99 Oxygen Delivery Mechanical Ventilation Fraction of Inspired Oxygen 40 Intake/Output Intake/Output: Intake & Output 12/16/24 12/17/24 12/18/24 12/19/24 23:59 23:59 23:59 23:59 Intake Total 1520 984.6 1825.3 1334.0 Output Total 1000 1725 3400 1158 Balance 520 -740.4 -1574.7 176.0 Meds/Results Medications: Active Medications Generic Name Dose Route Start Last Admin Trade Name Freq PRN Reason Stop Dose Admin Acetaminophen 650 mg 12/14/24 20:56 12/18/24 20:40 Acetaminophen 325 Mg Tablet PO 650 mg Q4H PRN Administration Mild Pain (1-3) or Fever Albuterol 2.5 mg 12/14/24 21:44 Albuterol Sulfate Neb 2.5 Mg/3 Ml Inh INHALATION Q4HRT PRN Shortness Of Breath Or Wheezing Albuterol/Ipratropium 3 ml 12/15/24 02:00 12/19/24 07:42 Ipratropium 0.5 Mg/Albuterol Sulfate 2.5 Mg Ampul.Neb 3 Ml INHALATION 3 ml Q6HRT REJI Administration Aspirin 81 mg 12/17/24 09:00 12/19/24 08:30 Aspirin 81 Mg Chewable Tablet PO 81 mg DAILY REJI Administration Dextrose 12.5 gm 12/17/24 08:17 Dextrose 50% 25 Gm/50 Ml Syringe IV PUSH PRN PRN Hypoglycemia Protocol Empagliflozin 10 mg 12/15/24 09:00 12/19/24 08:30 Empagliflozin 10 Mg Tablet PO 10 mg DAILY REJI Administration Enoxaparin Sodium 40 mg 12/15/24 09:00 12/18/24 08:36 Enoxaparin 40 Mg/0.4 Ml Syringe SUB-Q 40 mg DAILY REJI Administration Furosemide 40 mg 12/15/24 09:00 12/19/24 09:00 Furosemide Inj 40 Mg/4 Ml Vial IV PUSH 40 mg Q12HR REJI Administration Glucagon 1 mg 12/17/24 08:17 Glucagon For Inj 1 Mg Vial IM PRN PRN Hypoglycemia Protocol Glucose 15 gm 12/17/24 08:17 Glucose Oral Gel 15 Gm Of Glucse In 37.5 Gm Tube PO PRN PRN Hypoglycemia Protocol Fentanyl Citrate 2,500 mcg in 250 mls @ 7.5 mls/hr 12/17/24 00:05 12/19/24 10:00 Fentanyl 2,500 Mcg/Ns 250 Ml IV CONT 75 mcg/hr .[id number] REJI 7.5 mls/hr Titration Protocol 75 MCG/HR Midazolam HCl 100 mg in 100 mls @ 4 mls/hr 12/17/24 00:05 12/19/24 10:00 Versed 100 Mg/Ns 100 Ml IV CONT 4 mg/hr .Q25H REJI 4 mls/hr Titration Protocol 4 MG/HR Norepinephrine Bitartrate 8 mg in 250 mls @ 9.375 mls/hr 12/17/24 01:05 12/19/24 10:16 Levophed 8 Mg/D5w 250 Ml IV CONT 6 mcg/min .Q24H REJI 11.25 mls/hr Titration Protocol 5 MCG/MIN Dextrose 1,000 mls @ 100 mls/hr 12/17/24 08:17 Dextrose 5% 1,000 Ml IVPB PRN PRN Hypoglycemia Protocol Piperacillin/Tazobactam/Dextrose 3.375 gm in 50 mls @ 100 mls/hr 12/17/24 09:00 12/19/24 09:06 Zosyn 3.375 Gm/Ns 50 Ml IVPB Infused Q6H REJI Infusion Vancomycin HCl 1,500 mg in 500 mls @ 250 mls/hr 12/19/24 09:00 12/19/24 08:33 Vancomycin 1,500 Mg/Ns 500 Ml IVPB 250 mls/hr Q24H REJI Administration Insulin Aspart 3 - 6 units 12/17/24 12:00 12/19/24 06:25 Insulin Aspart (*Bkc) 100 Units/Ml SUB-Q Not Given Q6HR REJI Protocol Multi-Ingred Cream/Lotion/Oil/Oint 1 applic 12/17/24 09:00 12/19/24 08:30 Mineral Oil/White Petrolatum Ointment EACH EYE 1 applic Q12HR REJI Administration Pantoprazole Sodium 40 mg 12/17/24 09:00 12/19/24 08:30 Pantoprazole Sodium Iv 40 Mg Vial IV PUSH 40 mg DAILY REJI Administration Rosuvastatin Calcium 10 mg 12/15/24 09:00 12/19/24 08:45 Rosuvastatin 10 Mg Tablet PO 10 mg QAM REJI Administration Sacubitril/Valsartan 1 tab 12/15/24 09:00 12/16/24 21:45 Sacubitril/Valsartan 24-26 Mg Tablet PO 1 tab Q12HR REJI Administration Sodium Chloride 10 ml 12/17/24 06:00 12/19/24 06:25 Central Line Flush IV PUSH 10 ml Q8HR REJI Administration Sodium Chloride 10 ml 12/17/24 06:00 12/19/24 06:26 Central Line Flush IV PUSH Not Given Q8HR REJI Sodium Chloride 20 ml 12/17/24 00:05 12/18/24 05:40 Central Line Flush IV PUSH 20 ml PRN PRN Administration after blood draws Radiology Results: ITS Impressions Chest CTA 12/16/24 13:43 IMPRESSION: No pulmonary embolus. No thoracic aortic dissection. Findings suggesting congestive failure, with large bilateral pleural effusions and intra-abdominal ascites. Abdomen X-Ray 12/17/24 07:07 IMPRESSION: Orogastric tube in good position and ready for immediate use. Remainder of examination is unchanged Head CT 12/17/24 07:09 Impression: No acute intracranial hemorrhage or suspicious mass effect. Chest/Abdomen/Pelvis CTA 12/17/24 07:41 IMPRESSION: No pulmonary embolus. No aortic dissection. Increasing bilateral pleural effusions with adjacent compressive atelectasis. Rim-enhancing fluid collection along the anterior abdominal wall measuring denser than simple fluid for which a perioperative seroma versus abscess (less likely) is suspected. Focused ultrasound may be performed for further evaluation. Venous Doppler Study 12/18/24 11:04 IMPRESSION: 1. No deep venous thrombosis. Chest X-Ray 12/19/24 05:54 Impression: [id number] left pleural effusion and minimal right pleural effusion. Mild to moderate pulmonary edema pattern with probable left basilar atelectasis. Support tubes, as above. Labs Labs: Laboratory Results - last 24 hr 12/18/24 12/18/24 12/18/24 12:10 12:13 17:48 WBC RBC Hgb Hct MCV MCH MCHC RDW Plt Count MPV Immature Gran % (Auto) Neut % (Auto) Lymph % (Auto) [place] % (Auto) Eos % (Auto) Baso % (Auto) Lymph # (Auto) [place] # (Auto) Eos # (Auto) Baso # (Auto) Abs Immat Gran (auto) Absolute Neuts (auto) Absolute Nucleated RBC Band Neutrophils % Nucleated RBC % Platelet Estimate Hypochromasia Anisocytosis Schistocytes PT INR APTT Puncture Site ABG pH ABG pCO2 ABG pO2 ABG PO2/FiO2 Ratio ABG HCO3 ABG O2 Saturation ABG O2 Content ABG Base Excess A-a Gradient Oxyhemoglobin Carboxyhemoglobin Methemoglobin Reduced Hemoglobin Total Hemoglobin O2 Delivery Device O2 Liters/Min Minute Volume Vent Rate Vent Mode FiO2 Tidal Volume PEEP Peak Inspir Pressure Pressure Support Sodium Potassium Chloride Carbon Dioxide Anion Gap BUN Creatinine Estim Creat Clear Calc Estimated GFR Glucose POC Capillary Glucose 122 H 141 H Calcium Phosphorus Total Bilirubin AST ALT Alkaline Phosphatase Total Protein Albumin Pleural pH Nasal MRSA (PCR) Detected A* 12/19/24 12/19/24 12/19/24 00:09 04:08 04:40 WBC 12.3 H RBC 4.54 L Hgb 11.4 L Hct 38.2 L MCV 84.1 MCH 25.1 L MCHC 29.8 L RDW 18.3 H Plt Count 223 MPV 9.7 Immature Gran % (Auto) 0.5 Neut % (Auto) 65.7 Lymph % (Auto) 18.3 [place] % (Auto) 12.7 H Eos % (Auto) 2.2 Baso % (Auto) 0.6 Lymph # (Auto) 2.25 [place] # (Auto) 1.6 H Eos # (Auto) 0.3 Baso # (Auto) 0.1 Abs Immat Gran (auto) 0.06 H Absolute Neuts (auto) 8.1 H Absolute Nucleated RBC 0.000 Band Neutrophils % Not Reportable Nucleated RBC % 0.0 Platelet Estimate Adequate Hypochromasia 1+ Anisocytosis 1+ Schistocytes None seen PT 15.8 H INR 1.3 APTT 36.3 Puncture Site Right radial ABG pH 7.400 ABG pCO2 55.5 H ABG pO2 104.5 H ABG PO2/FiO2 Ratio 2.61 ABG HCO3 33.6 H ABG O2 Saturation 97.7 ABG O2 Content 17.7 ABG Base Excess 7.2 A-a Gradient 116.9 Oxyhemoglobin 96.9 Carboxyhemoglobin 0.8 Methemoglobin 0.1 Reduced Hemoglobin 2.2 Total Hemoglobin 12.9 O2 Delivery Device Ventilator O2 Liters/Min Not Reportable Minute Volume Not Reportable Vent Rate 16 Vent Mode Cmv FiO2 40 Tidal Volume 420 PEEP 8 Peak Inspir Pressure Not Reportable Pressure Support Not Reportable Sodium 142 Potassium 3.7 Chloride 102 Carbon Dioxide 33 H Anion Gap 7 BUN 24 H Creatinine 0.97 Estim Creat Clear Calc 52 Estimated GFR > 60 Glucose 113 H POC Capillary Glucose 118 H Calcium 8.1 L Phosphorus 3.9 Total Bilirubin 0.9 AST 69 H ALT 53 H Alkaline Phosphatase 67 Total Protein 6.4 Albumin 3.2 L Pleural pH Nasal MRSA (PCR) 12/19/24 12/19/24 10:44 11:52 WBC RBC Hgb Hct MCV MCH MCHC RDW Plt Count MPV Immature Gran % (Auto) Neut % (Auto) Lymph % (Auto) [place] % (Auto) Eos % (Auto) Baso % (Auto) Lymph # (Auto) [place] # (Auto) Eos # (Auto) Baso # (Auto) Abs Immat Gran (auto) Absolute Neuts (auto) Absolute Nucleated RBC Band Neutrophils % Nucleated RBC % Platelet Estimate Hypochromasia Anisocytosis Schistocytes PT INR APTT Puncture Site ABG pH ABG pCO2 ABG pO2 ABG PO2/FiO2 Ratio ABG HCO3 ABG O2 Saturation ABG O2 Content ABG Base Excess A-a Gradient Oxyhemoglobin Carboxyhemoglobin Methemoglobin Reduced Hemoglobin Total Hemoglobin O2 Delivery Device O2 Liters/Min Minute Volume Vent Rate Vent Mode FiO2 Tidal Volume PEEP Peak Inspir Pressure Pressure Support Sodium Potassium Chloride Carbon Dioxide Anion Gap BUN Creatinine Estim Creat Clear Calc Estimated GFR Glucose POC Capillary Glucose 106 H Calcium Phosphorus Total Bilirubin AST ALT Alkaline Phosphatase Total Protein Albumin Pleural pH 7.466 Nasal MRSA (PCR)
[2024-12-19 12:50] LABS: Appearance Pleural Fluid Hazy (Clear); Color Pleural Fluid Yellow (Colorless); Lymphocytes Pleural Fluid 78 %; Neutrophils Pleural Fluid 17 % (0-25); Nucleated Cell Pleural Fluid 441 /uL (0-1000)
[2024-12-19 12:51] LABS: Macrophages Pleural Fluid 4 %; Monocytes Pleural Fluid 1 %
[2024-12-19] MEDS: PIPERACILLIN/TAZOBACTAM SOD 3.375 GM in SODIUM CHLORIDE 0.9% IV 50 ML 100 ML IVPB ×2 (14:35→21:07)
--- NOTE | 2024-12-19 17:14 | PM.IMPN ---
Progress Note: A&P Assessment and Plan (1) Acute hypoxic respiratory failure: Code(s): J96.01 - Acute respiratory failure with hypoxia Status: Acute Assessment and Plan: Acute Respiratory failure secondary to congestive heart failure leading to pleural effusions and pulmonary edema. Patient also has bilateral atelectasis with questionable pneumonia 12/16 intubated and placed on mechanical ventilation CTA chest 12/17 IMPRESSION: No pulmonary embolus. No aortic dissection. Increasing bilateral pleural effusions with adjacent compressive atelectasis. Rim-enhancing fluid collection along the anterior abdominal wall measuring denser than simple fluid for which a perioperative seroma versus abscess (less likely) is suspected. Focused ultrasound may be performed for further evaluation. Continue full mechanical ventilation support to prevent hypoxemia/hypercarbia and end organ damage. ABG reviewed and continue CMV at tidal volume 420 rate 16 FiO2 40% and peep of 8 Continue Lasix for diuresis Consulted IR for thoracentesis starting with the left side. Plan for 12/18 Bronchodilators procalcitonin level was 0.4. Continue Zosyn azithromycin and add vancomycin due to positive MRSA on nasal screen Blood cultures were done on 12/14 and 12/16 for and have been negative Check sputum culture (2) Shock: Code(s): R57.9 - Shock, unspecified Status: Acute Assessment and Plan: Multifactorial. Likely secondary combination of sedation, questionable sepsis,? Cardiogenic Continue Levophed titration to maintain mean arterial pressure. (3) Acute exacerbation of CHF (congestive heart failure): Qualifiers: Heart failure type: combined systolic and diastolic Qualified Code(s): I50.43 - Acute on chronic combined systolic (congestive) and diastolic (congestive) heart failure Code(s): I50.9 - Heart failure, unspecified Status: Acute Assessment and Plan: Patient was recently diagnosed with congestive heart failure with EF of 40-45% and diastolic dysfunction. He was discharged on multiple medications but unfortunately was not taking any and was taking low-dose Lasix. Now presented with congestive heart failure with lower extremity edema pull effusions which has been gradually getting worse now leading to intubation and mechanical ventilation I will hold Entresto beta-garret due to hypotension Continue Levophed for ionotropic and blood pressure support Continue Lasix for diuresis Echo Summary 1. Left ventricular chamber dimension is moderately enlarged. 2. Left ventricular systolic function is moderately reduced, estimated at 30-35. 3. There is mildly increased left ventricular wall thickness. 4. The left ventricular diastolic function is abnormal. 5. Right ventricular chamber dimension is mildly enlarged. 6. Right ventricular systolic function is reduced. 7. Left atrial chamber dimension is mildly enlarged. 8. Right atrial chamber dimension is mildly enlarged. 9. There is severe mitral valve regurgitation. 10. There is severe tricuspid valve regurgitation. 11. Moderate pulmonary hypertension, estimated pulmonary arterial systolic pressure is 53 mmHg. (4) Elevated troponin: Code(s): R79.89 - Other specified abnormal findings of blood chemistry Status: Acute Assessment and Plan: Chronically elevated troponin levels. Will discuss with Cardiology regarding workup for ischemic coronary disease Currently on aspirin Patient was not reporting any chest pain during the hospitalization prior to intubation (5) Atrial fibrillation: Qualifiers: Atrial fibrillation type: unspecified Qualified Code(s): I48.91 - Unspecified atrial fibrillation Code(s): I48.91 - Unspecified atrial fibrillation Status: Chronic Assessment and Plan: History of AFib in the chart but none of the past EKGs have shown AFib and also currently in sinus rhythm (6) Hyperlipidemia: Code(s): E78.5 - Hyperlipidemia, unspecified Status: Chronic Assessment and Plan: Continue statin (7) Bilateral pleural effusion: Code(s): J90 - Pleural effusion, not elsewhere classified Status: Acute Assessment and Plan: See above (8) Pneumonia: Qualifiers: Laterality: bilateral Lung location: lower lobe of lung Pneumonia type: due to unspecified organism Qualified Code(s): J18.9 - Pneumonia, unspecified organism Code(s): J18.9 - Pneumonia, unspecified organism Status: Acute Assessment and Plan: See above (9) Substance abuse: Code(s): F19.10 - Other psychoactive substance abuse, uncomplicated Status: Chronic Assessment and Plan: Long History of drug abuse including cocaine could be the etiology of his congestive heart failure. (10) Abdominal fluid collection: Code(s): R18.8 - Other ascites Status: Acute Assessment and Plan: CT scan of the abdomen shows Rim-enhancing fluid collection along the anterior abdominal wall measuring denser than simple fluid for which a perioperative seroma versus abscess (less likely) is suspected. Focused ultrasound may be performed for further evaluation.. Patient had abdominal surgery for umbilical hernia and small-bowel obstruction Patient was evaluated by General surgery and surgeon feels that this is likely a seroma. Ultrasound-guided drainage ordered and plan for tomorrow Continue antibiotics as above (11) Lower extremity edema: Code(s): R60.0 - Localized edema Status: Acute Assessment and Plan: Likely secondary to congestive heart failure. Will obtain venous Dopplers to rule out DVT as edema is asymmetric Plan patient presented with dyspnea was found to have b/l pleural effusion, and patient was diuresed with IV lasix 40MG BID however patient went to respiratory failure and patient was intubated, cardiac echo showed moderately reduced left ventricular systolic dysfunction, seen by the internal audit senior manager suspect patient has acute on chronic systolic heart failure. recommended to continue to diuresed the patient. today patient had thoracentesis, and 1000cc yellow fluid was collected, ph of the fluid is 7.44 and pleural Nuc cells are 441 within normal limits suggesting transudate from CHF, patient is being diuresed, patient is seen by the fire pot operator. DVT prophylaxis -Lovenox Stress ulcer prophylaxis -PPI Nutrition -continue Tube Feeds Code Status - Full Code Subjective Date/time seen: 12/19/24 17:14 Interval history: 74-year-old male patient with past medical history of HF, EMR documented AFib, substance abuse, HTN, HLP, sleep apnea, vit-D deficiency and alcoholic cirrhosis of liver with complaints of having edema to the bilateral lower extremities and dyspnea on exertion for the past couple of weeks. 12/16/2024 Patient sitting comfortably in bed at time of examination. Rapid response called last night for sudden diaphoresis and dyspnea. D-dimer 3.15, CTA ordered and pending. Lactic acid initially elevated ,4.4, but subsequently decreased to 1.4. Trop (-). Repeat BCs pending. EKG sinus, rbbb (seen previously on 12/14). Pt seen in am, denies any chest pain, SOB, n/v, or abdominal pain. States he just felt very dyspneic and sweaty last night, but feels fine right now. Will continue to monitor CTA/blood work. patient presented with dyspnea was found to have b/l pleural effusion, and patient was diuresed with IV lasix 40MG BID however patient went to respiratory failure and patient was intubated, cardiac echo showed moderately reduced left ventricular systolic dysfunction, seen by the internal audit senior manager suspect patient has acute on chronic systolic heart failure. recommended to continue to diuresed the patient. today patient had thoracentesis, and 1000cc yellow fluid was collected, ph of the fluid is 7.44 and pleural Nuc cells are 441 within normal limits suggesting transudate from CHF, patient is being diuresed, patient is seen by the fire pot operator. Review of Systems Review of Systems: ROS unobtainable: Yes unobtainable due to endotracheal tube Exam Narrative: Patient is comfortable, NAD HEENT: ET tube in place LUNGS:CTA HEART: RR S1S2 ABD: BS+, Soft and nontender Lower extremities: no edema SKIN: nonjaundiced Neuro: Intubated and sedated Objective Data Vital Signs Vital Signs: Vital Signs - 24 hr 12/18/24 18:00 12/18/24 18:00 12/18/24 18:00 Temperature Pulse Rate 75 96 97 Respiratory Rate 18 17 Blood Pressure 106/71 Pulse Oximetry 97 Oxygen Delivery Fraction of Inspired Oxygen 12/18/24 18:00 12/18/24 18:00 12/18/24 19:45 Temperature Pulse Rate 96 93 96 Respiratory Rate 13 16 Blood Pressure 101/72 Pulse Oximetry Oxygen Delivery Fraction of Inspired Oxygen 12/18/24 19:51 12/18/24 19:55 12/18/24 20:00 Temperature Pulse Rate 96 96 96 Respiratory Rate 15 16 15 Blood Pressure Pulse Oximetry Oxygen Delivery Fraction of Inspired Oxygen 12/18/24 20:00 12/18/24 20:00 12/18/24 20:00 Temperature Pulse Rate 9 L 98 98 Respiratory Rate 15 15 Blood Pressure Pulse Oximetry 97 Oxygen Delivery Mechanical Ventilation Fraction of Inspired Oxygen 40 12/18/24 20:00 12/18/24 20:00 12/18/24 20:00 Temperature 38.2 C H Pulse Rate 97 96 Respiratory Rate 14 Blood Pressure 108/67 108/67 Pulse Oximetry 97 Oxygen Delivery Fraction of Inspired Oxygen 40 12/18/24 20:25 12/18/24 20:40 12/18/24 21:22 Temperature 38.2 C H 37.7 C H Pulse Rate 96 Respiratory Rate Blood Pressure Pulse Oximetry 97 Oxygen Delivery Mechanical Ventilation Fraction of Inspired Oxygen 40 12/18/24 21:40 12/18/24 22:00 12/18/24 22:00 Temperature 36.7 C Pulse Rate 100 53 L 106 H Respiratory Rate 10 L 14 Blood Pressure 101/51 L Pulse Oximetry 98 Oxygen Delivery Fraction of Inspired Oxygen 12/18/24 22:00 12/18/24 23:14 12/18/24 23:21 Temperature Pulse Rate 106 H 101 H 101 H Respiratory Rate 15 14 14 Blood Pressure Pulse Oximetry Oxygen Delivery Fraction of Inspired Oxygen 12/18/24 23:26 12/18/24 23:27 12/18/24 23:45 Temperature Pulse Rate 95 95 95 Respiratory Rate 14 Blood Pressure 75/63 L 75/63 L 98/69 L Pulse Oximetry 97 Oxygen Delivery Fraction of Inspired Oxygen 12/18/24 23:49 12/19/24 00:00 12/19/24 00:00 Temperature Pulse Rate 98 98 95 Respiratory Rate 14 Blood Pressure Pulse Oximetry 97 97 Oxygen Delivery Mechanical Ventilation Mechanical Ventilation Fraction of Inspired Oxygen 40 40 12/19/24 00:00 12/19/24 00:00 12/19/24 00:00 Temperature 37.7 C H Pulse Rate 95 95 Respiratory Rate 14 13 Blood Pressure 98/69 L Pulse Oximetry 96 Oxygen Delivery Fraction of Inspired Oxygen 40 12/19/24 00:00 12/19/24 00:22 12/19/24 02:00 Temperature Pulse Rate 95 95 95 Respiratory Rate 4 L 14 Blood Pressure 98/69 L Pulse Oximetry Oxygen Delivery Fraction of Inspired Oxygen 12/19/24 02:00 12/19/24 02:00 12/19/24 02:00 Temperature 37.7 C H Pulse Rate 95 95 95 Respiratory Rate 14 14 Blood Pressure 111/73 Pulse Oximetry 99 Oxygen Delivery Fraction of Inspired Oxygen 12/19/24 02:00 12/19/24 02:05 12/19/24 02:11 Temperature Pulse Rate 96 95 96 Respiratory Rate 16 16 Blood Pressure 111/73 Pulse Oximetry Oxygen Delivery Fraction of Inspired Oxygen 12/19/24 02:49 12/19/24 04:00 12/19/24 04:00 Temperature Pulse Rate 98 95 98 Respiratory Rate 14 Blood Pressure Pulse Oximetry 97 99 Oxygen Delivery Mechanical Ventilation Mechanical Ventilation Fraction of Inspired Oxygen 40 40 12/19/24 04:00 12/19/24 04:00 12/19/24 04:00 Temperature 37.9 C H Pulse Rate 98 98 Respiratory Rate 15 14 Blood Pressure 117/78 Pulse Oximetry 96 Oxygen Delivery Fraction of Inspired Oxygen 40 12/19/24 04:00 12/19/24 04:00 12/19/24 04:57 Temperature Pulse Rate 98 96 140 H Respiratory Rate 14 Blood Pressure 117/78 Pulse Oximetry 93 Oxygen Delivery Mechanical Ventilation Fraction of Inspired Oxygen 40 12/19/24 05:56 12/19/24 06:00 12/19/24 06:00 Temperature 38.3 C H Pulse Rate 144 H 144 H 144 H Respiratory Rate 16 16 Blood Pressure 124/86 Pulse Oximetry 99 Oxygen Delivery Fraction of Inspired Oxygen 12/19/24 06:00 12/19/24 06:00 12/19/24 07:16 Temperature Pulse Rate 144 H 144 H 144 H Respiratory Rate 16 Blood Pressure 124/82 Pulse Oximetry Oxygen Delivery Fraction of Inspired Oxygen 12/19/24 07:30 12/19/24 07:30 12/19/24 07:40 Temperature Pulse Rate 105 H 105 H 106 H Respiratory Rate 16 16 Blood Pressure 109/68 Pulse Oximetry Oxygen Delivery Fraction of Inspired Oxygen 12/19/24 07:40 12/19/24 07:42 12/19/24 07:45 Temperature Pulse Rate 106 H 106 H 103 H Respiratory Rate 16 16 Blood Pressure Pulse Oximetry 97 Oxygen Delivery Mechanical Ventilation Fraction of Inspired Oxygen 40 12/19/24 07:45 12/19/24 08:00 12/19/24 08:00 Temperature 38.4 C H Pulse Rate 106 H 103 H Respiratory Rate 16 Blood Pressure 85/56 L 100/62 Pulse Oximetry 97 97 Oxygen Delivery Mechanical Ventilation Fraction of Inspired Oxygen 40 12/19/24 08:00 12/19/24 08:00 12/19/24 08:30 Temperature Pulse Rate 100 100 Respiratory Rate Blood Pressure 87/60 L Pulse Oximetry Oxygen Delivery Fraction of Inspired Oxygen 40 12/19/24 08:45 12/19/24 09:40 12/19/24 09:40 Temperature Pulse Rate 97 126 H 126 H Respiratory Rate 16 16 Blood Pressure 103/71 Pulse Oximetry Oxygen Delivery Fraction of Inspired Oxygen 12/19/24 10:00 12/19/24 10:00 12/19/24 10:00 Temperature Pulse Rate 142 H 142 H 143 H Respiratory Rate 20 20 Blood Pressure Pulse Oximetry Oxygen Delivery Fraction of Inspired Oxygen 12/19/24 10:00 12/19/24 10:16 12/19/24 10:34 Temperature 38.2 C H Pulse Rate 143 H 143 H 142 H Respiratory Rate 16 Blood Pressure 129/82 129/82 Pulse Oximetry 95 Oxygen Delivery Fraction of Inspired Oxygen 12/19/24 11:50 12/19/24 12:00 12/19/24 12:00 Temperature Pulse Rate 92 92 92 Respiratory Rate 16 Blood Pressure 102/72 Pulse Oximetry 99 Oxygen Delivery Mechanical Ventilation Fraction of Inspired Oxygen 40 12/19/24 12:00 12/19/24 12:00 12/19/24 12:00 Temperature Pulse Rate 92 92 Respiratory Rate 16 Blood Pressure Pulse Oximetry 99 Oxygen Delivery Mechanical Ventilation Fraction of Inspired Oxygen 40 12/19/24 12:00 12/19/24 12:00 12/19/24 12:15 Temperature 38.0 C H Pulse Rate 92 93 Respiratory Rate 16 Blood Pressure 102/72 91/61 L Pulse Oximetry 99 Oxygen Delivery Fraction of Inspired Oxygen 40 12/19/24 13:12 12/19/24 13:59 12/19/24 14:00 Temperature Pulse Rate 93 93 93 Respiratory Rate 16 16 Blood Pressure 98/69 L Pulse Oximetry Oxygen Delivery Fraction of Inspired Oxygen 12/19/24 14:00 12/19/24 14:00 12/19/24 14:00 Temperature Pulse Rate 93 93 93 Respiratory Rate 16 16 Blood Pressure Pulse Oximetry Oxygen Delivery Fraction of Inspired Oxygen 12/19/24 14:00 12/19/24 14:03 12/19/24 14:30 Temperature 37.8 C H Pulse Rate 93 93 93 Respiratory Rate 16 Blood Pressure 98/69 L 108/70 Pulse Oximetry 99 99 Oxygen Delivery Mechanical Ventilation Fraction of Inspired Oxygen 40 12/19/24 14:45 12/19/24 16:00 12/19/24 16:00 Temperature Pulse Rate 93 93 93 Respiratory Rate 16 Blood Pressure 99/69 L 98/70 L Pulse Oximetry Oxygen Delivery Fraction of Inspired Oxygen 12/19/24 16:00 12/19/24 16:00 12/19/24 16:00 Temperature Pulse Rate 93 Respiratory Rate 16 Blood Pressure Pulse Oximetry Oxygen Delivery Mechanical Ventilation Fraction of Inspired Oxygen 40 40 12/19/24 16:00 12/19/24 16:00 Temperature 37.7 C H Pulse Rate 94 94 Respiratory Rate 16 Blood Pressure 94/64 L Pulse Oximetry 99 Oxygen Delivery Fraction of Inspired Oxygen Intake/Output Intake/Output: Intake & Output 12/16/24 12/17/24 12/18/24 12/19/24 23:59 23:59 23:59 23:59 Intake Total 1520 984.6 1825.3 1999.4 Output Total 1000 1725 3400 1158 Balance 520 -740.4 -1574.7 842.4 Meds/Results Medications: Active Medications Generic Name Dose Route Start Last Admin Trade Name Freq PRN Reason Stop Dose Admin Acetaminophen 650 mg 12/14/24 20:56 12/18/24 20:40 Acetaminophen 325 Mg Tablet PO 650 mg Q4H PRN Administration Mild Pain (1-3) or Fever Albuterol 2.5 mg 12/14/24 21:44 Albuterol Sulfate Neb 2.5 Mg/3 Ml Inh INHALATION Q4HRT PRN Shortness Of Breath Or Wheezing Albuterol/Ipratropium 3 ml 12/15/24 02:00 12/19/24 13:58 Ipratropium 0.5 Mg/Albuterol Sulfate 2.5 Mg Ampul.Neb 3 Ml INHALATION 3 ml Q6HRT REJI Administration Aspirin 81 mg 12/17/24 09:00 12/19/24 08:30 Aspirin 81 Mg Chewable Tablet PO 81 mg DAILY REJI Administration Dextrose 12.5 gm 12/17/24 08:17 Dextrose 50% 25 Gm/50 Ml Syringe IV PUSH PRN PRN Hypoglycemia Protocol Empagliflozin 10 mg 12/15/24 09:00 12/19/24 08:30 Empagliflozin 10 Mg Tablet PO 10 mg DAILY REJI Administration Enoxaparin Sodium 40 mg 12/15/24 09:00 12/18/24 08:36 Enoxaparin 40 Mg/0.4 Ml Syringe SUB-Q 40 mg DAILY REJI Administration Furosemide 40 mg 12/15/24 09:00 12/19/24 09:00 Furosemide Inj 40 Mg/4 Ml Vial IV PUSH 40 mg Q12HR REJI Administration Glucagon 1 mg 12/17/24 08:17 Glucagon For Inj 1 Mg Vial IM PRN PRN Hypoglycemia Protocol Glucose 15 gm 12/17/24 08:17 Glucose Oral Gel 15 Gm Of Glucse In 37.5 Gm Tube PO PRN PRN Hypoglycemia Protocol Fentanyl Citrate 2,500 mcg in 250 mls @ 5 mls/hr 12/17/24 00:05 12/19/24 16:00 Fentanyl 2,500 Mcg/Ns 250 Ml IV CONT 50 mcg/hr .Q50H REJI 5 mls/hr Titration Protocol 50 MCG/HR Midazolam HCl 100 mg in 100 mls @ 2 mls/hr 12/17/24 00:05 12/19/24 16:00 Versed 100 Mg/Ns 100 Ml IV CONT 2 mg/hr .Q50H REJI 2 mls/hr Titration Protocol 2 MG/HR Norepinephrine Bitartrate 8 mg in 250 mls @ 9.375 mls/hr 12/17/24 01:05 12/19/24 16:00 Levophed 8 Mg/D5w 250 Ml IV CONT 4 mcg/min .Q24H REJI 7.5 mls/hr Titration Protocol 5 MCG/MIN Dextrose 1,000 mls @ 100 mls/hr 12/17/24 08:17 Dextrose 5% 1,000 Ml IVPB PRN PRN Hypoglycemia Protocol Vancomycin HCl 1,500 mg in 500 mls @ 250 mls/hr 12/19/24 09:00 12/19/24 10:33 Vancomycin 1,500 Mg/Ns 500 Ml IVPB Infused Q24H REJI Infusion Piperacillin Sod/Tazobactam 50 mls @ 100 mls/hr 12/19/24 15:00 12/19/24 15:05 Sod 3.375 gm/ Sodium Chloride IVPB Infused Q6H REJI Infusion Insulin Aspart 3 - 6 units 12/17/24 12:00 12/19/24 12:25 Insulin Aspart (*Bkc) 100 Units/Ml SUB-Q Not Given Q6HR REJI Protocol Multi-Ingred Cream/Lotion/Oil/Oint 1 applic 12/17/24 09:00 12/19/24 08:30 Mineral Oil/White Petrolatum Ointment EACH EYE 1 applic Q12HR REJI Administration Pantoprazole Sodium 40 mg 12/17/24 09:00 12/19/24 08:30 Pantoprazole Sodium Iv 40 Mg Vial IV PUSH 40 mg DAILY REJI Administration Rosuvastatin Calcium 10 mg 12/15/24 09:00 12/19/24 08:45 Rosuvastatin 10 Mg Tablet PO 10 mg QAM REJI Administration Sacubitril/Valsartan 1 tab 12/15/24 09:00 12/16/24 21:45 Sacubitril/Valsartan 24-26 Mg Tablet PO 1 tab Q12HR REJI Administration Sodium Chloride 10 ml 12/17/24 06:00 12/19/24 13:47 Central Line Flush IV PUSH 10 ml Q8HR REJI Administration Sodium Chloride 20 ml 12/17/24 00:05 12/18/24 05:40 Central Line Flush IV PUSH 20 ml PRN PRN Administration after blood draws Radiology Results: ITS Impressions Chest CTA 12/16/24 13:43 IMPRESSION: No pulmonary embolus. No thoracic aortic dissection. Findings suggesting congestive failure, with large bilateral pleural effusions and intra-abdominal ascites. Abdomen X-Ray 12/17/24 07:07 IMPRESSION: Orogastric tube in good position and ready for immediate use. Remainder of examination is unchanged Head CT 12/17/24 07:09 Impression: No acute intracranial hemorrhage or suspicious mass effect. Chest/Abdomen/Pelvis CTA 12/17/24 07:41 IMPRESSION: No pulmonary embolus. No aortic dissection. Increasing bilateral pleural effusions with adjacent compressive atelectasis. Rim-enhancing fluid collection along the anterior abdominal wall measuring denser than simple fluid for which a perioperative seroma versus abscess (less likely) is suspected. Focused ultrasound may be performed for further evaluation. Venous Doppler Study 12/18/24 11:04 IMPRESSION: 1. No deep venous thrombosis. Chest X-Ray 12/19/24 14:15 Impression: Decreased left pleural effusion following thoracentesis. Mild bibasilar pulmonary edema. No pneumothorax. Stable support tubes. Thoracentesis Ultrasound 12/19/24 16:47 IMPRESSION: 1. Successful ultrasound-guided thoracentesis yielding 1000 mL of yellow fluid. Abscess Drainage Ultrasound 12/19/24 16:49 IMPRESSION: 1. Successful ultrasound-guided percutaneous abscess drain placement into a 6.7 x 1.7 x 6.7 cm complex subcutaneous fluid collection situated between the umbilicus and the ventral hernia mesh repair. Sonographic appearance of the fluid collection and the correlation and clarity of the aspirated fluid would favor evolving hematoma over abscess but would correlate with results from the Gram stain and cultures. The catheter will be managed by Dr. Villasenor. Labs Labs: Laboratory Results - last 24 hr 12/18/24 12/19/24 12/19/24 17:48 00:09 04:08 WBC RBC Hgb Hct MCV MCH MCHC RDW Plt Count MPV Immature Gran % (Auto) Neut % (Auto) Lymph % (Auto) [place] % (Auto) Eos % (Auto) Baso % (Auto) Lymph # (Auto) [place] # (Auto) Eos # (Auto) Baso # (Auto) Abs Immat Gran (auto) Absolute Neuts (auto) Absolute Nucleated RBC Band Neutrophils % Nucleated RBC % Platelet Estimate Hypochromasia Anisocytosis Schistocytes PT INR APTT Puncture Site Right radial ABG pH 7.400 ABG pCO2 55.5 H ABG pO2 104.5 H ABG PO2/FiO2 Ratio 2.61 ABG HCO3 33.6 H ABG O2 Saturation 97.7 ABG O2 Content 17.7 ABG Base Excess 7.2 A-a Gradient 116.9 Oxyhemoglobin 96.9 Carboxyhemoglobin 0.8 Methemoglobin 0.1 Reduced Hemoglobin 2.2 Total Hemoglobin 12.9 O2 Delivery Device Ventilator O2 Liters/Min Not Reportable Minute Volume Not Reportable Vent Rate 16 Vent Mode Cmv FiO2 40 Tidal Volume 420 PEEP 8 Peak Inspir Pressure Not Reportable Pressure Support Not Reportable Sodium Potassium Chloride Carbon Dioxide Anion Gap BUN Creatinine Estim Creat Clear Calc Estimated GFR Glucose POC Capillary Glucose 141 H 118 H Calcium Phosphorus Total Bilirubin AST ALT Alkaline Phosphatase Total Protein Albumin Pleural Fluid Source Pleural Color Pleural Appearance Pleural pH Pleural RBC Pleural Nuc Cells Pleural Neutrophils Pleural Lymphocytes Pleural Monocytes Pleural Macrophages 12/19/24 12/19/24 12/19/24 04:40 10:44 11:52 WBC 12.3 H RBC 4.54 L Hgb 11.4 L Hct 38.2 L MCV 84.1 MCH 25.1 L MCHC 29.8 L RDW 18.3 H Plt Count 223 MPV 9.7 Immature Gran % (Auto) 0.5 Neut % (Auto) 65.7 Lymph % (Auto) 18.3 [place] % (Auto) 12.7 H Eos % (Auto) 2.2 Baso % (Auto) 0.6 Lymph # (Auto) 2.25 [place] # (Auto) 1.6 H Eos # (Auto) 0.3 Baso # (Auto) 0.1 Abs Immat Gran (auto) 0.06 H Absolute Neuts (auto) 8.1 H Absolute Nucleated RBC 0.000 Band Neutrophils % Not Reportable Nucleated RBC % 0.0 Platelet Estimate Adequate Hypochromasia 1+ Anisocytosis 1+ Schistocytes None seen PT 15.8 H INR 1.3 APTT 36.3 Puncture Site ABG pH ABG pCO2 ABG pO2 ABG PO2/FiO2 Ratio ABG HCO3 ABG O2 Saturation ABG O2 Content ABG Base Excess A-a Gradient Oxyhemoglobin Carboxyhemoglobin Methemoglobin Reduced Hemoglobin Total Hemoglobin O2 Delivery Device O2 Liters/Min Minute Volume Vent Rate Vent Mode FiO2 Tidal Volume PEEP Peak Inspir Pressure Pressure Support Sodium 142 Potassium 3.7 Chloride 102 Carbon Dioxide 33 H Anion Gap 7 BUN 24 H Creatinine 0.97 Estim Creat Clear Calc 52 Estimated GFR > 60 Glucose 113 H POC Capillary Glucose 106 H Calcium 8.1 L Phosphorus 3.9 Total Bilirubin 0.9 AST 69 H ALT 53 H Alkaline Phosphatase 67 Total Protein 6.4 Albumin 3.2 L Pleural Fluid Source Pleural fluid Pleural Color Yellow Pleural Appearance Hazy Pleural pH 7.466 Pleural RBC < 2000 Pleural Nuc Cells 441 Pleural Neutrophils 17 Pleural Lymphocytes 78 Pleural Monocytes 1 Pleural Macrophages 4 12/19/24 17:04 WBC RBC Hgb Hct MCV MCH MCHC RDW Plt Count MPV Immature Gran % (Auto) Neut % (Auto) Lymph % (Auto) [place] % (Auto) Eos % (Auto) Baso % (Auto) Lymph # (Auto) [place] # (Auto) Eos # (Auto) Baso # (Auto) Abs Immat Gran (auto) Absolute Neuts (auto) Absolute Nucleated RBC Band Neutrophils % Nucleated RBC % Platelet Estimate Hypochromasia Anisocytosis Schistocytes PT INR APTT Puncture Site ABG pH ABG pCO2 ABG pO2 ABG PO2/FiO2 Ratio ABG HCO3 ABG O2 Saturation ABG O2 Content ABG Base Excess A-a Gradient Oxyhemoglobin Carboxyhemoglobin Methemoglobin Reduced Hemoglobin Total Hemoglobin O2 Delivery Device O2 Liters/Min Minute Volume Vent Rate Vent Mode FiO2 Tidal Volume PEEP Peak Inspir Pressure Pressure Support Sodium Potassium Chloride Carbon Dioxide Anion Gap BUN Creatinine Estim Creat Clear Calc Estimated GFR Glucose POC Capillary Glucose 103 Calcium Phosphorus Total Bilirubin AST ALT Alkaline Phosphatase Total Protein Albumin Pleural Fluid Source Pleural Color Pleural Appearance Pleural pH Pleural RBC Pleural Nuc Cells Pleural Neutrophils Pleural Lymphocytes Pleural Monocytes Pleural Macrophages Quality VTE Prophylaxis VTE prophylaxis: pharmacologic ordered
[2024-12-19] MEDS: ACETAMINOPHEN 325 MG TABLET 650 MG PO (19:24)
[2024-12-20] VITALS (55 sets, daily range): BP systolic 60–139; BP diastolic 45–91; PULSE 92–149; RESP 12–19; TEMP 37.7–39.3; O2SAT 94–99
[2024-12-20] MEDS: IPRATROPIUM 0.5 MG/ALBUTEROL SULFATE 2.5 MG AMPUL.NEB 3 ML INHALATION ×2 (02:21→08:03)
[2024-12-20] MEDS: PIPERACILLIN/TAZOBACTAM SOD 3.375 GM in SODIUM CHLORIDE 0.9% IV 50 ML 100 ML IVPB ×4 (03:15→20:13)
[2024-12-20] MEDS: FENTANYL 2,500MCG/NS250ML(*CRX 2,500 MCG/250 ML BAG 15 MCG IV CONT (05:15)
[2024-12-20 05:23] LABS: Alveolar/Arterial O2 Gradient 74.4 mmHg; Arterial Blood Gas Ventilator rate 16 /MIN; Carboxyhemoglobin 1.2 % THb (0-2.0); Fractional Inspired Oxygen 30 %; HCO3 ABG 30.9 mEq/l (22.0-26.0); Methemoglobin ABG 0.1 %THb (0-1.5); Oxygen Content ABG 18.5 %vol (16.0-22.0); Oxygen Saturation ABG 94.1 % (95.0-100.0); PCO2 ABG 55.8 mmHg (35.0-45.0); PO2 ABG 73.9 mmHg (80.0-100.0); PO2 FiO2 Ratio Arterial Blood 2.46 %; Reduced Hemoglobin 5.9 %THb (0-5.0); Site Drawn RIGHT BRACHIAL
[2024-12-20 05:24] LABS: Arterial Blood Gas Tidal Volume 420 ml; Hematocrit 39.9 % (42.0-52.0); Hemoglobin 11.6 g/dL (14.0-18.0); Immature Granulocyte Percent A 0.4 % (0-0.5); Lymphocytes Absolute Auto 1.05 K/mm3 (0.9-3.2); Mean Corpuscular HGB Conc 29.1 g/dl (32-36); Mean Corpuscular Hemoglobin 25.0 pg (26-34); Mean Corpuscular Volume 86.0 fl (80-100); Nucleated Red Blood Cells Absolute Auto 0.000 K/mm3 (0.0-0.012); Nucleated Red Blood Cells Perc 0.0 % (0.0-0.2); Platelet Count Result 202 k/mm3 (150-375); Red Blood Count 4.64 M/mm3 (4.6-6.20); White Blood Count 13.8 K/mm3 (4.5-10.0)
[2024-12-20 05:36] LABS: Alanine Aminotransferase 45 U/L (6-50); Albumin Level 3.3 g/dL (3.5-5.1); Alkaline Phosphatase 80 U/L (38-126); Anion Gap 8 mmol/L (4-12); Aspartate Amino Transferase 55 U/L (17-59); Bilirubin,Total 0.8 mg/dL (0.2-1.3); Blood Urea Nitrogen 23 mg/dL (9-20); Calcium 8.4 mg/dL (8.4-10.2); Carbon Dioxide 34 mmol/L (22-30); Chloride 102 mmol/L (98-107); Estimated CRCL calculation 56 ml/min; Estimated Glomerular Filt Rate > 60; Glucose 133 mg/dL (65-110); Potassium 3.7 mmol/L (3.4-5.0); Sodium 144 mmol/L (137-145); Total Protein 6.7 g/dL (6.3-8.2)
[2024-12-20] MEDS: ACETAMINOPHEN 325 MG TABLET 650 MG PO ×3 (05:39→20:22)
[2024-12-20 05:43] LABS: INR 1.3; Partial Thromboplastin Time 35.0 Seconds (22.3-36.8); Prothrombin Time 15.7 Seconds (11.1-14.7)
[2024-12-20 05:52] LABS: Hypochromasia 1+; Schistocytes None Seen
[2024-12-20] MEDS: MIDAZOLAM 100MG/NS 100ML(*CRX) 100 MG/100 ML BAG IV CONT (06:00)
[2024-12-20] MEDS: CENTRAL LINE FLUSH 10 ML IV PUSH ×3 (06:28→22:55)
--- NOTE | 2024-12-20 07:49 | ECG_ITS ---
Test Date: 2024-12-20 07:55:29 Measurements Intervals [place] Rate: 141 P: 0 NM: 0 QRS: 142 QRSD: 151 T: -52 QT: 319 QTc: 489 Interpretive Statements ATRIAL FLUTTER/TACHYCARDIA WITH RAPID VENTRICULAR RESPONSE WITH ABERRANT CONDUCTION OR VENTRICULAR PREMATURE COMPLEXES RIGHT BUNDLE BRANCH BLOCK [120+ ms QRS DURATION, UPRIGHT V1, 40+ ms S IN I/aVL/V4/V5/V6] LEFT POSTERIOR FASCICULAR BLOCK [QRS AXIS > 109, INFERIOR Q] ABNORMAL ECG Compared to ECG 12/17/2024 01:34:32 NO SIGNIFICANT CHANGE OTHER THAN FLUTTER IS NOW CONDUCTING TWO-TO-ONE Electronically Signed On 12-21-2024 07:25:41 CDT by Gagandeep Argueta M.D.
[2024-12-20] MEDS: METOPROLOL TARTRATE INJ 5 MG/5 ML VIAL IV PUSH (08:27)
[2024-12-20] MEDS: PANTOPRAZOLE SODIUM IV 40 MG VIAL IV PUSH (08:35)
[2024-12-20] MEDS: ASPIRIN 81 MG CHEWABLE TABLET PO (08:35)
[2024-12-20] MEDS: ROSUVASTATIN 10 MG TABLET PO (08:35)
[2024-12-20] MEDS: FUROSEMIDE INJ 40 MG/4 ML VIAL IV PUSH ×2 (08:35→20:13)
[2024-12-20] MEDS: EMPAGLIFLOZIN 10 MG TABLET PO (08:35)
[2024-12-20] MEDS: MINERAL OIL/WHITE PETROLATUM OINTMENT 1 APPLIC EACH EYE ×2 (08:35→20:13)
[2024-12-20 10:45] LABS: Hematocrit 39.9 % (42.0-52.0); Hemoglobin 11.6 g/dL (14.0-18.0); Immature Granulocyte Percent A 0.8 % (0-0.5); Lymphocytes Absolute Auto 1.18 K/mm3 (0.9-3.2); Mean Corpuscular HGB Conc 29.1 g/dl (32-36); Mean Corpuscular Hemoglobin 25.1 pg (26-34); Mean Corpuscular Volume 86.4 fl (80-100); Nucleated Red Blood Cells Absolute Auto 0.000 K/mm3 (0.0-0.012); Nucleated Red Blood Cells Perc 0.0 % (0.0-0.2); Platelet Count Result 207 k/mm3 (150-375); Red Blood Count 4.62 M/mm3 (4.6-6.20); White Blood Count 19.2 K/mm3 (4.5-10.0)
[2024-12-20 11:00] LABS: INR 1.3; Prothrombin Time 15.8 Seconds (11.1-14.7)
[2024-12-20 11:01] LABS: Partial Thromboplastin Time 34.1 Seconds (22.3-36.8)
[2024-12-20] MEDS: HEPARIN SOD/D5W 100 UNITS/ML 25,000 UNITS/250 ML BAG 13 UNITS IV CONT (11:11)
[2024-12-20] MEDS: VANCOMYCIN 1,500 MG/NS 500 ML 1,500 MG/500 ML BAG 250 MG IVPB ×2 (11:13→22:55)
[2024-12-20] MEDS: PHENYLEPHRINE HCL INJ 50 MG in SODIUM CHLORIDE 0.9% IV 245 ML 12 ML IV CONT (11:13)
[2024-12-20 11:24] LABS: Anisocytosis 1+; Hypochromasia 1+; Schistocytes None Seen
--- NOTE | 2024-12-20 11:52 | P.PNINT_ITS ---
Progress Note: A&P Assessment and Plan (1) Acute hypoxic respiratory failure: Code(s): J96.01 - Acute respiratory failure with hypoxia Status: Acute Assessment and Plan: Acute Respiratory failure secondary to congestive heart failure leading to pleural effusions and pulmonary edema. Patient also has bilateral atelectasis with questionable pneumonia 12/16 intubated and placed on mechanical ventilation CTA chest 12/17 IMPRESSION: No pulmonary embolus. No aortic dissection. Increasing bilateral pleural effusions with adjacent compressive atelectasis. Rim-enhancing fluid collection along the anterior abdominal wall measuring denser than simple fluid for which a perioperative seroma versus abscess (less likely) is suspected. Focused ultrasound may be performed for further evaluation. Continue full mechanical ventilation support to prevent hypoxemia/hypercarbia and end organ damage. Chest x-ray and ABGs reviewed, ventilator adjusted Continue Lasix for diuresis 12/19/2024 status post LEFT thoracentesis by Interventional Radiology, removal of 1000 mL of yellow fluid Bronchodilators, will switch albuterol to Xopenex due to tachycardia procalcitonin level was 0.4. Continue Zosyn and vancomycin MRSA screen was positive Blood cultures were done on 12/14 and 12/16 for and have been negative 12/19: sputum culture pending Patient is sedated with fentanyl and Versed infusion, did not try weaning the sedation as patient was significantly tachycardic this morning and hypotensive (2) Shock: Code(s): R57.9 - Shock, unspecified Status: Acute Assessment and Plan: Multifactorial. Likely secondary combination of sedation, questionable sepsis,? Cardiogenic Patient on Levophed, will switch it to phenylephrine due to significant tachycardia. Maintain MAP > 65 mmHg for adequate end organ perfusion -cardiomyopathy with EF of 30-35% -unable to start dobutamine for cardiogenic shock secondary to tachycardia/AFib RVR (3) Acute exacerbation of CHF (congestive heart failure): Qualifiers: Heart failure type: combined systolic and diastolic Qualified Code(s): I50.43 - Acute on chronic combined systolic (congestive) and diastolic (congestive) heart failure Code(s): I50.9 - Heart failure, unspecified Status: Acute Assessment and Plan: Patient was recently diagnosed with congestive heart failure with EF of 40-45% and diastolic dysfunction. He was discharged on multiple medications but unfortunately was not taking any and was taking low-dose Lasix. Now presented with congestive heart failure with lower extremity edema, pleurall effusions which has been gradually getting worse now leading to intubation and mechanical ventilation -HOLD Entresto and beta-garret due to hypotension - Switch Levophed to phenylephrine due to severe tachycardic -Continue Lasix for diuresis -continue Jardiance per Cardiology Echo Summary 1. Left ventricular chamber dimension is moderately enlarged. 2. Left ventricular systolic function is moderately reduced, estimated at 30- 35% 3. There is mildly increased left ventricular wall thickness. 4. The left ventricular diastolic function is abnormal. 5. Right ventricular chamber dimension is mildly enlarged. 6. Right ventricular systolic function is reduced. 7. Left atrial chamber dimension is mildly enlarged. 8. Right atrial chamber dimension is mildly enlarged. 9. There is severe mitral valve regurgitation. 10. There is severe tricuspid valve regurgitation. 11. Moderate pulmonary hypertension, estimated pulmonary arterial systolic pressure is 53 mmHg. (4) Elevated troponin: Code(s): R79.89 - Other specified abnormal findings of blood chemistry Status: Acute Assessment and Plan: Chronically elevated troponin levels. -discussed with cardiology regarding troponin elevations, patient will require ischemic workup but prior to that will have to stabilize the patient. They also recommended transferring patient to a tertiary center for higher level of care and evaluation of severe mitral valve and tricuspid valve regurgitation along with cardiomyopathy -continue aspirin Patient was not reporting any chest pain during the hospitalization prior to intubation (5) Atrial fibrillation: Qualifiers: Atrial fibrillation type: unspecified Qualified Code(s): I48.91 - Unspecified atrial fibrillation Code(s): I48.91 - Unspecified atrial fibrillation Status: Chronic Assessment and Plan: History of AFib in the chart but none of the past EKGs have shown AFib and also currently in sinus rhythm -patient does have a history of atrial fibrillation per family, has not been on anticoagulation due to affordability issues -currently in AFib RVR this morning with rates in the 140s. Treated with metoprolol with slow his rate down, but patient being hypotensive. Discussed with Cardiology, will start amiodarone infusion -also started patient on heparin infusion (6) Hyperlipidemia: Code(s): E78.5 - Hyperlipidemia, unspecified Status: Chronic Assessment and Plan: Continue rosuvastatin (7) Bilateral pleural effusion: Code(s): J90 - Pleural effusion, not elsewhere classified Status: Acute Assessment and Plan: Left pleural effusion was drained by IR with removal of 1000 mL of yellow fluid (8) Pneumonia: Qualifiers: Laterality: bilateral Lung location: lower lobe of lung Pneumonia type: due to unspecified organism Qualified Code(s): J18.9 - Pneumonia, unspecified organism Code(s): J18.9 - Pneumonia, unspecified organism Status: Acute Assessment and Plan: Continue antibiotics as above (9) Substance abuse: Code(s): F19.10 - Other psychoactive substance abuse, uncomplicated Status: Chronic Assessment and Plan: Long History of drug abuse including cocaine could be the etiology of his congestive heart failure. (10) Abdominal fluid collection: Code(s): R18.8 - Other ascites Status: Acute Assessment and Plan: 12/17: CT scan of the abdomen shows Rim-enhancing fluid collection along the anterior abdominal wall measuring denser than simple fluid for which a perioperative seroma versus abscess (less likely) is suspected. Focused ultrasound may be performed for further evaluation.. Patient had abdominal surgery for umbilical hernia and small-bowel obstruction -Patient was evaluated by General surgery and surgeon feels that this is likely a seroma. - 12/19: Ultrasound-guided drain placement of the abdominal wall seroma by Interventional Radiology -Continue antibiotics as above (11) Lower extremity edema: Code(s): R60.0 - Localized edema Status: Acute Assessment and Plan: Likely secondary to congestive heart failure. 12/18: Venous Dopplers of bilateral lower extremities were negative for DVT Plan DVT prophylaxis -heparin infusion Stress ulcer prophylaxis -PPI Nutrition -tolerating Tube Feeds Code Status - Full Code Total Critical Care Time - 36 minutes Discussed with patient's son and daughter at bedside and updated them with patient's condition plan of care. They also discussed with the Cardiology INR aware that we will be transferring the patient to tertiary center for higher level of care given his cardiogenic shock, valvular dysfunction, cardiomyopathy. They are agreeable to transfer the patient. Due to a high probability of clinically significant, life threatening deterioration, the patient required my highest level of preparedness to intervene emergently and I personally spent this critical care time directly and personally managing the patient. This critical care time included obtaining a history; examining the patient; pulse oximetry; ordering and review of studies; arranging urgent treatment with development of a management plan; evaluation of patient's response to treatment; frequent reassessment; and discussions with other providers. It was exclusive of separately billable procedures and treating other patients and teaching time. Please see Assessment and Plan section and the rest of the note for further information on patient assessment and treatment This dictation may have been done utilizing a voice recognition system. Attempts have been made to correct errors. However, there may be uncorrected grammatical, spelling, and recognitions errors present. . Subjective Date/time seen: 12/20/24 11:52 Interval history: Reason for consult: AFib RVR, acute respiratory failure likely related to CHF exacerbation, pleural effusion and pulmonary edema. Shock likely related to cardiogenic versus septic, likely pneumonia, abdominal fluid collection, perioperative seroma versus abscess on CT scan of the abdomen and pelvis (robotic assisted repair of the incarcerated umbilical hernia on 08/24/2024.) 12/20/2024: Patient seen and examined the ICU remains intubated on CMV mode of ventilation, peep of 8, 30% FiO2. Sedated with fentanyl and Versed infusion. Patient does not open his eyes or follow simple commands. Urine output has been adequate in response to diuretics, febrile with T-max of 102.4?. Patient was tachycardic in the 140s this morning, metoprolol 5 mg IV x1 was given, rhythm slowed down to atrial fibrillation. Review of Systems Review of Systems: ROS unobtainable: Yes unobtainable due to endotracheal tube, unobtainable due to medical condition and unobtainable due to mental status Exam Narrative: General: Pt is sedated, intubated and on mechanical ventilation HEENT: Pupils are equal and reactive, sclerae is clear, ETT in place Lungs/Chest: Trachea central, coarse breath sounds bilaterally,, decreased at bases, no wheezing Cardiac: Irregularly irregular, tachycardic. Systolic murmur 3/6 present Circulation: Pedal pulses are intact and symmetrical. Abdomen: Decreased bowel sounds. Obese. Soft. NT. ND. Extremities: Bilateral pitting edema present right > left : [place] in place Neurologic: Patient intubated, sedated, does not open his eyes or follow simple commands Objective Data Vital Signs Vital Signs: Vital Signs - 24 hr 12/19/24 12:00 12/19/24 12:12/19/24 12:00 Temperature Pulse Rate 92 92 92 Respiratory Rate 16 16 Blood Pressure 102/72 Pulse Oximetry Oxygen Delivery Fraction of Inspired Oxygen 12/19/24 12:00 12/19/24 12:00 12/19/24 12:00 Temperature Pulse Rate 92 Respiratory Rate Blood Pressure Pulse Oximetry 99 Oxygen Delivery Mechanical Ventilation Fraction of Inspired Oxygen 40 40 12/19/24 12:00 12/19/24 12:15 12/19/24 13:12 Temperature 100.4 F H Pulse Rate 92 93 93 Respiratory Rate 16 16 Blood Pressure 102/72 91/61 L Pulse Oximetry 99 Oxygen Delivery Fraction of Inspired Oxygen 12/19/24 13:59 12/19/24 14:00 12/19/24 14:00 Temperature Pulse Rate 93 93 93 Respiratory Rate 16 16 Blood Pressure 98/69 L Pulse Oximetry Oxygen Delivery Fraction of Inspired Oxygen 12/19/24 14:00 12/19/24 14:00 12/19/24 14:00 Temperature 100.1 F H Pulse Rate 93 93 93 Respiratory Rate 16 16 Blood Pressure 98/69 L Pulse Oximetry 99 Oxygen Delivery Fraction of Inspired Oxygen 12/19/24 14:03 12/19/24 14:30 12/19/24 14:45 Temperature Pulse Rate 93 93 93 Respiratory Rate Blood Pressure 108/70 99/69 L Pulse Oximetry 99 Oxygen Delivery Mechanical Ventilation Fraction of Inspired Oxygen 40 12/19/24 16:00 12/19/24 16:00 12/19/24 16:00 Temperature Pulse Rate 93 93 93 Respiratory Rate 16 16 Blood Pressure 98/70 L Pulse Oximetry Oxygen Delivery Fraction of Inspired Oxygen 12/19/24 16:00 12/19/24 16:00 12/19/24 16:00 Temperature 99.9 F H Pulse Rate 94 Respiratory Rate 16 Blood Pressure 94/64 L Pulse Oximetry 99 Oxygen Delivery Mechanical Ventilation Fraction of Inspired Oxygen 40 40 12/19/24 16:00 12/19/24 17:51 12/19/24 18:00 Temperature Pulse Rate 94 93 94 Respiratory Rate 8 L Blood Pressure Pulse Oximetry 99 Oxygen Delivery Mechanical Ventilation Fraction of Inspired Oxygen 40 12/19/24 18:00 12/19/24 18:00 12/19/24 18:00 Temperature 99.9 F H Pulse Rate 94 94 94 Respiratory Rate 8 L 8 L Blood Pressure 95/64 L Pulse Oximetry 99 Oxygen Delivery Fraction of Inspired Oxygen 12/19/24 18:00 12/19/24 18:15 12/19/24 19:24 Temperature 100 F H Pulse Rate 94 94 Respiratory Rate Blood Pressure 96/66 L 83/59 L Pulse Oximetry Oxygen Delivery Fraction of Inspired Oxygen 12/19/24 20:00 12/19/24 20:00 12/19/24 20:00 Temperature Pulse Rate 108 H 108 H Respiratory Rate 16 Blood Pressure Pulse Oximetry 98 Oxygen Delivery Mechanical Ventilation Fraction of Inspired Oxygen 35 35 12/19/24 20:00 12/19/24 20:00 12/19/24 20:00 Temperature 99.9 F H Pulse Rate 108 H 108 H 108 H Respiratory Rate 16 16 Blood Pressure 110/55 L 110/55 L Pulse Oximetry 98 Oxygen Delivery Fraction of Inspired Oxygen 12/19/24 20:24 12/19/24 20:25 12/19/24 20:25 Temperature 99.9 F H Pulse Rate 104 H 108 H Respiratory Rate 16 Blood Pressure Pulse Oximetry 98 Oxygen Delivery Mechanical Ventilation Fraction of Inspired Oxygen 40 12/19/24 20:35 12/19/24 20:51 12/19/24 22:00 Temperature Pulse Rate 103 H 108 H 119 H Respiratory Rate 16 16 16 Blood Pressure Pulse Oximetry Oxygen Delivery Fraction of Inspired Oxygen 12/19/24 22:00 12/19/24 22:00 12/19/24 22:00 Temperature Pulse Rate 108 H 108 H 142 H Respiratory Rate 16 Blood Pressure 85/54 L Pulse Oximetry Oxygen Delivery Fraction of Inspired Oxygen 12/19/24 22:00 12/19/24 22:41 12/19/24 23:10 Temperature 99.6 F Pulse Rate 142 H 144 H 106 H Respiratory Rate 16 Blood Pressure 85/54 L Pulse Oximetry 97 98 Oxygen Delivery Mechanical Ventilation Fraction of Inspired Oxygen 35 12/20/24 00:00 12/20/24 00:00 12/20/24 00:00 Temperature Pulse Rate 114 H 114 H Respiratory Rate 16 Blood Pressure Pulse Oximetry 97 Oxygen Delivery Mechanical Ventilation Fraction of Inspired Oxygen 30 30 12/20/24 00:00 12/20/24 00:00 12/20/24 00:00 Temperature 100 F H Pulse Rate 114 H 114 H 114 H Respiratory Rate 16 16 Blood Pressure 110/52 L 110/52 L Pulse Oximetry 96 Oxygen Delivery Fraction of Inspired Oxygen 12/20/24 00:00 12/20/24 02:00 12/20/24 02:00 Temperature Pulse Rate 114 H 142 H 142 H Respiratory Rate 16 16 Blood Pressure 91/63 L Pulse Oximetry Oxygen Delivery Fraction of Inspired Oxygen 12/20/24 02:00 12/20/24 02:00 12/20/24 02:09 Temperature 100.2 F H Pulse Rate 142 H 142 H 142 H Respiratory Rate 16 16 Blood Pressure 91/63 L Pulse Oximetry 97 Oxygen Delivery Fraction of Inspired Oxygen 12/20/24 02:22 12/20/24 02:22 12/20/24 02:31 Temperature Pulse Rate 119 H 118 H 118 H Respiratory Rate 16 16 Blood Pressure Pulse Oximetry 98 Oxygen Delivery Mechanical Ventilation Fraction of Inspired Oxygen 30 12/20/24 04:00 12/20/24 04:00 12/20/24 04:00 Temperature Pulse Rate 149 H 149 H 149 H Respiratory Rate 16 19 Blood Pressure 118/72 Pulse Oximetry Oxygen Delivery Fraction of Inspired Oxygen 12/20/24 04:00 12/20/24 04:00 12/20/24 04:00 Temperature Pulse Rate 149 H 149 H Respiratory Rate 19 Blood Pressure Pulse Oximetry 98 Oxygen Delivery Mechanical Ventilation Fraction of Inspired Oxygen 30 30 12/20/24 04:00 12/20/24 04:38 12/20/24 05:05 Temperature 101.2 F H Pulse Rate 149 H 145 H 145 H Respiratory Rate 16 16 Blood Pressure 118/72 Pulse Oximetry 98 96 Oxygen Delivery Mechanical Ventilation Fraction of Inspired Oxygen 30 12/20/24 05:15 12/20/24 05:39 12/20/24 06:00 Temperature 102 F H Pulse Rate 145 H 144 H Respiratory Rate 16 Blood Pressure Pulse Oximetry Oxygen Delivery Fraction of Inspired Oxygen 12/20/24 06:00 12/20/24 06:00 12/20/24 06:00 Temperature 102.4 F H Pulse Rate 144 H 144 H 144 H Respiratory Rate 16 16 Blood Pressure 106/66 106/66 Pulse Oximetry 94 Oxygen Delivery Fraction of Inspired Oxygen 12/20/24 06:00 12/20/24 06:28 12/20/24 07:47 Temperature 102.4 F H 102.3 F H Pulse Rate 144 H 143 H Respiratory Rate 19 16 Blood Pressure 93/73 L Pulse Oximetry 95 Oxygen Delivery Fraction of Inspired Oxygen 12/20/24 08:00 12/20/24 08:00 12/20/24 08:00 Temperature Pulse Rate 144 H 149 H Respiratory Rate 19 Blood Pressure 97/68 L Pulse Oximetry 98 Oxygen Delivery Mechanical Ventilation Fraction of Inspired Oxygen 30 30 07/08/25 08:04 12/20/24 08:12 12/20/24 08:14 Temperature Pulse Rate 142 H 143 H 142 H Respiratory Rate 16 16 Blood Pressure Pulse Oximetry 95 Oxygen Delivery Mechanical Ventilation Fraction of Inspired Oxygen 30 12/20/24 08:21 12/20/24 08:21 12/20/24 08:27 Temperature Pulse Rate 143 H 143 H 143 H Respiratory Rate 16 16 Blood Pressure Pulse Oximetry Oxygen Delivery Fraction of Inspired Oxygen 12/20/24 08:44 12/20/24 08:48 12/20/24 09:50 Temperature Pulse Rate 104 H 105 H 125 H Respiratory Rate 16 Blood Pressure 80/45 L 60/50 L Pulse Oximetry Oxygen Delivery Fraction of Inspired Oxygen 12/20/24 10:00 12/20/24 10:10 12/20/24 10:11 Temperature 101.6 F H Pulse Rate 141 H 140 H 141 H Respiratory Rate 16 Blood Pressure 98/67 L 98/67 L Pulse Oximetry 97 Oxygen Delivery Fraction of Inspired Oxygen 12/20/24 10:54 12/20/24 11:13 12/20/24 11:17 Temperature Pulse Rate 107 H 107 H 105 H Respiratory Rate Blood Pressure 98/55 L 84/49 L Pulse Oximetry 95 Oxygen Delivery Mechanical Ventilation Fraction of Inspired Oxygen 30 12/20/24 11:22 Temperature 101.9 F H Pulse Rate Respiratory Rate Blood Pressure Pulse Oximetry Oxygen Delivery Fraction of Inspired Oxygen Intake/Output Intake/Output: Intake & Output 12/17/24 12/18/24 12/19/24 12/20/24 23:59 23:59 23:59 23:59 Intake Total 984.6 1825.3 2324.3 933.7 Output Total 1725 3400 2428 915 Balance -740.4 -1574.7 -103.7 18.7 Meds/Results Medications: Active Medications Generic Name Dose Route Start Last Admin Trade Name Freq PRN Reason Stop Dose Admin Acetaminophen 650 mg 12/14/24 20:56 12/20/24 11:22 Acetaminophen 325 Mg Tablet PO 650 mg Q4H PRN Administration Mild Pain (1-3) or Fever Albuterol 2.5 mg 12/14/24 21:44 Albuterol Sulfate Neb 2.5 Mg/3 Ml Inh INHALATION Q4HRT PRN Shortness Of Breath Or Wheezing Albuterol/Ipratropium 3 ml 12/15/24 02:00 12/20/24 08:03 Ipratropium 0.5 Mg/Albuterol Sulfate 2.5 Mg Ampul.Neb 3 Ml INHALATION 3 ml Q6HRT REJI Administration Aspirin 81 mg 12/17/24 09:00 12/20/24 08:35 Aspirin 81 Mg Chewable Tablet PO 81 mg DAILY REJI Administration Dextrose 12.5 gm 12/17/24 08:17 Dextrose 50% 25 Gm/50 Ml Syringe IV PUSH PRN PRN Hypoglycemia Protocol Empagliflozin 10 mg 12/15/24 09:00 12/20/24 08:35 Empagliflozin 10 Mg Tablet PO 10 mg DAILY REJI Administration Enoxaparin Sodium 40 mg 12/15/24 09:00 12/18/24 08:36 Enoxaparin 40 Mg/0.4 Ml Syringe SUB-Q 40 mg DAILY REJI Administration Furosemide 40 mg 12/15/24 09:00 12/20/24 08:35 Furosemide Inj 40 Mg/4 Ml Vial IV PUSH 40 mg Q12HR REJI Administration Glucagon 1 mg 12/17/24 08:17 Glucagon For Inj 1 Mg Vial IM PRN PRN Hypoglycemia Protocol Glucose 15 gm 12/17/24 08:17 Glucose Oral Gel 15 Gm Of Glucse In 37.5 Gm Tube PO PRN PRN Hypoglycemia Protocol Heparin Sodium (Porcine) 5,500 units 12/20/24 10:07 Heparin Sodium 5,000 Units/Ml Vial IV PUSH PRN PRN aPTT less than 55 seconds Heparin Sodium (Porcine) 3,000 units 12/20/24 10:07 Heparin Sodium 5,000 Units/Ml Vial IV PUSH PRN PRN aPTT 55 - 70 seconds Fentanyl Citrate 2,500 mcg in 250 mls @ 5 mls/hr 12/17/24 00:05 12/20/24 09:50 Fentanyl 2,500 Mcg/Ns 250 Ml IV CONT 50 mcg/hr .Q50H REJI 5 mls/hr Titration Protocol 50 MCG/HR Norepinephrine Bitartrate 8 mg in 250 mls @ 11.25 mls/hr 12/17/24 01:05 12/20/24 08:48 Levophed 8 Mg/D5w 250 Ml IV CONT 6 mcg/min .[id number] REJI 11.25 mls/hr Titration Protocol 6 MCG/MIN Dextrose 1,000 mls @ 100 mls/hr 12/17/24 08:17 Dextrose 5% 1,000 Ml IVPB PRN PRN Hypoglycemia Protocol Piperacillin Sod/Tazobactam 50 mls @ 100 mls/hr 12/19/24 15:00 12/20/24 08:35 Sod 3.375 gm/ Sodium Chloride IVPB 100 mls/hr Q6H REJI Administration Midazolam HCl 100 mg in 100 mls @ 3 mls/hr 12/20/24 06:00 12/20/24 08:21 Versed 100 Mg/Ns 100 Ml IV CONT 3 mg/hr .[id number] REJI 3 mls/hr Titration Protocol 3 MG/HR Heparin Sodium/Dextrose 25,000 units in 250 mls @ 13 mls/hr 12/20/24 10:00 12/20/24 11:11 Heparin Sodium/D5w 100 Units/Ml IV CONT 1,300 units/hr .[id number] REJI 13 mls/hr Administration Protocol 1,300 UNITS/HR Amiodarone HCl/Dextrose 360 mg in 200 mls @ 33.333 mls/hr 12/20/24 09:36 12/20/24 10:10 Nexterone 360 Mg/D5w 200 Ml IV CONT 12/20/24 15:35 1 mg/min .Q6H ONE 33.33 mls/hr Administration Protocol 1 MG/MIN Amiodarone HCl/Dextrose 360 mg in 200 mls @ 16.667 mls/hr 12/20/24 15:36 Nexterone 360 Mg/D5w 200 Ml IV CONT 12/21/24 15:35 .Q12H REJI Protocol 0.5 MG/MIN Vancomycin HCl 1,500 mg in 500 mls @ 250 mls/hr 12/20/24 10:00 12/20/24 11:13 Vancomycin 1,500 Mg/Ns 500 Ml IVPB 250 mls/hr Q12H REJI Administration Phenylephrine HCl 50 mg/ 250 mls @ 21 mls/hr 12/20/24 10:25 12/20/24 11:17 Sodium Chloride IV CONT 70 mcg/min .[id number] REJI 21 mls/hr Titration Protocol 70 MCG/MIN Insulin Aspart 3 - 6 units 12/17/24 12:00 12/20/24 06:27 Insulin Aspart (*Bkc) 100 Units/Ml SUB-Q Not Given Q6HR REJI Protocol Multi-Ingred Cream/Lotion/Oil/Oint 1 applic 12/17/24 09:00 12/20/24 08:35 Mineral Oil/White Petrolatum Ointment EACH EYE 1 applic Q12HR REJI Administration Pantoprazole Sodium 40 mg 12/17/24 09:00 12/20/24 08:35 Pantoprazole Sodium Iv 40 Mg Vial IV PUSH 40 mg DAILY REJI Administration Rosuvastatin Calcium 10 mg 12/15/24 09:00 12/20/24 08:35 Rosuvastatin 10 Mg Tablet PO 10 mg QAM REJI Administration Sacubitril/Valsartan 1 tab 12/15/24 09:00 12/16/24 21:45 Sacubitril/Valsartan 24-26 Mg Tablet PO 1 tab Q12HR REJI Administration Sodium Chloride 10 ml 12/17/24 06:00 12/20/24 06:28 Central Line Flush IV PUSH 10 ml Q8HR REJI Administration Sodium Chloride 20 ml 12/17/24 00:05 12/18/24 05:40 Central Line Flush IV PUSH 20 ml PRN PRN Administration after blood draws Radiology Results: ITS Impressions Chest CTA 12/16/24 13:43 IMPRESSION: No pulmonary embolus. No thoracic aortic dissection. Findings suggesting congestive failure, with large bilateral pleural effusions and intra-abdominal ascites. Abdomen X-Ray 12/17/24 07:07 IMPRESSION: Orogastric tube in good position and ready for immediate use. Remainder of examination is unchanged Head CT 12/17/24 07:09 Impression: No acute intracranial hemorrhage or suspicious mass effect. Chest/Abdomen/Pelvis CTA 12/17/24 07:41 IMPRESSION: No pulmonary embolus. No aortic dissection. Increasing bilateral pleural effusions with adjacent compressive atelectasis. Rim-enhancing fluid collection along the anterior abdominal wall measuring denser than simple fluid for which a perioperative seroma versus abscess (less likely) is suspected. Focused ultrasound may be performed for further evaluation. Venous Doppler Study 12/18/24 11:04 IMPRESSION: 1. No deep venous thrombosis. Thoracentesis Ultrasound 12/19/24 16:47 IMPRESSION: 1. Successful ultrasound-guided thoracentesis yielding 1000 mL of yellow fluid. Abscess Drainage Ultrasound 12/19/24 16:49 IMPRESSION: 1. Successful ultrasound-guided percutaneous abscess drain placement into a 6.7 x 1.7 x 6.7 cm complex subcutaneous fluid collection situated between the umbilicus and the ventral hernia mesh repair. Sonographic appearance of the fluid collection and the correlation and clarity of the aspirated fluid would favor evolving hematoma over abscess but would correlate with results from the Gram stain and cultures. The catheter will be managed by Dr. Villasenor. Chest X-Ray 12/20/24 05:49 Impression: Mild pulmonary edema with small left pleural effusion and left basilar atelectatic change. Support tubes, as above. Labs Labs: Laboratory Results - last 24 hr 12/19/24 12/19/24 12/19/24 10:44 11:52 17:04 WBC RBC Hgb Hct MCV MCH MCHC RDW Plt Count MPV Immature Gran % (Auto) Neut % (Auto) Lymph % (Auto) [place] % (Auto) Eos % (Auto) Baso % (Auto) Lymph # (Auto) [place] # (Auto) Eos # (Auto) Baso # (Auto) Abs Immat Gran (auto) Absolute Neuts (auto) Absolute Nucleated RBC Band Neutrophils % Nucleated RBC % Platelet Estimate Hypochromasia Anisocytosis Schistocytes PT INR APTT Puncture Site ABG pH ABG pCO2 ABG pO2 ABG PO2/FiO2 Ratio ABG HCO3 ABG O2 Saturation ABG O2 Content ABG Base Excess A-a Gradient Oxyhemoglobin Carboxyhemoglobin Methemoglobin Reduced Hemoglobin Total Hemoglobin O2 Delivery Device O2 Liters/Min Minute Volume Vent Rate Vent Mode FiO2 Tidal Volume PEEP Peak Inspir Pressure Pressure Support Sodium Potassium Chloride Carbon Dioxide Anion Gap BUN Creatinine Estim Creat Clear Calc Estimated GFR Glucose POC Capillary Glucose 106 H 103 Calcium Phosphorus Total Bilirubin AST ALT Alkaline Phosphatase Total Protein Albumin Pleural Fluid Source Pleural fluid Pleural Color Yellow Pleural Appearance Hazy Pleural RBC < 2000 Pleural Nuc Cells 441 Pleural Neutrophils 17 Pleural Lymphocytes 78 Pleural Monocytes 1 Pleural Macrophages 4 Vancomycin Trough 12/20/24 12/20/24 12/20/24 05:02 09:24 10:35 WBC 13.8 H 19.2 H RBC 4.64 4.62 Hgb 11.6 L 11.6 L Hct 39.9 L 39.9 L MCV 86.0 86.4 MCH 25.0 L 25.1 L MCHC 29.1 L 29.1 L RDW 18.8 H 18.6 H Plt Count 202 207 MPV 9.6 10.2 Immature Gran % (Auto) 0.4 0.8 H Neut % (Auto) 82.0 H 84.6 H Lymph % (Auto) 7.6 L 6.2 L [place] % (Auto) 9.3 H 8.2 Eos % (Auto) 0.4 0.0 Baso % (Auto) 0.3 0.2 Lymph # (Auto) 1.05 1.18 [place] # (Auto) 1.3 H 1.6 H Eos # (Auto) 0.1 0.0 Baso # (Auto) 0.0 0.0 Abs Immat Gran (auto) 0.05 H 0.16 H Absolute Neuts (auto) 11.3 H 16.2 H Absolute Nucleated RBC 0.000 0.000 Band Neutrophils % Not Reportable Not Reportable Nucleated RBC % 0.0 0.0 Platelet Estimate Adequate Adequate Hypochromasia 1+ 1+ Anisocytosis 1+ Schistocytes None seen None seen PT 15.7 H 15.8 H INR 1.3 1.3 APTT 35.0 34.1 Puncture Site Right brachial ABG pH 7.361 ABG pCO2 55.8 H ABG pO2 73.9 L ABG PO2/FiO2 Ratio 2.46 ABG HCO3 30.9 H ABG O2 Saturation 94.1 L ABG O2 Content 18.5 ABG Base Excess 4.0 A-a Gradient 74.4 Oxyhemoglobin 92.8 Carboxyhemoglobin 1.2 Methemoglobin 0.1 Reduced Hemoglobin 5.9 H Total Hemoglobin 14.2 O2 Delivery Device Ventilator O2 Liters/Min Not Reportable Minute Volume Not Reportable Vent Rate 16 Vent Mode Cmv FiO2 30 Tidal Volume 420 PEEP 8 Peak Inspir Pressure Not Reportable Pressure Support Not Reportable Sodium 144 Potassium 3.7 Chloride 102 Carbon Dioxide 34 H Anion Gap 8 BUN 23 H Creatinine 0.90 Estim Creat Clear Calc 56 Estimated GFR > 60 Glucose 133 H POC Capillary Glucose Calcium 8.4 Phosphorus 3.4 Total Bilirubin 0.8 AST 55 ALT 45 Alkaline Phosphatase 80 Total Protein 6.7 Albumin 3.3 L Pleural Fluid Source Pleural Color Pleural Appearance Pleural RBC Pleural Nuc Cells Pleural Neutrophils Pleural Lymphocytes Pleural Monocytes Pleural Macrophages Vancomycin Trough 8.2 L Quality VTE Prophylaxis VTE prophylaxis: pharmacologic ordered
--- NOTE | 2024-12-20 11:58 | PCNFU ---
Nutrition Follow-Up Complete: Increased protein energy needs related to mechanical ventilation as evidenced by need for full tube feeding goal: Meet estimated protein energy needs Patient is progressing towards goal. We will continue current goal. Pt current nutrition is Vital AF 1.2 at 50 ml/hr. Recommend: 60 ml/hr. Last recorded weight is 78.6 kg, stable Bowel Motility: Last reported BM 12/20 Labs Reviewed:Glu 133, Alb 3.3, Hgb 11.6, Hct 39.9 Meds Noted:Versed, Fentanyl, Heparin. Skin: WNL Additional Notes: Patient remains on mechanical vent. Tube feedings are being tolerated, plans for tube feedings to increase to 60 ml/hr. Total Nutrition: 1584 kcal/99 gm protein/1070 ml water. Flush 30 ml q 4 hours. Agree with diet orders at this time. Monitoring orders, labs, weights, meds, vitals Follow up Thursday/ Fridays. Daily rounds
--- NOTE | 2024-12-20 12:59 | P.PNCA_ITS ---
Progress Note: A&P Assessment and Plan (1) Acute exacerbation of CHF (congestive heart failure): Code(s): I50.9 - Heart failure, unspecified Status: Acute Plan -Acute on chronic systolic heart failure-LVEF 30-35% (was 40-45% in 08/2024); chest x-ray with pulmonary edema, BNP 5810 -Elevated troponin but cannot obtain history of chest pain as patient is intubated and sedated-0.024, 0.173 -Acute hypoxemic respiratory failure secondary to CHF-requiring intubation -Severe mitral regurgitation -Severe tricuspid regurgitation -Severe pulmonary hypertension with PASP of 53 mm Hg -A fib with RVR- pt was not taking anticoagulation due to cost (per pt's son) -Hypotension with SBP in the 70s requiring norepinephrine drip -Bilateral pleural effusion left greater than right -Pneumonia-on broad-spectrum antibiotics -Cardiac arrest status post resuscitation Plan: -Unable to add AV vivi blocking agents due to hypotension. Give Amiodarone bolus followed by drip for AFib rate/rhythm control -Start heparin for anticoagulation -Acute on chronic systolic heart failure could be secondary to severe underlying valvular heart disease vs AFib vs underlying ischemia will also need to be ruled out. Recommend cardiac catheterization to rule ischemia as a cause and RODERICK to evaluate MR and TR when patient more stable -Trend troponin to peak -Continue aspirin and statin -Guideline directed medical therapy as tolerated for systolic heart failure. Beta-garret held due to hypotension. Continue empagliflozin, Entresto -Agree with Levophed for hypotension given pneumonia/sepsis -Check daily weights, in's and out's, renal function -Check and replace electrolytes as needed to keep potassium greater than 4 and magnesium greater than 2 -Cardiology will continue to follow Subjective Date/time seen: 12/20/24 12:59 Interval history: Reason for encounter: AFib with RVR Interval history: Patient remains intubated and sedated. Telemetry shows AFib with RVR with rates in the 140s. Review of Systems Cardiovascular: Comments: As per HPI Respiratory: Comments: As per HPI Exam Narrative: General: Intubated and sedated Neck: Supple, unable to assess JVD Chest: Bilaterally clear to auscultation, no rales or rhonchi Cardiac: S1, S2 +, regular rate, regular rhythm, systolic murmur best heard in apical area Extremities: Bilateral lower extremity edema 1+, no skin rash Neurologic: Intubated and sedated Objective Data Vital Signs Vital Signs: Vital Signs - 24 hr 12/19/24 13:12 12/19/24 13:59 12/19/24 14:00 Temperature Pulse Rate 93 93 93 Respiratory Rate 16 16 Blood Pressure 98/69 L Pulse Oximetry Oxygen Delivery Fraction of Inspired Oxygen 12/19/24 14:00 12/19/24 14:00 12/19/24 14:00 Temperature Pulse Rate 93 93 93 Respiratory Rate 16 16 Blood Pressure Pulse Oximetry Oxygen Delivery Fraction of Inspired Oxygen 12/19/24 14:00 12/19/24 14:03 12/19/24 14:30 Temperature 37.8 C H Pulse Rate 93 93 93 Respiratory Rate 16 Blood Pressure 98/69 L 108/70 Pulse Oximetry 99 99 Oxygen Delivery Mechanical Ventilation Fraction of Inspired Oxygen 40 12/19/24 14:45 12/19/24 16:00 12/19/24 16:00 Temperature Pulse Rate 93 93 93 Respiratory Rate 16 Blood Pressure 99/69 L 98/70 L Pulse Oximetry Oxygen Delivery Fraction of Inspired Oxygen 12/19/24 16:00 12/19/24 16:00 12/19/24 16:00 Temperature Pulse Rate 93 Respiratory Rate 16 Blood Pressure Pulse Oximetry Oxygen Delivery Mechanical Ventilation Fraction of Inspired Oxygen 40 40 12/19/24 16:00 12/19/24 16:00 12/19/24 17:51 Temperature 37.7 C H Pulse Rate 94 94 93 Respiratory Rate 16 Blood Pressure 94/64 L Pulse Oximetry 99 99 Oxygen Delivery Mechanical Ventilation Fraction of Inspired Oxygen 40 12/19/24 18:00 12/19/24 18:00 12/19/24 18:00 Temperature Pulse Rate 94 94 94 Respiratory Rate 8 L 8 L Blood Pressure Pulse Oximetry Oxygen Delivery Fraction of Inspired Oxygen 12/19/24 18:00 12/19/24 18:00 12/19/24 18:15 Temperature 37.7 C H Pulse Rate 94 94 94 Respiratory Rate 8 L Blood Pressure 95/64 L 96/66 L 83/59 L Pulse Oximetry 99 Oxygen Delivery Fraction of Inspired Oxygen 12/19/24 19:24 12/19/24 20:00 12/19/24 20:00 Temperature 37.7 C H Pulse Rate 108 H 108 H Respiratory Rate 16 Blood Pressure Pulse Oximetry 98 Oxygen Delivery Mechanical Ventilation Fraction of Inspired Oxygen 35 12/19/24 20:00 12/19/24 20:00 12/19/24 20:00 Temperature 37.7 C H Pulse Rate 108 H 108 H Respiratory Rate 16 Blood Pressure 110/55 L 110/55 L Pulse Oximetry 98 Oxygen Delivery Fraction of Inspired Oxygen 35 12/19/24 20:00 12/19/24 20:24 12/19/24 20:25 Temperature Pulse Rate 108 H 104 H 108 H Respiratory Rate 16 16 Blood Pressure Pulse Oximetry 98 Oxygen Delivery Mechanical Ventilation Fraction of Inspired Oxygen 40 12/19/24 20:25 12/19/24 20:35 12/19/24 20:51 Temperature 37.7 C H Pulse Rate 103 H 108 H Respiratory Rate 16 16 Blood Pressure Pulse Oximetry Oxygen Delivery Fraction of Inspired Oxygen 12/19/24 22:00 12/19/24 22:00 12/19/24 22:00 Temperature Pulse Rate 119 H 108 H 108 H Respiratory Rate 16 16 Blood Pressure 85/54 L Pulse Oximetry Oxygen Delivery Fraction of Inspired Oxygen 12/19/24 22:00 12/19/24 22:00 12/19/24 22:41 Temperature 37.6 C Pulse Rate 142 H 142 H 144 H Respiratory Rate 16 Blood Pressure 85/54 L Pulse Oximetry 97 Oxygen Delivery Fraction of Inspired Oxygen 12/19/24 23:10 12/20/24 00:00 12/20/24 00:00 Temperature Pulse Rate 106 H 114 H 114 H Respiratory Rate 16 Blood Pressure Pulse Oximetry 98 97 Oxygen Delivery Mechanical Ventilation Mechanical Ventilation Fraction of Inspired Oxygen 35 30 12/20/24 00:00 12/20/24 00:00 12/20/24 00:00 Temperature 37.7 C H Pulse Rate 114 H 114 H Respiratory Rate 16 Blood Pressure 110/52 L 110/52 L Pulse Oximetry 96 Oxygen Delivery Fraction of Inspired Oxygen 30 12/20/24 00:00 12/20/24 00:00 12/20/24 02:00 Temperature Pulse Rate 114 H 114 H 142 H Respiratory Rate 16 16 Blood Pressure 91/63 L Pulse Oximetry Oxygen Delivery Fraction of Inspired Oxygen 12/20/24 02:00 12/20/24 02:00 12/20/24 02:00 Temperature 37.9 C H Pulse Rate 142 H 142 H 142 H Respiratory Rate 16 16 Blood Pressure 91/63 L Pulse Oximetry 97 Oxygen Delivery Fraction of Inspired Oxygen 12/20/24 02:09 12/20/24 02:22 12/20/24 02:22 Temperature Pulse Rate 142 H 119 H 118 H Respiratory Rate 16 16 Blood Pressure Pulse Oximetry 98 Oxygen Delivery Mechanical Ventilation Fraction of Inspired Oxygen 30 12/20/24 02:31 12/20/24 04:00 12/20/24 04:00 Temperature Pulse Rate 118 H 149 H 149 H Respiratory Rate 16 16 19 Blood Pressure Pulse Oximetry Oxygen Delivery Fraction of Inspired Oxygen 12/20/24 04:00 12/20/24 04:00 12/20/24 04:00 Temperature Pulse Rate 149 H 149 H 149 H Respiratory Rate 19 Blood Pressure 118/72 Pulse Oximetry 98 Oxygen Delivery Mechanical Ventilation Fraction of Inspired Oxygen 30 12/20/24 04:00 12/20/24 04:00 12/20/24 04:38 Temperature 38.4 C H Pulse Rate 149 H 145 H Respiratory Rate 16 16 Blood Pressure 118/72 Pulse Oximetry 98 Oxygen Delivery Fraction of Inspired Oxygen 30 12/20/24 05:05 12/20/24 05:15 12/20/24 05:39 Temperature 38.8 C H Pulse Rate 145 H 145 H Respiratory Rate 16 Blood Pressure Pulse Oximetry 96 Oxygen Delivery Mechanical Ventilation Fraction of Inspired Oxygen 30 12/20/24 06:00 12/20/24 06:00 12/20/24 06:00 Temperature 39.1 C H Pulse Rate 144 H 144 H 144 H Respiratory Rate 16 Blood Pressure 106/66 106/66 Pulse Oximetry 94 Oxygen Delivery Fraction of Inspired Oxygen 12/20/24 06:00 12/20/24 06:00 12/20/24 06:28 Temperature 39.1 C H Pulse Rate 144 H 144 H Respiratory Rate 16 19 Blood Pressure Pulse Oximetry Oxygen Delivery Fraction of Inspired Oxygen 12/20/24 07:47 12/20/24 08:00 12/20/24 08:00 Temperature 39.1 C H Pulse Rate 143 H 144 H 149 H Respiratory Rate 16 19 Blood Pressure 93/73 L 97/68 L Pulse Oximetry 95 98 Oxygen Delivery Mechanical Ventilation Fraction of Inspired Oxygen 30 12/20/24 08:00 12/20/24 08:04 12/20/24 08:12 Temperature Pulse Rate 142 H 143 H Respiratory Rate 16 16 Blood Pressure Pulse Oximetry Oxygen Delivery Fraction of Inspired Oxygen 30 12/20/24 08:14 12/20/24 08:21 12/20/24 08:21 Temperature Pulse Rate 142 H 143 H 143 H Respiratory Rate 16 16 Blood Pressure Pulse Oximetry 95 Oxygen Delivery Mechanical Ventilation Fraction of Inspired Oxygen 30 12/20/24 08:27 12/20/24 08:44 12/20/24 08:48 Temperature Pulse Rate 143 H 104 H 105 H Respiratory Rate Blood Pressure 80/45 L 60/50 L Pulse Oximetry Oxygen Delivery Fraction of Inspired Oxygen 12/20/24 09:50 12/20/24 10:00 12/20/24 10:10 Temperature 38.7 C H Pulse Rate 125 H 141 H 140 H Respiratory Rate 16 16 Blood Pressure 98/67 L 98/67 L Pulse Oximetry 97 Oxygen Delivery Fraction of Inspired Oxygen 12/20/24 10:11 12/20/24 10:54 12/20/24 11:13 Temperature Pulse Rate 141 H 107 H 107 H Respiratory Rate Blood Pressure 98/55 L Pulse Oximetry 95 Oxygen Delivery Mechanical Ventilation Fraction of Inspired Oxygen 30 12/20/24 11:17 12/20/24 11:22 12/20/24 11:58 Temperature 38.8 C H 38.8 C H Pulse Rate 105 H 103 H Respiratory Rate 16 Blood Pressure 84/49 L 110/60 Pulse Oximetry 96 Oxygen Delivery Fraction of Inspired Oxygen 12/20/24 12:00 12/20/24 12:00 Temperature Pulse Rate 149 H Respiratory Rate 19 Blood Pressure Pulse Oximetry 98 Oxygen Delivery Mechanical Ventilation Fraction of Inspired Oxygen 30 30 Intake/Output Intake/Output: Intake & Output 12/17/24 12/18/24 12/19/24 12/20/24 23:59 23:59 23:59 23:59 Intake Total 984.6 1825.3 2324.3 933.7 Output Total 1725 3400 2428 915 Balance -740.4 -1574.7 -103.7 18.7 Meds/Results Medications: Active Medications Generic Name Dose Route Start Last Admin Trade Name Freq PRN Reason Stop Dose Admin Acetaminophen 650 mg 12/14/24 20:56 12/20/24 11:22 Acetaminophen 325 Mg Tablet PO 650 mg Q4H PRN Administration Mild Pain (1-3) or Fever Albuterol/Ipratropium 3 ml 12/15/24 02:00 12/20/24 08:03 Ipratropium 0.5 Mg/Albuterol Sulfate 2.5 Mg Ampul.Neb 3 Ml INHALATION 3 ml Q6HRT REJI Administration Aspirin 81 mg 12/17/24 09:00 12/20/24 08:35 Aspirin 81 Mg Chewable Tablet PO 81 mg DAILY REJI Administration Dextrose 12.5 gm 12/17/24 08:17 Dextrose 50% 25 Gm/50 Ml Syringe IV PUSH PRN PRN Hypoglycemia Protocol Empagliflozin 10 mg 12/15/24 09:00 12/20/24 08:35 Empagliflozin 10 Mg Tablet PO 10 mg DAILY REJI Administration Enoxaparin Sodium 40 mg 12/15/24 09:00 12/18/24 08:36 Enoxaparin 40 Mg/0.4 Ml Syringe SUB-Q 40 mg DAILY REJI Administration Furosemide 40 mg 12/15/24 09:00 12/20/24 08:35 Furosemide Inj 40 Mg/4 Ml Vial IV PUSH 40 mg Q12HR REJI Administration Glucagon 1 mg 12/17/24 08:17 Glucagon For Inj 1 Mg Vial IM PRN PRN Hypoglycemia Protocol Glucose 15 gm 12/17/24 08:17 Glucose Oral Gel 15 Gm Of Glucse In 37.5 Gm Tube PO PRN PRN Hypoglycemia Protocol Heparin Sodium (Porcine) 5,500 units 12/20/24 10:07 Heparin Sodium 5,000 Units/Ml Vial IV PUSH PRN PRN aPTT less than 55 seconds Heparin Sodium (Porcine) 3,000 units 12/20/24 10:07 Heparin Sodium 5,000 Units/Ml Vial IV PUSH PRN PRN aPTT 55 - 70 seconds Fentanyl Citrate 2,500 mcg in 250 mls @ 5 mls/hr 12/17/24 00:05 12/20/24 09:50 Fentanyl 2,500 Mcg/Ns 250 Ml IV CONT 50 mcg/hr .Q50H REJI 5 mls/hr Titration Protocol 50 MCG/HR Norepinephrine Bitartrate 8 mg in 250 mls @ 11.25 mls/hr 12/17/24 01:05 12/20/24 08:48 Levophed 8 Mg/D5w 250 Ml IV CONT 6 mcg/min .[id number] REJI 11.25 mls/hr Titration Protocol 6 MCG/MIN Dextrose 1,000 mls @ 100 mls/hr 12/17/24 08:17 Dextrose 5% 1,000 Ml IVPB PRN PRN Hypoglycemia Protocol Piperacillin Sod/Tazobactam 50 mls @ 100 mls/hr 12/19/24 15:00 12/20/24 08:35 Sod 3.375 gm/ Sodium Chloride IVPB 100 mls/hr Q6H REJI Administration Midazolam HCl 100 mg in 100 mls @ 3 mls/hr 12/20/24 06:00 12/20/24 08:21 Versed 100 Mg/Ns 100 Ml IV CONT 3 mg/hr .[id number] REJI 3 mls/hr Titration Protocol 3 MG/HR Heparin Sodium/Dextrose 25,000 units in 250 mls @ 13 mls/hr 12/20/24 10:00 12/20/24 11:11 Heparin Sodium/D5w 100 Units/Ml IV CONT 1,300 units/hr .[id number] REJI 13 mls/hr Administration Protocol 1,300 UNITS/HR Amiodarone HCl/Dextrose 360 mg in 200 mls @ 33.333 mls/hr 12/20/24 09:36 12/20/24 10:10 Nexterone 360 Mg/D5w 200 Ml IV CONT 12/20/24 15:35 1 mg/min .Q6H ONE 33.33 mls/hr Administration Protocol 1 MG/MIN Amiodarone HCl/Dextrose 360 mg in 200 mls @ 16.667 mls/hr 12/20/24 15:36 Nexterone 360 Mg/D5w 200 Ml IV CONT 12/21/24 15:35 .Q12H REJI Protocol 0.5 MG/MIN Vancomycin HCl 1,500 mg in 500 mls @ 250 mls/hr 12/20/24 10:00 12/20/24 11:13 Vancomycin 1,500 Mg/Ns 500 Ml IVPB 250 mls/hr Q12H REJI Administration Phenylephrine HCl 50 mg/ 250 mls @ 21 mls/hr 12/20/24 10:25 12/20/24 11:17 Sodium Chloride IV CONT 70 mcg/min .[id number] REJI 21 mls/hr Titration Protocol 70 MCG/MIN Insulin Aspart 3 - 6 units 12/17/24 12:00 12/20/24 06:27 Insulin Aspart (*Bkc) 100 Units/Ml SUB-Q Not Given Q6HR REJI Protocol Levalbuterol HCl 0.63 mg 12/20/24 14:00 Levalbuterol Neb 1.25 Mg/3 Ml INHALATION Q6HRT REJI Multi-Ingred Cream/Lotion/Oil/Oint 1 applic 12/17/24 09:00 12/20/24 08:35 Mineral Oil/White Petrolatum Ointment EACH EYE 1 applic Q12HR REJI Administration Pantoprazole Sodium 40 mg 12/17/24 09:00 12/20/24 08:35 Pantoprazole Sodium Iv 40 Mg Vial IV PUSH 40 mg DAILY REJI Administration Rosuvastatin Calcium 10 mg 12/15/24 09:00 12/20/24 08:35 Rosuvastatin 10 Mg Tablet PO 10 mg QAM REJI Administration Sacubitril/Valsartan 1 tab 12/15/24 09:00 12/16/24 21:45 Sacubitril/Valsartan 24-26 Mg Tablet PO 1 tab Q12HR REJI Administration Sodium Chloride 10 ml 12/17/24 06:00 12/20/24 06:28 Central Line Flush IV PUSH 10 ml Q8HR REJI Administration Sodium Chloride 20 ml 12/17/24 00:05 12/18/24 05:40 Central Line Flush IV PUSH 20 ml PRN PRN Administration after blood draws Radiology Results: ITS Impressions Chest CTA 12/16/24 13:43 IMPRESSION: No pulmonary embolus. No thoracic aortic dissection. Findings suggesting congestive failure, with large bilateral pleural effusions and intra-abdominal ascites. Abdomen X-Ray 12/17/24 07:07 IMPRESSION: Orogastric tube in good position and ready for immediate use. Remainder of examination is unchanged Head CT 12/17/24 07:09 Impression: No acute intracranial hemorrhage or suspicious mass effect. Chest/Abdomen/Pelvis CTA 12/17/24 07:41 IMPRESSION: No pulmonary embolus. No aortic dissection. Increasing bilateral pleural effusions with adjacent compressive atelectasis. Rim-enhancing fluid collection along the anterior abdominal wall measuring denser than simple fluid for which a perioperative seroma versus abscess (less likely) is suspected. Focused ultrasound may be performed for further evaluation. Venous Doppler Study 12/18/24 11:04 IMPRESSION: 1. No deep venous thrombosis. Thoracentesis Ultrasound 12/19/24 16:47 IMPRESSION: 1. Successful ultrasound-guided thoracentesis yielding 1000 mL of yellow fluid. Abscess Drainage Ultrasound 12/19/24 16:49 IMPRESSION: 1. Successful ultrasound-guided percutaneous abscess drain placement into a 6.7 x 1.7 x 6.7 cm complex subcutaneous fluid collection situated between the umbilicus and the ventral hernia mesh repair. Sonographic appearance of the fluid collection and the correlation and clarity of the aspirated fluid would favor evolving hematoma over abscess but would correlate with results from the Gram stain and cultures. The catheter will be managed by Dr. Villasenor. Chest X-Ray 12/20/24 05:49 Impression: Mild pulmonary edema with small left pleural effusion and left basilar atelectatic change. Support tubes, as above. Labs Labs: Laboratory Results - last 24 hr 12/19/24 12/20/24 12/20/24 17:04 05:02 09:24 WBC 13.8 H RBC 4.64 Hgb 11.6 L Hct 39.9 L MCV 86.0 MCH 25.0 L MCHC 29.1 L RDW 18.8 H Plt Count 202 MPV 9.6 Immature Gran % (Auto) 0.4 Neut % (Auto) 82.0 H Lymph % (Auto) 7.6 L [place] % (Auto) 9.3 H Eos % (Auto) 0.4 Baso % (Auto) 0.3 Lymph # (Auto) 1.05 [place] # (Auto) 1.3 H Eos # (Auto) 0.1 Baso # (Auto) 0.0 Abs Immat Gran (auto) 0.05 H Absolute Neuts (auto) 11.3 H Absolute Nucleated RBC 0.000 Band Neutrophils % Not Reportable Nucleated RBC % 0.0 Platelet Estimate Adequate Hypochromasia 1+ Anisocytosis Schistocytes None seen PT 15.7 H INR 1.3 APTT 35.0 Puncture Site Right brachial ABG pH 7.361 ABG pCO2 55.8 H ABG pO2 73.9 L ABG PO2/FiO2 Ratio 2.46 ABG HCO3 30.9 H ABG O2 Saturation 94.1 L ABG O2 Content 18.5 ABG Base Excess 4.0 A-a Gradient 74.4 Oxyhemoglobin 92.8 Carboxyhemoglobin 1.2 Methemoglobin 0.1 Reduced Hemoglobin 5.9 H Total Hemoglobin 14.2 O2 Delivery Device Ventilator O2 Liters/Min Not Reportable Minute Volume Not Reportable Vent Rate 16 Vent Mode Cmv FiO2 30 Tidal Volume 420 PEEP 8 Peak Inspir Pressure Not Reportable Pressure Support Not Reportable Sodium 144 Potassium 3.7 Chloride 102 Carbon Dioxide 34 H Anion Gap 8 BUN 23 H Creatinine 0.90 Estim Creat Clear Calc 56 Estimated GFR > 60 Glucose 133 H POC Capillary Glucose 103 Calcium 8.4 Phosphorus 3.4 Total Bilirubin 0.8 AST 55 ALT 45 Alkaline Phosphatase 80 Total Protein 6.7 Albumin 3.3 L Vancomycin Trough 8.2 L 12/20/24 10:35 WBC 19.2 H RBC 4.62 Hgb 11.6 L Hct 39.9 L MCV 86.4 MCH 25.1 L MCHC 29.1 L RDW 18.6 H Plt Count 207 MPV 10.2 Immature Gran % (Auto) 0.8 H Neut % (Auto) 84.6 H Lymph % (Auto) 6.2 L [place] % (Auto) 8.2 Eos % (Auto) 0.0 Baso % (Auto) 0.2 Lymph # (Auto) 1.18 [place] # (Auto) 1.6 H Eos # (Auto) 0.0 Baso # (Auto) 0.0 Abs Immat Gran (auto) 0.16 H Absolute Neuts (auto) 16.2 H Absolute Nucleated RBC 0.000 Band Neutrophils % Not Reportable Nucleated RBC % 0.0 Platelet Estimate Adequate Hypochromasia 1+ Anisocytosis 1+ Schistocytes None seen PT 15.8 H INR 1.3 APTT 34.1 Puncture Site ABG pH ABG pCO2 ABG pO2 ABG PO2/FiO2 Ratio ABG HCO3 ABG O2 Saturation ABG O2 Content ABG Base Excess A-a Gradient Oxyhemoglobin Carboxyhemoglobin Methemoglobin Reduced Hemoglobin Total Hemoglobin O2 Delivery Device O2 Liters/Min Minute Volume Vent Rate Vent Mode FiO2 Tidal Volume PEEP Peak Inspir Pressure Pressure Support Sodium Potassium Chloride Carbon Dioxide Anion Gap BUN Creatinine Estim Creat Clear Calc Estimated GFR Glucose POC Capillary Glucose Calcium Phosphorus Total Bilirubin AST ALT Alkaline Phosphatase Total Protein Albumin Vancomycin Trough
--- NOTE | 2024-12-20 13:24 | P.PNGS_ITS ---
Progress Note: A&P Assessment and Plan (1) Seroma after procedure: Status: Acute Assessment and Plan: * US-guided aspiration and drain placement into the abdominal wall seroma was done yesterday. Fluid sent for cultures. Gram stain shows WBCs but no org anisms seen. Will continue to follow for drain management and await culture results. Plan I have discussed the patient's case and plan of care with Dr. Lewis. Subjective Subjective Date/Time Seen: 12/20/24 13:24 Interval history: Patient seen in the ICU intubated and sedated. He was tachycardic and hypotensive this morning. Vasopressors being switched. No sedation vacation due to his tachycardia. Review of Systems Review of Systems: ROS unobtainable: Yes unobtainable due to endotracheal tube Exam GI: Other: Abdomen soft and nondistended. No redness of the skin over the area of the hernia repair. Seroma in the periumbilical area of the mid abdominal wall. No recurrent hernia. Percutaneous drain in place to the left of the umbilicus with clear, light brown-yellow drainage. Objective Data Vital Signs Vital Signs: Vital Signs - 24 hr 12/19/24 13:59 12/19/24 14:00 12/19/24 14:00 Temperature Pulse Rate 93 93 93 Respiratory Rate 16 16 Blood Pressure 98/69 L Pulse Oximetry Oxygen Delivery Fraction of Inspired Oxygen 12/19/24 14:00 12/19/24 14:00 12/19/24 14:00 Temperature 100.1 F H Pulse Rate 93 93 93 Respiratory Rate 16 16 Blood Pressure 98/69 L Pulse Oximetry 99 Oxygen Delivery Fraction of Inspired Oxygen 12/19/24 14:03 12/19/24 14:30 12/19/24 14:45 Temperature Pulse Rate 93 93 93 Respiratory Rate Blood Pressure 108/70 99/69 L Pulse Oximetry 99 Oxygen Delivery Mechanical Ventilation Fraction of Inspired Oxygen 40 12/19/24 16:00 12/19/24 16:00 12/19/24 16:00 Temperature Pulse Rate 93 93 93 Respiratory Rate 16 16 Blood Pressure 98/70 L Pulse Oximetry Oxygen Delivery Fraction of Inspired Oxygen 12/19/24 16:00 12/19/24 16:00 12/19/24 16:00 Temperature 99.9 F H Pulse Rate 94 Respiratory Rate 16 Blood Pressure 94/64 L Pulse Oximetry 99 Oxygen Delivery Mechanical Ventilation Fraction of Inspired Oxygen 40 40 12/19/24 16:00 12/19/24 17:51 12/19/24 18:00 Temperature Pulse Rate 94 93 94 Respiratory Rate 8 L Blood Pressure Pulse Oximetry 99 Oxygen Delivery Mechanical Ventilation Fraction of Inspired Oxygen 40 12/19/24 18:00 12/19/24 18:00 12/19/24 18:00 Temperature 99.9 F H Pulse Rate 94 94 94 Respiratory Rate 8 L 8 L Blood Pressure 95/64 L Pulse Oximetry 99 Oxygen Delivery Fraction of Inspired Oxygen 12/19/24 18:00 12/19/24 18:15 12/19/24 19:24 Temperature 100 F H Pulse Rate 94 94 Respiratory Rate Blood Pressure 96/66 L 83/59 L Pulse Oximetry Oxygen Delivery Fraction of Inspired Oxygen 12/19/24 20:00 12/19/24 20:00 12/19/24 20:00 Temperature Pulse Rate 108 H 108 H Respiratory Rate 16 Blood Pressure Pulse Oximetry 98 Oxygen Delivery Mechanical Ventilation Fraction of Inspired Oxygen 35 35 12/19/24 20:00 12/19/24 20:00 12/19/24 20:00 Temperature 99.9 F H Pulse Rate 108 H 108 H 108 H Respiratory Rate 16 16 Blood Pressure 110/55 L 110/55 L Pulse Oximetry 98 Oxygen Delivery Fraction of Inspired Oxygen 12/19/24 20:24 12/19/24 20:25 12/19/24 20:25 Temperature 99.9 F H Pulse Rate 104 H 108 H Respiratory Rate 16 Blood Pressure Pulse Oximetry 98 Oxygen Delivery Mechanical Ventilation Fraction of Inspired Oxygen 40 12/19/24 20:35 12/19/24 20:51 12/19/24 22:00 Temperature Pulse Rate 103 H 108 H 119 H Respiratory Rate 16 16 16 Blood Pressure Pulse Oximetry Oxygen Delivery Fraction of Inspired Oxygen 12/19/24 22:00 12/19/24 22:00 12/19/24 22:00 Temperature Pulse Rate 108 H 108 H 142 H Respiratory Rate 16 Blood Pressure 85/54 L Pulse Oximetry Oxygen Delivery Fraction of Inspired Oxygen 12/19/24 22:00 12/19/24 22:41 12/19/24 23:10 Temperature 99.6 F Pulse Rate 142 H 144 H 106 H Respiratory Rate 16 Blood Pressure 85/54 L Pulse Oximetry 97 98 Oxygen Delivery Mechanical Ventilation Fraction of Inspired Oxygen 35 12/20/24 00:00 12/20/24 00:00 12/20/24 00:00 Temperature Pulse Rate 114 H 114 H Respiratory Rate 16 Blood Pressure Pulse Oximetry 97 Oxygen Delivery Mechanical Ventilation Fraction of Inspired Oxygen 30 30 12/20/24 00:00 12/20/24 00:00 12/20/24 00:00 Temperature 100 F H Pulse Rate 114 H 114 H 114 H Respiratory Rate 16 16 Blood Pressure 110/52 L 110/52 L Pulse Oximetry 96 Oxygen Delivery Fraction of Inspired Oxygen 12/20/24 00:00 12/20/24 02:00 12/20/24 02:00 Temperature Pulse Rate 114 H 142 H 142 H Respiratory Rate 16 16 Blood Pressure 91/63 L Pulse Oximetry Oxygen Delivery Fraction of Inspired Oxygen 12/20/24 02:00 12/20/24 02:00 12/20/24 02:09 Temperature 100.2 F H Pulse Rate 142 H 142 H 142 H Respiratory Rate 16 16 Blood Pressure 91/63 L Pulse Oximetry 97 Oxygen Delivery Fraction of Inspired Oxygen 12/20/24 02:22 12/20/24 02:22 12/20/24 02:31 Temperature Pulse Rate 119 H 118 H 118 H Respiratory Rate 16 16 Blood Pressure Pulse Oximetry 98 Oxygen Delivery Mechanical Ventilation Fraction of Inspired Oxygen 30 12/20/24 04:00 12/20/24 04:00 12/20/24 04:00 Temperature Pulse Rate 149 H 149 H 149 H Respiratory Rate 16 19 Blood Pressure 118/72 Pulse Oximetry Oxygen Delivery Fraction of Inspired Oxygen 12/20/24 04:00 12/20/24 04:00 12/20/24 04:00 Temperature Pulse Rate 149 H 149 H Respiratory Rate 19 Blood Pressure Pulse Oximetry 98 Oxygen Delivery Mechanical Ventilation Fraction of Inspired Oxygen 30 30 12/20/24 04:00 12/20/24 04:38 12/20/24 05:05 Temperature 101.2 F H Pulse Rate 149 H 145 H 145 H Respiratory Rate 16 16 Blood Pressure 118/72 Pulse Oximetry 98 96 Oxygen Delivery Mechanical Ventilation Fraction of Inspired Oxygen 30 12/20/24 05:15 12/20/24 05:39 12/20/24 06:00 Temperature 102 F H Pulse Rate 145 H 144 H Respiratory Rate 16 Blood Pressure Pulse Oximetry Oxygen Delivery Fraction of Inspired Oxygen 12/20/24 06:00 12/20/24 06:00 12/20/24 06:00 Temperature 102.4 F H Pulse Rate 144 H 144 H 144 H Respiratory Rate 16 16 Blood Pressure 106/66 106/66 Pulse Oximetry 94 Oxygen Delivery Fraction of Inspired Oxygen 12/20/24 06:00 12/20/24 06:28 12/20/24 07:47 Temperature 102.4 F H 102.3 F H Pulse Rate 144 H 143 H Respiratory Rate 19 16 Blood Pressure 93/73 L Pulse Oximetry 95 Oxygen Delivery Fraction of Inspired Oxygen 12/20/24 08:00 12/20/24 08:00 12/20/24 08:00 Temperature Pulse Rate 144 H 149 H Respiratory Rate 19 Blood Pressure 97/68 L Pulse Oximetry 98 Oxygen Delivery Mechanical Ventilation Fraction of Inspired Oxygen 30 30 12/20/24 08:04 12/20/24 08:12 12/20/24 08:14 Temperature Pulse Rate 142 H 143 H 142 H Respiratory Rate 16 16 Blood Pressure Pulse Oximetry 95 Oxygen Delivery Mechanical Ventilation Fraction of Inspired Oxygen 30 12/20/24 08:21 12/20/24 08:21 12/20/24 08:27 Temperature Pulse Rate 143 H 143 H 143 H Respiratory Rate 16 16 Blood Pressure Pulse Oximetry Oxygen Delivery Fraction of Inspired Oxygen 12/20/24 08:44 12/20/24 08:48 12/20/24 09:50 Temperature Pulse Rate 104 H 105 H 125 H Respiratory Rate 16 Blood Pressure 80/45 L 60/50 L Pulse Oximetry Oxygen Delivery Fraction of Inspired Oxygen 12/20/24 10:00 12/20/24 10:10 12/20/24 10:11 Temperature 101.6 F H Pulse Rate 141 H 140 H 141 H Respiratory Rate 16 Blood Pressure 98/67 L 98/67 L Pulse Oximetry 97 Oxygen Delivery Fraction of Inspired Oxygen 12/20/24 10:54 12/20/24 11:13 12/20/24 11:17 Temperature Pulse Rate 107 H 107 H 105 H Respiratory Rate Blood Pressure 98/55 L 84/49 L Pulse Oximetry 95 Oxygen Delivery Mechanical Ventilation Fraction of Inspired Oxygen 30 12/20/24 11:22 12/20/24 11:58 12/20/24 12:00 Temperature 101.9 F H 101.8 F H Pulse Rate 103 H Respiratory Rate 16 Blood Pressure 110/60 Pulse Oximetry 96 Oxygen Delivery Fraction of Inspired Oxygen 30 12/20/24 12:00 Temperature Pulse Rate 149 H Respiratory Rate 19 Blood Pressure Pulse Oximetry 98 Oxygen Delivery Mechanical Ventilation Fraction of Inspired Oxygen 30 Intake/Output Intake/Output: Intake & Output 12/17/24 12/18/24 12/19/24 12/20/24 23:59 23:59 23:59 23:59 Intake Total 984.6 1825.3 2324.3 933.7 Output Total 1725 3400 2428 915 Balance -740.4 -1574.7 -103.7 18.7 Meds/Results Medications: Active Medications Generic Name Dose Route Start Last Admin Trade Name Freq PRN Reason Stop Dose Admin Acetaminophen 650 mg 12/14/24 20:56 12/20/24 11:22 Acetaminophen 325 Mg Tablet PO 650 mg Q4H PRN Administration Mild Pain (1-3) or Fever Albuterol/Ipratropium 3 ml 12/15/24 02:00 12/20/24 08:03 Ipratropium 0.5 Mg/Albuterol Sulfate 2.5 Mg Ampul.Neb 3 Ml INHALATION 3 ml Q6HRT REJI Administration Aspirin 81 mg 12/17/24 09:00 12/20/24 08:35 Aspirin 81 Mg Chewable Tablet PO 81 mg DAILY REJI Administration Dextrose 12.5 gm 12/17/24 08:17 Dextrose 50% 25 Gm/50 Ml Syringe IV PUSH PRN PRN Hypoglycemia Protocol Empagliflozin 10 mg 12/15/24 09:00 12/20/24 08:35 Empagliflozin 10 Mg Tablet PO 10 mg DAILY REJI Administration Enoxaparin Sodium 40 mg 12/15/24 09:00 12/18/24 08:36 Enoxaparin 40 Mg/0.4 Ml Syringe SUB-Q 40 mg DAILY REJI Administration Furosemide 40 mg 12/15/24 09:00 12/20/24 08:35 Furosemide Inj 40 Mg/4 Ml Vial IV PUSH 40 mg Q12HR REJI Administration Glucagon 1 mg 12/17/24 08:17 Glucagon For Inj 1 Mg Vial IM PRN PRN Hypoglycemia Protocol Glucose 15 gm 12/17/24 08:17 Glucose Oral Gel 15 Gm Of Glucse In 37.5 Gm Tube PO PRN PRN Hypoglycemia Protocol Heparin Sodium (Porcine) 5,500 units 12/20/24 10:07 Heparin Sodium 5,000 Units/Ml Vial IV PUSH PRN PRN aPTT less than 55 seconds Heparin Sodium (Porcine) 3,000 units 12/20/24 10:07 Heparin Sodium 5,000 Units/Ml Vial IV PUSH PRN PRN aPTT 55 - 70 seconds Fentanyl Citrate 2,500 mcg in 250 mls @ 5 mls/hr 12/17/24 00:05 12/20/24 09:50 Fentanyl 2,500 Mcg/Ns 250 Ml IV CONT 50 mcg/hr .Q50H REJI 5 mls/hr Titration Protocol 50 MCG/HR Norepinephrine Bitartrate 8 mg in 250 mls @ 11.25 mls/hr 12/17/24 01:05 12/20/24 08:48 Levophed 8 Mg/D5w 250 Ml IV CONT 6 mcg/min .[id number] REJI 11.25 mls/hr Titration Protocol 6 MCG/MIN Dextrose 1,000 mls @ 100 mls/hr 12/17/24 08:17 Dextrose 5% 1,000 Ml IVPB PRN PRN Hypoglycemia Protocol Piperacillin Sod/Tazobactam 50 mls @ 100 mls/hr 12/19/24 15:00 12/20/24 08:35 Sod 3.375 gm/ Sodium Chloride IVPB 100 mls/hr Q6H REJI Administration Midazolam HCl 100 mg in 100 mls @ 3 mls/hr 12/20/24 06:00 12/20/24 08:21 Versed 100 Mg/Ns 100 Ml IV CONT 3 mg/hr .[id number] REJI 3 mls/hr Titration Protocol 3 MG/HR Heparin Sodium/Dextrose 25,000 units in 250 mls @ 13 mls/hr 12/20/24 10:00 12/20/24 11:11 Heparin Sodium/D5w 100 Units/Ml IV CONT 1,300 units/hr .[id number] REJI 13 mls/hr Administration Protocol 1,300 UNITS/HR Amiodarone HCl/Dextrose 360 mg in 200 mls @ 33.333 mls/hr 12/20/24 09:36 12/20/24 10:10 Nexterone 360 Mg/D5w 200 Ml IV CONT 12/20/24 15:35 1 mg/min .Q6H ONE 33.33 mls/hr Administration Protocol 1 MG/MIN Amiodarone HCl/Dextrose 360 mg in 200 mls @ 16.667 mls/hr 12/20/24 15:36 Nexterone 360 Mg/D5w 200 Ml IV CONT 12/21/24 15:35 .Q12H REJI Protocol 0.5 MG/MIN Vancomycin HCl 1,500 mg in 500 mls @ 250 mls/hr 12/20/24 10:00 12/20/24 11:13 Vancomycin 1,500 Mg/Ns 500 Ml IVPB 250 mls/hr Q12H REJI Administration Phenylephrine HCl 50 mg/ 250 mls @ 21 mls/hr 12/20/24 10:25 12/20/24 11:17 Sodium Chloride IV CONT 70 mcg/min .[id number] REJI 21 mls/hr Titration Protocol 70 MCG/MIN Insulin Aspart 3 - 6 units 12/17/24 12:00 12/20/24 06:27 Insulin Aspart (*Bkc) 100 Units/Ml SUB-Q Not Given Q6HR REJI Protocol Levalbuterol HCl 0.63 mg 12/20/24 14:00 Levalbuterol Neb 1.25 Mg/3 Ml INHALATION Q6HRT REJI Multi-Ingred Cream/Lotion/Oil/Oint 1 applic 12/17/24 09:00 12/20/24 08:35 Mineral Oil/White Petrolatum Ointment EACH EYE 1 applic Q12HR REJI Administration Pantoprazole Sodium 40 mg 12/17/24 09:00 12/20/24 08:35 Pantoprazole Sodium Iv 40 Mg Vial IV PUSH 40 mg DAILY REJI Administration Rosuvastatin Calcium 10 mg 12/15/24 09:00 12/20/24 08:35 Rosuvastatin 10 Mg Tablet PO 10 mg QAM REJI Administration Sacubitril/Valsartan 1 tab 12/15/24 09:00 12/16/24 21:45 Sacubitril/Valsartan 24-26 Mg Tablet PO 1 tab Q12HR REJI Administration Sodium Chloride 10 ml 12/17/24 06:00 12/20/24 06:28 Central Line Flush IV PUSH 10 ml Q8HR REJI Administration Sodium Chloride 20 ml 12/17/24 00:05 12/18/24 05:40 Central Line Flush IV PUSH 20 ml PRN PRN Administration after blood draws Radiology Results: ITS Impressions Chest CTA 12/16/24 13:43 IMPRESSION: No pulmonary embolus. No thoracic aortic dissection. Findings suggesting congestive failure, with large bilateral pleural effusions and intra-abdominal ascites. Abdomen X-Ray 12/17/24 07:07 IMPRESSION: Orogastric tube in good position and ready for immediate use. Remainder of examination is unchanged Head CT 12/17/24 07:09 Impression: No acute intracranial hemorrhage or suspicious mass effect. Chest/Abdomen/Pelvis CTA 12/17/24 07:41 IMPRESSION: No pulmonary embolus. No aortic dissection. Increasing bilateral pleural effusions with adjacent compressive atelectasis. Rim-enhancing fluid collection along the anterior abdominal wall measuring denser than simple fluid for which a perioperative seroma versus abscess (less likely) is suspected. Focused ultrasound may be performed for further evaluation. Venous Doppler Study 12/18/24 11:04 IMPRESSION: 1. No deep venous thrombosis. Thoracentesis Ultrasound 12/19/24 16:47 IMPRESSION: 1. Successful ultrasound-guided thoracentesis yielding 1000 mL of yellow fluid. Abscess Drainage Ultrasound 12/19/24 16:49 IMPRESSION: 1. Successful ultrasound-guided percutaneous abscess drain placement into a 6.7 x 1.7 x 6.7 cm complex subcutaneous fluid collection situated between the umbilicus and the ventral hernia mesh repair. Sonographic appearance of the fluid collection and the correlation and clarity of the aspirated fluid would favor evolving hematoma over abscess but would correlate with results from the Gram stain and cultures. The catheter will be managed by Dr. Villasenor. Chest X-Ray 12/20/24 05:49 Impression: Mild pulmonary edema with small left pleural effusion and left basilar atelectatic change. Support tubes, as above. Labs Labs: Laboratory Results - last 24 hr 12/19/24 12/20/24 12/20/24 17:04 05:02 09:24 WBC 13.8 H RBC 4.64 Hgb 11.6 L Hct 39.9 L MCV 86.0 MCH 25.0 L MCHC 29.1 L RDW 18.8 H Plt Count 202 MPV 9.6 Immature Gran % (Auto) 0.4 Neut % (Auto) 82.0 H Lymph % (Auto) 7.6 L [place] % (Auto) 9.3 H Eos % (Auto) 0.4 Baso % (Auto) 0.3 Lymph # (Auto) 1.05 [place] # (Auto) 1.3 H Eos # (Auto) 0.1 Baso # (Auto) 0.0 Abs Immat Gran (auto) 0.05 H Absolute Neuts (auto) 11.3 H Absolute Nucleated RBC 0.000 Band Neutrophils % Not Reportable Nucleated RBC % 0.0 Platelet Estimate Adequate Hypochromasia 1+ Anisocytosis Schistocytes None seen PT 15.7 H INR 1.3 APTT 35.0 Puncture Site Right brachial ABG pH 7.361 ABG pCO2 55.8 H ABG pO2 73.9 L ABG PO2/FiO2 Ratio 2.46 ABG HCO3 30.9 H ABG O2 Saturation 94.1 L ABG O2 Content 18.5 ABG Base Excess 4.0 A-a Gradient 74.4 Oxyhemoglobin 92.8 Carboxyhemoglobin 1.2 Methemoglobin 0.1 Reduced Hemoglobin 5.9 H Total Hemoglobin 14.2 O2 Delivery Device Ventilator O2 Liters/Min Not Reportable Minute Volume Not Reportable Vent Rate 16 Vent Mode Cmv FiO2 30 Tidal Volume 420 PEEP 8 Peak Inspir Pressure Not Reportable Pressure Support Not Reportable Sodium 144 Potassium 3.7 Chloride 102 Carbon Dioxide 34 H Anion Gap 8 BUN 23 H Creatinine 0.90 Estim Creat Clear Calc 56 Estimated GFR > 60 Glucose 133 H POC Capillary Glucose 103 Calcium 8.4 Phosphorus 3.4 Total Bilirubin 0.8 AST 55 ALT 45 Alkaline Phosphatase 80 Total Protein 6.7 Albumin 3.3 L Vancomycin Trough 8.2 L 12/20/24 10:35 WBC 19.2 H RBC 4.62 Hgb 11.6 L Hct 39.9 L MCV 86.4 MCH 25.1 L MCHC 29.1 L RDW 18.6 H Plt Count 207 MPV 10.2 Immature Gran % (Auto) 0.8 H Neut % (Auto) 84.6 H Lymph % (Auto) 6.2 L [place] % (Auto) 8.2 Eos % (Auto) 0.0 Baso % (Auto) 0.2 Lymph # (Auto) 1.18 [place] # (Auto) 1.6 H Eos # (Auto) 0.0 Baso # (Auto) 0.0 Abs Immat Gran (auto) 0.16 H Absolute Neuts (auto) 16.2 H Absolute Nucleated RBC 0.000 Band Neutrophils % Not Reportable Nucleated RBC % 0.0 Platelet Estimate Adequate Hypochromasia 1+ Anisocytosis 1+ Schistocytes None seen PT 15.8 H INR 1.3 APTT 34.1 Puncture Site ABG pH ABG pCO2 ABG pO2 ABG PO2/FiO2 Ratio ABG HCO3 ABG O2 Saturation ABG O2 Content ABG Base Excess A-a Gradient Oxyhemoglobin Carboxyhemoglobin Methemoglobin Reduced Hemoglobin Total Hemoglobin O2 Delivery Device O2 Liters/Min Minute Volume Vent Rate Vent Mode FiO2 Tidal Volume PEEP Peak Inspir Pressure Pressure Support Sodium Potassium Chloride Carbon Dioxide Anion Gap BUN Creatinine Estim Creat Clear Calc Estimated GFR Glucose POC Capillary Glucose Calcium Phosphorus Total Bilirubin AST ALT Alkaline Phosphatase Total Protein Albumin Vancomycin Trough
--- NOTE | 2024-12-20 13:45 | PM.IMPN ---
Progress Note: A&P Assessment and Plan (1) Acute hypoxic respiratory failure: Code(s): J96.01 - Acute respiratory failure with hypoxia Status: Acute Assessment and Plan: Acute Respiratory failure secondary to congestive heart failure leading to pleural effusions and pulmonary edema. Patient also has bilateral atelectasis with questionable pneumonia 12/16 intubated and placed on mechanical ventilation CTA chest 12/17 IMPRESSION: No pulmonary embolus. No aortic dissection. Increasing bilateral pleural effusions with adjacent compressive atelectasis. Rim-enhancing fluid collection along the anterior abdominal wall measuring denser than simple fluid for which a perioperative seroma versus abscess (less likely) is suspected. Focused ultrasound may be performed for further evaluation. Continue full mechanical ventilation support to prevent hypoxemia/hypercarbia and end organ damage. ABG reviewed and continue CMV at tidal volume 420 rate 16 FiO2 40% and peep of 8 Continue Lasix for diuresis Consulted IR for thoracentesis starting with the left side. Plan for 12/18 Bronchodilators procalcitonin level was 0.4. Continue Zosyn azithromycin and add vancomycin due to positive MRSA on nasal screen Blood cultures were done on 12/14 and 12/16 for and have been negative Check sputum culture (2) Shock: Code(s): R57.9 - Shock, unspecified Status: Acute Assessment and Plan: Multifactorial. Likely secondary combination of sedation, questionable sepsis,? Cardiogenic Continue Levophed titration to maintain mean arterial pressure. (3) Acute exacerbation of CHF (congestive heart failure): Qualifiers: Heart failure type: combined systolic and diastolic Qualified Code(s): I50.43 - Acute on chronic combined systolic (congestive) and diastolic (congestive) heart failure Code(s): I50.9 - Heart failure, unspecified Status: Acute Assessment and Plan: Patient was recently diagnosed with congestive heart failure with EF of 40-45% and diastolic dysfunction. He was discharged on multiple medications but unfortunately was not taking any and was taking low-dose Lasix. Now presented with congestive heart failure with lower extremity edema pull effusions which has been gradually getting worse now leading to intubation and mechanical ventilation I will hold Entresto beta-garret due to hypotension Continue Levophed for ionotropic and blood pressure support Continue Lasix for diuresis Echo Summary 1. Left ventricular chamber dimension is moderately enlarged. 2. Left ventricular systolic function is moderately reduced, estimated at 30-35. 3. There is mildly increased left ventricular wall thickness. 4. The left ventricular diastolic function is abnormal. 5. Right ventricular chamber dimension is mildly enlarged. 6. Right ventricular systolic function is reduced. 7. Left atrial chamber dimension is mildly enlarged. 8. Right atrial chamber dimension is mildly enlarged. 9. There is severe mitral valve regurgitation. 10. There is severe tricuspid valve regurgitation. 11. Moderate pulmonary hypertension, estimated pulmonary arterial systolic pressure is 53 mmHg. (4) Elevated troponin: Code(s): R79.89 - Other specified abnormal findings of blood chemistry Status: Acute Assessment and Plan: Chronically elevated troponin levels. Will discuss with Cardiology regarding workup for ischemic coronary disease Currently on aspirin Patient was not reporting any chest pain during the hospitalization prior to intubation (5) Atrial fibrillation: Qualifiers: Atrial fibrillation type: unspecified Qualified Code(s): I48.91 - Unspecified atrial fibrillation Code(s): I48.91 - Unspecified atrial fibrillation Status: Chronic Assessment and Plan: History of AFib in the chart but none of the past EKGs have shown AFib and also currently in sinus rhythm (6) Hyperlipidemia: Code(s): E78.5 - Hyperlipidemia, unspecified Status: Chronic Assessment and Plan: Continue statin (7) Bilateral pleural effusion: Code(s): J90 - Pleural effusion, not elsewhere classified Status: Acute Assessment and Plan: See above (8) Pneumonia: Qualifiers: Laterality: bilateral Lung location: lower lobe of lung Pneumonia type: due to unspecified organism Qualified Code(s): J18.9 - Pneumonia, unspecified organism Code(s): J18.9 - Pneumonia, unspecified organism Status: Acute Assessment and Plan: See above (9) Substance abuse: Code(s): F19.10 - Other psychoactive substance abuse, uncomplicated Status: Chronic Assessment and Plan: Long History of drug abuse including cocaine could be the etiology of his congestive heart failure. (10) Abdominal fluid collection: Code(s): R18.8 - Other ascites Status: Acute Assessment and Plan: CT scan of the abdomen shows Rim-enhancing fluid collection along the anterior abdominal wall measuring denser than simple fluid for which a perioperative seroma versus abscess (less likely) is suspected. Focused ultrasound may be performed for further evaluation.. Patient had abdominal surgery for umbilical hernia and small-bowel obstruction Patient was evaluated by General surgery and surgeon feels that this is likely a seroma. Ultrasound-guided drainage ordered and plan for tomorrow Continue antibiotics as above (11) Lower extremity edema: Code(s): R60.0 - Localized edema Status: Acute Assessment and Plan: Likely secondary to congestive heart failure. Will obtain venous Dopplers to rule out DVT as edema is asymmetric Plan patient presented with dyspnea was found to have b/l pleural effusion, and patient was diuresed with IV lasix 40MG BID however patient went to respiratory failure and patient was intubated, cardiac echo showed moderately reduced left ventricular systolic dysfunction, seen by the organ teacher suspect patient has acute on chronic systolic heart failure. recommended to continue to diuresed the patient. on 12/19 patient had thoracentesis, and 1000cc yellow fluid was collected, ph of the fluid is 7.44 and pleural Nuc cells are 441 within normal limits suggesting transudate from CHF, patient has swelling along abdomen, seen by surgery suspect has seroma, fluid is sent for culture, patient is being diuresed, patient is seen by the incident response consultant. patient son is present in the room. DVT prophylaxis -Lovenox Stress ulcer prophylaxis -PPI Nutrition -continue Tube Feeds Code Status - Full Code Subjective Date/time seen: 12/20/24 13:45 Interval history: 74-year-old male patient with past medical history of HF, EMR documented AFib, substance abuse, HTN, HLP, sleep apnea, vit-D deficiency and alcoholic cirrhosis of liver with complaints of having edema to the bilateral lower extremities and dyspnea on exertion for the past couple of weeks. 12/16/2024 Patient sitting comfortably in bed at time of examination. Rapid response called last night for sudden diaphoresis and dyspnea. D-dimer 3.15, CTA ordered and pending. Lactic acid initially elevated ,4.4, but subsequently decreased to 1.4. Trop (-). Repeat BCs pending. EKG sinus, rbbb (seen previously on 12/14). Pt seen in am, denies any chest pain, SOB, n/v, or abdominal pain. States he just felt very dyspneic and sweaty last night, but feels fine right now. Will continue to monitor CTA/blood work. patient presented with dyspnea was found to have b/l pleural effusion, and patient was diuresed with IV lasix 40MG BID however patient went to respiratory failure and patient was intubated, cardiac echo showed moderately reduced left ventricular systolic dysfunction, seen by the organ teacher suspect patient has acute on chronic systolic heart failure. recommended to continue to diuresed the patient. on 12/19 patient had thoracentesis, and 1000cc yellow fluid was collected, ph of the fluid is 7.44 and pleural Nuc cells are 441 within normal limits suggesting transudate from CHF, patient has swelling along abdomen, seen by surgery suspect has seroma, fluid is sent for culture, patient is being diuresed, patient is seen by the incident response consultant. patient son is present in the room. Review of Systems Review of Systems: ROS unobtainable: Yes unobtainable due to endotracheal tube Exam Narrative: Patient is comfortable, NAD HEENT: ET tube in place LUNGS:CTA HEART: RR S1S2 ABD: BS+, Soft and nontender Lower extremities: no edema SKIN: nonjaundiced Neuro: Intubated and sedated Objective Data Vital Signs Vital Signs: Vital Signs - 24 hr 12/19/24 13:59 12/19/24 14:00 12/19/24 14:00 Temperature Pulse Rate 93 93 93 Respiratory Rate 16 16 Blood Pressure 98/69 L Pulse Oximetry Oxygen Delivery Fraction of Inspired Oxygen 12/19/24 14:00 12/19/24 14:00 12/19/24 14:00 Temperature 37.8 C H Pulse Rate 93 93 93 Respiratory Rate 16 16 Blood Pressure 98/69 L Pulse Oximetry 99 Oxygen Delivery Fraction of Inspired Oxygen 12/19/24 14:03 12/19/24 14:30 12/19/24 14:45 Temperature Pulse Rate 93 93 93 Respiratory Rate Blood Pressure 108/70 99/69 L Pulse Oximetry 99 Oxygen Delivery Mechanical Ventilation Fraction of Inspired Oxygen 40 12/19/24 16:00 12/19/24 16:00 12/19/24 16:00 Temperature Pulse Rate 93 93 93 Respiratory Rate 16 16 Blood Pressure 98/70 L Pulse Oximetry Oxygen Delivery Fraction of Inspired Oxygen 12/19/24 16:00 12/19/24 16:00 12/19/24 16:00 Temperature 37.7 C H Pulse Rate 94 Respiratory Rate 16 Blood Pressure 94/64 L Pulse Oximetry 99 Oxygen Delivery Mechanical Ventilation Fraction of Inspired Oxygen 40 40 12/19/24 16:00 12/19/24 17:51 12/19/24 18:00 Temperature Pulse Rate 94 93 94 Respiratory Rate 8 L Blood Pressure Pulse Oximetry 99 Oxygen Delivery Mechanical Ventilation Fraction of Inspired Oxygen 40 12/19/24 18:00 12/19/24 18:00 12/19/24 18:00 Temperature 37.7 C H Pulse Rate 94 94 94 Respiratory Rate 8 L 8 L Blood Pressure 95/64 L Pulse Oximetry 99 Oxygen Delivery Fraction of Inspired Oxygen 12/19/24 18:00 12/19/24 18:15 12/19/24 19:24 Temperature 37.7 C H Pulse Rate 94 94 Respiratory Rate Blood Pressure 96/66 L 83/59 L Pulse Oximetry Oxygen Delivery Fraction of Inspired Oxygen 12/19/24 20:00 12/19/24 20:00 12/19/24 20:00 Temperature Pulse Rate 108 H 108 H Respiratory Rate 16 Blood Pressure Pulse Oximetry 98 Oxygen Delivery Mechanical Ventilation Fraction of Inspired Oxygen 35 35 12/19/24 20:00 12/19/24 20:00 12/19/24 20:00 Temperature 37.7 C H Pulse Rate 108 H 108 H 108 H Respiratory Rate 16 16 Blood Pressure 110/55 L 110/55 L Pulse Oximetry 98 Oxygen Delivery Fraction of Inspired Oxygen 12/19/24 20:24 12/19/24 20:25 12/19/24 20:25 Temperature 37.7 C H Pulse Rate 104 H 108 H Respiratory Rate 16 Blood Pressure Pulse Oximetry 98 Oxygen Delivery Mechanical Ventilation Fraction of Inspired Oxygen 40 12/19/24 20:35 12/19/24 20:51 12/19/24 22:00 Temperature Pulse Rate 103 H 108 H 119 H Respiratory Rate 16 16 16 Blood Pressure Pulse Oximetry Oxygen Delivery Fraction of Inspired Oxygen 12/19/24 22:00 12/19/24 22:00 12/19/24 22:00 Temperature Pulse Rate 108 H 108 H 142 H Respiratory Rate 16 Blood Pressure 85/54 L Pulse Oximetry Oxygen Delivery Fraction of Inspired Oxygen 12/19/24 22:00 12/19/24 22:41 12/19/24 23:10 Temperature 37.6 C Pulse Rate 142 H 144 H 106 H Respiratory Rate 16 Blood Pressure 85/54 L Pulse Oximetry 97 98 Oxygen Delivery Mechanical Ventilation Fraction of Inspired Oxygen 35 12/20/24 00:00 12/20/24 00:00 12/20/24 00:00 Temperature Pulse Rate 114 H 114 H Respiratory Rate 16 Blood Pressure Pulse Oximetry 97 Oxygen Delivery Mechanical Ventilation Fraction of Inspired Oxygen 30 30 12/20/24 00:00 12/20/24 00:00 12/20/24 00:00 Temperature 37.7 C H Pulse Rate 114 H 114 H 114 H Respiratory Rate 16 16 Blood Pressure 110/52 L 110/52 L Pulse Oximetry 96 Oxygen Delivery Fraction of Inspired Oxygen 12/20/24 00:00 12/20/24 02:00 12/20/24 02:00 Temperature Pulse Rate 114 H 142 H 142 H Respiratory Rate 16 16 Blood Pressure 91/63 L Pulse Oximetry Oxygen Delivery Fraction of Inspired Oxygen 12/20/24 02:00 12/20/24 02:00 12/20/24 02:09 Temperature 37.9 C H Pulse Rate 142 H 142 H 142 H Respiratory Rate 16 16 Blood Pressure 91/63 L Pulse Oximetry 97 Oxygen Delivery Fraction of Inspired Oxygen 12/20/24 02:22 12/20/24 02:22 12/20/24 02:31 Temperature Pulse Rate 119 H 118 H 118 H Respiratory Rate 16 16 Blood Pressure Pulse Oximetry 98 Oxygen Delivery Mechanical Ventilation Fraction of Inspired Oxygen 30 12/20/24 04:00 12/20/24 04:00 12/20/24 04:00 Temperature Pulse Rate 149 H 149 H 149 H Respiratory Rate 16 19 Blood Pressure 118/72 Pulse Oximetry Oxygen Delivery Fraction of Inspired Oxygen 12/20/24 04:00 12/20/24 04:00 12/20/24 04:00 Temperature Pulse Rate 149 H 149 H Respiratory Rate 19 Blood Pressure Pulse Oximetry 98 Oxygen Delivery Mechanical Ventilation Fraction of Inspired Oxygen 30 30 12/20/24 04:00 12/20/24 04:38 12/20/24 05:05 Temperature 38.4 C H Pulse Rate 149 H 145 H 145 H Respiratory Rate 16 16 Blood Pressure 118/72 Pulse Oximetry 98 96 Oxygen Delivery Mechanical Ventilation Fraction of Inspired Oxygen 30 12/20/24 05:15 12/20/24 05:39 12/20/24 06:00 Temperature 38.8 C H Pulse Rate 145 H 144 H Respiratory Rate 16 Blood Pressure Pulse Oximetry Oxygen Delivery Fraction of Inspired Oxygen 12/20/24 06:00 12/20/24 06:00 12/20/24 06:00 Temperature 39.1 C H Pulse Rate 144 H 144 H 144 H Respiratory Rate 16 16 Blood Pressure 106/66 106/66 Pulse Oximetry 94 Oxygen Delivery Fraction of Inspired Oxygen 12/20/24 06:00 12/20/24 06:28 12/20/24 07:47 Temperature 39.1 C H 39.1 C H Pulse Rate 144 H 143 H Respiratory Rate 19 16 Blood Pressure 93/73 L Pulse Oximetry 95 Oxygen Delivery Fraction of Inspired Oxygen 12/20/24 08:00 12/20/24 08:00 12/20/24 08:00 Temperature Pulse Rate 144 H 149 H Respiratory Rate 19 Blood Pressure 97/68 L Pulse Oximetry 98 Oxygen Delivery Mechanical Ventilation Fraction of Inspired Oxygen 30 30 12/20/24 08:04 12/20/24 08:12 12/20/24 08:14 Temperature Pulse Rate 142 H 143 H 142 H Respiratory Rate 16 16 Blood Pressure Pulse Oximetry 95 Oxygen Delivery Mechanical Ventilation Fraction of Inspired Oxygen 30 12/20/24 08:21 12/20/24 08:21 12/20/24 08:27 Temperature Pulse Rate 143 H 143 H 143 H Respiratory Rate 16 16 Blood Pressure Pulse Oximetry Oxygen Delivery Fraction of Inspired Oxygen 12/20/24 08:44 12/20/24 08:48 12/20/24 09:50 Temperature Pulse Rate 104 H 105 H 125 H Respiratory Rate 16 Blood Pressure 80/45 L 60/50 L Pulse Oximetry Oxygen Delivery Fraction of Inspired Oxygen 12/20/24 09:50 12/20/24 10:00 12/20/24 10:10 Temperature 38.7 C H Pulse Rate 121 H 141 H 140 H Respiratory Rate 18 16 Blood Pressure 98/67 L 98/67 L Pulse Oximetry 97 Oxygen Delivery Fraction of Inspired Oxygen 12/20/24 10:11 12/20/24 10:54 12/20/24 11:13 Temperature Pulse Rate 141 H 107 H 107 H Respiratory Rate Blood Pressure 98/55 L Pulse Oximetry 95 Oxygen Delivery Mechanical Ventilation Fraction of Inspired Oxygen 30 12/20/24 11:17 12/20/24 11:17 12/20/24 11:22 Temperature 38.8 C H Pulse Rate 105 H 111 H Respiratory Rate Blood Pressure 84/49 L Pulse Oximetry Oxygen Delivery Fraction of Inspired Oxygen 12/20/24 11:45 12/20/24 11:45 12/20/24 11:45 Temperature Pulse Rate 107 H 107 H 107 H Respiratory Rate 18 18 Blood Pressure 98/59 L Pulse Oximetry Oxygen Delivery Fraction of Inspired Oxygen 12/20/24 11:58 12/20/24 12:00 12/20/24 12:00 Temperature 38.8 C H Pulse Rate 103 H 149 H Respiratory Rate 16 19 Blood Pressure 110/60 Pulse Oximetry 96 98 Oxygen Delivery Mechanical Ventilation Fraction of Inspired Oxygen 30 30 12/20/24 13:31 12/20/24 13:33 12/20/24 13:37 Temperature Pulse Rate 95 94 94 Respiratory Rate 18 18 Blood Pressure Pulse Oximetry 98 Oxygen Delivery Mechanical Ventilation Fraction of Inspired Oxygen 30 12/20/24 13:37 12/20/24 13:37 12/20/24 13:37 Temperature Pulse Rate 96 95 96 Respiratory Rate 18 Blood Pressure 99/56 L 99/56 L Pulse Oximetry Oxygen Delivery Fraction of Inspired Oxygen 12/20/24 13:40 Temperature Pulse Rate 96 Respiratory Rate 18 Blood Pressure Pulse Oximetry Oxygen Delivery Fraction of Inspired Oxygen Intake/Output Intake/Output: Intake & Output 12/17/24 12/18/24 12/19/24 12/20/24 23:59 23:59 23:59 23:59 Intake Total 984.6 1825.3 2324.3 1137.0 Output Total 1725 3400 2428 915 Balance -740.4 -1574.7 -103.7 222.0 Meds/Results Medications: Active Medications Generic Name Dose Route Start Last Admin Trade Name Freq PRN Reason Stop Dose Admin Acetaminophen 650 mg 12/14/24 20:56 12/20/24 11:22 Acetaminophen 325 Mg Tablet PO 650 mg Q4H PRN Administration Mild Pain (1-3) or Fever Aspirin 81 mg 12/17/24 09:00 12/20/24 08:35 Aspirin 81 Mg Chewable Tablet PO 81 mg DAILY REJI Administration Dextrose 12.5 gm 12/17/24 08:17 Dextrose 50% 25 Gm/50 Ml Syringe IV PUSH PRN PRN Hypoglycemia Protocol Empagliflozin 10 mg 12/15/24 09:00 12/20/24 08:35 Empagliflozin 10 Mg Tablet PO 10 mg DAILY REJI Administration Enoxaparin Sodium 40 mg 12/15/24 09:00 12/18/24 08:36 Enoxaparin 40 Mg/0.4 Ml Syringe SUB-Q 40 mg DAILY REJI Administration Furosemide 40 mg 12/15/24 09:00 12/20/24 08:35 Furosemide Inj 40 Mg/4 Ml Vial IV PUSH 40 mg Q12HR REJI Administration Glucagon 1 mg 07/05/25 08:17 Glucagon For Inj 1 Mg Vial IM PRN PRN Hypoglycemia Protocol Glucose 15 gm 12/17/24 08:17 Glucose Oral Gel 15 Gm Of Glucse In 37.5 Gm Tube PO PRN PRN Hypoglycemia Protocol Heparin Sodium (Porcine) 5,500 units 12/20/24 10:07 Heparin Sodium 5,000 Units/Ml Vial IV PUSH PRN PRN aPTT less than 55 seconds Heparin Sodium (Porcine) 3,000 units 12/20/24 10:07 Heparin Sodium 5,000 Units/Ml Vial IV PUSH PRN PRN aPTT 55 - 70 seconds Fentanyl Citrate 2,500 mcg in 250 mls @ 5 mls/hr 12/17/24 00:05 12/20/24 13:37 Fentanyl 2,500 Mcg/Ns 250 Ml IV CONT 50 mcg/hr .Q50H REJI 5 mls/hr Titration Protocol 50 MCG/HR Norepinephrine Bitartrate 8 mg in 250 mls @ 11.25 mls/hr 12/17/24 01:05 12/20/24 11:17 Levophed 8 Mg/D5w 250 Ml IV CONT Infused .[id number] REJI Titration Protocol 6 MCG/MIN Dextrose 1,000 mls @ 100 mls/hr 12/17/24 08:17 Dextrose 5% 1,000 Ml IVPB PRN PRN Hypoglycemia Protocol Piperacillin Sod/Tazobactam 50 mls @ 100 mls/hr 12/19/24 15:00 12/20/24 08:35 Sod 3.375 gm/ Sodium Chloride IVPB 100 mls/hr Q6H REJI Administration Midazolam HCl 100 mg in 100 mls @ 3 mls/hr 12/20/24 06:00 12/20/24 13:37 Versed 100 Mg/Ns 100 Ml IV CONT 1 mg/hr .[id number] REJI 1 mls/hr Titration Protocol 3 MG/HR Heparin Sodium/Dextrose 25,000 units in 250 mls @ 13 mls/hr 12/20/24 10:00 12/20/24 11:11 Heparin Sodium/D5w 100 Units/Ml IV CONT 1,300 units/hr .[id number] REJI 13 mls/hr Administration Protocol 1,300 UNITS/HR Amiodarone HCl/Dextrose 360 mg in 200 mls @ 33.333 mls/hr 12/20/24 09:36 12/20/24 13:37 Nexterone 360 Mg/D5w 200 Ml IV CONT 12/20/24 15:35 1 mg/min .Q6H ONE 33.33 mls/hr Infusion Protocol 1 MG/MIN Amiodarone HCl/Dextrose 360 mg in 200 mls @ 16.667 mls/hr 12/20/24 15:36 Nexterone 360 Mg/D5w 200 Ml IV CONT 12/21/24 15:35 .Q12H REJI Protocol 0.5 MG/MIN Vancomycin HCl 1,500 mg in 500 mls @ 250 mls/hr 12/20/24 10:00 12/20/24 11:13 Vancomycin 1,500 Mg/Ns 500 Ml IVPB 250 mls/hr Q12H REJI Administration Phenylephrine HCl 50 mg/ 250 mls @ 21 mls/hr 12/20/24 10:25 12/20/24 13:37 Sodium Chloride IV CONT 70 mcg/min .[id number] REJI 21 mls/hr Titration Protocol 70 MCG/MIN Insulin Aspart 3 - 6 units 12/17/24 12:00 12/20/24 13:35 Insulin Aspart (*Bkc) 100 Units/Ml SUB-Q Not Given Q6HR REJI Protocol Ipratropium [place] 0.5 mg 12/20/24 14:00 Ipratropium Br 0.02% Inh Soln 0.5 Mg/2.5 Ml Vial INHALATION Q6HRT REJI Levalbuterol HCl 0.63 mg 12/20/24 14:00 12/20/24 13:29 Levalbuterol Neb 1.25 Mg/3 Ml INHALATION 0.63 mg Q6HRT REJI Administration Multi-Ingred Cream/Lotion/Oil/Oint 1 applic 12/17/24 09:00 12/20/24 08:35 Mineral Oil/White Petrolatum Ointment EACH EYE 1 applic Q12HR REJI Administration Pantoprazole Sodium 40 mg 12/17/24 09:00 12/20/24 08:35 Pantoprazole Sodium Iv 40 Mg Vial IV PUSH 40 mg DAILY REJI Administration Rosuvastatin Calcium 10 mg 12/15/24 09:00 12/20/24 08:35 Rosuvastatin 10 Mg Tablet PO 10 mg QAM REJI Administration Sacubitril/Valsartan 1 tab 12/15/24 09:00 12/16/24 21:45 Sacubitril/Valsartan 24-26 Mg Tablet PO 1 tab Q12HR REJI Administration Sodium Chloride 10 ml 12/17/24 06:00 12/20/24 13:36 Central Line Flush IV PUSH 10 ml Q8HR REJI Administration Sodium Chloride 20 ml 12/17/24 00:05 12/18/24 05:40 Central Line Flush IV PUSH 20 ml PRN PRN Administration after blood draws Radiology Results: ITS Impressions Chest CTA 12/16/24 13:43 IMPRESSION: No pulmonary embolus. No thoracic aortic dissection. Findings suggesting congestive failure, with large bilateral pleural effusions and intra-abdominal ascites. Abdomen X-Ray 12/17/24 07:07 IMPRESSION: Orogastric tube in good position and ready for immediate use. Remainder of examination is unchanged Head CT 12/17/24 07:09 Impression: No acute intracranial hemorrhage or suspicious mass effect. Chest/Abdomen/Pelvis CTA 12/17/24 07:41 IMPRESSION: No pulmonary embolus. No aortic dissection. Increasing bilateral pleural effusions with adjacent compressive atelectasis. Rim-enhancing fluid collection along the anterior abdominal wall measuring denser than simple fluid for which a perioperative seroma versus abscess (less likely) is suspected. Focused ultrasound may be performed for further evaluation. Venous Doppler Study 12/18/24 11:04 IMPRESSION: 1. No deep venous thrombosis. Thoracentesis Ultrasound 12/19/24 16:47 IMPRESSION: 1. Successful ultrasound-guided thoracentesis yielding 1000 mL of yellow fluid. Abscess Drainage Ultrasound 12/19/24 16:49 IMPRESSION: 1. Successful ultrasound-guided percutaneous abscess drain placement into a 6.7 x 1.7 x 6.7 cm complex subcutaneous fluid collection situated between the umbilicus and the ventral hernia mesh repair. Sonographic appearance of the fluid collection and the correlation and clarity of the aspirated fluid would favor evolving hematoma over abscess but would correlate with results from the Gram stain and cultures. The catheter will be managed by Dr. Villasenor. Chest X-Ray 12/20/24 05:49 Impression: Mild pulmonary edema with small left pleural effusion and left basilar atelectatic change. Support tubes, as above. Labs Labs: Laboratory Results - last 24 hr 12/19/24 12/20/24 12/20/24 17:04 05:02 09:24 WBC 13.8 H RBC 4.64 Hgb 11.6 L Hct 39.9 L MCV 86.0 MCH 25.0 L MCHC 29.1 L RDW 18.8 H Plt Count 202 MPV 9.6 Immature Gran % (Auto) 0.4 Neut % (Auto) 82.0 H Lymph % (Auto) 7.6 L [place] % (Auto) 9.3 H Eos % (Auto) 0.4 Baso % (Auto) 0.3 Lymph # (Auto) 1.05 [place] # (Auto) 1.3 H Eos # (Auto) 0.1 Baso # (Auto) 0.0 Abs Immat Gran (auto) 0.05 H Absolute Neuts (auto) 11.3 H Absolute Nucleated RBC 0.000 Band Neutrophils % Not Reportable Nucleated RBC % 0.0 Platelet Estimate Adequate Hypochromasia 1+ Anisocytosis Schistocytes None seen PT 15.7 H INR 1.3 APTT 35.0 Puncture Site Right brachial ABG pH 7.361 ABG pCO2 55.8 H ABG pO2 73.9 L ABG PO2/FiO2 Ratio 2.46 ABG HCO3 30.9 H ABG O2 Saturation 94.1 L ABG O2 Content 18.5 ABG Base Excess 4.0 A-a Gradient 74.4 Oxyhemoglobin 92.8 Carboxyhemoglobin 1.2 Methemoglobin 0.1 Reduced Hemoglobin 5.9 H Total Hemoglobin 14.2 O2 Delivery Device Ventilator O2 Liters/Min Not Reportable Minute Volume Not Reportable Vent Rate 16 Vent Mode Cmv FiO2 30 Tidal Volume 420 PEEP 8 Peak Inspir Pressure Not Reportable Pressure Support Not Reportable Sodium 144 Potassium 3.7 Chloride 102 Carbon Dioxide 34 H Anion Gap 8 BUN 23 H Creatinine 0.90 Estim Creat Clear Calc 56 Estimated GFR > 60 Glucose 133 H POC Capillary Glucose 103 Calcium 8.4 Phosphorus 3.4 Total Bilirubin 0.8 AST 55 ALT 45 Alkaline Phosphatase 80 Total Protein 6.7 Albumin 3.3 L Vancomycin Trough 8.2 L 12/20/24 12/20/24 10:35 13:37 WBC 19.2 H RBC 4.62 Hgb 11.6 L Hct 39.9 L MCV 86.4 MCH 25.1 L MCHC 29.1 L RDW 18.6 H Plt Count 207 MPV 10.2 Immature Gran % (Auto) 0.8 H Neut % (Auto) 84.6 H Lymph % (Auto) 6.2 L [place] % (Auto) 8.2 Eos % (Auto) 0.0 Baso % (Auto) 0.2 Lymph # (Auto) 1.18 [place] # (Auto) 1.6 H Eos # (Auto) 0.0 Baso # (Auto) 0.0 Abs Immat Gran (auto) 0.16 H Absolute Neuts (auto) 16.2 H Absolute Nucleated RBC 0.000 Band Neutrophils % Not Reportable Nucleated RBC % 0.0 Platelet Estimate Adequate Hypochromasia 1+ Anisocytosis 1+ Schistocytes None seen PT 15.8 H INR 1.3 APTT 34.1 Puncture Site ABG pH ABG pCO2 ABG pO2 ABG PO2/FiO2 Ratio ABG HCO3 ABG O2 Saturation ABG O2 Content ABG Base Excess A-a Gradient Oxyhemoglobin Carboxyhemoglobin Methemoglobin Reduced Hemoglobin Total Hemoglobin O2 Delivery Device O2 Liters/Min Minute Volume Vent Rate Vent Mode FiO2 Tidal Volume PEEP Peak Inspir Pressure Pressure Support Sodium Potassium Chloride Carbon Dioxide Anion Gap BUN Creatinine Estim Creat Clear Calc Estimated GFR Glucose POC Capillary Glucose 190 H Calcium Phosphorus Total Bilirubin AST ALT Alkaline Phosphatase Total Protein Albumin Vancomycin Trough Quality VTE Prophylaxis VTE prophylaxis: pharmacologic ordered
[2024-12-20] MEDS: IPRATROPIUM BR 0.02% INH SOLN 0.5 MG/2.5 ML VIAL INHALATION (19:43)
[2024-12-20 19:44] LABS: Partial Thromboplastin Time 132.8 Seconds (22.3-36.8)
[2024-12-21] VITALS (38 sets, daily range): BP systolic 92–153; BP diastolic 48–88; PULSE 92–130; RESP 15–23; TEMP 37.3–38.2; O2SAT 96–100
[2024-12-21] MEDS: IPRATROPIUM BR 0.02% INH SOLN 0.5 MG/2.5 ML VIAL INHALATION ×4 (01:37→20:24)
[2024-12-21] MEDS: PIPERACILLIN/TAZOBACTAM SOD 3.375 GM in SODIUM CHLORIDE 0.9% IV 50 ML 100 ML IVPB ×2 (03:16→09:53)
[2024-12-21 03:17] LABS: Hematocrit 36.8 % (42.0-52.0); Hemoglobin 10.8 g/dL (14.0-18.0); Immature Granulocyte Percent A 0.5 % (0-0.5); Lymphocytes Absolute Auto 1.70 K/mm3 (0.9-3.2); Mean Corpuscular HGB Conc 29.3 g/dl (32-36); Mean Corpuscular Hemoglobin 24.9 pg (26-34); Mean Corpuscular Volume 85.0 fl (80-100); Nucleated Red Blood Cells Absolute Auto 0.000 K/mm3 (0.0-0.012); Nucleated Red Blood Cells Perc 0.0 % (0.0-0.2); Platelet Count Result 184 k/mm3 (150-375); Red Blood Count 4.33 M/mm3 (4.6-6.20); White Blood Count 15.4 K/mm3 (4.5-10.0)
[2024-12-21] MEDS: ACETAMINOPHEN 325 MG TABLET 650 MG PO ×2 (03:19→21:16)
[2024-12-21 03:36] LABS: Band Neutrophils Percent 0 % (0-6); Hypochromasia 1+; Ovalocytes 1+; Schistocytes None Seen
[2024-12-21 03:42] LABS: Alanine Aminotransferase 33 U/L (6-50); Albumin Level 3.1 g/dL (3.5-5.1); Alkaline Phosphatase 77 U/L (38-126); Anion Gap 4 mmol/L (4-12); Aspartate Amino Transferase 44 U/L (17-59); Bilirubin,Total 0.4 mg/dL (0.2-1.3); Blood Urea Nitrogen 30 mg/dL (9-20); Calcium 8.0 mg/dL (8.4-10.2); Carbon Dioxide 36 mmol/L (22-30); Chloride 102 mmol/L (98-107); Estimated CRCL calculation 52 ml/min; Estimated Glomerular Filt Rate > 60; Glucose 138 mg/dL (65-110); Magnesium 2.2 mg/dL (1.6-2.3); Potassium 3.2 mmol/L (3.4-5.0); Sodium 142 mmol/L (137-145); Total Protein 6.5 g/dL (6.3-8.2)
[2024-12-21 03:43] LABS: Partial Thromboplastin Time 96.8 Seconds (22.3-36.8)
[2024-12-21 04:50] LABS: Alveolar/Arterial O2 Gradient 71.1 mmHg; Carboxyhemoglobin 0.9 % THb (0-2.0); Fractional Inspired Oxygen 30 %; HCO3 ABG 31.7 mEq/l (22.0-26.0); Methemoglobin ABG 0.1 %THb (0-1.5); Oxygen Content ABG 16.6 %vol (16.0-22.0); Oxygen Saturation ABG 96.4 % (95.0-100.0); PCO2 ABG 49.5 mmHg (35.0-45.0); PO2 ABG 84.6 mmHg (80.0-100.0); PO2 FiO2 Ratio Arterial Blood 2.82 %; Reduced Hemoglobin 3.6 %THb (0-5.0)
[2024-12-21 04:55] LABS: Arterial Blood Gas Ventilator rate 18 /MIN; Modified Allen's Test Pass; Site Drawn RIGHT RADIAL
[2024-12-21 04:56] LABS: Arterial Blood Gas Tidal Volume 420 ml
[2024-12-21] MEDS: HEPARIN SOD/D5W 100 UNITS/ML 25,000 UNITS/250 ML BAG 12 UNITS IV CONT (06:02)
[2024-12-21] MEDS: CENTRAL LINE FLUSH 10 ML IV PUSH ×3 (06:05→21:18)
[2024-12-21] MEDS: ALBUMIN HUMAN 25% 25 GM/100 ML 100 ML IVPB (08:16)
[2024-12-21] MEDS: PANTOPRAZOLE SODIUM IV 40 MG VIAL IV PUSH (08:16)
[2024-12-21] MEDS: EMPAGLIFLOZIN 10 MG TABLET PO (08:17)
[2024-12-21] MEDS: ASPIRIN 81 MG CHEWABLE TABLET PO (08:17)
[2024-12-21] MEDS: POTASSIUM CHLORIDE 20 MEQ PACKET (FOR LIQUID) 40 MEQ FEED TUBE (08:17)
[2024-12-21] MEDS: ROSUVASTATIN 10 MG TABLET PO (08:17)
[2024-12-21] MEDS: MINERAL OIL/WHITE PETROLATUM OINTMENT 1 APPLIC EACH EYE ×2 (08:50→21:17)
--- NOTE | 2024-12-21 09:44 | P.PNINT_ITS ---
Progress Note: A&P Assessment and Plan (1) Shock: Code(s): R57.9 - Shock, unspecified Status: Acute Assessment and Plan: Multifactorial. Likely secondary combination of sedation, questionable sepsis,? Cardiogenic Patient on Levophed, will switch it to phenylephrine due to significant tachycardia. Maintain MAP > 65 mmHg for adequate end organ perfusion -cardiomyopathy with EF of 30-35% -unable to start dobutamine for cardiogenic shock secondary to tachycardia/AFib RVR -patient has been accepted to [facility] cardiology for cardiomyopathy, evaluation of his mitral valve regurg and tricuspid valve regurg. Dr. Fernandes was the accepting physician 12/21: Patient continues to have fevers, T-max of 102.7? -12/21: Blood, sputum and urine cultures have been ordered -continue vancomycin, -discontinue Zosyn and will add meropenem(12/21) (2) Acute hypoxic respiratory failure: Code(s): J96.01 - Acute respiratory failure with hypoxia Status: Acute Assessment and Plan: Acute Respiratory failure secondary to congestive heart failure leading to pleural effusions and pulmonary edema. Patient also has bilateral atelectasis with questionable pneumonia 12/16 intubated and placed on mechanical ventilation Continue full mechanical ventilation support to prevent hypoxemia/hypercarbia and end organ damage. Chest x-ray and ABGs reviewed, ventilator adjusted Continue Lasix for diuresis 12/19/2024 status post LEFT thoracentesis by Interventional Radiology, removal of 1000 mL of yellow fluid Bronchodilators, Xopenex/Atrovent procalcitonin level was 0.4. MRSA screen was positive Blood cultures were done on 12/14 and 12/16 for and have been negative 12/19: sputum culture growing yeast Patient is sedated with fentanyl and Versed infusion, SAT and SBT daily CTA chest 12/17 IMPRESSION: No pulmonary embolus. No aortic dissection. Increasing bilateral pleural effusions with adjacent compressive atelectasis. Rim-enhancing fluid collection along the anterior abdominal wall measuring denser than simple fluid for which a perioperative seroma versus abscess (less likely) is suspected. Focused ultrasound may be performed for further evaluation. (3) Acute exacerbation of CHF (congestive heart failure): Qualifiers: Heart failure type: combined systolic and diastolic Qualified Code(s): I50.43 - Acute on chronic combined systolic (congestive) and diastolic (congestive) heart failure Code(s): I50.9 - Heart failure, unspecified Status: Acute Assessment and Plan: Patient was recently diagnosed with congestive heart failure with EF of 30-35 % and diastolic dysfunction. He was discharged on multiple medications but unfortunately was not taking any and was taking low-dose Lasix. Now presented with congestive heart failure with lower extremity edema, pleurall effusions which has been gradually getting worse now leading to intubation and mechanical ventilation -HOLDING Entresto due to hypotension - OFF pressors -Continue Lasix for diuresis -continue Jardiance per Cardiology -12/21 Started metoprolol per tube, may be able to discontinue amiodarone, cardiology is agreeable Echo Summary 1. Left ventricular chamber dimension is moderately enlarged. 2. Left ventricular systolic function is moderately reduced, estimated at 30- 35% 3. There is mildly increased left ventricular wall thickness. 4. The left ventricular diastolic function is abnormal. 5. Right ventricular chamber dimension is mildly enlarged. 6. Right ventricular systolic function is reduced. 7. Left atrial chamber dimension is mildly enlarged. 8. Right atrial chamber dimension is mildly enlarged. 9. There is severe mitral valve regurgitation. 10. There is severe tricuspid valve regurgitation. 11. Moderate pulmonary hypertension, estimated pulmonary arterial systolic pressure is 53 mmHg. (4) Elevated troponin: Code(s): R79.89 - Other specified abnormal findings of blood chemistry Status: Acute Assessment and Plan: Chronically elevated troponin levels. -discussed with cardiology regarding troponin elevations, patient will require ischemic workup but prior to that will have to stabilize the patient. They also recommended transferring patient to a tertiary center for higher level of care and evaluation of severe mitral valve and tricuspid valve regurgitation along with cardiomyopathy -continue aspirin Patient was not reporting any chest pain during the hospitalization prior to intubation (5) Atrial fibrillation: Qualifiers: Atrial fibrillation type: unspecified Qualified Code(s): I48.91 - Unspecified atrial fibrillation Code(s): I48.91 - Unspecified atrial fibrillation Status: Chronic Assessment and Plan: History of AFib in the chart but none of the past EKGs have shown AFib and also currently in sinus rhythm -patient does have a history of atrial fibrillation per family, has not been on anticoagulation due to affordability issues -currently in AFib RVR this morning with rates in the 140s. Treated with metoprolol with slow his rate down, but patient being hypotensive. Discussed with Cardiology, will start amiodarone infusion -also started patient on heparin infusion (12/20) -continue amiodarone, -started metoprolol this morning (6) Hyperlipidemia: Code(s): E78.5 - Hyperlipidemia, unspecified Status: Chronic Assessment and Plan: Continue rosuvastatin (7) Bilateral pleural effusion: Code(s): J90 - Pleural effusion, not elsewhere classified Status: Acute Assessment and Plan: Left pleural effusion was drained by IR with removal of 1000 mL of yellow fluid -cultures are negative so far (8) Pneumonia: Qualifiers: Laterality: bilateral Lung location: lower lobe of lung Pneumonia type: due to unspecified organism Qualified Code(s): J18.9 - Pneumonia, unspecified organism Code(s): J18.9 - Pneumonia, unspecified organism Status: Acute Assessment and Plan: Continue antibiotics as above (9) Substance abuse: Code(s): F19.10 - Other psychoactive substance abuse, uncomplicated Status: Chronic Assessment and Plan: Long History of drug abuse including cocaine could be the etiology of his congestive heart failure. (10) Abdominal fluid collection: Code(s): R18.8 - Other ascites Status: Acute Assessment and Plan: 12/17: CT scan of the abdomen shows Rim-enhancing fluid collection along the anterior abdominal wall measuring denser than simple fluid for which a perioperative seroma versus abscess (less likely) is suspected. Focused ultrasound may be performed for further evaluation.. Patient had abdominal surgery for umbilical hernia and small-bowel obstruction -Patient was evaluated by General surgery and surgeon feels that this is likely a seroma. - 12/19: Ultrasound-guided drain placement of the abdominal wall seroma by Interventional Radiology -Continue antibiotics as above (11) Lower extremity edema: Code(s): R60.0 - Localized edema Status: Acute Assessment and Plan: Likely secondary to congestive heart failure. 12/18: Venous Dopplers of bilateral lower extremities were negative for DVT Plan DVT prophylaxis -heparin infusion Stress ulcer prophylaxis -PPI Nutrition -tolerating Tube Feeds Code Status - Full Code Total Critical Care Time - 34 minutes Discussed with patient's son at bedside and updated them with patient's condition plan of care. He is aware that patient has been accepted to [facility] and awaiting bed. Due to a high probability of clinically significant, life threatening deterioration, the patient required my highest level of preparedness to intervene emergently and I personally spent this critical care time directly and personally managing the patient. This critical care time included obtaining a history; examining the patient; pulse oximetry; ordering and review of studies; arranging urgent treatment with development of a management plan; evaluation of patient's response to treatment; frequent reassessment; and discussions with other providers. It was exclusive of separately billable procedures and treating other patients and teaching time. Please see Assessment and Plan section and the rest of the note for further information on patient assessment and treatment This dictation may have been done utilizing a voice recognition system. Attempts have been made to correct errors. However, there may be uncorrected grammatical, spelling, and recognitions errors present. . Subjective Date/time seen: 12/21/24 09:44 Interval history: Reason for consult: AFib RVR, acute respiratory failure likely related to CHF exacerbation, pleural effusion and pulmonary edema. Shock likely related to cardiogenic versus septic, likely pneumonia, abdominal fluid collection, perioperative seroma versus abscess on CT scan of the abdomen and pelvis (robotic assisted repair of the incarcerated umbilical hernia on 08/24/2024.) 12/21/2024: Patient seen and examined the ICU, remains intubated on CMV mode of ventilation, peep of 8, 30% FiO2. Sedated with fentanyl and Versed infusion, opens his eyes, follows simple commands in lower extremities. Urine output has been adequate in response to diuresis. T-max of 102.7?. Remains tachycardic in the 100-110. Tolerating tube feeds Review of Systems Review of Systems: ROS unobtainable: Yes unobtainable due to endotracheal tube, unobtainable due to medical condition and unobtainable due to mental status Exam Narrative: General: Pt is sedated, intubated and on mechanical ventilation HEENT: Pupils are equal and reactive, sclerae is clear, ETT in place Lungs/Chest: Trachea central, coarse breath sounds bilaterally, decreased at bases, no wheezing Cardiac: Irregularly irregular, tachycardic. Systolic murmur 3/6 present Circulation: Pedal pulses are intact and symmetrical. Abdomen: Decreased bowel sounds. Obese. Soft. NT. ND. Extremities: Bilateral pitting edema : [place] in place Neurologic: Patient intubated, sedated, patient does open his eyes, follows simple commands in lower extremities Objective Data Vital Signs Vital Signs: Vital Signs - 24 hr 12/20/24 09:50 12/20/24 09:50 12/20/24 10:00 Temperature 101.6 F H Pulse Rate 125 H 121 H 141 H Respiratory Rate 16 18 16 Blood Pressure 98/67 L Pulse Oximetry 97 Oxygen Delivery Fraction of Inspired Oxygen 12/20/24 10:00 12/20/24 10:10 12/20/24 10:11 Temperature Pulse Rate 138 H 140 H 141 H Respiratory Rate Blood Pressure 98/67 L Pulse Oximetry Oxygen Delivery Fraction of Inspired Oxygen 12/20/24 10:54 12/20/24 11:13 12/20/24 11:17 Temperature Pulse Rate 107 H 107 H 105 H Respiratory Rate Blood Pressure 98/55 L 84/49 L Pulse Oximetry 95 Oxygen Delivery Mechanical Ventilation Fraction of Inspired Oxygen 30 12/20/24 11:17 12/20/24 11:22 12/20/24 11:45 Temperature 101.9 F H Pulse Rate 111 H 107 H Respiratory Rate 18 Blood Pressure Pulse Oximetry Oxygen Delivery Fraction of Inspired Oxygen 12/20/24 11:45 12/20/24 11:45 12/20/24 11:58 Temperature 101.8 F H Pulse Rate 107 H 107 H 103 H Respiratory Rate 18 16 Blood Pressure 98/59 L 110/60 Pulse Oximetry 96 Oxygen Delivery Fraction of Inspired Oxygen 12/20/24 12:00 12/20/24 12:00 12/20/24 12:00 Temperature Pulse Rate 149 H 103 H Respiratory Rate 19 Blood Pressure Pulse Oximetry 98 Oxygen Delivery Mechanical Ventilation Fraction of Inspired Oxygen 30 30 12/20/24 13:31 12/20/24 13:33 12/20/24 13:37 Temperature Pulse Rate 95 94 94 Respiratory Rate 18 18 Blood Pressure Pulse Oximetry 98 Oxygen Delivery Mechanical Ventilation Fraction of Inspired Oxygen 30 12/20/24 13:37 12/20/24 13:37 12/20/24 13:37 Temperature Pulse Rate 96 95 96 Respiratory Rate 18 Blood Pressure 99/56 L 99/56 L Pulse Oximetry Oxygen Delivery Fraction of Inspired Oxygen 12/20/24 13:40 12/20/24 14:00 12/20/24 15:30 Temperature Pulse Rate 96 98 100 Respiratory Rate 18 18 Blood Pressure Pulse Oximetry Oxygen Delivery Fraction of Inspired Oxygen 12/20/24 15:30 12/20/24 15:33 12/20/24 15:38 Temperature Pulse Rate 100 100 100 Respiratory Rate 18 Blood Pressure 122/61 Pulse Oximetry Oxygen Delivery Fraction of Inspired Oxygen 12/20/24 15:38 12/20/24 16:00 12/20/24 16:00 Temperature 101.8 F H Pulse Rate 100 104 H 98 Respiratory Rate 12 19 Blood Pressure 135/73 Pulse Oximetry 99 98 Oxygen Delivery Mechanical Ventilation Fraction of Inspired Oxygen 30 12/20/24 16:00 12/20/24 16:00 12/20/24 17:15 Temperature Pulse Rate 105 H 101 H Respiratory Rate Blood Pressure Pulse Oximetry 98 Oxygen Delivery Mechanical Ventilation Fraction of Inspired Oxygen 30 30 12/20/24 17:38 12/20/24 17:38 12/20/24 17:38 Temperature Pulse Rate 98 98 98 Respiratory Rate 18 18 Blood Pressure 110/71 Pulse Oximetry Oxygen Delivery Fraction of Inspired Oxygen 12/20/24 17:40 12/20/24 18:00 12/20/24 18:00 Temperature 102.4 F H Pulse Rate 98 98 92 Respiratory Rate 18 Blood Pressure 133/61 Pulse Oximetry 98 Oxygen Delivery Fraction of Inspired Oxygen 12/20/24 19:43 12/20/24 19:46 12/20/24 20:00 Temperature Pulse Rate 104 H 104 H 103 H Respiratory Rate 18 Blood Pressure 139/69 Pulse Oximetry 98 Oxygen Delivery Mechanical Ventilation Fraction of Inspired Oxygen 30 12/20/24 20:00 12/20/24 20:00 12/20/24 20:00 Temperature Pulse Rate 103 H 103 H 103 H Respiratory Rate 18 18 Blood Pressure 139/69 Pulse Oximetry Oxygen Delivery Fraction of Inspired Oxygen 12/20/24 20:00 12/20/24 20:00 12/20/24 20:00 Temperature Pulse Rate 103 H 103 H Respiratory Rate 18 Blood Pressure Pulse Oximetry 98 Oxygen Delivery Mechanical Ventilation Fraction of Inspired Oxygen 30 30 12/20/24 20:00 12/20/24 20:22 12/20/24 21:02 Temperature 102.7 F H 102.7 F H Pulse Rate 104 H 104 H Respiratory Rate 18 Blood Pressure 139/69 123/91 H Pulse Oximetry 96 Oxygen Delivery Fraction of Inspired Oxygen 12/20/24 21:20 12/20/24 22:00 12/20/24 22:00 Temperature 101 F H 100.2 F H Pulse Rate 108 H 107 H Respiratory Rate 18 Blood Pressure 124/68 Pulse Oximetry 96 Oxygen Delivery Fraction of Inspired Oxygen 12/20/24 22:00 12/20/24 22:00 12/20/24 22:00 Temperature Pulse Rate 108 H 108 H 108 H Respiratory Rate 18 18 Blood Pressure 124/68 Pulse Oximetry Oxygen Delivery Fraction of Inspired Oxygen 12/20/24 22:17 12/20/24 22:22 12/20/24 23:59 Temperature Pulse Rate 108 H 106 H 106 H Respiratory Rate 18 Blood Pressure 124/68 Pulse Oximetry 96 96 Oxygen Delivery Mechanical Ventilation Mechanical Ventilation Fraction of Inspired Oxygen 30 30 12/20/24 23:59 12/21/24 00:00 12/21/24 00:00 Temperature 99.1 F Pulse Rate 106 H 103 H Respiratory Rate 18 Blood Pressure 153/88 H Pulse Oximetry 96 Oxygen Delivery Fraction of Inspired Oxygen 30 12/21/24 00:00 12/21/24 00:00 12/21/24 00:00 Temperature Pulse Rate 106 H 104 H 109 H Respiratory Rate 18 Blood Pressure 153/88 H 153/88 H Pulse Oximetry Oxygen Delivery Fraction of Inspired Oxygen 12/21/24 00:05 12/21/24 01:38 12/21/24 01:41 Temperature Pulse Rate 104 H 102 H 102 H Respiratory Rate 18 19 Blood Pressure Pulse Oximetry 96 Oxygen Delivery Mechanical Ventilation Fraction of Inspired Oxygen 30 12/21/24 02:00 12/21/24 02:00 12/21/24 02:00 Temperature 99.9 F H Pulse Rate 109 H 102 H 102 H Respiratory Rate 18 18 Blood Pressure 100/48 L Pulse Oximetry 96 Oxygen Delivery Fraction of Inspired Oxygen 12/21/24 02:00 12/21/24 02:00 12/21/24 02:00 Temperature Pulse Rate 102 H 102 H 102 H Respiratory Rate 18 Blood Pressure 100/48 L 100/48 L Pulse Oximetry Oxygen Delivery Fraction of Inspired Oxygen 12/21/24 02:00 12/21/24 03:19 12/21/24 04:00 Temperature 100.1 F H Pulse Rate 102 H 113 H Respiratory Rate 18 Blood Pressure 100/48 L Pulse Oximetry 96 Oxygen Delivery Mechanical Ventilation Fraction of Inspired Oxygen 30 12/21/24 04:00 12/21/24 04:00 12/21/24 04:00 Temperature 100 F H Pulse Rate 109 H 109 H Respiratory Rate 18 Blood Pressure 96/73 L Pulse Oximetry 97 Oxygen Delivery Fraction of Inspired Oxygen 30 12/21/24 04:00 12/21/24 04:00 12/21/24 04:00 Temperature Pulse Rate 121 H 121 H 121 H Respiratory Rate 18 Blood Pressure 96/73 L 96/73 L Pulse Oximetry Oxygen Delivery Fraction of Inspired Oxygen 12/21/24 04:00 12/21/24 04:20 12/21/24 04:57 Temperature 100 F H Pulse Rate 121 H 114 H Respiratory Rate 18 Blood Pressure Pulse Oximetry 97 Oxygen Delivery Mechanical Ventilation Fraction of Inspired Oxygen 30 12/21/24 06:00 12/21/24 06:00 12/21/24 06:00 Temperature 99.8 F H Pulse Rate 114 H 113 H 112 H Respiratory Rate 18 Blood Pressure 92/59 L 92/59 L Pulse Oximetry 96 Oxygen Delivery Fraction of Inspired Oxygen 12/21/24 06:00 12/21/24 06:00 12/21/24 06:00 Temperature Pulse Rate 112 H 112 H 112 H Respiratory Rate 18 18 Blood Pressure 92/59 L Pulse Oximetry Oxygen Delivery Fraction of Inspired Oxygen 12/21/24 07:45 12/21/24 07:45 12/21/24 07:49 Temperature 99.2 F Pulse Rate 97 97 94 Respiratory Rate 23 H 18 Blood Pressure 107/62 Pulse Oximetry 98 97 Oxygen Delivery Mechanical Ventilation Fraction of Inspired Oxygen 30 12/21/24 07:55 Temperature Pulse Rate 98 Respiratory Rate 23 H Blood Pressure Pulse Oximetry Oxygen Delivery Fraction of Inspired Oxygen Intake/Output Intake/Output: Intake & Output 12/18/24 12/19/24 12/20/24 12/21/24 23:59 23:59 23:59 23:59 Intake Total 1825.3 2324.3 2985.6 1541.6 Output Total 3400 2428 1665 660 Balance -1574.7 -103.7 1320.6 881.6 Meds/Results Medications: Active Medications Generic Name Dose Route Start Last Admin Trade Name Freq PRN Reason Stop Dose Admin Acetaminophen 650 mg 12/14/24 20:56 12/21/24 03:19 Acetaminophen 325 Mg Tablet PO 650 mg Q4H PRN Administration Mild Pain (1-3) or Fever Aspirin 81 mg 12/17/24 09:00 12/21/24 08:17 Aspirin 81 Mg Chewable Tablet PO 81 mg DAILY REJI Administration Dextrose 12.5 gm 12/17/24 08:17 Dextrose 50% 25 Gm/50 Ml Syringe IV PUSH PRN PRN Hypoglycemia Protocol Empagliflozin 10 mg 12/15/24 09:00 12/21/24 08:17 Empagliflozin 10 Mg Tablet PO 10 mg DAILY REJI Administration Enoxaparin Sodium 40 mg 12/15/24 09:00 12/18/24 08:36 Enoxaparin 40 Mg/0.4 Ml Syringe SUB-Q 40 mg DAILY REJI Administration Furosemide 40 mg 12/15/24 09:00 12/20/24 20:13 Furosemide Inj 40 Mg/4 Ml Vial IV PUSH 40 mg Q12HR REJI Administration Glucagon 1 mg 12/17/24 08:17 Glucagon For Inj 1 Mg Vial IM PRN PRN Hypoglycemia Protocol Glucose 15 gm 12/17/24 08:17 Glucose Oral Gel 15 Gm Of Glucse In 37.5 Gm Tube PO PRN PRN Hypoglycemia Protocol Heparin Sodium (Porcine) 5,500 units 12/20/24 10:07 Heparin Sodium 5,000 Units/Ml Vial IV PUSH PRN PRN aPTT less than 55 seconds Heparin Sodium (Porcine) 3,000 units 12/20/24 10:07 Heparin Sodium 5,000 Units/Ml Vial IV PUSH PRN PRN aPTT 55 - 70 seconds Fentanyl Citrate 2,500 mcg in 250 mls @ 5 mls/hr 12/17/24 00:05 12/21/24 06:00 Fentanyl 2,500 Mcg/Ns 250 Ml IV CONT 50 mcg/hr .Q50H REJI 5 mls/hr Titration Protocol 50 MCG/HR Dextrose 1,000 mls @ 100 mls/hr 12/17/24 08:17 Dextrose 5% 1,000 Ml IVPB PRN PRN Hypoglycemia Protocol Piperacillin Sod/Tazobactam 50 mls @ 100 mls/hr 12/19/24 15:00 12/21/24 04:00 Sod 3.375 gm/ Sodium Chloride IVPB Infused Q6H REJI Infusion Midazolam HCl 100 mg in 100 mls @ 3 mls/hr 12/20/24 06:00 12/21/24 06:00 Versed 100 Mg/Ns 100 Ml IV CONT 1 mg/hr .[id number] REJI 1 mls/hr Titration Protocol 3 MG/HR Heparin Sodium/Dextrose 25,000 units in 250 mls @ 12 mls/hr 12/20/24 10:00 12/21/24 06:02 Heparin Sodium/D5w 100 Units/Ml IV CONT 1,200 units/hr .[id number] REJI 12 mls/hr Administration Protocol 1,200 UNITS/HR Amiodarone HCl/Dextrose 360 mg in 200 mls @ 16.667 mls/hr 12/20/24 15:36 12/21/24 06:00 Nexterone 360 Mg/D5w 200 Ml IV CONT 12/21/24 15:35 0.5 mg/min .Q12H REJI 16.67 mls/hr Infusion Protocol 0.5 MG/MIN Vancomycin HCl 1,500 mg in 500 mls @ 250 mls/hr 12/20/24 10:00 12/21/24 03:26 Vancomycin 1,500 Mg/Ns 500 Ml IVPB Infused Q12H REJI Infusion Phenylephrine HCl 50 mg/ 250 mls @ 0 mls/hr 12/20/24 10:25 12/21/24 06:00 Sodium Chloride IV CONT 0 mcg/min .Q0M REJI 0 mls/hr Titration Protocol 0 MCG/MIN Potassium Chloride 100 mls @ 25 mls/hr 12/21/24 07:31 Kcl 40 Meq/Water 100 Ml IVPB 12/21/24 11:30 ONCE ONE Insulin Aspart 3 - 6 units 12/17/24 12:00 12/21/24 06:05 Insulin Aspart (*Bkc) 100 Units/Ml SUB-Q Not Given Q6HR REJI Protocol Ipratropium [place] 0.5 mg 12/20/24 14:00 12/21/24 07:45 Ipratropium Br 0.02% Inh Soln 0.5 Mg/2.5 Ml Vial INHALATION 0.5 mg Q6HRT REJI Administration Levalbuterol HCl 0.63 mg 12/20/24 14:00 12/21/24 07:45 Levalbuterol Neb 1.25 Mg/3 Ml INHALATION 0.63 mg Q6HRT REJI Administration Multi-Ingred Cream/Lotion/Oil/Oint 1 applic 12/17/24 09:00 12/21/24 08:50 Mineral Oil/White Petrolatum Ointment EACH EYE 1 applic Q12HR REJI Administration Pantoprazole Sodium 40 mg 12/17/24 09:00 12/21/24 08:16 Pantoprazole Sodium Iv 40 Mg Vial IV PUSH 40 mg DAILY REJI Administration Rosuvastatin Calcium 10 mg 12/15/24 09:00 12/21/24 08:17 Rosuvastatin 10 Mg Tablet PO 10 mg QAM REJI Administration Sacubitril/Valsartan 1 tab 12/15/24 09:00 12/16/24 21:45 Sacubitril/Valsartan 24-26 Mg Tablet PO 1 tab Q12HR REJI Administration Sodium Chloride 10 ml 12/17/24 06:00 12/21/24 06:05 Central Line Flush IV PUSH 10 ml Q8HR REJI Administration Sodium Chloride 20 ml 12/17/24 00:05 12/18/24 05:40 Central Line Flush IV PUSH 20 ml PRN PRN Administration after blood draws Radiology Results: ITS Impressions Chest CTA 12/16/24 13:43 IMPRESSION: No pulmonary embolus. No thoracic aortic dissection. Findings suggesting congestive failure, with large bilateral pleural effusions and intra-abdominal ascites. Abdomen X-Ray 12/17/24 07:07 IMPRESSION: Orogastric tube in good position and ready for immediate use. Remainder of examination is unchanged Head CT 12/17/24 07:09 Impression: No acute intracranial hemorrhage or suspicious mass effect. Chest/Abdomen/Pelvis CTA 12/17/24 07:41 IMPRESSION: No pulmonary embolus. No aortic dissection. Increasing bilateral pleural effusions with adjacent compressive atelectasis. Rim-enhancing fluid collection along the anterior abdominal wall measuring denser than simple fluid for which a perioperative seroma versus abscess (less l ikely) is suspected. Focused ultrasound may be performed for further evaluation. Venous Doppler Study 12/18/24 11:04 IMPRESSION: 1. No deep venous thrombosis. Thoracentesis Ultrasound 12/19/24 16:47 IMPRESSION: 1. Successful ultrasound-guided thoracentesis yielding 1000 mL of yellow fluid. Abscess Drainage Ultrasound 12/19/24 16:49 IMPRESSION: 1. Successful ultrasound-guided percutaneous abscess drain placement into a 6.7 x 1.7 x 6.7 cm complex subcutaneous fluid collection situated between the umbilicus and the ventral hernia mesh repair. Sonographic appearance of the fluid collection and the correlation and clarity of the aspirated fluid would favor evolving hematoma over abscess but would correlate with results from the Gram stain and cultures. The catheter will be managed by Dr. Villasenor. Chest X-Ray 12/21/24 05:44 Impression: Minimal left pleural effusion with moderate pulmonary edema pattern. Support tubes, as above. Labs Labs: Laboratory Results - last 24 hr 12/20/24 12/20/24 12/20/24 09:24 10:35 13:37 WBC 19.2 H RBC 4.62 Hgb 11.6 L Hct 39.9 L MCV 86.4 MCH 25.1 L MCHC 29.1 L RDW 18.6 H Plt Count 207 MPV 10.2 Immature Gran % (Auto) 0.8 H Neut % (Auto) 84.6 H Lymph % (Auto) 6.2 L [place] % (Auto) 8.2 Eos % (Auto) 0.0 Baso % (Auto) 0.2 Lymph # (Auto) 1.18 [place] # (Auto) 1.6 H Eos # (Auto) 0.0 Baso # (Auto) 0.0 Abs Immat Gran (auto) 0.16 H Absolute Neuts (auto) 16.2 H Absolute Nucleated RBC 0.000 Band Neutrophils % Not Reportable Nucleated RBC % 0.0 Platelet Estimate Adequate Hypochromasia 1+ Anisocytosis 1+ Ovalocytes Schistocytes None seen PT 15.8 H INR 1.3 APTT 34.1 Puncture Site ABG pH ABG pCO2 ABG pO2 ABG PO2/FiO2 Ratio ABG HCO3 ABG O2 Saturation ABG O2 Content ABG Base Excess A-a Gradient Oxyhemoglobin Carboxyhemoglobin Methemoglobin Reduced Hemoglobin Total Hemoglobin O2 Delivery Device O2 Liters/Min Minute Volume FiO2 Peak Inspir Pressure Pressure Support Sodium Potassium Chloride Carbon Dioxide Anion Gap BUN Creatinine Estim Creat Clear Calc Estimated GFR Glucose POC Capillary Glucose 190 H Calcium Phosphorus Magnesium Total Bilirubin AST ALT Alkaline Phosphatase Total Protein Albumin Vancomycin Trough 8.2 L 12/20/24 12/21/24 12/21/24 18:59 00:15 03:05 WBC 15.4 H RBC 4.33 L Hgb 10.8 L Hct 36.8 L MCV 85.0 MCH 24.9 L MCHC 29.3 L RDW 18.8 H Plt Count 184 MPV 9.5 Immature Gran % (Auto) 0.5 Neut % (Auto) 75.6 H Lymph % (Auto) 11.1 L [place] % (Auto) 12.4 H Eos % (Auto) 0.1 Baso % (Auto) 0.3 Lymph # (Auto) 1.70 [place] # (Auto) 1.9 H Eos # (Auto) 0.0 Baso # (Auto) 0.1 Abs Immat Gran (auto) 0.07 H Absolute Neuts (auto) 11.6 H Absolute Nucleated RBC 0.000 Band Neutrophils % 0 Nucleated RBC % 0.0 Platelet Estimate Adequate Hypochromasia 1+ Anisocytosis Ovalocytes 1+ Schistocytes None seen PT INR APTT 132.8 H 96.8 H Puncture Site ABG pH ABG pCO2 ABG pO2 ABG PO2/FiO2 Ratio ABG HCO3 ABG O2 Saturation ABG O2 Content ABG Base Excess A-a Gradient Oxyhemoglobin Carboxyhemoglobin Methemoglobin Reduced Hemoglobin Total Hemoglobin O2 Delivery Device O2 Liters/Min Minute Volume FiO2 Peak Inspir Pressure Pressure Support Sodium 142 Potassium 3.2 L Chloride 102 Carbon Dioxide 36 H Anion Gap 4 BUN 30 H Creatinine 0.97 Estim Creat Clear Calc 52 Estimated GFR > 60 Glucose 138 H POC Capillary Glucose 156 H Calcium 8.0 L Phosphorus 2.8 Magnesium 2.2 Total Bilirubin 0.4 AST 44 ALT 33 Alkaline Phosphatase 77 Total Protein 6.5 Albumin 3.1 L Vancomycin Trough 12/21/24 04:43 WBC RBC Hgb Hct MCV MCH MCHC RDW Plt Count MPV Immature Gran % (Auto) Neut % (Auto) Lymph % (Auto) [place] % (Auto) Eos % (Auto) Baso % (Auto) Lymph # (Auto) [place] # (Auto) Eos # (Auto) Baso # (Auto) Abs Immat Gran (auto) Absolute Neuts (auto) Absolute Nucleated RBC Band Neutrophils % Nucleated RBC % Platelet Estimate Hypochromasia Anisocytosis Ovalocytes Schistocytes PT INR APTT Puncture Site Right radial ABG pH 7.424 ABG pCO2 49.5 H ABG pO2 84.6 ABG PO2/FiO2 Ratio 2.82 ABG HCO3 31.7 H ABG O2 Saturation 96.4 ABG O2 Content 16.6 ABG Base Excess 6.2 A-a Gradient 71.1 Oxyhemoglobin 95.4 Carboxyhemoglobin 0.9 Methemoglobin 0.1 Reduced Hemoglobin 3.6 Total Hemoglobin 12.3 O2 Delivery Device Ventilator O2 Liters/Min Not Reportable Minute Volume Not Reportable FiO2 30 Peak Inspir Pressure Not Reportable Pressure Support Not Reportable Sodium Potassium Chloride Carbon Dioxide Anion Gap BUN Creatinine Estim Creat Clear Calc Estimated GFR Glucose POC Capillary Glucose Calcium Phosphorus Magnesium Total Bilirubin AST ALT Alkaline Phosphatase Total Protein Albumin Vancomycin Trough Quality VTE Prophylaxis VTE prophylaxis: pharmacologic ordered
[2024-12-21] MEDS: KCL 40 MEQ/WATER 100 ML 100 ML 25 ML IVPB (09:52)
[2024-12-21] MEDS: FUROSEMIDE INJ 40 MG/4 ML VIAL IV PUSH ×2 (09:52→21:16)
[2024-12-21] MEDS: VANCOMYCIN 1,500 MG/NS 500 ML 1,500 MG/500 ML BAG 250 MG IVPB (10:22)
[2024-12-21] MEDS: METOPROLOL TARTRATE 25 MG TABLET PO ×2 (10:25→21:16)
[2024-12-21 10:51] LABS: INR 1.3; Prothrombin Time 16.4 Seconds (11.1-14.7)
[2024-12-21 11:02] LABS: Partial Thromboplastin Time 176.6 Seconds (22.3-36.8)
--- NOTE | 2024-12-21 11:24 | P.PNCA_ITS ---
Progress Note: A&P Assessment and Plan (1) Acute exacerbation of CHF (congestive heart failure): Code(s): I50.9 - Heart failure, unspecified Status: Acute Plan -Acute on chronic systolic heart failure-LVEF 30-35% (was 40-45% in 08/2024); chest x-ray with pulmonary edema, BNP 5810 -Elevated troponin but cannot obtain history of chest pain as patient is intubated and sedated-0.024, 0.173 -Acute hypoxemic respiratory failure secondary to CHF-requiring intubation -Severe mitral regurgitation -Severe tricuspid regurgitation -Severe pulmonary hypertension with PASP of 53 mm Hg -A fib with RVR- pt was not taking anticoagulation due to cost (per pt's son) -Hypotension with SBP in the 70s requiring norepinephrine drip -Bilateral pleural effusion left greater than right -Pneumonia-on broad-spectrum antibiotics -Cardiac arrest status post resuscitation Plan: -Continue amiodarone for AFib -Continue heparin for anticoagulation -Acute on chronic systolic heart failure could be secondary to severe underlying valvular heart disease vs AFib vs underlying ischemia will also need to be ruled out. Recommend cardiac catheterization to rule ischemia as a cause and RODERICK to evaluate MR and TR when patient more stable -Trend troponin to peak -Continue aspirin and statin -Guideline directed medical therapy as tolerated for systolic heart failure. Beta-garret held due to hypotension. Continue empagliflozin, Entresto -Check daily weights, in's and out's, renal function -Check and replace electrolytes as needed to keep potassium greater than 4 and magnesium greater than 2 -Transfer initiated to [facility] for further evaluation of significant valvular disease and cardiomyopathy Subjective Date/time seen: 12/21/24 11:24 Interval history: Reason for encounter: AFib with RVR Interval history: Patient remains intubated and sedated. Patient's son is at the bedside and reports patient open his eyes and gave him a thumbs-up while he was talking to patient. Amiodarone was started yesterday and telemetry shows AFib with rates in the 100s. Review of Systems Cardiovascular: Comments: As per HPI Respiratory: Comments: As per HPI Exam Narrative: General: Intubated and sedated Neck: Supple, unable to assess JVD Chest: Bilaterally clear to auscultation, no rales or rhonchi Cardiac: S1, S2 +, regular rate, regular rhythm, systolic murmur best heard in apical area Extremities: Bilateral lower extremity edema 1+, no skin rash Neurologic: Intubated and sedated Objective Data Vital Signs Vital Signs: Vital Signs - 24 hr 12/20/24 11:45 12/20/24 11:45 12/20/24 11:45 Temperature Pulse Rate 107 H 107 H 107 H Respiratory Rate 18 18 Blood Pressure 98/59 L Pulse Oximetry Oxygen Delivery Fraction of Inspired Oxygen 12/20/24 11:58 12/20/24 12:00 12/20/24 12:00 Temperature 38.8 C H Pulse Rate 103 H 149 H Respiratory Rate 16 19 Blood Pressure 110/60 Pulse Oximetry 96 98 Oxygen Delivery Mechanical Ventilation Fraction of Inspired Oxygen 30 30 12/20/24 12:00 12/20/24 13:31 12/20/24 13:33 Temperature Pulse Rate 103 H 95 94 Respiratory Rate 18 Blood Pressure Pulse Oximetry 98 Oxygen Delivery Mechanical Ventilation Fraction of Inspired Oxygen 30 12/20/24 13:37 12/20/24 13:37 12/20/24 13:37 Temperature Pulse Rate 94 96 95 Respiratory Rate 18 18 Blood Pressure 99/56 L Pulse Oximetry Oxygen Delivery Fraction of Inspired Oxygen 12/20/24 13:37 12/20/24 13:40 12/20/24 14:00 Temperature Pulse Rate 96 96 98 Respiratory Rate 18 Blood Pressure 99/56 L Pulse Oximetry Oxygen Delivery Fraction of Inspired Oxygen 12/20/24 15:30 12/20/24 15:30 12/20/24 15:33 Temperature Pulse Rate 100 100 100 Respiratory Rate 18 18 Blood Pressure 122/61 Pulse Oximetry Oxygen Delivery Fraction of Inspired Oxygen 12/20/24 15:38 12/20/24 15:38 12/20/24 16:00 Temperature 38.8 C H Pulse Rate 100 100 104 H Respiratory Rate 12 Blood Pressure 135/73 Pulse Oximetry 99 Oxygen Delivery Fraction of Inspired Oxygen 12/20/24 16:00 12/20/24 16:00 12/20/24 16:00 Temperature Pulse Rate 98 105 H Respiratory Rate 19 Blood Pressure Pulse Oximetry 98 Oxygen Delivery Mechanical Ventilation Fraction of Inspired Oxygen 30 30 12/20/24 17:15 12/20/24 17:38 12/20/24 17:38 Temperature Pulse Rate 101 H 98 98 Respiratory Rate 18 18 Blood Pressure Pulse Oximetry 98 Oxygen Delivery Mechanical Ventilation Fraction of Inspired Oxygen 30 12/20/24 17:38 12/20/24 17:40 12/20/24 18:00 Temperature Pulse Rate 98 98 98 Respiratory Rate Blood Pressure 110/71 Pulse Oximetry Oxygen Delivery Fraction of Inspired Oxygen 12/20/24 18:00 12/20/24 19:43 12/20/24 19:46 Temperature 39.1 C H Pulse Rate 92 104 H 104 H Respiratory Rate 18 18 Blood Pressure 133/61 Pulse Oximetry 98 98 Oxygen Delivery Mechanical Ventilation Fraction of Inspired Oxygen 30 12/20/24 20:00 12/20/24 20:00 12/20/24 20:00 Temperature Pulse Rate 103 H 103 H 103 H Respiratory Rate 18 Blood Pressure 139/69 139/69 Pulse Oximetry Oxygen Delivery Fraction of Inspired Oxygen 12/20/24 20:00 12/20/24 20:00 12/20/24 20:00 Temperature Pulse Rate 103 H 103 H 103 H Respiratory Rate 18 18 Blood Pressure Pulse Oximetry 98 Oxygen Delivery Mechanical Ventilation Fraction of Inspired Oxygen 30 12/20/24 20:00 12/20/24 20:00 12/20/24 20:22 Temperature 39.3 C H 39.3 C H Pulse Rate 104 H Respiratory Rate 18 Blood Pressure 139/69 Pulse Oximetry 96 Oxygen Delivery Fraction of Inspired Oxygen 30 12/20/24 21:02 12/20/24 21:20 12/20/24 22:00 Temperature 38.3 C H Pulse Rate 104 H 108 H Respiratory Rate Blood Pressure 123/91 H Pulse Oximetry Oxygen Delivery Fraction of Inspired Oxygen 12/20/24 22:00 12/20/24 22:00 12/20/24 22:00 Temperature 37.9 C H Pulse Rate 107 H 108 H 108 H Respiratory Rate 18 18 Blood Pressure 124/68 124/68 Pulse Oximetry 96 Oxygen Delivery Fraction of Inspired Oxygen 12/20/24 22:00 12/20/24 22:17 12/20/24 22:22 Temperature Pulse Rate 108 H 108 H 106 H Respiratory Rate 18 Blood Pressure 124/68 Pulse Oximetry 96 Oxygen Delivery Mechanical Ventilation Fraction of Inspired Oxygen 30 12/20/24 23:59 12/20/24 23:59 12/21/24 00:00 Temperature Pulse Rate 106 H 106 H Respiratory Rate 18 Blood Pressure Pulse Oximetry 96 Oxygen Delivery Mechanical Ventilation Fraction of Inspired Oxygen 30 30 12/21/24 00:00 12/21/24 00:00 12/21/24 00:00 Temperature 37.3 C Pulse Rate 103 H 106 H 104 H Respiratory Rate 18 18 Blood Pressure 153/88 H 153/88 H Pulse Oximetry 96 Oxygen Delivery Fraction of Inspired Oxygen 12/21/24 00:00 12/21/24 00:05 12/21/24 01:38 Temperature Pulse Rate 109 H 104 H 102 H Respiratory Rate 18 19 Blood Pressure 153/88 H Pulse Oximetry Oxygen Delivery Fraction of Inspired Oxygen 12/21/24 01:41 12/21/24 02:00 12/21/24 02:00 Temperature 37.7 C H Pulse Rate 102 H 109 H 102 H Respiratory Rate 18 Blood Pressure 100/48 L Pulse Oximetry 96 96 Oxygen Delivery Mechanical Ventilation Fraction of Inspired Oxygen 30 12/21/24 02:00 12/21/24 02:00 12/21/24 02:00 Temperature Pulse Rate 102 H 102 H 102 H Respiratory Rate 18 18 Blood Pressure 100/48 L Pulse Oximetry Oxygen Delivery Fraction of Inspired Oxygen 12/21/24 02:00 12/21/24 02:00 12/21/24 03:19 Temperature 37.8 C H Pulse Rate 102 H 102 H Respiratory Rate Blood Pressure 100/48 L 100/48 L Pulse Oximetry Oxygen Delivery Fraction of Inspired Oxygen 12/21/24 04:00 12/21/24 04:00 12/21/24 04:00 Temperature Pulse Rate 113 H 109 H Respiratory Rate 18 Blood Pressure Pulse Oximetry 96 Oxygen Delivery Mechanical Ventilation Fraction of Inspired Oxygen 30 30 12/21/24 04:00 12/21/24 04:00 12/21/24 04:00 Temperature 37.7 C H Pulse Rate 109 H 121 H 121 H Respiratory Rate 18 Blood Pressure 96/73 L 96/73 L 96/73 L Pulse Oximetry 97 Oxygen Delivery Fraction of Inspired Oxygen 12/21/24 04:00 12/21/24 04:00 12/21/24 04:20 Temperature 37.7 C H Pulse Rate 121 H 121 H Respiratory Rate 18 18 Blood Pressure Pulse Oximetry Oxygen Delivery Fraction of Inspired Oxygen 12/21/24 04:57 12/21/24 06:00 12/21/24 06:00 Temperature 37.7 C H Pulse Rate 114 H 114 H 113 H Respiratory Rate 18 Blood Pressure 92/59 L Pulse Oximetry 97 96 Oxygen Delivery Mechanical Ventilation Fraction of Inspired Oxygen 30 12/21/24 06:00 12/21/24 06:00 12/21/24 06:00 Temperature Pulse Rate 112 H 112 H 112 H Respiratory Rate 18 18 Blood Pressure 92/59 L Pulse Oximetry Oxygen Delivery Fraction of Inspired Oxygen 12/21/24 06:00 12/21/24 07:45 12/21/24 07:45 Temperature Pulse Rate 112 H 97 97 Respiratory Rate 23 H Blood Pressure 92/59 L Pulse Oximetry 98 Oxygen Delivery Mechanical Ventilation Fraction of Inspired Oxygen 30 12/21/24 07:49 12/21/24 07:55 12/21/24 10:00 Temperature 37.3 C 37.3 C Pulse Rate 94 98 105 H Respiratory Rate 18 23 H 19 Blood Pressure 107/62 117/58 L Pulse Oximetry 97 98 Oxygen Delivery Fraction of Inspired Oxygen 12/21/24 10:25 Temperature Pulse Rate 112 H Respiratory Rate Blood Pressure Pulse Oximetry Oxygen Delivery Fraction of Inspired Oxygen Intake/Output Intake/Output: Intake & Output 12/18/24 12/19/24 12/20/24 12/21/24 23:59 23:59 23:59 23:59 Intake Total 1825.3 2324.3 2985.6 1602.6 Output Total 3400 2428 1665 660 Balance -1574.7 -103.7 1320.6 942.6 Meds/Results Medications: Active Medications Generic Name Dose Route Start Last Admin Trade Name Freq PRN Reason Stop Dose Admin Acetaminophen 650 mg 12/14/24 20:56 12/21/24 03:19 Acetaminophen 325 Mg Tablet PO 650 mg Q4H PRN Administration Mild Pain (1-3) or Fever Aspirin 81 mg 12/17/24 09:00 12/21/24 08:17 Aspirin 81 Mg Chewable Tablet PO 81 mg DAILY REJI Administration Dextrose 12.5 gm 12/17/24 08:17 Dextrose 50% 25 Gm/50 Ml Syringe IV PUSH PRN PRN Hypoglycemia Protocol Empagliflozin 10 mg 12/15/24 09:00 12/21/24 08:17 Empagliflozin 10 Mg Tablet PO 10 mg DAILY REJI Administration Enoxaparin Sodium 40 mg 12/15/24 09:00 12/18/24 08:36 Enoxaparin 40 Mg/0.4 Ml Syringe SUB-Q 40 mg DAILY REJI Administration Furosemide 40 mg 12/15/24 09:00 12/21/24 09:52 Furosemide Inj 40 Mg/4 Ml Vial IV PUSH 40 mg Q12HR REJI Administration Glucagon 1 mg 12/17/24 08:17 Glucagon For Inj 1 Mg Vial IM PRN PRN Hypoglycemia Protocol Glucose 15 gm 12/17/24 08:17 Glucose Oral Gel 15 Gm Of Glucse In 37.5 Gm Tube PO PRN PRN Hypoglycemia Protocol Heparin Sodium (Porcine) 5,500 units 12/20/24 10:07 Heparin Sodium 5,000 Units/Ml Vial IV PUSH PRN PRN aPTT less than 55 seconds Heparin Sodium (Porcine) 3,000 units 12/20/24 10:07 Heparin Sodium 5,000 Units/Ml Vial IV PUSH PRN PRN aPTT 55 - 70 seconds Fentanyl Citrate 2,500 mcg in 250 mls @ 5 mls/hr 12/17/24 00:05 12/21/24 06:00 Fentanyl 2,500 Mcg/Ns 250 Ml IV CONT 50 mcg/hr .Q50H REJI 5 mls/hr Titration Protocol 50 MCG/HR Dextrose 1,000 mls @ 100 mls/hr 12/17/24 08:17 Dextrose 5% 1,000 Ml IVPB PRN PRN Hypoglycemia Protocol Midazolam HCl 100 mg in 100 mls @ 3 mls/hr 12/20/24 06:00 12/21/24 06:00 Versed 100 Mg/Ns 100 Ml IV CONT 1 mg/hr .[id number] REJI 1 mls/hr Titration Protocol 3 MG/HR Heparin Sodium/Dextrose 25,000 units in 250 mls @ 0 mls/hr 12/20/24 10:00 12/21/24 11:07 Heparin Sodium/D5w 100 Units/Ml IV CONT 0 units/hr .Q0M REJI 0 mls/hr Titration Protocol Amiodarone HCl/Dextrose 360 mg in 200 mls @ 16.667 mls/hr 12/20/24 15:36 12/21/24 06:00 Nexterone 360 Mg/D5w 200 Ml IV CONT 12/21/24 15:35 0.5 mg/min .Q12H REJI 16.67 mls/hr Infusion Protocol 0.5 MG/MIN Vancomycin HCl 1,500 mg in 500 mls @ 250 mls/hr 12/20/24 10:00 12/21/24 10:22 Vancomycin 1,500 Mg/Ns 500 Ml IVPB 250 mls/hr Q12H REJI Administration Phenylephrine HCl 50 mg/ 250 mls @ 0 mls/hr 12/20/24 10:25 12/21/24 06:00 Sodium Chloride IV CONT 0 mcg/min .Q0M REJI 0 mls/hr Titration Protocol 0 MCG/MIN Potassium Chloride 100 mls @ 25 mls/hr 12/21/24 07:31 12/21/24 09:52 Kcl 40 Meq/Water 100 Ml IVPB 12/21/24 11:30 25 mls/hr ONCE ONE Administration Meropenem 1 gm/ Sodium 100 mls @ 200 mls/hr 12/21/24 13:00 Chloride IVPB Q8HR REJI Insulin Aspart 3 - 6 units 12/17/24 12:00 12/21/24 06:05 Insulin Aspart (*Bkc) 100 Units/Ml SUB-Q Not Given Q6HR [facility] Protocol Ipratropium [place] 0.5 mg 12/20/24 14:00 12/21/24 07:45 Ipratropium Br 0.02% Inh Soln 0.5 Mg/2.5 Ml Vial INHALATION 0.5 mg Q6HRT REJI Administration Levalbuterol HCl 0.63 mg 12/20/24 14:00 12/21/24 07:45 Levalbuterol Neb 1.25 Mg/3 Ml INHALATION 0.63 mg Q6HRT REJI Administration Metoprolol Tartrate 25 mg 12/21/24 09:45 12/21/24 10:25 Metoprolol Tartrate 25 Mg Tablet PO 25 mg Q12HR REJI Administration Multi-Ingred Cream/Lotion/Oil/Oint 1 applic 12/17/24 09:00 12/21/24 08:50 Mineral Oil/White Petrolatum Ointment EACH EYE 1 applic Q12HR REJI Administration Pantoprazole Sodium 40 mg 12/17/24 09:00 12/21/24 08:16 Pantoprazole Sodium Iv 40 Mg Vial IV PUSH 40 mg DAILY REJI Administration Polyethylene Glycol 17 gm 12/22/24 09:00 Polyethylene Glycol 3350 17 Gm Powd.Pack PO QAM REJI Rosuvastatin Calcium 10 mg 12/15/24 09:00 12/21/24 08:17 Rosuvastatin 10 Mg Tablet PO 10 mg QAM [facility] Administration Sacubitril/Valsartan 1 tab 12/15/24 09:00 12/16/24 21:45 Sacubitril/Valsartan 24-26 Mg Tablet PO 1 tab Q12HR REJI Administration Senna/Docusate Sodium 1 tab 12/21/24 17:00 Senna/Docusate Sodium Tablet PO BID REJI Sodium Chloride 10 ml 12/17/24 06:00 12/21/24 06:05 Central Line Flush IV PUSH 10 ml Q8HR REJI Administration Sodium Chloride 20 ml 12/17/24 00:05 12/18/24 05:40 Central Line Flush IV PUSH 20 ml PRN PRN Administration after blood draws Radiology Results: ITS Impressions Chest CTA 12/16/24 13:43 IMPRESSION: No pulmonary embolus. No thoracic aortic dissection. Findings suggesting congestive failure, with large bilateral pleural effusions and intra-abdominal ascites. Abdomen X-Ray 12/17/24 07:07 IMPRESSION: Orogastric tube in good position and ready for immediate use. Remainder of examination is unchanged Head CT 12/17/24 07:09 Impression: No acute intracranial hemorrhage or suspicious mass effect. Chest/Abdomen/Pelvis CTA 12/17/24 07:41 IMPRESSION: No pulmonary embolus. No aortic dissection. Increasing bilateral pleural effusions with adjacent compressive atelectasis. Rim-enhancing fluid collection along the anterior abdominal wall measuring denser than simple fluid for which a perioperative seroma versus abscess (less likely) is suspected. Focused ultrasound may be performed for further evaluation. Venous Doppler Study 12/18/24 11:04 IMPRESSION: 1. No deep venous thrombosis. Thoracentesis Ultrasound 12/19/24 16:47 IMPRESSION: 1. Successful ultrasound-guided thoracentesis yielding 1000 mL of yellow fluid. Abscess Drainage Ultrasound 12/19/24 16:49 IMPRESSION: 1. Successful ultrasound-guided percutaneous abscess drain placement into a 6.7 x 1.7 x 6.7 cm complex subcutaneous fluid collection situated between the umbilicus and the ventral hernia mesh repair. Sonographic appearance of the fluid collection and the correlation and clarity of the aspirated fluid would favor evolving hematoma over abscess but would correlate with results from the Gram stain and cultures. The catheter will be managed by Dr. Villasenor. Chest X-Ray 12/21/24 05:44 Impression: Minimal left pleural effusion with moderate pulmonary edema pattern. Support tubes, as above. Labs Labs: Laboratory Results - last 24 hr 12/20/24 12/20/24 12/20/24 10:35 13:37 18:59 WBC RBC Hgb Hct MCV MCH MCHC RDW Plt Count MPV Immature Gran % (Auto) Neut % (Auto) Lymph % (Auto) [place] % (Auto) Eos % (Auto) Baso % (Auto) Lymph # (Auto) [place] # (Auto) Eos # (Auto) Baso # (Auto) Abs Immat Gran (auto) Absolute Neuts (auto) Absolute Nucleated RBC Band Neutrophils % Not Reportable Nucleated RBC % Platelet Estimate Adequate Hypochromasia 1+ Anisocytosis 1+ Ovalocytes Schistocytes None seen PT INR APTT 132.8 H Puncture Site ABG pH ABG pCO2 ABG pO2 ABG PO2/FiO2 Ratio ABG HCO3 ABG O2 Saturation ABG O2 Content ABG Base Excess A-a Gradient Oxyhemoglobin Carboxyhemoglobin Methemoglobin Reduced Hemoglobin Total Hemoglobin O2 Delivery Device O2 Liters/Min Minute Volume FiO2 Peak Inspir Pressure Pressure Support Sodium Potassium Chloride Carbon Dioxide Anion Gap BUN Creatinine Estim Creat Clear Calc Estimated GFR Glucose POC Capillary Glucose 190 H Calcium Phosphorus Magnesium Total Bilirubin AST ALT Alkaline Phosphatase Total Protein Albumin 12/21/24 12/21/24 12/21/24 00:15 03:05 04:43 WBC 15.4 H RBC 4.33 L Hgb 10.8 L Hct 36.8 L MCV 85.0 MCH 24.9 L MCHC 29.3 L RDW 18.8 H Plt Count 184 MPV 9.5 Immature Gran % (Auto) 0.5 Neut % (Auto) 75.6 H Lymph % (Auto) 11.1 L [place] % (Auto) 12.4 H Eos % (Auto) 0.1 Baso % (Auto) 0.3 Lymph # (Auto) 1.70 [place] # (Auto) 1.9 H Eos # (Auto) 0.0 Baso # (Auto) 0.1 Abs Immat Gran (auto) 0.07 H Absolute Neuts (auto) 11.6 H Absolute Nucleated RBC 0.000 Band Neutrophils % 0 Nucleated RBC % 0.0 Platelet Estimate Adequate Hypochromasia 1+ Anisocytosis Ovalocytes 1+ Schistocytes None seen PT INR APTT 96.8 H Puncture Site Right radial ABG pH 7.424 ABG pCO2 49.5 H ABG pO2 84.6 ABG PO2/FiO2 Ratio 2.82 ABG HCO3 31.7 H ABG O2 Saturation 96.4 ABG O2 Content 16.6 ABG Base Excess 6.2 A-a Gradient 71.1 Oxyhemoglobin 95.4 Carboxyhemoglobin 0.9 Methemoglobin 0.1 Reduced Hemoglobin 3.6 Total Hemoglobin 12.3 O2 Delivery Device Ventilator O2 Liters/Min Not Reportable Minute Volume Not Reportable FiO2 30 Peak Inspir Pressure Not Reportable Pressure Support Not Reportable Sodium 142 Potassium 3.2 L Chloride 102 Carbon Dioxide 36 H Anion Gap 4 BUN 30 H Creatinine 0.97 Estim Creat Clear Calc 52 Estimated GFR > 60 Glucose 138 H POC Capillary Glucose 156 H Calcium 8.0 L Phosphorus 2.8 Magnesium 2.2 Total Bilirubin 0.4 AST 44 ALT 33 Alkaline Phosphatase 77 Total Protein 6.5 Albumin 3.1 L 12/21/24 10:38 WBC RBC Hgb Hct MCV MCH MCHC RDW Plt Count MPV Immature Gran % (Auto) Neut % (Auto) Lymph % (Auto) [place] % (Auto) Eos % (Auto) Baso % (Auto) Lymph # (Auto) [place] # (Auto) Eos # (Auto) Baso # (Auto) Abs Immat Gran (auto) Absolute Neuts (auto) Absolute Nucleated RBC Band Neutrophils % Nucleated RBC % Platelet Estimate Hypochromasia Anisocytosis Ovalocytes Schistocytes PT 16.4 H INR 1.3 APTT 176.6 H* Puncture Site ABG pH ABG pCO2 ABG pO2 ABG PO2/FiO2 Ratio ABG HCO3 ABG O2 Saturation ABG O2 Content ABG Base Excess A-a Gradient Oxyhemoglobin Carboxyhemoglobin Methemoglobin Reduced Hemoglobin Total Hemoglobin O2 Delivery Device O2 Liters/Min Minute Volume FiO2 Peak Inspir Pressure Pressure Support Sodium Potassium Chloride Carbon Dioxide Anion Gap BUN Creatinine Estim Creat Clear Calc Estimated GFR Glucose POC Capillary Glucose Calcium Phosphorus Magnesium Total Bilirubin AST ALT Alkaline Phosphatase Total Protein Albumin
--- NOTE | 2024-12-21 11:58 | PCFNICU ---
ICU Rounding Note: Pt current nutrition is Vital AF 1.2 at 60 ml/hr. Last recorded weight is 78.6 kg, stable Bowel Motility: Last reported BM 12/21 Labs Reviewed: Glu 138, Alb 3.1, Hgb 10.8, Hct 36.8 Meds Noted:Miralax, Colace, Heparin, Fentanyl. Skin: WNL Additional Notes: Patient remains on mechanical vent. Tube feedings are being tolerated of Vital AF 1.2 at 60 ml/hr. Free water flush 30 ml q 4 hours. Total Nutrition: 1584 kcal/99 gm protein/1070 ml water. Tube feeding providing 81% kcal needs at 25 kcal/kg and 100% protein needs at 1.2-1.4 gm/kg. Agree with diet orders at this time. Following daily in ICU rounds. Monitoring orders, labs, weights, meds, vitals Follow up Thursday/ Fridays.
[2024-12-21] MEDS: MEROPENEM 1 GM in SODIUM CHLORIDE 0.9% IV 100 ML 200 ML IVPB ×2 (12:50→21:17)
[2024-12-21 18:51] LABS: Partial Thromboplastin Time 72.9 Seconds (22.3-36.8)
[2024-12-21] MEDS: FENTANYL 2,500MCG/NS250ML(*CRX 2,500 MCG/250 ML BAG IV CONT (21:14)
[2024-12-21] MEDS: SENNA/DOCUSATE SODIUM TABLET 1 TAB PO (21:15)
[2024-12-22 19:13] LABS: Albumin Pleural Fluid. 1.8 g/dL; Glucose Pleural Fluid. 125 mg/dL; LDH Pleural Fluid. 119 U/L
--- NOTE | 2024-12-27 15:01 | P.TS_ITS ---
Transfer Discharge Sum: Prov Provider Date of admission: 12/14/24 20:57 Primary care physician: [facility] Admitting clinician: Moise Gottlieb MD Consults: 12/14/24 Consult to Physician Routine Comment: left vm with Amaya @[phone] (,) Consulting Provider: Amaya Mirza sustainable products marketing manager/MD group to consult: Cardiology Reason for consultation: Heart failure exacerbation Has provider been notified: Yes 12/16/24 14:08 Consult to Physician Routine Comment: Consulting Provider: Karie Castillo sustainable products marketing manager/MD group to consult: Pulmonology Reason for consultation: Large Pleural Effusion Has provider been notified: Yes 12/17/24 Consult to Physician Routine Comment: Spoke with exchange 12/17 @ 8330 Consulting Provider: Jose Villasenor sustainable products marketing manager/MD group to consult: General surgery Reason for consultation: Abscess versus fluid collection around umbilicus, recent surgery for small Has provider been notified: Yes 12/17/24 00:17 Consult to Physician Routine Comment: Consulting Provider: Isaak Simmons sustainable products marketing manager/MD group to consult: ICU Reason for consultation: code blue Has provider been notified: Yes DS: Admitting Diagnosis Discharge Date 12/22/24 Admitting Diagnosis Edema bilateral lower extremities DS: Discharge Diagnosis Discharge Diagnosis (1) Shock: Code(s): R57.9 - Shock, unspecified Status: Acute Assessment and Plan: Multifactorial. Likely secondary combination of sedation, questionable sepsis,? Cardiogenic Patient on Levophed, will switch it to phenylephrine due to significant tachycardia. Maintain MAP > 65 mmHg for adequate end organ perfusion -cardiomyopathy with EF of 30-35% -unable to start dobutamine for cardiogenic shock secondary to tachycardia/AFib RVR -patient has been accepted to [facility] cardiology for cardiomyopathy, evaluation of his mitral valve regurg and tricuspid valve regurg. Dr. Fernandes was the accepting physician 12/21: Patient continues to have fevers, T-max of 102.7? -12/21: Blood, sputum and urine cultures have been ordered -continue vancomycin, -discontinue Zosyn and will add meropenem(12/21) (2) Acute hypoxic respiratory failure: Code(s): J96.01 - Acute respiratory failure with hypoxia Status: Acute Assessment and Plan: Acute Respiratory failure secondary to congestive heart failure leading to pleural effusions and pulmonary edema. Patient also has bilateral atelectasis with questionable pneumonia 12/16 intubated and placed on mechanical ventilation Continue full mechanical ventilation support to prevent hypoxemia/hypercarbia and end organ damage. Chest x-ray and ABGs reviewed, ventilator adjusted Continue Lasix for diuresis 12/19/2024 status post LEFT thoracentesis by Interventional Radiology, removal of 1000 mL of yellow fluid Bronchodilators, Xopenex/Atrovent procalcitonin level was 0.4. MRSA screen was positive Blood cultures were done on 12/14 and 12/16 for and have been negative 12/19: sputum culture growing yeast Patient is sedated with fentanyl and Versed infusion, SAT and SBT daily CTA chest 12/17 IMPRESSION: No pulmonary embolus. No aortic dissection. Increasing bilateral pleural effusions with adjacent compressive atelectasis. Rim-enhancing fluid collection along the anterior abdominal wall measuring denser than simple fluid for which a perioperative seroma versus abscess (less likely) is suspected. Focused ultrasound may be performed for further evaluation. (3) Acute exacerbation of CHF (congestive heart failure): Qualifiers: Heart failure type: combined systolic and diastolic Qualified Code(s): I50.43 - Acute on chronic combined systolic (congestive) and diastolic (congestive) heart failure Code(s): I50.9 - Heart failure, unspecified Status: Acute Assessment and Plan: Patient was recently diagnosed with congestive heart failure with EF of 30-35 % and diastolic dysfunction. He was discharged on multiple medications but unfortunately was not taking any and was taking low-dose Lasix. Now presented with congestive heart failure with lower extremity edema, pleurall effusions which has been gradually getting worse now leading to intubation and mechanical ventilation -HOLDING Entresto due to hypotension - OFF pressors -Continue Lasix for diuresis -continue Jardiance per Cardiology -12/21 Started metoprolol per tube, may be able to discontinue amiodarone, cardiology is agreeable Echo Summary 1. Left ventricular chamber dimension is moderately enlarged. 2. Left ventricular systolic function is moderately reduced, estimated at 30- 35% 3. There is mildly increased left ventricular wall thickness. 4. The left ventricular diastolic function is abnormal. 5. Right ventricular chamber dimension is mildly enlarged. 6. Right ventricular systolic function is reduced. 7. Left atrial chamber dimension is mildly enlarged. 8. Right atrial chamber dimension is mildly enlarged. 9. There is severe mitral valve regurgitation. 10. There is severe tricuspid valve regurgitation. 11. Moderate pulmonary hypertension, estimated pulmonary arterial systolic pressure is 53 mmHg. (4) Elevated troponin: Code(s): R79.89 - Other specified abnormal findings of blood chemistry Status: Acute Assessment and Plan: Chronically elevated troponin levels. -discussed with cardiology regarding troponin elevations, patient will require ischemic workup but prior to that will have to stabilize the patient. They also recommended transferring patient to a tertiary center for higher level of care and evaluation of severe mitral valve and tricuspid valve regurgitation along with cardiomyopathy -continue aspirin Patient was not reporting any chest pain during the hospitalization prior to intubation (5) Atrial fibrillation: Qualifiers: Atrial fibrillation type: unspecified Qualified Code(s): I48.91 - Unspecified atrial fibrillation Code(s): I48.91 - Unspecified atrial fibrillation Status: Chronic Assessment and Plan: History of AFib in the chart but none of the past EKGs have shown AFib and also currently in sinus rhythm -patient does have a history of atrial fibrillation per family, has not been on anticoagulation due to affordability issues -currently in AFib RVR this morning with rates in the 140s. Treated with metoprolol with slow his rate down, but patient being hypotensive. Discussed with Cardiology, will start amiodarone infusion -also started patient on heparin infusion (12/20) -continue amiodarone, -started metoprolol this morning (6) Hyperlipidemia: Code(s): E78.5 - Hyperlipidemia, unspecified Status: Chronic Assessment and Plan: Continue rosuvastatin (7) Bilateral pleural effusion: Code(s): J90 - Pleural effusion, not elsewhere classified Status: Acute Assessment and Plan: Left pleural effusion was drained by IR with removal of 1000 mL of yellow fluid -cultures are negative so far (8) Pneumonia: Qualifiers: Laterality: bilateral Lung location: lower lobe of lung Pneumonia type: due to unspecified organism Qualified Code(s): J18.9 - Pneumonia, unspecified organism Code(s): J18.9 - Pneumonia, unspecified organism Status: Acute Assessment and Plan: Continue antibiotics as above (9) Substance abuse: Code(s): F19.10 - Other psychoactive substance abuse, uncomplicated Status: Chronic Assessment and Plan: Long History of drug abuse including cocaine could be the etiology of his congestive heart failure. (10) Abdominal fluid collection: Code(s): R18.8 - Other ascites Status: Acute Assessment and Plan: 12/17: CT scan of the abdomen shows Rim-enhancing fluid collection along the anterior abdominal wall measuring denser than simple fluid for which a perioperative seroma versus abscess (less likely) is suspected. Focused ultrasound may be performed for further evaluation.. Patient had abdominal surgery for umbilical hernia and small-bowel obstruction -Patient was evaluated by General surgery and surgeon feels that this is likely a seroma. - 12/19: Ultrasound-guided drain placement of the abdominal wall seroma by Interventional Radiology -Continue antibiotics as above (11) Lower extremity edema: Code(s): R60.0 - Localized edema Status: Acute Assessment and Plan: Likely secondary to congestive heart failure. 12/18: Venous Dopplers of bilateral lower extremities were negative for DVT Plan DVT prophylaxis -heparin infusion Stress ulcer prophylaxis -PPI Nutrition -tolerating Tube Feeds Code Status - Full Code . Transfer Discharge Sum: Med Medications Active and Home Medications: Home Medications aspirin 81 mg chewable tablet 81 mg PO DAILY 08/23/24 [History Confirmed 12/15/24] cholecalciferol (vitamin D3) 50 mcg (2,000 unit) capsule 2,000 unit PO DAILY 08/23/24 [History Confirmed 12/15/24] furosemide 40 mg tablet 40 mg PO DAILY #30 tabs 08/28/24 [Rx Confirmed 12/15/24] metoprolol succinate 100 mg tablet,extended release 24 hr (Toprol XL) 100 mg PO QAM #60 tabs 08/28/24 [Rx Confirmed 12/15/24] potassium chloride 20 mEq oral packet 20 meq PO DAILY #30 ea 08/28/24 [Rx Confirmed 12/15/24] rosuvastatin 20 mg tablet (Crestor) 10 mg (1/2 x 20 mg) PO HS #30 tabs 08/28/24 [Rx Confirmed 12/15/24] empagliflozin 10 mg tablet 10 mg PO DAILY #30 tabs 10/22/24 [Rx Confirmed 12/15/24] sacubitril 24 mg-valsartan 26 mg tablet (Entresto) 1 tab PO Q12HR #30 tabs 10/22/24 [Rx Confirmed 12/15/24] Transfer Discharge Sum: Hosp Hospital Course Hospital course: Js Contreras is a 74 year old male patient presented with dyspnea was found to have b/l pleural effusion, and patient was diuresed with IV lasix 40MG BID however patient went to respiratory failure and patient was intubated, cardiac echo showed moderately reduced left ventricular systolic dysfunction, seen by the polysomnography technician suspect patient has acute on chronic systolic heart failure. recommended to continue to diuresed the patient. on 12/19 patient had thoracentesis, and 1000cc yellow fluid was collected, ph of the fluid is 7.44 and pleural Nuc cells are 441 within normal limits suggesting transudate from CHF, patient has swelling along abdomen, seen by surgery suspect has seroma, fluid is sent for culture, patient is being diuresed, patient is seen by the overcoil stepper. patient son is present in the room. patient with cardiogenic shock intesivist was unable to start dobutamine 2/2 tachycardia with Ashish Ward RVR, the overcoil stepper spoke with Dr. Fernandes at [facility] for evaluation for cardiomyopathy and his mitral valve regurg as well as trucuspid valve regurg. Patient Condition: Stable Time Spent with Patient Time attestation: Total time spent providing and/or coordinating transfer services: Exam Narrative: Patient is comfortable, NAD HEENT: ET tube in place LUNGS:CTA HEART: RR S1S2 ABD: BS+, Soft and nontender Lower extremities: no edema SKIN: nonjaundiced Neuro: Intubated and sedated DS: Data Data Completed and Pending Labs on day of discharge: Preliminary micro results at discharge 12/21/24 10:20 Blood Culture - Preliminary Blood 12/21/24 10:26 Blood Culture - Preliminary Blood
== END 2024-12-22 00:10 | disposition short-term general hospital (02) | DRG 207 ==
LOC: ANHED 21:00 → ANH3MEDSUR 22:00 → ANHICU 12-17 00:15
PROVIDERS: Internal Medicine; Nurse Practitioner Adult Health; Nurse Practitioner Gerontology; Physician Assistant; Admitting Provider Internal Medicine; Emergency Provider Student in an Organized Health Care Education/Training Program; Visit Provider Family Medicine
DX: J96.21 Acute and chronic respiratory failure with hypoxia (principal); I50.43 Acute on chronic combined systolic (congestive) and diastolic (congestive) heart failure; J18.9 Pneumonia, unspecified organism; R57.0 Cardiogenic shock; I42.9 Cardiomyopathy, unspecified; K91.873 Postprocedural seroma of a digestive system organ or structure following other procedure; I11.0 Hypertensive heart disease with heart failure; E78.5 Hyperlipidemia, unspecified; I48.91 Unspecified atrial fibrillation; F10.20 Alcohol dependence, uncomplicated; F14.10 Cocaine abuse, uncomplicated; E55.9 Vitamin D deficiency, unspecified; G47.30 Sleep apnea, unspecified; I34.0 Nonrheumatic mitral (valve) insufficiency; I27.20 Pulmonary hypertension, unspecified; K70.31 Alcoholic cirrhosis of liver with ascites; I36.1 Nonrheumatic tricuspid (valve) insufficiency; Z99.81 Dependence on supplemental oxygen; Z91.141 Patient's other noncompliance with medication regimen due to financial hardship; Z22.322 Carrier or suspected carrier of Methicillin resistant Staphylococcus aureus
CPT/HCPCS: 10160; 32555; 36415; 36600; 70450; 71045; 71275; 74174; 80053; 80202; 81001; 82042; 82375; 82805; 82945; 82948; 83050; 83605; 83615; 83735; 83880; 83986; 84100; 84145; 84484; 85018; 85025; 85027; 85380; 85610; 85730; 86850; 86900; 86901; 87040; 87070; 87075; 87086; 87205; 87641; 89051; 93005; 93970; 94002; 94003; 94640; 96374; 99291; A9270; C1729; C1751; C8929; J0168; J0282; J0456; J0616; J0696; J1644; J1650; J1938; J2185; J2250; J2371; J2470; J2543; J3010; J3373; J3480; J7050; P9047; Q9957; Q9967

== ENCOUNTER 2025-05-22 19:38 | Emergency (ER) | payer MEDICARE, SELFPAY ==
--- NOTE | ~2025-05-22 | XR_ITS ---
EXAMINATION: XR chest 1V portable DATE: 05/23/2025 01:11 INDICATION: Short of breath TECHNIQUE: A single frontal view of the chest was obtained. COMPARISON: December 21, 2024 FINDINGS: Small to moderate bilateral pleural effusions left worse than right with consolidative changes in lung bases probably representing pulmonary edema, although aspiration or pneumonia could also be present. Upper lung white clear. Heart shadow mildly enlarged. No pneumothorax or subphrenic free air. IMPRESSION: 1. Bilateral effusions with probable pulmonary edema and atelectatic changes; pneumonia could also be present. Reviewed, dictated and finalized at location A. UTATOR REPAIRER IMPRESSION: 1. Bilateral effusions with probable pulmonary edema and atelectatic changes; p neumonia could also be present.
--- NOTE | ~2025-05-22 | CT_ITS ---
EXAMINATION: CTA chest PE protocol DATE: 05/23/2025 02:18 INDICATION: Shortness of breath. Hypoxia. TECHNIQUE: Computed tomography angiography (CTA) of the chest was performed with 100 mL Omnipaque-350 intravenous contrast timed to evaluate the pulmonary arteries. Coronal maximum intensity projection 3D-reconstructions were created by the technologist. Automated exposure control and iterative reconstruction technique were employed. The dose-length product was 564.54 mGy-cm. COMPARISON: Chest CT 12/17/2024 FINDINGS: There is septal thickening in the lungs, consistent with mild pulmonary edema. There are moderate-sized right and large left pleural effusions. There are airspace opacities in the lungs with a dependent predominance, likely atelectasis. Cardiomegaly is noted. There are coronary artery calcifications. No pericardial effusion. There is no pulmonary embolus. Calcifications in the liver and spleen are consistent with old granulomatous disease. There is mild thoracic spondylosis. IMPRESSION: 1. Mild pulmonary edema. 2. Moderate-sized right and large left pleural effusions. 3. No pulmonary embolus. Reviewed, dictated and finalized at location E. WORKER
[2025-05-22 20:00] VITALS: BP 151/96; PULSE 62; RESP 14; TEMP 36.3; O2SAT 88
--- OUTSIDE RECORDS SUMMARY | 2025-05-22 20:42 | XMS_ITS | Clinical Summary ---
Author Organization [facility] Address [address] [place] [address] Phone Care Team Providers Care Auto Accessories Installer Name Role Phone Chris Tolentino MD Unavailable [phone] Terra Pineda MD Unavailable Provider, None Primary [...] Covid-19 Vaccine, Vector-nr, Rs-ad26, Pf, 0.5 Ml ([employer]) 08/23/2020 Hepatitis A And Hepatitis B Vaccine [...] Comments Hepatitis C Virus (HCV) Screening 1950 Zoster Immunization (2 of 3) 12/29/2013 11/03/2013 Medicare Initial AWV [id number] 05/15/2018 Respiratory Syncytial Virus (RSV) Immunization (Adult) (1 - 1-dose 75+ series) 02/11/2024 Influenza Immunization (#1) 02/13/202507/2019, 03/23/2018, 03/20/2017 SARS-COV-2 Immunization (2 - season) 2025 08/23/2020 DTaP/Tdap/Td Immunization Discontinued 02/02/2012 Pneumococcal Immunization [...] to complete this topic Insurance [facility]IC[facility] [place] [facility] Care Teams Auto Accessories Installer Relationship Specialty Start Date End Date Provider, None [place] PCP - General 05/10/21 Chris Tolentino MD Consulting Physician Orthopaedic Sports Medicine 04/07/18 Terra Pineda MD [address] [place] [address] Consulting Physician Internal Medicine 04/07/18
[2025-05-22 22:04] VITALS: BP 140/95; PULSE 65; TEMP 36.4; O2SAT 85
[2025-05-23] VITALS: O2SAT 95
--- NOTE | 2025-05-23 00:34 | ECG_ITS ---
Test Date: 2025-05-23 01:49:05 Measurements Intervals Dawson Rate: 101 P: 0 AL: 0 QRS: 136 QRSD: 149 T: -72 QT: 360 QTc: 468 Interpretive Statements ATRIAL FLUTTER/TACHYCARDIA WITH RAPID VENTRICULAR RESPONSE RIGHT BUNDLE BRANCH BLOCK LEFT POSTERIOR FASCICULAR BLOCK ST-T WAVE ABNORMALITY IN INFERIOR LEADS- CONSIDER ISCHEMIA BASELINE ARTIFACT- I, II, III, AVR, AVL, AVF, V4-V5 ABNORMAL ECG Compared to ECG 12/20/2024 07:55:29 HEART RATE HAS DECREASED Possible ischemia now present Electronically Signed On 05-23-2025 06:29:15 COMPOSING MACHINE OPERATOR by Sahil Guerra D.O.
[2025-05-23 00:54] LABS: Hematocrit 44.8 % (42.0-52.0); Hemoglobin 13.2 g/dL (14.0-18.0); Immature Granulocyte Percent A 0.2 % (0-0.5); Lymphocytes Absolute Auto 2.03 K/mm3 (0.9-3.2); Mean Corpuscular HGB Conc 29.5 g/dl (32-36); Mean Corpuscular Hemoglobin 25.6 pg (26-34); Mean Corpuscular Volume 87.0 fl (80-100); Nucleated Red Blood Cells Absolute Auto 0.000 K/mm3 (0.0-0.012); Nucleated Red Blood Cells Perc 0.0 % (0.0-0.2); Platelet Count Result 217 k/mm3 (150-375); Red Blood Count 5.15 M/mm3 (4.6-6.20); White Blood Count 9.5 K/mm3 (4.5-10.0)
--- NOTE | 2025-05-23 01:03 | ED.SOB ---
HPI - SOB/Dyspnea General Chief Complaint: Shortness of Breath/Dyspnea <Mildred Lara PA-C - Last Filed: 05/23/25 04:45> Stated Complaint: multiple medical complaints <FRANKO Vazquez Last Filed: 05/23/25 04:45> Time Seen by Provider: 05/23/25 00:51 <FRANKO Vazquez Last Filed: 05/23/25 04:45> Source: patient <FRANKO Vazquez Last Filed: 05/23/25 04:45> Mode of arrival: ambulatory <FRANKO Vazquez Last Filed: 05/23/25 04:45> Limitations: no limitations <FRANKO Vazquez Last Filed: 05/23/25 04:45> History of Present Illness HPI Narrative: This is a 75-year-old male that presents to the emergency department for shortness of breath. Worsening over the last week. Reports he normally only needs oxygen at night. Currently on 3 L nasal cannula. Denies chest pain. Reports he has not been taking his Lasix as prescribed <FRANKO Vazquez Last Filed: 05/23/25 04:45> Related Data Home Medications: Home Medications ?Medication ?Instructions ?Recorded ?Confirmed ?Last Taken ?Type aspirin 81 mg chewable tablet 81 mg PO DAILY 08/23/24 12/15/24 10/20/24 History cholecalciferol (vitamin D3) 50 2,000 unit PO DAILY 08/23/24 12/15/24 10/20/24 History mcg (2,000 unit) capsule <FRANKO Vazquez Last Filed: 05/23/25 04:45> Allergies/Adverse Reactions: Allergies Allergy/AdvReac Type Severity Reaction Status Date / Time No Known Drug Allergies Allergy Other Verified 12/05/24 17:47 <FRANKO Vazquez Last Filed: 05/23/25 04:45> Review of Systems Review of Systems: All systems reviewed & are unremarkable except as noted in HPI and below <FRANKO Vazquez Last Filed: 05/23/25 04:45> [facility] Past Medical History Medical History: Medical History Noncompliance with treatment Eczema Sleep apnea Hypertension Hyperlipidemia Vitamin D deficiency Substance abuse Atrial fibrillation Congestive heart failure <Mildred Lara PA-C - Last Filed: 05/23/25 04:45> Surgical History Surgical History: Surgical History History of umbilical hernia repair robotic assisted repair incarcerated umbilical hernia measuring 4.5 cm, myofascial release x2 H/O hemorrhoidectomy History of appendectomy History of carpal tunnel release <Mildred Lara PA-C - Last Filed: 05/23/25 04:45> Family History Family History: Family History Mother Parkinson disease Father Alcohol abuse <Mildred Lara PA-C - Last Filed: 05/23/25 04:45> Social History Social History: Social History Social History: Lives with grand daughter (13 year old) 1 dog Smoking status: Never smoker Second hand tobacco smoke exposure: Yes Alcohol intake: former Drinks per week: 2 Substance use: current Substance use type: marijuana and crack/cocaine Other substance usage details: once in while, last used 2 weeks ago Lack of Transportation: No Lack of Food: Never True Current Housing: I Have Housing Concerned About Future Housing: No Difficulty Paying Gas/Electric Bills: No Difficulty Paying for Meds: No Currently Unemployed: No Education: High School Diploma/GED Difficulty w/ Childcare or Family Care: No Spiritual care concerns: No <Mildred Lara PA-C - Last Filed: 05/23/25 04:45> Exam Narrative: GENERAL: Chronically ill-appearing, well-nourished, and in no acute distress. HEAD: Normocephalic, atraumatic. EYES: EOMI. ENT: Nares clear, no rhinorrhea or epistaxis. Mucous membranes moist. Oropharynx without tonsillar hypertrophy exudate or other lesions. CHEST: No respiratory distress. Rales in the bilateral mid to lower lung zones. No wheezes or rhonchi HEART: Regular rate and rhythm. No murmur heard. Normal peripheral pulses. ABDOMEN: Soft, nontender, nondistended, normal active bowel sounds. EXTREMITIES: Normal range of motion. No edema. SKIN: Warm, dry, no rash. NEURO: No focal deficits. Alert and oriented x3. PSYCH: Normal mood and affect <Mildred Lara PA-C - Last Filed: 05/23/25 04:45> Course Consultations Hospitalist: Time of Consult: 04:06 <FRANKO Vazquez Last Filed: 05/23/25 04:45> I have discussed the care of this patient with the following provider: Dr. Cox, recommends consult with lead printer, probable need for transfer <Mildred Lara PA-C - Last Filed: 05/23/25 04:45> lead printer: Time of Consult: 04:10 <FRANKO Vazquez Last Filed: 05/23/25 04:45> I have discussed the care of this patient with the following provider: Dr. Browning, recommends transfer for higher level of care <FRANKO Vazquez Last Filed: 05/23/25 04:45> Vital Signs Vital signs: Vital Signs Temperature 97.3 F L 05/22/25 20:00 Pulse Rate 62 05/22/25 20:00 Respiratory Rate 14 05/22/25 20:00 Blood Pressure 151/96 H 05/22/25 20:00 Pulse Oximetry 88 L 05/22/25 20:00 Oxygen Delivery Room Air 05/22/25 20:00 Temperature 97.5 F L 05/22/25 22:04 Pulse Rate 95 05/23/25 06:04 Respiratory Rate 12 05/23/25 06:04 Blood Pressure 140/95 H 05/22/25 22:04 Pulse Oximetry 93 05/23/25 06:04 Oxygen Delivery CPAP 05/23/25 06:04 <FRANKO Vazquez Last Filed: 05/23/25 04:45> Vital Signs Temperature 97.3 F L 05/22/25 20:00 Pulse Rate 62 05/22/25 20:00 Respiratory Rate 14 05/22/25 20:00 Blood Pressure 151/96 H 05/22/25 20:00 Pulse Oximetry 88 L 05/22/25 20:00 Oxygen Delivery Room Air 05/22/25 20:00 Temperature 97.5 F L 05/22/25 22:04 Pulse Rate 95 05/23/25 06:04 Respiratory Rate 12 05/23/25 06:04 Blood Pressure 140/95 H 05/22/25 22:04 Pulse Oximetry 93 05/23/25 06:04 Oxygen Delivery CPAP 05/23/25 06:04 <Vance Sanders MD - Last Filed: 05/23/25 06:20> [facility] MDM Narrative Medical decision making narrative: Patient presents the emergency department for shortness of breath, worsening over the last week. Reporting noncompliance with Lasix. Patient with rales on exam. Oxygen saturation in the upper 80s on room air. He was on 4 L nasal cannula and did tolerate this for a while. However he did start to decompensate and was placed on BiPAP. He is afebrile. Blood pressure and heart rate stable. Cbc without leukocytosis. Metabolic panel with kidney function that is around his baseline. Lactic is not elevated. BNP 06175. Influenza, RSV and COVID screens are negative. CTA chest PE without evidence of PE. Does show large bilateral pleural effusions. Hospitalist and lead printer are recommending transfer to the [facility] system for higher level of care <Mildred Lara PA-C - Last Filed: 05/23/25 04:45> Patient presents the emergency department for shortness of breath, worsening over the last week. Reporting noncompliance with Lasix. Patient with rales on exam. Oxygen saturation in the upper 80s on room air. He was on 4 L nasal cannula and did tolerate this for a while. However he did start to decompensate and was placed on BiPAP. He is afebrile. Blood pressure and heart rate stable. Cbc without leukocytosis. Metabolic panel with kidney function that is around his baseline. Lactic is not elevated. BNP 09864. Influenza, RSV and COVID screens are negative. CTA chest PE without evidence of PE. Does show large bilateral pleural effusions. Hospitalist and lead printer are recommending transfer to the [facility] system for higher level of care --- Case was discussed with the lead printer at [facility] and patient was accepted for transfer. They did request the patient be transferred to CPAP prior to transport. Patient is tolerating CPAP well. Patient was also given a 2nd dose of Lasix prior to transport per request. We did attempt to shave the patient's. So there would better connection with the CPAP and less air leak. At time of sign-out patient does have a bed and transportation is arriving shortly. Patient was alert orientated and tolerating CPAP. <Vance Sanders MD - Last Filed: 05/23/25 06:20> Differential Diagnosis Differential Diagnosis: CHF, PE, pneumonia, COVID <Mildred Lara PA-C - Last Filed: 05/23/25 04:45> Medical Records I have reviewed the following patient records and this information was taken into consideration when formulating the assessment and plan.: previous labs and previous hospitalizations <Mildred Lara PA-C - Last Filed: 05/23/25 04:45> Lab Data MDM Lab Attestation statement: I personally reviewed the patient's lab results. <Mildred Lara PA-C - Last Filed: 05/23/25 04:45> Result diagrams: 05/23/25 00:48 05/23/25 00:48 <Mildred Lara PA-C - Last Filed: 05/23/25 04:45> Labs: Lab Results 05/23/25 05/23/25 05/23/25 Range/Units 00:48 01:28 02:59 WBC 9.5 (4.5-10.0) K/mm3 RBC 5.15 (4.6-6.20) M/mm3 Hgb 13.2 L (14.0-18.0) g/dL Hct 44.8 (42.0-52.0) % MCV 87.0 (80-100) fl MCH 25.6 L (26-34) pg MCHC 29.5 L (32-36) g/dl RDW 17.4 H (11.5-14.5) % Plt Count 217 (150-375) k/mm3 MPV 10.0 (7.4-10.4) fl Immature Gran % (Auto) 0.2 (0-0.5) % Neut % (Auto) 67.9 (45.5-73.1) % Lymph % (Auto) 21.5 (18.3-44.2) % [place] % (Auto) 9.8 H (2.6-8.5) % Eos % (Auto) 0.2 (0-4.4) % Baso % (Auto) 0.4 (0.2-1.2) % Lymph # (Auto) 2.03 (0.9-3.2) K/mm3 [place] # (Auto) 0.9 H (0.1-0.6) K/mm3 Eos # (Auto) 0.0 (0-0.3) K/mm3 Baso # (Auto) 0.0 (0.0-0.1) K/mm3 Abs Immat Gran (auto) 0.02 (0.00-0.031) K/mm3 Absolute Neuts (auto) 6.4 (1.3-6.7) K/mm3 Absolute Nucleated RBC 0.000 (0.0-0.012) K/mm3 Band Neutrophils % Not Reportable Nucleated RBC % 0.0 (0.0-0.2) % Platelet Estimate Adequate (Adequate) Anisocytosis 1+ Ovalocytes Occasional Norman Cells Occasional Schistocytes None seen PT 16.4 H (11.1-14.7) Seconds INR 1.3 APTT 32.7 (22.3-36.8) Seconds D-Dimer 6.89 H (<0.48) ug/mL Methemoglobin 0.4 (0-1.5) %THb Sodium 138 (137-145) mmol/L Potassium 4.9 (3.4-5.0) mmol/L Chloride 102 (98-107) mmol/L Carbon Dioxide 33 H (22-30) mmol/L Anion Gap 3 L (4-12) mmol/L BUN 58 H (9-20) mg/dL Creatinine 1.81 H (0.7-1.3) mg/dL Estim Creat Clear Calc 28 ml/min Estimated GFR 37 L (59 - ) Glucose 94 (65-110) mg/dL Lactic Acid 1.2 (0.7-2.0) mmol/L Calcium 8.5 (8.4-10.2) mg/dL Magnesium 1.7 (1.6-2.3) mg/dL Total Bilirubin 0.7 (0.2-1.3) mg/dL AST 34 (17-59) U/L ALT 13 (6-50) U/L Alkaline Phosphatase 124 (38-126) U/L Troponin I 0.248 H* (0.000-0.034) ng/mL NT-Pro-B Natriuret Pep 25827 H (19.9-100) pg/mL Total Protein 7.6 (6.3-8.2) g/dL Albumin 3.7 (3.5-5.1) g/dL Influenza A (RT-PCR) Negative (Negative) Influenza B (RT-PCR) Negative (Negative) RSV (RT-PCR) Negative (Negative) SARS-CoV-2 RNA (RT-PCR) Negative (Negative) 05/23/25 05/23/25 Range/Units 03:13 04:42 WBC (4.5-10.0) K/mm3 RBC (4.6-6.20) M/mm3 Hgb (14.0-18.0) g/dL Hct (42.0-52.0) % MCV (80-100) fl MCH (26-34) pg MCHC (32-36) g/dl RDW (11.5-14.5) % Plt Count (150-375) k/mm3 MPV (7.4-10.4) fl Immature Gran % (Auto) (0-0.5) % Neut % (Auto) (45.5-73.1) % Lymph % (Auto) (18.3-44.2) % [place] % (Auto) (2.6-8.5) % Eos % (Auto) (0-4.4) % Baso % (Auto) (0.2-1.2) % Lymph # (Auto) (0.9-3.2) K/mm3 [place] # (Auto) (0.1-0.6) K/mm3 Eos # (Auto) (0-0.3) K/mm3 Baso # (Auto) (0.0-0.1) K/mm3 Abs Immat Gran (auto) (0.00-0.031) K/mm3 Absolute Neuts (auto) (1.3-6.7) K/mm3 Absolute Nucleated RBC (0.0-0.012) K/mm3 Band Neutrophils % Nucleated RBC % (0.0-0.2) % Platelet Estimate (Adequate) Anisocytosis Ovalocytes Norman Cells Schistocytes PT (11.1-14.7) Seconds INR APTT (22.3-36.8) Seconds D-Dimer (<0.48) ug/mL Methemoglobin 0.3 (0-1.5) %THb Sodium (137-145) mmol/L Potassium (3.4-5.0) mmol/L Chloride (98-107) mmol/L Carbon Dioxide (22-30) mmol/L Anion Gap (4-12) mmol/L BUN (9-20) mg/dL Creatinine (0.7-1.3) mg/dL Estim Creat Clear Calc ml/min Estimated GFR (59 - ) Glucose (65-110) mg/dL Lactic Acid (0.7-2.0) mmol/L Calcium (8.4-10.2) mg/dL Magnesium (1.6-2.3) mg/dL Total Bilirubin (0.2-1.3) mg/dL AST (17-59) U/L ALT (6-50) U/L Alkaline Phosphatase (38-126) U/L Troponin I 0.261 H* (0.000-0.034) ng/mL NT-Pro-B Natriuret Pep (19.9-100) pg/mL Total Protein (6.3-8.2) g/dL Albumin (3.5-5.1) g/dL Influenza A (RT-PCR) (Negative) Influenza B (RT-PCR) (Negative) RSV (RT-PCR) (Negative) SARS-CoV-2 RNA (RT-PCR) (Negative) <Mildred Lara PA-C - Last Filed: 05/23/25 04:45> Lab Results 05/23/25 05/23/25 05/23/25 Range/Units 00:48 01:28 02:59 WBC 9.5 (4.5-10.0) K/mm3 RBC 5.15 (4.6-6.20) M/mm3 Hgb 13.2 L (14.0-18.0) g/dL Hct 44.8 (42.0-52.0) % MCV 87.0 (80-100) fl MCH 25.6 L (26-34) pg MCHC 29.5 L (32-36) g/dl RDW 17.4 H (11.5-14.5) % Plt Count 217 (150-375) k/mm3 MPV 10.0 (7.4-10.4) fl Immature Gran % (Auto) 0.2 (0-0.5) % Neut % (Auto) 67.9 (45.5-73.1) % Lymph % (Auto) 21.5 (18.3-44.2) % [place] % (Auto) 9.8 H (2.6-8.5) % Eos % (Auto) 0.2 (0-4.4) % Baso % (Auto) 0.4 (0.2-1.2) % Lymph # (Auto) 2.03 (0.9-3.2) K/mm3 [place] # (Auto) 0.9 H (0.1-0.6) K/mm3 Eos # (Auto) 0.0 (0-0.3) K/mm3 Baso # (Auto) 0.0 (0.0-0.1) K/mm3 Abs Immat Gran (auto) 0.02 (0.00-0.031) K/mm3 Absolute Neuts (auto) 6.4 (1.3-6.7) K/mm3 Absolute Nucleated RBC 0.000 (0.0-0.012) K/mm3 Band Neutrophils % Not Reportable Nucleated RBC % 0.0 (0.0-0.2) % Platelet Estimate Adequate (Adequate) Anisocytosis 1+ Ovalocytes Occasional Norman Cells Occasional Schistocytes None seen PT 16.4 H (11.1-14.7) Seconds INR 1.3 APTT 32.7 (22.3-36.8) Seconds D-Dimer 6.89 H (<0.48) ug/mL Methemoglobin 0.4 (0-1.5) %THb Sodium 138 (137-145) mmol/L Potassium 4.9 (3.4-5.0) mmol/L Chloride 102 (98-107) mmol/L Carbon Dioxide 33 H (22-30) mmol/L Anion Gap 3 L (4-12) mmol/L BUN 58 H (9-20) mg/dL Creatinine 1.81 H (0.7-1.3) mg/dL Estim Creat Clear Calc 28 ml/min Estimated GFR 37 L (59 - ) Glucose 94 (65-110) mg/dL Lactic Acid 1.2 (0.7-2.0) mmol/L Calcium 8.5 (8.4-10.2) mg/dL Magnesium 1.7 (1.6-2.3) mg/dL Total Bilirubin 0.7 (0.2-1.3) mg/dL AST 34 (17-59) U/L ALT 13 (6-50) U/L Alkaline Phosphatase 124 (38-126) U/L Troponin I 0.248 H* (0.000-0.034) ng/mL NT-Pro-B Natriuret Pep 04075 H (19.9-100) pg/mL Total Protein 7.6 (6.3-8.2) g/dL Albumin 3.7 (3.5-5.1) g/dL Influenza A (RT-PCR) Negative (Negative) Influenza B (RT-PCR) Negative (Negative) RSV (RT-PCR) Negative (Negative) SARS-CoV-2 RNA (RT-PCR) Negative (Negative) 05/23/25 05/23/25 Range/Units 03:13 04:42 WBC (4.5-10.0) K/mm3 RBC (4.6-6.20) M/mm3 Hgb (14.0-18.0) g/dL Hct (42.0-52.0) % MCV (80-100) fl MCH (26-34) pg MCHC (32-36) g/dl RDW (11.5-14.5) % Plt Count (150-375) k/mm3 MPV (7.4-10.4) fl Immature Gran % (Auto) (0-0.5) % Neut % (Auto) (45.5-73.1) % Lymph % (Auto) (18.3-44.2) % [place] % (Auto) (2.6-8.5) % Eos % (Auto) (0-4.4) % Baso % (Auto) (0.2-1.2) % Lymph # (Auto) (0.9-3.2) K/mm3 [place] # (Auto) (0.1-0.6) K/mm3 Eos # (Auto) (0-0.3) K/mm3 Baso # (Auto) (0.0-0.1) K/mm3 Abs Immat Gran (auto) (0.00-0.031) K/mm3 Absolute Neuts (auto) (1.3-6.7) K/mm3 Absolute Nucleated RBC (0.0-0.012) K/mm3 Band Neutrophils % Nucleated RBC % (0.0-0.2) % Platelet Estimate (Adequate) Anisocytosis Ovalocytes Norman Cells Schistocytes PT (11.1-14.7) Seconds INR APTT (22.3-36.8) Seconds D-Dimer (<0.48) ug/mL Methemoglobin 0.3 (0-1.5) %THb Sodium (137-145) mmol/L Potassium (3.4-5.0) mmol/L Chloride (98-107) mmol/L Carbon Dioxide (22-30) mmol/L Anion Gap (4-12) mmol/L BUN (9-20) mg/dL Creatinine (0.7-1.3) mg/dL Estim Creat Clear Calc ml/min Estimated GFR (59 - ) Glucose (65-110) mg/dL Lactic Acid (0.7-2.0) mmol/L Calcium (8.4-10.2) mg/dL Magnesium (1.6-2.3) mg/dL Total Bilirubin (0.2-1.3) mg/dL AST (17-59) U/L ALT (6-50) U/L Alkaline Phosphatase (38-126) U/L Troponin I 0.261 H* (0.000-0.034) ng/mL NT-Pro-B Natriuret Pep (19.9-100) pg/mL Total Protein (6.3-8.2) g/dL Albumin (3.5-5.1) g/dL Influenza A (RT-PCR) (Negative) Influenza B (RT-PCR) (Negative) RSV (RT-PCR) (Negative) SARS-CoV-2 RNA (RT-PCR) (Negative) <Vance Sanders MD - Last Filed: 05/23/25 06:20> ABG Data ABG results: 05/23/25 05/23/25 02:59 03:13 Puncture Site Right radial Right brachial ABG pH 7.234 L* 7.229 L* ABG pCO2 86.1 H* 65.3 H* ABG pO2 28.3 L* 53.1 L ABG PO2/FiO2 Ratio 0.79 1.47 ABG HCO3 35.6 H 26.7 H ABG O2 Saturation 40.7 L* 80.2 L* ABG O2 Content 9.1 L 14.7 L ABG Base Excess 4.8 -2.1 A-a Gradient 128.5 127.8 Oxyhemoglobin 44.6 L* 82.1 L* Carboxyhemoglobin 1.3 1.3 Reduced Hemoglobin 53.7 H 16.3 H Total Hemoglobin 14.5 12.7 O2 Delivery Device Nasal cannula Nasal cannula O2 Liters/Min 4.0 4.0 FiO2 36 36 <Mildred Lara PA-C - Last Filed: 05/23/25 04:45> 05/23/25 05/23/25 02:59 03:13 Puncture Site Right radial Right brachial ABG pH 7.234 L* 7.229 L* ABG pCO2 86.1 H* 65.3 H* ABG pO2 28.3 L* 53.1 L ABG PO2/FiO2 Ratio 0.79 1.47 ABG HCO3 35.6 H 26.7 H ABG O2 Saturation 40.7 L* 80.2 L* ABG O2 Content 9.1 L 14.7 L ABG Base Excess 4.8 -2.1 A-a Gradient 128.5 127.8 Oxyhemoglobin 44.6 L* 82.1 L* Carboxyhemoglobin 1.3 1.3 Reduced Hemoglobin 53.7 H 16.3 H Total Hemoglobin 14.5 12.7 O2 Delivery Device Nasal cannula Nasal cannula O2 Liters/Min 4.0 4.0 FiO2 36 36 <Vance Sanders MD - Last Filed: 05/23/25 06:20> Imaging Data Radiologist's impression: CTA chest PE: No large or central pulmonary embolism. Probable CHF exacerbation versus volume overload. Large pleural effusions. Correlate for concomitant pneumonia or aspiration <FRANKO Vazquez Last Filed: 05/23/25 04:45> Critical Care Time Critical Care Time Critical Care Time: Yes <FRANOK Vazquez Last Filed: 05/23/25 04:45> Time Type: Intermittent <FRANKO Vazquez Last Filed: 05/23/25 04:45> Initial evaluation, discuss w/ involved parties, attempting to gather old records: 10 minutes <Mildred Lara PA-C - Last Filed: 05/23/25 04:45> Documenting medical record: 10 minutes <Mildred Lara PA-C - Last Filed: 05/23/25 04:45> Review of results (EKG's, labs, imaging): 10 minutes <Mildred Lara PA-C - Last Filed: 05/23/25 04:45> Serial repeat bedside evaluation: 20 minutes <Mildred Lara PA-C - Last Filed: 05/23/25 04:45> Discussing case with multiple memebers of the care team and consultants: 10 minutes <Mildred Lara PA-C - Last Filed: 05/23/25 04:45> Total Critical Care Time: 60 <Mildred Lara PA-C - Last Filed: 05/23/25 04:45> 60 <Vance Sanders MD - Last Filed: 05/23/25 06:20> Discharge Plan Discharge Clinical Impression: Pleural effusion Acute CHF Qualifiers: Heart failure type: unspecified Qualified Code(s): I50.9 - Heart failure, unspecified <Mildred Lara PA-C - Last Filed: 05/23/25 04:45> Patient Disposition: Acute Care Hospital <Mildred Lara PA-C - Last Filed: 05/23/25 04:45> Condition: Serious <Mildred Lara PA-C - Last Filed: 05/23/25 04:45> Patient Language: Spanish <FRANKO Vazquez Last Filed: 05/23/25 04:45> Prescriptions: No Action Entresto 24-26 mg Tablet 1 tab PO Q12HR Qty: 30 0RF empagliflozin 10 mg tablet 10 mg PO DAILY Qty: 30 0RF aspirin 81 mg tablet,chewable 81 mg PO DAILY cholecalciferol (vitamin D3) 50 mcg (2,000 unit) capsule 2,000 unit PO DAILY furosemide 40 mg Tablet 40 mg PO DAILY Qty: 30 1RF metoprolol succinate [Toprol XL] 100 mg Tablet Extended Release 24 Hr 100 mg PO QAM Qty: 60 0RF potassium chloride 20 mEq Packet 20 meq PO DAILY Qty: 30 0RF rosuvastatin [Crestor] 20 mg tablet 10 mg PO HS Qty: 30 0RF <Mildred Lara PA-C - Last Filed: 05/23/25 04:45> Follow-up/Referrals: [facility] [Primary Care Provider, Medical] <Mildred Lara PA-C - Last Filed: 05/23/25 04:45>
[2025-05-23 01:06] LABS: INR 1.3; Partial Thromboplastin Time 32.7 Seconds (22.3-36.8); Prothrombin Time 16.4 Seconds (11.1-14.7)
[2025-05-23 01:10] LABS: Alanine Aminotransferase 13 U/L (6-50); Albumin Level 3.7 g/dL (3.5-5.1); Alkaline Phosphatase 124 U/L (38-126); Anion Gap 3 mmol/L (4-12); Aspartate Amino Transferase 34 U/L (17-59); Bilirubin,Total 0.7 mg/dL (0.2-1.3); Blood Urea Nitrogen 58 mg/dL (9-20); Calcium 8.5 mg/dL (8.4-10.2); Carbon Dioxide 33 mmol/L (22-30); Chloride 102 mmol/L (98-107); Estimated CRCL calculation 28 ml/min; Estimated Glomerular Filt Rate 37; Glucose 94 mg/dL (65-110); Magnesium 1.7 mg/dL (1.6-2.3); Potassium 4.9 mmol/L (3.4-5.0); Sodium 138 mmol/L (137-145); Total Protein 7.6 g/dL (6.3-8.2)
[2025-05-23 01:17] LABS: Anisocytosis 1+
[2025-05-23 01:18] LABS: Burr Cells Occasional; Ovalocytes Occasional; Schistocytes None Seen
[2025-05-23 01:19] LABS: Troponin I 0.248 ng/mL (0.000-0.034)
[2025-05-23 01:23] LABS: NT Pro B Type Natriuretic Pept 18600 pg/mL (19.9-100)
[2025-05-23] MEDS: FUROSEMIDE INJ 40 MG/4 ML VIAL IV PUSH (01:38)
[2025-05-23 02:08] LABS: Influenza A QL RT-PCR Negative (Negative); Influenza B QL RT-PCR Negative (Negative); RSV RNA, RT-PCR Negative (Negative); SARS-CoV-2 RNA PCR Negative (Negative)
[2025-05-23 03:05] LABS: Alveolar/Arterial O2 Gradient 128.5 mmHg; Carboxyhemoglobin 1.3 % THb (0-2.0); Fractional Inspired Oxygen 36 %; HCO3 ABG 35.6 mEq/l (22.0-26.0); Methemoglobin ABG 0.4 %THb (0-1.5); Oxygen Content ABG 9.1 %vol (16.0-22.0); PO2 FiO2 Ratio Arterial Blood 0.79 %; Reduced Hemoglobin 53.7 %THb (0-5.0)
[2025-05-23 03:09] LABS: PCO2 ABG 86.1 mmHg (35.0-45.0); PO2 ABG 28.3 mmHg (80.0-100.0)
[2025-05-23 03:10] LABS: Oxygen Saturation ABG 40.7 % (95.0-100.0)
[2025-05-23 03:11] LABS: Liters per Minute 4.0 LPM; Modified Allen's Test Pass; Site Drawn RIGHT RADIAL
[2025-05-23 03:25] LABS: Alveolar/Arterial O2 Gradient 127.8 mmHg; Carboxyhemoglobin 1.3 % THb (0-2.0); Fractional Inspired Oxygen 36 %; HCO3 ABG 26.7 mEq/l (22.0-26.0); Methemoglobin ABG 0.3 %THb (0-1.5); Oxygen Content ABG 14.7 %vol (16.0-22.0); PO2 ABG 53.1 mmHg (80.0-100.0); PO2 FiO2 Ratio Arterial Blood 1.47 %; Reduced Hemoglobin 16.3 %THb (0-5.0)
[2025-05-23 03:28] LABS: PCO2 ABG 65.3 mmHg (35.0-45.0)
[2025-05-23 03:29] LABS: Oxygen Saturation ABG 80.2 % (95.0-100.0)
[2025-05-23 03:31] LABS: Liters per Minute 4.0 LPM; Modified Allen's Test Pass; Site Drawn RIGHT BRACHIAL
[2025-05-23 04:06] VITALS: PULSE 102; RESP 15; O2SAT 93
--- NOTE | 2025-05-23 04:09 | ECG_ITS ---
Test Date: 2025-05-23 04:21:05 Measurements Intervals [place] Rate: 96 P: 0 WA: 0 QRS: 124 QRSD: 159 T: -66 QT: 389 QTc: 494 Interpretive Statements ATRIAL FLUTTER/TACHYCARDIA RIGHT BUNDLE BRANCH BLOCK LEFT POSTERIOR FASCICULAR BLOCK BASELINE ARTIFACT- I, II, III ABNORMAL ECG Compared to ECG 05/23/2025 01:49:05 No significant changes Electronically Signed On 05-23-2025 06:11:07 PROSTHETICS TECHNICIAN by Sahil Guerra D.O.
[2025-05-23] MEDS: AZITHROMYCIN IV 500 MG in SODIUM CHLORIDE 0.9% IV 250 ML IVPB (05:10)
[2025-05-23] MEDS: cefTRIAXone 1 GM in SODIUM CHLORIDE 0.9% IV 50 ML 100 ML IVPB (05:13)
[2025-05-23 05:18] LABS: Troponin I 0.261 ng/mL (0.000-0.034)
[2025-05-23 05:19] VITALS: PULSE 101; RESP 20; O2SAT 93
[2025-05-23] MEDS: SACUBITRIL/VALSARTAN 49-51 MG TABLET 1 TABLET PO (05:26)
[2025-05-23 06:04] VITALS: PULSE 95; RESP 12; O2SAT 93
[2025-05-23 06:20] VITALS: PULSE 92; RESP 23; O2SAT 93
--- NOTE | 2025-05-23 06:55 | ECG_ITS ---
Test Date: 2025-05-23 07:20:50 Measurements Intervals [place] Rate: 91 P: 252 CO: 192 QRS: 139 QRSD: 157 T: -61 QT: 388 QTc: 477 Interpretive Statements ATRIAL FLUTTER/TACHYCARDIA RIGHT BUNDLE BRANCH BLOCK LEFT POSTERIOR FASCICULAR BLOCK BASELINE ARTIFACT- I, II, AVR, AVL, AVF ABNORMAL ECG Compared to ECG 05/23/2025 04:21:05 NO SIGNIFICANT CHANGE Electronically Signed On 05-23-2025 07:57:28 EMS HELICOPTER PILOT by Sahil Guerra D.O.
--- NOTE | 2025-05-23 07:14 | PC.NURSE ---
took patient report at 0722
[2025-05-23 07:30] LABS: Troponin I 0.269 ng/mL (0.000-0.034)
--- NOTE | 2025-05-23 07:43 | PC.NURSE ---
Spoke to OTONIEL Rollins at [facility] to give her the 6 hour troponin results
[2025-05-23 08:08] VITALS: BP 101/68; PULSE 95; RESP 20; O2SAT 95
--- NOTE | 2025-05-23 08:23 | PC.NURSE ---
Called OTONIEL Rollins to inform her the patient is on the way.
== END 2025-05-23 08:24 | disposition short-term general hospital (02) ==
PROVIDERS: Emergency Medicine; Emergency Provider Physician Assistant
DX: I11.0 Hypertensive heart disease with heart failure (principal); I50.9 Heart failure, unspecified; Z20.822 Contact with and (suspected) exposure to COVID-19; J90 Pleural effusion, not elsewhere classified; I48.91 Unspecified atrial fibrillation; E78.5 Hyperlipidemia, unspecified; G47.30 Sleep apnea, unspecified; R94.31 Abnormal electrocardiogram [ECG] [EKG]; Z77.22 Contact with and (suspected) exposure to environmental tobacco smoke (acute) (chronic); Z79.82 Long term (current) use of aspirin; Z79.899 Other long term (current) drug therapy
CPT/HCPCS: 36415; 36600; 71045; 71275; 80053; 82375; 82805; 83050; 83605; 83735; 83880; 84484; 85018; 85025; 85380; 85610; 85730; 87040; 87637; 93005; 94002; 96361; 96365; 96366; 96375; 99285; A9270; J0456; J0696; J1938; J7050; Q9967